=== PATIENT | female | born 1960 | race Caucasian/White ===

== ENCOUNTER 2017-08-02 11:11 | Emergency (ER) | payer OTHER, SELFPAY ==
[2017-08-02 11:12] VITALS: BP 159/83; PULSE 59; RESP 16; TEMP 36.8; O2SAT 99; BMI 38.4
[2017-08-02] MEDS: 0.9% Normal Saline 1,000 ML 1000 ML IV (12:23)
[2017-08-02] MEDS: Metoclopramide 10 MG/2 ML Vial IV (12:23)
[2017-08-02 12:35] LABS: Anion Gap 14 (5-15); BUN 41 mg/dL (7-18); BUN/Creat Ratio 16.1 RATIO (10-20); Calcium,Total 8.9 mg/dL (8.5-10.1); Chloride 100 mmol/L (98-107); Creatinine, Serum 2.55 mg/dL (0.55-1.02); EST Glomerular Filtration Rate 21 mL/min (>60); Est Glom Filt Rate - Afr Amer 25 mL/min (>60); Estimated Creatinine Clearance 19.72 ml/min; Glucose 142 mg/dL (74-106); Potassium 3.5 mmol/L (3.5-5.1); Sodium Level 135 mmol/L (136-145)
--- NOTE | 2017-08-02 15:01 | ED.DCSUM_ITS ---
- ER Visit Summary Date of Service: 08/02/17 Chief Complaint: Abdominal pain with nausea, vomiting diarrhea History of Present Illness: The patient is a [address] of type I diabetes, hypertension sent from the urgent care because of low blood pressure and elevated complaint of abdominal pain with vomiting diarrhea. She has been diabetic for 10 years. She has been on insulin for the past 2 years. Review of old records revealed that her creatinine has increased over the last 4 years. She states she does not feel well. She denies fever, chills or night sweats. She denies weight gain or weight loss. She does complain of mild nasal congestion and slight cough. She also complains of generalized weakness. Otherwise review of systems unremarkable. Physical Examination: Blood pressure is 159/83 with a heart rate of 59. ENT exam is remarkable for dry mucosa. Heart is regular without murmur, gallop or rub. Lungs are clear to auscultation. Abdomen is soft nontender. Bowel sounds are slightly diminished. She has stigmata of peripheral vascular disease lower extremity. Neuro exam is nonfocal. Test Results: BMP is remarkable for a BUN of 41 and a creatinine of 2.55. GFR is 21. March 2014 GFR was 39. March 2016 GFR was 34. Glucose is 142. CO2 and anion gap are normal. Emergency Department Course and Treatment: 10 mg of Reglan IV push and 1 L of normal saline. Patient has passed p.o. challenge. Treatment Plan: Encourage fluids and follow-up in [address] Hook for repeat BMP. Patient's been informed she should not take Advil, Aleve or medicine that are classified as NSAIDs. Disposition: Discharged home in stable and improved condition Impression: 1. Abdominal pain with nausea, vomiting diarrhea 2. Dehydration 3. Renal insufficiency question acute on chronic This note was generated with [employer] dictation software. It may contain incorrect words, spelling, and punctuation that were not noted in review of the chart prior to signing ED Disposition - Plan for ED Patient: Disposition: Home or Assisted Living Chief Complaint: General Illness Instructions: ED Vomiting Diarrhea Nonspecific Ad, ED Insufficiency Renal Referrals: Param Razo MD [Primary Care Provider] - 1 Week Additional Instructions: You should not take ibuprofen or Aleve or medicines similar to ibuprofen because it may cause renal failure
[2017-08-02 15:11] VITALS: BP 131/63; PULSE 55; RESP 16; O2SAT 98
== END 2017-08-02 15:13 | disposition home or self-care (01) ==
PROVIDERS: Emergency Provider Emergency Medicine; Family Provider Family Medicine; PCP Family Medicine
DX: R10.9 Unspecified abdominal pain (principal); R11.2 Nausea with vomiting, unspecified; R19.7 Diarrhea, unspecified; E86.0 Dehydration; N28.9 Disorder of kidney and ureter, unspecified; J34.89 Other specified disorders of nose and nasal sinuses; R09.81 Nasal congestion; R05 Cough; R23.9 Unspecified skin changes; E66.9 Obesity, unspecified; E10.9 Type 1 diabetes mellitus without complications; I10 Essential (primary) hypertension; Z79.4 Long term (current) use of insulin; Z79.899 Other long term (current) drug therapy
CPT/HCPCS: 80048; 96365; 96366; 96375; 99283; A4216

== ENCOUNTER 2018-06-14 17:04 | Inpatient (IN) | payer OTHER, MEDICAID, SELFPAY ==
[2018-06-14 17:05] VITALS: BP 188/78; PULSE 63; RESP 16; TEMP 37; O2SAT 95; BMI 39.3
--- NOTE | 2018-06-14 17:36 | EKG12_ITS ---
Test Reason : LOWER EXTREMETIES Blood Pressure : / mmHG Vent. Rate : 061 BPM Atrial Rate : 061 BPM P-R Int : 168 ms QRS Dur : 096 ms QT Int : 434 ms P-R-T Axes : 027 -04 065 degrees QTc Int : 436 ms Normal sinus rhythm Voltage criteria for left ventricular hypertrophy Cannot rule out Septal infarct , age undetermined Abnormal ECG Confirmed by CORDELIA KRUSE, DORINA ([id number]), videotape editor DONNA PENA ([id number]) on 06/18/2018 1:21:40 PM Referred By: WAGNER Confirmed By:DORINA STOREY MD
[2018-06-14] MEDS: 0.9% Normal Saline 1,000 ML 1000 ML IV (17:59)
[2018-06-14] MEDS: Morphine 4 MG/ML Syringe IV (18:00)
[2018-06-14] MEDS: Ondansetron 4 MG/2 ML Vial IV (18:01)
[2018-06-14 18:11] LABS: Absolute Lymphocyte Count 1.57 X10^3/ul (0.83-4.51); Absolute Neutrophil Count 6.6 X10^3/uL (2.0-7.7); Basophil# 0.03 X10^3/uL; Basophil% 0.3 % (0-1); Eosinophil# 0.28 X10^3/uL; Hemoglobin 10.3 g/dl (12.0-15.0); Lymphocyte # 1.57 X10^3/ul (4.0); Lymphocyte % 16.8 % (19-41); Mean Corp Hgb Conc 32.2 g/gl (32-36); Mean Corpuscular Hgb 26.3 pg (27.0-32.0); Mean Corpuscular Volume 81.8 fL (81-99); Mean Platelet Vol. 10.5 fl (6.2-12.0); Monocyte# 0.74 X10^3/uL; Monocyte% 7.9 % (0-10); Neutrophil # 6.63 X10^3/uL (2.7-7.7); Platelet Count 318 K/mm3 (150-450); RBC Distribution Width SD 44.2 fl (35.1-43.9); Red Blood Count 3.91 M/mm3 (4.2-5.4); White Blood Count 9.3 K/mm3 (4.4-11.0)
[2018-06-14 18:12] LABS: POSITIVE COUNT NO; POSITIVE DIFFERENTIAL NO; POSITIVE MORPHOLOGY NO
--- NOTE | 2018-06-14 18:15 | RAD_ITS ---
STUDY: X-RAY - LEFT KNEE REASON FOR EXAM: Female, 58 years old. Fall, left knee pain. TECHNIQUE: 3 view(s) of the knee. COMPARISON: None. FINDINGS: Degenerative periarticular spurring of the femoral condyles. There is degenerative particular spurring of the tibial plateaus and, to a lesser degree, the tibial spines. Normal visualized proximal fibula. There is degenerative periarticular spurring at the base and apex of the patella. There is no demonstrated fracture. There is degenerative arthrosis of the medial femorotibial compartment with moderate joint space narrowing. Normal lateral femorotibial joint space. There is moderately severe degenerative arthrosis of the patellofemoral articulation. There is 2. Mild arthrosis of the proximal tibiofibular articulation. There is a soft tissue prominence in the suprapatellar region suggesting a very small volume joint effusion. There is mild stranding in the anterolateral subcutaneous tissues. RAD/Knee 3 Views IMPRESSION: Tricompartmental degenerative arthrosis of the knee, with very small suprapatellar joint effusion. No acute fracture of the left knee. Electronically Signed: Blue Velasquez MD at 19:18 EST , Service support ,
[2018-06-14 18:29] LABS: Anion Gap 9 (5-15); BUN 45 mg/dL (7-18); BUN/Creat Ratio 15.8 RATIO (10-20); Calcium,Total 8.5 mg/dL (8.5-10.1); Chloride 109 mmol/L (98-107); Creatinine, Serum 2.84 mg/dL (0.55-1.02); EST Glomerular Filtration Rate 18 mL/min (>60); Est Glom Filt Rate - Afr Amer 22 mL/min (>60); Estimated Creatinine Clearance 17.49 ml/min; Glucose 53 mg/dL (74-106); Potassium 3.3 mmol/L (3.5-5.1); Sodium Level 141 mmol/L (136-145)
[2018-06-14 18:46] LABS: Bedside Glucose 24 mg/dL (70-110)
[2018-06-14] MEDS: Dextrose 50%-Water 25 GM/50 ML DISP.SYRIN IV (18:48)
--- NOTE | 2018-06-14 19:09 | ED.VISSUMM ---
- ER Visit Summary Date of Service: 06/14/18 Chief Complaint: [Fall and left leg injury] History of Present Illness: The patient is a 58 F [presents the emergency department complaint of a fall that occurred this afternoon. Patient states that she was coming back from the bathroom with the help of her son when she fell and injured her left knee. Patient states both legs just kind of gave out. Patient was unable to stand afterwards and EMS had to be called. Patient had multiple falls recently and states that over the last month she has been in a wheelchair due to pain and weakness in her knees and lower extremities. Patient states that she needs to have knee replacements to both her knees but because of her other medical conditions has not been able to follow through with that. Patient denies any chest pain or shortness of breath. She denies any urinary symptoms. Patient does have a history of diabetes, hypertension, high cholesterol, chronic kidney disease.] Physical Examination: [HEENT-PERRLA, EOMI. Cranial nerves II through XII grossly intact. TMs clear. Mucous membranes moist. No adenopathy. Cardiovascular-regular rate and rhythm without murmur or ectopy Lungs-clear to auscultation, chest wall stable without crepitus or subcu emphysema Abdomen-normoactive bowel sounds, soft, nontender, no rebound or rigidity, no peritoneal signs. Extremities-intact ?4, normal range of motion, normal pulses. Left knee-patient does have some faint ecchymosis to the medial aspect of the knee. Patient has pain with flexion extension of the knee. She does not tolerate ligamentous exam. She is neurovascular intact distally. No obvious deformity. Patient also has tenderness to the right knee without any evidence of ecchymosis or bruising or deformity. Test Results: CBC with differential obtained showed a white count of 9.3, hemoglobin 10, hematocrit 32, platelet 318. Chemistry showed a sodium 141, potassium 3.3, chloride 109, CO2 23, glucose was 53, BUN 45, creatinine 2.8. Troponin is less than 0.015. EKG obtained arrival shows sinus rhythm with a ventricular rate of 61 bpm with some LVH noted. X-rays of the left knee read by myself as degenerative changes but no evidence for fracture or dislocation. [] Emergency Department Course and Treatment: [Patient received normal saline and morphine and Zofran for pain. Patient on the emergency department began not feeling well and diaphoretic and blood sugar was checked it was noted to be in the 20s therefore she was given an amp of D50.] Treatment Plan: [Patient will be admitted as she is requesting admission for possible placement to rehab or extended care facility as her family can no longer care for her.] Disposition: [Admit] Impression: [Multiple falls Generalized weakness Chronic knee pain Hypoglycemic episode] This note was generated with [employer] dictation software. It may contain incorrect words, spelling, and punctuation that were not noted in review of the chart prior to signing ED Disposition - Plan for ED Patient: Chief Complaint: Lower Extremity Injury Referrals: Param Razo MD [Primary Care Provider] -
--- NOTE | 2018-06-14 19:12 | HP.PCM_ITS ---
History of Present Illness The patient is a 58 year old F with a significant history of hypertension, diabetes, CKD, hyperlipidemia who came to the hospital because of a fall. Patient fell on the day of admission. And before this time she has had multiple falls. Patient supposed to have a bilateral knee replacement because her legs has been giving up. However because of multiple medical issues this has not been able to set up. Patient lives with her son and her were been trying to help her. On the day of admission patient fell to the bathroom and her son could not help her get up because it was difficult for patient to get up. For about a month also patient has been using a wheelchair. Her PCP called emergency department doctor and patient was brought to the emergency department. Past Medical History Past Medical History (Chronic Problems): Chronic Problems Edema (Chronic) HTN (hypertension) (Chronic) Obesity (Chronic) DM2 (diabetes mellitus, type 2) (Chronic) Allergies codeine Allergy (Verified 06/14/18 17:11) Other CONFUSION latex Allergy (Verified 06/14/18 17:11) Hives Sulfa (Sulfonamide Antibiotics) Allergy (Verified 06/14/18 17:11) Rash Home Medications: Ambulatory Orders Medication Instructions Recorded Montelukast [Singulair] 10 mg PO QHS 10/29/13 Multivitamins,Therapeutic 1 tablet PO DAILY 10/29/13 [Multivitamin] Simvastatin [Zocor] 40 mg PO QHS 10/29/13 Fenofibrate [Tricor] 145 mg PO DAILY #30 tablet 11/01/13 Atenolol [Tenormin (beta airam)] 100 mg PO DAILY 01/27/14 Insulin Aspart [Novolog Flexpen] 30 units SC TIDCM 01/27/14 Sertraline HCl [Zoloft] 100 mg PO DAILY 08/02/17 Gabapentin [Neurontin] 300 mg PO QHS 06/14/18 Insulin Degludec [Tresiba 50 units SQ QHS 06/14/18 Flextouch U-100] Lisinopril 40 mg PO DAILY 06/14/18 Surgical History: cholecystectomy, - - Tubal ligation Smoking Status: Never smoker - Physical Exam Vital Signs Temp Pulse Resp BP Pulse Ox 98.6 F 63 16 188/78 H 95 06/14/18 17:05 06/14/18 17:05 06/14/18 17:05 06/14/18 17:05 06/14/18 17:05 Oxygen Delivery Method Room Air Weight: 97.522 kg Body Mass Index (BMI) 39.3 Laboratory Tests Past 24 Hrs 06/14/18 06/14/18 18:00 18:00 WBC 9.3 RBC 3.91 L Hgb 10.3 L Hct 32.0 L MCV 81.8 MCH 26.3 L MCHC 32.2 RDW 15.0 H RDW Differential 44.2 H Plt Count 318 MPV 10.5 Immature Gran % (Auto) 1.000 H Neut % (Auto) 71.0 H Lymph % (Auto) 16.8 L [place] % (Auto) 7.9 Eos % (Auto) 3.0 Baso % (Auto) 0.3 Absolute Neuts (auto) 6.6 Absolute Lymphs (auto) 1.57 Total Counted Not Reportable Sodium 141 Potassium 3.3 L Chloride 109 H Carbon Dioxide 23.0 Anion Gap 9 BUN 45 H Creatinine 2.84 H Estim Creat Clear Calc 17.49 Est GFR (MDRD) Af Amer 22 L Est GFR (MDRD) Non-Af 18 L BUN/Creatinine Ratio 15.8 Glucose 53 L Calcium 8.5 Troponin I < 0.015 POC Glucose 06/14/18 18:42 POC Glucose 24 L* Assessment/Plan All Active Problems Diabetes mellitus type 2, uncontrolled, with complications (Acute) Pancreatitis, acute (Acute) ARF (acute renal failure) (Acute) Nonhealing ulcer of lower extremity with fat layer exposed (Resolved)
[2018-06-14 19:23] LABS: Bacteria 0 SEEN /hpf (None Seen); Mucous, Urine 0 SEEN /hpf (<or=2+); Squamous Epithelial Cells - UA 0 SEEN /hpf (5-10)
[2018-06-14 19:25] VITALS: BP 159/66; PULSE 60; RESP 17; O2SAT 95
[2018-06-14 19:27] VITALS: BMI 39.3
[2018-06-14 19:31] LABS: Color, Urine Yellow (Yellow); Glucose, Dipstick 1000 mg/dl (Normal); Ketone-Dipstick Negative (Negative); Leukocyte Esterase-Dipstick Negative /ul (Negative); Nitrite-Dipstick Negative (Negative); Occult Blood-Urine 25 /ul (Negative); Protein-Dipstick 500 mg/dl (Negative); Urine Bilirubin Dipstick Negative (Negative); Urine Clarity Cloudy (Clear); Urine Urobilinogen Normal (Normal); Urine pH 6.5 (5.0 - 8.0)
[2018-06-14 19:40] LABS: Hyaline Cast 0-5 SEEN /lpf (0-5)
[2018-06-14 19:42] LABS: Red Blood Cells-Urine 0-5 SEEN /hpf (0-5); White Blood Cells 5-10 SEEN /hpf (0-5)
[2018-06-14 19:44] LABS: Amorphous Sediment 1+
--- NOTE | 2018-06-14 19:58 | ED.RN ---
Addendum entered by Sharon Staples 06/14/18 20:01: AWARE. Original Note: PT DEMANDS HAAS CATHETER, STATES SHE CANNOT USE BEDSIDE COMMODE TO OBTAIN CLEAN CATCH URINE. INSISTS ON KEEPING HAAS IN AT THIS TIME, STATES SHE CANNOT TRANSFER OUT OF BED TO USE BSC OR BATHROOM. HAAS CATHETER USED FOR URINE SPECIMEN, LEFT IN AT THIS TIME. PT EDUCATED ON RISKS OF HAVING HAAS LONGER THAN NECESSARY.
--- NOTE | 2018-06-14 20:02 | PCM.HP.STD ---
Problem List (1) Hyperlipidemia Status: Chronic (2) Chronic kidney disease Status: Chronic (3) HTN (hypertension) Status: Chronic (4) Obesity Status: Chronic (5) DM2 (diabetes mellitus, type 2) Status: Chronic Qualifiers: Diabetes mellitus complication status: with skin complications History of Present Illness Date of Admission: 06/14/18 Chief Complaint: Fall, left knee pain. The patient is a 58 year old F with past medical history as mentioned above presented to the emergency room because of fall and left knee pain. Patient stated that she was coming back from the bathroom, her left knee gave out and she fell on her left knee. After she fell down, she was not able to get up and her son tried multiple times to help her but he could not. She complained of left knee pain, throbbing pain, 7 out of 10 in severity, not radiating, aggravated by movement, relieved by rest and without associated symptoms. She mentioned that she had a history of osteoarthritis of both knees, more prominent on the right knee but this time, her pain was more severe on the left knee. She is supposed to go for knee replacement as outpatient but that was delayed because of uncontrolled diabetes. She denied any prodromal symptoms before she had a fall. Initially, the patient decided not to come to the emergency department but the home health nurse came in later and she advised her to come to the ED for evaluation. In the emergency room, her blood pressure was elevated, other vital signs are stable. Her routine blood work was remarkable for chronic anemia with stable hemoglobin, potassium of 3.3 and creatinine of 2.84. Her troponin was negative. EKG revealed sinus rhythm without evidence of acute ischemic changes. Her blood sugar was 53 and repeat blood sugar was 24 mg/dL. She was given 1 ampoule of D50 IV in the ER. X-ray of the left knee revealed arthritic changes of the left knee with small joint effusion, no acute fractures. She is being admitted for frequent falls, intractable left knee pain, physical debility and hypoglycemia. Past Medical History Past Medical History (Chronic Problems): Chronic Problems Hyperlipidemia (Chronic) Chronic kidney disease (Chronic) HTN (hypertension) (Chronic) Obesity (Chronic) DM2 (diabetes mellitus, type 2) (Chronic) Allergies codeine Allergy (Verified 06/14/18 17:11) Other CONFUSION latex Allergy (Verified 06/14/18 17:11) Hives Sulfa (Sulfonamide Antibiotics) Allergy (Verified 06/14/18 17:11) Rash Home Medications: Ambulatory Orders Medication Instructions Recorded Montelukast [Singulair] 10 mg PO QHS 10/29/13 Simvastatin [Zocor] 40 mg PO QHS 10/29/13 Fenofibrate [Tricor] 145 mg PO DAILY #30 tablet 11/01/13 Insulin Aspart [Novolog Flexpen] 30 units SC TIDCM 01/27/14 Acetaminophen [Tylenol Arthritis] 1,300 mg PO DAILY MDD PAIN 06/14/18 Atenolol [Tenormin (beta airam)] 100 mg PO DAILY 06/14/18 Gabapentin [Neurontin] 300 mg PO QHS 06/14/18 Insulin Degludec [Tresiba 50 units SQ QHS 06/14/18 Flextouch U-100] Lisinopril 40 mg PO DAILY 06/14/18 Multivit-Min/Iron/Folic/Lutein 1 tab PO DAILY 06/14/18 [Centrum Silver Women Tablet] Sertraline HCl 100 mg PO DAILY 06/14/18 Surgical History: cholecystectomy, - - Tubal ligation Psychiatric History: Depression [employer] History: No pertinent [employer] history Lives: Spouse/ Significant Other Smoking Status: Never smoker Alcohol: None Drugs: None - *Family History Maternal History Items: No pertinent history Paternal History Items: No pertinent history Review of Systems Constitutional: Reports: Weakness. Denies: Anorexia, Chills, Fever Eyes: Denies: Blurred vision, Double vision, Drainage, Vision Change HEENT: Denies: Difficulty Hearing, Ear Pain, Eye Pain, Nasal Congestion, Visual Changes Cardiovascular: Denies: Chest Pain, Chest Pressure, Heaviness, Light Headedness, Palpitations, Syncope Respiratory: Denies: Cough, Pleuritic Pain, Shortness of Breath, Sputum production, Wheezing Gastrointestinal: Denies: Abdominal Pain, Constipation, Diarrhea, Nausea, Vomiting Genitourinary: Denies: Dysuria, Frequency, Hematuria Musculoskeletal: Reports: Joint Pain. Denies: Arm Pain, Back Pain, Foot Pain Skin: Denies: Dryness, Rash Neurological: Denies: Balance problems, Blurred vision, Double vision, Change in Speech, Slurred speech, Confusion, Headaches, Incoordination Psychiatric: Reports: Depression. Denies: Anxiety Endocrine: Denies: Change in Body Habitus, Polydipsia VTE Information - Inpt Only VTE Present on Admission: No VTE Mechan Device Prophylaxis: None VTE Pharm Prophylaxis ordered?: Yes - Physical Exam General: Alert, Oriented x3, Cooperative, - - She is in moderate pain. HEENT: Atraumatic, PERRLA, EOMI, Normocephalic Oral: Moist Mucosa, No Gingival or Mucosal Lesions/ Ulcerations Neck: Supple, No JVD, Negative Carotid Bruits, Trachea Midline, Thyroid Normal Size and Texture Lungs: Clear to auscultation, Normal air movement, No rhonchi, No wheeze, No rales, Diminished Cardiovascular: Regular rate, Regular Rhythm, Normal S1, Normal S2, PMI Normal Abdomen: Bowel Sounds Present, Soft, Non Tender, Non-Distended, No Hepato-splenomegaly Extremities: No clubbing, No cyanosis, No edema, - - Both knees are swollen, more on the left side, left knee is tender to palpation, no open wounds or drainage. Skin: No rashes, No breakdown Lymphatic: No Cervical, Supraclavicular, or Inguinal Adenopathy Neurological: Cranial nerves II-XII grossly intact, Motor Exam 5/5 strength throughout Psych/Mental Status: Normal Affect, Appropriate, Alert and oriented to time, place, person, mood and affect Vital Signs Temp Pulse Resp BP Pulse Ox 98.6 F 60 17 159/66 H 95 06/14/18 17:05 06/14/18 19:25 06/14/18 19:25 06/14/18 19:25 06/14/18 19:25 Oxygen Delivery Method Room Air Weight: 215 lb Body Mass Index (BMI) 39.3 Laboratory Tests Past 24 Hrs 06/14/18 06/14/18 06/14/18 18:00 18:00 19:15 WBC 9.3 RBC 3.91 L Hgb 10.3 L Hct 32.0 L MCV 81.8 MCH 26.3 L MCHC 32.2 RDW 15.0 H RDW Differential 44.2 H Plt Count 318 MPV 10.5 Immature Gran % (Auto) 1.000 H Neut % (Auto) 71.0 H Lymph % (Auto) 16.8 L [place] % (Auto) 7.9 Eos % (Auto) 3.0 Baso % (Auto) 0.3 Absolute Neuts (auto) 6.6 Absolute Lymphs (auto) 1.57 Total Counted Not Reportable Sodium 141 Potassium 3.3 L Chloride 109 H Carbon Dioxide 23.0 Anion Gap 9 BUN 45 H Creatinine 2.84 H Estim Creat Clear Calc 17.49 Est GFR (MDRD) Af Amer 22 L Est GFR (MDRD) Non-Af 18 L BUN/Creatinine Ratio 15.8 Glucose 53 L Calcium 8.5 Troponin I < 0.015 Urine Color Yellow Urine Clarity Cloudy Urine pH 6.5 Ur Specific [place] 1.010 Urine Protein 500 H Urine Glucose (UA) 1000 H Urine Ketones Negative Urine Occult Blood 25 H Urine Nitrite Negative Urine Bilirubin Negative Urine Urobilinogen Normal Ur Leukocyte Esterase Negative Urine RBC 0-5 SEEN Urine WBC 5-10 SEEN Ur Squamous Epith Cells 0 SEEN Amorphous Sediment 1+ Urine Bacteria 0 SEEN Hyaline Casts 0-5 SEEN Urine Mucus 0 SEEN POC Glucose 06/14/18 18:42 POC Glucose 24 L* Clinical Impression(s) from Imaging Studies Knee X-Ray 06/14/18 18:15 IMPRESSION: Tricompartmental degenerative arthrosis of the knee, with very small suprapatellar joint effusion. No acute fracture of the left knee. Electronically Signed: Blue Velasquez MD at 19:18 EST , Service support , Assessment/Plan This is a 58 years old female patient presented to the medicine because of fall, left knee pain in context of frequent falls due to osteoarthritis of the both knees and she was found to have hypoglycemia as well as probably worsening chronic kidney disease. #1 frequent falls/intractable left knee pain/bilateral osteoarthritis of the knees: X-ray of the left knee revealed arthritic changes, no acute fractures. Patient did mention that she had bilateral knee osteoarthritis and she supposed to go for knee replacement. She mentioned that she has been not able to ambulate lately at home, difficulty ambulating. Plan: Admit to MedSurg floor, ambulate as tolerated, IV morphine as needed for pain, OxyIR as needed, IV antiemetics, gentle IV fluids for hydration, repeat CBC and BMP tomorrow morning, PT OT evaluation and treatment, patient probably will need placement to [facility]. #2 hypoglycemia: She admitted that she did not eat her lunch today and usually, her blood sugars not well controlled. That is why her knee replacement surgery was delayed. In the ED, blood sugar was 53 and 24 mg/dL. She was given 1 ampoule of D50. Plan: Accu-Cheks every 4 hours, insulin sliding scale, hold her pre-meal and degludec insulin, hemoglobin A1c. #3 mild hypokalemia: Potassium is 3.3. We will increase potassium with oral K Dur, repeat BMP tomorrow morning. #4 chronic kidney disease: Her care has been fluctuating, most recent creatinine was from July, was 2.55. Before that, creatinine has been around 1.5 mg/dL. Her GFR has been declining. Plan: Gentle IV fluids for hydration, input output chart, repeat BMP tomorrow morning, hold nephrotoxic drugs. #5 uncontrolled type 2 diabetes mellitus: Plan as above, Accu-Cheks, hold insulin, insulin sliding scale, hemoglobin A1c. #6 hypertension: Initially, blood pressure was elevated which is likely because of the pain. Plan to continue atenolol, hold lisinopril, start IV hydralazine as needed. #7 hyperlipidemia: Continue statins. #8 depression: Continue sertraline. #9 DVT prophylaxis: Subcu heparin. This note was generated with [employer] dictation software. It may contain incorrect words, spelling, and punctuation that were not noted in checking the note before signing. Code Visit Inpatient E&M: 33659 Init Hosp L3
--- NOTE | 2018-06-14 20:07 | HP.PCM_ITS ---
Problem List (1) Hyperlipidemia Status: Chronic (2) Chronic kidney disease Status: Chronic (3) HTN (hypertension) Status: Chronic (4) Obesity Status: Chronic (5) DM2 (diabetes mellitus, type 2) Status: Chronic Qualifiers: Diabetes mellitus complication status: with skin complications History of Present Illness Date of Admission: 06/14/18 Chief Complaint: Fall, left knee pain. The patient is a 58 year old F with past medical history as mentioned above pr esented to the emergency room because of fall and left knee pain. Patient stated that she was coming back from the bathroom, her left knee gave out and she fell on her left knee. After she fell down, she was not able to get up and her son tried multiple times to help her but he could not. She complained of left knee pain, throbbing pain, 7 out of 10 in severity, not radiating, aggravated by movement, relieved by rest and without associated symptoms. She mentioned that she had a history of osteoarthritis of both knees, more prominent on the right knee but this time, her pain was more severe on the left knee. She is supposed to go for knee replacement as outpatient but that was delayed because of uncontrolled diabetes. She denied any prodromal symptoms before she had a fall. Initially, the patient decided not to come to the emergency department but the home health nurse came in later and she advised her to come to the ED for evaluation. In the emergency room, her blood pressure was elevated, other vital signs are stable. Her routine blood work was remarkable for chronic anemia with stable hemoglobin, potassium of 3.3 and creatinine of 2.84. Her troponin was negative. EKG revealed sinus rhythm without evidence of acute ischemic changes. Her blood sugar was 53 and repeat blood sugar was 24 mg/dL. She was given 1 ampoule of D50 IV in the ER. X-ray of the left knee revealed arthritic changes of the left knee with small joint effusion, no acute fractures. She is being admitted for frequent falls, intractable left knee pain, physical debility and hypoglycemia. Past Medical History Past Medical History (Chronic Problems): Chronic Problems Hyperlipidemia (Chronic) Chronic kidney disease (Chronic) HTN (hypertension) (Chronic) Obesity (Chronic) DM2 (diabetes mellitus, type 2) (Chronic) Allergies codeine Allergy (Verified 06/14/18 17:11) Other CONFUSION latex Allergy (Verified 06/14/18 17:11) Hives Sulfa (Sulfonamide Antibiotics) Allergy (Verified 06/14/18 17:11) Rash Home Medications: Ambulatory Orders Medication Instructions Recorded Montelukast [Singulair] 10 mg PO QHS 10/29/13 Simvastatin [Zocor] 40 mg PO QHS 10/29/13 Fenofibrate [Tricor] 145 mg PO DAILY #30 tablet 11/01/13 Insulin Aspart [Novolog Flexpen] 30 units SC TIDCM 01/27/14 Acetaminophen [Tylenol Arthritis] 1,300 mg PO DAILY [facility] PAIN 06/14/18 Atenolol [Tenormin (beta airam)] 100 mg PO DAILY 06/14/18 Gabapentin [Neurontin] 300 mg PO QHS 06/14/18 Insulin Degludec [Tresiba 50 units SQ QHS 06/14/18 Flextouch U-100] Lisinopril 40 mg PO DAILY 06/14/18 Multivit-Min/Iron/Folic/Lutein 1 tab PO DAILY 06/14/18 [Centrum Silver Women Tablet] Sertraline HCl 100 mg PO DAILY 06/14/18 Surgical History: cholecystectomy, - - Tubal ligation Psychiatric History: Depression 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 Denies: Anorexia, Chills, Fever Eyes: Denies: Blurred vision, Double vision, Drainage, Vision Change HEENT: Denies: Difficulty Hearing, Ear Pain, Eye Pain, Nasal Congestion, Visual Changes Cardiovascular: Denies: Chest Pain, Chest Pressure, Heaviness, Light Headedness, Palpitations, Syncope Respiratory: Denies: Cough, Pleuritic Pain, Shortness of Breath, Sputum production, Wheezing Gastrointestinal: Denies: Abdominal Pain, Constipation, Diarrhea, Nausea, Vomiting Genitourinary: Denies: Dysuria, Frequency, Hematuria Musculoskeletal: Reports: Joint Pain. Denies: Arm Pain, Back Pain, Foot Pain Skin: Denies: Dryness, Rash Neurological: Denies: Balance problems, Blurred vision, Double vision, Change in Speech, Slurred speech, Confusion, Headaches, Incoordination Psychiatric: Reports: Depression. Denies: Anxiety Endocrine: Denies: Change in Body Habitus, Polydipsia VTE Information - Inpt Only VTE Present on Admission: No VTE Mechan Device Prophylaxis: None VTE Pharm Prophylaxis ordered?: Yes - Physical Exam General: Alert, Oriented x3, Cooperative, - - She is in moderate pain. HEENT: Atraumatic, PERRLA, EOMI, Normocephalic Oral: Moist Mucosa, No Gingival or Mucosal Lesions/ Ulcerations Neck: Supple, No JVD, Negative Carotid Bruits, Trachea Midline, Thyroid Normal Size and Texture Lungs: Clear to auscultation, Normal air movement, No rhonchi, No wheeze, No rales, Diminished Cardiovascular: Regular rate, Regular Rhythm, Normal S1, Normal S2, PMI Normal Abdomen: Bowel Sounds Present, Soft, Non Tender, Non-Distended, No Hepato- splenomegaly Extremities: No clubbing, No cyanosis, No edema, - - Both knees are swollen, more on the left side, left knee is tender to palpation, no open wounds or drainage. Skin: No rashes, No breakdown Lymphatic: No Cervical, Supraclavicular, or Inguinal Adenopathy Neurological: Cranial nerves II-XII grossly intact, Motor Exam 5/5 strength throughout Psych/Mental Status: Normal Affect, Appropriate, Alert and oriented to time, place, person, mood and affect Vital Signs Temp Pulse Resp BP Pulse Ox 98.6 F 60 17 159/66 H 95 06/14/18 17:05 06/14/18 19:25 06/14/18 19:25 06/14/18 19:25 06/14/18 19:25 Oxygen Delivery Method Room Air Weight: 215 lb Body Mass Index (BMI) 39.3 Laboratory Tests Past 24 Hrs 06/14/18 06/14/18 06/14/18 18:00 18:00 19:15 WBC 9.3 RBC 3.91 L Hgb 10.3 L Hct 32.0 L MCV 81.8 MCH 26.3 L MCHC 32.2 RDW 15.0 H RDW Differential 44.2 H Plt Count 318 MPV 10.5 Immature Gran % (Auto) 1.000 H Neut % (Auto) 71.0 H Lymph % (Auto) 16.8 L Frio % (Auto) 7.9 Eos % (Auto) 3.0 Baso % (Auto) 0.3 Absolute Neuts (auto) 6.6 Absolute Lymphs (auto) 1.57 Total Counted Not Reportable Sodium 141 Potassium 3.3 L Chloride 109 H Carbon Dioxide 23.0 Anion Gap 9 BUN 45 H Creatinine 2.84 H Estim Creat Clear Calc 17.49 Est GFR (MDRD) Af Amer 22 L Est GFR (MDRD) Non-Af 18 L BUN/Creatinine Ratio 15.8 Glucose 53 L Calcium 8.5 Troponin I < 0.015 Urine Color Yellow Urine Clarity Cloudy Urine pH 6.5 Ur Specific [place] 1.010 Urine Protein 500 H Urine Glucose (UA) 1000 H Urine Ketones Negative Urine Occult Blood 25 H Urine Nitrite Negative Urine Bilirubin Negative Urine Urobilinogen Normal Ur Leukocyte Esterase Negative Urine RBC 0-5 SEEN Urine WBC 5-10 SEEN Ur Squamous Epith Cells 0 SEEN Amorphous Sediment 1+ Urine Bacteria 0 SEEN Hyaline Casts 0-5 SEEN Urine Mucus 0 SEEN POC Glucose 06/14/18 18:42 POC Glucose 24 L* Clinical Impression(s) from Imaging Studies Knee X-Ray 06/14/18 18:15 IMPRESSION: Tricompartmental degenerative arthrosis of the knee, with very small suprapatellar joint effusion. No acute fracture of the left knee. Electronically Signed: Blue Velasquez MD at 19:18 EST , Service support , Assessment/Plan This is a 58 years old female patient presented to the medicine because of fall, left knee pain in context of frequent falls due to osteoarthritis of the both knees and she was found to have hypoglycemia as well as probably worsening chronic kidney disease. #1 frequent falls/intractable left knee pain/bilateral osteoarthritis of the knees: X-ray of the left knee revealed arthritic changes, no acute fractures. Patient did mention that she had bilateral knee osteoarthritis and she supposed to go for knee replacement. She mentioned that she has been not able to ambulate lately at home, difficulty ambulating. Plan: Admit to MedSurg floor, ambulate as tolerated, IV morphine as needed for pain, OxyIR as needed, IV antiemetics, gentle IV fluids for hydration, repeat CBC and BMP tomorrow morning, PT OT evaluation and treatment, patient probably will need placement to long-term facility. #2 hypoglycemia: She admitted that she did not eat her lunch today and usually, her blood sugars not well controlled. That is why her knee replacement surgery was delayed. In the ED, blood sugar was 53 and 24 mg/dL. She was given 1 ampoule of D50. Plan: Accu-Cheks every 4 hours, insulin sliding scale, hold her pre-meal and degludec insulin, hemoglobin A1c. #3 mild hypokalemia: Potassium is 3.3. We will increase potassium with oral K Dur, repeat BMP tomorrow morning. #4 chronic kidney disease: Her care has been fluctuating, most recent creatinine was from July, was 2.55. Before that, creatinine has been around 1.5 mg/dL. Her GFR has been declining. Plan: Gentle IV fluids for hydration, input output chart, repeat BMP tomorrow morning, hold nephrotoxic drugs. #5 uncontrolled type 2 diabetes mellitus: Plan as above, Accu-Cheks, hold insulin, insulin sliding scale, hemoglobin A1c. #6 hypertension: Initially, blood pressure was elevated which is likely because of the pain. Plan to continue atenolol, hold lisinopril, start IV hydralazine as needed. #7 hyperlipidemia: Continue statins. #8 depression: Continue sertraline. #9 DVT prophylaxis: Subcu heparin. This note was generated with [employer] dictation software. It may contain incorrect words, spelling, and punctuation that were not noted in checking the note before signing. Code Visit Inpatient E&M: 59190 Init Hosp L3
[2018-06-14 20:21] LABS: Bedside Glucose 69 mg/dL (70-110)
[2018-06-14 20:45] VITALS: BMI 40.2
[2018-06-14 20:48] VITALS: BP 159/65; PULSE 56; RESP 16; TEMP 36.6; O2SAT 97
[2018-06-14] MEDS: 0.9% Normal Saline 1,000 ML 75 ML IV (21:11)
[2018-06-14 21:25] LABS: Bedside Glucose 91 mg/dL (70-110)
[2018-06-14] MEDS: Montelukast 10 MG Tablet PO (21:30)
[2018-06-14] MEDS: Atorvastatin Calcium 20 MG Tablet PO (21:30)
[2018-06-14] MEDS: Gabapentin 300 MG Capsule PO (21:30)
[2018-06-14] MEDS: Heparin Injection (Vial) 5,000 UNIT/ML VIAL 5000 UNIT SC (21:30)
[2018-06-14 22:00] VITALS: PULSE 60
[2018-06-15] VITALS (14 sets, daily range): BP systolic 143–191; BP diastolic 67–87; PULSE 58–69; RESP 16–18; TEMP 36.4–36.9; O2SAT 96–98
[2018-06-15 01:26] LABS: Bedside Glucose 93 mg/dL (70-110)
[2018-06-15 04:56] LABS: Bedside Glucose 110 mg/dL (70-110)
[2018-06-15] MEDS: oxyCODONE 5 MG Tablet PO ×2 (05:53→16:20)
[2018-06-15 06:28] LABS: Absolute Lymphocyte Count 1.66 X10^3/ul (0.83-4.51); Absolute Neutrophil Count 4.6 X10^3/uL (2.0-7.7); Basophil# 0.04 X10^3/uL; Basophil% 0.5 % (0-1); Eosinophil# 0.26 X10^3/uL; Eosinophils% 3.5 % (0-5); Hematocrit 30.3 % (37-47); Hemoglobin 9.5 g/dl (12.0-15.0); Lymphocyte # 1.66 X10^3/ul (4.0); Lymphocyte % 22.6 % (19-41); Mean Corp Hgb Conc 31.4 g/gl (32-36); Mean Corpuscular Hgb 26.5 pg (27.0-32.0); Mean Corpuscular Volume 84.4 fL (81-99); Mean Platelet Vol. 11.2 fl (6.2-12.0); Monocyte# 0.68 X10^3/uL; Monocyte% 9.3 % (0-10); Neutrophil # 4.64 X10^3/uL (2.7-7.7); Neutrophil % 63.3 % (47-70); Platelet Count 256 K/mm3 (150-450); RBC Distribution Width CV 14.9 % (11.6-14.6); RBC Distribution Width SD 44.8 fl (35.1-43.9); Red Blood Count 3.59 M/mm3 (4.2-5.4); White Blood Count 7.3 K/mm3 (4.4-11.0)
[2018-06-15 06:40] LABS: BUN 44 mg/dL (7-18); Creatinine, Serum 2.53 mg/dL (0.55-1.02); EST Glomerular Filtration Rate 21 mL/min (>60); Estimated Creatinine Clearance 20.54 ml/min; Glucose 124 mg/dL (74-106); POSITIVE COUNT NO; POSITIVE DIFFERENTIAL NO; POSITIVE MORPHOLOGY NO
[2018-06-15 06:41] LABS: Anion Gap 9 (5-15); BUN/Creat Ratio 17.4 RATIO (10-20); Calcium,Total 8.1 mg/dL (8.5-10.1); Chloride 114 mmol/L (98-107); Est Glom Filt Rate - Afr Amer 25 mL/min (>60); Potassium 4.3 mmol/L (3.5-5.1); Sodium Level 144 mmol/L (136-145)
[2018-06-15] MEDS: Sertraline 100 MG Tablet PO (09:40)
[2018-06-15] MEDS: Heparin Injection (Vial) 5,000 UNIT/ML VIAL 5000 UNIT SC ×2 (09:40→21:43)
[2018-06-15] MEDS: Atenolol 100 MG Tablet PO (09:40)
[2018-06-15] MEDS: 0.9% Normal Saline 1,000 ML 75 ML IV ×2 (09:51→23:39)
--- NOTE | 2018-06-15 10:00 | PCM.PN.HOSP ---
Patient Problems: Active and Suspected Problems Debility (Acute) Subjective: Still with knee pain. States that she has had progressive weakness in her legs--no strength. Vitals/I&O's: Vital Signs Temp Pulse Resp BP Pulse Ox 36.5 C L 60 16 143/68 H 97 06/15/18 04:11 06/15/18 05:58 06/15/18 04:11 06/15/18 04:11 06/15/18 04:11 Oxygen Delivery Method Room Air Weight: 103 kg Body Mass Index (BMI) 40.2 Intake and Output for Last 24 Hours 06/13/18 06/14/18 06/15/18 23:59 23:59 23:59 Intake Total 527 / 527 454 / 454 Output Total 500 / 500 200 / 200 Balance 254 / 254 General: Alert, No apparent distress HEENT: Atraumatic, Normocephalic Oral: Moist Mucosa, No Gingival or Mucosal Lesions/ Ulcerations Neck: No Nodes, Thyroid Normal Size and Texture Lungs: Clear to auscultation, Normal air movement, No rhonchi, No wheeze Cardiovascular: Regular rate, Regular Rhythm, Normal S1, Normal S2 Abdomen: Bowel Sounds Present, Soft, Non Tender, Non-Distended Extremities: No Calf Tenderness, Edema Skin: - - abrasion on dorsum on left foot. Musculoskeletal: - - bilateral knee swelling and TTP. no warmth. Neurological: - - no clonus. down going babinski on left, equivocal on right. MS 1/5 in LLE. MS 3/5 in RLE. MS 5/5 in bilateral upper extemities. had difficulty following commands of [id number], but no ataxia noted. Psych/Mental Status: Anxious Laboratory Results 06/14/18 18:00: WBC 9.3, RBC 3.91 L, Hgb 10.3 L, Hct 32.0 L, MCV 81.8, MCH 26.3 L, MCHC 32.2, RDW 15.0 H, RDW Differential 44.2 H, Plt Count 318, MPV 10.5, Immature Gran % (Auto) 1.000 H, Neut % (Auto) 71.0 H, Lymph % (Auto) 16.8 L, [place] % (Auto) 7.9, Eos % (Auto) 3.0, Baso % (Auto) 0.3, Absolute Neuts (auto) 6.6, Absolute Lymphs (auto) 1.57, Total Counted Not Reportable 06/14/18 18:00: Sodium 141, Potassium 3.3 L, Chloride 109 H, Carbon Dioxide 23.0, Anion Gap 9, BUN 45 H, Creatinine 2.84 H, Estim Creat Clear Calc 17.49, Est GFR (MDRD) Af Amer 22 L, Est GFR (MDRD) Non-Af 18 L, BUN/Creatinine Ratio 15.8, Glucose 53 L, Calcium 8.5, Troponin I < 0.015 06/14/18 18:42: POC Glucose 24 L* 06/14/18 19:15: Urine Color Yellow, Urine Clarity Cloudy, Urine pH 6.5, Ur Specific [place] 1.010, Urine Protein 500 H, Urine Glucose (UA) 1000 H, Urine Ketones Negative, Urine Occult Blood 25 H, Urine Nitrite Negative, Urine Bilirubin Negative, Urine Urobilinogen Normal, Ur Leukocyte Esterase Negative, Urine RBC 0-5 SEEN, Urine WBC 5-10 SEEN, Ur Squamous Epith Cells 0 SEEN, Amorphous Sediment 1+, Urine Bacteria 0 SEEN, Hyaline Casts 0-5 SEEN, Urine Mucus 0 SEEN 06/14/18 20:17: POC Glucose 69 L 06/14/18 21:15: POC Glucose 91 06/15/18 01:19: POC Glucose 93 06/15/18 04:48: POC Glucose 110 06/15/18 06:10: WBC 7.3, RBC 3.59 L, Hgb 9.5 L, Hct 30.3 L, MCV 84.4, MCH 26.5 L, MCHC 31.4 L, RDW 14.9 H, RDW Differential 44.8 H, Plt Count 256, MPV 11.2, Immature Gran % (Auto) 0.800, Neut % (Auto) 63.3, Lymph % (Auto) 22.6, [place] % (Auto) 9.3, Eos % (Auto) 3.5, Baso % (Auto) 0.5, Absolute Neuts (auto) 4.6, Absolute Lymphs (auto) 1.66, Total Counted Not Reportable 06/15/18 06:10: Sodium 144, Potassium 4.3, Chloride 114 H, Carbon Dioxide 21.0, Anion Gap 9, BUN 44 H, Creatinine 2.53 H, Estim Creat Clear Calc 20.54, Est GFR (MDRD) Af Amer 25 L, Est GFR (MDRD) Non-Af 21 L, BUN/Creatinine Ratio 17.4, Glucose 124 H, Calcium 8.1 L Current Medications Acetaminophen (Tylenol) 650 mg PO Q6H PRN PRN PRN Reason: Fever, headache, pain Atenolol (Tenormin (Beta Shannon)) 100 mg PO DAILY [facility] Last Admin: 06/15/18 09:40 Dose: 100 mg Atorvastatin Calcium (Lipitor) 20 mg PO QHS [facility] Last Admin: 06/14/18 21:30 Dose: 20 mg Dextrose (D50w Syringe) 0 gm IV X1 PRN; Protocol PRN Reason: Hypoglycemia Fenofibrate (Tricor) 145 mg PO DAILY [facility] Gabapentin (Neurontin) 300 mg PO QHS [facility] Last Admin: 06/14/18 21:30 Dose: 300 mg Glucagon () 1 mg IM .X1 PRN PRN Reason: Hypoglycemia Heparin Sodium (Porcine) (Heparin Na) 5,000 unit SC Q12 [facility] Last Admin: 06/15/18 09:40 Dose: 5,000 unit Hydralazine HCl (Apresoline Iv) 10 mg IV Q8H PRN PRN PRN Reason: for SBP>160 Sodium Chloride () 1,000 mls @ 75 mls/hr IV .[id number] [facility] Last Admin: 06/15/18 09:51 Dose: 75 mls/hr Influenza Virus Vaccine Quadrival (Fluarix/Fluzone) 0.5 ml IM .ONCE ONE Stop: 06/15/18 10:01 Last Admin: 06/15/18 09:50 Dose: 0.5 ml Magnesium Hydroxide (Milk Of Magnesia) 30 ml PO DAILY PRN PRN PRN Reason: Constipation Montelukast Sodium (Singulair) 10 mg PO QHS [facility] Last Admin: 06/14/18 21:30 Dose: 10 mg Morphine Sulfate () 1 mg IV Q4H PRN PRN PRN Reason: SEVERE PAIN (6-10/10) Ondansetron HCl (Zofran) 4 mg IV Q6H PRN PRN PRN Reason: NAUSEA/VOMITING Oxycodone HCl (Oxyir) 5 mg PO Q6H PRN PRN PRN Reason: SEVERE PAIN (6-10/10) Last Admin: 06/15/18 05:53 Dose: 5 mg Sertraline HCl (Zoloft) 100 mg PO DAILY [facility] Last Admin: 06/15/18 09:40 Dose: 100 mg Sodium Chloride () 5 - 15 ml IV UD PRN PRN Reason: SALINE FLUSH Medical Necessity - Tobacco Use Smoking Status: Never smoker Tobacco Use: Non-smoker Assessment/Plan All Active Problems Debility (Acute) 1. Debility PT OT eval and treat 2. LE extremity weakness. progressive per pt states she saw a disability doctor for this and was concerned about a more central process (i.e., MS) check MRI lumbar spine. noted weakness in LE, concern for area in L spine (pt denies incontinence) 3. DM2 too tightly controlled resume basal, but at lower dose prandial to be SSI, for now. 4. NOEL IVF check urine studies 5. DVT proph: SQ heparin. Code Visit Inpatient E&M: 59763 Subs Hosp L3
[2018-06-15 10:05] LABS: Bedside Glucose 106 mg/dL (70-110)
--- NOTE | 2018-06-15 10:08 | PN_ITS ---
Patient Problems: Active and Suspected Problems Debility (Acute) Subjective: Still with knee pain. States that she has had progressive weakness in her legs--no strength. Vitals/I&O's: Vital Signs Temp Pulse Resp BP Pulse Ox 36.5 C L 60 16 143/68 H 97 06/15/18 04:11 06/15/18 05:58 06/15/18 04:11 06/15/18 04:11 06/15/18 04:11 Oxygen Delivery Method Room Air Weight: 103 kg Body Mass Index (BMI) 40.2 Intake and Output for Last 24 Hours 06/13/18 06/14/18 06/15/18 23:59 23:59 23:59 Intake Total 527 / 527 454 / 454 Output Total 500 / 500 200 / 200 Balance 254 / 254 General: Alert, No apparent distress HEENT: Atraumatic, Normocephalic Oral: Moist Mucosa, No Gingival or Mucosal Lesions/ Ulcerations Neck: No Nodes, Thyroid Normal Size and Texture Lungs: Clear to auscultation, Normal air movement, No rhonchi, No wheeze Cardiovascular: Regular rate, Regular Rhythm, Normal S1, Normal S2 Abdomen: Bowel Sounds Present, Soft, Non Tender, Non-Distended Extremities: No Calf Tenderness, Edema Skin: - - abrasion on dorsum on left foot. Musculoskeletal: - - bilateral knee swelling and TTP. no warmth. Neurological: - - no clonus. down going babinski on left, equivocal on right. MS 1/5 in LLE. MS 3/5 in RLE. MS 5/5 in bilateral upper extemities. had difficulty following commands of [id number], but no ataxia noted. Psych/Mental Status: Anxious Laboratory Results 06/14/18 18:00: WBC 9.3, RBC 3.91 L, Hgb 10.3 L, Hct 32.0 L, MCV 81.8, MCH 26.3 L, MCHC 32.2, RDW 15.0 H, RDW Differential 44.2 H, Plt Count 318, MPV 10.5, Immature Gran % (Auto) 1.000 H, Neut % (Auto) 71.0 H, Lymph % (Auto) 16.8 L, [place] % (Auto) 7.9, Eos % (Auto) 3.0, Baso % (Auto) 0.3, Absolute Neuts (auto) 6.6, Absolute Lymphs (auto) 1.57, Total Counted Not Reportable 06/14/18 18:00: Sodium 141, Potassium 3.3 L, Chloride 109 H, Carbon Dioxide 23.0, Anion Gap 9, BUN 45 H, Creatinine 2.84 H, Estim Creat Clear Calc 17.49, Est GFR (MDRD) Af Amer 22 L, Est GFR (MDRD) Non-Af 18 L, BUN/Creatinine Ratio 15.8, Glucose 53 L, Calcium 8.5, Troponin I < 0.015 06/14/18 18:42: POC Glucose 24 L* 06/14/18 19:15: Urine Color Yellow, Urine Clarity Cloudy, Urine pH 6.5, Ur Specific [place] 1.010, Urine Protein 500 H, Urine Glucose (UA) 1000 H, Urine Ketones Negative, Urine Occult Blood 25 H, Urine Nitrite Negative, Urine Bilirubin Negative, Urine Urobilinogen Normal, Ur Leukocyte Esterase Negative, Urine RBC 0-5 SEEN, Urine WBC 5-10 SEEN, Ur Squamous Epith Cells 0 SEEN, Amorphous Sediment 1+, Urine Bacteria 0 SEEN, Hyaline Casts 0-5 SEEN, Urine Mucus 0 SEEN 06/14/18 20:17: POC Glucose 69 L 06/14/18 21:15: POC Glucose 91 06/15/18 01:19: POC Glucose 93 06/15/18 04:48: POC Glucose 110 06/15/18 06:10: WBC 7.3, RBC 3.59 L, Hgb 9.5 L, Hct 30.3 L, MCV 84.4, MCH 26.5 L , MCHC 31.4 L, RDW 14.9 H, RDW Differential 44.8 H, Plt Count 256, MPV 11.2, Immature Gran % (Auto) 0.800, Neut % (Auto) 63.3, Lymph % (Auto) 22.6, [place] % (Auto) 9.3, Eos % (Auto) 3.5, Baso % (Auto) 0.5, Absolute Neuts (auto) 4.6, Absolute Lymphs (auto) 1.66, Total Counted Not Reportable 06/15/18 06:10: Sodium 144, Potassium 4.3, Chloride 114 H, Carbon Dioxide 21.0, Anion Gap 9, BUN 44 H, Creatinine 2.53 H, Estim Creat Clear Calc 20.54, Est GFR (MDRD) Af Amer 25 L, Est GFR (MDRD) Non-Af 21 L, BUN/Creatinine Ratio 17.4, Glucose 124 H, Calcium 8.1 L Current Medications Acetaminophen (Tylenol) 650 mg PO Q6H PRN PRN PRN Reason: Fever, headache, pain Atenolol (Tenormin (Beta Shannon)) 100 mg PO DAILY [facility] Last Admin: 06/15/18 09:40 Dose: 100 mg Atorvastatin Calcium (Lipitor) 20 mg PO QHS [facility] Last Admin: 06/14/18 21:30 Dose: 20 mg Dextrose (D50w Syringe) 0 gm IV X1 PRN; Protocol PRN Reason: Hypoglycemia Fenofibrate (Tricor) 145 mg PO DAILY [facility] Gabapentin (Neurontin) 300 mg PO QHS [facility] Last Admin: 06/14/18 21:30 Dose: 300 mg Glucagon () 1 mg IM .X1 PRN PRN Reason: Hypoglycemia Heparin Sodium (Porcine) (Heparin Na) 5,000 unit SC Q12 [facility] Last Admin: 06/15/18 09:40 Dose: 5,000 unit Hydralazine HCl (Apresoline Iv) 10 mg IV Q8H PRN PRN PRN Reason: for SBP>160 Sodium Chloride () 1,000 mls @ 75 mls/hr IV .[id number] [facility] Last Admin: 06/15/18 09:51 Dose: 75 mls/hr Influenza Virus Vaccine Quadrival (Fluarix/Fluzone) 0.5 ml IM .ONCE ONE Stop: 06/15/18 10:01 Last Admin: 06/15/18 09:50 Dose: 0.5 ml Magnesium Hydroxide (Milk Of Magnesia) 30 ml PO DAILY PRN PRN PRN Reason: Constipation Montelukast Sodium (Singulair) 10 mg PO QHS [facility] Last Admin: 06/14/18 21:30 Dose: 10 mg Morphine Sulfate () 1 mg IV Q4H PRN PRN PRN Reason: SEVERE PAIN (6-10/10) Ondansetron HCl (Zofran) 4 mg IV Q6H PRN PRN PRN Reason: NAUSEA/VOMITING Oxycodone HCl (Oxyir) 5 mg PO Q6H PRN PRN PRN Reason: SEVERE PAIN (6-10/10) Last Admin: 06/15/18 05:53 Dose: 5 mg Sertraline HCl (Zoloft) 100 mg PO DAILY [facility] Last Admin: 06/15/18 09:40 Dose: 100 mg Sodium Chloride () 5 - 15 ml IV UD PRN PRN Reason: SALINE FLUSH Medical Necessity - Tobacco Use Smoking Status: Never smoker Tobacco Use: Non-smoker Assessment/Plan All Active Problems Debility (Acute) 1. Debility * PT OT eval and treat 2. LE extremity weakness. * progressive per pt * states she saw a disability doctor for this and was concerned about a more central process (i.e., MS) * check MRI lumbar spine. * noted weakness in LE, concern for area in L spine (pt denies incontinence) 3. DM2 * too tightly controlled * resume basal, but at lower dose * prandial to be SSI, for now. 4. NOEL * IVF * check urine studies 5. DVT proph: SQ heparin. Code Visit Inpatient E&M: 70789 Subs Hosp L3
--- NOTE | 2018-06-15 10:09 | MRI_ITS ---
STUDY: MRI LUMBAR SPINE WITHOUT CONTRAST REASON FOR EXAM: Female, 58 years old. Bilateral lower extremity weakness. Increasing falls. TECHNIQUE: Standardized fat and water weighted pulse sequences were obtained in the sagittal and axial planes. COMPARISON: None FINDINGS: T12-L1: Normal endplates. Normal disc height, hydration and morphology. Normal bilateral facet joints. Normal central canal and bilateral lateral recesses. Normal bilateral intervertebral neural foramina. Normal lumbar lordosis. There is a dextroscoliosis of the lumbar spine. Normal conus medullaris that terminates at the L2 level . L1-2: Normal endplates. Normal disc height, hydration and morphology. Normal bilateral facet joints. Normal central canal and bilateral lateral recesses. Normal bilateral intervertebral neural foramina. L2-3: Normal endplates. Normal disc height, hydration and morphology. Mild spurring of the bilateral facet joints. Normal central canal and bilateral lateral recesses. Normal bilateral intervertebral neural foramina. L3-4: Normal endplates. Normal disc height, hydration and morphology. There is spurring of the bilateral facet joints and ligamentum flavum hypertrophy. Normal central canal and bilateral lateral recesses. Normal bilateral intervertebral neural foramina. L4-5: Disc bulge with left paracentral disc protrusion narrowing the left lateral recess, series 6 image 8. Facet spurring and ligamentum flavum hypertrophy. Left foraminal narrowing. No canal stenosis L5-S1: Disc bulge and spurring left paracentral and right foraminal disc protrusions, series 6 images 08/13 and 09/10. Facet spurring. Bilateral foraminal narrowing. Normal visualized sacral ala. Normal visualized paraspinous soft tissue structures. There are small renal cysts. MRI/Spine Lumbar (Routine) IMPRESSION: Lumbar spondylosis with disc herniations and foraminal narrowing at L4-5 and L5-S1. Electronically Signed: Valentín Vázquez MD at 13:29 EST , Service support ,
--- NOTE | 2018-06-15 10:45 | CASEMGMT ---
DAXA SANTACRUZ ASSESSMENT: DAXA SANTACRUZ to room for initial transition planning/care coordination assessment. DAXA SANTACRUZ introduced self and role at [facility]. Pt voices understanding and consents to assessment at this time. Pt resting in bed in no distress at this time. Pt states she has been having a lot of falls at home and states she does not feel safe to return home at this time. Pt states, I know I need help and it's becoming too much for my and son. Pt states is interested in going somewhere for therapy upon discharge and states [facility]CU is her first choice. Maya DAVE, notified. She reports she is currently getting HHC, nursing, PT and OT through [facility] and that they are aware she is in the hospital. Pt states she does not have LW or HCPOA and is interested in further information. She states she would also like to talk with JOLIE about filling out the paperwork. Maya DAVE, also notified of this. Zelda TAMAYO RN, CM
[2018-06-15] MEDS: LORazepam 1 MG Tablet PO (11:17)
--- NOTE | 2018-06-15 13:04 | CHAPLAIN ---
Type of Pastoral Visit _x__ Initial Visit ___ Follow-up Visit ___ On-call Visit ___ General Patient Visit ___ Spiritual Assessment ___ Family Conference ___ Bereavement ___ Rapid Response ___ Code Blue ___ Other (describe below) Pastoral Care Referral From _x__ Patient ___ Family ___ Nurse ___ Physician ___ Technology Consultant ___ Household Personal Assistant ___ Other (describe below) Sacrament/Intervention _x__ Active listening ___ Anointing ___ Hoahaoism ___ Bereavement ___ Communion _x__ Thais exploration ___ ___ Life review _x__ Prayer ___ Reconciliation ___ Sacrament of Sick ___ Supportive presence ___ Wedding ___ Other (describe below) Pastoral Comments patient would like to be on [facility] list if not already
--- NOTE | 2018-06-15 13:10 | CASEMGMT ---
Addendum entered by Maya Seals 06/15/18 16:00: JOLIE spoke with Roshni in post accute. Pt may be appropriate for Inpatient Rehab unit. Bed will be available and precert started at this time. SW spoke with pt and and pt is agreeable for inpt Rehab. Plan: Inpt Rehab, pending precert. BERNARD Finney Original Note: Social Work Referral received from KAILA Spencer. JOLIE met with pt in room and discussed discharge plan. Pt lives at home with her and son and has been having a lot of falls lately. Pt does not feel like she is safe to return home and would like short term rehab prior to returning home and would like to go to TCU. Phone call to Roshni in TCU and they are able to accept pt. Precert will need to be obtained prior to pt admission to TCU. Spoke with pt about advance directives. SW explained Living will and Health care POA. Pt states she would like to review written information and will likely want to complete forms during this hospitalization, but not at this time. SW will followup as time allows. Pt stating she has applied for disability but is waiting for determination. No other concerns voiced at this time. Plan: TCU, pending insurance approval BERNARD Finney
--- NOTE | 2018-06-15 13:40 | CASEMGMT ---
DAXA SANTACRUZ NOTE: Call placed to [facility] and spoke with Kelsy. She was made aware plan is for pt to go to SNF upon discharge. She asked for someone to notify [facility] if pt does end up returning home instead of going to SNF so they can resume care. Attentive [facility]: PH: [phone] . Zelda TAMAYO RN CM
[2018-06-15 14:14] LABS: Urine Sodium 55 mmol/L (Not Establ.)
[2018-06-15 14:21] LABS: Bedside Glucose 254 mg/dL (70-110)
[2018-06-15] MEDS: 0.9% NaCl Peripheral Flush Adult/Peds IV ×2 (16:21→20:08)
[2018-06-15 17:05] LABS: Bedside Glucose 226 mg/dL (70-110)
[2018-06-15] MEDS: Insulin Lispro 100 UNIT/ML INSULN.PEN SQ (17:33)
[2018-06-15] MEDS: hydrALAZINE 20 MG/ML Vial 10 MG IV (20:09)
[2018-06-15] MEDS: Montelukast 10 MG Tablet PO (21:43)
[2018-06-15] MEDS: Atorvastatin Calcium 20 MG Tablet PO (21:43)
[2018-06-15] MEDS: Gabapentin 300 MG Capsule PO (21:43)
[2018-06-15 21:55] LABS: Bedside Glucose 255 mg/dL (70-110)
[2018-06-15] MEDS: Insulin Lispro 100 UNIT/ML INSULN.PEN SC (22:11)
[2018-06-16] VITALS (15 sets, daily range): BP systolic 126–191; BP diastolic 63–89; PULSE 62–79; RESP 16–18; TEMP 36.3–36.8; O2SAT 96–98
[2018-06-16] MEDS: hydrALAZINE 20 MG/ML Vial 10 MG IV ×3 (04:36→23:13)
[2018-06-16] MEDS: 0.9% NaCl Peripheral Flush Adult/Peds IV (04:36)
[2018-06-16 06:40] LABS: Bedside Glucose 131 mg/dL (70-110)
[2018-06-16 06:56] LABS: Absolute Lymphocyte Count 1.34 X10^3/ul (0.83-4.51); Basophil# 0.03 X10^3/uL; Basophil% 0.4 % (0-1); Eosinophil# 0.29 X10^3/uL; Eosinophils% 3.4 % (0-5); Hematocrit 29.7 % (37-47); Hemoglobin 9.3 g/dl (12.0-15.0); Lymphocyte # 1.34 X10^3/ul (4.0); Lymphocyte % 15.6 % (19-41); Mean Corp Hgb Conc 31.3 g/gl (32-36); Mean Corpuscular Hgb 26.3 pg (27.0-32.0); Mean Corpuscular Volume 84.1 fL (81-99); Mean Platelet Vol. 11.3 fl (6.2-12.0); Monocyte# 0.87 X10^3/uL; Monocyte% 10.2 % (0-10); Neutrophil # 5.98 X10^3/uL (2.7-7.7); Neutrophil % 69.7 % (47-70); Platelet Count 266 K/mm3 (150-450); RBC Distribution Width CV 14.9 % (11.6-14.6); RBC Distribution Width SD 44.5 fl (35.1-43.9); Red Blood Count 3.53 M/mm3 (4.2-5.4); White Blood Count 8.6 K/mm3 (4.4-11.0)
[2018-06-16 07:00] LABS: POSITIVE COUNT NO; POSITIVE DIFFERENTIAL NO; POSITIVE MORPHOLOGY NO
[2018-06-16 07:19] LABS: Anion Gap 11 (5-15); BUN 46 mg/dL (7-18); BUN/Creat Ratio 16.3 RATIO (10-20); Calcium,Total 8.3 mg/dL (8.5-10.1); Chloride 113 mmol/L (98-107); Creatinine, Serum 2.83 mg/dL (0.55-1.02); EST Glomerular Filtration Rate 18 mL/min (>60); Est Glom Filt Rate - Afr Amer 22 mL/min (>60); Estimated Creatinine Clearance 18.36 ml/min; Glucose 133 mg/dL (74-106); Potassium 4.8 mmol/L (3.5-5.1); Sodium Level 143 mmol/L (136-145)
[2018-06-16] MEDS: Sertraline 100 MG Tablet PO (08:19)
[2018-06-16] MEDS: Heparin Injection (Vial) 5,000 UNIT/ML VIAL 5000 UNIT SC ×2 (08:20→21:25)
[2018-06-16] MEDS: Atenolol 100 MG Tablet PO (08:20)
[2018-06-16] MEDS: Insulin Lispro 100 UNIT/ML INSULN.PEN SQ ×2 (10:31→15:20)
[2018-06-16 10:40] LABS: Bedside Glucose 240 mg/dL (70-110)
[2018-06-16] MEDS: oxyCODONE 5 MG Tablet PO (11:02)
[2018-06-16] MEDS: 0.9% Normal Saline 1,000 ML 75 ML IV (11:03)
[2018-06-16 11:20] LABS: Hemoglobin A1c 7.1 % (4.2-6.3)
--- NOTE | 2018-06-16 15:12 | PCM.PN.HOSP ---
Patient Problems: Active and Suspected Problems Debility (Acute) Subjective: will with weakness in LE. Pain in knees. Vitals/I&O's: Vital Signs Temp Pulse Resp BP Pulse Ox 36.3 C L 65 16 169/80 H 96 06/16/18 11:08 06/16/18 15:02 06/16/18 11:08 06/16/18 11:08 06/16/18 11:08 Oxygen Delivery Method Room Air Weight: 103 kg Body Mass Index (BMI) 40.2 Intake and Output for Last 24 Hours 06/14/18 06/15/18 06/16/18 23:59 23:59 23:59 Intake Total 527 / 527 2173 / 2173 2141 / 2141 Output Total 500 / 500 200 / 200 1450 / 1450 Balance 1972 691 / 691 General: Alert, No apparent distress, - - appears older than stated age. HEENT: Atraumatic, Normocephalic Oral: Moist Mucosa, No Gingival or Mucosal Lesions/ Ulcerations Neck: No Nodes, Thyroid Normal Size and Texture Lungs: Clear to auscultation, Normal air movement, No rhonchi, No wheeze Cardiovascular: Regular rate, Regular Rhythm, Normal S1, Normal S2, No murmurs Abdomen: Bowel Sounds Present, Soft, Non Tender, Non-Distended, Obese Extremities: Edema Skin: No breakdown Musculoskeletal: No Muscle Wasting, - - left medial knee painful out of proportion to exam (slightly grazed her left knee and she yelped in pain) Neurological: Coordination normal - but again was confused following instructions of [id number]., - - Plantar flexion 4/5 in LLE. MS 5/5 in UE bilaterally. Psych/Mental Status: Appropriate, Anxious Laboratory Results 06/15/18 16:55: POC Glucose 226 H 06/15/18 21:41: POC Glucose 255 H 06/16/18 06:30: WBC 8.6, RBC 3.53 L, Hgb 9.3 L, Hct 29.7 L, MCV 84.1, MCH 26.3 L, MCHC 31.3 L, RDW 14.9 H, RDW Differential 44.5 H, Plt Count 266, MPV 11.3, Immature Gran % (Auto) 0.700, Neut % (Auto) 69.7, Lymph % (Auto) 15.6 L, [place] % (Auto) 10.2 H, Eos % (Auto) 3.4, Baso % (Auto) 0.4, Absolute Neuts (auto) 6.0, Absolute Lymphs (auto) 1.34, Total Counted Not Reportable 06/16/18 06:30: Sodium 143, Potassium 4.8, Chloride 113 H, Carbon Dioxide 19.0 L, Anion Gap 11, BUN 46 H, Creatinine 2.83 H, Estim Creat Clear Calc 18.36, Est GFR (MDRD) Af Amer 22 L, Est GFR (MDRD) Non-Af 18 L, BUN/Creatinine Ratio 16.3, Glucose 133 H, Calcium 8.3 L 06/16/18 06:30: Hemoglobin A1c 7.1 H 06/16/18 06:35: POC Glucose 131 H 06/16/18 10:29: POC Glucose 240 H Current Medications Acetaminophen (Tylenol) 650 mg PO Q6H PRN PRN PRN Reason: Fever, headache, pain Atenolol (Tenormin (Beta Shannon)) 100 mg PO DAILY [facility] Last Admin: 06/16/18 08:20 Dose: 100 mg Atorvastatin Calcium (Lipitor) 20 mg PO QHS [facility] Last Admin: 06/15/18 21:43 Dose: 20 mg Dextrose (D50w Syringe) 0 gm IV X1 PRN; Protocol PRN Reason: Hypoglycemia Gabapentin (Neurontin) 300 mg PO QHS [facility] Last Admin: 06/15/18 21:43 Dose: 300 mg Glucagon () 1 mg IM .X1 PRN PRN Reason: Hypoglycemia Heparin Sodium (Porcine) (Heparin Na) 5,000 unit SC Q12 [facility] Last Admin: 06/16/18 08:20 Dose: 5,000 unit Hydralazine HCl (Apresoline Iv) 10 mg IV Q8H PRN PRN PRN Reason: for SBP>160 Last Admin: 06/16/18 15:02 Dose: 10 mg Sodium Chloride () 1,000 mls @ 75 mls/hr IV .[id number] [facility] Last Admin: 06/16/18 11:03 Dose: 75 mls/hr Insulin Glargine (Lantus (Bk)) 30 units SC DINNER [facility] Insulin Human Lispro (Humalog Kwikpen (Bk)) 0 unit SQ TIDAC [facility]; Protocol Last Admin: 06/16/18 10:31 Dose: 3 units Magnesium Hydroxide (Milk Of Magnesia) 30 ml PO DAILY PRN PRN PRN Reason: Constipation Montelukast Sodium (Singulair) 10 mg PO QHS [facility] Last Admin: 06/15/18 21:43 Dose: 10 mg Ondansetron HCl (Zofran) 4 mg IV Q6H PRN PRN PRN Reason: NAUSEA/VOMITING Oxycodone HCl (Oxyir) 5 mg PO Q6H PRN PRN PRN Reason: SEVERE PAIN (6-10/10) Last Admin: 06/16/18 11:02 Dose: 5 mg Sertraline HCl (Zoloft) 100 mg PO DAILY [facility] Last Admin: 06/16/18 08:19 Dose: 100 mg Sodium Chloride () 5 - 15 ml IV UD PRN PRN Reason: SALINE FLUSH Last Admin: 06/16/18 04:36 Dose: 10 ml Medical Necessity - Tobacco Use Smoking Status: Never smoker Tobacco Use: Non-smoker Assessment/Plan All Active Problems Debility (Acute) 1. Debility PT OT eval and treat 2. LE extremity weakness. progressive per pt states she saw a disability doctor for this and was concerned about a more central process (i.e., MS) MRI lumbar spine. unremarkable noted weakness in LE, concern for area in L spine (pt denies incontinence) check MRI of thoracic spine etiology unclear: MS, TM, psychosomatic? 3. DM2 too tightly controlled resume basal, but at lower dose prandial to be SSI, for now. fair control now 4. CKD 4 Creatinine likely at baseline--unchanged since admission, but up from 2016 monitor avoid nephrotoxic medications follow up with Nephrology as outpt. 5. Knee pain slight effusion on exam and xray not warm check ESR, CPR, uric acid will need to follow up with her orthopaedist 6. DVT proph: SQ heparin. With patient's permission, I spoke with the patient's daughter, mother in law. Greater than 35 minutes of which greater than 50% of the time discussing possibilities for her weakness, additional testing. Code Visit Inpatient E&M: 55887 Subs Hosp L3
--- NOTE | 2018-06-16 15:21 | PN_ITS ---
Patient Problems: Active and Suspected Problems Debility (Acute) Subjective: will with weakness in LE. Pain in knees. Vitals/I&O's: Vital Signs Temp Pulse Resp BP Pulse Ox 36.3 C L 65 16 169/80 H 96 06/16/18 11:08 06/16/18 15:02 06/16/18 11:08 06/16/18 11:08 06/16/18 11:08 Oxygen Delivery Method Room Air Weight: 103 kg Body Mass Index (BMI) 40.2 Intake and Output for Last 24 Hours 06/14/18 06/15/18 06/16/18 23:59 23:59 23:59 Intake Total 527 / 527 2173 / 2173 2141 / 2141 Output Total 500 / 500 200 / 200 1450 / 1450 Balance 1972 691 / 691 General: Alert, No apparent distress, - - appears older than stated age. HEENT: Atraumatic, Normocephalic Oral: Moist Mucosa, No Gingival or Mucosal Lesions/ Ulcerations Neck: No Nodes, Thyroid Normal Size and Texture Lungs: Clear to auscultation, Normal air movement, No rhonchi, No wheeze Cardiovascular: Regular rate, Regular Rhythm, Normal S1, Normal S2, No murmurs Abdomen: Bowel Sounds Present, Soft, Non Tender, Non-Distended, Obese Extremities: Edema Skin: No breakdown Musculoskeletal: No Muscle Wasting, - - left medial knee painful out of proportion to exam (slightly grazed her left knee and she yelped in pain) Neurological: Coordination normal - but again was confused following instructions of [id number]., - - Plantar flexion 4/5 in LLE. MS 5/5 in UE bilaterally. Psych/Mental Status: Appropriate, Anxious Laboratory Results 06/15/18 16:55: POC Glucose 226 H 06/15/18 21:41: POC Glucose 255 H 06/16/18 06:30: WBC 8.6, RBC 3.53 L, Hgb 9.3 L, Hct 29.7 L, MCV 84.1, MCH 26.3 L , MCHC 31.3 L, RDW 14.9 H, RDW Differential 44.5 H, Plt Count 266, MPV 11.3, Immature Gran % (Auto) 0.700, Neut % (Auto) 69.7, Lymph % (Auto) 15.6 L, [place] % (Auto) 10.2 H, Eos % (Auto) 3.4, Baso % (Auto) 0.4, Absolute Neuts (auto) 6.0, Absolute Lymphs (auto) 1.34, Total Counted Not Reportable 06/16/18 06:30: Sodium 143, Potassium 4.8, Chloride 113 H, Carbon Dioxide 19.0 L , Anion Gap 11, BUN 46 H, Creatinine 2.83 H, Estim Creat Clear Calc 18.36, Est GFR (MDRD) Af Amer 22 L, Est GFR (MDRD) Non-Af 18 L, BUN/Creatinine Ratio 16.3, Glucose 133 H, Calcium 8.3 L 06/16/18 06:30: Hemoglobin A1c 7.1 H 06/16/18 06:35: POC Glucose 131 H 06/16/18 10:29: POC Glucose 240 H Current Medications Acetaminophen (Tylenol) 650 mg PO Q6H PRN PRN PRN Reason: Fever, headache, pain Atenolol (Tenormin (Beta Shannon)) 100 mg PO DAILY [facility] Last Admin: 06/16/18 08:20 Dose: 100 mg Atorvastatin Calcium (Lipitor) 20 mg PO QHS [facility] Last Admin: 06/15/18 21:43 Dose: 20 mg Dextrose (D50w Syringe) 0 gm IV X1 PRN; Protocol PRN Reason: Hypoglycemia Gabapentin (Neurontin) 300 mg PO QHS [facility] Last Admin: 06/15/18 21:43 Dose: 300 mg Glucagon () 1 mg IM .X1 PRN PRN Reason: Hypoglycemia Heparin Sodium (Porcine) (Heparin Na) 5,000 unit SC Q12 [facility] Last Admin: 06/16/18 08:20 Dose: 5,000 unit Hydralazine HCl (Apresoline Iv) 10 mg IV Q8H PRN PRN PRN Reason: for SBP>160 Last Admin: 06/16/18 15:02 Dose: 10 mg Sodium Chloride () 1,000 mls @ 75 mls/hr IV .[id number] [facility] Last Admin: 06/16/18 11:03 Dose: 75 mls/hr Insulin Glargine (Lantus (Bk)) 30 units SC DINNER [facility] Insulin Human Lispro (Humalog Kwikpen (Bk)) 0 unit SQ TIDAC [facility]; Protocol Last Admin: 06/16/18 10:31 Dose: 3 units Magnesium Hydroxide (Milk Of Magnesia) 30 ml PO DAILY PRN PRN PRN Reason: Constipation Montelukast Sodium (Singulair) 10 mg PO QHS [facility] Last Admin: 06/15/18 21:43 Dose: 10 mg Ondansetron HCl (Zofran) 4 mg IV Q6H PRN PRN PRN Reason: NAUSEA/VOMITING Oxycodone HCl (Oxyir) 5 mg PO Q6H PRN PRN PRN Reason: SEVERE PAIN (6-10/10) Last Admin: 06/16/18 11:02 Dose: 5 mg Sertraline HCl (Zoloft) 100 mg PO DAILY [facility] Last Admin: 06/16/18 08:19 Dose: 100 mg Sodium Chloride () 5 - 15 ml IV UD PRN PRN Reason: SALINE FLUSH Last Admin: 06/16/18 04:36 Dose: 10 ml Medical Necessity - Tobacco Use Smoking Status: Never smoker Tobacco Use: Non-smoker Assessment/Plan All Active Problems Debility (Acute) 1. Debility * PT OT eval and treat 2. LE extremity weakness. * progressive per pt * states she saw a disability doctor for this and was concerned about a more central process (i.e., MS) * MRI lumbar spine. unremarkable * noted weakness in LE, concern for area in L spine (pt denies incontinence) * check MRI of thoracic spine * etiology unclear: MS, TM, psychosomatic? 3. DM2 * too tightly controlled * resume basal, but at lower dose * prandial to be SSI, for now. * fair control now 4. CKD 4 * Creatinine likely at baseline--unchanged since admission, but up from 2016 * monitor * avoid nephrotoxic medications * follow up with Nephrology as outpt. 5. Knee pain * slight effusion on exam and xray * not warm * check ESR, CPR, uric acid * will need to follow up with her orthopaedist 6. DVT proph: SQ heparin. With patient's permission, I spoke with the patient's daughter, mother in law. Greater than 35 minutes of which greater than 50% of the time discussing possibilities for her weakness, additional testing. Code Visit Inpatient E&M: 84262 [facility] Hosp L3
[2018-06-16 15:26] LABS: Bedside Glucose 253 mg/dL (70-110)
[2018-06-16] MEDS: Montelukast 10 MG Tablet PO (21:25)
[2018-06-16] MEDS: Atorvastatin Calcium 20 MG Tablet PO (21:25)
[2018-06-16] MEDS: Gabapentin 300 MG Capsule PO (21:25)
[2018-06-16 21:55] LABS: Bedside Glucose 211 mg/dL (70-110)
[2018-06-16] MEDS: Insulin Lispro 100 UNIT/ML INSULN.PEN SC (23:14)
[2018-06-17] VITALS (9 sets, daily range): BP systolic 152–189; BP diastolic 62–84; PULSE 62–72; RESP 16–18; TEMP 36.3–36.8; O2SAT 95–99
--- NOTE | 2018-06-17 02:45 | NURSING ---
SENIOR INFORMATION SECURITY CONSULTANT & RN ATTEMPTED TO ASSIST PT TO BSC PT KNEES BUCKLED UNABLE TO BEAR ANY WEIGHT, BEGAN TO LIFT GURINDER ARMS IN AIR MAKING IT DIFFICULT TO HOLD PT, ADDITIONAL RN CAME TO ROOM ABLE TO TOTAL LIFT PT WITH 3 ASSIST BACK IN TO BED. WILL USE BEDPAN THROUGH NIGHT FOR SAFETY.
[2018-06-17 06:52] LABS: Bedside Glucose 114 mg/dL (70-110)
[2018-06-17 06:56] LABS: Absolute Neutrophil Count 5.5 X10^3/uL (2.0-7.7); Basophil# 0.04 X10^3/uL; Basophil% 0.5 % (0-1); Eosinophils% 3.9 % (0-5); Hematocrit 30.4 % (37-47); Hemoglobin 9.5 g/dl (12.0-15.0); Lymphocyte % 13.1 % (19-41); Mean Corp Hgb Conc 31.3 g/gl (32-36); Mean Corpuscular Hgb 25.8 pg (27.0-32.0); Mean Corpuscular Volume 82.6 fL (81-99); Mean Platelet Vol. 10.5 fl (6.2-12.0); Monocyte# 0.71 X10^3/uL; Monocyte% 9.3 % (0-10); Neutrophil # 5.51 X10^3/uL (2.7-7.7); Neutrophil % 72.4 % (47-70); Platelet Count 299 K/mm3 (150-450); RBC Distribution Width CV 15.1 % (11.6-14.6); RBC Distribution Width SD 45.8 fl (35.1-43.9); Red Blood Count 3.68 M/mm3 (4.2-5.4); White Blood Count 7.6 K/mm3 (4.4-11.0)
[2018-06-17 06:59] LABS: POSITIVE COUNT NO; POSITIVE DIFFERENTIAL NO; POSITIVE MORPHOLOGY NO
[2018-06-17] MEDS: Heparin Injection (Vial) 5,000 UNIT/ML VIAL 5000 UNIT SC ×2 (07:25→21:57)
[2018-06-17] MEDS: Sertraline 100 MG Tablet PO (07:25)
[2018-06-17] MEDS: Atenolol 100 MG Tablet PO (07:25)
[2018-06-17 07:30] LABS: Anion Gap 8 (5-15); BUN 47 mg/dL (7-18); BUN/Creat Ratio 18.3 RATIO (10-20); Calcium,Total 8.4 mg/dL (8.5-10.1); Chloride 114 mmol/L (98-107); Creatinine, Serum 2.57 mg/dL (0.55-1.02); EST Glomerular Filtration Rate 21 mL/min (>60); Est Glom Filt Rate - Afr Amer 25 mL/min (>60); Estimated Creatinine Clearance 20.22 ml/min; Glucose 114 mg/dL (74-106); Potassium 4.5 mmol/L (3.5-5.1); Sodium Level 141 mmol/L (136-145)
--- NOTE | 2018-06-17 10:52 | PCM.PN.HOSP ---
Patient Problems: Active and Suspected Problems Debility (Acute) Subjective: still with weakness in LE Vitals/I&O's: Vital Signs Temp Pulse Resp BP Pulse Ox 36.3 C L 63 16 170/76 H 95 06/17/18 07:31 06/17/18 07:31 06/17/18 07:31 06/17/18 07:31 06/17/18 08:16 Oxygen Delivery Method Room Air Weight: 103 kg Body Mass Index (BMI) 40.2 Intake and Output for Last 24 Hours 06/15/18 06/16/18 06/17/18 23:59 23:59 23:59 Intake Total 2173 / 2173 2791 / 2791 Output Total 200 / 200 2450 / 2450 800 / 800 Balance 1972 / 1972 341 / 341 -800 / -800 General: Alert, No apparent distress HEENT: Atraumatic, Normocephalic Oral: Moist Mucosa, No Gingival or Mucosal Lesions/ Ulcerations Neck: No Nodes, Thyroid Normal Size and Texture Lungs: Clear to auscultation, Normal air movement, No rhonchi, No wheeze Cardiovascular: Regular rate, Regular Rhythm, Normal S1, Normal S2, No murmurs Abdomen: Bowel Sounds Present, Soft, Non Tender, Non-Distended, Obese Extremities: No Calf Tenderness, Edema - trace Skin: No rashes Musculoskeletal: - - exquisite tenderness with palpation left patellar tendon (out of proportion to exam) Neurological: - - MS 2/5 in LE bilaterally. sensation intact. drop foot on right. no clonus. Psych/Mental Status: Appropriate, Anxious Laboratory Results 06/16/18 06:30: Hemoglobin A1c 7.1 H 06/16/18 15:18: POC Glucose 253 H 06/16/18 21:38: POC Glucose 211 H 06/17/18 06:30: WBC 7.6, RBC 3.68 L, Hgb 9.5 L, Hct 30.4 L, MCV 82.6, MCH 25.8 L, MCHC 31.3 L, RDW 15.1 H, RDW Differential 45.8 H, Plt Count 299, MPV 10.5, Immature Gran % (Auto) 0.800, Neut % (Auto) 72.4 H, Lymph % (Auto) 13.1 L, [place] % (Auto) 9.3, Eos % (Auto) 3.9, Baso % (Auto) 0.5, Absolute Neuts (auto) 5.5, Absolute Lymphs (auto) 1.00, Total Counted Not Reportable 06/17/18 06:30: Sodium 141, Potassium 4.5, Chloride 114 H, Carbon Dioxide 19.0 L, Anion Gap 8, BUN 47 H, Creatinine 2.57 H, Estim Creat Clear Calc 20.22, Est GFR (MDRD) Af Amer 25 L, Est GFR (MDRD) Non-Af 21 L, BUN/Creatinine Ratio 18.3, Glucose 114 H, Calcium 8.4 L 06/17/18 06:45: POC Glucose 114 H Current Medications Acetaminophen (Tylenol) 650 mg PO Q6H PRN PRN PRN Reason: Fever, headache, pain Atenolol (Tenormin (Beta Shannon)) 100 mg PO DAILY [facility] Last Admin: 06/17/18 07:25 Dose: 100 mg Atorvastatin Calcium (Lipitor) 20 mg PO QHS [facility] Last Admin: 06/16/18 21:25 Dose: 20 mg Dextrose (D50w Syringe) 0 gm IV X1 PRN; Protocol PRN Reason: Hypoglycemia Gabapentin (Neurontin) 300 mg PO QHS [facility] Last Admin: 06/16/18 21:25 Dose: 300 mg Glucagon () 1 mg IM .X1 PRN PRN Reason: Hypoglycemia Heparin Sodium (Porcine) (Heparin Na) 5,000 unit SC Q12 [facility] Last Admin: 06/17/18 07:25 Dose: 5,000 unit Hydralazine HCl (Apresoline Iv) 10 mg IV Q6H PRN PRN PRN Reason: for SBP>160 Last Admin: 06/16/18 23:13 Dose: 10 mg Insulin Glargine (Lantus (Bkc)) 30 units SC DINNER [facility] Last Admin: 06/16/18 17:40 Dose: 30 u Insulin Human Lispro (Humalog Kwikpen (Bk)) 0 unit SC ACHS [facility]; Protocol Last Admin: 06/17/18 06:52 Dose: Not Given Magnesium Hydroxide (Milk Of Magnesia) 30 ml PO DAILY PRN PRN PRN Reason: Constipation Montelukast Sodium (Singulair) 10 mg PO QHS [facility] Last Admin: 06/16/18 21:25 Dose: 10 mg Ondansetron HCl (Zofran) 4 mg IV Q6H PRN PRN PRN Reason: NAUSEA/VOMITING Oxycodone HCl (Oxyir) 5 mg PO Q6H PRN PRN PRN Reason: SEVERE PAIN (6-10/10) Last Admin: 06/16/18 11:02 Dose: 5 mg Sertraline HCl (Zoloft) 100 mg PO DAILY [facility] Last Admin: 06/17/18 07:25 Dose: 100 mg Sodium Chloride () 5 - 15 ml IV UD PRN PRN Reason: SALINE FLUSH Last Admin: 06/16/18 04:36 Dose: 10 ml Medical Necessity - Tobacco Use Smoking Status: Never smoker Tobacco Use: Non-smoker Assessment/Plan All Active Problems Debility (Acute) 1. Debility PT OT eval and treat to TCU pending approval 2. LE extremity weakness. progressive per pt, states that it is not due to knee pain states she saw a disability doctor for this and was concerned about a more central process (i.e., MS) MRI lumbar spine. unremarkable noted weakness in LE, concern for area in L spine (pt denies incontinence) check MRI of thoracic spine neurology consulted etiology unclear: MS, TM, psychosomatic? 3. DM2 too tightly controlled resume basal, but at lower dose prandial to be SSI, for now. fair control now 4. CKD 4 Creatinine likely at baseline--unchanged since admission, but up from 2016 monitor avoid nephrotoxic medications follow up with Nephrology as outpt. 5. left Knee pain slight effusion on exam and xray not warm--doubt septic arthritis check ESR, CPR, uric acid will need to follow up with her orthopaedist (supposedly is being consider for a R TKA) 6. DVT proph: SQ heparin. Code Visit Inpatient E&M: 29024 Subs Hosp L3
--- NOTE | 2018-06-17 11:00 | PN_ITS ---
Patient Problems: Active and Suspected Problems Debility (Acute) Subjective: still with weakness in LE Vitals/I&O's: Vital Signs Temp Pulse Resp BP Pulse Ox 36.3 C L 63 16 170/76 H 95 06/17/18 07:31 06/17/18 07:31 06/17/18 07:31 06/17/18 07:31 06/17/18 08:16 Oxygen Delivery Method Room Air Weight: 103 kg Body Mass Index (BMI) 40.2 Intake and Output for Last 24 Hours 06/15/18 06/16/18 06/17/18 23:59 23:59 23:59 Intake Total 2173 / 2173 2791 / 2791 Output Total 200 / 200 2450 / 2450 800 / 800 Balance 1972 / 1972 341 / 341 -800 / -800 General: Alert, No apparent distress HEENT: Atraumatic, Normocephalic Oral: Moist Mucosa, No Gingival or Mucosal Lesions/ Ulcerations Neck: No Nodes, Thyroid Normal Size and Texture Lungs: Clear to auscultation, Normal air movement, No rhonchi, No wheeze Cardiovascular: Regular rate, Regular Rhythm, Normal S1, Normal S2, No murmurs Abdomen: Bowel Sounds Present, Soft, Non Tender, Non-Distended, Obese Extremities: No Calf Tenderness, Edema - trace Skin: No rashes Musculoskeletal: - - exquisite tenderness with palpation left patellar tendon (out of proportion to exam) Neurological: - - MS 2/5 in LE bilaterally. sensation intact. drop foot on right. no clonus. Psych/Mental Status: Appropriate, Anxious Laboratory Results 06/16/18 06:30: Hemoglobin A1c 7.1 H 06/16/18 15:18: POC Glucose 253 H 06/16/18 21:38: POC Glucose 211 H 06/17/18 06:30: WBC 7.6, RBC 3.68 L, Hgb 9.5 L, Hct 30.4 L, MCV 82.6, MCH 25.8 L , MCHC 31.3 L, RDW 15.1 H, RDW Differential 45.8 H, Plt Count 299, MPV 10.5, Immature Gran % (Auto) 0.800, Neut % (Auto) 72.4 H, Lymph % (Auto) 13.1 L, [place] % (Auto) 9.3, Eos % (Auto) 3.9, Baso % (Auto) 0.5, Absolute Neuts (auto) 5.5, Absolute Lymphs (auto) 1.00, Total Counted Not Reportable 06/17/18 06:30: Sodium 141, Potassium 4.5, Chloride 114 H, Carbon Dioxide 19.0 L , Anion Gap 8, BUN 47 H, Creatinine 2.57 H, Estim Creat Clear Calc 20.22, Est GFR (MDRD) Af Amer 25 L, Est GFR (MDRD) Non-Af 21 L, BUN/Creatinine Ratio 18.3, Glucose 114 H, Calcium 8.4 L 06/17/18 06:45: POC Glucose 114 H Current Medications Acetaminophen (Tylenol) 650 mg PO Q6H PRN PRN PRN Reason: Fever, headache, pain Atenolol (Tenormin (Beta Shannon)) 100 mg PO DAILY [facility] Last Admin: 06/17/18 07:25 Dose: 100 mg Atorvastatin Calcium (Lipitor) 20 mg PO QHS [facility] Last Admin: 06/16/18 21:25 Dose: 20 mg Dextrose (D50w Syringe) 0 gm IV X1 PRN; Protocol PRN Reason: Hypoglycemia Gabapentin (Neurontin) 300 mg PO QHS [facility] Last Admin: 06/16/18 21:25 Dose: 300 mg Glucagon () 1 mg IM .X1 PRN PRN Reason: Hypoglycemia Heparin Sodium (Porcine) (Heparin Na) 5,000 unit SC Q12 [facility] Last Admin: 06/17/18 07:25 Dose: 5,000 unit Hydralazine HCl (Apresoline Iv) 10 mg IV Q6H PRN PRN PRN Reason: for SBP>160 Last Admin: 06/16/18 23:13 Dose: 10 mg Insulin Glargine (Lantus (Bkc)) 30 units SC DINNER [facility] Last Admin: 06/16/18 17:40 Dose: 30 u Insulin Human Lispro (Humalog Kwikpen (Bk)) 0 unit SC ACHS [facility]; Protocol Last Admin: 06/17/18 06:52 Dose: Not Given Magnesium Hydroxide (Milk Of Magnesia) 30 ml PO DAILY PRN PRN PRN Reason: Constipation Montelukast Sodium (Singulair) 10 mg PO QHS [facility] Last Admin: 06/16/18 21:25 Dose: 10 mg Ondansetron HCl (Zofran) 4 mg IV Q6H PRN PRN PRN Reason: NAUSEA/VOMITING Oxycodone HCl (Oxyir) 5 mg PO Q6H PRN PRN PRN Reason: SEVERE PAIN (6-03/28) Last Admin: 06/16/18 11:02 Dose: 5 mg Sertraline HCl (Zoloft) 100 mg PO DAILY [facility] Last Admin: 06/17/18 07:25 Dose: 100 mg Sodium Chloride () 5 - 15 ml IV UD PRN PRN Reason: SALINE FLUSH Last Admin: 06/16/18 04:36 Dose: 10 ml Medical Necessity - Tobacco Use Smoking Status: Never smoker Tobacco Use: Non-smoker Assessment/Plan All Active Problems Debility (Acute) 1. Debility * PT OT eval and treat * to TCU pending approval 2. LE extremity weakness. * progressive per pt, states that it is not due to knee pain * states she saw a disability doctor for this and was concerned about a more central process (i.e., MS) * MRI lumbar spine. unremarkable * noted weakness in LE, concern for area in L spine (pt denies incontinence) * check MRI of thoracic spine * neurology consulted * etiology unclear: MS, TM, psychosomatic? 3. DM2 * too tightly controlled * resume basal, but at lower dose * prandial to be SSI, for now. * fair control now 4. CKD 4 * Creatinine likely at baseline--unchanged since admission, but up from 2016 * monitor * avoid nephrotoxic medications * follow up with Nephrology as outpt. 5. left Knee pain * slight effusion on exam and xray * not warm--doubt septic arthritis * check ESR, CPR, uric acid * will need to follow up with her orthopaedist (supposedly is being consider for a R TKA) 6. DVT proph: SQ heparin. Code Visit Inpatient E&M: 79626 Subs Hosp L3
[2018-06-17 11:14] LABS: Erythrocyte Sedimentation Rate 93 mm/hr (0-30)
[2018-06-17 11:14] LABS: Eosinophil Ct. Urine 7 % (.)
[2018-06-17] MEDS: hydrALAZINE 20 MG/ML Vial 10 MG IV ×2 (11:15→20:07)
[2018-06-17 11:20] LABS: Bedside Glucose 200 mg/dL (70-110)
[2018-06-17] MEDS: LORazepam 1 MG Tablet PO (11:29)
[2018-06-17] MEDS: Insulin Lispro 100 UNIT/ML INSULN.PEN SC ×3 (11:52→21:57)
--- NOTE | 2018-06-17 12:21 | PCM.CONS.GEN ---
Reason for Consult Date of Consultation: 06/17/18 Reason for Consultation: weakness History of Present Illness: 58 yo right handed white female with progressive weakness of bilateral lower ext weakness. also reports arm stiffness. reports [id number] good since at least december. per admit note:The patient is a 58 year old F with past medical history as mentioned above presented to the emergency room because of fall and left knee pain. Patient stated that she was coming back from the bathroom, her left knee gave out and she fell on her left knee. After she fell down, she was not able to get up and her son tried multiple times to help her but he could not. She complained of left knee pain, throbbing pain, 7 out of 10 in severity, not radiating, aggravated by movement, relieved by rest and without associated symptoms. She mentioned that she had a history of osteoarthritis of both knees, more prominent on the right knee but this time, her pain was more severe on the left knee. She is supposed to go for knee replacement as outpatient but that was delayed because of uncontrolled diabetes. She denied any prodromal symptoms before she had a fall. Initially, the patient decided not to come to the emergency department but the home health nurse came in later and she advised her to come to the ED for evaluation. In the emergency room, her blood pressure was elevated, other vital signs are stable. Her routine blood work was remarkable for chronic anemia with stable hemoglobin, potassium of 3.3 and creatinine of 2.84. Her troponin was negative. EKG revealed sinus rhythm without evidence of acute ischemic changes. Her blood sugar was 53 and repeat blood sugar was 24 mg/dL. She was given 1 ampoule of D50 IV in the ER. X-ray of the left knee revealed arthritic changes of the left knee with small joint effusion, no acute fractures. She is being admitted for frequent falls, intractable left knee pain, physical debility and hypoglycemia. Past Medical History Past Medical History (Chronic Problems): Chronic Problems Hyperlipidemia (Chronic) Chronic kidney disease (Chronic) HTN (hypertension) (Chronic) Obesity (Chronic) DM2 (diabetes mellitus, type 2) (Chronic) Allergies codeine Allergy (Verified 06/14/18 17:11) Other CONFUSION latex Allergy (Verified 06/14/18 17:11) Hives Sulfa (Sulfonamide Antibiotics) Allergy (Verified 06/14/18 17:11) Rash Home Medications: Ambulatory Orders Medication Instructions Recorded Montelukast [Singulair] 10 mg PO QHS 10/29/13 Simvastatin [Zocor] 40 mg PO QHS 10/29/13 Fenofibrate [Tricor] 145 mg PO DAILY #30 tablet 11/01/13 Insulin Aspart [Novolog Flexpen] 30 units SC TIDCM 01/27/14 Acetaminophen [Tylenol Arthritis] 1,300 mg PO DAILY MDD PAIN 06/14/18 Atenolol [Tenormin (beta airam)] 100 mg PO DAILY 06/14/18 Gabapentin [Neurontin] 300 mg PO QHS 06/14/18 Insulin Degludec [Tresiba 50 units SQ QHS 06/14/18 Flextouch U-100] Lisinopril 40 mg PO DAILY 06/14/18 Multivit-Min/Iron/Folic/Lutein 1 tab PO DAILY 06/14/18 [Centrum Silver Women Tablet] Sertraline HCl 100 mg PO DAILY 06/14/18 Surgical History: cholecystectomy, - - Tubal ligation Psychiatric History: Depression HUMAN RESOURCES BENEFITS COORDINATOR History: No pertinent HUMAN RESOURCES BENEFITS COORDINATOR history Lives: Spouse/ Significant Other Smoking Status: Never smoker Tobacco Use: Non-smoker Alcohol: None Drugs: None - *Family History Maternal History Items: No pertinent history Paternal History Items: No pertinent history Review of Systems Constitutional: Denies: Chills, Fever, Weight Change HEENT: Denies: Head Aches, Sinus Congestion, Sinus Drainage Cardiovascular: Denies: Chest Pain, Palpitations Respiratory: Denies: Cough, Shortness of breath at rest, Sputum production Gastrointestinal: Denies: Abdominal Pain, Nausea, Vomiting Genitourinary: Denies: Dysuria Musculoskeletal: Denies: Joint Pain, Joint Tenderness Skin: Denies: Rash, Wounds Neurological: Reports: Focal weakness - bilateral weakness. Denies: Numbness, Tingling Psychiatric: Denies: Anxiety, Depression, Homicidal Ideations, Suicidal Ideations Hematologic/ Lymphatic: Denies: Easy Bruising, Easy Bleeding Patient Problems: Active and Suspected Problems Debility (Acute) - Physical Exam General: Alert, Oriented x3, Cooperative, No apparent distress Cardiovascular: Regular rate Abdomen: Bowel Sounds Present Extremities: Edema Neurological: Cranial nerves II-XII grossly intact, Deep Tendon Reflexes 2+/4 and Symmetrical, Neuro grossly intact Psych/Mental Status: Normal Affect Vital Signs Temp Pulse Resp BP Pulse Ox 36.6 C 62 16 181/78 H 99 06/17/18 11:17 06/17/18 11:17 06/17/18 11:17 06/17/18 11:54 06/17/18 11:17 Oxygen Delivery Method Room Air Weight: 103 kg Body Mass Index (BMI) 40.2 Intake and Output for Last 24 Hours 06/15/18 06/16/18 06/17/18 23:59 23:59 23:59 Intake Total 2173 / 2173 2791 / 2791 500 / 500 Output Total 200 / 200 2450 / 2450 1400 / 1400 Balance 1972 341 / 341 -900 / -900 Laboratory Tests Past 24 Hrs 06/14/18 06/17/18 06/17/18 19:15 06:30 06:30 WBC 7.6 RBC 3.68 L Hgb 9.5 L Hct 30.4 L MCV 82.6 MCH 25.8 L MCHC 31.3 L RDW 15.1 H RDW Differential 45.8 H Plt Count 299 MPV 10.5 Immature Gran % (Auto) 0.800 Neut % (Auto) 72.4 H Lymph % (Auto) 13.1 L Randolph % (Auto) 9.3 Eos % (Auto) 3.9 Baso % (Auto) 0.5 Absolute Neuts (auto) 5.5 Absolute Lymphs (auto) 1.00 Total Counted Not Reportable ESR Eos Smear Total Cells 7 Sodium 141 Potassium 4.5 Chloride 114 H Carbon Dioxide 19.0 L Anion Gap 8 BUN 47 H Creatinine 2.57 H Estim Creat Clear Calc 20.22 Est GFR (MDRD) Af Amer 25 L Est GFR (MDRD) Non-Af 21 L BUN/Creatinine Ratio 18.3 Glucose 114 H Uric Acid Calcium 8.4 L C-React Prot Ext Range 06/17/18 06/17/18 06:30 06:30 WBC RBC Hgb Hct MCV MCH MCHC RDW RDW Differential Plt Count MPV Immature Gran % (Auto) Neut % (Auto) Lymph % (Auto) Randolph % (Auto) Eos % (Auto) Baso % (Auto) Absolute Neuts (auto) Absolute Lymphs (auto) Total Counted ESR 93 H Eos Smear Total Cells Sodium Potassium Chloride Carbon Dioxide Anion Gap BUN Creatinine Estim Creat Clear Calc Est GFR (MDRD) Af Amer Est GFR (MDRD) Non-Af BUN/Creatinine Ratio Glucose Uric Acid 7.0 H Calcium C-React Prot Ext Range 43.90 H POC Glucose 06/17/18 06/17/18 06/16/18 11:11 06:45 21:38 POC Glucose 200 H 114 H 211 H 06/16/18 15:18 POC Glucose 253 H mri lumbar spine reviewed, no signif changes Assessment/Plan All Active Problems Debility (Acute) severe weakness associated with pain, edema, and markedly elevated esr/crp rec eval for rheum d/o steroids if no contraindication no mri on ncv needed
[2018-06-17 12:52] LABS: Rheumatoid Factor < 10.0 IU/mL (<15)
[2018-06-17 13:03] LABS: Thyroid Stim Hormone (TSH) 1.04 uIU/mL (0.358-3.74)
[2018-06-17] MEDS: predniSONE 20 MG Tablet 60 MG PO (14:56)
[2018-06-17 16:11] LABS: Bedside Glucose 198 mg/dL (70-110)
[2018-06-17] MEDS: 0.9% NaCl Peripheral Flush Adult/Peds IV (20:08)
[2018-06-17] MEDS: Atorvastatin Calcium 20 MG Tablet PO (21:57)
[2018-06-17] MEDS: Montelukast 10 MG Tablet PO (21:57)
[2018-06-17] MEDS: Gabapentin 300 MG Capsule PO (21:58)
[2018-06-17 22:11] LABS: Bedside Glucose 308 mg/dL (70-110)
[2018-06-18] VITALS (7 sets, daily range): BP systolic 165–186; BP diastolic 55–82; PULSE 62–68; RESP 16–18; TEMP 36.3–36.8; O2SAT 97–99; BMI 40.2
[2018-06-18] MEDS: 0.9% NaCl Peripheral Flush Adult/Peds IV (04:48)
[2018-06-18] MEDS: hydrALAZINE 20 MG/ML Vial 10 MG IV (04:48)
[2018-06-18] MEDS: Insulin Lispro 100 UNIT/ML INSULN.PEN SC ×4 (06:25→19:56)
[2018-06-18 06:31] LABS: Bedside Glucose 236 mg/dL (70-110)
[2018-06-18] MEDS: Sertraline 100 MG Tablet PO (08:57)
[2018-06-18] MEDS: Atenolol 100 MG Tablet PO (08:57)
[2018-06-18] MEDS: predniSONE 20 MG Tablet 60 MG PO (08:59)
[2018-06-18] MEDS: Heparin Injection (Vial) 5,000 UNIT/ML VIAL 5000 UNIT SC ×2 (10:29→22:15)
--- NOTE | 2018-06-18 11:01 | PCM.PROGNOTE ---
Subjective: The patient is a 58-year-old female with a PMH of hyperlipidemia, chronic renal failure, hypertension, obesity, osteoarthritis and type 2 diabetes mellitus presented to the emergency department at [facility] on 06/14/2018 after a fall complaining of left knee pain. Lab in the emergency room revealed hypoglycemia and she was given D50 W. Was admitted to the hospital with a diagnosis of frequent falls, intractable left knee pain, physical debility and hypoglycemia. She was seen in consultation by Dr. Shaw from neurology yesterday and he recommended a rheumatology evaluation due to markedly elevated ESR/CRP. He also recommended steroids if no contraindication. He did not feel a nerve conduction study was needed. An MRI of the lumbar spine showed lumbar spondylosis with disc herniations and foraminal narrowing at L4-5 and L5-S1. She was started on prednisone 60 mg daily on 06/17/2018. Afebrile. Colic blood pressure is not adequately controlled and current blood pressure is 178/82. She is 99% on room air currently. All labs personally reviewed. ESR was 93 and CRP is 43.9. Her motoric factor is less than 10. CCP and TIAGO are pending. Blood sugar today was 236 and the at bedtime blood sugar was 308. Hemoglobin A1c is 7.1 and TSH is within normal limits. In December she was working and then had to start using a cane and then a walker and now she is not able to lift either leg off the bed. She has had frequent falls. Recently fell on the left knee and now has an effusion. Has never seen a patrol inspector. She has seen ortho because of the knee pain and was told she needs a knee replacement. No FH of rheumatologic disease. She c/o dry mouth but not dry eyes. She has had non-healing wounds on her legs. Does not know why she has kidney failure. No hair loss. No difficulty swallowing. Denies red, hot swollen joints. She developed R foot drop a few months ago and no one has been able to tell her why. She states the pain in the left knee is better today - Physical Exam General: Alert, Oriented x3, Cooperative, - - tearful HEENT: Atraumatic, PERRLA, EOMI, Normocephalic Oral: Moist Mucosa, No Gingival or Mucosal Lesions/ Ulcerations Neck: Supple Lungs: Clear to auscultation Cardiovascular: Regular rate, Regular Rhythm, Normal S1, Normal S2, No Gallop Abdomen: Bowel Sounds Present, Soft, Non Tender, Non-Distended, Obese Extremities: No clubbing, No cyanosis, Edema - non-pitting of the legs and L>RUE swelling Skin: No rashes Neurological: Cranial nerves II-XII grossly intact, - - strength in the LE's is 2/5 on the R and 1/5 on the left. Good strength in the upper extremities. She has foot drop on the right. SLR is negative. Tells me that both feet are numb today Psych/Mental Status: Anxious - and tearful and afraid......wants a diagnosis so treatment will be effective Vital Signs Temp Pulse Resp BP Pulse Ox 97.3 F L 63 18 178/82 H 99 06/18/18 08:32 06/18/18 08:32 06/18/18 08:32 06/18/18 08:32 06/18/18 08:32 Oxygen Delivery Method Room Air Weight: 227 lb 1.218 oz Body Mass Index (BMI) 40.2 Intake and Output for Last 24 Hours 06/16/18 06/17/18 06/18/18 23:59 23:59 23:59 Intake Total 2791 / 2791 1150 / 1150 Output Total 2450 / 2450 1400 / 1400 Balance 341 / 341 -250 / -250 Laboratory Tests Past 24 Hrs 06/14/18 06/17/18 06/17/18 19:15 06:30 06:30 ESR 93 H Eos Smear Total Cells 7 PT Ratio INR APTT Thrombin Time Thrombin Time Mix Lupus Anticoag aPTT Uric Acid 7.0 H C-React Prot Ext Range 43.90 H TSH Rheumatoid Factor Cycl Citrul Peptide IgG TIAGO Screen LUCRECIA-1 Antibody SS-A/Ro IgG Antibody SS-B/La IgG Antibody Sm (Collier) Antibody MOBILE APPLICATION DEVELOPER Antibody Scl-70 Scleroderma Ab Double Strand DNA Ab Anti-ss DNA IgG Ab Centromere B Antibody Anti-Smooth Muscle Ab 06/17/18 06/17/18 06/18/18 06:30 06:30 05:15 ESR Eos Smear Total Cells PT Ratio INR APTT Thrombin Time Thrombin Time Mix Lupus Anticoag aPTT Uric Acid C-React Prot Ext Range TSH 1.04 Rheumatoid Factor < 10.0 Cycl Citrul Peptide IgG TIAGO Screen Pending LUCRECIA-1 Antibody Pending SS-A/Ro IgG Antibody Pending SS-B/La IgG Antibody Pending Sm (Collier) Antibody Pending MOBILE APPLICATION DEVELOPER Antibody Pending Scl-70 Scleroderma Ab Pending Double Strand DNA Ab Pending Anti-ss DNA IgG Ab Centromere B Antibody Pending Anti-Smooth Muscle Ab 06/18/18 05:15 ESR Eos Smear Total Cells PT Ratio Pending INR Pending APTT Pending Thrombin Time Pending Thrombin Time Mix Pending Lupus Anticoag aPTT Pending Uric Acid C-React Prot Ext Range TSH Rheumatoid Factor Cycl Citrul Peptide IgG Pending TIAGO Screen LUCRECIA-1 Antibody SS-A/Ro IgG Antibody SS-B/La IgG Antibody Sm (Collier) Antibody MOBILE APPLICATION DEVELOPER Antibody Scl-70 Scleroderma Ab Double Strand DNA Ab Anti-ss DNA IgG Ab Pending Centromere B Antibody Anti-Smooth Muscle Ab Pending POC Glucose 06/18/18 06/17/18 06/17/18 06:22 21:56 16:00 POC Glucose 236 H 308 H 198 H 06/17/18 11:11 POC Glucose 200 H Medical Necessity - Tobacco Use Smoking Status: Never smoker Tobacco Use: Non-smoker Assessment/Plan All Active Problems Debility (Acute) 1. 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 2. Diabetes mellitus type [id number] at home with a hemoglobin A1c of 7.1 at admission. 3. Chronic renal failure stage IV-etiology? 4. Osteoarthritis - inflammatory arthritis? 5. Hyperlipidemia 6. Hypertension 7. Obesity 8. Hyperuricemia-question significance? Exam is not consistent with acute gouty arthritis of the Left knee US of the kidneys and the LUE SSA and SSB, HLA B27, total CPK, (total CK is only 30) Blood sugars are uncontrolled-will adjust insulin-we will likely need more than her insulin regimen at home since she is on high-dose steroids presently. May need to consider transfer to a hospital with rheumatology on staff if we can not get an appt with a patrol inspector in the near future Plan transfer to rehab unit Code Visit Inpatient E&M: [id number] Subs Hosp L3
--- NOTE | 2018-06-18 11:05 | PCM.PN.NEU ---
Subjective: reports leg pain improved - Physical Exam General: Alert, Oriented x3, Cooperative, No apparent distress Extremities: No Calf Tenderness Neurological: Cranial nerves II-XII grossly intact, - - lle 1/5, rle 2/5 Vital Signs Temp Pulse Resp BP Pulse Ox 36.3 C L 63 18 178/82 H 99 06/18/18 08:32 06/18/18 08:32 06/18/18 08:32 06/18/18 08:32 06/18/18 08:32 Oxygen Delivery Method Room Air Weight: 103 kg Body Mass Index (BMI) 40.2 Intake and Output for Last 24 Hours 06/16/18 06/17/18 06/18/18 23:59 23:59 23:59 Intake Total 2791 / 2791 1150 / 1150 Output Total 2450 / 2450 1400 / 1400 Balance 341 / 341 -250 / -250 Laboratory Tests Past 24 Hrs 06/14/18 06/17/18 06/17/18 19:15 06:30 06:30 ESR 93 H Eos Smear Total Cells 7 PT Ratio INR APTT Thrombin Time Thrombin Time Mix Lupus Anticoag aPTT Uric Acid 7.0 H C-React Prot Ext Range 43.90 H TSH Rheumatoid Factor Cycl Citrul Peptide IgG TIAGO Screen LUCRECIA-1 Antibody SS-A/Ro IgG Antibody SS-B/La IgG Antibody Sm (Collier) Antibody BREASTFEEDING PROGRAM COORDINATOR Antibody Scl-70 Scleroderma Ab Double Strand DNA Ab Anti-ss DNA IgG Ab Centromere B Antibody Anti-Smooth Muscle Ab 06/17/18 06/17/18 06/18/18 06:30 06:30 05:15 ESR Eos Smear Total Cells PT Ratio INR APTT Thrombin Time Thrombin Time Mix Lupus Anticoag aPTT Uric Acid C-React Prot Ext Range TSH 1.04 Rheumatoid Factor < 10.0 Cycl Citrul Peptide IgG TIAGO Screen Pending LUCRECIA-1 Antibody Pending SS-A/Ro IgG Antibody Pending SS-B/La IgG Antibody Pending Sm (Collier) Antibody Pending BREASTFEEDING PROGRAM COORDINATOR Antibody Pending Scl-70 Scleroderma Ab Pending Double Strand DNA Ab Pending Anti-ss DNA IgG Ab Centromere B Antibody Pending Anti-Smooth Muscle Ab 06/18/18 05:15 ESR Eos Smear Total Cells PT Ratio Pending INR Pending APTT Pending Thrombin Time Pending Thrombin Time Mix Pending Lupus Anticoag aPTT Pending Uric Acid C-React Prot Ext Range TSH Rheumatoid Factor Cycl Citrul Peptide IgG Pending TIAGO Screen LUCRECIA-1 Antibody SS-A/Ro IgG Antibody SS-B/La IgG Antibody Sm (Collier) Antibody BREASTFEEDING PROGRAM COORDINATOR Antibody Scl-70 Scleroderma Ab Double Strand DNA Ab Anti-ss DNA IgG Ab Pending Centromere B Antibody Anti-Smooth Muscle Ab Pending POC Glucose 06/18/18 06/17/18 06/17/18 06:22 21:56 16:00 POC Glucose 236 H 308 H 198 H 06/17/18 11:11 POC Glucose 200 H Medical Necessity - Tobacco Use Smoking Status: Never smoker Tobacco Use: Non-smoker Assessment/Plan All Active Problems Debility (Acute) severe weakness associated with pain, edema, and markedly elevated esr/crp. improved after one does steroids check cpk rec eval for rheum d/o continue slow steroid taper no mri on ncv needed
--- NOTE | 2018-06-18 11:13 | PN_ITS ---
Subjective: The patient is a 58-year-old female with a PMH of hyperlipidemia, chronic renal failure, hypertension, obesity, osteoarthritis and type 2 diabetes mellitus presented to the emergency department at [facility] on 06/14/2018 after a fall complaining of left knee pain. Lab in the emergency room revealed hypoglycemia and she was given D50 W. Was admitted to the hospital with a diagnosis of frequent falls, intractable left knee pain, physical debility and hypoglycemia. She was seen in consultation by Dr. Shaw from neurology yesterday and he recommended a rheumatology evaluation due to markedly elevated ESR/CRP. He also recommended steroids if no contraindication. He did not feel a nerve conduction study was needed. An MRI of the lumbar spine showed lumbar spondylosis with disc herniations and foraminal narrowing at L4-5 and L5-S1. She was started on prednisone 60 mg daily on 06/17/2018. Afebrile. Colic blood pressure is not adequately controlled and current blood pressure is 178/82. She is 99% on room air currently. All labs personally reviewed. ESR was 93 and CRP is 43.9. Her motoric factor is less than 10. CCP and TIAGO are pending. Blood sugar today was 236 and the at bedtime blood sugar was 308. Hemoglobin A1c is 7.1 and TSH is within normal limits. In December she was working and then had to start using a cane and then a walker and now she is not able to lift either leg off the bed. She has had frequent falls. Recently fell on the left knee and now has an effusion. Has never seen a rheu matologist. She has seen ortho because of the knee pain and was told she needs a knee replacement. No FH of rheumatologic disease. She c/o dry mouth but not dry eyes. She has had non-healing wounds on her legs. Does not know why she has kidney failure. No hair loss. No difficulty swallowing. Denies red, hot swollen joints. She developed R foot drop a few months ago and no one has been able to tell her why. She states the pain in the left knee is better today - Physical Exam General: Alert, Oriented x3, Cooperative, - - tearful HEENT: Atraumatic, PERRLA, EOMI, Normocephalic Oral: Moist Mucosa, No Gingival or Mucosal Lesions/ Ulcerations Neck: Supple Lungs: Clear to auscultation Cardiovascular: Regular rate, Regular Rhythm, Normal S1, Normal S2, No Gallop Abdomen: Bowel Sounds Present, Soft, Non Tender, Non-Distended, Obese Extremities: No clubbing, No cyanosis, Edema - non-pitting of the legs and L>RUE swelling Skin: No rashes Neurological: Cranial nerves II-XII grossly intact, - - strength in the LE's is 2/5 on the R and 1/5 on the left. Good strength in the upper extremities. She has foot drop on the right. SLR is negative. Tells me that both feet are numb today Psych/Mental Status: Anxious - and tearful and afraid......wants a diagnosis so treatment will be effective Vital Signs Temp Pulse Resp BP Pulse Ox 97.3 F L 63 18 178/82 H 99 06/18/18 08:32 06/18/18 08:32 06/18/18 08:32 06/18/18 08:32 06/18/18 08:32 Oxygen Delivery Method Room Air Weight: 227 lb 1.218 oz Body Mass Index (BMI) 40.2 Intake and Output for Last 24 Hours 06/16/18 06/17/18 06/18/18 23:59 23:59 23:59 Intake Total 2791 / 2791 1150 / 1150 Output Total 2450 / 2450 1400 / 1400 Balance 341 / 341 -250 / -250 Laboratory Tests Past 24 Hrs 06/14/18 06/17/18 06/17/18 19:15 06:30 06:30 ESR 93 H Eos Smear Total Cells 7 PT Ratio INR APTT Thrombin Time Thrombin Time Mix Lupus Anticoag aPTT Uric Acid 7.0 H C-React Prot Ext Range 43.90 H TSH Rheumatoid Factor Cycl Citrul Peptide IgG TIAGO Screen LUCRECIA-1 Antibody SS-A/Ro IgG Antibody SS-B/La IgG Antibody Sm (Collier) Antibody SEED DISTRICT SALES MANAGER Antibody Scl-70 Scleroderma Ab Double Strand DNA Ab Anti-ss DNA IgG Ab Centromere B Antibody Anti-Smooth Muscle Ab 06/17/18 06/17/18 06/18/18 06:30 06:30 05:15 ESR Eos Smear Total Cells PT Ratio INR APTT Thrombin Time Thrombin Time Mix Lupus Anticoag aPTT Uric Acid C-React Prot Ext Range TSH 1.04 Rheumatoid Factor < 10.0 Cycl Citrul Peptide IgG TIAGO Screen Pending LUCRECIA-1 Antibody Pending SS-A/Ro IgG Antibody Pending SS-B/La IgG Antibody Pending Sm (Collier) Antibody Pending SEED DISTRICT SALES MANAGER Antibody Pending Scl-70 Scleroderma Ab Pending Double Strand DNA Ab Pending Anti-ss DNA IgG Ab Centromere B Antibody Pending Anti-Smooth Muscle Ab 06/18/18 05:15 ESR Eos Smear Total Cells PT Ratio Pending INR Pending APTT Pending Thrombin Time Pending Thrombin Time Mix Pending Lupus Anticoag aPTT Pending Uric Acid C-React Prot Ext Range TSH Rheumatoid Factor Cycl Citrul Peptide IgG Pending TIAGO Screen LUCRECIA-1 Antibody SS-A/Ro IgG Antibody SS-B/La IgG Antibody Sm (Collier) Antibody SEED DISTRICT SALES MANAGER Antibody Scl-70 Scleroderma Ab Double Strand DNA Ab Anti-ss DNA IgG Ab Pending Centromere B Antibody Anti-Smooth Muscle Ab Pending POC Glucose 06/18/18 06/17/18 06/17/18 06:22 21:56 16:00 POC Glucose 236 H 308 H 198 H 06/17/18 11:11 POC Glucose 200 H Medical Necessity - Tobacco Use Smoking Status: Never smoker Tobacco Use: Non-smoker Assessment/Plan All Active Problems Debility (Acute) 1. 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 2. Diabetes mellitus type [id number] at home with a hemoglobin A1c of 7.1 at admission. 3. Chronic renal failure stage IV-etiology? 4. Osteoarthritis - inflammatory arthritis? 5. Hyperlipidemia 6. Hypertension 7. Obesity 8. Hyperuricemia-question significance? Exam is not consistent with acute gouty arthritis of the Left knee US of the kidneys and the LUE SSA and SSB, HLA B27, total CPK, (total CK is only 30) Blood sugars are uncontrolled-will adjust insulin-we will likely need more than her insulin regimen at home since she is on high-dose steroids presently. May need to consider transfer to a hospital with rheumatology on staff if we can not get an appt with a chemical engineering intern in the near future Plan transfer to rehab unit Code Visit Inpatient E&M: [id number] Subs Hosp L3
[2018-06-18 11:40] LABS: Bedside Glucose 251 mg/dL (70-110)
--- NOTE | 2018-06-18 13:44 | US_ITS ---
STUDY: RENAL ULTRASOUND - COMPLETE REASON FOR EXAM: Female, 58 years old. Acute renal failure TECHNIQUE: Ultrasound evaluation of the kidneys was performed with real-time and static aceves-scale imaging. COMPARISON: None. FINDINGS: RIGHT KIDNEY: Normal location of the right kidney, which is normal in size. The right kidney measures 11.4 x 4.9 x 5.4 cm. There is echogenic cortex of the right kidney. The renal cortex measures 1.0 cm. There is a 2 cm cyst. There are no right renal calculi. There is no right hydronephrosis. DISTAL RIGHT URETER: There is non-visualization of the distal right ureter. LEFT KIDNEY: Normal location of the left kidney, which is normal in size. The left kidney measures 10.9 x 4.9 x 5.0 cm. There is a lobulated mildly echogenic cortex of the left kidney. 6 mm echogenic focus of the left renal cortex possibly focal calcifications. The renal cortex measures 1.3 cm. There is a 4.8 cm cyst. There are no left renal calculi. There is no left hydronephrosis. DISTAL LEFT URETER: There is non-visualization of the distal left ureter. BLADDER: The distended urinary bladder has a volume of 160 ml. There is mild increased wall thickness of the distended urinary bladder measuring 4.4 mm. There is no demonstrated mass within the urinary bladder. There are no demonstrated bladder calculi. US/Kidney and Bladder IMPRESSION: Echogenic cortex of the kidneys suggesting medical renal disease. Bilateral renal cysts. Possible cortical calcifications of the left kidney. Mild wall thickening of the urinary bladder. Electronically Signed: Vinicius Arevalo DO at 22:51 EST Tel [phone], Service support ,
--- NOTE | 2018-06-18 13:50 | VDUE_ITS ---
Reason For Study: LUE swelling Left Proximal Left jugular vein is spontaneous, widely patent, phasic, with no intraluminal echogenicity noted. Left subclavian vein is spontaneous, widely patent, phasic, with no intraluminal echogenicity noted. Left Arm Left axillary vein is spontaneous, patent, phasic, competent, compressible and demonstrates augmentation. Left brachial vein is compressible. Left cephalic vein is compressible. Left basilic vein is compressible. Left Lower Arm Left radial vein is compressible. Left ulnar vein is compressible. Interpretation Summary Deep veins of the left upper extremity are patent and compressible segmentally. There is no evidence of deep vein thrombosis. The superficial veins of the left upper extremity, the basilic and cephalic veins, are patent and compressible. There is no evidence of left upper extremity superficial thrombophlebitis involving the veins imaged. Ordering Physician: Mera Tanner Referring Physician: Param Razo Performed By: Jada Hernandez RVT ?
[2018-06-18 15:30] LABS: CPK Total, Creatine Kinase 30 U/L (26-192)
[2018-06-18] MEDS: hydrALAZINE 25 MG Tablet PO ×2 (16:44→22:15)
[2018-06-18 16:50] LABS: Bedside Glucose 376 mg/dL (70-110)
[2018-06-18 19:41] LABS: Bedside Glucose 429 mg/dL (70-110)
[2018-06-18] MEDS: Glucerna Shake 120 ML LIQUID PO (22:15)
[2018-06-18] MEDS: Atorvastatin Calcium 20 MG Tablet PO (22:15)
[2018-06-18] MEDS: Montelukast 10 MG Tablet PO (22:15)
[2018-06-18] MEDS: Gabapentin 300 MG Capsule PO (22:15)
[2018-06-18] MEDS: Mupirocin Ointment 22gm Tube 1 APPLIC TOPICAL (22:16)
[2018-06-19] VITALS (7 sets, daily range): BP systolic 143–194; BP diastolic 72–80; PULSE 58–69; RESP 16–18; TEMP 36.7–37; O2SAT 95–98
[2018-06-19] MEDS: hydrALAZINE 25 MG Tablet PO ×2 (03:52→06:12)
[2018-06-19] MEDS: Insulin Lispro 100 UNIT/ML INSULN.PEN SC ×3 (06:52→11:47)
[2018-06-19 07:01] LABS: Bedside Glucose 240 mg/dL (70-110)
--- NOTE | 2018-06-19 08:13 | PCM.PROGNOTE ---
Subjective: All events the past 24 hours of been reviewed. She is afebrile. Blood pressures have been elevated and have ranged from 165/62-190 4/75 over the past 24 hours. Heart rate is in the 60s. She is 98% saturated on room air. Blood sugars are not adequately controlled secondary to high-dose prednisone and her fasting blood sugar today is 240. Venous ultrasound of the left upper extremity revealed no evidence of deep vein thrombosis. Ultrasound of the kidney showed echogenic cortex suggesting medical renal disease. There are bilateral renal cysts. There is mild wall thickening of the urinary bladder. All lab was personally reviewed. BUN is 63 with a creatinine of 2.73 today. Creatinine on 06/17/2018 was 2.57. Urine output on 06/18/2018 was 1600 cc. Plus....has been incontinent Blood sugars have been uncontrolled secondary to high-dose steroids and she has had polyuria. Hemoglobin has increased today and I suspect that she has dehydration. She has seen Dr. Lew in the past once and then never followed up. She tells me the pain in her left leg is better today. Objective: PHYSICAL EXAM: GENERAL: alert, oriented X 3, Cooperative, NAD, not tearful today ORAL: Dry mucosa, no mucosal lesions NECK: No JVD, supple, trachea midline LUNGS: CTA, symmetric chest expansion HEART: RRR, Normal S1 and S2, no rub, no gallop ABDOMEN: soft, NT, ND, BS present, no guarding with palpation EXTREMITIES: non pitting edema, no cyanosis, no calf tenderness SKIN: No rashes, no breakdown NEUROLOGIC: Still with 1/5 strength in the LLE and 2-3/5 in the RLE. Foot droop on the R PSYCH: appropriate, normal affect, pleasant - Physical Exam Vital Signs Temp Pulse Resp BP Pulse Ox 98.6 F 61 16 185/77 H 98 06/19/18 03:52 06/19/18 06:12 06/19/18 03:52 06/19/18 06:12 06/19/18 03:52 Oxygen Delivery Method Room Air Weight: 227 lb 1.218 oz Body Mass Index (BMI) 40.2 Intake and Output for Last 24 Hours 06/17/18 06/18/18 06/19/18 23:59 23:59 23:59 Intake Total 1150 / 1150 1600 / 1600 950 / 950 Output Total 1400 / 1400 Balance -250 / -250 1600 / 1600 950 / 950 Laboratory Tests Past 24 Hrs 06/18/18 06/18/18 06/18/18 05:15 11:00 15:30 Total Creatine Kinase 30 CK Isoenzymes Pending CK-MM (CK-3) Pending CK-MB (CK-2) Pending CK-BB (CK-1) Pending Anti-ss DNA IgG Ab Pending Complement C3 Pending Complement C4 Pending HLA-B27 Pending POC Glucose 06/19/18 06/18/18 06/18/18 06:51 19:34 16:36 POC Glucose 240 H 429 H 376 H 06/18/18 11:06 POC Glucose 251 H Medical Necessity - Tobacco Use Smoking Status: Never smoker Tobacco Use: Non-smoker Assessment/Plan All Active Problems Debility (Acute) 1. 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 2. Diabetes mellitus type 4-[id number] at home with a hemoglobin A1c of 7.1 at admission. 3. Chronic renal failure stage IV-etiology? 4. Osteoarthritis - inflammatory arthritis? 5. Hyperlipidemia 6. Hypertension 7. Obesity 8. Hyperuricemia-question significance? Exam is not consistent with acute gouty arthritis of the Left knee adjust the insulin regimen and add scheduled meal time humalog in addition to the SSI Check a BMP and CBC now Waiting for the results of rheumatology W/U. No SW today. Tomorrow will see if we can get her in to see a fish butcher in the next 2 weeks Increase hydralazine to 50 mg p.o. 3 times daily Start normal saline at 75 cc/h rehab unit at [place]? Code Visit Inpatient E&M: 30951 Subs Hosp L2
--- NOTE | 2018-06-19 08:20 | PN_ITS ---
Subjective: All events the past 24 hours of been reviewed. She is afebrile. Blood pressures have been elevated and have ranged from 165/62-190 4/75 over the past 24 hours. Heart rate is in the 60s. She is 98% saturated on room air. Blood sugars are not adequately controlled secondary to high-dose prednisone and her fasting blood sugar today is 240. Venous ultrasound of the left upper extremity revealed no evidence of deep vein thrombosis. Ultrasound of the kidney showed echogenic cortex suggesting medical renal disease. There are bilateral renal cysts. There is mild wall thickening of the urinary bladder. All lab was personally reviewed. BUN is 63 with a creatinine of 2.73 today. Creatinine on 06/17/2018 was 2.57. Urine output on 06/18/2018 was 1600 cc. Plus....has been incontinent Blood sugars have been uncontrolled secondary to high-dose steroids and she has had polyuria. Hemoglobin has increased today and I suspect that she has dehydra tion. She has seen Dr. Lew in the past once and then never followed up. She tells me the pain in her left leg is better today. Objective: PHYSICAL EXAM: GENERAL: alert, oriented X 3, Cooperative, NAD, not tearful today ORAL: Dry mucosa, no mucosal lesions NECK: No JVD, supple, trachea midline LUNGS: CTA, symmetric chest expansion HEART: RRR, Normal S1 and S2, no rub, no gallop ABDOMEN: soft, NT, ND, BS present, no guarding with palpation EXTREMITIES: non pitting edema, no cyanosis, no calf tenderness SKIN: No rashes, no breakdown NEUROLOGIC: Still with 1/5 strength in the LLE and 2-3/5 in the RLE. Foot droop on the R PSYCH: appropriate, normal affect, pleasant - Physical Exam Vital Signs Temp Pulse Resp BP Pulse Ox 98.6 F 61 16 185/77 H 98 06/19/18 03:52 06/19/18 06:12 06/19/18 03:52 06/19/18 06:12 06/19/18 03:52 Oxygen Delivery Method Room Air Weight: 227 lb 1.218 oz Body Mass Index (BMI) 40.2 Intake and Output for Last 24 Hours 06/17/18 06/18/18 06/19/18 23:59 23:59 23:59 Intake Total 1150 / 1150 1600 / 1600 950 / 950 Output Total 1400 / 1400 Balance -250 / -250 1600 / 1600 950 / 950 Laboratory Tests Past 24 Hrs 06/18/18 06/18/18 06/18/18 05:15 11:00 15:30 Total Creatine Kinase 30 CK Isoenzymes Pending CK-MM (CK-3) Pending CK-MB (CK-2) Pending CK-BB (CK-1) Pending Anti-ss DNA IgG Ab Pending Complement C3 Pending Complement C4 Pending HLA-B27 Pending POC Glucose 06/19/18 06/18/18 06/18/18 06:51 19:34 16:36 POC Glucose 240 H 429 H 376 H 06/18/18 11:06 POC Glucose 251 H Medical Necessity - Tobacco Use Smoking Status: Never smoker Tobacco Use: Non-smoker Assessment/Plan All Active Problems Debility (Acute) 1. 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 2. Diabetes mellitus type 2-[id number] at home with a hemoglobin A1c of 7.1 at admission. 3. Chronic renal failure stage IV-etiology? 4. Osteoarthritis - inflammatory arthritis? 5. Hyperlipidemia 6. Hypertension 7. Obesity 8. Hyperuricemia-question significance? Exam is not consistent with acute gouty arthritis of the Left knee adjust the insulin regimen and add scheduled meal time humalog in addition to the SSI Check a BMP and CBC now Waiting for the results of rheumatology W/U. No SW today. Tomorrow will see if we can get her in to see a roofing laborer in the next 2 weeks Increase hydralazine to 50 mg p.o. 3 times daily Start normal saline at 75 cc/h rehab unit at [place]? Code Visit Inpatient E&M: 35131 Subs Hosp L2
[2018-06-19] MEDS: Sertraline 100 MG Tablet PO (08:41)
[2018-06-19] MEDS: Mupirocin Ointment 22gm Tube 1 APPLIC TOPICAL ×2 (08:41→22:13)
[2018-06-19] MEDS: Heparin Injection (Vial) 5,000 UNIT/ML VIAL 5000 UNIT SC ×2 (08:41→22:13)
[2018-06-19] MEDS: predniSONE 20 MG Tablet 60 MG PO (08:41)
[2018-06-19] MEDS: Glucerna Shake 120 ML LIQUID PO ×4 (08:41→22:12)
[2018-06-19] MEDS: Atenolol 100 MG Tablet PO (08:41)
[2018-06-19 09:49] LABS: Hematocrit 31.5 % (37-47); Hemoglobin 10.1 g/dl (12.0-15.0); Mean Corp Hgb Conc 32.1 g/gl (32-36); Mean Corpuscular Hgb 26.8 pg (27.0-32.0); Mean Corpuscular Volume 83.6 fL (81-99); Mean Platelet Vol. 11.3 fl (6.2-12.0); Platelet Count 373 K/mm3 (150-450); RBC Distribution Width CV 14.9 % (11.6-14.6); RBC Distribution Width SD 44.3 fl (35.1-43.9); Red Blood Count 3.77 M/mm3 (4.2-5.4); White Blood Count 9.5 K/mm3 (4.4-11.0)
[2018-06-19 09:52] LABS: Scan Indicated on CBC? Y/N NO
[2018-06-19 10:13] LABS: Anion Gap 10 (5-15); BUN 63 mg/dL (7-18); BUN/Creat Ratio 23.1 RATIO (10-20); Calcium,Total 8.7 mg/dL (8.5-10.1); Chloride 108 mmol/L (98-107); Creatinine, Serum 2.73 mg/dL (0.55-1.02); EST Glomerular Filtration Rate 19 mL/min (>60); Est Glom Filt Rate - Afr Amer 23 mL/min (>60); Estimated Creatinine Clearance 19.03 ml/min; Glucose 227 mg/dL (74-106); Potassium 4.7 mmol/L (3.5-5.1); Sodium Level 139 mmol/L (136-145)
[2018-06-19 12:07] LABS: Bedside Glucose 322 mg/dL (70-110)
[2018-06-19] MEDS: hydrALAZINE 50 MG Tablet PO ×2 (14:05→22:14)
[2018-06-19 15:52] LABS: Bedside Glucose 313 mg/dL (70-110)
[2018-06-19] MEDS: Insulin Lispro 100 UNIT/ML INSULN.PEN 9 UNIT SC (17:23)
[2018-06-19] MEDS: 0.9% Normal Saline 1,000 ML 75 ML IV (22:12)
[2018-06-19] MEDS: Atorvastatin Calcium 20 MG Tablet PO (22:12)
[2018-06-19] MEDS: oxyCODONE 5 MG Tablet PO (22:12)
[2018-06-19] MEDS: Gabapentin 300 MG Capsule PO (22:14)
[2018-06-19] MEDS: Montelukast 10 MG Tablet PO (22:14)
[2018-06-19 22:26] LABS: Bedside Glucose 301 mg/dL (70-110)
[2018-06-20] VITALS (11 sets, daily range): BP systolic 154–216; BP diastolic 54–108; PULSE 58–65; RESP 16–18; TEMP 36.2–36.9; O2SAT 95–98
[2018-06-20] MEDS: hydrALAZINE 20 MG/ML Vial 10 MG IV (02:13)
[2018-06-20] MEDS: hydrALAZINE 50 MG Tablet PO ×2 (06:05→14:16)
[2018-06-20 06:06] LABS: Anion Gap 11 (5-15); BUN 70 mg/dL (7-18); BUN/Creat Ratio 26.2 RATIO (10-20); Calcium,Total 8.6 mg/dL (8.5-10.1); Chloride 109 mmol/L (98-107); Creatinine, Serum 2.67 mg/dL (0.55-1.02); EST Glomerular Filtration Rate 20 mL/min (>60); Est Glom Filt Rate - Afr Amer 24 mL/min (>60); Estimated Creatinine Clearance 19.46 ml/min; Glucose 217 mg/dL (74-106); Sodium Level 139 mmol/L (136-145)
[2018-06-20] MEDS: predniSONE 20 MG Tablet 60 MG PO (07:55)
[2018-06-20 07:56] LABS: Bedside Glucose 163 mg/dL (70-110)
[2018-06-20] MEDS: Mupirocin Ointment 22gm Tube 1 APPLIC TOPICAL (09:17)
[2018-06-20] MEDS: Sertraline 100 MG Tablet PO (09:18)
[2018-06-20] MEDS: Atenolol 100 MG Tablet PO (09:18)
[2018-06-20] MEDS: Heparin Injection (Vial) 5,000 UNIT/ML VIAL 5000 UNIT SC (09:18)
[2018-06-20] MEDS: Glucerna Shake 120 ML LIQUID PO ×3 (09:20→17:04)
[2018-06-20 11:26] LABS: Bedside Glucose 309 mg/dL (70-110)
[2018-06-20] MEDS: Insulin Lispro 100 UNIT/ML INSULN.PEN SC (12:07)
[2018-06-20] MEDS: Insulin Lispro 100 UNIT/ML INSULN.PEN 14 UNIT SC ×2 (12:07→17:06)
--- NOTE | 2018-06-20 12:23 | VDUE_ITS ---
Reason For Study: Pre op dialysis access placement Right Arm Left Arm Right Cephalic Vein in the forearm Left Cephalic Vein at the wrist measures .30 measures .29 x .30 cm. x .34 cm. Right Cephalic Vein below antecub Left Cephalic Vein in the forearm measures .26 x .27 cm. measures .32 x .33 cm. Right Cephalic Vein above antecub Left Cephalic Vein below antecub measures .40 x .40 cm. measures .35 x .33 cm. Right Cephalic Vein mid bicep measures .33 Cephalic v at antecubital space for short x .31 cm. segment is partially compressible with Right Cephalic Vein at the shoulder intraluminal echoes. measures .35 x .35 cm. Left Cephalic Vein above antecub Right Basilic Vein at the origin measures .43 x .47 cm. measures .39 x .37 cm. Left Cephalic Vein at mid bicep measures .37 Right Basilic Vein mid bicep measures .36 x .39 cm. x .37 cm. Left Cephalic Vein at the shoulder Right Basilic Vein above antecub measures .36 x .36 cm. measures .40 x .40 cm. Basilic vein at origin measures .31 x .34 Brachial artery - .47 x .47 cm with a cm. velocity of 89.6 cm/s Basilic vein at bicep measures .41 x .42 cm. Radial artery - .23 x .20 cm with a velocity Basilic vein above antecub measures .47 of 108.0 cm/s x .47 cm. Brachial artery - .45 x .45 cm with a Cephalic v at wrist not assessed due to IV velocity of 133.0 cm/s placement. Radial artery - .28 x .28 cm with a velocity of 124.0 cm/s. Interpretation Summary Short segment superficial thrombophlebitis left cephalic vein at the antecubital space Otherwise, patent and compressible bilateral upper extremity cephalic and basilic veins with dimensions as noted. IV noted in the right wrist! Adequate left radial and brachial arterial flow Ordering Physician: Bairon Payan Referring Physician: Param Razo Performed By: Jada Hernandez RVT ?
--- NOTE | 2018-06-20 12:24 | PCM.CONS.GEN ---
Problem List (1) Chronic kidney disease Status: Chronic Qualifiers: Chronic kidney disease stage: stage 4 (severe) Qualified Code(s): N18.4 - Chronic kidney disease, stage 4 (severe) Reason for Consult Date of Consultation: 06/20/18 History of Present Illness: The patient is a 58 year old F who I have been asked to see by Dr. Jillian Lew because of chronic renal disease aggravated by the acute component during her hospitalization. Written copy of my surgical consult recommendations will be provided electronically in the chart. They will be returned to her. The patient was admitted on June 14, 2018 with hyperlipidemia and chronic kidney disease and hypertension and obesity and diabetes mellitus type 2 with a history of 15-20 falls in the recent past with extreme leg weakness. She is currently still undergoing evaluation for her significant progressive bilateral lower extremity weakness. On her presentation her hemoglobin was 10.3 and hematocrit 32 with a platelet count of 318,000. Potassium was 3.3. BUN 45 with a creatinine of 2.84 and estimated creatinine clearance of 17.5. On June 18, 2018 renal ultrasound was performed that shows echogenic cortex of the kidneys suggesting medical renal disease. Bilateral renal cysts. Possible cortical calcifications left kidney. Mild wall thickening of the urinary bladder. On that same day the patient had a left upper extremity venous duplex exam inspected for possible DVT due to swelling. That was negative for DVT. As of today her potassium is 5 with a BUN of 70 and a creatinine of 2.67. She is a insulin requiring diabetic. She denies myocardial infarction or CVA. She denies history of DVT. Her medications include atorvastatin and gabapentin and glucagon and subcu heparin and hydralazine and insulin and prednisone at 60 mg daily and sertraline Patient is right arm dominant Past Medical History Past Medical History (Chronic Problems): Chronic Problems Hyperlipidemia (Chronic) Chronic kidney disease (Chronic) HTN (hypertension) (Chronic) Obesity (Chronic) DM2 (diabetes mellitus, type 2) (Chronic) Allergies codeine Allergy (Verified 06/14/18 17:11) Other CONFUSION latex Allergy (Verified 06/14/18 17:11) Hives Sulfa (Sulfonamide Antibiotics) Allergy (Verified 06/14/18 17:11) Rash Home Medications: Ambulatory Orders Medication Instructions Recorded Montelukast [Singulair] 10 mg PO QHS 10/29/13 Simvastatin [Zocor] 40 mg PO QHS 10/29/13 Fenofibrate [Tricor] 145 mg PO DAILY #30 tablet 11/01/13 Insulin Aspart [Novolog Flexpen] 30 units SC TIDCM 01/27/14 Acetaminophen [Tylenol Arthritis] 1,300 mg PO DAILY MDD PAIN 06/14/18 Atenolol [Tenormin (beta airam)] 100 mg PO DAILY 06/14/18 Gabapentin [Neurontin] 300 mg PO QHS 06/14/18 Insulin Degludec [Tresiba 50 units SQ QHS 06/14/18 Flextouch U-100] Lisinopril 40 mg PO DAILY 06/14/18 Multivit-Min/Iron/Folic/Lutein 1 tab PO DAILY 06/14/18 [Centrum Silver Women Tablet] Sertraline HCl 100 mg PO DAILY 06/14/18 Surgical History: cholecystectomy, - - Tubal ligation Psychiatric History: Depression DOCUMENTATION COORDINATOR History: No pertinent DOCUMENTATION COORDINATOR history Lives: Spouse/ Significant Other Smoking Status: Never smoker Tobacco Use: Non-smoker Alcohol: None Drugs: None - *Family History Maternal History Items: No pertinent history Paternal History Items: No pertinent history Review of Systems Constitutional: Denies: Anorexia HEENT: Denies: Difficulty Swallowing Cardiovascular: Reports: - - Bilateral radial and brachial and carotids and femoral and popliteal pulses are 3+. No carotid bruits. Denies: Chest Pain Respiratory: Denies: Cough Gastrointestinal: Denies: Abdominal Pain, Constipation Musculoskeletal: Reports: Joint swelling, Leg Pain, - - Significant left knee pain Skin: Reports: - - Left mid dorsal forearm 1.5 cm diameter erythematous dry ulcer Left olecranon 1 cm diameter dry superficial ulcer, - - Bilateral arms are edematous with no visible superficial veins. Multiple areas of percutaneous access left antecubital space with some mild erythema and induration at the antecubital space Neurological: Reports: - - Foot drop on the right. Diminished motor function bilateral extremities., - - Aware of her situation and place - Physical Exam Vital Signs Temp Pulse Resp BP Pulse Ox 97.7 F L 58 L 18 154/108 H 95 06/20/18 08:15 06/20/18 08:15 06/20/18 08:15 06/20/18 08:15 06/20/18 08:15 Oxygen Delivery Method Room Air Weight: 227 lb 1.218 oz Body Mass Index (BMI) 40.2 Intake and Output for Last 24 Hours 06/18/18 06/19/18 06/20/18 23:59 23:59 23:59 Intake Total 1600 / 1600 2250 / 2250 281 / 281 Balance 1600 / 1600 2250 / 2250 281 / 281 Laboratory Tests Past 24 Hrs 06/20/18 05:20 Sodium 139 Potassium 5.0 Chloride 109 H Carbon Dioxide 19.0 L Anion Gap 11 BUN 70 H Creatinine 2.67 H Estim Creat Clear Calc 19.46 Est GFR (MDRD) Af Amer 24 L Est GFR (MDRD) Non-Af 20 L BUN/Creatinine Ratio 26.2 H Glucose 217 H Calcium 8.6 Phosphorus 4.0 Magnesium 2.0 POC Glucose 06/20/18 06/20/18 06/19/18 11:23 07:52 21:46 POC Glucose 309 H 163 H 301 H 06/19/18 15:36 POC Glucose 313 H Assessment/Plan All Active Problems Debility (Acute) 58-year-old female with acute chronic renal insufficiency stage IV. 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 Rheumatology consultation is pending. The patient is right arm dominant. She has evidence of bilateral forearm ulcerations from blunt trauma and her multiple falls. No superficial visible veins. Induration and some mild erythema left antecubital space suspicious for possible superficial thrombophlebitis. I am recommending for the patient a bilateral upper extremity vein mapping procedure for potential fistula creation. I have in detail discussed with her technique, benefits, risks, alternatives of a fistula creation. The patient is aware that there are no guarantees of success. I would look at potential creation on the left. She has had an opportunity to ask and have questions answered. We will obtain the vein mapping procedure but the procedure will need to be delayed until her steroid dosing can be diminished. I appreciate the opportunity of assisting with her surgical care CC: Dr. Jillian Payan M.D., F.A.C.S.
[2018-06-20] MEDS: 0.9% Normal Saline 1,000 ML 75 ML IV (12:31)
[2018-06-20 14:25] LABS: ANTINUCLEAR ANTIBODIES DIRECT Negative (Negative)
--- NOTE | 2018-06-20 14:34 | CASEMGMT ---
Social Work Note SW spoke with Roshni in [place] who states Matt asked for clinicals on pt. 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
--- NOTE | 2018-06-20 15:13 | PCM.CONS.R ---
Consultation - Renal 06/20/18 PCP/ Referring MD: Requesting physician: [] Primary care physician: Param Razo MD Reason for Consultation:: CKD stage 4 - History of Present Illness History of Present Illness: The patient is a 58 year old F seen on initial consultation for CKD stage IV due to diabetic nephropathy with history of retinopathy, neuropathy back in October 2017 was lost to follow-up in November. She presents with inability to walk with frequent falls for the past 2 to 3 months that has been progressively worse since November with right foot drop. She has diabetes mellitus type 2 with poor compliance. Hemoglobin A1c has been 14 last year improved to 7.1 on June 16 after she has been working on her diet and started on Tresiba. Her creatinine has been in the mid 2 range last summer with nephrotic proteinuria at 4 g. Creatinine was 2.73 on admission improved to 2.67 today. She is currently being evaluated for vasculitis. Her C-reactive protein was elevated at 44 with sed rate of 93 on admission. Rheumatoid factor was less than 10. Serologies pending. She had an MRI of the lumbar spine that showed herniated disc. Neurology has been consulted. She was started on steroid therapy for presumptive inflammatory process possible vasculitis. Patient denied any skin rash, arthralgias with joint swelling, hemoptysis, epistaxis, fever or chills. She had no unexplained weight loss history. She recently had her flu shot. She has no nausea chest pain, shortness of breath or edema. - Allergies Allergies: Allergies codeine Allergy (Verified 06/14/18 17:11) Other CONFUSION latex Allergy (Verified 06/14/18 17:11) Hives Sulfa (Sulfonamide Antibiotics) Allergy (Verified 06/14/18 17:11) Rash - Current Medications Current Medications: Current Medications Acetaminophen (Tylenol) 650 mg PO Q6H PRN PRN PRN Reason: Fever, headache, pain Atenolol (Tenormin (Beta Shannon)) 100 mg PO DAILY [facility] Last Admin: 06/20/18 09:18 Dose: 100 mg Atorvastatin Calcium (Lipitor) 20 mg PO QHS [facility] Last Admin: 06/19/18 22:12 Dose: 20 mg Dextrose (D50w Syringe) 0 gm IV X1 PRN; Protocol PRN Reason: Hypoglycemia Gabapentin (Neurontin) 300 mg PO QHS [facility] Last Admin: 06/19/18 22:14 Dose: 300 mg Glucagon () 1 mg IM .X1 PRN PRN Reason: Hypoglycemia Heparin Sodium (Porcine) (Heparin Na) 5,000 unit SC Q12 [facility] Last Admin: 06/20/18 09:18 Dose: 5,000 unit Hydralazine HCl (Apresoline Iv) 10 mg IV Q6H PRN PRN PRN Reason: for SBP>160 Last Admin: 06/20/18 02:13 Dose: 10 mg Hydralazine HCl (Apresoline) 50 mg PO TID [facility] Last Admin: 06/20/18 14:16 Dose: 50 mg Sodium Chloride () 1,000 mls @ 75 mls/hr IV .[id number] [facility] Last Admin: 06/20/18 12:31 Dose: 75 mls/hr Insulin Glargine (Lantus (Bkc)) 30 units SC DINNER [facility] Last Admin: 06/19/18 17:23 Dose: 30 u Insulin Human Lispro (Humalog Kwikpen (Bkc)) 0 unit SC 1100 [facility]; Protocol Last Admin: 06/20/18 12:07 Dose: 9 units Insulin Human Lispro (Humalog Kwikpen (Bkc)) 12 unit SC 0700 SHAHANA Insulin Human Lispro (Humalog Kwikpen (Bkc)) 14 unit SC 1100 [facility] Last Admin: 06/20/18 12:07 Dose: 14 u Insulin Human Lispro (Humalog Kwikpen (Bkc)) 14 unit SC 1600 [facility] Magnesium Hydroxide (Milk Of Magnesia) 30 ml PO DAILY PRN PRN PRN Reason: Constipation Montelukast Sodium (Singulair) 10 mg PO QHS [facility] Last Admin: 06/19/18 22:14 Dose: 10 mg Mupirocin (Bactroban) 1 applic TOPICAL BID [facility]; Protocol Last Admin: 06/20/18 09:17 Dose: 1 applicatio Nutritional Formula (Lactose Free) (Glucerna Shake) 120 ml PO 4X/DAY [facility] Last Admin: 06/20/18 14:16 Dose: 120 ml Ondansetron HCl (Zofran) 4 mg IV Q6H PRN PRN PRN Reason: NAUSEA/VOMITING Oxycodone HCl (Oxyir) 5 mg PO Q6H PRN PRN PRN Reason: SEVERE PAIN (6-10/10) Last Admin: 06/19/18 22:12 Dose: 5 mg Prednisone () 60 mg PO DAILY@0800 [facility] Last Admin: 06/20/18 07:55 Dose: 60 mg Sertraline HCl (Zoloft) 100 mg PO DAILY [facility] Last Admin: 06/20/18 09:18 Dose: 100 mg Sodium Chloride () 5 - 15 ml IV UD PRN PRN Reason: SALINE FLUSH Last Admin: 06/18/18 04:48 Dose: 10 ml - Past Medical History Past Medical History (Chronic Problems): Chronic Problems Hyperlipidemia (Chronic) Chronic kidney disease (Chronic) HTN (hypertension) (Chronic) Obesity (Chronic) DM2 (diabetes mellitus, type 2) (Chronic) - Past Surgical History Surgical History: cholecystectomy, - - Tubal ligation - Social History Marital Status: Smoking Status: Never smoker Alcohol: None Drugs: None - Family History Maternal History Items: Cancer, Heart Disease Paternal History Items: Diabetes, Heart Disease, Hypertension Sibling History Items: Diabetes Review of Systems Constitutional: Reports: Weakness, Fatigue. Denies: Anorexia, Chills, Fever Eyes: Denies: Vision Change HEENT: Denies: Head Aches Cardiovascular: Denies: Chest Pain, Edema, Syncope Respiratory: Denies: Cough, Shortness of Breath, Shortness of breath at rest Gastrointestinal: Denies: Abdominal Pain, Diarrhea, Nausea, Vomiting Genitourinary: Denies: Dysuria, Frequency, Hematuria - No tea colored urine Musculoskeletal: Reports: - - DJD. Denies: Joint swelling Skin: Reports: Wounds - Abrasions from falls on left dorsal foot right forearm. Denies: Rash Neurological: Reports: - - Generalized weakness, inability to ambulate progressive since November 2017, right foot drop. Denies: Focal weakness, Tremor, Seizures Psychiatric: Denies: Anxiety, Depression Hematologic/ Lymphatic: Reports: Anemia. Denies: Hx of blood clot - Physical Exam General: Alert, Oriented x3, Cooperative, No apparent distress HEENT: Atraumatic, PERRLA, EOMI Oral: Moist Mucosa Neck: Supple, No JVD Lungs: Clear to auscultation Cardiovascular: Regular rate, No murmurs, No rub noted Abdomen: Bowel Sounds Present, Soft, Non Tender, Non-Distended, No Hepato-splenomegaly, Obese Extremities: No edema Skin: No rashes Musculoskeletal: No Muscle Wasting, - - Unable to dorsiflex right foot Neurological: - - Weakness bilateral lower extremities Psych/Mental Status: Normal Affect, Appropriate, Alert and oriented to time, place, person, mood and affect Vital Signs Temp Pulse Resp BP Pulse Ox 97.1 F L 65 18 189/80 H 98 06/20/18 14:14 06/20/18 14:16 06/20/18 14:14 06/20/18 14:16 06/20/18 14:14 Oxygen Delivery Method Room Air Weight: 103 kg Body Mass Index (BMI) 40.2 Intake and Output for Last 24 Hours 06/18/18 06/19/18 06/20/18 23:59 23:59 23:59 Intake Total 1600 / 1600 2250 / 2250 1481 / 1481 Balance 1600 / 1600 2250 / 2250 1481 / 1481 Laboratory Tests Past 24 Hrs 06/18/18 06/20/18 05:15 05:20 Sodium 139 Potassium 5.0 Chloride 109 H Carbon Dioxide 19.0 L Anion Gap 11 BUN 70 H Creatinine 2.67 H Estim Creat Clear Calc 19.46 Est GFR (MDRD) Af Amer 24 L Est GFR (MDRD) Non-Af 20 L BUN/Creatinine Ratio 26.2 H Glucose 217 H Calcium 8.6 Phosphorus 4.0 Magnesium 2.0 TIAGO Screen Negative POC Glucose 06/20/18 06/20/18 06/19/18 11:23 07:52 21:46 POC Glucose 309 H 163 H 301 H 06/19/18 15:36 POC Glucose 313 H Clinical Impression(s) from Imaging Studies Knee X-Ray 06/14/18 18:15 IMPRESSION: Tricompartmental degenerative arthrosis of the knee, with very small suprapatellar joint effusion. No acute fracture of the left knee. Electronically Signed: Blue Velasquez MD at 19:18 EST , Service support , Lumbar Spine MRI 06/15/18 10:09 IMPRESSION: Lumbar spondylosis with disc herniations and foraminal narrowing at L4-5 and L5-S1. Electronically Signed: Valentín Vázquez MD at 13:29 EST , Service support , Renal Ultrasound 06/18/18 13:44 IMPRESSION: Echogenic cortex of the kidneys suggesting medical renal disease. Bilateral renal cysts. Possible cortical calcifications of the left kidney. Mild wall thickening of the urinary bladder. Electronically Signed: Vinicius DO Mickey at 22:51 EST Tel [phone], Service support , Assessment/Plan All Active Problems Debility (Acute) 1. CKD stage IV with baseline creatinine in the mid 2's eGFR 20 cc/min. Creatinine 2.7 on admission improved to 2.67 with gentle hydration. She has underlying diabetic nephropathy with nephrotic proteinuria 4g back in October 2017. We will check 24 urine total protein creatinine clearance. Urinalysis without RBCs with minimal blood which goes against nephritic pattern. Discussed with patient that she will need to prepare for dialysis with dialysis access placement will consult vascular surgeon Dr. Chavez for AV fistula placement, vein mapping of her upper extremities. Currently no indication for urgent dialysis. However did recommend dialysis access placement when medically stable. 2. Diabetic nephropathy, retinopathy, neuropathy. History of noncompliance with A1c of 14 in October 2017 improved to 7.1 on June 16, 2018. 3. Hypertension with stable blood pressure 4. Right foot drop with weakness bilateral lower extremities. Elevated ESR and CRP. Serologies pending. RF negative. Rehab placement. Neurology consulted. Currently prednisone therapy. 5. Hyperlipidemia on statin therapy managed by PCP 6. Morbid obesity
--- NOTE | 2018-06-20 15:20 | CON.PCM_ITS ---
Consultation - Renal 06/20/18 PCP/ Referring MD: Requesting physician: [] Primary care physician: Param Razo MD Reason for Consultation:: CKD stage 4 - History of Present Illness History of Present Illness: The patient is a 58 year old F seen on initial consultation for CKD stage IV due to diabetic nephropathy with history of retinopathy, neuropathy back in October 2017 was lost to follow-up in November. She presents with inability to walk with frequent falls for the past 2 to 3 months that has been progressively worse since November with right foot drop. She has diabetes mellitus type 2 with poor c ompliance. Hemoglobin A1c has been 14 last year improved to 7.1 on June 16 after she has been working on her diet and started on Tresiba. Her creatinine has been in the mid 2 range last summer with nephrotic proteinuria at 4 g. Creatinine was 2.73 on admission improved to 2.67 today. She is currently being evaluated for vasculitis. Her C-reactive protein was elevated at 44 with sed rate of 93 on admission. Rheumatoid factor was less than 10. Serologies pending. She had an MRI of the lumbar spine that showed herniated disc. Neurology has been consulted. She was started on steroid therapy for presumptive inflammatory process possible vasculitis. Patient denied any skin rash, arthralgias with joint swelling, hemoptysis, epistaxis, fever or chills. She had no unexplained weight loss history. She recently had her flu shot. She has no nausea chest pain, shortness of breath or edema. - Allergies Allergies: Allergies codeine Allergy (Verified 06/14/18 17:11) Other CONFUSION latex Allergy (Verified 06/14/18 17:11) Hives Sulfa (Sulfonamide Antibiotics) Allergy (Verified 06/14/18 17:11) Rash - Current Medications Current Medications: Current Medications Acetaminophen (Tylenol) 650 mg PO Q6H PRN PRN PRN Reason: Fever, headache, pain Atenolol (Tenormin (Beta Shannon)) 100 mg PO DAILY [facility] Last Admin: 06/20/18 09:18 Dose: 100 mg Atorvastatin Calcium (Lipitor) 20 mg PO QHS [facility] Last Admin: 06/19/18 22:12 Dose: 20 mg Dextrose (D50w Syringe) 0 gm IV X1 PRN; Protocol PRN Reason: Hypoglycemia Gabapentin (Neurontin) 300 mg PO QHS [facility] Last Admin: 06/19/18 22:14 Dose: 300 mg Glucagon () 1 mg IM .X1 PRN PRN Reason: Hypoglycemia Heparin Sodium (Porcine) (Heparin Na) 5,000 unit SC Q12 [facility] Last Admin: 06/20/18 09:18 Dose: 5,000 unit Hydralazine HCl (Apresoline Iv) 10 mg IV Q6H PRN PRN PRN Reason: for SBP>160 Last Admin: 06/20/18 02:13 Dose: 10 mg Hydralazine HCl (Apresoline) 50 mg PO TID [facility] Last Admin: 06/20/18 14:16 Dose: 50 mg Sodium Chloride () 1,000 mls @ 75 mls/hr IV .[id number] [facility] Last Admin: 06/20/18 12:31 Dose: 75 mls/hr Insulin Glargine (Lantus (Bkc)) 30 units SC DINNER [facility] Last Admin: 06/19/18 17:23 Dose: 30 u Insulin Human Lispro (Humalog Kwikpen (Bkc)) 0 unit SC 1100 [facility]; Protocol Last Admin: 06/20/18 12:07 Dose: 9 units Insulin Human Lispro (Humalog Kwikpen (Bkc)) 12 unit SC 0700 SHAHANA Insulin Human Lispro (Humalog Kwikpen (Bkc)) 14 unit SC 1100 [facility] Last Admin: 06/20/18 12:07 Dose: 14 u Insulin Human Lispro (Humalog Kwikpen (Bkc)) 14 unit SC 1600 [facility] Magnesium Hydroxide (Milk Of Magnesia) 30 ml PO DAILY PRN PRN PRN Reason: Constipation Montelukast Sodium (Singulair) 10 mg PO QHS [facility] Last Admin: 06/19/18 22:14 Dose: 10 mg Mupirocin (Bactroban) 1 applic TOPICAL BID [facility]; Protocol Last Admin: 06/20/18 09:17 Dose: 1 applicatio Nutritional Formula (Lactose Free) (Glucerna Shake) 120 ml PO 4X/DAY [facility] Last Admin: 06/20/18 14:16 Dose: 120 ml Ondansetron HCl (Zofran) 4 mg IV Q6H PRN PRN PRN Reason: NAUSEA/VOMITING Oxycodone HCl (Oxyir) 5 mg PO Q6H PRN PRN PRN Reason: SEVERE PAIN (6-10/10) Last Admin: 06/19/18 22:12 Dose: 5 mg Prednisone () 60 mg PO DAILY@0800 [facility] Last Admin: 06/20/18 07:55 Dose: 60 mg Sertraline HCl (Zoloft) 100 mg PO DAILY [facility] Last Admin: 06/20/18 09:18 Dose: 100 mg Sodium Chloride () 5 - 15 ml IV UD PRN PRN Reason: SALINE FLUSH Last Admin: 06/18/18 04:48 Dose: 10 ml - Past Medical History Past Medical History (Chronic Problems): Chronic Problems Hyperlipidemia (Chronic) Chronic kidney disease (Chronic) HTN (hypertension) (Chronic) Obesity (Chronic) DM2 (diabetes mellitus, type 2) (Chronic) - Past Surgical History Surgical History: cholecystectomy, - - Tubal ligation - Social History Marital Status: Smoking Status: Never smoker Alcohol: None Drugs: None - Family History Maternal History Items: Cancer, Heart Disease Paternal History Items: Diabetes, Heart Disease, Hypertension Sibling History Items: Diabetes Review of Systems Constitutional: Reports: Weakness, Fatigue. Denies: Anorexia, Chills, Fever Eyes: Denies: Vision Change HEENT: Denies: Head Aches Cardiovascular: Denies: Chest Pain, Edema, Syncope Respiratory: Denies: Cough, Shortness of Breath, Shortness of breath at rest Gastrointestinal: Denies: Abdominal Pain, Diarrhea, Nausea, Vomiting Genitourinary: Denies: Dysuria, Frequency, Hematuria - No tea colored urine Musculoskeletal: Reports: - - DJD. Denies: Joint swelling Skin: Reports: Wounds - Abrasions from falls on left dorsal foot right forearm. Denies: Rash Neurological: Reports: - - Generalized weakness, inability to ambulate progressive since November 2017, right foot drop. Denies: Focal weakness, Tremor, Seizures Psychiatric: Denies: Anxiety, Depression Hematologic/ Lymphatic: Reports: Anemia. Denies: Hx of blood clot - Physical Exam General: Alert, Oriented x3, Cooperative, No apparent distress HEENT: Atraumatic, PERRLA, EOMI Oral: Moist Mucosa Neck: Supple, No JVD Lungs: Clear to auscultation Cardiovascular: Regular rate, No murmurs, No rub noted Abdomen: Bowel Sounds Present, Soft, Non Tender, Non-Distended, No Hepato- splenomegaly, Obese Extremities: No edema Skin: No rashes Musculoskeletal: No Muscle Wasting, - - Unable to dorsiflex right foot Neurological: - - Weakness bilateral lower extremities Psych/Mental Status: Normal Affect, Appropriate, Alert and oriented to time, place, person, mood and affect Vital Signs Temp Pulse Resp BP Pulse Ox 97.1 F L 65 18 189/80 H 98 06/20/18 14:14 06/20/18 14:16 06/20/18 14:14 06/20/18 14:16 06/20/18 14:14 Oxygen Delivery Method Room Air Weight: 103 kg Body Mass Index (BMI) 40.2 Intake and Output for Last 24 Hours 06/18/18 06/19/18 06/20/18 23:59 23:59 23:59 Intake Total 1600 / 1600 2250 / 2250 1481 / 1481 Balance 1600 / 1600 2250 / 2250 1481 / 1481 Laboratory Tests Past 24 Hrs 06/18/18 06/20/18 05:15 05:20 Sodium 139 Potassium 5.0 Chloride 109 H Carbon Dioxide 19.0 L Anion Gap 11 BUN 70 H Creatinine 2.67 H Estim Creat Clear Calc 19.46 Est GFR (MDRD) Af Amer 24 L Est GFR (MDRD) Non-Af 20 L BUN/Creatinine Ratio 26.2 H Glucose 217 H Calcium 8.6 Phosphorus 4.0 Magnesium 2.0 TIAGO Screen Negative POC Glucose 06/20/18 06/20/18 06/19/18 11:23 07:52 21:46 POC Glucose 309 H 163 H 301 H 06/19/18 15:36 POC Glucose 313 H Clinical Impression(s) from Imaging Studies Knee X-Ray 06/14/18 18:15 IMPRESSION: Tricompartmental degenerative arthrosis of the knee, with very small suprapatellar joint effusion. No acute fracture of the left knee. Electronically Signed: Blue Velasquez MD at 19:18 EST , Service support , Lumbar Spine MRI 06/15/18 10:09 IMPRESSION: Lumbar spondylosis with disc herniations and foraminal narrowing at L4-5 and L5-S1. Electronically Signed: Valentín Vázquez MD at 13:29 EST , Service support , Renal Ultrasound 06/18/18 13:44 IMPRESSION: Echogenic cortex of the kidneys suggesting medical renal disease. Bilateral renal cysts. Possible cortical calcifications of the left kidney. Mild wall thickening of the urinary bladder. Electronically Signed: Vinicius ArevaloDO at 22:51 EST Tel [phone], Service support , Assessment/Plan All Active Problems Debility (Acute) 1. CKD stage IV with baseline creatinine in the mid 2's eGFR 20 cc/min. Creatinine 2.7 on admission improved to 2.67 with gentle hydration. She has underlying diabetic nephropathy with nephrotic proteinuria 4g back in October 2017. We will check 24 urine total protein creatinine clearance. Urinalysis without RBCs with minimal blood which goes against nephritic pattern. Discussed with patient that she will need to prepare for dialysis with dialysis access placement will consult vascular surgeon Dr. Chavez for AV fistula placement, vein mapping of her upper extremities. Currently no indication for urgent dialysis. However did recommend dialysis access placement when medically stable. 2. Diabetic nephropathy, retinopathy, neuropathy. History of noncompliance with A1c of 14 in October 2017 improved to 7.1 on June 16, 2018. 3. Hypertension with stable blood pressure 4. Right foot drop with weakness bilateral lower extremities. Elevated ESR and CRP. Serologies pending. RF negative. Rehab placement. Neurology consulted. Currently prednisone therapy. 5. Hyperlipidemia on statin therapy managed by PCP 6. Morbid obesity
--- NOTE | 2018-06-20 15:45 | CASEMGMT ---
Social Work Note SW received call from Roshni who states pre-cert has been obtained and pt is able to discharge to [facility] today. JOLIE updated physician. 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
[2018-06-20] MEDS: oxyCODONE 5 MG Tablet PO (16:59)
[2018-06-20] MEDS: Lisinopril 40 MG Tablet PO (17:04)
[2018-06-20 17:05] LABS: Bedside Glucose 279 mg/dL (70-110)
--- NOTE | 2018-06-20 18:37 | PCM.DC ---
- Discharge Diagnoses Current Active Problems: Current Active and Chronic Problems Hyperlipidemia (Chronic) Chronic kidney disease (Chronic) You will use the following diet at home:: Calorie/Carbohydrate Controlled (specify 1200, 1400, etc) - 1600 calorie, Cardiac, High fiber Your food should be the consistency of: Regular Your liquids should be the consistency of: Regular/Thin Discharge Activity: - - activity per PT/OT Additional Instructions: accucheck BS's AC and HS. Cover with a high dose scale. BMP, ESR, CRP in the AM. She needs to see a historical site guide MICHAEL....hopefully within the next 2 weeks. I prefer she be seen at the [facility] in [place] on [address]?[facility]. The number is [phone]. Do not have her see Dr. Corona Pending Tests on Discharge: rheumatologic testing - multiple Allergies/Adverse Reactions: Allergies codeine Allergy (Verified 06/14/18 17:11) Other CONFUSION latex Allergy (Verified 06/14/18 17:11) Hives Sulfa (Sulfonamide Antibiotics) Allergy (Verified 06/14/18 17:11) Rash Medications to take at Discharge Montelukast [Singulair] 10 mg PO QHS 10/29/13 Simvastatin [Zocor] 40 mg PO QHS 10/29/13 Fenofibrate [Tricor] 145 mg PO DAILY #30 tablet 11/01/13 Atenolol [Tenormin (beta airam)] 100 mg PO DAILY 06/14/18 Gabapentin [Neurontin] 300 mg PO QHS 06/14/18 Multivit-Min/Iron/Folic/Lutein [Centrum Silver Women Tablet] 1 tab PO DAILY 06/14/18 Sertraline HCl 100 mg PO DAILY 06/14/18 Acetaminophen [Tylenol Tablet] 650 mg PO Q6H PRN PRN tablet 06/20/18 Amlodipine [Norvasc] 10 mg PO DAILY #1 tablet 06/20/18 Insulin Glargine [Lantus SoloStar Pen] 30 units SC BID #1 pen 06/20/18 Mupirocin [Bactroban] 1 applic TOPICAL BID tube 06/20/18 Oxycodone [Oxyir] 5 mg PO Q6H PRN PRN #1 tablet 06/20/18 hydrALAZINE [Apresoline] 50 mg PO TID tablet 06/20/18 predniSONE tablet 60 mg PO DAILY@0800 tablet 06/20/18 The following prescriptions were given: Amlodipine [Norvasc] 10 mg PO DAILY #1 tablet Primary Care Physician: Param Razo MD [Primary Care Provider] - Please follow up with your Primary Care Physician in: following DC from rehab Test Results: Test results from this visit will be discussed in further detail at your follow-up appointment, if applicable. Please Follow Up With: Jillian Lew DO Please Follow Up With: Bairon Payan MD Proposed Discharge Date: 06/20/18
--- NOTE | 2018-06-20 18:43 | DCINST_ITS ---
- Discharge Diagnoses Current Active Problems: Current Active and Chronic Problems Hyperlipidemia (Chronic) Chronic kidney disease (Chronic) You will use the following diet at home:: Calorie/Carbohydrate Controlled (specify 1200, 1400, etc) - 1600 calorie, Cardiac, High fiber Your food should be the consistency of: Regular Your liquids should be the consistency of: Regular/Thin Discharge Activity: - - activity per PT/OT Additional Instructions: accucheck BS's AC and HS. Cover with a high dose scale. BMP, ESR, CRP in the AM. 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 I prefer she be seen at the [facility] in [place] on [address]?[facility]. The number is [phone]. Do not have her see Dr. Corona Pending Tests on Discharge: rheumatologic testing - multiple Allergies/Adverse Reactions: Allergies codeine Allergy (Verified 06/14/18 17:11) Other CONFUSION latex Allergy (Verified 06/14/18 17:11) Hives Sulfa (Sulfonamide Antibiotics) Allergy (Verified 06/14/18 17:11) Rash Medications to take at Discharge Montelukast [Singulair] 10 mg PO QHS 10/29/13 Simvastatin [Zocor] 40 mg PO QHS 10/29/13 Fenofibrate [Tricor] 145 mg PO DAILY #30 tablet 11/01/13 Atenolol [Tenormin (beta airam)] 100 mg PO DAILY 06/14/18 Gabapentin [Neurontin] 300 mg PO QHS 06/14/18 Multivit-Min/Iron/Folic/Lutein [Centrum Silver Women Tablet] 1 tab PO DAILY 06/14/18 Sertraline HCl 100 mg PO DAILY 06/14/18 Acetaminophen [Tylenol Tablet] 650 mg PO Q6H PRN PRN tablet 06/20/18 Amlodipine [Norvasc] 10 mg PO DAILY #1 tablet 06/20/18 Insulin Glargine [Lantus SoloStar Pen] 30 units SC BID #1 pen 06/20/18 Mupirocin [Bactroban] 1 applic TOPICAL BID tube 06/20/18 Oxycodone [Oxyir] 5 mg PO Q6H PRN PRN #1 tablet 06/20/18 hydrALAZINE [Apresoline] 50 mg PO TID tablet 06/20/18 predniSONE tablet 60 mg PO DAILY@0800 tablet 06/20/18 The following prescriptions were given: Amlodipine [Norvasc] 10 mg PO DAILY #1 tablet Primary Care Physician: Param Razo MD [Primary Care Provider] - Please follow up with your Primary Care Physician in: following DC from rehab Test Results: Test results from this visit will be discussed in further detail at your follow- up appointment, if applicable. Please Follow Up With: Jillian Lew DO Please Follow Up With: Bairon Payan MD Proposed Discharge Date: 06/20/18
--- NOTE | 2018-06-20 18:45 | PCM.DC.SUM ---
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 No acute fracture of the left knee. Electronically Signed: Blue Velasquez MD at 19:18 EST , Service support , Lumbar Spine MRI 06/15/18 10:09 IMPRESSION: Lumbar spondylosis with disc herniations and foraminal narrowing at L4-5 and L5-S1. Electronically Signed: Valentín Vázquez MD at 13:29 EST , Service support , Renal Ultrasound 06/18/18 13:44 IMPRESSION: Echogenic cortex of the kidneys suggesting medical renal disease. Bilateral renal cysts. Possible cortical calcifications of the left kidney. Mild wall thickening of the urinary bladder. Electronically Signed: Vinicius Arevalo DO at 22:51 EST Tel [phone], Service support , Laboratory Results - last 24 hr 06/18/18 06/19/18 06/20/18 05:15 21:46 05:20 Sodium 139 Potassium 5.0 Chloride 109 H Carbon Dioxide 19.0 L Anion Gap 11 BUN 70 H Creatinine 2.67 H Estim Creat Clear Calc 19.46 Est GFR (MDRD) Af Amer 24 L Est GFR (MDRD) Non-Af 20 L BUN/Creatinine Ratio 26.2 H Glucose 217 H Calcium 8.6 Phosphorus 4.0 Magnesium 2.0 TIAGO Screen Negative POC Glucose 301 H 06/20/18 06/20/18 06/20/18 07:52 11:23 16:56 Sodium Potassium Chloride Carbon Dioxide Anion Gap BUN Creatinine Estim Creat Clear Calc Est GFR (MDRD) Af Amer Est GFR (MDRD) Non-Af BUN/Creatinine Ratio Glucose Calcium Phosphorus Magnesium TIAGO Screen POC Glucose [address] H [address] Caden Shaw-neurology Dr. Jillian Lew-[place] nephrology Operations: None Procedures: None Summary of Care Provided: The patient is a 58-year-old female with a PMH of hyperlipidemia, chronic renal failure stage IV, hypertension, obesity, osteoarthritis and type 2 diabetes mellitus who presented to the emergency department at [facility] on 06/14/2018 after a fall complaining of left knee pain. She also complained of progressive weakness in both legs that began in November of 2017. Sx began with R foot drop. She had to start using a cane in November and then progressed to a WW and now is unable to ambulate. No weakness in the UE's. No red swollen joints. She has been told by orthopedics that she needs knee replacements. Lab in the emergency room revealed hypoglycemia and she was given D50 W. an x-ray of the left knee showed tricompartmental degenerative arthrosis with very small suprapatellar joint effusion. There was no fracture and no dislocation. Initial lab showed a normal white blood cell count at 9.3 with an unremarkable differential. Hemoglobin was 10.3 and the MCV was decreased at 81.8. The RDW was 15 and the platelets were within normal limits. Potassium was low at 3.3 and the BUN was 45 with a creatinine of 2.84. Hemoglobin A1c was 7.1. She was admitted to the hospital with a diagnosis of frequent falls, intractable left knee pain, physical debility and hypoglycemia. Significant lab following admission included an ESR of 93 and a CRP of 43.9. Rheumatoid factor was less than 10. CCP, TIAGO panel, SSA and SSB antibodies, HLAB27, C3 and C4 are pending. On PE she had a suprapatellar effusion on the left. The strength in the LLE was 1/5 and the RLE was 2/5. She is unable to dorsiflex or plantar flex the R foot. She has good strength in the UE's and CN's II - XII are grossly intact. She was seen in consultation by Dr. Shaw and his impression is that she has a neurovascular vasculitis. She was started on Prednisone 60 mg daily and he also recommended consultation with rheumatology. Dr. Lew was consulted for stage 4 CRF with increasing potassium and decreasing serum bicarb. ARISTIDES was discontinued and a potassium restriction was added to her diet. Dr. 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 She has had improvement in the Left lateral leg pain since the steroids were started and she is now able to go from sitting to standing using a FWW. She was transferred to the rehab unit at [facility] on 06/20/18. She will need to follow up with a tool shaper set up operator as soon as possible. She will also follow up with Dr. Lew and with Dr. Payan. She will need further fine tuning of the insulin regimen since the blood sugars have increased significantly with the Prednisone. PHYSICAL EXAM: GENERAL: alert, oriented X 3, Cooperative, NAD, not tearful today ORAL: Dry mucosa, no mucosal lesions NECK: No JVD, supple, trachea midline LUNGS: CTA, symmetric chest expansion HEART: RRR, Normal S1 and S2, no rub, no gallop ABDOMEN: soft, NT, ND, BS present, no guarding with palpation EXTREMITIES: non pitting edema, no cyanosis, no calf tenderness SKIN: No rashes, no breakdown NEUROLOGIC: Still with 1/5 strength in the LLE and 2-3/5 in the RLE. Foot droop on the R PSYCH: appropriate, normal affect, pleasant This note was generated with [employer] dictation software. It may contain incorrect words, spelling, and punctuation that were not noted in checking the note before signing. - Physical Exam Vital Signs Temp Pulse Resp BP Pulse Ox 98.5 F 63 18 162/66 H 98 06/20/18 16:58 06/20/18 16:58 06/20/18 16:58 06/20/18 16:58 06/20/18 16:58 Oxygen Delivery Method Room Air Weight: 227 lb 1.218 oz Body Mass Index (BMI) 40.2 Intake and Output for Last 24 Hours 06/18/18 06/19/18 06/20/18 23:59 23:59 23:59 Intake Total 1600 / 1600 2250 / 2250 2631 / 2631 Balance 1600 / 1600 2250 / 2250 2631 / 2631 Laboratory Tests Past 24 Hrs 06/18/18 06/20/18 05:15 05:20 Sodium 139 Potassium 5.0 Chloride 109 H Carbon Dioxide 19.0 L Anion Gap 11 BUN 70 H Creatinine 2.67 H Estim Creat Clear Calc 19.46 Est GFR (MDRD) Af Amer 24 L Est GFR (MDRD) Non-Af 20 L BUN/Creatinine Ratio 26.2 H Glucose 217 H Calcium 8.6 Phosphorus 4.0 Magnesium 2.0 TIAGO Screen Negative POC Glucose 06/20/18 06/20/18 06/20/18 16:56 11:23 07:52 POC Glucose 279 H 309 H 163 H 06/19/18 21:46 POC Glucose 301 H Discharge Activity: - - activity per PT/OT Home Medications: Medications to take at Discharge Montelukast [Singulair] 10 mg PO QHS 10/29/13 Simvastatin [Zocor] 40 mg PO QHS 10/29/13 Fenofibrate [Tricor] 145 mg PO DAILY #30 tablet 11/01/13 Atenolol [Tenormin (beta airam)] 100 mg PO DAILY 06/14/18 Gabapentin [Neurontin] 300 mg PO QHS 06/14/18 Multivit-Min/Iron/Folic/Lutein [Centrum Silver Women Tablet] 1 tab PO DAILY 06/14/18 Sertraline HCl 100 mg PO DAILY 06/14/18 Acetaminophen [Tylenol Tablet] 650 mg PO Q6H PRN PRN tablet 06/20/18 Amlodipine [Norvasc] 10 mg PO DAILY #1 tablet 06/20/18 Insulin Glargine [Lantus SoloStar Pen] 30 units SC BID #1 pen 06/20/18 Mupirocin [Bactroban] 1 applic TOPICAL BID tube 06/20/18 Oxycodone [Oxyir] 5 mg PO Q6H PRN PRN #1 tablet 06/20/18 hydrALAZINE [Apresoline] 50 mg PO TID tablet 06/20/18 predniSONE tablet 60 mg PO DAILY@0800 tablet 06/20/18 Following Prescrptions Were Given to Patient: Amlodipine [Norvasc] 10 mg PO DAILY #1 tablet Primary Care Physician: Param Razo MD [Primary Care Provider] - Please follow up with your Primary Care Physician in: following DC from rehab Please Follow Up With: Jillian Lew DO Please Follow Up With: Bairon Payan MD Disposition: Inpt Rehab Unit/Facility Minutes spent on discharge:: 40 Patient Condition:: Stable Medical Necessity - Tobacco Use Smoking Status: Never smoker Tobacco Use: Non-smoker Meaningful Use Info Meaningful Use Diagnoses (Choose all that apply): None applicable Code Visit Inpatient E&M: 33354 Disch Hosp
--- NOTE | 2018-06-20 18:49 | DS.PCM_ITS ---
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 No acute fracture of the left knee. Electronically Signed: Blue Velasquez MD at 19:18 EST , Service support , Lumbar Spine MRI 06/15/18 10:09 IMPRESSION: Lumbar spondylosis with disc herniations and foraminal narrowing at L4-5 and L5-S1. Electronically Signed: Valentín Vázquez MD at 13:29 EST , Service support , Renal Ultrasound 06/18/18 13:44 IMPRESSION: Echogenic cortex of the kidneys suggesting medical renal disease. Bilateral renal cysts. Possible cortical calcifications of the left kidney. Mild wall thickening of the urinary bladder. Electronically Signed: Vinicius Arevalo DO at 22:51 EST Tel [phone], Service support , Laboratory Results - last 24 hr 06/18/18 06/19/18 06/20/18 05:15 21:46 05:20 Sodium 139 Potassium 5.0 Chloride 109 H Carbon Dioxide 19.0 L Anion Gap 11 BUN 70 H Creatinine 2.67 H Estim Creat Clear Calc 19.46 Est GFR (MDRD) Af Amer 24 L Est GFR (MDRD) Non-Af 20 L BUN/Creatinine Ratio 26.2 H Glucose 217 H Calcium 8.6 Phosphorus 4.0 Magnesium 2.0 TIAGO Screen Negative POC Glucose 301 H 06/20/18 06/20/18 06/20/18 07:52 11:23 16:56 Sodium Potassium Chloride Carbon Dioxide Anion Gap BUN Creatinine Estim Creat Clear Calc Est GFR (MDRD) Af Amer Est GFR (MDRD) Non-Af BUN/Creatinine Ratio Glucose Calcium Phosphorus Magnesium TIAGO Screen POC Glucose 163 H [address] Caden Shaw-neurology Dr. Jillian Lew-[place] nephrology Operations: None Procedures: None Summary of Care Provided: The patient is a 58-year-old female with a PMH of hyperlipidemia, chronic renal failure stage IV, hypertension, obesity, osteoarthritis and type 2 diabetes mellitus who presented to the emergency department at [facility] on 06/14/2018 after a fall complaining of left knee pain. She also complained of progressive weakness in both legs that began in November of 2017. Sx began with R foot drop. She had to start using a cane in November and then progressed to a WW and now is unable to ambulate. No weakness in the UE's. No red swollen joints. She has been told by orthopedics that she needs knee replacements. Lab in the emergency room revealed hypoglycemia and she was given D50 W. an x-ray of the left knee showed tricompartmental degenerative arthrosis with very small suprapatellar joint effusion. There was no fracture and no dislocation. Initial lab showed a normal white blood cell count at 9.3 with an unremarkable differential. Hemoglobin was 10.3 and the MCV was decreased at 81.8. The RDW was 15 and the platelets were within normal limits. Potassium was low at 3.3 and the BUN was 45 with a creatinine of 2.84. Hemoglobin A1c was 7.1. She was admitted to the hospital with a diagnosis of frequent falls, intractable left knee pain, physical debility and hypoglycemia. Significant lab following admission included an ESR of 93 and a CRP of 43.9. Rheumatoid factor was less than 10. CCP, TIAGO panel, SSA and SSB antibodies, HLAB27, C3 and C4 are pending. On PE she had a suprapatellar effusion on the left. The strength in the LLE was 1/5 and the RLE was 2/5. She is unable to dorsiflex or plantar flex the R foot. She has good strength in the UE's and CN's II - XII are grossly intact. She was seen in consultation by Dr. Shaw and his impression is that she has a neurovascular vasculitis. She was started on Prednisone 60 mg daily and he also recommended consultation with rheumatology. Dr. Lew was consulted for stage 4 CRF with increasing potassium and decreasing serum bicarb. ARISTIDES was discontinued and a potassium restriction was added to her diet. Dr. 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 She has had improvement in the Left lateral leg pain since the steroids were started and she is now able to go from sitting to standing using a FWW. She was transferred to the rehab unit at [facility] on 06/20/18. She will need to follow up with a body and fender worker as soon as possible. She will also follow up with Dr. Lew and with Dr. Payan. She will need further fine tuning of the insulin regimen since the blood sugars have increased significantly with the Prednisone. PHYSICAL EXAM: GENERAL: alert, oriented X 3, Cooperative, NAD, not tearful today ORAL: Dry mucosa, no mucosal lesions NECK: No JVD, supple, trachea midline LUNGS: CTA, symmetric chest expansion HEART: RRR, Normal S1 and S2, no rub, no gallop ABDOMEN: soft, NT, ND, BS present, no guarding with palpation EXTREMITIES: non pitting edema, no cyanosis, no calf tenderness SKIN: No rashes, no breakdown NEUROLOGIC: Still with 1/5 strength in the LLE and 2-3/5 in the RLE. Foot droop on the R PSYCH: appropriate, normal affect, pleasant This note was generated with [employer] dictation software. It may contain incorrect words, spelling, and punctuation that were not noted in checking the note before signing. - Physical Exam Vital Signs Temp Pulse Resp BP Pulse Ox 98.5 F 63 18 162/66 H 98 06/20/18 16:58 06/20/18 16:58 06/20/18 16:58 06/20/18 16:58 06/20/18 16:58 Oxygen Delivery Method Room Air Weight: 227 lb 1.218 oz Body Mass Index (BMI) 40.2 Intake and Output for Last 24 Hours 06/18/18 06/19/18 06/20/18 23:59 23:59 23:59 Intake Total 1600 / 1600 2250 / 2250 2631 / 2631 Balance 1600 / 1600 2250 / 2250 2631 / 2631 Laboratory Tests Past 24 Hrs 06/18/18 06/20/18 05:15 05:20 Sodium 139 Potassium 5.0 Chloride 109 H Carbon Dioxide 19.0 L Anion Gap 11 BUN 70 H Creatinine 2.67 H Estim Creat Clear Calc 19.46 Est GFR (MDRD) Af Amer 24 L Est GFR (MDRD) Non-Af 20 L BUN/Creatinine Ratio 26.2 H Glucose 217 H Calcium 8.6 Phosphorus 4.0 Magnesium 2.0 TIAGO Screen Negative POC Glucose 06/20/18 06/20/18 06/20/18 16:56 11:23 07:52 POC Glucose 279 H 309 H 163 H 06/19/18 21:46 POC Glucose 301 H Discharge Activity: - - activity per PT/OT Home Medications: Medications to take at Discharge Montelukast [Singulair] 10 mg PO QHS 10/29/13 Simvastatin [Zocor] 40 mg PO QHS 10/29/13 Fenofibrate [Tricor] 145 mg PO DAILY #30 tablet 11/01/13 Atenolol [Tenormin (beta airam)] 100 mg PO DAILY 06/14/18 Gabapentin [Neurontin] 300 mg PO QHS 06/14/18 Multivit-Min/Iron/Folic/Lutein [Centrum Silver Women Tablet] 1 tab PO DAILY 06/14/18 Sertraline HCl 100 mg PO DAILY 06/14/18 Acetaminophen [Tylenol Tablet] 650 mg PO Q6H PRN PRN tablet 06/20/18 Amlodipine [Norvasc] 10 mg PO DAILY #1 tablet 06/20/18 Insulin Glargine [Lantus SoloStar Pen] 30 units SC BID #1 pen 06/20/18 Mupirocin [Bactroban] 1 applic TOPICAL BID tube 06/20/18 Oxycodone [Oxyir] 5 mg PO Q6H PRN PRN #1 tablet 06/20/18 hydrALAZINE [Apresoline] 50 mg PO TID tablet 06/20/18 predniSONE tablet 60 mg PO DAILY@0800 tablet 06/20/18 Following Prescrptions Were Given to Patient: Amlodipine [Norvasc] 10 mg PO DAILY #1 tablet Primary Care Physician: Param Razo MD [Primary Care Provider] - Please follow up with your Primary Care Physician in: following DC from rehab Please Follow Up With: Jillian Lew DO Please Follow Up With: Bairon Payan MD Disposition: Inpt Rehab Unit/Facility Minutes spent on discharge:: 40 Patient Condition:: Stable Medical Necessity - Tobacco Use Smoking Status: Never smoker Tobacco Use: Non-smoker Meaningful Use Info Meaningful Use Diagnoses (Choose all that apply): None applicable Code Visit Inpatient E&M: 36763 Disch Hosp
[2018-06-20] MEDS: amLODIPine 5 MG Tablet PO (19:05)
[2018-06-21 03:05] LABS: Dilute Prothrombin Time (dPT) 43.7 sec (0.0-55.0); PTT-LA 34.7 sec (0.0-51.9); Thrombin Time 17.2 sec (0.0-23.0); dPT Confirm Ratio 0.94 Ratio (0.00-1.40)
[2018-06-21 08:51] LABS: Anti-Smooth Muscle ABS 2 Units (0-19); CCP IgG Antibodies 7 units (0-19); Interpretation Comment: (.)
[2018-06-25 14:06] LABS: Complement C3 194 mg/dL (82-167)
[2018-06-25 16:26] LABS: HLA B27 Negative (.)
== END 2018-06-20 19:40 | DRG 546 ==
LOC: ED 18:34 → MS2 20:04
PROVIDERS: Psychiatry & Neurology Neurology; Admitting Provider Hospitalist; Emergency Provider Emergency Medicine; Family Provider Family Medicine; PCP Family Medicine; Visit Provider Internal Medicine
DX: I77.6 Arteritis, unspecified (principal); Z68.41 Body mass index [BMI] 40.0-44.9, adult; E87.2 Acidosis; N18.4 Chronic kidney disease, stage 4 (severe); R29.6 Repeated falls; R53.1 Weakness; E78.5 Hyperlipidemia, unspecified; E87.6 Hypokalemia; E11.649 Type 2 diabetes mellitus with hypoglycemia without coma; R53.81 Other malaise; Z23 Encounter for immunization; E66.01 Morbid (severe) obesity due to excess calories; M21.371 Foot drop, right foot; E11.22 Type 2 diabetes mellitus with diabetic chronic kidney disease; M25.462 Effusion, left knee; M25.562 Pain in left knee; I12.9 Hypertensive chronic kidney disease with stage 1 through stage 4 chronic kidney disease, or unspecified chronic kidney disease; E79.0 Hyperuricemia without signs of inflammatory arthritis and tophaceous disease; M47.896 Other spondylosis, lumbar region; M51.26 Other intervertebral disc displacement, lumbar region; M51.27 Other intervertebral disc displacement, lumbosacral region; W18.30XA Fall on same level, unspecified, initial encounter; Z91.81 History of falling; Y92.009 Unspecified place in unspecified non-institutional (private) residence as the place of occurrence of the external cause; Z79.4 Long term (current) use of insulin
CPT/HCPCS: 36415; 51702; 72148; 73562; 76770; 80048; 81001; 81374; 82550; 82552; 82570; 82962; 83036; 83516; 83735; 84100; 84300; 84443; 84484; 84550; 85025; 85027; 85652; 86038; 86140; 86160; 86200; 86225; 86226; 86235; 86431; 87205; 93005; 93970; 93971; 97110; 97162; 97165; 97530; 97802; 99285; J7030; 90686; A4216; J2405

== ENCOUNTER 2018-06-20 20:02 | Inpatient (IN) | payer OTHER, SELFPAY ==
[2018-06-20 20:02] VITALS: BMI 39.3
[2018-06-20 22:06] VITALS: BP 191/84; PULSE 60; RESP 12; TEMP 36.8; O2SAT 93; BMI 44.7
[2018-06-20 22:13] VITALS: BP 157/71
[2018-06-21] VITALS (9 sets, daily range): BP systolic 141–188; BP diastolic 80–91; PULSE 57–83; RESP 16–18; TEMP 36.6–36.7; O2SAT 94–98
[2018-06-21] MEDS: Montelukast 10 MG Tablet PO ×2 (00:14→22:22)
[2018-06-21] MEDS: Mupirocin Ointment 22gm Tube 1 APPLIC TOPICAL ×3 (00:15→22:23)
[2018-06-21] MEDS: Atorvastatin Calcium 20 MG Tablet PO ×2 (00:15→22:22)
[2018-06-21] MEDS: hydrALAZINE 50 MG Tablet PO ×4 (00:15→22:22)
[2018-06-21] MEDS: Gabapentin 300 MG Capsule PO ×2 (00:15→22:22)
[2018-06-21 00:26] LABS: Bedside Glucose 216 mg/dL (70-110)
--- NOTE | 2018-06-21 00:30 | NURSING ---
DR CEDRIC NUNES NOTIFIED THAT PT HAS HEPARIN ORDERED AND NO COAG STUDIES DONE. ORDERS TO GIVE HEPARIN ORDERED AND ADVISE PMD IN AM.
[2018-06-21] MEDS: Heparin Injection (Vial) 5,000 UNIT/ML VIAL 5000 UNIT SC ×3 (00:32→22:23)
[2018-06-21] MEDS: 0.9% NaCl Peripheral Flush Adult/Peds IV ×2 (04:49→20:33)
[2018-06-21 06:51] LABS: Hematocrit 29.9 % (37-47); Hemoglobin 9.6 g/dl (12.0-15.0); Mean Corp Hgb Conc 32.1 g/gl (32-36); Mean Corpuscular Hgb 26.7 pg (27.0-32.0); Mean Corpuscular Volume 83.1 fL (81-99); Mean Platelet Vol. 11.2 fl (6.2-12.0); Platelet Count 338 K/mm3 (150-450); RBC Distribution Width CV 14.7 % (11.6-14.6); RBC Distribution Width SD 43.4 fl (35.1-43.9); White Blood Count 9.1 K/mm3 (4.4-11.0)
[2018-06-21 06:52] LABS: Scan Indicated on CBC? Y/N NO
[2018-06-21 07:05] LABS: Erythrocyte Sedimentation Rate 40 mm/hr (0-30)
[2018-06-21 07:06] LABS: Bedside Glucose 121 mg/dL (70-110)
[2018-06-21 07:12] LABS: Anion Gap 11 (5-15); BUN 71 mg/dL (7-18); Calcium,Total 8.5 mg/dL (8.5-10.1); Chloride 110 mmol/L (98-107); Creatinine, Serum 2.73 mg/dL (0.55-1.02); EST Glomerular Filtration Rate 19 mL/min (>60); Est Glom Filt Rate - Afr Amer 23 mL/min (>60); Glucose 138 mg/dL (74-106); Potassium 4.9 mmol/L (3.5-5.1); Sodium Level 139 mmol/L (136-145)
[2018-06-21 07:16] LABS: CRP 6.64 mg/L (0.0-3.0)
[2018-06-21] MEDS: Multivitamins,Ther W-Minerals Tablet 1 TABLET PO (07:33)
[2018-06-21] MEDS: predniSONE 20 MG Tablet 60 MG PO (07:33)
[2018-06-21] MEDS: amLODIPine 10 MG Tablet PO (07:33)
[2018-06-21] MEDS: Calcium (Elemental) 500 MG Tablet PO ×2 (07:33→17:29)
[2018-06-21] MEDS: Pantoprazole Sodium 20 MG Tablet PO (07:34)
[2018-06-21] MEDS: Senna/Docusate Sodium 1 Tablet 2 TABLET PO ×2 (07:34→22:22)
[2018-06-21] MEDS: Atenolol 100 MG Tablet PO (07:35)
[2018-06-21] MEDS: Fenofibrate 145 MG Tablet PO (07:35)
[2018-06-21] MEDS: Sertraline 100 MG Tablet PO (07:35)
--- NOTE | 2018-06-21 10:07 | MRI_ITS ---
STUDY: MRI BRAIN WITHOUT CONTRAST REASON FOR EXAM: Female, 58 years old. Leg weakness TECHNIQUE: Standardized multiplanar fat and water weighted pulse sequences were obtained. COMPARISON: None. FINDINGS: Normal size of the ventricles and extra-axial spaces for the patient's age. Normal white matter tracts of the supratentorial brain. There is no evidence for recent intracranial ischemia or other cause of cytotoxic edema on diffusion weighted imaging (DWI). Normal bilateral basal ganglia. Normal thalami. There is no extra-axial fluid accumulation. Normal flow voids within the major intracranial circulation suggesting patency by spin echo criteria. Normal sella turcica, pituitary gland, infundibular stalk, optic chiasm and hypothalamus. Normal tectal plate and pineal gland. Normal midbrain, apurva and medulla. Normal cerebellum. Normal basal cisterns. Normal bilateral temporal bones. Normal bilateral internal auditory canals. No demonstrated orbital abnormality, within the constraints of a routine brain study. Air-fluid level right maxillary sinus and sphenoid sinus. Normal calvarium and skull base. Normal visualized soft tissue structures. Normal visualized upper cervical spine. MRI/Brain without Contrast IMPRESSION: Acute sinusitis otherwise no acute intracranial disease Electronically Signed: Sathish Regalado MD at 16:34 EST , Service support ,
--- NOTE | 2018-06-21 10:08 | MRI_ITS ---
STUDY: MRI CERVICAL SPINE WITHOUT CONTRAST REASON FOR EXAM: Female, 58 years old. Leg weakness. TECHNIQUE: Standardized fat and water weighted pulse sequences were obtained in the sagittal and axial planes. COMPARISON: None FINDINGS: Normal foramen magnum and brainstem-cervical cord junction. Normal craniovertebral junction. Normal anterior atlantoaxial articulation. Normal odontoid process. Normal cervical lordosis. Normal vertebral bodies and posterior osseous elements. C2-3: Normal endplates. Normal disc height, signal and morphology. Normal central canal and intervertebral neural foramina. C3-4: Normal endplates. Normal disc height, signal and morphology. Normal central canal and intervertebral neural foramina. C4-5: Normal endplates. Normal disc height, signal and morphology. Normal central canal and intervertebral neural foramina. C5-6: Broad-based midline and para midline disc herniation at C5-6 more prominent on the left side impinging on the left C6 nerve root. Normal central canal and intervertebral neural foramina. C6-7: Normal endplates. Normal disc height, signal and morphology. Normal central canal and intervertebral neural foramina. C7-T1: Normal endplates. Normal disc height, signal and morphology. Normal central canal and intervertebral neural foramina. Normal cervical cord. Normal visualized soft tissue structures. MRI/Spine Cervical (Routine) IMPRESSION: Broad-based midline and para midline disc herniation at C5-6 more prominent on the left side impinging on the left C6 nerve root. Electronically Signed: Mauro Ortiz MD at 8:05 EST Tel , Service support ,
--- NOTE | 2018-06-21 10:45 | HP.PCM.COS_ITS ---
History of Present Illness Date of Admission: 06/20/18 Chief Complaint: Debility The patient is a 58-year-old right handed female who was admitted to the rehab unit for rehabilitation she has a PMH of hyperlipidemia, chronic renal failure stage IV, hypertension, obesity, osteoarthritis and type 2 diabetes mellitus. On 06/14/18 she presented to the emergency department at [facility] after sustaining a fall with complains of left knee pain. She has been having progressive weakness in both legs that began in November of 2017, her initial symptoms began with right foot drop. Her weakness was getting so bad that she required the use of a cane and later a wheel walker to ambulate, now she is un able to walk. She is unable to dorsiflex or plantar flex the R foot. She has good strength in the UE's and CN's II - XII are grossly intact. She lives with family in a 2 story home, prior to the weakness in her legs, she was working, driving and doing all her own ADLs. She no longer works or drives and is unable to ambulate. She is admitted to the rehab unit in order to restore her previous level of functional independence. Past Medical History Past Medical History (Chronic Problems): Chronic Problems Hyperlipidemia (Chronic) Chronic kidney disease (Chronic) HTN (hypertension) (Chronic) Obesity (Chronic) DM2 (diabetes mellitus, type 2) (Chronic) Allergies codeine Allergy (Verified 06/14/18 17:11) Other CONFUSION latex Allergy (Verified 06/14/18 17:11) Hives Sulfa (Sulfonamide Antibiotics) Allergy (Verified 06/14/18 17:11) Rash Home Medications: Ambulatory Orders Medication Instructions Recorded Montelukast [Singulair] 10 mg PO QHS 10/29/13 Simvastatin [Zocor] 40 mg PO QHS 10/29/13 Atenolol [Tenormin (beta shannon)] 100 mg PO DAILY 06/14/18 Gabapentin [Neurontin] 300 mg PO QHS 06/14/18 Multivit-Min/Iron/Folic/Lutein 1 tab PO DAILY 06/14/18 [Centrum Silver Women Tablet] Sertraline HCl 100 mg PO DAILY 06/14/18 Acetaminophen [Tylenol Tablet] 650 mg PO Q8H PRN PRN 06/20/18 Amlodipine [Norvasc] 10 mg PO DAILY 06/20/18 Calcium Carbonate 500 mg PO BID 06/20/18 Fenofibrate [Tricor] 145 mg PO DAILY 06/20/18 Heparin Sodium,Porcine [Heparin 5,000 unit SC Q12H 06/20/18 Sodium] Insulin Glargine [Lantus SoloStar 30 units SC BID 06/20/18 Pen] Mupirocin [Bactroban] 1 applic TOPICAL BID 06/20/18 Oxycodone [Oxyir] 5 mg PO Q6H PRN PRN #1 tablet 06/20/18 Pantoprazole Sodium [Protonix] 20 mg PO DAILY 06/20/18 hydrALAZINE [Apresoline] 50 mg PO TID 06/20/18 predniSONE tablet 60 mg PO DAILY@0800 06/20/18 Surgical History: cholecystectomy, - - Tubal ligation Smoking Status: Never smoker Tobacco Use: Non-smoker - *Family History Maternal History Items: Cancer, Heart Disease Paternal History Items: Diabetes, Heart Disease, Hypertension Sibling History Items: Diabetes Review of Systems Constitutional: Denies: Chills, Fever, Weight Change HEENT: Denies: Head Aches, Sinus Congestion, Sinus Drainage Cardiovascular: Denies: Chest Pain, Palpitations Respiratory: Denies: Cough, Shortness of breath at rest, Sputum production Gastrointestinal: Denies: Abdominal Pain, Nausea, Vomiting Genitourinary: Denies: Dysuria Musculoskeletal: Denies: Joint Pain, Joint Tenderness Skin: Denies: Rash, Wounds Neurological: Denies: Numbness, Tingling, Focal weakness Psychiatric: Denies: Anxiety, Depression, Homicidal Ideations, Suicidal Ideations Hematologic/ Lymphatic: Denies: Easy Bruising, Easy Bleeding VTE Information - Inpt Only VTE Present on Admission: No VTE Mechan Device Prophylaxis: SCD's, Knee High ODETTE Hose VTE Pharm Prophylaxis ordered?: Yes - Physical Exam General: Alert, Oriented x3, Cooperative HEENT: Atraumatic, PERRLA, EOMI, Normocephalic Neck: Supple, No JVD, Negative Carotid Bruits Lungs: Clear to auscultation, Normal air movement Cardiovascular: Regular rate, No murmurs Abdomen: Bowel Sounds Present, Soft, Non Tender Extremities: No edema, Capillary Refill Less than 3 Seconds Skin: No rashes, No breakdown Musculoskeletal: No Tenderness to Palpation of Joints or Extremities Neurological: Cranial nerves II-XII grossly intact, - - 1/5 strength in the LLE and 2-3/5 in the RLE. Foot droop on the R Psych/Mental Status: Normal Affect, Appropriate, Alert and oriented to time, place, person, mood and affect Vital Signs Temp Pulse Resp BP Pulse Ox 98.1 F 57 L 16 141/80 H 94 06/21/18 08:14 06/21/18 08:14 06/21/18 08:14 06/21/18 08:14 06/21/18 08:14 Oxygen Delivery Method Room Air Weight: 110.9 kg Body Mass Index (BMI) 44.7 Intake and Output for Last 24 Hours 06/19/18 06/20/18 06/21/18 23:59 23:59 23:59 Output Total 850 / 850 Balance -850 / -850 Laboratory Tests Past 24 Hrs 06/21/18 06/21/18 06/21/18 06:44 06:44 06:44 WBC 9.1 RBC 3.60 L Hgb 9.6 L Hct 29.9 L MCV 83.1 MCH 26.7 L MCHC 32.1 RDW 14.7 H RDW Differential 43.4 Plt Count 338 MPV 11.2 ESR 40 H Sodium 139 Potassium 4.9 Chloride 110 H Carbon Dioxide 18.0 L Anion Gap 11 BUN 71 H Creatinine 2.73 H Estim Creat Clear Calc 18.20 Est GFR (MDRD) Af Amer 23 L Est GFR (MDRD) Non-Af 19 L BUN/Creatinine Ratio 26.0 H Glucose 138 H Calcium 8.5 C-React Prot Ext Range 06/21/18 06:44 WBC RBC Hgb Hct MCV MCH MCHC RDW RDW Differential Plt Count MPV ESR Sodium Potassium Chloride Carbon Dioxide Anion Gap BUN Creatinine Estim Creat Clear Calc Est GFR (MDRD) Af Amer Est GFR (MDRD) Non-Af BUN/Creatinine Ratio Glucose Calcium C-React Prot Ext Range 6.64 H POC Glucose 06/21/18 06/20/18 06:53 23:53 POC Glucose 121 H 216 H Active Medications Acetaminophen (Tylenol) 650 mg PO Q8H PRN PRN PRN Reason: PAIN Amlodipine Besylate (Norvasc) 10 mg PO DAILY SHAHANA Last Admin: 06/21/18 07:33 Dose: 10 mg Atenolol (Tenormin (Beta Shannon)) 100 mg PO DAILY [facility] Last Admin: 06/21/18 07:35 Dose: 100 mg Atorvastatin Calcium (Lipitor) 20 mg PO QHS [facility] Last Admin: 06/21/18 00:15 Dose: 20 mg Bisacodyl (Dulcolax) 10 mg RECTAL .PRN X 1 PRN PRN Reason: Constipation Calcium Carbonate (Os-Chinedu 500) 500 mg PO BIDCM [facility] Last Admin: 06/21/18 07:33 Dose: 500 mg Fenofibrate (Tricor) 145 mg PO DAILY [facility] Last Admin: 06/21/18 07:35 Dose: 145 mg Gabapentin (Neurontin) 300 mg PO QHS [facility] Last Admin: 06/21/18 00:15 Dose: 300 mg Heparin Sodium (Porcine) (Heparin Na) 5,000 unit SC Q12 [facility] Last Admin: 06/21/18 07:41 Dose: 5,000 unit Hydralazine HCl (Apresoline) 50 mg PO TID [facility] Last Admin: 06/21/18 06:55 Dose: 50 mg Insulin Glargine (Lantus (Bkc)) 30 units SC BID [facility] Last Admin: 06/21/18 09:40 Dose: 30 units Insulin Human Lispro (Humalog Kwikpen (Bkc)) 0 unit SC ACHS [facility]; Protocol Last Admin: 06/21/18 06:54 Dose: Not Given Lorazepam (Ativan) 1 mg PO X1 ONE Stop: 06/21/18 10:38 Magnesium Hydroxide (Milk Of Magnesia) 30 ml PO .PRN X 1 PRN PRN Reason: Constipation Montelukast Sodium (Singulair) 10 mg PO QHS [facility] Last Admin: 06/21/18 00:14 Dose: 10 mg Multivitamins/Minerals (Multivitamin With Minerals) 1 tablet PO DAILY@0800 [facility] Last Admin: 06/21/18 07:33 Dose: 1 tablet Mupirocin (Bactroban) 1 applic TOPICAL BID [facility]; Protocol Last Admin: 06/21/18 09:41 Dose: 1 applicatio Oxycodone HCl (Oxyir) 5 mg PO Q6H PRN PRN PRN Reason: SEVERE PAIN (6-10/10) Pantoprazole Sodium (Protonix) 20 mg PO DAILY [facility] Last Admin: 06/21/18 07:34 Dose: 20 mg Prednisone () 60 mg PO DAILY@0800 [facility] Last Admin: 06/21/18 07:33 Dose: 60 mg Senna/Docusate Sodium (Senokot-S, Leti-Colace) 2 tablet PO BID [facility] Last Admin: 06/21/18 07:34 Dose: 1 tablet Sertraline HCl (Zoloft) 100 mg PO DAILY [facility] Last Admin: 06/21/18 07:35 Dose: 100 mg Sodium Chloride () 5 - 15 ml IV UD PRN PRN Reason: SALINE FLUSH Last Admin: 06/21/18 04:49 Dose: 10 ml Assessment/Plan All Active Problems Debility (Acute) Debility 2/2 rapidly progressive loss of function and LE weakness, complicated by DM II, Chronic Renal failure stage IV and obesity. Goal of rehab is episcopal of functional independence. Plan: - Physical therapy for gait and balance - Occupational Therapy for ADLs - As needed analgesics - Bowel protocol - DVT prophylaxis: SCDs, ASA, Lovenox - DM type II - A1c 7.1 on admission, blood sugars ACHS, Moderate sliding scale, Lantus 30 units BID - Renal failure stage IV (Chronic) -Check BMP in 3 days, on d/c follow up appointment with Dr. Payan for Fistula placement - Hx Osteoarthritis - no tx at this time - Hx of HLD - continue home dose of Lipitor - Hx of Hypertension - well controlled and stable on current medication of Norvasc, and Atenolol - Obesity - BMI is 44.7, encourage weight loss, consult nutrition - Fall risk - EMG of b/l lower extremity - MRI brain - Lumbar puncture - CIDP - Solumedrol 1G daily x 5 days then switch to prednisone 60mg
--- NOTE | 2018-06-21 11:26 | REHABEVAL_ITS ---
Admission Information Status Changes from Prescreening?: No changes Identified Actual Problem List:: Pain, ALteration in Cmfrt, Mobility Impaired, Self Care Deficit, Diabetes, Hyperglycemia Potential Problem List:: DVT, Bleeding, Infection, UTI, Aspiration, Falls, Skin Integrity, Depression Risk of Complications DVT: LMWH, ODETTE Hose, Sequential Compression Device Bleeding: Monitor Lab Values, Nursing to Teach Precautions for anti-coagulation therapy., Wound, if applicable, to be assessed every shift., Stroke patients assessed for lethargy or change in status. Infection: Clinical Staff to Monitor for S/S of infection:, S/S of infection include fever, redness, warmth, etc. Urinary Tract Infection: Monitor for frequency, burning, discomfort, or incontinence., Nursing will obtain urine sample for urinalysis and C&S when ordered. Aspiration: Clinical staff will monitor for coughing, drooling, congestion., Speech will evaluate swallowing and dsyphasia., Nursing will monitor patient swallowing during meals. Falls: Patient will be evaluated for Fall Precautions, Patient will be placed on Fall Precautions as indicated per protocol. Skin Breakdown: Nursing will assess skin daily using assessment tool., Nursing will place on Skin Breakdown Precautions as indicated. Pain: Clinical staff will assess patient's pain level per protocol., Medications will be given, if needed, and the pain level reassessed., Other methods: Massage, distraction, decrease stimulus, etc. used PRN. Plan of Care Patient requires physician specializing in physical medicine and rehab oversight to provide close medical supervision of rehab issues including: Pain Management, Sleep Problems, Bowel and Bladder, Medical and co-morbidity Management, DVT prophylaxis, Rehabilitation Leadership, Coordination of treatment team Patient needs Physical Therapy: For a minimum of 1 hour, At least 5 out of 7 days Patient needs Physical Therapy to improve:: Mobility, Mobility, Mobility, Strengthening, Transfers, Stretching, ROM, Endurance, Stairs, Gait, Balance Patient needs Occupational Therapy: For a minimum of 1 hour, At least 5 out of 7 days Patient needs Occupational Therapy to improve ADL's incl.: Eating, Grooming, Bathing, Dressing, Toileting, Toilet transfers, Community Reintegration, Higher functioning activities, Household tasks, Adaptive Equipment, Splinting, Other activities as determined Patient requires speech therapy: For a minimum of 1 hour, At least 5 out of 7 days Patient requires speech therapy for: Swallowing, Cognition, Language Skills, Compensatory Strategies Patient requires 24/7 Rehabilitation Nursing for: Pain Issues, Identifying and preventing risk factors, Monitoring and reporting current medical conditions, Assisting with ambulation, transfer, and all ADL's, Teaching patients about disease process and medications, Family teaching, Providing safe environment, Bowel and Bladder Issues, Skin integrity, Medication Management Patient needs Director Information Security/ Case Management for: Discharge Planning, Arranging Home Equipment or Services, Family Interventions Patient needs Dietary and Nutrition Services for: Adequate Nutrition, Nutritional Supplements, Nutritional Education Goals Patient will remain: free from falls, or injury at time of discharge. Patient will perform bed mobility at: MOD I level of assist. Patient will complete transfers from bed to chair at: MOD I level of assist. Patient will ambulate: 100 feet, with MOD I assist, with LRD Patient will complete upper body dressing at: MOD I level of assist. Patient will complete lower body dressing at: MOD I level of assist. Patient will complete toileting at: MOD I level of assist. Patient will perform bathing at: MOD I level of assist. Patient will complete grooming at: MOD I level of assist. Patient will complete home management skills at: MOD I level of assist. Patient will achieve: 12 stairs, at MOD I assist Patient will have pain level of: of 3 or less Patient's skin will: remain intact, free from infection. Patient will receive: adequate nutrition. Discharge Planning Pt Prognosis for Sig. Practical Improv. w/in Reasonable Time: Fair Estimated Length of stay (days): 20 Anticipated D/C Destination: Home with Outpt Therapy
[2018-06-21 12:11] LABS: Bedside Glucose 209 mg/dL (70-110)
[2018-06-21 12:14] LABS: Lyme Ab Screen Interpretation REF LAB
[2018-06-21] MEDS: Insulin Lispro 100 UNIT/ML INSULN.PEN SC ×3 (12:57→22:28)
[2018-06-21] MEDS: LORazepam 1 MG Tablet PO (13:40)
--- NOTE | 2018-06-21 16:27 | CHAPLAIN ---
Type of Pastoral Visit ___ Initial Visit _x__ Follow-up Visit ___ On-call Visit ___ General Patient Visit ___ Spiritual Assessment ___ Family Conference ___ Bereavement ___ Rapid Response ___ Code Blue ___ Other (describe below) Pastoral Care Referral From _x__ Patient ___ Family ___ Nurse ___ Physician ___ Icing Machine Operator ___ Woodwork Salvage Inspector ___ Other (describe below) Sacrament/Intervention _x__ Active listening ___ Anointing ___ Confucianist ___ Bereavement ___ Communion _x__ Thais exploration ___ ___ Life review _x__ Prayer ___ Reconciliation ___ Sacrament of Sick _x__ Supportive presence ___ Wedding ___ Other (describe below) Pastoral Comments
[2018-06-21 17:00] LABS: Bedside Glucose 316 mg/dL (70-110)
[2018-06-21] MEDS: Insulin Lispro 100 UNIT/ML INSULN.PEN 10 UNIT SC (18:53)
[2018-06-21 21:31] LABS: Bedside Glucose 298 mg/dL (70-110)
[2018-06-22] VITALS (7 sets, daily range): BP systolic 145–196; BP diastolic 73–94; PULSE 60–61; RESP 16–18; TEMP 36.4–36.7; O2SAT 93–97
--- NOTE | 2018-06-22 | CYSPIN_PTH ---
PATIENT: STACEY WOODSON LOC: RU U#:[id number] AGE/SX: 58/F ROOM: RU405 RE06/20/[address]: Dr. Sloane Barber MD : [id number] BED: 1 DIS: 07/16/2018 SPEC #: [id number] RECD: 06/22/18 13:16 STATUS: DEVI NIKA #: [id number] HORACIO: 06/22/18 00:[address]: Mony Boyer DEPT: CYTOLOGY RECD BY: Duane Maurer ENTERED: 06/22/18 13:17 SP TYPE: CYSPIN FL OT DR: DO Dr. Param Molina MD Tissues: Cerebrospinal Fluid Procedures: Pap Stain (control) Special Stain Group II Cytospin Fluid HEADER OPERATION: Lumbar puncture PRE-OP DIAGNOSIS: Demyelinating disease TISSUE SUBMITTED: Cerebrospinal fluid for cytology DIAGNOSIS CYTOLOGY Cerebrospinal fluid for cytology (cytospin): Negative for malignant cells. AM:rafael 06/25/18 CYTOLOGY STUDY Slides are reviewed. CYTOLOGY GROSS Received is 25 ml of clear fluid labeled with the patient's name and and designated per the requisition as CSF. Submitted for cytology preparation. 06/22/18 TC:5 CPT: 05521
--- NOTE | 2018-06-22 01:01 | NURSING ---
24 hour urine finished and sent to lab
[2018-06-22] MEDS: hydrALAZINE 50 MG Tablet PO ×3 (06:34→21:40)
--- NOTE | 2018-06-22 08:16 | PCM.PN.BLA ---
Progress Note All events the past 24 hours of been reviewed. She is afebrile. Blood pressures have been elevated and have ranged from 141/80-190 6/94 this morning. Pulses regular and within normal limits. Pulse ox on room air ranges from 93-97%. I spoke with Dr. Boyer yesterday and he feels the diagnosis is CIDP and not neurovascular vasculitis. Prednisone was discontinued and she has been started on Solu-Medrol 1 g IV daily. The blood sugar record has been reviewed. Blood sugar at at bedtime was 298 and at suppertime yesterday was 316. She had not been getting the scheduled insulin with meals and was only on a sliding scale and this was rectified last evening. Alert and oriented x3, no apparent distress, pleasant Cranial nerves II through XII grossly intact, P pupils equal and reactive to light, extraocular muscles are intact, mucous membranes are moist, no mucosal lesions Lungs-clear to auscultation throughout, symmetric chest expansion Heart-regular rate and rhythm, no JVD, no murmur, no gallop, no rub Abdomen-soft, nontender, nondistended, normal bowel sounds present No edema, no cyanosis, no calf tenderness No rashes and no skin breakdown appropriate, normal affect, pleasant Impressions 1. CIDP - steroids changed to 1 GM IV solu-medrol daily for 5 days 2. DM II - well controlled as an OP....BS's are coming under better control with adjustments in the insulin 3. stage IV CRF - needs a fistula - has been seen by Dr. Payan. 4. Nephrotic range proteinuria TIAGO screen is negative P-ANCA is negative, c-ANCA is negative C3, C4 are pending HLA-B27 antibodies are pending Lyme's and West Nile serology are pending For lumbar puncture today Code Visit Inpatient E&M: 01896 Subs Hosp L2
[2018-06-22 08:36] LABS: Bedside Glucose 254 mg/dL (70-110)
[2018-06-22 09:04] LABS: International Normalized Ratio 1.2; Prothrombin Time (Protime)PT. 15.6 SECONDS (11.7-14.9)
[2018-06-22 09:05] LABS: Partial Thromboplast Time 27.1 Seconds (24.1-36.2)
[2018-06-22 09:14] LABS: 24HR. UA Prot. Total Volume 950 mL
[2018-06-22 09:22] LABS: Urine Protein (24 Hour) 473.5 mg/dL (<11.9)
[2018-06-22] MEDS: Insulin Lispro 100 UNIT/ML INSULN.PEN SC ×4 (10:18→21:41)
[2018-06-22] MEDS: Insulin Lispro 100 UNIT/ML INSULN.PEN 8 UNIT SC (10:19)
--- NOTE | 2018-06-22 10:50 | RAD_ITS ---
PROCEDURE: Fluoroscopic guided Lumbar Puncture. DATE: June 22, 2018. CLINICAL INDICATION: Demyelinating disease. PHYSICIAN: Sylvester Minaya M.D. MEDICATIONS: 1% lidocaine administered subcutaneously for local anesthesia. ACCESS SITE: Lower posterior back. NEEDLE: 22-gauge spinal needle. SPECIMEN: Approximately 12 mL clear]CSF fluid. FLUOROSCOPY TIME (if supplied): (1:20) minutes/seconds COMPLICATIONS: None immediate. The risks, benefits, and alternatives to the procedure were explained to the patient. The specific risks of bleeding, infection, and neurovascular injury were detailed and accepted. Witnessed informed consent was obtained. The patient was placed on the fluoroscopic table in the prone position. The level for needle entry was determined and marked. The overlying skin was cleaned and prepped in the usual sterile fashion. 2% lidocaine was administered subcutaneously for local anesthesia. Under fluoroscopic guidance a 22-gauge spinal needle was advanced. The thecal sac was entered at the L3- L4 vertebral level. The inner stylet was removed. There was spontaneous flow of clear CSF fluid. The patient was placed in a reversed Trendelenburg position. Approximately 12 mL of cerebrospinal fluid was collected using gravity. The specimen was collected and submitted to the laboratory for further evaluation. The needle was withdrawn,. Hemostasis was achieved and a sterile dressing placed. The patient tolerated the procedure well without any immediate complications. The patient was placed supine with head elevated and returned to the floor in stable condition. RAD/Fluoro Guided Lumbar Puncture IMPRESSION: Successful fluoroscopic-guided lumbar puncture. Electronically Signed: Sylvester Minaya MD at 12:36 EST Tel [phone], Service support ,
--- NOTE | 2018-06-22 11:10 | NURSING ---
Pt back from procedure Per. Mcclain pt should be bedrest the rest of the day to prevent spinal headache. Pt resting in room in stable condition.
[2018-06-22 11:23] LABS: Cytology, Body Fluid / CSF SEE PATHOLOGY REPORT
[2018-06-22 11:39] LABS: Body Fluid Mononuclear WBC # 0.004 10^3/uL; Body Fluid Mononuclear WBC % 36.4 %; Body Fluid Polynuclear WBC # 0.007 10^3/uL; Body Fluid Polynuclear WBC % 63.6 %; Total Cell Count CSF 0.011 10^3/uL (0.000-0.000); White Count, CSF 0.011 10^3/uL (0.000-0.000)
[2018-06-22 11:54] LABS: Glucose Spinal Fluid 128 mg/dL (40-75)
[2018-06-22] MEDS: amLODIPine 10 MG Tablet PO (12:08)
[2018-06-22] MEDS: Calcium (Elemental) 500 MG Tablet PO ×2 (12:08→17:50)
[2018-06-22] MEDS: Multivitamins,Ther W-Minerals Tablet 1 TABLET PO (12:08)
[2018-06-22] MEDS: Pantoprazole Sodium 20 MG Tablet PO (12:08)
[2018-06-22] MEDS: Sertraline 100 MG Tablet PO (12:09)
[2018-06-22] MEDS: Fenofibrate 145 MG Tablet PO (12:09)
[2018-06-22] MEDS: Atenolol 100 MG Tablet PO (12:09)
[2018-06-22] MEDS: Mupirocin Ointment 22gm Tube 1 APPLIC TOPICAL ×2 (12:10→21:40)
[2018-06-22] MEDS: Senna/Docusate Sodium 1 Tablet 2 TABLET PO ×2 (12:12→21:43)
[2018-06-22 12:19] LABS: Appearance CSF (character) CLEAR (Clear); Auto B Fluid Analyzer BKGD Ct COUNTS W/IN LIMITS (W/IN LIMITS); Body Fluid QC Type(s) BF1Q; CSF Color COLORLESS (Colorless); RBC Count, Spinal Fluid 0 /mm-3 (None seen); Tested Tube # 4
[2018-06-22 12:21] LABS: Bedside Glucose 179 mg/dL (70-110)
[2018-06-22] MEDS: Insulin Lispro 100 UNIT/ML INSULN.PEN 10 UNIT SC ×2 (12:22→17:51)
[2018-06-22 14:06] LABS: Anti-Jo <0.2 AI (0.0-0.9); Anti-Scleroderma-70 AB <0.2 AI (0.0-0.9); RNP Ab <0.2 AI (0.0-0.9); SJOGREN'S Anti-SS-A test < 0.2 AI (0.0-0.9); SJOGREN'S Anti-SS-B test < 0.2 AI (0.0-0.9); Smith Ab <0.2 AI (0.0-0.9)
[2018-06-22 14:49] LABS: Anti-Centromere B Ab <0.2 AI (0.0-0.9); Anti-dsDNA Ab <1 IU/mL (0-9)
[2018-06-22 18:11] LABS: Bedside Glucose 228 mg/dL (70-110)
[2018-06-22] MEDS: Atorvastatin Calcium 20 MG Tablet PO (21:42)
[2018-06-22] MEDS: Gabapentin 300 MG Capsule PO (21:42)
[2018-06-22] MEDS: 0.9% NaCl Peripheral Flush Adult/Peds IV (21:43)
[2018-06-22] MEDS: Acetaminophen 325 MG Tablet 650 MG PO (21:43)
[2018-06-22] MEDS: Montelukast 10 MG Tablet PO (21:43)
[2018-06-22 23:31] LABS: Bedside Glucose 360 mg/dL (70-110)
[2018-06-23 07:10] LABS: Bedside Glucose 243 mg/dL (70-110)
[2018-06-23 07:46] VITALS: BP 156/69; PULSE 59; RESP 16; TEMP 36.6; O2SAT 96
[2018-06-23 08:31] VITALS: O2SAT 94
[2018-06-23] MEDS: oxyCODONE 5 MG Tablet PO (08:45)
[2018-06-23 08:46] VITALS: BP 156/69; PULSE 59
[2018-06-23] MEDS: Senna/Docusate Sodium 1 Tablet 2 TABLET PO ×2 (08:46→22:44)
[2018-06-23] MEDS: amLODIPine 10 MG Tablet PO (08:46)
[2018-06-23] MEDS: hydrALAZINE 50 MG Tablet PO ×3 (08:46→22:43)
[2018-06-23] MEDS: Calcium (Elemental) 500 MG Tablet PO ×2 (08:46→17:54)
[2018-06-23] MEDS: Pantoprazole Sodium 20 MG Tablet PO (08:46)
[2018-06-23] MEDS: Fenofibrate 145 MG Tablet PO (08:46)
[2018-06-23] MEDS: Sertraline 100 MG Tablet PO (08:46)
[2018-06-23] MEDS: Multivitamins,Ther W-Minerals Tablet 1 TABLET PO (08:46)
[2018-06-23] MEDS: Insulin Lispro 100 UNIT/ML INSULN.PEN SC ×3 (08:47→22:43)
[2018-06-23] MEDS: Insulin Lispro 100 UNIT/ML INSULN.PEN 8 UNIT SC (08:48)
[2018-06-23] MEDS: Atenolol 100 MG Tablet PO (08:49)
[2018-06-23] MEDS: Heparin Injection (Vial) 5,000 UNIT/ML VIAL 5000 UNIT SC ×2 (08:49→22:43)
[2018-06-23] MEDS: Mupirocin Ointment 22gm Tube 1 APPLIC TOPICAL ×2 (08:49→22:43)
[2018-06-23 11:36] LABS: Bedside Glucose 232 mg/dL (70-110)
[2018-06-23] MEDS: Insulin Lispro 100 UNIT/ML INSULN.PEN 10 UNIT SC ×2 (12:39→17:54)
[2018-06-23 14:48] VITALS: BP 138/71; PULSE 52
[2018-06-23] MEDS: busPIRone 5 MG Tablet PO ×2 (14:48→22:43)
[2018-06-23] MEDS: Ondansetron ODT 4 MG Tablet PO (15:06)
[2018-06-23 17:30] LABS: Bedside Glucose 149 mg/dL (70-110)
[2018-06-23] MEDS: Acetaminophen 325 MG Tablet 650 MG PO (20:10)
[2018-06-23 21:21] LABS: Bedside Glucose 202 mg/dL (70-110)
[2018-06-23 22:31] VITALS: BP 154/73; PULSE 54; RESP 18; TEMP 36.4; O2SAT 97
[2018-06-23 22:43] VITALS: BP 154/73; PULSE 54
[2018-06-23] MEDS: Atorvastatin Calcium 20 MG Tablet PO (22:44)
[2018-06-23] MEDS: Gabapentin 300 MG Capsule PO (22:44)
[2018-06-23] MEDS: Montelukast 10 MG Tablet PO (22:45)
[2018-06-24 06:33] VITALS: BP 148/72; PULSE 52
[2018-06-24] MEDS: hydrALAZINE 50 MG Tablet PO ×3 (06:33→20:47)
[2018-06-24] MEDS: busPIRone 5 MG Tablet PO ×3 (06:33→20:48)
[2018-06-24 07:06] LABS: Bedside Glucose 109 mg/dL (70-110)
[2018-06-24 07:24] VITALS: BP 148/72; PULSE 52; RESP 18; TEMP 36.3; O2SAT 98
[2018-06-24] MEDS: Heparin Injection (Vial) 5,000 UNIT/ML VIAL 5000 UNIT SC ×2 (08:13→20:48)
[2018-06-24] MEDS: Senna/Docusate Sodium 1 Tablet 2 TABLET PO ×2 (08:13→20:49)
[2018-06-24] MEDS: amLODIPine 10 MG Tablet PO (08:14)
[2018-06-24] MEDS: Calcium (Elemental) 500 MG Tablet PO ×2 (08:14→16:58)
[2018-06-24] MEDS: Fenofibrate 145 MG Tablet PO (08:14)
[2018-06-24] MEDS: Sertraline 100 MG Tablet PO (08:14)
[2018-06-24] MEDS: Multivitamins,Ther W-Minerals Tablet 1 TABLET PO (08:14)
[2018-06-24] MEDS: Atenolol 100 MG Tablet PO (08:14)
[2018-06-24] MEDS: Pantoprazole Sodium 20 MG Tablet PO (08:14)
[2018-06-24] MEDS: Insulin Lispro 100 UNIT/ML INSULN.PEN 8 UNIT SC (08:15)
[2018-06-24] MEDS: Mupirocin Ointment 22gm Tube 1 APPLIC TOPICAL ×2 (08:16→20:48)
[2018-06-24 12:05] LABS: Bedside Glucose 135 mg/dL (70-110)
[2018-06-24] MEDS: Insulin Lispro 100 UNIT/ML INSULN.PEN 10 UNIT SC ×2 (12:33→16:55)
[2018-06-24 13:44] VITALS: PULSE 65
[2018-06-24] MEDS: Insulin Lispro 100 UNIT/ML INSULN.PEN SC ×2 (16:55→20:52)
[2018-06-24 16:56] LABS: Bedside Glucose 132 mg/dL (70-110)
[2018-06-24 20:30] VITALS: BP 148/80; PULSE 60; RESP 18; TEMP 37.2; O2SAT 93
[2018-06-24 20:47] VITALS: BP 148/80; PULSE 60
[2018-06-24] MEDS: Montelukast 10 MG Tablet PO (20:49)
[2018-06-24] MEDS: Atorvastatin Calcium 20 MG Tablet PO (20:49)
[2018-06-24] MEDS: Gabapentin 300 MG Capsule PO (20:49)
[2018-06-24 22:02] LABS: Bedside Glucose 180 mg/dL (70-110)
--- NOTE | 2018-06-25 02:02 | NURSING ---
Reviewed & agree with WATERPROOFER documentation & [facility] charting
[2018-06-25 05:14] VITALS: BP 157/77; PULSE 58
[2018-06-25] MEDS: busPIRone 5 MG Tablet PO ×3 (05:14→21:42)
[2018-06-25] MEDS: hydrALAZINE 50 MG Tablet PO ×3 (05:14→21:42)
[2018-06-25] MEDS: Ondansetron ODT 4 MG Tablet PO (05:51)
--- NOTE | 2018-06-25 05:52 | NURSING ---
pt became very dizzy and nauseated with turning the bed and repositioning. pt began dry heaving and had a small emesis of yellow fluid , pt given zofran as per order and cool cloth for head
[2018-06-25 06:51] LABS: Bedside Glucose 101 mg/dL (70-110)
[2018-06-25 07:00] VITALS: BP 157/77; PULSE 58; RESP 18; TEMP 36.8; O2SAT 97
[2018-06-25] MEDS: Mupirocin Ointment 22gm Tube 1 APPLIC TOPICAL ×2 (08:07→21:41)
[2018-06-25] MEDS: Heparin Injection (Vial) 5,000 UNIT/ML VIAL 5000 UNIT SC ×2 (08:07→21:41)
[2018-06-25] MEDS: Pantoprazole Sodium 20 MG Tablet PO (08:09)
[2018-06-25] MEDS: Atenolol 100 MG Tablet PO (08:09)
[2018-06-25] MEDS: Senna/Docusate Sodium 1 Tablet 2 TABLET PO ×2 (08:09→21:42)
[2018-06-25] MEDS: Sertraline 100 MG Tablet PO (08:09)
[2018-06-25] MEDS: Calcium (Elemental) 500 MG Tablet PO ×2 (08:09→17:29)
[2018-06-25] MEDS: Fenofibrate 145 MG Tablet PO (08:09)
[2018-06-25] MEDS: Multivitamins,Ther W-Minerals Tablet 1 TABLET PO (08:09)
[2018-06-25] MEDS: amLODIPine 10 MG Tablet PO (08:09)
--- NOTE | 2018-06-25 10:55 | PCM.PN.NEU ---
Subjective: Staffed in team meeting. No family at bedside, questions answered. With Physical therapy, she is moderate assistance for getting in and out of the bed. She uses the sliding board at moderate assist of two people for transfers. She use the wheel chair for mobility without any issues. She is able to stand for 15 seconds with the aid of two persons assist. With Occupational therapy, she is moderate assist for bathing, she is able to do her on personal grooming at set up while seated. She is a total assist for dressing and washing her lower body, she is proficient at using the adaptive equipment. With Nursing her vital signs are stable along with her Blood sugars. She expressed some anxiety over the weekend and was started on BuSpar by the Hospitalist, she is tolerating the medication well. Will re-team her again on Sunday 07/02 of next week. - Physical Exam General: Alert, Oriented x3, Cooperative HEENT: Atraumatic, PERRLA, EOMI, Normocephalic Neck: Supple, No JVD, Negative Carotid Bruits Lungs: Clear to auscultation, Normal air movement Cardiovascular: Regular rate, No murmurs Abdomen: Bowel Sounds Present, Soft, Non Tender Extremities: No edema, Capillary Refill Less than 3 Seconds Skin: No rashes, No breakdown Musculoskeletal: No Tenderness to Palpation of Joints or Extremities Neurological: Cranial nerves II-XII grossly intact Psych/Mental Status: Normal Affect, Appropriate, Alert and oriented to time, place, person, mood and affect Vital Signs Temp Pulse Resp BP Pulse Ox 98.2 F 58 L 18 157/77 H 97 06/25/18 07:00 06/25/18 07:00 06/25/18 07:00 06/25/18 07:00 06/25/18 07:00 Oxygen Delivery Method Room Air Weight: 110.9 kg Body Mass Index (BMI) 44.7 Intake and Output for Last 24 Hours 06/23/18 06/24/18 06/25/18 23:59 23:59 23:59 Intake Total 960 / 960 560 / 560 600 / 600 Output Total 450 / 450 650 / 650 100 / 100 Balance 510 / 510 -90 / -90 500 / 500 Microbiology Past 72 Hours 06/22/18 11:03 Gram Stain - Final Csf, Spinal Fluid CSF Culture - Final No growth in 72 hours. POC Glucose 06/25/18 06/24/18 06/24/18 06:39 20:50 16:47 POC Glucose 101 180 H 132 H 06/24/18 12:00 POC Glucose 135 H Active Medications Acetaminophen (Tylenol) 650 mg PO Q8H PRN PRN PRN Reason: PAIN Last Admin: 06/23/18 20:10 Dose: 650 mg Amlodipine Besylate (Norvasc) 10 mg PO DAILY [facility] Last Admin: 06/25/18 08:09 Dose: 10 mg Atenolol (Tenormin (Beta Shannon)) 100 mg PO DAILY [facility] Last Admin: 06/25/18 08:09 Dose: 100 mg Atorvastatin Calcium (Lipitor) 20 mg PO QHS [facility] Last Admin: 06/24/18 20:49 Dose: 20 mg Bisacodyl (Dulcolax) 10 mg RECTAL .PRN X 1 PRN PRN Reason: Constipation Buspirone HCl (Buspar) 5 mg PO TID [facility] Last Admin: 06/25/18 05:14 Dose: 5 mg Calcium Carbonate (Os-Chinedu 500) 500 mg PO BIDCM [facility] Last Admin: 06/25/18 08:09 Dose: 500 mg Fenofibrate (Tricor) 145 mg PO DAILY [facility] Last Admin: 06/25/18 08:09 Dose: 145 mg Gabapentin (Neurontin) 300 mg PO QHS [facility] Last Admin: 06/24/18 20:49 Dose: 300 mg Heparin Sodium (Porcine) (Heparin Na) 5,000 unit SC Q12 [facility] Last Admin: 06/25/18 08:07 Dose: 5,000 unit Hydralazine HCl (Apresoline) 50 mg PO TID [facility] Last Admin: 06/25/18 05:14 Dose: 50 mg Methylprednisolone 1,000 mg/ (Sodium Chloride) 116 mls @ 100 mls/hr IV DAILY [facility] Stop: 06/25/18 11:10 Last Admin: 06/24/18 09:36 Dose: 100 mls/hr Insulin Glargine (Lantus (Bkc)) 30 units SC BID [facility] Last Admin: 06/24/18 20:53 Dose: 30 units Insulin Human Lispro (Humalog Kwikpen (Bkc)) 0 unit SC ACHS [facility]; Protocol Last Admin: 06/25/18 08:02 Dose: Not Given Insulin Human Lispro (Humalog Kwikpen (Bkc)) 10 unit SC BID@1200,1700 [facility] Last Admin: 06/24/18 16:55 Dose: 10 u Insulin Human Lispro (Humalog Kwikpen (Bkc)) 8 unit SC DAILY@0700 [facility] Last Admin: 06/25/18 08:06 Dose: Not Given Magnesium Hydroxide (Milk Of Magnesia) 30 ml PO .PRN X 1 PRN PRN Reason: Constipation Montelukast Sodium (Singulair) 10 mg PO QHS [facility] Last Admin: 06/24/18 20:49 Dose: 10 mg Multivitamins/Minerals (Multivitamin With Minerals) 1 tablet PO DAILY@0800 [facility] Last Admin: 06/25/18 08:09 Dose: 1 tablet Mupirocin (Bactroban) 1 applic TOPICAL BID [facility]; Protocol Last Admin: 06/25/18 08:07 Dose: 1 applicatio Ondansetron HCl (Zofran Odt) 4 mg PO Q8H PRN PRN PRN Reason: NAUSEA Last Admin: 06/25/18 05:51 Dose: 4 mg Oxycodone HCl (Oxyir) 5 mg PO Q6H PRN PRN PRN Reason: SEVERE PAIN (6-10/10) Last Admin: 06/23/18 08:45 Dose: 5 mg Pantoprazole Sodium (Protonix) 20 mg PO DAILY [facility] Last Admin: 06/25/18 08:09 Dose: 20 mg Senna/Docusate Sodium (Senokot-S, Leti-Colace) 2 tablet PO BID [facility] Last Admin: 06/25/18 08:09 Dose: 1 tablet Sertraline HCl (Zoloft) 100 mg PO DAILY [facility] Last Admin: 06/25/18 08:09 Dose: 100 mg Sodium Chloride () 5 - 15 ml IV UD PRN PRN Reason: SALINE FLUSH Last Admin: 06/22/18 21:43 Dose: 10 ml Sodium Chloride () 5 - 15 ml IV UD PRN PRN Reason: SALINE FLUSH Medical Necessity - Tobacco Use Smoking Status: Never smoker Tobacco Use: Non-smoker Assessment/Plan All Active Problems Debility (Acute) Debility 2/2 rapidly progressive loss of function and LE weakness, complicated by DM II, Chronic Renal failure stage IV and obesity. Goal of rehab is restorationism of functional independence. Plan: - Physical therapy for gait and balance - Occupational Therapy for ADLs - As needed analgesics - Bowel protocol - DVT prophylaxis: SCDs, ASA, Lovenox - DM type II - A1c 7.1 on admission, blood sugars ACHS, Moderate sliding scale, Lantus 30 units BID - Renal failure stage IV (Chronic) -Check BMP in 3 days, on d/c follow up appointment with Dr. Payan for Fistula placement - Hx Osteoarthritis - no tx at this time - Hx of HLD - continue home dose of Lipitor - Hx of Hypertension - well controlled and stable on current medication of Norvasc, and Atenolol - Obesity - BMI is 44.7, encourage weight loss, consult nutrition - Fall risk - EMG of b/l lower extremity - MRI brain - Lumbar puncture - CIDP - Solumedrol 1G daily x 5 days then switch to prednisone 60mg
--- NOTE | 2018-06-25 10:59 | PN.NEURO_ITS ---
Subjective: Staffed in team meeting. No family at bedside, questions answered. With Physical therapy, she is moderate assistance for getting in and out of the bed. She uses the sliding board at moderate assist of two people for transfers. She use the wheel chair for mobility without any issues. She is able to stand for 15 seconds with the aid of two persons assist. With Occupational therapy, she is moderate assist for bathing, she is able to do her on personal grooming at set up while seated. She is a total assist for dressing and washing her lower body, she is proficient at using the adaptive equipment. With Nursing her vital signs are stable along with her Blood sugars. She expressed some anxiety over the weekend and was started on BuSpar by the Hospitalist, she is tolerating the medication well. Will re-team her again on Sunday 07/02 of next week. - Physical Exam General: Alert, Oriented x3, Cooperative HEENT: Atraumatic, PERRLA, EOMI, Normocephalic Neck: Supple, No JVD, Negative Carotid Bruits Lungs: Clear to auscultation, Normal air movement Cardiovascular: Regular rate, No murmurs Abdomen: Bowel Sounds Present, Soft, Non Tender Extremities: No edema, Capillary Refill Less than 3 Seconds Skin: No rashes, No breakdown Musculoskeletal: No Tenderness to Palpation of Joints or Extremities Neurological: Cranial nerves II-XII grossly intact Psych/Mental Status: Normal Affect, Appropriate, Alert and oriented to time, place, person, mood and affect Vital Signs Temp Pulse Resp BP Pulse Ox 98.2 F 58 L 18 157/77 H 97 06/25/18 07:00 06/25/18 07:00 06/25/18 07:00 06/25/18 07:00 06/25/18 07:00 Oxygen Delivery Method Room Air Weight: 110.9 kg Body Mass Index (BMI) 44.7 Intake and Output for Last 24 Hours 06/23/18 06/24/18 06/25/18 23:59 23:59 23:59 Intake Total 960 / 960 560 / 560 600 / 600 Output Total 450 / 450 650 / 650 100 / 100 Balance 510 / 510 -90 / -90 500 / 500 Microbiology Past 72 Hours 06/22/18 11:03 Gram Stain - Final Csf, Spinal Fluid CSF Culture - Final No growth in 72 hours. POC Glucose 06/25/18 06/24/18 06/24/18 06:39 20:50 16:47 POC Glucose 101 180 H 132 H 06/24/18 12:00 POC Glucose 135 H Active Medications Acetaminophen (Tylenol) 650 mg PO Q8H PRN PRN PRN Reason: PAIN Last Admin: 06/23/18 20:10 Dose: 650 mg Amlodipine Besylate (Norvasc) 10 mg PO DAILY [facility] Last Admin: 06/25/18 08:09 Dose: 10 mg Atenolol (Tenormin (Beta Shannon)) 100 mg PO DAILY [facility] Last Admin: 06/25/18 08:09 Dose: 100 mg Atorvastatin Calcium (Lipitor) 20 mg PO QHS [facility] Last Admin: 06/24/18 20:49 Dose: 20 mg Bisacodyl (Dulcolax) 10 mg RECTAL .PRN X 1 PRN PRN Reason: Constipation Buspirone HCl (Buspar) 5 mg PO TID [facility] Last Admin: 06/25/18 05:14 Dose: 5 mg Calcium Carbonate (Os-Chinedu 500) 500 mg PO BIDCM [facility] Last Admin: 06/25/18 08:09 Dose: 500 mg Fenofibrate (Tricor) 145 mg PO DAILY [facility] Last Admin: 06/25/18 08:09 Dose: 145 mg Gabapentin (Neurontin) 300 mg PO QHS [facility] Last Admin: 06/24/18 20:49 Dose: 300 mg Heparin Sodium (Porcine) (Heparin Na) 5,000 unit SC Q12 [facility] Last Admin: 06/25/18 08:07 Dose: 5,000 unit Hydralazine HCl (Apresoline) 50 mg PO TID [facility] Last Admin: 06/25/18 05:14 Dose: 50 mg Methylprednisolone 1,000 mg/ (Sodium Chloride) 116 mls @ 100 mls/hr IV DAILY [facility] Stop: 06/25/18 11:10 Last Admin: 06/24/18 09:36 Dose: 100 mls/hr Insulin Glargine (Lantus (Bkc)) 30 units SC BID [facility] Last Admin: 06/24/18 20:53 Dose: 30 units Insulin Human Lispro (Humalog Kwikpen (Bkc)) 0 unit SC ACHS [facility]; Protocol Last Admin: 06/25/18 08:02 Dose: Not Given Insulin Human Lispro (Humalog Kwikpen (Bkc)) 10 unit SC BID@1200,1700 [facility] Last Admin: 06/24/18 16:55 Dose: 10 u Insulin Human Lispro (Humalog Kwikpen (Bkc)) 8 unit SC DAILY@0700 [facility] Last Admin: 06/25/18 08:06 Dose: Not Given Magnesium Hydroxide (Milk Of Magnesia) 30 ml PO .PRN X 1 PRN PRN Reason: Constipation Montelukast Sodium (Singulair) 10 mg PO QHS [facility] Last Admin: 06/24/18 20:49 Dose: 10 mg Multivitamins/Minerals (Multivitamin With Minerals) 1 tablet PO DAILY@0800 [facility] Last Admin: 06/25/18 08:09 Dose: 1 tablet Mupirocin (Bactroban) 1 applic TOPICAL BID [facility]; Protocol Last Admin: 06/25/18 08:07 Dose: 1 applicatio Ondansetron HCl (Zofran Odt) 4 mg PO Q8H PRN PRN PRN Reason: NAUSEA Last Admin: 06/25/18 05:51 Dose: 4 mg Oxycodone HCl (Oxyir) 5 mg PO Q6H PRN PRN PRN Reason: SEVERE PAIN (6-10/10) Last Admin: 06/23/18 08:45 Dose: 5 mg Pantoprazole Sodium (Protonix) 20 mg PO DAILY [facility] Last Admin: 06/25/18 08:09 Dose: 20 mg Senna/Docusate Sodium (Senokot-S, Leti-Colace) 2 tablet PO BID [facility] Last Admin: 06/25/18 08:09 Dose: 1 tablet Sertraline HCl (Zoloft) 100 mg PO DAILY [facility] Last Admin: 06/25/18 08:09 Dose: 100 mg Sodium Chloride () 5 - 15 ml IV UD PRN PRN Reason: SALINE FLUSH Last Admin: 06/22/18 21:43 Dose: 10 ml Sodium Chloride () 5 - 15 ml IV UD PRN PRN Reason: SALINE FLUSH Medical Necessity - Tobacco Use Smoking Status: Never smoker Tobacco Use: Non-smoker Assessment/Plan All Active Problems Debility (Acute) Debility 2/2 rapidly progressive loss of function and LE weakness, complicated by DM II, Chronic Renal failure stage IV and obesity. Goal of rehab is evangelical of functional independence. Plan: - Physical therapy for gait and balance - Occupational Therapy for ADLs - As needed analgesics - Bowel protocol - DVT prophylaxis: SCDs, ASA, Lovenox - DM type II - A1c 7.1 on admission, blood sugars ACHS, Moderate sliding scale, Lantus 30 units BID - Renal failure stage IV (Chronic) -Check BMP in 3 days, on d/c follow up appointment with Dr. Payan for Fistula placement - Hx Osteoarthritis - no tx at this time - Hx of HLD - continue home dose of Lipitor - Hx of Hypertension - well controlled and stable on current medication of Norvasc, and Atenolol - Obesity - BMI is 44.7, encourage weight loss, consult nutrition - Fall risk - EMG of b/l lower extremity - MRI brain - Lumbar puncture - CIDP - Solumedrol 1G daily x 5 days then switch to prednisone 60mg
[2018-06-25 11:23] LABS: Pathologist Review Reviewed
--- NOTE | 2018-06-25 11:34 | NURSING ---
Pt still had some nausea this AM. BS-101. Scheduled humalog held d/t BS and pt only consuming 25% of breakfast. PT BS lunchtime-90. Scheduled Humalog insulin held. RN made aware.
[2018-06-25 11:46] LABS: Bedside Glucose 90 mg/dL (70-110)
--- NOTE | 2018-06-25 12:07 | CASEMGMT ---
Team meeting held. Patient present, no support person present as this time. Patient reporting to be planning to contact patient family on own with team meeting update. Patient plans to discharge to home with family at time of discharge. Patient reporting to have a wheelchair but to need a sliding board at time of discharge, if patient is still doing sliding board transfers. Patient does have an insurance update due on 06/27/18 and aware that continued stay approval is not guaranteed. Patient to continue with further care and treatment on the Inpatient Rehab Unit at this time. Support given. Will continue to follow. BERNARD Bowser, [employer]
[2018-06-25 13:54] VITALS: PULSE 60
[2018-06-25 14:06] LABS: Cryptococcus Antigen CSF Negative (Negative)
--- NOTE | 2018-06-25 14:55 | NURSING ---
IV to left wrist D/C'd at this time. Catheter intact. Pt tolerated well.
[2018-06-25 16:23] LABS: Lyme Scn Total Ab w/Rflx <0.91 ISR (0.00-0.90); West Nile Virus, IgG Negative (Negative); West Nile Virus, IgM Negative (Negative)
[2018-06-25 16:26] LABS: Bedside Glucose 161 mg/dL (70-110)
[2018-06-25] MEDS: Insulin Lispro 100 UNIT/ML INSULN.PEN SC (17:28)
[2018-06-25] MEDS: Insulin Lispro 100 UNIT/ML INSULN.PEN 10 UNIT SC (17:29)
[2018-06-25 21:00] VITALS: PULSE 63; RESP 18; O2SAT 94
[2018-06-25 21:30] VITALS: BP 160/84; PULSE 63; RESP 18; TEMP 36.8; O2SAT 94
[2018-06-25 21:42] VITALS: BP 160/84; PULSE 63
[2018-06-25] MEDS: Atorvastatin Calcium 20 MG Tablet PO (21:42)
[2018-06-25] MEDS: Montelukast 10 MG Tablet PO (21:43)
[2018-06-25] MEDS: Gabapentin 300 MG Capsule PO (21:43)
[2018-06-25 22:01] LABS: Bedside Glucose 123 mg/dL (70-110)
--- NOTE | 2018-06-26 02:43 | NURSING ---
Reviewed and agree with [employer] documentation and [facility] charting
[2018-06-26 07:00] VITALS: PULSE 57
[2018-06-26] MEDS: Ondansetron ODT 4 MG Tablet PO (07:00)
[2018-06-26] MEDS: hydrALAZINE 50 MG Tablet PO ×3 (07:00→21:03)
[2018-06-26] MEDS: busPIRone 5 MG Tablet PO ×3 (07:01→20:59)
[2018-06-26 07:51] LABS: Bedside Glucose 79 mg/dL (70-110)
[2018-06-26 08:37] VITALS: BP 158/79; PULSE 59; RESP 18; TEMP 36.9; O2SAT 98
[2018-06-26] MEDS: Calcium (Elemental) 500 MG Tablet PO ×2 (08:37→17:03)
[2018-06-26] MEDS: Fenofibrate 145 MG Tablet PO (08:37)
[2018-06-26] MEDS: Sertraline 100 MG Tablet PO (08:38)
[2018-06-26] MEDS: Multivitamins,Ther W-Minerals Tablet 1 TABLET PO (08:38)
[2018-06-26] MEDS: Atenolol 100 MG Tablet PO (08:39)
[2018-06-26] MEDS: Senna/Docusate Sodium 1 Tablet 2 TABLET PO ×2 (08:39→20:59)
[2018-06-26] MEDS: amLODIPine 10 MG Tablet PO (08:45)
[2018-06-26] MEDS: Insulin Lispro 100 UNIT/ML INSULN.PEN 10 UNIT SC (08:52)
[2018-06-26] MEDS: Pantoprazole Sodium 20 MG Tablet PO (08:53)
[2018-06-26] MEDS: Insulin Lispro 100 UNIT/ML INSULN.PEN 8 UNIT SC (08:55)
[2018-06-26 09:02] VITALS: PULSE 80
[2018-06-26 09:05] LABS: Bedside Glucose 156 mg/dL (70-110)
[2018-06-26] MEDS: Mupirocin Ointment 22gm Tube 1 APPLIC TOPICAL ×2 (09:12→21:08)
[2018-06-26] MEDS: Heparin Injection (Vial) 5,000 UNIT/ML VIAL 5000 UNIT SC ×2 (09:14→20:59)
[2018-06-26 10:45] LABS: Bedside Glucose 155 mg/dL (70-110)
[2018-06-26] MEDS: Insulin Lispro 100 UNIT/ML INSULN.PEN SC (11:16)
[2018-06-26 14:25] VITALS: PULSE 68
[2018-06-26] MEDS: Bisacodyl 10 MG Suppository RECTAL (14:29)
[2018-06-26 16:05] LABS: Bedside Glucose 84 mg/dL (70-110)
[2018-06-26 16:05] LABS: Bedside Glucose 69 mg/dL (70-110)
[2018-06-26 18:45] VITALS: BP 128/61; PULSE 56; RESP 16; TEMP 36.6; O2SAT 97
[2018-06-26] MEDS: Atorvastatin Calcium 20 MG Tablet PO (20:57)
[2018-06-26] MEDS: Montelukast 10 MG Tablet PO (20:57)
[2018-06-26] MEDS: Gabapentin 300 MG Capsule PO (20:59)
[2018-06-26 21:03] VITALS: BP 128/61; PULSE 54
[2018-06-26 22:23] LABS: Bedside Glucose 70 mg/dL (70-110)
--- NOTE | 2018-06-26 23:52 | NURSING ---
2329 PT CALLS TO REQUEST BGT STATING SHE FEELS LOW. 2330 BGT INDICATES GLUCOSE LEVEL OF 29 2331 SODA AND JUICE PROVIDED. LAB NOTIFIED OF STAT DRAW FOR CONFIRMATION 2352 LAB CALLED AGAIN TO REQUEST GLUCOSE CONFIRMATION 235 PT RETESTSED BGT RESULT IS 59. ADDITIONAL SNACK PROVIDED. 0008 LAB IN TO DRAW CONFIRMATION 0014 BGT RESULT 78. PT STATES SYMPTOMS ARE DECREASING. 0028 BGT RESULT 93. STATES SYMTPOMS CONTINUE TO IMPROVE. 0030 DR SANCHEZ NOTIFIED. NEW ORDERS ENTERED.
[2018-06-27 00:34] LABS: Bedside Glucose 29 mg/dL (70-110)
[2018-06-27 00:34] LABS: Bedside Glucose 59 mg/dL (70-110)
[2018-06-27 00:50] LABS: Glucose 91 mg/dL (74-106)
--- NOTE | 2018-06-27 01:40 | NURSING ---
PT FOUND TO BE TEARFUL IN ROOM C/O PAIN. STATES SHE'S OVERWHELMED BY THIS NEW DIAGNOSIS. STATES SHE DOESN'T UNDERSTAND HOW 'IT COULD HAPPEN SO FAST'. SHE WANTS TO KNOW WHY SHE 'GOT THIS DISEASE'. PT ENC TO LISTEN TO MUSIC. USE MEDITATION TECHNIQUES, FOCUS ON THE POSITIVE ASPECTS OF HER LIFE AND TAKE ONE DAY AT A TIME. PT RECEPTIVE OF EMOTIONAL SUPPORT.
[2018-06-27 01:46] LABS: Bedside Glucose 115 mg/dL (70-110)
[2018-06-27] MEDS: oxyCODONE 5 MG Tablet PO (01:47)
[2018-06-27 03:56] LABS: Bedside Glucose 74 mg/dL (70-110)
--- NOTE | 2018-06-27 04:00 | NURSING ---
BGT IS 74. ENSURE DRINK AND APPLESAUCE PROVIDED. WILL CONTINUE TO MONITOR.
[2018-06-27 05:45] VITALS: BP 148/73; PULSE 62
[2018-06-27] MEDS: hydrALAZINE 50 MG Tablet PO ×3 (05:45→21:39)
[2018-06-27] MEDS: Acetaminophen 325 MG Tablet 650 MG PO (05:46)
[2018-06-27] MEDS: Ondansetron ODT 4 MG Tablet PO (05:46)
[2018-06-27] MEDS: busPIRone 5 MG Tablet PO ×3 (05:46→21:39)
--- NOTE | 2018-06-27 05:51 | NURSING ---
PT AWOKEN FOR AM MEDS. C/O NAUSEA AND GENERALIZED PAIN. C/O ABD DISCOMFROT
--- NOTE | 2018-06-27 05:52 | NURSING ---
PT AWOKEN FOR AM MEDS. PT C/O ABD DISCOMFORT, GENERALIZED PAIN AND NAUSEA. TYLENOL AND ZOFRAN GIVEN. REMAINS TEARFUL. BOWEL ASSISTANCE OFFERED AND REFUSED AT THIS TIME. DISCUSSED ANXIETY, STRESS MANAGEMENT AND ITS IMPORTANCE FOR CHRONIC PAIN. WILL CONTINUE TO MONITOR.
[2018-06-27 05:56] LABS: Bedside Glucose 132 mg/dL (70-110)
[2018-06-27 07:00] VITALS: BP 148/72; PULSE 56; RESP 16; TEMP 36.7; O2SAT 96
[2018-06-27 07:25] LABS: Bedside Glucose 78 mg/dL (70-110)
[2018-06-27 07:25] LABS: Bedside Glucose 93 mg/dL (70-110)
[2018-06-27 07:31] LABS: Bedside Glucose 82 mg/dL (70-110)
--- NOTE | 2018-06-27 09:00 | NURSING ---
BS 49 and asymptomatic except hands shaking noted by nursing. Given 4 oz apple juice and set up for breakfast at this time because patient refused earlier when breakfast was here due to nausea. Patient pleasant. Will monitor.
[2018-06-27 09:11] LABS: Bedside Glucose 47 mg/dL (70-110)
--- NOTE | 2018-06-27 09:20 | NURSING ---
BS still under 70 and patient given toast, no more shaking noted, patient pleasant and voices no complaints.
[2018-06-27 09:26] LABS: Bedside Glucose 56 mg/dL (70-110)
[2018-06-27 09:45] LABS: Bedside Glucose 84 mg/dL (70-110)
[2018-06-27] MEDS: Hydrocortisone 25 MG Suppository RECTAL (10:15)
--- NOTE | 2018-06-27 10:17 | NEURO ---
NCS and/or EMG Patient Report Ordering Doctor: Mony Boyer DATE OF SERVICE: 06/21/18 Introduction this is a bilateral lower extremity nerve conduction study performed on this 58-year-old female with bilateral leg weakness and pain for several months. There is a history of diabetes however for the past several months her hemoglobin A1c has been well controlled at approximately 7. There is also a history of kidney disease, hyperlipidemia, hypertension. Bilateral lower extremity sensory and motor nerve conduction studies were performed along with H reflex and F-wave latencies. The superficial peroneal sensory response bilaterally was not obtainable. The right common peroneal motor and tibial motor responses were not obtainable. The left tibial and common peroneal motor responses demonstrated severe prolongation of latencies with reduction of amplitude and severe slowing of conduction velocities. The tibial and common peroneal F-wave latencies on the left are not obtainable in the bilateral tibial H reflex responses were not obtainable. Impression: This is an abnormal nerve conduction study of the bilateral lower extremities consistent with severe polyneuropathy. There are asymmetric features, potential causes could include CIDP or rheumatologic/vasculitic processes. His results were relayed to the ordering physician on 06/21/18.
[2018-06-27] MEDS: Senna/Docusate Sodium 1 Tablet 2 TABLET PO ×2 (10:28→21:39)
[2018-06-27] MEDS: Calcium (Elemental) 500 MG Tablet PO ×2 (10:28→17:06)
[2018-06-27] MEDS: Pantoprazole Sodium 20 MG Tablet PO (10:28)
[2018-06-27] MEDS: Mupirocin Ointment 22gm Tube 1 APPLIC TOPICAL (10:29)
[2018-06-27] MEDS: Sertraline 100 MG Tablet PO (10:29)
[2018-06-27] MEDS: Atenolol 100 MG Tablet PO (10:29)
[2018-06-27] MEDS: Fenofibrate 145 MG Tablet PO (10:29)
[2018-06-27] MEDS: Multivitamins,Ther W-Minerals Tablet 1 TABLET PO (10:29)
[2018-06-27] MEDS: Heparin Injection (Vial) 5,000 UNIT/ML VIAL 5000 UNIT SC ×2 (10:29→21:39)
[2018-06-27 10:50] LABS: Bedside Glucose 99 mg/dL (70-110)
[2018-06-27] MEDS: predniSONE 20 MG Tablet 60 MG PO (11:54)
[2018-06-27] MEDS: amLODIPine 10 MG Tablet PO (11:54)
--- NOTE | 2018-06-27 12:56 | PCM.PN.NEU ---
Subjective: Patient seen and examined. Blood sugar this morning drop to 68, was given juice and toast and recheck indicated levels returned to the 8o's. She is tolerating therapy. She has completed her Solumedrol IV will start prednisone 60 mg today. No issues with GI/. - Physical Exam General: Alert, Oriented x3, Cooperative HEENT: Atraumatic, PERRLA, EOMI, Normocephalic Neck: Supple, No JVD, Negative Carotid Bruits Lungs: Clear to auscultation, Normal air movement Cardiovascular: Regular rate, No murmurs Abdomen: Bowel Sounds Present, Soft, Non Tender Extremities: No edema, Capillary Refill Less than 3 Seconds Skin: No rashes, No breakdown Musculoskeletal: No Tenderness to Palpation of Joints or Extremities Neurological: Cranial nerves II-XII grossly intact Psych/Mental Status: Normal Affect, Appropriate, Alert and oriented to time, place, person, mood and affect Vital Signs Temp Pulse Resp BP Pulse Ox 98.1 F 56 L 16 148/72 H 96 06/27/18 07:00 06/27/18 07:00 06/27/18 07:00 06/27/18 07:00 06/27/18 07:00 Oxygen Delivery Method Room Air Weight: 110.9 kg Body Mass Index (BMI) 44.7 Intake and Output for Last 24 Hours 06/25/18 06/26/18 06/27/18 23:59 23:59 23:59 Intake Total 3310 / 3310 700 / 700 1979 / 1979 Output Total 100 / 100 350 / 350 1100 / 1100 Balance 3210 / 3210 350 / 350 880 / 880 Microbiology Past 72 Hours 06/22/18 11:03 Gram Stain - Final Csf, Spinal Fluid CSF Culture - Final No growth in 72 hours. Laboratory Tests Past 24 Hrs 06/27/18 00:25 Glucose 91 POC Glucose 06/27/18 06/27/18 06/27/18 10:39 09:38 09: POC Glucose 99 84 56 L 06/27/18 06/27/18 06/27/18 09:02 07:09 05:45 POC Glucose 47 L 82 132 H 06/27/18 06/27/18 06/27/18 03:47 01:41 00:28 POC Glucose 74 115 H 93 06/27/18 06/26/18 06/26/18 00:14 23:57 23:32 POC Glucose 78 59 L 29 L* 06/26/18 06/26/18 06/26/18 20:50 16:01 15:43 POC Glucose 70 84 69 L Active Medications Acetaminophen (Tylenol) 650 mg PO Q8H PRN PRN PRN Reason: PAIN Last Admin: 06/27/18 05:46 Dose: 650 mg Amlodipine Besylate (Norvasc) 10 mg PO DAILY REPLACED BY [facility] Last Admin: 06/27/18 11:54 Dose: 10 mg Atenolol (Tenormin (Beta Shannon)) 100 mg PO DAILY REPLACED BY [facility] Last Admin: 06/27/18 10:29 Dose: 100 mg Atorvastatin Calcium (Lipitor) 20 mg PO QHS REPLACED BY [facility] Last Admin: 06/26/18 20:57 Dose: 20 mg Bisacodyl (Dulcolax) 10 mg RECTAL .PRN X 1 PRN PRN Reason: Constipation Last Admin: 06/26/18 14:29 Dose: 10 mg Buspirone HCl (Buspar) 5 mg PO TID REPLACED BY [facility] Last Admin: 06/27/18 05:46 Dose: 5 mg [facility] Carbon[facility] ([facility]inedu [facility]) [facility] Last Admin: 06/27/18 10:28 Dose: 500 mg Fenofibrate (Tricor) 145 mg PO DAILY REPLACED BY [facility] Last Admin: 06/27/18 10:29 Dose: 145 mg Gabapentin (Neurontin) 300 mg PO QHS REPLACED BY [facility] Last Admin: 06/26/18 20:59 Dose: 300 mg Heparin Sodium (Porcine) (Heparin Na) 5,000 unit SC Q12 REPLACED BY [facility] Last Admin: 06/27/18 10:29 Dose: 5,000 unit Hydralazine HCl (Apresoline) 50 mg PO TID REPLACED BY [facility] Last Admin: 06/27/18 05:45 Dose: 50 mg Hydrocortisone Acetate (Anusol Hc) 25 mg RECTAL BID PRN PRN PRN Reason: Hemorrhoids Last Admin: 06/27/18 10:15 Dose: 25 mg Insulin Glargine (Lantus (Bkc)) 20 units SC BID REPLACED BY [facility] Insulin Human Lispro (Humalog Kwikpen (Bkc)) 0 unit SC ACHS REPLACED BY [facility]; Protocol Last Admin: 06/27/18 11:52 Dose: Not Given Insulin Human Lispro (Humalog Kwikpen (Bkc)) 8 unit SC DAILY@0700 REPLACED BY [facility] Last Admin: 06/27/18 07:19 Dose: Not Given Insulin Human Lispro (Humalog Kwikpen (Bkc)) 5 unit SC BID@1200,1700 REPLACED BY [facility] Last Admin: 06/27/18 11:54 Dose: Not Given Magnesium Hydroxide (Milk Of Magnesia) 30 ml PO .PRN X 1 PRN PRN Reason: Constipation Menthol (Bengay Vanishing Scent) 1 applic TOPICAL TID PRN PRN PRN Reason: PAIN Last Admin: 06/27/18 10:32 Dose: 1 applic Montelukast Sodium (Singulair) 10 mg PO QHS REPLACED BY [facility] Last Admin: 06/26/18 20:57 Dose: 10 mg Multivitamins/Minerals (Multivitamin With Minerals) 1 tablet PO DAILY@0800 REPLACED BY [facility] Last Admin: 06/27/18 10:29 Dose: 1 tablet Mupirocin (Bactroban) 1 applic TOPICAL BID REPLACED BY [facility]; Protocol Last Admin: 06/27/18 10:29 Dose: 1 applicatio Ondansetron HCl (Zofran Odt) 4 mg PO Q8H PRN PRN PRN Reason: NAUSEA Last Admin: 06/27/18 05:46 Dose: 4 mg Oxycodone HCl (Oxyir) 5 mg PO Q6H PRN PRN PRN Reason: SEVERE PAIN (6-10/10) Last Admin: 06/27/18 01:47 Dose: 5 mg Pantoprazole Sodium (Protonix) 20 mg PO DAILY REPLACED BY [facility] Last Admin: 06/27/18 10:28 Dose: 20 mg Prednisone () 60 mg PO DAILY@0800 REPLACED BY [facility] Last Admin: 06/27/18 11:54 Dose: 60 mg Senna/Docusate Sodium (Senokot-S, Leti-Colace) 2 tablet PO BID REPLACED BY [facility] Last Admin: 06/27/18 10:28 Dose: 1 tablet Sertraline HCl (Zoloft) 100 mg PO DAILY REPLACED BY [facility] Last Admin: 06/27/18 10:29 Dose: 100 mg Sodium Chloride () 5 - 15 ml IV UD PRN PRN Reason: SALINE FLUSH Last Admin: 06/22/18 21:43 Dose: 10 ml Sodium Chloride () 5 - 15 ml IV UD PRN PRN Reason: SALINE FLUSH Medical Necessity - Tobacco Use Smoking Status: Never smoker Tobacco Use: Non-smoker Assessment/Plan All Active Problems Debility (Acute) Debility 2/2 rapidly progressive loss of function and LE weakness, complicated by DM II, Chronic Renal failure stage IV and obesity. Goal of rehab is caodaism of functional independence. Plan: - Physical therapy for gait and balance - Occupational Therapy for ADLs - As needed analgesics - Bowel protocol - DVT prophylaxis: SCDs, ASA, Lovenox - DM type II - A1c 7.1 on admission, blood sugars ACHS, Moderate sliding scale, Lantus 30 units BID - Renal failure stage IV (Chronic) -Check BMP in 3 days, on d/c follow up appointment with Dr. 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 Lew concerning 24 hour urine results - Obtain serum protein levels
--- NOTE | 2018-06-27 13:01 | PN.NEURO_ITS ---
Addendum entered and electronically signed by MANAV Gomez 06/27/18 17:01: Original Note: Subjective: Patient seen and examined. Blood sugar this morning drop to 68, was given juice and toast and recheck indicated levels returned to the 8o's. She is tolerating therapy. She has completed her Solumedrol IV will start prednisone 60 mg today. No issues with GI/. - Physical Exam General: Alert, Oriented x3, Cooperative HEENT: Atraumatic, PERRLA, EOMI, Normocephalic Neck: Supple, No JVD, Negative Carotid Bruits Lungs: Clear to auscultation, Normal air movement Cardiovascular: Regular rate, No murmurs Abdomen: Bowel Sounds Present, Soft, Non Tender Extremities: No edema, Capillary Refill Less than 3 Seconds Skin: No rashes, No breakdown Musculoskeletal: No Tenderness to Palpation of Joints or Extremities Neurological: Cranial nerves II-XII grossly intact Psych/Mental Status: Normal Affect, Appropriate, Alert and oriented to time, place, person, mood and affect Vital Signs Temp Pulse Resp BP Pulse Ox 98.1 F 56 L 16 148/72 H 96 06/27/18 07:00 06/27/18 07:00 06/27/18 07:00 06/27/18 07:00 06/27/18 07:00 Oxygen Delivery Method Room Air Weight: 110.9 kg Body Mass Index (BMI) 44.7 Intake and Output for Last 24 Hours 06/25/18 06/26/18 06/27/18 23:59 23:59 23:59 Intake Total 3310 / 3310 700 / 700 1979 / 1979 Output Total 100 / 100 350 / 350 1100 / 1100 Balance 3210 / 3210 350 / 350 880 / 880 Microbiology Past 72 Hours 06/22/18 11:03 Gram Stain - Final Csf, Spinal Fluid CSF Culture - Final No growth in 72 hours. Laboratory Tests Past 24 Hrs 06/27/18 00:25 Glucose 91 POC Glucose 06/27/18 06/27/18 06/27/18 10:39 09:38 09:19 POC Glucose 99 84 56 L 06/27/18 06/27/18 06/27/18 09:02 07:09 05:45 POC Glucose 47 L 82 132 H 06/27/18 06/27/18 06/27/18 03:47 01:41 00:28 POC Glucose 74 115 H 93 06/27/18 06/26/18 06/26/18 00:14 23:57 23:32 POC Glucose 78 59 L 29 L* 06/26/18 06/26/18 06/26/18 20:50 16:01 15:43 POC Glucose 70 84 69 L Active Medications Acetaminophen (Tylenol) 650 mg PO Q8H PRN PRN PRN Reason: PAIN Last Admin: 06/27/18 05:46 Dose: 650 mg Amlodipine Besylate (Norvasc) 10 mg PO DAILY [facility] Last Admin: 06/27/18 11:54 Dose: 10 mg Atenolol (Tenormin (Beta Shannon)) 100 mg PO DAILY [facility] Last Admin: 06/27/18 10:29 Dose: 100 mg Atorvastatin Calcium (Lipitor) 20 mg PO QHS [facility] Last Admin: 06/26/18 20:57 Dose: 20 mg Bisacodyl (Dulcolax) 10 mg RECTAL .PRN X 1 PRN PRN Reason: Constipation Last Admin: 06/26/18 14:29 Dose: 10 mg Buspirone HCl (Buspar) 5 mg PO TID [facility] Last Admin: 06/27/18 05:46 Dose: 5 mg Calcium Carbonate (Os-Chinedu 500) 500 mg PO BIDCM [facility] Last Admin: 06/27/18 10:28 Dose: 500 mg Fenofibrate (Tricor) 145 mg PO DAILY [facility] Last Admin: 06/27/18 10:29 Dose: 145 mg Gabapentin (Neurontin) 300 mg PO QHS [facility] Last Admin: 06/26/18 20:59 Dose: 300 mg Heparin Sodium (Porcine) (Heparin Na) 5,000 unit SC Q12 [facility] Last Admin: 06/27/18 10:29 Dose: 5,000 unit Hydralazine HCl (Apresoline) 50 mg PO TID [facility] Last Admin: 06/27/18 05:45 Dose: 50 mg Hydrocortisone Acetate (Anusol Hc) 25 mg RECTAL BID PRN PRN PRN Reason: Hemorrhoids Last Admin: 06/27/18 10:15 Dose: 25 mg Insulin Glargine (Lantus (Bkc)) 20 units SC BID [facility] Insulin Human Lispro (Humalog Kwikpen (Bkc)) 0 unit SC [facility]; Protocol Last Admin: 06/27/18 11:52 Dose: Not Given Insulin Human Lispro (Humalog Kwikpen (Bkc)) 8 unit SC DAILY@0700 [facility] Last Admin: 06/27/18 07:19 Dose: Not Given Insulin Human Lispro (Humalog Kwikpen (Bkc)) 5 unit SC BID@1200,1700 [facility] Last Admin: 06/27/18 11:54 Dose: Not Given Magnesium Hydroxide (Milk Of Magnesia) 30 ml PO .PRN X 1 PRN PRN Reason: Constipation Menthol (Bengay Vanishing Scent) 1 applic TOPICAL TID PRN PRN PRN Reason: PAIN Last Admin: 06/27/18 10:32 Dose: 1 applic Montelukast Sodium (Singulair) 10 mg PO QHS [facility] Last Admin: 06/26/18 20:57 Dose: 10 mg Multivitamins/Minerals (Multivitamin With Minerals) 1 tablet PO DAILY@0800 [facility] Last Admin: 06/27/18 10:29 Dose: 1 tablet Mupirocin (Bactroban) 1 applic TOPICAL BID [facility]; Protocol Last Admin: 06/27/18 10:29 Dose: 1 applicatio Ondansetron HCl (Zofran Odt) 4 mg PO Q8H PRN PRN PRN Reason: NAUSEA Last Admin: 06/27/18 05:46 Dose: 4 mg Oxycodone HCl (Oxyir) 5 mg PO Q6H PRN PRN PRN Reason: SEVERE PAIN (6-10/10) Last Admin: 06/27/18 01:47 Dose: 5 mg Pantoprazole Sodium (Protonix) 20 mg PO DAILY [facility] Last Admin: 06/27/18 10:28 Dose: 20 mg Prednisone () 60 mg PO DAILY@0800 [facility] Last Admin: 06/27/18 11:54 Dose: 60 mg Senna/Docusate Sodium (Senokot-S, Leti-Colace) 2 tablet PO BID [facility] Last Admin: 06/27/18 10:28 Dose: 1 tablet Sertraline HCl (Zoloft) 100 mg PO DAILY [facility] Last Admin: 06/27/18 10:29 Dose: 100 mg Sodium Chloride () 5 - 15 ml IV UD PRN PRN Reason: SALINE FLUSH Last Admin: 06/22/18 21:43 Dose: 10 ml Sodium Chloride () 5 - 15 ml IV UD PRN PRN Reason: SALINE FLUSH Medical Necessity - Tobacco Use Smoking Status: Never smoker Tobacco Use: Non-smoker Assessment/Plan All Active Problems Debility (Acute) Debility 2/2 rapidly progressive loss of function and LE weakness, complicated by DM II, Chronic Renal failure stage IV and obesity. Goal of rehab is restorationism of functional independence. Plan: - Physical therapy for gait and balance - Occupational Therapy for ADLs - As needed analgesics - Bowel protocol - DVT prophylaxis: SCDs, ASA, Lovenox - DM type II - A1c 7.1 on admission, blood sugars ACHS, Moderate sliding scale, Lantus 30 units BID - Renal failure stage IV (Chronic) -Check BMP in 3 days, on d/c follow up appointment with Dr. 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 Lew concerning 24 hour urine results - Obtain serum protein levels
[2018-06-27 13:26] LABS: Bedside Glucose 158 mg/dL (70-110)
--- NOTE | 2018-06-27 13:52 | CASEMGMT ---
Insurance Clinical information sent. Pending continued stay approval at this time. 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
[2018-06-27 15:23] VITALS: BP 159/79; PULSE 62
[2018-06-27 17:20] LABS: Bedside Glucose 146 mg/dL (70-110)
[2018-06-27] MEDS: Collagenase 30gm Tube 1 APPLIC TOPICAL (18:32)
[2018-06-27] MEDS: Insulin Lispro 100 UNIT/ML INSULN.PEN SC ×2 (18:32→21:40)
[2018-06-27 19:39] VITALS: BP 138/67; PULSE 62; RESP 18; TEMP 36.8; O2SAT 95
[2018-06-27 21:21] LABS: Bedside Glucose 199 mg/dL (70-110)
[2018-06-27 21:39] VITALS: PULSE 62
[2018-06-27] MEDS: Gabapentin 300 MG Capsule PO (21:39)
[2018-06-27] MEDS: Montelukast 10 MG Tablet PO (21:39)
[2018-06-27] MEDS: Atorvastatin Calcium 20 MG Tablet PO (21:39)
[2018-06-28 01:46] LABS: Bedside Glucose 204 mg/dL (70-110)
[2018-06-28 03:16] LABS: Bedside Glucose 196 mg/dL (70-110)
[2018-06-28 05:39] VITALS: PULSE 69
[2018-06-28] MEDS: hydrALAZINE 50 MG Tablet PO ×3 (05:39→23:40)
[2018-06-28] MEDS: busPIRone 5 MG Tablet PO ×3 (05:47→23:40)
[2018-06-28 06:36] LABS: Bedside Glucose 148 mg/dL (70-110)
[2018-06-28 07:53] VITALS: BP 177/79; PULSE 55; RESP 16; TEMP 36.6; O2SAT 98
[2018-06-28] MEDS: Sertraline 100 MG Tablet PO (08:49)
[2018-06-28] MEDS: Fenofibrate 145 MG Tablet PO (08:49)
[2018-06-28] MEDS: Calcium (Elemental) 500 MG Tablet PO ×2 (08:49→18:14)
[2018-06-28] MEDS: predniSONE 20 MG Tablet 60 MG PO (08:49)
[2018-06-28] MEDS: Atenolol 100 MG Tablet PO (08:50)
[2018-06-28] MEDS: Insulin Lispro 100 UNIT/ML INSULN.PEN SC ×6 (08:50→23:39)
[2018-06-28] MEDS: Multivitamins,Ther W-Minerals Tablet 1 TABLET PO (08:50)
[2018-06-28] MEDS: Pantoprazole Sodium 20 MG Tablet PO (08:50)
[2018-06-28] MEDS: Senna/Docusate Sodium 1 Tablet 2 TABLET PO ×2 (08:50→11:22)
[2018-06-28] MEDS: amLODIPine 10 MG Tablet PO (08:50)
[2018-06-28] MEDS: Collagenase 30gm Tube 1 APPLIC TOPICAL (09:02)
[2018-06-28] MEDS: Heparin Injection (Vial) 5,000 UNIT/ML VIAL 5000 UNIT SC ×2 (09:02→23:39)
[2018-06-28 09:12] VITALS: BP 159/76; PULSE 64
[2018-06-28 11:26] LABS: Albumin, Serum 2.3 g/dL (3.2-5.0); BUN 100 mg/dL (7-18); BUN/Creat Ratio 35.1 RATIO (10-20); Calcium,Total 8.3 mg/dL (8.5-10.1); Chloride 107 mmol/L (98-107); Creatinine, Serum 2.85 mg/dL (0.55-1.02); EST Glomerular Filtration Rate 18 mL/min (>60); Est Glom Filt Rate - Afr Amer 22 mL/min (>60); Estimated Creatinine Clearance 17.43 ml/min; Glucose 164 mg/dL (74-106); Phosphorus 4.1 mg/dL (2.5-4.9); Potassium 5.4 mmol/L (3.5-5.1); Sodium Level 142 mmol/L (136-145)
[2018-06-28] MEDS: Hydrocortisone 25 MG Suppository RECTAL (11:26)
[2018-06-28 11:50] LABS: Bedside Glucose 152 mg/dL (70-110)
--- NOTE | 2018-06-28 11:59 | PCM.PN.NEU ---
Subjective: Patient seen and examined. No new complaints. She tolerating therapy, was able to stand for 2 and half minutes using the Joseline lift this morning. She is still very weak in her lower extremity. Denies any shortness of breath or chest pains. No issues with GI/. - Physical Exam General: Alert, Oriented x3, Cooperative HEENT: Atraumatic, PERRLA, EOMI, Normocephalic Neck: Supple, No JVD, Negative Carotid Bruits Lungs: Clear to auscultation, Normal air movement Cardiovascular: Regular rate, No murmurs Abdomen: Bowel Sounds Present, Soft, Non Tender Extremities: No edema, Capillary Refill Less than 3 Seconds Skin: No rashes, No breakdown Musculoskeletal: No Tenderness to Palpation of Joints or Extremities Neurological: Cranial nerves II-XII grossly intact Psych/Mental Status: Normal Affect, Appropriate, Alert and oriented to time, place, person, mood and affect Vital Signs Temp Pulse Resp BP Pulse Ox 97.9 F 64 16 159/76 H 98 06/28/18 07:53 06/28/18 09:12 06/28/18 07:53 06/28/18 09:12 06/28/18 07:53 Oxygen Delivery Method Room Air Weight: 110.9 kg Body Mass Index (BMI) 44.7 Intake and Output for Last 24 Hours 06/26/18 06/27/18 06/28/18 23:59 23:59 23:59 Intake Total 700 / 700 2220 / 2220 240 / 240 Output Total 350 / 350 1100 / 1100 Balance 350 / 350 1120 / 1120 240 / 240 Microbiology Past 72 Hours 06/22/18 11:03 Gram Stain - Final Csf, Spinal Fluid CSF Culture - Final No growth in 72 hours. Laboratory Tests Past 24 Hrs 06/28/18 06/28/18 05:30 05:30 Sodium 142 Potassium 5.4 H Chloride 107 Carbon Dioxide 24.0 BUN 100 H Creatinine 2.85 H Estim Creat Clear Calc 17.43 Est GFR (MDRD) Af Amer 22 L Est GFR (MDRD) Non-Af 18 L BUN/Creatinine Ratio 35.1 H Glucose 164 H Calcium 8.3 L Phosphorus 4.1 Total Protein (PEP) Pending Albumin 2.3 L IgG Pending IgA Pending IgM Pending Albumin (JOELLE) Pending Albumin/Globulin (JOELLE) Pending Zpanu-[id number] JOELLE Pending Mjiny-[id number] JOELLE Pending Beta-Globulins (JOELLE) Pending Gamma Globulins (JOELLE) Pending JOELLE M-Yuval Pending POC Glucose 06/28/18 06/28/18 06/28/18 11:37 06:19 03:09 POC Glucose 152 H 148 H 196 H 06/28/18 06/27/18 06/27/18 01:39 21:14 17:04 POC Glucose 204 H 199 H 146 H 06/27/18 13:20 POC Glucose 158 H Active Medications Acetaminophen (Tylenol) 650 mg PO Q8H PRN PRN PRN Reason: PAIN Last Admin: 06/27/18 05:46 Dose: 650 mg Amlodipine Besylate (Norvasc) 10 mg PO DAILY [facility] Last Admin: 06/28/18 08:50 Dose: 10 mg Atenolol (Tenormin (Beta Shannon)) 100 mg PO DAILY [facility] Last Admin: 06/28/18 08:50 Dose: 100 mg Atorvastatin Calcium (Lipitor) 20 mg PO QHS [facility] Last Admin: 06/27/18 21:39 Dose: 20 mg Bisacodyl (Dulcolax) 10 mg RECTAL .PRN X 1 PRN PRN Reason: Constipation Last Admin: 06/26/18 14:29 Dose: 10 mg Buspirone HCl (Buspar) 5 mg PO TID [facility] Last Admin: 06/28/18 05:47 Dose: 5 mg Calcium Carbonate (Os-Chinedu 500) 500 mg PO BIDCM [facility] Last Admin: 06/28/18 08:49 Dose: 500 mg Collagenase (Santyl) 1 applic TOPICAL DAILY [facility]; Protocol Last Admin: 06/28/18 09:02 Dose: 1 applicatio Fenofibrate (Tricor) 145 mg PO DAILY [facility] Last Admin: 06/28/18 08:49 Dose: 145 mg Gabapentin (Neurontin) 300 mg PO QHS [facility] Last Admin: 06/27/18 21:39 Dose: 300 mg Heparin Sodium (Porcine) (Heparin Na) 5,000 unit SC Q12 [facility] Last Admin: 06/28/18 09:02 Dose: 5,000 unit Hydralazine HCl (Apresoline) 50 mg PO TID [facility] Last Admin: 06/28/18 05:39 Dose: 50 mg Hydrocortisone Acetate (Anusol Hc) 25 mg RECTAL BID PRN PRN PRN Reason: Hemorrhoids Last Admin: 06/28/18 11:26 Dose: 25 mg Insulin Glargine (Lantus (Bkc)) 20 units SC BID [facility] Last Admin: 06/28/18 08:51 Dose: 20 units Insulin Human Lispro (Humalog Kwikpen (Bkc)) 0 unit SC ACHS [facility]; Protocol Last Admin: 06/28/18 08:46 Dose: Not Given Insulin Human Lispro (Humalog Kwikpen (Bkc)) 5 unit SC BID@1200,1700 [facility] Last Admin: 06/27/18 18:32 Dose: 5 units Insulin Human Lispro (Humalog Kwikpen (Bkc)) 4 unit SC DAILY@0700 [facility] Last Admin: 06/28/18 08:50 Dose: 4 units Magnesium Hydroxide (Milk Of Magnesia) 30 ml PO .PRN X 1 PRN PRN Reason: Constipation Menthol (Bengay Vanishing Scent) 1 applic TOPICAL TID PRN PRN PRN Reason: PAIN Last Admin: 06/27/18 10:32 Dose: 1 applic Montelukast Sodium (Singulair) 10 mg PO QHS [facility] Last Admin: 06/27/18 21:39 Dose: 10 mg Multivitamins/Minerals (Multivitamin With Minerals) 1 tablet PO DAILY@0800 [facility] Last Admin: 06/28/18 08:50 Dose: 1 tablet Ondansetron HCl (Zofran Odt) 4 mg PO Q8H PRN PRN PRN Reason: NAUSEA Last Admin: 06/27/18 05:46 Dose: 4 mg Oxycodone HCl (Oxyir) 5 mg PO Q6H PRN PRN PRN Reason: SEVERE PAIN (6-10/10) Last Admin: 06/27/18 01:47 Dose: 5 mg Pantoprazole Sodium (Protonix) 20 mg PO DAILY [facility] Last Admin: 06/28/18 08:50 Dose: 20 mg Prednisone () 60 mg PO DAILY@0800 [facility] Last Admin: 06/28/18 08:49 Dose: 60 mg Senna/Docusate Sodium (Senokot-S, Leti-Colace) 2 tablet PO BID [facility] Last Admin: 06/28/18 11:22 Dose: 1 tablet Sertraline HCl (Zoloft) 100 mg PO DAILY [facility] Last Admin: 06/28/18 08:49 Dose: 100 mg Sodium Chloride () 5 - 15 ml IV UD PRN PRN Reason: SALINE FLUSH Last Admin: 06/22/18 21:43 Dose: 10 ml Sodium Chloride () 5 - 15 ml IV UD PRN PRN Reason: SALINE FLUSH Medical Necessity - Tobacco Use Smoking Status: Never smoker Tobacco Use: Non-smoker Assessment/Plan All Active Problems Debility (Acute) Debility 2/2 rapidly progressive loss of function and LE weakness, complicated by DM II, Chronic Renal failure stage IV and obesity. Goal of rehab is denominational of functional independence. Plan: - Physical therapy for gait and balance - Occupational Therapy for ADLs - As needed analgesics - Bowel protocol - DVT prophylaxis: SCDs, ASA, Lovenox - DM type II - A1c 7.1 on admission, blood sugars ACHS, Moderate sliding scale, Lantus 30 units BID - Renal failure stage IV (Chronic) -Check BMP in 3 days, on d/c follow up appointment with Dr. 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 Lew concerning 24 hour urine results - Obtain serum protein levels = pending results
--- NOTE | 2018-06-28 12:03 | PN.NEURO_ITS ---
Subjective: Patient seen and examined. No new complaints. She tolerating therapy, was able to stand for 2 and half minutes using the Joseline lift this morning. She is still very weak in her lower extremity. Denies any shortness of breath or chest pains. No issues with GI/. - Physical Exam General: Alert, Oriented x3, Cooperative HEENT: Atraumatic, PERRLA, EOMI, Normocephalic Neck: Supple, No JVD, Negative Carotid Bruits Lungs: Clear to auscultation, Normal air movement Cardiovascular: Regular rate, No murmurs Abdomen: Bowel Sounds Present, Soft, Non Tender Extremities: No edema, Capillary Refill Less than 3 Seconds Skin: No rashes, No breakdown Musculoskeletal: No Tenderness to Palpation of Joints or Extremities Neurological: Cranial nerves II-XII grossly intact Psych/Mental Status: Normal Affect, Appropriate, Alert and oriented to time, place, person, mood and affect Vital Signs Temp Pulse Resp BP Pulse Ox 97.9 F 64 16 159/76 H 98 06/28/18 07:53 06/28/18 09:12 06/28/18 07:53 06/28/18 09:12 06/28/18 07:53 Oxygen Delivery Method Room Air Weight: 110.9 kg Body Mass Index (BMI) 44.7 Intake and Output for Last 24 Hours 06/26/18 06/27/18 06/28/18 23:59 23:59 23:59 Intake Total 700 / 700 2220 / 2220 240 / 240 Output Total 350 / 350 1100 / 1100 Balance 350 / 350 1120 / 1120 240 / 240 Microbiology Past 72 Hours 06/22/18 11:03 Gram Stain - Final Csf, Spinal Fluid CSF Culture - Final No growth in 72 hours. Laboratory Tests Past 24 Hrs 06/28/18 06/28/18 05:30 05:30 Sodium 142 Potassium 5.4 H Chloride 107 Carbon Dioxide 24.0 BUN 100 H Creatinine 2.85 H Estim Creat Clear Calc 17.43 Est GFR (MDRD) Af Amer 22 L Est GFR (MDRD) Non-Af 18 L BUN/Creatinine Ratio 35.1 H Glucose 164 H Calcium 8.3 L Phosphorus 4.1 Total Protein (PEP) Pending Albumin 2.3 L IgG Pending IgA Pending IgM Pending Albumin (JOELLE) Pending Albumin/Globulin (JOELLE) Pending Degie-1-Exldhgqny JOELLE Pending Tfzas-2-Hfzdydyop JOELLE Pending Beta-Globulins (JOELLE) Pending Gamma Globulins (JOELLE) Pending JOELLE M-Yuval Pending POC Glucose 06/28/18 06/28/18 06/28/18 11:37 06:19 03:09 POC Glucose 152 H 148 H 196 H 06/28/18 06/27/18 06/27/18 01:39 21:14 17:04 POC Glucose 204 H 199 H 146 H 06/27/18 13:20 POC Glucose 158 H Active Medications Acetaminophen (Tylenol) 650 mg PO Q8H PRN PRN PRN Reason: PAIN Last Admin: 06/27/18 05:46 Dose: 650 mg Amlodipine Besylate (Norvasc) 10 mg PO DAILY [facility] Last Admin: 06/28/18 08:50 Dose: 10 mg Atenolol (Tenormin (Beta Shannon)) 100 mg PO DAILY [facility] Last Admin: 06/28/18 08:50 Dose: 100 mg Atorvastatin Calcium (Lipitor) 20 mg PO QHS [facility] Last Admin: 06/27/18 21:39 Dose: 20 mg Bisacodyl (Dulcolax) 10 mg RECTAL .PRN X 1 PRN PRN Reason: Constipation Last Admin: 06/26/18 14:29 Dose: 10 mg Buspirone HCl (Buspar) 5 mg PO TID [facility] Last Admin: 06/28/18 05:47 Dose: 5 mg Calcium Carbonate (Os-Chinedu 500) 500 mg PO BIDCM [facility] Last Admin: 06/28/18 08:49 Dose: 500 mg Collagenase (Santyl) 1 applic TOPICAL DAILY [facility]; Protocol Last Admin: 06/28/18 09:02 Dose: 1 applicatio Fenofibrate (Tricor) 145 mg PO DAILY [facility] Last Admin: 06/28/18 08:49 Dose: 145 mg Gabapentin (Neurontin) 300 mg PO QHS [facility] Last Admin: 06/27/18 21:39 Dose: 300 mg Heparin Sodium (Porcine) (Heparin Na) 5,000 unit SC Q12 [facility] Last Admin: 06/28/18 09:02 Dose: 5,000 unit Hydralazine HCl (Apresoline) 50 mg PO TID [facility] Last Admin: 06/28/18 05:39 Dose: 50 mg Hydrocortisone Acetate (Anusol Hc) 25 mg RECTAL BID PRN PRN PRN Reason: Hemorrhoids Last Admin: 06/28/18 11:26 Dose: 25 mg Insulin Glargine (Lantus (Bkc)) 20 units SC BID [facility] Last Admin: 06/28/18 08:51 Dose: 20 units Insulin Human Lispro (Humalog Kwikpen (Bkc)) 0 unit SC ACHS [facility]; Protocol Last Admin: 06/28/18 08:46 Dose: Not Given Insulin Human Lispro (Humalog Kwikpen (Bkc)) 5 unit SC BID@1200,1700 [facility] Last Admin: 06/27/18 18:32 Dose: 5 units Insulin Human Lispro (Humalog Kwikpen (Bkc)) 4 unit SC DAILY@0700 [facility] Last Admin: 06/28/18 08:50 Dose: 4 units Magnesium Hydroxide (Milk Of Magnesia) 30 ml PO .PRN X 1 PRN PRN Reason: Constipation Menthol (Bengay Vanishing Scent) 1 applic TOPICAL TID PRN PRN PRN Reason: PAIN Last Admin: 06/27/18 10:32 Dose: 1 applic Montelukast Sodium (Singulair) 10 mg PO QHS [facility] Last Admin: 06/27/18 21:39 Dose: 10 mg Multivitamins/Minerals (Multivitamin With Minerals) 1 tablet PO DAILY@0800 [facility] Last Admin: 06/28/18 08:50 Dose: 1 tablet Ondansetron HCl (Zofran Odt) 4 mg PO Q8H PRN PRN PRN Reason: NAUSEA Last Admin: 06/27/18 05:46 Dose: 4 mg Oxycodone HCl (Oxyir) 5 mg PO Q6H PRN PRN PRN Reason: SEVERE PAIN (6-10/10) Last Admin: 06/27/18 01:47 Dose: 5 mg Pantoprazole Sodium (Protonix) 20 mg PO DAILY [facility] Last Admin: 06/28/18 08:50 Dose: 20 mg Prednisone () 60 mg PO DAILY@0800 [facility] Last Admin: 06/28/18 08:49 Dose: 60 mg Senna/Docusate Sodium (Senokot-S, Leti-Colace) 2 tablet PO BID [facility] Last Admin: 06/28/18 11:22 Dose: 1 tablet Sertraline HCl (Zoloft) 100 mg PO DAILY [facility] Last Admin: 06/28/18 08:49 Dose: 100 mg Sodium Chloride () 5 - 15 ml IV UD PRN PRN Reason: SALINE FLUSH Last Admin: 06/22/18 21:43 Dose: 10 ml Sodium Chloride () 5 - 15 ml IV UD PRN PRN Reason: SALINE FLUSH Medical Necessity - Tobacco Use Smoking Status: Never smoker Tobacco Use: Non-smoker Assessment/Plan All Active Problems Debility (Acute) Debility 2/2 rapidly progressive loss of function and LE weakness, complicated by DM II, Chronic Renal failure stage IV and obesity. Goal of rehab is restorati on of functional independence. Plan: - Physical therapy for gait and balance - Occupational Therapy for ADLs - As needed analgesics - Bowel protocol - DVT prophylaxis: SCDs, ASA, Lovenox - DM type II - A1c 7.1 on admission, blood sugars ACHS, Moderate sliding scale, Lantus 30 units BID - Renal failure stage IV (Chronic) -Check BMP in 3 days, on d/c follow up appointment with Dr. 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 Lew concerning 24 hour urine results - Obtain serum protein levels = pending results
[2018-06-28 13:52] VITALS: BP 158/77; PULSE 64
--- NOTE | 2018-06-28 14:53 | CON.PCM_ITS ---
Consultation - Renal 06/28/18 PCP/ Referring MD: Requesting physician: [] Primary care physician: Param Razo MD Reason for Consultation:: CKD stage 4, diabetic nephropathy - History of Present Illness History of Present Illness: The patient is a 58 year old F seen on consult in office back in October for nephrotic proteinuria, CKD stage 4 due to diabetes, poorly controlled at the time with hypertension. She was lost to follow up in office until admit to [facility] in May for progressive weakness, debilitation. Creatinine has been 2.5-2.7 eGFR 17cc/min. 24h urine done in May showed 4.4g protein with creatinine clearance of 7cc/min. Total volume was marginal suspicious for inadequate collection. 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 Serologies unremarkable for vasculitis, [place] viraus, lymes disease studies ordered. She had elevated CRP and sed rate. Denies fever, chills. She is unable to transfer and was essentially bedridden which limited her access to health care at home. She is able to move her feet and bend her knee on R>L on prednisone therapy. Her renal fxn remains marginal but without uremic symptoms. Potassium was elevated today from receiving OJ to correct hypoglycemic episode. sugars were low at 20. She is on insulin therapy. Consulted for follow up renal care. We discussed dialysis when CRCL <15cc/min. She is in good spirits and working to get better. - Allergies Allergies: Allergies codeine Allergy (Verified 06/14/18 17:11) Other CONFUSION latex Allergy (Verified 06/14/18 17:11) Hives Sulfa (Sulfonamide Antibiotics) Allergy (Verified 06/14/18 17:11) Rash - Current Medications Current Medications: Current Medications Acetaminophen (Tylenol) 650 mg PO Q8H PRN PRN PRN Reason: PAIN Last Admin: 06/27/18 05:46 Dose: 650 mg Amlodipine Besylate (Norvasc) 10 mg PO DAILY [facility] Last Admin: 06/28/18 08:50 Dose: 10 mg Atenolol (Tenormin (Beta Shannon)) 100 mg PO DAILY [facility] Last Admin: 06/28/18 08:50 Dose: 100 mg Atorvastatin Calcium (Lipitor) 20 mg PO QHS [facility] Last Admin: 06/27/18 21:39 Dose: 20 mg Bisacodyl (Dulcolax) 10 mg RECTAL .PRN X 1 PRN PRN Reason: Constipation Last Admin: 06/26/18 14:29 Dose: 10 mg Buspirone HCl (Buspar) 5 mg PO TID [facility] Last Admin: 06/28/18 13:52 Dose: 5 mg Calcium Carbonate (Os-Chinedu 500) 500 mg PO BIDCM [facility] Last Admin: 06/28/18 08:49 Dose: 500 mg Collagenase (Santyl) 1 applic TOPICAL DAILY [facility]; Protocol Last Admin: 06/28/18 09:02 Dose: 1 applicatio Fenofibrate (Tricor) 145 mg PO DAILY [facility] Last Admin: 06/28/18 08:49 Dose: 145 mg Gabapentin (Neurontin) 300 mg PO QHS [facility] Last Admin: 06/27/18 21:39 Dose: 300 mg Heparin Sodium (Porcine) (Heparin Na) 5,000 unit SC Q12 [facility] Last Admin: 06/28/18 09:02 Dose: 5,000 unit Hydralazine HCl (Apresoline) 50 mg PO TID [facility] Last Admin: 06/28/18 13:52 Dose: 50 mg Hydrocortisone Acetate (Anusol Hc) 25 mg RECTAL BID PRN PRN PRN Reason: Hemorrhoids Last Admin: 06/28/18 11:26 Dose: 25 mg Insulin Glargine (Lantus (Bkc)) 20 units SC BID [facility] Last Admin: 06/28/18 08:51 Dose: 20 units Insulin Human Lispro (Humalog Kwikpen (Bkc)) 0 unit SC ACHS [facility]; Protocol Last Admin: 06/28/18 13:00 Dose: 3 u Insulin Human Lispro (Humalog Kwikpen (Bkc)) 5 unit SC BID@1200,1700 [facility] Last Admin: 06/28/18 13:01 Dose: 5 units Insulin Human Lispro (Humalog Kwikpen (Bkc)) 4 unit SC DAILY@0700 [facility] Last Admin: 06/28/18 08:50 Dose: 4 units Magnesium Hydroxide (Milk Of Magnesia) 30 ml PO .PRN X 1 PRN PRN Reason: Constipation Menthol (Bengay Vanishing Scent) 1 applic TOPICAL TID PRN PRN PRN Reason: PAIN Last Admin: 06/27/18 10:32 Dose: 1 applic Montelukast Sodium (Singulair) 10 mg PO QHS [facility] Last Admin: 06/27/18 21:39 Dose: 10 mg Multivitamins/Minerals (Multivitamin With Minerals) 1 tablet PO DAILY@0800 [facility] Last Admin: 06/28/18 08:50 Dose: 1 tablet Ondansetron HCl (Zofran Odt) 4 mg PO Q8H PRN PRN PRN Reason: NAUSEA Last Admin: 06/27/18 05:46 Dose: 4 mg Oxycodone HCl (Oxyir) 5 mg PO Q6H PRN PRN PRN Reason: SEVERE PAIN (6-03/28) Last Admin: 06/27/18 01:47 Dose: 5 mg Pantoprazole Sodium (Protonix) 20 mg PO DAILY [facility] Last Admin: 06/28/18 08:50 Dose: 20 mg Prednisone () 60 mg PO DAILY@0800 [facility] Last Admin: 06/28/18 08:49 Dose: 60 mg Senna/Docusate Sodium (Senokot-S, Leti-Colace) 2 tablet PO BID [facility] Last Admin: 06/28/18 11:22 Dose: 1 tablet Sertraline HCl (Zoloft) 100 mg PO DAILY [facility] Last Admin: 06/28/18 08:49 Dose: 100 mg Sodium Chloride () 5 - 15 ml IV UD PRN PRN Reason: SALINE FLUSH Last Admin: 06/22/18 21:43 Dose: 10 ml Sodium Chloride () 5 - 15 ml IV UD PRN PRN Reason: SALINE FLUSH - Past Medical History Past Medical History (Chronic Problems): Chronic Problems Hyperlipidemia (Chronic) Chronic kidney disease (Chronic) HTN (hypertension) (Chronic) Obesity (Chronic) DM2 (diabetes mellitus, type 2) (Chronic) - Past Surgical History Surgical History: cholecystectomy, - - Tubal ligation - Social History Smoking Status: Never smoker - Family History Maternal History Items: Cancer, Heart Disease Paternal History Items: Diabetes, Heart Disease, Hypertension Sibling History Items: Diabetes Review of Systems Constitutional: Reports: Weakness. Denies: Anorexia, Chills, Fever, Malaise HEENT: Denies: Head Aches Cardiovascular: Denies: Chest Pain, Edema, Syncope Respiratory: Denies: Cough, Shortness of Breath Gastrointestinal: Denies: Abdominal Pain, Constipation, Nausea, Vomiting Genitourinary: Denies: Dysuria Musculoskeletal: Denies: Back Pain, Joint swelling Skin: Denies: Rash Neurological: Reports: Balance problems, - - gen weakness. Denies: Tremor, Seizures Hematologic/ Lymphatic: Reports: Anemia - Physical Exam General: Alert, Oriented x3, Cooperative, No apparent distress Oral: Dry Mucosa Neck: Supple Lungs: Clear to auscultation Cardiovascular: Regular rate Abdomen: Bowel Sounds Present, Soft, Non Tender, Obese Extremities: No edema Skin: No rashes Musculoskeletal: No Muscle Wasting, - - motor strength 1/5 BLE, able to bend rt knee slightly, moving bilateral feet Neurological: - - gen weakness, decreased motor strength BLE Psych/Mental Status: Normal Affect, Appropriate, Alert and oriented to time, place, person, mood and affect Vital Signs Temp Pulse Resp BP Pulse Ox 97.9 F 64 16 158/77 H 98 06/28/18 07:53 06/28/18 13:52 06/28/18 07:53 06/28/18 13:52 06/28/18 07:53 Oxygen Delivery Method Room Air Weight: 110.9 kg Body Mass Index (BMI) 44.7 Intake and Output for Last 24 Hours 06/26/18 06/27/18 06/28/18 23:59 23:59 23:59 Intake Total 700 / 700 2220 / 2220 680 / 680 Output Total 350 / 350 1100 / 1100 Balance 350 / 350 1120 / 1120 680 / 680 Laboratory Tests Past 24 Hrs 06/28/18 06/28/18 05:30 05:30 Sodium 142 Potassium 5.4 H Chloride 107 Carbon Dioxide 24.0 BUN 100 H Creatinine 2.85 H Estim Creat Clear Calc 17.43 Est GFR (MDRD) Af Amer 22 L Est GFR (MDRD) Non-Af 18 L BUN/Creatinine Ratio 35.1 H Glucose 164 H Calcium 8.3 L Phosphorus 4.1 Total Protein (PEP) Pending Albumin 2.3 L IgG Pending IgA Pending IgM Pending Albumin (JOELLE) Pending Albumin/Globulin (JOELLE) Pending Rqnvf-1-Nkkvszjnx JOELLE Pending Trweh-0-Rjdihjgno JOELLE Pending Beta-Globulins (JOELLE) Pending Gamma Globulins (JOELLE) Pending JOELLE M-Yuval Pending POC Glucose 06/28/18 06/28/18 06/28/18 11:37 06:19 03:09 POC Glucose 152 H 148 H 196 H 06/28/18 06/27/18 06/27/18 01:39 21:14 17:04 POC Glucose 204 H 199 H 146 H Assessment/Plan All Active Problems Debility (Acute) 1. CKD stage 4 due to DM2. Repeat 24h urine CRCL TP. Last 24 urine collection suggest inadequate collection. Creatinine 2.7 eGFR 17cc/min. Currently without uremic symptoms with stable volume status. No urgent need for dialysis but will need to prepare for dialysis in near future with dialysis access once stable from neurologic standpoint. 2. Hyperkalemia avoid OJ, follow low K diet. Kayexalate today. Repeat K level in am. 3. DM2 primary service mgmt. Episode of hypoglycemia. Will need to adjust insulin as needed due to renal failure, low sugars 4. HTN stable 5. debilitation due to CIDP on prednisone neurology following 6. Morbid obesity 7. Anemia check CBC DW nursing staff
[2018-06-28 17:06] LABS: 24HR. UA Prot. Total Volume 2350 mL
[2018-06-28 17:26] LABS: Bedside Glucose 228 mg/dL (70-110)
[2018-06-28 17:30] LABS: Creat.Clear Total Volume 2350 mL; Creatinine Clearance 18 ml/min (100-200); Creatinine Serum Creat 2.9 mg/dL (0.6-1.0); Creatinine Urine 31.2 mg/dL (NO RANGE EST.); EST Glomerular Filtration Rate 18 mL/min (>60); Est Glom Filt Rate - Afr Amer 22 mL/min (>60)
[2018-06-28] MEDS: Sodium Polystyrene Sulfonate 15 GM/60 ML UDC 30 GM PO (18:14)
[2018-06-28] MEDS: Bisacodyl 5 MG Tablet 10 MG PO (18:14)
[2018-06-28 19:51] LABS: Urine Protein (24 Hour) 430.5 mg/dL (<11.9)
[2018-06-28 22:00] VITALS: BP 162/74; PULSE 66; RESP 16; TEMP 36.8; O2SAT 95
[2018-06-28 23:15] LABS: Bedside Glucose 239 mg/dL (70-110)
[2018-06-28] MEDS: Gabapentin 300 MG Capsule PO (23:37)
[2018-06-28] MEDS: Montelukast 10 MG Tablet PO (23:37)
[2018-06-28] MEDS: Atorvastatin Calcium 20 MG Tablet PO (23:37)
[2018-06-28 23:40] VITALS: BP 162/74; PULSE 66
[2018-06-29 04:16] LABS: Bedside Glucose 164 mg/dL (70-110)
[2018-06-29] MEDS: Hydrocortisone 25 MG Suppository RECTAL (04:27)
[2018-06-29 05:46] LABS: Hematocrit 32.1 % (37-47); Hemoglobin 10.2 g/dl (12.0-15.0); Mean Corp Hgb Conc 31.8 g/gl (32-36); Mean Corpuscular Hgb 26.4 pg (27.0-32.0); Mean Corpuscular Volume 82.9 fL (81-99); Mean Platelet Vol. 11.3 fl (6.2-12.0); Platelet Count 290 K/mm3 (150-450); RBC Distribution Width CV 14.4 % (11.6-14.6); RBC Distribution Width SD 42.5 fl (35.1-43.9); Red Blood Count 3.87 M/mm3 (4.2-5.4); White Blood Count 8.3 K/mm3 (4.4-11.0)
[2018-06-29 05:48] LABS: Scan Indicated on CBC? Y/N NO
[2018-06-29 06:03] LABS: Albumin, Serum 2.2 g/dL (3.2-5.0); BUN 88 mg/dL (7-18); BUN/Creat Ratio 35.3 RATIO (10-20); Calcium,Total 8.2 mg/dL (8.5-10.1); Chloride 111 mmol/L (98-107); Creatinine, Serum 2.49 mg/dL (0.55-1.02); EST Glomerular Filtration Rate 21 mL/min (>60); Est Glom Filt Rate - Afr Amer 26 mL/min (>60); Estimated Creatinine Clearance 19.95 ml/min; Glucose 130 mg/dL (74-106); Phosphorus 3.3 mg/dL (2.5-4.9); Potassium 4.5 mmol/L (3.5-5.1); Sodium Level 142 mmol/L (136-145)
[2018-06-29 07:01] VITALS: BP 150/75; PULSE 62
[2018-06-29] MEDS: busPIRone 5 MG Tablet PO ×3 (07:01→22:18)
[2018-06-29] MEDS: hydrALAZINE 50 MG Tablet PO ×3 (07:01→22:17)
[2018-06-29 07:21] LABS: Bedside Glucose 96 mg/dL (70-110)
[2018-06-29] MEDS: Calcium (Elemental) 500 MG Tablet PO ×2 (07:50→17:19)
[2018-06-29] MEDS: Pantoprazole Sodium 20 MG Tablet PO (07:50)
[2018-06-29] MEDS: predniSONE 20 MG Tablet 60 MG PO (07:50)
[2018-06-29] MEDS: Atenolol 100 MG Tablet PO (07:50)
[2018-06-29] MEDS: Multivitamins,Ther W-Minerals Tablet 1 TABLET PO (07:50)
[2018-06-29] MEDS: Insulin Lispro 100 UNIT/ML INSULN.PEN SC ×5 (07:51→22:18)
[2018-06-29] MEDS: Heparin Injection (Vial) 5,000 UNIT/ML VIAL 5000 UNIT SC ×2 (07:52→22:18)
[2018-06-29] MEDS: Sertraline 100 MG Tablet PO (07:52)
[2018-06-29] MEDS: Fenofibrate 145 MG Tablet PO (07:52)
[2018-06-29] MEDS: amLODIPine 10 MG Tablet PO (07:52)
[2018-06-29] MEDS: Senna/Docusate Sodium 1 Tablet 2 TABLET PO ×2 (07:53→22:19)
[2018-06-29 09:17] VITALS: BP 150/75; PULSE 62; RESP 20; TEMP 36.6; O2SAT 98
[2018-06-29 11:21] LABS: Bedside Glucose 125 mg/dL (70-110)
[2018-06-29] MEDS: Collagenase 30gm Tube 1 APPLIC TOPICAL (11:42)
[2018-06-29 13:56] VITALS: PULSE 78
--- NOTE | 2018-06-29 14:55 | CASEMGMT ---
Insurance Continued stay approved with next update due on 07/03/18. Auth#[id number] BERNARD Bowser, STOPPING BUILDER
--- NOTE | 2018-06-29 14:56 | CASEMGMT ---
Social Work Met with patient in room to complete Medicaid application as well as provide information on how to apply for social security disability. Patient also wanting to apply for the [place] care waive program. Patient is planning to contact the social security office via phone call and then begin application process. Medicaid application along with [place] care waiver program application faxed to [employer]. Support given. Will continue to follow. BERNARD Bowser, PARLIAMENTARY COUNSEL
[2018-06-29 16:07] LABS: Albumin 2.4 g/dL (2.9-4.4); Alpha-1-Globulins 0.2 g/dL (0.0-0.4); Gamma Globulin 0.4 g/dL (0.4-1.8); Immunoglobulin A 138 mg/dL (87-352); Immunoglobulin G 333 mg/dL (700-1600); Immunoglobulin M 90 mg/dL (26-217); PROEL- TOTAL PROTEIN 4.7 g/dL (6.0-8.5)
--- NOTE | 2018-06-29 16:17 | CHAPLAIN ---
Type of Pastoral Visit ___ Initial Visit _x__ Follow-up Visit ___ On-call Visit ___ General Patient Visit ___ Spiritual Assessment ___ Family Conference ___ Bereavement ___ Rapid Response ___ Code Blue ___ Other (describe below) Pastoral Care Referral From _x__ Patient ___ Family ___ Nurse ___ Physician ___ Inspector Toys ___ Public Safety Dispatcher ___ Other (describe below) Sacrament/Intervention _x__ Active listening ___ Anointing ___ Samaritan ___ Bereavement ___ Communion ___ Thais exploration ___ ___ Life review ___ Prayer ___ Reconciliation ___ Sacrament of Sick ___ Supportive presence ___ Wedding ___ Other (describe below) Pastoral Comments brief follow up and greeting to check on patient; met family members
[2018-06-29 16:26] LABS: Bedside Glucose 178 mg/dL (70-110)
[2018-06-29 21:25] LABS: Bedside Glucose 268 mg/dL (70-110)
[2018-06-29 22:00] VITALS: BP 196/80; PULSE 66; RESP 16; TEMP 36.7; O2SAT 95
[2018-06-29 22:17] VITALS: PULSE 66
[2018-06-29] MEDS: Gabapentin 300 MG Capsule PO (22:19)
[2018-06-29] MEDS: Atorvastatin Calcium 20 MG Tablet PO (22:19)
[2018-06-29] MEDS: Montelukast 10 MG Tablet PO (22:20)
[2018-06-30] VITALS (7 sets, daily range): BP systolic 166–193; BP diastolic 69–92; PULSE 58–80; RESP 16–18; TEMP 36.6–36.9; O2SAT 95–96
[2018-06-30 01:41] LABS: Bedside Glucose 189 mg/dL (70-110)
--- NOTE | 2018-06-30 02:21 | NURSING ---
Reviewed and agree with LPNs fims and handoff
[2018-06-30 03:26] LABS: Bedside Glucose 130 mg/dL (70-110)
[2018-06-30] MEDS: hydrALAZINE 50 MG Tablet PO ×3 (06:35→22:51)
[2018-06-30] MEDS: busPIRone 5 MG Tablet PO ×3 (06:36→22:52)
[2018-06-30 07:15] LABS: Bedside Glucose 61 mg/dL (70-110)
[2018-06-30 07:26] LABS: Bedside Glucose 87 mg/dL (70-110)
[2018-06-30] MEDS: Pantoprazole Sodium 20 MG Tablet PO (07:54)
[2018-06-30] MEDS: predniSONE 20 MG Tablet 60 MG PO (07:54)
[2018-06-30] MEDS: Multivitamins,Ther W-Minerals Tablet 1 TABLET PO (07:54)
[2018-06-30] MEDS: Calcium (Elemental) 500 MG Tablet PO ×2 (07:54→17:31)
[2018-06-30] MEDS: amLODIPine 10 MG Tablet PO (07:54)
[2018-06-30] MEDS: Fenofibrate 145 MG Tablet PO (07:55)
[2018-06-30] MEDS: Heparin Injection (Vial) 5,000 UNIT/ML VIAL 5000 UNIT SC ×2 (07:55→22:52)
[2018-06-30] MEDS: Sertraline 100 MG Tablet PO (07:56)
[2018-06-30] MEDS: Atenolol 100 MG Tablet PO (07:56)
[2018-06-30] MEDS: Collagenase 30gm Tube 1 APPLIC TOPICAL (11:27)
[2018-06-30 12:01] LABS: Bedside Glucose 156 mg/dL (70-110)
[2018-06-30] MEDS: Insulin Lispro 100 UNIT/ML INSULN.PEN SC ×5 (13:29→22:53)
--- NOTE | 2018-06-30 17:00 | NURSING ---
Patient refused to get OOB all day today due to complaining that her stomach was upset.
[2018-06-30 17:05] LABS: Bedside Glucose 249 mg/dL (70-110)
--- NOTE | 2018-06-30 17:40 | NURSING ---
Dr. Lebron aware of BP readings via text page and will come see patient. Patient is asymptomatic.
[2018-06-30 19:54] LABS: IMMUNOFIXATION RESULT,S Comment: (.)
[2018-06-30 21:45] LABS: Bedside Glucose 304 mg/dL (70-110)
[2018-06-30] MEDS: Carvedilol 12.5 MG Tablet PO (22:52)
[2018-06-30] MEDS: Gabapentin 300 MG Capsule PO (22:54)
[2018-06-30] MEDS: Montelukast 10 MG Tablet PO (22:54)
[2018-06-30] MEDS: Atorvastatin Calcium 20 MG Tablet PO (22:54)
--- NOTE | 2018-07-01 00:29 | NURSING ---
Reviewed and agree with LPNs fims and handoff
[2018-07-01 03:01] LABS: Bedside Glucose 156 mg/dL (70-110)
[2018-07-01 05:11] LABS: Bedside Glucose 89 mg/dL (70-110)
[2018-07-01] MEDS: busPIRone 5 MG Tablet PO ×3 (06:46→22:45)
[2018-07-01 06:47] VITALS: BP 161/71; PULSE 59
[2018-07-01] MEDS: hydrALAZINE 50 MG Tablet PO ×3 (06:47→22:45)
[2018-07-01 06:56] LABS: Bedside Glucose 47 mg/dL (70-110)
[2018-07-01 07:11] LABS: Bedside Glucose 53 mg/dL (70-110)
[2018-07-01 07:20] LABS: Bedside Glucose 85 mg/dL (70-110)
--- NOTE | 2018-07-01 07:21 | NURSING ---
Blood sugar low this am, hospitalist notified. Blood sugar wnl after treatment with apple juice and sugar. Orders given to give routine dose of insulin after pt eats breakfast. Pt c/o slight headache when blood sugar was 47. Skin warm and dry. No other signs or symptoms noted with hypoglycemia
[2018-07-01 09:00] VITALS: BP 158/77; PULSE 80; RESP 17; TEMP 36.7; O2SAT 96
[2018-07-01] MEDS: Heparin Injection (Vial) 5,000 UNIT/ML VIAL 5000 UNIT SC ×2 (09:05→22:47)
[2018-07-01] MEDS: Collagenase 30gm Tube 1 APPLIC TOPICAL (09:05)
[2018-07-01] MEDS: Insulin Lispro 100 UNIT/ML INSULN.PEN SC ×5 (09:06→22:47)
[2018-07-01] MEDS: Multivitamins,Ther W-Minerals Tablet 1 TABLET PO (09:08)
[2018-07-01] MEDS: Calcium (Elemental) 500 MG Tablet PO ×2 (09:08→17:04)
[2018-07-01] MEDS: predniSONE 20 MG Tablet 60 MG PO (09:09)
[2018-07-01] MEDS: amLODIPine 10 MG Tablet PO (09:09)
[2018-07-01] MEDS: Sertraline 100 MG Tablet PO (09:09)
[2018-07-01] MEDS: Pantoprazole Sodium 20 MG Tablet PO (09:11)
[2018-07-01] MEDS: Fenofibrate 145 MG Tablet PO (09:11)
[2018-07-01] MEDS: Carvedilol 12.5 MG Tablet PO ×2 (09:12→22:45)
[2018-07-01 09:31] LABS: Bedside Glucose 133 mg/dL (70-110)
[2018-07-01 11:01] LABS: Bedside Glucose 132 mg/dL (70-110)
[2018-07-01 13:48] VITALS: PULSE 77
--- NOTE | 2018-07-01 17:40 | NURSING ---
Patient refused to get OOB today. 1:1 ineffective.
[2018-07-01 17:41] LABS: Bedside Glucose 188 mg/dL (70-110)
[2018-07-01 22:30] VITALS: BP 163/70; PULSE 63; RESP 18; TEMP 36.6; O2SAT 96
[2018-07-01 22:35] LABS: Bedside Glucose 223 mg/dL (70-110)
[2018-07-01 22:45] VITALS: BP 163/70; PULSE 63
[2018-07-01] MEDS: Atorvastatin Calcium 20 MG Tablet PO (22:45)
[2018-07-01] MEDS: Senna/Docusate Sodium 1 Tablet 2 TABLET PO (22:45)
[2018-07-01] MEDS: Gabapentin 300 MG Capsule PO (22:46)
[2018-07-01] MEDS: Montelukast 10 MG Tablet PO (22:50)
[2018-07-02] VITALS (7 sets, daily range): BP systolic 138–158; BP diastolic 62–82; PULSE 65–68; RESP 16–18; TEMP 36.6–36.9; O2SAT 96–98
--- NOTE | 2018-07-02 04:57 | NURSING ---
Reviewed and agree with LPNs fims and handoff
[2018-07-02] MEDS: hydrALAZINE 50 MG Tablet PO ×3 (06:01→21:32)
[2018-07-02] MEDS: busPIRone 5 MG Tablet PO ×3 (06:01→21:32)
[2018-07-02] MEDS: Insulin Lispro 100 UNIT/ML INSULN.PEN SC ×5 (07:52→21:39)
[2018-07-02] MEDS: Multivitamins,Ther W-Minerals Tablet 1 TABLET PO (07:52)
[2018-07-02] MEDS: Carvedilol 12.5 MG Tablet PO ×2 (07:53→21:32)
[2018-07-02] MEDS: Calcium (Elemental) 500 MG Tablet PO ×2 (07:53→17:21)
[2018-07-02] MEDS: amLODIPine 10 MG Tablet PO (07:53)
[2018-07-02] MEDS: predniSONE 20 MG Tablet 60 MG PO (07:53)
[2018-07-02] MEDS: Fenofibrate 145 MG Tablet PO (07:54)
[2018-07-02] MEDS: Sertraline 100 MG Tablet PO (07:54)
[2018-07-02] MEDS: Pantoprazole Sodium 20 MG Tablet PO (07:54)
[2018-07-02] MEDS: Senna/Docusate Sodium 1 Tablet 2 TABLET PO (07:55)
[2018-07-02 08:06] LABS: Bedside Glucose 90 mg/dL (70-110)
[2018-07-02 08:29] LABS: Anion Gap 12 (5-15); BUN 74 mg/dL (7-18); Calcium,Total 8.4 mg/dL (8.5-10.1); Chloride 109 mmol/L (98-107); Creatinine, Serum 2.39 mg/dL (0.55-1.02); EST Glomerular Filtration Rate 22 mL/min (>60); Est Glom Filt Rate - Afr Amer 27 mL/min (>60); Estimated Creatinine Clearance 20.79 ml/min; Glucose 85 mg/dL (74-106); Potassium 3.9 mmol/L (3.5-5.1); Sodium Level 143 mmol/L (136-145)
[2018-07-02] MEDS: Heparin Injection (Vial) 5,000 UNIT/ML VIAL 5000 UNIT SC ×2 (10:18→21:31)
[2018-07-02] MEDS: Collagenase 30gm Tube 1 APPLIC TOPICAL (10:20)
[2018-07-02 10:35] LABS: Bedside Glucose 119 mg/dL (70-110)
[2018-07-02 11:46] LABS: Bedside Glucose 87 mg/dL (70-110)
--- NOTE | 2018-07-02 13:54 | NURSING ---
Called Dr. Lew's office ref. pt's bp being high and does she want to adjust bp meds. Waiting for call back.
--- NOTE | 2018-07-02 15:26 | CASEMGMT ---
Team meeting held. Patient present as well as patient daughter. Patient daughter, Nikole present via speaker phone. Patient plans to discharge to home with family. Team reporting that patient may need to transition to a facility if patient continues to need x2 assist for transfers. No discharge date set at this time. Patient plans to continue with further care and treatment on the Inpatient Rehab Unit. Insurance with update due on 07/03/18. Support given. Will continue to follow. MERCY Villalba
--- NOTE | 2018-07-02 15:38 | PCM.PN.NEU ---
Subjective: Staffed in team meeting. Family was on teleconference. questions where addressed and answered. With Physical therapy, she is standby assist for going from a lying position to a sitting position. She is able to go from the bed to the wheelchair using a sliding board at minimal assist. She is able to go all over the unit with wheelchair without any assistance. She has stood in the parallel bars with the help of 2 people for 3 minutes, has worked on kaykay shifting and marching while standing to improve endurance for walking. With Occupational therapy, she is able to do her upper body care at setup level and is max assist for lower body bathing. She requires two people to get on and off the toilet. With Nursing her blood sugar has been stable and controlled. Her blood pressure continues to go up so will consult Dr. Lew for assistance since the patient has kidney issues. Will set up an appointment for a pulp tester for next week. Will re-team next Monday07/09/18. - Physical Exam General: Alert, Oriented x3, Cooperative HEENT: Atraumatic, PERRLA, EOMI, Normocephalic Neck: Supple, No JVD, Negative Carotid Bruits Lungs: Clear to auscultation, Normal air movement Cardiovascular: Regular rate, No murmurs Abdomen: Bowel Sounds Present, Soft, Non Tender Extremities: No edema, Capillary Refill Less than 3 Seconds Skin: No rashes, No breakdown Musculoskeletal: No Tenderness to Palpation of Joints or Extremities Neurological: Cranial nerves II-XII grossly intact Psych/Mental Status: Normal Affect, Appropriate, Alert and oriented to time, place, person, mood and affect Vital Signs Temp Pulse Resp BP Pulse Ox 97.9 F 68 16 150/66 H 96 07/02/18 09:03 07/02/18 14:26 07/02/18 09:03 07/02/18 14:26 07/02/18 09:03 Oxygen Delivery Method Room Air Weight: 111.9 kg Body Mass Index (BMI) 44.7 Intake and Output for Last 24 Hours 06/30/18 07/01/18 07/02/18 23:59 23:59 23:59 Intake Total 600 / 600 840 / 840 840 / 840 Balance 600 / 600 840 / 840 840 / 840 Laboratory Tests Past 24 Hrs 06/21/18 06/21/18 07/02/18 12:05 12:05 07:44 Sodium 143 Potassium 3.9 Chloride 109 H Carbon Dioxide 22.0 Anion Gap 12 BUN 74 H Creatinine 2.39 H Estim Creat Clear Calc 20.79 Est GFR (MDRD) Af Amer 27 L Est GFR (MDRD) Non-Af 22 L BUN/Creatinine Ratio 31.0 H Glucose 85 Calcium 8.4 L Lyme Disease Interpret REF LAB Miscellaneous Test POC Glucose 07/02/18 07/02/18 07/02/18 11:37 10:05 07:47 POC Glucose 87 119 H 90 07/01/18 07/01/18 20:54 17:05 POC Glucose 223 H 188 H Active Medications Acetaminophen (Tylenol) 650 mg PO Q8H PRN PRN PRN Reason: PAIN Last Admin: 06/27/18 05:46 Dose: 650 mg Amlodipine Besylate (Norvasc) 10 mg PO DAILY [facility] Last Admin: 07/02/18 07:53 Dose: 10 mg Atorvastatin Calcium (Lipitor) 20 mg PO QHS [facility] Last Admin: 07/01/18 22:45 Dose: 20 mg Bisacodyl (Dulcolax) 10 mg RECTAL .PRN X 1 PRN PRN Reason: Constipation Last Admin: 06/26/18 14:29 Dose: 10 mg Buspirone HCl (Buspar) 5 mg PO TID [facility] Last Admin: 07/02/18 14:26 Dose: 5 mg Calcium Carbonate (Os-Chinedu 500) [facility] Last Admin: 07/02/18 07:53 Dose: 500 mg Carvedilol (Coreg) 12.5 mg PO BID [facility] Last Admin: 07/02/18 07:53 Dose: 12.5 mg Collagenase (Santyl) 1 applic TOPICAL DAILY [facility]; Protocol Last Admin: 07/02/18 10:20 Dose: 1 applicatio Fenofibrate (Tricor) 145 mg PO DAILY [facility] Last Admin: 07/02/18 07:54 Dose: 145 mg Gabapentin (Neurontin) 300 mg PO QHS [facility] Last Admin: 07/01/18 22:46 Dose: 300 mg Heparin Sodium (Porcine) (Heparin Na) 5,000 unit SC Q12 [facility] Last Admin: 07/02/18 10:18 Dose: 5,000 unit Hydralazine HCl (Apresoline) 50 mg PO TID [facility] Last Admin: 07/02/18 14:26 Dose: 50 mg Hydrocortisone Acetate (Anusol Hc) 25 mg RECTAL BID PRN PRN PRN Reason: Hemorrhoids Last Admin: 06/29/18 04:27 Dose: 25 mg Insulin Glargine (Lantus (Bkc)) 15 units SC QHS [facility] Last Admin: 07/01/18 22:46 Dose: 15 u Insulin Glargine (Lantus (Bkc)) 20 units SC DAILY [facility] Last Admin: 07/02/18 10:19 Dose: 20 units Insulin Human Lispro (Humalog Kwikpen (Bkc)) 0 unit SC ACHS [facility]; Protocol Last Admin: 07/02/18 12:25 Dose: Not Given Insulin Human Lispro (Humalog Kwikpen (Bkc)) 5 unit SC BID@1200,1700 [facility] Last Admin: 07/02/18 12:31 Dose: 5 units Insulin Human Lispro (Humalog Kwikpen (Bkc)) 4 unit SC DAILY@0700 [facility] Last Admin: 07/02/18 07:52 Dose: 4 units Magnesium Hydroxide (Milk Of Magnesia) 30 ml PO .PRN X 1 PRN PRN Reason: Constipation Menthol (Bengay Vanishing Scent) 1 applic TOPICAL TID PRN PRN PRN Reason: PAIN Last Admin: 06/27/18 10:32 Dose: 1 applic Montelukast Sodium (Singulair) 10 mg PO QHS [facility] Last Admin: 07/01/18 22:50 Dose: 10 mg Multivitamins/Minerals (Multivitamin With Minerals) 1 tablet PO DAILY@0800 [facility] Last Admin: 07/02/18 07:52 Dose: 1 tablet Ondansetron HCl (Zofran Odt) 4 mg PO Q8H PRN PRN PRN Reason: NAUSEA Last Admin: 06/27/18 05:46 Dose: 4 mg Oxycodone HCl (Oxyir) 5 mg PO Q6H PRN PRN PRN Reason: SEVERE PAIN (6-10/10) Last Admin: 06/27/18 01:47 Dose: 5 mg Pantoprazole Sodium (Protonix) 20 mg PO DAILY [facility] Last Admin: 07/02/18 07:54 Dose: 20 mg Prednisone () 60 mg PO DAILY@0800 [facility] Last Admin: 07/02/18 07:53 Dose: 60 mg Senna/Docusate Sodium (Senokot-S, Leti-Colace) 2 tablet PO BID [facility] Last Admin: 07/02/18 07:55 Dose: 2 tablet Sertraline HCl (Zoloft) 100 mg PO DAILY [facility] Last Admin: 07/02/18 07:54 Dose: 100 mg Sodium Chloride () 5 - 15 ml IV UD PRN PRN Reason: SALINE FLUSH Last Admin: 06/22/18 21:43 Dose: 10 ml Sodium Chloride () 5 - 15 ml IV UD PRN PRN Reason: SALINE FLUSH Medical Necessity - Tobacco Use Smoking Status: Never smoker Tobacco Use: Non-smoker Assessment/Plan All Active Problems Debility (Acute) Debility 2/2 rapidly progressive loss of function and LE weakness, complicated by DM II, Chronic Renal failure stage IV and obesity. Goal of rehab is roman catholic of functional independence. Plan: - Physical therapy for gait and balance - Occupational Therapy for ADLs - As needed analgesics - Bowel protocol - DVT prophylaxis: SCDs, ASA, Lovenox - DM type II - A1c 7.1 on admission, blood sugars ACHS, Moderate sliding scale, Lantus 30 units BID - Renal failure stage IV (Chronic) -Check BMP in 3 days, on d/c follow up appointment with Dr. 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 Lew concerning 24 hour urine results - Obtain serum protein levels = pending results - Ask Dr. Lew to review over patients steady increase in blood pressure despite being on several medications
--- NOTE | 2018-07-02 15:53 | PN.NEURO_ITS ---
Subjective: Staffed in team meeting. Family was on teleconference. questions where addressed and answered. With Physical therapy, she is standby assist for going from a lying position to a sitting position. She is able to go from the bed to the wheelchair using a sliding board at minimal assist. She is able to go all over the unit with wheelchair without any assistance. She has stood in the parallel bars with the help of 2 people for 3 minutes, has worked on kaykay shifting and marching while standing to improve endurance for walking. With Occupational therapy, she is able to do her upper body care at setup level and is max assist for lower body bathing. She requires two people to get on and off the toilet. With Nursing her blood sugar has been stable and controlled. Her blood pressure continues to go up so will consult Dr. Lew for assistance since the patient has kidney issues. Will set up an appointment for a parking meter attendant for next week. Will re-team next Monday07/09/18. - Physical Exam General: Alert, Oriented x3, Cooperative HEENT: Atraumatic, PERRLA, EOMI, Normocephalic Neck: Supple, No JVD, Negative Carotid Bruits Lungs: Clear to auscultation, Normal air movement Cardiovascular: Regular rate, No murmurs Abdomen: Bowel Sounds Present, Soft, Non Tender Extremities: No edema, Capillary Refill Less than 3 Seconds Skin: No rashes, No breakdown Musculoskeletal: No Tenderness to Palpation of Joints or Extremities Neurological: Cranial nerves II-XII grossly intact Psych/Mental Status: Normal Affect, Appropriate, Alert and oriented to time, place, person, mood and affect Vital Signs Temp Pulse Resp BP Pulse Ox 97.9 F 68 16 150/66 H 96 07/02/18 09:03 07/02/18 14:26 07/02/18 09:03 07/02/18 14:26 07/02/18 09:03 Oxygen Delivery Method Room Air Weight: 111.9 kg Body Mass Index (BMI) 44.7 Intake and Output for Last 24 Hours 06/30/18 07/01/18 07/02/18 23:59 23:59 23:59 Intake Total 600 / 600 840 / 840 840 / 840 Balance 600 / 600 840 / 840 840 / 840 Laboratory Tests Past 24 Hrs 06/21/18 06/21/18 07/02/18 12:05 12:05 07:44 Sodium 143 Potassium 3.9 Chloride 109 H Carbon Dioxide 22.0 Anion Gap 12 BUN 74 H Creatinine 2.39 H Estim Creat Clear Calc 20.79 Est GFR (MDRD) Af Amer 27 L Est GFR (MDRD) Non-Af 22 L BUN/Creatinine Ratio 31.0 H Glucose 85 Calcium 8.4 L Lyme Disease Interpret REF LAB Miscellaneous Test POC Glucose 07/02/18 07/02/18 07/02/18 11:37 10:05 07:47 POC Glucose 87 119 H 90 07/01/18 07/01/18 20:54 17:05 POC Glucose 223 H 188 H Active Medications Acetaminophen (Tylenol) 650 mg PO Q8H PRN PRN PRN Reason: PAIN Last Admin: 06/27/18 05:46 Dose: 650 mg Amlodipine Besylate (Norvasc) 10 mg PO DAILY [facility] Last Admin: 07/02/18 07:53 Dose: 10 mg Atorvastatin Calcium (Lipitor) 20 mg PO QHS [facility] Last Admin: 07/01/18 22:45 Dose: 20 mg Bisacodyl (Dulcolax) 10 mg RECTAL .PRN X 1 PRN PRN Reason: Constipation Last Admin: 06/26/18 14:29 Dose: 10 mg Buspirone HCl (Buspar) 5 mg PO TID [facility] Last Admin: 07/02/18 14:26 Dose: 5 mg Calcium Carbonate (Os[facility]Chinedu 500) [facility] Last Admin: 07/02/18 07:53 Dose: 500 mg Carvedilol (Coreg) 12.5 mg PO BID [facility] Last Admin: 07/02/18 07:53 Dose: 12.5 mg Collagenase (Santyl) 1 applic TOPICAL DAILY [facility]; Protocol Last Admin: 07/02/18 10:20 Dose: 1 applicatio Fenofibrate (Tricor) 145 mg PO DAILY [facility] Last Admin: 07/02/18 07:54 Dose: 145 mg Gabapentin (Neurontin) 300 mg PO QHS [facility] Last Admin: 07/01/18 22:46 Dose: 300 mg Heparin Sodium (Porcine) (Heparin Na) 5,000 unit SC Q12 [facility] Last Admin: 07/02/18 10:18 Dose: 5,000 unit Hydralazine HCl (Apresoline) 50 mg PO TID [facility] Last Admin: 07/02/18 14:26 Dose: 50 mg Hydrocortisone Acetate (Anusol Hc) 25 mg RECTAL BID PRN PRN PRN Reason: Hemorrhoids Last Admin: 06/29/18 04:27 Dose: 25 mg Insulin Glargine (Lantus (Bkc)) 15 units SC QHS [facility] Last Admin: 07/01/18 22:46 Dose: 15 u Insulin Glargine (Lantus (Bkc)) 20 units SC DAILY [facility] Last Admin: 07/02/18 10:19 Dose: 20 units Insulin Human Lispro (Humalog Kwikpen (Bkc)) 0 unit SC ACHS [facility]; Protocol Last Admin: 07/02/18 12:25 Dose: Not Given Insulin Human Lispro (Humalog Kwikpen (Bkc)) 5 unit SC BID@1200,1700 [facility] Last Admin: 07/02/18 12:31 Dose: 5 units Insulin Human Lispro (Humalog Kwikpen (Bkc)) 4 unit SC DAILY@0700 [facility] Last Admin: 07/02/18 07:52 Dose: 4 units Magnesium Hydroxide (Milk Of Magnesia) 30 ml PO .PRN X 1 PRN PRN Reason: Constipation Menthol (Bengay Vanishing Scent) 1 applic TOPICAL TID PRN PRN PRN Reason: PAIN Last Admin: 06/27/18 10:32 Dose: 1 applic Montelukast Sodium (Singulair) 10 mg PO QHS [facility] Last Admin: 07/01/18 22:50 Dose: 10 mg Multivitamins/Minerals (Multivitamin With Minerals) 1 tablet PO DAILY@0800 [facility] Last Admin: 07/02/18 07:52 Dose: 1 tablet Ondansetron HCl (Zofran Odt) 4 mg PO Q8H PRN PRN PRN Reason: NAUSEA Last Admin: 06/27/18 05:46 Dose: 4 mg Oxycodone HCl (Oxyir) 5 mg PO Q6H PRN PRN PRN Reason: SEVERE PAIN (6-10/10) Last Admin: 06/27/18 01:47 Dose: 5 mg Pantoprazole Sodium (Protonix) 20 mg PO DAILY [facility] Last Admin: 07/02/18 07:54 Dose: 20 mg Prednisone () 60 mg PO DAILY@0800 [facility] Last Admin: 07/02/18 07:53 Dose: 60 mg Senna/Docusate Sodium (Senokot-S, Leti-Colace) 2 tablet PO BID [facility] Last Admin: 07/02/18 07:55 Dose: 2 tablet Sertraline HCl (Zoloft) 100 mg PO DAILY [facility] Last Admin: 07/02/18 07:54 Dose: 100 mg Sodium Chloride () 5 - 15 ml IV UD PRN PRN Reason: SALINE FLUSH Last Admin: 06/22/18 21:43 Dose: 10 ml Sodium Chloride () 5 - 15 ml IV UD PRN PRN Reason: SALINE FLUSH Medical Necessity - Tobacco Use Smoking Status: Never smoker Tobacco Use: Non-smoker Assessment/Plan All Active Problems Debility (Acute) Debility 2/2 rapidly progressive loss of function and LE weakness, complicated by DM II, Chronic Renal failure stage IV and obesity. Goal of rehab is yarsanism of functional independence. Plan: - Physical therapy for gait and balance - Occupational Therapy for ADLs - As needed analgesics - Bowel protocol - DVT prophylaxis: SCDs, ASA, Lovenox - DM type II - A1c 7.1 on admission, blood sugars ACHS, Moderate sliding scale, Lantus 30 units BID - Renal failure stage IV (Chronic) -Check BMP in 3 days, on d/c follow up appointment with Dr. 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 Lew concerning 24 hour urine results - Obtain serum protein levels = pending results - Ask Dr. Lew to review over patients steady increase in blood pressure despite being on several medications
--- NOTE | 2018-07-02 16:30 | NURSING ---
[facility] [place] [facility] ( RECOMMENDED BY DR JOHNSON - PER NOTE). EXPLAINED TO ANSWERING SERVICE, WANTING TO R/O POSSIBLE CIDP. STATES THEY DO NOT SEE PTS @ THAT FACILITY FOR THAT DIAGNOSIS.
[2018-07-02 17:00] LABS: Bedside Glucose 203 mg/dL (70-110)
[2018-07-02] MEDS: Losartan Potassium 25 MG Tablet PO ×2 (17:22)
[2018-07-02] MEDS: Gabapentin 300 MG Capsule PO (21:31)
[2018-07-02] MEDS: Atorvastatin Calcium 20 MG Tablet PO (21:31)
[2018-07-02] MEDS: Montelukast 10 MG Tablet PO (21:32)
[2018-07-03 03:16] LABS: Bedside Glucose 130 mg/dL (70-110)
[2018-07-03 05:10] VITALS: BP 156/76; PULSE 64
[2018-07-03] MEDS: hydrALAZINE 50 MG Tablet PO ×3 (05:10→21:56)
[2018-07-03] MEDS: busPIRone 5 MG Tablet PO ×3 (05:10→21:57)
[2018-07-03 06:46] LABS: Bedside Glucose 55 mg/dL (70-110)
[2018-07-03 07:01] LABS: Bedside Glucose 73 mg/dL (70-110)
[2018-07-03 07:15] LABS: Bedside Glucose 61 mg/dL (70-110)
[2018-07-03 07:15] LABS: Bedside Glucose 59 mg/dL (70-110)
[2018-07-03 07:21] LABS: Bedside Glucose 379 mg/dL (70-110)
[2018-07-03 07:21] LABS: Bedside Glucose 312 mg/dL (70-110)
[2018-07-03] MEDS: Multivitamins,Ther W-Minerals Tablet 1 TABLET PO (07:49)
[2018-07-03] MEDS: Pantoprazole Sodium 20 MG Tablet PO (07:49)
[2018-07-03] MEDS: Sertraline 100 MG Tablet PO (07:49)
[2018-07-03] MEDS: Calcium (Elemental) 500 MG Tablet PO ×2 (07:49→17:21)
[2018-07-03] MEDS: predniSONE 20 MG Tablet 60 MG PO (07:50)
[2018-07-03 08:20] VITALS: BP 156/76; PULSE 64; RESP 16; TEMP 36.4; O2SAT 97
[2018-07-03] MEDS: Heparin Injection (Vial) 5,000 UNIT/ML VIAL 5000 UNIT SC ×2 (08:56→21:57)
[2018-07-03] MEDS: Carvedilol 12.5 MG Tablet PO (08:56)
[2018-07-03] MEDS: Insulin Lispro 100 UNIT/ML INSULN.PEN SC ×6 (08:56→21:56)
[2018-07-03] MEDS: amLODIPine 10 MG Tablet PO (08:57)
[2018-07-03] MEDS: Fenofibrate 145 MG Tablet PO (08:57)
[2018-07-03] MEDS: Senna/Docusate Sodium 1 Tablet 2 TABLET PO ×2 (08:57→21:59)
[2018-07-03] MEDS: Collagenase 30gm Tube 1 APPLIC TOPICAL (09:07)
[2018-07-03 09:09] LABS: Albumin, Ur 70.1 % (.); Alpha-1-Globulin, Ur 5.5 % (.); Alpha-2-Globulins, Ur 5.5 % (.); Beta Globulin, Ur 13.3 % (.); Gamma Globulin, Ur 5.7 % (.); M-Spike, Ur % Not Observed % (Not Observed); Protein, 24Ur 11289 mg/24 hr (30-150)
[2018-07-03 09:26] LABS: Bedside Glucose 145 mg/dL (70-110)
[2018-07-03 11:11] LABS: Bedside Glucose 151 mg/dL (70-110)
[2018-07-03 13:20] VITALS: PULSE 77
--- NOTE | 2018-07-03 13:34 | CASEMGMT ---
Insurance Clinical information sent. Pending continued stay approval at this time. Auth#[id number] JOSE Bowser, SHOE DESIGNER
--- NOTE | 2018-07-03 16:43 | PCM.PN.HOSP ---
Subjective: Patient was transferred from acute care, [facility] where she had workup for gradual worsening of bilateral lower extremity weakness. Patient had gradual weakness from November up to February and then rapid weakness could not walk. Later on patient had NCS showed polyneuropathy. Overall diagnosis is made CIDP patient is on prednisone. Vitals/I&O's: Vital Signs Temp Pulse Resp BP Pulse Ox 97.5 F L 77 16 156/76 H 97 07/03/18 08:20 07/03/18 13:20 07/03/18 08:20 07/03/18 08:20 07/03/18 08:20 Oxygen Delivery Method Room Air Weight: 246 lb 11.156 oz Body Mass Index (BMI) 44.7 Intake and Output for Last 24 Hours 07/01/18 07/02/18 07/03/18 23:59 23:59 23:59 Intake Total 840 / 840 1080 / 1080 Balance 840 / 840 1080 / 1080 General: Alert, Oriented x3, Cooperative HEENT: Atraumatic, PERRLA, EOMI, Normocephalic Neck: Supple, No JVD, Negative Carotid Bruits Lungs: Clear to auscultation, Normal air movement Cardiovascular: Regular rate, No murmurs Abdomen: Bowel Sounds Present, Soft, Non Tender, Non-Distended Extremities: No edema, Capillary Refill Less than 3 Seconds Skin: No rashes, No breakdown Musculoskeletal: No Tenderness to Palpation of Joints or Extremities Neurological: Cranial nerves II-XII grossly intact, - - Lower motor neuron bilateral lower extremity weakness, left lower more than right lower extremity. No urinary incontinence. Sensation of bladder fullness intact. Power 3/5. Psych/Mental Status: Normal Affect, Appropriate Laboratory Results 07/02/18 06:51: POC Glucose 59 L 07/02/18 07:06: POC Glucose 61 L 07/02/18 16:52: POC Glucose 203 H 07/02/18 21:36: POC Glucose 379 H 07/02/18 21:38: POC Glucose 312 H 07/03/18 03:12: POC Glucose 130 H 07/03/18 06:35: POC Glucose 55 L 07/03/18 06:52: POC Glucose 73 07/03/18 08:54: POC Glucose 145 H 07/03/18 10:59: POC Glucose 151 H Current Medications Acetaminophen (Tylenol) 650 mg PO Q8H PRN PRN PRN Reason: PAIN Last Admin: 06/27/18 05:46 Dose: 650 mg Amlodipine Besylate (Norvasc) 10 mg PO DAILY [facility] Last Admin: 07/03/18 08:57 Dose: 10 mg Atorvastatin Calcium (Lipitor) 20 mg PO QHS [facility] Last Admin: 07/02/18 21:31 Dose: 20 mg Bisacodyl (Dulcolax) 10 mg RECTAL .PRN X 1 PRN PRN Reason: Constipation Last Admin: 06/26/18 14:29 Dose: 10 mg Buspirone HCl (Buspar) 5 mg PO TID [facility] Last Admin: 07/03/18 13:20 Dose: 5 mg Calcium Carbonate (Os-Chinedu 500) [facility] Last Admin: 07/03/18 07:49 Dose: 500 mg Carvedilol (Coreg) 12.5 mg PO BID [facility] Last Admin: 07/03/18 08:56 Dose: 12.5 mg Collagenase (Santyl) 1 applic TOPICAL DAILY [facility]; Protocol Last Admin: 07/03/18 09:07 Dose: 1 applicatio Fenofibrate (Tricor) 145 mg PO DAILY [facility] Last Admin: 07/03/18 08:57 Dose: 145 mg Gabapentin (Neurontin) 300 mg PO QHS [facility] Last Admin: 07/02/18 21:31 Dose: 300 mg Heparin Sodium (Porcine) (Heparin Na) 5,000 unit SC Q12 [facility] Last Admin: 07/03/18 08:56 Dose: 5,000 unit Hydralazine HCl (Apresoline) 50 mg PO TID [facility] Last Admin: 07/03/18 13:20 Dose: 50 mg Hydrocortisone Acetate (Anusol Hc) 25 mg RECTAL BID PRN PRN PRN Reason: Hemorrhoids Last Admin: 06/29/18 04:27 Dose: 25 mg Insulin Glargine (Lantus (Bkc)) 15 units SC QHS [facility] Last Admin: 07/02/18 21:40 Dose: 15 u Insulin Glargine (Lantus (Bkc)) 20 units SC DAILY [facility] Last Admin: 07/03/18 08:57 Dose: 20 units Insulin Human Lispro (Humalog Kwikpen (Bkc)) 0 unit SC ACHS [facility]; Protocol Last Admin: 07/03/18 13:21 Dose: 3 u Insulin Human Lispro (Humalog Kwikpen (Bkc)) 5 unit SC BID@1200,1700 [facility] Last Admin: 07/03/18 13:23 Dose: 5 units Insulin Human Lispro (Humalog Kwikpen (Bkc)) 4 unit SC DAILY@0700 [facility] Last Admin: 07/03/18 08:56 Dose: 4 units Losartan Potassium (Cozaar) 25 mg PO DAILY [facility] Last Admin: 07/02/18 17:22 Dose: 25 mg Magnesium Hydroxide (Milk Of Magnesia) 30 ml PO .PRN X 1 PRN PRN Reason: Constipation Menthol (Bengay Vanishing Scent) 1 applic TOPICAL TID PRN PRN PRN Reason: PAIN Last Admin: 06/27/18 10:32 Dose: 1 applic Montelukast Sodium (Singulair) 10 mg PO QHS [facility] Last Admin: 07/02/18 21:32 Dose: 10 mg Multivitamins/Minerals (Multivitamin With Minerals) 1 tablet PO DAILY@0800 [facility] Last Admin: 07/03/18 07:49 Dose: 1 tablet Ondansetron HCl (Zofran Odt) 4 mg PO Q8H PRN PRN PRN Reason: NAUSEA Last Admin: 06/27/18 05:46 Dose: 4 mg Oxycodone HCl (Oxyir) 5 mg PO Q6H PRN PRN PRN Reason: SEVERE PAIN (6-10/10) Last Admin: 06/27/18 01:47 Dose: 5 mg Pantoprazole Sodium (Protonix) 20 mg PO DAILY [facility] Last Admin: 07/03/18 07:49 Dose: 20 mg Prednisone () 60 mg PO DAILY@0800 [facility] Last Admin: 07/03/18 07:50 Dose: 60 mg Senna/Docusate Sodium (Senokot-S, Leti-Colace) 2 tablet PO BID [facility] Last Admin: 07/03/18 08:57 Dose: 1 tablet Sertraline HCl (Zoloft) 100 mg PO DAILY [facility] Last Admin: 07/03/18 07:49 Dose: 100 mg Sodium Chloride () 5 - 15 ml IV UD PRN PRN Reason: SALINE FLUSH Last Admin: 06/22/18 21:43 Dose: 10 ml Sodium Chloride () 5 - 15 ml IV UD PRN PRN Reason: SALINE FLUSH Medical Necessity - Tobacco Use Smoking Status: Never smoker Tobacco Use: Non-smoker Assessment/Plan All Active Problems Debility (Acute) This is a 58-year-old female who was admitted to rehab from acute care, [facility] for acute worsening on chronic paraplegia 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 NCS reported to show demyelinating disease with conduction block consistent with CIDP. She had detailed workup including small vessel vasculitis disease, negative so far. 1. CIDP -initially patient was given Solu-Medrol 1 g daily for 5 days during acute care and in rehab on prednisone 60 mg daily. Bowel and bladder care. 2. Hypertension: Blood pressure is controlled on 25 mg losartan daily. On hydralazine 50 mg 3 times daily 3. Diabetes mellitus type 2: Patient is on Humalog insulin and Lantus. Blood sugar is well controlled. In the early childhood specialist blood sugar was 55 and 73. 4. stage IV CRF -seen by Dr. Lew. Preparation for AV fistula. Kidney function is stable at 2.35-2.5- has been seen by Dr. Payan. 5. Nephrotic range proteinuria Code Visit Inpatient E&M: 45860 Subs Hosp L2
--- NOTE | 2018-07-03 16:47 | PN_ITS ---
Subjective: Patient was transferred from acute care, [facility] where she had workup for gradual worsening of bilateral lower extremity weakness. Patient had gradual weakness from November up to February and then rapid weakness could not walk. Later on patient had NCS showed polyneuropathy. Overall diagnosis is made CIDP patient is on prednisone. Vitals/I&O's: Vital Signs Temp Pulse Resp BP Pulse Ox 97.5 F L 77 16 156/76 H 97 07/03/18 08:20 07/03/18 13:20 07/03/18 08:20 07/03/18 08:20 07/03/18 08:20 Oxygen Delivery Method Room Air Weight: 246 lb 11.156 oz Body Mass Index (BMI) 44.7 Intake and Output for Last 24 Hours 07/01/18 07/02/18 07/03/18 23:59 23:59 23:59 Intake Total 840 / 840 1080 / 1080 Balance 840 / 840 1080 / 1080 General: Alert, Oriented x3, Cooperative HEENT: Atraumatic, PERRLA, EOMI, Normocephalic Neck: Supple, No JVD, Negative Carotid Bruits Lungs: Clear to auscultation, Normal air movement Cardiovascular: Regular rate, No murmurs Abdomen: Bowel Sounds Present, Soft, Non Tender, Non-Distended Extremities: No edema, Capillary Refill Less than 3 Seconds Skin: No rashes, No breakdown Musculoskeletal: No Tenderness to Palpation of Joints or Extremities Neurological: Cranial nerves II-XII grossly intact, - - Lower motor neuron bilateral lower extremity weakness, left lower more than right lower extremity. No urinary incontinence. Sensation of bladder fullness intact. Power 3/5. Psych/Mental Status: Normal Affect, Appropriate Laboratory Results 07/02/18 06:51: POC Glucose 59 L 07/02/18 07:06: POC Glucose 61 L 07/02/18 16:52: POC Glucose 203 H 07/02/18 21:36: POC Glucose 379 H 07/02/18 21:38: POC Glucose 312 H 07/03/18 03:12: POC Glucose 130 H 07/03/18 06:35: POC Glucose 55 L 07/03/18 06:52: POC Glucose 73 07/03/18 08:54: POC Glucose 145 H 07/03/18 10:59: POC Glucose 151 H Current Medications Acetaminophen (Tylenol) 650 mg PO Q8H PRN PRN PRN Reason: PAIN Last Admin: 06/27/18 05:46 Dose: 650 mg Amlodipine Besylate (Norvasc) 10 mg PO DAILY [facility] Last Admin: 07/03/18 08:57 Dose: 10 mg Atorvastatin Calcium (Lipitor) 20 mg PO QHS [facility] Last Admin: 07/02/18 21:31 Dose: 20 mg Bisacodyl (Dulcolax) 10 mg RECTAL .PRN X 1 PRN PRN Reason: Constipation Last Admin: 06/26/18 14:29 Dose: 10 mg Buspirone HCl (Buspar) 5 mg PO TID [facility] Last Admin: 07/03/18 13:20 Dose: 5 mg Calcium Carbonate ([facility]Chinedu 500) [facility] Last Admin: 07/03/18 07:49 Dose: 500 mg Carvedilol (Coreg) 12.5 mg PO BID [facility] Last Admin: 07/03/18 08:56 Dose: 12.5 mg Collagenase (Santyl) 1 applic TOPICAL DAILY [facility]; Protocol Last Admin: 07/03/18 09:07 Dose: 1 applicatio Fenofibrate (Tricor) 145 mg PO DAILY [facility] Last Admin: 07/03/18 08:57 Dose: 145 mg Gabapentin (Neurontin) 300 mg PO QHS [facility] Last Admin: 07/02/18 21:31 Dose: 300 mg Heparin Sodium (Porcine) (Heparin Na) 5,000 unit SC Q12 [facility] Last Admin: 07/03/18 08:56 Dose: 5,000 unit Hydralazine HCl (Apresoline) 50 mg PO TID [facility] Last Admin: 07/03/18 13:20 Dose: 50 mg Hydrocortisone Acetate (Anusol Hc) 25 mg RECTAL BID PRN PRN PRN Reason: Hemorrhoids Last Admin: 06/29/18 04:27 Dose: 25 mg Insulin Glargine (Lantus (Bkc)) 15 units SC QHS [facility] Last Admin: 07/02/18 21:40 Dose: 15 u Insulin Glargine (Lantus (Bkc)) 20 units SC DAILY [facility] Last Admin: 07/03/18 08:57 Dose: 20 units Insulin Human Lispro (Humalog Kwikpen (Bkc)) 0 unit SC ACHS [facility]; Protocol Last Admin: 07/03/18 13:21 Dose: 3 u Insulin Human Lispro (Humalog Kwikpen (Bkc)) 5 unit SC BID@1200,1700 [facility] Last Admin: 07/03/18 13:23 Dose: 5 units Insulin Human Lispro (Humalog Kwikpen (Bkc)) 4 unit SC DAILY@0700 [facility] Last Admin: 07/03/18 08:56 Dose: 4 units Losartan Potassium (Cozaar) 25 mg PO DAILY [facility] Last Admin: 07/02/18 17:22 Dose: 25 mg Magnesium Hydroxide (Milk Of Magnesia) 30 ml PO .PRN X 1 PRN PRN Reason: Constipation Menthol (Bengay Vanishing Scent) 1 applic TOPICAL TID PRN PRN PRN Reason: PAIN Last Admin: 06/27/18 10:32 Dose: 1 applic Montelukast Sodium (Singulair) 10 mg PO QHS [facility] Last Admin: 07/02/18 21:32 Dose: 10 mg Multivitamins/Minerals (Multivitamin With Minerals) 1 tablet PO DAILY@0800 [facility] Last Admin: 07/03/18 07:49 Dose: 1 tablet Ondansetron HCl (Zofran Odt) 4 mg PO Q8H PRN PRN PRN Reason: NAUSEA Last Admin: 06/27/18 05:46 Dose: 4 mg Oxycodone HCl (Oxyir) 5 mg PO Q6H PRN PRN PRN Reason: SEVERE PAIN (6-10/10) Last Admin: 06/27/18 01:47 Dose: 5 mg Pantoprazole Sodium (Protonix) 20 mg PO DAILY [facility] Last Admin: 07/03/18 07:49 Dose: 20 mg Prednisone () 60 mg PO DAILY@0800 [facility] Last Admin: 07/03/18 07:50 Dose: 60 mg Senna/Docusate Sodium (Senokot-S, Leti-Colace) 2 tablet PO BID [facility] Last Admin: 07/03/18 08:57 Dose: 1 tablet Sertraline HCl (Zoloft) 100 mg PO DAILY [facility] Last Admin: 07/03/18 07:49 Dose: 100 mg Sodium Chloride () 5 - 15 ml IV UD PRN PRN Reason: SALINE FLUSH Last Admin: 06/22/18 21:43 Dose: 10 ml Sodium Chloride () 5 - 15 ml IV UD PRN PRN Reason: SALINE FLUSH Medical Necessity - Tobacco Use Smoking Status: Never smoker Tobacco Use: Non-smoker Assessment/Plan All Active Problems Debility (Acute) This is a 58-year-old female who was admitted to rehab from acute care, [facility] for acute worsening on chronic paraplegia 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 NCS reported to show demyelinating disease with conduction block consistent with CIDP. She had detailed workup including small vessel vasculitis disease, negative so far. 1. CIDP -initially patient was given Solu-Medrol 1 g daily for 5 days during acute care and in rehab on prednisone 60 mg daily. Bowel and bladder care. 2. Hypertension: Blood pressure is controlled on 25 mg losartan daily. On hydralazine 50 mg 3 times daily 3. Diabetes mellitus type 2: Patient is on Humalog insulin and Lantus. Blood sugar is well controlled. In the lace winder blood sugar was 55 and 73. 4. stage IV CRF -seen by Dr. Lew. Preparation for AV fistula. Kidney function is stable at 2.35-2.5- has been seen by Dr. Payan. 5. Nephrotic range proteinuria Code Visit Inpatient E&M: 12922 Subs Hosp L2
[2018-07-03 16:55] LABS: Bedside Glucose 203 mg/dL (70-110)
[2018-07-03 21:56] VITALS: BP 155/85; PULSE 60
[2018-07-03] MEDS: Gabapentin 300 MG Capsule PO (21:56)
[2018-07-03] MEDS: Montelukast 10 MG Tablet PO (21:58)
[2018-07-03] MEDS: Atorvastatin Calcium 20 MG Tablet PO (21:58)
[2018-07-03 22:00] VITALS: BP 155/85; PULSE 60; RESP 16; TEMP 36.6; O2SAT 97
[2018-07-03 22:20] LABS: Bedside Glucose 265 mg/dL (70-110)
--- NOTE | 2018-07-04 02:44 | NURSING ---
Reviewed and agree with PLASTIC JIG AND FIXTURE BUILDER documentation and FIMs charting
[2018-07-04 03:46] LABS: Bedside Glucose 131 mg/dL (70-110)
[2018-07-04 05:45] VITALS: BP 152/80; PULSE 69
[2018-07-04] MEDS: hydrALAZINE 50 MG Tablet PO ×3 (05:45→21:54)
[2018-07-04] MEDS: busPIRone 5 MG Tablet PO ×3 (05:45→21:54)
[2018-07-04 07:01] VITALS: BP 152/80; PULSE 69; RESP 18; TEMP 36.4; O2SAT 98
[2018-07-04 07:21] LABS: Bedside Glucose 84 mg/dL (70-110)
[2018-07-04] MEDS: Multivitamins,Ther W-Minerals Tablet 1 TABLET PO (07:52)
[2018-07-04] MEDS: predniSONE 20 MG Tablet 60 MG PO (07:53)
[2018-07-04] MEDS: Carvedilol 12.5 MG Tablet PO ×2 (07:53→21:55)
[2018-07-04] MEDS: Calcium (Elemental) 500 MG Tablet PO ×2 (07:53→17:06)
[2018-07-04] MEDS: Losartan Potassium 25 MG Tablet PO ×2 (07:54→09:52)
[2018-07-04] MEDS: Heparin Injection (Vial) 5,000 UNIT/ML VIAL 5000 UNIT SC ×2 (07:54→21:55)
[2018-07-04] MEDS: amLODIPine 10 MG Tablet PO (07:54)
[2018-07-04] MEDS: Senna/Docusate Sodium 1 Tablet 2 TABLET PO (07:55)
[2018-07-04] MEDS: Fenofibrate 145 MG Tablet PO (07:55)
[2018-07-04] MEDS: Sertraline 100 MG Tablet PO (07:55)
[2018-07-04] MEDS: Collagenase 30gm Tube 1 APPLIC TOPICAL (07:56)
[2018-07-04] MEDS: Pantoprazole Sodium 20 MG Tablet PO (07:58)
[2018-07-04] MEDS: Insulin Lispro 100 UNIT/ML INSULN.PEN SC ×5 (07:59→22:03)
[2018-07-04 09:29] LABS: Albumin, Serum 2.2 g/dL (3.2-5.0); BUN 73 mg/dL (7-18); BUN/Creat Ratio 29.7 RATIO (10-20); Calcium,Total 7.9 mg/dL (8.5-10.1); Chloride 111 mmol/L (98-107); Creatinine, Serum 2.46 mg/dL (0.55-1.02); EST Glomerular Filtration Rate 22 mL/min (>60); Est Glom Filt Rate - Afr Amer 26 mL/min (>60); Glucose 121 mg/dL (74-106); Phosphorus 2.4 mg/dL (2.5-4.9); Potassium 3.8 mmol/L (3.5-5.1); Sodium Level 143 mmol/L (136-145)
--- NOTE | 2018-07-04 10:01 | PN.NEURO_ITS ---
Subjective: Patient seen, lying quietly in bed resting. No new complaints. Tolerating therapy, pain is well controlled on current medications. Denies any shortness of breath, or chest pains. No issues with GI/. - Physical Exam General: Alert, Oriented x3, Cooperative HEENT: Atraumatic, PERRLA, EOMI, Normocephalic Neck: Supple, No JVD, Negative Carotid Bruits Lungs: Clear to auscultation, Normal air movement Cardiovascular: Regular rate, No murmurs Abdomen: Bowel Sounds Present, Soft, Non Tender Extremities: No edema, Capillary Refill Less than 3 Seconds Skin: No rashes, No breakdown Musculoskeletal: No Tenderness to Palpation of Joints or Extremities Neurological: Cranial nerves II-XII grossly intact Psych/Mental Status: Normal Affect, Appropriate, Alert and oriented to time, place, person, mood and affect Vital Signs Temp Pulse Resp BP Pulse Ox 97.6 F L 69 18 152/80 H 98 07/04/18 07:01 07/04/18 07:01 07/04/18 07:01 07/04/18 07:01 07/04/18 07:01 Oxygen Delivery Method Room Air Weight: 111.9 kg Body Mass Index (BMI) 44.7 Intake and Output for Last 24 Hours 07/02/18 07/03/18 07/04/18 23:59 23:59 23:59 Intake Total 1080 / 1080 120 / 120 360 / 360 Balance 1080 / 1080 120 / 120 360 / 360 Laboratory Tests Past 24 Hrs 07/04/18 09:05 Sodium 143 Potassium 3.8 Chloride 111 H Carbon Dioxide 24.0 BUN 73 H Creatinine 2.46 H Estim Creat Clear Calc 20.20 Est GFR (MDRD) Af Amer 26 L Est GFR (MDRD) Non-Af 22 L BUN/Creatinine Ratio 29.7 H Glucose 121 H Calcium 7.9 L Phosphorus 2.4 L Albumin 2.2 L POC Glucose 07/04/18 07/04/18 07/03/18 07:08 03:13 21:42 POC Glucose 84 131 H 265 H 07/03/18 07/03/18 16:46 10:59 POC Glucose 203 H 151 H Active Medications Acetaminophen (Tylenol) 650 mg PO Q8H PRN PRN PRN Reason: PAIN Last Admin: 06/27/18 05:46 Dose: 650 mg Amlodipine Besylate (Norvasc) 10 mg PO DAILY [facility] Last Admin: 07/04/18 07:54 Dose: 10 mg Atorvastatin Calcium (Lipitor) 20 mg PO QHS [facility] Last Admin: 07/03/18 21:58 Dose: 20 mg Bisacodyl (Dulcolax) 10 mg RECTAL .PRN X 1 PRN PRN Reason: Constipation Last Admin: 06/26/18 14:29 Dose: 10 mg Buspirone HCl (Buspar) 5 mg PO TID [facility] Last Admin: 07/04/18 05:45 Dose: 5 mg Calcium Carbonate (Os-Chinedu 500) 500 mg PO BIDCM [facility] Last Admin: 07/04/18 07:53 Dose: 500 mg Carvedilol (Coreg) 12.5 mg PO BID [facility] Last Admin: 07/04/18 07:53 Dose: 12.5 mg Collagenase (Santyl) 1 applic TOPICAL DAILY [facility]; Protocol Last Admin: 07/04/18 07:56 Dose: 1 applicatio Fenofibrate (Tricor) 145 mg PO DAILY [facility] Last Admin: 07/04/18 07:55 Dose: 145 mg Gabapentin (Neurontin) 300 mg PO QHS [facility] Last Admin: 07/03/18 21:56 Dose: 300 mg Heparin Sodium (Porcine) (Heparin Na) 5,000 unit SC Q12 [facility] Last Admin: 07/04/18 07:54 Dose: 5,000 unit Hydralazine HCl (Apresoline) 50 mg PO TID [facility] Last Admin: 07/04/18 05:45 Dose: 50 mg Hydrocortisone Acetate (Anusol Hc) 25 mg RECTAL BID PRN PRN PRN Reason: Hemorrhoids Last Admin: 06/29/18 04:27 Dose: 25 mg Insulin Glargine (Lantus (Bkc)) 20 units SC DAILY [facility] Last Admin: 07/04/18 07:58 Dose: 20 units Insulin Glargine (Lantus (Bkc)) 5 units SC QHS [facility] Last Admin: 07/03/18 21:55 Dose: 5 units Insulin Human Lispro (Humalog Kwikpen (Bkc)) 0 unit SC ACHS [facility]; Protocol Last Admin: 07/04/18 07:52 Dose: Not Given Insulin Human Lispro (Humalog Kwikpen (Bkc)) 5 unit SC BID@1200,1700 [facility] Last Admin: 07/03/18 17:21 Dose: 5 units Insulin Human Lispro (Humalog Kwikpen (Bkc)) 4 unit SC DAILY@0700 [facility] Last Admin: 07/04/18 07:59 Dose: 4 units Losartan Potassium (Cozaar) 50 mg PO DAILY [facility] Losartan Potassium (Cozaar) 25 mg PO X1 ONE Stop: 07/04/18 10:01 Last Admin: 07/04/18 09:52 Dose: 25 mg Magnesium Hydroxide (Milk Of Magnesia) 30 ml PO .PRN X 1 PRN PRN Reason: Constipation Menthol (Bengay Vanishing Scent) 1 applic TOPICAL TID PRN PRN PRN Reason: PAIN Last Admin: 06/27/18 10:32 Dose: 1 applic Montelukast Sodium (Singulair) 10 mg PO QHS [facility] Last Admin: 07/03/18 21:58 Dose: 10 mg Multivitamins/Minerals (Multivitamin With Minerals) 1 tablet PO DAILY@0800 [facility] Last Admin: 07/04/18 07:52 Dose: 1 tablet Ondansetron HCl (Zofran Odt) 4 mg PO Q8H PRN PRN PRN Reason: NAUSEA Last Admin: 06/27/18 05:46 Dose: 4 mg Oxycodone HCl (Oxyir) 5 mg PO Q6H PRN PRN PRN Reason: SEVERE PAIN (6-10/10) Last Admin: 06/27/18 01:47 Dose: 5 mg Pantoprazole Sodium (Protonix) 20 mg PO DAILY [facility] Last Admin: 07/04/18 07:58 Dose: 20 mg Prednisone () 60 mg PO DAILY@0800 [facility] Last Admin: 07/04/18 07:53 Dose: 60 mg Senna/Docusate Sodium (Senokot-S, Leti-Colace) 2 tablet PO BID [facility] Last Admin: 07/04/18 07:55 Dose: 1 tablet Sertraline HCl (Zoloft) 100 mg PO DAILY [facility] Last Admin: 07/04/18 07:55 Dose: 100 mg Sodium Chloride () 5 - 15 ml IV UD PRN PRN Reason: SALINE FLUSH Last Admin: 06/22/18 21:43 Dose: 10 ml Sodium Chloride () 5 - 15 ml IV UD PRN PRN Reason: SALINE FLUSH Medical Necessity - Tobacco Use Smoking Status: Never smoker Tobacco Use: Non-smoker Assessment/Plan All Active Problems Debility (Acute) Debility 2/2 rapidly progressive loss of function and LE weakness, complicated by DM II, Chronic Renal failure stage IV and obesity. Goal of rehab is nondenominational of functional independence. Plan: - Physical therapy for gait and balance - Occupational Therapy for ADLs - As needed analgesics - Bowel protocol - DVT prophylaxis: SCDs, ASA, Lovenox - DM type II - A1c 7.1 on admission, blood sugars ACHS, Moderate sliding scale, Lantus 30 units BID - Renal failure stage IV (Chronic) -Check BMP in 3 days, on d/c follow up appointment with Dr. 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 Lew concerning 24 hour urine results - Obtain serum protein levels = pending results - Ask Dr. Lew to review over patients steady increase in blood pressure despite being on several medications
[2018-07-04 12:06] LABS: Bedside Glucose 131 mg/dL (70-110)
[2018-07-04 13:41] VITALS: PULSE 68
--- NOTE | 2018-07-04 14:18 | PCM.PN.REN ---
Subjective: BP remains mildly elevated. Losartan started at 25mg daily, increased to 50mg today. Able to kick with rt leg, still 1/5 strength LLE. No uremic symptoms - Physical Exam General: Alert, Oriented x3, Cooperative, No apparent distress Musculoskeletal: - - 2/5 motor RLE, 1/5 LLE Vital Signs Temp Pulse Resp BP Pulse Ox 97.6 F L 68 18 152/80 H 98 07/04/18 07:01 07/04/18 13:41 07/04/18 07:01 07/04/18 07:01 07/04/18 07:01 Oxygen Delivery Method Room Air Weight: 111.9 kg Body Mass Index (BMI) 44.7 Intake and Output for Last 24 Hours 07/02/18 07/03/18 07/04/18 23:59 23:59 23:59 Intake Total 1080 / 1080 120 / 120 720 / 720 Balance 1080 / 1080 120 / 120 720 / 720 Laboratory Tests Past 24 Hrs 07/04/18 09:05 Sodium 143 Potassium 3.8 Chloride 111 H Carbon Dioxide 24.0 BUN 73 H Creatinine 2.46 H Estim Creat Clear Calc 20.20 Est GFR (MDRD) Af Amer 26 L Est GFR (MDRD) Non-Af 22 L BUN/Creatinine Ratio 29.7 H Glucose 121 H Calcium 7.9 L Phosphorus 2.4 L Albumin 2.2 L POC Glucose 07/04/18 07/04/18 07/04/18 11:50 07:08 03:13 POC Glucose 131 H 84 131 H 07/03/18 07/03/18 21:42 16:46 POC Glucose 265 H 203 H Medical Necessity - Tobacco Use Smoking Status: Never smoker Tobacco Use: Non-smoker Assessment/Plan All Active Problems Debility (Acute) 1. CKD stage 4 due to DM2. Repeat 24h urine CRCL 16cc/min with 10g TP. Currently without uremic symptoms with stable volume status. No urgent need for dialysis 2. Hyperkalemia resolved. Stable on ARB 3. DM2 primarycare mgmt. 4. HTN Losartan increased to 50mg daily to achieve SBP <140 5. debilitation due to CIDP on prednisone neurology following 6. Morbid obesity 7. Anemia hgb stable
--- NOTE | 2018-07-04 16:12 | CASEMGMT ---
Social Work Telephone call to [phone] ([phone]) to set up transfer board for at time of discharge, as this is the only equipment that patient is reporting to need. [employer] is the company that [employer] utilizes to set up Home health care and Durable medical equipment. This group social worker ordering transfer board at this time, order faxed along with supportive documentation. Fax: . No discharge date set at this time, pending insurance approval. MERCY Villalba
[2018-07-04 16:21] LABS: Bedside Glucose 171 mg/dL (70-110)
[2018-07-04 21:54] VITALS: PULSE 69
[2018-07-04] MEDS: Gabapentin 300 MG Capsule PO (21:55)
[2018-07-04] MEDS: Atorvastatin Calcium 20 MG Tablet PO (21:55)
[2018-07-04] MEDS: Montelukast 10 MG Tablet PO (21:55)
[2018-07-04 22:00] VITALS: BP 160/74; PULSE 69; RESP 18; TEMP 36.6; O2SAT 98
[2018-07-04 22:26] LABS: Bedside Glucose 173 mg/dL (70-110)
--- NOTE | 2018-07-05 02:19 | NURSING ---
Reviewed and agree with PRODUCT MANAGER [employer] documentation and FIMs charting.
[2018-07-05 03:30] LABS: Bedside Glucose 123 mg/dL (70-110)
--- NOTE | 2018-07-05 03:59 | NURSING ---
Reviewed and agree with COTTON WEIGHER OPERATOR documentation FIMs charting.
[2018-07-05 06:57] VITALS: PULSE 64
[2018-07-05] MEDS: hydrALAZINE 50 MG Tablet PO ×3 (06:57→22:12)
[2018-07-05] MEDS: busPIRone 5 MG Tablet PO ×3 (06:58→22:12)
[2018-07-05 07:11] LABS: Bedside Glucose 77 mg/dL (70-110)
[2018-07-05 08:01] VITALS: BP 163/79; PULSE 64; RESP 18; TEMP 36.4; O2SAT 95
[2018-07-05] MEDS: Heparin Injection (Vial) 5,000 UNIT/ML VIAL 5000 UNIT SC ×2 (09:19→22:13)
[2018-07-05 09:23] LABS: Total Protein, Ur 480.4 mg/dL (Not Estab.)
[2018-07-05] MEDS: predniSONE 20 MG Tablet 60 MG PO (09:23)
[2018-07-05] MEDS: Calcium (Elemental) 500 MG Tablet PO ×2 (09:23→17:46)
[2018-07-05] MEDS: Losartan Potassium 50 MG Tablet PO (09:23)
[2018-07-05] MEDS: Multivitamins,Ther W-Minerals Tablet 1 TABLET PO (09:23)
[2018-07-05] MEDS: Carvedilol 12.5 MG Tablet PO ×2 (09:23→22:12)
[2018-07-05] MEDS: amLODIPine 10 MG Tablet PO (09:24)
[2018-07-05] MEDS: Collagenase 30gm Tube 1 APPLIC TOPICAL (09:24)
[2018-07-05] MEDS: Sertraline 100 MG Tablet PO (09:24)
[2018-07-05] MEDS: Fenofibrate 145 MG Tablet PO (09:24)
[2018-07-05] MEDS: Pantoprazole Sodium 20 MG Tablet PO (09:24)
--- NOTE | 2018-07-05 10:36 | PCM.PN.NEU ---
Subjective: Patient seen and examined. No new complaints, tolerating therapy. Denies any blurry vision, SOB or chest pains. Tolerating diabetic diet, blood sugars have been stable. No issues with GI/. - Physical Exam General: Alert, Oriented x3, Cooperative HEENT: Atraumatic, PERRLA, EOMI, Normocephalic Neck: Supple, No JVD, Negative Carotid Bruits Lungs: Clear to auscultation, Normal air movement Cardiovascular: Regular rate, No murmurs Abdomen: Bowel Sounds Present, Soft, Non Tender Extremities: No edema, Capillary Refill Less than 3 Seconds Skin: No rashes, No breakdown Musculoskeletal: No Tenderness to Palpation of Joints or Extremities Neurological: Cranial nerves II-XII grossly intact Psych/Mental Status: Normal Affect, Appropriate, Alert and oriented to time, place, person, mood and affect Vital Signs Temp Pulse Resp BP Pulse Ox 97.6 F L 64 18 163/79 H 95 07/05/18 08:01 07/05/18 08:01 07/05/18 08:01 07/05/18 08:01 07/05/18 08:01 Oxygen Delivery Method Room Air Weight: 111.9 kg Body Mass Index (BMI) 44.7 Intake and Output for Last 24 Hours 07/03/18 07/04/18 07/05/18 23:59 23:59 23:59 Intake Total 120 / 120 960 / 960 Balance 120 / 120 960 / 960 Laboratory Tests Past 24 Hrs 06/28/18 15:37 Ur Total Protein 24 Hr 11150 H Urine Total Protein 480.4 Urine Albumin 70.1 U Rxpbt-7-Dpzpcdyp 5.5 U Nxybm-4-Nncoyiyt 5.5 U Beta Globulin 13.3 U Gamma Globulin 5.7 U PEP M-Yuval Not Observed U PEP M-Yuval 24 Hr TNP Urine Immunofixation Comment Ur Immunofix PEP Note Comment POC Glucose 07/05/18 07/05/18 07/04/18 06:55 03:22 22:02 POC Glucose 77 123 H 173 H 07/04/18 07/04/18 16:10 11:50 POC Glucose 171 H 131 H Active Medications Acetaminophen (Tylenol) 650 mg PO Q8H PRN PRN PRN Reason: PAIN Last Admin: 06/27/18 05:46 Dose: 650 mg Amlodipine Besylate (Norvasc) 10 mg PO DAILY [facility] Last Admin: 07/05/18 09:24 Dose: 10 mg Atorvastatin Calcium (Lipitor) 20 mg PO QHS [facility] Last Admin: 07/04/18 21:55 Dose: 20 mg Bisacodyl (Dulcolax) 10 mg RECTAL .PRN X 1 PRN PRN Reason: Constipation Last Admin: 06/26/18 14:29 Dose: 10 mg Buspirone HCl (Buspar) 5 mg PO TID [facility] Last Admin: 07/05/18 06:58 Dose: 5 mg Calcium Carbonate (Os-Chinedu 500) 500 mg PO BIDCM [facility] Last Admin: 07/05/18 09:23 Dose: 500 mg Carvedilol (Coreg) 12.5 mg PO BID [facility] Last Admin: 07/05/18 09:23 Dose: 12.5 mg Collagenase (Santyl) 1 applic TOPICAL DAILY [facility]; Protocol Last Admin: 07/05/18 09:24 Dose: 1 applicatio Fenofibrate (Tricor) 145 mg PO DAILY [facility] Last Admin: 07/05/18 09:24 Dose: 145 mg Gabapentin (Neurontin) 300 mg PO QHS [facility] Last Admin: 07/04/18 21:55 Dose: 300 mg Heparin Sodium (Porcine) (Heparin Na) 5,000 unit SC Q12 [facility] Last Admin: 07/05/18 09:19 Dose: 5,000 unit Hydralazine HCl (Apresoline) 50 mg PO TID [facility] Last Admin: 07/05/18 06:57 Dose: 50 mg Hydrocortisone Acetate (Anusol Hc) 25 mg RECTAL BID PRN PRN PRN Reason: Hemorrhoids Last Admin: 06/29/18 04:27 Dose: 25 mg Insulin Glargine (Lantus (Bkc)) 20 units SC DAILY [facility] Last Admin: 07/05/18 09:19 Dose: 20 units Insulin Glargine (Lantus (Bkc)) 5 units SC QHS [facility] Last Admin: 07/04/18 22:03 Dose: 5 units Insulin Human Lispro (Humalog Kwikpen (Bkc)) 0 unit SC ACHS [facility]; Protocol Last Admin: 07/05/18 07:53 Dose: Not Given Insulin Human Lispro (Humalog Kwikpen (Bkc)) 5 unit SC BID@1200,1700 [facility] Last Admin: 07/04/18 17:05 Dose: 5 units Insulin Human Lispro (Humalog Kwikpen (Bkc)) 4 unit SC DAILY@0700 [facility] Last Admin: 07/05/18 07:55 Dose: Not Given Losartan Potassium (Cozaar) 50 mg PO DAILY [facility] Last Admin: 07/05/18 09:23 Dose: 50 mg Magnesium Hydroxide (Milk Of Magnesia) 30 ml PO .PRN X 1 PRN PRN Reason: Constipation Menthol (Bengay Vanishing Scent) 1 applic TOPICAL TID PRN PRN PRN Reason: PAIN Last Admin: 06/27/18 10:32 Dose: 1 applic Montelukast Sodium (Singulair) 10 mg PO QHS [facility] Last Admin: 07/04/18 21:55 Dose: 10 mg Multivitamins/Minerals (Multivitamin With Minerals) 1 tablet PO DAILY@0800 [facility] Last Admin: 07/05/18 09:23 Dose: 1 tablet Ondansetron HCl (Zofran Odt) 4 mg PO Q8H PRN PRN PRN Reason: NAUSEA Last Admin: 06/27/18 05:46 Dose: 4 mg Oxycodone HCl (Oxyir) 5 mg PO Q6H PRN PRN PRN Reason: SEVERE PAIN (6-10/10) Last Admin: 06/27/18 01:47 Dose: 5 mg Pantoprazole Sodium (Protonix) 20 mg PO DAILY [facility] Last Admin: 07/05/18 09:24 Dose: 20 mg Prednisone () 60 mg PO DAILY@0800 [facility] Last Admin: 07/05/18 09:23 Dose: 60 mg Senna/Docusate Sodium (Senokot-S, Leti-Colace) 2 tablet PO BID [facility] Last Admin: 07/05/18 09:24 Dose: Not Given Sertraline HCl (Zoloft) 100 mg PO DAILY [facility] Last Admin: 07/05/18 09:24 Dose: 100 mg Sodium Chloride () 5 - 15 ml IV UD PRN PRN Reason: SALINE FLUSH Last Admin: 06/22/18 21:43 Dose: 10 ml Sodium Chloride () 5 - 15 ml IV UD PRN PRN Reason: SALINE FLUSH Medical Necessity - Tobacco Use Smoking Status: Never smoker Tobacco Use: Non-smoker Assessment/Plan All Active Problems Debility (Acute) Debility 2/2 rapidly progressive loss of function and LE weakness, complicated by DM II, Chronic Renal failure stage IV and obesity. Goal of rehab is uatsdin of functional independence. Plan: - Physical therapy for gait and balance - Occupational Therapy for ADLs - As needed analgesics - Bowel protocol - DVT prophylaxis: SCDs, ASA, Lovenox - DM type II - A1c 7.1 on admission, blood sugars ACHS, Moderate sliding scale, Lantus 30 units BID - Renal failure stage IV (Chronic) -Check BMP in 3 days, on d/c follow up appointment with Dr. 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 Lew concerning 24 hour urine results - Obtain serum protein levels = pending results - Ask Dr. Lew to review over patients steady increase in blood pressure despite being on several medications - Prednisone taper June 60mg daily, on July 20 start 50mg daily, on August 17 go to 40mg daily for two weeks, then change to 20mg daily, on September 17 decrease to 10mg daily. Will then address at follow visit with Neurology
--- NOTE | 2018-07-05 10:41 | PN.NEURO_ITS ---
Subjective: Patient seen and examined. No new complaints, tolerating therapy. Denies any blurry vision, SOB or chest pains. Tolerating diabetic diet, blood sugars have been stable. No issues with GI/. - Physical Exam General: Alert, Oriented x3, Cooperative HEENT: Atraumatic, PERRLA, EOMI, Normocephalic Neck: Supple, No JVD, Negative Carotid Bruits Lungs: Clear to auscultation, Normal air movement Cardiovascular: Regular rate, No murmurs Abdomen: Bowel Sounds Present, Soft, Non Tender Extremities: No edema, Capillary Refill Less than 3 Seconds Skin: No rashes, No breakdown Musculoskeletal: No Tenderness to Palpation of Joints or Extremities Neurological: Cranial nerves II-XII grossly intact Psych/Mental Status: Normal Affect, Appropriate, Alert and oriented to time, place, person, mood and affect Vital Signs Temp Pulse Resp BP Pulse Ox 97.6 F L 64 18 163/79 H 95 07/05/18 08:01 07/05/18 08:01 07/05/18 08:01 07/05/18 08:01 07/05/18 08:01 Oxygen Delivery Method Room Air Weight: 111.9 kg Body Mass Index (BMI) 44.7 Intake and Output for Last 24 Hours 07/03/18 07/04/18 07/05/18 23:59 23:59 23:59 Intake Total 120 / 120 960 / 960 Balance 120 / 120 960 / 960 Laboratory Tests Past 24 Hrs 06/28/18 15:37 Ur Total Protein 24 Hr 50734 H Urine Total Protein 480.4 Urine Albumin 70.1 U Nhyxo-5-Wfebvsxr 5.5 U Sbryr-2-Dpweugym 5.5 U Beta Globulin 13.3 U Gamma Globulin 5.7 U PEP M-Yuval Not Observed U PEP M-Yuval 24 Hr TNP Urine Immunofixation Comment Ur Immunofix PEP Note Comment POC Glucose 07/05/18 07/05/18 07/04/18 06:55 03:22 22:02 POC Glucose 77 123 H 173 H 07/04/18 07/04/18 16:10 11:50 POC Glucose 171 H 131 H Active Medications Acetaminophen (Tylenol) 650 mg PO Q8H PRN PRN PRN Reason: PAIN Last Admin: 06/27/18 05:46 Dose: 650 mg Amlodipine Besylate (Norvasc) 10 mg PO DAILY [facility] Last Admin: 07/05/18 09:24 Dose: 10 mg Atorvastatin Calcium (Lipitor) 20 mg PO QHS [facility] Last Admin: 07/04/18 21:55 Dose: 20 mg Bisacodyl (Dulcolax) 10 mg RECTAL .PRN X 1 PRN PRN Reason: Constipation Last Admin: 06/26/18 14:29 Dose: 10 mg Buspirone HCl (Buspar) 5 mg PO TID [facility] Last Admin: 07/05/18 06:58 Dose: 5 mg Calcium Carbonate (Os-Chinedu 500) 500 mg PO BIDCM [facility] Last Admin: 07/05/18 09:23 Dose: 500 mg Carvedilol (Coreg) 12.5 mg PO BID [facility] Last Admin: 07/05/18 09:23 Dose: 12.5 mg Collagenase (Santyl) 1 applic TOPICAL DAILY [facility]; Protocol Last Admin: 07/05/18 09:24 Dose: 1 applicatio Fenofibrate (Tricor) 145 mg PO DAILY [facility] Last Admin: 07/05/18 09:24 Dose: 145 mg Gabapentin (Neurontin) 300 mg PO QHS [facility] Last Admin: 07/04/18 21:55 Dose: 300 mg Heparin Sodium (Porcine) (Heparin Na) 5,000 unit SC Q12 [facility] Last Admin: 07/05/18 09:19 Dose: 5,000 unit Hydralazine HCl (Apresoline) 50 mg PO TID [facility] Last Admin: 07/05/18 06:57 Dose: 50 mg Hydrocortisone Acetate (Anusol Hc) 25 mg RECTAL BID PRN PRN PRN Reason: Hemorrhoids Last Admin: 06/29/18 04:27 Dose: 25 mg Insulin Glargine (Lantus (Bkc)) 20 units SC DAILY [facility] Last Admin: 07/05/18 09:19 Dose: 20 units Insulin Glargine (Lantus (Bkc)) 5 units SC QHS [facility] Last Admin: 07/04/18 22:03 Dose: 5 units Insulin Human Lispro (Humalog Kwikpen (Bkc)) 0 unit SC ACHS [facility]; Protocol Last Admin: 07/05/18 07:53 Dose: Not Given Insulin Human Lispro (Humalog Kwikpen (Bkc)) 5 unit SC BID@1200,1700 [facility] Last Admin: 07/04/18 17:05 Dose: 5 units Insulin Human Lispro (Humalog Kwikpen (Bkc)) 4 unit SC DAILY@0700 [facility] Last Admin: 07/05/18 07:55 Dose: Not Given Losartan Potassium (Cozaar) 50 mg PO DAILY [facility] Last Admin: 07/05/18 09:23 Dose: 50 mg Magnesium Hydroxide (Milk Of Magnesia) 30 ml PO .PRN X 1 PRN PRN Reason: Constipation Menthol (Bengay Vanishing Scent) 1 applic TOPICAL TID PRN PRN PRN Reason: PAIN Last Admin: 06/27/18 10:32 Dose: 1 applic Montelukast Sodium (Singulair) 10 mg PO QHS [facility] Last Admin: 07/04/18 21:55 Dose: 10 mg Multivitamins/Minerals (Multivitamin With Minerals) 1 tablet PO DAILY@0800 [facility] Last Admin: 07/05/18 09:23 Dose: 1 tablet Ondansetron HCl (Zofran Odt) 4 mg PO Q8H PRN PRN PRN Reason: NAUSEA Last Admin: 06/27/18 05:46 Dose: 4 mg Oxycodone HCl (Oxyir) 5 mg PO Q6H PRN PRN PRN Reason: SEVERE PAIN (6-10/10) Last Admin: 06/27/18 01:47 Dose: 5 mg Pantoprazole Sodium (Protonix) 20 mg PO DAILY [facility] Last Admin: 07/05/18 09:24 Dose: 20 mg Prednisone () 60 mg PO DAILY@0800 [facility] Last Admin: 07/05/18 09:23 Dose: 60 mg Senna/Docusate Sodium (Senokot-S, Leti-Colace) 2 tablet PO BID [facility] Last Admin: 07/05/18 09:24 Dose: Not Given Sertraline HCl (Zoloft) 100 mg PO DAILY [facility] Last Admin: 07/05/18 09:24 Dose: 100 mg Sodium Chloride () 5 - 15 ml IV UD PRN PRN Reason: SALINE FLUSH Last Admin: 06/22/18 21:43 Dose: 10 ml Sodium Chloride () 5 - 15 ml IV UD PRN PRN Reason: SALINE FLUSH Medical Necessity - Tobacco Use Smoking Status: Never smoker Tobacco Use: Non-smoker Assessment/Plan All Active Problems Debility (Acute) Debility 2/2 rapidly progressive loss of function and LE weakness, complicated by DM II, Chronic Renal failure stage IV and obesity. Goal of rehab is [facility] cath[facility] of functional independence. Plan: - Physical therapy for gait and balance - Occupational Therapy for ADLs - As needed analgesics - Bowel protocol - DVT prophylaxis: SCDs, ASA, Lovenox - DM type II - A1c 7.1 on admission, blood sugars ACHS, Moderate sliding scale, Lantus 30 units BID - Renal failure stage IV (Chronic) -Check BMP in 3 days, on d/c follow up appointment with Dr. 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 Lew concerning 24 hour urine results - Obtain serum protein levels = pending results - Ask Dr. Lew to review over patients steady increase in blood pressure despite being on several medications - Prednisone taper June 60mg daily, on July 20 start 50mg daily, on August 17 go to 40mg daily for two weeks, then change to 20mg daily, on September 17 decrease to 10mg daily. Will then address at follow visit with Neurology
[2018-07-05 11:51] LABS: Bedside Glucose 157 mg/dL (70-110)
[2018-07-05] MEDS: Insulin Lispro 100 UNIT/ML INSULN.PEN SC ×5 (12:35→22:13)
[2018-07-05 14:55] VITALS: PULSE 64
[2018-07-05 17:36] LABS: Bedside Glucose 228 mg/dL (70-110)
[2018-07-05 22:00] VITALS: BP 151/68; PULSE 70; RESP 16; TEMP 36.8; O2SAT 96
[2018-07-05 22:12] VITALS: PULSE 70
[2018-07-05] MEDS: Atorvastatin Calcium 20 MG Tablet PO (22:13)
[2018-07-05] MEDS: Montelukast 10 MG Tablet PO (22:14)
[2018-07-05] MEDS: Gabapentin 300 MG Capsule PO (22:14)
[2018-07-05] MEDS: Senna/Docusate Sodium 1 Tablet 2 TABLET PO (22:15)
[2018-07-05 22:30] LABS: Bedside Glucose 216 mg/dL (70-110)
--- NOTE | 2018-07-06 03:36 | NURSING ---
REVIEWED AND AGREE WITH MANAGER [employer]'S FIM AND HANDOFF CHARTING.
[2018-07-06 03:41] LABS: Bedside Glucose 130 mg/dL (70-110)
[2018-07-06 06:46] VITALS: PULSE 70
[2018-07-06] MEDS: hydrALAZINE 50 MG Tablet PO ×3 (06:46→23:01)
[2018-07-06] MEDS: busPIRone 5 MG Tablet PO ×3 (06:47→23:02)
[2018-07-06 07:05] LABS: Bedside Glucose 105 mg/dL (70-110)
--- NOTE | 2018-07-06 08:30 | CASEMGMT ---
Insurance Continued stay approved with next update due on 07/10/18. Auth#[id number] MERCY Villalba
[2018-07-06 09:11] VITALS: BP 155/93; PULSE 73; RESP 18; TEMP 36.6; O2SAT 98
[2018-07-06] MEDS: Insulin Lispro 100 UNIT/ML INSULN.PEN SC ×5 (09:14→23:02)
[2018-07-06] MEDS: Sertraline 100 MG Tablet PO (09:15)
[2018-07-06] MEDS: Senna/Docusate Sodium 1 Tablet 2 TABLET PO ×2 (09:15→23:03)
[2018-07-06] MEDS: Fenofibrate 145 MG Tablet PO (09:15)
[2018-07-06] MEDS: Heparin Injection (Vial) 5,000 UNIT/ML VIAL 5000 UNIT SC ×2 (09:16→23:02)
[2018-07-06] MEDS: amLODIPine 10 MG Tablet PO (09:16)
[2018-07-06] MEDS: Calcium (Elemental) 500 MG Tablet PO ×2 (09:16→16:30)
[2018-07-06] MEDS: Carvedilol 12.5 MG Tablet PO ×2 (09:16→23:02)
[2018-07-06] MEDS: Losartan Potassium 50 MG Tablet PO (09:16)
[2018-07-06] MEDS: Pantoprazole Sodium 20 MG Tablet PO (09:16)
[2018-07-06] MEDS: predniSONE 20 MG Tablet 60 MG PO (09:16)
[2018-07-06] MEDS: Multivitamins,Ther W-Minerals Tablet 1 TABLET PO (09:16)
[2018-07-06] MEDS: Collagenase 30gm Tube 1 APPLIC TOPICAL (09:17)
[2018-07-06 10:20] LABS: Bedside Glucose 172 mg/dL (70-110)
[2018-07-06 11:06] LABS: Bedside Glucose 131 mg/dL (70-110)
[2018-07-06 13:39] VITALS: BP 150/71; PULSE 71; RESP 18; O2SAT 98
[2018-07-06 13:40] VITALS: BP 150/71; PULSE 71
--- NOTE | 2018-07-06 15:03 | PCM.PN.HOSP ---
Subjective: Patient does not have much improvement in lower extremity strength. Has mild dorsiflexion and plantarflexion of right ankle, stronger than left ankle. Objective: General: Alert, Oriented x3, Cooperative HEENT: Atraumatic, PERRLA, EOMI, Normocephalic Neck: Supple, No JVD, Negative Carotid Bruits Lungs: Clear to auscultation, Normal air movement Cardiovascular: Regular rate, No murmurs Abdomen: Bowel Sounds Present, Soft, Non Tender, Non-Distended Extremities: No edema, Capillary Refill Less than 3 Seconds Skin: No rashes, No breakdown Musculoskeletal: No Tenderness to Palpation of Joints or Extremities Neurological: Cranial nerves II-XII grossly intact, Lower motor neuron bilateral lower extremity weakness, left lower more than right lower extremity. No urinary incontinence. Patient can hold right lower extremity for 1 second but left lower extremity drops immediately. Sensation of bladder fullness intact. Power 3/5. Psych/Mental Status: Normal Affect, Appropriate Vitals/I&O's: Vital Signs Temp Pulse Resp BP Pulse Ox 97.8 F 71 18 150/71 H 98 07/06/18 09:11 07/06/18 13:40 07/06/18 13:39 07/06/18 13:40 07/06/18 13:39 Oxygen Delivery Method Room Air Weight: 247 lb 9.266 oz Body Mass Index (BMI) 44.7 Intake and Output for Last 24 Hours 07/04/18 07/05/18 07/06/18 23:59 23:59 23:59 Intake Total 960 / 960 360 / 360 Balance 960 / 960 360 / 360 Laboratory Results 07/05/18 17:02: POC Glucose 228 H 07/05/18 22:11: POC Glucose 216 H 07/06/18 03:38: POC Glucose 130 H 07/06/18 06:49: POC Glucose 105 07/06/18 10:16: POC Glucose 172 H 07/06/18 11:00: POC Glucose 131 H Current Medications Acetaminophen (Tylenol) 650 mg PO Q8H PRN PRN PRN Reason: PAIN Last Admin: 06/27/18 05:46 Dose: 650 mg Amlodipine Besylate (Norvasc) 10 mg PO DAILY [facility] Last Admin: 07/06/18 09:16 Dose: 10 mg Atorvastatin Calcium (Lipitor) 20 mg PO QHS [facility] Last Admin: 07/05/18 22:13 Dose: 20 mg Bisacodyl (Dulcolax) 10 mg RECTAL .PRN X 1 PRN PRN Reason: Constipation Last Admin: 06/26/18 14:29 Dose: 10 mg Buspirone HCl (Buspar) 5 mg PO TID [facility] Last Admin: 07/06/18 13:40 Dose: 5 mg Calcium Carbonate (Os-Chinedu 500) 500 mg PO BIDCM [facility] Last Admin: 07/06/18 09:16 Dose: 500 mg Carvedilol (Coreg) 12.5 mg PO BID [facility] Last Admin: 07/06/18 09:16 Dose: 12.5 mg Collagenase (Santyl) 1 applic TOPICAL DAILY [facility]; Protocol Last Admin: 07/06/18 09:17 Dose: 1 applicatio Fenofibrate (Tricor) 145 mg PO DAILY [facility] Last Admin: 07/06/18 09:15 Dose: 145 mg Gabapentin (Neurontin) 300 mg PO QHS [facility] Last Admin: 07/05/18 22:14 Dose: 300 mg Heparin Sodium (Porcine) (Heparin Na) 5,000 unit SC Q12 [facility] Last Admin: 07/06/18 09:16 Dose: 5,000 unit Hydralazine HCl (Apresoline) 50 mg PO TID [facility] Last Admin: 07/06/18 13:40 Dose: 50 mg Hydrocortisone Acetate (Anusol Hc) 25 mg RECTAL BID PRN PRN PRN Reason: Hemorrhoids Last Admin: 06/29/18 04:27 Dose: 25 mg Insulin Glargine (Lantus (Bkc)) 20 units SC DAILY [facility] Last Admin: 07/06/18 09:13 Dose: 20 units Insulin Human Lispro (Humalog Kwikpen (Bkc)) 0 unit SC ACHS [facility]; Protocol Last Admin: 07/06/18 11:56 Dose: Not Given Insulin Human Lispro (Humalog Kwikpen (Bkc)) 5 unit SC BID@1200,1700 [facility] Last Admin: 07/06/18 12:00 Dose: 5 units Insulin Human Lispro (Humalog Kwikpen (Bkc)) 4 unit SC DAILY@0700 [facility] Last Admin: 07/06/18 09:14 Dose: 4 units Losartan Potassium (Cozaar) 50 mg PO DAILY [facility] Last Admin: 07/06/18 09:16 Dose: 50 mg Magnesium Hydroxide (Milk Of Magnesia) 30 ml PO .PRN X 1 PRN PRN Reason: Constipation Menthol (Bengay Vanishing Scent) 1 applic TOPICAL TID PRN PRN PRN Reason: PAIN Last Admin: 06/27/18 10:32 Dose: 1 applic Montelukast Sodium (Singulair) 10 mg PO QHS [facility] Last Admin: 07/05/18 22:14 Dose: 10 mg Multivitamins/Minerals (Multivitamin With Minerals) 1 tablet PO DAILY@0800 [facility] Last Admin: 07/06/18 09:16 Dose: 1 tablet Ondansetron HCl (Zofran Odt) 4 mg PO Q8H PRN PRN PRN Reason: NAUSEA Last Admin: 06/27/18 05:46 Dose: 4 mg Oxycodone HCl (Oxyir) 5 mg PO Q6H PRN PRN PRN Reason: SEVERE PAIN (6-10/10) Last Admin: 06/27/18 01:47 Dose: 5 mg Pantoprazole Sodium (Protonix) 20 mg PO DAILY [facility] Last Admin: 07/06/18 09:16 Dose: 20 mg Prednisone () 60 mg PO DAILY@0800 [facility] Last Admin: 07/06/18 09:16 Dose: 60 mg Senna/Docusate Sodium (Senokot-S, Leti-Colace) 2 tablet PO BID [facility] Last Admin: 07/06/18 09:15 Dose: 1 tablet Sertraline HCl (Zoloft) 100 mg PO DAILY [facility] Last Admin: 07/06/18 09:15 Dose: 100 mg Sodium Chloride () 5 - 15 ml IV UD PRN PRN Reason: SALINE FLUSH Last Admin: 06/22/18 21:43 Dose: 10 ml Sodium Chloride () 5 - 15 ml IV UD PRN PRN Reason: SALINE FLUSH Medical Necessity - Tobacco Use Smoking Status: Never smoker Tobacco Use: Non-smoker Assessment/Plan All Active Problems Debility (Acute) This is a 58-year-old female who was admitted to rehab from acute care, [facility] for acute worsening on chronic paraplegia 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 NCS reported to show demyelinating disease with conduction block consistent with CIDP. She had detailed workup including small vessel vasculitis disease, negative so far. 1. CIDP -patient had Solu-Medrol 1 g daily for 5 days during acute care and in rehab on prednisone 60 mg daily. Bowel and bladder care. 2. Hypertension: Blood pressure is controlled on 25 mg losartan daily. On hydralazine 50 mg 3 times daily 3. Diabetes mellitus type 2: Patient is on Humalog insulin and Lantus. Blood sugar is well controlled. 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 4. stage IV CRF -seen by Dr. Lew. Preparation for AV fistula. Kidney function is stable at 2.35-2.5- has been seen by Dr. Payan. 5. Nephrotic range proteinuria Dyslipidemia: Total cholesterol 225, LDL 129, TG 250, VLDL 50, HDL 46. Patient on atorvastatin 20 mg at bedtime and fenofibrate 145 mg daily. Recommend discontinuation of TriCor as patient has bilateral lower extremity weakness. Active Medications Acetaminophen (Tylenol) 650 mg PO Q8H PRN PRN PRN Reason: PAIN Last Admin: 06/27/18 05:46 Dose: 650 mg Amlodipine Besylate (Norvasc) 10 mg PO DAILY [facility] Last Admin: 07/07/18 07:56 Dose: 10 mg Atorvastatin Calcium (Lipitor) 20 mg PO QHS [facility] Last Admin: 07/06/18 23:02 Dose: 20 mg Bisacodyl (Dulcolax) 10 mg RECTAL .PRN X 1 PRN PRN Reason: Constipation Last Admin: 06/26/18 14:29 Dose: 10 mg Buspirone HCl (Buspar) 5 mg PO TID [facility] Last Admin: 07/07/18 13:36 Dose: 5 mg [facility] Last Admin: 07/07/18 17:19 Dose: 500 mg Carvedilol (Coreg) 25 mg PO BID [facility] Collagenase (Santyl) 1 applic TOPICAL DAILY [facility]; Protocol Last Admin: 07/07/18 07:58 Dose: 1 applicatio Fenofibrate (Tricor) 145 mg PO DAILY [facility] Last Admin: 07/07/18 07:56 Dose: 145 mg Gabapentin (Neurontin) 300 mg PO QHS [facility] Last Admin: 07/06/18 23:02 Dose: 300 mg Heparin Sodium (Porcine) (Heparin Na) 5,000 unit SC Q12 [facility] Last Admin: 07/07/18 07:57 Dose: 5,000 unit Hydralazine HCl (Apresoline) 50 mg PO TID [facility] Last Admin: 07/07/18 13:36 Dose: 50 mg Hydrocortisone Acetate (Anusol Hc) 25 mg RECTAL BID PRN PRN PRN Reason: Hemorrhoids Last Admin: 06/29/18 04:27 Dose: 25 mg Insulin Glargine (Lantus (Bkc)) 20 units SC DAILY [facility] Last Admin: 07/07/18 07:58 Dose: 20 units Insulin Human Lispro (Humalog Kwikpen (Bkc)) 0 unit SC ACHS [facility]; Protocol Last Admin: 07/07/18 17:19 Dose: 3 u Insulin Human Lispro (Humalog Kwikpen (Bkc)) 5 unit SC BID@1200,1700 [facility] Last Admin: 07/07/18 17:19 Dose: 5 units Insulin Human Lispro (Humalog Kwikpen (Bkc)) 4 unit SC DAILY@0700 [facility] Last Admin: 07/07/18 07:57 Dose: 4 units Losartan Potassium (Cozaar) 50 mg PO DAILY [facility] Last Admin: 07/07/18 07:57 Dose: 50 mg Magnesium Hydroxide (Milk Of Magnesia) 30 ml PO .PRN X 1 PRN PRN Reason: Constipation Menthol (Bengay Vanishing Scent) 1 applic TOPICAL TID PRN PRN PRN Reason: PAIN Last Admin: 06/27/18 10:32 Dose: 1 applic Montelukast Sodium (Singulair) 10 mg PO QHS [facility] Last Admin: 07/06/18 23:03 Dose: 10 mg Multivitamins/Minerals (Multivitamin With Minerals) 1 tablet PO DAILY@0800 [facility] Last Admin: 07/07/18 07:57 Dose: 1 tablet Ondansetron HCl (Zofran Odt) 4 mg PO Q8H PRN PRN PRN Reason: NAUSEA Last Admin: 06/27/18 05:46 Dose: 4 mg Oxycodone HCl (Oxyir) 5 mg PO Q6H PRN PRN PRN Reason: SEVERE PAIN (6-10/10) Last Admin: 06/27/18 01:47 Dose: 5 mg Pantoprazole Sodium (Protonix) 20 mg PO DAILY [facility] Last Admin: 07/07/18 07:56 Dose: 20 mg Prednisone () 60 mg PO DAILY@0800 [facility] Last Admin: 07/07/18 07:57 Dose: 60 mg Senna/Docusate Sodium (Senokot-S, Leti-Colace) 2 tablet PO BID [facility] Last Admin: 07/07/18 13:38 Dose: Not Given Sertraline HCl (Zoloft) 100 mg PO DAILY [facility] Last Admin: 07/07/18 07:57 Dose: 100 mg Sodium Chloride () 5 - 15 ml IV UD PRN PRN Reason: SALINE FLUSH Last Admin: 06/22/18 21:43 Dose: 10 ml Sodium Chloride () 5 - 15 ml IV UD PRN PRN Reason: SALINE FLUSH Code Visit Inpatient E&M: 34448 Subs Hosp L2
[2018-07-06 17:11] LABS: Bedside Glucose 275 mg/dL (70-110)
[2018-07-06 22:00] VITALS: BP 142/73; PULSE 71; RESP 16; TEMP 36.7; O2SAT 96
[2018-07-06 22:06] LABS: Bedside Glucose 265 mg/dL (70-110)
[2018-07-06 23:01] VITALS: PULSE 71
[2018-07-06] MEDS: Gabapentin 300 MG Capsule PO (23:02)
[2018-07-06] MEDS: Atorvastatin Calcium 20 MG Tablet PO (23:02)
[2018-07-06] MEDS: Montelukast 10 MG Tablet PO (23:03)
[2018-07-07 03:46] LABS: Bedside Glucose 160 mg/dL (70-110)
[2018-07-07 05:54] VITALS: BP 168/77; PULSE 66
[2018-07-07] MEDS: busPIRone 5 MG Tablet PO ×3 (05:54→22:39)
[2018-07-07] MEDS: hydrALAZINE 50 MG Tablet PO ×3 (05:54→22:40)
[2018-07-07 07:00] VITALS: BP 168/77; PULSE 68; RESP 18; TEMP 36.2; O2SAT 99
[2018-07-07 07:21] LABS: Bedside Glucose 89 mg/dL (70-110)
[2018-07-07] MEDS: Pantoprazole Sodium 20 MG Tablet PO (07:56)
[2018-07-07] MEDS: amLODIPine 10 MG Tablet PO (07:56)
[2018-07-07] MEDS: Fenofibrate 145 MG Tablet PO (07:56)
[2018-07-07] MEDS: Heparin Injection (Vial) 5,000 UNIT/ML VIAL 5000 UNIT SC ×2 (07:57→22:39)
[2018-07-07] MEDS: Insulin Lispro 100 UNIT/ML INSULN.PEN SC ×6 (07:57→22:39)
[2018-07-07] MEDS: Sertraline 100 MG Tablet PO (07:57)
[2018-07-07] MEDS: Carvedilol 12.5 MG Tablet PO (07:57)
[2018-07-07] MEDS: Losartan Potassium 50 MG Tablet PO (07:57)
[2018-07-07] MEDS: Calcium (Elemental) 500 MG Tablet PO ×2 (07:57→17:19)
[2018-07-07] MEDS: predniSONE 20 MG Tablet 60 MG PO (07:57)
[2018-07-07] MEDS: Multivitamins,Ther W-Minerals Tablet 1 TABLET PO (07:57)
[2018-07-07] MEDS: Collagenase 30gm Tube 1 APPLIC TOPICAL (07:58)
[2018-07-07] MEDS: Senna/Docusate Sodium 1 Tablet 2 TABLET PO (08:03)
[2018-07-07 12:01] LABS: Bedside Glucose 196 mg/dL (70-110)
[2018-07-07 13:36] VITALS: BP 136/70; PULSE 70
[2018-07-07 17:11] LABS: Bedside Glucose 172 mg/dL (70-110)
[2018-07-07 21:06] VITALS: BP 131/80; PULSE 70; RESP 18; TEMP 36.6; O2SAT 95
[2018-07-07 21:50] LABS: Bedside Glucose 201 mg/dL (70-110)
[2018-07-07 22:37] VITALS: BP 144/67; PULSE 71
[2018-07-07] MEDS: Atorvastatin Calcium 20 MG Tablet PO (22:38)
[2018-07-07] MEDS: Montelukast 10 MG Tablet PO (22:38)
[2018-07-07] MEDS: Carvedilol 25 MG Tablet PO (22:39)
[2018-07-07 22:40] VITALS: BP 144/67; PULSE 71
[2018-07-07] MEDS: Gabapentin 300 MG Capsule PO (22:54)
[2018-07-08 03:06] LABS: Bedside Glucose 151 mg/dL (70-110)
[2018-07-08 06:36] VITALS: BP 152/62; PULSE 76
[2018-07-08 06:38] VITALS: BP 152/62; PULSE 76
[2018-07-08] MEDS: hydrALAZINE 50 MG Tablet PO ×3 (06:38→20:59)
[2018-07-08] MEDS: busPIRone 5 MG Tablet PO ×3 (06:38→20:59)
[2018-07-08 06:56] LABS: Bedside Glucose 100 mg/dL (70-110)
[2018-07-08 07:04] VITALS: BP 152/62; PULSE 76; RESP 16; TEMP 36.7; O2SAT 99
[2018-07-08] MEDS: Insulin Lispro 100 UNIT/ML INSULN.PEN SC ×5 (08:01→20:57)
[2018-07-08] MEDS: predniSONE 20 MG Tablet 60 MG PO (08:02)
[2018-07-08] MEDS: Losartan Potassium 50 MG Tablet PO (08:02)
[2018-07-08] MEDS: amLODIPine 10 MG Tablet PO (08:02)
[2018-07-08] MEDS: Multivitamins,Ther W-Minerals Tablet 1 TABLET PO (08:03)
[2018-07-08] MEDS: Pantoprazole Sodium 20 MG Tablet PO (08:03)
[2018-07-08] MEDS: Fenofibrate 145 MG Tablet PO (08:03)
[2018-07-08] MEDS: Heparin Injection (Vial) 5,000 UNIT/ML VIAL 5000 UNIT SC ×2 (08:05→20:59)
[2018-07-08] MEDS: Calcium (Elemental) 500 MG Tablet PO ×2 (08:05→17:10)
[2018-07-08] MEDS: Carvedilol 25 MG Tablet PO ×2 (08:09→20:59)
[2018-07-08] MEDS: Sertraline 100 MG Tablet PO (08:09)
[2018-07-08] MEDS: Collagenase 30gm Tube 1 APPLIC TOPICAL (08:11)
[2018-07-08 12:35] LABS: Bedside Glucose 120 mg/dL (70-110)
--- NOTE | 2018-07-08 13:23 | PN_ITS ---
Subjective: Patient is motivated with physical therapy. No new complaint. Vitals/I&O's: Vital Signs Temp Pulse Resp BP Pulse Ox 98.0 F 76 16 152/62 H 99 07/08/18 07:04 07/08/18 07:04 07/08/18 07:04 07/08/18 07:04 07/08/18 07:04 Oxygen Delivery Method Room Air Weight: 247 lb 9.266 oz Body Mass Index (BMI) 44.7 Intake and Output for Last 24 Hours 07/06/18 07/07/18 07/08/18 23:59 23:59 23:59 Intake Total 360 / 360 840 / 840 240 / 240 Balance 360 / 360 840 / 840 240 / 240 Laboratory Results 07/07/18 16:53: POC Glucose 172 H 07/07/18 21:42: POC Glucose 201 H 07/08/18 03:02: POC Glucose 151 H 07/08/18 06:32: POC Glucose 100 07/08/18 12:21: POC Glucose 120 H Current Medications Acetaminophen (Tylenol) 650 mg PO Q8H PRN PRN PRN Reason: PAIN Last Admin: 06/27/18 05:46 Dose: 650 mg Amlodipine Besylate (Norvasc) 10 mg PO DAILY [facility] Last Admin: 07/08/18 08:02 Dose: 10 mg Atorvastatin Calcium (Lipitor) 20 mg PO QHS [facility] Last Admin: 07/07/18 22:38 Dose: 20 mg Bisacodyl (Dulcolax) 10 mg RECTAL .PRN X 1 PRN PRN Reason: Constipation Last Admin: 06/26/18 14:29 Dose: 10 mg Buspirone HCl (Buspar) 5 mg PO TID [facility] Last Admin: 07/08/18 06:38 Dose: 5 mg Calcium Carbonate (Os-Chinedu 500) 500 mg PO BIDCM [facility] Last Admin: 07/08/18 08:05 Dose: 500 mg Carvedilol (Coreg) 25 mg PO BID [facility] Last Admin: 07/08/18 08:09 Dose: 25 mg Collagenase (Santyl) 1 applic TOPICAL DAILY [facility]; Protocol Last Admin: 07/08/18 08:11 Dose: 1 applicatio Fenofibrate (Tricor) 145 mg PO DAILY [facility] Last Admin: 07/08/18 08:03 Dose: 145 mg Gabapentin (Neurontin) 300 mg PO QHS [facility] Last Admin: 07/07/18 22:54 Dose: 300 mg Heparin Sodium (Porcine) (Heparin Na) 5,000 unit SC Q12 [facility] Last Admin: 07/08/18 08:05 Dose: 5,000 unit Hydralazine HCl (Apresoline) 50 mg PO TID [facility] Last Admin: 07/08/18 06:38 Dose: 50 mg Hydrocortisone Acetate (Anusol Hc) 25 mg RECTAL BID PRN PRN PRN Reason: Hemorrhoids Last Admin: 06/29/18 04:27 Dose: 25 mg Insulin Glargine (Lantus (Bkc)) 20 units SC DAILY [facility] Last Admin: 07/08/18 10:29 Dose: 20 units Insulin Human Lispro (Humalog Kwikpen (Bkc)) 0 unit SC ACHS [facility]; Protocol Last Admin: 07/08/18 12:38 Dose: Not Given Insulin Human Lispro (Humalog Kwikpen (Bkc)) 5 unit SC BID@1200,1700 [facility] Last Admin: 07/08/18 12:37 Dose: 5 units Insulin Human Lispro (Humalog Kwikpen (Bkc)) 4 unit SC DAILY@0700 [facility] Last Admin: 07/08/18 08:01 Dose: 4 units Losartan Potassium (Cozaar) 50 mg PO DAILY [facility] Last Admin: 07/08/18 08:02 Dose: 50 mg Magnesium Hydroxide (Milk Of Magnesia) 30 ml PO .PRN X 1 PRN PRN Reason: Constipation Menthol (Bengay Vanishing Scent) 1 applic TOPICAL TID PRN PRN PRN Reason: PAIN Last Admin: 06/27/18 10:32 Dose: 1 applic Montelukast Sodium (Singulair) 10 mg PO QHS [facility] Last Admin: 07/07/18 22:38 Dose: 10 mg Multivitamins/Minerals (Multivitamin With Minerals) 1 tablet PO DAILY@0800 [facility] Last Admin: 07/08/18 08:03 Dose: 1 tablet Ondansetron HCl (Zofran Odt) 4 mg PO Q8H PRN PRN PRN Reason: NAUSEA Last Admin: 06/27/18 05:46 Dose: 4 mg Oxycodone HCl (Oxyir) 5 mg PO Q6H PRN PRN PRN Reason: SEVERE PAIN (6-10/10) Last Admin: 06/27/18 01:47 Dose: 5 mg Pantoprazole Sodium (Protonix) 20 mg PO DAILY [facility] Last Admin: 07/08/18 08:03 Dose: 20 mg Prednisone () 60 mg PO DAILY@0800 [facility] Last Admin: 07/08/18 08:02 Dose: 60 mg Senna/Docusate Sodium (Senokot-S, Leti-Colace) 2 tablet PO BID [facility] Last Admin: 07/08/18 08:07 Dose: Not Given Sertraline HCl (Zoloft) 100 mg PO DAILY [facility] Last Admin: 07/08/18 08:09 Dose: 100 mg Sodium Chloride () 5 - 15 ml IV UD PRN PRN Reason: SALINE FLUSH Last Admin: 06/22/18 21:43 Dose: 10 ml Sodium Chloride () 5 - 15 ml IV UD PRN PRN Reason: SALINE FLUSH Medical Necessity - Tobacco Use Smoking Status: Never smoker Tobacco Use: Non-smoker Assessment/Plan All Active Problems Debility (Acute) This is a 58-year-old [facility]ia 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 NCS reported to show demyelinating disease with conduction block consistent with CIDP. She had detailed workup including small vessel vasculitis disease, negative so far. 1. CIDP -patient had Solu-Medrol 1 g daily for 5 days during acute care and in rehab on prednisone 60 mg daily. Bowel and bladder care. 2. Hypertension: Blood pressure is controlled on 25 mg losartan daily. On hydralazine 50 mg 3 times daily 3. Diabetes mellitus type 2: Patient is on Humalog insulin and Lantus. Blood sugar is well controlled. 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 4. stage IV CRF -seen by Dr. Lew. Preparation for AV fistula. Kidney function is stable at 2.35-2.5- has been seen by Dr. Payan. 5. Nephrotic range proteinuria Dyslipidemia: Total cholesterol 225, LDL 129, TG 250, VLDL 50, HDL 46. Patient on atorvastatin 20 mg at bedtime and fenofibrate 145 mg daily. Recommend discontinuation of TriCor as patient has bilateral lower extremity weakness and in my opinion, does not required 2 hypolipidemic agent. Active Medications Acetaminophen (Tylenol) 650 mg PO Q8H PRN PRN PRN Reason: PAIN Last Admin: 06/27/18 05:46 Dose: 650 mg Amlodipine Besylate (Norvasc) 10 mg PO DAILY [facility] Last Admin: 07/08/18 08:02 Dose: 10 mg Atorvastatin Calcium (Lipitor) 20 mg PO QHS [facility] Last Admin: 07/07/18 22:38 Dose: 20 mg Bisacodyl (Dulcolax) 10 mg RECTAL .PRN X 1 PRN PRN Reason: Constipation Last Admin: 06/26/18 14:29 Dose: 10 mg Buspirone HCl (Buspar) 5 mg PO TID [facility] Last Admin: 07/08/18 06:38 Dose: 5 mg Calcium Carbonate (Os-Chinedu 500) [facility] Last Admin: 07/08/18 08:05 Dose: 500 mg Carvedilol (Coreg) 25 mg PO BID [facility] Last Admin: 07/08/18 08:09 Dose: 25 mg Collagenase (Santyl) 1 applic TOPICAL DAILY [facility]; Protocol Last Admin: 07/08/18 08:11 Dose: 1 applicatio Fenofibrate (Tricor) 145 mg PO DAILY [facility] Last Admin: 07/08/18 08:03 Dose: 145 mg Gabapentin (Neurontin) 300 mg PO QHS [facility] Last Admin: 07/07/18 22:54 Dose: 300 mg Heparin Sodium (Porcine) (Heparin Na) 5,000 unit SC Q12 [facility] Last Admin: 07/08/18 08:05 Dose: 5,000 unit Hydralazine HCl (Apresoline) 50 mg PO TID [facility] Last Admin: 07/08/18 06:38 Dose: 50 mg Hydrocortisone Acetate (Anusol Hc) 25 mg RECTAL BID PRN PRN PRN Reason: Hemorrhoids Last Admin: 06/29/18 04:27 Dose: 25 mg Insulin Glargine (Lantus (Bkc)) 20 units SC DAILY [facility] Last Admin: 07/08/18 10:29 Dose: 20 units Insulin Human Lispro (Humalog Kwikpen (Bkc)) 0 unit SC ACHS [facility]; Protocol Last Admin: 07/08/18 12:38 Dose: Not Given Insulin Human Lispro (Humalog Kwikpen (Bkc)) 5 unit SC BID@1200,1700 [facility] Last Admin: 07/08/18 12:37 Dose: 5 units Insulin Human Lispro (Humalog Kwikpen (Bkc)) 4 unit SC DAILY@0700 [facility] Last Admin: 07/08/18 08:01 Dose: 4 units Losartan Potassium (Cozaar) 50 mg PO DAILY [facility] Last Admin: 07/08/18 08:02 Dose: 50 mg Magnesium Hydroxide (Milk Of Magnesia) 30 ml PO .PRN X 1 PRN PRN Reason: Constipation Menthol (Bengay Vanishing Scent) 1 applic TOPICAL TID PRN PRN PRN Reason: PAIN Last Admin: 06/27/18 10:32 Dose: 1 applic Montelukast Sodium (Singulair) 10 mg PO QHS [facility] Last Admin: 07/07/18 22:38 Dose: 10 mg Multivitamins/Minerals (Multivitamin With Minerals) 1 tablet PO DAILY@0800 [facility] Last Admin: 07/08/18 08:03 Dose: 1 tablet Ondansetron HCl (Zofran Odt) 4 mg PO Q8H PRN PRN PRN Reason: NAUSEA Last Admin: 06/27/18 05:46 Dose: 4 mg Oxycodone HCl (Oxyir) 5 mg PO Q6H PRN PRN PRN Reason: SEVERE PAIN (6-10/10) Last Admin: 06/27/18 01:47 Dose: 5 mg Pantoprazole Sodium (Protonix) 20 mg PO DAILY [facility] Last Admin: 07/08/18 08:03 Dose: 20 mg Prednisone () 60 mg PO DAILY@0800 [facility] Last Admin: 07/08/18 08:02 Dose: 60 mg Senna/Docusate Sodium (Senokot-S, Leti-Colace) 2 tablet PO BID [facility] Last Admin: 07/08/18 08:07 Dose: Not Given Sertraline HCl (Zoloft) 100 mg PO DAILY [facility] Last Admin: 07/08/18 08:09 Dose: 100 mg Sodium Chloride () 5 - 15 ml IV UD PRN PRN Reason: SALINE FLUSH Last Admin: 06/22/18 21:43 Dose: 10 ml Sodium Chloride () 5 - 15 ml IV UD PRN PRN Reason: SALINE FLUSH Code Visit Inpatient E&M: 51375 Subs Hosp L2
[2018-07-08 14:38] VITALS: PULSE 78
[2018-07-08 17:21] LABS: Bedside Glucose 205 mg/dL (70-110)
[2018-07-08 19:31] VITALS: BP 134/73; PULSE 74; RESP 18; TEMP 36.6; O2SAT 95
[2018-07-08] MEDS: Montelukast 10 MG Tablet PO (20:56)
[2018-07-08] MEDS: Senna/Docusate Sodium 1 Tablet 2 TABLET PO (20:56)
[2018-07-08] MEDS: Atorvastatin Calcium 20 MG Tablet PO (20:57)
[2018-07-08] MEDS: Gabapentin 300 MG Capsule PO (20:57)
[2018-07-08 20:59] VITALS: BP 134/7; PULSE 74
[2018-07-08 21:56] LABS: Bedside Glucose 247 mg/dL (70-110)
[2018-07-09 02:56] LABS: Bedside Glucose 197 mg/dL (70-110)
[2018-07-09 06:27] LABS: Albumin, Serum 2.1 g/dL (3.2-5.0); BUN 83 mg/dL (7-18); BUN/Creat Ratio 31.1 RATIO (10-20); Calcium,Total 8.1 mg/dL (8.5-10.1); Chloride 111 mmol/L (98-107); Creatinine, Serum 2.67 mg/dL (0.55-1.02); EST Glomerular Filtration Rate 20 mL/min (>60); Est Glom Filt Rate - Afr Amer 24 mL/min (>60); Estimated Creatinine Clearance 18.61 ml/min; Glucose 175 mg/dL (74-106); Phosphorus 2.9 mg/dL (2.5-4.9); Potassium 4.5 mmol/L (3.5-5.1); Sodium Level 144 mmol/L (136-145)
[2018-07-09 06:42] VITALS: BP 155/91; PULSE 68
[2018-07-09] MEDS: hydrALAZINE 50 MG Tablet PO ×3 (06:42→21:50)
[2018-07-09] MEDS: busPIRone 5 MG Tablet PO ×3 (06:42→21:52)
[2018-07-09 07:06] LABS: Bedside Glucose 162 mg/dL (70-110)
[2018-07-09 07:17] VITALS: BP 155/91; PULSE 68; RESP 20; TEMP 36.5; O2SAT 98
[2018-07-09] MEDS: Losartan Potassium 50 MG Tablet PO (08:17)
[2018-07-09] MEDS: Multivitamins,Ther W-Minerals Tablet 1 TABLET PO (08:17)
[2018-07-09] MEDS: Sertraline 100 MG Tablet PO (08:17)
[2018-07-09] MEDS: amLODIPine 10 MG Tablet PO (08:17)
[2018-07-09] MEDS: Calcium (Elemental) 500 MG Tablet PO ×2 (08:17→17:51)
[2018-07-09] MEDS: Pantoprazole Sodium 20 MG Tablet PO (08:17)
[2018-07-09] MEDS: Heparin Injection (Vial) 5,000 UNIT/ML VIAL 5000 UNIT SC ×2 (08:18→21:52)
[2018-07-09] MEDS: Carvedilol 25 MG Tablet PO ×2 (08:18→21:51)
[2018-07-09] MEDS: predniSONE 20 MG Tablet 60 MG PO (08:18)
[2018-07-09] MEDS: Insulin Lispro 100 UNIT/ML INSULN.PEN SC ×7 (08:19→21:55)
[2018-07-09] MEDS: Senna/Docusate Sodium 1 Tablet 2 TABLET PO ×2 (08:21→21:50)
[2018-07-09] MEDS: Collagenase 30gm Tube 1 APPLIC TOPICAL (08:21)
--- NOTE | 2018-07-09 12:15 | CASEMGMT ---
Team meeting held. Patient present as well as patient daughter (via speaker phone). No discharge date set at this time. Patient to continue with further care and treatment on the Inpatient Rehab Unit. Patient with insurance update due on 07/10/18. Patient plans to transition to a care home facility and the Transitional Care Unit is the first choice, in the event that continued stay is denied by insurance. Support given. Telephone call to the [facility]. This social work nurse placing patient name on list, but there is no discharge date set at this time. Will continue to follow. [facility]
[2018-07-09 12:20] LABS: Bedside Glucose 229 mg/dL (70-110)
--- NOTE | 2018-07-09 13:32 | PCM.PN.NEU ---
Subjective: Staffed in team meeting. Family on the phone, questions addressed and answered. With physical therapy, she has more movement in her left thigh with greater ROM in the right leg. She has more SOB with wheel chair mobility now then before. She is able to transfer using sliding board with an assist of one when going up a slant versus at stand by on flat surface. She is able to director independent the parallel bars for a solid 2 minutes before becoming fatigued. With Occupational therapy, she requires 2 people to get into the shower, and she is moderate assist with bathing. With toileting she is able to manage getting her clothes down, shifting her weight from side to side, she does have difficulty pulling her clothes back up. With Nursing, her blood sugar and vital signs are stable. She does snore when sleeping, will schedule a sleep study as an outpatient. The plan will be to re-team her again next Monday07/16/18. - Physical Exam General: Alert, Oriented x3, Cooperative HEENT: Atraumatic, PERRLA, EOMI, Normocephalic Neck: Supple, No JVD, Negative Carotid Bruits Lungs: Clear to auscultation, Normal air movement Cardiovascular: Regular rate, No murmurs Abdomen: Bowel Sounds Present, Soft, Non Tender Extremities: No edema, Capillary Refill Less than 3 Seconds Skin: No rashes, No breakdown Musculoskeletal: No Tenderness to Palpation of Joints or Extremities Neurological: Cranial nerves II-XII grossly intact Psych/Mental Status: Normal Affect, Appropriate, Alert and oriented to time, place, person, mood and affect Vital Signs Temp Pulse Resp BP Pulse Ox 97.7 F L 68 20 H 155/91 H 98 07/09/18 07:17 07/09/18 07:17 07/09/18 07:17 07/09/18 07:17 07/09/18 07:17 Oxygen Delivery Method Room Air Weight: 112.3 kg Body Mass Index (BMI) 44.7 Intake and Output for Last 24 Hours 07/07/18 07/08/18 07/09/18 23:59 23:59 23:59 Intake Total 840 / 840 720 / 720 440 / 440 Balance 840 / 840 720 / 720 440 / 440 Laboratory Tests Past 24 Hrs 07/09/18 05:15 Sodium 144 Potassium 4.5 Chloride 111 H Carbon Dioxide 23.0 BUN 83 H Creatinine 2.67 H Estim Creat Clear Calc 18.61 Est GFR (MDRD) Af Amer 24 L Est GFR (MDRD) Non-Af 20 L BUN/Creatinine Ratio 31.1 H Glucose 175 H Calcium 8.1 L Phosphorus 2.9 Albumin 2.1 L POC Glucose 07/09/18 07/09/18 07/09/18 11:14 06:41 02:50 POC Glucose 229 H 162 H 197 H 07/08/18 07/08/18 20:54 17:08 POC Glucose 247 H 205 H Active Medications Acetaminophen (Tylenol) 650 mg PO Q8H PRN PRN PRN Reason: PAIN Last Admin: 06/27/18 05:46 Dose: 650 mg Amlodipine Besylate (Norvasc) 10 mg PO DAILY [facility] Last Admin: 07/09/18 08:17 Dose: 10 mg Atorvastatin Calcium (Lipitor) 20 mg PO QHS [facility] Last Admin: 07/08/18 20:57 Dose: 20 mg Bisacodyl (Dulcolax) 10 mg RECTAL .PRN X 1 PRN PRN Reason: Constipation Last Admin: 06/26/18 14:29 Dose: 10 mg Buspirone HCl (Buspar) 5 mg PO TID [facility] Last Admin: 07/09/18 13:33 Dose: 5 mg [facility]u [facility] Last Admin: 07/09/18 08:17 Dose: 500 mg Carvedilol (Coreg) 25 mg PO BID [facility] Last Admin: 07/09/18 08:18 Dose: 25 mg Collagenase (Santyl) 1 applic TOPICAL DAILY [facility]; Protocol Last Admin: 07/09/18 08:21 Dose: 1 applicatio Gabapentin (Neurontin) 300 mg PO QHS [facility] Last Admin: 07/08/18 20:57 Dose: 300 mg Heparin Sodium (Porcine) (Heparin Na) 5,000 unit SC Q12 [facility] Last Admin: 07/09/18 08:18 Dose: 5,000 unit Hydralazine HCl (Apresoline) 50 mg PO TID [facility] Last Admin: 07/09/18 13:37 Dose: 50 mg Hydrocortisone Acetate (Anusol Hc) 25 mg RECTAL BID PRN PRN PRN Reason: Hemorrhoids Last Admin: 06/29/18 04:27 Dose: 25 mg Insulin Glargine (Lantus (Bkc)) 20 units SC DAILY [facility] Last Admin: 07/09/18 11:19 Dose: 20 units Insulin Human Lispro (Humalog Kwikpen (Bkc)) 0 unit SC ACHS [facility]; Protocol Last Admin: 07/09/18 13:33 Dose: 6 u Insulin Human Lispro (Humalog Kwikpen (Bkc)) 5 unit SC BID@1200,1700 [facility] Last Admin: 07/09/18 13:34 Dose: 5 units Insulin Human Lispro (Humalog Kwikpen (Bkc)) 4 unit SC DAILY@0700 [facility] Last Admin: 07/09/18 08:20 Dose: 4 units Losartan Potassium (Cozaar) 50 mg PO DAILY [facility] Last Admin: 07/09/18 08:17 Dose: 50 mg Magnesium Hydroxide (Milk Of Magnesia) 30 ml PO .PRN X 1 PRN PRN Reason: Constipation Menthol (Bengay Vanishing Scent) 1 applic TOPICAL TID PRN PRN PRN Reason: PAIN Last Admin: 06/27/18 10:32 Dose: 1 applic Montelukast Sodium (Singulair) 10 mg PO QHS [facility] Last Admin: 07/08/18 20:56 Dose: 10 mg Multivitamins/Minerals (Multivitamin With Minerals) 1 tablet PO DAILY@0800 [facility] Last Admin: 07/09/18 08:17 Dose: 1 tablet Ondansetron HCl (Zofran Odt) 4 mg PO Q8H PRN PRN PRN Reason: NAUSEA Last Admin: 06/27/18 05:46 Dose: 4 mg Oxycodone HCl (Oxyir) 5 mg PO Q6H PRN PRN PRN Reason: SEVERE PAIN (6-10/10) Last Admin: 06/27/18 01:47 Dose: 5 mg Pantoprazole Sodium (Protonix) 20 mg PO DAILY [facility] Last Admin: 07/09/18 08:17 Dose: 20 mg Prednisone () 60 mg PO DAILY@0800 [facility] Last Admin: 07/09/18 08:18 Dose: 60 mg Senna/Docusate Sodium (Senokot-S, Leti-Colace) 2 tablet PO BID [facility] Last Admin: 07/09/18 08:21 Dose: 1 tablet Sertraline HCl (Zoloft) 100 mg PO DAILY [facility] Last Admin: 07/09/18 08:17 Dose: 100 mg Sodium Chloride () 5 - 15 ml IV UD PRN PRN Reason: SALINE FLUSH Last Admin: 06/22/18 21:43 Dose: 10 ml Sodium Chloride () 5 - 15 ml IV UD PRN PRN Reason: SALINE FLUSH Medical Necessity - Tobacco Use Smoking Status: Never smoker Tobacco Use: Non-smoker Assessment/Plan All Active Problems Debility (Acute) Debility 2/2 rapidly progressive loss of function and LE weakness, complicated by DM II, Chronic Renal failure stage IV and obesity. Goal of rehab is latter-day of functional independence. Plan: - Physical therapy for gait and balance - Occupational Therapy for ADLs - As needed analgesics - Bowel protocol - DVT prophylaxis: SCDs, ASA, Lovenox - DM type II - A1c 7.1 on admission, blood sugars ACHS, Moderate sliding scale, Lantus 30 units BID - Renal failure stage IV (Chronic) -Check BMP in 3 days, on d/c follow up appointment with Dr. 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 Lew concerning 24 hour urine results - Obtain serum protein levels = pending results - Ask Dr. Lew to review over patients steady increase in blood pressure despite being on several medications - Prednisone taper June 60mg daily, on July 20 start 50mg daily, on August 17 go to 40mg daily for two weeks, then change to 20mg daily, on September 17 decrease to 10mg daily. Will then address at followup visit with Neurology - Snoring when sleeping, frequently wakes during the night = Outpatient sleep study at discharge
[2018-07-09 13:37] VITALS: BP 156/84; PULSE 67
--- NOTE | 2018-07-09 14:07 | PN.NEURO_ITS ---
Subjective: Staffed in team meeting. Family on the phone, questions addressed and answered. With physical therapy, she has more movement in her left thigh with greater ROM in the right leg. She has more SOB with wheel chair mobility now then before. She is able to transfer using sliding board with an assist of one when going up a slant versus at stand by on flat surface. She is able to production or plant engineer the parallel bars for a solid 2 minutes before becoming fatigued. With Occupational therapy, she requires 2 people to get into the shower, and she is moderate assist with bathing. With toileting she is able to manage getting her clothes down, shifting her weight from side to side, she does have difficulty pulling her clothes back up. With Nursing, her blood sugar and vital signs are stable. She does snore when sleeping, will schedule a sleep study as an outpatient. The plan will be to re-team her again next Monday07/16/18. - Physical Exam General: Alert, Oriented x3, Cooperative HEENT: Atraumatic, PERRLA, EOMI, Normocephalic Neck: Supple, No JVD, Negative Carotid Bruits Lungs: Clear to auscultation, Normal air movement Cardiovascular: Regular rate, No murmurs Abdomen: Bowel Sounds Present, Soft, Non Tender Extremities: No edema, Capillary Refill Less than 3 Seconds Skin: No rashes, No breakdown Musculoskeletal: No Tenderness to Palpation of Joints or Extremities Neurological: Cranial nerves II-XII grossly intact Psych/Mental Status: Normal Affect, Appropriate, Alert and oriented to time, place, person, mood and affect Vital Signs Temp Pulse Resp BP Pulse Ox 97.7 F L 68 20 H 155/91 H 98 07/09/18 07:17 07/09/18 07:17 07/09/18 07:17 07/09/18 07:17 07/09/18 07:17 Oxygen Delivery Method Room Air Weight: 112.3 kg Body Mass Index (BMI) 44.7 Intake and Output for Last 24 Hours 07/07/18 07/08/18 07/09/18 23:59 23:59 23:59 Intake Total 840 / 840 720 / 720 440 / 440 Balance 840 / 840 720 / 720 440 / 440 Laboratory Tests Past 24 Hrs 07/09/18 05:15 Sodium 144 Potassium 4.5 Chloride 111 H Carbon Dioxide 23.0 BUN 83 H Creatinine 2.67 H Estim Creat Clear Calc 18.61 Est GFR (MDRD) Af Amer 24 L Est GFR (MDRD) Non-Af 20 L BUN/Creatinine Ratio 31.1 H Glucose 175 H Calcium 8.1 L Phosphorus 2.9 Albumin 2.1 L POC Glucose 07/09/18 07/09/18 07/09/18 11:14 06:41 02:50 POC Glucose 229 H 162 H 197 H 07/08/18 07/08/18 20:54 17:08 POC Glucose 247 H 205 H Active Medications Acetaminophen (Tylenol) 650 mg PO Q8H PRN PRN PRN Reason: PAIN Last Admin: 06/27/18 05:46 Dose: 650 mg Amlodipine Besylate (Norvasc) 10 mg PO DAILY [facility] Last Admin: 07/09/18 08:17 Dose: 10 mg Atorvastatin Calcium (Lipitor) 20 mg PO QHS [facility] Last Admin: 07/08/18 20:57 Dose: 20 mg Bisacodyl (Dulcolax) 10 mg RECTAL .PRN X 1 PRN PRN Reason: Constipation Last Admin: 06/26/18 14:29 Dose: 10 mg Buspirone HCl (Buspar) 5 mg PO TID [facility] Last Admin: 07/09/18 13:33 Dose: 5 mg [facility] Last Admin: 07/09/18 08:17 Dose: 500 mg Carvedilol (Coreg) 25 mg PO BID [facility] Last Admin: 07/09/18 08:18 Dose: 25 mg Collagenase (Santyl) 1 applic TOPICAL DAILY [facility]; Protocol Last Admin: 07/09/18 08:21 Dose: 1 applicatio Gabapentin (Neurontin) 300 mg PO QHS [facility] Last Admin: 07/08/18 20:57 Dose: 300 mg Heparin Sodium (Porcine) (Heparin Na) 5,000 unit SC Q12 [facility] Last Admin: 07/09/18 08:18 Dose: 5,000 unit Hydralazine HCl (Apresoline) 50 mg PO TID [facility] Last Admin: 07/09/18 13:37 Dose: 50 mg Hydrocortisone Acetate (Anusol Hc) 25 mg RECTAL BID PRN PRN PRN Reason: Hemorrhoids Last Admin: 06/29/18 04:27 Dose: 25 mg Insulin Glargine (Lantus (Bkc)) 20 units SC DAILY [facility] Last Admin: 07/09/18 11:19 Dose: 20 units Insulin Human Lispro (Humalog Kwikpen (Bkc)) 0 unit SC ACHS [facility]; Protocol Last Admin: 07/09/18 13:33 Dose: 6 u Insulin Human Lispro (Humalog Kwikpen (Bkc)) 5 unit SC BID@1200,1700 [facility] Last Admin: 07/09/18 13:34 Dose: 5 units Insulin Human Lispro (Humalog Kwikpen (Bkc)) 4 unit SC DAILY@0700 [facility] Last Admin: 07/09/18 08:20 Dose: 4 units Losartan Potassium (Cozaar) 50 mg PO DAILY [facility] Last Admin: 07/09/18 08:17 Dose: 50 mg Magnesium Hydroxide (Milk Of Magnesia) 30 ml PO .PRN X 1 PRN PRN Reason: Constipation Menthol (Bengay Vanishing Scent) 1 applic TOPICAL TID PRN PRN PRN Reason: PAIN Last Admin: 06/27/18 10:32 Dose: 1 applic Montelukast Sodium (Singulair) 10 mg PO QHS [facility] Last Admin: 07/08/18 20:56 Dose: 10 mg Multivitamins/Minerals (Multivitamin With Minerals) 1 tablet PO DAILY@0800 [facility] Last Admin: 07/09/18 08:17 Dose: 1 tablet Ondansetron HCl (Zofran Odt) 4 mg PO Q8H PRN PRN PRN Reason: NAUSEA Last Admin: 06/27/18 05:46 Dose: 4 mg Oxycodone HCl (Oxyir) 5 mg PO Q6H PRN PRN PRN Reason: SEVERE PAIN (6-10/10) Last Admin: 06/27/18 01:47 Dose: 5 mg Pantoprazole Sodium (Protonix) 20 mg PO DAILY [facility] Last Admin: 07/09/18 08:17 Dose: 20 mg Prednisone () 60 mg PO DAILY@0800 [facility] Last Admin: 07/09/18 08:18 Dose: 60 mg Senna/Docusate Sodium (Senokot-S, Leti-Colace) 2 tablet PO BID [facility] Last Admin: 07/09/18 08:21 Dose: 1 tablet Sertraline HCl (Zoloft) 100 mg PO DAILY [facility] Last Admin: 07/09/18 08:17 Dose: 100 mg Sodium Chloride () 5 - 15 ml IV UD PRN PRN Reason: SALINE FLUSH Last Admin: 06/22/18 21:43 Dose: 10 ml Sodium Chloride () 5 - 15 ml IV UD PRN PRN Reason: SALINE FLUSH Medical Necessity - Tobacco Use Smoking Status: Never smoker Tobacco Use: Non-smoker Assessment/Plan All Active Problems Debility (Acute) Debility 2/2 rapidly progressive loss of function and LE weakness, complicated by DM II, Chronic Renal failure stage IV and obesity. Goal of rehab is druze of functional independence. Plan: - Physical therapy for gait and balance - Occupational Therapy for ADLs - As needed analgesics - Bowel protocol - DVT prophylaxis: SCDs, ASA, Lovenox - DM type II - A1c 7.1 on admission, blood sugars ACHS, Moderate sliding scale, Lantus 30 units BID - Renal failure stage IV (Chronic) -Check BMP in 3 days, on d/c follow up ap pointment with Dr. 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 Lew concerning 24 hour urine results - Obtain serum protein levels = pending results - Ask Dr. Lew to review over patients steady increase in blood pressure despite being on several medications - Prednisone taper June 60mg daily, on July 20 start 50mg daily, on August 17 go to 40mg daily for two weeks, then change to 20mg daily, on September 17 decrease to 10mg daily. Will then address at followup visit with Neurology - Snoring when sleeping, frequently wakes during the night = Outpatient sleep study at discharge
--- NOTE | 2018-07-09 16:21 | CASEMGMT ---
Social Work Meeting with patient in room to collaborate further on discharge plan. Patient tearful when this social media sr strategy manager entered the room. Patient reporting that patient spouse just left and was not in a good. Patient reporting that the home situation is not good at patient spouse is an alcoholic and patient adult son who lives with patient does not help much either. Patient aware of need for 24hr care and reporting that there have been times when she lays on the floor waiting for patient spouse or son to come and assist but it can take time. Patient reporting to not be open to transitioning to an extended care facility, possibly under medicaid and to be planning to return to home as patient was prior. Patient voicing concerns with returning home and aware that patient does have a choice and that this social media sr strategy manager can assist with retirement placement for patient. Patient then thinking further and wanting to continue to work towards getting the Medicaid application completed. Patient voicing that patient daughterNikole will be coming to see patient this week and is able to help with getting paperwork together. This social media sr strategy manager exploring option of patient moving in with Nikole as patient is reporting a positive relationship with Nikole. Patient reporting that Nikole works during the day and is unable to provide 24hr care and that Nikoel also lives in a 1 bedroom 2nd floor apartment with no elevator to enter. Patient is functioning at a wheelchair level and would need 24hr care and an elevator to function in a 2nd floor apartment. Patient to gather supportive Medicaid documents and get them to this social media sr strategy manager or have Nikole bring them into [facility]. Will continue to follow with further safety planning and support for patient. Patient aware of this social workers limitations. Raj GARCIA MSW
[2018-07-09 16:35] LABS: Bedside Glucose 254 mg/dL (70-110)
--- NOTE | 2018-07-09 16:45 | PCM.PN.HOSP ---
Subjective: follow up: weakness. feeling better. strength improving. Vitals/I&O's: Vital Signs Temp Pulse Resp BP Pulse Ox 36.5 C L 67 20 H 156/84 H 98 07/09/18 07:17 07/09/18 13:37 07/09/18 07:17 07/09/18 13:37 07/09/18 07:17 Oxygen Delivery Method Room Air Weight: 112.3 kg Body Mass Index (BMI) 44.7 Intake and Output for Last 24 Hours 07/07/18 07/08/18 07/09/18 23:59 23:59 23:59 Intake Total 840 / 840 720 / 720 700 / 700 Balance 840 / 840 720 / 720 700 / 700 General: Alert, No apparent distress HEENT: Atraumatic, Normocephalic Oral: Moist Mucosa, No Gingival or Mucosal Lesions/ Ulcerations Neck: No Nodes, Thyroid Normal Size and Texture Lungs: Clear to auscultation, Normal air movement, No rhonchi, No wheeze Cardiovascular: Regular rate, Regular Rhythm, Normal S1, Normal S2 Abdomen: Bowel Sounds Present, Soft, Non Tender, Non-Distended, No Hepato-splenomegaly Neurological: - - weak dorsiflexion LE (right worse than left) Psych/Mental Status: Normal Affect, Appropriate Laboratory Results 07/08/18 17:08: POC Glucose 205 H 07/08/18 20:54: POC Glucose 247 H 07/09/18 02:50: POC Glucose 197 H 07/09/18 05:15: Sodium 144, Potassium 4.5, Chloride 111 H, Carbon Dioxide 23.0, BUN 83 H, Creatinine 2.67 H, Estim Creat Clear Calc 18.61, Est GFR (MDRD) Af Amer 24 L, Est GFR (MDRD) Non-Af 20 L, BUN/Creatinine Ratio 31.1 H, Glucose 175 H, Calcium 8.1 L, Phosphorus 2.9, Albumin 2.1 L 07/09/18 06:41: POC Glucose 162 H 07/09/18 11:14: POC Glucose 229 H 07/09/18 16:28: POC Glucose 254 H Current Medications Acetaminophen (Tylenol) 650 mg PO Q8H PRN PRN PRN Reason: PAIN Last Admin: 06/27/18 05:46 Dose: 650 mg Amlodipine Besylate (Norvasc) 10 mg PO DAILY [facility] Last Admin: 07/09/18 08:17 Dose: 10 mg Atorvastatin Calcium (Lipitor) 20 mg PO QHS [facility] Last Admin: 07/08/18 20:57 Dose: 20 mg Bisacodyl (Dulcolax) 10 mg RECTAL .PRN X 1 PRN PRN Reason: Constipation Last Admin: 06/26/18 14:29 Dose: 10 mg Buspirone HCl (Buspar) 5 mg PO TID [facility] Last Admin: 07/09/18 13:33 Dose: 5 mg Calcium Carbonate (Os-Chinedu 500) 500 mg PO BIDCM [facility] Last Admin: 07/09/18 08:17 Dose: 500 mg Carvedilol (Coreg) 25 mg PO BID [facility] Last Admin: 07/09/18 08:18 Dose: 25 mg Collagenase (Santyl) 1 applic TOPICAL DAILY [facility]; Protocol Last Admin: 07/09/18 08:21 Dose: 1 applicatio Gabapentin (Neurontin) 300 mg PO QHS [facility] Last Admin: 07/08/18 20:57 Dose: 300 mg Heparin Sodium (Porcine) (Heparin Na) 5,000 unit SC Q12 [facility] Last Admin: 07/09/18 08:18 Dose: 5,000 unit Hydralazine HCl (Apresoline) 50 mg PO TID [facility] Last Admin: 07/09/18 13:37 Dose: 50 mg Hydrocortisone Acetate (Anusol Hc) 25 mg RECTAL BID PRN PRN PRN Reason: Hemorrhoids Last Admin: 06/29/18 04:27 Dose: 25 mg Insulin Glargine (Lantus (Bkc)) 20 units SC DAILY [facility] Last Admin: 07/09/18 11:19 Dose: 20 units Insulin Human Lispro (Humalog Kwikpen (Bkc)) 0 unit SC ACHS [facility]; Protocol Last Admin: 07/09/18 13:33 Dose: 6 u Insulin Human Lispro (Humalog Kwikpen (Bkc)) 5 unit SC BID@1200,1700 [facility] Last Admin: 07/09/18 13:34 Dose: 5 units Insulin Human Lispro (Humalog Kwikpen (Bkc)) 4 unit SC DAILY@0700 [facility] Last Admin: 07/09/18 08:20 Dose: 4 units Losartan Potassium (Cozaar) 50 mg PO DAILY [facility] Last Admin: 07/09/18 08:17 Dose: 50 mg Magnesium Hydroxide (Milk Of Magnesia) 30 ml PO .PRN X 1 PRN PRN Reason: Constipation Menthol (Bengay Vanishing Scent) 1 applic TOPICAL TID PRN PRN PRN Reason: PAIN Last Admin: 06/27/18 10:32 Dose: 1 applic Montelukast Sodium (Singulair) 10 mg PO QHS [facility] Last Admin: 07/08/18 20:56 Dose: 10 mg Multivitamins/Minerals (Multivitamin With Minerals) 1 tablet PO DAILY@0800 [facility] Last Admin: 07/09/18 08:17 Dose: 1 tablet Ondansetron HCl (Zofran Odt) 4 mg PO Q8H PRN PRN PRN Reason: NAUSEA Last Admin: 06/27/18 05:46 Dose: 4 mg Oxycodone HCl (Oxyir) 5 mg PO Q6H PRN PRN PRN Reason: SEVERE PAIN (6-10/10) Last Admin: 06/27/18 01:47 Dose: 5 mg Pantoprazole Sodium (Protonix) 20 mg PO DAILY [facility] Last Admin: 07/09/18 08:17 Dose: 20 mg Prednisone () 60 mg PO DAILY@0800 [facility] Last Admin: 07/09/18 08:18 Dose: 60 mg Senna/Docusate Sodium (Senokot-S, Leti-Colace) 2 tablet PO BID [facility] Last Admin: 07/09/18 08:21 Dose: 1 tablet Sertraline HCl (Zoloft) 100 mg PO DAILY [facility] Last Admin: 07/09/18 08:17 Dose: 100 mg Sodium Chloride () 5 - 15 ml IV UD PRN PRN Reason: SALINE FLUSH Last Admin: 06/22/18 21:43 Dose: 10 ml Sodium Chloride () 5 - 15 ml IV UD PRN PRN Reason: SALINE FLUSH Medical Necessity - Tobacco Use Smoking Status: Never smoker Tobacco Use: Non-smoker Assessment/Plan All Active Problems Debility (Acute) 1. 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 2. CKD 3 stable avoid nephrotoxic agents 3. DM2 uncontrolled exacerbated by steroids increase lantus to 24 continue prandial insulin at 4 in AM and 5 at lunch and dinner for now. 4. HTN has been high for the most part continue norvasc 10, Carvedilol 25, hydralazine 50 TID, losartan 50 for now nephrology on consult to assist w BP control 5. DVT proph: SQ heparin. Code Visit Inpatient E&M: 77865 Subs Hosp L2
--- NOTE | 2018-07-09 16:54 | PN_ITS ---
Subjective: follow up: weakness. feeling better. strength improving. Vitals/I&O's: Vital Signs Temp Pulse Resp BP Pulse Ox 36.5 C L 67 20 H 156/84 H 98 07/09/18 07:17 07/09/18 13:37 07/09/18 07:17 07/09/18 13:37 07/09/18 07:17 Oxygen Delivery Method Room Air Weight: 112.3 kg Body Mass Index (BMI) 44.7 Intake and Output for Last 24 Hours 07/07/18 07/08/18 07/09/18 23:59 23:59 23:59 Intake Total 840 / 840 720 / 720 700 / 700 Balance 840 / 840 720 / 720 700 / 700 General: Alert, No apparent distress HEENT: Atraumatic, Normocephalic Oral: Moist Mucosa, No Gingival or Mucosal Lesions/ Ulcerations Neck: No Nodes, Thyroid Normal Size and Texture Lungs: Clear to auscultation, Normal air movement, No rhonchi, No wheeze Cardiovascular: Regular rate, Regular Rhythm, Normal S1, Normal S2 Abdomen: Bowel Sounds Present, Soft, Non Tender, Non-Distended, No Hepato- splenomegaly Neurological: - - weak dorsiflexion LE (right worse than left) Psych/Mental Status: Normal Affect, Appropriate Laboratory Results 07/08/18 17:08: POC Glucose 205 H 07/08/18 20:54: POC Glucose 247 H 07/09/18 02:50: POC Glucose 197 H 07/09/18 05:15: Sodium 144, Potassium 4.5, Chloride 111 H, Carbon Dioxide 23.0, BUN 83 H, Creatinine 2.67 H, Estim Creat Clear Calc 18.61, Est GFR (MDRD) Af Amer 24 L, Est GFR (MDRD) Non-Af 20 L, BUN/Creatinine Ratio 31.1 H, Glucose 175 H, Calcium 8.1 L, Phosphorus 2.9, Albumin 2.1 L 07/09/18 06:41: POC Glucose 162 H 07/09/18 11:14: POC Glucose 229 H 07/09/18 16:28: POC Glucose 254 H Current Medications Acetaminophen (Tylenol) 650 mg PO Q8H PRN PRN PRN Reason: PAIN Last Admin: 06/27/18 05:46 Dose: 650 mg Amlodipine Besylate (Norvasc) 10 mg PO DAILY [facility] Last Admin: 07/09/18 08:17 Dose: 10 mg Atorvastatin Calcium (Lipitor) 20 mg PO QHS [facility] Last Admin: 07/08/18 20:57 Dose: 20 mg Bisacodyl (Dulcolax) 10 mg RECTAL .PRN X 1 PRN PRN Reason: Constipation Last Admin: 06/26/18 14:29 Dose: 10 mg Buspirone HCl (Buspar) 5 mg PO TID [facility] Last Admin: 07/09/18 13:33 Dose: 5 mg Calcium Carbonate (Os-Chinedu 500) 500 mg PO BIDCM [facility] Last Admin: 07/09/18 08:17 Dose: 500 mg Carvedilol (Coreg) 25 mg PO BID [facility] Last Admin: 07/09/18 08:18 Dose: 25 mg Collagenase (Santyl) 1 applic TOPICAL DAILY [facility]; Protocol Last Admin: 07/09/18 08:21 Dose: 1 applicatio Gabapentin (Neurontin) 300 mg PO QHS [facility] Last Admin: 07/08/18 20:57 Dose: 300 mg Heparin Sodium (Porcine) (Heparin Na) 5,000 unit SC Q12 [facility] Last Admin: 07/09/18 08:18 Dose: 5,000 unit Hydralazine HCl (Apresoline) 50 mg PO TID [facility] Last Admin: 07/09/18 13:37 Dose: 50 mg Hydrocortisone Acetate (Anusol Hc) 25 mg RECTAL BID PRN PRN PRN Reason: Hemorrhoids Last Admin: 06/29/18 04:27 Dose: 25 mg Insulin Glargine (Lantus (Bkc)) 20 units SC DAILY [facility] Last Admin: 07/09/18 11:19 Dose: 20 units Insulin Human Lispro (Humalog Kwikpen (Bkc)) 0 unit SC ACHS [facility]; Protocol Last Admin: 07/09/18 13:33 Dose: 6 u Insulin Human Lispro (Humalog Kwikpen (Bkc)) 5 unit SC BID@1200,1700 [facility] Last Admin: 07/09/18 13:34 Dose: 5 units Insulin Human Lispro (Humalog Kwikpen (Bkc)) 4 unit SC DAILY@0700 [facility] Last Admin: 07/09/18 08:20 Dose: 4 units Losartan Potassium (Cozaar) 50 mg PO DAILY [facility] Last Admin: 07/09/18 08:17 Dose: 50 mg Magnesium Hydroxide (Milk Of Magnesia) 30 ml PO .PRN X 1 PRN PRN Reason: Constipation Menthol (Bengay Vanishing Scent) 1 applic TOPICAL TID PRN PRN PRN Reason: PAIN Last Admin: 06/27/18 10:32 Dose: 1 applic Montelukast Sodium (Singulair) 10 mg PO QHS [facility] Last Admin: 07/08/18 20:56 Dose: 10 mg Multivitamins/Minerals (Multivitamin With Minerals) 1 tablet PO DAILY@0800 [facility] Last Admin: 07/09/18 08:17 Dose: 1 tablet Ondansetron HCl (Zofran Odt) 4 mg PO Q8H PRN PRN PRN Reason: NAUSEA Last Admin: 06/27/18 05:46 Dose: 4 mg Oxycodone HCl (Oxyir) 5 mg PO Q6H PRN PRN PRN Reason: SEVERE PAIN (6-10/10) Last Admin: 06/27/18 01:47 Dose: 5 mg Pantoprazole Sodium (Protonix) 20 mg PO DAILY [facility] Last Admin: 07/09/18 08:17 Dose: 20 mg Prednisone () 60 mg PO DAILY@0800 [facility] Last Admin: 07/09/18 08:18 Dose: 60 mg Senna/Docusate Sodium (Senokot-S, Leti-Colace) 2 tablet PO BID [facility] Last Admin: 07/09/18 08:21 Dose: 1 tablet Sertraline HCl (Zoloft) 100 mg PO DAILY [facility] Last Admin: 07/09/18 08:17 Dose: 100 mg Sodium Chloride () 5 - 15 ml IV UD PRN PRN Reason: SALINE FLUSH Last Admin: 06/22/18 21:43 Dose: 10 ml Sodium Chloride () 5 - 15 ml IV UD PRN PRN Reason: SALINE FLUSH Medical Necessity - Tobacco Use Smoking Status: Never smoker Tobacco Use: Non-smoker Assessment/Plan All Active Problems Debility (Acute) 1. 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 2. CKD 3 stable avoid nephrotoxic agents 3. DM2 uncontrolled exacerbated by steroids increase lantus to 24 continue prandial insulin at 4 in AM and 5 at lunch and dinner for now. 4. HTN has been high for the most part continue norvasc 10, Carvedilol 25, hydralazine 50 TID, losartan 50 for now nephrology on consult to assist w BP control 5. DVT proph: SQ heparin. Code Visit Inpatient E&M: 07320 Subs Hosp L2
[2018-07-09 21:45] VITALS: PULSE 70; RESP 16; O2SAT 96
[2018-07-09 21:50] VITALS: BP 135/46; PULSE 70
[2018-07-09] MEDS: Atorvastatin Calcium 20 MG Tablet PO (21:50)
[2018-07-09] MEDS: Gabapentin 300 MG Capsule PO (21:50)
[2018-07-09] MEDS: Montelukast 10 MG Tablet PO (21:50)
[2018-07-09 22:11] LABS: Bedside Glucose 236 mg/dL (70-110)
--- NOTE | 2018-07-10 03:51 | NURSING ---
Reviewed and agree with DUST BOX TENDER documentation and FIMs charting.
[2018-07-10 04:06] LABS: Bedside Glucose 144 mg/dL (70-110)
[2018-07-10 06:23] VITALS: BP 154/78; PULSE 65
[2018-07-10] MEDS: hydrALAZINE 50 MG Tablet PO ×3 (06:23→21:53)
[2018-07-10] MEDS: busPIRone 5 MG Tablet PO ×3 (06:23→21:53)
[2018-07-10 07:00] VITALS: BP 154/78; PULSE 65; RESP 18; TEMP 36.3; O2SAT 98
[2018-07-10 07:40] LABS: Bedside Glucose 100 mg/dL (70-110)
[2018-07-10] MEDS: Insulin Lispro 100 UNIT/ML INSULN.PEN SC ×5 (09:09→21:58)
[2018-07-10] MEDS: Heparin Injection (Vial) 5,000 UNIT/ML VIAL 5000 UNIT SC ×2 (09:10→21:55)
[2018-07-10] MEDS: Hydrocortisone 25 MG Suppository RECTAL (09:15)
[2018-07-10] MEDS: Calcium (Elemental) 500 MG Tablet PO ×2 (09:26→17:38)
[2018-07-10] MEDS: Multivitamins,Ther W-Minerals Tablet 1 TABLET PO (09:26)
[2018-07-10] MEDS: predniSONE 20 MG Tablet 60 MG PO (09:26)
[2018-07-10] MEDS: Carvedilol 25 MG Tablet PO ×2 (09:27→21:53)
[2018-07-10] MEDS: Pantoprazole Sodium 20 MG Tablet PO (09:27)
[2018-07-10] MEDS: amLODIPine 10 MG Tablet PO (09:27)
[2018-07-10] MEDS: Losartan Potassium 50 MG Tablet PO (09:27)
[2018-07-10] MEDS: Sertraline 100 MG Tablet PO (09:28)
[2018-07-10] MEDS: Senna/Docusate Sodium 1 Tablet 2 TABLET PO (09:28)
[2018-07-10] MEDS: Collagenase 30gm Tube 1 APPLIC TOPICAL (09:28)
--- NOTE | 2018-07-10 10:54 | CASEMGMT ---
Insurance Clinical information sent. Pending continued stay approval at this time. Auth#[id number] MER[facility] Villalba
[2018-07-10 11:11] LABS: Bedside Glucose 133 mg/dL (70-110)
[2018-07-10 13:53] VITALS: PULSE 66
[2018-07-10 17:25] LABS: Bedside Glucose 255 mg/dL (70-110)
[2018-07-10 18:44] VITALS: BP 124/64; PULSE 68; RESP 16; TEMP 36.3; O2SAT 97
[2018-07-10 21:50] VITALS: PULSE 68; RESP 16; O2SAT 97
[2018-07-10 21:53] VITALS: BP 124/64; PULSE 68
[2018-07-10] MEDS: Gabapentin 300 MG Capsule PO (21:53)
[2018-07-10] MEDS: Atorvastatin Calcium 20 MG Tablet PO (21:53)
[2018-07-10] MEDS: Montelukast 10 MG Tablet PO (21:53)
[2018-07-10 22:15] LABS: Bedside Glucose 239 mg/dL (70-110)
--- NOTE | 2018-07-11 00:49 | NURSING ---
Reviewed and agree with TRACTOR SWEEPER DRIVER documentation and FIMs charting
[2018-07-11 05:16] LABS: Bedside Glucose 178 mg/dL (70-110)
[2018-07-11 05:48] VITALS: BP 157/75; PULSE 63
[2018-07-11] MEDS: busPIRone 5 MG Tablet PO ×3 (05:48→22:18)
[2018-07-11] MEDS: hydrALAZINE 50 MG Tablet PO ×3 (05:48→22:18)
[2018-07-11 06:56] LABS: Bedside Glucose 134 mg/dL (70-110)
[2018-07-11 07:00] VITALS: BP 157/75; PULSE 62; RESP 18; TEMP 36.4; O2SAT 96
[2018-07-11] MEDS: Calcium (Elemental) 500 MG Tablet PO ×2 (07:53→17:16)
[2018-07-11] MEDS: Insulin Lispro 100 UNIT/ML INSULN.PEN SC ×5 (07:53→22:14)
[2018-07-11] MEDS: Multivitamins,Ther W-Minerals Tablet 1 TABLET PO (07:53)
[2018-07-11] MEDS: amLODIPine 10 MG Tablet PO (07:54)
[2018-07-11] MEDS: Losartan Potassium 50 MG Tablet PO (07:54)
[2018-07-11] MEDS: predniSONE 20 MG Tablet 60 MG PO (07:54)
[2018-07-11] MEDS: Pantoprazole Sodium 20 MG Tablet PO (07:54)
[2018-07-11] MEDS: Carvedilol 25 MG Tablet PO ×2 (07:54→22:18)
[2018-07-11] MEDS: Collagenase 30gm Tube 1 APPLIC TOPICAL (07:55)
[2018-07-11] MEDS: Sertraline 100 MG Tablet PO (07:55)
--- NOTE | 2018-07-11 09:49 | CASEMGMT ---
Insurance Continued stay approved with next update due on 07/17/18. Auth#[id number] MER[facility] Villalba
--- NOTE | 2018-07-11 09:59 | PCM.PN.NEU ---
Subjective: Patient is having increased SOB on exertion, and 3+ edema in bilateral lower extremity. Her Creatinine has also increased will recheck and let Dr. Lew know. - Physical Exam General: Alert, Oriented x3, Cooperative HEENT: Atraumatic, PERRLA, EOMI, Normocephalic Neck: Supple, No JVD, Negative Carotid Bruits Lungs: Clear to auscultation, Normal air movement Cardiovascular: Regular rate, No murmurs Abdomen: Bowel Sounds Present, Soft, Non Tender Extremities: No edema, Capillary Refill Less than 3 Seconds Skin: No rashes, No breakdown Musculoskeletal: No Tenderness to Palpation of Joints or Extremities Neurological: Cranial nerves II-XII grossly intact Psych/Mental Status: Normal Affect, Appropriate, Alert and oriented to time, place, person, mood and affect Vital Signs Temp Pulse Resp BP Pulse Ox 97.5 F L 62 18 157/75 H 96 07/11/18 07:00 07/11/18 07:00 07/11/18 07:00 07/11/18 07:00 07/11/18 07:00 Oxygen Delivery Method Room Air Weight: 112.3 kg Body Mass Index (BMI) 44.7 Intake and Output for Last 24 Hours 07/09/18 07/10/18 07/11/18 23:59 23:59 23:59 Intake Total 700 / 700 600 / 600 360 / 360 Balance 700 / 700 600 / 600 360 / 360 POC Glucose 07/11/18 07/11/18 07/10/18 06:46 03:53 21:57 POC Glucose 134 H 178 H 239 H 07/10/18 07/10/18 17:23 11:06 POC Glucose 255 H 133 H Active Medications Acetaminophen (Tylenol) 650 mg PO Q8H PRN PRN PRN Reason: PAIN Last Admin: 06/27/18 05:46 Dose: 650 mg Amlodipine Besylate (Norvasc) 10 mg PO DAILY [facility] Last Admin: 07/11/18 07:54 Dose: 10 mg Atorvastatin Calcium (Lipitor) 20 mg PO QHS [facility] Last Admin: 07/10/18 21:53 Dose: 20 mg Bisacodyl (Dulcolax) 10 mg RECTAL .PRN X 1 PRN PRN Reason: Constipation Last Admin: 06/26/18 14:29 Dose: 10 mg Buspirone HCl (Buspar) 5 mg PO TID [facility] Last Admin: 07/11/18 05:48 Dose: 5 mg Calcium Carbonate (Os-Chinedu 500) 500 mg PO BIDCM [facility] Last Admin: 07/11/18 07:53 Dose: 500 mg Carvedilol (Coreg) 25 mg PO BID [facility] Last Admin: 07/11/18 07:54 Dose: 25 mg Collagenase (Santyl) 1 applic TOPICAL DAILY [facility]; Protocol Last Admin: 07/11/18 07:55 Dose: 1 applicatio Gabapentin (Neurontin) 300 mg PO QHS [facility] Last Admin: 07/10/18 21:53 Dose: 300 mg Heparin Sodium (Porcine) (Heparin Na) 5,000 unit SC Q12 [facility] Last Admin: 07/10/18 21:55 Dose: 5,000 unit Hydralazine HCl (Apresoline) 50 mg PO TID [facility] Last Admin: 07/11/18 05:48 Dose: 50 mg Hydrocortisone Acetate (Anusol Hc) 25 mg RECTAL BID PRN PRN PRN Reason: Hemorrhoids Last Admin: 07/10/18 09:15 Dose: 25 mg Insulin Glargine (Lantus (Bkc)) 24 units SC DAILY [facility] Last Admin: 07/10/18 09:10 Dose: 24 u Insulin Human Lispro (Humalog Kwikpen (Bkc)) 0 unit SC ACHS [facility]; Protocol Last Admin: 07/11/18 07:48 Dose: Not Given Insulin Human Lispro (Humalog Kwikpen (Bkc)) 5 unit SC BID@1200,1700 [facility] Last Admin: 07/10/18 17:37 Dose: 5 units Insulin Human Lispro (Humalog Kwikpen (Bkc)) 4 unit SC DAILY@0700 [facility] Last Admin: 07/11/18 07:53 Dose: 4 units Losartan Potassium (Cozaar) 50 mg PO DAILY [facility] Last Admin: 07/11/18 07:54 Dose: 50 mg Magnesium Hydroxide (Milk Of Magnesia) 30 ml PO .PRN X 1 PRN PRN Reason: Constipation Menthol (Bengay Vanishing Scent) 1 applic TOPICAL TID PRN PRN PRN Reason: PAIN Last Admin: 06/27/18 10:32 Dose: 1 applic Montelukast Sodium (Singulair) 10 mg PO QHS [facility] Last Admin: 07/10/18 21:53 Dose: 10 mg Multivitamins/Minerals (Multivitamin With Minerals) 1 tablet PO DAILY@0800 [facility] Last Admin: 07/11/18 07:53 Dose: 1 tablet Ondansetron HCl (Zofran Odt) 4 mg PO Q8H PRN PRN PRN Reason: NAUSEA Last Admin: 06/27/18 05:46 Dose: 4 mg Oxycodone HCl (Oxyir) 5 mg PO Q6H PRN PRN PRN Reason: SEVERE PAIN (6-10/10) Last Admin: 06/27/18 01:47 Dose: 5 mg Pantoprazole Sodium (Protonix) 20 mg PO DAILY [facility] Last Admin: 07/11/18 07:54 Dose: 20 mg Prednisone () 60 mg PO DAILY@0800 [facility] Last Admin: 07/11/18 07:54 Dose: 60 mg Senna/Docusate Sodium (Senokot-S, Leti-Colace) 2 tablet PO BID [facility] Last Admin: 07/11/18 07:55 Dose: Not Given Sertraline HCl (Zoloft) 100 mg PO DAILY [facility] Last Admin: 07/11/18 07:55 Dose: 100 mg Sodium Chloride () 5 - 15 ml IV UD PRN PRN Reason: SALINE FLUSH Last Admin: 06/22/18 21:43 Dose: 10 ml Sodium Chloride () 5 - 15 ml IV UD PRN PRN Reason: SALINE FLUSH Medical Necessity - Tobacco Use Smoking Status: Never smoker Tobacco Use: Non-smoker Assessment/Plan All Active Problems Debility (Acute) Debility 2/2 rapidly progressive loss of function and LE weakness, complicated by DM II, Chronic Renal failure stage IV and obesity. Goal of rehab is [facility] of functional independence. Plan: - Physical therapy for gait and balance - Occupational Therapy for ADLs - As needed analgesics - Bowel protocol - DVT prophylaxis: SCDs, ASA, Lovenox - DM type II - A1c 7.1 on admission, blood sugars ACHS, Moderate sliding scale, Lantus 30 units BID - Renal failure stage IV (Chronic) -Check BMP in 3 days, on d/c follow up appointment with Dr. 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 Lew concerning 24 hour urine results - Obtain serum protein levels = pending results - Ask Dr. Lew to review over patients steady increase in blood pressure despite being on several medications - Prednisone taper June 60mg daily, on July 20 start 50mg daily, on August 17 go to 40mg daily for two weeks, then change to 20mg daily, on September 17 decrease to 10mg daily. Will then address at followup visit with Neurology - Snoring when sleeping, frequently wakes during the night = Outpatient sleep study at discharge - Increased SOB, 3+ edema in lower extremity => 20mg Lasix, notified Dr. Lew of increase in Creatinine levels.
--- NOTE | 2018-07-11 10:07 | PN.NEURO_ITS ---
Subjective: Patient is having increased SOB on exertion, and 3+ edema in bilateral lower extremity. Her Creatinine has also increased will recheck and let Dr. Lew know. - Physical Exam General: Alert, Oriented x3, Cooperative HEENT: Atraumatic, PERRLA, EOMI, Normocephalic Neck: Supple, No JVD, Negative Carotid Bruits Lungs: Clear to auscultation, Normal air movement Cardiovascular: Regular rate, No murmurs Abdomen: Bowel Sounds Present, Soft, Non Tender Extremities: No edema, Capillary Refill Less than 3 Seconds Skin: No rashes, No breakdown Musculoskeletal: No Tenderness to Palpation of Joints or Extremities Neurological: Cranial nerves II-XII grossly intact Psych/Mental Status: Normal Affect, Appropriate, Alert and oriented to time, place, person, mood and affect Vital Signs Temp Pulse Resp BP Pulse Ox 97.5 F L 62 18 157/75 H 96 07/11/18 07:00 07/11/18 07:00 07/11/18 07:00 07/11/18 07:00 07/11/18 07:00 Oxygen Delivery Method Room Air Weight: 112.3 kg Body Mass Index (BMI) 44.7 Intake and Output for Last 24 Hours 07/09/18 07/10/18 07/11/18 23:59 23:59 23:59 Intake Total 700 / 700 600 / 600 360 / 360 Balance 700 / 700 600 / 600 360 / 360 POC Glucose 07/11/18 07/11/18 07/10/18 06:46 03:53 21:57 POC Glucose 134 H 178 H 239 H 07/10/18 07/10/18 17:23 11:06 POC Glucose 255 H 133 H Active Medications Acetaminophen (Tylenol) 650 mg PO Q8H PRN PRN PRN Reason: PAIN Last Admin: 06/27/18 05:46 Dose: 650 mg Amlodipine Besylate (Norvasc) 10 mg PO DAILY [facility] Last Admin: 07/11/18 07:54 Dose: 10 mg Atorvastatin Calcium (Lipitor) 20 mg PO QHS [facility] Last Admin: 07/10/18 21:53 Dose: 20 mg Bisacodyl (Dulcolax) 10 mg RECTAL .PRN X 1 PRN PRN Reason: Constipation Last Admin: 06/26/18 14:29 Dose: 10 mg Buspirone HCl (Buspar) 5 mg PO TID [facility] Last Admin: 07/11/18 05:48 Dose: 5 mg Calcium Carbonate (Os-Chinedu 500) 500 mg PO BIDCM [facility] Last Admin: 07/11/18 07:53 Dose: 500 mg Carvedilol (Coreg) 25 mg PO BID [facility] Last Admin: 07/11/18 07:54 Dose: 25 mg Collagenase (Santyl) 1 applic TOPICAL DAILY [facility]; Protocol Last Admin: 07/11/18 07:55 Dose: 1 applicatio Gabapentin (Neurontin) 300 mg PO QHS [facility] Last Admin: 07/10/18 21:53 Dose: 300 mg Heparin Sodium (Porcine) (Heparin Na) 5,000 unit SC Q12 [facility] Last Admin: 07/10/18 21:55 Dose: 5,000 unit Hydralazine HCl (Apresoline) 50 mg PO TID [facility] Last Admin: 07/11/18 05:48 Dose: 50 mg Hydrocortisone Acetate (Anusol Hc) 25 mg RECTAL BID PRN PRN PRN Reason: Hemorrhoids Last Admin: 07/10/18 09:15 Dose: 25 mg Insulin Glargine (Lantus (Bkc)) 24 units SC DAILY [facility] Last Admin: 07/10/18 09:10 Dose: 24 u Insulin Human Lispro (Humalog Kwikpen (Bkc)) 0 unit SC ACHS [facility]; Protocol Last Admin: 07/11/18 07:48 Dose: Not Given Insulin Human Lispro (Humalog Kwikpen (Bkc)) 5 unit SC BID@1200,1700 [facility] Last Admin: 07/10/18 17:37 Dose: 5 units Insulin Human Lispro (Humalog Kwikpen (Bkc)) 4 unit SC DAILY@0700 [facility] Last Admin: 07/11/18 07:53 Dose: 4 units Losartan Potassium (Cozaar) 50 mg PO DAILY [facility] Last Admin: 07/11/18 07:54 Dose: 50 mg Magnesium Hydroxide (Milk Of Magnesia) 30 ml PO .PRN X 1 PRN PRN Reason: Constipation Menthol (Bengay Vanishing Scent) 1 applic TOPICAL TID PRN PRN PRN Reason: PAIN Last Admin: 06/27/18 10:32 Dose: 1 applic Montelukast Sodium (Singulair) 10 mg PO QHS [facility] Last Admin: 07/10/18 21:53 Dose: 10 mg Multivitamins/Minerals (Multivitamin With Minerals) 1 tablet PO DAILY@0800 [facility] Last Admin: 07/11/18 07:53 Dose: 1 tablet Ondansetron HCl (Zofran Odt) 4 mg PO Q8H PRN PRN PRN Reason: NAUSEA Last Admin: 06/27/18 05:46 Dose: 4 mg Oxycodone HCl (Oxyir) 5 mg PO Q6H PRN PRN PRN Reason: SEVERE PAIN (6-10/10) Last Admin: 06/27/18 01:47 Dose: 5 mg Pantoprazole Sodium (Protonix) 20 mg PO DAILY [facility] Last Admin: 07/11/18 07:54 Dose: 20 mg Prednisone () 60 mg PO DAILY@0800 [facility] Last Admin: 07/11/18 07:54 Dose: 60 mg Senna/Docusate Sodium (Senokot-S, Leti-Colace) 2 tablet PO BID [facility] Last Admin: 07/11/18 07:55 Dose: Not Given Sertraline HCl (Zoloft) 100 mg PO DAILY [facility] Last Admin: 07/11/18 07:55 Dose: 100 mg Sodium Chloride () 5 - 15 ml IV UD PRN PRN Reason: SALINE FLUSH Last Admin: 06/22/18 21:43 Dose: 10 ml Sodium Chloride () 5 - 15 ml IV UD PRN PRN Reason: SALINE FLUSH Medical Necessity - Tobacco Use Smoking Status: Never smoker Tobacco Use: Non-smoker Assessment/Plan All Active Problems Debility (Acute) Debility 2/2 rapidly progressive loss of function and LE weakness, complicated by DM II, Chronic Renal failure stage IV and obesity. Goal of rehab is nondenominational of functional independence. Plan: - Physical therapy for gait and balance - Occupational Therapy for ADLs - As needed analgesics - Bowel protocol - DVT prophylaxis: SCDs, ASA, Lovenox - DM type II - A1c 7.1 on admission, blood sugars ACHS, Moderate sliding scale, Lantus 30 units BID - Renal failure stage IV (Chronic) -Check BMP in 3 days, on d/c follow up appointment with Dr. 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 Lew concerning 24 hour urine results - Obtain serum protein levels = pending results - Ask Dr. Lew to review over patients steady increase in blood pressure despite being on several medications - Prednisone taper June 60mg daily, on July 20 start 50mg daily, on go to 40mg daily for two weeks, then change to 20mg daily, on September 17 decrease to 10mg daily. Will then address at followup visit with Neurology - Snoring when sleeping, frequently wakes during the night = Outpatient sleep study at discharge - Increased SOB, 3+ edema in lower extremity => 20mg Lasix, notified Dr. Lew of increase in Creatinine levels.
[2018-07-11] MEDS: Heparin Injection (Vial) 5,000 UNIT/ML VIAL 5000 UNIT SC ×2 (10:26→22:19)
[2018-07-11] MEDS: Furosemide 20 MG Tablet PO (10:26)
[2018-07-11] MEDS: Hydrocortisone 25 MG Suppository RECTAL (12:25)
[2018-07-11 12:26] LABS: Bedside Glucose 121 mg/dL (70-110)
[2018-07-11 14:18] VITALS: PULSE 70
--- NOTE | 2018-07-11 16:15 | PCM.PN.REN ---
Subjective: complains of leg swelling. Remains on high dose prednisone for CIDP and amlodipine 10mg daily for hypertension. urine frequency with lasix 20mg x1 dose today. Reviewed low potassium diet, food options with pt - Physical Exam General: Alert, Oriented x3, Cooperative, No apparent distress Lungs: Clear to auscultation Cardiovascular: Regular rate Abdomen: Bowel Sounds Present, Soft, Non Tender, Non-Distended, Obese Extremities: Edema - pitting Musculoskeletal: - - 1-2/5 motor strength Psych/Mental Status: Alert and oriented to time, place, person, mood and affect Vital Signs Temp Pulse Resp BP Pulse Ox 97.5 F L 70 18 157/75 H 96 07/11/18 07:00 07/11/18 14:18 07/11/18 07:00 07/11/18 07:00 07/11/18 07:00 Oxygen Delivery Method Room Air Weight: 112.3 kg Body Mass Index (BMI) 44.7 Intake and Output for Last 24 Hours 07/09/18 07/10/18 07/11/18 23:59 23:59 23:59 Intake Total 700 / 700 600 / 600 360 / 360 Balance 700 / 700 600 / 600 360 / 360 POC Glucose 07/11/18 07/11/18 07/11/18 12:21 06:46 03:53 POC Glucose 121 H 134 H 178 H 07/10/18 07/10/18 21:57 17:23 POC Glucose 239 H 255 H Medical Necessity - Tobacco Use Smoking Status: Never smoker Tobacco Use: Non-smoker Assessment/Plan All Active Problems Debility (Acute) 1. CKD stage 4 due to DM2. Creatinine slightly up from 2.4 to 2.6 likely due to increased dose of Losartan. Continue to monitor. No urgent need for dialysis. labs in am 2. Hyperkalemia resolved. Stable on ARB and low potassium diet 3. DM2 primary care mgmt. 4. HTN Losartan increased to 50mg daily to achieve SBP <140. 5. debilitation due to CIDP on prednisone neurology following 6. Dependent edema BLE likely due to prednisone and CCB. Consider decreasing amlodipine to 5mg daily. Lasix 20mg po given x1 today.
[2018-07-11 16:26] LABS: Bedside Glucose 228 mg/dL (70-110)
[2018-07-11 21:01] VITALS: BP 143/74; PULSE 86; RESP 18; TEMP 36.6; O2SAT 96
[2018-07-11 21:35] LABS: Bedside Glucose 248 mg/dL (70-110)
[2018-07-11 22:11] VITALS: BP 143/69; PULSE 67
[2018-07-11] MEDS: Montelukast 10 MG Tablet PO (22:12)
[2018-07-11] MEDS: Atorvastatin Calcium 20 MG Tablet PO (22:13)
[2018-07-11] MEDS: Gabapentin 300 MG Capsule PO (22:13)
[2018-07-11 22:18] VITALS: BP 143/69; PULSE 67
[2018-07-12 03:16] LABS: Bedside Glucose 207 mg/dL (70-110)
[2018-07-12 05:49] VITALS: BP 131/78; PULSE 65
[2018-07-12 05:53] VITALS: BP 131/78; PULSE 65
[2018-07-12] MEDS: busPIRone 5 MG Tablet PO ×3 (05:53→22:58)
[2018-07-12] MEDS: hydrALAZINE 50 MG Tablet PO ×3 (05:53→22:58)
[2018-07-12 06:20] LABS: Albumin, Serum 2.2 g/dL (3.2-5.0); BUN 98 mg/dL (7-18); BUN/Creat Ratio 36.4 RATIO (10-20); Calcium,Total 7.8 mg/dL (8.5-10.1); Chloride 108 mmol/L (98-107); Creatinine, Serum 2.69 mg/dL (0.55-1.02); EST Glomerular Filtration Rate 19 mL/min (>60); Est Glom Filt Rate - Afr Amer 24 mL/min (>60); Estimated Creatinine Clearance 18.47 ml/min; Glucose 159 mg/dL (74-106); Phosphorus 3.5 mg/dL (2.5-4.9); Potassium 4.3 mmol/L (3.5-5.1); Sodium Level 139 mmol/L (136-145)
[2018-07-12 07:00] LABS: Bedside Glucose 126 mg/dL (70-110)
[2018-07-12 07:58] VITALS: BP 131/78; PULSE 65; RESP 16; TEMP 36.8; O2SAT 98
--- NOTE | 2018-07-12 09:09 | PCM.PN.NEU ---
Subjective: Patient seen, sitting quietly in bedside recliner resting after therapy session. Pain is controlled on current medication. Had some +3 edema in bilateral lower extremity, was given Lasix with good results. Dr. Lew saw the patient and decreased her Norvasc to 5mg daily, feels the edema is in part a result of increase in Losartan dose. No issues with GI and she is tolerating therapy. - Physical Exam General: Alert, Oriented x3, Cooperative HEENT: Atraumatic, PERRLA, EOMI, Normocephalic Neck: Supple, No JVD, Negative Carotid Bruits Lungs: Clear to auscultation, Normal air movement Cardiovascular: Regular rate, No murmurs Abdomen: Bowel Sounds Present, Soft, Non Tender Extremities: No edema, Capillary Refill Less than 3 Seconds Skin: No rashes, No breakdown Musculoskeletal: No Tenderness to Palpation of Joints or Extremities Neurological: Cranial nerves II-XII grossly intact Psych/Mental Status: Normal Affect, Appropriate, Alert and oriented to time, place, person, mood and affect Vital Signs Temp Pulse Resp BP Pulse Ox 98.2 F 65 16 131/78 H 98 07/12/18 07:58 07/12/18 07:58 07/12/18 07:58 07/12/18 07:58 07/12/18 07:58 Oxygen Delivery Method Room Air Weight: 112.3 kg Body Mass Index (BMI) 44.7 Intake and Output for Last 24 Hours 07/10/18 07/11/18 07/12/18 23:59 23:59 23:59 Intake Total 600 / 600 690 / 690 Balance 600 / 600 690 / 690 Laboratory Tests Past 24 Hrs 07/12/18 05:05 Sodium 139 Potassium 4.3 Chloride 108 H Carbon Dioxide 22.0 BUN 98 H Creatinine 2.69 H Estim Creat Clear Calc 18.47 Est GFR (MDRD) Af Amer 24 L Est GFR (MDRD) Non-Af 19 L BUN/Creatinine Ratio 36.4 H Glucose 159 H Calcium 7.8 L Phosphorus 3.5 Albumin 2.2 L POC Glucose 07/12/18 07/12/18 07/11/18 06:43 03:08 21:32 POC Glucose 126 H 207 H 248 H 07/11/18 07/11/18 16:08 12:21 POC Glucose 228 H 121 H Active Medications Acetaminophen (Tylenol) 650 mg PO Q8H PRN PRN PRN Reason: PAIN Last Admin: 06/27/18 05:46 Dose: 650 mg Amlodipine Besylate (Norvasc) 5 mg PO DAILY [facility] Last Admin: 07/12/18 09:57 Dose: 5 mg Atorvastatin Calcium (Lipitor) 20 mg PO QHS [facility] Last Admin: 07/11/18 22:13 Dose: 20 mg Bisacodyl (Dulcolax) 10 mg RECTAL .PRN X 1 PRN PRN Reason: Constipation Last Admin: 06/26/18 14:29 Dose: 10 mg Buspirone HCl (Buspar) 5 mg PO TID [facility] Last Admin: 07/12/18 05:53 Dose: 5 mg [facility]u [facility] Last Admin: 07/12/18 09:47 Dose: 500 mg Carvedilol (Coreg) 25 mg PO BID [facility] Last Admin: 07/12/18 09:47 Dose: 25 mg Collagenase (Santyl) 1 applic TOPICAL DAILY [facility]; Protocol Last Admin: 07/12/18 09:49 Dose: 1 applicatio Gabapentin (Neurontin) 300 mg PO QHS [facility] Last Admin: 07/11/18 22:13 Dose: 300 mg Heparin Sodium (Porcine) (Heparin Na) 5,000 unit SC Q12 [facility] Last Admin: 07/12/18 09:46 Dose: 5,000 unit Hydralazine HCl (Apresoline) 50 mg PO TID [facility] Last Admin: 07/12/18 05:53 Dose: 50 mg Hydrocortisone Acetate (Anusol Hc) 25 mg RECTAL BID PRN PRN PRN Reason: Hemorrhoids Last Admin: 07/11/18 12:25 Dose: 25 mg Insulin Glargine (Lantus (Bkc)) 24 units SC DAILY [facility] Last Admin: 07/12/18 09:46 Dose: 24 u Insulin Human Lispro (Humalog Kwikpen (Bkc)) 0 unit SC ACHS [facility]; Protocol Last Admin: 07/12/18 06:44 Dose: Not Given Insulin Human Lispro (Humalog Kwikpen (Bkc)) 5 unit SC BID@1200,1700 [facility] Last Admin: 07/11/18 17:15 Dose: 5 units Insulin Human Lispro (Humalog Kwikpen (Bkc)) 4 unit SC DAILY@0700 [facility] Last Admin: 07/12/18 09:45 Dose: 4 units Losartan Potassium (Cozaar) 50 mg PO DAILY [facility] Last Admin: 07/12/18 09:48 Dose: 50 mg Magnesium Hydroxide (Milk Of Magnesia) 30 ml PO .PRN X 1 PRN PRN Reason: Constipation Menthol (Bengay Vanishing Scent) 1 applic TOPICAL TID PRN PRN PRN Reason: PAIN Last Admin: 06/27/18 10:32 Dose: 1 applic Montelukast Sodium (Singulair) 10 mg PO QHS [facility] Last Admin: 07/11/18 22:12 Dose: 10 mg Multivitamins/Minerals (Multivitamin With Minerals) 1 tablet PO DAILY@0800 [facility] Last Admin: 07/12/18 09:46 Dose: 1 tablet Ondansetron HCl (Zofran Odt) 4 mg PO Q8H PRN PRN PRN Reason: NAUSEA Last Admin: 06/27/18 05:46 Dose: 4 mg Pantoprazole Sodium (Protonix) 20 mg PO DAILY [facility] Last Admin: 07/12/18 09:48 Dose: 20 mg Prednisone () 60 mg PO DAILY@0800 [facility] Last Admin: 07/12/18 09:47 Dose: 60 mg Senna/Docusate Sodium (Senokot-S, Leti-Colace) 2 tablet PO BID [facility] Last Admin: 07/12/18 09:49 Dose: Not Given Sertraline HCl (Zoloft) 100 mg PO DAILY [facility] Last Admin: 07/12/18 09:49 Dose: 100 mg Sodium Chloride () 5 - 15 ml IV UD PRN PRN Reason: SALINE FLUSH Last Admin: 06/22/18 21:43 Dose: 10 ml Sodium Chloride () 5 - 15 ml IV UD PRN PRN Reason: SALINE FLUSH Medical Necessity - Tobacco Use Smoking Status: Never smoker Tobacco Use: Non-smoker Assessment/Plan All Active Problems Debility (Acute) Debility 2/2 rapidly progressive loss of function and LE weakness, complicated by DM II, Chronic Renal failure stage IV and obesity. Goal of rehab is [place] of functional independence. Plan: - Physical therapy for gait and balance - Occupational Therapy for ADLs - As needed analgesics - Bowel protocol - DVT prophylaxis: SCDs, ASA, Lovenox - DM type II - A1c 7.1 on admission, blood sugars ACHS, Moderate sliding scale, Lantus 30 units BID - Renal failure stage IV (Chronic) -Check BMP in 3 days, on d/c follow up appointment with Dr. 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 Lew concerning 24 hour urine results - Obtain serum protein levels = pending results - Ask Dr. Lew to review over patients steady increase in blood pressure despite being on several medications - Prednisone taper June 60mg daily, on July 20 start 50mg daily, on August 17 go to 40mg daily for two weeks, then change to 20mg daily, on September 17 decrease to 10mg daily. Will then address at followup visit with Neurology - Snoring when sleeping, frequently wakes during the night = Outpatient sleep study at discharge - Increased SOB, 3+ edema in lower extremity => 20mg Lasix, notified Dr. Lew of increase in Creatinine levels.
[2018-07-12] MEDS: Insulin Lispro 100 UNIT/ML INSULN.PEN SC ×5 (09:45→22:59)
[2018-07-12] MEDS: Multivitamins,Ther W-Minerals Tablet 1 TABLET PO (09:46)
[2018-07-12] MEDS: Heparin Injection (Vial) 5,000 UNIT/ML VIAL 5000 UNIT SC ×2 (09:46→22:58)
[2018-07-12] MEDS: predniSONE 20 MG Tablet 60 MG PO (09:47)
[2018-07-12] MEDS: Calcium (Elemental) 500 MG Tablet PO ×2 (09:47→18:06)
[2018-07-12] MEDS: Carvedilol 25 MG Tablet PO ×2 (09:47→22:58)
[2018-07-12] MEDS: Losartan Potassium 50 MG Tablet PO (09:48)
[2018-07-12] MEDS: Pantoprazole Sodium 20 MG Tablet PO (09:48)
[2018-07-12] MEDS: Sertraline 100 MG Tablet PO (09:49)
[2018-07-12] MEDS: Collagenase 30gm Tube 1 APPLIC TOPICAL (09:49)
[2018-07-12] MEDS: amLODIPine 5 MG Tablet PO (09:57)
[2018-07-12 11:35] LABS: Bedside Glucose 138 mg/dL (70-110)
[2018-07-12 14:42] VITALS: BP 136/64; PULSE 69
[2018-07-12 16:40] LABS: Bedside Glucose 286 mg/dL (70-110)
[2018-07-12 22:00] VITALS: BP 159/77; PULSE 65; RESP 16; TEMP 36.4; O2SAT 98
[2018-07-12 22:58] VITALS: PULSE 65
[2018-07-12] MEDS: Montelukast 10 MG Tablet PO (23:00)
[2018-07-12] MEDS: Gabapentin 300 MG Capsule PO (23:00)
[2018-07-12] MEDS: Atorvastatin Calcium 20 MG Tablet PO (23:00)
[2018-07-12 23:31] LABS: Bedside Glucose 272 mg/dL (70-110)
--- NOTE | 2018-07-13 02:14 | NURSING ---
Reviewed and agree with LPNs fims and handoff
[2018-07-13 03:46] LABS: Bedside Glucose 169 mg/dL (70-110)
[2018-07-13 05:57] VITALS: PULSE 63
[2018-07-13] MEDS: hydrALAZINE 50 MG Tablet PO ×3 (05:57→20:49)
[2018-07-13] MEDS: busPIRone 5 MG Tablet PO ×3 (05:57→20:49)
[2018-07-13 06:51] LABS: Bedside Glucose 130 mg/dL (70-110)
[2018-07-13 07:30] VITALS: BP 143/71; PULSE 63; RESP 18; TEMP 36.5; O2SAT 96
[2018-07-13] MEDS: Pantoprazole Sodium 20 MG Tablet PO (07:45)
[2018-07-13] MEDS: Calcium (Elemental) 500 MG Tablet PO ×2 (07:45→17:03)
[2018-07-13] MEDS: Sertraline 100 MG Tablet PO (07:45)
[2018-07-13] MEDS: predniSONE 20 MG Tablet 60 MG PO (07:45)
[2018-07-13] MEDS: Losartan Potassium 50 MG Tablet PO (07:45)
[2018-07-13] MEDS: Carvedilol 25 MG Tablet PO ×2 (07:46→20:49)
[2018-07-13] MEDS: Multivitamins,Ther W-Minerals Tablet 1 TABLET PO (07:46)
[2018-07-13] MEDS: Collagenase 30gm Tube 1 APPLIC TOPICAL (07:46)
[2018-07-13] MEDS: Insulin Lispro 100 UNIT/ML INSULN.PEN SC ×6 (07:46→20:46)
[2018-07-13] MEDS: amLODIPine 5 MG Tablet PO (07:48)
[2018-07-13] MEDS: Heparin Injection (Vial) 5,000 UNIT/ML VIAL 5000 UNIT SC ×2 (09:27→20:47)
[2018-07-13 12:45] LABS: Bedside Glucose 222 mg/dL (70-110)
[2018-07-13 15:15] VITALS: BP 149/69; PULSE 68
--- NOTE | 2018-07-13 15:23 | PCM.PN.HOSP ---
Subjective: increased swelling in LE. Vitals/I&O's: Vital Signs Temp Pulse Resp BP Pulse Ox 36.5 C L 68 18 149/69 H 96 07/13/18 07:30 07/13/18 15:15 07/13/18 07:30 07/13/18 15:15 07/13/18 07:30 Oxygen Delivery Method Room Air Weight: 114.36 kg Body Mass Index (BMI) 44.7 Intake and Output for Last 24 Hours 07/11/18 07/12/18 07/13/18 23:59 23:59 23:59 Intake Total 690 / 690 480 / 480 Balance 690 / 690 480 / 480 General: Alert, No apparent distress HEENT: Atraumatic, Normocephalic Oral: Moist Mucosa, No Gingival or Mucosal Lesions/ Ulcerations Neck: No Nodes, Thyroid Normal Size and Texture Lungs: Clear to auscultation, Normal air movement, No rhonchi, No wheeze Cardiovascular: Regular rate, Regular Rhythm, Normal S1, Normal S2, No murmurs Extremities: No Calf Tenderness, Edema - 2+ Laboratory Results 07/12/18 16:38: POC Glucose 286 H 07/12/18 22:53: POC Glucose 272 H 07/13/18 03:41: POC Glucose 169 H 07/13/18 06:40: POC Glucose 130 H 07/13/18 12:06: POC Glucose 222 H Current Medications Acetaminophen (Tylenol) 650 mg PO Q8H PRN PRN PRN Reason: PAIN Last Admin: 06/27/18 05:46 Dose: 650 mg Amlodipine Besylate (Norvasc) 5 mg PO DAILY [facility] Last Admin: 07/13/18 07:48 Dose: 5 mg Atorvastatin Calcium (Lipitor) 20 mg PO QHS [facility] Last Admin: 07/12/18 23:00 Dose: 20 mg Bisacodyl (Dulcolax) 10 mg RECTAL .PRN X 1 PRN PRN Reason: Constipation Last Admin: 06/26/18 14:29 Dose: 10 mg Buspirone HCl (Buspar) 5 mg PO TID [facility] Last Admin: 07/13/18 15:15 Dose: 5 mg Calcium Carbonate (Os-Chinedu 500) 500 mg PO BIDCM [facility] Last Admin: 07/13/18 07:45 Dose: 500 mg Carvedilol (Coreg) 25 mg PO BID [facility] Last Admin: 07/13/18 07:46 Dose: 25 mg Collagenase (Santyl) 1 applic TOPICAL DAILY [facility]; Protocol Last Admin: 07/13/18 07:46 Dose: 1 applicatio Gabapentin (Neurontin) 300 mg PO QHS [facility] Last Admin: 07/12/18 23:00 Dose: 300 mg Heparin Sodium (Porcine) (Heparin Na) 5,000 unit SC Q12 [facility] Last Admin: 07/13/18 09:27 Dose: 5,000 unit Hydralazine HCl (Apresoline) 50 mg PO TID [facility] Last Admin: 07/13/18 15:15 Dose: 50 mg Hydrocortisone Acetate (Anusol Hc) 25 mg RECTAL BID PRN PRN PRN Reason: Hemorrhoids Last Admin: 07/11/18 12:25 Dose: 25 mg Insulin Glargine (Lantus (Bkc)) 24 units SC DAILY [facility] Last Admin: 07/13/18 09:26 Dose: 24 u Insulin Human Lispro (Humalog Kwikpen (Bkc)) 0 unit SC ACHS [facility]; Protocol Last Admin: 07/13/18 12:48 Dose: 6 u Insulin Human Lispro (Humalog Kwikpen (Bkc)) 5 unit SC BID@1200,1700 [facility] Last Admin: 07/13/18 12:48 Dose: 5 units Insulin Human Lispro (Humalog Kwikpen (Bkc)) 4 unit SC DAILY@0700 [facility] Last Admin: 07/13/18 07:46 Dose: 4 units Losartan Potassium (Cozaar) 50 mg PO DAILY [facility] Last Admin: 07/13/18 07:45 Dose: 50 mg Magnesium Hydroxide (Milk Of Magnesia) 30 ml PO .PRN X 1 PRN PRN Reason: Constipation Menthol (Bengay Vanishing Scent) 1 applic TOPICAL TID PRN PRN PRN Reason: PAIN Last Admin: 06/27/18 10:32 Dose: 1 applic Montelukast Sodium (Singulair) 10 mg PO QHS [facility] Last Admin: 07/12/18 23:00 Dose: 10 mg Multivitamins/Minerals (Multivitamin With Minerals) 1 tablet PO DAILY@0800 [facility] Last Admin: 07/13/18 07:46 Dose: 1 tablet Ondansetron HCl (Zofran Odt) 4 mg PO Q8H PRN PRN PRN Reason: NAUSEA Last Admin: 06/27/18 05:46 Dose: 4 mg Pantoprazole Sodium (Protonix) 20 mg PO DAILY [facility] Last Admin: 07/13/18 07:45 Dose: 20 mg Prednisone () 60 mg PO DAILY@0800 [facility] Last Admin: 07/13/18 07:45 Dose: 60 mg Senna/Docusate Sodium (Senokot-S, Leti-Colace) 2 tablet PO BID [facility] Last Admin: 07/13/18 07:46 Dose: Not Given Sertraline HCl (Zoloft) 100 mg PO DAILY [facility] Last Admin: 07/13/18 07:45 Dose: 100 mg Sodium Chloride () 5 - 15 ml IV UD PRN PRN Reason: SALINE FLUSH Last Admin: 06/22/18 21:43 Dose: 10 ml Sodium Chloride () 5 - 15 ml IV UD PRN PRN Reason: SALINE FLUSH Medical Necessity - Tobacco Use Smoking Status: Never smoker Tobacco Use: Non-smoker Assessment/Plan All Active Problems Debility (Acute) 1. 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 2. CKD 3 stable avoid nephrotoxic agents 3. DM2 uncontrolled exacerbated by steroids increase lantus to 24 continue prandial insulin at 4 in AM and 5 at lunch and dinner for now. 4. HTN has been high for the most part continue norvasc 5, Carvedilol 25, hydralazine 50 TID, losartan 50 for now nephrology on consult to assist w BP control 5. Edema probably multifactorial due to prednisone, CCB, limited mobility. weight up nearly 4kg will give lasix and monitor. 6.DVT proph: SQ heparin. Code Visit Inpatient E&M: 57563 Subs Hosp L2
--- NOTE | 2018-07-13 15:27 | PN_ITS ---
Subjective: increased swelling in LE. Vitals/I&O's: Vital Signs Temp Pulse Resp BP Pulse Ox 36.5 C L 68 18 149/69 H 96 07/13/18 07:30 07/13/18 15:15 07/13/18 07:30 07/13/18 15:15 07/13/18 07:30 Oxygen Delivery Method Room Air Weight: 114.36 kg Body Mass Index (BMI) 44.7 Intake and Output for Last 24 Hours 07/11/18 07/12/18 07/13/18 23:59 23:59 23:59 Intake Total 690 / 690 480 / 480 Balance 690 / 690 480 / 480 General: Alert, No apparent distress HEENT: Atraumatic, Normocephalic Oral: Moist Mucosa, No Gingival or Mucosal Lesions/ Ulcerations Neck: No Nodes, Thyroid Normal Size and Texture Lungs: Clear to auscultation, Normal air movement, No rhonchi, No wheeze Cardiovascular: Regular rate, Regular Rhythm, Normal S1, Normal S2, No murmurs Extremities: No Calf Tenderness, Edema - 2+ Laboratory Results 07/12/18 16:38: POC Glucose 286 H 07/12/18 22:53: POC Glucose 272 H 07/13/18 03:41: POC Glucose 169 H 07/13/18 06:40: POC Glucose 130 H 07/13/18 12:06: POC Glucose 222 H Current Medications Acetaminophen (Tylenol) 650 mg PO Q8H PRN PRN PRN Reason: PAIN Last Admin: 06/27/18 05:46 Dose: 650 mg Amlodipine Besylate (Norvasc) 5 mg PO DAILY [facility] Last Admin: 07/13/18 07:48 Dose: 5 mg Atorvastatin Calcium (Lipitor) 20 mg PO QHS [facility] Last Admin: 07/12/18 23:00 Dose: 20 mg Bisacodyl (Dulcolax) 10 mg RECTAL .PRN X 1 PRN PRN Reason: Constipation Last Admin: 06/26/18 14:29 Dose: 10 mg Buspirone HCl (Buspar) 5 mg PO TID [facility] Last Admin: 07/13/18 15:15 Dose: 5 mg Calcium Carbonate (Os-Chinedu 500) 500 mg PO BIDCM [facility] Last Admin: 07/13/18 07:45 Dose: 500 mg Carvedilol (Coreg) 25 mg PO BID [facility] Last Admin: 07/13/18 07:46 Dose: 25 mg Collagenase (Santyl) 1 applic TOPICAL DAILY [facility]; Protocol Last Admin: 07/13/18 07:46 Dose: 1 applicatio Gabapentin (Neurontin) 300 mg PO QHS [facility] Last Admin: 07/12/18 23:00 Dose: 300 mg Heparin Sodium (Porcine) (Heparin Na) 5,000 unit SC Q12 [facility] Last Admin: 07/13/18 09:27 Dose: 5,000 unit Hydralazine HCl (Apresoline) 50 mg PO TID [facility] Last Admin: 07/13/18 15:15 Dose: 50 mg Hydrocortisone Acetate (Anusol Hc) 25 mg RECTAL BID PRN PRN PRN Reason: Hemorrhoids Last Admin: 07/11/18 12:25 Dose: 25 mg Insulin Glargine (Lantus (Bkc)) 24 units SC DAILY [facility] Last Admin: 07/13/18 09:26 Dose: 24 u Insulin Human Lispro (Humalog Kwikpen (Bkc)) 0 unit SC ACHS [facility]; Protocol Last Admin: 07/13/18 12:48 Dose: 6 u Insulin Human Lispro (Humalog Kwikpen (Bkc)) 5 unit SC BID@1200,1700 [facility] Last Admin: 07/13/18 12:48 Dose: 5 units Insulin Human Lispro (Humalog Kwikpen (Bkc)) 4 unit SC DAILY@0700 [facility] Last Admin: 07/13/18 07:46 Dose: 4 units Losartan Potassium (Cozaar) 50 mg PO DAILY [facility] Last Admin: 07/13/18 07:45 Dose: 50 mg Magnesium Hydroxide (Milk Of Magnesia) 30 ml PO .PRN X 1 PRN PRN Reason: Constipation Menthol (Bengay Vanishing Scent) 1 applic TOPICAL TID PRN PRN PRN Reason: PAIN Last Admin: 06/27/18 10:32 Dose: 1 applic Montelukast Sodium (Singulair) 10 mg PO QHS [facility] Last Admin: 07/12/18 23:00 Dose: 10 mg Multivitamins/Minerals (Multivitamin With Minerals) 1 tablet PO DAILY@0800 [facility] Last Admin: 07/13/18 07:46 Dose: 1 tablet Ondansetron HCl (Zofran Odt) 4 mg PO Q8H PRN PRN PRN Reason: NAUSEA Last Admin: 06/27/18 05:46 Dose: 4 mg Pantoprazole Sodium (Protonix) 20 mg PO DAILY [facility] Last Admin: 07/13/18 07:45 Dose: 20 mg Prednisone () 60 mg PO DAILY@0800 [facility] Last Admin: 07/13/18 07:45 Dose: 60 mg Senna/Docusate Sodium (Senokot-S, Leti-Colace) 2 tablet PO BID [facility] Last Admin: 07/13/18 07:46 Dose: Not Given Sertraline HCl (Zoloft) 100 mg PO DAILY [facility] Last Admin: 07/13/18 07:45 Dose: 100 mg Sodium Chloride () 5 - 15 ml IV UD PRN PRN Reason: SALINE FLUSH Last Admin: 06/22/18 21:43 Dose: 10 ml Sodium Chloride () 5 - 15 ml IV UD PRN PRN Reason: SALINE FLUSH Medical Necessity - Tobacco Use Smoking Status: Never smoker Tobacco Use: Non-smoker Assessment/Plan All Active Problems Debility (Acute) 1. 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 2. CKD 3 stable avoid nephrotoxic agents 3. DM2 uncontrolled exacerbated by steroids increase lantus to 24 continue prandial insulin at 4 in AM and 5 at lunch and dinner for now. 4. HTN has been high for the most part continue norvasc 5, Carvedilol 25, hydralazine 50 TID, losartan 50 for now nephrology on consult to assist w BP control 5. Edema probably multifactorial due to prednisone, CCB, limited mobility. weight up nearly 4kg will give lasix and monitor. 6.DVT proph: SQ heparin. Code Visit Inpatient E&M: 03124 Subs Hosp L2
[2018-07-13] MEDS: Furosemide 40 MG Tablet PO (17:01)
[2018-07-13 17:20] LABS: Bedside Glucose 168 mg/dL (70-110)
[2018-07-13] MEDS: Hydrocortisone 25 MG Suppository RECTAL (17:49)
[2018-07-13 20:24] VITALS: BP 158/65; PULSE 62; RESP 18; TEMP 36.6; O2SAT 98
[2018-07-13] MEDS: Montelukast 10 MG Tablet PO (20:48)
[2018-07-13] MEDS: Gabapentin 300 MG Capsule PO (20:48)
[2018-07-13 20:49] VITALS: BP 138/65; PULSE 62
[2018-07-13] MEDS: Atorvastatin Calcium 20 MG Tablet PO (20:49)
[2018-07-13 21:11] LABS: Bedside Glucose 293 mg/dL (70-110)
[2018-07-14 06:27] VITALS: BP 159/72; PULSE 65
[2018-07-14] MEDS: busPIRone 5 MG Tablet PO ×3 (06:27→21:56)
[2018-07-14] MEDS: hydrALAZINE 50 MG Tablet PO ×3 (06:27→21:59)
[2018-07-14 07:10] LABS: Bedside Glucose 163 mg/dL (70-110)
[2018-07-14 07:23] VITALS: BP 159/72; PULSE 65; RESP 18; TEMP 36.6; O2SAT 97
[2018-07-14] MEDS: Insulin Lispro 100 UNIT/ML INSULN.PEN SC ×7 (07:45→21:56)
[2018-07-14] MEDS: Losartan Potassium 50 MG Tablet PO (07:46)
[2018-07-14] MEDS: predniSONE 20 MG Tablet 60 MG PO (07:46)
[2018-07-14] MEDS: Calcium (Elemental) 500 MG Tablet PO ×2 (07:46→16:32)
[2018-07-14] MEDS: Multivitamins,Ther W-Minerals Tablet 1 TABLET PO (07:46)
[2018-07-14] MEDS: Carvedilol 25 MG Tablet PO ×2 (07:47→21:57)
[2018-07-14] MEDS: Sertraline 100 MG Tablet PO (07:47)
[2018-07-14] MEDS: amLODIPine 5 MG Tablet PO (07:47)
[2018-07-14] MEDS: Pantoprazole Sodium 20 MG Tablet PO (07:47)
[2018-07-14] MEDS: Furosemide 40 MG Tablet PO (07:50)
[2018-07-14 08:09] LABS: Anion Gap 11 (5-15); BUN 100 mg/dL (7-18); BUN/Creat Ratio 38.5 RATIO (10-20); Calcium,Total 8.4 mg/dL (8.5-10.1); Chloride 107 mmol/L (98-107); EST Glomerular Filtration Rate 20 mL/min (>60); Est Glom Filt Rate - Afr Amer 25 mL/min (>60); Estimated Creatinine Clearance 19.11 ml/min; Glucose 166 mg/dL (74-106); Potassium 4.3 mmol/L (3.5-5.1); Sodium Level 142 mmol/L (136-145)
[2018-07-14] MEDS: Heparin Injection (Vial) 5,000 UNIT/ML VIAL 5000 UNIT SC ×2 (09:54→21:56)
[2018-07-14] MEDS: Collagenase 30gm Tube 1 APPLIC TOPICAL (09:56)
[2018-07-14 12:15] LABS: Bedside Glucose 185 mg/dL (70-110)
[2018-07-14 14:08] VITALS: PULSE 78
--- NOTE | 2018-07-14 15:19 | PCM.PN.HOSP ---
Subjective: Follow up edema States that her edema is improved. Vitals/I&O's: Vital Signs Temp Pulse Resp BP Pulse Ox 36.6 C 78 18 159/72 H 97 07/14/18 07:23 07/14/18 14:08 07/14/18 07:23 07/14/18 07:23 07/14/18 07:23 Oxygen Delivery Method Room Air Weight: 114.36 kg Body Mass Index (BMI) 44.7 Intake and Output for Last 24 Hours 07/12/18 07/13/18 07/14/18 23:59 23:59 23:59 Intake Total 600 / 600 480 / 480 Balance 600 / 600 480 / 480 General: Alert, No apparent distress, - - on bedpan. Oral: Moist Mucosa, No Gingival or Mucosal Lesions/ Ulcerations Psych/Mental Status: Normal Affect, Appropriate Comment: Patient on bedpan, did not examine further. Laboratory Results 07/13/18 17:00: POC Glucose 168 H 07/13/18 20:45: POC Glucose 293 H 07/14/18 06:38: POC Glucose 163 H 07/14/18 07:38: Sodium 142, Potassium 4.3, Chloride 107, Carbon Dioxide 24.0, Anion Gap 11, BUN 100 H, Creatinine 2.60 H, Estim Creat Clear Calc 19.11, Est GFR (MDRD) Af Amer 25 L, Est GFR (MDRD) Non-Af 20 L, BUN/Creatinine Ratio 38.5 H, Glucose 166 H, Calcium 8.4 L 07/14/18 11:58: POC Glucose 185 H Current Medications Acetaminophen (Tylenol) 650 mg PO Q8H PRN PRN PRN Reason: PAIN Last Admin: 06/27/18 05:46 Dose: 650 mg Amlodipine Besylate (Norvasc) 5 mg PO DAILY [facility] Last Admin: 07/14/18 07:47 Dose: 5 mg Atorvastatin Calcium (Lipitor) 20 mg PO QHS [facility] Last Admin: 07/13/18 20:49 Dose: 20 mg Bisacodyl (Dulcolax) 10 mg RECTAL .PRN X 1 PRN PRN Reason: Constipation Last Admin: 06/26/18 14:29 Dose: 10 mg Buspirone HCl (Buspar) 5 mg PO TID [facility] Last Admin: 07/14/18 14:08 Dose: 5 mg Calcium Carbonate (Os-Chinedu 500) 500 mg PO BIDCM [facility] Last Admin: 07/14/18 07:46 Dose: 500 mg Carvedilol (Coreg) 25 mg PO BID [facility] Last Admin: 07/14/18 07:47 Dose: 25 mg Collagenase (Santyl) 1 applic TOPICAL DAILY [facility]; Protocol Last Admin: 07/14/18 09:56 Dose: 1 applicatio Gabapentin (Neurontin) 300 mg PO QHS [facility] Last Admin: 07/13/18 20:48 Dose: 300 mg Heparin Sodium (Porcine) (Heparin Na) 5,000 unit SC Q12 [facility] Last Admin: 07/14/18 09:54 Dose: 5,000 unit Hydralazine HCl (Apresoline) 50 mg PO TID [facility] Last Admin: 07/14/18 14:08 Dose: 50 mg Hydrocortisone Acetate (Anusol Hc) 25 mg RECTAL BID PRN PRN PRN Reason: Hemorrhoids Last Admin: 07/13/18 17:49 Dose: 25 mg Insulin Glargine (Lantus (Bkc)) 24 units SC DAILY [facility] Last Admin: 07/14/18 09:55 Dose: 24 u Insulin Human Lispro (Humalog Kwikpen (Bkc)) 0 unit SC ACHS [facility]; Protocol Last Admin: 07/14/18 12:01 Dose: 3 u Insulin Human Lispro (Humalog Kwikpen (Bkc)) 5 unit SC BID@1200,1700 [facility] Last Admin: 07/14/18 12:01 Dose: 5 units Insulin Human Lispro (Humalog Kwikpen (Bkc)) 4 unit SC DAILY@0700 [facility] Last Admin: 07/14/18 07:45 Dose: 4 units Losartan Potassium (Cozaar) 50 mg PO DAILY [facility] Last Admin: 07/14/18 07:46 Dose: 50 mg Magnesium Hydroxide (Milk Of Magnesia) 30 ml PO .PRN X 1 PRN PRN Reason: Constipation Menthol (Bengay Vanishing Scent) 1 applic TOPICAL TID PRN PRN PRN Reason: PAIN Last Admin: 06/27/18 10:32 Dose: 1 applic Montelukast Sodium (Singulair) 10 mg PO QHS [facility] Last Admin: 07/13/18 20:48 Dose: 10 mg Multivitamins/Minerals (Multivitamin With Minerals) 1 tablet PO DAILY@0800 [facility] Last Admin: 07/14/18 07:46 Dose: 1 tablet Ondansetron HCl (Zofran Odt) 4 mg PO Q8H PRN PRN PRN Reason: NAUSEA Last Admin: 06/27/18 05:46 Dose: 4 mg Pantoprazole Sodium (Protonix) 20 mg PO DAILY [facility] Last Admin: 07/14/18 07:47 Dose: 20 mg Prednisone () 60 mg PO DAILY@0800 [facility] Last Admin: 07/14/18 07:46 Dose: 60 mg Senna/Docusate Sodium (Senokot-S, Leti-Colace) 2 tablet PO BID [facility] Last Admin: 07/14/18 07:47 Dose: Not Given Sertraline HCl (Zoloft) 100 mg PO DAILY [facility] Last Admin: 07/14/18 07:47 Dose: 100 mg Sodium Chloride () 5 - 15 ml IV UD PRN PRN Reason: SALINE FLUSH Last Admin: 06/22/18 21:43 Dose: 10 ml Sodium Chloride () 5 - 15 ml IV UD PRN PRN Reason: SALINE FLUSH Medical Necessity - Tobacco Use Smoking Status: Never smoker Tobacco Use: Non-smoker Assessment/Plan All Active Problems Debility (Acute) 1. 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 2. CKD 3 stable avoid nephrotoxic agents Creatinine down slightly. 3. DM2 uncontrolled exacerbated by steroids increase lantus to 24 continue prandial insulin at 4 in AM and 5 at lunch and dinner for now. 4. HTN has been high for the most part continue norvasc 5, Carvedilol 25, hydralazine 50 TID, losartan 50 for now nephrology on consult to assist w BP control 5. Edema probably multifactorial due to prednisone, CCB, limited mobility. weight up nearly 4kg received 2 doses of 40mg of PO Lasix. Will give an additional dose today and follow up BMP in AM. 6.DVT proph: SQ heparin. Discussed with nursing, dietary where the patient may be snacking as to account for her weight gain. I feel the patient's weight gain is related with fluid retention primarily due to the steroids that she is been receiving. I do not feel that having further carbohydrate restriction is necessary. If anything it feels more fluid restriction would probably be more benefit. Code Visit Inpatient E&M: 10433 Subs Hosp L1
--- NOTE | 2018-07-14 15:23 | PN_ITS ---
Subjective: Follow up edema States that her edema is improved. Vitals/I&O's: Vital Signs Temp Pulse Resp BP Pulse Ox 36.6 C 78 18 159/72 H 97 07/14/18 07:23 07/14/18 14:08 07/14/18 07:23 07/14/18 07:23 07/14/18 07:23 Oxygen Delivery Method Room Air Weight: 114.36 kg Body Mass Index (BMI) 44.7 Intake and Output for Last 24 Hours 07/12/18 07/13/18 07/14/18 23:59 23:59 23:59 Intake Total 600 / 600 480 / 480 Balance 600 / 600 480 / 480 General: Alert, No apparent distress, - - on bedpan. Oral: Moist Mucosa, No Gingival or Mucosal Lesions/ Ulcerations Psych/Mental Status: Normal Affect, Appropriate Comment: Patient on bedpan, did not examine further. Laboratory Results 07/13/18 17:00: POC Glucose 168 H 07/13/18 20:45: POC Glucose 293 H 07/14/18 06:38: POC Glucose 163 H 07/14/18 07:38: Sodium 142, Potassium 4.3, Chloride 107, Carbon Dioxide 24.0, Anion Gap 11, BUN 100 H, Creatinine 2.60 H, Estim Creat Clear Calc 19.11, Est GFR (MDRD) Af Amer 25 L, Est GFR (MDRD) Non-Af 20 L, BUN/Creatinine Ratio 38.5 H , Glucose 166 H, Calcium 8.4 L 07/14/18 11:58: POC Glucose 185 H Current Medications Acetaminophen (Tylenol) 650 mg PO Q8H PRN PRN PRN Reason: PAIN Last Admin: 06/27/18 05:46 Dose: 650 mg Amlodipine Besylate (Norvasc) 5 mg PO DAILY [facility] Last Admin: 07/14/18 07:47 Dose: 5 mg Atorvastatin Calcium (Lipitor) 20 mg PO QHS [facility] Last Admin: 07/13/18 20:49 Dose: 20 mg Bisacodyl (Dulcolax) 10 mg RECTAL .PRN X 1 PRN PRN Reason: Constipation Last Admin: 06/26/18 14:29 Dose: 10 mg Buspirone HCl (Buspar) 5 mg PO TID [facility] Last Admin: 07/14/18 14:08 Dose: 5 mg Calcium Carbonate (Os-Chinedu 500) 500 mg PO BIDCM [facility] Last Admin: 07/14/18 07:46 Dose: 500 mg Carvedilol (Coreg) 25 mg PO BID [facility] Last Admin: 07/14/18 07:47 Dose: 25 mg Collagenase (Santyl) 1 applic TOPICAL DAILY [facility]; Protocol Last Admin: 07/14/18 09:56 Dose: 1 applicatio Gabapentin (Neurontin) 300 mg PO QHS [facility] Last Admin: 07/13/18 20:48 Dose: 300 mg Heparin Sodium (Porcine) (Heparin Na) 5,000 unit SC Q12 [facility] Last Admin: 07/14/18 09:54 Dose: 5,000 unit Hydralazine HCl (Apresoline) 50 mg PO TID [facility] Last Admin: 07/14/18 14:08 Dose: 50 mg Hydrocortisone Acetate (Anusol Hc) 25 mg RECTAL BID PRN PRN PRN Reason: Hemorrhoids Last Admin: 07/13/18 17:49 Dose: 25 mg Insulin Glargine (Lantus (Bkc)) 24 units SC DAILY [facility] Last Admin: 07/14/18 09:55 Dose: 24 u Insulin Human Lispro (Humalog Kwikpen (Bkc)) 0 unit SC ACHS [facility]; Protocol Last Admin: 07/14/18 12:01 Dose: 3 u Insulin Human Lispro (Humalog Kwikpen (Bkc)) 5 unit SC BID@1200,1700 [facility] Last Admin: 07/14/18 12:01 Dose: 5 units Insulin Human Lispro (Humalog Kwikpen (Bkc)) 4 unit SC DAILY@0700 [facility] Last Admin: 07/14/18 07:45 Dose: 4 units Losartan Potassium (Cozaar) 50 mg PO DAILY [facility] Last Admin: 07/14/18 07:46 Dose: 50 mg Magnesium Hydroxide (Milk Of Magnesia) 30 ml PO .PRN X 1 PRN PRN Reason: Constipation Menthol (Bengay Vanishing Scent) 1 applic TOPICAL TID PRN PRN PRN Reason: PAIN Last Admin: 06/27/18 10:32 Dose: 1 applic Montelukast Sodium (Singulair) 10 mg PO QHS [facility] Last Admin: 07/13/18 20:48 Dose: 10 mg Multivitamins/Minerals (Multivitamin With Minerals) 1 tablet PO DAILY@0800 [facility] Last Admin: 07/14/18 07:46 Dose: 1 tablet Ondansetron HCl (Zofran Odt) 4 mg PO Q8H PRN PRN PRN Reason: NAUSEA Last Admin: 06/27/18 05:46 Dose: 4 mg Pantoprazole Sodium (Protonix) 20 mg PO DAILY [facility] Last Admin: 07/14/18 07:47 Dose: 20 mg Prednisone () 60 mg PO DAILY@0800 [facility] Last Admin: 07/14/18 07:46 Dose: 60 mg Senna/Docusate Sodium (Senokot-S, Leti-Colace) 2 tablet PO BID [facility] Last Admin: 07/14/18 07:47 Dose: Not Given Sertraline HCl (Zoloft) 100 mg PO DAILY [facility] Last Admin: 07/14/18 07:47 Dose: 100 mg Sodium Chloride () 5 - 15 ml IV UD PRN PRN Reason: SALINE FLUSH Last Admin: 06/22/18 21:43 Dose: 10 ml Sodium Chloride () 5 - 15 ml IV UD PRN PRN Reason: SALINE FLUSH Medical Necessity - Tobacco Use Smoking Status: Never smoker Tobacco Use: Non-smoker Assessment/Plan All Active Problems Debility (Acute) 1. 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 2. CKD 3 stable avoid nephrotoxic agents Creatinine down slightly. 3. DM2 uncontrolled exacerbated by steroids increase lantus to 24 continue prandial insulin at 4 in AM and 5 at lunch and dinner for now. 4. HTN has been high for the most part continue norvasc 5, Carvedilol 25, hydralazine 50 TID, losartan 50 for now nephrology on consult to assist w BP control 5. Edema probably multifactorial due to prednisone, CCB, limited mobility. weight up nearly 4kg received 2 doses of 40mg of PO Lasix. Will give an additional dose today and follow up BMP in AM. 6.DVT proph: SQ heparin. Discussed with nursing, dietary where the patient may be snacking as to account for her weight gain. I feel the patient's weight gain is related with fluid retention primarily due to the steroids that she is been receiving. I do not feel that having further carbohydrate restriction is necessary. If anything it feels more fluid restriction would probably be more benefit. Code Visit Inpatient E&M: 37698 Subs Hosp L1
[2018-07-14 16:50] LABS: Bedside Glucose 250 mg/dL (70-110)
[2018-07-14 19:53] VITALS: BP 136/76; PULSE 63; RESP 18; TEMP 36.7; O2SAT 96
[2018-07-14 21:05] LABS: Bedside Glucose 268 mg/dL (70-110)
[2018-07-14] MEDS: Montelukast 10 MG Tablet PO (21:55)
[2018-07-14] MEDS: Atorvastatin Calcium 20 MG Tablet PO (21:56)
[2018-07-14] MEDS: Gabapentin 300 MG Capsule PO (21:56)
[2018-07-14 21:59] VITALS: PULSE 64
[2018-07-15 03:36] LABS: Bedside Glucose 174 mg/dL (70-110)
[2018-07-15 06:08] VITALS: PULSE 62
[2018-07-15] MEDS: hydrALAZINE 50 MG Tablet PO ×3 (06:08→21:18)
[2018-07-15] MEDS: busPIRone 5 MG Tablet PO ×3 (06:09→21:18)
[2018-07-15 06:21] LABS: Bedside Glucose 152 mg/dL (70-110)
[2018-07-15 06:47] VITALS: BP 153/77; PULSE 64; RESP 18; TEMP 36.6; O2SAT 96
[2018-07-15] MEDS: Insulin Lispro 100 UNIT/ML INSULN.PEN SC ×7 (07:30→21:32)
[2018-07-15] MEDS: Calcium (Elemental) 500 MG Tablet PO ×2 (07:53→17:32)
[2018-07-15] MEDS: predniSONE 20 MG Tablet 60 MG PO (07:53)
[2018-07-15] MEDS: Multivitamins,Ther W-Minerals Tablet 1 TABLET PO (07:53)
[2018-07-15] MEDS: Losartan Potassium 50 MG Tablet PO (07:54)
[2018-07-15] MEDS: Pantoprazole Sodium 20 MG Tablet PO (07:54)
[2018-07-15] MEDS: Furosemide 20 MG Tablet PO (07:54)
[2018-07-15] MEDS: Carvedilol 25 MG Tablet PO ×2 (07:54→21:18)
[2018-07-15] MEDS: amLODIPine 5 MG Tablet PO (07:54)
[2018-07-15] MEDS: Sertraline 100 MG Tablet PO (07:55)
[2018-07-15] MEDS: Heparin Injection (Vial) 5,000 UNIT/ML VIAL 5000 UNIT SC ×2 (07:59→21:26)
[2018-07-15 08:00] LABS: Anion Gap 10 (5-15); BUN 102 mg/dL (7-18); Calcium,Total 8.4 mg/dL (8.5-10.1); Chloride 106 mmol/L (98-107); Creatinine, Serum 2.49 mg/dL (0.55-1.02); EST Glomerular Filtration Rate 21 mL/min (>60); Est Glom Filt Rate - Afr Amer 26 mL/min (>60); Estimated Creatinine Clearance 19.95 ml/min; Glucose 138 mg/dL (74-106); Potassium 4.3 mmol/L (3.5-5.1); Sodium Level 140 mmol/L (136-145)
[2018-07-15] MEDS: Collagenase 30gm Tube 1 APPLIC TOPICAL (08:18)
[2018-07-15 10:00] VITALS: PULSE 80
[2018-07-15 11:56] LABS: Bedside Glucose 258 mg/dL (70-110)
--- NOTE | 2018-07-15 12:59 | NURSING ---
1100 Dr Doraod on floor, informed of AM labs- BUN 102, Creat 2.49. no new orders. Karla Sylvester RN
--- NOTE | 2018-07-15 13:09 | PN_ITS ---
Subjective: Follow up Edema Decreased edema in LE. Vitals/I&O's: Vital Signs Temp Pulse Resp BP Pulse Ox 36.6 C 80 18 153/77 H 96 07/15/18 06:47 07/15/18 10:00 07/15/18 06:47 07/15/18 06:47 07/15/18 06:47 Oxygen Delivery Method Room Air Weight: 114.36 kg Body Mass Index (BMI) 44.7 Intake and Output for Last 24 Hours 07/13/18 07/14/18 07/15/18 23:59 23:59 23:59 Intake Total 600 / 600 1330 / 1330 1160 / 1160 Output Total 1500 / 1500 1000 / 1000 Balance 600 / 600 -170 / -170 160 / 160 General: Alert, No apparent distress HEENT: Atraumatic, Normocephalic Extremities: No Calf Tenderness, Edema - decreased, some wrinkles in skin in LE. Laboratory Results 07/14/18 16:31: POC Glucose 250 H 07/14/18 20:59: POC Glucose 268 H 07/15/18 03:29: POC Glucose 174 H 07/15/18 06:09: POC Glucose 152 H 07/15/18 07:25: Sodium 140, Potassium 4.3, Chloride 106, Carbon Dioxide 24.0, Anion Gap 10, BUN 102 H*, Creatinine 2.49 H, Estim Creat Clear Calc 19.95, Est GFR (MDRD) Af Amer 26 L, Est GFR (MDRD) Non-Af 21 L, BUN/Creatinine Ratio 41.0 H , Glucose 138 H, Calcium 8.4 L 07/15/18 11:51: POC Glucose 258 H Current Medications Acetaminophen (Tylenol) 650 mg PO Q8H PRN PRN PRN Reason: PAIN Last Admin: 06/27/18 05:46 Dose: 650 mg Amlodipine Besylate (Norvasc) 5 mg PO DAILY [facility] Last Admin: 07/15/18 07:54 Dose: 5 mg Atorvastatin Calcium (Lipitor) 20 mg PO QHS [facility] Last Admin: 07/14/18 21:56 Dose: 20 mg Bisacodyl (Dulcolax) 10 mg RECTAL .PRN X 1 PRN PRN Reason: Constipation Last Admin: 06/26/18 14:29 Dose: 10 mg Buspirone HCl (Buspar) 5 mg PO TID [facility] Last Admin: 07/15/18 06:09 Dose: 5 mg Calcium Carbonate (Os-Chinedu 500) 500 mg PO BIDCM [facility] Last Admin: 07/15/18 07:53 Dose: 500 mg Carvedilol (Coreg) 25 mg PO BID [facility] Last Admin: 07/15/18 07:54 Dose: 25 mg Collagenase (Santyl) 1 applic TOPICAL DAILY [facility]; Protocol Last Admin: 07/15/18 08:18 Dose: 1 applicatio Furosemide (Lasix) 20 mg PO DAILY [facility] Stop: 07/17/18 10:01 Last Admin: 07/15/18 07:54 Dose: 20 mg Gabapentin (Neurontin) 300 mg PO QHS [facility] Last Admin: 07/14/18 21:56 Dose: 300 mg Heparin Sodium (Porcine) (Heparin Na) 5,000 unit SC Q12 [facility] Last Admin: 07/15/18 07:59 Dose: 5,000 unit Hydralazine HCl (Apresoline) 50 mg PO TID [facility] Last Admin: 07/15/18 06:08 Dose: 50 mg Hydrocortisone Acetate (Anusol Hc) 25 mg RECTAL BID PRN PRN PRN Reason: Hemorrhoids Last Admin: 07/13/18 17:49 Dose: 25 mg Insulin Glargine (Lantus (Bkc)) 24 units SC DAILY [facility] Last Admin: 07/15/18 10:30 Dose: 24 u Insulin Human Lispro (Humalog Kwikpen (Bkc)) 0 unit SC ACHS [facility]; Protocol Last Admin: 07/15/18 12:03 Dose: 6 u Insulin Human Lispro (Humalog Kwikpen (Bkc)) 5 unit SC BID@1200,1700 [facility] Last Admin: 07/15/18 12:03 Dose: 5 units Insulin Human Lispro (Humalog Kwikpen (Bkc)) 4 unit SC DAILY@0700 [facility] Last Admin: 07/15/18 07:30 Dose: 4 units Losartan Potassium (Cozaar) 50 mg PO DAILY [facility] Last Admin: 07/15/18 07:54 Dose: 50 mg Magnesium Hydroxide (Milk Of Magnesia) 30 ml PO .PRN X 1 PRN PRN Reason: Constipation Menthol (Bengay Vanishing Scent) 1 applic TOPICAL TID PRN PRN PRN Reason: PAIN Last Admin: 06/27/18 10:32 Dose: 1 applic Montelukast Sodium (Singulair) 10 mg PO QHS [facility] Last Admin: 07/14/18 21:55 Dose: 10 mg Multivitamins/Minerals (Multivitamin With Minerals) 1 tablet PO DAILY@0800 [facility] Last Admin: 07/15/18 07:53 Dose: 1 tablet Ondansetron HCl (Zofran Odt) 4 mg PO Q8H PRN PRN PRN Reason: NAUSEA Last Admin: 06/27/18 05:46 Dose: 4 mg Pantoprazole Sodium (Protonix) 20 mg PO DAILY [facility] Last Admin: 07/15/18 07:54 Dose: 20 mg Prednisone () 60 mg PO DAILY@0800 [facility] Last Admin: 07/15/18 07:53 Dose: 60 mg Senna/Docusate Sodium (Senokot-S, Leti-Colace) 2 tablet PO BID [facility] Last Admin: 07/15/18 08:08 Dose: Not Given Sertraline HCl (Zoloft) 100 mg PO DAILY [facility] Last Admin: 07/15/18 07:55 Dose: 100 mg Sodium Chloride () 5 - 15 ml IV UD PRN PRN Reason: SALINE FLUSH Last Admin: 06/22/18 21:43 Dose: 10 ml Sodium Chloride () 5 - 15 ml IV UD PRN PRN Reason: SALINE FLUSH Medical Necessity - Tobacco Use Smoking Status: Never smoker Tobacco Use: Non-smoker Assessment/Plan All Active Problems Debility (Acute) 1. 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 2. CKD 3 stable avoid nephrotoxic agents Creatinine down slightly. 3. DM2 uncontrolled exacerbated by steroids increase lantus to 24 continue prandial insulin at 4 in AM and 5 at lunch and dinner for now. 4. HTN has been high for the most part continue norvasc 5, Carvedilol 25, hydralazine 50 TID, losartan 50 for now nephrology on consult to assist w BP control 5. Edema probably multifactorial due to prednisone, CCB, limited mobility. weight up nearly 4kg received 2 doses of 40mg of PO Lasix. Will give an additional dose today and follow up BMP in AM. 6.DVT proph: SQ heparin. Code Visit Inpatient E&M: 67012 [facility] H[facility] L1
[2018-07-15 13:25] VITALS: BP 144/67; PULSE 69
[2018-07-15 16:56] LABS: Bedside Glucose 278 mg/dL (70-110)
[2018-07-15 20:16] VITALS: BP 148/80; PULSE 69; RESP 18; TEMP 36.7; O2SAT 95
[2018-07-15] MEDS: Montelukast 10 MG Tablet PO (21:17)
[2018-07-15 21:18] VITALS: PULSE 69
[2018-07-15] MEDS: Atorvastatin Calcium 20 MG Tablet PO (21:18)
[2018-07-15] MEDS: Gabapentin 300 MG Capsule PO (21:18)
[2018-07-15 22:10] LABS: Bedside Glucose 346 mg/dL (70-110)
[2018-07-16 04:16] LABS: Bedside Glucose 229 mg/dL (70-110)
--- NOTE | 2018-07-16 05:39 | NURSING ---
Pt refused a shower for a.m. ADLs by nursing staff this morning. Pt states, therapy usually performs this task and I had such a hard time transferring yesterday. I'd prefer not taking a shower.
--- NOTE | 2018-07-16 06:02 | NURSING ---
Pt refused getting up from bed at this time for daily weight.
[2018-07-16 06:15] VITALS: PULSE 62
[2018-07-16] MEDS: hydrALAZINE 50 MG Tablet PO ×2 (06:15→13:46)
[2018-07-16] MEDS: busPIRone 5 MG Tablet PO ×2 (06:15→13:46)
[2018-07-16 07:00] VITALS: BP 151/82; PULSE 56; RESP 18; TEMP 36.6; O2SAT 100
[2018-07-16 07:21] LABS: Bedside Glucose 158 mg/dL (70-110)
[2018-07-16] MEDS: Carvedilol 25 MG Tablet PO (08:41)
[2018-07-16] MEDS: Calcium (Elemental) 500 MG Tablet PO (08:41)
[2018-07-16] MEDS: predniSONE 20 MG Tablet 60 MG PO (08:41)
[2018-07-16] MEDS: Multivitamins,Ther W-Minerals Tablet 1 TABLET PO (08:41)
[2018-07-16] MEDS: Insulin Lispro 100 UNIT/ML INSULN.PEN SC ×2 (08:42)
[2018-07-16] MEDS: Furosemide 20 MG Tablet PO (08:42)
[2018-07-16] MEDS: Sertraline 100 MG Tablet PO (08:42)
[2018-07-16] MEDS: amLODIPine 5 MG Tablet PO (08:42)
[2018-07-16] MEDS: Pantoprazole Sodium 20 MG Tablet PO (08:42)
[2018-07-16] MEDS: Losartan Potassium 50 MG Tablet PO (08:46)
--- NOTE | 2018-07-16 09:45 | CASEMGMT ---
Team meeting held. Patient present. No support person present. No discharge date set at this time. Dr. Boyer is currently recommending for patient to transition to community hospital for medical care that is not able to be provided at this facility. Patient is agreeable to recommendation. Dr. Trent working with medical team on transfer, possibly today. Patient does have an insurance update due tomorrow if patient continues with stay on unit. Patient to continue with further care and treatment vs. medical transfer. Support given. Will continue to follow. MERCY Villalba
--- NOTE | 2018-07-16 10:19 | VDLE_ITS ---
Reason For Study: BLE swellling RIGHT LEFT GSV is normal. GSV is normal. CFV is compressible, spontaneous, phasic, CFV is compressible, spontaneous, phasic, competent and demonstrates normal competent, and demonstrates normal augmentation. augmentation. FV is compressible, spontaneous, phasic, FV is compressible, spontaneous, phasic, competent and demonstrates normal competent and demonstrates normal augmentation. augmentation. POP V is compressible, spontaneous, phasic, POP V is compressible, spontaneous, phasic, competent and demonstrates normal competent and demonstrates normal augmentation. augmentation. T/P Trunk is compressible. T/P Trunk is compressible. PTV is compressible. PTV is compressible. RT PerV is compressible. LT PerV is compressible. Procedure Exam performed portable in patient room. The study was technically difficult. A preliminary report was called and/or faxed to Dr. Boyer & RU. Interpretation Summary No evidence for acute deep venous thrombosis bilateral lower extremities with patent and compressible bilateral great saphenous veins. Ordering Physician: Shalini Boyer Referring Physician: Param Razo Performed By: Tara Bergman, DAISY, RVT
[2018-07-16] MEDS: Heparin Injection (Vial) 5,000 UNIT/ML VIAL 5000 UNIT SC (10:43)
[2018-07-16] MEDS: Collagenase 30gm Tube 1 APPLIC TOPICAL (10:43)
[2018-07-16] MEDS: LORazepam 0.5 MG Tablet PO (11:35)
[2018-07-16 11:40] LABS: Bedside Glucose 131 mg/dL (70-110)
--- NOTE | 2018-07-16 11:59 | PCM.RU.DC ---
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 She has been having B/L LE swelling which has been treated with Lasix on Nephrology advice. B/L LE venous Doppler done-prelim negative for DVT. Per patient over the past 2-3 days her weakness in the LE has worsened. Staffed in team meeting today. All questions were answered. Decision was made to transfer patient to tertiary care for possible plasmapheresis given that patient is on steroids but has worsening LE weakness - Physical Exam General: Alert HEENT: Normocephalic Neck: Supple Lungs: Normal air movement Cardiovascular: Normal S1, Normal S2 Abdomen: Bowel Sounds Present Extremities: No cyanosis Neurological: - - consious, alert, AoAx3, CN 2-12 grossly intact, power 5/5 both UE, 1/5 both LE, no sensory loss except moderated loss to light touch below mid left calf, areflexia, gait deferred. Psych/Mental Status: Anxious Vital Signs Temp Pulse Resp BP Pulse Ox 97.8 F 56 L 18 151/82 H 100 07/16/18 07:00 07/16/18 07:00 07/16/18 07:00 07/16/18 07:00 07/16/18 07:00 Oxygen Delivery Method Room Air Weight: 112.4 kg Body Mass Index (BMI) 44.7 Intake and Output for Last 24 Hours 07/14/18 07/15/18 07/16/18 23:59 23:59 23:59 Intake Total 1330 / 1330 1860 / 1860 460 / 460 Output Total 1500 / 1500 2350 / 2350 525 / 525 Balance -170 / -170 -490 / -490 -65 / -65 POC Glucose 07/16/18 07/16/18 07/16/18 11:37 06:20 04:09 POC Glucose 131 H 158 H 229 H 07/15/18 07/15/18 21:28 16:46 POC Glucose 346 H 278 H Discharge Diet: - - Renal, diabetic diet Weight Bearing Status: Weight bearing as tolerated Call your doctor if your incision/area has: Sudden Increased Bleeding, Increased Pain/ Swelling, Increased Redness, Foul Smelling Discharge, Swelling at the incision site Call your doctor if you observe: Fever of 101 or Higher, Coldness, Increased Pain, Numbness or Tingling, Change in Color, Inability to urinate, Inability to have a bowel movement, Using more than one pad per hour, Shortness of breath, Dizziness, Fainting spells, Swelling in the ankles, Chest pain, Prolonged hiccoughing, Increased palpitations (irregular heartbeat), Calf discomfort, Uncontrolled pain, - - Patient being transferred to [facility] for furhter evaluation and treatment of CIDP/LE weakness Home Medications: Medications to take at Discharge Montelukast [Singulair] 10 mg PO QHS 10/29/13 Gabapentin [Neurontin] 300 mg PO QHS 06/14/18 Multivit-Min/Iron/Folic/Lutein [Centrum Silver Women Tablet] 1 tab PO DAILY 06/14/18 Sertraline HCl 100 mg PO DAILY 06/14/18 Calcium Carbonate 500 mg PO BID 06/20/18 Insulin Glargine [Lantus SoloStar Pen] 30 units SC BID 06/20/18 Pantoprazole Sodium [Protonix] 20 mg PO DAILY 06/20/18 hydrALAZINE [Apresoline] 50 mg PO TID 06/20/18 predniSONE tablet 60 mg PO DAILY@0800 06/20/18 Amlodipine [Norvasc] 5 mg PO DAILY tablet 07/16/18 Atorvastatin Calcium [Lipitor] 20 mg PO QHS tablet 07/16/18 Bisacodyl [Dulcolax] 10 mg RECTAL .PRN X 1 PRN suppos. 07/16/18 Carvedilol [Coreg (Beta Shannon)] 25 mg PO BID tablet 07/16/18 Collagenase [Santyl] 1 applic TOPICAL DAILY tube 07/16/18 Furosemide [Lasix] 20 mg PO DAILY tablet 07/16/18 Heparin Injection (Vial) [Heparin Na] 5,000 unit SC Q12 vial 07/16/18 Insulin Lispro [Humalog KwikPen] 4 unit SC DAILY@0700 insuln.pen 07/16/18 Insulin Lispro [Humalog KwikPen] 5 unit SC BID@1200,1700 insuln.pen 07/16/18 Insulin Lispro [Humalog KwikPen] See Protocol SC ACHS insuln.pen 07/16/18 Losartan Potassium [Cozaar] 50 mg PO DAILY tablet 07/16/18 Ondansetron [Zofran Odt] 4 mg PO Q8H PRN PRN tablet 07/16/18 busPIRone [Buspar] 5 mg PO TID tablet 07/16/18 Primary Care Physician: Param Razo MD [Primary Care Provider] - Please Follow Up With: Caden Shaw MD Disposition: Acute care Hospital Patient Condition:: Fair Rehab Course 58 yr F with PMH HTN, HLD, DM, CKD, Obesity admitted to [facility] IP RU s/p debility post B/L LE weakness and falls, for > 3 hrs therapy daily, with a goal of returning back home at or near her prior level of functional independence. Per patient she started having difficulty walking, with frequent falls, with bilateral LE weakness, gradually progressive over the past few months, with right foot drop, admitted to IP with above symptoms. NCS reported to show demyelinating features with conduction block consistent with CIDP, started on IV Solumedrol 1 g daily for 5 days following which patient felt she was doing better, continued on Prednisone 60 mg daily, IVIG avoided due to CKD, Rheumatological work up negative. LP, Lyme's ab testing, West Nile AB testing was negative. LP done showed WBCs-11, RBCs-0, Protein-33. MRI brain reported nothing acute, MRI C spine reported to show Broad-based midline and para midline disc herniation at C5-6 more prominent on the left side impinging on the left C6 nerve root and MRI L spine reported to show Lumbar spondylosis with disc herniations and foraminal narrowing at L4-5 and L5-S1. Spine surgery consult as outpatient. This morning in the staff meeting patient complained of worsening weakness in the bilateral LE, following which decision was made to transfer patient to a tertiary center for further evaluation and treatment with plasmapheresis. Patient has CKD with worsening creatinine for which she was followed up by Dr. Lew from Nephrology and advice followed. Nephrology also followed and adjusted medications for uncontrolled HTN. And is planned to see vascular surgery as outpatient for fistula placement. Hospitalist followed patient for better DM control and medical issue management. She complained of B/L LE swelling for which her amlodipine was lowered per nephrology advice, started on Lasix and had negative Doppler of the LE. Tolerated therapies well. GI/DVT prophylaxis. Fall precaution. Further medical management per hospitalist recommendation. Follow up with PCP, Nephrology and Neurology. Patient being transferred to tertiary center for further evaluation and management of CIDP. Meaningful Use Info Meaningful Use Diagnoses (Choose all that apply): None applicable
--- NOTE | 2018-07-16 12:03 | DS.PCM_ITS ---
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 She has been having B/L LE swelling which has been treated with Lasix on Nephrology advice. B/L LE venous Doppler done-prelim negative for DVT. Per patient over the past 2-3 days her weakness in the LE has worsened. Staffed in team meeting today. All questions were answered. Decision was made to transfer patient to tertiary care for possible plasmapheresis given that patient is on steroids but has worsening LE weakness - Physical Exam General: Alert HEENT: Normocephalic Neck: Supple Lungs: Normal air movement Cardiovascular: Normal S1, Normal S2 Abdomen: Bowel Sounds Present Extremities: No cyanosis Neurological: - - consious, alert, AoAx3, CN 2-12 grossly intact, power 5/5 both UE, 1/5 both LE, no sensory loss except moderated loss to light touch below mid left calf, areflexia, gait deferred. Psych/Mental Status: Anxious Vital Signs Temp Pulse Resp BP Pulse Ox 97.8 F 56 L 18 151/82 H 100 07/16/18 07:00 07/16/18 07:00 07/16/18 07:00 07/16/18 07:00 07/16/18 07:00 Oxygen Delivery Method Room Air Weight: 112.4 kg Body Mass Index (BMI) 44.7 Intake and Output for Last 24 Hours 07/14/18 07/15/18 07/16/18 23:59 23:59 23:59 Intake Total 1330 / 1330 1860 / 1860 460 / 460 Output Total 1500 / 1500 2350 / 2350 525 / 525 Balance -170 / -170 -490 / -490 -65 / -65 POC Glucose 07/16/18 07/16/18 07/16/18 11:37 06:20 04:09 POC Glucose 131 H 158 H 229 H 07/15/18 07/15/18 21:28 16:46 POC Glucose 346 H 278 H Discharge Diet: - - Renal, diabetic diet Weight Bearing Status: Weight bearing as tolerated Call your doctor if your incision/area has: Sudden Increased Bleeding, Increased Pain/ Swelling, Increased Redness, Foul Smelling Discharge, Swelling at the incision site Call your doctor if you observe: Fever of 101 or Higher, Coldness, Increased Pain, Numbness or Tingling, Change in Color, Inability to urinate, Inability to have a bowel movement, Using more than one pad per hour, Shortness of breath, Dizziness, Fainting spells, Swelling in the ankles, Chest pain, Prolonged hicco ughing, Increased palpitations (irregular heartbeat), Calf discomfort, Uncontrolled pain, - - Patient being transferred to [facility] for furhter evaluation and treatment of CIDP/LE weakness Home Medications: Medications to take at Discharge Montelukast [Singulair] 10 mg PO QHS 10/29/13 Gabapentin [Neurontin] 300 mg PO QHS 06/14/18 Multivit-Min/Iron/Folic/Lutein [Centrum Silver Women Tablet] 1 tab PO DAILY 06/14/18 Sertraline HCl 100 mg PO DAILY 06/14/18 Calcium Carbonate 500 mg PO BID 06/20/18 Insulin Glargine [Lantus SoloStar Pen] 30 units SC BID 06/20/18 Pantoprazole Sodium [Protonix] 20 mg PO DAILY 06/20/18 hydrALAZINE [Apresoline] 50 mg PO TID 06/20/18 predniSONE tablet 60 mg PO DAILY@0800 06/20/18 Amlodipine [Norvasc] 5 mg PO DAILY tablet 07/16/18 Atorvastatin Calcium [Lipitor] 20 mg PO QHS tablet 07/16/18 Bisacodyl [Dulcolax] 10 mg RECTAL .PRN X 1 PRN suppos. 07/16/18 Carvedilol [Coreg (Beta Shannon)] 25 mg PO BID tablet 07/16/18 Collagenase [Santyl] 1 applic TOPICAL DAILY tube 07/16/18 Furosemide [Lasix] 20 mg PO DAILY tablet 07/16/18 Heparin Injection (Vial) [Heparin Na] 5,000 unit SC Q12 vial 07/16/18 Insulin Lispro [Humalog KwikPen] 4 unit SC DAILY@0700 insuln.pen 07/16/18 Insulin Lispro [Humalog KwikPen] 5 unit SC BID@1200,1700 insuln.pen 07/16/18 Insulin Lispro [Humalog KwikPen] See Protocol SC ACHS insuln.pen 07/16/18 Losartan Potassium [Cozaar] 50 mg PO DAILY tablet 07/16/18 Ondansetron [Zofran Odt] 4 mg PO Q8H PRN PRN tablet 07/16/18 busPIRone [Buspar] 5 mg PO TID tablet 07/16/18 Primary Care Physician: Param Razo MD [Primary Care Provider] - Please Follow Up With: Caden Shaw MD Disposition: Acute care Hospital Patient Condition:: Fair Rehab Course 58 yr F with PMH HTN, HLD, DM, CKD, Obesity admitted to [facility] IP RU s/p debility post B/L LE weakness and falls, for > 3 hrs therapy daily, with a goal of returning back home at or near her prior level of functional independence. Per patient she started having difficulty walking, with frequent falls, with bilateral LE weakness, gradually progressive over the past few months, with right foot drop, admitted to IP with above symptoms. NCS reported to show demyelinating features with conduction block consistent with CIDP, started on IV Solumedrol 1 g daily for 5 days following which patient felt she was doing better, continued on Prednisone 60 mg daily, IVIG avoided due to CKD, Rheumatological work up negative. LP, Lyme's ab testing, West Nile AB testing was negative. LP done showed WBCs-11, RBCs-0, Protein-33. MRI brain reported nothing acute, MRI C spine reported to show Broad-based midline and para midline disc herniation at C5-6 more prominent on the left side impinging on the left C6 nerve root and MRI L spine reported to show Lumbar spondylosis with disc he rniations and foraminal narrowing at L4-5 and L5-S1. Spine surgery consult as outpatient. This morning in the staff meeting patient complained of worsening weakness in the bilateral LE, following which decision was made to transfer patient to a tertiary center for further evaluation and treatment with plasmapheresis. Patient has CKD with worsening creatinine for which she was followed up by Dr. Lew from Nephrology and advice followed. Nephrology also followed and adjusted medications for uncontrolled HTN. And is planned to see vascular surgery as outpatient for fistula placement. Hospitalist followed patient for better DM control and medical issue management. She complained of B/L LE swelling for which her amlodipine was lowered per nephrology advice, started on Lasix and had negative Doppler of the LE. Tolerated therapies well. GI/DVT prophylaxis. Fall precaution. Further medical management per hospitalist recommendation. Follow up with PCP, Nephrology and Neurology. Patient being tr ansferred to tertiary center for further evaluation and management of CIDP. Meaningful Use Info Meaningful Use Diagnoses (Choose all that apply): None applicable
--- NOTE | 2018-07-16 12:17 | NURSING ---
Called report to DAXA Mcclain ([facility]) pt will be picked up by Kiley Sal at 1400 being transported to [address]. Report # [phone]
--- NOTE | 2018-07-16 12:20 | PCM.DC ---
You will use the following diet at home:: Other - Renal, Diabetic Weight Bearing Status: Weight bearing as tolerated Call your doctor if your incision/area has: Sudden Increased Bleeding, Increased Pain/ Swelling, Increased Redness, Foul Smelling Discharge, Swelling at the incision site Call your doctor if you observe: Fever of 101 or Higher, Coldness, Increased Pain, Numbness or Tingling, Change in Color, Inability to urinate, Inability to have a bowel movement, Using more than one pad per hour, Shortness of breath, Dizziness, Fainting spells, Swelling in the ankles, Chest pain, Prolonged hiccoughing, Increased palpitations (irregular heartbeat), Calf discomfort, Uncontrolled pain, - - Patient being transferred to [facility] for furhter evaluation and treatment of CIDP/LE weakness Allergies/Adverse Reactions: Allergies codeine Allergy (Verified 06/14/18 17:11) Other CONFUSION latex Allergy (Verified 06/14/18 17:11) Hives Sulfa (Sulfonamide Antibiotics) Allergy (Verified 06/14/18 17:11) Rash Medications to take at Discharge Montelukast [Singulair] 10 mg PO QHS 10/29/13 Gabapentin [Neurontin] 300 mg PO QHS 06/14/18 Multivit-Min/Iron/Folic/Lutein [Centrum Silver Women Tablet] 1 tab PO DAILY 06/14/18 Sertraline HCl 100 mg PO DAILY 06/14/18 Calcium Carbonate 500 mg PO BID 06/20/18 Insulin Glargine [Lantus SoloStar Pen] 30 units SC BID 06/20/18 Pantoprazole Sodium [Protonix] 20 mg PO DAILY 06/20/18 hydrALAZINE [Apresoline] 50 mg PO TID 06/20/18 predniSONE tablet 60 mg PO DAILY@0800 06/20/18 Amlodipine [Norvasc] 5 mg PO DAILY tablet 07/16/18 Atorvastatin Calcium [Lipitor] 20 mg PO QHS tablet 07/16/18 Bisacodyl [Dulcolax] 10 mg RECTAL .PRN X 1 PRN suppos. 07/16/18 Carvedilol [Coreg (Beta Shannon)] 25 mg PO BID tablet 07/16/18 Collagenase [Santyl] 1 applic TOPICAL DAILY tube 07/16/18 Furosemide [Lasix] 20 mg PO DAILY tablet 07/16/18 Heparin Injection (Vial) [Heparin Na] 5,000 unit SC Q12 vial 07/16/18 Insulin Lispro [Humalog KwikPen] 4 unit SC DAILY@0700 insuln.pen 07/16/18 Insulin Lispro [Humalog KwikPen] 5 unit SC BID@1200,1700 insuln.pen 07/16/18 Insulin Lispro [Humalog KwikPen] See Protocol SC ACHS insuln.pen 07/16/18 Losartan Potassium [Cozaar] 50 mg PO DAILY tablet 07/16/18 Ondansetron [Zofran Odt] 4 mg PO Q8H PRN PRN tablet 07/16/18 busPIRone [Buspar] 5 mg PO TID tablet 07/16/18 Primary Care Physician: Param Razo MD [Primary Care Provider] - Please follow up with your Primary Care Physician in: Follow up with PCP in 1-2 weeks Test Results: Test results from this visit will be discussed in further detail at your follow-up appointment, if applicable. Please Follow Up With: Caden Shaw MD When: Follow up with Neurology in 2 weeks post discharge Proposed Discharge Date: 07/16/18
[2018-07-16 12:54] VITALS: BP 151/82; PULSE 56; RESP 18; TEMP -12.3; TEMP 9.8; O2SAT 100
--- NOTE | 2018-07-16 13:08 | CASEMGMT ---
Social Work Met with patient in room per patient request. Patient providing this socia worker with supportive documentation for Medicaid application to be faxed. This social security assessor faxing supportive documentation to [employer] [facility], attention Michela Hensley (patient assigned case technician). It has now been confirmed that patient will transfer to another hospital today, patient is aware of this information and nursing staff is setting up transportation. This social security assessor going over safety planning with patient in further details in the event that patient returns to home with family. Patient aware of [facility] resources and services. Support given. Raj GARCIA MSW
[2018-07-16 13:46] VITALS: PULSE 70
--- NOTE | 2018-07-16 15:05 | NURSING ---
Left message for Dr. Lew letting her know that she transferred to [facility]
--- NOTE | 2018-07-17 12:09 | CASEMGMT ---
Insurance Notified insurance of resident discharge on 07/16/18 to acute care setting. Auth#[id number] [facility]
== END 2018-07-16 14:13 | disposition short-term general hospital (02) | DRG 948 ==
PROVIDERS: Family Medicine; Hospitalist; Internal Medicine; Internal Medicine Nephrology; Nurse Practitioner Acute Care; Psychiatry & Neurology Neurology; Radiology Diagnostic Radiology; Admitting Provider Psychiatry & Neurology Neurology; Family Provider Family Medicine; PCP Family Medicine; Visit Provider Family Medicine
DX: R53.81 Other malaise (principal); G61.81 Chronic inflammatory demyelinating polyneuritis; I12.0 Hypertensive chronic kidney disease with stage 5 chronic kidney disease or end stage renal disease; N18.5 Chronic kidney disease, stage 5; Z68.41 Body mass index [BMI] 40.0-44.9, adult; E78.5 Hyperlipidemia, unspecified; E11.22 Type 2 diabetes mellitus with diabetic chronic kidney disease; E66.01 Morbid (severe) obesity due to excess calories; Z71.3 Dietary counseling and surveillance; M19.90 Unspecified osteoarthritis, unspecified site; E11.65 Type 2 diabetes mellitus with hyperglycemia; D64.9 Anemia, unspecified
CPT/HCPCS: 36415; 62270; 70551; 72141; 77003; 80048; 80069; 82570; 82575; 82784; 82945; 82947; 82962; 84156; 84157; 84165; 84166; 85027; 85610; 85652; 85730; 86140; 86225; 86226; 86235; 86256; 86334; 86335; 86618; 86788; 86789; 87070; 87205; 87899; 88108; 88313; 89050; 89051; 93970; 95910; 97110; 97112; 97116; 97162; 97166; 97530; 97535; 97542; 97802; J7040; A4216; J2930

== ENCOUNTER 2018-07-28 13:36 | Inpatient (IN) | payer OTHER, SELFPAY ==
[2018-06-20 22:06] VITALS: BMI 44.7
[2018-07-28 14:02] VITALS: BP 155/83; PULSE 77; RESP 17; TEMP 36.7; O2SAT 97; BMI 47.2
[2018-07-28 17:57] LABS: Bedside Glucose 208 mg/dL (70-110)
[2018-07-28 18:12] VITALS: PULSE 78
[2018-07-28] MEDS: hydrALAZINE 50 MG Tablet 75 MG PO ×2 (18:12→22:21)
[2018-07-28] MEDS: Insulin Lispro 100 UNIT/ML INSULN.PEN SC (18:13)
--- NOTE | 2018-07-28 18:26 | NURSING ---
Admitted to rehab and aware of being a fall risk and must ask for staff assist.
--- NOTE | 2018-07-28 19:17 | CON.PCM_ITS ---
Problem List (1) CIDP (chronic inflammatory demyelinating polyneuropathy) Status: Chronic (2) DM2 (diabetes mellitus, type 2) Status: Chronic Reason for Consult Date of Consultation: 07/28/18 Reason for Consultation: Consult requested by Dr. Shaw for medical management. History of Present Illness: The patient is a 58 year old F who was sent back to [facility] for increasing weakness of her left lower extremity. Patient has chronic inflammatory demyelinating polyneuropathy. The patient had a flareup. Patient was sent to [facility] where she had 5 rounds of plasmapheresis. Subsequently, patient has noted improvement of her left lower extremity weakness. Patient states that she did not get up much during that admission and feels overall weaker. Patient states that she also had some swelling in her lower extremities and got to the point where she had a blister on the dorsum of her left foot that did open up. Patient otherwise is feeling fine at this time. [] Past Medical History Past Medical History (Chronic Problems): Chronic Problems 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) Hyperlipidemia (Chronic) Chronic kidney disease (Chronic) HTN (hypertension) (Chronic) Obesity (Chronic) DM2 (diabetes mellitus, type 2) (Chronic) Allergies codeine Allergy (Verified 06/14/18 17:11) Other CONFUSION latex Allergy (Verified 06/14/18 17:11) Hives Sulfa (Sulfonamide Antibiotics) Allergy (Verified 06/14/18 17:11) Rash Home Medications: Ambulatory Orders Medication Instructions Recorded Montelukast [Singulair] 10 mg PO QHS 10/29/13 Gabapentin [Neurontin] 300 mg PO QHS 06/14/18 Multivit-Min/Iron/Folic/Lutein 1 tab PO DAILY 06/14/18 [Centrum Silver Women Tablet] Sertraline HCl 100 mg PO DAILY 06/14/18 Calcium Carbonate 500 mg PO BID 06/20/18 Insulin Glargine [Lantus SoloStar 37 units SC BREAKFAST 06/20/18 Pen] Pantoprazole Sodium [Protonix] 20 mg PO DAILY 06/20/18 hydrALAZINE [Apresoline] 75 mg PO 4X/DAY 06/20/18 predniSONE tablet 50 mg PO DAILY@0800 06/20/18 Bisacodyl [Dulcolax] 10 mg RECTAL .PRN X 1 PRN suppos. 07/16/18 Ondansetron [Zofran Odt] 4 mg PO Q8H PRN PRN tablet 07/16/18 Amlodipine [Norvasc] 5 mg PO DAILY 07/28/18 Atorvastatin Calcium [Lipitor] 20 mg PO QHS 07/28/18 Carvedilol [Coreg (Beta Shannon)] 25 mg PO BID 07/28/18 Collagenase [Santyl] 1 applic TOPICAL DAILY 07/28/18 Furosemide [Lasix] 20 mg PO DAILY 07/28/18 Insulin Lispro [Humalog KwikPen] 4 unit SC DAILY@0700 07/28/18 Insulin Lispro [Humalog KwikPen] 5 unit SC BID@1200,1700 07/28/18 busPIRone [Buspar] 5 mg PO TID 07/28/18 Surgical History: cholecystectomy, - - Tubal ligation Smoking Status: Never smoker Tobacco Use: Non-smoker Alcohol: None Drugs: None - *Family History Maternal History Items: Cancer, Heart Disease Paternal History Items: Diabetes, Heart Disease, Hypertension Sibling History Items: Diabetes Review of Systems Constitutional: Denies: Chills, Fever, Weight Change Eyes: Denies: Blurred vision, Double vision HEENT: Denies: Head Aches, Sinus Congestion, Sinus Drainage Cardiovascular: Reports: Edema. Denies: Chest Pain, Palpitations Respiratory: Denies: Cough, Shortness of breath at rest, Sputum production Gastrointestinal: Reports: Diarrhea - She was having diarrhea at the stool softeners., - - Patient had a bowel movement today.. Denies: Abdominal Pain, Nausea, Vomiting Genitourinary: Denies: Dysuria Musculoskeletal: Denies: Joint Pain, Joint Tenderness Skin: Reports: Wounds - On the dorsum of her left foot from blister that opened up. Neurological: Reports: Balance problems, Numbness Psychiatric: Denies: Anxiety, Depression, Homicidal Ideations, Suicidal Ideations Hematologic/ Lymphatic: Denies: Easy Bruising, Easy Bleeding, Hx of blood clot Comment: A 10 point review of systems were negative except as mentioned in the history of present illness and the other review of systems. - Physical Exam General: Alert, Cooperative, No apparent distress HEENT: Atraumatic, Normocephalic Oral: Moist Mucosa, No Gingival or Mucosal Lesions/ Ulcerations Neck: No Nodes, Thyroid Normal Size and Texture Lungs: Clear to auscultation, Normal air movement, No rhonchi, No wheeze Cardiovascular: Regular rate, Regular Rhythm, Normal S1, Normal S2, No murmurs Abdomen: Bowel Sounds Present, Soft, Non Tender, Non-Distended, No Hepato- splenomegaly, Obese Extremities: No Calf Tenderness, Edema Skin: No rashes, - - Using upper extremities. Clean based wound on the dorsum of her left foot. Psych/Mental Status: Normal Affect, Appropriate Vital Signs Temp Pulse Resp BP Pulse Ox 36.7 C 78 17 155/83 H 97 07/28/18 14:02 07/28/18 18:12 07/28/18 14:02 07/28/18 14:02 07/28/18 14:02 Oxygen Delivery Method Room Air Weight: 113.398 kg Body Mass Index (BMI) 47.2 Intake and Output for Last 24 Hours 07/26/18 07/27/18 07/28/18 23:59 23:59 23:59 Intake Total 480 / 480 Balance 480 / 480 POC Glucose 07/28/18 17:27 POC Glucose 208 H Assessment/Plan All Active Problems Debility (Acute) 1. chronic inflammatory demyelinating polyneuropathy status post 5 rounds of plasmapheresis at [facility] on prednisone neurology follow up strength subjectively improving. 2. CKD 3 stable avoid nephrotoxic agents Monitor 3. DM2 continue lantus 37 continue prandial insulin at 4 in AM and 5 at lunch and dinner for now. 4. HTN has been high for the most part continue norvasc 5, Carvedilol 25, hydralazine 50 TID, losartan 50 for now nephrology on consult to assist w BP control 5. Edema probably multifactorial due to prednisone, CCB, limited mobility. weight up 1 kg from last admission, which was up 10 kg from May continue Lasix 20mg for now. 6.DVT proph: LMWH Code Visit Inpatient E&M: 37189 Init Hosp L2
[2018-07-28 21:11] VITALS: BP 145/62; PULSE 60; RESP 18; TEMP 36.6; O2SAT 96
[2018-07-28 21:52] LABS: Bedside Glucose 269 mg/dL (70-110)
[2018-07-28 22:21] VITALS: PULSE 60
[2018-07-28] MEDS: Gabapentin 300 MG Capsule PO (22:21)
[2018-07-28] MEDS: Montelukast 10 MG Tablet PO (22:21)
[2018-07-28] MEDS: busPIRone 5 MG Tablet PO (22:21)
[2018-07-28] MEDS: Carvedilol 25 MG Tablet PO (22:21)
[2018-07-28] MEDS: Atorvastatin Calcium 20 MG Tablet PO (22:21)
[2018-07-28] MEDS: Calcium (Elemental) 500 MG Tablet PO (22:23)
[2018-07-29] VITALS (7 sets, daily range): BP systolic 137–157; BP diastolic 68–87; PULSE 62–68; RESP 17–18; TEMP 36.8–36.9; O2SAT 96–100
[2018-07-29 06:14] LABS: Hematocrit 22.3 % (37-47); Hemoglobin 7.2 g/dl (12.0-15.0); Mean Corp Hgb Conc 32.3 g/gl (32-36); Mean Corpuscular Hgb 26.8 pg (27.0-32.0); Mean Corpuscular Volume 82.9 fL (81-99); Mean Platelet Vol. 10.3 fl (6.2-12.0); Platelet Count 132 K/mm3 (150-450); RBC Distribution Width CV 14.5 % (11.6-14.6); Red Blood Count 2.69 M/mm3 (4.2-5.4); White Blood Count 7.5 K/mm3 (4.4-11.0)
[2018-07-29] MEDS: busPIRone 5 MG Tablet PO ×3 (06:22→21:57)
[2018-07-29 06:23] LABS: Scan Indicated on CBC? Y/N NO
[2018-07-29 06:41] LABS: Anion Gap 8 (5-15); BUN 81 mg/dL (7-18); BUN/Creat Ratio 35.8 RATIO (10-20); Chloride 107 mmol/L (98-107); Creatinine, Serum 2.26 mg/dL (0.55-1.02); EST Glomerular Filtration Rate 24 mL/min (>60); Est Glom Filt Rate - Afr Amer 29 mL/min (>60); Estimated Creatinine Clearance 20.97 ml/min; Glucose 189 mg/dL (74-106); Potassium 3.6 mmol/L (3.5-5.1); Sodium Level 141 mmol/L (136-145)
[2018-07-29 06:47] LABS: Bedside Glucose 162 mg/dL (70-110)
[2018-07-29] MEDS: predniSONE 20 MG Tablet 50 MG PO (07:54)
[2018-07-29] MEDS: Calcium (Elemental) 500 MG Tablet PO ×2 (07:54→22:00)
[2018-07-29] MEDS: Pantoprazole Sodium 20 MG Tablet PO (07:54)
[2018-07-29] MEDS: amLODIPine 5 MG Tablet PO (07:54)
[2018-07-29] MEDS: Insulin Lispro 100 UNIT/ML INSULN.PEN SC ×3 (07:55→17:29)
[2018-07-29] MEDS: Sertraline 100 MG Tablet PO (07:57)
[2018-07-29] MEDS: Multivitamins,Ther W-Minerals Tablet 1 TABLET PO (07:58)
[2018-07-29] MEDS: Furosemide 20 MG Tablet PO (09:26)
[2018-07-29] MEDS: Carvedilol 25 MG Tablet PO ×2 (09:26→21:58)
[2018-07-29] MEDS: hydrALAZINE 50 MG Tablet 75 MG PO ×4 (09:26→21:57)
[2018-07-29] MEDS: Collagenase 30gm Tube 1 APPLIC TOPICAL (09:31)
[2018-07-29] MEDS: Enoxaparin 30 MG/0.3 ML Syringe SC (09:58)
--- NOTE | 2018-07-29 12:00 | NURSING ---
Dr. Lebron aware of labs and patient is asymptomatic for anemia. Recheck HH tomorrow and start iron po. Patient aware.
[2018-07-29 12:07] LABS: Bedside Glucose 184 mg/dL (70-110)
[2018-07-29] MEDS: Senna/Docusate Sodium 1 Tablet 2 TABLET PO (12:36)
[2018-07-29 17:22] LABS: Bedside Glucose 219 mg/dL (70-110)
[2018-07-29] MEDS: Ferrous Sulfate 325 MG Tablet PO (17:30)
[2018-07-29 21:22] LABS: Bedside Glucose 259 mg/dL (70-110)
[2018-07-29] MEDS: Gabapentin 300 MG Capsule PO (21:56)
[2018-07-29] MEDS: Atorvastatin Calcium 20 MG Tablet PO (21:57)
[2018-07-29] MEDS: Neomycin/Bacitracin/Polymyxin Ointment 1 APPLIC TOPICAL (21:58)
[2018-07-29] MEDS: Montelukast 10 MG Tablet PO (22:07)
[2018-07-30] VITALS (7 sets, daily range): BP systolic 128–159; BP diastolic 70–74; PULSE 60–65; RESP 16; TEMP 36.6–36.8; O2SAT 95–98
[2018-07-30] MEDS: busPIRone 5 MG Tablet PO ×3 (05:59→22:18)
[2018-07-30 06:40] LABS: Hematocrit 24.8 % (37-47); Hemoglobin 7.9 g/dl (12.0-15.0)
[2018-07-30 07:11] LABS: Bedside Glucose 178 mg/dL (70-110)
[2018-07-30] MEDS: Insulin Lispro 100 UNIT/ML INSULN.PEN SC ×3 (09:27→17:45)
[2018-07-30] MEDS: Ferrous Sulfate 325 MG Tablet PO ×3 (09:27→17:44)
[2018-07-30] MEDS: predniSONE 20 MG Tablet 50 MG PO (09:28)
[2018-07-30] MEDS: Multivitamins,Ther W-Minerals Tablet 1 TABLET PO (09:28)
[2018-07-30] MEDS: hydrALAZINE 50 MG Tablet 75 MG PO ×4 (09:29→22:18)
[2018-07-30] MEDS: Furosemide 20 MG Tablet PO (09:30)
[2018-07-30] MEDS: Enoxaparin 30 MG/0.3 ML Syringe SC (09:30)
[2018-07-30] MEDS: Carvedilol 25 MG Tablet PO ×2 (09:30→22:18)
[2018-07-30] MEDS: Calcium (Elemental) 500 MG Tablet PO ×2 (09:31→22:18)
[2018-07-30] MEDS: amLODIPine 5 MG Tablet PO (09:31)
[2018-07-30] MEDS: Neomycin/Bacitracin/Polymyxin Ointment 1 APPLIC TOPICAL (09:31)
[2018-07-30] MEDS: Senna/Docusate Sodium 1 Tablet 2 TABLET PO (09:32)
[2018-07-30] MEDS: Collagenase 30gm Tube 1 APPLIC TOPICAL (09:32)
[2018-07-30] MEDS: Pantoprazole Sodium 20 MG Tablet PO (09:32)
[2018-07-30] MEDS: Sertraline 100 MG Tablet PO (09:33)
--- NOTE | 2018-07-30 10:57 | PCM.HP.STD ---
History of Present Illness Date of Admission: 07/28/18 H&P completed 07/28/16 The patient is a 58 year old female with a history of leg weakness which was eventually diagnosed with acute to subacute neuropathy either due to CIDP or vasculitis. She has had a complicated stay, initially was in [facility], was sent to the rehab unit and then did not have any improvement with IVIG. She was then sent to the [facility] for plasmapheresis and now returns to the rehab unit for rehabilitation in order to return home to her prior level of functional independence. She says she has some tightness in her legs but no pain. No other complaints. No GI or complaints. Was tolerating therapies before but she believes that she has had some increasing debility due to her intercurrent hospital stay. She lives at home with her and son in a ranch style house with 3 steps. Past Medical History Past Medical History (Chronic Problems): Chronic Problems 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) Hyperlipidemia (Chronic) Chronic kidney disease (Chronic) HTN (hypertension) (Chronic) Obesity (Chronic) DM2 (diabetes mellitus, type 2) (Chronic) Allergies codeine Allergy (Verified 06/14/18 17:11) Other CONFUSION latex Allergy (Verified 06/14/18 17:11) Hives Sulfa (Sulfonamide Antibiotics) Allergy (Verified 06/14/18 17:11) Rash Home Medications: Ambulatory Orders Medication Instructions Recorded Montelukast [Singulair] 10 mg PO QHS 10/29/13 Gabapentin [Neurontin] 300 mg PO QHS 06/14/18 Multivit-Min/Iron/Folic/Lutein 1 tab PO DAILY 06/14/18 [Centrum Silver Women Tablet] Sertraline HCl 100 mg PO DAILY 06/14/18 Calcium Carbonate 500 mg PO BID 06/20/18 Insulin Glargine [Lantus SoloStar 37 units SC BREAKFAST 06/20/18 Pen] Pantoprazole Sodium [Protonix] 20 mg PO DAILY 06/20/18 hydrALAZINE [Apresoline] 75 mg PO 4X/DAY 06/20/18 predniSONE tablet 50 mg PO DAILY@0800 06/20/18 Bisacodyl [Dulcolax] 10 mg RECTAL .PRN X 1 PRN suppos. 07/16/18 Ondansetron [Zofran Odt] 4 mg PO Q8H PRN PRN tablet 07/16/18 Amlodipine [Norvasc] 5 mg PO DAILY 07/28/18 Atorvastatin Calcium [Lipitor] 20 mg PO QHS 07/28/18 Carvedilol [Coreg (Beta Shannon)] 25 mg PO BID 07/28/18 Collagenase [Santyl] 1 applic TOPICAL DAILY 07/28/18 Furosemide [Lasix] 20 mg PO DAILY 07/28/18 Insulin Lispro [Humalog KwikPen] 4 unit SC DAILY@0700 07/28/18 Insulin Lispro [Humalog KwikPen] 5 unit SC BID@1200,1700 07/28/18 busPIRone [Buspar] 5 mg PO TID 07/28/18 Surgical History: cholecystectomy, - - Tubal ligation Smoking Status: Never smoker Tobacco Use: Non-smoker Alcohol: None Drugs: None - *Family History Maternal History Items: Cancer, Heart Disease Paternal History Items: Diabetes, Heart Disease, Hypertension Sibling History Items: Diabetes Review of Systems Constitutional: Denies: Chills, Fever, Weight Change HEENT: Denies: Head Aches, Sinus Congestion, Sinus Drainage Cardiovascular: Denies: Chest Pain, Palpitations Respiratory: Denies: Cough, Shortness of breath at rest, Sputum production Gastrointestinal: Denies: Abdominal Pain, Nausea, Vomiting Genitourinary: Denies: Dysuria Musculoskeletal: Denies: Joint Pain, Joint Tenderness Skin: Denies: Rash, Wounds Neurological: Denies: Numbness, Tingling, Focal weakness Psychiatric: Denies: Anxiety, Depression, Homicidal Ideations, Suicidal Ideations Hematologic/ Lymphatic: Denies: Easy Bruising, Easy Bleeding VTE Information - Inpt Only VTE Present on Admission: Yes VTE Pharm Prophylaxis ordered?: Yes - Physical Exam General: Alert, Oriented x3, Cooperative, No apparent distress HEENT: Atraumatic, PERRLA, EOMI Lungs: Clear to auscultation Cardiovascular: Regular rate Abdomen: Bowel Sounds Present, Soft, Non Tender Extremities: No Calf Tenderness Neurological: Cranial nerves II-XII grossly intact, - - Arms are normal, leg strength is decreased 2/5 bilaterally. Psych/Mental Status: Normal Affect, Alert and oriented to time, place, person, mood and affect Vital Signs Temp Pulse Resp BP Pulse Ox 36.6 C 62 16 159/74 H 95 07/30/18 07:52 07/30/18 09:29 07/30/18 07:52 07/30/18 07:52 07/30/18 07:52 Oxygen Delivery Method Room Air Weight: 113.4 kg Body Mass Index (BMI) 47.2 Intake and Output for Last 24 Hours 07/28/18 07/29/18 07/30/18 23:59 23:59 23:59 Intake Total 480 / 480 Output Total 1100 / 1100 Balance 480 / 480 -1100 / -1100 Laboratory Tests Past 24 Hrs 07/30/18 07/30/18 06:30 06:30 Hgb 7.9 L Hct 24.8 L Blood Type A POSITIVE Antibody Screen NEGATIVE POC Glucose 07/30/18 07/29/18 07/29/18 07:05 21:05 17:15 POC Glucose 178 H 259 H 219 H 07/29/18 11:59 POC Glucose 184 H Current Medications Generic Name Dose Route Start Last Admin Trade Name Freq PRN Reason Stop Dose Admin Acetaminophen 650 mg 07/28/18 19:17 Tylenol PO Q8H PRN PRN PAIN Amlodipine Besylate 5 mg 07/29/18 10:00 07/30/18 09:31 Norvasc PO 5 mg DAILY SHAHANA Administration Atorvastatin Calcium 20 mg 07/28/18 22:00 07/29/18 21:57 Lipitor PO 20 mg QHS SHAHANA Administration Bisacodyl 10 mg 07/28/18 16:29 Dulcolax RECTAL .PRN X 1 PRN Constipation Bisacodyl 10 mg 07/28/18 18:55 Dulcolax RECTAL .PRN X 1 PRN Constipation Buspirone HCl 5 mg 07/28/18 22:00 07/30/18 05:59 Buspar PO 5 mg TID SHAHANA Administration Calcium Carbonate 500 mg 07/28/18 22:00 07/30/18 09:31 Os-Chinedu 500 PO 500 mg BID SHAHANA Administration Carvedilol 25 mg 07/28/18 22:00 07/30/18 09:30 Coreg PO 25 mg BID SHAHANA Administration Collagenase 1 applic 07/29/18 10:00 07/30/18 09:32 Santyl TOPICAL 1 applicatio DAILY SHAHANA Administration Protocol Enoxaparin Sodium 30 mg 07/29/18 10:00 07/30/18 09:30 Lovenox SC 30 mg DAILY SHAHANA Administration Ferrous Sulfate 325 mg 07/29/18 17:00 07/30/18 09:27 Ferrous Sulfate PO 325 mg TIDCM SHAHANA Administration Furosemide 20 mg 07/29/18 10:00 07/30/18 09:30 Lasix PO 20 mg DAILY SHAHANA Administration Gabapentin 300 mg 07/28/18 22:00 07/29/18 21:56 Neurontin PO 300 mg QHS [facility] Administration Hydralazine HCl 75 mg 07/28/18 18:00 07/30/18 09:29 Apresoline PO 75 mg 4X/DAY SHAHANA Administration Hydrocortisone Acetate 25 mg 07/29/18 14:00 Anusol Hc RECTAL BID PRN PRN Hemorrhoids Insulin Glargine 37 units 07/29/18 08:00 07/30/18 09:28 Lantus ([facility]) SC 37 u BREAKFAST [facility] Administration Insulin Human Lispro 5 unit 07/28/18 17:00 07/29/18 17:29 Humalog Kwikpen ([facility]) SC 5 u BID@1200,1700 [facility] Administration Insulin Human Lispro 4 unit 07/29/18 08:00 07/30/18 09:27 Humalog Kwikpen ([facility]) SC 4 u DAILY@0800 [facility] Administration Magnesium Hydroxide 30 ml 07/28/18 18:55 Milk Of Magnesia PO .PRN X 1 PRN Constipation Montelukast Sodium 10 mg 07/28/18 22:00 07/29/18 22:07 Singulair PO 10 mg QHS [facility] Administration Multivitamins/Minerals 1 tablet 07/29/18 08:00 07/30/18 09:28 Multivitamin With Minerals PO 1 tablet DAILY@0800 [facility] Administration Neomycin/Polymyxin/Bacitracin 1 applic 07/28/18 22:00 07/30/18 09:31 Neosporin TOPICAL 1 applicatio BID [facility] Administration Protocol Ondansetron HCl 4 mg 07/28/18 16:29 Zofran Odt PO Q8H PRN PRN NAUSEA Pantoprazole Sodium 20 mg 07/29/18 10:00 07/30/18 09:32 Protonix PO 20 mg DAILY SHAHANA Administration Prednisone 50 mg 07/29/18 08:00 07/30/18 09:28 PO 50 mg DAILY@0800 [facility] Administration Senna/Docusate Sodium 2 tablet 07/28/18 22:00 07/30/18 09:32 Senokot-S, Leti-Colace PO 2 tablet BID SHAHANA Administration Sertraline HCl 100 mg 07/29/18 10:00 07/30/18 09:33 Zoloft PO 100 mg DAILY SHAHANA Administration Assessment/Plan All Active Problems Debility (Acute) Debility status post prolonged hospitalization for acute/subacute neuropathy of unknown cause. Workup was previously negative for GBS including lumbar puncture. She has received a course of IVIG as well as now recently plasmapheresis and is on steroids. Goal of rehab is tenriism of prior level of functional independence. Plan: Physical therapy for gait and balance Occupational Therapy for ADLs PRN analgesics Bowel protocol DVT prophylaxis Currently on steroids, will need to consider further immune suppression
--- NOTE | 2018-07-30 11:00 | HP.PCM_ITS ---
History of Present Illness Date of Admission: 07/28/18 H&P completed 07/28/16 The patient is a 58 year old female with a history of leg weakness which was eventually diagnosed with acute to subacute neuropathy either due to CIDP or vasculitis. She has had a complicated stay, initially was in [facility], was sent to the rehab unit and then did not have any improvement with IVIG. She was then sent to the [facility] for plasmapheresis and now returns to the rehab unit for rehabilitation in order to return home to her [place] or level of functional independence. She says she has some tightness in her legs but no pain. No other complaints. No GI or complaints. Was tolerating therapies before but she believes that she has had some increasing debility due to her intercurrent hospital stay. She lives at home with her and son in a ranch style house with 3 steps. Past Medical History Past Medical History (Chronic Problems): Chronic Problems 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) Hyperlipidemia (Chronic) Chronic kidney disease (Chronic) HTN (hypertension) (Chronic) Obesity (Chronic) DM2 (diabetes mellitus, type 2) (Chronic) Allergies codeine Allergy (Verified 06/14/18 17:11) Other CONFUSION latex Allergy (Verified 06/14/18 17:11) Hives Sulfa (Sulfonamide Antibiotics) Allergy (Verified 06/14/18 17:11) Rash Home Medications: Ambulatory Orders Medication Instructions Recorded Montelukast [Singulair] 10 mg PO QHS 10/29/13 Gabapentin [Neurontin] 300 mg PO QHS 06/14/18 Multivit-Min/Iron/Folic/Lutein 1 tab PO DAILY 06/14/18 [Centrum Silver Women Tablet] Sertraline HCl 100 mg PO DAILY 06/14/18 Calcium Carbonate 500 mg PO BID 06/20/18 Insulin Glargine [Lantus SoloStar 37 units SC BREAKFAST 06/20/18 Pen] Pantoprazole Sodium [Protonix] 20 mg PO DAILY 06/20/18 hydrALAZINE [Apresoline] 75 mg PO 4X/DAY 06/20/18 predniSONE tablet 50 mg PO DAILY@0800 06/20/18 Bisacodyl [Dulcolax] 10 mg RECTAL .PRN X 1 PRN suppos. 07/16/18 Ondansetron [Zofran Odt] 4 mg PO Q8H PRN PRN tablet 07/16/18 Amlodipine [Norvasc] 5 mg PO DAILY 07/28/18 Atorvastatin Calcium [Lipitor] 20 mg PO QHS 07/28/18 Carvedilol [Coreg (Beta Shannon)] 25 mg PO BID 07/28/18 Collagenase [Santyl] 1 applic TOPICAL DAILY 07/28/18 Furosemide [Lasix] 20 mg PO DAILY 07/28/18 Insulin Lispro [Humalog KwikPen] 4 unit SC DAILY@0700 07/28/18 Insulin Lispro [Humalog KwikPen] 5 unit SC BID@1200,1700 07/28/18 busPIRone [Buspar] 5 mg PO TID 07/28/18 Surgical History: cholecystectomy, - - Tubal ligation Smoking Status: Never smoker Tobacco Use: Non-smoker Alcohol: None Drugs: None - *Family History Maternal History Items: Cancer, Heart Disease Paternal History Items: Diabetes, Heart Disease, Hypertension Sibling History Items: Diabetes Review of Systems Constitutional: Denies: Chills, Fever, Weight Change HEENT: Denies: Head Aches, Sinus Congestion, Sinus Drainage Cardiovascular: Denies: Chest Pain, Palpitations Respiratory: Denies: Cough, Shortness of breath at rest, Sputum production Gastrointestinal: Denies: Abdominal Pain, Nausea, Vomiting Genitourinary: Denies: Dysuria Musculoskeletal: Denies: Joint Pain, Joint Tenderness Skin: Denies: Rash, Wounds Neurological: Denies: Numbness, Tingling, Focal weakness Psychiatric: Denies: Anxiety, Depression, Homicidal Ideations, Suicidal Ideations Hematologic/ Lymphatic: Denies: Easy Bruising, Easy Bleeding VTE Information - Inpt Only VTE Present on Admission: Yes VTE Pharm Prophylaxis ordered?: Yes - Physical Exam General: Alert, Oriented x3, Cooperative, No apparent distress HEENT: Atraumatic, PERRLA, EOMI Lungs: Clear to auscultation Cardiovascular: Regular rate Abdomen: Bowel Sounds Present, Soft, Non Tender Extremities: No Calf Tenderness Neurological: Cranial nerves II-XII grossly intact, - - Arms are normal, leg strength is decreased 2/5 bilaterally. Psych/Mental Status: Normal Affect, Alert and oriented to time, place, person, mood and affect Vital Signs Temp Pulse Resp BP Pulse Ox 36.6 C 62 16 159/74 H 95 07/30/18 07:52 07/30/18 09:29 07/30/18 07:52 07/30/18 07:52 07/30/18 07:52 Oxygen Delivery Method Room Air Weight: 113.4 kg Body Mass Index (BMI) 47.2 Intake and Output for Last 24 Hours 07/28/18 07/29/18 07/30/18 23:59 23:59 23:59 Intake Total 480 / 480 Output Total 1100 / 1100 Balance 480 / 480 -1100 / -1100 Laboratory Tests Past 24 Hrs 07/30/18 07/30/18 06:30 06:30 Hgb 7.9 L Hct 24.8 L Blood Type A POSITIVE Antibody Screen NEGATIVE POC Glucose 07/30/18 07/29/18 07/29/18 07:05 21:05 17:15 POC Glucose 178 H 259 H 219 H 07/29/18 11:59 POC Glucose 184 H Current Medications Generic Name Dose Route Start Last Admin Trade Name Freq PRN Reason Stop Dose Admin Acetaminophen 650 mg 07/28/18 19:17 Tylenol PO Q8H PRN PRN PAIN Amlodipine Besylate 5 mg 07/29/18 10:00 07/30/18 09:31 Norvasc PO 5 mg DAILY SHAHANA Administration Atorvastatin Calcium 20 mg 07/28/18 22:00 07/29/18 21:57 Lipitor PO 20 mg QHS SHAHANA Administration Bisacodyl 10 mg 07/28/18 16:29 Dulcolax RECTAL .PRN X 1 PRN Constipation Bisacodyl 10 mg 07/28/18 18:55 Dulcolax RECTAL .PRN X 1 PRN Constipation Buspirone HCl 5 mg 07/28/18 22:00 07/30/18 05:59 Buspar PO 5 mg TID SHAHANA Administration Calcium Carbonate 500 mg 07/28/18 22:00 07/30/18 09:31 Os-Chinedu 500 PO 500 mg BID SHAHANA Administration Carvedilol 25 mg 07/28/18 22:00 07/30/18 09:30 Coreg PO 25 mg BID SHAHANA Administration Collagenase 1 applic 07/29/18 10:00 07/30/18 09:32 Santyl TOPICAL 1 applicatio DAILY SHAHANA Administration Protocol Enoxaparin Sodium 30 mg 07/29/18 10:00 07/30/18 09:30 Lovenox SC 30 mg DAILY SHAHANA Administration Ferrous Sulfate 325 mg 07/29/18 17:00 07/30/18 09:27 Ferrous Sulfate PO 325 mg TIDCM SHAHANA Administration Furosemide 20 mg 07/29/18 10:00 07/30/18 09:30 Lasix PO 20 mg DAILY SHAHANA Administration Gabapentin 300 mg 07/28/18 22:00 07/29/18 21:56 Neurontin PO 300 mg QHS [facility] Administration Hydralazine HCl 75 mg 07/28/18 18:00 07/30/18 09:29 Apresoline PO 75 mg 4X/DAY [facility] Administration Hydrocortisone Acetate 25 mg 07/29/18 14:00 Anusol Hc RECTAL BID PRN PRN Hemorrhoids Insulin Glargine 37 units 07/29/18 08:00 07/30/18 09:28 Lantus ([facility]) SC 37 u BREAKFAST [facility] Administration Insulin Human Lispro 5 unit 07/28/18 17:00 07/29/18 17:29 Humalog Kwikpen ([facility]) SC 5 u BID@1200,1700 [facility] Administration Insulin Human Lispro 4 unit 07/29/18 08:00 07/30/18 09:27 Humalog Kwikpen ([facility]) SC 4 u DAILY@0800 [facility] Administration Magnesium Hydroxide 30 ml 07/28/18 18:55 Milk Of Magnesia PO .PRN X 1 PRN Constipation Montelukast Sodium 10 mg 07/28/18 22:00 07/29/18 22:07 Singulair PO 10 mg QHS [facility] Administration Multivitamins/Minerals 1 tablet 07/29/18 08:00 07/30/18 09:28 Multivitamin With Minerals PO 1 tablet DAILY@0800 [facility] Administration Neomycin/Polymyxin/Bacitracin 1 applic 07/28/18 22:00 07/30/18 09:31 Neosporin TOPICAL 1 applicatio BID [facility] Administration Protocol Ondansetron HCl 4 mg 07/28/18 16:29 Zofran Odt PO Q8H PRN PRN NAUSEA Pantoprazole Sodium 20 mg 07/29/18 10:00 07/30/18 09:32 Protonix PO 20 mg DAILY [facility] Administration Prednisone 50 mg 07/29/18 08:00 07/30/18 09:28 PO 50 mg DAILY@0800 [facility] Administration Senna/Docusate Sodium 2 tablet 07/28/18 22:00 07/30/18 09:32 Senokot-S, Leti-Colace PO 2 tablet BID SHAHANA Administration Sertraline HCl 100 mg 07/29/18 10:00 07/30/18 09:33 Zoloft PO 100 mg DAILY SHAHANA Administration Assessment/Plan All Active Problems Debility (Acute) Debility status post prolonged hospitalization for acute/subacute neuropathy of unknown cause. Workup was previously negative for GBS including lumbar puncture. She has received a course of IVIG as well as now recently plasmapheresis and is on steroids. Goal of rehab is adventist of prior level of functional independence. Plan: Physical therapy for gait and balance Occupational Therapy for ADLs PRN analgesics Bowel protocol DVT prophylaxis Currently on steroids, will need to consider further immune suppression
--- NOTE | 2018-07-30 11:00 | PCM.RU.PYE ---
Admission Information Primary Diagnosis:: Acute/subacute neuropathy. Michael completed 07/28/18 Status Changes from Prescreening?: No changes Identified Potential Problem List:: DVT, Bleeding, Infection, UTI, Aspiration, Falls, Skin Integrity, Depression Risk of Complications DVT: LMWH, ODETTE Hose, Sequential Compression Device Bleeding: Monitor Lab Values, Nursing to Teach Precautions for anti-coagulation therapy., Wound, if applicable, to be assessed every shift., Stroke patients assessed for lethargy or change in status. Infection: Clinical Staff to Monitor for S/S of infection:, S/S of infection include fever, redness, warmth, etc. Urinary Tract Infection: Monitor for frequency, burning, discomfort, or incontinence., Nursing will obtain urine sample for urinalysis and C&S when ordered. Aspiration: Clinical staff will monitor for coughing, drooling, congestion., Speech will evaluate swallowing and dsyphasia., Nursing will monitor patient swallowing during meals. Falls: Patient will be evaluated for Fall Precautions, Patient will be placed on Fall Precautions as indicated per protocol. Skin Breakdown: Nursing will assess skin daily using assessment tool., Nursing will place on Skin Breakdown Precautions as indicated. Pain: Clinical staff will assess patient's pain level per protocol., Medications will be given, if needed, and the pain level reassessed., Other methods: Massage, distraction, decrease stimulus, etc. used PRN. Plan of Care Patient requires physician specializing in physical medicine and rehab oversight to provide close medical supervision of rehab issues including: Pain Management, Sleep Problems, Bowel and Bladder, Medical and co-morbidity Management, DVT prophylaxis, Rehabilitation Leadership, Coordination of treatment team Patient needs Physical Therapy: For a minimum of 1 hour, At least 5 out of 7 days Patient needs Physical Therapy to improve:: Mobility, Mobility, Mobility, Strengthening, Transfers, Stretching, ROM, Endurance, Stairs, Gait, Balance Patient needs Occupational Therapy: For a minimum of 1 hour, At least 5 out of 7 days Patient needs Occupational Therapy to improve ADL's incl.: Eating, Grooming, Bathing, Dressing, Toileting, Toilet transfers, Community Reintegration, Higher functioning activities, Household tasks, Adaptive Equipment, Splinting, Other activities as determined Patient requires 24/ Rehabilitation Nursing for: Pain Issues, Identifying and preventing risk factors, Monitoring and reporting current medical conditions, Assisting with ambulation, transfer, and all ADL's, Teaching patients about disease process and medications, Family teaching, Providing safe environment, Bowel and Bladder Issues, Skin integrity, Medication Management Patient needs Multifocal Button Generator/ Case Management for: Discharge Planning, Arranging Home Equipment or Services, Family Interventions Patient needs Dietary and Nutrition Services for: Adequate Nutrition, Nutritional Supplements, Nutritional Education Goals Patient will remain: free from falls, or injury at time of discharge. Patient will perform bed mobility at: MOD I level of assist. Patient will complete transfers from bed to chair at: MOD I level of assist. Patient will ambulate: 100 feet, with MOD I assist, with LRD Patient will complete upper body dressing at: MOD I level of assist. Patient will complete lower body dressing at: MOD I level of assist. Patient will complete toileting at: MOD I level of assist. Patient will perform bathing at: MOD I level of assist. Patient will complete grooming at: MOD I level of assist. Patient will complete home management skills at: MOD I level of assist. Patient will achieve: 12 stairs, at MOD I assist Patient will have pain level of: of 3 or less Patient's skin will: remain intact, free from infection. Patient will receive: adequate nutrition. Discharge Planning Pt Prognosis for Sig. Practical Improv. w/in Reasonable Time: Good Anticipated D/C Destination: Home with Outpt Therapy Was Preadmission Assessment Accurate?: Yes
--- NOTE | 2018-07-30 11:01 | PCM.PN.NEU ---
Subjective: No new complaints. Tolerating therapies. No GI or complaints. She asks about the mechanism of her various treatments which were explained including IVIG and plasmapheresis as well as steroids. Sleeping well. Tolerating p.o. well. - Physical Exam General: Alert, Oriented x3, Cooperative, No apparent distress HEENT: Atraumatic, PERRLA, EOMI, Normocephalic Extremities: No Calf Tenderness Neurological: Cranial nerves II-XII grossly intact, - - Weakness of her bilateral lower extremities is stable Psych/Mental Status: Normal Affect, Alert and oriented to time, place, person, mood and affect Vital Signs Temp Pulse Resp BP Pulse Ox 36.6 C 62 16 159/74 H 95 07/30/18 07:52 07/30/18 09:29 07/30/18 07:52 07/30/18 07:52 07/30/18 07:52 Oxygen Delivery Method Room Air Weight: 113.4 kg Body Mass Index (BMI) 47.2 Intake and Output for Last 24 Hours 07/28/18 07/29/18 07/30/18 23:59 23:59 23:59 Intake Total 480 / 480 Output Total 1100 / 1100 Balance 480 / 480 -1100 / -1100 Laboratory Tests Past 24 Hrs 07/30/18 07/30/18 06:30 06:30 Hgb 7.9 L Hct 24.8 L Blood Type A POSITIVE Antibody Screen NEGATIVE POC Glucose 07/30/18 07/29/18 07/29/18 07:05 21:05 17:15 POC Glucose 178 H 259 H 219 H 07/29/18 11:59 POC Glucose 184 H Current Medications Generic Name Dose Route Start Last Admin Trade Name Freq PRN Reason Stop Dose Admin Acetaminophen 650 mg 07/28/18 19:17 Tylenol PO Q8H PRN PRN PAIN Amlodipine Besylate 5 mg 07/29/18 10:00 07/30/18 09:31 Norvasc PO 5 mg DAILY SHAHANA Administration Atorvastatin Calcium 20 mg 07/28/18 22:00 07/29/18 21:57 Lipitor PO 20 mg QHS SHAHANA Administration Bisacodyl 10 mg 07/28/18 16:29 Dulcolax RECTAL .PRN X 1 PRN Constipation Bisacodyl 10 mg 07/28/18 18:55 Dulcolax RECTAL .PRN X 1 PRN Constipation Buspirone HCl 5 mg 07/28/18 22:00 07/30/18 05:59 Buspar PO 5 mg TID [facility] Administration Calcium Carbonate 500 mg 07/28/18 22:00 07/30/18 09:31 Os-Chinedu 500 PO 500 mg BID [facility] Administration Carvedilol 25 mg 07/28/18 22:00 07/30/18 09:30 Coreg PO 25 mg BID [facility] Administration Collagenase 1 applic 07/29/18 10:00 07/30/18 09:32 Santyl TOPICAL 1 applicatio DAILY [facility] Administration Protocol Enoxaparin Sodium 30 mg 07/29/18 10:00 07/30/18 09:30 Lovenox SC 30 mg DAILY [facility] Administration Ferrous Sulfate 325 mg 07/29/18 17:00 07/30/18 09:27 Ferrous Sulfate PO 325 mg TIDCM [facility] Administration Furosemide 20 mg 07/29/18 10:00 07/30/18 09:30 Lasix PO 20 mg DAILY [facility] Administration Gabapentin 300 mg 07/28/18 22:00 07/29/18 21:56 Neurontin PO 300 mg QHS [facility] Administration Hydralazine HCl 75 mg 07/28/18 18:00 07/30/18 09:29 Apresoline PO 75 mg 4X/DAY [facility] Administration Hydrocortisone Acetate 25 mg 07/29/18 14:00 Anusol Hc RECTAL BID PRN PRN Hemorrhoids Insulin Glargine 37 units 07/29/18 08:00 07/30/18 09:28 Lantus ([facility]) SC 37 u BREAKFAST [facility] Administration Insulin Human Lispro 5 unit 07/28/18 17:00 07/29/18 17:29 Humalog Kwikpen ([facility]) SC 5 u BID@1200,1700 [facility] Administration Insulin Human Lispro 4 unit 07/29/18 08:00 07/30/18 09:27 Humalog Kwikpen ([facility]) SC 4 u DAILY@0800 [facility] Administration Magnesium Hydroxide 30 ml 07/28/18 18:55 Milk Of Magnesia PO .PRN X 1 PRN Constipation Montelukast Sodium 10 mg 07/28/18 22:00 07/29/18 22:07 Singulair PO 10 mg QHS [facility] Administration Multivitamins/Minerals 1 tablet 07/29/18 08:00 07/30/18 09:28 Multivitamin With Minerals PO 1 tablet DAILY@0800 SHAHANA Administration Neomycin/Polymyxin/Bacitracin 1 applic 07/28/18 22:00 07/30/18 09:31 Neosporin TOPICAL 1 applicatio BID SHAHANA Administration Protocol Ondansetron HCl 4 mg 07/28/18 16:29 Zofran Odt PO Q8H PRN PRN NAUSEA Pantoprazole Sodium 20 mg 07/29/18 10:00 07/30/18 09:32 Protonix PO 20 mg DAILY SHAHANA Administration Prednisone 50 mg 07/29/18 08:00 07/30/18 09:28 PO 50 mg DAILY@0800 SHAHANA Administration Senna/Docusate Sodium 2 tablet 07/28/18 22:00 07/30/18 09:32 Senokot-S, Leti-Colace PO 2 tablet BID SHAHANA Administration Sertraline HCl 100 mg 07/29/18 10:00 07/30/18 09:33 Zoloft PO 100 mg DAILY SHAHANA Administration Medical Necessity - Tobacco Use Smoking Status: Never smoker Tobacco Use: Non-smoker Assessment/Plan All Active Problems Debility (Acute) Debility status post prolonged hospitalization for acute/subacute neuropathy of unknown cause. Workup was previously negative for GBS including lumbar puncture. She has received a course of IVIG as well as now recently plasmapheresis and is on steroids. Goal of rehab is buddhist of prior level of functional independence. Plan: Physical therapy for gait and balance Occupational Therapy for ADLs PRN analgesics Bowel protocol DVT prophylaxis Currently on steroids, will need to consider further immune suppression
[2018-07-30 12:07] LABS: Bedside Glucose 161 mg/dL (70-110)
[2018-07-30] MEDS: Hydrocortisone 25 MG Suppository RECTAL (13:54)
--- NOTE | 2018-07-30 14:14 | NURSING ---
Teresita, wound nurse up to see patient for wounds. dressings applied. teresita to change dressing orders.
--- NOTE | 2018-07-30 14:40 | NURSING ---
wound photo: left dorsal foot
--- NOTE | 2018-07-30 14:41 | NURSING ---
wound photo: left posterolateral lower leg
--- NOTE | 2018-07-30 16:06 | CASEMGMT ---
Student social science manager assessment documentation reviewed. BERNARD Finney
--- NOTE | 2018-07-30 16:09 | PCM.PN.HOSP ---
Subjective: Patient seen and examined. 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 She had 5 rounds of plasma for the rehab unit for intensive rehab. She has no complaints and feels well. Her nurse noted that she had an ecchymotic patch over her lower abdomen which is likely due to Lovenox injections. Review of systems otherwise negative. She is tolerating physical therapy well. Vitals/I&O's: Vital Signs Temp Pulse Resp BP Pulse Ox 97.9 F 60 16 159/74 H 95 07/30/18 07:52 07/30/18 14:09 07/30/18 07:52 07/30/18 07:52 07/30/18 07:52 Oxygen Delivery Method Room Air Weight: 250 lb 0.067 oz Body Mass Index (BMI) 47.2 Intake and Output for Last 24 Hours 07/28/18 07/29/18 07/30/18 23:59 23:59 23:59 Intake Total 480 / 480 440 / 440 Output Total 1100 / 1100 Balance 480 / 480 -1100 / -1100 440 / 440 General: Alert, Oriented x3, Cooperative, No apparent distress HEENT: Atraumatic, PERRLA, EOMI, Normocephalic Oral: Moist Mucosa Neck: Supple, No JVD, Negative Carotid Bruits Lungs: Clear to auscultation, Normal air movement Cardiovascular: Regular rate, Regular Rhythm, Normal S1, Normal S2, No murmurs Abdomen: Bowel Sounds Present, Soft, Non Tender, Non-Distended, No Hepato-splenomegaly Extremities: No clubbing, No cyanosis, No edema, Capillary Refill Less than 3 Seconds Musculoskeletal: - - both LEs wrapped in ARISTIDES bandage Lymphatic: No Cervical, Supraclavicular, or Inguinal Adenopathy Neurological: Cranial nerves II-XII grossly intact Psych/Mental Status: Normal Affect, Appropriate, Alert and oriented to time, place, person, mood and affect Laboratory Results 07/29/18 17:15: POC Glucose 219 H 07/29/18 21:05: POC Glucose 259 H 07/30/18 06:30: Hgb 7.9 L, Hct 24.8 L 07/30/18 06:30: Blood Type A POSITIVE, Antibody Screen NEGATIVE 07/30/18 07:05: POC Glucose 178 H 07/30/18 11:58: POC Glucose 161 H Current Medications Acetaminophen (Tylenol) 650 mg PO Q8H PRN PRN PRN Reason: PAIN Amlodipine Besylate (Norvasc) 5 mg PO DAILY [facility] Last Admin: 07/30/18 09:31 Dose: 5 mg Atorvastatin Calcium (Lipitor) 20 mg PO QHS [facility] Last Admin: 07/29/18 21:57 Dose: 20 mg Bisacodyl (Dulcolax) 10 mg RECTAL .PRN X 1 PRN PRN Reason: Constipation Bisacodyl (Dulcolax) 10 mg RECTAL .PRN X 1 PRN PRN Reason: Constipation Buspirone HCl (Buspar) 5 mg PO TID [facility] Last Admin: 07/30/18 14:11 Dose: 5 mg Calamine/Phenol (Calmoseptine Ointment) 1 applic TOPICAL BID [facility]; Protocol Calcium Carbonate (Os-Chinedu 500) 500 mg PO BID [facility] Last Admin: 07/30/18 09:31 Dose: 500 mg Carvedilol (Coreg) 25 mg PO BID [facility] Last Admin: 07/30/18 09:30 Dose: 25 mg Enoxaparin Sodium (Lovenox) 30 mg SC DAILY [facility] Last Admin: 07/30/18 09:30 Dose: 30 mg Ferrous Sulfate (Ferrous Sulfate) 325 mg PO TIDCM [facility] Last Admin: 07/30/18 13:04 Dose: 325 mg Furosemide (Lasix) 20 mg PO DAILY [facility] Last Admin: 07/30/18 09:30 Dose: 20 mg Gabapentin (Neurontin) 300 mg PO QHS [facility] Last Admin: 07/29/18 21:56 Dose: 300 mg Hydralazine HCl (Apresoline) 75 mg PO 4X/DAY [facility] Last Admin: 07/30/18 14:09 Dose: 75 mg Hydrocortisone Acetate (Anusol Hc) 25 mg RECTAL BID PRN PRN PRN Reason: Hemorrhoids Last Admin: 07/30/18 13:54 Dose: 25 mg Insulin Glargine (Lantus (Bkc)) 37 units SC BREAKFAST [facility] Last Admin: 07/30/18 09:28 Dose: 37 u Insulin Human Lispro (Humalog Kwikpen (Bk)) 5 unit SC BID@1200,1700 [facility] Last Admin: 07/30/18 13:04 Dose: 5 u Insulin Human Lispro (Humalog Kwikpen (Bkc)) 4 unit SC DAILY@0800 [facility] Last Admin: 07/30/18 09:27 Dose: 4 u Magnesium Hydroxide (Milk Of Magnesia) 30 ml PO .PRN X 1 PRN PRN Reason: Constipation Montelukast Sodium (Singulair) 10 mg PO QHS [facility] Last Admin: 07/29/18 22:07 Dose: 10 mg Multivitamins/Minerals (Multivitamin With Minerals) 1 tablet PO DAILY@0800 [facility] Last Admin: 07/30/18 09:28 Dose: 1 tablet Ondansetron HCl (Zofran Odt) 4 mg PO Q8H PRN PRN PRN Reason: NAUSEA Pantoprazole Sodium (Protonix) 20 mg PO DAILY [facility] Last Admin: 07/30/18 09:32 Dose: 20 mg Prednisone () 50 mg PO DAILY@0800 [facility] Last Admin: 07/30/18 09:28 Dose: 50 mg Senna/Docusate Sodium (Senokot-S, Leti-Colace) 2 tablet PO BID [facility] Last Admin: 07/30/18 09:32 Dose: 2 tablet Sertraline HCl (Zoloft) 100 mg PO DAILY [facility] Last Admin: 07/30/18 09:33 Dose: 100 mg Medical Necessity - Tobacco Use Smoking Status: Never smoker Tobacco Use: Non-smoker Assessment/Plan All Active Problems Debility (Acute) 1. chronic inflammatory demyelinating polyneuropathy s/p 5 rounds of plasmapheresis at [facility] on PO prednisone neurology on board 2. CKD 3: stable. 3. Type 2 diabetes mellitus: on lantus 37Iu whs and ISS. Accuchecks ACHS. ISS 4. HTN: Poorly controlled. Blood pressure has been in the 1 650s and 160s systolic. On amlodipine 5 mg daily, carvedilol 25 mg daily, hydralazine 50 mg 3 times daily and losartan 50 mg daily. Will increase amlodipine to 10 mg daily. 5. Ecchymosis of lower abdomen: Likely due to Lovenox injections. Stable and asymptomatic. We will continue to monitor. 6. Bilateral lower extremity edema:on lasix DVT prophylaxis: lovenox Code Visit Inpatient E&M: 42093 Subs Hosp L2
[2018-07-30 17:26] LABS: Bedside Glucose 181 mg/dL (70-110)
--- NOTE | 2018-07-30 20:32 | NURSING ---
Pt states scraped right arm on lid that covers dinner plate. Bleeding slowly. Pressure held, cleansed with ns, bandaid applied.
[2018-07-30] MEDS: Atorvastatin Calcium 20 MG Tablet PO (22:18)
[2018-07-30] MEDS: Gabapentin 300 MG Capsule PO (22:18)
[2018-07-30] MEDS: Montelukast 10 MG Tablet PO (22:18)
[2018-07-30] MEDS: Menthol/Lanolin/Calamine/Znox 113 GM Tube 1 APPLIC TOPICAL (22:19)
[2018-07-30 22:34] LABS: Bedside Glucose 287 mg/dL (70-110)
[2018-07-31] MEDS: busPIRone 5 MG Tablet PO ×3 (06:40→20:06)
[2018-07-31 07:26] LABS: Bedside Glucose 226 mg/dL (70-110)
[2018-07-31] MEDS: predniSONE 20 MG Tablet 50 MG PO (08:08)
[2018-07-31] MEDS: Multivitamins,Ther W-Minerals Tablet 1 TABLET PO (08:08)
[2018-07-31] MEDS: Pantoprazole Sodium 20 MG Tablet PO (08:08)
[2018-07-31] MEDS: Ferrous Sulfate 325 MG Tablet PO ×3 (08:08→17:22)
[2018-07-31] MEDS: Calcium (Elemental) 500 MG Tablet PO ×2 (08:08→20:06)
[2018-07-31] MEDS: Insulin Lispro 100 UNIT/ML INSULN.PEN SC ×3 (08:10→17:21)
[2018-07-31 08:15] VITALS: PULSE 77; O2SAT 95
[2018-07-31] MEDS: Enoxaparin 30 MG/0.3 ML Syringe SC (08:15)
[2018-07-31] MEDS: hydrALAZINE 50 MG Tablet 75 MG PO ×4 (08:15→20:07)
[2018-07-31] MEDS: Carvedilol 25 MG Tablet PO ×2 (08:16→20:06)
[2018-07-31] MEDS: amLODIPine 10 MG Tablet PO (08:19)
[2018-07-31] MEDS: Sertraline 100 MG Tablet PO (08:19)
[2018-07-31] MEDS: Furosemide 20 MG Tablet PO (08:20)
[2018-07-31 08:24] VITALS: BP 182/78; PULSE 65; RESP 16; TEMP 36.9; O2SAT 95
--- NOTE | 2018-07-31 11:33 | PCM.PN.NEU ---
Subjective: No new complaints. Tolerating therapies. No GI or complaints. She says her weakness is stabilized, not improving but not worsening. - Physical Exam General: Alert, Oriented x3, Cooperative, No apparent distress HEENT: Atraumatic, PERRLA, EOMI Neurological: Cranial nerves II-XII grossly intact, - - Arm strength is intact. In her lower extremities on the right side hip flexors are 2/5 and on the left they are 1/5. Her right dorsiflexor is 0/5 and on the left it is 4/5. Psych/Mental Status: Normal Affect, Alert and oriented to time, place, person, mood and affect Vital Signs Temp Pulse Resp BP Pulse Ox 36.9 C 65 16 182/78 H 95 07/31/18 08:24 07/31/18 08:24 07/31/18 08:24 07/31/18 08:24 07/31/18 08:24 Oxygen Delivery Method Room Air Weight: 113.4 kg Body Mass Index (BMI) 47.2 Intake and Output for Last 24 Hours 07/29/18 07/30/18 07/31/18 23:59 23:59 23:59 Intake Total 440 / 440 180 / 180 Output Total 1100 / 1100 Balance -1100 / -1100 440 / 440 180 / 180 POC Glucose 07/31/18 07/30/18 07/30/18 07:08 22:30 17:14 POC Glucose 226 H 287 H 181 H 07/30/18 11:58 POC Glucose 161 H Medical Necessity - Tobacco Use Smoking Status: Never smoker Tobacco Use: Non-smoker Assessment/Plan All Active Problems Debility (Acute) Debility status post prolonged hospitalization for acute/subacute neuropathy of unknown cause. Workup was previously negative for GBS including lumbar puncture. She has received a course of IVIG as well as now recently plasmapheresis and is on steroids. Goal of rehab is denominational of prior level of functional independence. Plan: Physical therapy for gait and balance Occupational Therapy for ADLs PRN analgesics 07/31: Controlled Bowel protocol DVT prophylaxis Currently on steroids, will need to consider further immune suppression 07/31: Stable
[2018-07-31 11:51] LABS: Bedside Glucose 165 mg/dL (70-110)
[2018-07-31] MEDS: Menthol/Lanolin/Calamine/Znox 113 GM Tube 1 APPLIC TOPICAL ×2 (12:12→20:07)
[2018-07-31 14:22] VITALS: PULSE 78
[2018-07-31 16:41] LABS: Bedside Glucose 288 mg/dL (70-110)
--- NOTE | 2018-07-31 17:07 | CHAPLAIN ---
Type of Pastoral Visit _x__ Initial Visit ___ Follow-up Visit ___ On-call Visit ___ General Patient Visit ___ Spiritual Assessment ___ Family Conference ___ Bereavement ___ Rapid Response ___ Code Blue ___ Other (describe below) Pastoral Care Referral From _x__ Patient ___ Family ___ Nurse ___ Physician ___ Implementation Manager ___ Qa Developer ___ Other (describe below) Sacrament/Intervention _x__ Active listening ___ Anointing ___ Restoration ___ Bereavement ___ Communion ___ Thais exploration ___ ___ Life review _x__ Prayer ___ Reconciliation ___ Sacrament of Sick _x__ Supportive presence ___ Wedding ___ Other (describe below) Pastoral Comments patient was seen in previous admissions; pt requested prayer support and acknowledged appreciation for visits
[2018-07-31 17:22] VITALS: PULSE 79
[2018-07-31 19:45] VITALS: BP 136/72; PULSE 78; PULSE 79; RESP 16; RESP 18; TEMP 36.8; O2SAT 97
[2018-07-31] MEDS: Gabapentin 300 MG Capsule PO (20:06)
[2018-07-31] MEDS: Montelukast 10 MG Tablet PO (20:06)
[2018-07-31] MEDS: Senna/Docusate Sodium 1 Tablet 2 TABLET PO (20:06)
[2018-07-31] MEDS: Atorvastatin Calcium 20 MG Tablet PO (20:06)
[2018-07-31 20:07] VITALS: BP 136/72; PULSE 79
[2018-07-31 20:16] LABS: Bedside Glucose 259 mg/dL (70-110)
--- NOTE | 2018-08-01 02:46 | NURSING ---
Reviewed and agree with TELEPHONE SALES REPRESENTATIVE documentation and FIMs charting.
--- NOTE | 2018-08-01 02:47 | NURSING ---
Reviewed and agree with VICE PRESIDENT OF SOFTWARE DEVELOPMENT documentation and FIMs charting.
[2018-08-01] MEDS: busPIRone 5 MG Tablet PO ×3 (05:59→22:17)
[2018-08-01 07:00] VITALS: BP 158/72; PULSE 63; RESP 18; TEMP 36.6; O2SAT 96
[2018-08-01 07:06] LABS: Bedside Glucose 219 mg/dL (70-110)
[2018-08-01] MEDS: Pantoprazole Sodium 20 MG Tablet PO (08:45)
[2018-08-01] MEDS: Enoxaparin 30 MG/0.3 ML Syringe SC (08:45)
[2018-08-01 08:46] VITALS: PULSE 77
[2018-08-01] MEDS: hydrALAZINE 50 MG Tablet 75 MG PO ×4 (08:46→22:16)
[2018-08-01] MEDS: Furosemide 20 MG Tablet PO (08:46)
[2018-08-01] MEDS: Ferrous Sulfate 325 MG Tablet PO ×3 (08:46→17:21)
[2018-08-01] MEDS: Multivitamins,Ther W-Minerals Tablet 1 TABLET PO (08:46)
[2018-08-01] MEDS: Carvedilol 25 MG Tablet PO ×2 (08:47→22:17)
[2018-08-01] MEDS: amLODIPine 10 MG Tablet PO (08:47)
[2018-08-01] MEDS: Senna/Docusate Sodium 1 Tablet 2 TABLET PO ×2 (08:47→22:20)
[2018-08-01] MEDS: predniSONE 20 MG Tablet 50 MG PO (08:49)
[2018-08-01] MEDS: Insulin Lispro 100 UNIT/ML INSULN.PEN SC ×3 (08:50→17:20)
[2018-08-01] MEDS: Calcium (Elemental) 500 MG Tablet PO ×2 (08:52→22:19)
[2018-08-01] MEDS: Sertraline 100 MG Tablet PO (08:52)
[2018-08-01] MEDS: Menthol/Lanolin/Calamine/Znox 113 GM Tube 1 APPLIC TOPICAL ×2 (08:54→22:23)
[2018-08-01 11:45] LABS: Bedside Glucose 222 mg/dL (70-110)
--- NOTE | 2018-08-01 12:00 | NURSING ---
Therapy notified nursing at 11:15 AM that patient was an assisted fall to the ground during a slide board transfer in patients room via OT personnel. Patient sitting upright on buttocks when this nurse walked into room. Denies pain and ROM is per her normal. Dr. Shaw aware in person verbally. VS [id number]- 98.0 oral, 96% RA. Patient is alert and oriented x 3. Raymundo lift used to get patient up from ground and assisted to bed. No skin issues noted at this time.
[2018-08-01 13:14] VITALS: PULSE 78
--- NOTE | 2018-08-01 15:02 | PCM.PN.HOSP ---
Subjective: Patient seen and examined. She feels well and has no complaints. Review of systems otherwise negative. Vitals reviewed. Vitals/I&O's: Vital Signs Temp Pulse Resp BP Pulse Ox 97.9 F 78 18 158/72 H 96 08/01/18 07:00 08/01/18 13:14 08/01/18 07:00 08/01/18 07:00 08/01/18 07:00 Oxygen Delivery Method Room Air Weight: 248 lb 3.848 oz Body Mass Index (BMI) 47.2 Intake and Output for Last 24 Hours 07/30/18 07/31/18 08/01/18 23:59 23:59 23:59 Intake Total 440 / 440 360 / 360 600 / 600 Balance 440 / 440 360 / 360 600 / 600 General: Alert, Oriented x3, Cooperative, No apparent distress HEENT: Atraumatic, PERRLA, EOMI, Normocephalic Oral: Moist Mucosa Neck: Supple, No JVD, Negative Carotid Bruits Lungs: Clear to auscultation, Normal air movement Cardiovascular: Regular rate, Regular Rhythm, Normal S1, Normal S2, No murmurs Abdomen: Bowel Sounds Present, Soft, Non Tender, Non-Distended, No Hepato-splenomegaly Extremities: No clubbing, No cyanosis, No edema, Capillary Refill Less than 3 Seconds Musculoskeletal: - - both LEs wrapped in ARISTIDES bandage Lymphatic: No Cervical, Supraclavicular, or Inguinal Adenopathy Neurological: Cranial nerves II-XII grossly intact Psych/Mental Status: Normal Affect, Appropriate, Alert and oriented to time, place, person, mood and affect Laboratory Results 07/31/18 16:29: POC Glucose 288 H 07/31/18 20:12: POC Glucose 259 H 08/01/18 06:52: POC Glucose 219 H 08/01/18 11:20: POC Glucose 222 H Current Medications Acetaminophen (Tylenol) 650 mg PO Q8H PRN PRN PRN Reason: PAIN Amlodipine Besylate (Norvasc) 10 mg PO DAILY [facility] Last Admin: 08/01/18 08:47 Dose: 10 mg Atorvastatin Calcium (Lipitor) 20 mg PO QHS [facility] Last Admin: 07/31/18 20:06 Dose: 20 mg Bisacodyl (Dulcolax) 10 mg RECTAL .PRN X 1 PRN PRN Reason: Constipation Bisacodyl (Dulcolax) 10 mg RECTAL .PRN X 1 PRN PRN Reason: Constipation Buspirone HCl (Buspar) 5 mg PO TID [facility] Last Admin: 08/01/18 13:14 Dose: 5 mg Calamine/Phenol (Calmoseptine Ointment) 1 applic TOPICAL BID [facility]; Protocol Last Admin: 08/01/18 08:54 Dose: 1 applicatio Calcium Carbonate (Os-Chinedu 500) 500 mg PO BID [facility] Last Admin: 08/01/18 08:52 Dose: 500 mg Carvedilol (Coreg) 25 mg PO BID [facility] Last Admin: 08/01/18 08:47 Dose: 25 mg Enoxaparin Sodium (Lovenox) 30 mg SC DAILY [facility] Last Admin: 08/01/18 08:45 Dose: 30 mg Ferrous Sulfate (Ferrous Sulfate) 325 mg PO TIDCM [facility] Last Admin: 08/01/18 12:15 Dose: 325 mg Furosemide (Lasix) 20 mg PO DAILY [facility] Last Admin: 08/01/18 08:46 Dose: 20 mg Gabapentin (Neurontin) 300 mg PO QHS [facility] Last Admin: 07/31/18 20:06 Dose: 300 mg Hydralazine HCl (Apresoline) 75 mg PO 4X/DAY [facility] Last Admin: 08/01/18 13:14 Dose: 75 mg Hydrocortisone Acetate (Anusol Hc) 25 mg RECTAL BID PRN PRN PRN Reason: Hemorrhoids Last Admin: 07/30/18 13:54 Dose: 25 mg Insulin Glargine (Lantus (Bkc)) 37 units SC BREAKFAST [facility] Last Admin: 08/01/18 08:51 Dose: 37 u Insulin Human Lispro (Humalog Kwikpen (Bkc)) 5 unit SC BID@1200,1700 [facility] Last Admin: 08/01/18 12:15 Dose: 5 u Insulin Human Lispro (Humalog Kwikpen (Bkc)) 4 unit SC DAILY@0800 [facility] Last Admin: 08/01/18 08:50 Dose: 4 u Magnesium Hydroxide (Milk Of Magnesia) 30 ml PO .PRN X 1 PRN PRN Reason: Constipation Montelukast Sodium (Singulair) 10 mg PO QHS [facility] Last Admin: 07/31/18 20:06 Dose: 10 mg Multivitamins/Minerals (Multivitamin With Minerals) 1 tablet PO DAILY@0800 [facility] Last Admin: 08/01/18 08:46 Dose: 1 tablet Ondansetron HCl (Zofran Odt) 4 mg PO Q8H PRN PRN PRN Reason: NAUSEA Pantoprazole Sodium (Protonix) 20 mg PO DAILY [facility] Last Admin: 08/01/18 08:45 Dose: 20 mg Prednisone () 50 mg PO DAILY@0800 [facility] Last Admin: 08/01/18 08:49 Dose: 50 mg Senna/Docusate Sodium (Senokot-S, Leti-Colace) 2 tablet PO BID [facility] Last Admin: 08/01/18 08:47 Dose: 1 tablet Sertraline HCl (Zoloft) 100 mg PO DAILY [facility] Last Admin: 08/01/18 08:52 Dose: 100 mg Medical Necessity - Tobacco Use Smoking Status: Never smoker Tobacco Use: Non-smoker Assessment/Plan All Active Problems Debility (Acute) 1. 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 CKD 3: stable. 3. Type 2 diabetes mellitus: on lantus 37IU qhs and ISS. Accuchecks ACHS. ISS 4. HTN: control has improved On amlodipine 10 mg daily, carvedilol 25 mg daily, hydralazine 50 mg 3 times daily and losartan 50 mg daily. 5. Ecchymosis of lower abdomen: Likely due to Lovenox injections. Stable and asymptomatic. We will continue to monitor. 6. Bilateral lower extremity edema:on lasix DVT prophylaxis: lovenox Code Visit Inpatient E&M: 17875 Subs Hosp L2
--- NOTE | 2018-08-01 15:06 | PN_ITS ---
Subjective: Patient seen and examined. She feels well and has no complaints. Review of systems otherwise negative. Vitals reviewed. Vitals/I&O's: Vital Signs Temp Pulse Resp BP Pulse Ox 97.9 F 78 18 158/72 H 96 08/01/18 07:00 08/01/18 13:14 08/01/18 07:00 08/01/18 07:00 08/01/18 07:00 Oxygen Delivery Method Room Air Weight: 248 lb 3.848 oz Body Mass Index (BMI) 47.2 Intake and Output for Last 24 Hours 07/30/18 07/31/18 08/01/18 23:59 23:59 23:59 Intake Total 440 / 440 360 / 360 600 / 600 Balance 440 / 440 360 / 360 600 / 600 General: Alert, Oriented x3, Cooperative, No apparent distress HEENT: Atraumatic, PERRLA, EOMI, Normocephalic Oral: Moist Mucosa Neck: Supple, No JVD, Negative Carotid Bruits Lungs: Clear to auscultation, Normal air movement Cardiovascular: Regular rate, Regular Rhythm, Normal S1, Normal S2, No murmurs Abdomen: Bowel Sounds Present, Soft, Non Tender, Non-Distended, No Hepato- splenomegaly Extremities: No clubbing, No cyanosis, No edema, Capillary Refill Less than 3 Seconds Musculoskeletal: - - both LEs wrapped in ARISTIDES bandage Lymphatic: No Cervical, Supraclavicular, or Inguinal Adenopathy Neurological: Cranial nerves II-XII grossly intact Psych/Mental Status: Normal Affect, Appropriate, Alert and oriented to time, place, person, mood and affect Laboratory Results 07/31/18 16:29: POC Glucose 288 H 07/31/18 20:12: POC Glucose 259 H 08/01/18 06:52: POC Glucose 219 H 08/01/18 11:20: POC Glucose 222 H Current Medications Acetaminophen (Tylenol) 650 mg PO Q8H PRN PRN PRN Reason: PAIN Amlodipine Besylate (Norvasc) 10 mg PO DAILY [facility] Last Admin: 08/01/18 08:47 Dose: 10 mg Atorvastatin Calcium (Lipitor) 20 mg PO QHS [facility] Last Admin: 07/31/18 20:06 Dose: 20 mg Bisacodyl (Dulcolax) 10 mg RECTAL .PRN X 1 PRN PRN Reason: Constipation Bisacodyl (Dulcolax) 10 mg RECTAL .PRN X 1 PRN PRN Reason: Constipation Buspirone HCl (Buspar) 5 mg PO TID [facility] Last Admin: 08/01/18 13:14 Dose: 5 mg Calamine/Phenol (Calmoseptine Ointment) 1 applic TOPICAL BID [facility]; Protocol Last Admin: 08/01/18 08:54 Dose: 1 applicatio Calcium Carbonate (Os-Chinedu 500) 500 mg PO BID [facility] Last Admin: 08/01/18 08:52 Dose: 500 mg Carvedilol (Coreg) 25 mg PO BID [facility] Last Admin: 08/01/18 08:47 Dose: 25 mg Enoxaparin Sodium (Lovenox) 30 mg SC DAILY [facility] Last Admin: 08/01/18 08:45 Dose: 30 mg Ferrous Sulfate (Ferrous Sulfate) 325 mg PO TIDCM [facility] Last Admin: 08/01/18 12:15 Dose: 325 mg Furosemide (Lasix) 20 mg PO DAILY [facility] Last Admin: 08/01/18 08:46 Dose: 20 mg Gabapentin (Neurontin) 300 mg PO QHS [facility] Last Admin: 07/31/18 20:06 Dose: 300 mg Hydralazine HCl (Apresoline) 75 mg PO 4X/DAY [facility] Last Admin: 08/01/18 13:14 Dose: 75 mg Hydrocortisone Acetate (Anusol Hc) 25 mg RECTAL BID PRN PRN PRN Reason: Hemorrhoids Last Admin: 07/30/18 13:54 Dose: 25 mg Insulin Glargine (Lantus (Bkc)) 37 units SC BREAKFAST [facility] Last Admin: 08/01/18 08:51 Dose: 37 u Insulin Human Lispro (Humalog Kwikpen (Bkc)) 5 unit SC BID@1200,1700 [facility] Last Admin: 08/01/18 12:15 Dose: 5 u Insulin Human Lispro (Humalog Kwikpen (Bkc)) 4 unit SC DAILY@0800 [facility] Last Admin: 08/01/18 08:50 Dose: 4 u Magnesium Hydroxide (Milk Of Magnesia) 30 ml PO .PRN X 1 PRN PRN Reason: Constipation Montelukast Sodium (Singulair) 10 mg PO QHS [facility] Last Admin: 07/31/18 20:06 Dose: 10 mg Multivitamins/Minerals (Multivitamin With Minerals) 1 tablet PO DAILY@0800 [facility] Last Admin: 08/01/18 08:46 Dose: 1 tablet Ondansetron HCl (Zofran Odt) 4 mg PO Q8H PRN PRN PRN Reason: NAUSEA Pantoprazole Sodium (Protonix) 20 mg PO DAILY [facility] Last Admin: 08/01/18 08:45 Dose: 20 mg Prednisone () 50 mg PO DAILY@0800 [facility] Last Admin: 08/01/18 08:49 Dose: 50 mg Senna/Docusate Sodium (Senokot-S, Leti-Colace) 2 tablet PO BID [facility] Last Admin: 08/01/18 08:47 Dose: 1 tablet Sertraline HCl (Zoloft) 100 mg PO DAILY [facility] Last Admin: 08/01/18 08:52 Dose: 100 mg Medical Necessity - Tobacco Use Smoking Status: Never smoker Tobacco Use: Non-smoker Assessment/Plan All Active Problems Debility (Acute) 1. chronic inflammatory demyelinating polyneuropathy * s/p 5 rounds of plasmapheresis at [facility] * on PO prednisone * neurology on board * 2. CKD 3: stable. 3. Type 2 diabetes mellitus: * on lantus 37IU qhs and ISS. * Accuchecks ACHS. ISS * 4. HTN: * control has improved * On amlodipine 10 mg daily, carvedilol 25 mg daily, hydralazine 50 mg 3 times daily and losartan 50 mg daily. * 5. Ecchymosis of lower abdomen: Likely due to Lovenox injections. Stable and asymptomatic. We will continue to monitor. 6. Bilateral lower extremity edema:on lasix DVT prophylaxis: lovenox Code Visit Inpatient E&M: 43899 Subs Hosp L2
--- NOTE | 2018-08-01 15:30 | NURSING ---
Dr. Gutierrez aware of assisted fall with no injury.
[2018-08-01 16:36] LABS: Bedside Glucose 278 mg/dL (70-110)
[2018-08-01 17:21] VITALS: PULSE 70
[2018-08-01 20:32] VITALS: BP 148/74; PULSE 80; RESP 17; TEMP 36.5; O2SAT 95
[2018-08-01 21:41] LABS: Bedside Glucose 350 mg/dL (70-110)
[2018-08-01 22:16] VITALS: PULSE 80
[2018-08-01] MEDS: Atorvastatin Calcium 20 MG Tablet PO (22:18)
[2018-08-01] MEDS: Gabapentin 300 MG Capsule PO (22:18)
[2018-08-01] MEDS: Montelukast 10 MG Tablet PO (22:20)
[2018-08-02] VITALS (7 sets, daily range): BP systolic 140–160; BP diastolic 70–77; PULSE 60–79; RESP 16–18; TEMP 36.3–36.5; O2SAT 93–95
[2018-08-02] MEDS: busPIRone 5 MG Tablet PO ×3 (05:58→21:36)
[2018-08-02 07:05] LABS: Bedside Glucose 206 mg/dL (70-110)
[2018-08-02] MEDS: Sertraline 100 MG Tablet PO (07:31)
[2018-08-02] MEDS: Pantoprazole Sodium 20 MG Tablet PO (07:31)
[2018-08-02] MEDS: Calcium (Elemental) 500 MG Tablet PO ×2 (07:31→21:35)
[2018-08-02] MEDS: Senna/Docusate Sodium 1 Tablet 2 TABLET PO (07:31)
[2018-08-02] MEDS: Carvedilol 25 MG Tablet PO ×2 (07:31→21:36)
[2018-08-02] MEDS: amLODIPine 10 MG Tablet PO (07:32)
[2018-08-02] MEDS: Furosemide 20 MG Tablet PO (07:32)
[2018-08-02] MEDS: hydrALAZINE 50 MG Tablet 75 MG PO ×4 (07:32→21:36)
[2018-08-02] MEDS: Insulin Lispro 100 UNIT/ML INSULN.PEN SC ×3 (07:33→17:01)
[2018-08-02] MEDS: Enoxaparin 30 MG/0.3 ML Syringe SC (07:33)
[2018-08-02] MEDS: predniSONE 20 MG Tablet 50 MG PO (07:33)
[2018-08-02] MEDS: Multivitamins,Ther W-Minerals Tablet 1 TABLET PO (07:33)
[2018-08-02] MEDS: Ferrous Sulfate 325 MG Tablet PO ×3 (07:33→17:01)
[2018-08-02] MEDS: Menthol/Lanolin/Calamine/Znox 113 GM Tube 1 APPLIC TOPICAL ×2 (07:42→21:38)
--- NOTE | 2018-08-02 09:52 | PCM.PN.NEU ---
Subjective: No new complaints. Staffed in team meeting. Performing sliding board transfers with physical therapy. Continues to do well with occupational therapy. New flexion of her left hip muscles is noted which is an improvement. Doing well from a nursing standpoint. Plan to update insurance tomorrow. - Physical Exam General: Alert, Oriented x3, Cooperative, No apparent distress Neurological: Cranial nerves II-XII grossly intact Psych/Mental Status: Normal Affect, Alert and oriented to time, place, person, mood and affect Vital Signs Temp Pulse Resp BP Pulse Ox 36.3 C L 60 16 157/77 H 95 08/02/18 08:28 08/02/18 08:28 08/02/18 08:28 08/02/18 08:28 08/02/18 08:28 Oxygen Delivery Method Room Air Weight: 112.6 kg Body Mass Index (BMI) 47.2 Intake and Output for Last 24 Hours 07/31/18 08/01/18 08/02/18 23:59 23:59 23:59 Intake Total 360 / 360 1080 / 1080 Balance 360 / 360 1080 / 1080 POC Glucose 08/02/18 08/01/18 08/01/18 06:41 21:33 16:32 POC Glucose 206 H 350 H 278 H 08/01/18 11:20 POC Glucose 222 H Current Medications Acetaminophen 650 mg 07/28/18 19:17 Tylenol PO Q8H PRN PRN PAIN Amlodipine Besylate 10 mg 07/31/18 10:00 08/02/18 07:32 Norvasc PO 10 mg DAILY [facility] Administration Atorvastatin Calcium 20 mg 07/28/18 22:00 08/01/18 22:18 Lipitor PO 20 mg QHS [facility] Administration Bisacodyl 10 mg 07/28/18 16:29 Dulcolax RECTAL Bisacodyl 10 mg 07/28/18 18:55 Dulcolax RECTAL Buspirone HCl 5 mg 07/28/18 22:00 08/02/18 05:58 Buspar PO 5 mg TID [facility] Administration Calamine/Phenol 1 applic 07/30/18 22:00 08/02/18 07:42 Calmoseptine Ointment TOPICAL 1 applicatio BID [facility] Administration Calcium Carbonate 500 mg 07/28/18 22:00 08/02/18 07:31 Os-Chinedu 500 PO 500 mg BID [facility] Administration Carvedilol 25 mg 07/28/18 22:00 08/02/18 07:31 Coreg PO 25 mg BID [facility] Administration Enoxaparin Sodium 30 mg 07/29/18 10:00 08/02/18 07:33 Lovenox SC 30 mg DAILY [facility] Administration Ferrous Sulfate 325 mg 07/29/18 17:00 08/02/18 07:33 Ferrous Sulfate PO 325 mg TIDCM [facility] Administration Furosemide 20 mg 07/29/18 10:00 08/02/18 07:32 Lasix PO 20 mg DAILY [facility] Administration Gabapentin 300 mg 07/28/18 22:00 08/01/18 22:18 Neurontin PO 300 mg QHS [facility] Administration Hydralazine HCl 75 mg 07/28/18 18:00 08/02/18 07:32 Apresoline PO 75 mg 4X/DAY [facility] Administration Hydrocortisone Acetate 25 mg 07/29/18 14:00 07/30/18 13:54 Anusol Hc RECTAL 25 mg BID PRN PRN Administration Hemorrhoids Insulin Glargine 37 units 07/29/18 08:00 08/02/18 07:34 Lantus ([facility]) SC 37 u BREAKFAST [facility] Administration Insulin Human Lispro 5 unit 07/28/18 17:00 08/01/18 17:20 Humalog Kwikpen ([facility]) SC 5 u BID@1200,1700 [facility] Administration Insulin Human Lispro 4 unit 07/29/18 08:00 08/02/18 07:33 Humalog Kwikpen ([facility]) SC 4 u DAILY@0800 [facility] Administration Magnesium Hydroxide 30 ml 07/28/18 18:55 Milk Of Magnesia PO .PRN X 1 PRN Constipation Montelukast Sodium 10 mg 07/28/18 22:00 08/01/18 22:20 Singulair PO 10 mg QHS [facility] Administration Multivitamins/Minerals 1 tablet 07/29/18 08:00 08/02/18 07:33 Multivitamin With Minerals PO 1 tablet DAILY@0800 [facility] Administration Ondansetron HCl 4 mg 07/28/18 16:29 Zofran Odt PO Q8H PRN PRN NAUSEA Pantoprazole Sodium 20 mg 07/29/18 10:00 08/02/18 07:31 Protonix PO 20 mg DAILY [facility] Administration Prednisone 50 mg 07/29/18 08:00 08/02/18 07:33 PO 50 mg DAILY@0800 [facility] Administration Senna/Docusate Sodium 2 tablet 07/28/18 22:00 08/02/18 07:31 Senokot-S, Leti-Colace PO 2 tablet BID [facility] Administration Sertraline HCl 100 mg 07/29/18 10:00 08/02/18 07:31 Zoloft PO 100 mg DAILY [facility] Administration Medical Necessity - Tobacco Use Smoking Status: Never smoker Tobacco Use: Non-smoker Assessment/Plan All Active Problems Debility (Acute) Debility status post prolonged hospitalization for acute/subacute neuropathy of unknown cause. Workup was previously negative for GBS including lumbar puncture. She has received a course of IVIG as well as now recently plasmapheresis and is on steroids. Goal of rehab is rastafari of prior level of functional independence. Plan: Physical therapy for gait and balance. 08/02: Stable/improved Occupational Therapy for ADLs. 08/02: Stable/improved PRN analgesics 07/31: Controlled. 08/02: Stable Bowel protocol. 08/02: No issues DVT prophylaxis Currently on steroids, will need to consider further immune suppression 07/31: Stable
--- NOTE | 2018-08-02 10:02 | PN.NEURO_ITS ---
Subjective: No new complaints. Staffed in team meeting. Performing sliding board transfers with physical therapy. Continues to do well with occupational therapy. New flexion of her left hip muscles is noted which is an improvement. Doing well from a nursing standpoint. Plan to update insurance tomorrow. - Physical Exam General: Alert, Oriented x3, Cooperative, No apparent distress Neurological: Cranial nerves II-XII grossly intact Psych/Mental Status: Normal Affect, Alert and oriented to time, place, person, mood and affect Vital Signs Temp Pulse Resp BP Pulse Ox 36.3 C L 60 16 157/77 H 95 08/02/18 08:28 08/02/18 08:28 08/02/18 08:28 08/02/18 08:28 08/02/18 08:28 Oxygen Delivery Method Room Air Weight: 112.6 kg Body Mass Index (BMI) 47.2 Intake and Output for Last 24 Hours 07/31/18 08/01/18 08/02/18 23:59 23:59 23:59 Intake Total 360 / 360 1080 / 1080 Balance 360 / 360 1080 / 1080 POC Glucose 08/02/18 08/01/18 08/01/18 06:41 21:33 16:32 POC Glucose 206 H 350 H 278 H 08/01/18 11:20 POC Glucose 222 H Current Medications Acetaminophen 650 mg 07/28/18 19:17 Tylenol PO Q8H PRN PRN PAIN Amlodipine Besylate 10 mg 07/31/18 10:00 08/02/18 07:32 Norvasc PO 10 mg DAILY [facility] Administration Atorvastatin Calcium 20 mg 07/28/18 22:00 08/01/18 22:18 Lipitor PO 20 mg QHS [facility] Administration Bisacodyl 10 mg 07/28/18 16:29 Dulcolax RECTAL Bisacodyl 10 mg 07/28/18 18:55 Dulcolax RECTAL Buspirone HCl 5 mg 07/28/18 22:00 08/02/18 05:58 Buspar PO 5 mg TID [facility] Administration Calamine/Phenol 1 applic 07/30/18 22:00 08/02/18 07:42 Calmoseptine Ointment TOPICAL 1 applicatio BID [facility] Administration Calcium Carbonate 500 mg 07/28/18 22:00 08/02/18 07:31 Os-Chinedu 500 PO 500 mg BID [facility] Administration Carvedilol 25 mg 07/28/18 22:00 08/02/18 07:31 Coreg PO 25 mg BID [facility] Administration Enoxaparin Sodium 30 mg 07/29/18 10:00 08/02/18 07:33 Lovenox SC 30 mg DAILY [facility] Administration Ferrous Sulfate 325 mg 07/29/18 17:00 08/02/18 07:33 Ferrous Sulfate PO 325 mg TIDCM [facility] Administration Furosemide 20 mg 07/29/18 10:00 08/02/18 07:32 Lasix PO 20 mg DAILY [facility] Administration Gabapentin 300 mg 07/28/18 22:00 08/01/18 22:18 Neurontin PO 300 mg QHS [facility] Administration Hydralazine HCl 75 mg 07/28/18 18:00 08/02/18 07:32 Apresoline PO 75 mg 4X/DAY [facility] Administration Hydrocortisone Acetate 25 mg 07/29/18 14:00 07/30/18 13:54 Anusol Hc RECTAL 25 mg BID PRN PRN Administration Hemorrhoids Insulin Glargine 37 units 07/29/18 08:00 08/02/18 07:34 Lantus ([facility]) SC 37 u BREAKFAST [facility] Administration Insulin Human Lispro 5 unit 07/28/18 17:00 08/01/18 17:20 Humalog Kwikpen ([facility]) SC 5 u BID@1200,1700 [facility] Administration Insulin Human Lispro 4 unit 07/29/18 08:00 08/02/18 07:33 Humalog Kwikpen ([facility]) SC 4 u DAILY@0800 [facility] Administration Magnesium Hydroxide 30 ml 07/28/18 18:55 Milk Of Magnesia PO .PRN X 1 PRN Constipation Montelukast Sodium 10 mg 07/28/18 22:00 08/01/18 22:20 Singulair PO 10 mg QHS [facility] Administration Multivitamins/Minerals 1 tablet 07/29/18 08:00 08/02/18 07:33 Multivitamin With Minerals PO 1 tablet DAILY@0800 [facility] Administration Ondansetron HCl 4 mg 07/28/18 16:29 Zofran Odt PO Q8H PRN PRN NAUSEA Pantoprazole Sodium 20 mg 07/29/18 10:00 08/02/18 07:31 Protonix PO 20 mg DAILY [facility] Administration Prednisone 50 mg 07/29/18 08:00 08/02/18 07:33 PO 50 mg DAILY@0800 [facility] Administration Senna/Docusate Sodium 2 tablet 07/28/18 22:00 08/02/18 07:31 Senokot-S, Leti-Colace PO 2 tablet BID [facility] Administration Sertraline HCl 100 mg 07/29/18 10:00 08/02/18 07:31 Zoloft PO 100 mg DAILY [facility] Administration Medical Necessity - Tobacco Use Smoking Status: Never smoker Tobacco Use: Non-smoker Assessment/Plan All Active Problems Debility (Acute) Debility status post prolonged hospitalization for acute/subacute neuropathy of unknown cause. Workup was previously negative for GBS including lumbar puncture. She has received a course of IVIG as well as now recently plasmapheresis and is on steroids. Goal of rehab is latter-day of prior level of functional independence. Plan: Physical therapy for gait and balance. 08/02: Stable/improved Occupational Therapy for ADLs. 08/02: Stable/improved PRN analgesics 07/31: Controlled. 08/02: Stable Bowel protocol. 08/02: No issues DVT prophylaxis Currently on steroids, will need to consider further immune suppression 07/31: Stable
[2018-08-02 12:15] LABS: Bedside Glucose 161 mg/dL (70-110)
--- NOTE | 2018-08-02 12:38 | CASEMGMT ---
Team meeting held. Patient present. No discharge date set at this time. Patient to continue with further care and treatment on the Inpatient Rehab Unit. Patient plans to discharge to home with family vs. SNF. Patient currently still working on Medicaid application with Michela Hensley as employment case manager. Patient also reporting to have been able to set up a phone interview for disability application. Patient with insurance update due today, 08/02/18 and aware that continued stay approval is not guaranteed. Support given. Will continue to follow. Raj MADRID, JOSE
--- NOTE | 2018-08-02 13:50 | CASEMGMT ---
Insurance Clinical information faxed. Pending continued stay approval at this time. Auth#[id number] Raj MADRID, JOSE
[2018-08-02 16:20] LABS: Bedside Glucose 307 mg/dL (70-110)
[2018-08-02] MEDS: Atorvastatin Calcium 20 MG Tablet PO (21:35)
[2018-08-02] MEDS: Gabapentin 300 MG Capsule PO (21:36)
[2018-08-02] MEDS: Montelukast 10 MG Tablet PO (21:36)
[2018-08-02 21:51] LABS: Bedside Glucose 340 mg/dL (70-110)
[2018-08-03] VITALS (8 sets, daily range): BP systolic 136–161; BP diastolic 55–72; PULSE 61–76; RESP 16–18; TEMP 36.4–36.8; O2SAT 96–97
[2018-08-03] MEDS: busPIRone 5 MG Tablet PO ×3 (06:17→21:51)
[2018-08-03 06:45] LABS: Bedside Glucose 213 mg/dL (70-110)
[2018-08-03] MEDS: Insulin Lispro 100 UNIT/ML INSULN.PEN SC ×3 (07:23→16:53)
[2018-08-03] MEDS: Furosemide 20 MG Tablet PO ×2 (07:23→15:04)
[2018-08-03] MEDS: Sertraline 100 MG Tablet PO (07:23)
[2018-08-03] MEDS: Carvedilol 25 MG Tablet PO ×2 (07:24→21:52)
[2018-08-03] MEDS: Multivitamins,Ther W-Minerals Tablet 1 TABLET PO (07:24)
[2018-08-03] MEDS: predniSONE 20 MG Tablet 50 MG PO (07:24)
[2018-08-03] MEDS: Ferrous Sulfate 325 MG Tablet PO ×3 (07:24→16:49)
[2018-08-03] MEDS: Calcium (Elemental) 500 MG Tablet PO ×2 (07:24→21:52)
[2018-08-03] MEDS: amLODIPine 10 MG Tablet PO (07:24)
[2018-08-03] MEDS: Pantoprazole Sodium 20 MG Tablet PO (07:24)
[2018-08-03] MEDS: hydrALAZINE 50 MG Tablet 75 MG PO ×4 (07:24→21:50)
[2018-08-03] MEDS: Enoxaparin 30 MG/0.3 ML Syringe SC (07:25)
[2018-08-03] MEDS: Menthol/Lanolin/Calamine/Znox 113 GM Tube 1 APPLIC TOPICAL ×2 (07:25→21:51)
--- NOTE | 2018-08-03 09:07 | CASEMGMT ---
Insurance Continued stay approved with next update due on 08/09/18. Auth#[id number] Raj MADRID, JOSE
--- NOTE | 2018-08-03 09:24 | NURSING ---
increased edema noted from waist area to bilateral upper thighs. increased clear seeping noted from right hip. c/o shortness of breath during activity. LCTA, post. apical regular. denies headache, dizziness, palpitations, or cough. patient up in w/c at this time with therapy. dr koehler noted. new order for bnp and cxr. no acute distress noted. a/o x3.
--- NOTE | 2018-08-03 09:32 | RAD_ITS ---
STUDY: X-RAY CHEST REASON FOR EXAM: Female, 58 years old. Increasing shortness of breath. TECHNIQUE: AP and lateral views of the chest. COMPARISON: None. FINDINGS: Questionable faint 1.8 cm nodule in the right midlung. Follow-up is recommended. There is no demonstrated pleural abnormality. Normal size heart. Normal mediastinum and adam. Normal visualized pulmonary arteries. Normal visualized aortic arch and descending thoracic aorta. Normal visualized thoracic spine. Normal visualized ribs, clavicles, and shoulders. There is no demonstrated abnormality of the visualized soft tissue structures of the upper abdomen. RAD/Chest PA and Lateral IMPRESSION: Questionable faint 1.8 cm nodule in the right midlung. Follow-up is recommended. Electronically Signed: Sylvester Minaya MD at 10:03 EST , Service support ,
--- NOTE | 2018-08-03 09:40 | NURSING ---
patient taken down via bed for cxr.
--- NOTE | 2018-08-03 09:56 | NURSING ---
patient returned to unit from xray.
[2018-08-03 12:11] LABS: Bedside Glucose 201 mg/dL (70-110)
--- NOTE | 2018-08-03 12:49 | NURSING ---
dr koehler cortex bnp of 381. dr arango aware. new order to decrease prednisone to 40mg daily. no acute distress noted. no sob at rest. patient sitting up in chair at this time.
--- NOTE | 2018-08-03 14:16 | NURSING ---
dr koehler ordered increased lasix to 40 mg bid. patient aware.
--- NOTE | 2018-08-03 14:34 | NURSING ---
therapy called for assistance in getting pt to bsc to void with slideboard. upon transferring bedside commode started to slip on floor and pt lowered to floor very slowly for saftey. pt back to bed after thee mat placed and supervisor aircraft cleaning called. event not a true fall and follow up protocol not necessary.
--- NOTE | 2018-08-03 16:12 | CASEMGMT ---
Social Work Met with patient in room. Completed Durable Power of [employer] Consultant for [employer] Care paperwork along with Living Will. Original documents provided to patient and copy placed on chart. MERCY Bowser, JOSE
[2018-08-03] MEDS: Furosemide 40 MG Tablet PO (16:50)
[2018-08-03 17:02] LABS: Bedside Glucose 278 mg/dL (70-110)
[2018-08-03] MEDS: Gabapentin 300 MG Capsule PO (21:52)
[2018-08-03] MEDS: Atorvastatin Calcium 20 MG Tablet PO (21:52)
[2018-08-03] MEDS: Senna/Docusate Sodium 1 Tablet 2 TABLET PO (21:52)
[2018-08-03] MEDS: Montelukast 10 MG Tablet PO (21:53)
[2018-08-03 22:11] LABS: Bedside Glucose 297 mg/dL (70-110)
[2018-08-04] VITALS (7 sets, daily range): BP systolic 138–159; BP diastolic 74–80; PULSE 68–78; RESP 17–18; TEMP 36.5–36.7; O2SAT 95–98
--- NOTE | 2018-08-04 01:08 | NURSING ---
Reviewed and agree with PROCESS DESIGN CHEMICAL ENGINEER documentation and FIMs charting.
[2018-08-04 06:36] LABS: Bedside Glucose 283 mg/dL (70-110)
[2018-08-04] MEDS: busPIRone 5 MG Tablet PO ×3 (06:39→22:05)
[2018-08-04] MEDS: Insulin Lispro 100 UNIT/ML INSULN.PEN SC ×3 (10:50→17:58)
[2018-08-04] MEDS: Ferrous Sulfate 325 MG Tablet PO ×3 (10:50→17:56)
[2018-08-04] MEDS: Multivitamins,Ther W-Minerals Tablet 1 TABLET PO (10:51)
[2018-08-04] MEDS: hydrALAZINE 50 MG Tablet 75 MG PO ×4 (10:51→22:05)
[2018-08-04] MEDS: predniSONE 20 MG Tablet 40 MG PO (10:51)
[2018-08-04] MEDS: Furosemide 40 MG Tablet PO ×2 (10:52→17:57)
[2018-08-04] MEDS: amLODIPine 10 MG Tablet PO (10:52)
[2018-08-04] MEDS: Sertraline 100 MG Tablet PO (10:53)
[2018-08-04] MEDS: Pantoprazole Sodium 20 MG Tablet PO (10:53)
[2018-08-04] MEDS: Calcium (Elemental) 500 MG Tablet PO ×2 (10:53→22:04)
[2018-08-04] MEDS: Senna/Docusate Sodium 1 Tablet 2 TABLET PO (10:53)
[2018-08-04] MEDS: Enoxaparin 30 MG/0.3 ML Syringe SC (10:54)
[2018-08-04] MEDS: Menthol/Lanolin/Calamine/Znox 113 GM Tube 1 APPLIC TOPICAL ×2 (10:54→22:06)
[2018-08-04] MEDS: Carvedilol 25 MG Tablet PO ×2 (10:54→22:04)
[2018-08-04 12:16] LABS: Bedside Glucose 276 mg/dL (70-110)
--- NOTE | 2018-08-04 14:59 | PCM.PN.HOSP ---
Subjective: Patient seen and examined. She was complaining of SOB yestserday, and BNP done was elevated at >300 Her lasix dose was increased to 40mg bid PO. CXR showed a questionable faint 1.8cm nodule in right midlung. To get Ct chest on outpatient basis to futher delineate nodule. Vitals/I&O's: Vital Signs Temp Pulse Resp BP Pulse Ox 98.1 F 78 18 159/80 H 95 08/04/18 07:32 08/04/18 10:51 08/04/18 07:32 08/04/18 10:51 08/04/18 07:32 Oxygen Delivery Method Room Air Weight: 244 lb 14.937 oz Body Mass Index (BMI) 47.2 Intake and Output for Last 24 Hours 08/02/18 08/03/18 08/04/18 23:59 23:59 23:59 Intake Total 600 / 600 880 / 880 Output Total 1000 / 1000 350 / 350 Balance -400 / -400 530 / 530 General: Alert, Oriented x3, Cooperative, No apparent distress HEENT: Atraumatic, PERRLA, EOMI, Normocephalic Oral: Moist Mucosa Neck: Supple, No JVD, Negative Carotid Bruits Lungs: few crackles in lung bases bilaterally Cardiovascular: Regular rate, Regular Rhythm, Normal S1, Normal S2, No murmurs Abdomen: Bowel Sounds Present, Soft, Non Tender, Non-Distended, No Hepato-splenomegaly Extremities: No clubbing, No cyanosis, No edema, Capillary Refill Less than 3 Seconds Musculoskeletal: - - both LEs wrapped in ARISTIDES bandage Lymphatic: No Cervical, Supraclavicular, or Inguinal Adenopathy Neurological: Cranial nerves II-XII grossly intact Psych/Mental Status: Normal Affect, Appropriate, Alert and oriented to time, place, person, mood and affect Laboratory Results 08/03/18 16:48: POC Glucose 278 H 08/03/18 21:47: POC Glucose 297 H 08/04/18 06:19: POC Glucose 283 H 08/04/18 11:53: POC Glucose 276 H Current Medications Acetaminophen (Tylenol) 650 mg PO Q8H PRN PRN PRN Reason: PAIN Amlodipine Besylate (Norvasc) 10 mg PO DAILY [facility] Last Admin: 08/04/18 10:52 Dose: 10 mg Atorvastatin Calcium (Lipitor) 20 mg PO QHS [facility] Last Admin: 08/03/18 21:52 Dose: 20 mg Bisacodyl (Dulcolax) 10 mg RECTAL .PRN X 1 PRN PRN Reason: Constipation Bisacodyl (Dulcolax) 10 mg RECTAL .PRN X 1 PRN PRN Reason: Constipation Buspirone HCl (Buspar) 5 mg PO TID [facility] Last Admin: 08/04/18 06:39 Dose: 5 mg Calamine/Phenol (Calmoseptine Ointment) 1 applic TOPICAL BID [facility]; Protocol Last Admin: 08/04/18 10:54 Dose: 1 applicatio Calcium Carbonate (Os-Chinedu 500) 500 mg PO BID [facility] Last Admin: 08/04/18 10:53 Dose: 500 mg Carvedilol (Coreg) 25 mg PO BID [facility] Last Admin: 08/04/18 10:54 Dose: 25 mg Enoxaparin Sodium (Lovenox) 30 mg SC DAILY [facility] Last Admin: 08/04/18 10:54 Dose: 30 mg Ferrous Sulfate (Ferrous Sulfate) 325 mg PO TIDCM [facility] Last Admin: 08/04/18 12:34 Dose: 325 mg Furosemide (Lasix) 40 mg PO BID@1000,1800 [facility] Last Admin: 08/04/18 10:52 Dose: 40 mg Gabapentin (Neurontin) 300 mg PO QHS [facility] Last Admin: 08/03/18 21:52 Dose: 300 mg Hydralazine HCl (Apresoline) 75 mg PO 4X/DAY [facility] Last Admin: 08/04/18 10:51 Dose: 75 mg Hydrocortisone Acetate (Anusol Hc) 25 mg RECTAL BID PRN PRN PRN Reason: Hemorrhoids Last Admin: 07/30/18 13:54 Dose: 25 mg Insulin Glargine (Lantus (Bkc)) 37 units SC BREAKFAST [facility] Last Admin: 08/04/18 10:55 Dose: 37 u Insulin Human Lispro (Humalog Kwikpen (Bkc)) 5 unit SC BID@1200,1700 [facility] Last Admin: 08/04/18 12:34 Dose: 5 u Insulin Human Lispro (Humalog Kwikpen (Bkc)) 4 unit SC DAILY@0800 [facility] Last Admin: 08/04/18 10:50 Dose: 4 u Magnesium Hydroxide (Milk Of Magnesia) 30 ml PO .PRN X 1 PRN PRN Reason: Constipation Montelukast Sodium (Singulair) 10 mg PO QHS [facility] Last Admin: 08/03/18 21:53 Dose: 10 mg Multivitamins/Minerals (Multivitamin With Minerals) 1 tablet PO DAILY@0800 [facility] Last Admin: 08/04/18 10:51 Dose: 1 tablet Ondansetron HCl (Zofran Odt) 4 mg PO Q8H PRN PRN PRN Reason: NAUSEA Pantoprazole Sodium (Protonix) 20 mg PO DAILY [facility] Last Admin: 08/04/18 10:53 Dose: 20 mg Prednisone () 40 mg PO DAILY@0800 [facility] Last Admin: 08/04/18 10:51 Dose: 40 mg Senna/Docusate Sodium (Senokot-S, Leti-Colace) 2 tablet PO BID [facility] Last Admin: 08/04/18 10:53 Dose: 2 tablet Sertraline HCl (Zoloft) 100 mg PO DAILY [facility] Last Admin: 08/04/18 10:53 Dose: 100 mg Medical Necessity - Tobacco Use Smoking Status: Never smoker Tobacco Use: Non-smoker Assessment/Plan All Active Problems Debility (Acute) 1. 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 HF of unknown etiology BNp was 381, and she was complaining of SOB. Lasix increased to 40mg bid. will get 2D echo to assess heart function Cumulative I's and O's show positive balance of 1.39 L with total output of 2.45 L. Yesterday urine output was 1 L. will monitor input output 3. ?right lung nodule CXR showed questionable faint 1.8cm nodule in right midlung. Follow up recommended to get CT chest on outpatient basis to further delineate right lung nodule. 3. CKD 3: stable. 4. Type 2 diabetes mellitus: on lantus 37IU qhs and ISS. Accuchecks ACHS. ISS sugars poorly controlled. Will increase sliding scale to med-high dose ISS 5. HTN: fairly controlled On amlodipine 10 mg daily, carvedilol 25 mg daily, hydralazine 50 mg 3 times daily and losartan 50 mg daily. 6. Ecchymosis of lower abdomen: Likely due to Lovenox injections. Stable and asymptomatic. We will continue to monitor. 7. Bilateral lower extremity edema:on lasix DVT prophylaxis: lovenox Code Visit Inpatient E&M: 70598 Subs Hosp L2
--- NOTE | 2018-08-04 15:03 | PN_ITS ---
Subjective: Patient seen and examined. She was complaining of SOB yestserday, and BNP done was elevated at >300 Her lasix dose was increased to 40mg bid PO. CXR showed a questionable faint 1.8cm nodule in right midlung. To get Ct chest on outpatient basis to futher delineate nodule. Vitals/I&O's: Vital Signs Temp Pulse Resp BP Pulse Ox 98.1 F 78 18 159/80 H 95 08/04/18 07:32 08/04/18 10:51 08/04/18 07:32 08/04/18 10:51 08/04/18 07:32 Oxygen Delivery Method Room Air Weight: 244 lb 14.937 oz Body Mass Index (BMI) 47.2 Intake and Output for Last 24 Hours 08/02/18 08/03/18 08/04/18 23:59 23:59 23:59 Intake Total 600 / 600 880 / 880 Output Total 1000 / 1000 350 / 350 Balance -400 / -400 530 / 530 General: Alert, Oriented x3, Cooperative, No apparent distress HEENT: Atraumatic, PERRLA, EOMI, Normocephalic Oral: Moist Mucosa Neck: Supple, No JVD, Negative Carotid Bruits Lungs: few crackles in lung bases bilaterally Cardiovascular: Regular rate, Regular Rhythm, Normal S1, Normal S2, No murmurs Abdomen: Bowel Sounds Present, Soft, Non Tender, Non-Distended, No Hepato- splenomegaly Extremities: No clubbing, No cyanosis, No edema, Capillary Refill Less than 3 Seconds Musculoskeletal: - - both LEs wrapped in ARISTIDES bandage Lymphatic: No Cervical, Supraclavicular, or Inguinal Adenopathy Neurological: Cranial nerves II-XII grossly intact Psych/Mental Status: Normal Affect, Appropriate, Alert and oriented to time, place, person, mood and affect Laboratory Results 08/03/18 16:48: POC Glucose 278 H 08/03/18 21:47: POC Glucose 297 H 08/04/18 06:19: POC Glucose 283 H 08/04/18 11:53: POC Glucose 276 H Current Medications Acetaminophen (Tylenol) 650 mg PO Q8H PRN PRN PRN Reason: PAIN Amlodipine Besylate (Norvasc) 10 mg PO DAILY [facility]NA Last Admin: 08/04/18 10:52 Dose: 10 mg Atorvastatin Calcium (Lipitor) 20 mg PO QHS [facility] Last Admin: 08/03/18 21:52 Dose: 20 mg Bisacodyl (Dulcolax) 10 mg RECTAL .PRN X 1 PRN PRN Reason: Constipation Bisacodyl (Dulcolax) 10 mg RECTAL .PRN X 1 PRN PRN Reason: Constipation Buspirone HCl (Buspar) 5 mg PO TID [facility] Last Admin: 08/04/18 06:39 Dose: 5 mg Calamine/Phenol (Calmoseptine Ointment) 1 applic TOPICAL BID [facility]; Protocol Last Admin: 08/04/18 10:54 Dose: 1 applicatio Calcium Carbonate (Os-Chinedu 500) 500 mg PO BID [facility] Last Admin: 08/04/18 10:53 Dose: 500 mg Carvedilol (Coreg) 25 mg PO BID [facility] Last Admin: 08/04/18 10:54 Dose: 25 mg Enoxaparin Sodium (Lovenox) 30 mg SC DAILY [facility] Last Admin: 08/04/18 10:54 Dose: 30 mg Ferrous Sulfate (Ferrous Sulfate) 325 mg PO TIDCM [facility] Last Admin: 08/04/18 12:34 Dose: 325 mg Furosemide (Lasix) 40 mg PO BID@1000,1800 [facility] Last Admin: 08/04/18 10:52 Dose: 40 mg Gabapentin (Neurontin) 300 mg PO QHS [facility] Last Admin: 08/03/18 21:52 Dose: 300 mg Hydralazine HCl (Apresoline) 75 mg PO 4X/DAY [facility] Last Admin: 08/04/18 10:51 Dose: 75 mg Hydrocortisone Acetate (Anusol Hc) 25 mg RECTAL BID PRN PRN PRN Reason: Hemorrhoids Last Admin: 07/30/18 13:54 Dose: 25 mg Insulin Glargine (Lantus (Bkc)) 37 units SC BREAKFAST [facility] Last Admin: 08/04/18 10:55 Dose: 37 u Insulin Human Lispro (Humalog Kwikpen (Bkc)) 5 unit SC BID@1200,1700 [facility] Last Admin: 08/04/18 12:34 Dose: 5 u Insulin Human Lispro (Humalog Kwikpen (Bkc)) 4 unit SC DAILY@0800 [facility] Last Admin: 08/04/18 10:50 Dose: 4 u Magnesium Hydroxide (Milk Of Magnesia) 30 ml PO .PRN X 1 PRN PRN Reason: Constipation Montelukast Sodium (Singulair) 10 mg PO QHS [facility] Last Admin: 08/03/18 21:53 Dose: 10 mg Multivitamins/Minerals (Multivitamin With Minerals) 1 tablet PO DAILY@0800 [facility] Last Admin: 08/04/18 10:51 Dose: 1 tablet Ondansetron HCl (Zofran Odt) 4 mg PO Q8H PRN PRN PRN Reason: NAUSEA Pantoprazole Sodium (Protonix) 20 mg PO DAILY [facility] Last Admin: 08/04/18 10:53 Dose: 20 mg Prednisone () 40 mg PO DAILY@0800 [facility] Last Admin: 08/04/18 10:51 Dose: 40 mg Senna/Docusate Sodium (Senokot-S, Leti-Colace) 2 tablet PO BID [facility] Last Admin: 08/04/18 10:53 Dose: 2 tablet Sertraline HCl (Zoloft) 100 mg PO DAILY [facility] Last Admin: 08/04/18 10:53 Dose: 100 mg Medical Necessity - Tobacco Use Smoking Status: Never smoker Tobacco Use: Non-smoker Assessment/Plan All Active Problems Debility (Acute) 1. chronic inflammatory demyelinating polyneuropathy * s/p 5 rounds of plasmapheresis at [facility] * on PO prednisone * neurology on board * 2. HF of unknown etiology * BNp was 381, and she was complaining of SOB. Lasix increased to 40mg bid. * will get 2D echo to assess heart function * Cumulative I's and O's show positive balance of 1.39 L with total output of 2.45 L. Yesterday urine output was 1 L. * will monitor input output * 3. ?right lung nodule * CXR showed questionable faint 1.8cm nodule in right midlung. Follow up recommended * to get CT chest on outpatient basis to further delineate right lung nodule. * 3. CKD 3: stable. 4. Type 2 diabetes mellitus: * on lantus 37IU qhs and ISS. * Accuchecks ACHS. ISS * sugars poorly controlled. Will increase sliding scale to med-high dose ISS 5. HTN: * fairly controlled * On amlodipine 10 mg daily, carvedilol 25 mg daily, hydralazine 50 mg 3 times daily and losartan 50 mg daily. * 6. Ecchymosis of lower abdomen: Likely due to Lovenox injections. Stable and asymptomatic. We will continue to monitor. 7. Bilateral lower extremity edema:on lasix DVT prophylaxis: lovenox Code Visit Inpatient E&M: 97522 Subs Hosp L2
[2018-08-04 17:41] LABS: Bedside Glucose 251 mg/dL (70-110)
[2018-08-04 21:26] LABS: Bedside Glucose 344 mg/dL (70-110)
[2018-08-04] MEDS: Atorvastatin Calcium 20 MG Tablet PO (22:05)
[2018-08-04] MEDS: Gabapentin 300 MG Capsule PO (22:05)
[2018-08-04] MEDS: Montelukast 10 MG Tablet PO (22:07)
[2018-08-05] VITALS (7 sets, daily range): BP systolic 137–158; BP diastolic 65–80; PULSE 69–70; RESP 16–18; TEMP 36.6–36.8; O2SAT 95–99
[2018-08-05] MEDS: busPIRone 5 MG Tablet PO ×3 (05:11→22:43)
[2018-08-05 07:06] LABS: Bedside Glucose 225 mg/dL (70-110)
[2018-08-05] MEDS: Insulin Lispro 100 UNIT/ML INSULN.PEN SC ×3 (08:05→17:23)
[2018-08-05] MEDS: Ferrous Sulfate 325 MG Tablet PO ×3 (08:05→17:23)
[2018-08-05] MEDS: Multivitamins,Ther W-Minerals Tablet 1 TABLET PO (08:06)
[2018-08-05] MEDS: hydrALAZINE 50 MG Tablet 75 MG PO ×4 (08:06→22:43)
[2018-08-05] MEDS: predniSONE 20 MG Tablet 40 MG PO (08:06)
[2018-08-05] MEDS: amLODIPine 10 MG Tablet PO (08:08)
[2018-08-05] MEDS: Calcium (Elemental) 500 MG Tablet PO ×2 (08:08→22:47)
[2018-08-05] MEDS: Pantoprazole Sodium 20 MG Tablet PO (08:09)
[2018-08-05] MEDS: Furosemide 40 MG Tablet PO ×2 (08:09→17:23)
[2018-08-05] MEDS: Menthol/Lanolin/Calamine/Znox 113 GM Tube 1 APPLIC TOPICAL ×2 (08:10→22:44)
[2018-08-05] MEDS: Carvedilol 25 MG Tablet PO ×2 (08:10→22:45)
[2018-08-05] MEDS: Enoxaparin 30 MG/0.3 ML Syringe SC (08:12)
[2018-08-05] MEDS: Sertraline 100 MG Tablet PO (08:16)
[2018-08-05 12:56] LABS: Bedside Glucose 246 mg/dL (70-110)
[2018-08-05] MEDS: Insulin Lispro 100 UNIT/ML INSULN.PEN 10 UNIT SC (17:56)
[2018-08-05] MEDS: Atorvastatin Calcium 20 MG Tablet PO (22:43)
[2018-08-05] MEDS: Gabapentin 300 MG Capsule PO (22:43)
[2018-08-05] MEDS: Montelukast 10 MG Tablet PO (22:47)
[2018-08-06 00:21] LABS: Bedside Glucose 348 mg/dL (70-110)
[2018-08-06] MEDS: busPIRone 5 MG Tablet PO ×3 (06:20→21:42)
[2018-08-06 06:46] LABS: Bedside Glucose 205 mg/dL (70-110)
[2018-08-06] MEDS: Multivitamins,Ther W-Minerals Tablet 1 TABLET PO (07:38)
[2018-08-06] MEDS: Ferrous Sulfate 325 MG Tablet PO ×3 (07:38→18:30)
[2018-08-06] MEDS: predniSONE 20 MG Tablet 40 MG PO (07:38)
[2018-08-06] MEDS: Calcium (Elemental) 500 MG Tablet PO ×2 (07:39→21:42)
[2018-08-06] MEDS: Pantoprazole Sodium 20 MG Tablet PO (07:39)
[2018-08-06] MEDS: Sertraline 100 MG Tablet PO (07:39)
[2018-08-06] MEDS: amLODIPine 10 MG Tablet PO (07:39)
[2018-08-06] MEDS: Insulin Lispro 100 UNIT/ML INSULN.PEN SC ×2 (07:40→13:11)
[2018-08-06] MEDS: Enoxaparin 30 MG/0.3 ML Syringe SC (07:43)
[2018-08-06] MEDS: Carvedilol 25 MG Tablet PO ×2 (07:43→21:42)
[2018-08-06 07:44] VITALS: PULSE 77
[2018-08-06] MEDS: hydrALAZINE 50 MG Tablet 75 MG PO ×4 (07:44→21:42)
[2018-08-06] MEDS: Senna/Docusate Sodium 1 Tablet 2 TABLET PO ×2 (07:45→21:43)
[2018-08-06] MEDS: Menthol/Lanolin/Calamine/Znox 113 GM Tube 1 APPLIC TOPICAL ×2 (07:49→21:43)
--- NOTE | 2018-08-06 08:00 | ECHOD_ITS ---
Reason For Study: CHF Procedure This was a 2D Doppler, Color Flow transthoracic echocardiogram. The exam was of adequate technical quality. Exam performed portable in patient room. Left Ventricle Normal LV size. Moderate concentric left ventricular hypertrophy. Left ventricular systolic function is normal. The estimated ejection fraction is 65 %. There is evidence of diastolic dysfunction. No regional wall motion abnormalities noted. Right Ventricle Normal RV size. Normal systolic function. Atria The left atrium is mildly enlarged. Normal right atrium. No doppler evidence for ASD. Mitral Valve There is mild mitral annular calcification. Mild diffuse mitral valve thickening. Mild mitral valve stenosis. Moderate (2+) mitral valve insufficiency. Tricuspid Valve Normal tricuspid valve. Mild tricuspid valve insufficiency. Right ventricular systolic pressure estimated to be 49 mmHg. Aortic Valve Trisinus/trileaflet aortic valve. Normal aortic valve. Pulmonic Valve The pulmonic valve is not well visualized. Great Vessels Normal sized aortic root. Pericardium/Pleural No pericardial effusion. MMode/2D Measurements & Calculations LVIDd: 4.3 cm IVSd: 1.6 cm LVOT diam: 2.0 cm LVIDs: 2.7 cm LVPWd: 1.6 cm LVOT area: 3.1 cm2 RVDd: 4.0 cm FS: 36.9 % Ao root diam: 3.4 cm LAV(MOD-bp): 76.5 ml LVAd ap4: 40.3 cm2 LAV(MOD-bp) Indexed: 37.2 ml/m2 EDV(MOD-sp4): 149.0 ml LAV(MOD-sp2): 78.8 ml EDV(sp4-el): 163.5 ml LAV(MOD-sp4): 73.0 ml LVAs ap4: 19.8 cm2 ESV(MOD-sp4): 51.3 ml ESV(sp4-el): 52.0 ml EF(MOD-sp4): 65.6 % EF(sp4-el): 68.2 % SV(MOD-sp4): 97.8 ml SV(sp4-el): 111.5 ml LA A4 area: 23.9 cm2 LA dimension(2D): 4.4 cm RA A4 area: 15.0 cm2 Time Measurements MV dec time: 0.29 sec Doppler Measurements & Calculations MV E max santo: 169.6 cm/sec Lat Peak E' Santo: 7.6 cm/sec Med Peak E' Santo: 6.2 cm/sec MV A max santo: 145.1 cm/sec E/E' lat: 22.5 E/E' med: 27.4 MV E/A: 1.2 MV V2 max: 158.9 cm/sec Ao V2 max: 157.9 cm/sec LV V1 max: 132.6 cm/sec MV max P.1 mmHg Ao max P.0 mmHg LV V1 max P.0 mmHg MV V2 mean: 104.5 cm/sec Ao V2 mean: 110.7 cm/sec LV V1 mean P.6 mmHg MV mean P.8 mmHg Ao mean P.4 mmHg LV V1 mean: 88.0 cm/sec MV V2 VTI: 54.7 cm Ao V2 VTI: 36.5 cm LV V1 VTI: 33.9 cm MVA(VTI): 1.9 cm2 JOHN(I,D): 2.9 cm2 JOHN(V,D): 2.6 cm2 SV(LVOT): 104.5 ml TR max santo: 327.7 cm/sec MV P1/2t-pr_phl: 93.0 msec TR max P.8 mmHg Interpretation Summary Left ventricular systolic function is normal. The estimated ejection fraction is 65 %. Moderate concentric left ventricular hypertrophy. The left atrium is mildly enlarged. There is mild mitral annular calcification. Mild diffuse mitral valve thickening. Mild mitral valve stenosis. Moderate (2+) mitral valve insufficiency. Mild tricuspid valve insufficiency. Right ventricular systolic pressure estimated to be 49 mmHg. There is evidence of diastolic dysfunction. Ordering Physician: Marielena Gutierrez Referring Physician: ISABELL PATTERSON Performed By: Valeria Segundo, DAISY, RVT
[2018-08-06 08:17] VITALS: BP 143/72; PULSE 70; RESP 18; TEMP 36.6; O2SAT 97
[2018-08-06] MEDS: Furosemide 40 MG Tablet PO ×2 (09:04→18:30)
[2018-08-06 12:11] LABS: Bedside Glucose 206 mg/dL (70-110)
[2018-08-06 13:10] VITALS: PULSE 80
--- NOTE | 2018-08-06 14:23 | PCM.PN.HOSP ---
Subjective: Patient seen and examined. She is concerned about the lung nodule that was found on the chest x-ray and would like to have it further delineated by CT chest.. Shortness of breath has resolved and she feels well. She still awaiting the 2D echo. Review of systems otherwise negative. Vitals/I&O's: Vital Signs Temp Pulse Resp BP Pulse Ox 97.9 F 80 18 143/72 H 97 08/06/18 08:17 08/06/18 13:10 08/06/18 08:17 08/06/18 08:17 08/06/18 08:17 Oxygen Delivery Method Room Air Weight: 245 lb 9.519 oz Body Mass Index (BMI) 47.2 Intake and Output for Last 24 Hours 08/04/18 08/05/18 08/06/18 23:59 23:59 23:59 Intake Total 1340 / 1340 1340 / 1340 60 / 60 Output Total 1150 / 1150 1150 / 1150 750 / 750 Balance 190 / 190 190 / 190 -690 / -690 General: Alert, Oriented x3, Cooperative, No apparent distress HEENT: Atraumatic, PERRLA, EOMI, Normocephalic Oral: Moist Mucosa Neck: Supple, No JVD, Negative Carotid Bruits Lungs: few crackles in lung bases bilaterally Cardiovascular: Regular rate, Regular Rhythm, Normal S1, Normal S2, No murmurs Abdomen: Bowel Sounds Present, Soft, Non Tender, Non-Distended, No Hepato-splenomegaly Extremities: No clubbing, No cyanosis, No edema, Capillary Refill Less than 3 Seconds Musculoskeletal: - - both LEs wrapped in ARISTIDES bandage Lymphatic: No Cervical, Supraclavicular, or Inguinal Adenopathy Neurological: Cranial nerves II-XII grossly intact Psych/Mental Status: Normal Affect, Appropriate, Alert and oriented to time, place, person, mood and affect Laboratory Results 08/05/18 22:16: POC Glucose 348 H 08/06/18 06:34: POC Glucose 205 H 08/06/18 11:39: POC Glucose 206 H Current Medications Acetaminophen (Tylenol) 650 mg PO Q8H PRN PRN PRN Reason: PAIN Amlodipine Besylate (Norvasc) 10 mg PO DAILY [facility] Last Admin: 08/06/18 07:39 Dose: 10 mg Atorvastatin Calcium (Lipitor) 20 mg PO QHS [facility] Last Admin: 08/05/18 22:43 Dose: 20 mg Bisacodyl (Dulcolax) 10 mg RECTAL .PRN X 1 PRN PRN Reason: Constipation Bisacodyl (Dulcolax) 10 mg RECTAL .PRN X 1 PRN PRN Reason: Constipation Buspirone HCl (Buspar) 5 mg PO TID [facility] Last Admin: 08/06/18 13:10 Dose: 5 mg Calamine/Phenol (Calmoseptine Ointment) 1 applic TOPICAL BID [facility]; Protocol Last Admin: 08/06/18 07:49 Dose: 1 applicatio Calcium Carbonate (Os-Chinedu 500) 500 mg PO BID [facility] Last Admin: 08/06/18 07:39 Dose: 500 mg Carvedilol (Coreg) 25 mg PO BID [facility] Last Admin: 08/06/18 07:43 Dose: 25 mg Enoxaparin Sodium (Lovenox) 30 mg SC DAILY [facility] Last Admin: 08/06/18 07:43 Dose: 30 mg Ferrous Sulfate (Ferrous Sulfate) 325 mg PO TIDCM [facility] Last Admin: 08/06/18 13:10 Dose: 325 mg Furosemide (Lasix) 40 mg PO BID@1000,1800 [facility] Last Admin: 08/06/18 09:04 Dose: 40 mg Gabapentin (Neurontin) 300 mg PO QHS [facility] Last Admin: 08/05/18 22:43 Dose: 300 mg Hydralazine HCl (Apresoline) 75 mg PO 4X/DAY [facility] Last Admin: 08/06/18 13:10 Dose: 75 mg Hydrocortisone Acetate (Anusol Hc) 25 mg RECTAL BID PRN PRN PRN Reason: Hemorrhoids Last Admin: 07/30/18 13:54 Dose: 25 mg Insulin Glargine (Lantus (Bkc)) 37 units SC BREAKFAST [facility] Last Admin: 08/06/18 09:04 Dose: 37 u Insulin Human Lispro (Humalog Kwikpen (Bkc)) 5 unit SC BID@1200,1700 [facility] Last Admin: 08/06/18 13:11 Dose: 5 u Insulin Human Lispro (Humalog Kwikpen (Bkc)) 4 unit SC DAILY@0800 [facility] Last Admin: 08/06/18 07:40 Dose: 4 u Magnesium Hydroxide (Milk Of Magnesia) 30 ml PO .PRN X 1 PRN PRN Reason: Constipation Montelukast Sodium (Singulair) 10 mg PO QHS [facility] Last Admin: 08/05/18 22:47 Dose: 10 mg Multivitamins/Minerals (Multivitamin With Minerals) 1 tablet PO DAILY@0800 [facility] Last Admin: 08/06/18 07:38 Dose: 1 tablet Ondansetron HCl (Zofran Odt) 4 mg PO Q8H PRN PRN PRN Reason: NAUSEA Pantoprazole Sodium (Protonix) 20 mg PO DAILY [facility] Last Admin: 08/06/18 07:39 Dose: 20 mg Prednisone () 40 mg PO DAILY@0800 [facility] Last Admin: 08/06/18 07:38 Dose: 40 mg Senna/Docusate Sodium (Senokot-S, Leti-Colace) 2 tablet PO BID [facility] Last Admin: 08/06/18 07:45 Dose: 1 tablet Sertraline HCl (Zoloft) 100 mg PO DAILY [facility] Last Admin: 08/06/18 07:39 Dose: 100 mg Medical Necessity - Tobacco Use Smoking Status: Never smoker Tobacco Use: Non-smoker Assessment/Plan All Active Problems Debility (Acute) 1. 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 HF of unknown etiology BNp was 381. on lasix 40mg bid. 2D echo pending. will monitor input output 3. ?right lung nodule CXR showed questionable faint 1.8cm nodule in right midlung. Follow up recommended patient very worried about the lung nodule, and would appreciate having it further delineated. will therefore get CT chest without contrast for further evaluation. to get CT chest on outpatient basis to further delineate right lung nodule. 3. CKD 3: stable. 4. Type 2 diabetes mellitus: on lantus 37IU qhs and ISS. blood sugars poorly controlled will incresase mealtime insulin coverage to SC lispro 10IU tid. continue high dose ISS accuchecks ACHS 5. HTN: fairly controlled On amlodipine 10 mg daily, carvedilol 25 mg daily, hydralazine 50 mg 3 times daily and losartan 50 mg daily. 6. Ecchymosis of lower abdomen: Likely due to Lovenox injections. Stable and asymptomatic. We will continue to monitor. 7. Bilateral lower extremity edema:on lasix DVT prophylaxis: lovenox Code Visit Inpatient E&M: 75262 Subs Hosp L2
--- NOTE | 2018-08-06 14:26 | PN_ITS ---
Subjective: Patient seen and examined. She is concerned about the lung nodule that was found on the chest x-ray and would like to have it further delineated by CT chest.. Shortness of breath has resolved and she feels well. She still awaiting the 2D echo. Review of systems otherwise negative. Vitals/I&O's: Vital Signs Temp Pulse Resp BP Pulse Ox 97.9 F 80 18 143/72 H 97 08/06/18 08:17 08/06/18 13:10 08/06/18 08:17 08/06/18 08:17 08/06/18 08:17 Oxygen Delivery Method Room Air Weight: 245 lb 9.519 oz Body Mass Index (BMI) 47.2 Intake and Output for Last 24 Hours 08/04/18 08/05/18 08/06/18 23:59 23:59 23:59 Intake Total 1340 / 1340 1340 / 1340 60 / 60 Output Total 1150 / 1150 1150 / 1150 750 / 750 Balance 190 / 190 190 / 190 -690 / -690 General: Alert, Oriented x3, Cooperative, No apparent distress HEENT: Atraumatic, PERRLA, EOMI, Normocephalic Oral: Moist Mucosa Neck: Supple, No JVD, Negative Carotid Bruits Lungs: few crackles in lung bases bilaterally Cardiovascular: Regular rate, Regular Rhythm, Normal S1, Normal S2, No murmurs Abdomen: Bowel Sounds Present, Soft, Non Tender, Non-Distended, No Hepato- splenomegaly Extremities: No clubbing, No cyanosis, No edema, Capillary Refill Less than 3 Seconds Musculoskeletal: - - both LEs wrapped in ARISTIDES bandage Lymphatic: No Cervical, Supraclavicular, or Inguinal Adenopathy Neurological: Cranial nerves II-XII grossly intact Psych/Mental Status: Normal Affect, Appropriate, Alert and oriented to time, place, person, mood and affect Laboratory Results 08/05/18 22:16: POC Glucose 348 H 08/06/18 06:34: POC Glucose 205 H 08/06/18 11:39: POC Glucose 206 H Current Medications Acetaminophen (Tylenol) 650 mg PO Q8H PRN PRN PRN Reason: PAIN Amlodipine Besylate (Norvasc) 10 mg PO DAILY [facility] Last Admin: 08/06/18 07:39 Dose: 10 mg Atorvastatin Calcium (Lipitor) 20 mg PO QHS [facility] Last Admin: 08/05/18 22:43 Dose: 20 mg Bisacodyl (Dulcolax) 10 mg RECTAL .PRN X 1 PRN PRN Reason: Constipation Bisacodyl (Dulcolax) 10 mg RECTAL .PRN X 1 PRN PRN Reason: Constipation Buspirone HCl (Buspar) 5 mg PO TID [facility] Last Admin: 08/06/18 13:10 Dose: 5 mg Calamine/Phenol (Calmoseptine Ointment) 1 applic TOPICAL BID [facility]; Protocol Last Admin: 08/06/18 07:49 Dose: 1 applicatio Calcium Carbonate (Os-Chinedu 500) 500 mg PO BID [facility] Last Admin: 08/06/18 07:39 Dose: 500 mg Carvedilol (Coreg) 25 mg PO BID [facility] Last Admin: 08/06/18 07:43 Dose: 25 mg Enoxaparin Sodium (Lovenox) 30 mg SC DAILY [facility] Last Admin: 08/06/18 07:43 Dose: 30 mg Ferrous Sulfate (Ferrous Sulfate) 325 mg PO TIDCM [facility] Last Admin: 08/06/18 13:10 Dose: 325 mg Furosemide (Lasix) 40 mg PO BID@1000,1800 [facility] Last Admin: 08/06/18 09:04 Dose: 40 mg Gabapentin (Neurontin) 300 mg PO QHS [facility] Last Admin: 08/05/18 22:43 Dose: 300 mg Hydralazine HCl (Apresoline) 75 mg PO 4X/DAY [facility] Last Admin: 08/06/18 13:10 Dose: 75 mg Hydrocortisone Acetate (Anusol Hc) 25 mg RECTAL BID PRN PRN PRN Reason: Hemorrhoids Last Admin: 07/30/18 13:54 Dose: 25 mg Insulin Glargine (Lantus (Bkc)) 37 units SC BREAKFAST [facility] Last Admin: 08/06/18 09:04 Dose: 37 u Insulin Human Lispro (Humalog Kwikpen (Bkc)) 5 unit SC BID@1200,1700 [facility] Last Admin: 08/06/18 13:11 Dose: 5 u Insulin Human Lispro (Humalog Kwikpen (Bkc)) 4 unit SC DAILY@0800 [facility] Last Admin: 08/06/18 07:40 Dose: 4 u Magnesium Hydroxide (Milk Of Magnesia) 30 ml PO .PRN X 1 PRN PRN Reason: Constipation Montelukast Sodium (Singulair) 10 mg PO QHS [facility] Last Admin: 08/05/18 22:47 Dose: 10 mg Multivitamins/Minerals (Multivitamin With Minerals) 1 tablet PO DAILY@0800 [facility] Last Admin: 08/06/18 07:38 Dose: 1 tablet Ondansetron HCl (Zofran Odt) 4 mg PO Q8H PRN PRN PRN Reason: NAUSEA Pantoprazole Sodium (Protonix) 20 mg PO DAILY [facility] Last Admin: 08/06/18 07:39 Dose: 20 mg Prednisone () 40 mg PO DAILY@0800 [facility] Last Admin: 08/06/18 07:38 Dose: 40 mg Senna/Docusate Sodium (Senokot-S, Leti-Colace) 2 tablet PO BID [facility] Last Admin: 08/06/18 07:45 Dose: 1 tablet Sertraline HCl (Zoloft) 100 mg PO DAILY [facility] Last Admin: 08/06/18 07:39 Dose: 100 mg Medical Necessity - Tobacco Use Smoking Status: Never smoker Tobacco Use: Non-smoker Assessment/Plan All Active Problems Debility (Acute) 1. chronic inflammatory demyelinating polyneuropathy * s/p 5 rounds of plasmapheresis at [facility] * on PO prednisone * neurology on board * 2. HF of unknown etiology * BNp was 381. on lasix 40mg bid. * 2D echo pending. * will monitor input output * 3. ?right lung nodule * CXR showed questionable faint 1.8cm nodule in right midlung. Follow up recommended * patient very worried about the lung nodule, and would appreciate having it further delineated. * will therefore get CT chest without contrast for further evaluation. * to get CT chest on outpatient basis to further delineate right lung nodule. * 3. CKD 3: stable. 4. Type 2 diabetes mellitus: * on lantus 37IU qhs and ISS. * blood sugars poorly controlled * will incresase mealtime insulin coverage to SC lispro 10IU tid. * continue high dose ISS * accuchecks ACHS * 5. HTN: * fairly controlled * On amlodipine 10 mg daily, carvedilol 25 mg daily, hydralazine 50 mg 3 times daily and losartan 50 mg daily. * 6. Ecchymosis of lower abdomen: Likely due to Lovenox injections. Stable and asymptomatic. We will continue to monitor. 7. Bilateral lower extremity edema:on lasix DVT prophylaxis: lovenox Code Visit Inpatient E&M: 40253 Subs Hosp L2
--- NOTE | 2018-08-06 14:56 | CT_ITS ---
STUDY: CT CHEST WITHOUT CONTRAST REASON FOR EXAM: Female, 58 years old. Right lung nodule. RADIATION DOSAGE (If Supplied By Facility): CTDIvol = ( 20.72 ) mGy, DLP = ( 607.47 ) mGycm TECHNIQUE: Transaxial imaging was performed without the administration of intravenous contrast material. Multiplanar coronal and sagittal images were reformatted. Individualized dose optimization techniques were used for this CT. COMPARISON: Chest, August 03, 2018. FINDINGS: Lungs well-expanded. There is a questionable vague groundglass density measuring 6 mm in the most superior aspect of the segment right lower lobe (image 81, series 4. There is no evidence of a solid mass of the size described on the plain film. No other masses or infiltrates are noted. There is no demonstrated pleural abnormality. Normal heart. There is a small pericardial effusion. There are multiple small lymph nodes within the mediastinum, which are normal in size and morphology most compatible with reactive lymph hyperplasia. Normal hilar regions. Normal unenhanced pulmonary arteries. Is minimal atherosclerotic changes of the thoracic aorta without aneurysm. There are multi-level degenerative changes of the thoracic spine. There is no demonstrated abnormality of the visualized upper abdomen. CT/Chest without Contrast IMPRESSION: 1. No evidence of a 1.7 cm nodule in the right mid lung. There is a vague groundglass density in the superior aspect of the right lower lobe. There is productivity at the costocartilaginous junction on the fourth rib which is thought to correlate with the density seen on the chest film. 2. Small pericardial effusion. 3. Mild degenerative changes of the thoracic spine Electronically Signed: Gaudencio Maxwell DO at 18:19 EST Tel [phone], Service support ,
[2018-08-06 17:26] LABS: Bedside Glucose 265 mg/dL (70-110)
[2018-08-06] MEDS: Insulin Lispro 100 UNIT/ML INSULN.PEN 10 UNIT SC (18:29)
[2018-08-06 18:30] VITALS: PULSE 67
[2018-08-06 21:30] VITALS: BP 139/71; PULSE 67; RESP 18; TEMP 36.6; O2SAT 18; O2SAT 96
[2018-08-06 21:42] VITALS: BP 139/71; PULSE 67
[2018-08-06] MEDS: Montelukast 10 MG Tablet PO (21:42)
[2018-08-06] MEDS: Atorvastatin Calcium 20 MG Tablet PO (21:42)
[2018-08-06] MEDS: Gabapentin 300 MG Capsule PO (21:42)
[2018-08-06 22:21] LABS: Bedside Glucose 350 mg/dL (70-110)
[2018-08-07] VITALS (8 sets, daily range): BP systolic 132–159; BP diastolic 60–68; PULSE 61–73; RESP 16–18; TEMP 36.8–36.9; O2SAT 94–95
--- NOTE | 2018-08-07 01:49 | NURSING ---
REVIEWED AND AGREE WITH NON MORSE INTERCEPT TECHNICIAN'S FIM AND HANDOFF CHARTING.
[2018-08-07] MEDS: Enoxaparin 30 MG/0.3 ML Syringe SC (05:36)
[2018-08-07] MEDS: busPIRone 5 MG Tablet PO ×3 (05:36→20:06)
[2018-08-07 05:46] LABS: Anion Gap 11 (5-15); BUN 118 mg/dL (7-18); BUN/Creat Ratio 42.4 RATIO (10-20); Calcium,Total 8.4 mg/dL (8.5-10.1); Chloride 102 mmol/L (98-107); Creatinine, Serum 2.78 mg/dL (0.55-1.02); EST Glomerular Filtration Rate 19 mL/min (>60); Est Glom Filt Rate - Afr Amer 23 mL/min (>60); Estimated Creatinine Clearance 17.05 ml/min; Glucose 305 mg/dL (74-106); Potassium 3.7 mmol/L (3.5-5.1); Sodium Level 139 mmol/L (136-145)
--- NOTE | 2018-08-07 05:57 | NURSING ---
LAB CALLS ALERT VALUE ON PT'S BUN WHICH IS [address] CEDRIC NUNES NOTIFIED. INFORMED THAT PT'S LUNG WERE CLEAR THIS SHIFT AND PULSE OX 94% ON RA. INFORMED THAT PT'S LEG EDEMA SEEMED WORSE THIS SHIFT. ORDERS GIVEN TO HOLD AM LASIX.
[2018-08-07 07:11] LABS: Bedside Glucose 401 mg/dL (70-110)
[2018-08-07 07:11] LABS: Bedside Glucose 390 mg/dL (70-110)
[2018-08-07] MEDS: Insulin Lispro 100 UNIT/ML INSULN.PEN 10 UNIT SC ×3 (08:07→17:33)
[2018-08-07] MEDS: Menthol/Lanolin/Calamine/Znox 113 GM Tube 1 APPLIC TOPICAL ×2 (08:12→20:07)
[2018-08-07 08:16] LABS: Bedside Glucose 265 mg/dL (70-110)
[2018-08-07] MEDS: Sertraline 100 MG Tablet PO (08:21)
[2018-08-07] MEDS: Senna/Docusate Sodium 1 Tablet 2 TABLET PO (08:21)
[2018-08-07] MEDS: amLODIPine 10 MG Tablet PO (08:22)
[2018-08-07] MEDS: Calcium (Elemental) 500 MG Tablet PO ×2 (08:22→20:05)
[2018-08-07] MEDS: predniSONE 20 MG Tablet 40 MG PO (08:22)
[2018-08-07] MEDS: hydrALAZINE 50 MG Tablet 75 MG PO ×4 (08:22→20:06)
[2018-08-07] MEDS: Pantoprazole Sodium 20 MG Tablet PO (08:22)
[2018-08-07] MEDS: Multivitamins,Ther W-Minerals Tablet 1 TABLET PO (08:23)
[2018-08-07] MEDS: Ferrous Sulfate 325 MG Tablet PO ×3 (08:23→17:35)
[2018-08-07] MEDS: Carvedilol 25 MG Tablet PO ×2 (08:23→20:07)
--- NOTE | 2018-08-07 09:00 | NURSING ---
This nurse updated Dr. Martinez regarding patients labs today, patient denies sob, edema is not worse; 2+ pitting to ble and austen hips. New order received and patient aware. ECHO completed this morning.
[2018-08-07] MEDS: Furosemide 40 MG Tablet PO ×2 (10:52→17:35)
[2018-08-07 11:51] LABS: Bedside Glucose 231 mg/dL (70-110)
--- NOTE | 2018-08-07 12:41 | PCM.PN.NEU ---
Subjective: No new complaints. Denies any pain at this point. She feels that her strength is stable and possibly improved in her knee flexors and extensors. - Physical Exam General: Alert, Oriented x3, Cooperative, No apparent distress Neurological: Cranial nerves II-XII grossly intact, - - Is stable in her lower extremities with hip flexors on the left 1/5 and on the right 2/5. Left dorsiflexors are 2/5 and left plantar flexors are 5/5. Right dorsiflexors are 0/5 Vital Signs Temp Pulse Resp BP Pulse Ox 36.9 C 61 16 141/68 H 94 08/07/18 08:33 08/07/18 08:33 08/07/18 08:33 08/07/18 08:33 08/07/18 08:33 Oxygen Flow Rate (L/min) 96 Oxygen Delivery Method Room Air Weight: 110.7 kg Body Mass Index (BMI) 47.2 Intake and Output for Last 24 Hours 08/05/18 08/06/18 08/07/18 23:59 23:59 23:59 Intake Total 1340 / 1340 760 / 760 Output Total 1150 / 1150 1700 / 1700 800 / 800 Balance 190 / 190 -940 / -940 -800 / -800 Laboratory Tests Past 24 Hrs 08/07/18 05:00 Sodium 139 Potassium 3.7 Chloride 102 Carbon Dioxide 26.0 Anion Gap 11 BUN 118 H* Creatinine 2.78 H Estim Creat Clear Calc 17.05 Est GFR (MDRD) Af Amer 23 L Est GFR (MDRD) Non-Af 19 L BUN/Creatinine Ratio 42.4 H Glucose 305 H Calcium 8.4 L POC Glucose 08/07/18 08/07/18 08/06/18 11:47 08:05 22:14 POC Glucose 231 H 265 H 350 H 08/06/18 08/05/18 08/05/18 17:16 17:07 17:04 POC Glucose 265 H 401 H 390 H Medical Necessity - Tobacco Use Smoking Status: Never smoker Tobacco Use: Non-smoker Assessment/Plan All Active Problems Debility (Acute) Debility status post prolonged hospitalization for acute/subacute neuropathy of unknown cause. Workup was previously negative for GBS including lumbar puncture. She has received a course of IVIG as well as now recently plasmapheresis and is on steroids. Goal of rehab is adventism of prior level of functional independence. Plan: Physical therapy for gait and balance. 08/02: Stable/improved Occupational Therapy for ADLs. 08/02: Stable/improved PRN analgesics 07/31: Controlled. 08/02: Stable Bowel protocol. 08/02: No issues DVT prophylaxis Currently on steroids, will need to consider further immune suppression 07/31: Stable. 08/07: Steroids decreased to 40 mg about 2 days ago, will continue this for another week or so and consider tapering further.
[2018-08-07] MEDS: 0.9% NaCl Peripheral Flush Adult/Peds IV (14:44)
[2018-08-07 18:06] LABS: Bedside Glucose 245 mg/dL (70-110)
[2018-08-07] MEDS: Gabapentin 300 MG Capsule PO (20:06)
[2018-08-07] MEDS: Montelukast 10 MG Tablet PO (20:06)
[2018-08-07] MEDS: Atorvastatin Calcium 20 MG Tablet PO (20:09)
[2018-08-07 22:01] LABS: Bedside Glucose 292 mg/dL (70-110)
[2018-08-08] VITALS (7 sets, daily range): BP systolic 134–149; BP diastolic 68–84; PULSE 65–78; RESP 16–18; TEMP 36.5–36.7; O2SAT 93–98
[2018-08-08] MEDS: 0.9% NaCl Peripheral Flush Adult/Peds IV ×2 (00:10→19:40)
--- NOTE | 2018-08-08 01:30 | NURSING ---
REVIEWED AND AGREE WITH MEDICAL CASH POSTER'S FIM AND HANDOFF CHARTING.
[2018-08-08] MEDS: busPIRone 5 MG Tablet PO ×3 (05:55→22:13)
[2018-08-08] MEDS: Enoxaparin 30 MG/0.3 ML Syringe SC (05:55)
[2018-08-08 06:06] LABS: Anion Gap 13 (5-15); BUN 120 mg/dL (7-18); BUN/Creat Ratio 45.1 RATIO (10-20); Calcium,Total 8.3 mg/dL (8.5-10.1); Chloride 103 mmol/L (98-107); Creatinine, Serum 2.66 mg/dL (0.55-1.02); EST Glomerular Filtration Rate 20 mL/min (>60); Est Glom Filt Rate - Afr Amer 24 mL/min (>60); Estimated Creatinine Clearance 17.82 ml/min; Glucose 247 mg/dL (74-106); Potassium 3.7 mmol/L (3.5-5.1); Sodium Level 140 mmol/L (136-145)
[2018-08-08 07:51] LABS: Bedside Glucose 196 mg/dL (70-110)
[2018-08-08] MEDS: predniSONE 20 MG Tablet 40 MG PO (07:52)
[2018-08-08] MEDS: Furosemide 40 MG Tablet PO ×2 (07:52→18:21)
[2018-08-08] MEDS: Pantoprazole Sodium 20 MG Tablet PO (07:52)
[2018-08-08] MEDS: amLODIPine 10 MG Tablet PO (07:52)
[2018-08-08] MEDS: Ferrous Sulfate 325 MG Tablet PO ×3 (07:52→18:21)
[2018-08-08] MEDS: Calcium (Elemental) 500 MG Tablet PO ×2 (07:53→22:11)
[2018-08-08] MEDS: Multivitamins,Ther W-Minerals Tablet 1 TABLET PO (07:53)
[2018-08-08] MEDS: Sertraline 100 MG Tablet PO (07:53)
[2018-08-08] MEDS: hydrALAZINE 50 MG Tablet 75 MG PO ×4 (07:53→22:12)
[2018-08-08] MEDS: Insulin Lispro 100 UNIT/ML INSULN.PEN 10 UNIT SC ×3 (07:55→18:22)
[2018-08-08] MEDS: Carvedilol 25 MG Tablet PO ×2 (07:55→22:14)
[2018-08-08] MEDS: Menthol/Lanolin/Calamine/Znox 113 GM Tube 1 APPLIC TOPICAL ×2 (07:58→22:14)
[2018-08-08 12:31] LABS: Bedside Glucose 144 mg/dL (70-110)
[2018-08-08 17:41] LABS: Bedside Glucose 175 mg/dL (70-110)
[2018-08-08] MEDS: Montelukast 10 MG Tablet PO (22:10)
[2018-08-08] MEDS: Gabapentin 300 MG Capsule PO (22:12)
[2018-08-08] MEDS: Atorvastatin Calcium 20 MG Tablet PO (22:12)
[2018-08-08 22:46] LABS: Bedside Glucose 214 mg/dL (70-110)
[2018-08-09] VITALS (9 sets, daily range): BP systolic 145–153; BP diastolic 74–83; PULSE 62–71; RESP 16–18; TEMP 36.5; O2SAT 97–100
[2018-08-09] MEDS: 0.9% NaCl Peripheral Flush Adult/Peds IV (00:28)
[2018-08-09] MEDS: Enoxaparin 30 MG/0.3 ML Syringe SC (05:43)
[2018-08-09] MEDS: busPIRone 5 MG Tablet PO ×3 (05:43→22:21)
--- NOTE | 2018-08-09 05:47 | NURSING ---
Pt refused showering this a.m. d/t safety concerns. Pt requested basin bath instead.
[2018-08-09 06:21] LABS: Bedside Glucose 184 mg/dL (70-110)
[2018-08-09 06:31] LABS: Anion Gap 12 (5-15); BUN 119 mg/dL (7-18); BUN/Creat Ratio 49.6 RATIO (10-20); Calcium,Total 8.4 mg/dL (8.5-10.1); Chloride 103 mmol/L (98-107); EST Glomerular Filtration Rate 22 mL/min (>60); Est Glom Filt Rate - Afr Amer 27 mL/min (>60); Estimated Creatinine Clearance 19.75 ml/min; Glucose 209 mg/dL (74-106); Potassium 3.5 mmol/L (3.5-5.1); Sodium Level 140 mmol/L (136-145)
[2018-08-09] MEDS: Insulin Lispro 100 UNIT/ML INSULN.PEN 10 UNIT SC ×3 (07:35→17:07)
[2018-08-09] MEDS: Multivitamins,Ther W-Minerals Tablet 1 TABLET PO (07:36)
[2018-08-09] MEDS: Ferrous Sulfate 325 MG Tablet PO ×3 (07:36→17:07)
[2018-08-09] MEDS: Calcium (Elemental) 500 MG Tablet PO ×2 (07:36→22:22)
[2018-08-09] MEDS: Furosemide 40 MG Tablet PO ×2 (07:36→17:07)
[2018-08-09] MEDS: Pantoprazole Sodium 20 MG Tablet PO (07:36)
[2018-08-09] MEDS: predniSONE 20 MG Tablet 40 MG PO (07:36)
[2018-08-09] MEDS: hydrALAZINE 50 MG Tablet 75 MG PO ×4 (07:36→22:20)
[2018-08-09] MEDS: amLODIPine 10 MG Tablet PO (07:36)
[2018-08-09] MEDS: Menthol/Lanolin/Calamine/Znox 113 GM Tube 1 APPLIC TOPICAL ×2 (07:37→22:22)
[2018-08-09] MEDS: Sertraline 100 MG Tablet PO (07:37)
[2018-08-09] MEDS: Carvedilol 25 MG Tablet PO ×2 (07:39→22:22)
--- NOTE | 2018-08-09 09:54 | CASEMGMT ---
Team meeting held. Patient present as well as patient daughter (via speaker phone). Patient to continue with further care and treatment on the Inpatient Rehab Unit. Patient with insurance update due on this day and aware that continued stay approval is not guaranteed. Patient plans to discharge to home with family vs. SNF depending on patient level of need at time of discharge. Support given. Will continue to follow. Raj MADRID, JOSE
--- NOTE | 2018-08-09 10:03 | CASEMGMT ---
Insurance Clinical information sent. Pending continued stay approval. Auth#[id number] Raj MADRID, JOSE
[2018-08-09 12:46] LABS: Bedside Glucose 164 mg/dL (70-110)
--- NOTE | 2018-08-09 14:12 | PCM.PN.NEU ---
Subjective: pt staffed in team meeting, daughter present by speaker phone. with PT she is mod assist with 50% assistance. with OT upper body care she is supervision only but 50% assist with Lower body care. stable from RN standpoint, social service awaiting insurance update. questions answered, primarily with respect to discharge planning. - Physical Exam General: Alert, Oriented x3, Cooperative, No apparent distress Neurological: Cranial nerves II-XII grossly intact Psych/Mental Status: Normal Affect, Alert and oriented to time, place, person, mood and affect Vital Signs Temp Pulse Resp BP Pulse Ox 36.5 C L 64 18 145/83 H 100 08/09/18 07:21 08/09/18 13:02 08/09/18 07:21 08/09/18 12:48 08/09/18 07:21 Oxygen Flow Rate (L/min) 96 Oxygen Delivery Method Room Air Weight: 109.9 kg Body Mass Index (BMI) 47.2 Intake and Output for Last 24 Hours 08/07/18 08/08/18 08/09/18 23:59 23:59 23:59 Intake Total 700 / 700 1840 / 1840 930 / 930 Output Total 1550 / 1550 1400 / 1400 400 / 400 Balance -850 / -850 440 / 440 530 / 530 Laboratory Tests Past 24 Hrs 08/09/18 05:35 Sodium 140 Potassium 3.5 Chloride 103 Carbon Dioxide 25.0 Anion Gap 12 BUN 119 H* Creatinine 2.40 H Estim Creat Clear Calc 19.75 Est GFR (MDRD) Af Amer 27 L Est GFR (MDRD) Non-Af 22 L BUN/Creatinine Ratio 49.6 H Glucose 209 H Calcium 8.4 L POC Glucose 08/09/18 08/09/18 08/08/18 12:39 06:15 22:03 POC Glucose 164 H 184 H 214 H 08/08/18 17:26 POC Glucose 175 H Medical Necessity - Tobacco Use Smoking Status: Never smoker Tobacco Use: Non-smoker Assessment/Plan All Active Problems Debility (Acute) Debility status post prolonged hospitalization for acute/subacute neuropathy of unknown cause. Workup was previously negative for GBS including lumbar puncture. She has received a course of IVIG as well as now recently plasmapheresis and is on steroids. Goal of rehab is amish of prior level of functional independence. Plan: Physical therapy for gait and balance. 08/02: Stable/improved Occupational Therapy for ADLs. 08/02: Stable/improved PRN analgesics 07/31: Controlled. 08/02: Stable Bowel protocol. 08/02: No issues DVT prophylaxis Currently on steroids, will need to consider further immune suppression 07/31: Stable. 08/07: Steroids decreased to 40 mg about 2 days ago, will continue this for another week or so and consider tapering further. discharge planning: await update from insurance, team
--- NOTE | 2018-08-09 14:15 | PN.NEURO_ITS ---
Subjective: pt staffed in team meeting, daughter present by speaker phone. with PT she is mod assist with 50% assistance. with OT upper body care she is supervision only but 50% assist with Lower body care. stable from RN standpoint, social service awaiting insurance update. questions answered, primarily with respect to discharge planning. - Physical Exam General: Alert, Oriented x3, Cooperative, No apparent distress Neurological: Cranial nerves II-XII grossly intact Psych/Mental Status: Normal Affect, Alert and oriented to time, place, person, mood and affect Vital Signs Temp Pulse Resp BP Pulse Ox 36.5 C L 64 18 145/83 H 100 08/09/18 07:21 08/09/18 13:02 08/09/18 07:21 08/09/18 12:48 08/09/18 07:21 Oxygen Flow Rate (L/min) 96 Oxygen Delivery Method Room Air Weight: 109.9 kg Body Mass Index (BMI) 47.2 Intake and Output for Last 24 Hours 08/07/18 08/08/18 08/09/18 23:59 23:59 23:59 Intake Total 700 / 700 1840 / 1840 930 / 930 Output Total 1550 / 1550 1400 / 1400 400 / 400 Balance -850 / -850 440 / 440 530 / 530 Laboratory Tests Past 24 Hrs 08/09/18 05:35 Sodium 140 Potassium 3.5 Chloride 103 Carbon Dioxide 25.0 Anion Gap 12 BUN 119 H* Creatinine 2.40 H Estim Creat Clear Calc 19.75 Est GFR (MDRD) Af Amer 27 L Est GFR (MDRD) Non-Af 22 L BUN/Creatinine Ratio 49.6 H Glucose 209 H Calcium 8.4 L POC Glucose 08/09/18 08/09/18 08/08/18 12:39 06:15 22:03 POC Glucose 164 H 184 H 214 H 08/08/18 17:26 POC Glucose 175 H Medical Necessity - Tobacco Use Smoking Status: Never smoker Tobacco Use: Non-smoker Assessment/Plan All Active Problems Debility (Acute) Debility status post prolonged hospitalization for acute/subacute neuropathy of unknown cause. Workup was previously negative for GBS including lumbar punctur e. She has received a course of IVIG as well as now recently plasmapheresis and is on steroids. Goal of rehab is anabaptist of prior level of functional independence. Plan: Physical therapy for gait and balance. 08/02: Stable/improved Occupational Therapy for ADLs. 08/02: Stable/improved PRN analgesics 07/31: Controlled. 08/02: Stable Bowel protocol. 08/02: No issues DVT prophylaxis Currently on steroids, will need to consider further immune suppression 07/31: Stable. 08/07: Steroids decreased to 40 mg about 2 days ago, will continue this for another week or so and consider tapering further. discharge planning: await update from insurance, team
[2018-08-09 17:26] LABS: Bedside Glucose 316 mg/dL (70-110)
[2018-08-09] MEDS: Gabapentin 300 MG Capsule PO (22:22)
[2018-08-09] MEDS: Atorvastatin Calcium 20 MG Tablet PO (22:22)
[2018-08-09] MEDS: Montelukast 10 MG Tablet PO (22:23)
[2018-08-09 22:31] LABS: Bedside Glucose 250 mg/dL (70-110)
[2018-08-10] MEDS: busPIRone 5 MG Tablet PO ×3 (05:57→21:21)
[2018-08-10] MEDS: Enoxaparin 30 MG/0.3 ML Syringe SC (05:57)
[2018-08-10 06:17] LABS: Anion Gap 13 (5-15); BUN 115 mg/dL (7-18); Calcium,Total 8.3 mg/dL (8.5-10.1); Chloride 102 mmol/L (98-107); EST Glomerular Filtration Rate 21 mL/min (>60); Est Glom Filt Rate - Afr Amer 26 mL/min (>60); Estimated Creatinine Clearance 18.96 ml/min; Glucose 209 mg/dL (74-106); Potassium 3.4 mmol/L (3.5-5.1); Sodium Level 140 mmol/L (136-145)
[2018-08-10 07:00] VITALS: BP 143/66; PULSE 60; RESP 18; TEMP 36.6; O2SAT 97
[2018-08-10 07:05] LABS: Bedside Glucose 172 mg/dL (70-110)
[2018-08-10] MEDS: Insulin Lispro 100 UNIT/ML INSULN.PEN 10 UNIT SC ×3 (07:45→18:12)
[2018-08-10] MEDS: Ferrous Sulfate 325 MG Tablet PO ×3 (10:40→18:10)
[2018-08-10 10:41] VITALS: BP 143/66; PULSE 60
[2018-08-10] MEDS: predniSONE 20 MG Tablet 40 MG PO (10:41)
[2018-08-10] MEDS: hydrALAZINE 50 MG Tablet 75 MG PO ×4 (10:41→21:21)
[2018-08-10] MEDS: Menthol/Lanolin/Calamine/Znox 113 GM Tube 1 APPLIC TOPICAL ×2 (10:43→21:28)
[2018-08-10] MEDS: Multivitamins,Ther W-Minerals Tablet 1 TABLET PO (10:43)
[2018-08-10] MEDS: amLODIPine 10 MG Tablet PO (10:44)
[2018-08-10] MEDS: Carvedilol 25 MG Tablet PO ×2 (10:44→21:23)
[2018-08-10] MEDS: Pantoprazole Sodium 20 MG Tablet PO (10:44)
[2018-08-10] MEDS: Sertraline 100 MG Tablet PO (10:44)
[2018-08-10] MEDS: Calcium (Elemental) 500 MG Tablet PO ×2 (10:44→21:23)
[2018-08-10] MEDS: Furosemide 40 MG Tablet PO ×2 (10:44→18:10)
[2018-08-10 11:26] LABS: Bedside Glucose 247 mg/dL (70-110)
--- NOTE | 2018-08-10 14:25 | CASEMGMT ---
Insurance Continued stay approved with next update due on 08/16/18. LCD: 08/16/18. Auth#[id number] Raj MADRID, JOSE
[2018-08-10 15:46] VITALS: BP 137/74; PULSE 58
[2018-08-10 16:35] LABS: Bedside Glucose 265 mg/dL (70-110)
[2018-08-10 18:10] VITALS: BP 126/71; PULSE 75
[2018-08-10 18:15] VITALS: BP 126/71; PULSE 67; RESP 16; TEMP 36.4; O2SAT 96
[2018-08-10 21:00] LABS: Bedside Glucose 293 mg/dL (70-110)
[2018-08-10 21:21] VITALS: BP 126/71; PULSE 67
[2018-08-10] MEDS: Montelukast 10 MG Tablet PO (21:23)
[2018-08-10] MEDS: Atorvastatin Calcium 20 MG Tablet PO (21:23)
[2018-08-10] MEDS: Gabapentin 300 MG Capsule PO (21:23)
[2018-08-11] MEDS: busPIRone 5 MG Tablet PO ×3 (06:53→21:02)
[2018-08-11] MEDS: Enoxaparin 30 MG/0.3 ML Syringe SC (06:53)
[2018-08-11 07:00] VITALS: PULSE 65; RESP 18; TEMP 36.6; O2SAT 98
[2018-08-11 07:00] LABS: Bedside Glucose 246 mg/dL (70-110)
[2018-08-11 07:43] VITALS: BP 146/67; PULSE 68
[2018-08-11] MEDS: Insulin Lispro 100 UNIT/ML INSULN.PEN 10 UNIT SC ×3 (07:43→17:09)
[2018-08-11] MEDS: Sertraline 100 MG Tablet PO (07:44)
[2018-08-11 07:45] VITALS: PULSE 68
[2018-08-11] MEDS: Carvedilol 25 MG Tablet PO ×2 (07:45→21:00)
[2018-08-11] MEDS: Multivitamins,Ther W-Minerals Tablet 1 TABLET PO (07:45)
[2018-08-11] MEDS: Furosemide 40 MG Tablet PO ×2 (07:45→17:08)
[2018-08-11] MEDS: Calcium (Elemental) 500 MG Tablet PO ×2 (07:45→21:03)
[2018-08-11] MEDS: amLODIPine 10 MG Tablet PO (07:45)
[2018-08-11] MEDS: predniSONE 20 MG Tablet 40 MG PO (07:45)
[2018-08-11] MEDS: hydrALAZINE 50 MG Tablet 75 MG PO ×4 (07:45→21:00)
[2018-08-11] MEDS: Pantoprazole Sodium 20 MG Tablet PO (07:45)
[2018-08-11] MEDS: Ferrous Sulfate 325 MG Tablet PO ×3 (07:45→17:08)
[2018-08-11] MEDS: Menthol/Lanolin/Calamine/Znox 113 GM Tube 1 APPLIC TOPICAL ×2 (07:46→21:04)
[2018-08-11 11:41] LABS: Bedside Glucose 261 mg/dL (70-110)
[2018-08-11 13:00] VITALS: PULSE 68
[2018-08-11 16:40] LABS: Bedside Glucose 320 mg/dL (70-110)
[2018-08-11 17:08] VITALS: PULSE 68
[2018-08-11 20:26] LABS: Bedside Glucose 412 mg/dL (70-110)
[2018-08-11 21:00] VITALS: BP 132/69; PULSE 68; RESP 18; TEMP 36.8; O2SAT 95
[2018-08-11] MEDS: Montelukast 10 MG Tablet PO ×2 (21:00→21:02)
[2018-08-11] MEDS: Atorvastatin Calcium 20 MG Tablet PO (21:03)
[2018-08-11] MEDS: Gabapentin 300 MG Capsule PO (21:03)
[2018-08-11] MEDS: Insulin Lispro 100 UNIT/ML INSULN.PEN SC (22:05)
[2018-08-12 02:26] LABS: Bedside Glucose 317 mg/dL (70-110)
[2018-08-12] MEDS: Insulin Lispro 100 UNIT/ML INSULN.PEN SC ×5 (03:07→22:20)
[2018-08-12] MEDS: Enoxaparin 30 MG/0.3 ML Syringe SC (06:49)
[2018-08-12] MEDS: busPIRone 5 MG Tablet PO ×3 (06:49→22:15)
[2018-08-12 07:20] VITALS: BP 155/76; PULSE 67; RESP 18; TEMP 37; O2SAT 95
[2018-08-12] MEDS: Sertraline 100 MG Tablet PO (07:38)
[2018-08-12 07:39] VITALS: BP 155/76; PULSE 67
[2018-08-12] MEDS: hydrALAZINE 50 MG Tablet 75 MG PO ×4 (07:39→22:15)
[2018-08-12] MEDS: amLODIPine 10 MG Tablet PO (07:39)
[2018-08-12] MEDS: Calcium (Elemental) 500 MG Tablet PO ×2 (07:39→22:15)
[2018-08-12] MEDS: Furosemide 40 MG Tablet PO ×2 (07:39→17:45)
[2018-08-12] MEDS: Pantoprazole Sodium 20 MG Tablet PO (07:39)
[2018-08-12] MEDS: Ferrous Sulfate 325 MG Tablet PO ×3 (07:40→17:45)
[2018-08-12] MEDS: Carvedilol 25 MG Tablet PO ×2 (07:40→22:15)
[2018-08-12] MEDS: predniSONE 20 MG Tablet 40 MG PO (07:40)
[2018-08-12] MEDS: Multivitamins,Ther W-Minerals Tablet 1 TABLET PO (07:40)
[2018-08-12] MEDS: Menthol/Lanolin/Calamine/Znox 113 GM Tube 1 APPLIC TOPICAL ×2 (07:41→22:15)
[2018-08-12] MEDS: Insulin Lispro 100 UNIT/ML INSULN.PEN 12 UNIT SC ×3 (07:53→17:46)
[2018-08-12 12:11] LABS: Bedside Glucose 350 mg/dL (70-110)
[2018-08-12 12:21] LABS: Bedside Glucose 195 mg/dL (70-110)
[2018-08-12 13:04] VITALS: PULSE 80
[2018-08-12 16:35] LABS: Bedside Glucose 345 mg/dL (70-110)
[2018-08-12 17:45] VITALS: PULSE 72
[2018-08-12 22:00] VITALS: PULSE 72; RESP 16; O2SAT 95
[2018-08-12 22:15] VITALS: BP 137/67; PULSE 72
[2018-08-12] MEDS: Gabapentin 300 MG Capsule PO (22:15)
[2018-08-12] MEDS: Atorvastatin Calcium 20 MG Tablet PO (22:15)
[2018-08-12 22:36] LABS: Bedside Glucose 316 mg/dL (70-110)
[2018-08-13] VITALS (7 sets, daily range): BP systolic 120–152; BP diastolic 65–73; PULSE 64–80; RESP 16–18; TEMP 36.8–36.9; O2SAT 94–96
[2018-08-13] MEDS: Insulin Lispro 100 UNIT/ML INSULN.PEN SC ×4 (02:43→20:56)
[2018-08-13 02:46] LABS: Bedside Glucose 272 mg/dL (70-110)
--- NOTE | 2018-08-13 05:16 | NURSING ---
[facility]
[2018-08-13] MEDS: busPIRone 5 MG Tablet PO ×3 (05:44→20:49)
[2018-08-13] MEDS: Enoxaparin 30 MG/0.3 ML Syringe SC (05:45)
[2018-08-13 07:05] LABS: Bedside Glucose 183 mg/dL (70-110)
[2018-08-13] MEDS: Sertraline 100 MG Tablet PO (07:44)
[2018-08-13] MEDS: Calcium (Elemental) 500 MG Tablet PO ×2 (07:44→20:49)
[2018-08-13] MEDS: Pantoprazole Sodium 20 MG Tablet PO (07:44)
[2018-08-13] MEDS: Furosemide 40 MG Tablet PO ×2 (07:44→17:17)
[2018-08-13] MEDS: hydrALAZINE 50 MG Tablet 75 MG PO ×4 (07:44→20:50)
[2018-08-13] MEDS: Multivitamins,Ther W-Minerals Tablet 1 TABLET PO (07:44)
[2018-08-13] MEDS: amLODIPine 10 MG Tablet PO (07:44)
[2018-08-13] MEDS: Carvedilol 25 MG Tablet PO ×2 (07:45→20:49)
[2018-08-13] MEDS: predniSONE 20 MG Tablet 40 MG PO (07:45)
[2018-08-13] MEDS: Ferrous Sulfate 325 MG Tablet PO ×3 (07:45→17:20)
[2018-08-13] MEDS: Insulin Lispro 100 UNIT/ML INSULN.PEN 12 UNIT SC ×3 (07:46→17:18)
[2018-08-13] MEDS: Menthol/Lanolin/Calamine/Znox 113 GM Tube 1 APPLIC TOPICAL ×2 (07:55→20:51)
[2018-08-13 11:46] LABS: Bedside Glucose 163 mg/dL (70-110)
--- NOTE | 2018-08-13 14:53 | PCM.PN.NEU ---
Subjective: No Issues overnight. Care discussed with nursing staff. - Physical Exam General: Alert HEENT: Normocephalic Neck: Supple Lungs: Normal air movement Cardiovascular: Normal S1, Normal S2 Abdomen: Bowel Sounds Present Extremities: No cyanosis Neurological: - - consious, alert, AoAx3, CN 2-12 grossly intact, power 5/5 both UE, 3/5 right LE, 2/5 left LE, Reflexes + B/L B/S/T and areflexia B/L K/A, gait deferred, no sensory loss, no cerebellar signs UE. Psych/Mental Status: Normal Affect Vital Signs Temp Pulse Resp BP Pulse Ox 98.3 F 80 18 120/70 94 08/13/18 09:04 08/13/18 14:30 08/13/18 09:04 08/13/18 14:30 08/13/18 09:04 Oxygen Flow Rate (L/min) 96 Oxygen Delivery Method Room Air Weight: 109.6 kg Body Mass Index (BMI) 47.2 Intake and Output for Last 24 Hours 08/11/18 08/12/18 08/13/18 23:59 23:59 23:59 Intake Total 1610 / 1610 700 / 700 700 / 700 Output Total 950 / 950 1100 / 1100 575 / 575 Balance 660 / 660 -400 / -400 125 / 125 POC Glucose 08/13/18 08/13/18 08/13/18 11:31 07:00 02:37 POC Glucose 163 H 183 H 272 H 08/12/18 08/12/18 22:20 16:30 POC Glucose 316 H 345 H Medical Necessity - Tobacco Use Smoking Status: Never smoker Tobacco Use: Non-smoker Assessment/Plan All Active Problems Debility (Acute) 58 yr F with PMH HTN, HLD, DM, CKD, Obesity re-admitted to [facility] on 07/28/18 s/p debility post B/L LE weakness and falls, for > 3 hrs therapy daily, with a goal of returning back home at or near her prior level of functional independence. Per patient she started having difficulty walking, with frequent falls, with bilateral LE weakness, gradually progressive over the past few months around last December 2017, with right foot drop, admitted initially to [facility] hospital on 06/14/2018, then to [facility] on 06/20/2018. NCS reported to show demyelinating features with conduction block consistent with CIDP, started on IV Solumedrol 1 g daily for 5 days following which patient felt she was doing better, continued on Prednisone 60 mg daily, IVIG avoided due to CKD, Rheumatological work up negative. LP, Lyme's ab testing, West Nile AB testing was negative. LP done showed WBCs-11, RBCs-0, Protein-33. MRI brain reported nothing acute, MRI C spine reported to show Broad-based midline and para midline disc herniation at C5-6 more prominent on the left side impinging on the left C6 nerve root and MRI L spine reported to show Lumbar spondylosis with disc herniations and foraminal narrowing at L4-5 and L5-S1. Patient was later discharged to [facility] on 07/16/18 for plasmapheresis for worsening LE weakness. She is followed by nephrology for CKD and is planned to see vascular surgery as outpatient for fistula placement. Currently maintained on daily prednisone. Plan -Physical therapy for gait and balance -Occupational Therapy for ADLs -As needed analgesics -Bowel protocol -DVT prophylaxis: SCDs, Lovenox -GI prophylaxis- on Pantoprazole. -CIDP - On Prednisone 40 mg PO once daily. Slow taper of steroid as outpatient. On GI prophylaxis and on Calcium -Hypertension - well controlled and stable on current medication of Norvasc,Lasix and Hydralazine -HLD - continue home dose of Lipitor -DM type II - blood sugars ACHS, Moderate sliding scale, On Insulin -CKD-Nephrology consult, avoid nephrotoxic drugs, on d/c follow up appointment with Dr. Payan for Fistula placement -Obesity - BMI is 44.7, encourage weight loss, consult nutrition, documentation of snoring with obesity, outpatient sleep study on discharge. -Depression- on Zoloft and Buspar -Fall precautions -Further medical management per hospitalist recommendations -Follow up with PCP, Nephrology, Vascular surgery, spine surgery and Neurology as outpatient following discharge
--- NOTE | 2018-08-13 15:11 | PN.NEURO_ITS ---
Subjective: No Issues overnight. Care discussed with nursing staff. - Physical Exam General: Alert HEENT: Normocephalic Neck: Supple Lungs: Normal air movement Cardiovascular: Normal S1, Normal S2 Abdomen: Bowel Sounds Present Extremities: No cyanosis Neurological: - - consious, alert, AoAx3, CN 2-12 grossly intact, power 5/5 both UE, 3/5 right LE, 2/5 left LE, Reflexes + B/L B/S/T and areflexia B/L K/A, gait deferred, no sensory loss, no cerebellar signs UE. Psych/Mental Status: Normal Affect Vital Signs Temp Pulse Resp BP Pulse Ox 98.3 F 80 18 120/70 94 08/13/18 09:04 08/13/18 14:30 08/13/18 09:04 08/13/18 14:30 08/13/18 09:04 Oxygen Flow Rate (L/min) 96 Oxygen Delivery Method Room Air Weight: 109.6 kg Body Mass Index (BMI) 47.2 Intake and Output for Last 24 Hours 08/11/18 08/12/18 08/13/18 23:59 23:59 23:59 Intake Total 1610 / 1610 700 / 700 700 / 700 Output Total 950 / 950 1100 / 1100 575 / 575 Balance 660 / 660 -400 / -400 125 / 125 POC Glucose 08/13/18 08/13/18 08/13/18 11:31 07:00 02:37 POC Glucose 163 H 183 H 272 H 08/12/18 08/12/18 22:20 16:30 POC Glucose 316 H 345 H Medical Necessity - Tobacco Use Smoking Status: Never smoker Tobacco Use: Non-smoker Assessment/Plan All Active Problems Debility (Acute) 58 yr F with PMH HTN, HLD, DM, CKD, Obesity re-admitted to [facility] on 07/28/18 s/p debility post B/L LE weakness and falls, for > 3 hrs therapy daily, with a goal of returning back home at or near her prior level of functional independence. Per patient she started having difficulty walking, with frequent falls, with bilateral LE weakness, gradually progressive over the past few months around last December 2017, with right foot drop, admitted initially to [facility] hospital on 06/14/2018, then to [facility] on 06/20/2018. NCS reported to show demyelinating features with conduction block consistent with CIDP, started on IV Solumedrol 1 g daily for 5 days following which patient felt she was doing better, continued on Prednisone 60 mg daily, IVIG avoided due to CKD, Rheumatological work up negative. LP, Lyme's ab testing, West Nile AB testing was negative. LP done showed WBCs-11, RBCs-0, Protein-33. MRI brain reported nothing acute, MRI C spine reported to show Broad-based midline and para midline disc herniation at C5-6 more prominent on the left side impinging on the left C6 nerve root and MRI L spine reported to show Lumbar spondylosis with disc herniations and foraminal narrowing at L4-5 and L5-S1. Patient was later discharged to [facility] on 07/16/18 for plasmapheresis for worsening LE weakness. She is followed by nephrology for CKD and is planned to see vascular surgery as outpatient for fistula placement. Currently maintained on daily prednisone. Plan -Physical therapy for gait and balance -Occupational Therapy for ADLs -As needed analgesics -Bowel protocol -DVT prophylaxis: SCDs, Lovenox -GI prophylaxis- on Pantoprazole. -CIDP - On Prednisone 40 mg PO once daily. Slow taper of steroid as outpatient. On GI prophylaxis and on Calcium -Hypertension - well controlled and stable on current medication of Norvasc,Lasix and Hydralazine -HLD - continue home dose of Lipitor -DM type II - blood sugars ACHS, Moderate sliding scale, On Insulin -CKD-Nephrology consult, avoid nephrotoxic drugs, on d/c follow up appointment with Dr. Payan for Fistula placement -Obesity - BMI is 44.7, encourage weight loss, consult nutrition, documentation of snoring with obesity, outpatient sleep study on discharge. -Depression- on Zoloft and Buspar -Fall precautions -Further medical management per hospitalist recommendations -Follow up with PCP, Nephrology, Vascular surgery, spine surgery and Neurology as outpatient following discharge
[2018-08-13 17:30] LABS: Bedside Glucose 130 mg/dL (70-110)
--- NOTE | 2018-08-13 18:49 | NURSING ---
consult enter for Dr Lew to see pt
[2018-08-13] MEDS: Gabapentin 300 MG Capsule PO (20:49)
[2018-08-13] MEDS: Atorvastatin Calcium 20 MG Tablet PO (20:49)
[2018-08-13] MEDS: Montelukast 10 MG Tablet PO (20:52)
[2018-08-13 21:05] LABS: Bedside Glucose 156 mg/dL (70-110)
--- NOTE | 2018-08-14 01:20 | NURSING ---
Reviewed and agree with [employer] documentation and FIMs charting.
[2018-08-14] MEDS: Insulin Lispro 100 UNIT/ML INSULN.PEN SC ×2 (02:22→23:00)
[2018-08-14 02:26] LABS: Bedside Glucose 172 mg/dL (70-110)
[2018-08-14] MEDS: Enoxaparin 30 MG/0.3 ML Syringe SC (05:56)
[2018-08-14] MEDS: busPIRone 5 MG Tablet PO ×3 (05:56→22:58)
[2018-08-14 07:05] LABS: Bedside Glucose 148 mg/dL (70-110)
[2018-08-14] MEDS: Insulin Lispro 100 UNIT/ML INSULN.PEN 12 UNIT SC ×3 (07:33→18:13)
[2018-08-14] MEDS: Furosemide 40 MG Tablet PO (07:34)
[2018-08-14] MEDS: Sertraline 100 MG Tablet PO (07:35)
[2018-08-14] MEDS: amLODIPine 10 MG Tablet PO (07:35)
[2018-08-14] MEDS: predniSONE 20 MG Tablet 40 MG PO (07:35)
[2018-08-14] MEDS: Pantoprazole Sodium 20 MG Tablet PO (07:35)
[2018-08-14] MEDS: Calcium (Elemental) 500 MG Tablet PO ×2 (07:35→22:59)
[2018-08-14] MEDS: Carvedilol 25 MG Tablet PO ×2 (07:36→22:58)
[2018-08-14] MEDS: Multivitamins,Ther W-Minerals Tablet 1 TABLET PO (07:37)
[2018-08-14] MEDS: Ferrous Sulfate 325 MG Tablet PO ×3 (07:38→18:13)
[2018-08-14] MEDS: Senna/Docusate Sodium 1 Tablet 2 TABLET PO (07:38)
[2018-08-14 07:40] VITALS: PULSE 64
[2018-08-14] MEDS: hydrALAZINE 50 MG Tablet 75 MG PO ×4 (07:40→22:59)
[2018-08-14] MEDS: Menthol/Lanolin/Calamine/Znox 113 GM Tube 1 APPLIC TOPICAL (07:42)
[2018-08-14 08:34] VITALS: BP 148/73; PULSE 64; RESP 17; TEMP 36.6; O2SAT 96
--- NOTE | 2018-08-14 10:22 | CASEMGMT ---
Social Work Voicemail received from Matt Herzog. [phone] xt. [phone]. Return phone call made and voicemail left. Raj MADRID, JOSE
[2018-08-14 12:06] LABS: Bedside Glucose 146 mg/dL (70-110)
[2018-08-14 14:01] VITALS: PULSE 77
--- NOTE | 2018-08-14 14:53 | PN_ITS ---
Subjective: Patient is admitted for difficulty walking and frequent fall from May 2018 secondary gradual bilateral lower extremity weakness since December 2017. Diagnosed with CIDP and had high-dose steroid and was transferred to [facility] for plasmapheresis and had 5 treatments and transferred back to post rehab. Vitals/I&O's: Vital Signs Temp Pulse Resp BP Pulse Ox 98 F 77 17 148/73 H 96 08/14/18 08:34 08/14/18 14:01 08/14/18 08:34 08/14/18 08:34 08/14/18 08:34 Oxygen Flow Rate (L/min) 96 Oxygen Delivery Method Room Air Weight: 241 lb 10.026 oz Body Mass Index (BMI) 47.2 Intake and Output for Last 24 Hours 08/12/18 08/13/18 08/14/18 23:59 23:59 23:59 Intake Total 700 / 700 1240 / 1240 680 / 680 Output Total 1100 / 1100 1525 / 1525 800 / 800 Balance -400 / -400 -285 / -285 -120 / -120 General: Alert, Oriented x3, Cooperative HEENT: Atraumatic, PERRLA, EOMI, Normocephalic Neck: Supple, No JVD, Negative Carotid Bruits Lungs: Clear to auscultation, Diminished - Entry is diminished in both lung bases. Cardiovascular: Regular rate, Regular Rhythm, Normal S1, Normal S2, No murmurs Abdomen: Bowel Sounds Present, Soft, Non Tender, Non-Distended Extremities: No edema, Capillary Refill Less than 3 Seconds Skin: No rashes, No breakdown Musculoskeletal: Arthritic Changes, - - Lower extremity weakness present Neurological: Cranial nerves II-XII grossly intact Psych/Mental Status: Normal Affect, Appropriate Laboratory Results 08/13/18 17:06: POC Glucose 130 H 08/13/18 20:55: POC Glucose 156 H 08/14/18 02:19: POC Glucose 172 H 08/14/18 06:33: POC Glucose 148 H 08/14/18 11:55: POC Glucose 146 H Current Medications Acetaminophen (Tylenol) 650 mg PO Q8H PRN PRN PRN Reason: PAIN Amlodipine Besylate (Norvasc) 10 mg PO DAILY [facility] Last Admin: 08/14/18 07:35 Dose: 10 mg Atorvastatin Calcium (Lipitor) 20 mg PO QHS [facility] Last Admin: 08/13/18 20:49 Dose: 20 mg Bisacodyl (Dulcolax) 10 mg RECTAL .PRN X 1 PRN PRN Reason: Constipation Bisacodyl (Dulcolax) 10 mg RECTAL .PRN X 1 PRN PRN Reason: Constipation Buspirone HCl (Buspar) 5 mg PO TID [facility] Last Admin: 08/14/18 14:01 Dose: 5 mg Calamine/Phenol (Calmoseptine Ointment) 1 applic TOPICAL BID [facility]; Protocol Last Admin: 08/14/18 07:42 Dose: 1 applicatio Calcium Carbonate (Os-Chinedu 500) 500 mg PO BID [facility] Last Admin: 08/14/18 07:35 Dose: 500 mg Carvedilol (Coreg) 25 mg PO BID [facility] Last Admin: 08/14/18 07:36 Dose: 25 mg Enoxaparin Sodium (Lovenox) 30 mg SC DAILY@0600 [facility] Last Admin: 08/14/18 05:56 Dose: 30 mg Ferrous Sulfate (Ferrous Sulfate) 325 mg PO TIDCM [facility] Last Admin: 08/14/18 12:27 Dose: 325 mg Furosemide (Lasix) 40 mg PO BID@1000,1800 [facility] Last Admin: 08/14/18 07:34 Dose: 40 mg Gabapentin (Neurontin) 300 mg PO QHS [facility] Last Admin: 08/13/18 20:49 Dose: 300 mg Hydralazine HCl (Apresoline) 75 mg PO 4X/DAY [facility] Last Admin: 08/14/18 14:01 Dose: 75 mg Hydrocortisone Acetate (Anusol Hc) 25 mg RECTAL BID PRN PRN PRN Reason: Hemorrhoids Last Admin: 07/30/18 13:54 Dose: 25 mg Insulin Glargine (Lantus (Bkc)) 42 units SC BREAKFAST [facility] Last Admin: 08/14/18 07:41 Dose: 42 units Insulin Human Lispro (Humalog Kwikpen (Bkc)) 0 unit SC ACHS & 0200 [facility]; Protocol Last Admin: 08/14/18 12:28 Dose: Not Given Insulin Human Lispro (Humalog Kwikpen (Bkc)) 12 unit SC TIDAC [facility] Last Admin: 08/14/18 12:28 Dose: 12 u Magnesium Hydroxide (Milk Of Magnesia) 30 ml PO .PRN X 1 PRN PRN Reason: Constipation Montelukast Sodium (Singulair) 10 mg PO QHS [facility] Last Admin: 08/13/18 20:52 Dose: 10 mg Multivitamins/Minerals (Multivitamin With Minerals) 1 tablet PO DAILY@0800 [facility] Last Admin: 08/14/18 07:37 Dose: 1 tablet Ondansetron HCl (Zofran Odt) 4 mg PO Q8H PRN PRN PRN Reason: NAUSEA Pantoprazole Sodium (Protonix) 20 mg PO DAILY [facility] Last Admin: 08/14/18 07:35 Dose: 20 mg Prednisone () 40 mg PO DAILY@0800 [facility] Last Admin: 08/14/18 07:35 Dose: 40 mg Senna/Docusate Sodium (Senokot-S, Leti-Colace) 2 tablet PO BID [facility] Last Admin: 08/14/18 07:38 Dose: 1 tablet Sertraline HCl (Zoloft) 100 mg PO DAILY [facility] Last Admin: 08/14/18 07:35 Dose: 100 mg Sodium Chloride () 5 - 15 ml IV UD PRN PRN Reason: SALINE FLUSH Last Admin: 08/09/18 00:28 Dose: 10 ml Medical Necessity - Tobacco Use Smoking Status: Never smoker Tobacco Use: Non-smoker Assessment/Plan All Active Problems Debility (Acute) There is a 58-year female who is admitted on rehab after she had difficulty walking and frequent fall from May 2018 secondary gradual bilateral lower extremity weakness since December 2017. She was diagnosed with CIDP after NCS showed polyneuropathy and had high-dose steroid here in [facility] and was transferred to [facility] for plasmapheresis and had 5 treatments and transferred back to post rehab. 1. chronic inflammatory demyelinating polyneuropathy * s/p 5 rounds of plasmapheresis at [facility] * on PO prednisone * neurology on board 2. HF of unknown etiology * on lasix 40mg bid. * 2D echo on 08/06/18 reported as EF 65% with moderate concentric LVH. Evidence of diastolic dysfunction. No regional wall motion abnormality. Normal RV size and systolic function. Left atrium mildly enlarged. Moderate 2+ MR. Mild mitral stenosis. Mild diffuse mitral valve thickening. Mild TR, RVSP 49 mmHg. Normal aortic valve. * will monitor input output * 3. Right midlung nodule was ruled out on CT chest. CT chest did not show evidence of 1.7 cm nodule in the right midlung, seen on chest x-ray. . CKD 3: stable. 4. Type 2 diabetes mellitus: * on lantus 37IU qhs and ISS. * blood sugars well controlled * incresase mealtime insulin coverage to SC lispro 10IU tid. * continue high dose ISS * accuchecks ACHS * 5. HTN: * fairly controlled * On amlodipine 10 mg daily, carvedilol 25 mg daily, hydralazine 50 mg 3 times daily and losartan 50 mg daily. * 6. Ecchymosis of lower abdomen: Likely due to Lovenox injections. Stable and asymptomatic. We will continue to monitor. 7. Bilateral lower extremity edema:on lasix DVT prophylaxis: lovenox. Code Visit Inpatient E&M: 49948 Subs Hosp L2
--- NOTE | 2018-08-14 15:41 | PCM.CONS.R ---
Consultation - Renal 08/14/18 PCP/ Referring MD: Requesting physician: [] Primary care physician: Param Razo MD - History of Present Illness History of Present Illness: The patient is a 58yo obese F with CKD stage IV due to diabetes with nephrotic proteinuria, HTN, HLD, DM2 admitted to [facility] back in May 2018for difficulty walking with frequent falls, gradual bilateral LE weakness, progressive over the past few months since December 2017. She had right foot drop with seronegative workup. She was diagnosed with CIDP and received physical therapy and rehab on June 20, 2018. She was treated with high-dose steroids. She was subsequently transferred to [facility] for plasmapheresis where she received 5 treatments then transferred back to [facility] on July 27. She remains on high-dose steroids currently on prednisone 40 mg a day. Creatinine is usually at low 2 range now at 2.5. BUN elevated at 115. She denies any nausea or vomiting or diarrhea. She continues to have lower extremity weakness. She is on Lasix twice a day for lower extremity edema. - Allergies Allergies: Allergies codeine Allergy (Verified 06/14/18 17:11) Other CONFUSION latex Allergy (Verified 06/14/18 17:11) Hives Sulfa (Sulfonamide Antibiotics) Allergy (Verified 06/14/18 17:11) Rash - Current Medications Current Medications: Current Medications Acetaminophen (Tylenol) 650 mg PO Q8H PRN PRN PRN Reason: PAIN Amlodipine Besylate (Norvasc) 10 mg PO DAILY [facility] Last Admin: 08/14/18 07:35 Dose: 10 mg Atorvastatin Calcium (Lipitor) 20 mg PO QHS [facility] Last Admin: 08/13/18 20:49 Dose: 20 mg Bisacodyl (Dulcolax) 10 mg RECTAL .PRN X 1 PRN PRN Reason: Constipation Bisacodyl (Dulcolax) 10 mg RECTAL .PRN X 1 PRN PRN Reason: Constipation Buspirone HCl (Buspar) 5 mg PO TID [facility] Last Admin: 08/14/18 14:01 Dose: 5 mg Calamine/Phenol (Calmoseptine Ointment) 1 applic TOPICAL BID [facility]; Protocol Last Admin: 08/14/18 07:42 Dose: 1 applicatio Calcium Carbonate (Os-Chinedu 500) 500 mg PO BID [facility] Last Admin: 08/14/18 07:35 Dose: 500 mg Carvedilol (Coreg) 25 mg PO BID [facility] Last Admin: 08/14/18 07:36 Dose: 25 mg Enoxaparin Sodium (Lovenox) 30 mg SC DAILY@0600 [facility] Last Admin: 08/14/18 05:56 Dose: 30 mg Ferrous Sulfate (Ferrous Sulfate) 325 mg PO TIDCM [facility] Last Admin: 08/14/18 12:27 Dose: 325 mg Furosemide (Lasix) 40 mg PO BID@1000,1800 [facility] Last Admin: 08/14/18 07:34 Dose: 40 mg Gabapentin (Neurontin) 300 mg PO QHS [facility] Last Admin: 08/13/18 20:49 Dose: 300 mg Hydralazine HCl (Apresoline) 75 mg PO 4X/DAY [facility] Last Admin: 08/14/18 14:01 Dose: 75 mg Hydrocortisone Acetate (Anusol Hc) 25 mg RECTAL BID PRN PRN PRN Reason: Hemorrhoids Last Admin: 07/30/18 13:54 Dose: 25 mg Insulin Glargine (Lantus (Bkc)) 42 units SC BREAKFAST [facility] Last Admin: 08/14/18 07:41 Dose: 42 units Insulin Human Lispro (Humalog Kwikpen (Bkc)) 0 unit SC ACHS & 0200 [facility]; Protocol Last Admin: 08/14/18 12:28 Dose: Not Given Insulin Human Lispro (Humalog Kwikpen (Bkc)) 12 unit SC TIDAC [facility] Last Admin: 08/14/18 12:28 Dose: 12 u Magnesium Hydroxide (Milk Of Magnesia) 30 ml PO .PRN X 1 PRN PRN Reason: Constipation Montelukast Sodium (Singulair) 10 mg PO QHS [facility] Last Admin: 08/13/18 20:52 Dose: 10 mg Multivitamins/Minerals (Multivitamin With Minerals) 1 tablet PO DAILY@0800 [facility] Last Admin: 08/14/18 07:37 Dose: 1 tablet Ondansetron HCl (Zofran Odt) 4 mg PO Q8H PRN PRN PRN Reason: NAUSEA Pantoprazole Sodium (Protonix) 20 mg PO DAILY [facility] Last Admin: 08/14/18 07:35 Dose: 20 mg Prednisone () 40 mg PO DAILY@0800 [facility] Last Admin: 08/14/18 07:35 Dose: 40 mg Senna/Docusate Sodium (Senokot-S, Leti-Colace) 2 tablet PO BID [facility] Last Admin: 08/14/18 07:38 Dose: 1 tablet Sertraline HCl (Zoloft) 100 mg PO DAILY [facility] Last Admin: 08/14/18 07:35 Dose: 100 mg Sodium Chloride () 5 - 15 ml IV UD PRN PRN Reason: SALINE FLUSH Last Admin: 08/09/18 00:28 Dose: 10 ml - Past Medical History Past Medical History (Chronic Problems): Chronic Problems 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) Hyperlipidemia (Chronic) Chronic kidney disease (Chronic) HTN (hypertension) (Chronic) Obesity (Chronic) DM2 (diabetes mellitus, type 2) (Chronic) - Past Surgical History Surgical History: cholecystectomy, - - Tubal ligation - Social History Smoking Status: Never smoker Alcohol: None Drugs: None - Family History Maternal History Items: Cancer, Heart Disease Paternal History Items: Diabetes, Heart Disease, Hypertension Sibling History Items: Diabetes Review of Systems Constitutional: Reports: Weakness. Denies: Anorexia, Chills, Fever Cardiovascular: Reports: Edema. Denies: Chest Pain, Syncope Respiratory: Reports: - - Hoarseness. Denies: Cough, Shortness of Breath Gastrointestinal: Denies: Abdominal Pain, Constipation, Diarrhea, Nausea, Vomiting Genitourinary: Denies: Dysuria, Frequency Musculoskeletal: Reports: - - Leg weakness, - - Lower extremity edema Skin: Denies: Rash Neurological: Denies: Tremor, Seizures Psychiatric: Denies: Anxiety, Depression Hematologic/ Lymphatic: Reports: Anemia. Denies: Hx of blood clot - Physical Exam General: Alert, Oriented x3, Cooperative, No apparent distress Neck: Supple Lungs: Clear to auscultation Cardiovascular: Regular rate Abdomen: Bowel Sounds Present, Soft, Non Tender, Non-Distended, Obese Extremities: Edema - 1+ pitting bilateral lower extremities Musculoskeletal: - - Muscle weakness 2/5 motor strength bilateral lower extremities Neurological: - - Lower extremity weakness Psych/Mental Status: Normal Affect, Appropriate, Alert and oriented to time, place, person, mood and affect Vital Signs Temp Pulse Resp BP Pulse Ox 98 F 77 17 148/73 H 96 08/14/18 08:34 08/14/18 14:01 08/14/18 08:34 08/14/18 08:34 08/14/18 08:34 Oxygen Flow Rate (L/min) 96 Oxygen Delivery Method Room Air Weight: 109.6 kg Body Mass Index (BMI) 47.2 Intake and Output for Last 24 Hours 08/12/18 08/13/18 08/14/18 23:59 23:59 23:59 Intake Total 700 / 700 1240 / 1240 680 / 680 Output Total 1100 / 1100 1525 / 1525 800 / 800 Balance -400 / -400 -285 / -285 -120 / -120 POC Glucose 08/14/18 08/14/18 08/14/18 11:55 06:33 02:19 POC Glucose 146 H 148 H 172 H 08/13/18 08/13/18 20:55 17:06 POC Glucose 156 H 130 H Assessment/Plan All Active Problems Debility (Acute) 1. 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 Creatinine slightly elevated from baseline likely due to prerenal event from Lasix. BUN elevated likely due to steroid therapy. Consider reducing Lasix to 40 mg once a day. 2. DM type II insulin therapy managed by medical service. Start low dose losartan for diabetic proteinuria 3. Hypertension with relatively stable blood pressures 4. 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 5. Lower extremity edema likely due to high-dose steroids and calcium channel airam. Consider discontinuing amlodipine. 6. Okay to have a slice of pizza and chicken tenders in her diet 7. Anemia check hgb, on oral iron
--- NOTE | 2018-08-14 15:46 | CON.PCM_ITS ---
Consultation - Renal 08/14/18 PCP/ Referring MD: Requesting physician: [] Primary care physician: Param Razo MD - History of Present Illness History of Present Illness: The patient is a 58yo obese F with CKD stage IV due to diabetes with nephrotic proteinuria, HTN, HLD, DM2 admitted to [facility] back in May 2018for difficulty walking with frequent falls, gradual bilateral LE weakness, progressive over the past few months since December 2017. She had right foot drop with seronegative workup. She was diagnosed with CIDP and received physical therapy and rehab on June 20, 2018. She was treated with high-dose steroids. She was subsequently transferred to [facility] for plasmapheresis where she received 5 treatments then transferred back to [facility] on July 27. She remains on high-dose steroids currently on prednisone 40 mg a day. Creatinine is usually at low 2 range now at 2.5. BUN elevated at 115. She denies any nausea or vomiting or diarrhea. She continues to have lower extremity weakness. She is on Lasix twice a day for lower extremity edema. - Allergies Allergies: Allergies codeine Allergy (Verified 06/14/18 17:11) Other CONFUSION latex Allergy (Verified 06/14/18 17:11) Hives Sulfa (Sulfonamide Antibiotics) Allergy (Verified 06/14/18 17:11) Rash - Current Medications Current Medications: Current Medications Acetaminophen (Tylenol) 650 mg PO Q8H PRN PRN PRN Reason: PAIN Amlodipine Besylate (Norvasc) 10 mg PO DAILY [facility] Last Admin: 08/14/18 07:35 Dose: 10 mg Atorvastatin Calcium (Lipitor) 20 mg PO QHS [facility] Last Admin: 08/13/18 20:49 Dose: 20 mg Bisacodyl (Dulcolax) 10 mg RECTAL .PRN X 1 PRN PRN Reason: Constipation Bisacodyl (Dulcolax) 10 mg RECTAL .PRN X 1 PRN PRN Reason: Constipation Buspirone HCl (Buspar) 5 mg PO TID [facility] Last Admin: 08/14/18 14:01 Dose: 5 mg Calamine/Phenol (Calmoseptine Ointment) 1 applic TOPICAL BID [facility]; Protocol Last Admin: 08/14/18 07:42 Dose: 1 applicatio Calcium Carbonate (Os-Chinedu 500) 500 mg PO BID [facility] Last Admin: 08/14/18 07:35 Dose: 500 mg Carvedilol (Coreg) 25 mg PO BID [facility] Last Admin: 08/14/18 07:36 Dose: 25 mg Enoxaparin Sodium (Lovenox) 30 mg SC DAILY@0600 [facility] Last Admin: 08/14/18 05:56 Dose: 30 mg Ferrous Sulfate (Ferrous Sulfate) 325 mg PO TIDCM [facility] Last Admin: 08/14/18 12:27 Dose: 325 mg Furosemide (Lasix) 40 mg PO BID@1000,1800 [facility] Last Admin: 08/14/18 07:34 Dose: 40 mg Gabapentin (Neurontin) 300 mg PO QHS [facility] Last Admin: 08/13/18 20:49 Dose: 300 mg Hydralazine HCl (Apresoline) 75 mg PO 4X/DAY [facility] Last Admin: 08/14/18 14:01 Dose: 75 mg Hydrocortisone Acetate (Anusol Hc) 25 mg RECTAL BID PRN PRN PRN Reason: Hemorrhoids Last Admin: 07/30/18 13:54 Dose: 25 mg Insulin Glargine (Lantus (Bkc)) 42 units SC BREAKFAST [facility] Last Admin: 08/14/18 07:41 Dose: 42 units Insulin Human Lispro (Humalog Kwikpen (Bkc)) 0 unit SC ACHS & 0200 [facility]; Protocol Last Admin: 08/14/18 12:28 Dose: Not Given Insulin Human Lispro (Humalog Kwikpen (Bkc)) 12 unit SC TIDAC [facility] Last Admin: 08/14/18 12:28 Dose: 12 u Magnesium Hydroxide (Milk Of Magnesia) 30 ml PO .PRN X 1 PRN PRN Reason: Constipation Montelukast Sodium (Singulair) 10 mg PO QHS [facility] Last Admin: 08/13/18 20:52 Dose: 10 mg Multivitamins/Minerals (Multivitamin With Minerals) 1 tablet PO DAILY@0800 [facility] Last Admin: 08/14/18 07:37 Dose: 1 tablet Ondansetron HCl (Zofran Odt) 4 mg PO Q8H PRN PRN PRN Reason: NAUSEA Pantoprazole Sodium (Protonix) 20 mg PO DAILY [facility] Last Admin: 08/14/18 07:35 Dose: 20 mg Prednisone () 40 mg PO DAILY@0800 [facility] Last Admin: 08/14/18 07:35 Dose: 40 mg Senna/Docusate Sodium (Senokot-S, Leti-Colace) 2 tablet PO BID [facility] Last Admin: 08/14/18 07:38 Dose: 1 tablet Sertraline HCl (Zoloft) 100 mg PO DAILY [facility] Last Admin: 08/14/18 07:35 Dose: 100 mg Sodium Chloride () 5 - 15 ml IV UD PRN PRN Reason: SALINE FLUSH Last Admin: 08/09/18 00:28 Dose: 10 ml - Past Medical History Past Medical History (Chronic Problems): Chronic Problems 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) Hyperlipidemia (Chronic) Chronic kidney disease (Chronic) HTN (hypertension) (Chronic) Obesity (Chronic) DM2 (diabetes mellitus, type 2) (Chronic) - Past Surgical History Surgical History: cholecystectomy, - - Tubal ligation - Social History Smoking Status: Never smoker Alcohol: None Drugs: None - Family History Maternal History Items: Cancer, Heart Disease Paternal History Items: Diabetes, Heart Disease, Hypertension Sibling History Items: Diabetes Review of Systems Constitutional: Reports: Weakness. Denies: Anorexia, Chills, Fever Cardiovascular: Reports: Edema. Denies: Chest Pain, Syncope Respiratory: Reports: - - Hoarseness. Denies: Cough, Shortness of Breath Gastrointestinal: Denies: Abdominal Pain, Constipation, Diarrhea, Nausea, Vomiting Genitourinary: Denies: Dysuria, Frequency Musculoskeletal: Reports: - - Leg weakness, - - Lower extremity edema Skin: Denies: Rash Neurological: Denies: Tremor, Seizures Psychiatric: Denies: Anxiety, Depression Hematologic/ Lymphatic: Reports: Anemia. Denies: Hx of blood clot - Physical Exam General: Alert, Oriented x3, Cooperative, No apparent distress Neck: Supple Lungs: Clear to auscultation Cardiovascular: Regular rate Abdomen: Bowel Sounds Present, Soft, Non Tender, Non-Distended, Obese Extremities: Edema - 1+ pitting bilateral lower extremities Musculoskeletal: - - Muscle weakness 2/5 motor strength bilateral lower extremities Neurological: - - Lower extremity weakness Psych/Mental Status: Normal Affect, Appropriate, Alert and oriented to time, place, person, mood and affect Vital Signs Temp Pulse Resp BP Pulse Ox 98 F 77 17 148/73 H 96 08/14/18 08:34 08/14/18 14:01 08/14/18 08:34 08/14/18 08:34 08/14/18 08:34 Oxygen Flow Rate (L/min) 96 Oxygen Delivery Method Room Air Weight: 109.6 kg Body Mass Index (BMI) 47.2 Intake and Output for Last 24 Hours 08/12/18 08/13/18 08/14/18 23:59 23:59 23:59 Intake Total 700 / 700 1240 / 1240 680 / 680 Output Total 1100 / 1100 1525 / 1525 800 / 800 Balance -400 / -400 -285 / -285 -120 / -120 POC Glucose 08/14/18 08/14/18 08/14/18 11:55 06:33 02:19 POC Glucose 146 H 148 H 172 H 08/13/18 08/13/18 20:55 17:06 POC Glucose 156 H 130 H Assessment/Plan All Active Problems Debility (Acute) 1. 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 Creatinine slightly elevated from baseline likely due to prerenal event from Lasix. BUN elevated likely due to steroid therapy. Consider reducing Lasix to 40 mg once a day. 2. DM type II insulin therapy managed by medical service. Start low dose losartan for diabetic proteinuria 3. Hypertension with relatively stable blood pressures 4. 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 5. Lower extremity edema likely due to high-dose steroids and calcium channel airam. Consider discontinuing amlodipine. 6. Okay to have a slice of pizza and chicken tenders in her diet 7. Anemia check hgb, on oral iron
[2018-08-14 18:05] LABS: Bedside Glucose 135 mg/dL (70-110)
[2018-08-14 18:14] VITALS: BP 153/71; PULSE 68
[2018-08-14 22:35] LABS: Bedside Glucose 236 mg/dL (70-110)
[2018-08-14 22:59] VITALS: BP 153/71; PULSE 68
[2018-08-14] MEDS: Atorvastatin Calcium 20 MG Tablet PO (22:59)
[2018-08-14] MEDS: Gabapentin 300 MG Capsule PO (22:59)
[2018-08-14] MEDS: Montelukast 10 MG Tablet PO (22:59)
[2018-08-14 23:00] VITALS: BP 153/71; PULSE 68; RESP 20; TEMP 36.4; O2SAT 97
[2018-08-15] VITALS (7 sets, daily range): BP systolic 121–123; BP diastolic 64–69; PULSE 61–80; RESP 18; TEMP 36.6; O2SAT 97–99
[2018-08-15] MEDS: Insulin Lispro 100 UNIT/ML INSULN.PEN SC ×5 (02:19→21:03)
[2018-08-15 03:35] LABS: Bedside Glucose 180 mg/dL (70-110)
--- NOTE | 2018-08-15 05:05 | NURSING ---
Reviewed and agree with [employer] documentation and FIMs charting
[2018-08-15 07:06] LABS: Bedside Glucose 150 mg/dL (70-110)
[2018-08-15] MEDS: Enoxaparin 30 MG/0.3 ML Syringe SC (08:07)
[2018-08-15] MEDS: Insulin Lispro 100 UNIT/ML INSULN.PEN 12 UNIT SC ×3 (08:08→17:39)
[2018-08-15] MEDS: hydrALAZINE 50 MG Tablet 75 MG PO ×4 (08:08→20:54)
[2018-08-15] MEDS: Pantoprazole Sodium 20 MG Tablet PO (08:11)
[2018-08-15] MEDS: Calcium (Elemental) 500 MG Tablet PO ×2 (08:11→20:54)
[2018-08-15] MEDS: predniSONE 20 MG Tablet 40 MG PO (08:11)
[2018-08-15] MEDS: Sertraline 100 MG Tablet PO (08:11)
[2018-08-15] MEDS: Losartan Potassium 50 MG Tablet PO (08:11)
[2018-08-15] MEDS: Furosemide 40 MG Tablet PO (08:11)
[2018-08-15] MEDS: Carvedilol 25 MG Tablet PO ×2 (08:12→20:55)
[2018-08-15] MEDS: Ferrous Sulfate 325 MG Tablet PO ×3 (08:12→17:39)
[2018-08-15] MEDS: busPIRone 5 MG Tablet PO ×3 (08:12→20:54)
[2018-08-15] MEDS: Multivitamins,Ther W-Minerals Tablet 1 TABLET PO (08:18)
[2018-08-15] MEDS: Menthol/Lanolin/Calamine/Znox 113 GM Tube 1 APPLIC TOPICAL ×2 (08:19→21:00)
[2018-08-15 11:46] LABS: Bedside Glucose 159 mg/dL (70-110)
--- NOTE | 2018-08-15 15:11 | PN.NEURO_ITS ---
Subjective: No Issues overnight. Care discussed with nursing staff. - Physical Exam General: Alert HEENT: Normocephalic Neck: Supple Lungs: Normal air movement Cardiovascular: Normal S1, Normal S2 Abdomen: Bowel Sounds Present Extremities: No cyanosis Neurological: - - consious, alert, AoAx3, CN 2-12 grossly intact, power 5/5 both UE, 3/5 right LE, 2/5 left LE, Reflexes + B/L B/S/T and areflexia B/L K/A, gait deferred, no sensory loss, no cerebellar signs UE. Psych/Mental Status: Normal Affect Vital Signs Temp Pulse Resp BP Pulse Ox 97.8 F 69 18 121/69 H 97 08/15/18 08:20 08/15/18 08:20 08/15/18 08:20 08/15/18 08:20 08/15/18 08:20 Oxygen Flow Rate (L/min) 96 Oxygen Delivery Method Room Air Weight: 111.1 kg Body Mass Index (BMI) 47.2 Intake and Output for Last 24 Hours 08/13/18 08/14/18 08/15/18 23:59 23:59 23:59 Intake Total 1240 / 1240 1220 / 1220 330 / 330 Output Total 1525 / 1525 1150 / 1150 900 / 900 Balance -285 / -285 70 / 70 -570 / -570 POC Glucose 08/15/18 08/15/18 08/15/18 11:36 06:57 02:17 POC Glucose 159 H 150 H 180 H 08/14/18 08/14/18 22:28 17:20 POC Glucose 236 H 135 H Medical Necessity - Tobacco Use Smoking Status: Never smoker Tobacco Use: Non-smoker Assessment/Plan All Active Problems Debility (Acute) 58 yr F with PMH HTN, HLD, DM, CKD, Obesity re-admitted to [facility] on 07/28/18 s/p debility post B/L LE weakness and falls, for > 3 hrs therapy daily, with a goal of returning back home at or near her prior level of functional independence. Per patient she started having difficulty walking, with frequent falls, with bilateral LE weakness, gradually progressive over the past few months around last December 2017, with right foot drop, admitted initially to [facility] hospital on 06/14/2018, then to [facility] on 06/20/2018. NCS reported to show demyelinating features with conduction block consistent with CIDP, started on IV Solumedrol 1 g daily for 5 days following which patient felt she was doing better, continued on Prednisone 60 mg daily, IVIG avoided due to CKD, Rheumatological work up negative. LP, Lyme's ab testing, West Nile AB testing was negative. LP done showed WBCs-11, RBCs-0, Protein-33. MRI brain reported nothing acute, MRI C spine reported to show Broad-based midline and para midline disc herniation at C5-6 more prominent on the left side impinging on the left C6 nerve root and MRI L spine reported to show Lumbar spondylosis with disc herniations and foraminal narrowing at L4-5 and L5-S1. Patient was later discharged to [facility] on 07/16/18 for plasmapheresis for worsening LE weakness. She is followed by nephrology for CKD and is planned to see vascular surgery as outpatient for fistula placement. Currently maintained on daily prednisone. Plan -Physical therapy for gait and balance -Occupational Therapy for ADLs -As needed analgesics -Bowel protocol -DVT prophylaxis: SCDs, Lovenox -GI prophylaxis- on Pantoprazole. -CIDP - On Prednisone 40 mg PO once daily. Slow taper of steroid as outpatient. On GI prophylaxis and on Calcium -Hypertension - well controlled and stable on current medication of Norvasc,Lasix and Hydralazine -HLD - continue home dose of Lipitor -DM type II - blood sugars ACHS, Moderate sliding scale, On Insulin -CKD-Nephrology consult, avoid nephrotoxic drugs, on d/c follow up appointment with Dr. Payan for Fistula placement -Obesity - BMI is 44.7, encourage weight loss, consult nutrition, documentation of snoring with obesity, outpatient sleep study on discharge. -Depression- on Zoloft and Buspar -Fall precautions -Further medical management per hospitalist recommendations -Follow up with PCP, Nephrology, Vascular surgery, spine surgery and Neurology as outpatient following discharge
[2018-08-15 17:40] LABS: Bedside Glucose 176 mg/dL (70-110)
[2018-08-15] MEDS: Atorvastatin Calcium 20 MG Tablet PO (20:54)
[2018-08-15] MEDS: Montelukast 10 MG Tablet PO (20:54)
[2018-08-15] MEDS: Gabapentin 300 MG Capsule PO (20:55)
[2018-08-15 21:11] LABS: Bedside Glucose 194 mg/dL (70-110)
[2018-08-16] MEDS: Insulin Lispro 100 UNIT/ML INSULN.PEN SC ×5 (01:45→22:51)
[2018-08-16 01:51] LABS: Bedside Glucose 226 mg/dL (70-110)
[2018-08-16] MEDS: Enoxaparin 30 MG/0.3 ML Syringe SC (05:41)
[2018-08-16] MEDS: busPIRone 5 MG Tablet PO ×3 (05:41→22:51)
[2018-08-16 06:01] LABS: Hematocrit 21.5 % (37-47); Hemoglobin 7.2 g/dl (12.0-15.0); Mean Corp Hgb Conc 33.5 g/gl (32-36); Mean Corpuscular Hgb 27.5 pg (27.0-32.0); Mean Corpuscular Volume 82.1 fL (81-99); Mean Platelet Vol. 10.9 fl (6.2-12.0); Platelet Count 141 K/mm3 (150-450); RBC Distribution Width CV 14.4 % (11.6-14.6); Red Blood Count 2.62 M/mm3 (4.2-5.4); White Blood Count 7.5 K/mm3 (4.4-11.0)
[2018-08-16 06:02] LABS: Scan Indicated on CBC? Y/N NO
[2018-08-16 06:18] LABS: Albumin, Serum 2.6 g/dL (3.2-5.0); BUN 137 mg/dL (7-18); BUN/Creat Ratio 48.6 RATIO (10-20); Calcium,Total 7.9 mg/dL (8.5-10.1); Chloride 99 mmol/L (98-107); Creatinine, Serum 2.82 mg/dL (0.55-1.02); EST Glomerular Filtration Rate 18 mL/min (>60); Est Glom Filt Rate - Afr Amer 22 mL/min (>60); Estimated Creatinine Clearance 16.81 ml/min; Glucose 171 mg/dL (74-106); Phosphorus 4.6 mg/dL (2.5-4.9); Potassium 3.4 mmol/L (3.5-5.1); Sodium Level 136 mmol/L (136-145)
--- NOTE | 2018-08-16 06:31 | NURSING ---
Lab called with BUN [address] Barber at this time.
[2018-08-16 06:35] LABS: Bedside Glucose 177 mg/dL (70-110)
[2018-08-16 07:58] VITALS: BP 123/61; PULSE 65; RESP 16; TEMP 37.2; O2SAT 95
[2018-08-16 08:07] VITALS: PULSE 65
[2018-08-16] MEDS: hydrALAZINE 50 MG Tablet 75 MG PO (08:07)
[2018-08-16] MEDS: Calcium (Elemental) 500 MG Tablet PO ×2 (08:08→22:52)
[2018-08-16] MEDS: Ferrous Sulfate 325 MG Tablet PO ×3 (08:08→17:56)
[2018-08-16] MEDS: predniSONE 20 MG Tablet 40 MG PO (08:08)
[2018-08-16] MEDS: Sertraline 100 MG Tablet PO (08:08)
[2018-08-16] MEDS: Pantoprazole Sodium 20 MG Tablet PO (08:08)
[2018-08-16] MEDS: Carvedilol 25 MG Tablet PO ×2 (08:08→22:51)
[2018-08-16] MEDS: Multivitamins,Ther W-Minerals Tablet 1 TABLET PO (08:08)
[2018-08-16] MEDS: Losartan Potassium 50 MG Tablet PO (08:08)
[2018-08-16] MEDS: Insulin Lispro 100 UNIT/ML INSULN.PEN 12 UNIT SC ×3 (08:09→17:56)
[2018-08-16] MEDS: Menthol/Lanolin/Calamine/Znox 113 GM Tube 1 APPLIC TOPICAL ×2 (09:09→22:51)
--- NOTE | 2018-08-16 09:29 | PCM.PN.REN ---
Subjective: denies SOB, has nausea with medications on an empty stomach. Complains of fatigue, somnolence. - Physical Exam General: Alert, Oriented x3, Cooperative, No apparent distress Oral: Dry Mucosa Lungs: Clear to auscultation Cardiovascular: Regular rate Extremities: Edema - mild edema Musculoskeletal: No Muscle Wasting, - - BLE weakness Neurological: - - CIDP, continued LE weakness Psych/Mental Status: Normal Affect, Appropriate, Alert and oriented to time, place, person, mood and affect Vital Signs Temp Pulse Resp BP Pulse Ox 98.9 F 65 16 123/61 H 95 08/16/18 07:58 08/16/18 08:07 08/16/18 07:58 08/16/18 07:58 08/16/18 07:58 Oxygen Flow Rate (L/min) 96 Oxygen Delivery Method Room Air Weight: 111.1 kg Body Mass Index (BMI) 47.2 Intake and Output for Last 24 Hours 08/14/18 08/15/18 08/16/18 23:59 23:59 23:59 Intake Total 1220 / 1220 330 / 330 250 / 250 Output Total 1150 / 1150 900 / 900 550 / 550 Balance 70 / 70 -570 / -570 -300 / -300 Laboratory Tests Past 24 Hrs 08/16/18 08/16/18 05:45 05:45 WBC 7.5 RBC 2.62 L Hgb 7.2 L Hct 21.5 L MCV 82.1 MCH 27.5 MCHC 33.5 RDW 14.4 RDW Differential 41.0 Plt Count 141 L MPV 10.9 Sodium 136 Potassium 3.4 L Chloride 99 Carbon Dioxide 23.0 BUN 137 H* Creatinine 2.82 H Estim Creat Clear Calc 16.81 Est GFR (MDRD) Af Amer 22 L Est GFR (MDRD) Non-Af 18 L BUN/Creatinine Ratio 48.6 H Glucose 171 H Calcium 7.9 L Phosphorus 4.6 Albumin 2.6 L POC Glucose 08/16/18 08/16/18 08/15/18 06:12 01:42 21:02 POC Glucose 177 H 226 H 194 H 08/15/18 08/15/18 17:38 11:36 POC Glucose 176 H 159 H Medical Necessity - Tobacco Use Smoking Status: Never smoker Tobacco Use: Non-smoker Assessment/Plan All Active Problems Debility (Acute) 1. 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 Creatinine elevated from baseline likely due to prerenal event, anemia. Stop lasix. Fatigue likely due to anemia, dehydration, CKD 2. DM type II on insulin therapy. Started low dose losartan for diabetic proteinuria 3. Hypertension with relatively stable blood pressures 4. 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 5. Lower extremity edema likely due to high-dose steroids and calcium channel airam. Discontinued amlodipine. 6. Anemia hgb low at 7.2g check iron level. Start epo 10K today. May need prbc
--- NOTE | 2018-08-16 10:58 | PN.NEURO_ITS ---
Subjective: No Issues overnight. Care discussed with nursing staff. Staffed in team meeting today, all questions were answered. Further therapy details per PT/OT notes. Per PT she has been showing improvement compared to last week. - Physical Exam General: Alert HEENT: Normocephalic Neck: Supple Lungs: Normal air movement Cardiovascular: Normal S1, Normal S2 Abdomen: Bowel Sounds Present Extremities: No cyanosis Neurological: - - consious, alert, AoAx3, CN 2-12 grossly intact, power 5/5 both UE, 3/5 right LE, 2/5 left LE, Reflexes + B/L B/S/T and areflexia B/L K/A, gait deferred, no sensory loss, no cerebellar signs UE. Psych/Mental Status: Normal Affect Vital Signs Temp Pulse Resp BP Pulse Ox 98.9 F 65 16 123/61 H 95 08/16/18 07:58 08/16/18 08:07 08/16/18 07:58 08/16/18 07:58 08/16/18 07:58 Oxygen Flow Rate (L/min) 96 Oxygen Delivery Method Room Air Weight: 111.1 kg Body Mass Index (BMI) 47.2 Intake and Output for Last 24 Hours 08/14/18 08/15/18 08/16/18 23:59 23:59 23:59 Intake Total 1220 / 1220 330 / 330 690 / 690 Output Total 1150 / 1150 900 / 900 550 / 550 Balance 70 / 70 -570 / -570 140 / 140 Laboratory Tests Past 24 Hrs 08/16/18 08/16/18 05:45 05:45 WBC 7.5 RBC 2.62 L Hgb 7.2 L Hct 21.5 L MCV 82.1 MCH 27.5 MCHC 33.5 RDW 14.4 RDW Differential 41.0 Plt Count 141 L MPV 10.9 Sodium 136 Potassium 3.4 L Chloride 99 Carbon Dioxide 23.0 BUN 137 H* Creatinine 2.82 H Estim Creat Clear Calc 16.81 Est GFR (MDRD) Af Amer 22 L Est GFR (MDRD) Non-Af 18 L BUN/Creatinine Ratio 48.6 H Glucose 171 H Calcium 7.9 L Phosphorus 4.6 Albumin 2.6 L POC Glucose 08/16/18 08/16/18 08/15/18 06:12 01:42 21:02 POC Glucose 177 H 226 H 194 H 08/15/18 08/15/18 17:38 11:36 POC Glucose 176 H 159 H Medical Necessity - Tobacco Use Smoking Status: Never smoker Tobacco Use: Non-smoker Assessment/Plan All Active Problems Debility (Acute) 58 yr F with PMH HTN, HLD, DM, CKD, Obesity re-admitted to [facility] on 07/28/18 s/p debility post B/L LE weakness and falls, for > 3 hrs therapy daily, with a goal of returning back home at or near her prior level of functional independence. Per patient she started having difficulty walking, with frequent falls, with bilateral LE weakness, gradually progressive over the past few months around last December 2017, with right foot drop, admitted initially to [facility] hospital on 06/14/2018, then to [facility] on 06/20/2018. NCS reported to show demyelinating features with conduction block consistent with CIDP, started on IV Solumedrol 1 g daily for 5 days following which patient felt she was doing better, continued on Prednisone 60 mg daily, IVIG avoided due to CKD, Rheumatological work up negative. LP, Lyme's ab testing, West Nile AB testing was negative. LP done showed WBCs-11, RBCs-0, Protein-33. MRI brain reported nothing acute, MRI C spine reported to show Broad-based midline and para midline disc herniation at C5-6 more prominent on the left side impinging on the left C6 nerve root and MRI L spine reported to show Lumbar spondylosis with disc herniations and foraminal narrowing at L4-5 and L5-S1. Patient was later discharged to [facility] on 07/16/18 for plasmapheresis for worsening LE weakness. She is followed by nephrology for CKD and is planned to see vascular surgery as outpatient for fistula placement. Currently maintained on daily prednisone. Plan -Physical therapy for gait and balance -Occupational Therapy for ADLs -As needed analgesics -Bowel protocol -DVT prophylaxis: SCDs, Lovenox -GI prophylaxis- on Pantoprazole. -Hoarseness of voice- new complaint, voice rest, humidifier therapy, ENT consult as outpatient. -CIDP - On Prednisone 40 mg PO once daily. Slow taper of steroid as outpatient. On GI prophylaxis and on Calcium -Hypertension - well controlled and stable on current medication of Coreg, losartan and Hydralazine -HLD - continue home dose of Lipitor -DM type II - blood sugars ACHS, Moderate sliding scale, On Insulin -CKD-Nephrology consult, avoid nephrotoxic drugs, on d/c follow up appointment with Dr. Payan for Fistula placement. Dr. Lew following, decrease in HB and slight raise in creatinine to 2.8 (08/16/18), medications adjusted, lasix, amlodipine discontinued and Procrit one dose given by Nephrology -Obesity - BMI is 44.7, encourage weight loss, consult nutrition, documentation of snoring with obesity, outpatient sleep study on discharge. -Depression- on Zoloft and Buspar -Fall precautions -Further medical management per hospitalist recommendations -Follow up with PCP, Nephrology, Vascular surgery, spine surgery, ENT and Neurology as outpatient following discharge
[2018-08-16 12:05] LABS: Bedside Glucose 180 mg/dL (70-110)
--- NOTE | 2018-08-16 12:56 | CASEMGMT ---
Team meeting held. Patient present as well as patient family. No discharge date set at this time. Patient to continue with further care and treatment on the Inpatient Rehab Unit. Plan is to continue with patient as patient has been showing progress. Patient to discharge to home with family vs. SNF pending level of care needs. Support given. Will continue to follow. Raj MADRID, JOSE
--- NOTE | 2018-08-16 13:02 | CASEMGMT ---
Insurance Clinical information sent. Pending continued stay approval. Auth#[id number] Raj MADRID, JOSE
--- NOTE | 2018-08-16 13:03 | CASEMGMT ---
Social Work Patient approved Medicaid. Medicaid billing number: [id number]. Raj MADRID, JOSE
[2018-08-16 14:37] VITALS: BP 133/68; PULSE 61
[2018-08-16] MEDS: hydrALAZINE 50 MG Tablet PO ×2 (14:37→22:50)
[2018-08-16 17:41] LABS: Bedside Glucose 186 mg/dL (70-110)
[2018-08-16 20:27] VITALS: BP 140/68; PULSE 59; RESP 16; TEMP 36.6; O2SAT 98
[2018-08-16 22:50] VITALS: PULSE 70
[2018-08-16] MEDS: Atorvastatin Calcium 20 MG Tablet PO (22:52)
[2018-08-16] MEDS: Gabapentin 300 MG Capsule PO (22:52)
[2018-08-16] MEDS: Montelukast 10 MG Tablet PO (22:52)
[2018-08-16 23:21] LABS: Bedside Glucose 330 mg/dL (70-110)
[2018-08-17] MEDS: Insulin Lispro 100 UNIT/ML INSULN.PEN SC ×5 (02:22→20:52)
[2018-08-17 02:36] LABS: Bedside Glucose 272 mg/dL (70-110)
--- NOTE | 2018-08-17 03:22 | NURSING ---
REVIEWED AND AGREE WITH [employer]SM[employer]S FIM AND HANDOFF CHARTING.
[2018-08-17 06:33] VITALS: PULSE 60
[2018-08-17] MEDS: Enoxaparin 30 MG/0.3 ML Syringe SC (06:33)
[2018-08-17] MEDS: busPIRone 5 MG Tablet PO ×3 (06:33→20:55)
[2018-08-17] MEDS: hydrALAZINE 50 MG Tablet PO ×3 (06:33→20:55)
[2018-08-17 07:05] LABS: Bedside Glucose 173 mg/dL (70-110)
[2018-08-17] MEDS: Insulin Lispro 100 UNIT/ML INSULN.PEN 12 UNIT SC ×3 (08:14→17:21)
[2018-08-17] MEDS: Sertraline 100 MG Tablet PO (08:15)
[2018-08-17] MEDS: Calcium (Elemental) 500 MG Tablet PO ×2 (08:15→20:54)
[2018-08-17] MEDS: Pantoprazole Sodium 20 MG Tablet PO (08:15)
[2018-08-17] MEDS: predniSONE 20 MG Tablet 40 MG PO (08:15)
[2018-08-17] MEDS: Carvedilol 25 MG Tablet PO ×2 (08:15→20:55)
[2018-08-17] MEDS: Multivitamins,Ther W-Minerals Tablet 1 TABLET PO (08:15)
[2018-08-17] MEDS: Ferrous Sulfate 325 MG Tablet PO ×3 (08:15→17:20)
[2018-08-17] MEDS: Losartan Potassium 50 MG Tablet PO (08:18)
[2018-08-17] MEDS: Menthol/Lanolin/Calamine/Znox 113 GM Tube 1 APPLIC TOPICAL ×2 (08:18→20:56)
[2018-08-17 08:37] VITALS: BP 137/69; PULSE 60; RESP 18; TEMP 36.8; O2SAT 96
[2018-08-17 09:04] LABS: Hematocrit 22.8 % (37-47); Hemoglobin 7.7 g/dl (12.0-15.0); Mean Corp Hgb Conc 33.8 g/gl (32-36); Mean Platelet Vol. 10.6 fl (6.2-12.0); Platelet Count 155 K/mm3 (150-450); RBC Distribution Width CV 14.9 % (11.6-14.6); RBC Distribution Width SD 43.1 fl (35.1-43.9); Red Blood Count 2.85 M/mm3 (4.2-5.4); White Blood Count 8.2 K/mm3 (4.4-11.0)
[2018-08-17 09:05] LABS: Scan Indicated on CBC? Y/N NO
[2018-08-17 09:30] LABS: BNP,B-Type NATRIURETIC PEPTIDE 155.2 pg/mL (0-100)
[2018-08-17 09:34] LABS: PTHIN 201.9 pg/mL (18.4-80.1)
--- NOTE | 2018-08-17 10:39 | PCM.PN.NEU ---
Subjective: No Issues overnight. Care discussed with nursing staff - Physical Exam General: Alert HEENT: Normocephalic Neck: Supple Lungs: Normal air movement Cardiovascular: Normal S1, Normal S2 Abdomen: Bowel Sounds Present Extremities: No cyanosis Neurological: - - consious, alert, AoAx3, CN 2-12 grossly intact, power 5/5 both UE, 3/5 right LE, 2/5 left LE, Reflexes + B/L B/S/T and areflexia B/L K/A, gait deferred, no sensory loss, no cerebellar signs UE. Psych/Mental Status: Normal Affect Vital Signs Temp Pulse Resp BP Pulse Ox 98.3 F 60 18 137/69 H 96 08/17/18 08:37 08/17/18 08:37 08/17/18 08:37 08/17/18 08:37 08/17/18 08:37 Oxygen Flow Rate (L/min) 96 Oxygen Delivery Method Room Air Weight: 111.1 kg Body Mass Index (BMI) 47.2 Intake and Output for Last 24 Hours 08/15/18 08/16/18 08/17/18 23:59 23:59 23:59 Intake Total 330 / 330 1790 / 1790 Output Total 900 / 900 975 / 975 325 / 325 Balance -570 / -570 815 / 815 -325 / -325 Laboratory Tests Past 24 Hrs 08/17/18 08/17/18 08/17/18 08:25 08:25 08:25 WBC RBC Hgb Hct MCV MCH MCHC RDW RDW Differential Plt Count MPV Sodium Pending Potassium Pending Chloride Pending Carbon Dioxide Pending Anion Gap Pending BUN Pending Creatinine Pending Est GFR (MDRD) Af Amer Pending Est GFR (MDRD) Non-Af Pending BUN/Creatinine Ratio Pending Glucose Pending Calcium Pending Iron Pending Ferritin Pending B-Natriuretic Peptide 155.2 H PTH Intact 201.9 H 08/17/18 08:25 WBC 8.2 RBC 2.85 L Hgb 7.7 L Hct 22.8 L MCV 80.0 L MCH 27.0 MCHC 33.8 RDW 14.9 H RDW Differential 43.1 Plt Count 155 MPV 10.6 Sodium Potassium Chloride Carbon Dioxide Anion Gap BUN Creatinine Est GFR (MDRD) Af Amer Est GFR (MDRD) Non-Af BUN/Creatinine Ratio Glucose Calcium Iron Ferritin B-Natriuretic Peptide PTH Intact POC Glucose 08/17/18 08/17/18 08/16/18 06:27 02:20 22:47 POC Glucose 173 H 272 H 330 H 08/16/18 08/16/18 17:25 11:58 POC Glucose 186 H 180 H Medical Necessity - Tobacco Use Smoking Status: Never smoker Tobacco Use: Non-smoker Assessment/Plan All Active Problems Debility (Acute) 58 yr F with PMH HTN, HLD, DM, CKD, Obesity re-admitted to [facility] on 07/28/18 s/p debility post B/L LE weakness and falls, for > 3 hrs therapy daily, with a goal of returning back home at or near her prior level of functional independence. Per patient she started having difficulty walking, with frequent falls, with bilateral LE weakness, gradually progressive over the past few months around last December 2017, with right foot drop, admitted initially to [facility] hospital on 06/14/2018, then to [facility] on 06/20/2018. NCS reported to show demyelinating features with conduction block consistent with CIDP, started on IV Solumedrol 1 g daily for 5 days following which patient felt she was doing better, continued on Prednisone 60 mg daily, IVIG avoided due to CKD, Rheumatological work up negative. LP, Lyme's ab testing, West Nile AB testing was negative. LP done showed WBCs-11, RBCs-0, Protein-33. MRI brain reported nothing acute, MRI C spine reported to show Broad-based midline and para midline disc herniation at C5-6 more prominent on the left side impinging on the left C6 nerve root and MRI L spine reported to show Lumbar spondylosis with disc herniations and foraminal narrowing at L4-5 and L5-S1. Patient was later discharged to [facility] on 07/16/18 for plasmapheresis for worsening LE weakness. She is followed by nephrology for CKD and is planned to see vascular surgery as outpatient for fistula placement. Currently maintained on daily prednisone. Plan -Physical therapy for gait and balance -Occupational Therapy for ADLs -As needed analgesics -Bowel protocol -DVT prophylaxis: SCDs, Lovenox -GI prophylaxis- on Pantoprazole. -Hoarseness of voice- new complaint, voice rest, humidifier therapy, ENT consult as outpatient. -CIDP - On Prednisone 40 mg PO once daily. Slow taper of steroid as outpatient. On GI prophylaxis and on Calcium -Hypertension - well controlled and stable on current medication of Coreg, losartan and Hydralazine -HLD - continue home dose of Lipitor -DM type II - blood sugars ACHS, Moderate sliding scale, On Insulin -CKD-Nephrology consult, avoid nephrotoxic drugs, on d/c follow up appointment with Dr. Payan for Fistula placement. Dr. Lew following, decrease in HB and slight raise in creatinine to 2.8 (08/16/18), medications adjusted, lasix, amlodipine discontinued and Procrit one dose given by Nephrology -Obesity - BMI is 44.7, encourage weight loss, consult nutrition, documentation of snoring with obesity, outpatient sleep study on discharge. -Depression- on Zoloft and Buspar -Fall precautions -Further medical management per hospitalist recommendations -Follow up with PCP, Nephrology, Vascular surgery, spine surgery, ENT and Neurology as outpatient following discharge
--- NOTE | 2018-08-17 10:46 | PN.NEURO_ITS ---
Subjective: No Issues overnight. Care discussed with nursing staff - Physical Exam General: Alert HEENT: Normocephalic Neck: Supple Lungs: Normal air movement Cardiovascular: Normal S1, Normal S2 Abdomen: Bowel Sounds Present Extremities: No cyanosis Neurological: - - consious, alert, AoAx3, CN 2-12 grossly intact, power 5/5 both UE, 3/5 right LE, 2/5 left LE, Reflexes + B/L B/S/T and areflexia B/L K/A, gait deferred, no sensory loss, no cerebellar signs UE. Psych/Mental Status: Normal Affect Vital Signs Temp Pulse Resp BP Pulse Ox 98.3 F 60 18 137/69 H 96 08/17/18 08:37 08/17/18 08:37 08/17/18 08:37 08/17/18 08:37 08/17/18 08:37 Oxygen Flow Rate (L/min) 96 Oxygen Delivery Method Room Air Weight: 111.1 kg Body Mass Index (BMI) 47.2 Intake and Output for Last 24 Hours 08/15/18 08/16/18 08/17/18 23:59 23:59 23:59 Intake Total 330 / 330 1790 / 1790 Output Total 900 / 900 975 / 975 325 / 325 Balance -570 / -570 815 / 815 -325 / -325 Laboratory Tests Past 24 Hrs 08/17/18 08/17/18 08/17/18 08:25 08:25 08:25 WBC RBC Hgb Hct MCV MCH MCHC RDW RDW Differential Plt Count MPV Sodium Pending Potassium Pending Chloride Pending Carbon Dioxide Pending Anion Gap Pending BUN Pending Creatinine Pending Est GFR (MDRD) Af Amer Pending Est GFR (MDRD) Non-Af Pending BUN/Creatinine Ratio Pending Glucose Pending Calcium Pending Iron Pending Ferritin Pending B-Natriuretic Peptide 155.2 H PTH Intact 201.9 H 08/17/18 08:25 WBC 8.2 RBC 2.85 L Hgb 7.7 L Hct 22.8 L MCV 80.0 L MCH 27.0 MCHC 33.8 RDW 14.9 H RDW Differential 43.1 Plt Count 155 MPV 10.6 Sodium Potassium Chloride Carbon Dioxide Anion Gap BUN Creatinine Est GFR (MDRD) Af Amer Est GFR (MDRD) Non-Af BUN/Creatinine Ratio Glucose Calcium Iron Ferritin B-Natriuretic Peptide PTH Intact POC Glucose 08/17/18 08/17/18 08/16/18 06:27 02:20 22:47 POC Glucose 173 H 272 H 330 H 08/16/18 08/16/18 17:25 11:58 POC Glucose 186 H 180 H Medical Necessity - Tobacco Use Smoking Status: Never smoker Tobacco Use: Non-smoker Assessment/Plan All Active Problems Debility (Acute) 58 yr F with PMH HTN, HLD, DM, CKD, Obesity re-admitted to [facility] on 07/28/18 s/p debility post B/L LE weakness and falls, for > 3 hrs therapy daily, with a goal of returning back home at or near her prior level of functional independence. Per patient she started having difficulty walking, with frequent falls, with bilateral LE weakness, gradually progressive over the past few months around last December 2017, with right foot drop, admitted initially to [facility] hospital on 06/14/2018, then to [facility] on 06/20/2018. NCS reported to show demyelinating features with conduction block consistent with CIDP, started on IV Solumedrol 1 g daily for 5 days following which patient felt she was doing better, continued on Prednisone 60 mg daily, IVIG avoided due to CKD, Rheumatological work up negative. LP, Lyme's ab testing, West Nile AB testing was negative. LP done showed WBCs-11, RBCs-0, Protein-33. MRI brain reported nothing acute, MRI C spine reported to show Broad-based midline and para midline disc herniation at C5-6 more prominent on the left side impinging on the left C6 nerve root and MRI L spine reported to show Lumbar spondylosis with disc herniations and foraminal narrowing at L4-5 and L5-S1. Patient was later discharged to [facility] on 07/16/18 for plasmapheresis for worsening LE weakness. She is followed by nephrology for CKD and is planned to see vascular surgery as outpatient for fistula placement. Currently maintained on daily prednisone. Plan -Physical therapy for gait and balance -Occupational Therapy for ADLs -As needed analgesics -Bowel protocol -DVT prophylaxis: SCDs, Lovenox -GI prophylaxis- on Pantoprazole. -Hoarseness of voice- new complaint, voice rest, humidifier therapy, ENT consult as outpatient. -CIDP - On Prednisone 40 mg PO once daily. Slow taper of steroid as outpatient. On GI prophylaxis and on Calcium -Hypertension - well controlled and stable on current medication of Coreg, losartan and Hydralazine -HLD - continue home dose of Lipitor -DM type II - blood sugars ACHS, Moderate sliding scale, On Insulin -CKD-Nephrology consult, avoid nephrotoxic drugs, on d/c follow up appointment with Dr. Payan for Fistula placement. Dr. Lew following, decrease in HB and slight raise in creatinine to 2.8 (08/16/18), medications adjusted, lasix, amlodipine discontinued and Procrit one dose given by Nephrology -Obesity - BMI is 44.7, encourage weight loss, consult nutrition, documentation of snoring with obesity, outpatient sleep study on discharge. -Depression- on Zoloft and Buspar -Fall precautions -Further medical management per hospitalist recommendations -Follow up with PCP, Nephrology, Vascular surgery, spine surgery, ENT and Neurology as outpatient following discharge
--- NOTE | 2018-08-17 10:54 | CASEMGMT ---
Insurance Continued stay approved with last covered day or update due on 08/23/18. Pt has used 47 out of 60 allowed days in the . Auth # [id number] BERNARD Finney
[2018-08-17 11:04] LABS: Anion Gap 11 (5-15); BUN 130 mg/dL (7-18); BUN/Creat Ratio 48.1 RATIO (10-20); Calcium,Total 7.6 mg/dL (8.5-10.1); Chloride 97 mmol/L (98-107); EST Glomerular Filtration Rate 19 mL/min (>60); Est Glom Filt Rate - Afr Amer 23 mL/min (>60); Estimated Creatinine Clearance 17.56 ml/min; Ferritin 127 ng/mL (8-252); Glucose 245 mg/dL (74-106); Iron 50 ug/dL (50-170); Potassium 3.1 mmol/L (3.5-5.1); Sodium Level 130 mmol/L (136-145)
--- NOTE | 2018-08-17 11:07 | NURSING ---
Lab called with Critical lab BUN 130, This RN called Dr. Lew gave info. NNO's at this time, Dr. Lew stated she will evaluate info.
[2018-08-17 11:51] LABS: Bedside Glucose 171 mg/dL (70-110)
[2018-08-17] MEDS: Polyethylene Glycol 3350 17 GM PACKET PO (12:15)
--- NOTE | 2018-08-17 14:42 | PCM.PN.REN ---
Subjective: Creatinine slightly improved after Lasix discontinued. BUN elevated on steroid therapy. Will guaiac stools for occult blood. Blood pressure stable. Restarted on ARB for diabetic nephropathy with proteinuria. Sodium level low at 130 likely due to increased water intake and ADH secretion. I had advised her to cut back her free water intake to less than 2 L - Physical Exam General: Alert, Oriented x3, Cooperative, No apparent distress Lungs: Clear to auscultation Cardiovascular: Regular rate Abdomen: Bowel Sounds Present, Soft, Non Tender, Obese Extremities: Edema Neurological: - - Bilateral lower extremity weakness 2/5 motor strength Psych/Mental Status: Normal Affect, Appropriate, Alert and oriented to time, place, person, mood and affect Vital Signs Temp Pulse Resp BP Pulse Ox 98.3 F 60 18 137/69 H 96 08/17/18 08:37 08/17/18 08:37 08/17/18 08:37 08/17/18 08:37 08/17/18 08:37 Oxygen Flow Rate (L/min) 96 Oxygen Delivery Method Room Air Weight: 111.1 kg Body Mass Index (BMI) 47.2 Intake and Output for Last 24 Hours 08/15/18 08/16/18 08/17/18 23:59 23:59 23:59 Intake Total 330 / 330 1790 / 1790 Output Total 900 / 900 975 / 975 325 / 325 Balance -570 / -570 815 / 815 -325 / -325 Laboratory Tests Past 24 Hrs 08/17/18 08/17/18 08/17/18 08:25 08:25 08:25 WBC RBC Hgb Hct MCV MCH MCHC RDW RDW Differential Plt Count MPV Sodium 130 L Potassium 3.1 L Chloride 97 L Carbon Dioxide 22.0 Anion Gap 11 BUN 130 H* Creatinine 2.70 H Estim Creat Clear Calc 17.56 Est GFR (MDRD) Af Amer 23 L Est GFR (MDRD) Non-Af 19 L BUN/Creatinine Ratio 48.1 H Glucose 245 H Calcium 7.6 L Iron 50 Ferritin 127 B-Natriuretic Peptide 155.2 H PTH Intact 201.9 H 08/17/18 08:25 WBC 8.2 RBC 2.85 L Hgb 7.7 L Hct 22.8 L MCV 80.0 L MCH 27.0 MCHC 33.8 RDW 14.9 H RDW Differential 43.1 Plt Count 155 MPV 10.6 Sodium Potassium Chloride Carbon Dioxide Anion Gap BUN Creatinine Estim Creat Clear Calc Est GFR (MDRD) Af Amer Est GFR (MDRD) Non-Af BUN/Creatinine Ratio Glucose Calcium Iron Ferritin B-Natriuretic Peptide PTH Intact POC Glucose 08/17/18 08/17/18 08/17/18 11:36 06:27 02:20 POC Glucose 171 H 173 H 272 H 08/16/18 08/16/18 22:47 17:25 POC Glucose 330 H 186 H Medical Necessity - Tobacco Use Smoking Status: Never smoker Tobacco Use: Non-smoker Assessment/Plan All Active Problems Debility (Acute) 1. 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 Creatinine slightly improved off Lasix. 2. DM type II on insulin therapy. Started low dose losartan for diabetic proteinuria 3. Hypertension with relatively stable blood pressures 4. 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 5. Lower extremity edema likely due to high-dose steroids and calcium channel airam. Discontinued amlodipine. 6. Anemia hgb improved to 7.7g. DUNCAN and IV iron ordered. 7. Hyponatremia due to increased free water intake and appropriate ADH secretion. Continue to monitor.
[2018-08-17 16:07] VITALS: BP 141/60; PULSE 63
[2018-08-17 16:31] LABS: Bedside Glucose 157 mg/dL (70-110)
--- NOTE | 2018-08-17 16:52 | PCM.PN.HOSP ---
Subjective: Patient was seen by stacker driver, Dr. Lew. Creatinine is slightly improved. Patient has been on chronic steroid and Lasix. Lasix already has been discontinued. She has CKD stage IV secondary to diabetic nephropathy. Objective: General: Alert, Oriented x3, Cooperative HEENT: Atraumatic, PERRLA, EOMI, Normocephalic Neck: Supple, No JVD, Negative Carotid Bruits Lungs: Clear to auscultation, Air Entry is diminished in both lung bases. Cardiovascular: Regular rate, Regular Rhythm, Normal S1, Normal S2, No murmurs Abdomen: Bowel Sounds Present, Soft, Non Tender, Non-Distended Extremities: No edema, Capillary Refill Less than 3 Seconds Skin: No rashes, No breakdown Musculoskeletal: Arthritic Changes, Lower extremity weakness present Neurological: Cranial nerves II-XII grossly intact Psych/Mental Status: Normal Affect, Appropriate Vitals/I&O's: Vital Signs Temp Pulse Resp BP Pulse Ox 98.3 F 63 18 141/60 H 96 08/17/18 08:37 08/17/18 16:07 08/17/18 08:37 08/17/18 16:07 08/17/18 08:37 Oxygen Flow Rate (L/min) 96 Oxygen Delivery Method Room Air Weight: 244 lb 14.937 oz Body Mass Index (BMI) 47.2 Intake and Output for Last 24 Hours 08/15/18 08/16/18 08/17/18 23:59 23:59 23:59 Intake Total 330 / 330 1790 / 1790 Output Total 900 / 900 975 / 975 325 / 325 Balance -570 / -570 815 / 815 -325 / -325 Laboratory Results 08/16/18 17:25: POC Glucose 186 H 08/16/18 22:47: POC Glucose 330 H 08/17/18 02:20: POC Glucose 272 H 08/17/18 06:27: POC Glucose 173 H 08/17/18 08:25: B-Natriuretic Peptide 155.2 H 08/17/18 08:25: Sodium 130 L, Potassium 3.1 L, Chloride 97 L, Carbon Dioxide 22.0, Anion Gap 11, BUN 130 H*, Creatinine 2.70 H, Estim Creat Clear Calc 17.56, Est GFR (MDRD) Af Amer 23 L, Est GFR (MDRD) Non-Af 19 L, BUN/Creatinine Ratio 48.1 H, Glucose 245 H, Calcium 7.6 L, Iron 50, Ferritin 127 08/17/18 08:25: PTH Intact 201.9 H 08/17/18 08:25: WBC 8.2, RBC 2.85 L, Hgb 7.7 L, Hct 22.8 L, MCV 80.0 L, MCH 27.0, MCHC 33.8, RDW 14.9 H, RDW Differential 43.1, Plt Count 155, MPV 10.6 08/17/18 11:36: POC Glucose 171 H 08/17/18 16:25: POC Glucose 157 H Current Medications Acetaminophen (Tylenol) 650 mg PO Q8H PRN PRN PRN Reason: PAIN Atorvastatin Calcium (Lipitor) 20 mg PO QHS [facility] Last Admin: 08/16/18 22:52 Dose: 20 mg Bisacodyl (Dulcolax) 10 mg RECTAL .PRN X 1 PRN PRN Reason: Constipation Bisacodyl (Dulcolax) 10 mg RECTAL .PRN X 1 PRN PRN Reason: Constipation Buspirone HCl (Buspar) 5 mg PO TID [facility] Last Admin: 08/17/18 16:06 Dose: 5 mg Calamine/Phenol (Calmoseptine Ointment) 1 applic TOPICAL BID [facility]; Protocol Last Admin: 08/17/18 08:18 Dose: 1 applicatio Calcium Carbonate (Os-Chinedu 500) 500 mg PO BID [facility] Last Admin: 08/17/18 08:15 Dose: 500 mg Carvedilol (Coreg) 25 mg PO BID [facility] Last Admin: 08/17/18 08:15 Dose: 25 mg Enoxaparin Sodium (Lovenox) 30 mg SC DAILY@0600 [facility] Last Admin: 08/17/18 06:33 Dose: 30 mg Ferrous Sulfate (Ferrous Sulfate) 325 mg PO TIDCM [facility] Last Admin: 08/17/18 12:16 Dose: 325 mg Gabapentin (Neurontin) 300 mg PO QHS [facility] Last Admin: 08/16/18 22:52 Dose: 300 mg Hydralazine HCl (Apresoline) 50 mg PO TID [facility] Last Admin: 08/17/18 16:07 Dose: 50 mg Hydrocortisone Acetate (Anusol Hc) 25 mg RECTAL BID PRN PRN PRN Reason: Hemorrhoids Last Admin: 07/30/18 13:54 Dose: 25 mg Insulin Glargine (Lantus ([facility])) 42 units SC BREAKFAST [facility] Last Admin: 08/17/18 08:15 Dose: 42 units Insulin Human Lispro (Humalog Kwikpen (Bk)) 0 unit SC ACHS & 0200 [facility]; Protocol Last Admin: 08/17/18 12:15 Dose: 2 u Insulin Human Lispro (Humalog Kwikpen ([facility])) 12 unit SC TIDAC [facility] Last Admin: 08/17/18 12:16 Dose: 12 u Losartan Potassium (Cozaar) 50 mg PO DAILY [facility] Last Admin: 08/17/18 08:18 Dose: 50 mg Magnesium Hydroxide (Milk Of Magnesia) 30 ml PO .PRN X 1 PRN PRN Reason: Constipation Montelukast Sodium (Singulair) 10 mg PO QHS [facility] Last Admin: 08/16/18 22:52 Dose: 10 mg Multivitamins/Minerals (Multivitamin With Minerals) 1 tablet PO DAILY@0800 [facility] Last Admin: 08/17/18 08:15 Dose: 1 tablet Ondansetron HCl (Zofran Odt) 4 mg PO Q8H PRN PRN PRN Reason: NAUSEA Pantoprazole Sodium (Protonix) 20 mg PO DAILY [facility] Last Admin: 08/17/18 08:15 Dose: 20 mg Polyethylene Glycol (Miralax) 17 gm PO DAILY [facility] Last Admin: 08/17/18 12:15 Dose: 17 gm Prednisone () 40 mg PO DAILY@0800 [facility] Last Admin: 08/17/18 08:15 Dose: 40 mg Senna/Docusate Sodium (Senokot-S, Leti-Colace) 2 tablet PO BID PRN PRN Reason: CONSTIPATION Sertraline HCl (Zoloft) 100 mg PO DAILY [facility] Last Admin: 08/17/18 08:15 Dose: 100 mg Sodium Chloride () 5 - 15 ml IV UD PRN PRN Reason: SALINE FLUSH Last Admin: 08/09/18 00:28 Dose: 10 ml Medical Necessity - Tobacco Use Smoking Status: Never smoker Tobacco Use: Non-smoker Assessment/Plan All Active Problems Debility (Acute) There is a 58-year female who is admitted on rehab after she had difficulty walking and frequent fall from May 2018 secondary gradual bilateral lower extremity weakness since December 2017. She was diagnosed with CIDP after NCS showed polyneuropathy and had high-dose steroid here in [facility] and was transferred to [facility] for plasmapheresis and had 5 treatments and transferred back to post rehab. 1. chronic inflammatory demyelinating polyneuropathy s/p 5 rounds of plasmapheresis at [facility] on PO prednisone neurology on board 2. HF of unknown etiology Lasix is discontinued. 2D echo on 08/06/18 reported as EF 65% with moderate concentric LVH. Evidence of diastolic dysfunction. No regional wall motion abnormality. Normal RV size and systolic function. Left atrium mildly enlarged. Moderate 2+ MR. Mild mitral stenosis. Mild diffuse mitral valve thickening. Mild TR, RVSP 49 mmHg. Normal aortic valve. 3. Right midlung nodule was ruled out on CT chest. CT chest did not show evidence of 1.7 cm nodule in the right midlung, seen on chest x-ray. CKD 4 secondary to diabetic nephropathy: Dr. Lew note reviewed. Lasix and steroid discontinued. 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 Sodium is 130. Potassium K3.1. Potassium replaced. 4. Type 2 diabetes mellitus: on lantus 37IU qhs and ISS. blood sugars well controlled incresase mealtime insulin coverage to SC lispro 10IU tid. continue high dose ISS accuchecks ACHS 5. HTN: fairly controlled On amlodipine 10 mg daily, carvedilol 25 mg daily, hydralazine 50 mg 3 times daily and losartan 50 mg daily. 6. Ecchymosis of lower abdomen: Likely due to Lovenox injections. Stable and asymptomatic. We will continue to monitor. 7. Bilateral lower extremity edema:on lasix DVT prophylaxis: lovenox. Laboratory Results 08/16/18 17:25: POC Glucose 186 H 08/16/18 22:47: POC Glucose 330 H 08/17/18 02:20: POC Glucose 272 H 08/17/18 06:27: POC Glucose 173 H 08/17/18 08:25: B-Natriuretic Peptide 155.2 H 08/17/18 08:25: Sodium 130 L, Potassium 3.1 L, Chloride 97 L, Carbon Dioxide 22.0, Anion Gap 11, BUN 130 H*, Creatinine 2.70 H, Estim Creat Clear Calc 17.56, Est GFR (MDRD) Af Amer 23 L, Est GFR (MDRD) Non-Af 19 L, BUN/Creatinine Ratio 48.1 H, Glucose 245 H, Calcium 7.6 L, Iron 50, Ferritin 127 08/17/18 08:25: PTH Intact 201.9 H 08/17/18 08:25: WBC 8.2, RBC 2.85 L, Hgb 7.7 L, Hct 22.8 L, MCV 80.0 L, MCH 27.0, MCHC 33.8, RDW 14.9 H, RDW Differential 43.1, Plt Count 155, MPV 10.6 08/17/18 11:36: POC Glucose 171 H 08/17/18 16:25: POC Glucose 157 H Code Visit Inpatient E&M: 92902 Subs Hosp L2
[2018-08-17] MEDS: 0.9% NaCl Peripheral Flush Adult/Peds IV (17:19)
[2018-08-17 20:44] VITALS: BP 139/74; PULSE 66; RESP 18; TEMP 36.4; O2SAT 96
[2018-08-17] MEDS: Gabapentin 300 MG Capsule PO (20:54)
[2018-08-17 20:55] VITALS: BP 139/74; PULSE 66
[2018-08-17] MEDS: Montelukast 10 MG Tablet PO (20:55)
[2018-08-17] MEDS: Atorvastatin Calcium 20 MG Tablet PO (20:55)
[2018-08-17 20:56] LABS: Bedside Glucose 151 mg/dL (70-110)
[2018-08-18 02:31] LABS: Bedside Glucose 154 mg/dL (70-110)
[2018-08-18] MEDS: Insulin Lispro 100 UNIT/ML INSULN.PEN SC ×4 (02:36→22:31)
[2018-08-18 05:50] VITALS: PULSE 80
[2018-08-18] MEDS: busPIRone 5 MG Tablet PO ×3 (05:50→21:37)
[2018-08-18] MEDS: hydrALAZINE 50 MG Tablet PO ×3 (05:50→21:37)
[2018-08-18] MEDS: Enoxaparin 30 MG/0.3 ML Syringe SC (05:51)
[2018-08-18 06:25] LABS: Bedside Glucose 127 mg/dL (70-110)
[2018-08-18 07:00] VITALS: BP 136/72; PULSE 63; RESP 16; TEMP 36.8; O2SAT 96
[2018-08-18 07:43] LABS: Albumin, Serum 2.5 g/dL (3.2-5.0); BUN 126 mg/dL (7-18); BUN/Creat Ratio 48.3 RATIO (10-20); Calcium,Total 7.7 mg/dL (8.5-10.1); Chloride 100 mmol/L (98-107); Creatinine, Serum 2.61 mg/dL (0.55-1.02); EST Glomerular Filtration Rate 20 mL/min (>60); Est Glom Filt Rate - Afr Amer 24 mL/min (>60); Estimated Creatinine Clearance 18.16 ml/min; Glucose 132 mg/dL (74-106); Phosphorus 3.8 mg/dL (2.5-4.9); Potassium 3.7 mmol/L (3.5-5.1); Sodium Level 135 mmol/L (136-145)
[2018-08-18] MEDS: Sertraline 100 MG Tablet PO (07:54)
[2018-08-18] MEDS: Pantoprazole Sodium 20 MG Tablet PO (07:54)
[2018-08-18] MEDS: Ferrous Sulfate 325 MG Tablet PO ×3 (07:55→17:24)
[2018-08-18] MEDS: Losartan Potassium 50 MG Tablet PO (07:55)
[2018-08-18] MEDS: Carvedilol 25 MG Tablet PO ×2 (07:55→21:36)
[2018-08-18] MEDS: predniSONE 20 MG Tablet 40 MG PO (07:55)
[2018-08-18] MEDS: Calcium (Elemental) 500 MG Tablet PO ×2 (07:55→21:36)
[2018-08-18] MEDS: Multivitamins,Ther W-Minerals Tablet 1 TABLET PO (07:55)
[2018-08-18] MEDS: Insulin Lispro 100 UNIT/ML INSULN.PEN 12 UNIT SC ×3 (07:56→17:23)
[2018-08-18] MEDS: Menthol/Lanolin/Calamine/Znox 113 GM Tube 1 APPLIC TOPICAL ×2 (07:59→21:38)
[2018-08-18] MEDS: Polyethylene Glycol 3350 17 GM PACKET PO (08:02)
--- NOTE | 2018-08-18 09:30 | NURSING ---
Dr. Villanueva aware of labs this AM.
[2018-08-18 10:56] LABS: Bedside Glucose 198 mg/dL (70-110)
[2018-08-18 12:27] VITALS: PULSE 68
[2018-08-18] MEDS: 0.9% NaCl Peripheral Flush Adult/Peds IV (17:25)
[2018-08-18 17:41] LABS: Bedside Glucose 154 mg/dL (70-110)
[2018-08-18 19:54] VITALS: BP 150/74; PULSE 65; RESP 18; TEMP 36.4; O2SAT 98
[2018-08-18 21:15] LABS: Bedside Glucose 223 mg/dL (70-110)
[2018-08-18] MEDS: Atorvastatin Calcium 20 MG Tablet PO (21:36)
[2018-08-18] MEDS: Montelukast 10 MG Tablet PO (21:36)
[2018-08-18] MEDS: Gabapentin 300 MG Capsule PO (21:36)
[2018-08-18 21:37] VITALS: BP 150/74; PULSE 65
[2018-08-19] MEDS: Insulin Lispro 100 UNIT/ML INSULN.PEN SC ×5 (02:46→23:19)
[2018-08-19 02:51] LABS: Bedside Glucose 165 mg/dL (70-110)
--- NOTE | 2018-08-19 03:25 | NURSING ---
22:00 Pt was tearful upon nurse entering room. Pt apologized for emotions but as tears rolled down pt cheeks, pt stated that she had been emotional this hs. Pt stated spouse had sent pt pics of pizza that was promised to pt. Spouse failed to deliver pizza. Pt stated her enthusiasm and anticipation for food that she had been craving. Nurse allowed pt to talk through her emotions. Nurse encouraged pt of progress made and notable good spirits pt has had with all the adversities of late. Will continue to monitor.
[2018-08-19] MEDS: Enoxaparin 30 MG/0.3 ML Syringe SC (06:08)
[2018-08-19] MEDS: busPIRone 5 MG Tablet PO ×3 (06:08→23:17)
[2018-08-19 06:10] VITALS: BP 150/62; PULSE 64
[2018-08-19] MEDS: hydrALAZINE 50 MG Tablet PO ×3 (06:10→23:17)
[2018-08-19 06:25] LABS: Bedside Glucose 152 mg/dL (70-110)
[2018-08-19 07:10] LABS: Albumin, Serum 2.5 g/dL (3.2-5.0); BUN 124 mg/dL (7-18); BUN/Creat Ratio 50.8 RATIO (10-20); Calcium,Total 7.6 mg/dL (8.5-10.1); Chloride 101 mmol/L (98-107); Creatinine, Serum 2.44 mg/dL (0.55-1.02); EST Glomerular Filtration Rate 22 mL/min (>60); Est Glom Filt Rate - Afr Amer 26 mL/min (>60); Estimated Creatinine Clearance 19.43 ml/min; Glucose 143 mg/dL (74-106); Phosphorus 3.9 mg/dL (2.5-4.9); Potassium 3.7 mmol/L (3.5-5.1); Sodium Level 133 mmol/L (136-145)
[2018-08-19 07:45] VITALS: BP 148/68; PULSE 65; RESP 16; TEMP 36.7; O2SAT 98
[2018-08-19] MEDS: predniSONE 20 MG Tablet 40 MG PO (08:49)
[2018-08-19] MEDS: Calcium (Elemental) 500 MG Tablet PO ×2 (08:49→23:16)
[2018-08-19] MEDS: Multivitamins,Ther W-Minerals Tablet 1 TABLET PO (08:49)
[2018-08-19] MEDS: Losartan Potassium 50 MG Tablet PO (08:49)
[2018-08-19] MEDS: Sertraline 100 MG Tablet PO (08:50)
[2018-08-19] MEDS: Carvedilol 25 MG Tablet PO ×2 (08:50→23:18)
[2018-08-19] MEDS: Pantoprazole Sodium 20 MG Tablet PO (08:50)
[2018-08-19] MEDS: Ferrous Sulfate 325 MG Tablet PO ×3 (08:50→18:10)
[2018-08-19] MEDS: Insulin Lispro 100 UNIT/ML INSULN.PEN 12 UNIT SC ×3 (08:51→18:10)
[2018-08-19] MEDS: Menthol/Lanolin/Calamine/Znox 113 GM Tube 1 APPLIC TOPICAL ×2 (08:52→23:18)
[2018-08-19 12:30] LABS: Bedside Glucose 223 mg/dL (70-110)
[2018-08-19 13:25] VITALS: BP 118/60; PULSE 64
--- NOTE | 2018-08-19 17:43 | PCM.PN.HOSP ---
Subjective: Patient is sitting upright in the chair. Still has bilateral lower extremities weakness. Patient can feel bladder filling. Patient can empty bladder spontaneously. Objective: General: Alert, Oriented x3, Cooperative HEENT: Atraumatic, PERRLA, EOMI, Normocephalic Neck: Supple, No JVD, Negative Carotid Bruits Lungs: Clear to auscultation, Air Entry is equal in both lungs. Cardiovascular: Regular rate, Regular Rhythm, Normal S1, Normal S2, No murmurs Abdomen: Bowel Sounds Present, Soft, Non Tender, Non-Distended Extremities: No edema, Capillary Refill Less than 3 Seconds Skin: No rashes, No breakdown Musculoskeletal: Arthritic Changes, Lower extremity weakness present Neurological: Cranial nerves II-XII grossly intact Psych/Mental Status: Normal Affect, Appropriate Vitals/I&O's: Vital Signs Temp Pulse Resp BP Pulse Ox 98.0 F 64 16 118/60 98 08/19/18 07:45 08/19/18 13:25 08/19/18 07:45 08/19/18 13:25 08/19/18 07:45 Oxygen Flow Rate (L/min) 96 Oxygen Delivery Method Room Air Weight: 244 lb 14.937 oz Body Mass Index (BMI) 47.2 Intake and Output for Last 24 Hours 08/17/18 08/18/18 08/19/18 23:59 23:59 23:59 Intake Total 960 / 960 2620 / 2620 360 / 360 Output Total 700 / 700 2150 / 2150 350 / 350 Balance 260 / 260 470 / 470 Laboratory Results 08/18/18 21:11: POC Glucose 223 H 08/19/18 02:44: POC Glucose 165 H 08/19/18 06:20: Sodium 133 L, Potassium 3.7, Chloride 101, Carbon Dioxide 23.0, BUN 124 H*, Creatinine 2.44 H, Estim Creat Clear Calc 19.43, Est GFR (MDRD) Af Amer 26 L, Est GFR (MDRD) Non-Af 22 L, BUN/Creatinine Ratio 50.8 H, Glucose 143 H, Calcium 7.6 L, Phosphorus 3.9, Albumin 2.5 L 08/19/18 06:22: POC Glucose 152 H 08/19/18 11:45: POC Glucose 223 H Current Medications Acetaminophen (Tylenol) 650 mg PO Q8H PRN PRN PRN Reason: PAIN Atorvastatin Calcium (Lipitor) 20 mg PO QHS [facility] Last Admin: 08/18/18 21:36 Dose: 20 mg Bisacodyl (Dulcolax) 10 mg RECTAL .PRN X 1 PRN PRN Reason: Constipation Bisacodyl (Dulcolax) 10 mg RECTAL .PRN X 1 PRN PRN Reason: Constipation Buspirone HCl (Buspar) 5 mg PO TID [facility] Last Admin: 08/19/18 13:25 Dose: 5 mg Calamine/Phenol (Calmoseptine Ointment) 1 applic TOPICAL BID [facility]; Protocol Last Admin: 08/19/18 08:52 Dose: 1 applicatio Calcium Carbonate (Os-Chinedu 500) 500 mg PO BID [facility] Last Admin: 08/19/18 08:49 Dose: 500 mg Carvedilol (Coreg) 25 mg PO BID [facility] Last Admin: 08/19/18 08:50 Dose: 25 mg Enoxaparin Sodium (Lovenox) 30 mg SC DAILY@0600 [facility] Last Admin: 08/19/18 06:08 Dose: 30 mg Ferrous Sulfate (Ferrous Sulfate) 325 mg PO TIDCM [facility] Last Admin: 08/19/18 11:47 Dose: 325 mg Gabapentin (Neurontin) 300 mg PO QHS [facility] Last Admin: 08/18/18 21:36 Dose: 300 mg Hydralazine HCl (Apresoline) 50 mg PO TID [facility] Last Admin: 08/19/18 13:25 Dose: 50 mg Hydrocortisone Acetate (Anusol Hc) 25 mg RECTAL BID PRN PRN PRN Reason: Hemorrhoids Last Admin: 07/30/18 13:54 Dose: 25 mg Insulin Glargine (Lantus (Bkc)) 42 units SC BREAKFAST [facility] Last Admin: 08/19/18 08:50 Dose: 42 units Insulin Human Lispro (Humalog Kwikpen (Bkc)) 0 unit SC ACHS & 0200 [facility]; Protocol Last Admin: 08/19/18 11:47 Dose: 4 u Insulin Human Lispro (Humalog Kwikpen (Bkc)) 12 unit SC TIDAC [facility] Last Admin: 08/19/18 11:47 Dose: 12 u Losartan Potassium (Cozaar) 50 mg PO DAILY [facility] Last Admin: 03/03/19 08:49 Dose: 50 mg Magnesium Hydroxide (Milk Of Magnesia) 30 ml PO .PRN X 1 PRN PRN Reason: Constipation Montelukast Sodium (Singulair) 10 mg PO QHS [facility] Last Admin: 08/18/18 21:36 Dose: 10 mg Multivitamins/Minerals (Multivitamin With Minerals) 1 tablet PO DAILY@0800 [facility] Last Admin: 08/19/18 08:49 Dose: 1 tablet Ondansetron HCl (Zofran Odt) 4 mg PO Q8H PRN PRN PRN Reason: NAUSEA Pantoprazole Sodium (Protonix) 20 mg PO DAILY [facility] Last Admin: 08/19/18 08:50 Dose: 20 mg Polyethylene Glycol (Miralax) 17 gm PO DAILY [facility] Last Admin: 08/19/18 08:50 Dose: Not Given Prednisone () 40 mg PO DAILY@0800 [facility] Last Admin: 08/19/18 08:49 Dose: 40 mg Senna/Docusate Sodium (Senokot-S, Leti-Colace) 2 tablet PO BID PRN PRN Reason: CONSTIPATION Sertraline HCl (Zoloft) 100 mg PO DAILY [facility] Last Admin: 08/19/18 08:50 Dose: 100 mg Sodium Chloride () 5 - 15 ml IV UD PRN PRN Reason: SALINE FLUSH Last Admin: 08/18/18 17:25 Dose: 10 ml Medical Necessity - Tobacco Use Smoking Status: Never smoker Tobacco Use: Non-smoker Assessment/Plan All Active Problems Debility (Acute) There is a 58-year female who is admitted on rehab after she had difficulty walking and frequent fall from May 2018 secondary gradual bilateral lower extremity weakness since December 2017. She was diagnosed with CIDP after NCS showed polyneuropathy and had high-dose steroid here in [facility] and was transferred to [facility] for plasmapheresis and had 5 treatments and transferred back to post rehab. 1. chronic inflammatory demyelinating polyneuropathy s/p 5 rounds of plasmapheresis at [facility] on PO prednisone neurology on board 2. HF of unknown etiology Lasix is discontinued. 2D echo on 08/06/18 reported as EF 65% with moderate concentric LVH. Evidence of diastolic dysfunction. No regional wall motion abnormality. Normal RV size and systolic function. Left atrium mildly enlarged. Moderate 2+ MR. Mild mitral stenosis. Mild diffuse mitral valve thickening. Mild TR, RVSP 49 mmHg. Normal aortic valve. 3. Right midlung nodule was ruled out on CT chest. CT chest did not show evidence of 1.7 cm nodule in the right midlung, seen on chest x-ray. CKD 4 secondary to diabetic nephropathy: Dr. Lew note reviewed. Lasix and steroid discontinued. BUN is still high although slowly improving from 130-124. Creatinine is improved from 2.7-2.4. Avoid nephrotoxic medications. 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 Sodium improved to 133. K3.7. 4. Type 2 diabetes mellitus: on lantus 37IU qhs and ISS. blood sugars well controlled incresase mealtime insulin coverage to SC lispro 10IU tid. continue high dose ISS accuchecks ACHS 5. HTN: fairly controlled On amlodipine 10 mg daily, carvedilol 25 mg daily, hydralazine 50 mg 3 times daily and losartan 50 mg daily. 6. Ecchymosis of lower abdomen: Likely due to Lovenox injections. Stable and asymptomatic. We will continue to monitor. 7. Bilateral lower extremity edema: Lasix has been discontinued. DVT prophylaxis: lovenox. Laboratory Results 08/18/18 21:11: POC Glucose 223 H 08/19/18 02:44: POC Glucose 165 H 08/19/18 06:20: Sodium 133 L, Potassium 3.7, Chloride 101, Carbon Dioxide 23.0, BUN 124 H*, Creatinine 2.44 H, Estim Creat Clear Calc 19.43, Est GFR (MDRD) Af Amer 26 L, Est GFR (MDRD) Non-Af 22 L, BUN/Creatinine Ratio 50.8 H, Glucose 143 H, Calcium 7.6 L, Phosphorus 3.9, Albumin 2.5 L 08/19/18 06:22: POC Glucose 152 H 08/19/18 11:45: POC Glucose 223 H Code Visit Inpatient E&M: 20856 Subs Hosp L2
--- NOTE | 2018-08-19 17:46 | PN_ITS ---
Subjective: Patient is sitting upright in the chair. Still has bilateral lower extremities weakness. Patient can feel bladder filling. Patient can empty bladder spontaneously. Objective: General: Alert, Oriented x3, Cooperative HEENT: Atraumatic, PERRLA, EOMI, Normocephalic Neck: Supple, No JVD, Negative Carotid Bruits Lungs: Clear to auscultation, Air Entry is equal in both lungs. Cardiovascular: Regular rate, Regular Rhythm, Normal S1, Normal S2, No murmurs Abdomen: Bowel Sounds Present, Soft, Non Tender, Non-Distended Extremities: No edema, Capillary Refill Less than 3 Seconds Skin: No rashes, No breakdown Musculoskeletal: Arthritic Changes, Lower extremity weakness present Neurological: Cranial nerves II-XII grossly intact Psych/Mental Status: Normal Affect, Appropriate Vitals/I&O's: Vital Signs Temp Pulse Resp BP Pulse Ox 98.0 F 64 16 118/60 98 08/19/18 07:45 08/19/18 13:25 08/19/18 07:45 08/19/18 13:25 08/19/18 07:45 Oxygen Flow Rate (L/min) 96 Oxygen Delivery Method Room Air Weight: 244 lb 14.937 oz Body Mass Index (BMI) 47.2 Intake and Output for Last 24 Hours 08/17/18 08/18/18 08/19/18 23:59 23:59 23:59 Intake Total 960 / 960 2620 / 2620 360 / 360 Output Total 700 / 700 2150 / 2150 350 / 350 Balance 260 / 260 470 / 470 Laboratory Results 08/18/18 21:11: POC Glucose 223 H 08/19/18 02:44: POC Glucose 165 H 08/19/18 06:20: Sodium 133 L, Potassium 3.7, Chloride 101, Carbon Dioxide 23.0, BUN 124 H*, Creatinine 2.44 H, Estim Creat Clear Calc 19.43, Est GFR (MDRD) Af Amer 26 L, Est GFR (MDRD) Non-Af 22 L, BUN/Creatinine Ratio 50.8 H, Glucose 143 H, Calcium 7.6 L, Phosphorus 3.9, Albumin 2.5 L 08/19/18 06:22: POC Glucose 152 H 08/19/18 11:45: POC Glucose 223 H Current Medications Acetaminophen (Tylenol) 650 mg PO Q8H PRN PRN PRN Reason: PAIN Atorvastatin Calcium (Lipitor) 20 mg PO QHS [facility] Last Admin: 08/18/18 21:36 Dose: 20 mg Bisacodyl (Dulcolax) 10 mg RECTAL .PRN X 1 PRN PRN Reason: Constipation Bisacodyl (Dulcolax) 10 mg RECTAL .PRN X 1 PRN PRN Reason: Constipation Buspirone HCl (Buspar) 5 mg PO TID [facility] Last Admin: 08/19/18 13:25 Dose: 5 mg Calamine/Phenol (Calmoseptine Ointment) 1 applic TOPICAL BID [facility]; Protocol Last Admin: 08/19/18 08:52 Dose: 1 applicatio Calcium Carbonate (Os-Chinedu 500) 500 mg PO BID [facility] Last Admin: 08/19/18 08:49 Dose: 500 mg Carvedilol (Coreg) 25 mg PO BID [facility] Last Admin: 08/19/18 08:50 Dose: 25 mg Enoxaparin Sodium (Lovenox) 30 mg SC DAILY@0600 [facility] Last Admin: 08/19/18 06:08 Dose: 30 mg Ferrous Sulfate (Ferrous Sulfate) 325 mg PO TIDCM [facility] Last Admin: 08/19/18 11:47 Dose: 325 mg Gabapentin (Neurontin) 300 mg PO QHS [facility] Last Admin: 08/18/18 21:36 Dose: 300 mg Hydralazine HCl (Apresoline) 50 mg PO TID [facility] Last Admin: 08/19/18 13:25 Dose: 50 mg Hydrocortisone Acetate (Anusol Hc) 25 mg RECTAL BID PRN PRN PRN Reason: Hemorrhoids Last Admin: 07/30/18 13:54 Dose: 25 mg Insulin Glargine (Lantus (Bkc)) 42 units SC BREAKFAST [facility] Last Admin: 08/19/18 08:50 Dose: 42 units Insulin Human Lispro (Humalog Kwikpen (Bkc)) 0 unit SC ACHS & 0200 [facility]; Protocol Last Admin: 08/19/18 11:47 Dose: 4 u Insulin Human Lispro (Humalog Kwikpen (Bkc)) 12 unit SC TIDAC [facility] Last Admin: 08/19/18 11:47 Dose: 12 u Losartan Potassium (Cozaar) 50 mg PO DAILY [facility] Last Admin: 03/03/19 08:49 Dose: 50 mg Magnesium Hydroxide (Milk Of Magnesia) 30 ml PO .PRN X 1 PRN PRN Reason: Constipation Montelukast Sodium (Singulair) 10 mg PO QHS [facility] Last Admin: 08/18/18 21:36 Dose: 10 mg Multivitamins/Minerals (Multivitamin With Minerals) 1 tablet PO DAILY@0800 [facility] Last Admin: 08/19/18 08:49 Dose: 1 tablet Ondansetron HCl (Zofran Odt) 4 mg PO Q8H PRN PRN PRN Reason: NAUSEA Pantoprazole Sodium (Protonix) 20 mg PO DAILY [facility] Last Admin: 08/19/18 08:50 Dose: 20 mg Polyethylene Glycol (Miralax) 17 gm PO DAILY [facility] Last Admin: 08/19/18 08:50 Dose: Not Given Prednisone () 40 mg PO DAILY@0800 [facility] Last Admin: 08/19/18 08:49 Dose: 40 mg Senna/Docusate Sodium (Senokot-S, Leti-Colace) 2 tablet PO BID PRN PRN Reason: CONSTIPATION Sertraline HCl (Zoloft) 100 mg PO DAILY [facility] Last Admin: 08/19/18 08:50 Dose: 100 mg Sodium Chloride () 5 - 15 ml IV UD PRN PRN Reason: SALINE FLUSH Last Admin: 08/18/18 17:25 Dose: 10 ml Medical Necessity - Tobacco Use Smoking Status: Never smoker Tobacco Use: Non-smoker Assessment/Plan All Active Problems Debility (Acute) There is a 58-year female who is admitted on rehab after she had difficulty walking and frequent fall from May 2018 secondary gradual bilateral lower extremity weakness since December 2017. 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 1. chronic inflammatory demyelinating polyneuropathy * s/p 5 rounds of plasmapheresis at [facility] * on PO prednisone * neurology on board 2. HF of unknown etiology * Lasix is discontinued. * 2D echo on 08/06/18 reported as EF 65% with moderate concentric LVH. Evidence of diastolic dysfunction. No regional wall motion abnormality. Normal RV size and systolic function. Left atrium mildly enlarged. Moderate 2+ MR. Mild mitral stenosis. Mild diffuse mitral valve thickening. Mild TR, RVSP 49 mmHg. Normal aortic valve. 3. Right midlung nodule was ruled out on CT chest. CT chest did not show evidence of 1.7 cm nodule in the right midlung, seen on chest x-ray. CKD 4 secondary to diabetic nephropathy: Dr. Lew note reviewed. Lasix and steroid discontinued. BUN is still high although slowly improving from 130-124. Creatinine is improved from 2.7-2.4. Avoid nephrotoxic medications. 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 Sodium improved to 133. K3.7. 4. Type 2 diabetes mellitus: * on lantus 37IU qhs and ISS. * blood sugars well controlled * incresase mealtime insulin coverage to SC lispro 10IU tid. * continue high dose ISS * accuchecks ACHS * 5. HTN: * fairly controlled * On amlodipine 10 mg daily, carvedilol 25 mg daily, hydralazine 50 mg 3 times daily and losartan 50 mg daily. * 6. Ecchymosis of lower abdomen: Likely due to Lovenox injections. Stable and asymptomatic. We will continue to monitor. 7. Bilateral lower extremity edema: Lasix has been discontinued. DVT prophylaxis: lovenox. Laboratory Results 08/18/18 21:11: POC Glucose 223 H 08/19/18 02:44: POC Glucose 165 H 08/19/18 06:20: Sodium 133 L, Potassium 3.7, Chloride 101, Carbon Dioxide 23.0, BUN 124 H*, Creatinine 2.44 H, Estim Creat Clear Calc 19.43, Est GFR (MDRD) Af Amer 26 L, Est GFR (MDRD) Non-Af 22 L, BUN/Creatinine Ratio 50.8 H, Glucose 143 H, Calcium 7.6 L, Phosphorus 3.9, Albumin 2.5 L 08/19/18 06:22: POC Glucose 152 H 08/19/18 11:45: POC Glucose 223 H Code Visit Inpatient E&M: 46263 Subs Hosp L2
[2018-08-19] MEDS: Hydrocortisone 25 MG Suppository RECTAL (17:58)
[2018-08-19 18:16] LABS: Bedside Glucose 241 mg/dL (70-110)
[2018-08-19 22:00] VITALS: BP 144/64; PULSE 68; RESP 18; TEMP 36.6; O2SAT 94
[2018-08-19] MEDS: Gabapentin 300 MG Capsule PO (23:16)
[2018-08-19] MEDS: Montelukast 10 MG Tablet PO (23:16)
[2018-08-19 23:17] VITALS: BP 144/64; PULSE 68
[2018-08-19] MEDS: Atorvastatin Calcium 20 MG Tablet PO (23:17)
[2018-08-19 23:25] LABS: Bedside Glucose 295 mg/dL (70-110)
[2018-08-20] MEDS: Insulin Lispro 100 UNIT/ML INSULN.PEN SC ×5 (02:43→20:06)
[2018-08-20 02:51] LABS: Bedside Glucose 272 mg/dL (70-110)
[2018-08-20 06:06] VITALS: BP 136/71; PULSE 63
[2018-08-20] MEDS: hydrALAZINE 50 MG Tablet PO ×3 (06:06→19:59)
[2018-08-20] MEDS: Enoxaparin 30 MG/0.3 ML Syringe SC (06:06)
[2018-08-20] MEDS: busPIRone 5 MG Tablet PO ×3 (06:06→19:59)
[2018-08-20 06:26] LABS: Bedside Glucose 213 mg/dL (70-110)
[2018-08-20 06:56] LABS: Anion Gap 13 (5-15); BUN 122 mg/dL (7-18); BUN/Creat Ratio 50.8 RATIO (10-20); Calcium,Total 7.9 mg/dL (8.5-10.1); Chloride 104 mmol/L (98-107); EST Glomerular Filtration Rate 22 mL/min (>60); Est Glom Filt Rate - Afr Amer 27 mL/min (>60); Estimated Creatinine Clearance 19.75 ml/min; Glucose 221 mg/dL (74-106); Potassium 3.6 mmol/L (3.5-5.1); Sodium Level 140 mmol/L (136-145)
[2018-08-20 07:04] LABS: Absolute Lymphocyte Count 0.41 X10^3/ul (0.83-4.51); Absolute Neutrophil Count 8.8 X10^3/uL (2.0-7.7); Basophil# 0.01 X10^3/uL; Basophil% 0.1 % (0-1); Hematocrit 21.3 % (37-47); Hemoglobin 7.1 g/dl (12.0-15.0); Lymphocyte # 0.41 X10^3/ul (4.0); Lymphocyte % 4.1 % (19-41); Mean Corp Hgb Conc 33.3 g/gl (32-36); Mean Corpuscular Hgb 27.1 pg (27.0-32.0); Mean Corpuscular Volume 81.3 fL (81-99); Mean Platelet Vol. 10.7 fl (6.2-12.0); Monocyte# 0.78 X10^3/uL; Monocyte% 7.7 % (0-10); Neutrophil # 8.75 X10^3/uL (2.7-7.7); Neutrophil % 86.5 % (47-70); Platelet Count 125 K/mm3 (150-450); RBC Distribution Width CV 15.3 % (11.6-14.6); RBC Distribution Width SD 45.4 fl (35.1-43.9); Red Blood Count 2.62 M/mm3 (4.2-5.4); White Blood Count 10.1 K/mm3 (4.4-11.0)
[2018-08-20 07:06] LABS: Differential Indicated SCAN CRITERIA MET; POSITIVE COUNT NO; POSITIVE DIFFERENTIAL YES; POSITIVE MORPHOLOGY NO
[2018-08-20 08:58] VITALS: BP 136/71; PULSE 64; RESP 16; TEMP 36.4; O2SAT 96
[2018-08-20] MEDS: Insulin Lispro 100 UNIT/ML INSULN.PEN 12 UNIT SC ×3 (09:02→17:18)
[2018-08-20] MEDS: Carvedilol 25 MG Tablet PO ×2 (09:03→20:01)
[2018-08-20] MEDS: Losartan Potassium 50 MG Tablet PO (09:03)
[2018-08-20] MEDS: Pantoprazole Sodium 20 MG Tablet PO (09:03)
[2018-08-20] MEDS: Calcium (Elemental) 500 MG Tablet PO ×2 (09:03→20:00)
[2018-08-20] MEDS: Sertraline 100 MG Tablet PO (09:03)
[2018-08-20] MEDS: predniSONE 20 MG Tablet 40 MG PO (09:03)
[2018-08-20] MEDS: Multivitamins,Ther W-Minerals Tablet 1 TABLET PO (09:03)
[2018-08-20] MEDS: Ferrous Sulfate 325 MG Tablet PO ×3 (09:03→17:17)
[2018-08-20] MEDS: Menthol/Lanolin/Calamine/Znox 113 GM Tube 1 APPLIC TOPICAL (09:04)
--- NOTE | 2018-08-20 11:07 | PN.RENAL_ITS ---
Subjective: renal fxn improved back to baseline. BUN elevated due to steroids. Still with leg weakness. BP stable. Edema stable off lasix. Tolerated iv iron infusion last week. - Physical Exam General: Alert, Oriented x3, Cooperative, No apparent distress Oral: Moist Mucosa Neck: Supple Lungs: Clear to auscultation Cardiovascular: Regular rate Abdomen: Soft, Obese Extremities: Edema - mild Musculoskeletal: - - muscle strength 2/5 BLE Psych/Mental Status: Normal Affect, Appropriate, Alert and oriented to time, place, person, mood and affect Vital Signs Temp Pulse Resp BP Pulse Ox 97.6 F L 64 16 136/71 H 96 08/20/18 08:58 08/20/18 08:58 08/20/18 08:58 08/20/18 08:58 08/20/18 08:58 Oxygen Flow Rate (L/min) 96 Oxygen Delivery Method Room Air Weight: 112.2 kg Body Mass Index (BMI) 47.2 Intake and Output for Last 24 Hours 08/18/18 08/19/18 08/20/18 23:59 23:59 23:59 Intake Total 2620 / 2620 930 / 930 420 / 420 Output Total 2150 / 2150 350 / 350 600 / 600 Balance 470 / 470 580 / 580 -180 / -180 Microbiology Past 72 Hours 08/19/18 19:00 Stool Occult Blood (MENA) - Final Stool Occult Blood Positive Laboratory Tests Past 24 Hrs 08/20/18 08/20/18 05:30 05:30 WBC 10.1 RBC 2.62 L Hgb 7.1 L Hct 21.3 L MCV 81.3 MCH 27.1 MCHC 33.3 RDW 15.3 H RDW Differential 45.4 H Plt Count 125 L MPV 10.7 Immature Gran % (Auto) 1.600 H Neut % (Auto) 86.5 H Lymph % (Auto) 4.1 L [place] % (Auto) 7.7 Eos % (Auto) 0.0 Baso % (Auto) 0.1 Absolute Neuts (auto) 8.8 H Absolute Lymphs (auto) 0.41 L Total Counted Not Reportable Sodium 140 Potassium 3.6 Chloride 104 Carbon Dioxide 23.0 Anion Gap 13 BUN 122 H* Creatinine 2.40 H Estim Creat Clear Calc 19.75 Est GFR (MDRD) Af Amer 27 L Est GFR (MDRD) Non-Af 22 L BUN/Creatinine Ratio 50.8 H Glucose 221 H Calcium 7.9 L POC Glucose 08/20/18 08/20/18 08/19/18 06:16 02:42 23:08 POC Glucose 213 H 272 H 295 H 08/19/18 08/19/18 18:08 11:45 POC Glucose 241 H 223 H Medical Necessity - Tobacco Use Smoking Status: Never smoker Tobacco Use: Non-smoker Assessment/Plan All Active Problems Debility (Acute) 1. 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 Creatinine return to baseline 2.4. BUN elevated due to steroids. 2. DM type II on insulin therapy. Tolerating low dose losartan for diabetic proteinuria 3. Hypertension with relatively stable blood pressures 4. 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 5. Lower extremity edema likely due to high-dose steroids. Edema stable off lasix. 6. Anemia hgb 7.1g. DUNCAN and IV iron ordered. Guaiac pos due to large hemorrhoids 7. Hyponatremia resolved
[2018-08-20] MEDS: Acetaminophen 325 MG Tablet 650 MG PO (11:39)
[2018-08-20 11:50] LABS: Bedside Glucose 181 mg/dL (70-110)
[2018-08-20 14:10] VITALS: BP 121/65; PULSE 63
[2018-08-20 17:10] LABS: Bedside Glucose 153 mg/dL (70-110)
[2018-08-20 19:30] VITALS: BP 136/69; PULSE 62; RESP 18; TEMP 36.5; O2SAT 98
[2018-08-20 19:59] VITALS: BP 136/69; PULSE 62
[2018-08-20] MEDS: Atorvastatin Calcium 20 MG Tablet PO (20:00)
[2018-08-20] MEDS: Montelukast 10 MG Tablet PO (20:00)
[2018-08-20] MEDS: Gabapentin 300 MG Capsule PO (20:01)
[2018-08-20 21:26] LABS: Bedside Glucose 162 mg/dL (70-110)
[2018-08-21 02:21] LABS: Bedside Glucose 169 mg/dL (70-110)
[2018-08-21] MEDS: Insulin Lispro 100 UNIT/ML INSULN.PEN SC ×3 (02:21→21:21)
[2018-08-21 06:29] VITALS: BP 146/82; PULSE 65
[2018-08-21] MEDS: hydrALAZINE 50 MG Tablet PO ×3 (06:29→21:20)
[2018-08-21] MEDS: Enoxaparin 30 MG/0.3 ML Syringe SC (06:29)
[2018-08-21] MEDS: busPIRone 5 MG Tablet PO ×3 (06:32→21:19)
[2018-08-21 07:16] LABS: Bedside Glucose 144 mg/dL (70-110)
[2018-08-21 07:58] VITALS: BP 149/78; PULSE 79; RESP 18; TEMP 36.4; O2SAT 98
[2018-08-21] MEDS: Multivitamins,Ther W-Minerals Tablet 1 TABLET PO (08:00)
[2018-08-21] MEDS: Sertraline 100 MG Tablet PO (08:01)
[2018-08-21] MEDS: predniSONE 20 MG Tablet 40 MG PO (08:01)
[2018-08-21] MEDS: Pantoprazole Sodium 20 MG Tablet PO (08:01)
[2018-08-21] MEDS: Losartan Potassium 50 MG Tablet PO (08:01)
[2018-08-21] MEDS: Carvedilol 25 MG Tablet PO ×2 (08:01→21:19)
[2018-08-21] MEDS: Calcium (Elemental) 500 MG Tablet PO ×2 (08:01→21:19)
[2018-08-21] MEDS: Ferrous Sulfate 325 MG Tablet PO ×3 (08:01→16:40)
[2018-08-21] MEDS: Menthol/Lanolin/Calamine/Znox 113 GM Tube 1 APPLIC TOPICAL (08:02)
[2018-08-21] MEDS: Insulin Lispro 100 UNIT/ML INSULN.PEN 12 UNIT SC ×3 (08:03→16:41)
[2018-08-21 12:00] LABS: Bedside Glucose 138 mg/dL (70-110)
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
--- NOTE | 2018-08-21 13:12 | PCM.PN.NEU ---
Subjective: The just found out today that her scheduled discharge date would be 08/30 and she is somewhat upset about this. She understands that she will be discharged but she is somewhat concerned about the change. This was discussed. No other complaints. She does feel like her legs are improving to some extent. - Physical Exam General: Alert, Oriented x3, Cooperative, No apparent distress HEENT: PERRLA, EOMI Neurological: Cranial nerves II-XII grossly intact, - - Hip flexor strength is 1/5 on the left and 2/5 on the right. Dorsiflexor strength is 3/5 on the left and 1/5 on the right. Plantar flexor strength is 4/5 on the left and 2/5 on the right. Psych/Mental Status: Normal Affect Vital Signs Temp Pulse Resp BP Pulse Ox 36.4 C L 79 18 149/78 H 98 08/21/18 07:58 08/21/18 07:58 08/21/18 07:58 08/21/18 07:58 08/21/18 07:58 Oxygen Flow Rate (L/min) 96 Oxygen Delivery Method Room Air Weight: 112.2 kg Body Mass Index (BMI) 47.2 Intake and Output for Last 24 Hours 08/19/18 08/20/18 08/21/18 23:59 23:59 23:59 Intake Total 930 / 930 780 / 780 60 / 60 Output Total 350 / 350 1200 / 1200 800 / 800 Balance 580 / 580 -420 / -420 -740 / -740 Microbiology Past 72 Hours 08/19/18 19:00 Stool Occult Blood (MENA) - Final Stool Occult Blood Positive POC Glucose 08/21/18 08/21/18 08/21/18 11:29 06:39 02:01 POC Glucose 138 H 144 H 169 H 08/20/18 08/20/18 20:05 16:54 POC Glucose 162 H 153 H Current Medications Generic Name Dose Route Start Last Admin Trade Name Freq PRN Reason Stop Dose Admin Acetaminophen 650 mg 07/28/18 19:17 08/20/18 11:39 Tylenol PO 650 mg Q8H PRN PRN Administration PAIN Atorvastatin Calcium 20 mg 07/28/18 22:00 08/20/18 20:00 Lipitor PO 20 mg QHS [facility]NA Administration Bisacodyl 10 mg 07/28/18 16:29 Dulcolax RECTAL .PRN X 1 PRN Constipation Bisacodyl 10 mg 07/28/18 18:55 Dulcolax RECTAL .PRN X 1 PRN Constipation Buspirone HCl 5 mg 07/28/18 22:00 08/21/18 06:32 Buspar PO 5 mg TID [facility] Administration Calamine/Phenol 1 applic 07/30/18 22:00 08/21/18 08:02 Calmoseptine Ointment TOPICAL 1 applicatio BID [facility] Administration Protocol Calcium Carbonate 500 mg 07/28/18 22:00 08/21/18 08:01 Os-Chinedu 500 PO 500 mg BID [facility] Administration Carvedilol 25 mg 07/28/18 22:00 08/21/18 08:01 Coreg PO 25 mg BID [facility] Administration Enoxaparin Sodium 30 mg 08/07/18 06:00 08/21/18 06:29 Lovenox SC 30 mg DAILY@0600 [facility] Administration Ferrous Sulfate 325 mg 07/29/18 17:00 08/21/18 12:36 Ferrous Sulfate PO 325 mg TIDCM [facility] Administration Gabapentin 300 mg 07/28/18 22:00 08/20/18 20:01 Neurontin PO 300 mg QHS [facility] Administration Hydralazine HCl 50 mg 08/16/18 14:00 08/21/18 06:29 Apresoline PO 50 mg TID [facility] Administration Hydrocortisone Acetate 25 mg 07/29/18 14:00 08/19/18 17:58 Anusol Hc RECTAL 25 mg BID PRN PRN Administration Hemorrhoids Insulin Glargine 42 units 08/12/18 08:00 08/21/18 08:03 Lantus ([facility]) SC 42 units BREAKFAST [facility] Administration Insulin Human Lispro 0 unit 08/11/18 22:00 08/21/18 12:35 Humalog Kwikpen ([facility]) SC Not Given ACHS & 0200 [facility] Protocol Insulin Human Lispro 12 unit 08/12/18 11:00 08/21/18 12:36 Humalog Kwikpen ([facility]) SC 12 u TIDAC [facility] Administration Losartan Potassium 50 mg 08/15/18 10:00 08/21/18 08:01 Cozaar PO 50 mg DAILY [facility] Administration Magnesium Hydroxide 30 ml 07/28/18 18:55 Milk Of Magnesia PO .PRN X 1 PRN Constipation Montelukast Sodium 10 mg 07/28/18 22:00 08/20/18 20:00 Singulair PO 10 mg QHS [facility] Administration Multivitamins/Minerals 1 tablet 07/29/18 08:00 08/21/18 08:00 Multivitamin With Minerals PO 1 tablet DAILY@0800 [facility] Administration Ondansetron HCl 4 mg 07/28/18 16:29 Zofran Odt PO Q8H PRN PRN NAUSEA Pantoprazole Sodium 20 mg 07/29/18 10:00 08/21/18 08:01 Protonix PO 20 mg DAILY [facility] Administration Polyethylene Glycol 17 gm 08/17/18 10:00 08/21/18 08:01 Miralax PO Not Given DAILY [facility] Prednisone 40 mg 08/04/18 08:00 08/21/18 08:01 PO 40 mg DAILY@0800 [facility] Administration Senna/Docusate Sodium 2 tablet 08/17/18 06:39 Senokot-S, Leti-Colace PO BID PRN CONSTIPATION Sertraline HCl 100 mg 07/29/18 10:00 08/21/18 08:01 Zoloft PO 100 mg DAILY [facility] Administration Sodium Chloride 5 - 15 ml 08/07/18 14:40 08/18/18 17:25 IV 10 ml UD PRN Administration SALINE FLUSH Medical Necessity - Tobacco Use Smoking Status: Never smoker Tobacco Use: Non-smoker Assessment/Plan All Active Problems Debility (Acute) Debility status post prolonged hospitalization for acute/subacute neuropathy of unknown cause. Workup was previously negative for GBS including lumbar puncture. She has received a course of IVIG as well as now recently plasmapheresis and is on steroids. Goal of rehab is [place] of prior level of functional independence. Plan: Physical therapy for gait and balance. 08/02: Stable/improved Occupational Therapy for ADLs. 08/02: Stable/improved PRN analgesics 07/31: Controlled. 08/02: Stable Bowel protocol. 08/02: No issues DVT prophylaxis Currently on steroids, will need to consider further immune suppression 07/31: Stable. 08/07: Steroids decreased to 40 mg about 2 days ago, will continue this for another week or so and consider tapering further. discharge planning: await update from insurance, team . 08/21: Plan discharge 08/30.
--- NOTE | 2018-08-21 13:15 | PN.NEURO_ITS ---
Subjective: The just found out today that her scheduled discharge date would be 08/30 and she is somewhat upset about this. She understands that she will be discharged but she is somewhat concerned about the change. This was discussed. No other complaints. She does feel like her legs are improving to some extent. - Physical Exam General: Alert, Oriented x3, Cooperative, No apparent distress HEENT: PERRLA, EOMI Neurological: Cranial nerves II-XII grossly intact, - - Hip flexor strength is 1/5 on the left and 2/5 on the right. Dorsiflexor strength is 3/5 on the left and 1/5 on the right. Plantar flexor strength is 4/5 on the left and 2/5 on the right. Psych/Mental Status: Normal Affect Vital Signs Temp Pulse Resp BP Pulse Ox 36.4 C L 79 18 149/78 H 98 08/21/18 07:58 08/21/18 07:58 08/21/18 07:58 08/21/18 07:58 08/21/18 07:58 Oxygen Flow Rate (L/min) 96 Oxygen Delivery Method Room Air Weight: 112.2 kg Body Mass Index (BMI) 47.2 Intake and Output for Last 24 Hours 08/19/18 08/20/18 08/21/18 23:59 23:59 23:59 Intake Total 930 / 930 780 / 780 60 / 60 Output Total 350 / 350 1200 / 1200 800 / 800 Balance 580 / 580 -420 / -420 -740 / -740 Microbiology Past 72 Hours 08/19/18 19:00 Stool Occult Blood (MENA) - Final Stool Occult Blood Positive POC Glucose 08/21/18 08/21/18 08/21/18 11:29 06:39 02:01 POC Glucose 138 H 144 H 169 H 08/20/18 08/20/18 20:05 16:54 POC Glucose 162 H 153 H Current Medications Generic Name Dose Route Start Last Admin Trade Name Freq PRN Reason Stop Dose Admin Acetaminophen 650 mg 07/28/18 19:17 08/20/18 11:39 Tylenol PO 650 mg Q8H PRN PRN Administration PAIN Atorvastatin Calcium 20 mg 07/28/18 22:00 08/20/18 20:00 Lipitor PO 20 mg QHS [facility]HA[facility] Administration Bisacodyl 10 mg 07/28/18 16:29 Dulcolax RECTAL .PRN X 1 PRN Constipation Bisacodyl 10 mg 07/28/18 18:55 Dulcolax RECTAL .PRN X 1 PRN Constipation Buspirone HCl 5 mg 07/28/18 22:00 08/21/18 06:32 Buspar PO 5 mg TID [facility] Administration Calamine/Phenol 1 applic 07/30/18 22:00 08/21/18 08:02 Calmoseptine Ointment TOPICAL 1 applicatio BID [facility] Administration Protocol Calcium Carbonate 500 mg 07/28/18 22:00 08/21/18 08:01 Os-Chinedu 500 PO 500 mg BID [facility] Administration Carvedilol 25 mg 07/28/18 22:00 08/21/18 08:01 Coreg PO 25 mg BID [facility] Administration Enoxaparin Sodium 30 mg 08/07/18 06:00 08/21/18 06:29 Lovenox SC 30 mg DAILY@0600 [facility] Administration Ferrous Sulfate 325 mg 07/29/18 17:00 08/21/18 12:36 Ferrous Sulfate PO 325 mg TIDCM [facility] Administration Gabapentin 300 mg 07/28/18 22:00 08/20/18 20:01 Neurontin PO 300 mg QHS [facility] Administration Hydralazine HCl 50 mg 08/16/18 14:00 08/21/18 06:29 Apresoline PO 50 mg TID [facility] Administration Hydrocortisone Acetate 25 mg 07/29/18 14:00 08/19/18 17:58 Anusol Hc RECTAL 25 mg BID PRN PRN Administration Hemorrhoids Insulin Glargine 42 units 08/12/18 08:00 08/21/18 08:03 Lantus ([facility]) SC 42 units BREAKFAST [facility] Administration Insulin Human Lispro 0 unit 08/11/18 22:00 08/21/18 12:35 Humalog Kwikpen ([facility]) SC Not Given ACHS & 0200 [facility] Protocol Insulin Human Lispro 12 unit 08/12/18 11:00 08/21/18 12:36 Humalog Kwikpen ([facility]) SC 12 u TIDAC [facility] Administration Losartan Potassium 50 mg 08/15/18 10:00 08/21/18 08:01 Cozaar PO 50 mg DAILY [facility] Administration Magnesium Hydroxide 30 ml 07/28/18 18:55 Milk Of Magnesia PO .PRN X 1 PRN Constipation Montelukast Sodium 10 mg 07/28/18 22:00 08/20/18 20:00 Singulair PO 10 mg QHS [facility] Administration Multivitamins/Minerals 1 tablet 07/29/18 08:00 08/21/18 08:00 Multivitamin With Minerals PO 1 tablet DAILY@0800 [facility] Administration Ondansetron HCl 4 mg 07/28/18 16:29 Zofran Odt PO Q8H PRN PRN NAUSEA Pantoprazole Sodium 20 mg 07/29/18 10:00 08/21/18 08:01 Protonix PO 20 mg DAILY [facility] Administration Polyethylene Glycol 17 gm 08/17/18 10:00 08/21/18 08:01 Miralax PO Not Given DAILY [facility] Prednisone 40 mg 08/04/18 08:00 08/21/18 08:01 PO 40 mg DAILY@0800 [facility] Administration Senna/Docusate Sodium 2 tablet 08/17/18 06:39 Senokot-S, Leit-Colace PO BID PRN CONSTIPATION Sertraline HCl 100 mg 07/29/18 10:00 08/21/18 08:01 Zoloft PO 100 mg DAILY [facility] Administration Sodium Chloride 5 - 15 ml 08/07/18 14:40 08/18/18 17:25 IV 10 ml UD PRN Administration SALINE FLUSH Medical Necessity - Tobacco Use Smoking Status: Never smoker Tobacco Use: Non-smoker Assessment/Plan All Active Problems Debility (Acute) Debility status post prolonged hospitalization for acute/subacute neuropathy of unknown cause. Workup was previously negative for GBS including lumbar puncture. She has received a course of IVIG as well as now recently plasmapher esis and is on steroids. Goal of rehab is latter-day of prior level of functional independence. Plan: Physical therapy for gait and balance. 08/02: Stable/improved Occupational Therapy for ADLs. 08/02: Stable/improved PRN analgesics 07/31: Controlled. 08/02: Stable Bowel protocol. 08/02: No issues DVT prophylaxis Currently on steroids, will need to consider further immune suppression 07/31: Stable. 08/07: Steroids decreased to 40 mg about 2 days ago, will continue this for another week or so and consider tapering further. discharge planning: await update from insurance, team . 08/21: Plan discharge 08/30.
[2018-08-21 14:00] VITALS: BP 131/70; PULSE 69
[2018-08-21 16:51] LABS: Bedside Glucose 222 mg/dL (70-110)
[2018-08-21 20:45] VITALS: BP 140/67; PULSE 76; RESP 16; RESP 93; TEMP 37.1; O2SAT 93
[2018-08-21] MEDS: Atorvastatin Calcium 20 MG Tablet PO (21:19)
[2018-08-21] MEDS: Gabapentin 300 MG Capsule PO (21:19)
[2018-08-21 21:20] VITALS: BP 140/67; PULSE 76
[2018-08-21] MEDS: Montelukast 10 MG Tablet PO (21:22)
[2018-08-21 22:51] LABS: Bedside Glucose 250 mg/dL (70-110)
[2018-08-22] VITALS (11 sets, daily range): BP systolic 127–164; BP diastolic 69–82; PULSE 60–72; RESP 16–18; TEMP 36.4–36.8; O2SAT 95–98
--- NOTE | 2018-08-22 02:37 | NURSING ---
REVIEWED AND AGREE WITH [facility] FIM AND HANDOFF CHARTING.
[2018-08-22] MEDS: Insulin Lispro 100 UNIT/ML INSULN.PEN SC ×4 (02:47→22:51)
[2018-08-22 03:06] LABS: Bedside Glucose 207 mg/dL (70-110)
[2018-08-22] MEDS: hydrALAZINE 50 MG Tablet PO ×3 (05:15→20:24)
[2018-08-22] MEDS: busPIRone 5 MG Tablet PO ×3 (05:15→20:26)
[2018-08-22] MEDS: Enoxaparin 30 MG/0.3 ML Syringe SC (05:16)
[2018-08-22 05:51] LABS: Hematocrit 20.7 % (37-47); Hemoglobin 6.9 g/dl (12.0-15.0); Mean Corp Hgb Conc 33.3 g/gl (32-36); Mean Corpuscular Hgb 27.6 pg (27.0-32.0); Mean Corpuscular Volume 82.8 fL (81-99); Mean Platelet Vol. 10.4 fl (6.2-12.0); Platelet Count 117 K/mm3 (150-450); RBC Distribution Width CV 15.9 % (11.6-14.6); RBC Distribution Width SD 48.3 fl (35.1-43.9); White Blood Count 9.5 K/mm3 (4.4-11.0)
[2018-08-22 05:52] LABS: Scan Indicated on CBC? Y/N NO
[2018-08-22 06:39] LABS: Albumin, Serum 2.1 g/dL (3.2-5.0); BUN 114 mg/dL (7-18); BUN/Creat Ratio 46.3 RATIO (10-20); Calcium,Total 8.3 mg/dL (8.5-10.1); Chloride 106 mmol/L (98-107); Creatinine, Serum 2.46 mg/dL (0.55-1.02); EST Glomerular Filtration Rate 22 mL/min (>60); Est Glom Filt Rate - Afr Amer 26 mL/min (>60); Estimated Creatinine Clearance 19.27 ml/min; Glucose 155 mg/dL (74-106); Phosphorus 3.3 mg/dL (2.5-4.9); Potassium 3.8 mmol/L (3.5-5.1); Sodium Level 139 mmol/L (136-145)
[2018-08-22 07:20] LABS: Bedside Glucose 138 mg/dL (70-110)
[2018-08-22] MEDS: predniSONE 20 MG Tablet 40 MG PO (08:00)
[2018-08-22] MEDS: Multivitamins,Ther W-Minerals Tablet 1 TABLET PO (08:00)
[2018-08-22] MEDS: Insulin Lispro 100 UNIT/ML INSULN.PEN 12 UNIT SC ×3 (08:00→17:38)
[2018-08-22] MEDS: Ferrous Sulfate 325 MG Tablet PO ×3 (08:00→17:37)
[2018-08-22] MEDS: Calcium (Elemental) 500 MG Tablet PO ×2 (08:01→20:26)
[2018-08-22] MEDS: Pantoprazole Sodium 20 MG Tablet PO (08:01)
[2018-08-22] MEDS: Sertraline 100 MG Tablet PO (08:01)
[2018-08-22] MEDS: Menthol/Lanolin/Calamine/Znox 113 GM Tube 1 APPLIC TOPICAL ×2 (08:01→20:38)
[2018-08-22] MEDS: Losartan Potassium 50 MG Tablet PO (08:01)
[2018-08-22] MEDS: Carvedilol 25 MG Tablet PO ×2 (08:01→20:25)
[2018-08-22 11:36] LABS: Bedside Glucose 169 mg/dL (70-110)
--- NOTE | 2018-08-22 13:33 | PN.NEURO_ITS ---
Subjective: No new complaints although she does say she is very fatigued and agrees with the need for transfusion. Tolerating therapies otherwise no GI or complaints. Somewhat concerned about the status of her discharge from the rehab unit to a halfway facility but she and her family are working on this. - Physical Exam General: Alert, Oriented x3 HEENT: Atraumatic, PERRLA, EOMI Neurological: Cranial nerves II-XII grossly intact, - - Bilateral lower extr emity weakness stable Psych/Mental Status: Normal Affect, Alert and oriented to time, place, person, mood and affect Vital Signs Temp Pulse Resp BP Pulse Ox 36.8 C 61 16 127/69 H 95 08/22/18 07:58 08/22/18 07:58 08/22/18 07:58 08/22/18 07:58 08/22/18 07:58 Oxygen Flow Rate (L/min) 96 Oxygen Delivery Method Room Air Weight: 113 kg Body Mass Index (BMI) 47.2 Intake and Output for Last 24 Hours 08/20/18 08/21/18 08/22/18 23:59 23:59 23:59 Intake Total 780 / 780 540 / 540 1030 / 1030 Output Total 1200 / 1200 1600 / 1600 700 / 700 Balance -420 / -420 -1060 / -1060 330 / 330 Microbiology Past 72 Hours 08/19/18 19:00 Stool Occult Blood (MENA) - Final Stool Occult Blood Positive Laboratory Tests Past 24 Hrs 08/22/18 08/22/18 08/22/18 05:25 05:25 13:05 WBC 9.5 RBC 2.50 L Hgb 6.9 L Hct 20.7 L MCV 82.8 MCH 27.6 MCHC 33.3 RDW 15.9 H RDW Differential 48.3 H Plt Count 117 L MPV 10.4 Sodium 139 Potassium 3.8 Chloride 106 Carbon Dioxide 23.0 BUN 114 H* Creatinine 2.46 H Estim Creat Clear Calc 19.27 Est GFR (MDRD) Af Amer 26 L Est GFR ([facility]DRD) Non-Af 22 L BUN/Creatinine Ratio 46.3 H Glucose 155 H Calcium 8.3 L Phosphorus 3.3 Albumin 2.1 L Blood Type Pending Antibody Screen Pending Crossmatch See Detail POC Glucose 08/22/18 08/22/18 08/22/18 11:26 07:05 02:44 POC Glucose 169 H 138 H 207 H 08/21/18 08/21/18 21:18 16:38 POC Glucose 250 H 222 H Current Medications Generic Name Dose Route Start Last Admin Trade Name Freq PRN Reason Stop Dose Admin Acetaminophen 650 mg 07/28/18 19:17 08/20/18 11:39 Tylenol PO 650 mg Q8H PRN PRN Administration PAIN Atorvastatin Calcium 20 mg 07/28/18 22:00 08/21/18 21:19 Lipitor PO 20 mg QHS [facility] Administration Bisacodyl 10 mg 07/28/18 16:29 Dulcolax RECTAL .PRN X 1 PRN Constipation Bisacodyl 10 mg 07/28/18 18:55 Dulcolax RECTAL .PRN X 1 PRN Constipation Buspirone HCl 5 mg 07/28/18 22:00 08/22/18 05:15 Buspar PO 5 mg TID [facility] Administration Calamine/Phenol 1 applic 07/30/18 22:00 08/22/18 08:01 Calmoseptine Ointment TOPICAL 1 applicatio BID [facility] Administration Protocol Calcium Carbonate 500 mg 07/28/18 22:00 08/22/18 08:01 Os-Chinedu 500 PO 500 mg BID [facility] Administration Carvedilol 25 mg 07/28/18 22:00 08/22/18 08:01 Coreg PO 25 mg BID [facility] Administration Enoxaparin Sodium 30 mg 08/07/18 06:00 08/22/18 05:16 Lovenox SC 30 mg DAILY@0600 [facility] Administration Ferrous Sulfate 325 mg 07/29/18 17:00 08/22/18 12:11 Ferrous Sulfate PO 325 mg TIDCM [facility] Administration Furosemide 20 mg 08/22/18 17:00 Lasix IV 08/22/18 17:01 X1 ONE Gabapentin 300 mg 07/28/18 22:00 08/21/18 21:19 Neurontin PO 300 mg QHS [facility] Administration Hydralazine HCl 50 mg 08/16/18 14:00 08/22/18 05:15 Apresoline PO 50 mg TID [facility] Administration Hydrocortisone Acetate 25 mg 07/29/18 14:00 08/19/18 17:58 Anusol Hc RECTAL 25 mg BID PRN PRN Administration Hemorrhoids Insulin Glargine 42 units 08/12/18 08:00 08/22/18 08:00 Lantus ([facility]) SC 42 units BREAKFAST [facility] Administration Insulin Human Lispro 0 unit 08/11/18 22:00 08/22/18 12:12 Humalog Kwikpen ([facility]) SC 2 u ACHS & 0200 [facility] Administration Protocol Insulin Human Lispro 12 unit 08/12/18 11:00 08/22/18 12:12 Humalog Kwikpen ([facility]) SC 12 u TIDAC [facility] Administration Losartan Potassium 50 mg 08/15/18 10:00 08/22/18 08:01 Cozaar PO 50 mg DAILY [facility] Administration Magnesium Hydroxide 30 ml 07/28/18 18:55 Milk Of Magnesia PO .PRN X 1 PRN Constipation Montelukast Sodium 10 mg 07/28/18 22:00 08/21/18 21:22 Singulair PO 10 mg QHS [facility] Administration Multivitamins/Minerals 1 tablet 07/29/18 08:00 08/22/18 08:00 Multivitamin With Minerals PO 1 tablet DAILY@0800 [facility] Administration Ondansetron HCl 4 mg 07/28/18 16:29 Zofran Odt PO Q8H PRN PRN NAUSEA Pantoprazole Sodium 20 mg 07/29/18 10:00 08/22/18 08:01 Protonix PO 20 mg DAILY [facility] Administration Polyethylene Glycol 17 gm 08/17/18 10:00 08/22/18 08:01 Miralax PO Not Given DAILY [facility] Prednisone 40 mg 08/04/18 08:00 08/22/18 08:00 PO 40 mg DAILY@0800 [facility] Administration Senna/Docusate Sodium 2 tablet 08/17/18 06:39 Senokot-S, Leti-Colace PO BID PRN CONSTIPATION Sertraline HCl 100 mg 07/29/18 10:00 08/22/18 08:01 Zoloft PO 100 mg DAILY [facility] Administration Sodium Chloride 5 - 15 ml 08/07/18 14:40 08/18/18 17:25 IV 10 ml UD PRN Administration SALINE FLUSH Medical Necessity - Tobacco Use Smoking Status: Never smoker Tobacco Use: Non-smoker Assessment/Plan All Active Problems Debility (Acute) Debility status post prolonged hospitalization for acute/subacute neuropathy of unknown cause. Workup was previously negative for GBS including lumbar puncture. She has received a course of IVIG as well as now recently plasmapheresis and is on steroids. Goal of rehab is faith of prior level of functional independence. Plan: Physical therapy for gait and balance. 08/02: Stable/improved Occupational Therapy for ADLs. 08/02: Stable/improved PRN analgesics 07/31: Controlled. 08/02: Stable Bowel protocol. 08/02: No issues DVT prophylaxis Currently on steroids, will need to consider further immune suppression 07/31: Stable. 08/07: Steroids decreased to 40 mg about 2 days ago, will continue this for another week or so and consider tapering further. discharge planning: await update from insurance, team . 08/21: Plan discharge 08/30. Team meeting tomorrow 08/23 Anemia: Transfusion ordered per nephrology.
--- NOTE | 2018-08-22 14:03 | PCM.PN.REN ---
Subjective: vitals stable. Complains of fatigue, drowsiness. No nausea, vomiting, no sob. - Physical Exam General: Alert, Oriented x3, Cooperative Lungs: Clear to auscultation Extremities: Edema Musculoskeletal: - - motor 2/5 BLE Psych/Mental Status: Normal Affect, Appropriate, Alert and oriented to time, place, person, mood and affect Vital Signs Temp Pulse Resp BP Pulse Ox 98.3 F 65 16 156/80 H 95 08/22/18 07:58 08/22/18 13:52 08/22/18 07:58 08/22/18 13:52 08/22/18 07:58 Oxygen Flow Rate (L/min) 96 Oxygen Delivery Method Room Air Weight: 113 kg Body Mass Index (BMI) 47.2 Intake and Output for Last 24 Hours 08/20/18 08/21/18 08/22/18 23:59 23:59 23:59 Intake Total 780 / 780 540 / 540 1030 / 1030 Output Total 1200 / 1200 1600 / 1600 700 / 700 Balance -420 / -420 -1060 / -1060 330 / 330 Microbiology Past 72 Hours 08/19/18 19:00 Stool Occult Blood (MENA) - Final Stool Occult Blood Positive Laboratory Tests Past 24 Hrs 08/22/18 08/22/18 08/22/18 05:25 05:25 13:05 WBC 9.5 RBC 2.50 L Hgb 6.9 L Hct 20.7 L MCV 82.8 MCH 27.6 MCHC 33.3 RDW 15.9 H RDW Differential 48.3 H Plt Count 117 L MPV 10.4 Sodium 139 Potassium 3.8 Chloride 106 Carbon Dioxide 23.0 BUN 114 H* Creatinine 2.46 H Estim Creat Clear Calc 19.27 Est GFR (MDRD) Af Amer 26 L Est GFR (MDRD) Non-Af 22 L BUN/Creatinine Ratio 46.3 H Glucose 155 H Calcium 8.3 L Phosphorus 3.3 Albumin 2.1 L Blood Type Pending Antibody Screen Pending Crossmatch See Detail POC Glucose 08/22/18 08/22/18 08/22/18 11:26 07:05 02:44 POC Glucose 169 H 138 H 207 H 08/21/18 08/21/18 21:18 16:38 POC Glucose 250 H 222 H Medical Necessity - Tobacco Use Smoking Status: Never smoker Tobacco Use: Non-smoker Assessment/Plan All Active Problems Debility (Acute) 1. 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 Creatinine return to baseline 2.4. BUN elevated due to steroids. 2. DM type II on insulin therapy. Tolerating low dose losartan for diabetic proteinuria 3. Hypertension with stable blood pressures 4. 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 5. Lower extremity edema likely due to high-dose steroids. Edema stable off lasix. 6. Anemia hgb 6.9g with symptoms. 1u prbc today. DUNCAN continued weekly
[2018-08-22 16:40] LABS: Bedside Glucose 168 mg/dL (70-110)
--- NOTE | 2018-08-22 19:38 | NURSING ---
Transfusion of PRBC completed, pt tolerated well.
[2018-08-22] MEDS: Atorvastatin Calcium 20 MG Tablet PO (20:25)
[2018-08-22] MEDS: Gabapentin 300 MG Capsule PO (20:26)
[2018-08-22] MEDS: Montelukast 10 MG Tablet PO (20:27)
[2018-08-22] MEDS: Furosemide 20 MG/2 ML VIAL IV (20:27)
[2018-08-22 23:00] LABS: Bedside Glucose 277 mg/dL (70-110)
[2018-08-23 02:01] LABS: Bedside Glucose 267 mg/dL (70-110)
[2018-08-23] MEDS: Insulin Lispro 100 UNIT/ML INSULN.PEN SC ×5 (02:06→22:38)
[2018-08-23 05:21] VITALS: PULSE 65
[2018-08-23] MEDS: busPIRone 5 MG Tablet PO ×3 (05:21→22:38)
[2018-08-23] MEDS: Enoxaparin 30 MG/0.3 ML Syringe SC (05:21)
[2018-08-23] MEDS: hydrALAZINE 50 MG Tablet PO ×3 (05:21→22:37)
[2018-08-23 07:00] LABS: Bedside Glucose 180 mg/dL (70-110)
[2018-08-23 07:46] VITALS: BP 154/71; PULSE 65; RESP 16; TEMP 36.6; O2SAT 95
[2018-08-23] MEDS: Pantoprazole Sodium 20 MG Tablet PO (08:07)
[2018-08-23] MEDS: Sertraline 100 MG Tablet PO (08:07)
[2018-08-23] MEDS: Calcium (Elemental) 500 MG Tablet PO ×2 (08:08→22:39)
[2018-08-23] MEDS: Insulin Lispro 100 UNIT/ML INSULN.PEN 12 UNIT SC ×3 (08:08→17:03)
[2018-08-23] MEDS: Ferrous Sulfate 325 MG Tablet PO ×3 (08:08→17:03)
[2018-08-23] MEDS: Losartan Potassium 50 MG Tablet PO (08:08)
[2018-08-23] MEDS: Multivitamins,Ther W-Minerals Tablet 1 TABLET PO (08:08)
[2018-08-23] MEDS: predniSONE 20 MG Tablet 40 MG PO (08:08)
[2018-08-23] MEDS: Carvedilol 25 MG Tablet PO ×2 (08:08→22:38)
[2018-08-23] MEDS: Menthol/Lanolin/Calamine/Znox 113 GM Tube 1 APPLIC TOPICAL ×2 (08:33→22:52)
--- NOTE | 2018-08-23 10:09 | PCM.PN.NEU ---
Subjective: No new complaints. Staffed in team meeting. She is stable from a physical therapy standpoint as well as occupational therapy. She is modified assistance with transfers but there is improved arm strength. Central discharge 08/30. Complains of blisters at the angle of her lips bilaterally unimproved with lotions. - Physical Exam General: Alert, Oriented x3, Cooperative, No apparent distress Neurological: Cranial nerves II-XII grossly intact Psych/Mental Status: Normal Affect, Alert and oriented to time, place, person, mood and affect Vital Signs Temp Pulse Resp BP Pulse Ox 36.6 C 65 16 154/71 H 95 08/23/18 07:46 08/23/18 07:46 08/23/18 07:46 08/23/18 07:46 08/23/18 07:46 Oxygen Flow Rate (L/min) 96 Oxygen Delivery Method Room Air Weight: 113 kg Body Mass Index (BMI) 47.2 Intake and Output for Last 24 Hours 08/21/18 08/22/18 08/23/18 23:59 23:59 23:59 Intake Total 540 / 540 1780 / 1780 180 / 180 Output Total 1600 / 1600 1500 / 1500 650 / 650 Balance -1060 / -1060 280 / 280 -470 / -470 Laboratory Tests Past 24 Hrs 08/22/18 08/23/18 13:05 05:25 Vitamin B12 Pending Blood Type A POSITIVE Antibody Screen NEGATIVE Crossmatch See Detail POC Glucose 08/23/18 08/23/18 08/22/18 06:45 01:53 22:50 POC Glucose 180 H 267 H 277 H 08/22/18 08/22/18 16:35 11:26 POC Glucose 168 H 169 H Current Medications Generic Name Dose Route Start Last Admin Trade Name Freq PRN Reason Stop Dose Admin Acetaminophen 650 mg 07/28/18 19:17 08/20/18 11:39 Tylenol PO 650 mg Q8H PRN PRN Administration PAIN Atorvastatin Calcium 20 mg 07/28/18 22:00 08/22/18 20:25 Lipitor PO 20 mg QHS SHAHANA Administration Bisacodyl 10 mg 07/28/18 16:29 Dulcolax RECTAL .PRN X 1 PRN Constipation Bisacodyl 10 mg 07/28/18 18:55 Dulcolax RECTAL .PRN X 1 PRN Constipation Buspirone HCl 5 mg 07/28/18 22:00 08/23/18 05:21 Buspar PO 5 mg TID [facility] Administration Calamine/Phenol 1 applic 07/30/18 22:00 08/23/18 08:33 Calmoseptine Ointment TOPICAL 1 applicatio BID [facility] Administration Protocol Calcium Carbonate 500 mg 07/28/18 22:00 08/23/18 08:08 Os-Chinedu 500 PO 500 mg BID SHAHANA Administration Carvedilol 25 mg 07/28/18 22:00 08/23/18 08:08 Coreg PO 25 mg BID [facility] Administration Enoxaparin Sodium 30 mg 08/07/18 06:00 08/23/18 05:21 Lovenox SC 30 mg DAILY@0600 [facility] Administration Epoetin Ismael 10,000 units 08/27/18 08:00 Procrit SC 08/27/18 08:01 X1 ONE Ferrous Sulfate 325 mg 07/29/18 17:00 08/23/18 08:08 Ferrous Sulfate PO 325 mg TIDCM [facility] Administration Gabapentin 300 mg 07/28/18 22:00 08/22/18 20:26 Neurontin PO 300 mg QHS [facility] Administration Hydralazine HCl 50 mg 08/16/18 14:00 08/23/18 05:21 Apresoline PO 50 mg TID [facility] Administration Hydrocortisone Acetate 25 mg 07/29/18 14:00 08/19/18 17:58 Anusol Hc RECTAL 25 mg BID PRN PRN Administration Hemorrhoids Insulin Glargine 42 units 08/12/18 08:00 08/23/18 08:08 Lantus ([facility]) SC 42 units BREAKFAST [facility] Administration Insulin Human Lispro 0 unit 08/11/18 22:00 08/23/18 08:09 Humalog Kwikpen ([facility]) SC 2 u ACHS & 0200 [facility] Administration Protocol Insulin Human Lispro 12 unit 08/12/18 11:00 08/23/18 08:08 Humalog Kwikpen ([facility]) SC 12 u TIDAC [facility] Administration Losartan Potassium 50 mg 08/15/18 10:00 08/23/18 08:08 Cozaar PO 50 mg DAILY SHAHANA Administration Magnesium Hydroxide 30 ml 07/28/18 18:55 Milk Of Magnesia PO .PRN X 1 PRN Constipation Montelukast Sodium 10 mg 07/28/18 22:00 08/22/18 20:27 Singulair PO 10 mg QHS SHAHANA Administration Multivitamins/Minerals 1 tablet 07/29/18 08:00 08/23/18 08:08 Multivitamin With Minerals PO 1 tablet DAILY@0800 SHAHANA Administration Ondansetron HCl 4 mg 07/28/18 16:29 Zofran Odt PO Q8H PRN PRN NAUSEA Pantoprazole Sodium 20 mg 07/29/18 10:00 08/23/18 08:07 Protonix PO 20 mg DAILY SHAHANA Administration Polyethylene Glycol 17 gm 08/17/18 10:00 08/23/18 08:32 Miralax PO Not Given DAILY SHAHANA Prednisone 30 mg 08/24/18 08:00 PO DAILY@0800 [facility] Senna/Docusate Sodium 2 tablet 08/17/18 06:39 Senokot-S, Leti-Colace PO BID PRN CONSTIPATION Sertraline HCl 100 mg 07/29/18 10:00 08/23/18 08:07 Zoloft PO 100 mg DAILY SHAHANA Administration Sodium Chloride 5 - 15 ml 08/07/18 14:40 08/18/18 17:25 IV 10 ml UD PRN Administration SALINE FLUSH Medical Necessity - Tobacco Use Smoking Status: Never smoker Tobacco Use: Non-smoker Assessment/Plan All Active Problems Debility (Acute) Debility status post prolonged hospitalization for acute/subacute neuropathy of unknown cause. Workup was previously negative for GBS including lumbar puncture. She has received a course of IVIG as well as now recently plasmapheresis and is on steroids. Goal of rehab is mormon of prior level of functional independence. Plan: Physical therapy for gait and balance. 08/02: Stable/improved Occupational Therapy for ADLs. 08/02: Stable/improved PRN analgesics 07/31: Controlled. 08/02: Stable Bowel protocol. 08/02: No issues DVT prophylaxis Currently on steroids, will need to consider further immune suppression 07/31: Stable. 08/07: Steroids decreased to 40 mg about 2 days ago, will continue this for another week or so and consider tapering further. 08/23: Decreased to 30 mg a day of prednisone. discharge planning: await update from insurance, team . 08/21: Plan discharge 08/30. Team meeting tomorrow 08/23 Anemia: Transfusion ordered per nephrology. 08/23: Feels better today after transfusion. Angular cheilitis: Possible causes include iron deficiency, B2 deficiency, or infection. This does not appear to be infectious. She is likely iron deficient. We will check iron levels and supplement as necessary.
--- NOTE | 2018-08-23 10:14 | PN.NEURO_ITS ---
Subjective: No new complaints. Staffed in team meeting. She is stable from a physical therapy standpoint as well as occupational therapy. She is modified assistance with transfers but there is improved arm strength. Central discharge 08/30. Complains of blisters at the angle of her lips bilaterally unimproved with lotions. - Physical Exam General: Alert, Oriented x3, Cooperative, No apparent distress Neurological: Cranial nerves II-XII grossly intact Psych/Mental Status: Normal Affect, Alert and oriented to time, place, person, mood and affect Vital Signs Temp Pulse Resp BP Pulse Ox 36.6 C 65 16 154/71 H 95 08/23/18 07:46 08/23/18 07:46 08/23/18 07:46 08/23/18 07:46 08/23/18 07:46 Oxygen Flow Rate (L/min) 96 Oxygen Delivery Method Room Air Weight: 113 kg Body Mass Index (BMI) 47.2 Intake and Output for Last 24 Hours 08/21/18 08/22/18 08/23/18 23:59 23:59 23:59 Intake Total 540 / 540 1780 / 1780 180 / 180 Output Total 1600 / 1600 1500 / 1500 650 / 650 Balance -1060 / -1060 280 / 280 -470 / -470 Laboratory Tests Past 24 Hrs 08/22/18 08/23/18 13:05 05:25 Vitamin B12 Pending Blood Type A POSITIVE Antibody Screen NEGATIVE Crossmatch See Detail POC Glucose 08/23/18 08/23/18 08/22/18 06:45 01:53 22:50 POC Glucose 180 H 267 H 277 H 08/22/18 08/22/18 16:35 11:26 POC Glucose 168 H 169 H Current Medications Generic Name Dose Route Start Last Admin Trade Name Freq PRN Reason Stop Dose Admin Acetaminophen 650 mg 07/28/18 19:17 08/20/18 11:39 Tylenol PO 650 mg Q8H PRN PRN Administration PAIN Atorvastatin Calcium 20 mg 07/28/18 22:00 08/22/18 20:25 Lipitor PO 20 mg QHS SHAHANA Administration Bisacodyl 10 mg 07/28/18 16:29 Dulcolax RECTAL .PRN X 1 PRN Constipation Bisacodyl 10 mg 07/28/18 18:55 Dulcolax RECTAL .PRN X 1 PRN Constipation Buspirone HCl 5 mg 07/28/18 22:00 08/23/18 05:21 Buspar PO 5 mg TID [facility] Administration Calamine/Phenol 1 applic 07/30/18 22:00 08/23/18 08:33 Calmoseptine Ointment TOPICAL 1 applicatio BID [facility] Administration Protocol Calcium Carbonate 500 mg 07/28/18 22:00 08/23/18 08:08 Os-Chinedu 500 PO 500 mg BID [facility] Administration Carvedilol 25 mg 07/28/18 22:00 08/23/18 08:08 Coreg PO 25 mg BID [facility] Administration Enoxaparin Sodium 30 mg 08/07/18 06:00 08/23/18 05:21 Lovenox SC 30 mg DAILY@0600 [facility] Administration Epoetin Ismael 10,000 units 08/27/18 08:00 Procrit SC 08/27/18 08:01 X1 ONE Ferrous Sulfate 325 mg 07/29/18 17:00 08/23/18 08:08 Ferrous Sulfate PO 325 mg TIDCM [facility] Administration Gabapentin 300 mg 07/28/18 22:00 08/22/18 20:26 Neurontin PO 300 mg QHS [facility] Administration Hydralazine HCl 50 mg 08/16/18 14:00 08/23/18 05:21 Apresoline PO 50 mg TID [facility] Administration Hydrocortisone Acetate 25 mg 07/29/18 14:00 08/19/18 17:58 Anusol Hc RECTAL 25 mg BID PRN PRN Administration Hemorrhoids Insulin Glargine 42 units 08/12/18 08:00 08/23/18 08:08 Lantus ([facility]) SC 42 units BREAKFAST [facility] Administration Insulin Human Lispro 0 unit 08/11/18 22:00 08/23/18 08:09 Humalog Kwikpen ([facility]) SC 2 u ACHS & 0200 [facility] Administration Protocol Insulin Human Lispro 12 unit 08/12/18 11:00 08/23/18 08:08 Humalog Kwikpen ([facility]) SC 12 u TIDAC [facility] Administration Losartan Potassium 50 mg 08/15/18 10:00 08/23/18 08:08 Cozaar PO 50 mg DAILY SHAHANA Administration Magnesium Hydroxide 30 ml 07/28/18 18:55 Milk Of Magnesia PO .PRN X 1 PRN Constipation Montelukast Sodium 10 mg 07/28/18 22:00 08/22/18 20:27 Singulair PO 10 mg QHS [facility]HANA Administration Multivitamins/Minerals 1 tablet 07/29/18 08:00 08/23/18 08:08 Multivitamin With Minerals PO 1 tablet DAILY@0800 [facility] Administration Ondansetron HCl 4 mg 07/28/18 16:29 Zofran Odt PO Q8H PRN PRN NAUSEA Pantoprazole Sodium 20 mg 07/29/18 10:00 08/23/18 08:07 Protonix PO 20 mg DAILY [facility] Administration Polyethylene Glycol 17 gm 08/17/18 10:00 08/23/18 08:32 Miralax PO Not Given DAILY [facility] Prednisone 30 mg 08/24/18 08:00 PO DAILY@0800 [facility] Senna/Docusate Sodium 2 tablet 08/17/18 06:39 Senokot-S, Leti-Colace PO BID PRN CONSTIPATION Sertraline HCl 100 mg 07/29/18 10:00 08/23/18 08:07 Zoloft PO 100 mg DAILY [facility] Administration Sodium Chloride 5 - 15 ml 08/07/18 14:40 08/18/18 17:25 IV 10 ml UD PRN Administration SALINE FLUSH Medical Necessity - Tobacco Use Smoking Status: Never smoker Tobacco Use: Non-smoker Assessment/Plan All Active Problems Debility (Acute) Debility status post prolonged hospitalization for acute/subacute neuropathy of unknown cause. Workup was previously negative for GBS including lumbar puncture. She has received a course of IVIG as well as now recently plasmapher esis and is on steroids. Goal of rehab is zoroastrian of prior level of functional independence. Plan: Physical therapy for gait and balance. 08/02: Stable/improved Occupational Therapy for ADLs. 08/02: Stable/improved PRN analgesics 07/31: Controlled. 08/02: Stable Bowel protocol. 08/02: No issues DVT prophylaxis Currently on steroids, will need to consider further immune suppression 07/31: Stable. 08/07: Steroids decreased to 40 mg about 2 days ago, will continue this for another week or so and consider tapering further. 08/23: Decreased to 30 mg a day of prednisone. discharge planning: await update from insurance, team . 08/21: Plan discharge 08/30. Team meeting tomorrow 08/23 Anemia: Transfusion ordered per nephrology. 08/23: Feels better today after transfusion. Angular cheilitis: Possible causes include iron deficiency, B2 deficiency, or infection. This does not appear to be infectious. She is likely iron deficient. We will check iron levels and supplement as necessary.
[2018-08-23 10:53] LABS: Iron 35 ug/dL (50-170); Iron Binding Capacity,Total 184 ug/dL (250-450)
[2018-08-23 10:59] LABS: Vitamin B12 799 pg/mL (211-911)
--- NOTE | 2018-08-23 11:39 | CASEMGMT ---
Team meeting held. Patient present, no support person present at this time. Patient voicing to have spoken with patient daughter, Nikole and to have decided to place [facility] as the first option to transition to at time of discharge. Patient aware that insurance update is due today and that continued stay approval would need to happen in order for patient to continue for anth. Patient aware that benefits are up next (08/30/18) and plans to discharge to a group home at that time under Medicaid. Patient requesting for this social media marketing manager to begin the referral process. Support given. [facility] This social media marketing manager making referral. Clinical information sent. Proposed discharge date: 08/30/18 pending continued stay approval by insurance. PLAN: Discharge to the [facility] pending approval. Raj MADRID, JOSE
[2018-08-23 12:10] LABS: Bedside Glucose 171 mg/dL (70-110)
--- NOTE | 2018-08-23 14:35 | CASEMGMT ---
Insurance Clinical information sent. Pending continued stay approval at this time. Auth#[id number] Raj MADRID, JOSE
[2018-08-23 15:30] VITALS: BP 149/76; PULSE 63
[2018-08-23 16:51] LABS: Bedside Glucose 241 mg/dL (70-110)
--- NOTE | 2018-08-23 16:58 | CASEMGMT ---
Social Work Telephone call from the [facility]. [facility] reporting to be able to accept resident at time of discharge. Will continue to follow. Raj MADRID, JOSE
[2018-08-23 20:11] VITALS: BP 151/76; PULSE 64; RESP 16; TEMP 36.5; O2SAT 99
[2018-08-23 22:37] VITALS: PULSE 60
[2018-08-23] MEDS: Montelukast 10 MG Tablet PO (22:39)
[2018-08-23] MEDS: Gabapentin 300 MG Capsule PO (22:39)
[2018-08-23] MEDS: Atorvastatin Calcium 20 MG Tablet PO (22:39)
[2018-08-23] MEDS: 0.9% NaCl Peripheral Flush Adult/Peds IV (22:40)
[2018-08-23 23:06] LABS: Bedside Glucose 189 mg/dL (70-110)
[2018-08-24] MEDS: Insulin Lispro 100 UNIT/ML INSULN.PEN SC ×4 (02:53→22:02)
[2018-08-24 03:06] LABS: Bedside Glucose 194 mg/dL (70-110)
--- NOTE | 2018-08-24 03:49 | NURSING ---
Reviewed and agree with LPNs fims and handoff
[2018-08-24 06:30] VITALS: PULSE 60
[2018-08-24] MEDS: hydrALAZINE 50 MG Tablet PO ×3 (06:30→21:54)
[2018-08-24] MEDS: busPIRone 5 MG Tablet PO ×3 (06:30→21:53)
[2018-08-24] MEDS: Enoxaparin 30 MG/0.3 ML Syringe SC (06:30)
[2018-08-24 07:36] LABS: Bedside Glucose 146 mg/dL (70-110)
--- NOTE | 2018-08-24 07:37 | PCM.PN.HOSP ---
Subjective: Patient was seen and examined. Denies any new complaints. Therapy is going well. Vitals are stable. Urine output has been good. Blood sugars are fairly controlled. FOBT done on 08/19/18 was positive. Transfused 1 unit of packed RBCs on Objective: General: Alert, Oriented x3, Cooperative HEENT: Atraumatic, PERRLA, EOMI, Normocephalic Neck: Supple, No JVD, Negative Carotid Bruits Lungs: Clear to auscultation, Air Entry is equal in both lungs. Cardiovascular: Regular rate, Regular Rhythm, Normal S1, Normal S2, No murmurs Abdomen: Bowel Sounds Present, Soft, Non Tender, Non-Distended Extremities: No edema, Capillary Refill Less than 3 Seconds Skin: No rashes, No breakdown Musculoskeletal: Arthritic Changes, Lower extremity weakness present, ARISTIDES wraps to legs Neurological: Cranial nerves II-XII grossly intact Psych/Mental Status: Normal Affect, Appropriate Vitals/I&O's: Vital Signs Temp Pulse Resp BP Pulse Ox 97.7 F L 60 16 151/76 H 99 08/23/18 20:11 08/24/18 06:30 08/23/18 20:11 08/23/18 20:11 08/23/18 20:11 Oxygen Flow Rate (L/min) 96 Oxygen Delivery Method Room Air Weight: 113 kg Body Mass Index (BMI) 47.2 Intake and Output for Last 24 Hours 08/22/18 08/23/18 08/24/18 23:59 23:59 23:59 Intake Total 1780 / 1780 380 / 380 Output Total 1500 / 1500 1250 / 1250 Balance 280 / 280 -870 / -870 Laboratory Results 08/23/18 05:25: Vitamin B12 799 08/23/18 05:25: Iron 35 L, TIBC 184 L 08/23/18 11:56: POC Glucose 171 H 08/23/18 16:41: POC Glucose 241 H 08/23/18 22:37: POC Glucose 189 H 08/24/18 02:53: POC Glucose 194 H 08/24/18 06:54: POC Glucose 146 H Current Medications Acetaminophen (Tylenol) 650 mg PO Q8H PRN PRN PRN Reason: PAIN Last Admin: 08/20/18 11:39 Dose: 650 mg Atorvastatin Calcium (Lipitor) 20 mg PO QHS [facility] Last Admin: 08/23/18 22:39 Dose: 20 mg Bisacodyl (Dulcolax) 10 mg RECTAL .PRN X 1 PRN PRN Reason: Constipation Bisacodyl (Dulcolax) 10 mg RECTAL .PRN X 1 PRN PRN Reason: Constipation Buspirone HCl (Buspar) 5 mg PO TID [facility] Last Admin: 08/24/18 06:30 Dose: 5 mg Calamine/Phenol (Calmoseptine Ointment) 1 applic TOPICAL BID [facility]; Protocol Last Admin: 08/23/18 22:52 Dose: 1 applicatio Calcium Carbonate (Os-Chinedu 500) 500 mg PO BID [facility] Last Admin: 08/23/18 22:39 Dose: 500 mg Carvedilol (Coreg) 25 mg PO BID [facility] Last Admin: 08/23/18 22:38 Dose: 25 mg Enoxaparin Sodium (Lovenox) 30 mg SC DAILY@0600 [facility] Last Admin: 08/24/18 06:30 Dose: 30 mg Epoetin Ismael (Procrit) 10,000 units SC X1 ONE Stop: 08/27/18 08:01 Ferrous Sulfate (Ferrous Sulfate) 325 mg PO TIDCM [facility] Last Admin: 08/23/18 17:03 Dose: 325 mg Gabapentin (Neurontin) 300 mg PO QHS [facility] Last Admin: 08/23/18 22:39 Dose: 300 mg Hydralazine HCl (Apresoline) 50 mg PO TID [facility] Last Admin: 08/24/18 06:30 Dose: 50 mg Hydrocortisone Acetate (Anusol Hc) 25 mg RECTAL BID PRN PRN PRN Reason: Hemorrhoids Last Admin: 08/19/18 17:58 Dose: 25 mg Insulin Glargine (Lantus ([facility])) 42 units SC BREAKFAST [facility] Last Admin: 08/23/18 08:08 Dose: 42 units Insulin Human Lispro (Humalog Kwikpen ([facility])) 0 unit SC ACHS & 0200 [facility]; Protocol Last Admin: 08/24/18 02:53 Dose: 2 u Insulin Human Lispro (Humalog Kwikpen ([facility])) 12 unit SC TIDAC [facility] Last Admin: 08/23/18 17:03 Dose: 12 u Losartan Potassium (Cozaar) 50 mg PO DAILY [facility] Last Admin: 08/23/18 08:08 Dose: 50 mg Magnesium Hydroxide (Milk Of Magnesia) 30 ml PO .PRN X 1 PRN PRN Reason: Constipation Montelukast Sodium (Singulair) 10 mg PO QHS [facility] Last Admin: 08/23/18 22:39 Dose: 10 mg Multivitamins/Minerals (Multivitamin With Minerals) 1 tablet PO DAILY@0800 [facility] Last Admin: 08/23/18 08:08 Dose: 1 tablet Ondansetron HCl (Zofran Odt) 4 mg PO Q8H PRN PRN PRN Reason: NAUSEA Pantoprazole Sodium (Protonix) 20 mg PO DAILY [facility] Last Admin: 08/23/18 08:07 Dose: 20 mg Polyethylene Glycol (Miralax) 17 gm PO DAILY [facility] Last Admin: 08/23/18 08:32 Dose: Not Given Prednisone () 30 mg PO DAILY@0800 [facility] Senna/Docusate Sodium (Senokot-S, Leti-Colace) 2 tablet PO BID PRN PRN Reason: CONSTIPATION Sertraline HCl (Zoloft) 100 mg PO DAILY [facility] Last Admin: 08/23/18 08:07 Dose: 100 mg Sodium Chloride () 5 - 15 ml IV UD PRN PRN Reason: SALINE FLUSH Last Admin: 08/23/18 22:40 Dose: 10 ml Medical Necessity - Tobacco Use Smoking Status: Never smoker Tobacco Use: Non-smoker Assessment/Plan All Active Problems Debility (Acute) 58-year female admitted on rehab with gradual bilateral lower extremity weakness, recently diagnosed with CIDP. 1. Debility secondary to chronic inflammatory demyelinating polyneuropathy, s/p 5 rounds of plasmapheresis at [facility], on prednisone 30mg, therapy ongoing 2. Anemia, secondary to possible GI bleed, s/p 1 unit pRBC, on pantoprazole, oral iron needs to have colonoscopy/EGD in the outpatient 3. HF of unknown etiology, Lasix is discontinued 4. CKD 4 secondary to diabetic nephropathy, CR is slightly improved, nephrology follwoing 5. 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 Sodium improved to 133. K3.7. 6. Type 2 diabetes mellitus, BS are controlled, continue on chronic insulin, continue with accucheks and ISS 7. Hypertension, controlled, continue on amlodipine 10 mg daily, carvedilol 25 mg daily, hydralazine 50 mg 3 times daily and losartan 50 mg daily. 8. DVT PPx- Lovenox SC Code Visit Inpatient E&M: 41835 Subs Hosp L2
[2018-08-24 07:55] VITALS: BP 130/83; PULSE 64; RESP 18; TEMP 36.8; O2SAT 97
[2018-08-24] MEDS: Sertraline 100 MG Tablet PO (07:58)
[2018-08-24] MEDS: Calcium (Elemental) 500 MG Tablet PO ×2 (07:58→22:01)
[2018-08-24] MEDS: Losartan Potassium 50 MG Tablet PO (07:58)
[2018-08-24] MEDS: Pantoprazole Sodium 20 MG Tablet PO (07:58)
[2018-08-24] MEDS: Insulin Lispro 100 UNIT/ML INSULN.PEN 12 UNIT SC ×3 (07:58→17:10)
[2018-08-24] MEDS: Ferrous Sulfate 325 MG Tablet PO ×3 (07:59→17:10)
[2018-08-24] MEDS: Multivitamins,Ther W-Minerals Tablet 1 TABLET PO (07:59)
[2018-08-24] MEDS: Carvedilol 25 MG Tablet PO ×2 (07:59→22:01)
[2018-08-24] MEDS: predniSONE 10 MG Tablet 30 MG PO (07:59)
[2018-08-24] MEDS: Menthol/Lanolin/Calamine/Znox 113 GM Tube 1 APPLIC TOPICAL ×2 (08:02→22:01)
[2018-08-24] MEDS: 0.9% NaCl Peripheral Flush Adult/Peds IV (09:13)
[2018-08-24 09:47] LABS: Hematocrit 26.2 % (37-47); Hemoglobin 8.6 g/dl (12.0-15.0); Mean Corp Hgb Conc 32.8 g/gl (32-36); Mean Corpuscular Volume 85.3 fL (81-99); Mean Platelet Vol. 10.3 fl (6.2-12.0); Platelet Count 150 K/mm3 (150-450); RBC Distribution Width CV 15.6 % (11.6-14.6); RBC Distribution Width SD 46.3 fl (35.1-43.9); Red Blood Count 3.07 M/mm3 (4.2-5.4); White Blood Count 8.8 K/mm3 (4.4-11.0)
[2018-08-24 09:49] LABS: Differential Indicated MANUAL DIFF; POSITIVE COUNT YES; POSITIVE DIFFERENTIAL NO; POSITIVE MORPHOLOGY YES
--- NOTE | 2018-08-24 09:55 | CASEMGMT ---
Insurance Patient approved with last cover day being 08/29/18, due to exhaustion of benefits. Patient to discharge or financial responsibility to begin on 08/30/18. Auth#[id number] JOSE Davidson
[2018-08-24 10:21] LABS: Anion Gap 11 (5-15); BUN 107 mg/dL (7-18); BUN/Creat Ratio 49.8 RATIO (10-20); Calcium,Total 8.2 mg/dL (8.5-10.1); Chloride 105 mmol/L (98-107); Creatinine, Serum 2.15 mg/dL (0.55-1.02); EST Glomerular Filtration Rate 25 mL/min (>60); Est Glom Filt Rate - Afr Amer 30 mL/min (>60); Estimated Creatinine Clearance 22.05 ml/min; Ferritin 435 ng/mL (8-252); Glucose 215 mg/dL (74-106); Iron 55 ug/dL (50-170); Iron Binding Capacity,Total 204 ug/dL (250-450); Potassium 3.9 mmol/L (3.5-5.1); Sodium Level 139 mmol/L (136-145)
[2018-08-24 10:29] LABS: Eosinophil 1 % (0-5); Lymphocyte 9 % (19-41); Metamyelocyte 3 % (0-1); Monocyte 5 % (0-10); Neutrophil-Segmented 82 % (47-70); Total Cells Counted 100 (MANUAL DIFF)
[2018-08-24 10:30] LABS: Platelet Estimate ADEQUATE (ADEQ); Red Cell Morphology NORM C+C NORMAL (NORM C&C)
[2018-08-24 10:31] LABS: Absolute Neutrophil Count 7.2 X10^3/uL (2.0-7.7)
--- NOTE | 2018-08-24 11:24 | PCM.PN.NEU ---
Subjective: No issues overnight. Care discussed with the nursing staff. Further therapy details as per PT/OT notes. S/P blood transfusion for anemia of chronic disease. - Physical Exam General: Alert HEENT: Normocephalic Neck: Supple Lungs: Normal air movement Cardiovascular: Normal S1, Normal S2 Abdomen: Bowel Sounds Present Extremities: No cyanosis Neurological: - - consious, alert, AoAx3, CN 2-12 grossly intact, power 5/5 both UE, 3/5 right LE, 2/5 left LE, Reflexes + B/L B/S/T and areflexia B/L K/A, gait deferred, no sensory loss, no cerebellar signs UE. Psych/Mental Status: Normal Affect Vital Signs Temp Pulse Resp BP Pulse Ox 98.2 F 64 18 130/83 H 97 08/24/18 07:55 08/24/18 07:55 08/24/18 07:55 08/24/18 07:55 08/24/18 07:55 Oxygen Flow Rate (L/min) 96 Oxygen Delivery Method Room Air Weight: 115.212 kg Body Mass Index (BMI) 47.2 Intake and Output for Last 24 Hours 08/22/18 08/23/18 08/24/18 23:59 23:59 23:59 Intake Total 1780 / 1780 380 / 380 480 / 480 Output Total 1500 / 1500 1250 / 1250 Balance 280 / 280 -870 / -870 480 / 480 Laboratory Tests Past 24 Hrs 08/24/18 08/24/18 09:20 09:20 WBC 8.8 RBC 3.07 L Hgb 8.6 L Hct 26.2 L MCV 85.3 MCH 28.0 MCHC 32.8 RDW 15.6 H RDW Differential 46.3 H Plt Count 150 MPV 10.3 Neut % (Auto) Not Reportable Absolute Neuts (auto) 7.2 Absolute Lymphs (auto) 0.80 L Total Counted 100 Neutrophils % (Manual) 82 H Lymphocytes % (Manual) 9 L Monocytes % (Manual) 5 Eosinophils % (Manual) 1 Metamyelocytes % 3 H Diff Path Review May foll Platelet Estimate ADEQUATE RBC Morphology NORM C+C Sodium 139 Potassium 3.9 Chloride 105 Carbon Dioxide 23.0 Anion Gap 11 BUN 107 H* Creatinine 2.15 H Estim Creat Clear Calc 22.05 Est GFR (MDRD) Af Amer 30 L Est GFR (MDRD) Non-Af 25 L BUN/Creatinine Ratio 49.8 H Glucose 215 H Calcium 8.2 L Iron 55 TIBC 204 L Iron Saturation 27.0 Ferritin 435 H POC Glucose 08/24/18 08/24/18 08/23/18 06:54 02:53 22:37 POC Glucose 146 H 194 H 189 H 08/23/18 08/23/18 16:41 11:56 POC Glucose 241 H 171 H Medical Necessity - Tobacco Use Smoking Status: Never smoker Tobacco Use: Non-smoker Assessment/Plan All Active Problems Debility (Acute) 58 yr F with PMH HTN, HLD, DM, CKD, Obesity re-admitted to [facility] on 07/28/18 s/p debility post B/L LE weakness and falls, for > 3 hrs therapy daily, with a goal of returning back home at or near her prior level of functional independence. Per patient she started having difficulty walking, with frequent falls, with bilateral LE weakness, gradually progressive over the past few months around last December 2017, with right foot drop, admitted initially to [facility] hospital on 06/14/2018, then to [facility] on 06/20/2018. NCS reported to show demyelinating features with conduction block consistent with CIDP, started on IV Solumedrol 1 g daily for 5 days following which patient felt she was doing better, continued on Prednisone 60 mg daily, IVIG avoided due to CKD, Rheumatological work up negative. LP, Lyme's ab testing, West Nile AB testing was negative. LP done showed WBCs-11, RBCs-0, Protein-33. MRI brain reported nothing acute, MRI C spine reported to show Broad-based midline and para midline disc herniation at C5-6 more prominent on the left side impinging on the left C6 nerve root and MRI L spine reported to show Lumbar spondylosis with disc herniations and foraminal narrowing at L4-5 and L5-S1. Patient was later discharged to [facility] on 07/16/18 for plasmapheresis for worsening LE weakness. She is followed by nephrology for CKD and is planned to see vascular surgery as outpatient for fistula placement. Currently maintained on daily prednisone. Plan -Physical therapy for gait and balance -Occupational Therapy for ADLs -As needed analgesics -Bowel protocol -DVT prophylaxis: SCDs, Lovenox -GI prophylaxis- on Pantoprazole. -Hoarseness of voice- new complaint, voice rest, humidifier therapy, ENT consult as outpatient. -CIDP - On Prednisone 30 mg PO once daily. Slow taper of steroid as outpatient. On GI prophylaxis and on Calcium -Hypertension - well controlled and stable on current medication of Coreg, losartan and Hydralazine -HLD - continue home dose of Lipitor -DM type II - blood sugars ACHS, Moderate sliding scale, On Insulin -CKD-Nephrology consult, avoid nephrotoxic drugs, on d/c follow up appointment with Dr. Payan for Fistula placement. Dr. Lew following, decrease in HB and slight raise in creatinine to 2.8 (08/16/18), medications adjusted, lasix, amlodipine discontinued and Procrit given by Nephrology. S/P Blood transfusion, Hb8.6, Cr-2.15 (08/24/18). -Obesity - BMI is 44.7, encourage weight loss, consult nutrition, documentation of snoring with obesity, outpatient sleep study on discharge. -Depression- on Zoloft and BuSpar -Fall precautions -Further medical management per hospitalist recommendations -Follow up with PCP, Nephrology, Vascular surgery, spine surgery, ENT and Neurology as outpatient following discharge
[2018-08-24 11:50] LABS: Bedside Glucose 210 mg/dL (70-110)
--- NOTE | 2018-08-24 14:13 | PCM.RU.DC ---
Rehab Discharge Summary DATE OF ADMISSION: 07/28/18 DATE OF DISCHARGE: 08/30/18 - Rehab Diagnosis Debility s/p CIDP Subjective: Patient no issues overnight. Discussed with the nursing staff. - Physical Exam General: Alert HEENT: Normocephalic Neck: Supple Lungs: Normal air movement Cardiovascular: Normal S1, Normal S2 Abdomen: Bowel Sounds Present Extremities: No cyanosis Neurological: - - consious, alert, AoAx3, CN 2-12 grossly intact, power 5/5 both UE, 3/5 right LE, 2/5 left LE, Reflexes + B/L B/S/T and areflexia B/L K/A, gait deferred, no sensory loss, no cerebellar signs UE. Psych/Mental Status: Normal Affect Vital Signs Temp Pulse Resp BP Pulse Ox 98.2 F 64 18 130/83 H 97 08/24/18 07:55 08/24/18 07:55 08/24/18 07:55 08/24/18 07:55 08/24/18 07:55 Oxygen Flow Rate (L/min) 96 Oxygen Delivery Method Room Air Weight: 115.212 kg Body Mass Index (BMI) 47.2 Intake and Output for Last 24 Hours 08/22/18 08/23/18 08/24/18 23:59 23:59 23:59 Intake Total 1780 / 1780 380 / 380 480 / 480 Output Total 1500 / 1500 1250 / 1250 Balance 280 / 280 -870 / -870 480 / 480 Laboratory Tests Past 24 Hrs 08/24/18 08/24/18 09:20 09:20 WBC 8.8 RBC 3.07 L Hgb 8.6 L Hct 26.2 L MCV 85.3 MCH 28.0 MCHC 32.8 RDW 15.6 H RDW Differential 46.3 H Plt Count 150 MPV 10.3 Neut % (Auto) Not Reportable Absolute Neuts (auto) 7.2 Absolute Lymphs (auto) 0.80 L Total Counted 100 Neutrophils % (Manual) 82 H Lymphocytes % (Manual) 9 L Monocytes % (Manual) 5 Eosinophils % (Manual) 1 Metamyelocytes % 3 H Diff Path Review May foll Platelet Estimate ADEQUATE RBC Morphology NORM C+C Sodium 139 Potassium 3.9 Chloride 105 Carbon Dioxide 23.0 Anion Gap 11 BUN 107 H* Creatinine 2.15 H Estim Creat Clear Calc 22.05 Est GFR (MDRD) Af Amer 30 L Est GFR (MDRD) Non-Af 25 L BUN/Creatinine Ratio 49.8 H Glucose 215 H Calcium 8.2 L Iron 55 TIBC 204 L Iron Saturation 27.0 Ferritin 435 H POC Glucose 08/24/18 08/24/18 08/24/18 11:38 06:54 02:53 POC Glucose 210 H 146 H 194 H 08/23/18 08/23/18 22:37 16:41 POC Glucose 189 H 241 H Discharge Diet: 1800 Calorie Control Diet, Carb Control Diet, - - Calorie controlled diet, Renal Carb controlled diet Call your doctor if you observe: Fever of 101 or Higher, Coldness, Increased Pain, Numbness or Tingling, Change in Color, Inability to urinate, Inability to have a bowel movement, Using more than one pad per hour, Shortness of breath, Dizziness, Fainting spells, Swelling in the ankles, Chest pain, Prolonged hiccoughing, Increased palpitations (irregular heartbeat), Calf discomfort, Uncontrolled pain Home Medications: Medications to take at Discharge Montelukast [Singulair] 10 mg PO QHS 10/29/13 Gabapentin [Neurontin] 300 mg PO QHS 06/14/18 Multivit-Min/Iron/Folic/Lutein [Centrum Silver Women Tablet] 1 tab PO DAILY 06/14/18 Sertraline HCl 100 mg PO DAILY 06/14/18 Calcium Carbonate 500 mg PO BID 06/20/18 Insulin Glargine [Lantus SoloStar Pen] 37 units SC BREAKFAST 06/20/18 Pantoprazole Sodium [Protonix] 20 mg PO DAILY 06/20/18 Atorvastatin Calcium [Lipitor] 20 mg PO QHS 07/28/18 Carvedilol [Coreg (Beta Shannon)] 25 mg PO BID 07/28/18 busPIRone [Buspar] 5 mg PO TID 07/28/18 Ferrous Sulfate 325 mg PO TIDCM tablet 08/24/18 Hydrocortisone [Anusol Hc] 25 mg RECTAL BID PRN PRN suppos. 08/24/18 Insulin Lispro [Humalog KwikPen] 12 unit SC TIDAC insuln.pen 08/24/18 Losartan Potassium [Cozaar] 50 mg PO DAILY tablet 08/24/18 hydrALAZINE [Apresoline] 50 mg PO TID tablet 08/24/18 predniSONE tablet 30 mg PO DAILY@0800 #30 08/24/18 Primary Care Physician: Param Razo MD [Primary Care Provider] - Please follow up with your Primary Care Physician in: Follow up with PCP in 1-2 weeks When: Follow up [facility] Neurology in 2-4 weeks When: Follow up with Nephrology in 1-2 weeks When: F/U with Vascular surgery (for possible fistula placement) in 1-2 weeks When: F/U with Spine surgery (for spondylosis and disc disease) in 1-2 weeks When: Follow up with ENT (for hoarseness of voice) MICHAEL Rehab Course 58 yr F with PMH HTN, HLD, DM, CKD, Obesity re-admitted to [facility] on 07/28/18 s/p debility post B/L LE weakness and falls, for > 3 hrs therapy daily, with a goal of returning back home at or near her prior level of functional independence. Per patient she started having difficulty walking, with frequent falls, with bilateral LE weakness, gradually progressive over the past few months around last December 2017, with right foot drop, admitted initially to [facility] hospital on 06/14/2018, then to [facility] on 06/20/2018. NCS reported to show demyelinating features with conduction block consistent with CIDP, started on IV Solumedrol 1 g daily for 5 days following which patient felt she was doing better, continued on Prednisone 60 mg daily, IVIG avoided due to CKD, Rheumatological work up negative. LP, Lyme's ab testing, West Nile AB testing was negative. LP done showed WBCs-11, RBCs-0, Protein-33. MRI brain reported nothing acute, MRI C spine reported to show Broad-based midline and para midline disc herniation at C5-6 more prominent on the left side impinging on the left C6 nerve root and MRI L spine reported to show Lumbar spondylosis with disc herniations and foraminal narrowing at L4-5 and L5-S1. Patient was later discharged to [facility] on 07/16/18 for plasmapheresis for worsening LE weakness. Currently maintained on daily prednisone. Following re-admission to rehab unit she was followed by nephrology, needed 1 unit PRBC transfusion for anemia of CKD, continued on tapering dose of Prednisone, with close monitoring of blood sugar, was also followed by hospitalist, tolerated therapies well, with some improvement in the LE weakness, On prednisone 30 mg PO once daily on discharge with plan to very slow taper as outpatient Neurology visit, had further uncomplicated rehab stay, discharge to [place] for further therapy. Follow up with PCP, Nephrology, Vascular surgery (for fistula placement evaluation), spine surgery, ENT and Neurology as outpatient following discharge. Meaningful Use Info Meaningful Use Diagnoses (Choose all that apply): None applicable
[2018-08-24 14:17] VITALS: BP 152/94; PULSE 67; RESP 18; O2SAT 97
[2018-08-24 14:18] VITALS: PULSE 67
--- NOTE | 2018-08-24 14:23 | DS.PCM_ITS ---
Rehab Discharge Summary DATE OF ADMISSION: 07/28/18 DATE OF DISCHARGE: 08/30/18 - Rehab Diagnosis Debility s/p CIDP Subjective: Patient no issues overnight. Discussed with the nursing staff. - Physical Exam General: Alert HEENT: Normocephalic Neck: Supple Lungs: Normal air movement Cardiovascular: Normal S1, Normal S2 Abdomen: Bowel Sounds Present Extremities: No cyanosis Neurological: - - consious, alert, AoAx3, CN 2-12 grossly intact, power 5/5 both UE, 3/5 right LE, 2/5 left LE, Reflexes + B/L B/S/T and areflexia B/L K/A, gait deferred, no sensory loss, no cerebellar signs UE. Psych/Mental Status: Normal Affect Vital Signs Temp Pulse Resp BP Pulse Ox 98.2 F 64 18 130/83 H 97 08/24/18 07:55 08/24/18 07:55 08/24/18 07:55 08/24/18 07:55 08/24/18 07:55 Oxygen Flow Rate (L/min) 96 Oxygen Delivery Method Room Air Weight: 115.212 kg Body Mass Index (BMI) 47.2 Intake and Output for Last 24 Hours 08/22/18 08/23/18 08/24/18 23:59 23:59 23:59 Intake Total 1780 / 1780 380 / 380 480 / 480 Output Total 1500 / 1500 1250 / 1250 Balance 280 / 280 -870 / -870 480 / 480 Laboratory Tests Past 24 Hrs 08/24/18 08/24/18 09:20 09:20 WBC 8.8 RBC 3.07 L Hgb 8.6 L Hct 26.2 L MCV 85.3 MCH 28.0 MCHC 32.8 RDW 15.6 H RDW Differential 46.3 H Plt Count 150 MPV 10.3 Neut % (Auto) Not Reportable Absolute Neuts (auto) 7.2 Absolute Lymphs (auto) 0.80 L Total Counted 100 Neutrophils % (Manual) 82 H Lymphocytes % (Manual) 9 L Monocytes % (Manual) 5 Eosinophils % (Manual) 1 Metamyelocytes % 3 H Diff Path Review May foll Platelet Estimate ADEQUATE RBC Morphology NORM C+C Sodium 139 Potassium 3.9 Chloride 105 Carbon Dioxide 23.0 Anion Gap 11 BUN 107 H* Creatinine 2.15 H Estim Creat Clear Calc 22.05 Est GFR (MDRD) Af Amer 30 L Est GFR (MDRD) Non-Af 25 L BUN/Creatinine Ratio 49.8 H Glucose 215 H Calcium 8.2 L Iron 55 TIBC 204 L Iron Saturation 27.0 Ferritin 435 H POC Glucose 08/24/18 08/24/18 08/24/18 11:38 06:54 02:53 POC Glucose 210 H 146 H 194 H 08/23/18 08/23/18 22:37 16:41 POC Glucose 189 H 241 H Discharge Diet: 1800 Calorie Control Diet, Carb Control Diet, - - Calorie controlled diet, Renal Carb controlled diet Call your doctor if you observe: Fever of 101 or Higher, Coldness, Increased Pain, Numbness or Tingling, Change in Color, Inability to urinate, Inability to have a bowel movement, Using more than one pad per hour, Shortness of breath, Dizziness, Fainting spells, Swelling in the ankles, Chest pain, Prolonged hiccoughing, Increased palpitations (irregular heartbeat), Calf discomfort, Uncontrolled pain Home Medications: Medications to take at Discharge Montelukast [Singulair] 10 mg PO QHS 10/29/13 Gabapentin [Neurontin] 300 mg PO QHS 06/14/18 Multivit-Min/Iron/Folic/Lutein [Centrum Silver Women Tablet] 1 tab PO DAILY 06/14/18 Sertraline HCl 100 mg PO DAILY 06/14/18 Calcium Carbonate 500 mg PO BID 06/20/18 Insulin Glargine [Lantus SoloStar Pen] 37 units SC BREAKFAST 06/20/18 Pantoprazole Sodium [Protonix] 20 mg PO DAILY 06/20/18 Atorvastatin Calcium [Lipitor] 20 mg PO QHS 07/28/18 Carvedilol [Coreg (Beta Shannon)] 25 mg PO BID 07/28/18 busPIRone [Buspar] 5 mg PO TID 07/28/18 Ferrous Sulfate 325 mg PO TIDCM tablet 08/24/18 Hydrocortisone [Anusol Hc] 25 mg RECTAL BID PRN PRN suppos. 08/24/18 Insulin Lispro [Humalog KwikPen] 12 unit SC TIDAC insuln.pen 08/24/18 Losartan Potassium [Cozaar] 50 mg PO DAILY tablet 08/24/18 hydrALAZINE [Apresoline] 50 mg PO TID tablet 08/24/18 predniSONE tablet 30 mg PO DAILY@0800 #30 08/24/18 Primary Care Physician: Param Razo MD [Primary Care Provider] - Please follow up with your Primary Care Physician in: Follow up with PCP in 1-2 weeks When: [facility] in 2[facility]4 weeks When: Follow up with Nephrology in 1-2 weeks When: F/U with Vascular surgery (for possible fistula placement) in 1-2 weeks When: F/U with Spine surgery (for spondylosis and disc disease) in 1-2 weeks When: Follow up with ENT (for hoarseness of voice) MICHAEL Rehab Course 58 yr F with PMH HTN, HLD, DM, CKD, Obesity re-admitted to [facility] on 07/28/18 s/p debility post B/L LE weakness and falls, for > 3 hrs therapy daily, with a goal of returning back home at or near her prior level of functional independence. Per patient she started having difficulty walking, with frequent falls, with bilateral LE weakness, gradually progressive over the past few months around last December 2017, with right foot drop, admitted initially to [facility] hospital on 06/14/2018, then to [facility] on 06/20/2018. NCS reported to show demyelinating features with conduction block consistent with CIDP, started on IV Solumedrol 1 g daily for 5 days following which patient felt she was doing better, continued on Prednisone 60 mg daily, IVIG avoided due to CKD, Rheumatological work up negative. LP, Lyme's ab testing, West Nile AB testing w as negative. LP done showed WBCs-11, RBCs-0, Protein-33. MRI brain reported nothing acute, MRI C spine reported to show Broad-based midline and para midline disc herniation at C5-6 more prominent on the left side impinging on the left C6 nerve root and MRI L spine reported to show Lumbar spondylosis with disc herniations and foraminal narrowing at L4-5 and L5-S1. Patient was later discharged to [facility] on 07/16/18 for plasmapheresis for worsening LE weakness. Currently maintained on daily prednisone. Following re-admission to rehab unit she was followed by nephrology, needed 1 unit PRBC transfusion for anemia of CKD, continued on tapering dose of Prednisone, with close monitoring of blood sugar, was also followed by hospitalist, tolerated therapies well, with some improvement in the LE weakness, On prednisone 30 mg PO once daily on discharge with plan to very slow taper as outpatient Neurology visit, had further uncomplicated rehab stay, discharge to [place] for further therapy. Follow up with PCP, Nephrology, Vascular surgery (for fistula placement evaluation), spine surgery, ENT and Neurology as outpatient following discharge. Meaningful Use Info Meaningful Use Diagnoses (Choose all that apply): None applicable
[2018-08-24 16:45] LABS: Bedside Glucose 160 mg/dL (70-110)
[2018-08-24 20:25] VITALS: BP 132/72; PULSE 65; RESP 18; TEMP 36.6; O2SAT 97
[2018-08-24 21:54] VITALS: BP 151/70; PULSE 70
[2018-08-24] MEDS: Gabapentin 300 MG Capsule PO (22:01)
[2018-08-24] MEDS: Montelukast 10 MG Tablet PO (22:01)
[2018-08-24] MEDS: Atorvastatin Calcium 20 MG Tablet PO (22:01)
[2018-08-24 22:16] LABS: Bedside Glucose 357 mg/dL (70-110)
--- NOTE | 2018-08-25 00:43 | NURSING ---
Reviewed and agree with LPNs fims and handoff
[2018-08-25] MEDS: Insulin Lispro 100 UNIT/ML INSULN.PEN SC ×5 (02:19→21:08)
[2018-08-25 02:21] LABS: Bedside Glucose 299 mg/dL (70-110)
[2018-08-25 06:14] VITALS: PULSE 72
[2018-08-25] MEDS: busPIRone 5 MG Tablet PO ×3 (06:14→21:08)
[2018-08-25] MEDS: hydrALAZINE 50 MG Tablet PO ×3 (06:14→21:08)
[2018-08-25] MEDS: Enoxaparin 30 MG/0.3 ML Syringe SC (06:14)
[2018-08-25 07:05] LABS: Bedside Glucose 174 mg/dL (70-110)
[2018-08-25 07:07] VITALS: BP 159/75; PULSE 72; RESP 18; TEMP 36.7; O2SAT 98
[2018-08-25] MEDS: Insulin Lispro 100 UNIT/ML INSULN.PEN 12 UNIT SC ×3 (07:08→16:44)
[2018-08-25] MEDS: predniSONE 10 MG Tablet 30 MG PO (07:09)
[2018-08-25] MEDS: Multivitamins,Ther W-Minerals Tablet 1 TABLET PO (07:09)
[2018-08-25] MEDS: Carvedilol 25 MG Tablet PO ×2 (07:09→21:08)
[2018-08-25] MEDS: Losartan Potassium 50 MG Tablet PO (07:09)
[2018-08-25] MEDS: Calcium (Elemental) 500 MG Tablet PO ×2 (07:09→21:09)
[2018-08-25] MEDS: Ferrous Sulfate 325 MG Tablet PO ×3 (07:09→16:43)
[2018-08-25] MEDS: Sertraline 100 MG Tablet PO (07:10)
[2018-08-25] MEDS: Pantoprazole Sodium 20 MG Tablet PO (07:10)
[2018-08-25] MEDS: Menthol/Lanolin/Calamine/Znox 113 GM Tube 1 APPLIC TOPICAL ×2 (07:11→21:10)
[2018-08-25 11:46] LABS: Bedside Glucose 253 mg/dL (70-110)
[2018-08-25 12:57] VITALS: BP 153/76; PULSE 74
[2018-08-25 13:00] VITALS: PULSE 74
[2018-08-25 16:55] LABS: Bedside Glucose 271 mg/dL (70-110)
[2018-08-25 19:17] VITALS: BP 153/76; PULSE 70; RESP 16; TEMP 36.9; O2SAT 94
[2018-08-25 21:08] VITALS: PULSE 70
[2018-08-25] MEDS: Atorvastatin Calcium 20 MG Tablet PO (21:08)
[2018-08-25] MEDS: Gabapentin 300 MG Capsule PO (21:08)
[2018-08-25] MEDS: Montelukast 10 MG Tablet PO (21:09)
[2018-08-25 21:16] LABS: Bedside Glucose 276 mg/dL (70-110)
[2018-08-26] MEDS: Insulin Lispro 100 UNIT/ML INSULN.PEN SC ×5 (03:18→20:58)
[2018-08-26 03:20] LABS: Bedside Glucose 327 mg/dL (70-110)
[2018-08-26] MEDS: Enoxaparin 30 MG/0.3 ML Syringe SC (05:25)
[2018-08-26] MEDS: busPIRone 5 MG Tablet PO ×3 (05:25→20:58)
[2018-08-26 05:26] VITALS: BP 155/74; PULSE 66
[2018-08-26] MEDS: hydrALAZINE 50 MG Tablet PO ×3 (05:26→20:57)
[2018-08-26 06:31] LABS: Bedside Glucose 156 mg/dL (70-110)
[2018-08-26 07:05] VITALS: BP 155/74; PULSE 66; RESP 16; TEMP 36.6; O2SAT 96
[2018-08-26] MEDS: Ferrous Sulfate 325 MG Tablet PO ×3 (07:33→17:28)
[2018-08-26] MEDS: Multivitamins,Ther W-Minerals Tablet 1 TABLET PO (07:34)
[2018-08-26] MEDS: predniSONE 10 MG Tablet 30 MG PO (07:34)
[2018-08-26] MEDS: Carvedilol 25 MG Tablet PO ×2 (07:34→20:58)
[2018-08-26] MEDS: Losartan Potassium 50 MG Tablet PO (07:35)
[2018-08-26] MEDS: Pantoprazole Sodium 20 MG Tablet PO (07:35)
[2018-08-26] MEDS: Calcium (Elemental) 500 MG Tablet PO ×2 (07:35→20:57)
[2018-08-26] MEDS: Sertraline 100 MG Tablet PO (07:36)
[2018-08-26] MEDS: Insulin Lispro 100 UNIT/ML INSULN.PEN 12 UNIT SC ×3 (08:18→17:28)
[2018-08-26] MEDS: Menthol/Lanolin/Calamine/Znox 113 GM Tube 1 APPLIC TOPICAL ×2 (08:19→20:59)
[2018-08-26 11:36] LABS: Bedside Glucose 172 mg/dL (70-110)
[2018-08-26 13:28] VITALS: BP 157/87; PULSE 74
[2018-08-26 16:40] LABS: Bedside Glucose 226 mg/dL (70-110)
[2018-08-26 19:50] VITALS: PULSE 80; RESP 18; O2SAT 95
[2018-08-26 19:51] VITALS: BP 145/82; PULSE 80; RESP 18; TEMP 37.3; O2SAT 95
--- NOTE | 2018-08-26 20:38 | PN_ITS ---
Subjective: Patient was seen and examined. She had irritation of right eye earlier that seemed to have resolved. Denies any blurred vision, eye discharge. No fever or cchills. Objective: General: Alert, Oriented x3, Cooperative HEENT: Atraumatic, PERRLA, EOMI, Normocephalic Neck: Supple, No JVD, Negative Carotid Bruits Lungs: Clear to auscultation, Air Entry is equal in both lungs. Cardiovascular: Regular rate, Regular Rhythm, Normal S1, Normal S2, No murmurs Abdomen: Bowel Sounds Present, Soft, Non Tender, Non-Distended Extremities: No edema, Capillary Refill Less than 3 Seconds Skin: No rashes, No breakdown Musculoskeletal: Arthritic Changes, Lower extremity weakness present, ARISTIDES wraps to legs Neurological: Cranial nerves II-XII grossly intact Psych/Mental Status: Normal Affect, Appropriate Vitals/I&O's: Vital Signs Temp Pulse Resp BP Pulse Ox 99.2 F H 80 18 145/82 H 95 08/26/18 19:51 08/26/18 19:51 08/26/18 19:51 08/26/18 19:51 08/26/18 19:51 Oxygen Flow Rate (L/min) 96 Oxygen Delivery Method Room Air Weight: 115.212 kg Body Mass Index (BMI) 47.2 Intake and Output for Last 24 Hours 08/24/18 08/25/18 08/27/18 23:59 23:59 00:59 Intake Total 480 / 480 740 / 740 1430 / 1430 Output Total 1650 / 1650 500 / 500 Balance 480 / 480 -910 / -910 930 / 930 Laboratory Results 08/25/18 21:03: POC Glucose 276 H 08/26/18 03:17: POC Glucose 327 H 08/26/18 06:16: POC Glucose 156 H 08/26/18 11:12: POC Glucose 172 H 08/26/18 16:20: POC Glucose 226 H Current Medications Acetaminophen (Tylenol) 650 mg PO Q8H PRN PRN PRN Reason: PAIN Last Admin: 08/20/18 11:39 Dose: 650 mg Atorvastatin Calcium (Lipitor) 20 mg PO QHS SHAHANA Last Admin: 08/25/18 21:08 Dose: 20 mg Bisacodyl (Dulcolax) 10 mg RECTAL .PRN X 1 PRN PRN Reason: Constipation Bisacodyl (Dulcolax) 10 mg RECTAL .PRN X 1 PRN PRN Reason: Constipation Buspirone HCl (Buspar) 5 mg PO TID COUNT INCLUDES THE [facility] Last Admin: 08/26/18 13:28 Dose: 5 mg Calamine/Phenol (Calmoseptine Ointment) 1 applic TOPICAL BID COUNT INCLUDES THE [facility]; Protocol Last Admin: 08/26/18 08:19 Dose: 1 applicatio Calcium Carbonate (Os-Chinedu 500) 500 mg PO BID COUNT INCLUDES THE [facility] Last Admin: 08/26/18 07:35 Dose: 500 mg Carvedilol (Coreg) 25 mg PO BID COUNT INCLUDES THE [facility] Last Admin: 08/26/18 07:34 Dose: 25 mg Enoxaparin Sodium (Lovenox) 30 mg SC DAILY@0600 COUNT INCLUDES THE [facility] Last Admin: 08/26/18 05:25 Dose: 30 mg Epoetin Ismael (Procrit) 10,000 units SC X1 ONE Stop: 08/27/18 08:01 Ferrous Sulfate (Ferrous Sulfate) 325 mg PO TIDCM COUNT INCLUDES THE [facility] Last Admin: 08/26/18 17:28 Dose: 325 mg Gabapentin (Neurontin) 300 mg PO QHS COUNT INCLUDES THE [facility] Last Admin: 08/25/18 21:08 Dose: 300 mg Hydralazine HCl (Apresoline) 50 mg PO TID COUNT INCLUDES THE [facility] Last Admin: 08/26/18 13:28 Dose: 50 mg Hydrocortisone Acetate (Anusol Hc) 25 mg RECTAL BID PRN PRN PRN Reason: Hemorrhoids Last Admin: 08/19/18 17:58 Dose: 25 mg Insulin Glargine (Lantus (Bkc)) 42 units SC BREAKFAST COUNT INCLUDES THE [facility] Last Admin: 08/26/18 07:36 Dose: 42 units Insulin Human Lispro (Humalog Kwikpen (Bkc)) 0 unit SC ACHS & 0200 COUNT INCLUDES THE [facility]; Protocol Last Admin: 08/26/18 17:28 Dose: 4 u Insulin Human Lispro (Humalog Kwikpen (Bkc)) 12 unit SC TIDAC COUNT INCLUDES THE [facility] Last Admin: 08/26/18 17:28 Dose: 12 u Losartan Potassium (Cozaar) 50 mg PO DAILY COUNT INCLUDES THE [facility] Last Admin: 08/26/18 07:35 Dose: 50 mg Magnesium Hydroxide (Milk Of Magnesia) 30 ml PO .PRN X 1 PRN PRN Reason: Constipation Montelukast Sodium (Singulair) 10 mg PO QHS COUNT INCLUDES THE [facility] Last Admin: 08/25/18 21:09 Dose: 10 mg Multivitamins/Minerals (Multivitamin With Minerals) 1 tablet PO DAILY@0800 COUNT INCLUDES THE [facility] Last Admin: 08/26/18 07:34 Dose: 1 tablet Ondansetron HCl (Zofran Odt) 4 mg PO Q8H PRN PRN PRN Reason: NAUSEA Pantoprazole Sodium (Protonix) 20 mg PO DAILY COUNT INCLUDES THE [facility] Last Admin: 08/26/18 07:35 Dose: 20 mg Polyethylene Glycol (Miralax) 17 gm PO DAILY COUNT INCLUDES THE [facility] Last Admin: 08/26/18 07:35 Dose: Not Given Prednisone () 30 mg PO DAILY@0800 COUNT INCLUDES THE [facility] Last Admin: 08/26/18 07:34 Dose: 30 mg Senna/Docusate Sodium (Senokot-S, Leti-Colace) 2 tablet PO BID PRN PRN Reason: CONSTIPATION Sertraline HCl (Zoloft) 100 mg PO DAILY COUNT INCLUDES THE [facility] Last Admin: 08/26/18 07:36 Dose: 100 mg Sodium Chloride () 5 - 15 ml IV UD PRN PRN Reason: SALINE FLUSH Last Admin: 08/24/18 09:13 Dose: 10 ml Medical Necessity - Tobacco Use Smoking Status: Never smoker Tobacco Use: Non-smoker Assessment/Plan All Active Problems Debility (Acute) 58-year female admitted on rehab with gradual bilateral lower extremity weakness, recently diagnosed with CIDP. 1. Debility secondary to chronic inflammatory demyelinating polyneuropathy, s/p of plasmapheresis at [facility], on prednisone 30mg, therapy ongoing 2. Anemia, secondary to possible GI bleed, History of hemorrhoids s/p 1 unit pRBC, on pantoprazole, oral iron needs to follow-up in the outpatient. 3. HF of unknown etiology, Lasix is discontinued 4. CKD 4 secondary to diabetic nephropathy, CR is slightly improved, nephrology follwoing 5. Isovolumetric hypotonic hyponatremia, resolved 6. Type 2 diabetes mellitus, BS are controlled, continue on chronic insulin, continue with accucheks and ISS 7. Hypertension, controlled, continue on amlodipine 10 mg daily, carvedilol 25 mg daily, hydralazine 50 mg 3 times daily and losartan 50 mg daily. 8. DVT PPx- Lovenox SC Code Visit Inpatient E&M: 66020 Subs Hosp L2
[2018-08-26 20:57] VITALS: BP 145/82; PULSE 80
[2018-08-26] MEDS: Montelukast 10 MG Tablet PO (20:57)
[2018-08-26] MEDS: Gabapentin 300 MG Capsule PO (20:57)
[2018-08-26] MEDS: Atorvastatin Calcium 20 MG Tablet PO (21:00)
[2018-08-26 21:01] LABS: Bedside Glucose 185 mg/dL (70-110)
[2018-08-27 02:36] LABS: Bedside Glucose 124 mg/dL (70-110)
[2018-08-27 06:05] VITALS: BP 160/82; PULSE 62
[2018-08-27] MEDS: busPIRone 5 MG Tablet PO ×3 (06:05→20:46)
[2018-08-27] MEDS: hydrALAZINE 50 MG Tablet PO ×3 (06:05→20:47)
[2018-08-27] MEDS: Enoxaparin 30 MG/0.3 ML Syringe SC (06:06)
[2018-08-27 07:26] LABS: Bedside Glucose 101 mg/dL (70-110)
[2018-08-27 07:57] VITALS: BP 160/82; PULSE 62; RESP 18; TEMP 36.4; O2SAT 98
[2018-08-27] MEDS: Insulin Lispro 100 UNIT/ML INSULN.PEN 12 UNIT SC ×3 (07:57→16:54)
[2018-08-27] MEDS: Pantoprazole Sodium 20 MG Tablet PO (07:58)
[2018-08-27] MEDS: Ferrous Sulfate 325 MG Tablet PO ×3 (07:58→16:52)
[2018-08-27] MEDS: predniSONE 10 MG Tablet 30 MG PO (07:58)
[2018-08-27] MEDS: Multivitamins,Ther W-Minerals Tablet 1 TABLET PO (07:58)
[2018-08-27] MEDS: Calcium (Elemental) 500 MG Tablet PO ×2 (07:58→20:05)
[2018-08-27] MEDS: Sertraline 100 MG Tablet PO (07:59)
[2018-08-27] MEDS: Carvedilol 25 MG Tablet PO ×2 (08:00→20:04)
[2018-08-27] MEDS: Losartan Potassium 50 MG Tablet PO (08:00)
[2018-08-27] MEDS: Menthol/Lanolin/Calamine/Znox 113 GM Tube 1 APPLIC TOPICAL ×2 (08:05→20:05)
[2018-08-27 09:54] LABS: Hematocrit 27.8 % (37-47); Mean Corp Hgb Conc 32.4 g/gl (32-36); Mean Corpuscular Hgb 28.2 pg (27.0-32.0); Mean Corpuscular Volume 87.1 fL (81-99); Mean Platelet Vol. 10.2 fl (6.2-12.0); Platelet Count 144 K/mm3 (150-450); RBC Distribution Width CV 15.9 % (11.6-14.6); RBC Distribution Width SD 49.5 fl (35.1-43.9); Red Blood Count 3.19 M/mm3 (4.2-5.4); White Blood Count 9.4 K/mm3 (4.4-11.0)
[2018-08-27 09:58] LABS: Scan Indicated on CBC? Y/N NO
[2018-08-27 10:06] LABS: Albumin, Serum 2.2 g/dL (3.2-5.0); BUN 94 mg/dL (7-18); BUN/Creat Ratio 48.5 RATIO (10-20); Calcium,Total 8.1 mg/dL (8.5-10.1); Chloride 110 mmol/L (98-107); Creatinine, Serum 1.94 mg/dL (0.55-1.02); EST Glomerular Filtration Rate 28 mL/min (>60); Est Glom Filt Rate - Afr Amer 34 mL/min (>60); Estimated Creatinine Clearance 24.43 ml/min; Glucose 171 mg/dL (74-106); Phosphorus 2.7 mg/dL (2.5-4.9); Potassium 3.9 mmol/L (3.5-5.1); Sodium Level 142 mmol/L (136-145)
[2018-08-27 11:26] LABS: Bedside Glucose 115 mg/dL (70-110)
--- NOTE | 2018-08-27 12:18 | NURSING ---
Dr. Lew reviewed labs and has approved of an increase of Zoloft per Dr. Boyer request of mg strength.
[2018-08-27 12:55] VITALS: PULSE 77
--- NOTE | 2018-08-27 13:38 | PN_ITS ---
Subjective: Patient is a 58-year-old lady with recent diagnosis of chronic inflammatory demyelinating polyneuropathy for which she underwent plasmapheresis at [facility] and subsequently transferred to the inpatient rehab unit for recuperation Objective: GENERAL: cooperative HEENT: Atraumatic; moist oral mucosa EYES; Anicteric, Normal Conjunctiva NECK; supple, normal thyroid, no distended JVD. RESPIRATORY: Diminished to auscultation bilaterally, CARDIOVASCULAR: Regular S1 S2, no audible murmurs GI: soft, non-tender, normoactive bowel sounds, : No Renal angle tenderness; EXTREMITIES: No edema, no clubbing, no cyanosis. NEURO: Awake; no lateralizing signs. SKIN: No Rash PSYCH; Normal affect Vitals/I&O's: Vital Signs Temp Pulse Resp BP Pulse Ox 97.6 F L 77 18 160/82 H 98 08/27/18 07:57 08/27/18 12:55 08/27/18 07:57 08/27/18 07:57 08/27/18 07:57 Oxygen Flow Rate (L/min) 96 Oxygen Delivery Method Room Air Weight: 114.7 kg Body Mass Index (BMI) 47.2 Intake and Output for Last 24 Hours 08/25/18 08/26/18 08/27/18 22:59 23:59 23:59 Intake Total 340 / 340 Output Total Balance 340 / 340 Laboratory Results 08/26/18 16:20: POC Glucose 226 H 08/26/18 20:55: POC Glucose 185 H 08/27/18 02:29: POC Glucose 124 H 08/27/18 07:09: POC Glucose 101 08/27/18 09:40: WBC 9.4, RBC 3.19 L, Hgb 9.0 L, Hct 27.8 L, MCV 87.1, MCH 28.2, MCHC 32.4, RDW 15.9 H, RDW Differential 49.5 H, Plt Count 144 L, MPV 10.2 08/27/18 09:40: Sodium 142, Potassium 3.9, Chloride 110 H, Carbon Dioxide 23.0, BUN 94 H, Creatinine 1.94 H, Estim Creat Clear Calc 24.43, Est GFR (MDRD) Af Amer 34 L, Est GFR (MDRD) Non-Af 28 L, BUN/Creatinine Ratio 48.5 H, Glucose 171 H, Calcium 8.1 L, Phosphorus 2.7, Albumin 2.2 L 08/27/18 11:15: POC Glucose 115 H Current Medications Acetaminophen (Tylenol) 650 mg PO Q8H PRN PRN PRN Reason: PAIN Last Admin: 08/20/18 11:39 Dose: 650 mg Atorvastatin Calcium (Lipitor) 20 mg PO QHS [facility] Last Admin: 08/26/18 21:00 Dose: 20 mg Bisacodyl (Dulcolax) 10 mg RECTAL .PRN X 1 PRN PRN Reason: Constipation Bisacodyl (Dulcolax) 10 mg RECTAL .PRN X 1 PRN PRN Reason: Constipation Buspirone HCl (Buspar) 5 mg PO TID [facility] Last Admin: 08/27/18 12:55 Dose: 5 mg Calamine/Phenol (Calmoseptine Ointment) 1 applic TOPICAL BID [facility]; Protocol Last Admin: 08/27/18 08:05 Dose: 1 applicatio Calcium Carbonate (Os-Chinedu 500) 500 mg PO BID [facility] Last Admin: 08/27/18 07:58 Dose: 500 mg Carvedilol (Coreg) 25 mg PO BID [facility] Last Admin: 08/27/18 08:00 Dose: 25 mg Enoxaparin Sodium (Lovenox) 30 mg SC DAILY@0600 [facility] Last Admin: 08/27/18 06:06 Dose: 30 mg Ferrous Sulfate (Ferrous Sulfate) 325 mg PO TIDCM [facility] Last Admin: 08/27/18 11:29 Dose: 325 mg Gabapentin (Neurontin) 300 mg PO QHS [facility] Last Admin: 08/26/18 20:57 Dose: 300 mg Hydralazine HCl (Apresoline) 50 mg PO TID [facility] Last Admin: 08/27/18 12:55 Dose: 50 mg Hydrocortisone Acetate (Anusol Hc) 25 mg RECTAL BID PRN PRN PRN Reason: Hemorrhoids Last Admin: 08/19/18 17:58 Dose: 25 mg Insulin Glargine (Lantus (Bkc)) 42 units SC BREAKFAST [facility] Last Admin: 08/27/18 08:01 Dose: 42 units Insulin Human Lispro (Humalog Kwikpen (Bkc)) 0 unit SC ACHS & 0200 [facility]; Protocol Last Admin: 08/27/18 11:28 Dose: Not Given Insulin Human Lispro (Humalog Kwikpen (Bkc)) 12 unit SC TIDAC [facility] Last Admin: 08/27/18 11:29 Dose: 12 u Losartan Potassium (Cozaar) 50 mg PO DAILY [facility] Last Admin: 08/27/18 08:00 Dose: 50 mg Magnesium Hydroxide (Milk Of Magnesia) 30 ml PO .PRN X 1 PRN PRN Reason: Constipation Montelukast Sodium (Singulair) 10 mg PO QHS [facility] Last Admin: 08/26/18 20:57 Dose: 10 mg Multivitamins/Minerals (Multivitamin With Minerals) 1 tablet PO DAILY@0800 [facility] Last Admin: 08/27/18 07:58 Dose: 1 tablet Ondansetron HCl (Zofran Odt) 4 mg PO Q8H PRN PRN PRN Reason: NAUSEA Pantoprazole Sodium (Protonix) 20 mg PO DAILY [facility] Last Admin: 08/27/18 07:58 Dose: 20 mg Polyethylene Glycol (Miralax) 17 gm PO DAILY [facility] Last Admin: 08/27/18 09:26 Dose: Not Given Prednisone () 30 mg PO DAILY@0800 [facility] Last Admin: 08/27/18 07:58 Dose: 30 mg Senna/Docusate Sodium (Senokot-S, Leti-Colace) 2 tablet PO BID PRN PRN Reason: CONSTIPATION Sertraline HCl (Zoloft) 100 mg PO DAILY [facility] Last Admin: 08/27/18 07:59 Dose: 100 mg Sodium Chloride () 5 - 15 ml IV UD PRN PRN Reason: SALINE FLUSH Last Admin: 08/24/18 09:13 Dose: 10 ml Medical Necessity - Tobacco Use Smoking Status: Never smoker Tobacco Use: Non-smoker Assessment/Plan All Active Problems Debility (Acute) Patient is a 58-year-old lady with recent diagnosis of chronic inflammatory demyelinating polyneuropathy for which she underwent plasmapheresis at [facility] and subsequently transferred to the inpatient rehab unit for recuperation 1. Debility secondary to CIDP. Status post plasmapheresis patient remains on prednisone 2. Severe depression patient on sertraline dose of which has been increased from 100-125 mg daily 3. Diabetes mellitus type 2 did continue home regimen in addition to Accu-Cheks before meals and at bedtime with sliding scale coverage 4. Chronic diastolic heart failure; stable patient was previously on Lasix discontinued in view of worsening azotemia 5. Chronic kidney disease stage III secondary to diabetic nephropathy patient was on Lasix discontinued in view of worsening azotemia 6. Hypertension-blood pressure controlled, home medications continued with dose adjustment as needed 7. DVT PPx- Lovenox dose adjusted for kidney function Active Medications Acetaminophen (Tylenol) 650 mg PO Q8H PRN PRN PRN Reason: PAIN Last Admin: 08/20/18 11:39 Dose: 650 mg Atorvastatin Calcium (Lipitor) 20 mg PO QHS [facility] Last Admin: 08/26/18 21:00 Dose: 20 mg Bisacodyl (Dulcolax) 10 mg RECTAL .PRN X 1 PRN PRN Reason: Constipation Bisacodyl (Dulcolax) 10 mg RECTAL .PRN X 1 PRN PRN Reason: Constipation Buspirone HCl (Buspar) 5 mg PO TID [facility] Last Admin: 08/27/18 12:55 Dose: 5 mg Calamine/Phenol (Calmoseptine Ointment) 1 applic TOPICAL BID [facility]; Protocol Last Admin: 08/27/18 08:05 Dose: 1 applicatio Calcium Carbonate (Os-Hcinedu 500) 500 mg PO BID [facility] Last Admin: 08/27/18 07:58 Dose: 500 mg Carvedilol (Coreg) 25 mg PO BID [facility] Last Admin: 08/27/18 08:00 Dose: 25 mg Enoxaparin Sodium (Lovenox) 30 mg SC DAILY@0600 [facility] Last Admin: 08/27/18 06:06 Dose: 30 mg Ferrous Sulfate (Ferrous Sulfate) 325 mg PO TIDCM [facility] Last Admin: 08/27/18 11:29 Dose: 325 mg Gabapentin (Neurontin) 300 mg PO QHS [facility] Last Admin: 08/26/18 20:57 Dose: 300 mg Hydralazine HCl (Apresoline) 50 mg PO TID [facility] Last Admin: 08/27/18 12:55 Dose: 50 mg Hydrocortisone Acetate (Anusol Hc) 25 mg RECTAL BID PRN PRN PRN Reason: Hemorrhoids Last Admin: 08/19/18 17:58 Dose: 25 mg Insulin Glargine (Lantus (Bkc)) 42 units SC BREAKFAST [facility] Last Admin: 08/27/18 08:01 Dose: 42 units Insulin Human Lispro (Humalog Kwikpen (Bk)) 0 unit SC ACHS & 0200 [facility]; Protocol Last Admin: 08/27/18 11:28 Dose: Not Given Insulin Human Lispro (Humalog Kwikpen (Bk)) 12 unit SC TIDAC [facility] Last Admin: 08/27/18 11:29 Dose: 12 u Losartan Potassium (Cozaar) 50 mg PO DAILY [facility] Last Admin: 08/27/18 08:00 Dose: 50 mg Magnesium Hydroxide (Milk Of Magnesia) 30 ml PO .PRN X 1 PRN PRN Reason: Constipation Montelukast Sodium (Singulair) 10 mg PO QHS [facility] Last Admin: 08/26/18 20:57 Dose: 10 mg Multivitamins/Minerals (Multivitamin With Minerals) 1 tablet PO DAILY@0800 [facility] Last Admin: 08/27/18 07:58 Dose: 1 tablet Ondansetron HCl (Zofran Odt) 4 mg PO Q8H PRN PRN PRN Reason: NAUSEA Pantoprazole Sodium (Protonix) 20 mg PO DAILY [facility] Last Admin: 08/27/18 07:58 Dose: 20 mg Polyethylene Glycol (Miralax) 17 gm PO DAILY [facility] Last Admin: 08/27/18 09:26 Dose: Not Given Prednisone () 30 mg PO DAILY@0800 [facility] Last Admin: 08/27/18 07:58 Dose: 30 mg Senna/Docusate Sodium (Senokot-S, Leti-Colace) 2 tablet PO BID PRN PRN Reason: CONSTIPATION Sertraline HCl (Zoloft) 100 mg PO DAILY [facility] Last Admin: 08/27/18 07:59 Dose: 100 mg Sertraline HCl (Zoloft) 25 mg PO DAILY [facility] Sodium Chloride () 5 - 15 ml IV UD PRN PRN Reason: SALINE FLUSH Last Admin: 08/24/18 09:13 Dose: 10 ml Code Visit Inpatient E&M: 20147 Subs Hosp L2
--- NOTE | 2018-08-27 13:38 | PCM.PN.NEU ---
Subjective: No issues overnight. Care discussed with the nursing staff. Patient has been emotional over the weekend. Zoloft dose increased to 125 mg once daily. - Physical Exam General: Alert HEENT: Normocephalic Neck: Supple Lungs: Normal air movement Cardiovascular: Normal S1, Normal S2 Abdomen: Bowel Sounds Present Extremities: No cyanosis Neurological: - - consious, alert, AoAx3, CN 2-12 grossly intact, power 5/5 both UE, 3/5 right LE, 2/5 left LE, Reflexes + B/L B/S/T and areflexia B/L K/A, gait deferred, no sensory loss, no cerebellar signs UE. Vital Signs Temp Pulse Resp BP Pulse Ox 97.6 F L 77 18 160/82 H 98 08/27/18 07:57 08/27/18 12:55 08/27/18 07:57 08/27/18 07:57 08/27/18 07:57 Oxygen Flow Rate (L/min) 96 Oxygen Delivery Method Room Air Weight: 114.7 kg Body Mass Index (BMI) 47.2 Intake and Output for Last 24 Hours 08/25/18 08/26/18 08/27/18 22:59 23:59 23:59 Intake Total 340 / 340 Output Total Balance 340 / 340 Laboratory Tests Past 24 Hrs 08/27/18 08/27/18 09:40 09:40 WBC 9.4 RBC 3.19 L Hgb 9.0 L Hct 27.8 L MCV 87.1 MCH 28.2 MCHC 32.4 RDW 15.9 H RDW Differential 49.5 H Plt Count 144 L MPV 10.2 Sodium 142 Potassium 3.9 Chloride 110 H Carbon Dioxide 23.0 BUN 94 H Creatinine 1.94 H Estim Creat Clear Calc 24.43 Est GFR (MDRD) Af Amer 34 L Est GFR (MDRD) Non-Af 28 L BUN/Creatinine Ratio 48.5 H Glucose 171 H Calcium 8.1 L Phosphorus 2.7 Albumin 2.2 L POC Glucose 08/27/18 08/27/18 08/27/18 11:15 07:09 02:29 POC Glucose 115 H 101 124 H 08/26/18 08/26/18 20:55 16:20 POC Glucose 185 H 226 H Medical Necessity - Tobacco Use Smoking Status: Never smoker Tobacco Use: Non-smoker Assessment/Plan All Active Problems Debility (Acute) 58 yr F with PMH HTN, HLD, DM, CKD, Obesity re-admitted to [facility] on 07/28/18 s/p debility post B/L LE weakness and falls, for > 3 hrs therapy daily, with a goal of returning back home at or near her prior level of functional independence. Per patient she started having difficulty walking, with frequent falls, with bilateral LE weakness, gradually progressive over the past few months around last December 2017, with right foot drop, admitted initially to [facility] hospital on 06/14/2018, then to [facility] on 06/20/2018. NCS reported to show demyelinating features with conduction block consistent with CIDP, started on IV Solumedrol 1 g daily for 5 days following which patient felt she was doing better, continued on Prednisone 60 mg daily, IVIG avoided due to CKD, Rheumatological work up negative. LP, Lyme's ab testing, West Nile AB testing was negative. LP done showed WBCs-11, RBCs-0, Protein-33. MRI brain reported nothing acute, MRI C spine reported to show Broad-based midline and para midline disc herniation at C5-6 more prominent on the left side impinging on the left C6 nerve root and MRI L spine reported to show Lumbar spondylosis with disc herniations and foraminal narrowing at L4-5 and L5-S1. Patient was later discharged to [facility] on 07/16/18 for plasmapheresis for worsening LE weakness. She is followed by nephrology for CKD and is planned to see vascular surgery as outpatient for fistula placement. Currently maintained on daily prednisone. Plan -Physical therapy for gait and balance -Occupational Therapy for ADLs -As needed analgesics -Bowel protocol -DVT prophylaxis: SCDs, Lovenox -GI prophylaxis- on Pantoprazole. -Hoarseness of voice- new complaint, voice rest, humidifier therapy, ENT consult as outpatient. -CIDP - On Prednisone 30 mg PO once daily. Slow taper of steroid as outpatient. On GI prophylaxis and on Calcium -Hypertension - well controlled and stable on current medication of Coreg, losartan and Hydralazine -HLD - continue home dose of Lipitor -DM type II - blood sugars ACHS, Moderate sliding scale, On Insulin -CKD-Nephrology consult, avoid nephrotoxic drugs, on d/c follow up appointment with Dr. Cebul for Fistula placement. Dr. Lew following, decrease in HB and slight raise in creatinine to 2.8 (08/16/18), medications adjusted, lasix, amlodipine discontinued and Procrit given by Nephrology. S/P Blood transfusion, Hb8.6->9 (08/27/18), Cr-2.15 (08/24/18)->1.94 (08/27/18). -Obesity - BMI is 44.7, encourage weight loss, consult nutrition, documentation of snoring with obesity, outpatient sleep study on discharge. -Depression- on Zoloft and BuSpar -Fall precautions -Further medical management per hospitalist recommendations -Follow up with PCP, Nephrology, Vascular surgery, spine surgery, ENT and Neurology as outpatient following discharge
--- NOTE | 2018-08-27 13:41 | PN.NEURO_ITS ---
Subjective: No issues overnight. Care discussed with the nursing staff. Patient has been emotional over the weekend. Zoloft dose increased to 125 mg once daily. - Physical Exam General: Alert HEENT: Normocephalic Neck: Supple Lungs: Normal air movement Cardiovascular: Normal S1, Normal S2 Abdomen: Bowel Sounds Present Extremities: No cyanosis Neurological: - - consious, alert, AoAx3, CN 2-12 grossly intact, power 5/5 both UE, 3/5 right LE, 2/5 left LE, Reflexes + B/L B/S/T and areflexia B/L K/A, gait deferred, no sensory loss, no cerebellar signs UE. Vital Signs Temp Pulse Resp BP Pulse Ox 97.6 F L 77 18 160/82 H 98 08/27/18 07:57 08/27/18 12:55 08/27/18 07:57 08/27/18 07:57 08/27/18 07:57 Oxygen Flow Rate (L/min) 96 Oxygen Delivery Method Room Air Weight: 114.7 kg Body Mass Index (BMI) 47.2 Intake and Output for Last 24 Hours 08/25/18 08/26/18 08/27/18 22:59 23:59 23:59 Intake Total 340 / 340 Output Total Balance 340 / 340 Laboratory Tests Past 24 Hrs 08/27/18 08/27/18 09:40 09:40 WBC 9.4 RBC 3.19 L Hgb 9.0 L Hct 27.8 L MCV 87.1 MCH 28.2 MCHC 32.4 RDW 15.9 H RDW Differential 49.5 H Plt Count 144 L MPV 10.2 Sodium 142 Potassium 3.9 Chloride 110 H Carbon Dioxide 23.0 BUN 94 H Creatinine 1.94 H Estim Creat Clear Calc 24.43 Est GFR (MDRD) Af Amer 34 L Est GFR (MDRD) Non-Af 28 L BUN/Creatinine Ratio 48.5 H Glucose 171 H Calcium 8.1 L Phosphorus 2.7 Albumin 2.2 L POC Glucose 08/27/18 08/27/18 08/27/18 11:15 07:09 02:29 POC Glucose 115 H 101 124 H 08/26/18 08/26/18 20:55 16:20 POC Glucose 185 H 226 H Medical Necessity - Tobacco Use Smoking Status: Never smoker Tobacco Use: Non-smoker Assessment/Plan All Active Problems Debility (Acute) 58 yr F with PMH HTN, HLD, DM, CKD, Obesity re-admitted to [facility] on 07/28/18 s/p debility post B/L LE weakness and falls, for > 3 hrs therapy daily, with a goal of returning back home at or near her prior level of functional independence. Per patient she started having difficulty walking, with frequent falls, with bilateral LE weakness, gradually progressive over the past few months around last December 2017, with right foot drop, admitted initially to [facility] hospital on 06/14/2018, then to [facility] on 06/20/2018. NCS reported to show demyelinating features with conduction block consistent with CIDP, started on IV Solumedrol 1 g daily for 5 days following which patient felt she was doing better, continued on Prednisone 60 mg daily, IVIG avoided due to CKD, Rheumatological work up negative. LP, Lyme's ab testing, West Nile AB testing was negative. LP done showed WBCs-11, RBCs-0, Protein-33. MRI brain reported nothing acute, MRI C spine reported to show Broad-based midline and para midline disc herniation at C5-6 more prominent on the left side impinging on the left C6 nerve root and MRI L spine reported to show Lumbar spondylosis with disc herniations and foraminal narrowing at L4-5 and L5-S1. Patient was later discharged to [facility] on 07/16/18 for plasmapheresis for worsening LE weakness. She is followed by nephrology for CKD and is planned to see vascular surgery as outpatient for fistula placement. Currently maintained on daily prednisone. Plan -Physical therapy for gait and balance -Occupational Therapy for ADLs -As needed analgesics -Bowel protocol -DVT prophylaxis: SCDs, Lovenox -GI prophylaxis- on Pantoprazole. -Hoarseness of voice- new complaint, voice rest, humidifier therapy, ENT consult as outpatient. -CIDP - On Prednisone 30 mg PO once daily. Slow taper of steroid as outpatient. On GI prophylaxis and on Calcium -Hypertension - well controlled and stable on current medication of Coreg, losartan and Hydralazine -HLD - continue home dose of Lipitor -DM type II - blood sugars ACHS, Moderate sliding scale, On Insulin -CKD-Nephrology consult, avoid nephrotoxic drugs, on d/c follow up appointment with Dr. Cebul for Fistula placement. Dr. Lew following, decrease in HB and slight raise in creatinine to 2.8 (08/16/18), medications adjusted, lasix, amlodipine discontinued and Procrit given by Nephrology. S/P Blood transfusion, Hb8.6->9 (08/27/18), Cr-2.15 (08/24/18)->1.94 (08/27/18). -Obesity - BMI is 44.7, encourage weight loss, consult nutrition, documentation of snoring with obesity, outpatient sleep study on discharge. -Depression- on Zoloft and BuSpar -Fall precautions -Further medical management per hospitalist recommendations -Follow up with PCP, Nephrology, Vascular surgery, spine surgery, ENT and Neurology as outpatient following discharge
--- NOTE | 2018-08-27 13:53 | PCM.TXEXTCAR ---
- Diet 07/28/18 16:32 Diet: Calorie Controlled Food consistency:: Regular Liquid Consistency:: Regular/Thin Is pt able to select menu?: Yes How many daily calories?: 1800 calorie Diet: Renal - Carb-Controlled Is pt able to select menu?: Yes - Wound(s) back of left leg Wound Type: wound Dressing Change: Adaptic top of left foot Wound Type: healing blister Dressing Change: Adaptic right anterior neck Wound Type: Surgical Incision right arm Wound Type: Abrasion right hip Wound Type: blisters rt upper thigh Wound Type: blisters - Therapies Weight Bearing: Weight bearing as tolerated - Allergies/Procedures Done in Hospital Allergies/Adverse Reactions: Allergies codeine Allergy (Verified 06/14/18 17:11) Other CONFUSION latex Allergy (Verified 06/14/18 17:11) Hives Sulfa (Sulfonamide Antibiotics) Allergy (Verified 06/14/18 17:11) Rash - Type of Care/Length of Stay Estimated LOS: More Than 30 Days Type of Care Needed: Intermediate Rehab Potential: Fair Prognosis: Fair - Additional Orders/Day of Discharge Day of Discharge: 08/30/18 - Dietary and Speech Recommendations Dietitian Recommendations/Changes: Rec diet change to 1600 calorie, Renal/60 gm protein diet. - Follow Up Care Primary Care Physician: Param Razo MD [Primary Care Provider] - Please follow up with your Primary Care Physician in: Follow up with PCP in 1-2 weeks When: Follow up wtih Neurology in 2-4 weeks When: Follow up with Nephrology in 1-2 weeks When: F/U with Vascular surgery (for possible fistula placement) in 1-2 weeks When: F/U with Spine surgery (for spondylosis and disc disease) in 1-2 weeks When: Follow up with ENT (for hoarseness of voice) MICHAEL
[2018-08-27] MEDS: Glycerin/Hypromellose/PEG400 15 ml Bottle 1 DRP EACH EYE ×3 (15:07→20:49)
--- NOTE | 2018-08-27 15:26 | PCM.PN.REN ---
Subjective: pt scheduled to transfer to [facility] for continued leg weakness. Able to bend rt knee approx 20 degree. Renal fxn stable. hgb stable s/p prbc. - Physical Exam General: Alert, Oriented x3, Cooperative Extremities: Edema - BLE Musculoskeletal: - - muscle weakness, motor strength 2/5 R>L Psych/Mental Status: Depressed, Alert and oriented to time, place, person, mood and affect Vital Signs Temp Pulse Resp BP Pulse Ox 97.6 F L 77 18 160/82 H 98 08/27/18 07:57 08/27/18 12:55 08/27/18 07:57 08/27/18 07:57 08/27/18 07:57 Oxygen Flow Rate (L/min) 96 Oxygen Delivery Method Room Air Weight: 114.7 kg Body Mass Index (BMI) 47.2 Intake and Output for Last 24 Hours 08/25/18 08/26/18 08/27/18 22:59 23:59 23:59 Intake Total 640 / 640 Output Total 800 / 800 Balance -160 / -160 Laboratory Tests Past 24 Hrs 08/27/18 08/27/18 09:40 09:40 WBC 9.4 RBC 3.19 L Hgb 9.0 L Hct 27.8 L MCV 87.1 MCH 28.2 MCHC 32.4 RDW 15.9 H RDW Differential 49.5 H Plt Count 144 L MPV 10.2 Sodium 142 Potassium 3.9 Chloride 110 H Carbon Dioxide 23.0 BUN 94 H Creatinine 1.94 H Estim Creat Clear Calc 24.43 Est GFR (MDRD) Af Amer 34 L Est GFR (MDRD) Non-Af 28 L BUN/Creatinine Ratio 48.5 H Glucose 171 H Calcium 8.1 L Phosphorus 2.7 Albumin 2.2 L POC Glucose 08/27/18 08/27/18 08/27/18 11:15 07:09 02:29 POC Glucose 115 H 101 124 H 08/26/18 08/26/18 20:55 16:20 POC Glucose 185 H 226 H Medical Necessity - Tobacco Use Smoking Status: Never smoker Tobacco Use: Non-smoker Assessment/Plan All Active Problems Debility (Acute) 1. 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 Creatinine stable at 1.9. Will need vein mapping and appt with DR. Payan arranged as outpt for AV fistula 2. DM type II on insulin therapy. Tolerating low dose losartan for diabetic proteinuria 3. Hypertension increase losartan to 100mg daily 4. 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 5. Lower extremity edema likely due to high-dose steroids. Edema stable off lasix. 6. Anemia hgb 9g after prbc. Continue DUNCAN on discharge to aranesp 60mcg monthly for hgb <10g 7. monitor labs monthly with CBC, renal panel. F/U with me in 3-4 wks 8. Depression ok to increase zoloft dose from renal standpoint
[2018-08-27 17:00] LABS: Bedside Glucose 132 mg/dL (70-110)
[2018-08-27 18:34] LABS: Ferritin 339 ng/mL (8-252); Iron 50 ug/dL (50-170)
[2018-08-27 19:34] VITALS: BP 148/72; PULSE 71; RESP 16; TEMP 36.7; O2SAT 97
[2018-08-27] MEDS: Montelukast 10 MG Tablet PO (20:04)
[2018-08-27] MEDS: Gabapentin 300 MG Capsule PO (20:04)
[2018-08-27] MEDS: Atorvastatin Calcium 20 MG Tablet PO (20:05)
[2018-08-27 20:40] VITALS: PULSE 71; O2SAT 97
[2018-08-27] MEDS: Insulin Lispro 100 UNIT/ML INSULN.PEN SC (20:46)
[2018-08-27 20:47] VITALS: PULSE 71
[2018-08-27 21:30] LABS: Bedside Glucose 216 mg/dL (70-110)
[2018-08-28 02:16] LABS: Bedside Glucose 176 mg/dL (70-110)
[2018-08-28] MEDS: Insulin Lispro 100 UNIT/ML INSULN.PEN SC ×4 (02:35→21:09)
[2018-08-28] MEDS: Enoxaparin 30 MG/0.3 ML Syringe SC (05:45)
[2018-08-28] MEDS: busPIRone 5 MG Tablet PO ×3 (05:45→21:00)
[2018-08-28 05:46] VITALS: BP 155/88; PULSE 69
[2018-08-28] MEDS: hydrALAZINE 50 MG Tablet PO ×3 (05:46→21:01)
[2018-08-28 06:45] LABS: Bedside Glucose 143 mg/dL (70-110)
[2018-08-28 07:40] VITALS: BP 155/88; PULSE 69; RESP 16; TEMP 36.6; O2SAT 97
[2018-08-28] MEDS: Calcium (Elemental) 500 MG Tablet PO ×2 (07:54→21:00)
[2018-08-28] MEDS: Sertraline 50 MG Tablet 25 MG PO (07:54)
[2018-08-28] MEDS: Losartan Potassium 100 MG Tablet PO (07:54)
[2018-08-28] MEDS: Sertraline 100 MG Tablet PO (07:54)
[2018-08-28] MEDS: Carvedilol 25 MG Tablet PO ×2 (07:54→21:02)
[2018-08-28] MEDS: Pantoprazole Sodium 20 MG Tablet PO (07:54)
[2018-08-28] MEDS: predniSONE 10 MG Tablet 30 MG PO (07:54)
[2018-08-28] MEDS: Ferrous Sulfate 325 MG Tablet PO ×3 (07:55→16:59)
[2018-08-28] MEDS: Multivitamins,Ther W-Minerals Tablet 1 TABLET PO (07:55)
[2018-08-28] MEDS: Insulin Lispro 100 UNIT/ML INSULN.PEN 12 UNIT SC ×3 (07:56→16:59)
[2018-08-28] MEDS: Glycerin/Hypromellose/PEG400 15 ml Bottle 1 DRP EACH EYE ×3 (07:59→21:00)
[2018-08-28] MEDS: Menthol/Lanolin/Calamine/Znox 113 GM Tube 1 APPLIC TOPICAL ×2 (08:03→21:09)
--- NOTE | 2018-08-28 10:50 | CASEMGMT ---
Addendum entered by Shira Frank 08/28/18 16:05: Reviewed and approved social work student documentation. Raj Frank REPORTING MANAGER, LITHOGRAPHIC RETOUCHER APPRENTICE Original Note: social work Social work student called [facility] and spoke with a provider. Set up transportation by wheelchair van for , August 30 at noon. Spoke with patient about this time and patient is agreeable. Told Delmi, nurse, about time of discharge. Eros Garcia social work student
[2018-08-28 11:56] LABS: Bedside Glucose 189 mg/dL (70-110)
[2018-08-28 13:07] LABS: Pathologist Review Reviewed
[2018-08-28 13:41] VITALS: BP 150/78; PULSE 70
--- NOTE | 2018-08-28 15:19 | PCM.PN.NEU ---
Subjective: No issues overnight. Care discussed with the nursing staff. Nephrology consult appreciated. Renal function stable and hemoglobin is stable. - Physical Exam General: Alert HEENT: Normocephalic Neck: Supple Lungs: Normal air movement Cardiovascular: Normal S1, Normal S2 Abdomen: Bowel Sounds Present Extremities: No cyanosis Neurological: - - consious, alert, AoAx3, CN 2-12 grossly intact, power 5/5 both UE, 3/5 right LE, 2/5 left LE, Reflexes + B/L B/S/T and areflexia B/L K/A, gait deferred, no sensory loss, no cerebellar signs UE. Psych/Mental Status: Normal Affect Vital Signs Temp Pulse Resp BP Pulse Ox 97.8 F 70 16 150/78 H 97 08/28/18 07:40 08/28/18 13:41 08/28/18 07:40 08/28/18 13:41 08/28/18 07:40 Oxygen Flow Rate (L/min) 96 Oxygen Delivery Method Room Air Weight: 114.7 kg Body Mass Index (BMI) 47.2 Intake and Output for Last 24 Hours 08/26/18 08/27/18 08/28/18 23:59 23:59 23:59 Intake Total 1180 / 1180 440 / 440 Output Total 1400 / 1400 1050 / 1050 Balance -220 / -220 -610 / -610 Laboratory Tests Past 24 Hrs 08/24/18 08/27/18 09:20 09:40 Diff Path Review Reviewed Iron 50 Ferritin 339 H POC Glucose 08/28/18 08/28/18 08/28/18 11:50 06:28 02:10 POC Glucose 189 H 143 H 176 H 08/27/18 08/27/18 20:46 16:54 POC Glucose 216 H 132 H Medical Necessity - Tobacco Use Smoking Status: Never smoker Tobacco Use: Non-smoker Assessment/Plan All Active Problems Debility (Acute) 58 yr F with PMH HTN, HLD, DM, CKD, Obesity re-admitted to [facility] on 07/28/18 s/p debility post B/L LE weakness and falls, for > 3 hrs therapy daily, with a goal of returning back home at or near her prior level of functional independence. Per patient she started having difficulty walking, with frequent falls, with bilateral LE weakness, gradually progressive over the past few months around last December 2017, with right foot drop, admitted initially to [facility] hospital on 06/14/2018, then to [facility] on 06/20/2018. NCS reported to show demyelinating features with conduction block consistent with CIDP, started on IV Solumedrol 1 g daily for 5 days following which patient felt she was doing better, continued on Prednisone 60 mg daily, IVIG avoided due to CKD, Rheumatological work up negative. LP, Lyme's ab testing, West Nile AB testing was negative. LP done showed WBCs-11, RBCs-0, Protein-33. MRI brain reported nothing acute, MRI C spine reported to show Broad-based midline and para midline disc herniation at C5-6 more prominent on the left side impinging on the left C6 nerve root and MRI L spine reported to show Lumbar spondylosis with disc herniations and foraminal narrowing at L4-5 and L5-S1. Patient was later discharged to [facility] on 07/16/18 for plasmapheresis for worsening LE weakness. She is followed by nephrology for CKD and is planned to see vascular surgery as outpatient for fistula placement. Currently maintained on daily prednisone. Plan -Physical therapy for gait and balance -Occupational Therapy for ADLs -As needed analgesics -Bowel protocol -DVT prophylaxis: SCDs, Lovenox -GI prophylaxis- on Pantoprazole. -Hoarseness of voice- new complaint, voice rest, humidifier therapy, ENT consult as outpatient. -CIDP - On Prednisone 30 mg PO once daily. Slow taper of steroid as outpatient. On GI prophylaxis and on Calcium -Hypertension - well controlled and stable on current medication of Coreg, losartan and Hydralazine -HLD - continue home dose of Lipitor -DM type II - blood sugars ACHS, Moderate sliding scale, On Insulin -CKD-Nephrology consult, avoid nephrotoxic drugs, on d/c follow up appointment with Dr. Payan for Fistula placement. Dr. Lew following, decrease in HB and slight raise in creatinine to 2.8 (08/16/18), medications adjusted, lasix, amlodipine discontinued and Procrit given by Nephrology. S/P Blood transfusion, Hb8.6->9 (08/27/18), Cr-2.15 (08/24/18)->1.94 (08/27/18). -Obesity - BMI is 44.7, encourage weight loss, consult nutrition, documentation of snoring with obesity, outpatient sleep study on discharge. -Depression- on Zoloft and BuSpar -Fall precautions -Further medical management per hospitalist recommendations -Follow up with PCP, Nephrology, Vascular surgery, spine surgery, ENT and Neurology as outpatient following discharge
--- NOTE | 2018-08-28 15:24 | PN.NEURO_ITS ---
Subjective: No issues overnight. Care discussed with the nursing staff. Nephrology consult appreciated. Renal function stable and hemoglobin is stable. - Physical Exam General: Alert HEENT: Normocephalic Neck: Supple Lungs: Normal air movement Cardiovascular: Normal S1, Normal S2 Abdomen: Bowel Sounds Present Extremities: No cyanosis Neurological: - - consious, alert, AoAx3, CN 2-12 grossly intact, power 5/5 both UE, 3/5 right LE, 2/5 left LE, Reflexes + B/L B/S/T and areflexia B/L K/A, gait deferred, no sensory loss, no cerebellar signs UE. Psych/Mental Status: Normal Affect Vital Signs Temp Pulse Resp BP Pulse Ox 97.8 F 70 16 150/78 H 97 08/28/18 07:40 08/28/18 13:41 08/28/18 07:40 08/28/18 13:41 08/28/18 07:40 Oxygen Flow Rate (L/min) 96 Oxygen Delivery Method Room Air Weight: 114.7 kg Body Mass Index (BMI) 47.2 Intake and Output for Last 24 Hours 08/26/18 08/27/18 08/28/18 23:59 23:59 23:59 Intake Total 1180 / 1180 440 / 440 Output Total 1400 / 1400 1050 / 1050 Balance -220 / -220 -610 / -610 Laboratory Tests Past 24 Hrs 08/24/18 08/27/18 09:20 09:40 Diff Path Review Reviewed Iron 50 Ferritin 339 H POC Glucose 08/28/18 08/28/18 08/28/18 11:50 06:28 02:10 POC Glucose 189 H 143 H 176 H 08/27/18 08/27/18 20:46 16:54 POC Glucose 216 H 132 H Medical Necessity - Tobacco Use Smoking Status: Never smoker Tobacco Use: Non-smoker Assessment/Plan All Active Problems Debility (Acute) 58 yr F with PMH HTN, HLD, DM, CKD, Obesity re-admitted to [facility] on 07/28/18 s/p debility post B/L LE weakness and falls, for > 3 hrs therapy daily, with a goal of returning back home at or near her prior level of functional independence. Per patient she started having difficulty walking, with frequent falls, with bilateral LE weakness, gradually progressive over the past few months around last December 2017, with right foot drop, admitted initially to [facility] hospital on 06/14/2018, then to [facility] on 06/20/2018. NCS reported to show demyelinating features with conduction block consistent with CIDP, started on IV Solumedrol 1 g daily for 5 days following which patient felt she was doing better, continued on Prednisone 60 mg daily, IVIG avoided due to CKD, Rheumatological work up negative. LP, Lyme's ab testing, West Nile AB testing was negative. LP done showed WBCs-11, RBCs-0, Protein-33. MRI brain reported nothing acute, MRI C spine reported to show Broad-based midline and para midline disc herniation at C5-6 more prominent on the left side impinging on the left C6 nerve root and MRI L spine reported to show Lumbar spondylosis with disc herniations and foraminal narrowing at L4-5 and L5-S1. Patient was later discharged to [facility] on 07/16/18 for plasmapheresis for worsening LE weakness. She is followed by nephrology for CKD and is planned to see vascular surgery as outpatient for fistula placement. Currently maintained on daily prednisone. Plan -Physical therapy for gait and balance -Occupational Therapy for ADLs -As needed analgesics -Bowel protocol -DVT prophylaxis: SCDs, Lovenox -GI prophylaxis- on Pantoprazole. -Hoarseness of voice- new complaint, voice rest, humidifier therapy, ENT consult as outpatient. -CIDP - On Prednisone 30 mg PO once daily. Slow taper of steroid as outpatient. On GI prophylaxis and on Calcium -Hypertension - well controlled and stable on current medication of Coreg, losartan and Hydralazine -HLD - continue home dose of Lipitor -DM type II - blood sugars ACHS, Moderate sliding scale, On Insulin -CKD-Nephrology consult, avoid nephrotoxic drugs, on d/c follow up appointment with Dr. Payan for Fistula placement. Dr. Lew following, decrease in HB and slight raise in creatinine to 2.8 (08/16/18), medications adjusted, lasix, amlodipine discontinued and Procrit given by Nephrology. S/P Blood transfusion, Hb8.6->9 (08/27/18), Cr-2.15 (08/24/18)->1.94 (08/27/18). -Obesity - BMI is 44.7, encourage weight loss, consult nutrition, documentation of snoring with obesity, outpatient sleep study on discharge. -Depression- on Zoloft and BuSpar -Fall precautions -Further medical management per hospitalist recommendations -Follow up with PCP, Nephrology, Vascular surgery, spine surgery, ENT and Neurology as outpatient following discharge
--- NOTE | 2018-08-28 16:03 | CASEMGMT ---
Social Work Level of Care faxed to the [facility]. Will fax discharge information to the [facility] [place], when obtained. Proposed discharge date: 08/30/18 PLAN: Discharge to the [facility] [place] under Intermediate level of care. Raj MADRID, JOSE
[2018-08-28 16:35] LABS: Bedside Glucose 290 mg/dL (70-110)
[2018-08-28 19:25] VITALS: BP 155/80; PULSE 66; RESP 18; TEMP 36.7; O2SAT 97
[2018-08-28 19:30] VITALS: PULSE 66; RESP 18; O2SAT 97
[2018-08-28] MEDS: Atorvastatin Calcium 20 MG Tablet PO (21:00)
[2018-08-28 21:01] VITALS: BP 155/80; PULSE 66
[2018-08-28] MEDS: Montelukast 10 MG Tablet PO (21:01)
[2018-08-28] MEDS: Gabapentin 300 MG Capsule PO (21:15)
[2018-08-28 21:16] LABS: Bedside Glucose 160 mg/dL (70-110)
[2018-08-29 02:45] LABS: Bedside Glucose 136 mg/dL (70-110)
[2018-08-29 06:10] VITALS: BP 158/81; PULSE 63
[2018-08-29] MEDS: busPIRone 5 MG Tablet PO ×3 (06:10→21:53)
[2018-08-29] MEDS: hydrALAZINE 50 MG Tablet PO ×3 (06:10→21:55)
[2018-08-29] MEDS: Enoxaparin 30 MG/0.3 ML Syringe SC (06:11)
[2018-08-29 06:36] LABS: Bedside Glucose 107 mg/dL (70-110)
[2018-08-29] MEDS: Insulin Lispro 100 UNIT/ML INSULN.PEN 12 UNIT SC ×3 (07:38→17:20)
[2018-08-29] MEDS: Carvedilol 25 MG Tablet PO ×2 (07:39→21:53)
[2018-08-29] MEDS: Losartan Potassium 100 MG Tablet PO (07:39)
[2018-08-29] MEDS: Sertraline 50 MG Tablet 25 MG PO (07:39)
[2018-08-29] MEDS: Calcium (Elemental) 500 MG Tablet PO ×2 (07:39→21:53)
[2018-08-29] MEDS: Sertraline 100 MG Tablet PO (07:39)
[2018-08-29] MEDS: predniSONE 10 MG Tablet 30 MG PO (07:39)
[2018-08-29] MEDS: Pantoprazole Sodium 20 MG Tablet PO (07:39)
[2018-08-29] MEDS: Multivitamins,Ther W-Minerals Tablet 1 TABLET PO (07:40)
[2018-08-29] MEDS: Ferrous Sulfate 325 MG Tablet PO ×3 (07:40→17:20)
[2018-08-29] MEDS: Menthol/Lanolin/Calamine/Znox 113 GM Tube 1 APPLIC TOPICAL (07:53)
[2018-08-29 08:54] VITALS: BP 158/81; PULSE 63; RESP 16; TEMP 36.7; O2SAT 97
[2018-08-29 11:30] LABS: Bedside Glucose 124 mg/dL (70-110)
[2018-08-29 13:10] VITALS: BP 144/80; PULSE 68
[2018-08-29 13:23] VITALS: PULSE 68
--- NOTE | 2018-08-29 14:14 | PCM.PN.HOSP ---
Subjective: Patient seen mood significantly improved following adjustment of his Zoloft dose Objective: GENERAL: cooperative HEENT: Atraumatic; moist oral mucosa EYES; Anicteric, Normal Conjunctiva NECK; supple, normal thyroid, no distended JVD. RESPIRATORY: Diminished to auscultation bilaterally, CARDIOVASCULAR: Regular S1 S2, no audible murmurs GI: soft, non-tender, normoactive bowel sounds, : No Renal angle tenderness; EXTREMITIES: No edema, no clubbing, no cyanosis. NEURO: Awake; no lateralizing signs. SKIN: No Rash PSYCH; Normal affect Vitals/I&O's: Vital Signs Temp Pulse Resp BP Pulse Ox 98.1 F 68 16 144/80 H 97 08/29/18 08:54 08/29/18 13:23 08/29/18 08:54 08/29/18 13:10 08/29/18 08:54 Oxygen Flow Rate (L/min) 96 Oxygen Delivery Method Room Air Weight: 115 kg Body Mass Index (BMI) 47.2 Intake and Output for Last 24 Hours 08/27/18 08/28/18 08/29/18 23:59 23:59 23:59 Intake Total 1180 / 1180 1240 / 1240 300 / 300 Output Total 1400 / 1400 1050 / 1050 1100 / 1100 Balance -220 / -220 190 / 190 -800 / -800 Laboratory Results 08/28/18 16:32: POC Glucose 290 H 08/28/18 21:07: POC Glucose 160 H 08/29/18 02:40: POC Glucose 136 H 08/29/18 06:21: POC Glucose 107 08/29/18 11:28: POC Glucose 124 H Current Medications Acetaminophen (Tylenol) 650 mg PO Q8H PRN PRN PRN Reason: PAIN Last Admin: 08/20/18 11:39 Dose: 650 mg Atorvastatin Calcium (Lipitor) 20 mg PO QHS [facility] Last Admin: 08/28/18 21:00 Dose: 20 mg Bisacodyl (Dulcolax) 10 mg RECTAL .PRN X 1 PRN PRN Reason: Constipation Bisacodyl (Dulcolax) 10 mg RECTAL .PRN X 1 PRN PRN Reason: Constipation Buspirone HCl (Buspar) 5 mg PO TID [facility] Last Admin: 08/29/18 13:23 Dose: 5 mg Calamine/Phenol (Calmoseptine Ointment) 1 applic TOPICAL BID [facility]; Protocol Last Admin: 08/29/18 07:53 Dose: 1 applicatio Calcium Carbonate (Os-Chinedu 500) 500 mg PO BID [facility] Last Admin: 08/29/18 07:39 Dose: 500 mg Carvedilol (Coreg) 25 mg PO BID [facility] Last Admin: 08/29/18 07:39 Dose: 25 mg Enoxaparin Sodium (Lovenox) 30 mg SC DAILY@0600 [facility] Last Admin: 08/29/18 06:11 Dose: 30 mg Ferrous Sulfate (Ferrous Sulfate) 325 mg PO TIDCM [facility] Last Admin: 08/29/18 11:51 Dose: 325 mg Gabapentin (Neurontin) 300 mg PO QHS [facility] Last Admin: 08/28/18 21:15 Dose: 300 mg Hydralazine HCl (Apresoline) 50 mg PO TID [facility] Last Admin: 08/29/18 13:23 Dose: 50 mg Hydrocortisone Acetate (Anusol Hc) 25 mg RECTAL BID PRN PRN PRN Reason: Hemorrhoids Last Admin: 08/19/18 17:58 Dose: 25 mg Insulin Glargine (Lantus (Bkc)) 42 units SC BREAKFAST [facility] Last Admin: 08/29/18 07:37 Dose: 42 units Insulin Human Lispro (Humalog Kwikpen (Bkc)) 0 unit SC ACHS & 0200 [facility]; Protocol Last Admin: 08/29/18 11:33 Dose: Not Given Insulin Human Lispro (Humalog Kwikpen (Bkc)) 12 unit SC TIDAC [facility] Last Admin: 08/29/18 11:52 Dose: 12 u Losartan Potassium (Cozaar) 100 mg PO DAILY [facility] Last Admin: 08/29/18 07:39 Dose: 100 mg Magnesium Hydroxide (Milk Of Magnesia) 30 ml PO .PRN X 1 PRN PRN Reason: Constipation Montelukast Sodium (Singulair) 10 mg PO QHS [facility] Last Admin: 08/28/18 21:01 Dose: 10 mg Multivitamins/Minerals (Multivitamin With Minerals) 1 tablet PO DAILY@0800 [facility] Last Admin: 08/29/18 07:40 Dose: 1 tablet Ondansetron HCl (Zofran Odt) 4 mg PO Q8H PRN PRN PRN Reason: NAUSEA Pantoprazole Sodium (Protonix) 20 mg PO DAILY [facility] Last Admin: 08/29/18 07:39 Dose: 20 mg Polyethylene Glycol (Miralax) 17 gm PO DAILY [facility] Last Admin: 08/29/18 07:33 Dose: Not Given Prednisone () 30 mg PO DAILY@0800 [facility] Last Admin: 08/29/18 07:39 Dose: 30 mg Senna/Docusate Sodium (Senokot-S, Leti-Colace) 2 tablet PO BID PRN PRN Reason: CONSTIPATION Sertraline HCl (Zoloft) 100 mg PO DAILY [facility] Last Admin: 08/29/18 07:39 Dose: 100 mg Sertraline HCl (Zoloft) 25 mg PO DAILY [facility] Last Admin: 08/29/18 07:39 Dose: 25 mg Sodium Chloride () 5 - 15 ml IV UD PRN PRN Reason: SALINE FLUSH Last Admin: 08/24/18 09:13 Dose: 10 ml Medical Necessity - Tobacco Use Smoking Status: Never smoker Tobacco Use: Non-smoker Assessment/Plan All Active Problems Debility (Acute) Patient is a 58-year-old lady with recent diagnosis of chronic inflammatory demyelinating polyneuropathy for which she underwent plasmapheresis at [facility] and subsequently transferred to the inpatient rehab unit for recuperation 1. Debility secondary to CIDP. Status post plasmapheresis patient remains on prednisone 2. Severe depression patient on sertraline dose of which has been increased from 100-125 mg daily 3. Diabetes mellitus type 2 did continue home regimen in addition to Accu-Cheks before meals and at bedtime with sliding scale coverage 4. Chronic diastolic heart failure; stable patient was previously on Lasix discontinued in view of worsening azotemia 5. Chronic kidney disease stage III secondary to diabetic nephropathy patient was on Lasix discontinued in view of worsening azotemia 6. Hypertension-blood pressure controlled, home medications continued with dose adjustment as needed 7. DVT PPx- Lovenox dose adjusted for kidney function Active Medications Acetaminophen (Tylenol) 650 mg PO Q8H PRN PRN PRN Reason: PAIN Last Admin: 08/20/18 11:39 Dose: 650 mg Atorvastatin Calcium (Lipitor) 20 mg PO QHS [facility] Last Admin: 08/26/18 21:00 Dose: 20 mg Bisacodyl (Dulcolax) 10 mg RECTAL .PRN X 1 PRN PRN Reason: Constipation Bisacodyl (Dulcolax) 10 mg RECTAL .PRN X 1 PRN PRN Reason: Constipation Buspirone HCl (Buspar) 5 mg PO TID [facility] Last Admin: 08/27/18 12:55 Dose: 5 mg Calamine/Phenol (Calmoseptine Ointment) 1 applic TOPICAL BID [facility]; Protocol Last Admin: 08/27/18 08:05 Dose: 1 applicatio Calcium Carbonate (Os-Chinedu 500) 500 mg PO BID [facility] Last Admin: 08/27/18 07:58 Dose: 500 mg Carvedilol (Coreg) 25 mg PO BID [facility] Last Admin: 08/27/18 08:00 Dose: 25 mg Enoxaparin Sodium (Lovenox) 30 mg SC DAILY@0600 [facility] Last Admin: 08/27/18 06:06 Dose: 30 mg Ferrous Sulfate (Ferrous Sulfate) 325 mg PO TIDCM [facility] Last Admin: 08/27/18 11:29 Dose: 325 mg Gabapentin (Neurontin) 300 mg PO QHS [facility] Last Admin: 08/26/18 20:57 Dose: 300 mg Hydralazine HCl (Apresoline) 50 mg PO TID [facility] Last Admin: 08/27/18 12:55 Dose: 50 mg Hydrocortisone Acetate (Anusol Hc) 25 mg RECTAL BID PRN PRN PRN Reason: Hemorrhoids Last Admin: 08/19/18 17:58 Dose: 25 mg Insulin Glargine (Lantus (Bkc)) 42 units SC BREAKFAST [facility] Last Admin: 08/27/18 08:01 Dose: 42 units Insulin Human Lispro (Humalog Kwikpen (Bkc)) 0 unit SC ACHS & 0200 [facility]; Protocol Last Admin: 08/27/18 11:28 Dose: Not Given Insulin Human Lispro (Humalog Kwikpen (Bkc)) 12 unit SC TIDAC [facility] Last Admin: 08/27/18 11:29 Dose: 12 u Losartan Potassium (Cozaar) 50 mg PO DAILY [facility] Last Admin: 08/27/18 08:00 Dose: 50 mg Magnesium Hydroxide (Milk Of Magnesia) 30 ml PO .PRN X 1 PRN PRN Reason: Constipation Montelukast Sodium (Singulair) 10 mg PO QHS [facility] Last Admin: 08/26/18 20:57 Dose: 10 mg Multivitamins/Minerals (Multivitamin With Minerals) 1 tablet PO DAILY@0800 [facility] Last Admin: 08/27/18 07:58 Dose: 1 tablet Ondansetron HCl (Zofran Odt) 4 mg PO Q8H PRN PRN PRN Reason: NAUSEA Pantoprazole Sodium (Protonix) 20 mg PO DAILY [facility] Last Admin: 08/27/18 07:58 Dose: 20 mg Polyethylene Glycol (Miralax) 17 gm PO DAILY [facility] Last Admin: 08/27/18 09:26 Dose: Not Given Prednisone () 30 mg PO DAILY@0800 [facility] Last Admin: 08/27/18 07:58 Dose: 30 mg Senna/Docusate Sodium (Senokot-S, Leti-Colace) 2 tablet PO BID PRN PRN Reason: CONSTIPATION Sertraline HCl (Zoloft) 100 mg PO DAILY [facility] Last Admin: 08/27/18 07:59 Dose: 100 mg Sertraline HCl (Zoloft) 25 mg PO DAILY [facility] Sodium Chloride () 5 - 15 ml IV UD PRN PRN Reason: SALINE FLUSH Last Admin: 08/24/18 09:13 Dose: 10 ml Code Visit Inpatient E&M: 96085 Subs Hosp L2
--- NOTE | 2018-08-29 16:01 | CASEMGMT ---
Social Work Level of care obtained and faxed to the [facility] [place] along with discharge information. Proposed discharge date: 08/30/18 PLAN: Discharge to the [facility] [place] - Intermediate level of care. Raj MADRID, JOSE
[2018-08-29 17:06] LABS: Bedside Glucose 238 mg/dL (70-110)
[2018-08-29] MEDS: Insulin Lispro 100 UNIT/ML INSULN.PEN SC ×2 (17:20→21:53)
[2018-08-29 19:23] VITALS: BP 152/67; PULSE 64; RESP 18; TEMP 36.2; O2SAT 97
[2018-08-29 21:21] LABS: Bedside Glucose 264 mg/dL (70-110)
[2018-08-29] MEDS: Gabapentin 300 MG Capsule PO (21:53)
[2018-08-29] MEDS: Montelukast 10 MG Tablet PO (21:53)
[2018-08-29] MEDS: Atorvastatin Calcium 20 MG Tablet PO (21:53)
[2018-08-29 21:55] VITALS: PULSE 64
[2018-08-30 02:50] LABS: Bedside Glucose 223 mg/dL (70-110)
[2018-08-30] MEDS: Insulin Lispro 100 UNIT/ML INSULN.PEN SC ×2 (02:50→08:26)
[2018-08-30 06:32] VITALS: PULSE 62
[2018-08-30] MEDS: hydrALAZINE 50 MG Tablet PO (06:32)
[2018-08-30] MEDS: busPIRone 5 MG Tablet PO (06:33)
[2018-08-30] MEDS: Enoxaparin 30 MG/0.3 ML Syringe SC (06:33)
[2018-08-30 06:46] LABS: Bedside Glucose 151 mg/dL (70-110)
[2018-08-30 08:11] VITALS: BP 153/71; PULSE 62; RESP 18; TEMP 36.6; O2SAT 96
[2018-08-30] MEDS: Calcium (Elemental) 500 MG Tablet PO (08:25)
[2018-08-30] MEDS: Sertraline 50 MG Tablet 25 MG PO (08:25)
[2018-08-30] MEDS: Ferrous Sulfate 325 MG Tablet PO ×2 (08:25→12:04)
[2018-08-30] MEDS: Losartan Potassium 100 MG Tablet PO (08:25)
[2018-08-30] MEDS: Multivitamins,Ther W-Minerals Tablet 1 TABLET PO (08:25)
[2018-08-30] MEDS: Pantoprazole Sodium 20 MG Tablet PO (08:25)
[2018-08-30] MEDS: Sertraline 100 MG Tablet PO (08:25)
[2018-08-30] MEDS: predniSONE 10 MG Tablet 30 MG PO (08:25)
[2018-08-30] MEDS: Carvedilol 25 MG Tablet PO (08:26)
[2018-08-30] MEDS: Insulin Lispro 100 UNIT/ML INSULN.PEN 12 UNIT SC ×2 (08:26→12:04)
[2018-08-30] MEDS: Menthol/Lanolin/Calamine/Znox 113 GM Tube 1 APPLIC TOPICAL (08:27)
[2018-08-30] MEDS: Glycerin/Hypromellose/PEG400 15 ml Bottle 1 DRP EACH EYE (08:28)
[2018-08-30 11:14] VITALS: BP 153/71; PULSE 62; RESP 18; TEMP 36.6; O2SAT 96
[2018-08-30 11:16] LABS: Bedside Glucose 145 mg/dL (70-110)
--- NOTE | 2018-08-30 12:39 | NURSING ---
gave report to N[facility] from the [facility] [phone] faxed AUG [phone]
--- NOTE | 2018-08-30 14:09 | CASEMGMT ---
Insurance Notified insurance of patient discharge on this day to the [facility] [place]. Auth#[id number] Raj MADRID, JOSE
== END 2018-08-30 12:30 | disposition skilled nursing facility (03) | DRG 948 ==
PROVIDERS: Family Medicine; Internal Medicine; Internal Medicine Nephrology; Student in an Organized Health Care Education/Training Program; Admitting Provider Psychiatry & Neurology Neurology; Family Provider Family Medicine; PCP Family Medicine; Referring Provider Psychiatry & Neurology Neurology; Visit Provider Internal Medicine
DX: R53.81 Other malaise (principal); G61.81 Chronic inflammatory demyelinating polyneuritis; Z68.42 Body mass index [BMI] 45.0-49.9, adult; N18.4 Chronic kidney disease, stage 4 (severe); E87.1 Hypo-osmolality and hyponatremia; I13.0 Hypertensive heart and chronic kidney disease with heart failure and stage 1 through stage 4 chronic kidney disease, or unspecified chronic kidney disease; I50.32 Chronic diastolic (congestive) heart failure; E11.22 Type 2 diabetes mellitus with diabetic chronic kidney disease; E78.5 Hyperlipidemia, unspecified; E66.9 Obesity, unspecified; R58 Hemorrhage, not elsewhere classified; T45.515A Adverse effect of anticoagulants, initial encounter; F32.9 Major depressive disorder, single episode, unspecified; M21.371 Foot drop, right foot; Z71.3 Dietary counseling and surveillance; M47.896 Other spondylosis, lumbar region; M50.222 Other cervical disc displacement at C5-C6 level; R49.0 Dysphonia; D63.1 Anemia in chronic kidney disease
CPT/HCPCS: 36415; 71046; 71250; 80048; 80069; 82274; 82607; 82728; 82962; 83540; 83550; 83880; 83970; 85014; 85018; 85025; 85027; 86850; 86900; 86920; 86922; 93306; 97110; 97112; 97116; 97163; 97166; 97530; 97535; 97802; J0885; J1756; J7040; P9016; Q9957; A4216; J1940

== ENCOUNTER → 2018-09-10 12:38 | Outpatient (CLI) | payer OTHER, MEDICAID, SELFPAY ==
[2018-07-28 14:02] VITALS: BMI 47.2
--- NOTE | 2018-09-10 12:43 | VDUE_ITS ---
Reason For Study: CKD Right Arm Left Arm Right Cephalic Vein at the wrist Left Cephalic Vein at the wrist measures .22 measures .19 x .21 cm. x .23 cm. Right Cephalic Vein in the forearm Left Cephalic Vein in the forearm measures .19 x .19 cm. measures .26 x .26 cm. Right Cephalic Vein below antecub Left Cephalic Vein below antecub measures .18 x .19 cm. measures .27 x .27 cm. Right Cephalic Vein above antecub Left Cephalic Vein above antecub measures .28 x .30 cm. measures .30 x .30 cm. Right Cephalic Vein mid bicep measures .23 Left Cephalic Vein at mid bicep measures .23 x .24 cm. x .23 cm. Right Cephalic Vein at the shoulder Left Cephalic Vein at the shoulder measures .24 x .23 cm. measures .20 x .24 cm. Right Basilic Vein at the origin Basilic vein at origin measures .30 x .30 measures .28 x .24 cm. cm. Right Basilic Vein mid bicep measures .37 Basilic vein at bicep measures .28 x .33 cm. x .37 cm. Basilic vein above antecub measures .32 Right Basilic Vein above antecub x .34 cm. measures .35 x .37 cm. Brachial artery - .50 x .47 cm with a Brachial artery - .43 x .47 cm with a velocity of 110 cm/s velocity of 88 cm/s Radial artery - .23 x .24 cm with a velocity Radial artery - .20 x .22 cm with a velocity of 91.1 cm/s. of 97.4 cm/s. Interpretation Summary Patent and compressible bilateral cephalic and basilic veins with dimensions as noted. Normal flow bilateral brachial and radial arteries with small radial arteries noted. Ordering Physician: Bairon Payan Referring Physician: Bairon Payan Performed By: Jada Hernandez MARIA LYane ?
== END ==
PROVIDERS: Family Provider Family Medicine; PCP Family Medicine; Referring Provider Surgery; Visit Provider Surgery
DX: Z01.818 Encounter for other preprocedural examination (principal); N18.9 Chronic kidney disease, unspecified
CPT/HCPCS: 93970

== ENCOUNTER 2018-10-08 09:04 | Day surgery (SDC) | payer OTHER, MEDICAID, SELFPAY ==
[2018-09-19 07:31] VITALS: BMI 47.2
[2018-10-08] VITALS (9 sets, daily range): BP systolic 119–135; BP diastolic 63–78; PULSE 59–63; RESP 16–18; TEMP 36.2–36.3; O2SAT 93–97; BMI 43.9
--- NOTE | 2018-10-08 09:47 | EKG12_ITS ---
Test Reason : PREOP Blood Pressure : / mmHG Vent. Rate : 058 BPM Atrial Rate : 058 BPM P-R Int : 174 ms QRS Dur : 090 ms QT Int : 450 ms P-R-T Axes : 028 001 066 degrees QTc Int : 441 ms Sinus bradycardia Septal infarct (cited on or before 14-JUN-2018), age undetermined, cannot be excluded Abnormal ECG Confirmed by CORDELIA KRUSE, DORINA ([id number]), make up editor ADRIEN FARRIS ([id number]) on 10/10/2018 1:42:49 PM Referred By: Bairon Payan Confirmed By:DORINA STOREY MD
[2018-10-08 10:25] LABS: Bedside Glucose 111 mg/dL (70-110)
--- NOTE | 2018-10-08 11:17 | DCINST_ITS ---
Discharge Diet: Renal Diet Discharge Activity: May Not Drive - for 2-3 days or while taking narcotic pain medications., May Shower, May Take a Tub Bath - in 5 days. Lifting Restrictions: 5 pounds Keep extremity elevated above heart level: - - Keep arm elevated above the heart level for 3 days. Additional Activity Instructions:: Exercise hand vigorously with a stress ball. Call your doctor if your incision/area has: Continuous Slow Oozing, Sudden Increased Bleeding - apply pressure and call your doctor., Increased Pain/ Swelling, Increased Redness, Foul Smelling Discharge Call your doctor if you observe: Fever of 101 or Higher Suture Line Care: Avoid Pulling/Pushing, Avoid Pinching/Bending Cleanse incision/area with: Keep Dressing Clean & Dry Additional Dressing/Incision Instructions:: Change or remove dressing in one day. May protect with a gauze bandaid. Allergies/Adverse Reactions: Allergies latex Allergy (Verified 10/04/18 14:55) Hives Sulfa (Sulfonamide Antibiotics) Allergy (Verified 10/04/18 14:55) Rash codeine Adverse Reaction (Verified 10/04/18 14:55) Other CONFUSION Medications to take at Discharge Montelukast [Singulair] 10 mg PO QHS 10/29/13 Gabapentin [Neurontin] 300 mg PO QHS 06/14/18 Sertraline HCl 125 mg PO DAILY 06/14/18 Calcium Carbonate 500 mg PO DAILY 06/20/18 Pantoprazole Sodium [Protonix] 20 mg PO DAILY 06/20/18 Atorvastatin Calcium [Lipitor] 20 mg PO QHS 07/28/18 Carvedilol [Coreg (Beta Shannon)] 25 mg PO BID 07/28/18 busPIRone [Buspar] 5 mg PO TID 07/28/18 Ferrous Sulfate 325 mg PO TIDCM tab 08/24/18 Hydrocortisone [Anusol Hc] 25 mg RECTAL BID PRN PRN suppos. 08/24/18 furosemide 20 mg tablet 20 mg PO DAILY 09/19/18 hydralazine 50 mg tablet 50 mg PO TID 09/19/18 Insulin Glargine,Hum.rec.anlog [Basaglar Kwikpen U-100] 37 unit SQ DAILY 10/04/18 Insulin Lispro [Humalog Kwikpen] 12 unit SQ ACHS 10/04/18 Losartan Potassium [Cozaar] 100 mg PO QHS 10/04/18 predniSONE tablet 30 mg PO 1200 10/04/18 Primary Care Physician: Param Razo MD [Primary Care Provider] - Test Results: Test results from this visit will be discussed in further detail at your follow- up appointment, if applicable. Please Follow Up With: Bairon Payan MD - [phone] When: Call to make an appointment for follow up in 10 days
[2018-10-08] MEDS: Bupivacaine 0.5% PF 10 ML VIAL (11:45)
[2018-10-08] MEDS: Heparin Injection (Vial) 5,000 UNIT/ML VIAL 5000 UNIT (11:45)
--- NOTE | 2018-10-08 12:36 | PCM.OPRPT ---
Problem List (1) Chronic kidney disease Status: Chronic Qualifiers: Chronic kidney disease stage: stage 4 (severe) Report of Operation Date of Procedure: 10/08/18 Pre-Operative Diagnosis: Stage IV chronic renal insufficiency Post-Operative Diagnosis: Same Surgery/Procedure Performed:: Stage I right extremity brachiocephalic arteriovenous fistula creation Description of Surgical Findings:: Timeout and informed consent was obtained. 58-year-old female taken down from placement table with monitored anesthesia care of the right extremity sterilely prepped and draped 1% lidocaine mixed 50-50 with 0.5% Marcaine was used as local anesthetic total of 10 cc was used. Ultrasound was used to identify the course of the cephalic vein at the antecubital space. Local was instilled a slightly longitudinal incision over the vein was created sharp and blunt dissection was used to identify the vein side branches were secured with hemoclips and 4-0 Vicryl ties were indicated. Then sharp and blunt dissection used to identify the brachial artery circumferential control was obtained hemostasis obtained with interrupted 3-0 Vicryl. The patient received 10,000 units of heparin intravenously. After adequate Strickling time the vein was ligated distally with a 4-0 Vicryl then peripheral vascular clamps were placed on the brachial artery and 11 blade was used to make an arteriotomy which was extended with Calderón scissors a end-to-side anastomosis was created with a running 7-0 Prolene. Prior to completion there was good antegrade retrograde flow the anastomosis was completed there was a good thrill within the bruit the hand was inspected it appeared to be pink it appeared to have temperature there was Doppler signal at both the radial and ulnar albeit boarding upon monophasic. The hand was affected I felt that it was viable. I felt that the fistula had not been spatulated so as to not create excessive flow. The wound was closed with a deep layer of interrupted 3-0 Vicryl and then a superficial layer of running septic or 4-0 Monocryl. Steri-Strips Telfa and tape dressings applied. Sponge and instrument and needle counts were reported in the surgery were correct. Blood loss was minimal. She tolerated the procedure well was taken to the recovery area in satisfactory condition without apparent complication. Bairon Payan M.D., F.A.C.S. Type of Anesthesia:: Local MAC Anesthesiologist: Gildardo Bowie
--- NOTE | 2018-10-19 15:34 | HP_ITS ---
Intake Intake Visit Reasons: FU FISTULA INSERT 10/08/18 Allergies latex Allergy (Verified 10/10/18 16:07) Hives Sulfa (Sulfonamide Antibiotics) Allergy (Verified 10/10/18 16:07) Rash codeine Adverse Reaction (Verified 10/10/18 16:07) Other Medications Montelukast [Singulair] 10 mg PO QHS 10/29/13 [History Confirmed 10/10/18] Gabapentin [Neurontin] 300 mg PO QHS 06/14/18 [History Confirmed 10/10/18] Sertraline HCl 125 mg PO DAILY 06/14/18 [History Confirmed 10/10/18] Calcium Carbonate 500 mg PO DAILY 06/20/18 [History Confirmed 10/10/18] Pantoprazole Sodium [Protonix] 20 mg PO DAILY 06/20/18 [History Confirmed 10/10/18] Atorvastatin Calcium [Lipitor] 20 mg PO QHS 07/28/18 [History Confirmed 10/10/18] Carvedilol [Coreg (Beta Shannon)] 25 mg PO BID 07/28/18 [History Confirmed 10/10/18] busPIRone [Buspar] 5 mg PO TID 07/28/18 [History Confirmed 10/10/18] Ferrous Sulfate 325 mg PO TIDCM tab 08/24/18 [Rx Confirmed 10/10/18] Hydrocortisone [Anusol Hc] 25 mg RECTAL BID PRN PRN suppos. 08/24/18 [Rx Confirmed 10/10/18] furosemide 20 mg tablet 20 mg PO DAILY 09/19/18 [History Confirmed 10/10/18] hydralazine 50 mg tablet 50 mg PO TID 09/19/18 [History Confirmed 10/10/18] Insulin Glargine,Hum.rec.anlog [Basaglar Kwikpen U-100] 37 unit SQ DAILY 10/04/18 [History Confirmed 10/10/18] Insulin Lispro [Humalog Kwikpen] 12 unit SQ ACHS 10/04/18 [History Confirmed 10/10/18] Losartan Potassium [Cozaar] 100 mg PO QHS 10/04/18 [History Confirmed 10/10/18] predniSONE tablet 30 mg PO 1200 10/04/18 [History Confirmed 10/10/18] Ondansetron [Zofran Odt] 4 mg PO Q8H PRN PRN #10 tab 10/10/18 [Rx] PFSH Medical History Problem with dialysis access (Acute) 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) Hyperlipidemia (Chronic) Chronic kidney disease (Chronic) HTN (hypertension) (Chronic) Obesity (Chronic) DM2 (diabetes mellitus, type 2) (Chronic) Anemia (Acute) GERD (gastroesophageal reflux disease) (Acute) Surgical History History of cholecystectomy (Acute) History of tubal ligation (Acute) Family History Father Diabetes Mother Heart disease Social History Smoking Status: Never smoker HPI HPI HPI: STACEY WOODSON, is a 58 F who presents to the office today for HPI HPI Surgical H&P: Yes HPI: STACEY WOODSON, is a 58 F who presents to the office today for surgical follow-up status post stage I right upper extremity brachial to cephalic arteriovenous hemodialysis fistula which I created for her on October 08, 2018. We have evidence that on October 18, 2018 she had a venous imaging study of the right extremity because of swelling. No DVT was identified. It is very pertinent note that the patient has chronic inflammatory demyelinating polyneuropathy. She has chronic debility chronic kidney disease obesity and type 2 diabetes mellitus. On her presentation today she is complaining of severe swelling of the right hand forearm and arm. She is complaining of severe pain at the incision site. It is notable that her presentation seems significantly outer port proportion to the typical stage I patient and the procedure itself has been very uncomplicated straightforward a simple direct anastomosis. The fistula itself has a pulse and thrill and bruit Exam Const General: cooperative, other (Uncomfortable. Difficult moving her right upper extremity) Nutritional Appearance: obese Resp Effort & Inspection: normal respiratory effort Auscultation: clear to auscultation bilaterally Cardio Rate: regular rate Rhythm: regular rhythm Neuro General: alert, awake, oriented x3 Extrem Other: Right upper extremity is swollen throughout. The antecubital incision is clean dry and healing well. The fistula has a pulse thrill and bruit. Ultrasound inspection demonstrates that the cephalic vein appears to be well distended. Assessment & Plan Problems 1. Problem with dialysis access, initial encounter T82.056E Plan 58-year-old female. Her presentation status post stage I right extremity brachiocephalic AV fistula creation seems significantly out of proportion to typical. It is not clear to me the etiology to the significant pain and swelling of the right upper extremity. As noted she has had a recent venous imaging study which does not demonstrate deep venous thrombosis. She notes some remote previous indwelling device centrally venously from the right. Not clear what that might have been. I discussed with her at this point the only resolution I would have is to perform a carbon dioxide fistulogram of the right upper extremity looking at her central venous outflow inspecting for the possible site of the central venous outflow issue that could be addressed endovascularly. If a site can be identified then we will try to pursue that at the same setting. If no evidence of central venous obstruction is identified then we may need to simply sacrifice and ligate the fistula. It may be the patient's systemic disease processes chronic steroid use CIDP etc. contributing to this issue. At this point I do not have a clear etiology unless there is central stenosis. The patient is very concerned about pain. She does not feel that she can have this procedure done under the typical local medication with minimal IV sedation. Therefore I will request monitored anesthesia care to be present at the time of the right upper extremity fistulogram. I anticipate accessing closer to the antecubital space antegrade with flow. It is of additional note that the patient has chronic bilateral extremity edema. She did not previously have right upper extremity edema and does not have a left upper extremity edema. We will continue to try to assist. CC: Dr. Jillian Payan M.D., F.A.C.S. Coding Level of Care Code Off vis,est,level 3 Diagnoses Problem with dialysis access, initial encounter T82.898A ??Encounter type: initial encounter Comment Problem with access requiring additional treatment 10/19/18 1534 <Electronically signed by Bairon Payan MD> Date Bairon Payan MD
== END 2018-10-08 15:04 | disposition home or self-care (01) ==
LOC: SDC 09:06 → AC 09:07
PROVIDERS: Family Provider Family Medicine; PCP Family Medicine; Referring Provider Surgery; Visit Provider Surgery
PROC: (CPT 36821; principal; 2018-10-08 11:05)
DX: Z49.01 Encounter for fitting and adjustment of extracorporeal dialysis catheter (principal); E11.22 Type 2 diabetes mellitus with diabetic chronic kidney disease; I12.9 Hypertensive chronic kidney disease with stage 1 through stage 4 chronic kidney disease, or unspecified chronic kidney disease; N18.4 Chronic kidney disease, stage 4 (severe); E78.5 Hyperlipidemia, unspecified; G61.81 Chronic inflammatory demyelinating polyneuritis; K21.9 Gastro-esophageal reflux disease without esophagitis; Z79.899 Other long term (current) drug therapy; Z79.4 Long term (current) use of insulin; Z79.51 Long term (current) use of inhaled steroids; E66.9 Obesity, unspecified; Z68.41 Body mass index [BMI] 40.0-44.9, adult; F41.9 Anxiety disorder, unspecified; F32.9 Major depressive disorder, single episode, unspecified; R00.1 Bradycardia, unspecified; J45.909 Unspecified asthma, uncomplicated
CPT/HCPCS: 36821; 82962; 93005

== ENCOUNTER 2018-10-10 16:04 | Emergency (ER) | payer OTHER, MEDICAID, SELFPAY ==
[2018-10-08 09:47] VITALS: BMI 43.9
[2018-10-10 16:05] VITALS: BP 169/79; PULSE 82; RESP 16; TEMP 37.1; O2SAT 95; BMI 104.1
[2018-10-10] MEDS: Ondansetron 4 MG/2 ML Vial IV (16:35)
[2018-10-10 17:17] LABS: Absolute Lymphocyte Count 0.37 X10^3/ul (0.83-4.51); Absolute Neutrophil Count 10.5 X10^3/uL (2.0-7.7); Basophil# 0.02 X10^3/uL; Basophil% 0.2 % (0-1); Differential Indicated SCAN CRITERIA MET; Eosinophil# 0.03 X10^3/uL; Eosinophils% 0.3 % (0-5); Hematocrit 29.7 % (37-47); Hemoglobin 9.6 g/dl (12.0-15.0); Lymphocyte # 0.37 X10^3/ul (4.0); Lymphocyte % 3.2 % (19-41); Mean Corp Hgb Conc 32.3 g/gl (32-36); Mean Corpuscular Hgb 27.9 pg (27.0-32.0); Mean Corpuscular Volume 86.3 fL (81-99); Mean Platelet Vol. 10.3 fl (6.2-12.0); Monocyte# 0.65 X10^3/uL; Monocyte% 5.5 % (0-10); Neutrophil # 10.51 X10^3/uL (2.7-7.7); Neutrophil % 89.4 % (47-70); POSITIVE COUNT NO; POSITIVE DIFFERENTIAL YES; POSITIVE MORPHOLOGY NO; Platelet Count 193 K/mm3 (150-450); RBC Distribution Width CV 14.5 % (11.6-14.6); RBC Distribution Width SD 45.7 fl (35.1-43.9); Red Blood Count 3.44 M/mm3 (4.2-5.4); White Blood Count 11.7 K/mm3 (4.4-11.0)
[2018-10-10 17:23] LABS: Anion Gap 4 (5-15); BUN 76 mg/dL (7-18); BUN/Creat Ratio 29.2 RATIO (10-20); Calcium,Total 8.7 mg/dL (8.5-10.1); Chloride 111 mmol/L (98-107); EST Glomerular Filtration Rate 20 mL/min (>60); Est Glom Filt Rate - Afr Amer 24 mL/min (>60); Estimated Creatinine Clearance 18.23 ml/min; Glucose 79 mg/dL (74-106); Potassium 5.1 mmol/L (3.5-5.1); Sodium Level 141 mmol/L (136-145)
[2018-10-10 17:33] LABS: Differential Comment SCANNED
--- NOTE | 2018-10-10 18:24 | ED.DCSUM_ITS ---
- ER Visit Summary Date of Service: 10/10/18 Chief Complaint: Vomiting and diarrhea History of Present Illness: The patient is a [address] Lew, Dr. Razo, and Dr. Neal. She reports that she has vomiting and diarrhea that began approximately 4 hours ago. She vomited 5 times. No blood or emesis. She had 2 episodes of diarrhea. No blood in her stools or black tarry stools. She denies any abdominal pain. She is at [facility] at this time. Reports that she had a right arm fistula [address] Bairon Payan. However, she reports that this is improving greatly. She has minimal pain. She denies any sick contacts. Has not been camping or out of the country. No recent antibiot ics. No possible food exposure. She does not drink well water. Physical Examination: Vitals: Stable. Afebrile. General: Well-nourished and well-developed. Head: Normocephalic atraumatic. Neck: Supple, no lymphadenopathy. No JVD. Nontender. Cardiovascular: Regular rate and rhythm. No murmurs. Respiratory: No respiratory distress. Clear to auscultation bilaterally. Abdominal: Soft, nontender, nondistended, normal bowel sounds. No guarding, rebound, or peritoneal signs. Back: Nontender. Extremities: Nontender, no edema. Fistula to the right arm is healing well. The incision is clean dry and intact. There is no erythema. Is minimally tender to palpation. Skin: Normal color, no rash. Neurologic: Alert and oriented ?3. Cranial nerves II through XII are intact. Normal strength and sensation. Psych: Normal affect. Test Results: CBC shows a white count of 11.7 with an H&H of 9.6 and 29.7, segmented neutrophils 89, lymphocytes of 3. Chem-7 shows a chloride of 111, BUN of 76, creatinine 2.6. This is at her baseline. Emergency Department Course and Treatment: Patient received a dose of Zofran. She feels much improved. She has had no vomiting or diarrhea while here. Treatment Plan: Patient be discharged on Zofran. Instructed to follow-up with her primary care physician 1-2 days if not improving. Return to the emergency department for any worsening symptoms. Disposition: To home in improved and stable condition. Impression: 1. Vomiting/diarrhea. This note was generated with [employer] dictation software. It may contain incorrect words, spelling, and punctuation that were not noted in review of the chart prior to signing ED Disposition - Plan for ED Patient: Disposition: Care Home Facility Instructions: ED Vomiting Diarrhea Nonspecific Ad Prescriptions: Ondansetron [Zofran Odt] 4 mg PO Q8H PRN PRN #10 tablet PRN Reason: Nausea Referrals: Param Razo MD [Primary Care Provider] - 1-2 Days if not improving
[2018-10-10 18:41] VITALS: BP 118/66; PULSE 79; RESP 16; O2SAT 92
[2018-10-10 19:37] VITALS: BP 123/71; PULSE 75; RESP 16; O2SAT 97
--- NOTE | 2018-10-10 19:45 | ED.RN ---
REPORT GIVEN TO DERRICK AT [facility].
== END 2018-10-10 19:34 ==
PROVIDERS: Emergency Provider Emergency Medicine; Family Provider Family Medicine; PCP Family Medicine
DX: R11.2 Nausea with vomiting, unspecified (principal); R19.7 Diarrhea, unspecified; I12.9 Hypertensive chronic kidney disease with stage 1 through stage 4 chronic kidney disease, or unspecified chronic kidney disease; E11.22 Type 2 diabetes mellitus with diabetic chronic kidney disease; N18.4 Chronic kidney disease, stage 4 (severe); E78.00 Pure hypercholesterolemia, unspecified; E11.40 Type 2 diabetes mellitus with diabetic neuropathy, unspecified; Z99.2 Dependence on renal dialysis; Z90.49 Acquired absence of other specified parts of digestive tract; Z79.4 Long term (current) use of insulin; Z79.899 Other long term (current) drug therapy
CPT/HCPCS: 80048; 85025; 96374; 99285; A4216; J2405

== ENCOUNTER → 2018-10-18 | Outpatient (CLI) | payer OTHER, MEDICAID, SELFPAY ==
[2018-10-10 16:05] VITALS: BMI 104.1
[2018-10-18 11:51] LABS: Absolute Lymphocyte Count 1.78 X10^3/ul (0.83-4.51); Absolute Neutrophil Count 7.1 X10^3/uL (2.0-7.7); Basophil# 0.04 X10^3/uL; Basophil% 0.4 % (0-1); Eosinophil# 0.19 X10^3/uL; Eosinophils% 1.9 % (0-5); Hematocrit 30.5 % (37-47); Hemoglobin 9.5 g/dl (12.0-15.0); Lymphocyte # 1.78 X10^3/ul (4.0); Lymphocyte % 17.6 % (19-41); Mean Corp Hgb Conc 31.1 g/gl (32-36); Mean Corpuscular Hgb 27.3 pg (27.0-32.0); Mean Corpuscular Volume 87.6 fL (81-99); Mean Platelet Vol. 10.4 fl (6.2-12.0); Monocyte# 0.81 X10^3/uL; Neutrophil # 7.12 X10^3/uL (2.7-7.7); Neutrophil % 70.4 % (47-70); Platelet Count 214 K/mm3 (150-450); RBC Distribution Width CV 14.4 % (11.6-14.6); RBC Distribution Width SD 44.2 fl (35.1-43.9); Red Blood Count 3.48 M/mm3 (4.2-5.4); White Blood Count 10.1 K/mm3 (4.4-11.0)
[2018-10-18 11:52] LABS: Differential Indicated SCAN CRITERIA MET; POSITIVE COUNT NO; POSITIVE DIFFERENTIAL NO; POSITIVE MORPHOLOGY YES
--- NOTE | 2018-10-18 11:54 | VDUE_ITS ---
Reason For Study: RUE Swelling Right Proximal Right jugular vein is spontaneous, widely patent, phasic, with no intraluminal echogenicity noted. Right subclavian vein is spontaneous, widely patent, phasic, with no intraluminal echogenicity noted. Right Lower Arm Right radial vein is compressible. Right ulnar vein is compressible. Right Arm Right axillary vein is spontaneous, patent, phasic, competent, compressible and demonstrates augmentation. Right brachial vein is compressible. Right cephalic vein is compressible. Right basilic vein is compressible. Patient Safety Prelim faxed to [facility]. Interpretation Summary No evidence for acute deep venous thrombosis[right] upper extremity with patent and compressible cephalic and basilic veins. Ordering Physician: GASTON Rockwell Referring Physician: Param Razo Performed By: Heather Castellano RVT ?
[2018-10-18 12:06] LABS: ALB/GLOB Ratio 0.8 RATIO (0.9-2.4); AST(SGOT) 20 U/L (15-37); Alanine Aminotransfer ALT/SGPT 32 U/L (13-56); Albumin, Serum 2.5 g/dL (3.2-5.0); Alkaline Phosphatase 87 U/L (45-117); Anion Gap 7 (5-15); BUN 68 mg/dL (7-18); BUN/Creat Ratio 26.7 RATIO (10-20); Calcium,Total 8.3 mg/dL (8.5-10.1); Chloride 112 mmol/L (98-107); Creatinine, Serum 2.55 mg/dL (0.55-1.02); EST Glomerular Filtration Rate 21 mL/min (>60); Est Glom Filt Rate - Afr Amer 25 mL/min (>60); Glucose 93 mg/dL (74-106); Potassium 3.3 mmol/L (3.5-5.1); Protein, Total 5.5 g/dL (6.4-8.2); Sodium Level 146 mmol/L (136-145)
== END | disposition home or self-care (01) ==
PROVIDERS: Family Provider Family Medicine; PCP Family Medicine; Referring Provider Registered Nurse; Visit Provider Registered Nurse
DX: M79.89 Other specified soft tissue disorders (principal); G61.81 Chronic inflammatory demyelinating polyneuritis
CPT/HCPCS: 36415; 80053; 85025; 93971

== ENCOUNTER 2018-10-25 08:51 | Day surgery (SDC) | payer OTHER, MEDICAID, SELFPAY ==
--- NOTE | 2018-10-19 15:34 | HP_ITS ---
Intake Intake Visit Reasons: FU FISTULA INSERT 10/08/18 Allergies latex Allergy (Verified 10/10/18 16:07) Hives Sulfa (Sulfonamide Antibiotics) Allergy (Verified 10/10/18 16:07) Rash codeine Adverse Reaction (Verified 10/10/18 16:07) Other Medications Montelukast [Singulair] 10 mg PO QHS 10/29/13 [History Confirmed 10/10/18] Gabapentin [Neurontin] 300 mg PO QHS 06/14/18 [History Confirmed 10/10/18] Sertraline HCl 125 mg PO DAILY 06/14/18 [History Confirmed 10/10/18] Calcium Carbonate 500 mg PO DAILY 06/20/18 [History Confirmed 10/10/18] Pantoprazole Sodium [Protonix] 20 mg PO DAILY 06/20/18 [History Confirmed 10/10/18] Atorvastatin Calcium [Lipitor] 20 mg PO QHS 07/28/18 [History Confirmed 10/10/18] Carvedilol [Coreg (Beta Shannon)] 25 mg PO BID 07/28/18 [History Confirmed 10/10/18] busPIRone [Buspar] 5 mg PO TID 07/28/18 [History Confirmed 10/10/18] Ferrous Sulfate 325 mg PO TIDCM tab 08/24/18 [Rx Confirmed 10/10/18] Hydrocortisone [Anusol Hc] 25 mg RECTAL BID PRN PRN suppos. 08/24/18 [Rx Confirmed 10/10/18] furosemide 20 mg tablet 20 mg PO DAILY 09/19/18 [History Confirmed 10/10/18] hydralazine 50 mg tablet 50 mg PO TID 09/19/18 [History Confirmed 10/10/18] Insulin Glargine,Hum.rec.anlog [Basaglar Kwikpen U-100] 37 unit SQ DAILY 10/04/18 [History Confirmed 10/10/18] Insulin Lispro [Humalog Kwikpen] 12 unit SQ ACHS 10/04/18 [History Confirmed 10/10/18] Losartan Potassium [Cozaar] 100 mg PO QHS 10/04/18 [History Confirmed 10/10/18] predniSONE tablet 30 mg PO 1200 10/04/18 [History Confirmed 10/10/18] Ondansetron [Zofran Odt] 4 mg PO Q8H PRN PRN #10 tab 10/10/18 [Rx] PFSH Medical History Problem with dialysis access (Acute) 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) Hyperlipidemia (Chronic) Chronic kidney disease (Chronic) HTN (hypertension) (Chronic) Obesity (Chronic) DM2 (diabetes mellitus, type 2) (Chronic) Anemia (Acute) GERD (gastroesophageal reflux disease) (Acute) Surgical History History of cholecystectomy (Acute) History of tubal ligation (Acute) Family History Father Diabetes Mother Heart disease Social History Smoking Status: Never smoker HPI HPI HPI: STACEY WOODSON, is a 58 F who presents to the office today for HPI HPI Surgical H&P: Yes HPI: STACEY WOODSON, is a 58 F who presents to the office today for surgical follow-up status post stage I right upper extremity brachial to cephalic arteriovenous hemodialysis fistula which I created for her on October 08, 2018. We have evidence that on October 18, 2018 she had a venous imaging study of the right extremity because of swelling. No DVT was identified. It is very pertinent note that the patient has chronic inflammatory demyelinating polyneuropathy. She has chronic debility chronic kidney disease obesity and type 2 diabetes mellitus. On her presentation today she is complaining of severe swelling of the right hand forearm and arm. She is complaining of severe pain at the incision site. It is notable that her presentation seems significantly outer port proportion to the typical stage I patient and the procedure itself has been very uncomplicated straightforward a simple direct anastomosis. The fistula itself has a pulse and thrill and bruit Exam Const General: cooperative, other (Uncomfortable. Difficult moving her right upper extremity) Nutritional Appearance: obese Resp Effort & Inspection: normal respiratory effort Auscultation: clear to auscultation bilaterally Cardio Rate: regular rate Rhythm: regular rhythm Neuro General: alert, awake, oriented x3 Extrem Other: Right upper extremity is swollen throughout. The antecubital incision is clean dry and healing well. The fistula has a pulse thrill and bruit. Ultrasound inspection demonstrates that the cephalic vein appears to be well distended. Assessment & Plan Problems 1. Problem with dialysis access, initial encounter T82.169T Plan 58-year-old female. Her presentation status post stage I right extremity brachiocephalic AV fistula creation seems significantly out of proportion to typical. It is not clear to me the etiology to the significant pain and swelling of the right upper extremity. As noted she has had a recent venous imaging study which does not demonstrate deep venous thrombosis. She notes some remote previous indwelling device centrally venously from the right. Not clear what that might have been. I discussed with her at this point the only resolution I would have is to perform a carbon dioxide fistulogram of the right upper extremity looking at her central venous outflow inspecting for the possible site of the central venous outflow issue that could be addressed endovascularly. If a site can be identified then we will try to pursue that at the same setting. If no evidence of central venous obstruction is identified then we may need to simply sacrifice and ligate the fistula. It may be the patient's systemic disease processes chronic steroid use CIDP etc. contributing to this issue. At this point I do not have a clear etiology unless there is central stenosis. The patient is very concerned about pain. She does not feel that she can have this procedure done under the typical local medication with minimal IV sedation. Therefore I will request monitored anesthesia care to be present at the time of the right upper extremity fistulogram. I anticipate accessing closer to the antecubital space antegrade with flow. It is of additional note that the patient has chronic bilateral extremity edema. She did not previously have right upper extremity edema and does not have a left upper extremity edema. We will continue to try to assist. CC: Dr. Jillian Payan M.D., F.A.C.S. Coding Level of Care Code Off vis,est,level 3 Diagnoses Problem with dialysis access, initial encounter T82.898A ??Encounter type: initial encounter Comment Problem with access requiring additional treatment 10/19/18 1534 <Electronically signed by Bairon Payan MD> Date Bairon Payan MD
--- NOTE | 2018-10-25 05:45 | HP.PCM_ITS ---
Problem List (1) Problem with dialysis access Status: Acute Qualifiers: Encounter type: initial encounter History and Physical Date of Admission: 10/25/18 MR#:[id number] Name: STACEY WOODSON Rep #: [id number] : 1960 Provider: Bairon Payan MD Age/Sex: 58/F [place] [facility] [facility] [place] Status: Signed Intake Intake Visit Reasons: FU FISTULA INSERT 10/08/18 Allergies latex Allergy (Verified 10/10/18 16:07) Hives Sulfa (Sulfonamide Antibiotics) Allergy (Verified 10/10/18 16:07) Rash codeine Adverse Reaction (Verified 10/10/18 16:07) Other Medications Montelukast [Singulair] 10 mg PO QHS 10/29/13 [History Confirmed 10/10/18] Gabapentin [Neurontin] 300 mg PO QHS 06/14/18 [History Confirmed 10/10/18] Sertraline HCl 125 mg PO DAILY 06/14/18 [History Confirmed 10/10/18] Calcium Carbonate 500 mg PO DAILY 06/20/18 [History Confirmed 10/10/18] Pantoprazole Sodium [Protonix] 20 mg PO DAILY 06/20/18 [History Confirmed 10/10/18] Atorvastatin Calcium [Lipitor] 20 mg PO QHS 07/28/18 [History Confirmed 10/10/18] Carvedilol [Coreg (Beta Shannon)] 25 mg PO BID 07/28/18 [History Confirmed 10/10/18] busPIRone [Buspar] 5 mg PO TID 07/28/18 [History Confirmed 10/10/18] Ferrous Sulfate 325 mg PO TIDCM tab 08/24/18 [Rx Confirmed 10/10/18] Hydrocortisone [Anusol Hc] 25 mg RECTAL BID PRN PRN suppos. 08/24/18 [Rx Confirmed 10/10/18] furosemide 20 mg tablet 20 mg PO DAILY 09/19/18 [History Confirmed 10/10/18] hydralazine 50 mg tablet 50 mg PO TID 09/19/18 [History Confirmed 10/10/18] Insulin Glargine,Hum.rec.anlog [Diliaaglpartha Balderrama U-100] 37 unit SQ DAILY 10/04/18 [History Confirmed 10/10/18] Insulin Lispro [Humalog Kwikpen] 12 unit SQ ACHS 10/04/18 [History Confirmed 10/10/18] Losartan Potassium [Cozaar] 100 mg PO QHS 10/04/18 [History Confirmed 10/10/18] predniSONE tablet 30 mg PO 1200 10/04/18 [History Confirmed 10/10/18] Ondansetron [Zofran Odt] 4 mg PO Q8H PRN PRN #10 tab 10/10/18 [Rx] PFSH Medical History Problem with dialysis access (Acute) 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) Hyperlipidemia (Chronic) Chronic kidney disease (Chronic) HTN (hypertension) (Chronic) Obesity (Chronic) DM2 (diabetes mellitus, type 2) (Chronic) Anemia (Acute) GERD (gastroesophageal reflux disease) (Acute) Surgical History History of cholecystectomy (Acute) History of tubal ligation (Acute) Family History Father Diabetes Mother Heart disease Social History Smoking Status: Never smoker HPI HPI HPI: STACEY WOODSON, is a 58 F who presents to the office today for HPI HPI Surgical H&P: Yes HPI: STACEY WOODSON, is a 58 F who presents to the office today for surgical follow-up status post stage I right upper extremity brachial to cephalic arteriovenous hemodialysis fistula which I created for her on October 08, 2018. We have evidence that on October 18, 2018 she had a venous imaging study of the right extremity because of swelling. No DVT was identified. It is very pertinent note that the patient has chronic inflammatory demyelinating polyneuropathy. She has chronic debility chronic kidney disease obesity and type 2 diabetes mellitus. On her presentation today she is complaining of severe swelling of the right hand forearm and arm. She is complaining of severe pain at the incision site. It is notable that her presentation seems significantly outer port proportion to the typical stage I patient and the procedure itself has been very uncomplicated straightforward a simple direct anastomosis. The fistula itself has a pulse and thrill and bruit Exam Const General: cooperative, other (Uncomfortable. Difficult moving her right upper extremity) Nutritional Appearance: obese Resp Effort & Inspection: normal respiratory effort Auscultation: clear to auscultation bilaterally Cardio Rate: regular rate Rhythm: regular rhythm Neuro General: alert, awake, oriented x3 Extrem Other: Right upper extremity is swollen throughout. The antecubital incision is clean dry and healing well. The fistula has a pulse thrill and bruit. Ultrasound inspection demonstrates that the cephalic vein appears to be well distended. Assessment & Plan Problems 1. Problem with dialysis access, initial encounter T82.001J Plan 58-year-old female. Her presentation status post stage I right extremity brachiocephalic AV fistula creation seems significantly out of proportion to typical. It is not clear to me the etiology to the significant pain and swelling of the right upper extremity. As noted she has had a recent venous imaging study which does not demonstrate deep venous thrombosis. She notes some remote previous indwelling device centrally venously from the right. Not clear what that might have been. I discussed with her at this point the only resolution I would have is to perform a carbon dioxide fistulogram of the right upper extremity looking at her central venous outflow inspecting for the possible site of the central venous outflow issue that could be addressed endovascularly. If a site can be identified then we will try to pursue that at the same setting. If no evidence of central venous obstruction is identified then we may need to simply sacrifice and ligate the fistula. It may be the patient's systemic disease processes chronic steroid use CIDP etc. contributing to this issue. At this point I do not have a clear etiology unless there is central stenosis. The patient is very concerned about pain. She does not feel that she can have this procedure done under the typical local medication with minimal IV sedation. Therefore I will request monitored anesthesia care to be present at the time of the right upper extremity fistulogram. I anticipate accessing closer to the antecubital space antegrade with flow. It is of additional note that the patient has chronic bilateral extremity edema. She did not previously have right upper extremity edema and does not have a left upper extremity edema. We will continue to try to assist. CC: Dr. Jillian Payan M.D., F.A.C.S. Coding Level of Care Code Off vis,est,level 3 Diagnoses Problem with dialysis access, initial encounter T82.261R ??Encounter type: initial encounter Comment Problem with access requiring additional treatment 10/19/18 1534 <Electronically signed by Bairon Payan MD> Date Bairon Dawn Signature: Date (if applicable) CC: Jillian Lew DO; Param Razo MD ~ I have re-examined the patient. There are no clinical changes since date of exam
[2018-10-25] MEDS: Ipratropium/Albuterol Sulfate 3 ML AMPUL.NEB INHALATION (10:40)
[2018-10-25 10:44] VITALS: PULSE 68; RESP 16; O2SAT 98
--- NOTE | 2018-10-25 11:57 | PCM.OPRPT ---
Problem List (1) Problem with dialysis access Status: Acute Qualifiers: Encounter type: initial encounter Report of Operation Date of Procedure: 10/25/18 Pre-Operative Diagnosis: Right upper extremity swelling Post-Operative Diagnosis: Proximal right subclavian vein stenosis Surgery/Procedure Performed:: Right upper extremity fistulogram with [address] [place] angioplasty Description of Surgical Findings:: Timeout and informed consent was obtained. 58-year-old female was taken to the special procedures lab placed on the table. Because of patient extreme anxiety it was elected to proceed with monitored anesthesia care. The right upper extremity sterilely prepped and draped. Ultrasound was used to identify the cephalic vein close to the antecubital space. Under ultrasound guidance 2% lidocaine was instilled. Micropuncture needle was inserted in antegrade with flow. 6 micropuncture wire inserted 6 Persian short sheath was inserted. Using carbon dioxide 50 g taken of the upper arm and chest area. The patient is morbidly obese. She has obstructive sleep apnea. Getting central images worse not possible with carbon dioxide. I did end up using a total of 12 cc of Isovue contrast. This demonstrated significant central venous congestion felt to be likely secondary to cardiopulmonary issues. There was what appeared to be a clinically significant stenosis of the proximal right subclavian vein. I was able to advance a Glidewire. I placed a 10 x 20 mm or other balloon and performed balloon Ashley plasty up to 20 hayden of pressure. Completion view now demonstrated improvement in the proximal subclavian stenosis. The balloon and sheath were removed and a new suture of 4-0 nylon was placed. Blood loss was minimal. The patient appeared to awaken be responsive without apparent complication The right extremity images demonstrate a widely patent cephalic vein. I did not attempt carbon dioxide retrograde injection. Clinically there was high pressure inflow from the arterial anastomosis. The issue at hand was upper extremity swelling. The cephalic vein appeared to be normal throughout its course. There appeared there did appear to be clinically significant stenosis of the proximal right subclavian vein. That seemed to be notably improved status post angioplasty. Impression successfully treated right upper extremity fistulogram and treatment of proximal subclavian stenosis. Patient will be clinically observed regarding her right upper extremity swelling Bairon Payan M.D., F.A.C.S. Type of Anesthesia:: Local MAC
== END 2018-10-25 14:40 | disposition skilled nursing facility (03) ==
LOC: CLSP 08:53
PROVIDERS: Family Provider Family Medicine; PCP Family Medicine; Referring Provider Surgery; Visit Provider Surgery
DX: T82.858A Stenosis of other vascular prosthetic devices, implants and grafts, initial encounter (principal); E11.22 Type 2 diabetes mellitus with diabetic chronic kidney disease; I12.9 Hypertensive chronic kidney disease with stage 1 through stage 4 chronic kidney disease, or unspecified chronic kidney disease; N18.9 Chronic kidney disease, unspecified; G61.81 Chronic inflammatory demyelinating polyneuritis; K21.9 Gastro-esophageal reflux disease without esophagitis; E66.9 Obesity, unspecified; D64.9 Anemia, unspecified; E78.5 Hyperlipidemia, unspecified; Z79.4 Long term (current) use of insulin; Z79.899 Other long term (current) drug therapy
CPT/HCPCS: 36902; 76937; 94640; Q9967; C1725; C1769; J2405

== ENCOUNTER 2018-10-27 23:28 | Inpatient (IN) | payer OTHER, MEDICAID, SELFPAY ==
[2018-10-27 23:31] VITALS: BP 129/76; PULSE 78; RESP 15; TEMP 37.1; O2SAT 89; BMI 49.8
[2018-10-27 23:34] VITALS: BP 129/76; PULSE 78; RESP 18; TEMP 37.1; O2SAT 92
[2018-10-27 23:35] VITALS: BP 129/76; PULSE 81; RESP 17; TEMP 37.1; O2SAT 92
[2018-10-27 23:36] VITALS: O2SAT 92
--- NOTE | 2018-10-27 23:54 | RAD_ITS ---
STUDY: X-RAY CHEST REASON FOR EXAM: Female, 58 years old. Pneumonia. Edema. TECHNIQUE: 1 view COMPARISON: None. FINDINGS: There is cardiomegaly. The chest is left rotated to the right. There is no pneumonia or failure and no pleural effusions. Mild central vascular congestion. Normal visualized thoracic spine. Normal visualized ribs, clavicles, and shoulders. There is no demonstrated abnormality of the visualized soft tissue structures of the upper abdomen. RAD/Chest 1 View (Portable) IMPRESSION: Cardiomegaly with mild vascular congestion. No pneumonia. No pleural effusions. Electronically Signed: Yuan Worthy MD at 0:32 EDT Tel , Service support ,
[2018-10-28] VITALS (16 sets, daily range): BP systolic 110–137; BP diastolic 40–87; PULSE 65–84; RESP 14–22; TEMP 36.7–37.2; O2SAT 92–98; BMI 47.2; BMI 47.3
[2018-10-28 00:09] LABS: Absolute Lymphocyte Count 1.04 X10^3/ul (0.83-4.51); Absolute Neutrophil Count 5.1 X10^3/uL (2.0-7.7); Basophil# 0.02 X10^3/uL; Basophil% 0.3 % (0-1); Eosinophil# 0.14 X10^3/uL; Hematocrit 27.9 % (37-47); Hemoglobin 8.9 g/dl (12.0-15.0); Lymphocyte # 1.04 X10^3/ul (4.0); Lymphocyte % 14.7 % (19-41); Mean Corp Hgb Conc 31.9 g/gl (32-36); Mean Corpuscular Hgb 27.8 pg (27.0-32.0); Mean Corpuscular Volume 87.2 fL (81-99); Mean Platelet Vol. 10.6 fl (6.2-12.0); Monocyte# 0.81 X10^3/uL; Monocyte% 11.4 % (0-10); Neutrophil # 5.05 X10^3/uL (2.7-7.7); Neutrophil % 71.2 % (47-70); Platelet Count 152 K/mm3 (150-450); RBC Distribution Width CV 14.2 % (11.6-14.6); RBC Distribution Width SD 45.2 fl (35.1-43.9); White Blood Count 7.1 K/mm3 (4.4-11.0)
[2018-10-28 00:15] LABS: Anion Gap 7 (5-15); BUN 93 mg/dL (7-18); BUN/Creat Ratio 28.1 RATIO (10-20); Calcium,Total 7.7 mg/dL (8.5-10.1); Chloride 108 mmol/L (98-107); Creatinine, Serum 3.31 mg/dL (0.55-1.02); EST Glomerular Filtration Rate 15 mL/min (>60); Est Glom Filt Rate - Afr Amer 19 mL/min (>60); Glucose 100 mg/dL (74-106); Potassium 4.2 mmol/L (3.5-5.1); Sodium Level 140 mmol/L (136-145)
[2018-10-28 00:17] LABS: POSITIVE COUNT NO; POSITIVE DIFFERENTIAL NO; POSITIVE MORPHOLOGY NO
--- NOTE | 2018-10-28 01:06 | PCM.HP.STD ---
Problem List (1) Pneumonia Status: Acute Qualifiers: Pneumonia type: due to unspecified organism Laterality: unspecified laterality Lung location: unspecified part of lung Qualified Code(s): J18.9 - Pneumonia, unspecified organism (2) NOEL (acute kidney injury) Status: Acute (3) Morbid obesity Status: Chronic (4) CIDP (chronic inflammatory demyelinating polyneuropathy) Status: Chronic (5) Hyperlipidemia Status: Chronic Qualifiers: Hyperlipidemia type: unspecified Qualified Code(s): E78.5 - Hyperlipidemia, unspecified (6) HTN (hypertension) Status: Chronic Qualifiers: Hypertension type: essential hypertension Qualified Code(s): I10 - Essential (primary) hypertension (7) DM2 (diabetes mellitus, type 2) Status: Chronic Qualifiers: Diabetes mellitus halfway insulin use: with bed bug exterminator use Diabetes mellitus complication status: with kidney complications Diabetes mellitus complication detail: with chronic kidney disease Chronic kidney disease stage: stage 4 (severe) Qualified Code(s): E11.22 - Type 2 diabetes mellitus with diabetic chronic kidney disease; N18.4 - Chronic kidney disease, stage 4 (severe); Z79.4 - intermediate accountant (current) use of insulin (8) Chronic diastolic CHF (congestive heart failure) Status: Chronic History of Present Illness Date of Admission: 10/28/18 Chief Complaint: Dyspnea, fatigue, fever. The patient is a 58 y/o F w/ PMHx: Chronic Diastolic CHF, HTN, HLD, Morbid Obesity, AOCD, GERD, Chronic Inflammatory Demyelinating Polyneuropathy, Diabetes mellitus type II, CKD stage IV who presents to the [facility] ED on 10/28/18 with history of being sent from her SNF secondary to complaint of dyspnea as well as fever x 24 hours with SNF CXR notable for ? R hilar infiltrate as well as worsened renal function labs. Patient does note that following her fistulogram the prior she had onset of upper respiratory symptoms including congestion, rhinorrhea, alteration in her voice and onset of cough, mildly productive with then worsening mild dyspnea. She does state also that she has had mildly worsened bilateral lower extremity edema and states that her weight has gone up but she cannot give amount. In the ED work-up included T 90.8, heart rate 78, BP 129/76, respiratory rate 15, initially 89% on room air with follow-up 94% on 2 L nasal cannula, CBC with WBC 7.1, heme globin 8.9, platelet 152 without market shift, BMP with chloride 108, BUN/creatinine 93/3.31, lactic acid 1.0, CXR with ? cardiomegaly with mild vascular congestion; however, from review with ED rales only on the R side, presentation more concerning for possible PNA, Bld Cx x 2. In the ED patient administered Vanc and Zosyn. Past Medical History Past Medical History (Chronic Problems): Chronic Problems (Last Updated 09/19/18 @ 07:24 by Rema Ocampo) Morbid obesity (Chronic) Chronic diastolic CHF (congestive heart failure) (Chronic) 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) Hyperlipidemia (Chronic) Chronic kidney disease (Chronic) HTN (hypertension) (Chronic) Obesity (Chronic) DM2 (diabetes mellitus, type 2) (Chronic) Medical History: Medical History (Last Updated 09/19/18 @ 07:24 by Rema Ocampo) Problem with dialysis access (Acute) T82.898A 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) G61.81 Hyperlipidemia (Chronic) E78.5 Chronic kidney disease (Chronic) N18.9 HTN (hypertension) (Chronic) I10 Obesity (Chronic) E66.9 DM2 (diabetes mellitus, type 2) (Chronic) E11.9 Anemia D64.9 GERD (gastroesophageal reflux disease) K21.9 Allergies latex Allergy (Verified 10/27/18 23:45) Hives Sulfa (Sulfonamide Antibiotics) Allergy (Verified 10/27/18 23:45) Rash codeine Adverse Reaction (Verified 10/27/18 23:45) Other CONFUSION Home Medications: Ambulatory Orders Medication Instructions Recorded Montelukast [Singulair] 10 mg PO QHS 10/29/13 Gabapentin [Neurontin] 300 mg PO QHS 06/14/18 Sertraline HCl 125 mg PO DAILY 06/14/18 Calcium Carbonate 500 mg PO DAILY 06/20/18 Pantoprazole Sodium [Protonix] 20 mg PO DAILY 06/20/18 Atorvastatin Calcium [Lipitor] 20 mg PO QHS 07/28/18 Carvedilol [Coreg (Beta Shannon)] 25 mg PO BID 07/28/18 busPIRone [Buspar] 5 mg PO TID 07/28/18 Ferrous Sulfate 325 mg PO TIDCM tab 08/24/18 Hydrocortisone [Anusol Hc] 25 mg RECTAL BID PRN PRN suppos. 08/24/18 furosemide 20 mg tablet 20 mg PO DAILY 09/19/18 hydralazine 50 mg tablet 50 mg PO TID 09/19/18 Insulin Glargine,Hum.rec.anlog 37 unit SQ DAILY 10/04/18 [Basaglar Kwikpen U-100] Insulin Lispro [Humalog Kwikpen] 12 unit SQ ACHS 10/04/18 Losartan Potassium [Cozaar] 100 mg PO QHS 10/04/18 predniSONE tablet 30 mg PO 1200 10/04/18 Ondansetron [Zofran Odt] 4 mg PO Q8H PRN PRN #10 tablet 10/10/18 Surgical History: Surgical History (Last Updated 09/19/18 @ 07:24 by Rema Ocampo) History of cholecystectomy Z90.49 History of tubal ligation Z98.51 Surgical History: cholecystectomy, - - Tubal ligation Psychiatric History: Anxiety, Depression TAPPER HAND History: No pertinent TAPPER HAND history Lives: Senior Living Smoking Status: Never smoker Tobacco Use: Non-smoker Alcohol: None Drugs: None - *Family History Maternal Family History: Family History (Last Updated 09/19/18 @ 07:27 by Rema Ocampo) Father Diabetes Mother Heart disease History Items: Cancer, Heart Disease Paternal Family History: Family History (Last Updated 09/19/18 @ 07:27 by Rema Ocampo) Father Diabetes Mother Heart disease History Items: Diabetes, Heart Disease, Hypertension Sibling Family History: Family History (Last Updated 09/19/18 @ 07:27 by Rema Ocampo) Father Diabetes Mother Heart disease History Items: Diabetes Review of Systems Constitutional: Reports: Anorexia, Malaise, Weakness, Fatigue. Denies: Chills, Fever, Weight Change HEENT: Denies: Head Aches, Sinus Congestion, Sinus Drainage Cardiovascular: Reports: Edema. Denies: Chest Pain, Palpitations Respiratory: Reports: Cough, Shortness of Breath, Shortness of breath at rest, Shortness of breath upon exertion, Sputum production. Denies: Wheezing Gastrointestinal: Denies: Abdominal Pain, Nausea, Vomiting Genitourinary: Denies: Dysuria Musculoskeletal: Reports: Back Pain. Denies: Joint Pain, Joint Tenderness Skin: Reports: Skin Changes. Denies: Rash, Wounds Neurological: Denies: Numbness, Tingling, Focal weakness Psychiatric: Reports: Anxiety, Depression. Denies: Homicidal Ideations, Suicidal Ideations Hematologic/ Lymphatic: Reports: Anemia. Denies: Easy Bruising, Easy Bleeding VTE Information - Inpt Only VTE Present on Admission: No VTE Mechan Device Prophylaxis: SCD's VTE Pharm Prophylaxis ordered?: Yes Patient Problems: Active and Suspected Problems (Last Updated 09/19/18 @ 07:24 by Rema Ocampo) Pneumonia (Acute) NOEL (acute kidney injury) (Acute) Subjective: Seated upright in the ED bed, fatigued and ill-appearing, coughing when entering room. Objective: Physical Examination: General: awake, alert, oriented x 3 and cooperative, seated upright in the ED bed, fatigued and ill-appearing. Skin: normal color, turgor, no icterus, cyanosis except bilateral lower extremity chronic venous stasis skin changes. HEENT: AT/NC, EOMI, PERRLA, mildly dry MM, no carotid bruits or JVD noted; however, habitus makes examination difficult. Lungs: Diminished breath sounds throughout, greater bases, coarse diffusely, coughing with examination with increased effort, no wheezings, minimal rales. Heart: regular rate and rhythm; no gallop, rub audible. Abdomen: soft, morbidly obese, NTTP, ND, normal BS, no HSM; however, habitus makes examination difficult. Extremities: no cyanosis, clubbing, bilateral lower extremity pedal to mid leung 2+ pitting edema. Neurological: patient awake, alert, oriented x 3; cognitive function intact; pupils equally reactive to light and accomodation; cranial nerves II-XII grossly normal, moving all 4 extremities, no focal deficits, strength severely global decrease secondary to acute presentation. Psychiatric: affect appears fatigued, ill-appearing, no acute evidence of depressive or anxiety feelings. - Physical Exam Vital Signs Temp Pulse Resp BP Pulse Ox 98.9 F 80 17 117/55 L 94 10/28/18 00:39 10/28/18 00:39 10/28/18 00:39 10/28/18 00:39 10/28/18 00:39 Oxygen Flow Rate (L/min) 2 Oxygen Delivery Method Nasal Cannula Weight: 281 lb 12.012 oz Body Mass Index (BMI) 49.8 Laboratory Tests Past 24 Hrs 05/11/19 05/11/19 05/11/19 23:40 23:40 23:40 WBC 7.1 RBC 3.20 L Hgb 8.9 L Hct 27.9 L MCV 87.2 MCH 27.8 MCHC 31.9 L RDW 14.2 RDW Differential 45.2 H Plt Count 152 MPV 10.6 Immature Gran % (Auto) 0.400 Neut % (Auto) 71.2 H Lymph % (Auto) 14.7 L Coryell % (Auto) 11.4 H Eos % (Auto) 2.0 Baso % (Auto) 0.3 Absolute Neuts (auto) 5.1 Absolute Lymphs (auto) 1.04 Total Counted Not Reportable Sodium 140 Potassium 4.2 Chloride 108 H Carbon Dioxide 25.0 Anion Gap 7 BUN 93 H Creatinine 3.31 H Estim Creat Clear Calc 15.70 Est GFR (MDRD) Af Amer 19 L Est GFR (MDRD) Non-Af 15 L BUN/Creatinine Ratio 28.1 H Glucose 100 Lactic Acid 1.0 Calcium 7.7 L Assessment/Plan All Active Problems (Last Updated 09/19/18 @ 07:24 by Rema Ocampo) Pneumonia (Acute) NOEL (acute kidney injury) (Acute) Problem with dialysis access (Acute) Debility (Acute) The patient is a 58 y/o F w/ PMHx: Chronic Diastolic CHF, HTN, HLD, Morbid Obesity, AOCD, GERD, Chronic Inflammatory Demyelinating Polyneuropathy, Diabetes mellitus type II, CKD stage IV who presents to the [facility] ED on 10/28/18 with history of being sent from her SNF secondary to complaint of dyspnea as well as fever x 24 hours with SNF CXR notable for ? R hilar infiltrate as well as worsened renal function labs. (1) Suspected ? HCAP Pneumonia: ED work-up included T 90.8, heart rate 78, BP 129/76, respiratory rate 15, initially 89% on room air with follow-up 94% on 2 L nasal cannula, CBC with WBC 7.1, heme globin 8.9, platelet 152 without market shift, BMP with chloride 108, BUN/creatinine 93/3.31, lactic acid 1.0, CXR with ? cardiomegaly with mild vascular congestion; however, from review in ED, patient w/ rales only on the R side, presentation more concerning for possible PNA, Bld Cx x 2. Will admit to [facility], maintain on oxygen with wean as tolerated to room air, continue ATC duonebs, PRN albuterol, maintained on IV Zosyn and Vancomycin w/ pending MRSA screen and if unremarkable de-escalate, HOB, IS parameters w/ pending sputum cultures and urine antigens. Bld cx x 2 obtained in the ED. (2) Acute kidney injury on CKD stage IV: Recent AVF intervention per Dr. Payan secondary to extremity edema, worsening function noted since 08/2018. Admission BUN/Cr 93/3.31, prior baseline creatinine noted to be 2.55 but prior to this as noted had been 1.8-1.9 08/2018. Will gently hydrate, hold nephrotoxic medications and repeat chemistry in AM. Will request FeNa assessment. Will consult patient Pier Master. (3) Chronic Diastolic CHF: CXR w/ ? congestion; however, rales only R sided, outside CXR w/ R hilar infiltrate, presentation more consistent with PNA currently but will closely monitor given gentle hydration intention as noted, maintain on aspirin, statin, Coreg, holding lisinopril, holding losartan. Given patient noted weight gain will closely monitor weights daily, place snug Robin wraps with elevation as does have decent bilateral lower extremity edema. (4) Hypertension: Continue home regimen including Coreg, hydralazine, holding losartan and Lasix given NOEL, PRN hydralazine. (5) Hyperlipidemia: Continue home statin regimen. (6) AOCD: Admission Hgb 8.9, baseline prior noted 8-9, stable, trend. (7) Morbid Obesity: Weight loss and lifestyle changes encouraged, nutrition consulted. (8) Anxiety and Depression: Continue home sertraline and BuSpar regimen. (9) Chronic steroid dependency w/ Chronic Inflammatory Demyelinating Polyneuropathy: We will continue home steroid regimen, if necessary may initiate stress dosing, history of prior plasmapheresis. (10) Diabetes mellitus type II: Hold oral home regimen, continue home insulin regimen, ADA diet, accu checks w/ ISS. (11) GERD: PPI. (12) DVT prophylaxis: SCDs, heparin. Code Visit Inpatient E&M: [id number] Init Hosp L3
--- NOTE | 2018-10-28 01:18 | HP.PCM_ITS ---
Problem List (1) Pneumonia Status: Acute Qualifiers: Pneumonia type: due to unspecified organism Laterality: unspecified laterality Lung location: unspecified part of lung Qualified Code(s): J18.9 - Pneumonia, unspecified organism (2) NOEL (acute kidney injury) Status: Acute (3) Morbid obesity Status: Chronic (4) CIDP (chronic inflammatory demyelinating polyneuropathy) Status: Chronic (5) Hyperlipidemia Status: Chronic Qualifiers: Hyperlipidemia type: unspecified Qualified Code(s): E78.5 - Hyperlipidemia, unspecified (6) HTN (hypertension) Status: Chronic Qualifiers: Hypertension type: essential hypertension Qualified Code(s): I10 - Essential (primary) hypertension (7) DM2 (diabetes mellitus, type 2) Status: Chronic Qualifiers: Diabetes mellitus retirement insulin use: with watermaster use Diabetes mellitus complication status: with kidney complications Diabetes mellitus complication detail: with chronic kidney disease Chronic kidney disease stage: stage 4 (severe) Qualified Code(s): E11.22 - Type 2 diabetes mellitus with diabetic chronic kidney disease; N18.4 - Chronic kidney disease, stage 4 (sev ere); Z79.4 - watermaster (current) use of insulin (8) Chronic diastolic CHF (congestive heart failure) Status: Chronic History of Present Illness Date of Admission: 10/28/18 Chief Complaint: Dyspnea, fatigue, fever. The patient is a 58 y/o F w/ PMHx: Chronic Diastolic CHF, HTN, HLD, Morbid Obesity, AOCD, GERD, Chronic Inflammatory Demyelinating Polyneuropathy, Diabetes mellitus type II, CKD stage IV who presents to the [facility] ED on 10/28/18 with history of being sent from her SNF secondary to complaint of dyspnea as well as fever x 24 hours with SNF CXR notable for ? R hilar infiltrate as well as worsened renal function labs. Patient does note that following her fistulogram the prior she had onset of upper respiratory symptoms including congestion, rhinorrhea, alteration in her voice and onset of cough, mildly productive with then worsening mild dyspnea. She does state also that she has had mildly worsened bilateral lower extremity edema and states that her weight has gone up but she cannot give amount. In the ED work-up included T 90.8, heart rate 78, BP 129/76, respiratory rate 15, initially 89% on room air with follow-up 94% on 2 L nasal cannula, CBC with WBC 7.1, heme globin 8.9, platelet 152 without market shift, BMP with chloride 108, BUN/creatinine 93/3.31, lactic acid 1.0, CXR with ? cardiomegaly with mild vascular congestion; however, from review with ED rales only on the R side, presentation more concerning for possible PNA, Bld Cx x 2. In the ED patient administered Vanc and Zosyn. Past Medical History Past Medical History (Chronic Problems): Chronic Problems (Last Updated 09/19/18 @ 07:24 by Rema Ocampo) Morbid obesity (Chronic) Chronic diastolic CHF (congestive heart failure) (Chronic) 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) Hyperlipidemia (Chronic) Chronic kidney disease (Chronic) HTN (hypertension) (Chronic) Obesity (Chronic) DM2 (diabetes mellitus, type 2) (Chronic) Medical History: Medical History (Last Updated 09/19/18 @ 07:24 by Rema Ocampo) Problem with dialysis access (Acute) T82.898A 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) G61.81 Hyperlipidemia (Chronic) E78.5 Chronic kidney disease (Chronic) N18.9 HTN (hypertension) (Chronic) I10 Obesity (Chronic) E66.9 DM2 (diabetes mellitus, type 2) (Chronic) E11.9 Anemia D64.9 GERD (gastroesophageal reflux disease) K21.9 Allergies latex Allergy (Verified 10/27/18 23:45) Hives Sulfa (Sulfonamide Antibiotics) Allergy (Verified 10/27/18 23:45) Rash codeine Adverse Reaction (Verified 10/27/18 23:45) Other CONFUSION Home Medications: Ambulatory Orders Medication Instructions Recorded Montelukast [Singulair] 10 mg PO QHS 10/29/13 Gabapentin [Neurontin] 300 mg PO QHS 06/14/18 Sertraline HCl 125 mg PO DAILY 06/14/18 Calcium Carbonate 500 mg PO DAILY 06/20/18 Pantoprazole Sodium [Protonix] 20 mg PO DAILY 06/20/18 Atorvastatin Calcium [Lipitor] 20 mg PO QHS 07/28/18 Carvedilol [Coreg (Beta [place])] 25 mg PO BID 07/28/18 busPIRone [Buspar] 5 mg PO TID 07/28/18 Ferrous Sulfate 325 mg PO TIDCM tab 08/24/18 Hydrocortisone [Anusol Hc] 25 mg RECTAL BID PRN PRN suppos. 08/24/18 furosemide 20 mg tablet 20 mg PO DAILY 09/19/18 hydralazine 50 mg tablet 50 mg PO TID 09/19/18 Insulin Glargine,Hum.rec.anlog 37 unit SQ DAILY 10/04/18 [Basaglar Kwikpen U-100] Insulin Lispro [Humalog Kwikpen] 12 unit SQ ACHS 10/04/18 Losartan Potassium [Cozaar] 100 mg PO QHS 10/04/18 predniSONE tablet 30 mg PO 1200 10/04/18 Ondansetron [Zofran Odt] 4 mg PO Q8H PRN PRN #10 tablet 10/10/18 Surgical History: Surgical History (Last Updated 09/19/18 @ 07:24 by Rema Ocampo) History of cholecystectomy Z90.49 History of tubal ligation Z98.51 Surgical History: cholecystectomy, - - Tubal ligation Psychiatric History: Anxiety, Depression FIELD CHECKER History: No pertinent FIELD CHECKER history [facility]: [facility] Smoking Status: Never smoker Tobacco Use: Non-smoker Alcohol: None Drugs: None - *Family History Maternal Family History: Family History (Last Updated 09/19/18 @ 07:27 by Rema Ocampo) Father Diabetes Mother Heart disease History Items: Cancer, Heart Disease Paternal Family History: Family History (Last Updated 09/19/18 @ 07:27 by Rema Ocampo) Father Diabetes Mother Heart disease History Items: Diabetes, Heart Disease, Hypertension Sibling Family History: Family History (Last Updated 09/19/18 @ 07:27 by Rema Ocampo) Father Diabetes Mother Heart disease History Items: Diabetes Review of Systems Constitutional: Reports: Anorexia, Malaise, Weakness, Fatigue. Denies: Chills, Fever, Weight Change HEENT: Denies: Head Aches, Sinus Congestion, Sinus Drainage Cardiovascular: Reports: Edema. Denies: Chest Pain, Palpitations Respiratory: Reports: Cough, Shortness of Breath, Shortness of breath at rest, Shortness of breath upon exertion, Sputum production. Denies: Wheezing Gastrointestinal: Denies: Abdominal Pain, Nausea, Vomiting Genitourinary: Denies: Dysuria Musculoskeletal: Reports: Back Pain. Denies: Joint Pain, Joint Tenderness Skin: Reports: Skin Changes. Denies: Rash, Wounds Neurological: Denies: Numbness, Tingling, Focal weakness Psychiatric: Reports: Anxiety, Depression. Denies: Homicidal Ideations, [place] icidal Ideations Hematologic/ Lymphatic: Reports: Anemia. Denies: Easy Bruising, Easy Bleeding VTE Information - Inpt Only VTE Present on Admission: No VTE Mechan Device Prophylaxis: SCD's VTE Pharm Prophylaxis ordered?: Yes Patient Problems: Active and Suspected Problems (Last Updated 09/19/18 @ 07:24 by Rema Ocampo) Pneumonia (Acute) NOEL (acute kidney injury) (Acute) Subjective: Seated upright in the ED bed, fatigued and ill-appearing, coughing when entering room. Objective: Physical Examination: General: awake, alert, oriented x 3 and cooperative, seated upright in the ED bed, fatigued and ill-appearing. Skin: normal color, turgor, no icterus, cyanosis except bilateral lower extremity chronic venous stasis skin changes. HEENT: AT/NC, EOMI, PERRLA, mildly dry MM, no carotid bruits or JVD noted; however, habitus makes examination difficult. Lungs: Diminished breath sounds throughout, greater bases, coarse diffusely, coughing with examination with increased effort, no wheezings, minimal rales. Heart: regular rate and rhythm; no gallop, rub audible. Abdomen: soft, morbidly obese, NTTP, ND, normal BS, no HSM; however, habitus makes examination difficult. Extremities: no cyanosis, clubbing, bilateral lower extremity pedal to mid leung 2+ pitting edema. Neurological: patient awake, alert, oriented x 3; cognitive function intact; pupils equally reactive to light and accomodation; cranial nerves II-XII grossly normal, moving all 4 extremities, no focal deficits, strength severely global decrease secondary to acute presentation. Psychiatric: affect appears fatigued, ill-appearing, no acute evidence of depressive or anxiety feelings. - Physical Exam Vital Signs Temp Pulse Resp BP Pulse Ox 98.9 F 80 17 117/55 L 94 10/28/18 00:39 10/28/18 00:39 10/28/18 00:39 10/28/18 00:39 10/28/18 00:39 Oxygen Flow Rate (L/min) 2 Oxygen Delivery Method Nasal Cannula Weight: 281 lb 12.012 oz Body Mass Index (BMI) 49.8 Laboratory Tests Past 24 Hrs 10/27/18 10/27/18 10/27/18 23:40 23:40 23:40 WBC 7.1 RBC 3.20 L Hgb 8.9 L Hct 27.9 L MCV 87.2 MCH 27.8 MCHC 31.9 L RDW 14.2 RDW Differential 45.2 H Plt Count 152 MPV 10.6 Immature Gran % (Auto) 0.400 Neut % (Auto) 71.2 H Lymph % (Auto) 14.7 L [place] % (Auto) 11.4 H Eos % (Auto) 2.0 Baso % (Auto) 0.3 Absolute Neuts (auto) 5.1 Absolute Lymphs (auto) 1.04 Total Counted Not Reportable Sodium 140 Potassium 4.2 Chloride 108 H Carbon Dioxide 25.0 Anion Gap 7 BUN 93 H Creatinine 3.31 H Estim Creat Clear Calc 15.70 Est GFR (MDRD) Af Amer 19 L Est GFR (MDRD) Non-Af 15 L BUN/Creatinine Ratio 28.1 H Glucose 100 Lactic Acid 1.0 Calcium 7.7 L Assessment/Plan All Active Problems (Last Updated 09/19/18 @ 07:24 by Rema Ocampo) Pneumonia (Acute) NOEL (acute kidney injury) (Acute) Problem with dialysis access (Acute) Debility (Acute) The patient is a 58 y/o F w/ PMHx: Chronic Diastolic CHF, HTN, HLD, Morbid Obesity, AOCD, GERD, Chronic Inflammatory Demyelinating Polyneuropathy, Diabetes mellitus type II, CKD stage IV who presents to the [facility] ED on 10/28/18 with history of being sent from her SNF secondary to complaint of dyspnea as well as fever x 24 hours with SNF CXR notable for ? R hilar infiltrate as well as worsened renal function labs. (1) Suspected ? HCAP Pneumonia: ED work-up included T 90.8, heart rate 78, BP 129/76, respiratory rate 15, initially 89% on room air with follow-up 94% on 2 L nasal cannula, CBC with WBC 7.1, heme globin 8.9, platelet 152 without market shift, BMP with chloride 108, BUN/creatinine 93/3.31, lactic acid 1.0, CXR with ? cardiomegaly with mild vascular congestion; however, from review in ED, patient w/ rales only on the R side, presentation more concerning for possible PNA, Bld Cx x 2. Will admit to [facility], maintain on oxygen with wean as tolerated to room air, continue ATC duonebs, PRN albuterol, maintained on IV Zosyn and Vancomycin w/ pending MRSA screen and if unremarkable de-escalate, HOB, IS parameters w/ pending sputum cultures and urine antigens. Bld cx x 2 obtained in the ED. (2) Acute kidney injury on CKD stage IV: Recent AVF intervention per Dr. Payan secondary to extremity edema, worsening function noted since 08/2018. Admission BUN/Cr 93/3.31, prior baseline creatinine noted to be 2.55 but prior to this as noted had been 1.8-1.9 08/2018. Will gently hydrate, hold nephrotoxic medications and repeat chemistry in AM. Will request FeNa assessment. Will consult patient Sanitation Associate. (3) Chronic Diastolic CHF: CXR w/ ? congestion; however, rales only R sided, outside CXR w/ R hilar infiltrate, presentation more consistent with PNA currently but will closely monitor given gentle hydration intention as noted, maintain on aspirin, statin, Coreg, holding lisinopril, holding losartan. Given patient noted weight gain will closely monitor weights daily, place snug Robin wraps with elevation as does have decent bilateral lower extremity edema. (4) Hypertension: Continue home regimen including Coreg, hydralazine, holding losartan and Lasix given NOEL, PRN hydralazine. (5) Hyperlipidemia: Continue home statin regimen. (6) AOCD: Admission Hgb 8.9, baseline prior noted 8-9, stable, trend. (7) Morbid Obesity: Weight loss and lifestyle changes encouraged, nutrition consulted. (8) Anxiety and Depression: Continue home sertraline and BuSpar regimen. (9) Chronic steroid dependency w/ Chronic Inflammatory Demyelinating Polyneuropathy: We will continue home steroid regimen, if necessary may initiate stress dosing, history of prior plasmapheresis. (10) Diabetes mellitus type II: Hold oral home regimen, continue home insulin regimen, ADA diet, accu checks w/ ISS. (11) GERD: PPI. (12) DVT prophylaxis: SCDs, heparin. Code Visit Inpatient E&M: 40338 Init Hosp L3
--- NOTE | 2018-10-28 01:37 | ED.RN ---
valarie chávez notified patient is being admitted at this time
--- NOTE | 2018-10-28 03:27 | NURSING ---
PT BLADDER SCANNED FOR 387, PT HAS NO SENSATION TO VOID
[2018-10-28] MEDS: guaiFENesin 1,200 MG Tablet 1200 MG PO ×3 (03:36→21:25)
[2018-10-28] MEDS: 0.9% Normal Saline 1,000 ML 100 ML IV (03:54)
[2018-10-28 04:00] LABS: M R Staph aureus DNA By PCR Negative (Negative); Probe Check PASS; Specimen Processing Control PASS
--- NOTE | 2018-10-28 04:26 | NURSING ---
pt was calling out help. had dozed off to sleep the woke choking, pt having a difficult time coughing the thick phlegm up and was unable to catch her breath, finally she did cough up a large mucous plug. Resp in the room giving a breathing treatment after. o2 on at 2lnc. 97%
--- NOTE | 2018-10-28 04:30 | NURSING ---
notified of the bladder scan, ordered to straight cath
--- NOTE | 2018-10-28 05:20 | ED.DCSUM_ITS ---
- ER Visit Summary Date of Service: 10/28/18 Chief Complaint: Abnormal chest x-ray History of Present Illness: The patient is a 58 F who presents due to abnormal labs and abnormal chest x-ray. She is from a nursing facility. She became short of breath today with cough and fever this morning. She had labs and a chest x-ray. Her BUN and creatinine is increased from prior labs and chest x- ray showed a hilar infiltrate on the right. She does complain of some generalized malaise. Her cough is productive. Physical Examination: Afebrile pulse ox 92% on 2 L vitals otherwise normal No distress resting comfortably Moist mucous membranes Heart regular rate and rhythm Patient does have rales and rhonchi on the right the left side is relatively clear on my initial exam Abdomen soft Alert Test Results: Labs notable for BUN of 93, creatinine 3.3. Potassium normal. Lactic acid normal. Blood cultures were sent. Chest x-ray read as cardiomegaly and mild vascular congestion no pneumonia no effusions. Emergency Department Course and Treatment: Work-up as above. Although chest x- ray here is read as mild vascular congestion without pneumonia earlier x-ray was read as a right-sided infiltrate and this is wearing her rales. Given fever and productive cough and concern for healthcare associated pneumonia. Patient was treated with IV Zosyn and vancomycin discussed with the hospitalist and admitted. Treatment Plan: [] Disposition: Admit Impression: Healthcare associated pneumonia Acute kidney injury on chronic kidney disease This note was generated with [employer] dictation software. It may contain incorrect words, spelling, and punctuation that were not noted in review of the chart prior to signing ED Disposition - Plan for ED Patient: Disposition: Acute Care [facility]
--- NOTE | 2018-10-28 05:37 | PCM.RX.CS ---
Consult Pharmacy has been consulted to manage selected antiobiotic: Vancomycin Type of Consult: New start Suspected Infection: Pneumonia Prior Doses of Antibiotics Received/Current Regimen: Medications Piperacillin Sod/Tazobactam (Sod 3.375 gm/ Sodium Chloride) 50 mls @ 12.5 mls/hr IV Q12 SHAHANA Discontinued Medications Piperacillin Sod/Tazobactam (Sod 4.5 gm/ Sodium Chloride) 100 mls @ 200 mls/hr IV X1 ONE Stop: 10/28/18 00:24 Last Admin: 10/28/18 00:30 Dose: 200 mls/hr Labs: Sodium 140 mmol/L (136-145) 10/27/18 23:40 Potassium 4.2 mmol/L (3.5-5.1) 10/27/18 23:40 Chloride 108 mmol/L (98-107) H 10/27/18 23:40 Carbon Dioxide 25.0 mmol/L (21.0-32.0) 10/27/18 23:40 Anion Gap 7 (5-15) 10/27/18 23:40 BUN 93 mg/dL (7-18) H 10/27/18 23:40 Creatinine 3.31 mg/dL (0.55-1.02) H 10/27/18 23:40 Est GFR (MDRD) Af Amer 19 mL/min (>60) L 10/27/18 23:40 Est GFR (MDRD) Non-Af 15 mL/min (>60) L 10/27/18 23:40 BUN/Creatinine Ratio 28.1 RATIO (10-20) H 10/27/18 23:40 Glucose 100 mg/dL (74-106) 10/27/18 23:40 Weight used for dosin kg Estimated Creatinine Clearance: 23.92 Goal Trough: 10-15 mcg/mL Pharmacy Plan for Drug Dosing: Pharmacy Service will continue to monitor and adjust dosing as required. Medications Vancomycin HCl 2,000 mg/ (Sodium Chloride) 540 mls @ 250 mls/hr IV Q48H SHAHANA Discontinued Medications Vancomycin HCl 2,000 mg/ (Sodium Chloride) 540 mls @ 250 mls/hr IV X1 ONE Stop: 10/28/18 01:54 Last Admin: 10/28/18 01:25 Dose: 250 mls/hr Follow-Up Labs: Trough Vancomycin Labs to be done on [date and time ordered]: 11/01 @ 0136
--- NOTE | 2018-10-28 05:55 | RAD_ITS ---
STUDY: X-RAY CHEST REASON FOR EXAM: Female, 58 years old. Shortness of breath and dyspnea. TECHNIQUE: PA and lateral views of the chest. COMPARISON: 10/27/2018. FINDINGS: There is extensive infiltrate in the right mid and lower lung zones. The left lung is essentially clear. There is no demonstrated pleural abnormality. The cardiac silhouette is mildly enlarged. Normal mediastinum and adam. Normal visualized pulmonary arteries. Normal visualized aortic arch and descending thoracic aorta. The thoracic spine is obscured by the mediastinum. Normal visualized ribs, clavicles, and shoulders. There is no demonstrated abnormality of the visualized soft tissue structures of the upper abdomen. RAD/Chest PA and Lateral IMPRESSION: Right lung infiltrates likely due to pneumonia. Electronically Signed: Romero Harris MD at 11:37 EDT Tel , Service support ,
[2018-10-28] MEDS: busPIRone 5 MG Tablet PO ×3 (06:20→21:23)
[2018-10-28] MEDS: hydrALAZINE 50 MG Tablet PO ×3 (06:46→21:24)
[2018-10-28 06:52] LABS: Urine Sodium 32 mmol/L (Not Establ.)
--- NOTE | 2018-10-28 07:15 | NURSING ---
BS 69. Pt without symptoms of hypoglycemia. Pt given juice. Breakfast ordered.
[2018-10-28] MEDS: Ipratropium/Albuterol Sulfate 3 ML AMPUL.NEB INHALATION ×3 (07:30→19:03)
[2018-10-28 07:36] LABS: Bedside Glucose 69 mg/dL (70-110)
--- NOTE | 2018-10-28 07:48 | NURSING ---
BS recheck- 69. Pt without symptoms of hypoglycemia. Pt given crackers.
[2018-10-28 07:51] LABS: Bedside Glucose 69 mg/dL (70-110)
[2018-10-28] MEDS: 0.9% NaCl Peripheral Flush Adult/Peds IV (09:31)
[2018-10-28] MEDS: Furosemide 20 MG/2 ML VIAL IV ×2 (09:32→17:01)
[2018-10-28] MEDS: Heparin Injection (Vial) 5,000 UNIT/ML VIAL 5000 UNIT SC ×2 (09:32→21:24)
[2018-10-28] MEDS: Pantoprazole Sodium 20 MG Tablet PO (09:32)
[2018-10-28] MEDS: Menthol/Lanolin/Calamine/Znox 113 GM Tube 1 APPLIC TOPICAL ×4 (09:33→21:23)
[2018-10-28] MEDS: Nystatin Powder 15gm Bottle 1 APPLIC TOPICAL ×2 (09:33→21:25)
[2018-10-28] MEDS: Insulin Lispro 100 UNIT/ML INSULN.PEN 12 UNIT SC ×3 (09:34→17:01)
[2018-10-28] MEDS: Sertraline 100 MG Tablet 125 MG PO (09:36)
[2018-10-28] MEDS: Calcium (Elemental) 500 MG Tablet PO (09:37)
[2018-10-28] MEDS: Carvedilol 25 MG Tablet PO ×2 (09:37→21:24)
[2018-10-28] MEDS: Ferrous Sulfate 325 MG Tablet PO ×3 (09:37→17:03)
--- NOTE | 2018-10-28 10:21 | PCM.PN.HOSP ---
Patient Problems: Active and Suspected Problems (Last Updated 09/19/18 @ 07:24 by Rema Ocampo) Pneumonia (Acute) NOEL (acute kidney injury) (Acute) Subjective: States that she has been developing edema prior to recent fistula in right upper extremity. Swelling increased significantly afterwards in LE and particularly in RUE. Low-grade temp at the facility. Coughing, but non-productive. Vitals/I&O's: Vital Signs Temp Pulse Resp BP Pulse Ox 36.7 C 76 20 H 110/60 98 10/28/18 09:17 10/28/18 09:17 10/28/18 09:17 10/28/18 09:17 10/28/18 09:17 Oxygen Flow Rate (L/min) 3 Oxygen Delivery Method Nasal Cannula Weight: 121 kg Body Mass Index (BMI) 47.2 Intake and Output for Last 24 Hours 10/26/18 10/27/18 10/28/18 23:59 23:59 23:59 Intake Total 791 / 791 Balance 791 / 791 General: Alert, No apparent distress HEENT: Atraumatic, Normocephalic Oral: Moist Mucosa, No Gingival or Mucosal Lesions/ Ulcerations Neck: No Nodes, Thyroid Normal Size and Texture, JVD, Right Lungs: Clear to auscultation, Normal air movement, No rhonchi, No wheeze Cardiovascular: Regular rate, Regular Rhythm, Normal S1, Normal S2, No murmurs Abdomen: Bowel Sounds Present, Soft, Non Tender, Non-Distended, Obese Extremities: Edema - especially in RUE. Skin: No rashes, No breakdown Musculoskeletal: No Tenderness to Palpation of Joints or Extremities, No Muscle Wasting Neurological: Muscle tone normal, Sensory exam intact to light touch and pain Psych/Mental Status: Normal Affect, Appropriate Microbiology Past 72 Hours 10/28/18 06:30 Urine Catheter - Catheter Streptococcus pneumoniae Antigen (M - Final 10/28/18 06:30 Urine Catheter - Catheter Legionella Antigen - Final Laboratory Results 10/27/18 23:40: WBC 7.1, RBC 3.20 L, Hgb 8.9 L, Hct 27.9 L, MCV 87.2, MCH 27.8, MCHC 31.9 L, RDW 14.2, RDW Differential 45.2 H, Plt Count 152, MPV 10.6, Immature Gran % (Auto) 0.400, Neut % (Auto) 71.2 H, Lymph % (Auto) 14.7 L, [place] % (Auto) 11.4 H, Eos % (Auto) 2.0, Baso % (Auto) 0.3, Absolute Neuts (auto) 5.1, Absolute Lymphs (auto) 1.04, Total Counted Not Reportable 10/27/18 23:40: Sodium 140, Potassium 4.2, Chloride 108 H, Carbon Dioxide 25.0, Anion Gap 7, BUN 93 H, Creatinine 3.31 H, Estim Creat Clear Calc 15.70, Est GFR (MDRD) Af Amer 19 L, Est GFR (MDRD) Non-Af 15 L, BUN/Creatinine Ratio 28.1 H, Glucose 100, Calcium 7.7 L 10/27/18 23:40: Lactic Acid 1.0 10/28/18 02:40: MRSA (PCR) Negative 10/28/18 06:30: Urine Creatinine 67.30 10/28/18 06:30: Ur Random Sodium 32 10/28/18 07:12: POC Glucose 69 L 10/28/18 07:46: POC Glucose 69 L Current Medications Acetaminophen (Tylenol) 650 mg PO Q6H PRN PRN PRN Reason: Non-cardiac pain (mod-severe) Hydrocodone Bitart/Acetaminophen ([place] 5mg-325mg) 1 - 2 tablet PO Q6H PRN PRN PRN Reason: MOD-SEVERE PAIN (4-10/10) Al Hydroxide/Mg Hydroxide (Mylanta Ii) 15 - 30 ml PO Q4H PRN PRN PRN Reason: INDIGESTION Albuterol Sulfate (Ventolin Aerosols) 2.5 mg INHALATION Q2H PRN PRN PRN Reason: dyspnea, wheezing Albuterol/Ipratropium (Duoneb) 3 ml INHALATION Q6HWA.RT SHAHANA Last Admin: 10/28/18 07:30 Dose: 3 ml Atorvastatin Calcium (Lipitor) 20 mg PO QHS SHAHANA Buspirone HCl (Buspar) 5 mg PO TID SHAHANA Last Admin: 10/28/18 06:20 Dose: 5 mg Calamine/Phenol (Calmoseptine Ointment) 1 applic TOPICAL 4X/DAY SHAHANA; Protocol Last Admin: 10/28/18 09:33 Dose: 1 applicatio Calcium Carbonate (Os-Chinedu 500) 500 mg PO DAILYCM [facility] Last Admin: 10/28/18 09:37 Dose: 500 mg Carvedilol (Coreg) 25 mg PO BID [facility] Last Admin: 10/28/18 09:37 Dose: 25 mg Dextrose (D50w Syringe) 0 gm IV X1 PRN; Protocol PRN Reason: Hypoglycemia Ferrous Sulfate (Ferrous Sulfate) 325 mg PO TIDCM [facility] Last Admin: 10/28/18 09:37 Dose: 325 mg Furosemide (Lasix) 20 mg IV BID@1000,1800 [facility] Last Admin: 10/28/18 09:32 Dose: 20 mg Gabapentin (Neurontin) 300 mg PO QHS [facility] Glucagon () 1 mg IM .X1 PRN PRN Reason: Hypoglycemia Guaifenesin (Mucinex) 1,200 mg PO BID [facility] Last Admin: 10/28/18 09:36 Dose: 1,200 mg Heparin Sodium (Porcine) (Heparin Na) 5,000 unit SC Q12 [facility] Last Admin: 10/28/18 09:32 Dose: 5,000 unit Hydralazine HCl (Apresoline Iv) 10 mg IV Q4H PRN PRN PRN Reason: SBP > 160 Hydralazine HCl (Apresoline) 50 mg PO TID [facility] Last Admin: 10/28/18 06:46 Dose: 50 mg Hydrocortisone Acetate (Anusol Hc) 25 mg RECTAL BID PRN PRN PRN Reason: Hemorrhoids Piperacillin Sod/Tazobactam (Sod 3.375 gm/ Sodium Chloride) 50 mls @ 12.5 mls/hr IV Q12 [facility] Last Admin: 10/28/18 09:33 Dose: 12.5 mls/hr Insulin Glargine (Lantus (Bkc)) 37 units SC DAILY [facility] Last Admin: 10/28/18 09:35 Dose: 37 units Insulin Human Lispro (Humalog Kwikpen (Bkc)) 0 unit SQ ACHS [facility]; Protocol Last Admin: 10/28/18 07:14 Dose: Not Given Insulin Human Lispro (Humalog Kwikpen (Bkc)) 12 unit SC ACHS [facility] Last Admin: 10/28/18 09:34 Dose: 12 units Melatonin (Melatonin) 3 mg PO QHS PRN PRN PRN Reason: INSOMNIA Montelukast Sodium (Singulair) 10 mg PO QHS [facility] Nitroglycerin (Nitrostat) 0.4 mg SUBLINGUAL Q5M PRN PRN Reason: CARDIAC/CHEST PAIN Nystatin (Mycostatin Powder) 1 applic TOPICAL TID [facility]; Protocol Last Admin: 10/28/18 09:33 Dose: 1 applicatio Ondansetron HCl (Zofran) 4 mg IV Q8H PRN PRN PRN Reason: NAUSEA/VOMITING Pantoprazole Sodium (Protonix) 20 mg PO DAILY [facility] Last Admin: 10/28/18 09:32 Dose: 20 mg Prednisone () 30 mg PO 1200 SHAHANA Sertraline HCl (Zoloft) 125 mg PO DAILY [facility] Last Admin: 10/28/18 09:36 Dose: 125 mg Sodium Chloride () 5 - 15 ml IV UD PRN PRN Reason: SALINE FLUSH Last Admin: 10/28/18 09:31 Dose: 10 ml Medical Necessity - Tobacco Use Smoking Status: Never smoker Tobacco Use: Non-smoker Assessment/Plan All Active Problems (Last Updated 09/19/18 @ 07:24 by Rema Ocampo) Pneumonia (Acute) NOEL (acute kidney injury) (Acute) Problem with dialysis access (Acute) Debility (Acute) 1. Acute HFpEF EF 65% on 08/07/18 complicated by CKD, which may be worsening weight on 10/25 was 112 kg, now 121. Clinically volume overloaded Will start IV Lasix 2. NOEL FENa 1.12% monitor closely no more IVF nephrology on consult Fistula placed 10/08. Required fistulagram on 10/25. If HD needed, may need dialysis catheter. 3. Possible gram negative pneumonia aka, HCAP doubtful will continue with empiric abx for now, but if cultures are negative, then may DC abx in next 24-48h 4. CIDP continue prednisone follow up with neurology as outpt 5. DM2 fair control continue Lantus and log 6. VTE prophylaxis: SQ heparin. Code Visit Inpatient E&M: 91543 Subs Hosp L3
--- NOTE | 2018-10-28 10:25 | PN_ITS ---
Patient Problems: Active and Suspected Problems (Last Updated 09/19/18 @ 07:24 by Rema Ocampo) Pneumonia (Acute) NOEL (acute kidney injury) (Acute) Subjective: States that she has been developing edema prior to recent fistula in right upper extremity. Swelling increased significantly afterwards in LE and particularly in RUE. Low-grade temp at the facility. Coughing, but non-productive. Vitals/I&O's: Vital Signs Temp Pulse Resp BP Pulse Ox 36.7 C 76 20 H 110/60 98 10/28/18 09:17 10/28/18 09:17 10/28/18 09:17 10/28/18 09:17 10/28/18 09:17 Oxygen Flow Rate (L/min) 3 Oxygen Delivery Method Nasal Cannula Weight: 121 kg Body Mass Index (BMI) 47.2 Intake and Output for Last 24 Hours 10/26/18 10/27/18 10/28/18 23:59 23:59 23:59 Intake Total 791 / 791 Balance 791 / 791 General: Alert, No apparent distress HEENT: Atraumatic, Normocephalic Oral: Moist Mucosa, No Gingival or Mucosal Lesions/ Ulcerations Neck: No Nodes, Thyroid Normal Size and Texture, JVD, Right Lungs: Clear to auscultation, Normal air movement, No rhonchi, No wheeze Cardiovascular: Regular rate, Regular Rhythm, Normal S1, Normal S2, No murmurs Abdomen: Bowel Sounds Present, Soft, Non Tender, Non-Distended, Obese Extremities: Edema - especially in RUE. Skin: No rashes, No breakdown Musculoskeletal: No Tenderness to Palpation of Joints or Extremities, No Muscle Wasting Neurological: Muscle tone normal, Sensory exam intact to light touch and pain Psych/Mental Status: Normal Affect, Appropriate Microbiology Past 72 Hours 10/28/18 06:30 Urine Catheter - Catheter Streptococcus pneumoniae Antigen (M - Final 10/28/18 06:30 Urine Catheter - Catheter Legionella Antigen - Final Laboratory Results 10/27/18 23:40: WBC 7.1, RBC 3.20 L, Hgb 8.9 L, Hct 27.9 L, MCV 87.2, MCH 27.8, MCHC 31.9 L, RDW 14.2, RDW Differential 45.2 H, Plt Count 152, MPV 10.6, Immature Gran % (Auto) 0.400, Neut % (Auto) 71.2 H, Lymph % (Auto) 14.7 L, [place] % (Auto) 11.4 H, Eos % (Auto) 2.0, Baso % (Auto) 0.3, Absolute Neuts (auto) 5.1, Absolute Lymphs (auto) 1.04, Total Counted Not Reportable 10/27/18 23:40: Sodium 140, Potassium 4.2, Chloride 108 H, Carbon Dioxide 25.0, Anion Gap 7, BUN 93 H, Creatinine 3.31 H, Estim Creat Clear Calc 15.70, Est GFR (MDRD) Af Amer 19 L, Est GFR (MDRD) Non-Af 15 L, BUN/Creatinine Ratio 28.1 H, Glucose 100, Calcium 7.7 L 10/27/18 23:40: Lactic Acid 1.0 10/28/18 02:40: MRSA (PCR) Negative 10/28/18 06:30: Urine Creatinine 67.30 10/28/18 06:30: Ur Random Sodium 32 10/28/18 07:12: POC Glucose 69 L 10/28/18 07:46: POC Glucose 69 L Current Medications Acetaminophen (Tylenol) 650 mg PO Q6H PRN PRN PRN Reason: Non-cardiac pain (mod-severe) Hydrocodone Bitart/Acetaminophen ([place] 5mg-325mg) 1 - 2 tablet PO Q6H PRN PRN PRN Reason: MOD-SEVERE PAIN (4-10/10) Al Hydroxide/Mg Hydroxide (Mylanta Ii) 15 - 30 ml PO Q4H PRN PRN PRN Reason: INDIGESTION Albuterol Sulfate (Ventolin Aerosols) 2.5 mg INHALATION Q2H PRN PRN PRN Reason: dyspnea, wheezing Albuterol/Ipratropium (Duoneb) 3 ml INHALATION Q6HWA.RT [facility] Last Admin: 10/28/18 07:30 Dose: 3 ml Atorvastatin Calcium (Lipitor) 20 mg PO QHS [facility] Buspirone HCl (Buspar) 5 mg PO TID [facility] Last Admin: 10/28/18 06:20 Dose: 5 mg Calamine/Phenol (Calmoseptine Ointment) 1 applic TOPICAL 4X/DAY [facility]; Protocol Last Admin: 10/28/18 09:33 Dose: 1 applicatio Calcium Carbonate (Os-Chinedu 500) 500 mg PO DAILYCM [facility] Last Admin: 10/28/18 09:37 Dose: 500 mg Carvedilol (Coreg) 25 mg PO BID [facility] Last Admin: 10/28/18 09:37 Dose: 25 mg Dextrose (D50w Syringe) 0 gm IV X1 PRN; Protocol PRN Reason: Hypoglycemia Ferrous Sulfate (Ferrous Sulfate) 325 mg PO TIDCM [facility] Last Admin: 10/28/18 09:37 Dose: 325 mg Furosemide (Lasix) 20 mg IV BID@1000,1800 [facility] Last Admin: 10/28/18 09:32 Dose: 20 mg Gabapentin (Neurontin) 300 mg PO QHS [facility] Glucagon () 1 mg IM .X1 PRN PRN Reason: Hypoglycemia Guaifenesin (Mucinex) 1,200 mg PO BID [facility] Last Admin: 10/28/18 09:36 Dose: 1,200 mg Heparin Sodium (Porcine) (Heparin Na) 5,000 unit SC Q12 [facility] Last Admin: 10/28/18 09:32 Dose: 5,000 unit Hydralazine HCl (Apresoline Iv) 10 mg IV Q4H PRN PRN PRN Reason: SBP > 160 Hydralazine HCl (Apresoline) 50 mg PO TID [facility] Last Admin: 10/28/18 06:46 Dose: 50 mg Hydrocortisone Acetate (Anusol Hc) 25 mg RECTAL BID PRN PRN PRN Reason: Hemorrhoids Piperacillin Sod/Tazobactam (Sod 3.375 gm/ Sodium Chloride) 50 mls @ 12.5 mls/hr IV Q12 [facility] Last Admin: 10/28/18 09:33 Dose: 12.5 mls/hr Insulin Glargine (Lantus (Bkc)) 37 units SC DAILY [facility] Last Admin: 10/28/18 09:35 Dose: 37 units Insulin Human Lispro (Humalog Kwikpen (Bkc)) 0 unit SQ ACHS [facility]; Protocol Last Admin: 10/28/18 07:14 Dose: Not Given Insulin Human Lispro (Humalog Kwikpen (Bkc)) 12 unit SC ACHS [facility] Last Admin: 10/28/18 09:34 Dose: 12 units Melatonin (Melatonin) 3 mg PO QHS PRN PRN PRN Reason: INSOMNIA Montelukast Sodium (Singulair) 10 mg PO QHS [facility] Nitroglycerin (Nitrostat) 0.4 mg SUBLINGUAL Q5M PRN PRN Reason: CARDIAC/CHEST PAIN Nystatin (Mycostatin Powder) 1 applic TOPICAL TID [facility]; Protocol Last Admin: 10/28/18 09:33 Dose: 1 applicatio Ondansetron HCl (Zofran) 4 mg IV Q8H PRN PRN PRN Reason: NAUSEA/VOMITING Pantoprazole Sodium (Protonix) 20 mg PO DAILY [facility] Last Admin: 10/28/18 09:32 Dose: 20 mg Prednisone () 30 mg PO 1200 [facility] Sertraline HCl (Zoloft) 125 mg PO DAILY [facility] Last Admin: 10/28/18 09:36 Dose: 125 mg Sodium Chloride () 5 - 15 ml IV UD PRN PRN Reason: SALINE FLUSH Last Admin: 10/28/18 09:31 Dose: 10 ml Medical Necessity - Tobacco Use Smoking Status: Never smoker Tobacco Use: Non-smoker Assessment/Plan All Active Problems (Last Updated 09/19/18 @ 07:24 by Rema Ocampo) Pneumonia (Acute) NOEL (acute kidney injury) (Acute) Problem with dialysis access (Acute) Debility (Acute) 1. Acute HFpEF * EF 65% on 08/07/18 * complicated by CKD, which may be worsening * weight on 10/25 was 112 kg, now 121. Clinically volume overloaded * Will start IV Lasix 2. NOEL * FENa 1.12% * monitor closely * no more IVF * nephrology on consult * Fistula placed 10/08. Required fistulagram on 10/25. * If HD needed, may need dialysis catheter. 3. Possible gram negative pneumonia * aka, HCAP * doubtful * will continue with empiric abx for now, but if cultures are negative, then may DC abx in next 24-48h 4. CIDP * continue prednisone * follow up with neurology as outpt 5. DM2 * fair control * continue Lantus and log 6. VTE prophylaxis: SQ heparin. Code Visit Inpatient E&M: 09626 Subs Hosp L3
[2018-10-28] MEDS: predniSONE 10 MG Tablet 30 MG PO (11:58)
[2018-10-28 12:00] LABS: Bedside Glucose 114 mg/dL (70-110)
[2018-10-28 16:45] LABS: Bedside Glucose 92 mg/dL (70-110)
[2018-10-28] MEDS: Atorvastatin Calcium 20 MG Tablet PO (21:24)
[2018-10-28] MEDS: Montelukast 10 MG Tablet PO (21:25)
[2018-10-28] MEDS: Gabapentin 300 MG Capsule PO (21:26)
[2018-10-28 22:11] LABS: Bedside Glucose 100 mg/dL (70-110)
[2018-10-29] VITALS (12 sets, daily range): BP systolic 131–146; BP diastolic 58–69; PULSE 57–88; RESP 12–22; TEMP 36.4–36.8; O2SAT 95–99
[2018-10-29 06:15] LABS: Anion Gap 10 (5-15); BUN 97 mg/dL (7-18); BUN/Creat Ratio 28.5 RATIO (10-20); Calcium,Total 7.7 mg/dL (8.5-10.1); Chloride 109 mmol/L (98-107); EST Glomerular Filtration Rate 15 mL/min (>60); Est Glom Filt Rate - Afr Amer 18 mL/min (>60); Estimated Creatinine Clearance 15.28 ml/min; Glucose 120 mg/dL (74-106); Potassium 4.3 mmol/L (3.5-5.1); Sodium Level 141 mmol/L (136-145)
[2018-10-29] MEDS: hydrALAZINE 50 MG Tablet PO ×3 (06:28→22:41)
[2018-10-29] MEDS: busPIRone 5 MG Tablet PO ×3 (06:29→22:41)
[2018-10-29] MEDS: Nystatin Powder 15gm Bottle 1 APPLIC TOPICAL ×3 (06:29→22:44)
[2018-10-29] MEDS: Ipratropium/Albuterol Sulfate 3 ML AMPUL.NEB INHALATION ×3 (06:37→18:39)
[2018-10-29 06:42] LABS: Absolute Lymphocyte Count 0.48 X10^3/ul (0.83-4.51); Absolute Neutrophil Count 3.3 X10^3/uL (2.0-7.7); Hemoglobin 8.1 g/dl (12.0-15.0); Lymphocyte # 0.48 X10^3/ul (4.0); Lymphocyte % 11.6 % (19-41); Mean Corp Hgb Conc 31.2 g/gl (32-36); Mean Corpuscular Hgb 27.5 pg (27.0-32.0); Mean Corpuscular Volume 88.1 fL (81-99); Mean Platelet Vol. 11.2 fl (6.2-12.0); Monocyte# 0.28 X10^3/uL; Monocyte% 6.8 % (0-10); Neutrophil # 3.34 X10^3/uL (2.7-7.7); Neutrophil % 80.9 % (47-70); Platelet Count 140 K/mm3 (150-450); RBC Distribution Width CV 13.7 % (11.6-14.6); RBC Distribution Width SD 41.9 fl (35.1-43.9); Red Blood Count 2.95 M/mm3 (4.2-5.4); White Blood Count 4.1 K/mm3 (4.4-11.0)
[2018-10-29 06:46] LABS: Bedside Glucose 117 mg/dL (70-110)
[2018-10-29 06:46] LABS: Differential Indicated SCAN CRITERIA MET; POSITIVE COUNT NO; POSITIVE DIFFERENTIAL YES; POSITIVE MORPHOLOGY NO
[2018-10-29 06:53] LABS: Differential Comment SCANNED
[2018-10-29] MEDS: Ferrous Sulfate 325 MG Tablet PO ×3 (08:56→17:22)
[2018-10-29] MEDS: Calcium (Elemental) 500 MG Tablet PO (08:57)
[2018-10-29] MEDS: Menthol/Lanolin/Calamine/Znox 113 GM Tube 1 APPLIC TOPICAL ×4 (08:57→22:44)
[2018-10-29] MEDS: Carvedilol 25 MG Tablet PO ×2 (08:57→22:42)
[2018-10-29] MEDS: Heparin Injection (Vial) 5,000 UNIT/ML VIAL 5000 UNIT SC ×2 (08:58→22:44)
[2018-10-29] MEDS: Furosemide 20 MG/2 ML VIAL IV ×2 (08:59→17:23)
[2018-10-29] MEDS: Sertraline 100 MG Tablet 125 MG PO (09:00)
[2018-10-29] MEDS: guaiFENesin 1,200 MG Tablet 1200 MG PO ×2 (09:03→22:43)
[2018-10-29] MEDS: Pantoprazole Sodium 20 MG Tablet PO (09:03)
[2018-10-29] MEDS: 0.9% NaCl Peripheral Flush Adult/Peds IV (09:05)
--- NOTE | 2018-10-29 09:31 | PCM.CONS.R ---
Consultation - Renal 10/29/18 PCP/ Referring MD: Requesting physician: [] Primary care physician: Marcela Kerr MD Reason for Consultation:: CKD stage 4-5 - History of Present Illness History of Present Illness: The patient is a 58 year old F with CKD stage 4-5 admitted 10/28/18 for increased shortness of breath with cough, fluid retention. She called 911 from [facility]. She was started on iv lasix and diuresing well but remains fluid overloaded. She has underlying DMN with CRCL 18cc/min in Jun 2018. Creatinine baseline in mid 2's now at 3.5. She is on prednisone for CIDP, failed plasmapheresis therapy. She was bladder scanned for PVR, urinary retention that was unremarkable. She has decrease appetite without nausea, vomiting. She remains debilitated from CIDP, was in rehab at [facility] then subsequently sent to [facility], now at [facility] per pt request. She had an AVF placed on 10/08 with swelling, underwent fistulogram with angioplasty of subclavian v stenosis. Arm still remains swollen but AVF with thrill and bruit. - Allergies Allergies: Allergies latex Allergy (Verified 10/27/18 23:45) Hives Sulfa (Sulfonamide Antibiotics) Allergy (Verified 10/27/18 23:45) Rash codeine Adverse Reaction (Verified 10/27/18 23:45) Other CONFUSION - Current Medications Current Medications: Current Medications Acetaminophen (Tylenol) 650 mg PO Q6H PRN PRN PRN Reason: Non-cardiac pain (mod-severe) Hydrocodone Bitart/Acetaminophen ([place] 5mg-325mg) 1 - 2 tablet PO Q6H PRN PRN PRN Reason: MOD-SEVERE PAIN (4-10) Al Hydroxide/Mg Hydroxide (Mylanta Ii) 15 - 30 ml PO Q4H PRN PRN PRN Reason: INDIGESTION Albuterol Sulfate (Ventolin Aerosols) 2.5 mg INHALATION Q2H PRN PRN PRN Reason: dyspnea, wheezing Albuterol/Ipratropium (Duoneb) 3 ml INHALATION Q6HWA.RT [facility]HA[facility] Last Admin: 10/29/18 06:37 Dose: 3 ml Atorvastatin Calcium (Lipitor) 20 mg PO QHS [facility] Last Admin: 10/28/18 21:24 Dose: 20 mg Buspirone HCl (Buspar) 5 mg PO TID [facility] Last Admin: 10/29/18 06:29 Dose: 5 mg Calamine/Phenol (Calmoseptine Ointment) 1 applic TOPICAL 4X/DAY [facility]; Protocol Last Admin: 10/29/18 08:57 Dose: 1 applicatio Calcium Carbonate (Os-Chinedu 500) 500 mg PO DAILYCM [facility] Last Admin: 10/29/18 08:57 Dose: 500 mg Carvedilol (Coreg) 25 mg PO BID [facility] Last Admin: 10/29/18 08:57 Dose: 25 mg Dextrose (D50w Syringe) 0 gm IV X1 PRN; Protocol PRN Reason: Hypoglycemia Ferrous Sulfate (Ferrous Sulfate) 325 mg PO TIDCM [facility] Last Admin: 10/29/18 08:56 Dose: 325 mg Furosemide (Lasix) 20 mg IV BID@1000,1800 [facility] Last Admin: 10/29/18 08:59 Dose: 20 mg Gabapentin (Neurontin) 300 mg PO QHS [facility] Last Admin: 10/28/18 21:26 Dose: 300 mg Glucagon () 1 mg IM .X1 PRN PRN Reason: Hypoglycemia Guaifenesin (Mucinex) 1,200 mg PO BID [facility] Last Admin: 10/29/18 09:03 Dose: 1,200 mg Heparin Sodium (Porcine) (Heparin Na) 5,000 unit SC Q12 [facility] Last Admin: 10/29/18 08:58 Dose: 5,000 unit Hydralazine HCl (Apresoline Iv) 10 mg IV Q4H PRN PRN PRN Reason: SBP > 160 Hydralazine HCl (Apresoline) 50 mg PO TID [facility] Last Admin: 10/29/18 06:28 Dose: 50 mg Hydrocortisone Acetate (Anusol Hc) 25 mg RECTAL BID PRN PRN PRN Reason: Hemorrhoids Piperacillin Sod/Tazobactam (Sod 3.375 gm/ Sodium Chloride) 50 mls @ 12.5 mls/hr IV Q12 [facility] Last Admin: 10/29/18 09:04 Dose: 12.5 mls/hr Insulin Glargine (Lantus (Bkc)) 37 units SC DAILY [facility] Last Admin: 10/29/18 08:58 Dose: 37 units Insulin Human Lispro (Humalog Kwikpen (Bkc)) 0 unit SQ ACHS [facility]; Protocol Last Admin: 10/29/18 06:34 Dose: Not Given Melatonin (Melatonin) 3 mg PO QHS PRN PRN PRN Reason: INSOMNIA Montelukast Sodium (Singulair) 10 mg PO QHS [facility] Last Admin: 10/28/18 21:25 Dose: 10 mg Nitroglycerin (Nitrostat) 0.4 mg SUBLINGUAL Q5M PRN PRN Reason: CARDIAC/CHEST PAIN Nystatin (Mycostatin Powder) 1 applic TOPICAL TID [facility]; Protocol Last Admin: 10/29/18 06:29 Dose: 1 applicatio Ondansetron HCl (Zofran) 4 mg IV Q8H PRN PRN PRN Reason: NAUSEA/VOMITING Pantoprazole Sodium (Protonix) 20 mg PO DAILY [facility] Last Admin: 10/29/18 09:03 Dose: 20 mg Prednisone () 30 mg PO 1200 [facility] Last Admin: 10/28/18 11:58 Dose: 30 mg Sertraline HCl (Zoloft) 125 mg PO DAILY [facility] Last Admin: 10/29/18 09:00 Dose: 125 mg Sodium Chloride () 5 - 15 ml IV UD PRN PRN Reason: SALINE FLUSH Last Admin: 10/29/18 09:05 Dose: 10 ml - Past Medical History Past Medical History (Chronic Problems): Chronic Problems (Last Updated 09/19/18 @ 07:24 by Rema Ocampo) Morbid obesity (Chronic) Chronic diastolic CHF (congestive heart failure) (Chronic) 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) Hyperlipidemia (Chronic) Chronic kidney disease (Chronic) HTN (hypertension) (Chronic) Obesity (Chronic) DM2 (diabetes mellitus, type 2) (Chronic) - Past Surgical History Surgical History: cholecystectomy, - - Tubal ligation - Social History Smoking Status: Never smoker Alcohol: None Drugs: None - Family History Maternal Family History: Family History (Last Updated 09/19/18 @ 07:27 by Rema Ocampo) Father Diabetes Mother Heart disease History Items: Cancer, Heart Disease Paternal Family History: Family History (Last Updated 09/19/18 @ 07:27 by Rema Ocampo) Father Diabetes Mother Heart disease History Items: Diabetes, Heart Disease, Hypertension Sibling Family History: Family History (Last Updated 09/19/18 @ 07:27 by Rema Ocampo) Father Diabetes Mother Heart disease History Items: Diabetes Review of Systems Constitutional: Reports: Anorexia, Malaise, Weakness, Fatigue. Denies: Chills, Fever Eyes: Denies: Vision Change HEENT: Denies: Sore Throat Cardiovascular: Reports: Edema, Orthopnea. Denies: Chest Pain Respiratory: Reports: Cough, Shortness of Breath, Shortness of breath at rest Gastrointestinal: Reports: Nausea. Denies: Abdominal Pain, Dyspepsia, Vomiting Genitourinary: Denies: Dysuria Musculoskeletal: Reports: - - leg swelling Neurological: Reports: Balance problems, - - CIDP paraplegic. Denies: Tremor, Seizures Psychiatric: Reports: Anxiety, Depression Hematologic/ Lymphatic: Reports: Anemia. Denies: Hx of blood clot Patient Problems: Active and Suspected Problems (Last Updated 09/19/18 @ 07:24 by Rema Ocampo) ESRD (end stage renal disease) (Acute) Pneumonia (Acute) NOEL (acute kidney injury) (Acute) - Physical Exam General: Alert, Oriented x3, Cooperative, No apparent distress HEENT: PERRLA, EOMI Oral: Moist Mucosa Neck: Supple Lungs: Rhonchi Cardiovascular: Regular rate Abdomen: Bowel Sounds Present, Soft, Non Tender, Non-Distended, Obese Extremities: Edema - anasarca Musculoskeletal: - - 2/5 BLE weakness Neurological: - - CIDP failed plasmapheresis, prednisone Psych/Mental Status: Normal Affect, Alert and oriented to time, place, person, mood and affect Vital Signs Temp Pulse Resp BP Pulse Ox 97.6 F L 57 L 22 H 141/69 H 97 10/29/18 03:12 10/29/18 06:37 10/29/18 06:37 10/29/18 03:12 10/29/18 06:37 Oxygen Flow Rate (L/min) 2 Oxygen Delivery Method Nasal Cannula Weight: 122.3 kg Body Mass Index (BMI) 47.2 Intake and Output for Last 24 Hours 10/27/18 10/28/18 10/29/18 23:59 23:59 23:59 Intake Total 1346 / 1346 589 / 589 Output Total 1200 / 1200 Balance 1346 / 1346 -611 / -611 Microbiology Past 72 Hours 10/28/18 02:47 Gram Stain - Final Sputum, Expectorated/Coughed 10/28/18 06:30 Streptococcus pneumoniae Antigen (M - Final Urine Catheter - Catheter 10/28/18 06:30 Legionella Antigen - Final Urine Catheter - Catheter Laboratory Tests Past 24 Hrs 10/29/18 10/29/18 05:20 05:20 WBC 4.1 L RBC 2.95 L Hgb 8.1 L Hct 26.0 L MCV 88.1 MCH 27.5 MCHC 31.2 L RDW 13.7 RDW Differential 41.9 Plt Count 140 L MPV 11.2 Immature Gran % (Auto) 0.700 Neut % (Auto) 80.9 H Lymph % (Auto) 11.6 L [place] % (Auto) 6.8 Eos % (Auto) 0.0 Baso % (Auto) 0.0 Absolute Neuts (auto) 3.3 Absolute Lymphs (auto) 0.48 L Total Counted Not Reportable Differential Comment SCANNED Sodium 141 Potassium 4.3 Chloride 109 H Carbon Dioxide 22.0 Anion Gap 10 BUN 97 H Creatinine 3.40 H Estim Creat Clear Calc 15.28 Est GFR (MDRD) Af Amer 18 L Est GFR (MDRD) Non-Af 15 L BUN/Creatinine Ratio 28.5 H Glucose 120 H Calcium 7.7 L POC Glucose 10/29/18 10/28/18 10/28/18 06:33 21:35 16:22 POC Glucose 117 H 100 92 10/28/18 11:54 POC Glucose 114 H Clinical Impression(s) from Imaging Studies Chest X-Ray 10/27/18 23:54 IMPRESSION: Cardiomegaly with mild vascular congestion. No pneumonia. No pleural effusions. Electronically Signed: Yuan Worthy MD at 0:32 EDT Tel , Service support , Chest X-Ray 10/28/18 05:55 IMPRESSION: Right lung infiltrates likely due to pneumonia. Electronically Signed: Romero Harris MD at 11:37 EDT Tel , Service support , Assessment/Plan All Active Problems (Last Updated 09/19/18 @ 07:24 by Rema Ocampo) ESRD (end stage renal disease) (Acute) Pneumonia (Acute) NOEL (acute kidney injury) (Acute) Problem with dialysis access (Acute) Debility (Acute) 1. CKD Stage 5 advanced to ESRD initiate dialysis after line placment. s/p AVF placement 10/08, not ready for use. 2. DM2 primary service mgmt 3. HTN stable 4. Anasarca iv lasix. Fluid removal on dialysis 5. Iron def anemia iv iron, DUNCAN on dialysis. 6. CIDP on prednisone 7. morbid obesity DW hospitalist and JOLIE/NOAM Franc[facility]
--- NOTE | 2018-10-29 09:55 | PCM.PN.HOSP ---
Patient Problems: Active and Suspected Problems (Last Updated 09/19/18 @ 07:24 by Rema Ocampo) Pneumonia (Acute) NOEL (acute kidney injury) (Acute) Subjective: Still edematous. Concerned about her right upper extremity as it is more edematous than her other arm and has been seeping fluid. Vitals/I&O's: Vital Signs Temp Pulse Resp BP Pulse Ox 36.4 C L 57 L 22 H 141/69 H 97 10/29/18 03:12 10/29/18 06:37 10/29/18 06:37 10/29/18 03:12 10/29/18 06:37 Oxygen Flow Rate (L/min) 2 Oxygen Delivery Method Nasal Cannula Weight: 122.3 kg Body Mass Index (BMI) 47.2 Intake and Output for Last 24 Hours 10/27/18 10/28/18 10/29/18 23:59 23:59 23:59 Intake Total 1346 / 1346 589 / 589 Output Total 1200 / 1200 Balance 1346 / 1346 -611 / -611 General: Alert, No apparent distress, - - up in wheelchair with legs propped up. HEENT: Atraumatic, Normocephalic Neck: No Nodes, Thyroid Normal Size and Texture, - - +JVD Lungs: Clear to auscultation, Normal air movement, No rhonchi, No wheeze Cardiovascular: Regular rate, Regular Rhythm, Normal S1, Normal S2, No murmurs Abdomen: Bowel Sounds Present, Soft, Non Tender, Non-Distended Extremities: No Calf Tenderness, Edema, - - exquisite edema 3+ in RUE, but less so than 5/12. decreased LE, but still 3+ Skin: No rashes, No breakdown Musculoskeletal: No Tenderness to Palpation of Joints or Extremities, No Muscle Wasting Neurological: Sensory exam intact to light touch and pain, Coordination normal Psych/Mental Status: Normal Affect, Appropriate Microbiology Past 72 Hours 10/28/18 02:47 Sputum, Expectorated/Coughed Gram Stain - Final 10/28/18 06:30 Urine Catheter - Catheter Streptococcus pneumoniae Antigen (M - Final 10/28/18 06:30 Urine Catheter - Catheter Legionella Antigen - Final Laboratory Results 10/28/18 11:54: POC Glucose 114 H 10/28/18 16:22: POC Glucose 92 10/28/18 21:35: POC Glucose 100 10/29/18 05:20: WBC 4.1 L, RBC 2.95 L, Hgb 8.1 L, Hct 26.0 L, MCV 88.1, MCH 27.5, MCHC 31.2 L, RDW 13.7, RDW Differential 41.9, Plt Count 140 L, MPV 11.2, Immature Gran % (Auto) 0.700, Neut % (Auto) 80.9 H, Lymph % (Auto) 11.6 L, [place] % (Auto) 6.8, Eos % (Auto) 0.0, Baso % (Auto) 0.0, Absolute Neuts (auto) 3.3, Absolute Lymphs (auto) 0.48 L, Total Counted Not Reportable, Differential Comment SCANNED 10/29/18 05:20: Sodium 141, Potassium 4.3, Chloride 109 H, Carbon Dioxide 22.0, Anion Gap 10, BUN 97 H, Creatinine 3.40 H, Estim Creat Clear Calc 15.28, Est GFR (MDRD) Af Amer 18 L, Est GFR (MDRD) Non-Af 15 L, BUN/Creatinine Ratio 28.5 H, Glucose 120 H, Calcium 7.7 L 10/29/18 06:33: POC Glucose 117 H Current Medications Acetaminophen (Tylenol) 650 mg PO Q6H PRN PRN PRN Reason: Non-cardiac pain (mod-severe) Hydrocodone Bitart/Acetaminophen ([place] 5mg-325mg) 1 - 2 tablet PO Q6H PRN PRN PRN Reason: MOD-SEVERE PAIN (4-10/10) Al Hydroxide/Mg Hydroxide (Mylanta Ii) 15 - 30 ml PO Q4H PRN PRN PRN Reason: INDIGESTION Albuterol Sulfate (Ventolin Aerosols) 2.5 mg INHALATION Q2H PRN PRN PRN Reason: dyspnea, wheezing Albuterol/Ipratropium (Duoneb) 3 ml INHALATION Q6HWA.RT [facility] Last Admin: 10/29/18 06:37 Dose: 3 ml Atorvastatin Calcium (Lipitor) 20 mg PO QHS [facility] Last Admin: 10/28/18 21:24 Dose: 20 mg Buspirone HCl (Buspar) 5 mg PO TID [facility] Last Admin: 10/29/18 06:29 Dose: 5 mg Calamine/Phenol (Calmoseptine Ointment) 1 applic TOPICAL 4X/DAY [facility]; Protocol Last Admin: 10/29/18 08:57 Dose: 1 applicatio Calcium Carbonate (Os-Chinedu 500) 500 mg PO DAILYCM [facility] Last Admin: 10/29/18 08:57 Dose: 500 mg Carvedilol (Coreg) 25 mg PO BID [facility] Last Admin: 10/29/18 08:57 Dose: 25 mg Dextrose (D50w Syringe) 0 gm IV X1 PRN; Protocol PRN Reason: Hypoglycemia Ferrous Sulfate (Ferrous Sulfate) 325 mg PO TIDCM [facility] Last Admin: 10/29/18 08:56 Dose: 325 mg Furosemide (Lasix) 20 mg IV BID@1000,1800 [facility] Last Admin: 10/29/18 08:59 Dose: 20 mg Gabapentin (Neurontin) 300 mg PO QHS [facility] Last Admin: 10/28/18 21:26 Dose: 300 mg Glucagon () 1 mg IM .X1 PRN PRN Reason: Hypoglycemia Guaifenesin (Mucinex) 1,200 mg PO BID [facility] Last Admin: 10/29/18 09:03 Dose: 1,200 mg Heparin Sodium (Porcine) (Heparin Na) 5,000 unit SC Q12 [facility] Last Admin: 10/29/18 08:58 Dose: 5,000 unit Hydralazine HCl (Apresoline Iv) 10 mg IV Q4H PRN PRN PRN Reason: SBP > 160 Hydralazine HCl (Apresoline) 50 mg PO TID [facility] Last Admin: 10/29/18 06:28 Dose: 50 mg Hydrocortisone Acetate (Anusol Hc) 25 mg RECTAL BID PRN PRN PRN Reason: Hemorrhoids Piperacillin Sod/Tazobactam (Sod 3.375 gm/ Sodium Chloride) 50 mls @ 12.5 mls/hr IV Q12 [facility] Last Admin: 10/29/18 09:04 Dose: 12.5 mls/hr Insulin Glargine (Lantus (Bkc)) 37 units SC DAILY [facility] Last Admin: 10/29/18 08:58 Dose: 37 units Insulin Human Lispro (Humalog Kwikpen (Bkc)) 0 unit SQ ACHS [facility]; Protocol Last Admin: 10/29/18 06:34 Dose: Not Given Melatonin (Melatonin) 3 mg PO QHS PRN PRN PRN Reason: INSOMNIA Montelukast Sodium (Singulair) 10 mg PO QHS [facility] Last Admin: 10/28/18 21:25 Dose: 10 mg Nitroglycerin (Nitrostat) 0.4 mg SUBLINGUAL Q5M PRN PRN Reason: CARDIAC/CHEST PAIN Nystatin (Mycostatin Powder) 1 applic TOPICAL TID [facility]; Protocol Last Admin: 10/29/18 06:29 Dose: 1 applicatio Ondansetron HCl (Zofran) 4 mg IV Q8H PRN PRN PRN Reason: NAUSEA/VOMITING Pantoprazole Sodium (Protonix) 20 mg PO DAILY [facility] Last Admin: 10/29/18 09:03 Dose: 20 mg Prednisone () 30 mg PO 1200 [facility] Last Admin: 10/28/18 11:58 Dose: 30 mg Sertraline HCl (Zoloft) 125 mg PO DAILY [facility] Last Admin: 10/29/18 09:00 Dose: 125 mg Sodium Chloride () 5 - 15 ml IV UD PRN PRN Reason: SALINE FLUSH Last Admin: 10/29/18 09:05 Dose: 10 ml Medical Necessity - Tobacco Use Smoking Status: Never smoker Tobacco Use: Non-smoker Assessment/Plan All Active Problems (Last Updated 09/19/18 @ 07:24 by Rema Ocampo) Pneumonia (Acute) NOEL (acute kidney injury) (Acute) Problem with dialysis access (Acute) Debility (Acute) 1. Acute HFpEF EF 65% on 08/07/18 complicated by CKD, which may be worsening weight on 10/25 was 112 kg, now 122. Clinically volume overloaded, though today appears somewhat better. Continue IV Lasix 2. NOEL worse FENa 1.12% monitor closely no more IVF nephrology on consult Fistula placed 10/08. Required fistulagram on 10/25. If HD needed, dialysis catheter will be necessary. DW Dr. Lew 3. Possible gram negative pneumonia aka, HCAP doubtful Will DC abx and observe 4. Right upper extremity edema DW Dr. Payan, states that her fistula nor fistula gram should cause the edema. Noted that the patient did have subclavian stenosis, but not severe. No urgent surgical needs at this time. Likely related with her anasarca continue diuresis as able check another duplex (last done on 10/18, and was negative) 5. CIDP continue prednisone follow up with neurology as outpt 6. DM2 fair control continue Lantus and log 7. VTE prophylaxis: SQ heparin. Code Visit Inpatient E&M: 94776 Subs Hosp L3
--- NOTE | 2018-10-29 10:03 | PN_ITS ---
Patient Problems: Active and Suspected Problems (Last Updated 09/19/18 @ 07:24 by Rema Ocampo) Pneumonia (Acute) NOEL (acute kidney injury) (Acute) Subjective: Still edematous. Concerned about her right upper extremity as it is more edematous than her other arm and has been seeping fluid. Vitals/I&O's: Vital Signs Temp Pulse Resp BP Pulse Ox 36.4 C L 57 L 22 H 141/69 H 97 10/29/18 03:12 10/29/18 06:37 10/29/18 06:37 10/29/18 03:12 10/29/18 06:37 Oxygen Flow Rate (L/min) 2 Oxygen Delivery Method Nasal Cannula Weight: 122.3 kg Body Mass Index (BMI) 47.2 Intake and Output for Last 24 Hours 10/27/18 10/28/18 10/29/18 23:59 23:59 23:59 Intake Total 1346 / 1346 589 / 589 Output Total 1200 / 1200 Balance 1346 / 1346 -611 / -611 General: Alert, No apparent distress, - - up in wheelchair with legs propped up. HEENT: Atraumatic, Normocephalic Neck: No Nodes, Thyroid Normal Size and Texture, - - +JVD Lungs: Clear to auscultation, Normal air movement, No rhonchi, No wheeze Cardiovascular: Regular rate, Regular Rhythm, Normal S1, Normal S2, No murmurs Abdomen: Bowel Sounds Present, Soft, Non Tender, Non-Distended Extremities: No Calf Tenderness, Edema, - - exquisite edema 3+ in RUE, but less so than 5/12. decreased LE, but still 3+ Skin: No rashes, No breakdown Musculoskeletal: No Tenderness to Palpation of Joints or Extremities, No Muscle Wasting Neurological: Sensory exam intact to light touch and pain, Coordination normal Psych/Mental Status: Normal Affect, Appropriate Microbiology Past 72 Hours 10/28/18 02:47 Sputum, Expectorated/Coughed Gram Stain - Final 10/28/18 06:30 Urine Catheter - Catheter Streptococcus pneumoniae Antigen (M - Final 10/28/18 06:30 Urine Catheter - Catheter Legionella Antigen - Final Laboratory Results 10/28/18 11:54: POC Glucose 114 H 10/28/18 16:22: POC Glucose 92 10/28/18 21:35: POC Glucose 100 10/29/18 05:20: WBC 4.1 L, RBC 2.95 L, Hgb 8.1 L, Hct 26.0 L, MCV 88.1, MCH 27.5, MCHC 31.2 L, RDW 13.7, RDW Differential 41.9, Plt Count 140 L, MPV 11.2, Immature Gran % (Auto) 0.700, Neut % (Auto) 80.9 H, Lymph % (Auto) 11.6 L, [place] % (Auto) 6.8, Eos % (Auto) 0.0, Baso % (Auto) 0.0, Absolute Neuts (auto) 3.3, Absolute Lymphs (auto) 0.48 L, Total Counted Not Reportable, Differential Comment SCANNED 10/29/18 05:20: Sodium 141, Potassium 4.3, Chloride 109 H, Carbon Dioxide 22.0, Anion Gap 10, BUN 97 H, Creatinine 3.40 H, Estim Creat Clear Calc 15.28, Est GFR (MDRD) Af Amer 18 L, Est GFR (MDRD) Non-Af 15 L, BUN/Creatinine Ratio 28.5 H, Glucose 120 H, Calcium 7.7 L 10/29/18 06:33: POC Glucose 117 H Current Medications Acetaminophen (Tylenol) 650 mg PO Q6H PRN PRN PRN Reason: Non-cardiac pain (mod-severe) Hydrocodone Bitart/Acetaminophen ([place] 5mg-325mg) 1 - 2 tablet PO Q6H PRN PRN PRN Reason: MOD-SEVERE PAIN (4-10/10) Al Hydroxide/Mg Hydroxide (Mylanta Ii) 15 - 30 ml PO Q4H PRN PRN PRN Reason: INDIGESTION Albuterol Sulfate (Ventolin Aerosols) 2.5 mg INHALATION Q2H PRN PRN PRN Reason: dyspnea, wheezing Albuterol/Ipratropium (Duoneb) 3 ml INHALATION Q6HWA.RT SHAHANA Last Admin: 10/29/18 06:37 Dose: 3 ml Atorvastatin Calcium (Lipitor) 20 mg PO QHS SHAHANA Last Admin: 10/28/18 21:24 Dose: 20 mg Buspirone HCl (Buspar) 5 mg PO TID SHAHANA Last Admin: 10/29/18 06:29 Dose: 5 mg Calamine/Phenol (Calmoseptine Ointment) 1 applic TOPICAL 4X/DAY [facility]; Protocol Last Admin: 10/29/18 08:57 Dose: 1 applicatio Calcium Carbonate (Os-Chinedu 500) 500 mg PO DAILYCM [facility] Last Admin: 10/29/18 08:57 Dose: 500 mg Carvedilol (Coreg) 25 mg PO BID [facility] Last Admin: 10/29/18 08:57 Dose: 25 mg Dextrose (D50w Syringe) 0 gm IV X1 PRN; Protocol PRN Reason: Hypoglycemia Ferrous Sulfate (Ferrous Sulfate) 325 mg PO TIDCM [facility] Last Admin: 10/29/18 08:56 Dose: 325 mg Furosemide (Lasix) 20 mg IV BID@1000,1800 [facility] Last Admin: 10/29/18 08:59 Dose: 20 mg Gabapentin (Neurontin) 300 mg PO QHS [facility] Last Admin: 10/28/18 21:26 Dose: 300 mg Glucagon () 1 mg IM .X1 PRN PRN Reason: Hypoglycemia Guaifenesin (Mucinex) 1,200 mg PO BID [facility] Last Admin: 10/29/18 09:03 Dose: 1,200 mg Heparin Sodium (Porcine) (Heparin Na) 5,000 unit SC Q12 [facility] Last Admin: 10/29/18 08:58 Dose: 5,000 unit Hydralazine HCl (Apresoline Iv) 10 mg IV Q4H PRN PRN PRN Reason: SBP > 160 Hydralazine HCl (Apresoline) 50 mg PO TID [facility] Last Admin: 10/29/18 06:28 Dose: 50 mg Hydrocortisone Acetate (Anusol Hc) 25 mg RECTAL BID PRN PRN PRN Reason: Hemorrhoids Piperacillin Sod/Tazobactam (Sod 3.375 gm/ Sodium Chloride) 50 mls @ 12.5 mls/hr IV Q12 [facility] Last Admin: 10/29/18 09:04 Dose: 12.5 mls/hr Insulin Glargine (Lantus (Bkc)) 37 units SC DAILY [facility] Last Admin: 10/29/18 08:58 Dose: 37 units Insulin Human Lispro (Humalog Kwikpen (Bkc)) 0 unit SQ ACHS [facility]; Protocol Last Admin: 10/29/18 06:34 Dose: Not Given Melatonin (Melatonin) 3 mg PO QHS PRN PRN PRN Reason: INSOMNIA Montelukast Sodium (Singulair) 10 mg PO QHS [facility] Last Admin: 10/28/18 21:25 Dose: 10 mg Nitroglycerin (Nitrostat) 0.4 mg SUBLINGUAL Q5M PRN PRN Reason: CARDIAC/CHEST PAIN Nystatin (Mycostatin Powder) 1 applic TOPICAL TID [facility]; Protocol Last Admin: 10/29/18 06:29 Dose: 1 applicatio Ondansetron HCl (Zofran) 4 mg IV Q8H PRN PRN PRN Reason: NAUSEA/VOMITING Pantoprazole Sodium (Protonix) 20 mg PO DAILY [facility] Last Admin: 10/29/18 09:03 Dose: 20 mg Prednisone () 30 mg PO 1200 [facility] Last Admin: 10/28/18 11:58 Dose: 30 mg Sertraline HCl (Zoloft) 125 mg PO DAILY [facility] Last Admin: 10/29/18 09:00 Dose: 125 mg Sodium Chloride () 5 - 15 ml IV UD PRN PRN Reason: SALINE FLUSH Last Admin: 10/29/18 09:05 Dose: 10 ml Medical Necessity - Tobacco Use Smoking Status: Never smoker Tobacco Use: Non-smoker Assessment/Plan All Active Problems (Last Updated 09/19/18 @ 07:24 by Rema Ocampo) Pneumonia (Acute) NOEL (acute kidney injury) (Acute) Problem with dialysis access (Acute) Debility (Acute) 1. Acute HFpEF * EF 65% on 08/07/18 * complicated by CKD, which may be worsening * weight on 10/25 was 112 kg, now 122. Clinically volume overloaded, though today appears somewhat better. * Continue IV Lasix 2. NOEL * worse * FENa 1.12% * monitor closely * no more IVF * nephrology on consult * Fistula placed 10/08. Required fistulagram on 10/25. * If HD needed, dialysis catheter will be necessary. * MARIO Lew 3. Possible gram negative pneumonia * aka, HCAP * doubtful * Will DC abx and observe 4. Right upper extremity edema * MARIO Payan, states that her fistula nor fistula gram should cause the edema. Noted that the patient did have subclavian stenosis, but not severe. No urgent surgical needs at this time. * Likely related with her anasarca * continue diuresis as able * check another duplex (last done on 10/18, and was negative) 5. CIDP * continue prednisone * follow up with neurology as outpt 6. DM2 * fair control * continue Lantus and log 7. VTE prophylaxis: SQ heparin. Code Visit Inpatient E&M: 31685 Subs Hosp L3
--- NOTE | 2018-10-29 10:09 | VDUE_ITS ---
Reason For Study: SWELLING Right Proximal Right jugular vein is spontaneous, widely patent, phasic, with no intraluminal echogenicity noted. Right subclavian vein is spontaneous, widely patent, phasic, with no intraluminal echogenicity noted. Right Lower Arm Right radial vein is compressible. Right ulnar vein is compressible. Right Arm Right axillary vein is spontaneous, patent, phasic, competent, compressible and demonstrates augmentation. Right brachial vein is compressible. Right cephalic vein is compressible. Right basilic vein is compressible. Interpretation Summary No evidence for acute deep venous thrombosis[right] upper extremity with patent and compressible cephalic and basilic veins. Ordering Physician: Amor Dorado Referring Physician: THEODORE ARGUETA Performed By: Valeria Segundo, RDCS, RVT ?
--- NOTE | 2018-10-29 10:09 | CASEMGMT ---
Social Work Note Pt is listed as being from [facility]. JOLIE met with pt, introduced self and role at [facility]. Pt is alert and orientated x4. Pt states that she came from [facility] but states interest in RU or TCU. Pt states that she was at before and did really well and RU is her first choice. SW explained that pt will need qualifying diagnosis for RU, pre-cert approval, and acceptance to RU. Pt states that if RU is unable to accept her then TCU is her second choice. SW explained will make referral. JOLIE placed a call to Roshni with RU. Per Roshni, pt doesn't have qualifying diagnosis and insurance wouldn't approve. JOLIE placed a call to Brea in TCU. Per Brea she is able to accept pt and will submit for pre-cert. Plan: TCU pending pre-cert Heather Hilario BEHAVIORAL CONSULTANT, TELEPHONE CLERK TELEGRAPH OFFICE
[2018-10-29 11:40] LABS: Bedside Glucose 154 mg/dL (70-110)
[2018-10-29] MEDS: Insulin Lispro 100 UNIT/ML INSULN.PEN SQ ×2 (12:13→22:43)
[2018-10-29] MEDS: predniSONE 10 MG Tablet 30 MG PO (12:14)
--- NOTE | 2018-10-29 13:42 | CASEMGMT ---
Addendum entered by Heather Hilario 10/29/18 15:23: JOLIE spoke with Anjali at [facility]. Anjali is able to accept pt and will submit for pre-cert. Original Note: Social Work Note SW received message from Brea in TCU stating she received call from [employer] stating pt has used all of her skilled days (SNF and RU days) and is not eligible for skilled days under [employer]. Brea provided Vesta number at [facility] [phone] ext. [phone]. JOLIE placed a call to Anjali at [facility] and was transferred to Zuri in business office. Zuri states pt was at [facility] under [facility] and will need pre-cert to return. JOLIE in to update pt of this. JOLIE updated pt on no skills day remaining and that this worker spoke with Roshni with [facility] who states pt doesn't have qualifying diagnosis for [facility]. JOLIE informed pt that she is able to go to SNF under [facility] but that TCU doesn't have a contract with [facility]. Pt is agreeable to returning to [facility]. JOLIE faxed referral to Anjali at [facility]. JOLIE wrote on fax cover sheet that if Anjali is able to accept pt to let this worker know and then to submit for pre-cert. Plan: Return to [facility] pending pre-cert Heather Hilario MALT HOUSE SUPERVISOR, EXCEPTIONAL STUDENT EDUCATION AIDE
[2018-10-29 15:16] LABS: Bedside Glucose 279 mg/dL (70-110)
[2018-10-29 16:05] LABS: Bedside Glucose 168 mg/dL (70-110)
--- NOTE | 2018-10-29 17:16 | NURSING ---
pt very sleepy, blood sugar and vitals wnl. pt will wake with verbal stimulation but immediately goes back to sleep. dr louis notified
[2018-10-29] MEDS: Montelukast 10 MG Tablet PO (22:42)
[2018-10-29] MEDS: Atorvastatin Calcium 20 MG Tablet PO (22:42)
[2018-10-29] MEDS: Gabapentin 300 MG Capsule PO (22:45)
[2018-10-29 23:02] LABS: Bedside Glucose 249 mg/dL (70-110)
[2018-10-30] VITALS (18 sets, daily range): BP systolic 127–180; BP diastolic 58–82; PULSE 60–81; RESP 16–22; TEMP 35.9–36.9; O2SAT 93–98; BMI 47.5
--- NOTE | 2018-10-30 05:15 | NURSING ---
PT REQUESTED BGT SHE FELT HER BG LEVEL MAY HAVE BEEN LOW. BGT WAS 195. WILL CONTINUE TO MONITOR.
--- NOTE | 2018-10-30 05:15 | NURSING ---
PT REQUESTED BGT SHE FELT HER BG LEVEL MAY HAVE BEEN LOW. BGT WAS 192. WILL CONTINUE TO MONITOR.
[2018-10-30] MEDS: hydrALAZINE 50 MG Tablet PO ×2 (05:17→14:50)
[2018-10-30] MEDS: busPIRone 5 MG Tablet PO (05:17)
[2018-10-30] MEDS: Nystatin Powder 15gm Bottle 1 APPLIC TOPICAL (05:17)
[2018-10-30 05:55] LABS: Bedside Glucose 192 mg/dL (70-110)
[2018-10-30 05:57] LABS: Hematocrit 26.2 % (37-47); Hemoglobin 8.3 g/dl (12.0-15.0); Mean Corp Hgb Conc 31.7 g/gl (32-36); Mean Corpuscular Hgb 27.3 pg (27.0-32.0); Mean Corpuscular Volume 86.2 fL (81-99); Mean Platelet Vol. 11.4 fl (6.2-12.0); Platelet Count 141 K/mm3 (150-450); RBC Distribution Width CV 13.5 % (11.6-14.6); RBC Distribution Width SD 40.9 fl (35.1-43.9); Red Blood Count 3.04 M/mm3 (4.2-5.4); White Blood Count 4.7 K/mm3 (4.4-11.0)
[2018-10-30 06:06] LABS: Scan Indicated on CBC? Y/N NO
[2018-10-30 06:23] LABS: Anion Gap 10 (5-15); BUN 98 mg/dL (7-18); BUN/Creat Ratio 26.6 RATIO (10-20); Calcium,Total 7.9 mg/dL (8.5-10.1); Chloride 110 mmol/L (98-107); Creatinine, Serum 3.69 mg/dL (0.55-1.02); EST Glomerular Filtration Rate 14 mL/min (>60); Est Glom Filt Rate - Afr Amer 16 mL/min (>60); Estimated Creatinine Clearance 14.08 ml/min; Ferritin 143 ng/mL (8-252); Glucose 202 mg/dL (74-106); Iron 38 ug/dL (50-170); Iron Binding Capacity,Total 184 ug/dL (250-450); PERCENT IRON SATURATION 20.7 % (15.0-55.0); Potassium 4.3 mmol/L (3.5-5.1); Sodium Level 142 mmol/L (136-145)
[2018-10-30] MEDS: Ipratropium/Albuterol Sulfate 3 ML AMPUL.NEB INHALATION ×4 (06:57→19:24)
[2018-10-30 07:21] LABS: Bedside Glucose 187 mg/dL (70-110)
[2018-10-30] MEDS: Insulin Lispro 100 UNIT/ML INSULN.PEN SQ ×4 (07:22→23:32)
[2018-10-30] MEDS: Calcium (Elemental) 500 MG Tablet PO (09:06)
[2018-10-30] MEDS: Ferrous Sulfate 325 MG Tablet PO ×2 (09:06→11:24)
[2018-10-30] MEDS: 0.9% NaCl Peripheral Flush Adult/Peds IV (09:07)
[2018-10-30] MEDS: Carvedilol 25 MG Tablet PO (09:07)
[2018-10-30] MEDS: Pantoprazole Sodium 20 MG Tablet PO (09:07)
[2018-10-30] MEDS: Sertraline 100 MG Tablet 125 MG PO (09:07)
[2018-10-30] MEDS: guaiFENesin 1,200 MG Tablet 1200 MG PO (09:07)
[2018-10-30] MEDS: Furosemide 20 MG/2 ML VIAL IV (09:08)
[2018-10-30] MEDS: Heparin Injection (Vial) 5,000 UNIT/ML VIAL 5000 UNIT SC (09:08)
[2018-10-30] MEDS: Menthol/Lanolin/Calamine/Znox 113 GM Tube 1 APPLIC TOPICAL (09:09)
[2018-10-30] MEDS: predniSONE 10 MG Tablet 30 MG PO (11:24)
--- NOTE | 2018-10-30 12:30 | PCM.PN.REN ---
Patient Problems: Active and Suspected Problems (Last Updated 09/19/18 @ 07:24 by Rema Ocampo) Pneumonia (Acute) NOEL (acute kidney injury) (Acute) Subjective: still with wheezing, edema persists on iv lasix. Creatinine rising. - Physical Exam General: Alert, Oriented x3, Cooperative Neck: Supple Lungs: Rhonchi, Wheezes Cardiovascular: Regular rate, No rub noted Abdomen: Bowel Sounds Present, Soft, Non Tender, Non-Distended, Obese Extremities: Edema Psych/Mental Status: Depressed Vital Signs Temp Pulse Resp BP Pulse Ox 97.9 F 74 18 153/82 H 94 10/30/18 09:07 10/30/18 09:07 10/30/18 09:07 10/30/18 09:07 10/30/18 09:07 Oxygen Flow Rate (L/min) 1 Oxygen Delivery Method Room Air Weight: 123.6 kg Body Mass Index (BMI) 47.2 Intake and Output for Last 24 Hours 10/28/18 10/29/18 10/30/18 23:59 23:59 23:59 Intake Total 1346 / 1346 955 / 955 775 / 775 Output Total 2250 / 2250 400 / 400 Balance 1346 / 1346 -1295 / -1295 375 / 375 Microbiology Past 72 Hours 10/28/18 00:25 Blood Culture - Preliminary Blood Culture (Wb) - Left Hand No growth in 48 hours. 10/27/18 23:40 Blood Culture - Preliminary Blood Culture (Wb) - Anticubital Left No growth in 48 hours. 10/28/18 02:47 Gram Stain - Final Sputum, Expectorated/Coughed Respiratory Culture - Final Mixed normal respiratory destinee. No Haemophilus, Streptococcus pneumoniae, beta-hemolytic Streptococcus or Staphylococcus aureus isolated. 10/28/18 06:30 Streptococcus pneumoniae Antigen (M - Final Urine Catheter - Catheter 10/28/18 06:30 Legionella Antigen - Final Urine Catheter - Catheter Laboratory Tests Past 24 Hrs 10/30/18 10/30/18 05:25 05:25 WBC 4.7 RBC 3.04 L Hgb 8.3 L Hct 26.2 L MCV 86.2 MCH 27.3 MCHC 31.7 L RDW 13.5 RDW Differential 40.9 Plt Count 141 L MPV 11.4 Sodium 142 Potassium 4.3 Chloride 110 H Carbon Dioxide 22.0 Anion Gap 10 BUN 98 H Creatinine 3.69 H Estim Creat Clear Calc 14.08 Est GFR (MDRD) Af Amer 16 L Est GFR (MDRD) Non-Af 14 L BUN/Creatinine Ratio 26.6 H Glucose 202 H Calcium 7.9 L Phosphorus Cancelled Iron 38 L TIBC 184 L Iron Saturation 20.7 Ferritin 143 Albumin Cancelled POC Glucose 10/30/18 10/30/18 10/29/18 06:59 05:14 22:38 POC Glucose 187 H 192 H 249 H 10/29/18 10/29/18 16:00 14:46 POC Glucose 168 H 279 H Medical Necessity - Tobacco Use Smoking Status: Never smoker Tobacco Use: Non-smoker Assessment/Plan All Active Problems (Last Updated 09/19/18 @ 07:24 by Rema Ocampo) Pneumonia (Acute) NOEL (acute kidney injury) (Acute) Problem with dialysis access (Acute) Debility (Acute) 1. 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 DW pt re: start dialysis with catheter placement. Pt agreed to initiate dialysis. AVF placed on 10/08, not ready to use. Consult Dr. Payan for TDC placement. 2. DM2 primary service mgmt 3. HTN stable 4. Anasarca, on iv lasix. 5. Iron def anemia iv iron, DUNCAN on dialysis. 6. CIDP on prednisone 7. morbid obesity DW nursing staff, Dr Payan, hospitalist
[2018-10-30 14:20] LABS: International Normalized Ratio 1.3; Prothrombin Time (Protime)PT. 15.5 SECONDS (11.7-14.9)
--- NOTE | 2018-10-30 14:27 | PCM.PN.HOSP ---
Patient Problems: Active and Suspected Problems (Last Updated 09/19/18 @ 07:24 by Rema Ocampo) Pneumonia (Acute) NOEL (acute kidney injury) (Acute) Subjective: Increased edema in LUE. Vitals/I&O's: Vital Signs Temp Pulse Resp BP Pulse Ox 36.6 C 71 16 153/82 H 94 10/30/18 09:07 10/30/18 13:59 10/30/18 13:59 10/30/18 09:07 10/30/18 09:07 Oxygen Flow Rate (L/min) 1 Oxygen Delivery Method Room Air Weight: 123.6 kg Body Mass Index (BMI) 47.2 Intake and Output for Last 24 Hours 10/28/18 10/29/18 10/30/18 23:59 23:59 23:59 Intake Total 1346 / 1346 955 / 955 775 / 775 Output Total 2250 / 2250 400 / 400 Balance 1346 / 1346 -1295 / -1295 375 / 375 General: Alert, No apparent distress HEENT: Atraumatic, Normocephalic Oral: Moist Mucosa, No Gingival or Mucosal Lesions/ Ulcerations Neck: No Nodes, Thyroid Normal Size and Texture, - - +JVD Lungs: Clear to auscultation, Diminished Cardiovascular: Regular rate, Regular Rhythm, Normal S1, Normal S2, No murmurs Abdomen: Bowel Sounds Present, Soft, Non Tender, Non-Distended, Obese Extremities: Edema - 3+ Skin: No rashes, No breakdown Musculoskeletal: No Tenderness to Palpation of Joints or Extremities, No Muscle Wasting Psych/Mental Status: Normal Affect, Appropriate Microbiology Past 72 Hours 10/28/18 00:25 Blood Culture (Wb) - Left Hand Blood Culture - Preliminary No growth in 48 hours. 10/27/18 23:40 Blood Culture (Wb) - Anticubital Left Blood Culture - Preliminary No growth in 48 hours. 10/28/18 02:47 Sputum, Expectorated/Coughed Gram Stain - Final 10/28/18 02:47 Sputum, Expectorated/Coughed Respiratory Culture - Final Mixed normal respiratory destinee. No Haemophilus, Streptococcus pneumoniae, beta-hemolytic Streptococcus or Staphylococcus aureus isolated. 10/28/18 06:30 Urine Catheter - Catheter Streptococcus pneumoniae Antigen (M - Final 10/28/18 06:30 Urine Catheter - Catheter Legionella Antigen - Final Laboratory Results 10/29/18 14:46: POC Glucose 279 H 10/29/18 16:00: POC Glucose 168 H 10/29/18 22:38: POC Glucose 249 H 10/30/18 05:14: POC Glucose 192 H 10/30/18 05:25: WBC 4.7, RBC 3.04 L, Hgb 8.3 L, Hct 26.2 L, MCV 86.2, MCH 27.3, MCHC 31.7 L, RDW 13.5, RDW Differential 40.9, Plt Count 141 L, MPV 11.4 10/30/18 05:25: Sodium 142, Potassium 4.3, Chloride 110 H, Carbon Dioxide 22.0, Anion Gap 10, BUN 98 H, Creatinine 3.69 H, Estim Creat Clear Calc 14.08, Est GFR (MDRD) Af Amer 16 L, Est GFR (MDRD) Non-Af 14 L, BUN/Creatinine Ratio 26.6 H, Glucose 202 H, Calcium 7.9 L, Phosphorus Cancelled, Iron 38 L, TIBC 184 L, Iron Saturation 20.7, Ferritin 143, Albumin Cancelled 10/30/18 06:59: POC Glucose 187 H 10/30/18 14:10: PT 15.5 H, INR 1.3 Current Medications Acetaminophen (Tylenol) 650 mg PO Q6H PRN PRN PRN Reason: Non-cardiac pain (mod-severe) Hydrocodone Bitart/Acetaminophen ([place] 5mg-325mg) 1 - 2 tablet PO Q6H PRN PRN PRN Reason: MOD-SEVERE PAIN (4-10/10) Al Hydroxide/Mg Hydroxide (Mylanta Ii) 15 - 30 ml PO Q4H PRN PRN PRN Reason: INDIGESTION Albuterol Sulfate (Ventolin Aerosols) 2.5 mg INHALATION Q2H PRN PRN PRN Reason: dyspnea, wheezing Albuterol/Ipratropium (Duoneb) 3 ml INHALATION Q6HWA.RT [facility] Last Admin: 10/30/18 13:59 Dose: 3 ml Atorvastatin Calcium (Lipitor) 20 mg PO QHS SHAHANA Last Admin: 10/29/18 22:42 Dose: 20 mg Buspirone HCl (Buspar) 5 mg PO TID [facility] Last Admin: 10/30/18 05:17 Dose: 5 mg Calamine/Phenol (Calmoseptine Ointment) 1 applic TOPICAL 4X/DAY [facility]; Protocol Last Admin: 10/30/18 09:09 Dose: 1 applicatio Calcium Carbonate (Os-Chinedu 500) 500 mg PO DAILYCM [facility] Last Admin: 10/30/18 09:06 Dose: 500 mg Carvedilol (Coreg) 25 mg PO BID [facility] Last Admin: 10/30/18 09:07 Dose: 25 mg Dextrose (D50w Syringe) 0 gm IV X1 PRN; Protocol PRN Reason: Hypoglycemia Ferrous Sulfate (Ferrous Sulfate) 325 mg PO TIDCM [facility] Last Admin: 10/30/18 11:24 Dose: 325 mg Furosemide (Lasix) 20 mg IV BID@1000,1800 [facility] Last Admin: 10/30/18 09:08 Dose: 20 mg Gabapentin (Neurontin) 300 mg PO QHS [facility] Last Admin: 10/29/18 22:45 Dose: 300 mg Glucagon () 1 mg IM .X1 PRN PRN Reason: Hypoglycemia Guaifenesin (Mucinex) 1,200 mg PO BID [facility] Last Admin: 10/30/18 09:07 Dose: 1,200 mg Heparin Sodium (Porcine) (Heparin Na) 5,000 unit SC Q12 [facility] Last Admin: 10/30/18 09:08 Dose: 5,000 unit Hydralazine HCl (Apresoline Iv) 10 mg IV Q4H PRN PRN PRN Reason: SBP > 160 Hydralazine HCl (Apresoline) 50 mg PO TID [facility] Last Admin: 10/30/18 05:17 Dose: 50 mg Hydrocortisone Acetate (Anusol Hc) 25 mg RECTAL BID PRN PRN PRN Reason: Hemorrhoids Cefazolin Sodium 2 gm/ Sodium (Chloride) 120 mls @ 240 mls/hr IV SEND TO OR W/PATIENT ONE Stop: 10/30/18 16:29 Insulin Glargine (Lantus (Bkc)) 37 units SC DAILY [facility] Last Admin: 10/30/18 09:07 Dose: 37 units Insulin Human Lispro (Humalog Kwikpen (Bkc)) 0 unit SQ ACHS [facility]; Protocol Last Admin: 10/30/18 11:24 Dose: 3 u Melatonin (Melatonin) 3 mg PO QHS PRN PRN PRN Reason: INSOMNIA Montelukast Sodium (Singulair) 10 mg PO QHS [facility] Last Admin: 10/29/18 22:42 Dose: 10 mg Nitroglycerin (Nitrostat) 0.4 mg SUBLINGUAL Q5M PRN PRN Reason: CARDIAC/CHEST PAIN Nystatin (Mycostatin Powder) 1 applic TOPICAL TID [facility]; Protocol Last Admin: 10/30/18 05:17 Dose: 1 applicatio Ondansetron HCl (Zofran) 4 mg IV Q8H PRN PRN PRN Reason: NAUSEA/VOMITING Pantoprazole Sodium (Protonix) 20 mg PO DAILY [facility] Last Admin: 10/30/18 09:07 Dose: 20 mg Prednisone () 30 mg PO 1200 [facility] Last Admin: 10/30/18 11:24 Dose: 30 mg Sertraline HCl (Zoloft) 125 mg PO DAILY [facility] Last Admin: 10/30/18 09:07 Dose: 125 mg Sodium Chloride () 5 - 15 ml IV UD PRN PRN Reason: SALINE FLUSH Last Admin: 10/30/18 09:07 Dose: 10 ml Medical Necessity - Tobacco Use Smoking Status: Never smoker Tobacco Use: Non-smoker Assessment/Plan All Active Problems (Last Updated 09/19/18 @ 07:24 by Rema Ocampo) Pneumonia (Acute) NOEL (acute kidney injury) (Acute) Problem with dialysis access (Acute) Debility (Acute) 1. Acute HFpEF EF 65% on 08/07/18 complicated by CKD, which may be worsening weight on 10/25 was 112 kg, now 122. Clinically volume overloaded, though today appears somewhat better. Continue IV Lasix 2. NOEL worse FENa 1.12% monitor closely no more IVF nephrology on consult Fistula placed 10/08. Required fistulagram on 10/25. Per Dr. Lew, to have tunnelled catheter then HD 3. Possible gram negative pneumonia aka, HCAP doubtful Will DC abx and observe 4. Right upper extremity edema DW Dr. Payan, states that her fistula nor fistula gram should cause the edema. Noted that the patient did have subclavian stenosis, but not severe. No urgent surgical needs at this time. Likely related with her anasarca continue diuresis as able Duplex on 10/18 and 13 negative for DVT 5. CIDP continue prednisone follow up with neurology as outpt 6. DM2 fair control continue Lantus and log 7. VTE prophylaxis: SQ heparin. Greater than 35 minutes of which greater than 50% of the time was counseling the patient at bedside about NOEL, HD and CHF. Code Visit Inpatient E&M: 19740 [facility] Hosp L3
--- NOTE | 2018-10-30 14:30 | PN_ITS ---
Patient Problems: Active and Suspected Problems (Last Updated 09/19/18 @ 07:24 by Rema Ocampo) Pneumonia (Acute) NOEL (acute kidney injury) (Acute) Subjective: Increased edema in LUE. Vitals/I&O's: Vital Signs Temp Pulse Resp BP Pulse Ox 36.6 C 71 16 153/82 H 94 10/30/18 09:07 10/30/18 13:59 10/30/18 13:59 10/30/18 09:07 10/30/18 09:07 Oxygen Flow Rate (L/min) 1 Oxygen Delivery Method Room Air Weight: 123.6 kg Body Mass Index (BMI) 47.2 Intake and Output for Last 24 Hours 10/28/18 10/29/18 10/30/18 23:59 23:59 23:59 Intake Total 1346 / 1346 955 / 955 775 / 775 Output Total 2250 / 2250 400 / 400 Balance 1346 / 1346 -1295 / -1295 375 / 375 General: Alert, No apparent distress HEENT: Atraumatic, Normocephalic Oral: Moist Mucosa, No Gingival or Mucosal Lesions/ Ulcerations Neck: No Nodes, Thyroid Normal Size and Texture, - - +JVD Lungs: Clear to auscultation, Diminished Cardiovascular: Regular rate, Regular Rhythm, Normal S1, Normal S2, No murmurs Abdomen: Bowel Sounds Present, Soft, Non Tender, Non-Distended, Obese Extremities: Edema - 3+ Skin: No rashes, No breakdown Musculoskeletal: No Tenderness to Palpation of Joints or Extremities, No Muscle Wasting Psych/Mental Status: Normal Affect, Appropriate Microbiology Past 72 Hours 10/28/18 00:25 Blood Culture (Wb) - Left Hand Blood Culture - Preliminary No growth in 48 hours. 10/27/18 23:40 Blood Culture (Wb) - Anticubital Left Blood Culture - Preliminary No growth in 48 hours. 10/28/18 02:47 Sputum, Expectorated/Coughed Gram Stain - Final 10/28/18 02:47 Sputum, Expectorated/Coughed Respiratory Culture - Final Mixed normal respiratory destinee. No Haemophilus, Streptococcus pneumoniae, beta-hemolytic Streptococcus or Staphylococcus aureus isolated. 10/28/18 06:30 Urine Catheter - Catheter Streptococcus pneumoniae Antigen (M - Final 10/28/18 06:30 Urine Catheter - Catheter Legionella Antigen - Final Laboratory Results 10/29/18 14:46: POC Glucose 279 H 10/29/18 16:00: POC Glucose 168 H 10/29/18 22:38: POC Glucose 249 H 10/30/18 05:14: POC Glucose 192 H 10/30/18 05:25: WBC 4.7, RBC 3.04 L, Hgb 8.3 L, Hct 26.2 L, MCV 86.2, MCH 27.3, MCHC 31.7 L, RDW 13.5, RDW Differential 40.9, Plt Count 141 L, MPV 11.4 10/30/18 05:25: Sodium 142, Potassium 4.3, Chloride 110 H, Carbon Dioxide 22.0, Anion Gap 10, BUN 98 H, Creatinine 3.69 H, Estim Creat Clear Calc 14.08, Est GFR (MDRD) Af Amer 16 L, Est GFR (MDRD) Non-Af 14 L, BUN/Creatinine Ratio 26.6 H, Glucose 202 H, Calcium 7.9 L, Phosphorus Cancelled, Iron 38 L, TIBC 184 L, Iron Saturation 20.7, Ferritin 143, Albumin Cancelled 10/30/18 06:59: POC Glucose 187 H 10/30/18 14:10: PT 15.5 H, INR 1.3 Current Medications Acetaminophen (Tylenol) 650 mg PO Q6H PRN PRN PRN Reason: Non-cardiac pain (mod-severe) Hydrocodone Bitart/Acetaminophen ([place] 5mg-325mg) 1 - 2 tablet PO Q6H PRN PRN PRN Reason: MOD-SEVERE PAIN (4-10/10) Al Hydroxide/Mg Hydroxide (Mylanta Ii) 15 - 30 ml PO Q4H PRN PRN PRN Reason: INDIGESTION Albuterol Sulfate (Ventolin Aerosols) 2.5 mg INHALATION Q2H PRN PRN PRN Reason: dyspnea, wheezing Albuterol/Ipratropium (Duoneb) 3 ml INHALATION Q6HWA.RT [facility] Last Admin: 10/30/18 13:59 Dose: 3 ml Atorvastatin Calcium (Lipitor) 20 mg PO QHS SHAHANA Last Admin: 10/29/18 22:42 Dose: 20 mg Buspirone HCl (Buspar) 5 mg PO TID [facility] Last Admin: 10/30/18 05:17 Dose: 5 mg Calamine/Phenol (Calmoseptine Ointment) 1 applic TOPICAL 4X/DAY [facility]; Protocol Last Admin: 10/30/18 09:09 Dose: 1 applicatio Calcium Carbonate (Os-Chinedu 500) 500 mg PO DAILYCM [facility] Last Admin: 10/30/18 09:06 Dose: 500 mg Carvedilol (Coreg) 25 mg PO BID [facility] Last Admin: 10/30/18 09:07 Dose: 25 mg Dextrose (D50w Syringe) 0 gm IV X1 PRN; Protocol PRN Reason: Hypoglycemia Ferrous Sulfate (Ferrous Sulfate) 325 mg PO TIDCM [facility] Last Admin: 10/30/18 11:24 Dose: 325 mg Furosemide (Lasix) 20 mg IV BID@1000,1800 [facility] Last Admin: 10/30/18 09:08 Dose: 20 mg Gabapentin (Neurontin) 300 mg PO QHS [facility] Last Admin: 10/29/18 22:45 Dose: 300 mg Glucagon () 1 mg IM .X1 PRN PRN Reason: Hypoglycemia Guaifenesin (Mucinex) 1,200 mg PO BID [facility] Last Admin: 10/30/18 09:07 Dose: 1,200 mg Heparin Sodium (Porcine) (Heparin Na) 5,000 unit SC Q12 [facility] Last Admin: 10/30/18 09:08 Dose: 5,000 unit Hydralazine HCl (Apresoline Iv) 10 mg IV Q4H PRN PRN PRN Reason: SBP > 160 Hydralazine HCl (Apresoline) 50 mg PO TID [facility] Last Admin: 10/30/18 05:17 Dose: 50 mg Hydrocortisone Acetate (Anusol Hc) 25 mg RECTAL BID PRN PRN PRN Reason: Hemorrhoids Cefazolin Sodium 2 gm/ Sodium (Chloride) 120 mls @ 240 mls/hr IV SEND TO OR W/PATIENT ONE Stop: 10/30/18 16:29 Insulin Glargine (Lantus (Bkc)) 37 units SC DAILY [facility] Last Admin: 10/30/18 09:07 Dose: 37 units Insulin Human Lispro (Humalog Kwikpen (Bkc)) 0 unit SQ ACHS [facility]; Protocol Last Admin: 10/30/18 11:24 Dose: 3 u Melatonin (Melatonin) 3 mg PO QHS PRN PRN PRN Reason: INSOMNIA Montelukast Sodium (Singulair) 10 mg PO QHS [facility] Last Admin: 10/29/18 22:42 Dose: 10 mg Nitroglycerin (Nitrostat) 0.4 mg SUBLINGUAL Q5M PRN PRN Reason: CARDIAC/CHEST PAIN Nystatin (Mycostatin Powder) 1 applic TOPICAL TID [facility]; Protocol Last Admin: 10/30/18 05:17 Dose: 1 applicatio Ondansetron HCl (Zofran) 4 mg IV Q8H PRN PRN PRN Reason: NAUSEA/VOMITING Pantoprazole Sodium (Protonix) 20 mg PO DAILY [facility] Last Admin: 10/30/18 09:07 Dose: 20 mg Prednisone () 30 mg PO 1200 [facility] Last Admin: 10/30/18 11:24 Dose: 30 mg Sertraline HCl (Zoloft) 125 mg PO DAILY [facility] Last Admin: 10/30/18 09:07 Dose: 125 mg Sodium Chloride () 5 - 15 ml IV UD PRN PRN Reason: SALINE FLUSH Last Admin: 10/30/18 09:07 Dose: 10 ml Medical Necessity - Tobacco Use Smoking Status: Never smoker Tobacco Use: Non-smoker Assessment/Plan All Active Problems (Last Updated 09/19/18 @ 07:24 by Rema Ocampo) Pneumonia (Acute) NOEL (acute kidney injury) (Acute) Problem with dialysis access (Acute) Debility (Acute) 1. Acute HFpEF * EF 65% on 08/07/18 * complicated by CKD, which may be worsening * weight on 10/25 was 112 kg, now 122. Clinically volume overloaded, though today appears somewhat better. * Continue IV Lasix 2. NOEL * worse * FENa 1.12% * monitor closely * no more IVF * nephrology on consult * Fistula placed 10/08. Required fistulagram on 10/25. * Per Dr. Lew, to have tunnelled catheter then HD 3. Possible gram negative pneumonia * aka, HCAP * doubtful * Will DC abx and observe 4. Right upper extremity edema * DW Dr. Payan, states that her fistula nor fistula gram should cause the edema. Noted that the patient did have subclavian stenosis, but not severe. No urgent surgical needs at this time. * Likely related with her anasarca * continue diuresis as able * Duplex on 10/18 and negative for DVT 5. CIDP * continue prednisone * follow up with neurology as outpt 6. DM2 * fair control * continue Lantus and log 7. VTE prophylaxis: SQ heparin. Greater than 35 minutes of which greater than 50% of the time was counseling the patient at bedside about NOEL, HD and CHF. Code Visit Inpatient E&M: 15114 Subs Hosp L3
--- NOTE | 2018-10-30 15:21 | NURSING ---
pt off unit to AC report called to Giuliana MITTAL.
[2018-10-30 15:26] LABS: Bedside Glucose 223 mg/dL (70-110)
--- NOTE | 2018-10-30 15:31 | CASEMGMT ---
Social Work Note JOLIE reviewed notes, pt is scheduled to receive tunnel catheter and receive dialysis. JOLIE placed a call to Anjali at [facility]. Per Jennifer Anjali has left for the day. Jennifer took down message and this SW direct number and will give to Anjali to call this worker tomorrow. JOLEI will ask Anjali tomorrow if SNF is still able to accept pt with dialysis. 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
[2018-10-30] MEDS: Cefazolin 2 GM in 0.9% Normal Saline 100 ML IV (16:48)
[2018-10-30] MEDS: Bupivacaine Mpf 0.5% 30 ML VIAL (17:20)
[2018-10-30] MEDS: Heparin 10,000 UNITS/10 ML Vial 10000 UNITS (17:23)
--- NOTE | 2018-10-30 17:26 | RAD_ITS ---
STUDY: X-RAY CHEST REASON FOR EXAM: Female, 58 years old. Post line placement TECHNIQUE: Single frontal view COMPARISON: October 28, 2018 FINDINGS: Right-sided central line is noted with tip in the distal SVC level. The lungs are expanded. There is increasing infiltrates in the lungs.. Cardiomegaly. Normal mediastinum and adam. Mildly prominent central pulmonary arteries. Normal visualized aortic arch and descending thoracic aorta. Normal visualized thoracic spine. Normal visualized ribs, clavicles, and shoulders. There is no demonstrated abnormality of the visualized soft tissue structures of the upper abdomen. RAD/Chest 1 View (Portable) IMPRESSION: Mild infiltrate persists with interval improvement since the previous study. Cardiomegaly with mild central pulmonary vascular prominence. Electronically Signed: Vinicius Arevalo DO at 18:07 EDT Tel [phone], Service support ,
--- NOTE | 2018-10-30 17:29 | PCM.OPRPT ---
Problem List (1) NOEL (acute kidney injury) Status: Acute Report of Operation Date of Procedure: 10/30/18 Pre-Operative Diagnosis: Acute kidney injury, urgent need for hemodialysis access Post-Operative Diagnosis: Same Surgery/Procedure Performed:: Right internal jugular 19 cm pre-curved palindrome catheter placement. Reference number [id number] lot #[id number] Description of Surgical Findings:: 58-year-old female. She has chronic renal insufficiency. She presented with acute kidney injury with congestive heart failure and significant global fluid overload. A request was made by Dr. Lew for placement of tunneled dialysis catheters to facilitate hemodialysis. I discussed treatment options with the patient and . She is aware of the technique, benefits, risks and alternatives. We elected to proceed as indicated. 58-year-old female was taken to the operating placement table underwent monitored anesthesia care. Ancef 2 g given intravenous preoperatively. The right neck and chest were sterilely prepped and draped. Under ultrasound guidance 1% lidocaine mixed 50-50 with 0.5% Marcaine was used as local anesthetic. Local was carefully inserted under ultrasound guidance. Micropuncture needle was inserted under ultrasound guidance. Micropuncture wire inserted. Then local was instilled down upon the right chest wall. Exit site was selected. The 19 cm pre-curved palindrome catheter was exited at that site and tunneled up to the neck site. Then a micropuncture sheath was inserted over 3 5 J-wire was inserted fluoroscopy demonstrated good positioning. Serial dilatation was performed. The sheath dilator was inserted. The dilator wire removed. There was very high venous backflow. The catheter was advanced the sheath was split the catheter was positioned in a nice curvilinear position. It aspirated easily was flushed with saline and then 2 cc of heparinized saline per channel. The counterincision was closed with interrupted 5-0 Vicryl subdermal stitch. The cath was secured to skin with interrupted 3-0 nylon. Silver impregnated dressing was placed at the exit site and Telfa OpSite dressings applied. Sponge and instrument and needle counts were reported surgically correct. Blood loss 100 cc she tolerated the procedure well and was taken to the recovery room in satisfactory condition without apparent complication. Stat portable chest x-ray is pending. Specimens none. Drains none. Blood loss 100 cc. Bairon Payan M.D., F.A.C.S. Type of Anesthesia:: Local MAC Anesthesiologist: Burak Schaffer
--- NOTE | 2018-10-30 17:34 | OP.PCM_ITS ---
Problem List (1) NOEL (acute kidney injury) Status: Acute Report of Operation Date of Procedure: 10/30/18 Pre-Operative Diagnosis: Acute kidney injury, urgent need for hemodialysis access Post-Operative Diagnosis: Same Surgery/Procedure Performed:: Right internal jugular 19 cm pre-curved palindrome catheter placement. Reference number [id number] lot #[id number] Description of Surgical Findings:: 58-year-old female. She has chronic renal insufficiency. She presented with acute kidney injury with congestive heart failure and significant global fluid overload. A request was made by Dr. Lew for placement of tunneled dialysis catheters to facilitate hemodialysis. I discussed treatment options with the patient and . She is aware of the technique, benefits, risks and altern atives. We elected to proceed as indicated. 58-year-old female was taken to the operating placement table underwent monitored anesthesia care. Ancef 2 g given intravenous preoperatively. The right neck and chest were sterilely prepped and draped. Under ultrasound guidance 1% lidocaine mixed 50-50 with 0.5% Marcaine was used as local anesthetic. Local was carefully inserted under ultrasound guidance. Micropuncture needle was inserted under ultrasound guidance. Micropuncture wire inserted. Then local was instilled down upon the right chest wall. Exit site was selected. The 19 cm pre-curved palindrome catheter was exited at that site and tunneled up to the neck site. Then a micropuncture sheath was inserted over 3 5 J-wire was inserted fluoroscopy demonstrated good positioning. Serial dilatation was performed. The sheath dilator was inserted. The dilator wire removed. There was very high venous backflow. The catheter was advanced the sheath was split the catheter was positioned in a nice curvilinear position. It aspirated easily was flushed with saline and then 2 cc of heparinized saline per channel. The counterincision was closed with interrupted 5-0 Vicryl subdermal stitch. The cath was secured to skin with interrupted 3-0 nylon. Silver impregnated dressing was placed at the exit site and Telfa OpSite dressings applied. Sponge and instrument and needle counts were reported surgically correct. Blood loss 100 cc she tolerated the procedure well and was taken to the recovery room in satisfactory condition without apparent complication. Stat portable chest x-ray is pending. Specimens none. Drains none. Blood loss 100 cc. Bairon Payan M.D., F.A.C.S. Type of Anesthesia:: Local MAC Anesthesiologist: Burak Schaffer
[2018-10-30 20:26] LABS: Bedside Glucose 251 mg/dL (70-110)
--- NOTE | 2018-10-30 20:30 | NURSING ---
Pt placed on cardiac monitoring for first dialysis per policy
[2018-10-30] MEDS: Epoetin Alfa epbx 10,000 UNITS/ML 6000 UNIT IV (23:00)
[2018-10-30] MEDS: Albuterol 2.5 MG/3 ML VIAL.NEB. INHALATION (23:54)
[2018-10-31] VITALS (15 sets, daily range): BP systolic 110–163; BP diastolic 55–91; PULSE 58–86; RESP 18–20; TEMP 36.4–36.7; O2SAT 93–99
[2018-10-31 00:06] LABS: Bedside Glucose 172 mg/dL (70-110)
[2018-10-31] MEDS: hydrALAZINE 50 MG Tablet PO ×4 (00:35→22:46)
[2018-10-31] MEDS: Carvedilol 25 MG Tablet PO ×3 (00:36→23:05)
[2018-10-31] MEDS: busPIRone 5 MG Tablet PO ×4 (00:36→22:47)
[2018-10-31] MEDS: Menthol/Lanolin/Calamine/Znox 113 GM Tube 1 APPLIC TOPICAL ×4 (00:36→22:58)
[2018-10-31] MEDS: Atorvastatin Calcium 20 MG Tablet PO ×2 (00:37→23:08)
[2018-10-31] MEDS: guaiFENesin 1,200 MG Tablet 1200 MG PO ×3 (00:37→23:08)
[2018-10-31] MEDS: Gabapentin 300 MG Capsule PO ×2 (00:37→23:10)
[2018-10-31] MEDS: Nystatin Powder 15gm Bottle 1 APPLIC TOPICAL ×4 (00:37→23:09)
[2018-10-31] MEDS: Montelukast 10 MG Tablet PO ×2 (00:38→23:10)
--- NOTE | 2018-10-31 02:19 | NURSING ---
Dialysis nurse, Teresita, reported 2400 ml removed from dialysis.
[2018-10-31 06:36] LABS: Anion Gap 7 (5-15); BUN 66 mg/dL (7-18); BUN/Creat Ratio 26.6 RATIO (10-20); Calcium,Total 7.8 mg/dL (8.5-10.1); Chloride 107 mmol/L (98-107); Creatinine, Serum 2.48 mg/dL (0.55-1.02); EST Glomerular Filtration Rate 21 mL/min (>60); Est Glom Filt Rate - Afr Amer 26 mL/min (>60); Estimated Creatinine Clearance 20.03 ml/min; Glucose 140 mg/dL (74-106); Potassium 3.7 mmol/L (3.5-5.1); Sodium Level 139 mmol/L (136-145)
[2018-10-31] MEDS: Ipratropium/Albuterol Sulfate 3 ML AMPUL.NEB INHALATION ×3 (06:52→19:08)
[2018-10-31 07:06] LABS: Bedside Glucose 131 mg/dL (70-110)
--- NOTE | 2018-10-31 09:04 | PCM.PN.SRG ---
Patient Problems: Active and Suspected Problems (Last Updated 09/19/18 @ 07:24 by Rema Ocampo) Pneumonia (Acute) NOEL (acute kidney injury) (Acute) Subjective: Patient was evaluated resting comfortably in bed. She notes very minimal amount of discomfort. Patient had dialysis last night without any concerns. Patient has a right upper extremity fistula which is not ready for use at this point. - Physical Exam General: Alert, Oriented x3, Cooperative Neck: - - Right chest catheter- intact. No active bleeding noted. Lungs: Clear to auscultation, Normal air movement Vital Signs Temp Pulse Resp BP Pulse Ox 97.5 F L 65 20 H 132/65 H 93 10/31/18 06:45 10/31/18 06:52 10/31/18 06:52 10/31/18 06:45 10/31/18 07:18 Oxygen Flow Rate (L/min) 2.5 Oxygen Delivery Method Room Air Weight: 263 lb 0.183 oz Body Mass Index (BMI) 47.5 Intake and Output for Last 24 Hours 10/29/18 10/30/18 10/31/18 23:59 23:59 23:59 Intake Total 955 / 955 1175 / 1175 512 / 512 Output Total 2250 / 2250 800 / 800 500 / 500 Balance -1295 / -1295 375 / 375 Microbiology Past 72 Hours 10/28/18 00:25 Blood Culture - Preliminary Blood Culture (Wb) - Left Hand No growth in 48 hours. 10/27/18 23:40 Blood Culture - Preliminary Blood Culture (Wb) - Anticubital Left No growth in 48 hours. 10/28/18 02:47 Gram Stain - Final Sputum, Expectorated/Coughed Respiratory Culture - Final Mixed normal respiratory destinee. No Haemophilus, Streptococcus pneumoniae, beta-hemolytic Streptococcus or Staphylococcus aureus isolated. 10/28/18 06:30 Streptococcus pneumoniae Antigen (M - Final Urine Catheter - Catheter 10/28/18 06:30 Legionella Antigen - Final Urine Catheter - Catheter Laboratory Tests Past 24 Hrs 10/30/18 10/30/18 10/31/18 14:10 21:15 05:22 PT 15.5 H INR 1.3 Sodium 139 Potassium 3.7 Chloride 107 Carbon Dioxide 25.0 Anion Gap 7 BUN 66 H Creatinine 2.48 H Estim Creat Clear Calc 20.03 Est GFR (MDRD) Af Amer 26 L Est GFR (MDRD) Non-Af 21 L BUN/Creatinine Ratio 26.6 H Glucose 140 H Calcium 7.8 L Hep B Core Total Ab Pending Hepatitis Be Antibody Pending Hepatitis Be Antigen Pending POC Glucose 10/31/18 10/30/18 10/30/18 06:44 23:20 14:55 POC Glucose 131 H 172 H 223 H 10/30/18 11:21 POC Glucose 251 H Medical Necessity - Tobacco Use Smoking Status: Never smoker Tobacco Use: Non-smoker Assessment/Plan All Active Problems (Last Updated 09/19/18 @ 07:24 by Rema Ocampo) Pneumonia (Acute) NOEL (acute kidney injury) (Acute) Problem with dialysis access (Acute) Debility (Acute) I am following this patient in conjunction with Dr. Payan S/p right chest catheter placement for dialysis Catheter intact and working well Follow-up with our office 1 week from discharge We will monitor as needed Code Visit Inpatient E&M: 26868 Subs Hosp L1 - No charge
[2018-10-31] MEDS: Ferrous Sulfate 325 MG Tablet PO ×2 (10:27→17:37)
[2018-10-31] MEDS: Sertraline 100 MG Tablet 125 MG PO (10:27)
[2018-10-31] MEDS: Furosemide 20 MG/2 ML VIAL IV ×2 (10:28→17:38)
[2018-10-31] MEDS: Heparin Injection (Vial) 5,000 UNIT/ML VIAL 5000 UNIT SC ×2 (10:28→23:06)
[2018-10-31] MEDS: Calcium (Elemental) 500 MG Tablet PO (10:29)
[2018-10-31] MEDS: Pantoprazole Sodium 20 MG Tablet PO (10:32)
--- NOTE | 2018-10-31 12:19 | PCM.PN.REN ---
Patient Problems: Active and Suspected Problems (Last Updated 09/19/18 @ 07:24 by Rema Ocampo) Pneumonia (Acute) NOEL (acute kidney injury) (Acute) Subjective: dialysis last night after line placement. Feels better with fluid removal. Slight improvement in moving legs. Still makes urine. Dialysis today #2. Arrange outpt dialysis. - Physical Exam General: Alert, Oriented x3, Cooperative, No apparent distress Lungs: Clear to auscultation Cardiovascular: Regular rate, No rub noted Abdomen: Bowel Sounds Present, Soft, Non Tender, Obese Extremities: Edema Psych/Mental Status: Depressed, Alert and oriented to time, place, person, mood and affect Vital Signs Temp Pulse Resp BP Pulse Ox 98.1 F 71 18 110/71 95 10/31/18 10:10/31/18 10:10/31/18 10:10/31/18 10:10/31/18 10:19 Oxygen Flow Rate (L/min) 2.5 Oxygen Delivery Method Room Air Weight: 119.3 kg Body Mass Index (BMI) 47.5 Intake and Output for Last 24 Hours 10/29/18 10/30/18 10/31/18 23:59 23:59 23:59 Intake Total 955 / 955 1175 / 1175 752 / 752 Output Total 2250 / 2250 800 / 800 500 / 500 Balance -1295 / -1295 375 / 375 252 / 252 Microbiology Past 72 Hours 10/28/18 00:25 Blood Culture - Preliminary Blood Culture (Wb) - Left Hand No growth in 48 hours. 10/27/18 23:40 Blood Culture - Preliminary Blood Culture (Wb) - Anticubital Left No growth in 48 hours. 10/28/18 02:47 Gram Stain - Final Sputum, Expectorated/Coughed Respiratory Culture - Final Mixed normal respiratory destinee. No Haemophilus, Streptococcus pneumoniae, beta-hemolytic Streptococcus or Staphylococcus aureus isolated. Laboratory Tests Past 24 Hrs 10/30/18 10/30/18 10/31/18 14:10 21:15 05:22 PT 15.5 H INR 1.3 Sodium 139 Potassium 3.7 Chloride 107 Carbon Dioxide 25.0 Anion Gap 7 BUN 66 H Creatinine 2.48 H Estim Creat Clear Calc 20.03 Est GFR (MDRD) Af Amer 26 L Est GFR (MDRD) Non-Af 21 L BUN/Creatinine Ratio 26.6 H Glucose 140 H Calcium 7.8 L Hep B Core Total Ab Pending Hepatitis Be Antibody Pending Hepatitis Be Antigen Pending POC Glucose 10/31/18 10/30/18 10/30/18 06:44 23:20 14:55 POC Glucose 131 H 172 H 223 H 10/30/18 11:21 POC Glucose 251 H Medical Necessity - Tobacco Use Smoking Status: Never smoker Tobacco Use: Non-smoker Assessment/Plan All Active Problems (Last Updated 09/19/18 @ 07:24 by Rema Ocampo) Pneumonia (Acute) NOEL (acute kidney injury) (Acute) Problem with dialysis access (Acute) Debility (Acute) 1. CKD Stage 5 advanced to ESRD HD #2 today. Arrange outpt dialysis. Await hep panel 2. DM2 primary service mgmt 3. HTN stable 4. Anasarca, on iv lasix. Fluid removal on dialysis 5. Iron def anemia iv iron, DUNCAN on dialysis. 6. CIDP on prednisone 7. morbid obesity
--- NOTE | 2018-10-31 12:27 | PCM.PN.HOSP ---
Patient Problems: Active and Suspected Problems (Last Updated 09/19/18 @ 07:24 by Rema Ocampo) Pneumonia (Acute) NOEL (acute kidney injury) (Acute) Subjective: Decreased edema. Breathing better. Vitals/I&O's: Vital Signs Temp Pulse Resp BP Pulse Ox 36.7 C 71 18 110/71 95 10/31/18 10:19 10/31/18 10:19 10/31/18 10:19 10/31/18 10:10/31/18 10:19 Oxygen Flow Rate (L/min) 2.5 Oxygen Delivery Method Room Air Weight: 119.3 kg Body Mass Index (BMI) 47.5 Intake and Output for Last 24 Hours 10/29/18 10/30/18 10/31/18 23:59 23:59 23:59 Intake Total 955 / 955 1175 / 1175 752 / 752 Output Total 2250 / 2250 800 / 800 500 / 500 Balance -1295 / -1295 375 / 375 252 / 252 General: Alert, No apparent distress HEENT: Atraumatic, Normocephalic Oral: Moist Mucosa, No Gingival or Mucosal Lesions/ Ulcerations Neck: No Nodes, Thyroid Normal Size and Texture Lungs: Clear to auscultation, Normal air movement, No rhonchi, No wheeze Cardiovascular: Regular rate, Regular Rhythm, Normal S1, Normal S2, No murmurs Abdomen: Bowel Sounds Present, Soft, Non Tender, Non-Distended Extremities: Edema - 3+, still with significant edema in RUE. Skin: No rashes, No breakdown Psych/Mental Status: Normal Affect, Appropriate Microbiology Past 72 Hours 10/28/18 00:25 Blood Culture (Wb) - Left Hand Blood Culture - Preliminary No growth in 48 hours. 10/27/18 23:40 Blood Culture (Wb) - Anticubital Left Blood Culture - Preliminary No growth in 48 hours. 10/28/18 02:47 Sputum, Expectorated/Coughed Gram Stain - Final 10/28/18 02:47 Sputum, Expectorated/Coughed Respiratory Culture - Final Mixed normal respiratory destinee. No Haemophilus, Streptococcus pneumoniae, beta-hemolytic Streptococcus or Staphylococcus aureus isolated. Laboratory Results 10/30/18 11:21: POC Glucose 251 H 10/30/18 14:10: PT 15.5 H, INR 1.3 10/30/18 14:55: POC Glucose 223 H 10/30/18 21:15: Hep B Core Total Ab Pending, Hepatitis Be Antibody Pending, Hepatitis Be Antigen Pending 10/30/18 23:20: POC Glucose 172 H 10/31/18 05:22: Sodium 139, Potassium 3.7, Chloride 107, Carbon Dioxide 25.0, Anion Gap 7, BUN 66 H, Creatinine 2.48 H, Estim Creat Clear Calc 20.03, Est GFR (MDRD) Af Amer 26 L, Est GFR (MDRD) Non-Af 21 L, BUN/Creatinine Ratio 26.6 H, Glucose 140 H, Calcium 7.8 L 10/31/18 06:44: POC Glucose 131 H Current Medications Acetaminophen (Tylenol) 650 mg PO Q6H PRN PRN PRN Reason: Non-cardiac pain (mod-severe) Hydrocodone Bitart/Acetaminophen ([place] 5mg-325mg) 1 - 2 tablet PO Q6H PRN PRN PRN Reason: MOD-SEVERE PAIN (4-10) Al Hydroxide/Mg Hydroxide (Mylanta Ii) 15 - 30 ml PO Q4H PRN PRN PRN Reason: INDIGESTION Albuterol Sulfate (Ventolin Aerosols) 2.5 mg INHALATION Q2H PRN PRN PRN Reason: dyspnea, wheezing Last Admin: 10/30/18 23:54 Dose: 2.5 mg Albuterol/Ipratropium (Duoneb) 3 ml INHALATION Q6HWA.RT [facility] Last Admin: 10/31/18 06:52 Dose: 3 ml Atorvastatin Calcium (Lipitor) 20 mg PO QHS [facility] Last Admin: 10/31/18 00:37 Dose: 20 mg Buspirone HCl (Buspar) 5 mg PO TID [facility] Last Admin: 10/31/18 06:41 Dose: 5 mg Calamine/Phenol (Calmoseptine Ointment) 1 applic TOPICAL 4X/DAY [facility]; Protocol Last Admin: 10/31/18 10:26 Dose: 1 applicatio Calcium Carbonate (Os-Chinedu 500) 500 mg PO DAILYCM [facility] Last Admin: 10/31/18 10:29 Dose: 500 mg Carvedilol (Coreg) 25 mg PO BID [facility] Last Admin: 10/31/18 10:28 Dose: 25 mg Dextrose (D50w Syringe) 0 gm IV X1 PRN; Protocol PRN Reason: Hypoglycemia Ferrous Sulfate (Ferrous Sulfate) 325 mg PO TIDCM [facility] Last Admin: 10/31/18 10:27 Dose: 325 mg Furosemide (Lasix) 20 mg IV BID@1000,1800 [facility] Last Admin: 10/31/18 10:28 Dose: 20 mg Gabapentin (Neurontin) 300 mg PO QHS [facility] Last Admin: 10/31/18 00:37 Dose: 300 mg Glucagon () 1 mg IM .X1 PRN PRN Reason: Hypoglycemia Guaifenesin (Mucinex) 1,200 mg PO BID [facility] Last Admin: 10/31/18 10:28 Dose: 1,200 mg Heparin Sodium (Porcine) (Heparin Na) 5,000 unit SC Q12 [facility] Last Admin: 10/31/18 10:28 Dose: 5,000 unit Heparin Sodium (Porcine) () 2,500 units IV UD PRN PRN Reason: HEPARIN FLUSH Last Admin: 10/30/18 23:56 Dose: 2,500 units Hydralazine HCl (Apresoline Iv) 10 mg IV Q4H PRN PRN PRN Reason: SBP > 160 Hydralazine HCl (Apresoline) 50 mg PO TID [facility] Last Admin: 10/31/18 06:41 Dose: 50 mg Hydrocortisone Acetate (Anusol Hc) 25 mg RECTAL BID PRN PRN PRN Reason: Hemorrhoids Hydromorphone HCl (Dilaudid Inj) 0.5 mg IV Q4H PRN PRN PRN Reason: SEVERE PAIN (6-10/10) Stop: 11/01/18 08:00 Insulin Glargine (Lantus (Bkc)) 37 units SC DAILY [facility] Last Admin: 10/31/18 11:19 Dose: 37 units Insulin Human Lispro (Humalog Kwikpen (Bkc)) 0 unit SQ ACHS [facility]; Protocol Last Admin: 10/31/18 11:02 Dose: Not Given Melatonin (Melatonin) 3 mg PO QHS PRN PRN PRN Reason: INSOMNIA Montelukast Sodium (Singulair) 10 mg PO QHS [facility] Last Admin: 10/31/18 00:38 Dose: 10 mg Nitroglycerin (Nitrostat) 0.4 mg SUBLINGUAL Q5M PRN PRN Reason: CARDIAC/CHEST PAIN Nystatin (Mycostatin Powder) 1 applic TOPICAL TID [facility]; Protocol Last Admin: 10/31/18 06:47 Dose: 1 applicatio Ondansetron HCl (Zofran) 4 mg IV Q8H PRN PRN PRN Reason: NAUSEA/VOMITING Pantoprazole Sodium (Protonix) 20 mg PO DAILY [facility] Last Admin: 10/31/18 10:32 Dose: 20 mg Prednisone () 30 mg PO 1200 [facility] Last Admin: 10/30/18 11:24 Dose: 30 mg Sertraline HCl (Zoloft) 125 mg PO DAILY [facility] Last Admin: 10/31/18 10:27 Dose: 125 mg Sodium Chloride () 5 - 15 ml IV UD PRN PRN Reason: SALINE FLUSH Last Admin: 10/30/18 09:07 Dose: 10 ml Sodium Chloride () 10 ml IV UD PRN PRN Reason: Dialysis Catheter Flush Medical Necessity - Tobacco Use Smoking Status: Never smoker Tobacco Use: Non-smoker Assessment/Plan All Active Problems (Last Updated 09/19/18 @ 07:24 by Rema Ocampo) Pneumonia (Acute) NOEL (acute kidney injury) (Acute) Problem with dialysis access (Acute) Debility (Acute) 1. Acute HFpEF EF 65% on 08/07/18 complicated by CKD, which may be worsening weight on 10/25 was 112 kg, now 119.3. Clinically volume overloaded, though today appears somewhat better. Continue IV Lasix improved with HD 2. NOEL worse FENa 1.12% monitor closely no more IVF nephrology on consult Fistula placed 10/08. Required fistulagram on 10/25. Tunnelled HD cath on 10/30 HD on 10/30 and Outpt HD 3. Possible gram negative pneumonia aka, HCAP doubtful as has been stable since Abx have been DC'd Will DC abx and observe 4. Right upper extremity edema DW Dr. Payan, states that her fistula nor fistula gram should cause the edema. Noted that the patient did have subclavian stenosis, but not severe. No urgent surgical needs at this time. Likely related with her anasarca continue diuresis as able Duplex on 10/18 and negative for DVT 5. CIDP continue prednisone follow up with neurology as outpt 6. DM2 fair control continue Lantus and log 7. VTE prophylaxis: SQ heparin. Code Visit Inpatient E&M: 10775 Subs Hosp L2
--- NOTE | 2018-10-31 12:31 | PN_ITS ---
Patient Problems: Active and Suspected Problems (Last Updated 09/19/18 @ 07:24 by Rema Ocampo) Pneumonia (Acute) NOEL (acute kidney injury) (Acute) Subjective: Decreased edema. Breathing better. Vitals/I&O's: Vital Signs Temp Pulse Resp BP Pulse Ox 36.7 C 71 18 110/71 95 10/31/18 10:19 10/31/18 10:19 10/31/18 10:19 10/31/18 10:10/31/18 10:19 Oxygen Flow Rate (L/min) 2.5 Oxygen Delivery Method Room Air Weight: 119.3 kg Body Mass Index (BMI) 47.5 Intake and Output for Last 24 Hours 10/29/18 10/30/18 10/31/18 23:59 23:59 23:59 Intake Total 955 / 955 1175 / 1175 752 / 752 Output Total 2250 / 2250 800 / 800 500 / 500 Balance -1295 / -1295 375 / 375 252 / 252 General: Alert, No apparent distress HEENT: Atraumatic, Normocephalic Oral: Moist Mucosa, No Gingival or Mucosal Lesions/ Ulcerations Neck: No Nodes, Thyroid Normal Size and Texture Lungs: Clear to auscultation, Normal air movement, No rhonchi, No wheeze Cardiovascular: Regular rate, Regular Rhythm, Normal S1, Normal S2, No murmurs Abdomen: Bowel Sounds Present, Soft, Non Tender, Non-Distended Extremities: Edema - 3+, still with significant edema in RUE. Skin: No rashes, No breakdown Psych/Mental Status: Normal Affect, Appropriate Microbiology Past 72 Hours 10/28/18 00:25 Blood Culture (Wb) - Left Hand Blood Culture - Preliminary No growth in 48 hours. 10/27/18 23:40 Blood Culture (Wb) - Anticubital Left Blood Culture - Preliminary No growth in 48 hours. 10/28/18 02:47 Sputum, Expectorated/Coughed Gram Stain - Final 10/28/18 02:47 Sputum, Expectorated/Coughed Respiratory Culture - Final Mixed normal respiratory destinee. No Haemophilus, Streptococcus pneumoniae, beta-hemolytic Streptococcus or Staphylococcus aureus isolated. Laboratory Results 10/30/18 11:21: POC Glucose 251 H 10/30/18 14:10: PT 15.5 H, INR 1.3 10/30/18 14:55: POC Glucose 223 H 10/30/18 21:15: Hep B Core Total Ab Pending, Hepatitis Be Antibody Pending, Hepatitis Be Antigen Pending 10/30/18 23:20: POC Glucose 172 H 10/31/18 05:22: Sodium 139, Potassium 3.7, Chloride 107, Carbon Dioxide 25.0, Anion Gap 7, BUN 66 H, Creatinine 2.48 H, Estim Creat Clear Calc 20.03, Est GFR (MDRD) Af Amer 26 L, Est GFR (MDRD) Non-Af 21 L, BUN/Creatinine Ratio 26.6 H, Glucose 140 H, Calcium 7.8 L 10/31/18 06:44: POC Glucose 131 H Current Medications Acetaminophen (Tylenol) 650 mg PO Q6H PRN PRN PRN Reason: Non-cardiac pain (mod-severe) Hydrocodone Bitart/Acetaminophen ([place] 5mg-325mg) 1 - 2 tablet PO Q6H PRN PRN PRN Reason: MOD-SEVERE PAIN (4-10) Al Hydroxide/Mg Hydroxide (Mylanta Ii) 15 - 30 ml PO Q4H PRN PRN PRN Reason: INDIGESTION Albuterol Sulfate (Ventolin Aerosols) 2.5 mg INHALATION Q2H PRN PRN PRN Reason: dyspnea, wheezing Last Admin: 10/30/18 23:54 Dose: 2.5 mg Albuterol/Ipratropium (Duoneb) 3 ml INHALATION Q6HWA.RT [facility] Last Admin: 10/31/18 06:52 Dose: 3 ml Atorvastatin Calcium (Lipitor) 20 mg PO QHS [facility] Last Admin: 10/31/18 00:37 Dose: 20 mg Buspirone HCl (Buspar) 5 mg PO TID [facility] Last Admin: 10/31/18 06:41 Dose: 5 mg Calamine/Phenol (Calmoseptine Ointment) 1 applic TOPICAL 4X/DAY [facility]; Protocol Last Admin: 10/31/18 10:26 Dose: 1 applicatio Calcium Carbonate (Os-Chinedu 500) 500 mg PO DAILYCM [facility] Last Admin: 10/31/18 10:29 Dose: 500 mg Carvedilol (Coreg) 25 mg PO BID [facility] Last Admin: 10/31/18 10:28 Dose: 25 mg Dextrose (D50w Syringe) 0 gm IV X1 PRN; Protocol PRN Reason: Hypoglycemia Ferrous Sulfate (Ferrous Sulfate) 325 mg PO TIDCM [facility] Last Admin: 10/31/18 10:27 Dose: 325 mg Furosemide (Lasix) 20 mg IV BID@1000,1800 [facility] Last Admin: 10/31/18 10:28 Dose: 20 mg Gabapentin (Neurontin) 300 mg PO QHS [facility] Last Admin: 10/31/18 00:37 Dose: 300 mg Glucagon () 1 mg IM .X1 PRN PRN Reason: Hypoglycemia Guaifenesin (Mucinex) 1,200 mg PO BID [facility] Last Admin: 10/31/18 10:28 Dose: 1,200 mg Heparin Sodium (Porcine) (Heparin Na) 5,000 unit SC Q12 [facility] Last Admin: 10/31/18 10:28 Dose: 5,000 unit Heparin Sodium (Porcine) () 2,500 units IV UD PRN PRN Reason: HEPARIN FLUSH Last Admin: 10/30/18 23:56 Dose: 2,500 units Hydralazine HCl (Apresoline Iv) 10 mg IV Q4H PRN PRN PRN Reason: SBP > 160 Hydralazine HCl (Apresoline) 50 mg PO TID [facility] Last Admin: 10/31/18 06:41 Dose: 50 mg Hydrocortisone Acetate (Anusol Hc) 25 mg RECTAL BID PRN PRN PRN Reason: Hemorrhoids Hydromorphone HCl (Dilaudid Inj) 0.5 mg IV Q4H PRN PRN PRN Reason: SEVERE PAIN (6-10/10) Stop: 11/01/18 08:00 Insulin Glargine (Lantus (Bkc)) 37 units SC DAILY [facility] Last Admin: 10/31/18 11:19 Dose: 37 units Insulin Human Lispro (Humalog Kwikpen (Bkc)) 0 unit SQ ACHS [facility]; Protocol Last Admin: 10/31/18 11:02 Dose: Not Given Melatonin (Melatonin) 3 mg PO QHS PRN PRN PRN Reason: INSOMNIA Montelukast Sodium (Singulair) 10 mg PO QHS [facility] Last Admin: 10/31/18 00:38 Dose: 10 mg Nitroglycerin (Nitrostat) 0.4 mg SUBLINGUAL Q5M PRN PRN Reason: CARDIAC/CHEST PAIN Nystatin (Mycostatin Powder) 1 applic TOPICAL TID [facility]; Protocol Last Admin: 10/31/18 06:47 Dose: 1 applicatio Ondansetron HCl (Zofran) 4 mg IV Q8H PRN PRN PRN Reason: NAUSEA/VOMITING Pantoprazole Sodium (Protonix) 20 mg PO DAILY [facility] Last Admin: 10/31/18 10:32 Dose: 20 mg Prednisone () 30 mg PO 1200 [facility] Last Admin: 10/30/18 11:24 Dose: 30 mg Sertraline HCl (Zoloft) 125 mg PO DAILY [facility] Last Admin: 10/31/18 10:27 Dose: 125 mg Sodium Chloride () 5 - 15 ml IV UD PRN PRN Reason: SALINE FLUSH Last Admin: 10/30/18 09:07 Dose: 10 ml Sodium Chloride () 10 ml IV UD PRN PRN Reason: Dialysis Catheter Flush Medical Necessity - Tobacco Use Smoking Status: Never smoker Tobacco Use: Non-smoker Assessment/Plan All Active Problems (Last Updated 09/19/18 @ 07:24 by Rema Ocampo) Pneumonia (Acute) NOEL (acute kidney injury) (Acute) Problem with dialysis access (Acute) Debility (Acute) 1. Acute HFpEF * EF 65% on 08/07/18 * complicated by CKD, which may be worsening * weight on 10/25 was 112 kg, now 119.3. Clinically volume overloaded, though today appears somewhat better. * Continue IV Lasix * improved with HD 2. NOEL * worse * FENa 1.12% * monitor closely * no more IVF * nephrology on consult * Fistula placed 10/08. Required fistulagram on 10/25. * Tunnelled HD cath on 10/30 * HD on 10/30 and * Outpt HD 3. Possible gram negative pneumonia * aka, HCAP * doubtful as has been stable since Abx have been DC'd * Will DC abx and observe 4. Right upper extremity edema * DW Dr. Payan, states that her fistula nor fistula gram should cause the edema. Noted that the patient did have subclavian stenosis, but not severe. No urgent surgical needs at this time. * Likely related with her anasarca * continue diuresis as able * Duplex on 10/18 and negative for DVT 5. CIDP * continue prednisone * follow up with neurology as outpt 6. DM2 * fair control * continue Lantus and log 7. VTE prophylaxis: SQ heparin. Code Visit Inpatient E&M: 09445 Subs Hosp L2
[2018-10-31 13:02] LABS: Bedside Glucose 226 mg/dL (70-110)
--- NOTE | 2018-10-31 13:25 | CASEMGMT ---
Addendum entered by Heather Hilario 10/31/18 13:54: Anjali also stated that she has received pre-cert but will need to figure out dialysis before pt is able to discharge. SW informed Anjali that pt isn't medically cleared for discharge. Original Note: Addendum entered by eHather Hilario 10/31/18 13:46: SW received call from Anjali at [facility] stating she will have to check with ambulance company and her director to determine if they are able to arrange transportation for pt. Anjali states that they are unable to transport pt in wheelchair as pt is unable to transfer self so she will have to contact ambulance company. SW asked Anjali if ambulance company has preference on days for dialysis as this worker could ask for specific days at dialysis. Anjali states she will ask and give this worker a call back. RN NOAM Licea updated. SW waiting for call back from Anjali at [facility]. Original Note: Social Work Note SW updated that pt will need dialysis at discharge. SW again attempted to speak to Anjali in admissions at [facility]. Per Jennifer, Anjali is currently out of the building but will be back. JOLIE provided Jennifer with this worker's exact number and told Jennifer to have Anjali call this worker when she is available. JOLIE will need to check with [facility] to determine if they are able to accept pt back with dialysis. Heather Hilario WARDROBE IMAGE CONSULTANT, SUPERVISOR CIGARETTE MAKING DEPARTMENT
[2018-10-31] MEDS: Epoetin Alfa epbx 10,000 UNITS/ML 6000 UNIT IV (13:30)
--- NOTE | 2018-10-31 13:30 | CASEMGMT ---
DAXA SANTACRUZ received update from tongue trimmer that patient will need outpatient HD setup at discharge. JOLIE Hilario updated regarding need for outpatient HD at discharge. DAXA SANTACRUZ sent referral to [facility] for outpatient HD setup. CM to continue to follow this patient and assist with setting up outpatient HD.
--- NOTE | 2018-10-31 14:45 | CASEMGMT ---
Addendum entered by Heather Hilario 10/31/18 15:02: JOLIE received call from DAXA Licea states she spoke with Anjali at [facility] who states it is dialysis that states if pt can't transfer then pt has to be transported by cot. Trent Licea placed a call to [facility] who states they are able to thee lift pt's from Wheelchair van to dialysis chair, Anjali at [facility] updated on this. Pt's dialysis times are Monday, and Monday at 12:00pm. Ajnali at [facility] updated on this and will make some calls in regards to transportation for pt. JOLIE will continue to follow along and will wait for Anjali at [facility] to call this worker back in regards to transportation for pt to dialysis and if [facility] is able to transport pt. Original Note: Social Work Note JOLIE received call from Anjali at [facility]. Per Anjali [facility] is able to transport pt to dialysis if pt's dialysis days are Monday, Monday and Monday with a fern picker time at 8:30am. JOLIE updated DAXA Lciea of this. DAXA Licea to speak with [facility] in regards to chair time. JOLIE informed Anjail that this worker is not sure if chair times will be able to be confirmed today. Anjali states understanding. Heather Hilario HOTHOUSE WORKER, HOME SERVICE ADVISOR
[2018-10-31] MEDS: Heparin 10,000 UNITS/10 ML Vial IV (15:45)
--- NOTE | 2018-10-31 16:59 | DIALYSIS ---
3hr hemodialysis complete. pt tolerated well. net uf 2600 ml. next tx prn per sales and marketing intern.
[2018-10-31] MEDS: 0.9% NaCl Peripheral Flush Adult/Peds IV (17:38)
[2018-10-31 17:41] LABS: Bedside Glucose 105 mg/dL (70-110)
[2018-10-31] MEDS: predniSONE 10 MG Tablet 30 MG PO (17:58)
[2018-10-31] MEDS: Insulin Lispro 100 UNIT/ML INSULN.PEN SQ (23:07)
[2018-10-31 23:36] LABS: Bedside Glucose 234 mg/dL (70-110)
[2018-11-01] VITALS (10 sets, daily range): BP systolic 149–169; BP diastolic 69–84; PULSE 54–75; RESP 12–18; TEMP 36.6–37; O2SAT 95–98
[2018-11-01 00:45] LABS: Bedside Glucose 205 mg/dL (70-110)
[2018-11-01 01:55] LABS: Vancomycin, Trough Level 8.4 ug/mL (5.0-15.0)
[2018-11-01 02:00] LABS: Anion Gap 10 (5-15); BUN 43 mg/dL (7-18); BUN/Creat Ratio 22.6 RATIO (10-20); Calcium,Total 7.4 mg/dL (8.5-10.1); Chloride 103 mmol/L (98-107); EST Glomerular Filtration Rate 29 mL/min (>60); Est Glom Filt Rate - Afr Amer 35 mL/min (>60); Estimated Creatinine Clearance 26.15 ml/min; Glucose 197 mg/dL (74-106); Potassium 3.9 mmol/L (3.5-5.1); Sodium Level 139 mmol/L (136-145)
[2018-11-01] MEDS: busPIRone 5 MG Tablet PO ×2 (06:35→15:17)
[2018-11-01] MEDS: Nystatin Powder 15gm Bottle 1 APPLIC TOPICAL ×2 (06:36→15:18)
[2018-11-01] MEDS: hydrALAZINE 50 MG Tablet PO ×2 (06:37→15:17)
[2018-11-01] MEDS: Insulin Lispro 100 UNIT/ML INSULN.PEN SQ ×2 (06:44→16:18)
[2018-11-01] MEDS: Ipratropium/Albuterol Sulfate 3 ML AMPUL.NEB INHALATION ×2 (07:03→13:30)
[2018-11-01] MEDS: Ferrous Sulfate 325 MG Tablet PO ×2 (08:18→15:17)
[2018-11-01] MEDS: Carvedilol 25 MG Tablet PO (08:19)
[2018-11-01] MEDS: Menthol/Lanolin/Calamine/Znox 113 GM Tube 1 APPLIC TOPICAL ×2 (08:19→15:18)
[2018-11-01] MEDS: Calcium (Elemental) 500 MG Tablet PO (08:19)
[2018-11-01] MEDS: Furosemide 20 MG/2 ML VIAL IV (08:20)
[2018-11-01] MEDS: guaiFENesin 1,200 MG Tablet 1200 MG PO (08:20)
[2018-11-01] MEDS: Heparin Injection (Vial) 5,000 UNIT/ML VIAL 5000 UNIT SC (08:20)
[2018-11-01] MEDS: Sertraline 100 MG Tablet 125 MG PO (08:21)
[2018-11-01] MEDS: Pantoprazole Sodium 20 MG Tablet PO (08:27)
[2018-11-01] MEDS: 0.9% NaCl Peripheral Flush Adult/Peds IV (08:27)
--- NOTE | 2018-11-01 08:43 | PCM.PN.REN ---
Patient Problems: Active and Suspected Problems (Last Updated 09/19/18 @ 07:24 by Rema Ocampo) Pneumonia (Acute) NOEL (acute kidney injury) (Acute) Subjective: 2.6L fluid removed on dialysis yesterday. Oxygenation stable on RA. Edema persists. +cough. Remains nonolguric. Await transportation arrangements. - Physical Exam General: Alert, Oriented x3, Cooperative Lungs: Clear to auscultation Cardiovascular: Regular rate Abdomen: Bowel Sounds Present, Soft, Non Tender, Non-Distended, Obese Extremities: Edema Psych/Mental Status: Alert and oriented to time, place, person, mood and affect Vital Signs Temp Pulse Resp BP Pulse Ox 98 F 54 L 16 152/79 H 98 11/01/18 08:33 11/01/18 08:33 11/01/18 08:33 11/01/18 08:33 11/01/18 08:33 Oxygen Flow Rate (L/min) 2.5 Oxygen Delivery Method Room Air Weight: 117.1 kg Body Mass Index (BMI) 47.5 Intake and Output for Last 24 Hours 10/30/18 10/31/18 11/01/18 23:59 23:59 23:59 Intake Total 1175 / 1175 1472 / 1472 100 / 100 Output Total 800 / 800 3400 / 3400 Balance 375 / 375 -1928 / -1928 100 / 100 Microbiology Past 72 Hours 10/28/18 00:25 Blood Culture - Preliminary Blood Culture (Wb) - Left Hand No growth in 48 hours. 10/27/18 23:40 Blood Culture - Preliminary Blood Culture (Wb) - Anticubital Left No growth in 48 hours. 10/28/18 02:47 Gram Stain - Final Sputum, Expectorated/Coughed Respiratory Culture - Final Mixed normal respiratory destinee. No Haemophilus, Streptococcus pneumoniae, beta-hemolytic Streptococcus or Staphylococcus aureus isolated. Laboratory Tests Past 24 Hrs 11/01/18 11/01/18 01:20 01:20 Sodium 139 Potassium 3.9 Chloride 103 Carbon Dioxide 26.0 Anion Gap 10 BUN 43 H Creatinine 1.90 H Estim Creat Clear Calc 26.15 Est GFR (MDRD) Af Amer 35 L Est GFR (MDRD) Non-Af 29 L BUN/Creatinine Ratio 22.6 H Glucose 197 H Calcium 7.4 L Vancomycin Trough 8.4 POC Glucose 05/10/31/18 10/31/18 00:43 22:43 17:30 POC Glucose 205 H 234 H 105 10/31/18 10:59 POC Glucose 226 H Medical Necessity - Tobacco Use Smoking Status: Never smoker Tobacco Use: Non-smoker Assessment/Plan All Active Problems (Last Updated 09/19/18 @ 07:24 by Rema Ocampo) Pneumonia (Acute) NOEL (acute kidney injury) (Acute) Problem with dialysis access (Acute) Debility (Acute) 1. CKD Stage 5 advanced to ESRD HD today. Arrange transportation. outpt dialysis scheduled for TTS second shift. Await hep panel. OK to dc to ECF after dialysis today 2. DM2 primary service mgmt 3. HTN stable 4. Anasarca continue lasix 80mg twice a day on discharge. Fluid removal on dialysis 5. Iron def anemia iv iron, DUNCAN on dialysis. 6. CIDP on prednisone 7. morbid obesity DW hospitalist and SW/CM Addendum seen on dialysis. Attempt 2L fluid removal today as shola
--- NOTE | 2018-11-01 09:03 | CASEMGMT ---
Addendum entered by Heather Hilario 11/01/18 10:43: JOLIE received call from Samanage at [facility] stating pre-cert is good until Monday. JOLIE informed Tabsoila that pt is to get dialysis today and then discharged after pt gets dialysis today. Sugar states understanding. JOLIE completed convalescent 7000 in [facility]. Original in SNF folder and copy on pt's chart. JOLIE placed transportation and green sheet on pt's chart. SW in to update pt. Pt is alert and orientated x4. SW updated pt on acceptance to [facility] and that per [facility] they will be transporting pt to and from dialysis. SW updated pt that dialysis is arranged through [facility] in [place]. JOLIE asked pt if she would like this worker to call her to update him, pt states No I will call him and update him right now. Plan: [facility] once medically cleared Heather Hilario AUTOMATION TECHNOLOGIST, ADMINISTRATIVE JOB TITLES Original Note: Social Work Note SW received message from Samanage at [facility]. Sugar states they have transportation arranged for pt to get dialysis on Monday. JOLIE updated RN CM and physician of this. Physician is still waiting for results from hep panel, will need results before Monday so pt is able to get dialysis. JOLIE placed a call to [facility], left message for Azalia as Kailash is not in yet to have Samanage call this worker when she gets in. Pre-cert was obtained yesterday and this worker will have to check to determine how long pre-cert is good for. JOLIE waiting for call back from Samanage. Plan: [facility] once medically cleared Heather Hilario AUTOMATION TECHNOLOGIST, ADMINISTRATIVE JOB TITLES
--- NOTE | 2018-11-01 09:52 | TREXTCAR_ITS ---
- Diet 10/30/18 23:16 Diet: Cardiac/Low Cholesterol Is pt able to select menu?: Yes Diet Comments: No concentrated sweets - Routine Orders/Code Status Routine Lab Work: CBC - weekly, BMP - weekly - Wound(s) right ac Wound Type: open blisters left buttock area Wound Type: Abrasion right hip Wound Type: Abrasion right upper arm Wound Type: incision at fistula site rt neck Wound Type: Puncture rt chest Wound Type: Surgical Incision - Therapies Weight Bearing: Full weight bearing Physical Therapy: Eval and Treat Occupational Therapy: Eval and Treat - Allergies/Procedures Done in Hospital Allergies/Adverse Reactions: Allergies latex Allergy (Verified 10/27/18 23:45) Hives Sulfa (Sulfonamide Antibiotics) Allergy (Verified 10/27/18 23:45) Rash codeine Adverse Reaction (Verified 10/27/18 23:45) Other CONFUSION Procedures: Dialysis, - - dialysis catheter placement - Type of Care/Length of Stay Estimated LOS: Convalescent Care Less Than 30 days Type of Care Needed: Skilled Rehab Potential: Fair Prognosis: Fair - Additional Orders/Day of Discharge Additional Orders: Bilateral lower extremity lymphedema wraps. Keep RUE elevate at the level of the heart--minimum. Day of Discharge: 11/01/18 - Dietary and Speech Recommendations Dietitian Recommendations/Changes: Rec diet change to [address] Cardiac/low so dium w/ fluid restriction - Follow Up Care Primary Care Physician: Marcela Kerr MD [Primary Care Provider] - Within 2 Weeks Please Follow Up With: Bairon Payan MD - dialysis catheter follow up When: 1 week [facility] When: Every Monday, , Monday.
--- NOTE | 2018-11-01 09:53 | PCM.DC.SUM ---
Discharge Date and Diagnosis - Problem List Patient Problems: Active and Suspected Problems (Last Updated 09/19/18 @ 07:24 by Rema Ocampo) Pneumonia (Acute) NOEL (acute kidney injury) (Acute) Date of Admission: 10/28/18 Date of Discharge: 11/01/18 - Primary Discharge Diagnosis Active and Suspected Problems (Last Updated 09/19/18 @ 07:24 by Rema Ocampo) Pneumonia (Acute) NOEL (acute kidney injury) (Acute) 1. Acute HFpEF EF 65% on 08/07/18 complicated by CKD, which may be worsening weight on 10/25 was 112 kg, now 119.3. Clinically volume overloaded, though today appears somewhat better. DW Dr. Lew--continue with Lasix at 80 mg BID improved with HD 2. NOEL worse FENa 1.12% monitor closely no more IVF nephrology on consult Fistula placed 10/08. Required fistulagram on 10/25. Tunnelled HD cath on 10/30 HD on 10/30 and Outpt HD every Monday, , Monday. 3. Possible gram negative pneumonia aka, HCAP ruled out. doubtful as has been stable since Abx have been DC'd 4. Right upper extremity edema DW Dr. Payan, states that her fistula nor fistula gram should cause the edema. Noted that the patient did have subclavian stenosis, but not severe. No urgent surgical needs at this time. Likely related with her anasarca continue diuresis as able Duplex on 10/18 and negative for DVT 5. CIDP continue prednisone follow up with neurology as outpt - Secondary Discharge Diagnosis Chronic Problems (Last Updated 09/19/18 @ 07:24 by Rema Ocampo) Morbid obesity (Chronic) Chronic diastolic CHF (congestive heart failure) (Chronic) 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) Hyperlipidemia (Chronic) Chronic kidney disease (Chronic) HTN (hypertension) (Chronic) Obesity (Chronic) DM2 (diabetes mellitus, type 2) (Chronic) Hospital Course and Treatment Imaging Results: Clinical Impression(s) from Imaging Studies Chest X-Ray 10/27/18 23:54 IMPRESSION: Cardiomegaly with mild vascular congestion. No pneumonia. No pleural effusions. Electronically Signed: Yuan Worthy MD at 0:32 EDT Tel , Service support , Chest X-Ray 10/28/18 05:55 IMPRESSION: Right lung infiltrates likely due to pneumonia. Electronically Signed: Romero Harris MD at 11:37 EDT Tel , Service support , Chest X-Ray 10/30/18 17:26 IMPRESSION: Mild infiltrate persists with interval improvement since the previous study. Cardiomegaly with mild central pulmonary vascular prominence. Electronically Signed: Vinicius Arevalo DO at 18:07 EDT Tel [phone], Service support , Jillian eLw DO: nephrology Bairon Payan MD: general surgery. Operations: - - dialysis catheter placement Procedures: Dialysis Summary of Care Provided: The patient is a 58 year old F Jordy with shortness of breath. Initially felt to be related with pneumonia but for evaluation patient had put on roughly 20 to 30 pounds in a very short period of times due to CHF. CHF was more trivial to her worsening renal failure and the patient was seen by nephrology started on dialysis. Patient received dialysis on the and . Patient did have a tunneled dialysis catheter placement by Dr. Bairon Payan on the . Patient is tolerated dialysis and has had rapid improvement of her weight and no shortness of breath. We will continue with dialysis for the time being every Monday. Patient does have diffuse anasarca which is improved overall but still has most prominently in her right upper extremity. Patient did have a fistula placement and then fistulogram more recently. Ultrasounds were negative for DVT. Patient instructed to keep her right upper extremity elevated when not in use. [] Patient Problems: Active and Suspected Problems (Last Updated 09/19/18 @ 07:24 by Rema Ocampo) Pneumonia (Acute) NOEL (acute kidney injury) (Acute) - Physical Exam General: Alert, No apparent distress HEENT: Atraumatic, Normocephalic Oral: Moist Mucosa, No Gingival or Mucosal Lesions/ Ulcerations Neck: No Nodes, Thyroid Normal Size and Texture Lungs: Clear to auscultation, Normal air movement, No rhonchi, No wheeze Cardiovascular: Regular rate, Regular Rhythm, Normal S1, Normal S2, No murmurs Abdomen: Bowel Sounds Present, Soft, Non Tender, Non-Distended Extremities: Edema - decreased in LE. slightly less edema in RUE. Vital Signs Temp Pulse Resp BP Pulse Ox 36.6 C 54 L 16 152/79 H 98 11/01/18 08:33 11/01/18 08:33 11/01/18 08:33 11/01/18 08:33 11/01/18 08:33 Oxygen Flow Rate (L/min) 2.5 Oxygen Delivery Method Room Air Weight: 117.1 kg Body Mass Index (BMI) 47.5 Intake and Output for Last 24 Hours 10/30/18 10/31/18 11/01/18 23:59 23:59 23:59 Intake Total 1175 / 1175 1472 / 1472 100 / 100 Output Total 800 / 800 3400 / 3400 Balance 375 / 375 -1928 / -1928 100 / 100 Microbiology Past 72 Hours 10/28/18 00:25 Blood Culture - Preliminary Blood Culture (Wb) - Left Hand No growth in 48 hours. 10/27/18 23:40 Blood Culture - Preliminary Blood Culture (Wb) - Anticubital Left No growth in 48 hours. 10/28/18 02:47 Gram Stain - Final Sputum, Expectorated/Coughed Respiratory Culture - Final Mixed normal respiratory destinee. No Haemophilus, Streptococcus pneumoniae, beta-hemolytic Streptococcus or Staphylococcus aureus isolated. Laboratory Tests Past 24 Hrs 11/01/18 11/01/18 01:20 01:20 Sodium 139 Potassium 3.9 Chloride 103 Carbon Dioxide 26.0 Anion Gap 10 BUN 43 H Creatinine 1.90 H Estim Creat Clear Calc 26.15 Est GFR (MDRD) Af Amer 35 L Est GFR (MDRD) Non-Af 29 L BUN/Creatinine Ratio 22.6 H Glucose 197 H Calcium 7.4 L Vancomycin Trough 8.4 POC Glucose 11/01/18 10/31/18 10/31/18 00:43 22:43 17:30 POC Glucose 205 H 234 H 105 10/31/18 10:59 POC Glucose 226 H Discharge Diet: 1800 Calorie Control Diet, Renal Diet Discharge Activity: Return to Normal Activity Call your doctor if you observe: Fever of 101 or Higher, Shortness of breath Home Medications: Medications to take at Discharge Montelukast [Singulair] 10 mg PO QHS 10/29/13 Gabapentin [Neurontin] 300 mg PO QHS 06/14/18 Sertraline HCl 125 mg PO DAILY 06/14/18 Calcium Carbonate 500 mg PO DAILY 06/20/18 Pantoprazole Sodium [Protonix] 20 mg PO DAILY 06/20/18 Atorvastatin Calcium [Lipitor] 20 mg PO QHS 07/28/18 Carvedilol [Coreg (Beta Shannon)] 25 mg PO BID 07/28/18 busPIRone [Buspar] 5 mg PO TID 07/28/18 Ferrous Sulfate 325 mg PO TIDCM tab 08/24/18 Hydrocortisone [Anusol Hc] 25 mg RECTAL BID PRN PRN suppos. 08/24/18 hydralazine 50 mg tablet 50 mg PO TID 09/19/18 Insulin Glargine,Hum.rec.anlog [Basaglar Kwikpen U-100] 37 unit SQ DAILY 10/04/18 Insulin Lispro [Humalog Kwikpen] 12 unit SQ ACHS 10/04/18 Losartan Potassium [Cozaar] 100 mg PO QHS 10/04/18 predniSONE tablet 30 mg PO 1200 10/04/18 Ondansetron [Zofran Odt] 4 mg PO Q8H PRN PRN #10 tablet 10/10/18 Acetaminophen [Tylenol Tablet] 650 mg PO Q6H PRN PRN tablet 11/01/18 Furosemide [Lasix] 80 mg PO BID #0 11/01/18 Guaifenesin [Mucinex] 1,200 mg PO BID tablet 11/01/18 Melatonin 3 mg PO QHS PRN PRN tablet 11/01/18 Primary Care Physician: Marcela Kerr MD [Primary Care Provider] - Within 2 Weeks Please Follow Up With: Bairon Payan MD - dialysis catheter follow up When: 1 week [facility] When: Every Monday, , Monday. Disposition: Nursing Home facility Minutes spent on discharge:: 32 Patient Condition:: Fair Medical Necessity - Tobacco Use Smoking Status: Never smoker Tobacco Use: Non-smoker Meaningful Use Info Meaningful Use Diagnoses (Choose all that apply): CHF - CHF ARISTIDES/ARB ordered at discharge?: Yes Documented LVEF (%): 65 Code Visit Inpatient E&M: 38766 Disch Hosp
--- NOTE | 2018-11-01 09:58 | DS.PCM_ITS ---
Discharge Date and Diagnosis - Problem List Patient Problems: Active and Suspected Problems (Last Updated 09/19/18 @ 07:24 by Rema Ocampo) Pneumonia (Acute) NOEL (acute kidney injury) (Acute) Date of Admission: 10/28/18 Date of Discharge: 11/01/18 - Primary Discharge Diagnosis Active and Suspected Problems (Last Updated 09/19/18 @ 07:24 by Rema Ocampo) Pneumonia (Acute) NOEL (acute kidney injury) (Acute) 1. Acute HFpEF * EF 65% on 08/07/18 * complicated by CKD, which may be worsening * weight on 10/25 was 112 kg, now 119.3. Clinically volume overloaded, though today appears somewhat better. * MARIO Lew--continue with Lasix at 80 mg BID * improved with HD 2. NOLE * worse * FENa 1.12% * monitor closely * no more IVF * nephrology on consult * Fistula placed 10/08. Required fistulagram on 10/25. * Tunnelled HD cath on 10/30 * HD on 10/30 and * Outpt HD every Monday, , Monday. 3. Possible gram negative pneumonia * aka, HCAP * ruled out. doubtful as has been stable since Abx have been DC'd 4. Right upper extremity edema * MARIO Payan, states that her fistula nor fistula gram should cause the edema. Noted that the patient did have subclavian stenosis, but not severe. No urgent surgical needs at this time. * Likely related with her anasarca * continue diuresis as able * Duplex on 10/18 and negative for DVT 5. CIDP * continue prednisone * follow up with neurology as outpt - Secondary Discharge Diagnosis Chronic Problems (Last Updated 09/19/18 @ 07:24 by Rema Ocampo) Morbid obesity (Chronic) Chronic diastolic CHF (congestive heart failure) (Chronic) 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) Hyperlipidemia (Chronic) Chronic kidney disease (Chronic) HTN (hypertension) (Chronic) Obesity (Chronic) DM2 (diabetes mellitus, type 2) (Chronic) Hospital Course and Treatment Imaging Results: Clinical Impression(s) from Imaging Studies Chest X-Ray 10/27/18 23:54 IMPRESSION: Cardiomegaly with mild vascular congestion. No pneumonia. No pleural effusions. Electronically Signed: Yuan Worthy MD at 0:32 EDT Tel , Service support , Chest X-Ray 10/28/18 05:55 IMPRESSION: Right lung infiltrates likely due to pneumonia. Electronically Signed: Romero Harris MD at 11:37 EDT Tel , Service support , Chest X-Ray 10/30/18 17:26 IMPRESSION: Mild infiltrate persists with interval improvement since the previous study. Cardiomegaly with mild central pulmonary vascular prominence. Electronically Signed: Vinicius Arevalo DO at 18:07 EDT Tel [phone], Service support , Jillian Lew DO: nephrology Bairon Payan MD: general surgery. Operations: - - dialysis catheter placement Procedures: Dialysis Summary of Care Provided: The patient is a 58 year old F Jordy with shortness of breath. Initially felt to be related with pneumonia but for evaluation patient had put on roughly 20 to 30 pounds in a very short period of times due to CHF. CHF was more trivial to her worsening renal failure and the patient was seen by nephrology started on dialysis. Patient received dialysis on the and . Patient did have a tunneled dialysis catheter placement by Dr. Bairon Payan on the . Patient is tolerated dialysis and has had rapid improvement of her weight and no shortness of breath. We will continue with dialysis for the time being every Monday. Patient does have diffuse anasarca which is improved overall but still has most prominently in her right upper extremity. Patient did have a fistula placement and then fistulogram more recently. Ultrasounds were negative for DVT. Patient instructed to keep her right upper extremity elevated when not in use. [] Patient Problems: Active and Suspected Problems (Last Updated 09/19/18 @ 07:24 by Rema Ocampo) Pneumonia (Acute) NOEL (acute kidney injury) (Acute) - Physical Exam General: Alert, No apparent distress HEENT: Atraumatic, Normocephalic Oral: Moist Mucosa, No Gingival or Mucosal Lesions/ Ulcerations Neck: No Nodes, Thyroid Normal Size and Texture Lungs: Clear to auscultation, Normal air movement, No rhonchi, No wheeze Cardiovascular: Regular rate, Regular Rhythm, Normal S1, Normal S2, No murmurs Abdomen: Bowel Sounds Present, Soft, Non Tender, Non-Distended Extremities: Edema - decreased in LE. slightly less edema in RUE. Vital Signs Temp Pulse Resp BP Pulse Ox 36.6 C 54 L 16 152/79 H 98 11/01/18 08:33 11/01/18 08:33 11/01/18 08:33 11/01/18 08:33 11/01/18 08:33 Oxygen Flow Rate (L/min) 2.5 Oxygen Delivery Method Room Air Weight: 117.1 kg Body Mass Index (BMI) 47.5 Intake and Output for Last 24 Hours 10/30/18 10/31/18 11/01/18 23:59 23:59 23:59 Intake Total 1175 / 1175 1472 / 1472 100 / 100 Output Total 800 / 800 3400 / 3400 Balance 375 / 375 -1928 / -1928 100 / 100 Microbiology Past 72 Hours 10/28/18 00:25 Blood Culture - Preliminary Blood Culture (Wb) - Left Hand No growth in 48 hours. 10/27/18 23:40 Blood Culture - Preliminary Blood Culture (Wb) - Anticubital Left No growth in 48 hours. 10/28/18 02:47 Gram Stain - Final Sputum, Expectorated/Coughed Respiratory Culture - Final Mixed normal respiratory destinee. No Haemophilus, Streptococcus pneumoniae, beta-hemolytic Streptococcus or Staphylococcus aureus isolated. Laboratory Tests Past 24 Hrs 11/01/18 11/01/18 01:20 01:20 Sodium 139 Potassium 3.9 Chloride 103 Carbon Dioxide 26.0 Anion Gap 10 BUN 43 H Creatinine 1.90 H Estim Creat Clear Calc 26.15 Est GFR (MDRD) Af Amer 35 L Est GFR (MDRD) Non-Af 29 L BUN/Creatinine Ratio 22.6 H Glucose 197 H Calcium 7.4 L Vancomycin Trough 8.4 POC Glucose 11/01/18 10/31/18 10/31/18 00:43 22:43 17:30 POC Glucose 205 H 234 H 105 10/31/18 10:59 POC Glucose 226 H Discharge Diet: 1800 Calorie Control Diet, Renal Diet Discharge Activity: Return to Normal Activity Call your doctor if you observe: Fever of 101 or Higher, Shortness of breath Home Medications: Medications to take at Discharge Montelukast [Singulair] 10 mg PO QHS 10/29/13 Gabapentin [Neurontin] 300 mg PO QHS 06/14/18 Sertraline HCl 125 mg PO DAILY 06/14/18 Calcium Carbonate 500 mg PO DAILY 06/20/18 Pantoprazole Sodium [Protonix] 20 mg PO DAILY 06/20/18 Atorvastatin Calcium [Lipitor] 20 mg PO QHS 07/28/18 Carvedilol [Coreg (Beta Shannon)] 25 mg PO BID 07/28/18 busPIRone [Buspar] 5 mg PO TID 07/28/18 Ferrous Sulfate 325 mg PO TIDCM tab 08/24/18 Hydrocortisone [Anusol Hc] 25 mg RECTAL BID PRN PRN suppos. 08/24/18 hydralazine 50 mg tablet 50 mg PO TID 09/19/18 Insulin Glargine,Hum.rec.anlog [Basaglar Kwikpen U-100] 37 unit SQ DAILY 10/04/18 Insulin Lispro [Humalog Kwikpen] 12 unit SQ ACHS 10/04/18 Losartan Potassium [Cozaar] 100 mg PO QHS 10/04/18 predniSONE tablet 30 mg PO 1200 10/04/18 Ondansetron [Zofran Odt] 4 mg PO Q8H PRN PRN #10 tablet 10/10/18 Acetaminophen [Tylenol Tablet] 650 mg PO Q6H PRN PRN tablet 11/01/18 Furosemide [Lasix] 80 mg PO BID #0 11/01/18 Guaifenesin [Mucinex] 1,200 mg PO BID tablet 11/01/18 Melatonin 3 mg PO QHS PRN PRN tablet 11/01/18 Primary Care Physician: Marcela Kerr MD [Primary Care Provider] - Within 2 Weeks Please Follow Up With: Bairon Payan MD - dialysis catheter follow up When: 1 week [facility] When: Every Monday, , Monday. Disposition: Longterm facility Minutes spent on discharge:: 32 Patient Condition:: Fair Medical Necessity - Tobacco Use Smoking Status: Never smoker Tobacco Use: Non-smoker Meaningful Use Info Meaningful Use Diagnoses (Choose all that apply): CHF - CHF ARISTIDES/ARB ordered at discharge?: Yes Documented LVEF (%): 65 Code Visit Inpatient E&M: 40634 Disch Hosp
[2018-11-01 11:20] LABS: Bedside Glucose 266 mg/dL (70-110)
--- NOTE | 2018-11-01 13:59 | PCM.PN.BLA ---
Progress Note Patient is currently undergoing her third hemodialysis via her tunneled right IJ dialysis catheters. Unfortunately right upper extremity swelling persists. I have encouraged her to follow-up with me as an outpatient. I would consider a repeat fistulogram with possible central venous stenting. Bairon Payan M.D., F.A.C.S.
--- NOTE | 2018-11-01 15:06 | DIALYSIS ---
IUF x 2 hrs completed, tolerated very well, 2500mL removed, critline profile B, accessed via R chest HD catheter, maturing YANET AVF, ++ bruit/thrill, RUE 4+ edema, elevated on pillow, next treatment Monday per nephrology
[2018-11-01] MEDS: predniSONE 10 MG Tablet 30 MG PO (15:17)
--- NOTE | 2018-11-01 15:21 | NURSING ---
suture to right upper arm removed per dr payan ordered
--- NOTE | 2018-11-01 15:55 | CASEMGMT ---
Social Work Note Per short haul driver is complete and pt is able to discharge to [facility] today. JOLIE faxed completed discharge paperwork to [facility] at [facility] including transfer to extended care facility, signed medication list and any scripts. Originals in SNF folder and copy on pt's chart. JOLIE completed [facility]valescent [facility] in [facility]. Original in SNF folder and copy on pt's chart. JOLIE placed a call to [facility] and arranged transportation via cot for 6:30pm. Transportation form on SNF folder and copy on pt's chart. JOLIE updated pt on discharge time. Pt states that she has updated her on discharge and she will update her on transportation time. JOLIE updated RN and Alma at [facility] of transportation as [facility] has left for the day. Plan: Pt to discharge to [facility] skilled today with [facility] transporting via cot at 6:30pm Heather MADRID, [employer]
[2018-11-01 16:07] LABS: Hepatitis Be Ab Negative (Negative); Hepatitis Be Ag Negative (Negative)
[2018-11-01 16:26] LABS: Bedside Glucose 299 mg/dL (70-110)
--- NOTE | 2018-11-01 18:59 | NURSING ---
PT LEFT VIA AMBULANCE TO [facility]
[2018-11-01 20:30] LABS: Bedside Glucose 198 mg/dL (70-110)
[2018-11-02 10:08] LABS: Hepatitis B Core Ab Total Negative (Negative)
== END 2018-11-01 19:09 | disposition skilled nursing facility (03) | DRG 291 ==
LOC: ED 10-28 00:03 → MS3 10-28 01:43
PROVIDERS: Internal Medicine Nephrology; Surgery; Admitting Provider Family Medicine; Emergency Provider Emergency Medicine; Family Provider Internal Medicine Geriatric Medicine; PCP Internal Medicine Geriatric Medicine
PROC: 0JH63XZ Insertion of Tunneled Vascular Access Device into Chest Subcutaneous Tissue and Fascia, Percutaneous Approach (ICD-10-PCS; principal; 2018-10-30 16:15)
DX: I13.2 Hypertensive heart and chronic kidney disease with heart failure and with stage 5 chronic kidney disease, or end stage renal disease (principal); I50.33 Acute on chronic diastolic (congestive) heart failure; N18.6 End stage renal disease; N17.9 Acute kidney failure, unspecified; Z68.42 Body mass index [BMI] 45.0-49.9, adult; G61.81 Chronic inflammatory demyelinating polyneuritis; E78.5 Hyperlipidemia, unspecified; E11.22 Type 2 diabetes mellitus with diabetic chronic kidney disease; E66.01 Morbid (severe) obesity due to excess calories; Z79.52 Long term (current) use of systemic steroids; Z79.4 Long term (current) use of insulin; D50.9 Iron deficiency anemia, unspecified
CPT/HCPCS: 36415; 71045; 71046; 77001; 80048; 80202; 82570; 82728; 82962; 83540; 83550; 83605; 84300; 85025; 85027; 85610; 86704; 86707; 87040; 87070; 87205; 87350; 87449; 87641; 90937; 93971; 94640; 94667; 94668; 97110; 97162; 97166; 97530; 97802; 99285; J1756; J7030; J7040; J7050; J7120; A4216; C1750; G0257; J1940; Q5106

== ENCOUNTER 2019-01-19 14:31 | Inpatient (IN) | payer OTHER, MEDICAID, SELFPAY ==
[2018-11-08 07:51] VITALS: BMI 47.5
[2019-01-19 14:34] VITALS: BP 100/48; PULSE 60; PULSE 65; RESP 17; TEMP 36.8; O2SAT 97; BMI 44.9
--- NOTE | 2019-01-19 15:33 | CT_ITS ---
STUDY: CT CHEST WITH CONTRAST REASON FOR EXAM: Female, 58 years old. Right persists RADIATION DOSAGE (If Supplied By Facility): CTDIvol = ( 20.12 ) mGy, DLP = ( 745.86 ) mGycm TECHNIQUE: Transaxial imaging was performed following intravenous administration of 100CC IV Isovue 300. Individualized dose optimization techniques were used for this CT. COMPARISON: CT chest 08/06/2018. FINDINGS: There are old partially healed right anterior lateral fourth through sixth rib fractures and left third through seventh fractures which demonstrate sclerosis and periosteal reaction. There is a left internal jugular venous catheter, tip is in the right atrium near the SVC junction. There is mild cardiomegaly. There is a stable small pericardial effusion. There is significant new patchy right lower lobe infiltrate. There are mild infiltrates within the lingula and right middle lobe and left lower lobe.. There is mild right basilar subsegmental atelectasis Normal mediastinum. Normal hilar regions. Normal enhanced pulmonary arteries. Normal aorta arch and descending thoracic aorta. There are mild degenerative changes of the thoracic and lumbar spine There are bilateral renal cysts. CT/Chest WITH Contrast IMPRESSION: significant new patchy right lower lobe infiltrate. There are mild infiltrates within the lingula and right middle lobe and left lower lobe secondary to pneumonia possible aspiration.. Old partially healed bilateral rib fractures as above Left internal jugular venous catheter tip in the right atrium near the SVC junction Stable small pericardial effusion Mild right basilar subsegmental atelectasis Bilateral renal cysts Electronically Signed: Bairon Davis, at 17:58 EDT Tel , Service support ,
--- NOTE | 2019-01-19 15:48 | ED.VISSUMM ---
- ER Visit Summary Date of Service: 01/19/19 Chief Complaint: Right arm pain History of Present Illness: The patient is a 58 F presenting with right arm pain. She states this started during dialysis. She was able to complete half of her dialysis. She complains of pain diffusely of her right arm as well as tingling sensation in her fingers. She denies weakness. She has history of previous subclavian vein stenosis that was treated in October per Dr. Payan. She denies chest pain or shortness of breath. Denies other complaints. Physical Examination: Vitals are stable. Patient is afebrile. Alert no acute distress. HEENT exam is unremarkable. Neck is supple. Lungs are clear and equal bilaterally. Heart is regular rate and rhythm. Abdomen is soft nontender nondistended. Extremities right arm fistula, positive thrill Skin is warm and dry. No focal neurologic deficit. NIH 0. Remainder of exam is unremarkable. Emergency Department Course and Treatment: Patient was given fentanyl, Zofran. CBC shows white count 16.5. Chemistries show glucose 125, BUN 31, creatinine 2.18. INR 1.1. CT chest with IV contrast shows significant new patchy right lower lobe infiltrate. There are mild infiltrates within the lingula and right middle lobe and left lower lobe secondary to pneumonia possible aspiration. Old partially healed bilateral rib fractures as above. Left internal jugular venous catheter tip in the right atrium near the SVC junction. Stable small pericardial effusion. Mild right basilar subsegmental atelectasis. Bilateral renal cysts. Blood cultures were sent. Patient was given Rocephin, Zithromax IV. Discussed with Dr. Scott covering for Dr. Payan, Dr. Lew and Dr. Gallegos. She will be admitted. Disposition: Admission Impression: HCAP, end-stage renal disease, right arm pain This note was generated with [employer] dictation software. It may contain incorrect words, spelling, and punctuation that were not noted in review of the chart prior to signing ED Disposition - Plan for ED Patient: Referrals: Marcela Kerr MD [Primary Care Provider] -
[2019-01-19] MEDS: Ondansetron 4 MG/2 ML Vial IV (15:49)
[2019-01-19] MEDS: fentaNYL 100 MCG/2 ML Ampul 50 MCG IV ×2 (15:49→17:48)
[2019-01-19 15:52] LABS: Absolute Lymphocyte Count 0.81 X10^3/uL (0.83-4.51); Absolute Neutrophil Count 14.1 X10^3/uL (2.0-7.7); Basophil# 0.07 X10^3/uL; Basophil% 0.4 % (0-1); Hematocrit 38.3 % (37-47); Hemoglobin 12.6 g/dL (12.0-15.0); Lymphocyte # 0.81 X10^3/ul (4.0); Lymphocyte % 4.9 % (19-41); Mean Corp Hgb Conc 32.9 g/dL (32-36); Mean Corpuscular Hgb 28.3 pg (27.0-32.0); Mean Corpuscular Volume 86.1 fL (81-99); Mean Platelet Vol. 10.5 fl (6.2-12.0); Monocyte% 6.1 % (0-10); NRBC Flagged by Analyzer 0 % (0-5); Neutrophil # 14.07 X10^3/uL (2.7-7.7); Neutrophil % 85.3 % (47-70); Platelet Count 155 K/mm3 (150-450); RBC Distribution Width CV 14.3 % (11.6-14.6); RBC Distribution Width SD 45.1 fl (35.1-43.9); Red Blood Count 4.45 M/mm3 (4.2-5.4); White Blood Count 16.5 K/mm3 (4.4-11.0)
[2019-01-19 16:09] LABS: Anion Gap 5 (5-15); BUN 31 mg/dL (7-18); BUN/Creat Ratio 14.2 RATIO (10-20); Calcium,Total 8.6 mg/dL (8.5-10.1); Chloride 99 mmol/L (98-107); Creatinine, Serum 2.18 mg/dL (0.55-1.02); EST Glomerular Filtration Rate 25 mL/min (>60); Est Glom Filt Rate - Afr Amer 30 mL/min (>60); Estimated Creatinine Clearance 23.84 ml/min; Glucose 125 mg/dL (74-106); Potassium 4.7 mmol/L (3.5-5.1); Sodium Level 136 mmol/L (136-145)
[2019-01-19 16:32] LABS: International Normalized Ratio 1.1; Partial Thromboplast Time 45.8 Seconds (24.1-36.2)
[2019-01-19 17:45] VITALS: BP 123/60; RESP 16; O2SAT 97
[2019-01-19] MEDS: Ceftriaxone 1 GM/50 ML BAG IV (18:55)
[2019-01-19 19:30] VITALS: BP 123/54; PULSE 60; RESP 18; O2SAT 97
[2019-01-19 19:59] VITALS: BMI 43.3
[2019-01-19 20:00] VITALS: BP 130/72; PULSE 59; RESP 16; TEMP 36.3; O2SAT 99
[2019-01-19 20:23] VITALS: BMI 43.3
--- NOTE | 2019-01-19 21:23 | PCM.HP.STD ---
Problem List (1) Neuropathic pain of left hand Status: Acute History of Present Illness Date of Admission: 01/19/19 Chief Complaint: Right hand and forearm pain The patient is a 58 year old F with a history of end-stage renal disease on hemodialysis, type 2 diabetes and CIDP for which she is on steroids. For the last 2 weeks has been having pain and numbness in the right hand and forearm which appeared to be improving however during dialysis today suddenly became very severe. Patient has never been diagnosed with carpal tunnel syndrome per se. On disability now up to a year ago at work until a lot of typing on the keyboard. 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) G61.81 Hyperlipidemia (Chronic) E78.5 Chronic kidney disease (Chronic) N18.9 HTN (hypertension) (Chronic) I10 Obesity (Chronic) E66.9 DM2 (diabetes mellitus, type 2) (Chronic) E11.9 Anemia D64.9 GERD (gastroesophageal reflux disease) K21.9 Allergies latex Allergy (Verified 01/19/19 14:34) Hives Sulfa (Sulfonamide Antibiotics) Allergy (Verified 01/19/19 14:34) Rash codeine Adverse Reaction (Verified 01/19/19 14:34) Other CONFUSION Home Medications: Ambulatory Orders Medication Instructions Recorded Montelukast [Singulair] 10 mg PO QHS 10/29/13 Gabapentin [Neurontin] 300 mg PO QHS 06/14/18 Sertraline HCl 125 mg PO DAILY 06/14/18 Calcium Carbonate 500 mg PO DAILY 06/20/18 Pantoprazole Sodium [Protonix] 20 mg PO DAILY 06/20/18 Atorvastatin Calcium [Lipitor] 20 mg PO QHS 07/28/18 Carvedilol [Coreg (Beta [place])] 25 mg PO BID 07/28/18 busPIRone [Buspar] 5 mg PO TID 07/28/18 Ferrous Sulfate 325 mg PO TIDCM tab 08/24/18 Hydrocortisone [Anusol Hc] 25 mg RECTAL BID PRN PRN suppos. 08/24/18 hydralazine 50 mg tablet 50 mg PO TID 09/19/18 Insulin Glargine,Hum.rec.anlog 37 unit SQ DAILY 10/04/18 [Basaglar Kwikpen U-100] Insulin Lispro [Humalog Kwikpen] 12 unit SQ TID 10/04/18 Losartan Potassium [Cozaar] 100 mg PO QHS 10/04/18 predniSONE tablet 30 mg PO 1200 10/04/18 Ondansetron [Zofran Odt] 4 mg PO Q8H PRN PRN #10 tablet 10/10/18 Acetaminophen [Tylenol Tablet] 650 mg PO Q6H PRN PRN tablet 11/01/18 Furosemide [Lasix] 80 mg PO BID #0 11/01/18 Guaifenesin [Mucinex] 1,200 mg PO BID tablet 11/01/18 Melatonin 3 mg PO QHS PRN 01/19/19 Sevelamer Carbonate [Renvela] 800 mg PO TID 01/19/19 Surgical History: Surgical History (Last Updated 09/19/18 @ 07:24 by Rema Ocampo) History of cholecystectomy Z90.49 History of tubal ligation Z98.51 Surgical History: cholecystectomy, - - Tubal ligation Psychiatric History: Anxiety, Depression [employer] History: No pertinent [employer] history Smoking Status: Never smoker - *Family History Maternal Family History: Family History (Last Updated 09/19/18 @ 07:27 by Rema Ocampo) Father Diabetes Mother Heart disease History Items: Cancer, Heart Disease Paternal Family History: Family History (Last Updated 09/19/18 @ 07:27 by Rema Ocampo) Father Diabetes Mother Heart disease History Items: Diabetes, Heart Disease, Hypertension Sibling Family History: Family History (Last Updated 09/19/18 @ 07:27 by Rema Ocampo) Father Diabetes Mother Heart disease History Items: Diabetes Review of Systems Constitutional: Denies: Chills, Malaise, Fatigue Cardiovascular: Reports: Edema. Denies: Chest Pain Respiratory: Denies: Shortness of Breath Neurological: Reports: Numbness, Tingling Comment: Other systems reviewed and essentially negative VTE Information - Inpt Only VTE Present on Admission: No VTE Mechan Device Prophylaxis: None VTE Pharm Prophylaxis ordered?: No Patient Problems: Active and Suspected Problems (Last Updated 09/19/18 @ 07:24 by Rema Ocampo) Neuropathic pain of left hand (Acute) - Physical Exam General: Alert, Oriented x3, Cooperative, - - Patient in severe painful distress and restless HEENT: Atraumatic, PERRLA Oral: Moist Mucosa, No Gingival or Mucosal Lesions/ Ulcerations Neck: Supple, No JVD Lungs: Clear to auscultation, Normal air movement Cardiovascular: Regular rate, Regular Rhythm, Normal S1, Normal S2 Abdomen: Bowel Sounds Present, Obese Extremities: - - Right hand tender but no swelling, slightly cool to the touch. Tinel's and Phalen sign positive. There is weakness of handgrip Skin: No rashes, No breakdown Neurological: Cranial nerves II-XII grossly intact Psych/Mental Status: Normal Affect, Appropriate Vital Signs Temp Pulse Resp BP Pulse Ox 97.4 F L 59 L 16 130/72 H 99 01/19/19 20:00 01/19/19 20:00 01/19/19 20:00 01/19/19 20:00 01/19/19 20:00 Oxygen Delivery Method Room Air Weight: 111 kg Body Mass Index (BMI) 43.3 Laboratory Tests Past 24 Hrs 01/19/19 01/19/19 01/19/19 14:45 14:45 14:45 WBC 16.5 H RBC 4.45 Hgb 12.6 Hct 38.3 MCV 86.1 MCH 28.3 MCHC 32.9 RDW Std Deviation 45.1 H RDW Coeff of [place] 14.3 Plt Count 155 MPV 10.5 Immature Gran % (Auto) 3.300 H Neut % (Auto) 85.3 H Lymph % (Auto) 4.9 L [place] % (Auto) 6.1 Eos % (Auto) 0.0 Baso % (Auto) 0.4 Absolute Neuts (auto) 14.1 H Absolute Lymphs (auto) 0.81 L Nucleated RBC % 0 PT 14.0 INR 1.1 APTT 45.8 H Sodium 136 Potassium 4.7 Chloride 99 Carbon Dioxide 32.0 Anion Gap 5 BUN 31 H Creatinine 2.18 H Estim Creat Clear Calc 23.84 Est GFR (MDRD) Af Amer 30 L Est GFR (MDRD) Non-Af 25 L BUN/Creatinine Ratio 14.2 Glucose 125 H Calcium 8.6 Assessment/Plan All Active Problems (Last Updated 09/19/18 @ 07:24 by Rema Ocampo) Neuropathic pain of left hand (Acute) ESRD (end stage renal disease) (Acute) Pneumonia (Acute) NOEL (acute kidney injury) (Acute) Problem with dialysis access (Acute) Debility (Acute) 1. Severe right hand and forearm pain. Suspect carpal tunnel median neuropathy. Will start on high-dose steroids. Analgesics and increase Neurontin. Consult neurology. Occupational Therapy. Right wrist splints. 2. End-stage renal disease on hemodialysis. Patient received contrast for her CT angiogram. 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 Ensure hemodialysis tomorrow. 3. Type 2 diabetes. We will continue insulin. 4. Obesity. Lifestyle modifications. 5. CIDP at Code Visit OBSV E&M: [id number] Initial observation care L3
[2019-01-19 23:01] LABS: Bedside Glucose 147 mg/dL (70-110)
[2019-01-19 23:08] VITALS: PULSE 60
[2019-01-19] MEDS: Heparin Injection (Vial) 5,000 UNIT/ML VIAL 5000 UNIT SC (23:08)
[2019-01-19] MEDS: Losartan Potassium 100 MG Tablet PO (23:08)
[2019-01-19] MEDS: hydrALAZINE 50 MG Tablet PO ×2 (23:08)
[2019-01-19] MEDS: Carvedilol 25 MG Tablet PO (23:08)
[2019-01-19] MEDS: Gabapentin 300 MG Capsule PO (23:08)
[2019-01-19] MEDS: busPIRone 5 MG Tablet PO (23:08)
[2019-01-19] MEDS: 0.9% NaCl Peripheral Flush Adult/Peds IV (23:09)
[2019-01-19] MEDS: MethylPREDNISolone 125 MG/2 ML Vial 60 MG IV (23:16)
[2019-01-20 02:07] VITALS: BP 126/65; PULSE 60; RESP 16; TEMP 36.4; O2SAT 94
[2019-01-20] MEDS: Gabapentin 300 MG Capsule PO (05:07)
[2019-01-20] MEDS: MethylPREDNISolone 125 MG/2 ML Vial 60 MG IV (05:07)
[2019-01-20] MEDS: busPIRone 5 MG Tablet PO (05:07)
[2019-01-20] MEDS: HYDROmorphone 1 MG/ML Syringe 0.5 MG IV (05:07)
[2019-01-20] MEDS: Heparin Injection (Vial) 5,000 UNIT/ML VIAL 5000 UNIT SC (05:07)
[2019-01-20] MEDS: 0.9% NaCl Peripheral Flush Adult/Peds IV ×4 (05:08→12:23)
[2019-01-20 08:01] LABS: Erythrocyte Sedimentation Rate 21 mm/hr (0-30)
--- NOTE | 2019-01-20 08:04 | PN_ITS ---
Patient Problems: Active and Suspected Problems (Last Updated 09/19/18 @ 07:24 by Rema Ocampo) Neuropathic pain of left hand (Acute) Subjective: The patient is a 58-year-old female with a past medical history of end-stage renal disease on hemodialysis, type 2 diabetes mellitus and CIDP for which she is on steroids presented to the emergency department at [facility] on 01/19/2019 complaining of pain and paresthesias of the right hand and forearm for the preceding 2 weeks. On the day of admission while at dialysis the symptoms escalated. Vital signs at presentation to the emergency department were temperature 98.3, pulse rate 65, blood pressure 100/48, respiratory rate 17 and she was 97% saturated on room air. CBC was significant for an elevated white blood cell count at 16.5 with 85% neutrophils. Hemoglobin was 12.6 and the platelet count was 155,000. PT was 14 and the PTT was mildly increased at 4 5.8-likely secondary to heparin used at dialysis. Sodium was 4.7 and the serum bicarb was 32. BUN was 31 and the creatinine was 2.18. Random blood sugar was 125. A CT of the chest with contrast showed new patchy right lower lobe infiltrate with mild infiltrates in the lingula, right middle lobe and left lower lobe. The ER physician wanted her admitted to the hospital with a diagnosis of HCAP. She was admitted by the hospitalist with severe right hand and forearm pain suspected to be secondary to carpal tunnel syndrome. She was started on high-dose steroids, analgesics and Neurontin. - Physical Exam General: Alert, Oriented x3, Cooperative, - - Appears to be in pain. She is restless and moving her RUE around to try and get it pain free and comfortable HEENT: Atraumatic, PERRLA, EOMI Oral: Dry Mucosa Neck: No Nodes, Trachea Midline, - - She has a bruit over the subclavian on the right - due to AV fistula or to subclavian stenosis Lungs: Clear to auscultation Cardiovascular: Regular rate, Regular Rhythm, Normal S1, Normal S2, No rub noted, No Gallop Abdomen: Bowel Sounds Present, Soft, Non Tender, Non-Distended, Obese Extremities: - - The radial pulse in the RUE is very diminished/barely palpable. The right hand is cool to touch. when it is dependent is is hyperemic and when I elevate the RUE the hand blanches. There is a thrill over the AV fistula in the right upper arm. Neurological: Cranial nerves II-XII grossly intact - weakness in the LE's due to CIDP Psych/Mental Status: Normal Affect, Appropriate Vital Signs Temp Pulse Resp BP Pulse Ox 97.5 F L 60 16 126/65 H 94 01/20/19 02:07 01/20/19 02:07 01/20/19 02:07 01/20/19 02:07 01/20/19 02:07 Oxygen Delivery Method Room Air Weight: 244 lb 11.41 oz Body Mass Index (BMI) 43.3 Intake and Output for Last 24 Hours 01/18/19 01/19/19 01/20/19 23:59 23:59 23:59 Intake Total 356 / 856 720 / 720 Balance 356 / 856 720 / 720 Laboratory Tests Past 24 Hrs 01/19/19 01/19/19 01/19/19 14:45 14:45 14:45 WBC 16.5 H RBC 4.45 Hgb 12.6 Hct 38.3 MCV 86.1 MCH 28.3 MCHC 32.9 RDW Std Deviation 45.1 H RDW Coeff of [place] 14.3 Plt Count 155 MPV 10.5 Immature Gran % (Auto) 3.300 H Neut % (Auto) 85.3 H Lymph % (Auto) 4.9 L [place] % (Auto) 6.1 Eos % (Auto) 0.0 Baso % (Auto) 0.4 Absolute Neuts (auto) 14.1 H Absolute Lymphs (auto) 0.81 L Nucleated RBC % 0 ESR PT 14.0 INR 1.1 APTT 45.8 H Sodium 136 Potassium 4.7 Chloride 99 Carbon Dioxide 32.0 Anion Gap 5 BUN 31 H Creatinine 2.18 H Estim Creat Clear Calc 23.84 Est GFR (MDRD) Af Amer 30 L Est GFR (MDRD) Non-Af 25 L BUN/Creatinine Ratio 14.2 Glucose 125 H Calcium 8.6 Total Bilirubin AST ALT Alkaline Phosphatase Total Protein Albumin 01/20/19 01/20/19 06:30 06:30 WBC RBC Hgb Hct MCV MCH MCHC RDW Std Deviation RDW Coeff of [place] Plt Count MPV Immature Gran % (Auto) Neut % (Auto) Lymph % (Auto) [place] % (Auto) Eos % (Auto) Baso % (Auto) Absolute Neuts (auto) Absolute Lymphs (auto) Nucleated RBC % ESR 21 PT INR APTT Sodium Pending Potassium Pending Chloride Pending Carbon Dioxide Pending Anion Gap Pending BUN Pending Creatinine Pending Estim Creat Clear Calc Est GFR (MDRD) Af Amer Pending Est GFR (MDRD) Non-Af Pending BUN/Creatinine Ratio Pending Glucose Pending Calcium Pending Total Bilirubin Pending AST Pending ALT Pending Alkaline Phosphatase Pending Total Protein Pending Albumin Pending POC Glucose 01/19/19 22:40 POC Glucose 147 H Medical Necessity - Tobacco Use Smoking Status: Never smoker Assessment/Plan All Active Problems (Last Updated 09/19/18 @ 07:24 by Rema Ocampo) Neuropathic pain of left hand (Acute) ESRD (end stage renal disease) (Acute) Pneumonia (Acute) NOEL (acute kidney injury) (Acute) Problem with dialysis access (Acute) Debility (Acute) Impressions * severe pain in the RUE with diminished pulse, paresthesias, [id number] with dependent position and blanching with elevation - suspect due to Steal S from the AV fistula or subclavian stenosis * Hyperkalemia * CIDP - at a NH and on Prednisone 30 mg daily now * PNA - ruled out * Hyperkalemia - normal last night, suspect due to ischemia with tissue damage due to hypoperfusion * Diabetes mellitus type 2 * Morbid obesity * Hypertension * End-stage renal disease on hemodialysis * Chronic diastolic congestive heart failure with EF of 65% in September 2018 * Abnormal echocardiogram in September 2018 with moderate concentric left ventricular hypertrophy, mild left atrial enlargement, mild diffuse mitral valve thickening with mild mitral valve stenosis, 2+ MR, mild TR and an elevated right ventricular pressure at 49 consistent with moderate pulmonary hypertension. There was also evidence of diastolic dysfunction * Moderate pulmonary hypertension Place on telemetry bicarb, D50, insulin and Kayexalate Discussed with hospitalist ritu at [facility]-he has excepted Ms. Vences in transfer. Will likely need HD once she is transferred.....if there is going to be any delay will discuss with Dr. Lew and arrange HD at [facility] until she is transferred.
[2019-01-20 08:23] LABS: AST(SGOT) 15 U/L (15-37); Alanine Aminotransfer ALT/SGPT 28 U/L (13-56); Albumin, Serum 3.1 g/dL (3.2-5.0); Alkaline Phosphatase 109 U/L (45-117); Anion Gap 9 (5-15); BUN 46 mg/dL (7-18); Calcium,Total 8.4 mg/dL (8.5-10.1); Chloride 95 mmol/L (98-107); Creatinine, Serum 2.87 mg/dL (0.55-1.02); EST Glomerular Filtration Rate 18 mL/min (>60); Est Glom Filt Rate - Afr Amer 22 mL/min (>60); Estimated Creatinine Clearance 18.11 ml/min; Globulin 3.2 g/dL (2.2-4.2); Glucose 179 mg/dL (74-106); Potassium 6.2 mmol/L (3.5-5.1); Protein, Total 6.3 g/dL (6.4-8.2); Sodium Level 135 mmol/L (136-145)
[2019-01-20 08:25] VITALS: BP 130/55; PULSE 59; RESP 16; TEMP 36.6; O2SAT 96
[2019-01-20] MEDS: SEVELAMER CARBONATE 800 MG TABLET PO ×2 (08:41→12:22)
[2019-01-20] MEDS: Sertraline 50 MG Tablet 125 MG PO (08:41)
[2019-01-20] MEDS: Carvedilol 25 MG Tablet PO (08:42)
[2019-01-20] MEDS: Insulin Lispro 100 UNIT/ML INSULN.PEN 8 UNIT SC ×2 (08:45→12:22)
[2019-01-20 09:10] LABS: Bedside Glucose 191 mg/dL (70-110)
[2019-01-20] MEDS: Dextrose 50%-Water 25 GM/50 ML DISP.SYRIN IV (10:22)
--- NOTE | 2019-01-20 10:22 | DS.PCM_ITS ---
Discharge Date and Diagnosis - Problem List Patient Problems: Active and Suspected Problems (Last Updated 09/19/18 @ 07:24 by Rema Ocampo) Neuropathic pain of left hand (Acute) Date of Admission: 01/19/19 Date of Discharge: 01/20/19 - Primary Discharge Diagnosis Active and Suspected Problems (Last Updated 09/19/18 @ 07:24 by Rema Ocampo) Ischemic RUE - possibly due to vascular steal versus arterial stenosis Hyperkalemia HCAP - ruled out - Secondary Discharge Diagnosis Chronic Problems (Last Updated 09/19/18 @ 07:24 by Rema Ocampo) Morbid obesity (Chronic) Chronic diastolic CHF (congestive heart failure) (Chronic) with EF of 65% in September 2018 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)-on a prednisone taper Hyperlipidemia (Chronic) End-stage renal disease (Chronic) on hemodialysis HTN (hypertension) (Chronic) DM2 (diabetes mellitus, type 2) (Chronic) Moderate concentric left ventricular hypertrophy Moderate pulmonary hypertension with a RV systolic estimated at 49 Diastolic dysfunction Mild mitral valve stenosis Hospital Course and Treatment Imaging Results: Clinical Impression(s) from Imaging Studies Chest CT 01/19/19 15:33 IMPRESSION: significant new patchy right lower lobe infiltrate. There are mild infiltrates within the lingula and right middle lobe and left lower lobe secondary to pneumonia possible aspiration.. Old partially healed bilateral rib fractures as above Left internal jugular venous catheter tip in the right atrium near the SVC junction Stable small pericardial effusion Mild right basilar subsegmental atelectasis Bilateral renal cysts Electronically Signed: Bairon Davis, at 17:58 EDT Tel , Service support , Laboratory Tests 01/20/19 01/20/19 01/20/19 Range/Units 08:39 06:30 06:30 WBC (4.4-11.0) K/mm3 RBC (4.2-5.4) M/mm3 Hgb (12.0-15.0) g/dL Hct (37-47) % MCV (81-99) fL MCH (27.0-32.0) pg MCHC (32-36) g/dL RDW Std Deviation (35.1-43.9) fl RDW Coeff of Perico (11.6-14.6) % Plt Count (150-450) K/mm3 MPV (6.2-12.0) fl Immature Gran % (Auto) (0.0-0.9) % Neut % (Auto) (47-70) % Lymph % (Auto) (19-41) % [place] % (Auto) (0-10) % Eos % (Auto) (0-5) % Baso % (Auto) (0-1) % Absolute Neuts (auto) (2.0-7.7) X10^3/uL Absolute Lymphs (auto) (0.83-4.51) X10^3/uL Nucleated RBC % (0-5) % ESR 21 (0-30) mm/hr PT (11.7-14.9) SECONDS INR APTT (24.1-36.2) Seconds Sodium 135 L (136-145) mmol/L Potassium 6.2 H* (3.5-5.1) mmol/L Chloride 95 L (98-107) mmol/L Carbon Dioxide 31.0 (21.0-32.0) mmol/L Anion Gap 9 (5-15) BUN 46 H (7-18) mg/dL Creatinine 2.87 H (0.55-1.02) mg/dL Estim Creat Clear Calc 18.11 ml/min Est GFR (MDRD) Af Amer 22 L (>60) mL/min Est GFR (MDRD) Non-Af 18 L (>60) mL/min BUN/Creatinine Ratio 16.0 (10-20) RATIO Glucose 179 H (74-106) mg/dL Calcium 8.4 L (8.5-10.1) mg/dL Total Bilirubin 0.40 (0.20-1.00) mg/dL AST 15 (15-37) U/L ALT 28 (13-56) U/L Alkaline Phosphatase 109 (45-117) U/L Total Protein 6.3 L (6.4-8.2) g/dL Albumin 3.1 L (3.2-5.0) g/dL Globulin 3.2 (2.2-4.2) g/dL Albumin/Globulin Ratio 1.0 (0.9-2.4) RATIO POC Glucose 191 H (70-110) mg/dL 01/19/19 01/19/19 01/19/19 Range/Units 22:40 14:45 14:45 WBC (4.4-11.0) K/mm3 RBC (4.2-5.4) M/mm3 Hgb (12.0-15.0) g/dL Hct (37-47) % MCV (81-99) fL MCH (27.0-32.0) pg MCHC (32-36) g/dL RDW Std Deviation (35.1-43.9) fl RDW Coeff of Perico (11.6-14.6) % Plt Count (150-450) K/mm3 MPV (6.2-12.0) fl Immature Gran % (Auto) (0.0-0.9) % Neut % (Auto) (47-70) % Lymph % (Auto) (19-41) % [place] % (Auto) (0-10) % Eos % (Auto) (0-5) % Baso % (Auto) (0-1) % Absolute Neuts (auto) (2.0-7.7) X10^3/uL Absolute Lymphs (auto) (0.83-4.51) X10^3/uL Nucleated RBC % (0-5) % ESR (0-30) mm/hr PT 14.0 (11.7-14.9) SECONDS INR 1.1 APTT 45.8 H (24.1-36.2) Seconds Sodium 136 (136-145) mmol/L Potassium 4.7 (3.5-5.1) mmol/L Chloride 99 (98-107) mmol/L Carbon Dioxide 32.0 (21.0-32.0) mmol/L Anion Gap 5 (5-15) BUN 31 H (7-18) mg/dL Creatinine 2.18 H (0.55-1.02) mg/dL Estim Creat Clear Calc 23.84 ml/min Est GFR (MDRD) Af Amer 30 L (>60) mL/min Est GFR (MDRD) Non-Af 25 L (>60) mL/min BUN/Creatinine Ratio 14.2 (10-20) RATIO Glucose 125 H (74-106) mg/dL Calcium 8.6 (8.5-10.1) mg/dL Total Bilirubin (0.20-1.00) mg/dL AST (15-37) U/L ALT (13-56) U/L Alkaline Phosphatase (45-117) U/L Total Protein (6.4-8.2) g/dL Albumin (3.2-5.0) g/dL Globulin (2.2-4.2) g/dL Albumin/Globulin Ratio (0.9-2.4) RATIO POC Glucose 147 H (70-110) mg/dL 01/19/19 Range/Units 14:45 WBC 16.5 H (4.4-11.0) K/mm3 RBC 4.45 (4.2-5.4) M/mm3 Hgb 12.6 (12.0-15.0) g/dL Hct 38.3 (37-47) % MCV 86.1 (81-99) fL MCH 28.3 (27.0-32.0) pg MCHC 32.9 (32-36) g/dL RDW Std Deviation 45.1 H (35.1-43.9) fl RDW Coeff of Perico 14.3 (11.6-14.6) % Plt Count 155 (150-450) K/mm3 MPV 10.5 (6.2-12.0) fl Immature Gran % (Auto) 3.300 H (0.0-0.9) % Neut % (Auto) 85.3 H (47-70) % Lymph % (Auto) 4.9 L (19-41) % [place] % (Auto) 6.1 (0-10) % Eos % (Auto) 0.0 (0-5) % Baso % (Auto) 0.4 (0-1) % Absolute Neuts (auto) 14.1 H (2.0-7.7) X10^3/uL Absolute Lymphs (auto) 0.81 L (0.83-4.51) X10^3/uL Nucleated RBC % 0 (0-5) % ESR (0-30) mm/hr PT (11.7-14.9) SECONDS INR APTT (24.1-36.2) Seconds Sodium (136-145) mmol/L Potassium (3.5-5.1) mmol/L Chloride (98-107) mmol/L Carbon Dioxide (21.0-32.0) mmol/L Anion Gap (5-15) BUN (7-18) mg/dL Creatinine (0.55-1.02) mg/dL Estim Creat Clear Calc ml/min Est GFR (MDRD) Af Amer (>60) mL/min Est GFR (MDRD) Non-Af (>60) mL/min BUN/Creatinine Ratio (10-20) RATIO Glucose (74-106) mg/dL Calcium (8.5-10.1) mg/dL Total Bilirubin (0.20-1.00) mg/dL AST (15-37) U/L ALT (13-56) U/L Alkaline Phosphatase (45-117) U/L Total Protein (6.4-8.2) g/dL Albumin (3.2-5.0) g/dL Globulin (2.2-4.2) g/dL Albumin/Globulin Ratio (0.9-2.4) RATIO POC Glucose (70-110) mg/dL none Operations: None, - - dialysis catheter placement Procedures: None Summary of Care Provided: The patient is a 58-year-old female with a past medical history of end- stage renal disease on hemodialysis, type 2 diabetes mellitus and CIDP for which she is on steroids presented to the emergency department at [facility] on 01/19/2019 complaining of pain and paresthesias of the right hand and forearm for the preceding 2 weeks. On the day of admission while at dialysis the symptoms escalated. Vital signs at presentation to the emergency department were temperature 98.3, pulse rate 65, blood pressure 100/48, respiratory rate 17 and she was 97% saturated on room air. CBC was significant for an elevated white blood cell count at 16.5 with 85% neutrophils. Hemoglobin was 12.6 and the platelet count was 155,000. PT was 14 and the PTT was mildly increased at 45.8-likely secondary to heparin used at dialysis. Sodium was 4.7 and the serum bicarb was 32. BUN was 31 and the creatinine was 2.18. Random blood sugar was 125. A CT of the chest with contrast showed new patchy right lower lobe infiltrate with mild infiltrates in the lingula, right middle lobe and left lower lobe per the radiologist but, the infiltrates are minimal and the pt is afebrile with no cough, no fever and no SOB. The ER physician wanted her admitted to the hospital with a diagnosis of HCAP. She was admitted by the hospitalist with severe right hand and forearm pain suspected to be secondary to carpal tunnel syndrome. She was started on high-dose steroids, analgesics and Neurontin was continued. The following morning she continued to c/o severe pain in the RUE which was somewhat improved with Dilaudid IV. she was restless in bed and moving the RUE around trying to get the pain to go away. On PE the R hand was cool to touch and hyperemic/red with dependent position. When the arm is elevated the hand blanches. There is a bruit at the distal clavicle. She has a thrill and a very strong pulse over the R brachial artery. Potassium which was 4.7 at admission is now 6.2 and I suspect this is due to ischemia of the R hand with tissue destruction. I was in contact with the hospitalist ritu at [facility] and he has accepted transfer and will consult vascular surgery. She was placed on telemetry and sodium bicarb, D50 W, insulin and Kayexalate were ordered to control the potassium. If there is going to be a delay in transfer will need to arrange dialysis prior to discharge. Patient is normally on a Monday, and Monday schedule but only received a half dialysis on 01/19/2019. This note was generated with [employer] dictation software. It may contain incorrect words, spelling, and punctuation that were not noted in checking the note before signing. Patient Problems: Active and Suspected Problems (Last Updated 09/19/18 @ 07:24 by Rema Ocampo) Neuropathic pain of left hand (Acute) - Physical Exam Vital Signs Temp Pulse Resp BP Pulse Ox 97.5 F L 60 16 126/65 H 94 01/20/19 02:07 01/20/19 02:07 01/20/19 02:07 01/20/19 02:07 01/20/19 02:07 Oxygen Delivery Method Room Air Weight: 245 lb 13.047 oz Body Mass Index (BMI) 43.3 Intake and Output for Last 24 Hours 01/18/19 01/19/19 01/20/19 23:59 23:59 23:59 Intake Total 356 / 856 720 / 720 Balance 356 / 856 720 / 720 Laboratory Tests Past 24 Hrs 01/19/19 01/19/19 01/19/19 14:45 14:45 14:45 WBC 16.5 H RBC 4.45 Hgb 12.6 Hct 38.3 MCV 86.1 MCH 28.3 MCHC 32.9 RDW Std Deviation 45.1 H RDW Coeff of Perico 14.3 Plt Count 155 MPV 10.5 Immature Gran % (Auto) 3.300 H Neut % (Auto) 85.3 H Lymph % (Auto) 4.9 L [place] % (Auto) 6.1 Eos % (Auto) 0.0 Baso % (Auto) 0.4 Absolute Neuts (auto) 14.1 H Absolute Lymphs (auto) 0.81 L Nucleated RBC % 0 ESR PT 14.0 INR 1.1 APTT 45.8 H Sodium 136 Potassium 4.7 Chloride 99 Carbon Dioxide 32.0 Anion Gap 5 BUN 31 H Creatinine 2.18 H Estim Creat Clear Calc 23.84 Est GFR (MDRD) Af Amer 30 L Est GFR (MDRD) Non-Af 25 L BUN/Creatinine Ratio 14.2 Glucose 125 H Calcium 8.6 Total Bilirubin AST ALT Alkaline Phosphatase Total Protein Albumin Globulin Albumin/Globulin Ratio 01/20/19 01/20/19 06:30 06:30 WBC RBC Hgb Hct MCV MCH MCHC RDW Std Deviation RDW Coeff of Perico Plt Count MPV Immature Gran % (Auto) Neut % (Auto) Lymph % (Auto) [place] % (Auto) Eos % (Auto) Baso % (Auto) Absolute Neuts (auto) Absolute Lymphs (auto) Nucleated RBC % ESR 21 PT INR APTT Sodium 135 L Potassium 6.2 H* Chloride 95 L Carbon Dioxide 31.0 Anion Gap 9 BUN 46 H Creatinine 2.87 H Estim Creat Clear Calc 18.11 Est GFR (MDRD) Af Amer 22 L Est GFR (MDRD) Non-Af 18 L BUN/Creatinine Ratio 16.0 Glucose 179 H Calcium 8.4 L Total Bilirubin 0.40 AST 15 ALT 28 Alkaline Phosphatase 109 Total Protein 6.3 L Albumin 3.1 L Globulin 3.2 Albumin/Globulin Ratio 1.0 POC Glucose 01/20/19 01/19/19 08:39 22:40 POC Glucose 191 H 147 H Home Medications: Medications to take at Discharge Montelukast [Singulair] 10 mg PO QHS 10/29/13 Gabapentin [Neurontin] 300 mg PO QHS 06/14/18 Sertraline HCl 125 mg PO DAILY 06/14/18 Calcium Carbonate 500 mg PO DAILY 06/20/18 Pantoprazole Sodium [Protonix] 20 mg PO DAILY 06/20/18 Atorvastatin Calcium [Lipitor] 20 mg PO QHS 07/28/18 Carvedilol [Coreg (Beta Shannon)] 25 mg PO BID 07/28/18 busPIRone [Buspar] 5 mg PO TID 07/28/18 Ferrous Sulfate 325 mg PO TIDCM tab 08/24/18 Hydrocortisone [Anusol Hc] 25 mg RECTAL BID PRN PRN suppos. 08/24/18 hydralazine 50 mg tablet 50 mg PO TID 09/19/18 Insulin Glargine,Hum.rec.anlog [Basaglar Kwikpen U-100] 37 unit SQ DAILY 10/04/18 Insulin Lispro [Humalog Kwikpen] 12 unit SQ TID 10/04/18 Losartan Potassium [Cozaar] 100 mg PO QHS 10/04/18 predniSONE tablet 30 mg PO 1200 10/04/18 Ondansetron [Zofran Odt] 4 mg PO Q8H PRN PRN #10 tablet 10/10/18 Acetaminophen [Tylenol Tablet] 650 mg PO Q6H PRN PRN tablet 11/01/18 Furosemide [Lasix] 80 mg PO BID #0 11/01/18 Guaifenesin [Mucinex] 1,200 mg PO BID tablet 11/01/18 Melatonin 3 mg PO QHS PRN 01/19/19 Sevelamer Carbonate [Renvela] 800 mg PO TID 01/19/19 Primary Care Physician: Marcela Kerr MD [Primary Care Provider] - Minutes spent on discharge:: 45 Patient Condition:: Guarded Medical Necessity - Tobacco Use Smoking Status: Never smoker Tobacco Use: Non-smoker Meaningful Use Info Meaningful Use Diagnoses (Choose all that apply): None applicable Code Visit Inpatient E&M: 63232 Disch Hosp
[2019-01-20] MEDS: Sodium Polystyrene Sulfonate 15 GM/60 ML UDC 30 GM PO (10:23)
[2019-01-20] MEDS: Insulin Lispro 100 UNIT/ML INSULN.PEN SC (10:28)
[2019-01-20] MEDS: Sodium Bicarbonate 8.4% 50 ML Syringe 50 MEQ IV (10:31)
[2019-01-20] MEDS: HYDROmorphone 1 MG/ML Syringe IV (10:49)
[2019-01-20 10:56] VITALS: PULSE 61
[2019-01-20] MEDS: predniSONE 20 MG Tablet 30 MG PO (12:06)
[2019-01-20 12:30] LABS: Bedside Glucose 287 mg/dL (70-110)
[2019-01-20 12:45] VITALS: BP 135/70; PULSE 69; RESP 16; TEMP 36.3; O2SAT 97
--- NOTE | 2019-01-20 13:08 | NURSING ---
report called to Crissy at [facility] at [facility].
== END 2019-01-20 14:18 | disposition short-term general hospital (02) | DRG 314 ==
LOC: ED 15:15 → MS3 01-20 06:36
PROVIDERS: Admitting Provider Internal Medicine; Emergency Provider Emergency Medicine; Family Provider Internal Medicine Geriatric Medicine; PCP Internal Medicine Geriatric Medicine; Referring Provider Internal Medicine; Visit Provider Internal Medicine
DX: T82.898A Other specified complication of vascular prosthetic devices, implants and grafts, initial encounter (principal); N18.6 End stage renal disease; G61.81 Chronic inflammatory demyelinating polyneuritis; I50.32 Chronic diastolic (congestive) heart failure; I13.2 Hypertensive heart and chronic kidney disease with heart failure and with stage 5 chronic kidney disease, or end stage renal disease; Z68.41 Body mass index [BMI] 40.0-44.9, adult; I77.1 Stricture of artery; E87.5 Hyperkalemia; Z99.2 Dependence on renal dialysis; E11.22 Type 2 diabetes mellitus with diabetic chronic kidney disease; E66.01 Morbid (severe) obesity due to excess calories; E78.5 Hyperlipidemia, unspecified; I27.20 Pulmonary hypertension, unspecified; Z79.4 Long term (current) use of insulin
CPT/HCPCS: 36415; 71260; 80048; 80053; 82962; 85025; 85610; 85652; 85730; 87040; 99285; J7050; Q9967; A4216; J2405

== ENCOUNTER → 2019-02-08 | Outpatient (CLI) | payer OTHER, MEDICAID, SELFPAY ==
[2019-01-19 19:59] VITALS: BMI 43.3
--- NOTE | 2019-02-08 12:49 | VDUE_ITS ---
Reason For Study: Chronic kidney disease Right Arm Left Arm Right Cephalic Vein at the wrist measures Left Cephalic Vein at the wrist measures 0.14 x 0.15 cm. 0.24 x 0.23 cm. Right Cephalic Vein in the forearm measures Left Cephalic Vein in the forearm measures 0.32 x 0.38 cm. 0.42 x 0.45 cm. Right Cephalic Vein below antecub measures Left Cephalic Vein below antecub measures 0.31 x 0.31 cm. 0.38 x 0.37 cm. Right Cephalic Vein above antecub measures Left Cephalic Vein above antecub measures 0.52 x 0.56 cm. 0.50 x 0.53 cm. Right Cephalic Vein mid bicep measures 0.48 Left Cephalic Vein at mid bicep measures x 0.45 cm. 0.48 x 0.49 cm. Right Cephalic Vein at the shoulder measures Left Cephalic Vein at the shoulder measures 0.37 x 0.38 cm. 0.52 x 0.49 cm. Right Basilic Vein at the origin measures Basilic vein at origin measures 0.28 x 0.29 0.54 x 0.53 cm. cm. Right Basilic Vein mid bicep measures 0.45 x Basilic vein at bicep measures 0.33 x 0.41 0.48 cm. cm. Right Basilic Vein above antecub measures Basilic vein above antecub measures 0.35 x 0.62 x 0.64 cm. 0.37 cm. Right Brachial artery measures 0.36 x 0.41 Left Brachial artery measures 0.36 x 0.36 cm cm with a velocity of 101.3 cm/sec. with a velocity of 81.2 cm/sec. Right Radial artery measures 0.22 x 0.22 cm Left Radial artery measures 0.26 x 0.28 cm with a velocity of 61.7 cm/sec. with a velocity of 72.1 cm/sec. Interpretation Summary Patent and compressible bilateral cephalic and basilic veins with dimensions as noted. Bilateral brachial arteries demonstrate normal diameter and flow Right radial artery borderline diameter Left radial artery normal diameter History reveals previous right upper extremity brachial-cephalic hemodialysis fistula was ligated 01/21/19. Ordering Physician: Bairon Payan Referring Physician: Marcela Lassiter Performed By: Heather Castellano RVT ?
== END | disposition home or self-care (01) ==
LOC: CVS 12:48
PROVIDERS: Family Provider Internal Medicine Geriatric Medicine; PCP Internal Medicine Geriatric Medicine; Referring Provider Surgery; Visit Provider Surgery
DX: Z01.818 Encounter for other preprocedural examination (principal); N18.6 End stage renal disease
CPT/HCPCS: 93970

== ENCOUNTER 2019-03-02 14:13 | Emergency (ER) | payer OTHER, MEDICAID, SELFPAY ==
[2019-03-02 14:15] VITALS: BP 95/68; PULSE 85; RESP 22; TEMP 36.7; O2SAT 96; BMI 43.7
[2019-03-02] MEDS: fentaNYL 100 MCG/2 ML Ampul 25 MCG IV (14:46)
--- NOTE | 2019-03-02 15:00 | RAD_ITS ---
STUDY: X-RAY - LUMBAR SPINE REASON FOR EXAM: Female, 59 years old. Back pain. TECHNIQUE: 3 view(s) of the lumbar spine were obtained. COMPARISON: None FINDINGS: Normal lumbar lordosis. There is no substantial scoliosis. There is a normal alignment of the vertebrae. Normal vertebral bodies and endplates. Normal disc space heights. Degenerative facet arthrosis at L4-5 and L5-S1. Atherosclerotic vascular calcification of the pelvis. The soft tissue structures are otherwise unremarkable. RAD/Lumbar Spine 2 or 3 Views IMPRESSION: No acute findings. Electronically Signed: Yeimy Gomez MD at 15:39 EDT Tel , Service support ,
--- NOTE | 2019-03-02 15:39 | ED.VISSUMM ---
- ER Visit Summary Date of Service: 03/02/19 Chief Complaint: Back pain History of Present Illness: The patient is a 59 F with a history of an MS variant and end-stage renal disease on hemodialysis. She was at dialysis today when she had a sudden onset of back pain. The pain was in her lower back and did not radiate. She never had this before. It was better with repositioning. No other associated symptoms like pain, fever, weakness, numbness. She does have a history of diabetes and has peripheral neuropathy at baseline. Physical Examination: Afebrile and vital signs unremarkable except initial blood pressure 95/68. Patient is alert and oriented. No acute distress. Heart regular rate and rhythm. Lungs clear. Abdomen soft and nontender. Upper lumbar spine tender to palpation but overlying skin appears normal. She is neurovascular intact distally except for some decreased sensation which she said is at her baseline. Test Results: X-rays pending. Emergency Department Course and Treatment: Patient presents with low back pain that was better with repositioning. I suspect this is myofascial pain. Because of her history of end-stage renal disease, I did check x-rays. I believe the x-rays are unremarkable. The official read is pending. Patient was treated with fentanyl while awaiting results. Repeat blood pressure is 109 systolic. Her pain has decreased after treatment. The oncoming doctor will check the x-ray read. If unremarkable, she will be discharged back to her nursing facility. She declined any further pain medication. There is no indication for other diagnostic testing or imaging. Treatment Plan: As above Disposition: Discharge Impression: 1. Back pain acute This note was generated with [employer] dictation software. It may contain incorrect words, spelling, and punctuation that were not noted in review of the chart prior to signing ED Disposition - Plan for ED Patient: Referrals: Marcela Kerr MD [Primary Care Provider] -
--- NOTE | 2019-03-02 15:41 | ED.DEP ---
ED Disposition - Plan for ED Patient: Instructions: BACK PAIN (Acute or Chronic) Referrals: Marcela Kerr MD [Primary Care Provider] -
[2019-03-02 17:15] VITALS: BP 119/89; PULSE 79; RESP 15; O2SAT 98
== END 2019-03-02 17:46 | disposition home or self-care (01) ==
LOC: ED 15:12
PROVIDERS: Emergency Provider Emergency Medicine; Family Provider Internal Medicine Geriatric Medicine; PCP Internal Medicine Geriatric Medicine
DX: M54.5 Low back pain (principal); E11.22 Type 2 diabetes mellitus with diabetic chronic kidney disease; N18.6 End stage renal disease; Z99.2 Dependence on renal dialysis; E11.42 Type 2 diabetes mellitus with diabetic polyneuropathy; Z79.899 Other long term (current) drug therapy; Z79.4 Long term (current) use of insulin; Z79.52 Long term (current) use of systemic steroids; I12.9 Hypertensive chronic kidney disease with stage 1 through stage 4 chronic kidney disease, or unspecified chronic kidney disease
CPT/HCPCS: 72100; 96374; 99282; A4216

== ENCOUNTER 2019-04-25 13:57 | Inpatient (IN) | payer OTHER, MEDICAID, SELFPAY ==
[2019-04-03 13:38] VITALS: BMI 43.7
[2019-04-25] VITALS (9 sets, daily range): BP systolic 99–143; BP diastolic 66–81; PULSE 89–105; RESP 10–18; TEMP 35.5–37.7; O2SAT 96–99; BMI 44.0; BMI 44.1; BMI 44.2
--- NOTE | 2019-04-25 14:26 | CT_ITS ---
STUDY: CT ABDOMEN AND PELVIS WITHOUT CONTRAST REASON FOR EXAM: Female, 59 years old. Two-week history of right lower abdominal wall wound. RADIATION DOSAGE (If Supplied By Facility): CTDIvol = ( 23.69 ) mGy, DLP = ( 2014.59 ) mGycm TECHNIQUE: Transaxial images were obtained from the dome of the diaphragm to the symphysis pubis without oral contrast, and without intravenous contrast. Sagittal and coronal images were reconstructed. Individualized dose optimization techniques were used for this CT. COMPARISON: None. FINDINGS: Minimal linear scarring at the lung bases. The visualized portions of the heart are within normal limits. Normal liver. The patient is status post cholecystectomy. Normal spleen. Normal pancreas. Normal bilateral adrenal glands. Normal right kidney. Normal left kidney. Normal visualized stomach. Normal small intestine. Normal colon. The appendix is visualized and appears normal. There is diffuse atherosclerotic calcification of the abdominal aorta and major visceral vessels including the splenic artery, celiac artery and superior mesenteric artery., without a demonstrated aneurysm. Normal inferior vena cava. There is borderline retroperitoneal lymphadenopathy with enlarged nodes no greater than 10mm in the short axis diameter. Normal urinary bladder. Small bilateral inguinal lymph nodes. There is a 3.6 cm x 5.3 cm ill-defined soft tissue density in the deep subcutaneous tissues overlying the posterior right lateral abdominal wall abutting the abdominal wall. This most likely corresponds to the superficial wound seen by the patient. Normal osseous structures. CT/Abdomen/Pelvis without Cont IMPRESSION: Atherosclerosis. 3.6 cm x 5.3 cm ill-defined soft tissue density in deep subcutaneous tissues overlying the posterior right lateral abdominal wall. The overlying skin is unremarkable. Electronically Signed: Sylvester Minaya, at 15:29 EST , Service support ,
--- NOTE | 2019-04-25 14:28 | ED.VIS.GEN ---
History of Present Illness Chief Complaint: Wound Detail of Chief Complaint: Abdominal wall wound Informant: Patient Onset: Weeks Context: Gradual Onset Current Severity: Moderate Maximum Severity: Moderate Narrative: Patient presents with wound to her right lower abdominal wall. Patient is nonambulatory secondary to chronic inflammatory demyelinating polyneuropathy. She is currently a resident at [facility]. Patient states she first noted the wound to be about the size of her thumbnail. Her brace would rub across it and irritated. Wound has continued to enlarge and is now approximately 6 x 9 cm in size. She states there is a wound care doctor that comes to the facility. She has not noted fever or chills. Nurse at [facility] reportedly told the patient they thought was secondary to her dialysis. She asked the dialysis nurses today and they referred her to the emergency room. Past Medical History - Allergies and Home Meds Allergies/Adverse Reactions: Allergies latex Allergy (Verified 04/25/19 13:59) Hives Sulfa (Sulfonamide Antibiotics) Allergy (Verified 04/25/19 13:59) Rash codeine Adverse Reaction (Verified 04/25/19 13:59) Confusion Primary Care Physician: Marcela Kerr MD [Primary Care Provider] - Prior records reviewed: Yes Past Medical History: - - Reviewed Surgical History: cholecystectomy, - - Tubal ligation Lives: Group Home Smoking Status: Never smoker - Family History Maternal Family History: Family History (Last Updated 09/19/18 @ 07:27 by Rema Ocampo) Father Diabetes Mother Heart disease Family History: Reports: Cancer, Heart Disease Paternal Family History: Family History (Last Updated 09/19/18 @ 07:27 by Rema Ocampo) Father Diabetes Mother Heart disease Family History: Reports: Diabetes, Heart Disease, Hypertension Sibling Family History: Family History (Last Updated 09/19/18 @ 07:27 by Rema Ocampo) Father Diabetes Mother Heart disease Family History: Reports: Diabetes Review of Systems General: Denies: Chills, Fever Eyes: Denies: Visual changes - bilaterally ENT: Denies: Bilateral ear pain Cardiovascular: Denies: Chest pain Respiratory: Denies: Dyspnea Gastrointestinal: Reports: Abdominal pain - Abdominal wall pain. Denies: Vomiting Musculoskeletal: Denies: Extremity Pain Skin: Reports: Wounds Hematologic: Denies: Easy bruising Allergy: Denies: Uticaria Physical Exam Vital Signs/Narrative: Vital Signs Temp Pulse Resp BP Pulse Ox 04/25/19 13:59 96 F L 101 H 18 108/67 97 Inital Vital Signs reviewed: Yes General: Well nourished, Well developed ENT: Moist mucous membranes Neck: Supple Cardiovascular: Regular rate, Regular rhythm Respiratory: No distress, CTA bilaterally Abdomen: Soft, - - Lower abdominal tenderness. Patient has a 6 x 9 cm painful as sharp to the right lower quadrant of her abdomen. No drainage is noted. There is also a 3 x 3 cm shallow ulcer noted just medial to this. No surrounding cellulitis. Neurological: Alert, Oriented x3 Psychological: Normal affect Diagnostic/Tx/Re-eval Impressions Abdomen/Pelvis CT 04/25/19 14:26 IMPRESSION: Atherosclerosis. 3.6 cm x 5.3 cm ill-defined soft tissue density in deep subcutaneous tissues overlying the posterior right lateral abdominal wall. The overlying skin is unremarkable. Electronically Signed: Sylvester Marimar, at 15:29 EST , Service support , 04/25/19 14:26 Abdomen/Pelvis without Cont [CT] Stat Laboratory Results 04/25/19 04/25/19 14:55 14:55 WBC 12.4 H RBC 4.10 L Hgb 12.5 Hct 39.4 MCV 96.1 MCH 30.5 MCHC 31.7 L RDW Std Deviation 59.8 H RDW Coeff of Perico 17.2 H Plt Count 195 MPV 10.8 Neut % (Auto) Not Reportable Absolute Neuts (auto) 9.8 H Absolute Lymphs (auto) 1.36 Total Counted 100 Neutrophils % (Manual) 74 H Band Neutrophils % 5 Lymphocytes % (Manual) 11 L Monocytes % (Manual) 5 Eosinophils % (Manual) 1 Metamyelocytes % 1 Myelocytes % 2 H Promyelocytes % 1 H Diff Path Review May foll Sodium 133 L Potassium 6.0 H* Chloride 97 L Carbon Dioxide 28.0 Anion Gap 8 BUN 31 H Creatinine 4.03 H Estim Creat Clear Calc 12.18 Est GFR (MDRD) Af Amer 15 L Est GFR (MDRD) Non-Af 12 L BUN/Creatinine Ratio 7.7 L Glucose 146 H Calcium 9.7 - Medical Decision Making Patient was given oxycodone on arrival as this is what she takes at the half-way. Patient is exquisitely tender on exam although no significant skin changes are noted on CT. I spoke with Dr. Salamanca. If hospitalist can admit the patient he is happy to see the patient in consult and will develop a wound care plan for her. It is likely the patient will require surgery at some point and he can better plan this out after examining her. Patient is in agreement with this. ED Disposition - Plan for ED Patient: Disposition: Acute Care Hospital [facility] Diagnosis: Wound, open, abdominal wall, anterior Referrals: Marcela Kerr MD [Primary Care Provider] -
[2019-04-25] MEDS: oxyCODONE 5 MG Tablet PO (14:50)
[2019-04-25 15:08] LABS: Hematocrit 39.4 % (37-47); Hemoglobin 12.5 g/dL (12.0-15.0); Mean Corp Hgb Conc 31.7 g/dL (32-36); Mean Corpuscular Hgb 30.5 pg (27.0-32.0); Mean Corpuscular Volume 96.1 fL (81-99); Mean Platelet Vol. 10.8 fl (6.2-12.0); POSITIVE COUNT YES; POSITIVE MORPHOLOGY YES; Platelet Count 195 K/mm3 (150-450); RBC Distribution Width CV 17.2 % (11.6-14.6); RBC Distribution Width SD 59.8 fl (35.1-43.9); White Blood Count 12.4 K/mm3 (4.4-11.0)
[2019-04-25 15:10] LABS: Differential Indicated MANUAL DIFF
--- NOTE | 2019-04-25 15:28 | ED.RN ---
MD AWARE OF POTASSIUM.
[2019-04-25 15:31] LABS: Anion Gap 8 (5-15); BUN 31 mg/dL (7-18); BUN/Creat Ratio 7.7 RATIO (10-20); Calcium,Total 9.7 mg/dL (8.5-10.1); Chloride 97 mmol/L (98-107); Creatinine, Serum 4.03 mg/dL (0.55-1.02); EST Glomerular Filtration Rate 12 mL/min (>60); Est Glom Filt Rate - Afr Amer 15 mL/min (>60); Estimated Creatinine Clearance 12.18 ml/min; Glucose 146 mg/dL (74-106); Sodium Level 133 mmol/L (136-145)
[2019-04-25 15:39] LABS: Neutrophil-Band 5 % (0-5); Neutrophil-Segmented 74 % (47-70); Total Cells Counted 100 (MANUAL DIFF)
[2019-04-25 15:40] LABS: Eosinophil 1 % (0-5); Lymphocyte 11 % (19-41); Metamyelocyte 1 % (0-1); Monocyte 5 % (0-10); Myelocyte 2 (0-0); Promyelocyte 1 (0-0)
[2019-04-25 15:41] LABS: Absolute Lymphocyte Count 1.36 X10^3/uL (0.83-4.51); Absolute Neutrophil Count 9.8 X10^3/uL (2.0-7.7)
--- NOTE | 2019-04-25 17:14 | HP.PCM_ITS ---
Problem List (1) Wound, open, abdominal wall, anterior Status: Acute Qualifiers: Encounter type: initial encounter Qualified Code(s): S31.109A - Unspecified open wound of abdominal wall, unspecified quadrant without penetration into peritoneal cavity, initial encounter (2) Hyperkalemia Status: Acute (3) ESRD (end stage renal disease) Status: Chronic (4) Morbid obesity Status: Chronic (5) CIDP (chronic inflammatory demyelinating polyneuropathy) Status: Chronic (6) Hyperlipidemia Status: Chronic Qualifiers: Hyperlipidemia type: unspecified Qualified Code(s): E78.5 - Hyperlipidemia, unspecified (7) Chronic kidney disease Status: Chronic Qualifiers: Chronic kidney disease stage: on chronic dialysis Qualified Code(s): N18.6 - End stage renal disease; Z99.2 - Dependence on renal dialysis (8) HTN (hypertension) Status: Chronic Qualifiers: Hypertension type: essential hypertension Qualified Code(s): I10 - Essential (primary) hypertension (9) Obesity Status: Chronic Qualifiers: Obesity type: unspecified obesity type Obesity classification: unspecified obesity classification Serious obesity comorbidity presence: unspecified whether serious comorbidity present Qualified Code(s): E66.9 - Obesity, unspecified (10) DM2 (diabetes mellitus, type 2) Status: Chronic Qualifiers: 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 Diabetes mellitus complication status: with kidney complications Diabetes mellitus complication detail: with chronic kidney disease Chronic kidney disease stage: stage 4 (severe) Qualified Code(s): E11.22 - Type 2 diabetes mellitus with diabetic chronic kidney disease; N18.4 - Chronic kidney disease, stage 4 (severe); Z79.4 - summer analyst (current) use of insulin (11) Anxiety and depression Status: Chronic History of Present Illness Date of Admission: 04/25/19 Chief Complaint: RL abdominal wound The patient is a 59 y/o F w/ PMHx: ESRD on HD, AOCD, HTN, HLD, Morbid Obesity, GERD, Diabetes mellitus type II, Chronic Inflammatory Demyelinating Polyneuropathy who presents to the [facility] ED on 04/25/19 with history of onset right lower quadrant abdominal wounds initially the size of the thumbnail progressing over the last 2 weeks with widening wound with overlying eschar, foul odor, severe 10 out of 10 pain with any patient or in general any movement. She denies any market discharge from it. She denies any market fevers or chills. She states she has had anorexia and nausea without emesis. Work-up in the ED included T 99.9, heart rate 101, BP 108/67, respiratory rate 18, 97% on room air, CBC with WBC 12.4, hemoglobin 12.5, platelet 195 with left shift, BMP with sodium 133, potassium 6, chloride 97, BUN/creatinine 31/4.03, glucose 146, CT abdomen and pelvis with a 3.6 x 5.3 cm ill-defined soft tissue density in the deep subcu tissues overlying the posterior right lateral abdominal wall with overlying skin unremarkable. In the ED patient and administered oxycodone. Past Medical History Past Medical History (Chronic Problems): Chronic Problems (Last Updated 09/19/18 @ 07:24 by Rema Ocampo) Anxiety and depression (Chronic) ESRD (end stage renal disease) (Chronic) Morbid obesity (Chronic) Chronic diastolic CHF (congestive heart failure) (Chronic) 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) Hyperlipidemia (Chronic) Chronic kidney disease (Chronic) HTN (hypertension) (Chronic) Obesity (Chronic) DM2 (diabetes mellitus, type 2) (Chronic) Medical History: Medical History (Last Updated 09/19/18 @ 07:24 by Rema Ocampo) Problem with dialysis access (Acute) T82.898A 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) G61.81 Hyperlipidemia (Chronic) E78.5 Chronic kidney disease (Chronic) N18.9 HTN (hypertension) (Chronic) I10 Obesity (Chronic) E66.9 DM2 (diabetes mellitus, type 2) (Chronic) E11.9 Anemia D64.9 GERD (gastroesophageal reflux disease) K21.9 Allergies latex Allergy (Verified 04/25/19 13:59) Hives Sulfa (Sulfonamide Antibiotics) Allergy (Verified 04/25/19 13:59) Rash codeine Adverse Reaction (Verified 04/25/19 13:59) Confusion Home Medications: Ambulatory Orders Medication Instructions Recorded Montelukast [Singulair] 10 mg PO QHS 10/29/13 Sertraline HCl 100 mg PO DAILY 06/14/18 Pantoprazole Sodium [Protonix] 20 mg PO DAILY 06/20/18 Atorvastatin Calcium [Lipitor] 20 mg PO QHS 07/28/18 Carvedilol [Coreg (Beta Shannon)] 12.5 mg PO BID 07/28/18 busPIRone [Buspar] 5 mg PO TID 07/28/18 Insulin Glargine,Hum.rec.anlog 37 unit SQ DAILY 10/04/18 [Basaglar Kwikpen U-100] Insulin Lispro [Humalog Kwikpen] 12 unit SQ TID 10/04/18 Losartan Potassium [Cozaar] 100 mg PO QHS 10/04/18 predniSONE tablet 30 mg PO 1200 10/04/18 Acetaminophen [Tylenol Tablet] 650 mg PO Q6H PRN PRN tablet 11/01/18 Furosemide [Lasix] 80 mg PO BID #0 11/01/18 Melatonin 3 mg PO QHS PRN 01/19/19 Sevelamer Carbonate [Renvela] 800 mg PO TID 01/19/19 amino acids tablet tab PO tab 04/03/19 bisacodyl 10 mg rectal suppository 10 mg RC DAILY 04/03/19 calcium acetate 667 mg capsule 1,334 mg PO TID cap 04/03/19 gabapentin 400 mg capsule 400 mg PO TID 04/03/19 guaifenesin ER 600 mg tablet, 600 mg PO BID 04/03/19 extended release 12 hr hydralazine 50 mg tablet 50 mg PO TID 04/03/19 multivitamin tablet 1 tab PO DAILY 04/03/19 Surgical History: Surgical History (Last Updated 09/19/18 @ 07:24 by Rema Ocampo) History of cholecystectomy Z90.49 History of tubal ligation Z98.51 Surgical History: cholecystectomy, - - Letter tubal ligation, cholecystectomy, right upper extremity fistula placement and eventual ligation, bilateral upper chest dialysis catheters with right now left upper chest in place. Psychiatric History: Anxiety, Depression FISCAL AGENT History: No pertinent FISCAL AGENT history Lives: Prison Smoking Status: Never smoker Tobacco Use: Non-smoker Alcohol: None Drugs: None - *Family History Maternal Family History: Family History (Last Updated 09/19/18 @ 07:27 by Rema Ocampo) Father Diabetes Mother Heart disease History Items: Cancer, Heart Disease Paternal Family History: Family History (Last Updated 09/19/18 @ 07:27 by Rema Ocampo) Father Diabetes Mother Heart disease History Items: Diabetes, Heart Disease, Hypertension Sibling Family History: Family History (Last Updated 09/19/18 @ 07:27 by Rema Ocampo) Father Diabetes Mother Heart disease History Items: Diabetes Review of Systems Constitutional: Reports: Anorexia, Malaise, Weakness, Fatigue. Denies: Chills, Fever, Weight Change HEENT: Denies: Head Aches, Sinus Congestion, Sinus Drainage Cardiovascular: Denies: Chest Pain, Palpitations Respiratory: Denies: Cough, Shortness of breath at rest, Sputum production Gastrointestinal: Reports: Abdominal Pain, Nausea. Denies: Vomiting Genitourinary: Denies: Dysuria Musculoskeletal: Denies: Joint Pain, Joint Tenderness Skin: Reports: Skin Changes, Wounds. Denies: Rash Neurological: Denies: Numbness, Tingling, Focal weakness Psychiatric: Reports: Anxiety, Depression. Denies: Homicidal Ideations, Suicidal Ideations Hematologic/ Lymphatic: Reports: Anemia, Easy Bruising, Easy Bleeding VTE Information - Inpt Only VTE Present on Admission: No VTE Mechan Device Prophylaxis: SCD's VTE Pharm Prophylaxis ordered?: Yes Patient Problems: Active and Suspected Problems (Last Updated 09/19/18 @ 07:24 by Rema Ocampo) Wound, open, abdominal wall, anterior (Acute) Hyperkalemia (Acute) Subjective: Laying in ED bed, extremely uncomfortable, notes ongoing discomfort in the right lower quadrant. Objective: Physical Examination: General: awake, alert, oriented x 3 and cooperative, laying in the ED bed, uncomfortable appearing, notes ongoing right lower quadrant pain, worse with any attempted evaluation. Skin: normal color, turgor, no icterus, cyanosis except bilateral lower extremity chronic venous stasis skin changes, right lower quadrant notable abdominal wound with eschar, foul-smelling, periwound mild erythema, no drainage, severely tender to palpation of the region with minimal touch. HEENT: AT/NC, EOMI, PERRLA, dry MM, no carotid bruits or JVD noted; however, habitus makes examination difficult. Lungs: CTA bilaterally, decreased effort, moderate decrease BL bases, no rales, ronchi or wheezing. Heart: Currently mildly tachycardic and rhythm; no gallop, rub audible, left upper chest access in place for dialysis. Abdomen: soft, morbidly obese, see skin with noted right lower quadrant wound with eschar, foul-smelling, mild periwound erythema, severely tender to palpation as expected, difficult to assess abdominal distention secondary to habitus, decreased bowel sounds, difficult to assess HSM secondary to severity of discomfort with palpation of the abdomen. Extremities: no cyanosis, clubbing, or edema. Neurological: patient awake, alert, oriented x 3; cognitive function intact; pupils equally reactive to light and accomodation; cranial nerves II-XII grossly normal, moving all 4 extremities, no focal deficits, strength severely global decrease secondary to acute presentation. Psychiatric: affect appears uncomfortable, no acute evidence of depressive or anxiety feelings. - Physical Exam Vitals/I&O's: Vital Signs Temp Pulse Resp BP Pulse Ox 99.9 F H 91 18 143/81 H 96 04/25/19 15:02 04/25/19 15:02 04/25/19 15:02 04/25/19 15:02 04/25/19 15:02 Oxygen Delivery Method Room Air Weight: 241 lb Body Mass Index (BMI) 44.0 Laboratory Results 04/25/19 14:55: WBC 12.4 H, RBC 4.10 L, Hgb 12.5, Hct 39.4, MCV 96.1, MCH 30.5, MCHC 31.7 L, RDW Std Deviation 59.8 H, RDW Coeff of Perico 17.2 H, Plt Count 195, MPV 10.8, Neut % (Auto) Not Reportable, Absolute Neuts (auto) 9.8 H, Absolute Lymphs (auto) 1.36, Total Counted 100, Neutrophils % (Manual) 74 H, Band Neutrophils % 5, Lymphocytes % (Manual) 11 L, Monocytes % (Manual) 5, Eosinophils % (Manual) 1, Metamyelocytes % 1, Myelocytes % 2 H, Promyelocytes % 1 H, Diff Path Review October04/25/19 14:55: Sodium 133 L, Potassium 6.0 H*, Chloride 97 L, Carbon Dioxide 28.0, Anion Gap 8, BUN 31 H, Creatinine 4.03 H, Estim Creat Clear Calc 12.18, Est GFR (MDRD) Af Amer 15 L, Est GFR (MDRD) Non-Af 12 L, BUN/Creatinine Ratio 7.7 L, Glucose 146 H, Calcium 9.7 Assessment/Plan All Active Problems (Last Updated 09/19/18 @ 07:24 by Rema Ocampo) Neuropathic pain of left hand (Acute) Wound, open, abdominal wall, anterior (Acute) Hyperkalemia (Acute) Pneumonia (Acute) NOEL (acute kidney injury) (Acute) Problem with dialysis access (Acute) Debility (Acute) The patient is a 59 y/o F w/ PMHx: ESRD on HD, AOCD, HTN, HLD, Morbid Obesity, GERD, Diabetes mellitus type II, Chronic Inflammatory Demyelinating Polyneuro julia who presents to the [facility] ED on 04/25/19 with history of onset right lower quadrant abdominal wounds initially the size of the thumbnail progressing over the last 2 weeks with widening wound with overlying eschar, foul odor, severe 10 out of 10 pain. 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 Salamanca evaluation, once I+D performed would expect Wound Cx, Wound MRSA PCR at that time, de-escalate abx as able, plan repeat CBC in AM, monitor erythema outline with VS checks. (2) Hyperkalemia: Admission potassium 6.0, recent dialysis on day of ED presentation, not noted to be hemolyzed, will maintain on telemetry. Will administer Kayexalate and repeat BMP this evening, EKG with no acute findings. (3) ESRD: We will continue dialysis regimen T, Th, Sat, following w/ Dr. Lew who will be consulted given hyperkalemia and expected stay into next session. (4) Hypertension: Continue home regimen including Coreg, Lasix, hydralazine, losartan, PRN hydralazine. (5) Hyperlipidemia: Continue home statin regimen. (6) Diabetes mellitus type II: Will continue home insulin regimen, ADA diet with n.p.o. status at midnight in case of operative intervention needs, accu checks w/ ISS. (7) Morbid Obesity: Weight loss and lifestyle changes encouraged, nutrition consulted. (8) Anxiety and depression: We will continue home BuSpar, sertraline regimen. (9) Chronic Inflammatory Demyelinating Polyneuropathy: Patient on chronic steroids, lower dose, therefore will defer stress dosing preoperatively. (10) AOCD: Admission hemoglobin 12.5, stable, trend. (11) GERD: Continue home PPI. (12) DVT prophylaxis: SCDs, heparin. (13) CODE status: Patient's daughter is her HCPOA, living will in place. Discussed CODE status at length including difference between FULL code, DNR-CCA and DNR-CC status. Following discussions about the differences in these status, requested Full Code status. Advanced Care Planning Face to Face Time: 16 minutes. Code Visit Inpatient E&M: 83109 Init Hosp L3 Procedures: 00702 Advncd Care Plan 30 Min
--- NOTE | 2019-04-25 17:22 | EKG12_ITS ---
Test Reason : HYPERKALEMIA Blood Pressure : / mmHG Vent. Rate : 085 BPM Atrial Rate : 085 BPM P-R Int : 170 ms QRS Dur : 086 ms QT Int : 386 ms P-R-T Axes : 036 -19 081 degrees QTc Int : 459 ms Normal sinus rhythm Minimal voltage criteria for LVH, may be normal variant Borderline ECG Confirmed by KELLEY KRUSE, MASOOD ([id number]), editor magazine VITA CARPENTER ([id number]) on 04/30/2019 2:36:18 PM Referred By: PATRICIA Confirmed By:MASOOD BENSON MD
[2019-04-25] MEDS: Sodium Polystyrene Sulfonate 15 GM/60 ML UDC 30 GM PO (17:56)
[2019-04-25] MEDS: 0.9% Saline Lock 10 ML Syringe IV (20:11)
[2019-04-25] MEDS: Morphine 2 MG/ML Syringe IV (20:11)
[2019-04-25 21:15] LABS: Anion Gap 9 (5-15); BUN 35 mg/dL (7-18); BUN/Creat Ratio 7.9 RATIO (10-20); Calcium,Total 9.6 mg/dL (8.5-10.1); Chloride 98 mmol/L (98-107); Creatinine, Serum 4.42 mg/dL (0.55-1.02); EST Glomerular Filtration Rate 11 mL/min (>60); Est Glom Filt Rate - Afr Amer 13 mL/min (>60); Estimated Creatinine Clearance 11.62 ml/min; Glucose 163 mg/dL (74-106); Potassium 5.9 mmol/L (3.5-5.1); Sodium Level 133 mmol/L (136-145)
--- NOTE | 2019-04-25 22:17 | CON.PCM_ITS ---
Reason for Consult Date of Consultation: 04/25/19 Reason for Consultation: Nonhealing infected diabetic necrotic ulcerated abscesses right lateral abdominal wall. REFFERING PHYSICIAN: Dr. Barber. COMMUNITY HEALTH NAVIGATOR: Dr. Salamanca. History of Present Illness: The patient is a 59 y/o F with a history of diabetes mellitus and ESRD requiring dialysis presented to the ED with increasing pain and drainage and skin necrosis right lateral abdominal wall that has worsened over the last several days. She denies trauma. She denies fever. Her temp in the ED was 99.9. WBC was 12.4. K was 6.0. Creatinine was 4.03. CT Abdomen and Pelvis was done which showed 3.6 cm x 5.3 cm ill-defined soft tissue density in deep subcutaneous tissues overlying the posterior right lateral abdominal wall. She was started on IV Vancomycin and Zosyn. She gets dialyzed on Monday, , and Monday. She states she has received insulin injections in the abdominal wall. I was asked to evaluate this patient for surgical options for treatment. Past Medical History Past Medical History (Chronic Problems): Chronic Problems (Last Updated 09/19/18 @ 07:24 by Rema Ocampo) ESRD on dialysis (Chronic) Anxiety and depression (Chronic) ESRD (end stage renal disease) (Chronic) Morbid obesity (Chronic) Chronic diastolic CHF (congestive heart failure) (Chronic) 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) Hyperlipidemia (Chronic) Chronic kidney disease (Chronic) HTN (hypertension) (Chronic) Obesity (Chronic) DM2 (diabetes mellitus, type 2) (Chronic) Medical History: Medical History (Last Updated 09/19/18 @ 07:24 by Rema Ocampo) Problem with dialysis access (Acute) T82.898A 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) G61.81 Hyperlipidemia (Chronic) E78.5 Chronic kidney disease (Chronic) N18.9 HTN (hypertension) (Chronic) I10 Obesity (Chronic) E66.9 DM2 (diabetes mellitus, type 2) (Chronic) E11.9 Anemia D64.9 GERD (gastroesophageal reflux disease) K21.9 Allergies latex Allergy (Verified 04/25/19 13:59) Hives Sulfa (Sulfonamide Antibiotics) Allergy (Verified 04/25/19 13:59) Rash codeine Adverse Reaction (Verified 04/25/19 13:59) Confusion Current Medications Acetaminophen (Tylenol) 650 mg PO Q6H PRN PRN PRN Reason: Non-cardiac pain (mod-severe) Hydrocodone Bitart/Acetaminophen ([place] 5mg-325mg) 1 - 2 tablet PO Q4H PRN PRN PRN Reason: Pain Score 4-10/10 Al Hydroxide/Mg Hydroxide (Mylanta Ii) 15 - 30 ml PO Q4H PRN PRN PRN Reason: INDIGESTION Albuterol Sulfate (Ventolin Aerosols) 2.5 mg INHALATION Q2H PRN PRN PRN Reason: dyspnea, wheezing Atorvastatin Calcium (Lipitor) 20 mg PO QHS COUNTS INCLUDE 234 BEDS AT THE [facility] Buspirone HCl (Buspar) 5 mg PO TID COUNTS INCLUDE 234 BEDS AT THE [facility] Calcium Acetate (Phoslo Gel Cap) 1,334 mg PO TIDCM COUNTS INCLUDE 234 BEDS AT THE [facility] Carvedilol (Coreg) 12.5 mg PO BID COUNTS INCLUDE 234 BEDS AT THE [facility] Dextrose (D50w Syringe) 0 gm IV X1 PRN; Protocol PRN Reason: Hypoglycemia Furosemide (Lasix) 80 mg PO BIDLX COUNTS INCLUDE 234 BEDS AT [facility] Gabapentin (Neurontin) 400 mg PO TIDCM COUNTS INCLUDE 234 BEDS AT THE [facility] Glucagon () 1 mg IM .X1 PRN PRN Reason: Hypoglycemia Heparin Sodium (Porcine) (Heparin Na) 5,000 unit SC Q12 COUNTS INCLUDE 234 BEDS AT THE [facility] Hydralazine HCl (Apresoline) 50 mg PO TID SHAHANA Hydralazine HCl (Apresoline Iv) 10 mg IV Q4H PRN PRN PRN Reason: SBP > 160 Sodium Chloride () 1,000 mls @ 100 mls/hr IV .Q10H COUNTS INCLUDE 234 BEDS AT THE [facility] Stop: 04/26/19 09:54 Piperacillin Sod/Tazobactam (Sod 3.375 gm/ Sodium Chloride) 50 mls @ 12.5 mls/hr IV Q12 COUNTS INCLUDE 234 BEDS AT THE [facility] Last Admin: 04/25/19 20:29 Dose: 12.5 mls/hr Documented by: Vancomycin IV Pharmacy to Dose (1 ea/ Sodium Chloride) 500 mls @ 250 mls/hr IV PRN PRN; Protocol PRN Reason: Rx to Dose Vancomycin HCl 1,750 mg/ (Sodium Chloride) 535 mls @ 250 mls/hr IV X1 ONE Stop: 04/26/19 00:08 Insulin Glargine (Lantus ([facility])) 37 units SC DAILY COUNTS INCLUDE 234 BEDS AT [facility] Insulin Human Lispro (Humalog Kwikpen ([facility])) 12 unit SC TIDAC SHAHANA Insulin Human Lispro (Humalog Kwikpen ([facility])) 0 unit SC ACHS SHAHANA; Protocol Losartan Potassium (Cozaar) 100 mg PO QHS COUNTS INCLUDE 234 BEDS AT [facility] Magnesium Hydroxide (Milk Of Magnesia) 30 ml PO DAILY PRN PRN Reason: Constipation Melatonin (Melatonin) 3 mg PO QHS PRN PRN Reason: SLEEP Montelukast Sodium (Singulair) 10 mg PO QHS COUNTS INCLUDE 234 BEDS AT [facility] Morphine Sulfate () 2 - 4 mg IV Q4H PRN PRN PRN Reason: Pain Score 1-10/10 Last Admin: 04/25/19 20:11 Dose: 2 mg Documented by: Nutritional Formula (Lactose Free) (Glucerna Shake) 120 ml PO 4X/DAY SHAHANA Ondansetron HCl (Zofran) 4 mg IV Q8H PRN PRN PRN Reason: NAUSEA/VOMITING Pantoprazole Sodium (Protonix) 20 mg PO DAILY COUNTS INCLUDE 234 BEDS AT [facility] Prednisone () 30 mg PO 1200 SHAHANA Sertraline HCl (Zoloft) 100 mg PO DAILY COUNTS INCLUDE 234 BEDS AT THE [facility] Sevelamer Carbonate (Renvela) 800 mg PO TIDCM COUNTS INCLUDE 234 BEDS AT THE [facility] Sodium Chloride () 10 - 40 ml IV UD PRN PRN Reason: SALINE FLUSH Last Admin: 04/25/19 20:11 Dose: 20 ml Documented by: Home Medications: Ambulatory Orders Medication Instructions Recorded Montelukast [Singulair] 10 mg PO DAILY 10/29/13 Sertraline HCl 100 mg PO DAILY 06/14/18 Pantoprazole Sodium [Protonix] 20 mg PO DAILY 06/20/18 Atorvastatin Calcium [Lipitor] 20 mg PO QHS 07/28/18 Insulin Glargine,Hum.rec.anlog 60 unit SQ DAILY 10/04/18 [Basaglar Kwikpen U-100] Insulin Lispro [Humalog Kwikpen] 18 unit SQ QHS 10/04/18 predniSONE tablet 30 mg PO 1200 10/04/18 Sevelamer Carbonate [Renvela] 800 mg PO TID 01/19/19 calcium acetate 667 mg capsule 1,334 mg PO TID cap 04/03/19 multivitamin tablet 1 tab PO DAILY 04/03/19 Furosemide [Lasix] 80 mg PO BID 04/25/19 Insulin Lispro [Admelog Solostar] 25 unit SQ DAILY 04/25/19 Metoprolol Tartrate 12.5 mg PO BID 04/25/19 Mycophenolate Mofetil [Cellcept] 250 mg PO BID 04/25/19 Oxycodone HCl/Acetaminophen 1 tab PO Q6H PRN PRN 04/25/19 [Endocet 5-325 Tablet] Pregabalin [Lyrica] 75 mg PO TID 04/25/19 Sulfamethoxazole/Trimethoprim 1 ea PO MOWEFR 04/25/19 [Bactrim 400-80 mg Tablet] Surgical History: Surgical History (Last Updated 09/19/18 @ 07:24 by Rema Ocampo) History of cholecystectomy Z90.49 History of tubal ligation Z98.51 Surgical History: cholecystectomy, - - Letter tubal ligation, cholecystectomy, right upper extremity fistula placement and eventual ligation, bilateral upper chest dialysis catheters with right now left upper chest in place. 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: No pertinent LOCKSTITCH BINDER history Lives: Skilled Nursing Smoking Status: Never smoker Tobacco Use: Non-smoker Alcohol: None Drugs: None - *Family History Maternal Family History: Family History (Last Updated 09/19/18 @ 07:27 by Rema Ocampo) Father Diabetes Mother Heart disease History Items: Cancer, Heart Disease Paternal Family History: Family History (Last Updated 09/19/18 @ 07:27 by Rema Ocampo) Father Diabetes Mother Heart disease History Items: Diabetes, Heart Disease, Hypertension Sibling Family History: Family History (Last Updated 09/19/18 @ 07:27 by Rema Ocampo) Father Diabetes Mother Heart disease History Items: Diabetes Review of Systems Comment: Constitutional: Reports: Anorexia, Malaise, Weakness, Fatigue. Denies: Chills, Fever, Weight Change. HEENT: Denies: Head Aches, Sinus Congestion, Sinus Drainage. Cardiovascular: Denies: Chest Pain, Palpitations. Respiratory: Denies: Cough, Shortness of breath at rest, Sputum production. Gastrointestinal: Reports: Abdominal Pain, Nausea. Denies: Vomiting. Genitourinary: Denies: Dysuria. Musculoskeletal: Denies: Joint Pain, Joint Tenderness. Skin: Reports: Skin Changes, Wounds. Denies: Rash. Neurological: Denies: Numbness, Tingling, Focal weakness. Psychiatric: Reports: Anxiety, Depression. Denies: Homicidal Ideations, Suicidal Ideations. Hematologic/ Lymphatic: Reports: Anemia, Easy Bruising, Easy Bleeding Patient Problems: Active and Suspected Problems (Last Updated 09/19/18 @ 07:24 by Rema Ocampo) Wound, open, abdominal wall, anterior (Acute) Hyperkalemia (Acute) - Physical Exam Vitals/I&O's: General: awake, alert, oriented x 3 and cooperative, uncomfortable appearing, notes ongoing right lower quadrant pain, worse with any attempted evaluation. HEENT: EOMI, PERRLA. Dry mucous membranes. Neck: supple and nontender. No cervical adenopathy. Lungs: CTA bilaterally. Heart: Regular rate and rhythm. Abdomen: soft, nondistended. In the right lateral quadrant is an area of ulcerated skin necrosis with eschar. Malodorous drainage. Some periwound redness. Extreme tenderness to palpation. Some induration and firmness in the right lateral abdominal wall measuring 7 cm. Extremities: no cyanosis, clubbing, or edema. No axillary adenopathy. No inguinal adenopathy. Neurological: cranial nerves II-XII grossly intact. Psychiatric: affect appears uncomfortable, no acute evidence of depressive or anxiety feelings. Vital Signs Temp Pulse Resp BP Pulse Ox 99.9 F H 95 18 118/66 99 04/25/19 19:17 04/25/19 19:18 04/25/19 19:17 04/25/19 19:17 04/25/19 19:17 Oxygen Delivery Method Room Air Weight: 250 lb Body Mass Index (BMI) 44.2 Laboratory Results 04/25/19 14:55: WBC 12.4 H, RBC 4.10 L, Hgb 12.5, Hct 39.4, MCV 96.1, MCH 30.5, MCHC 31.7 L, RDW Std Deviation 59.8 H, RDW Coeff of Perico 17.2 H, Plt Count 195, MPV 10.8, Neut % (Auto) Not Reportable, Absolute Neuts (auto) 9.8 H, Absolute Lymphs (auto) 1.36, Total Counted 100, Neutrophils % (Manual) 74 H, Band Neutrophils % 5, Lymphocytes % (Manual) 11 L, Monocytes % (Manual) 5, Eosinophils % (Manual) 1, Metamyelocytes % 1, Myelocytes % 2 H, Promyelocytes % 1 H, Diff Path Review October04/25/19 14:55: Sodium 133 L, Potassium 6.0 H*, Chloride 97 L, Carbon Dioxide 28.0, Anion Gap 8, BUN 31 H, Creatinine 4.03 H, Estim Creat Clear Calc 12.18, Est GFR (MDRD) Af Amer 15 L, Est GFR (MDRD) Non-Af 12 L, BUN/Creatinine Ratio 7.7 L, Glucose 146 H, Calcium 9.7 04/25/19 20:38: Sodium 133 L, Potassium 5.9 H, Chloride 98, Carbon Dioxide 26.0, Anion Gap 9, BUN 35 H, Creatinine 4.42 H, Estim Creat Clear Calc 11.62, Est GFR (MDRD) Af Amer 13 L, Est GFR (MDRD) Non-Af 11 L, BUN/Creatinine Ratio 7.9 L, Glucose 163 H, Calcium 9.6 Diagnostic Data Abdomen/Pelvis CT 04/25/19 14:26 IMPRESSION: Atherosclerosis. 3.6 cm x 5.3 cm ill-defined soft tissue density in deep subcutaneous tissues overlying the posterior right lateral abdominal wall. The overlying skin is unremarkable. Electronically Signed: Sylvester Minaya, at 15:29 EST , Service support , Current Medications Acetaminophen (Tylenol) 650 mg PO Q6H PRN PRN PRN Reason: Non-cardiac pain (mod-severe) Hydrocodone Bitart/Acetaminophen ([place] 5mg-325mg) 1 - 2 tablet PO Q4H PRN PRN PRN Reason: Pain Score 4-10/10 Al Hydroxide/Mg Hydroxide (Mylanta Ii) 15 - 30 ml PO Q4H PRN PRN PRN Reason: INDIGESTION Albuterol Sulfate (Ventolin Aerosols) 2.5 mg INHALATION Q2H PRN PRN PRN Reason: dyspnea, wheezing Atorvastatin Calcium (Lipitor) 20 mg PO QHS SHAHANA Buspirone HCl (Buspar) 5 mg PO TID SHAHANA Calcium Acetate (Phoslo Gel Cap) 1,334 mg PO TIDCM SHAHANA Carvedilol (Coreg) 12.5 mg PO BID SHAHANA Dextrose (D50w Syringe) 0 gm IV X1 PRN; Protocol PRN Reason: Hypoglycemia Furosemide (Lasix) 80 mg PO BIDLX SHAHANA Gabapentin (Neurontin) 400 mg PO TIDCM COUNTS INCLUDE 234 BEDS AT THE [facility] Glucagon () 1 mg IM .X1 PRN PRN Reason: Hypoglycemia Heparin Sodium (Porcine) (Heparin Na) 5,000 unit SC Q12 COUNTS INCLUDE 234 BEDS AT THE [facility] Hydralazine HCl (Apresoline) 50 mg PO TID COUNTS INCLUDE 234 BEDS AT THE [facility] Hydralazine HCl (Apresoline Iv) 10 mg IV Q4H PRN PRN PRN Reason: SBP > 160 Sodium Chloride () 1,000 mls @ 100 mls/hr IV .Q10H COUNTS INCLUDE 234 BEDS AT THE [facility] Stop: 04/26/19 09:54 Piperacillin Sod/Tazobactam (Sod 3.375 gm/ Sodium Chloride) 50 mls @ 12.5 mls/hr IV Q12 COUNTS INCLUDE 234 BEDS AT THE [facility] Last Admin: 04/25/19 20:29 Dose: 12.5 mls/hr Documented by: Vancomycin IV Pharmacy to Dose (1 ea/ Sodium Chloride) 500 mls @ 250 mls/hr IV PRN PRN; Protocol PRN Reason: Rx to Dose Vancomycin HCl 1,750 mg/ (Sodium Chloride) 535 mls @ 250 mls/hr IV X1 ONE Stop: 04/26/19 00:08 Insulin Glargine (Lantus ([facility])) 37 units SC DAILY COUNTS INCLUDE 234 BEDS AT [facility] Insulin Human Lispro (Humalog Kwikpen ([facility])) 12 unit SC TIDAC COUNTS INCLUDE 234 BEDS AT THE [facility] Insulin Human Lispro (Humalog Kwikpen ([facility])) 0 unit SC ACHS COUNTS INCLUDE 234 BEDS AT THE [facility]; Protocol Losartan Potassium (Cozaar) 100 mg PO QHS COUNTS INCLUDE 234 BEDS AT [facility] Magnesium Hydroxide (Milk Of Magnesia) 30 ml PO DAILY PRN PRN Reason: Constipation Melatonin (Melatonin) 3 mg PO QHS PRN PRN Reason: SLEEP Montelukast Sodium (Singulair) 10 mg PO QHS COUNTS INCLUDE 234 BEDS AT THE [facility] Morphine Sulfate () 2 - 4 mg IV Q4H PRN PRN PRN Reason: Pain Score 1-10/10 Last Admin: 04/25/19 20:11 Dose: 2 mg Documented by: Nutritional Formula (Lactose Free) (Glucerna Shake) 120 ml PO 4X/DAY COUNTS INCLUDE 234 BEDS AT [facility] Ondansetron HCl (Zofran) 4 mg IV Q8H PRN PRN PRN Reason: NAUSEA/VOMITING Pantoprazole Sodium (Protonix) 20 mg PO DAILY COUNTS INCLUDE 234 BEDS AT [facility] Prednisone () 30 mg PO 1200 COUNTS INCLUDE 234 BEDS AT [facility] Sertraline HCl (Zoloft) 100 mg PO DAILY SHAHANA Sevelamer Carbonate (Renvela) 800 mg PO TIDCM SHAHANA Sodium Chloride () 10 - 40 ml IV UD PRN PRN Reason: SALINE FLUSH Last Admin: 04/25/19 20:11 Dose: 20 ml Documented by: Assessment/Plan All Active Problems (Last Updated 09/19/18 @ 07:24 by Rema Ocampo) Abdominal wall pain in right flank (Acute) Skin necrosis (Acute) Calciphylaxis (Acute) Cutaneous abscess of abdominal wall (Acute) Complication due to medical care (Acute) Type 2 diabetes mellitus with other skin ulcer (Acute) Neuropathic pain of left hand (Acute) Wound, open, abdominal wall, anterior (Acute) Hyperkalemia (Acute) Pneumonia (Acute) NOEL (acute kidney injury) (Acute) Problem with dialysis access (Acute) Debility (Acute) 1. Nonhealing infected diabetic necrotic ulcerated abscesses right lateral abdominal wall. 2. Painful insulin nodules abdominal wall. 3. Diabetes mellitus. 4. ESRD requiring dialysis. 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 CT reviewed. Has a mass right lateral abdominal wall consistent with an abscess. Clinically she has skin necrosis with malodorous drainage. With her history of diabetes mellitus and ESRD with dialysis, she is at increased risk of calciphylaxis which leads to painful fat necrosis and skin necrosis. Some of the infection abscesses could also be related to insulin nodules. She injects her insulin into her abdomen. Suggested to the patient to start insulin injections in the arm and the thigh. This area of infected diabetic ulcerated abscesses on the right lateral abdominal wall needs excision to minimize infection in the future which can be life threatening. Will send tissue to Pathology for analysis to rule out carcinoma. Will also send tissue to Microbiology for culture. A positive culture will necessitate antibiotic therapy. Postop will begin wound care with the VAC. Anticipate increased metabolic demands from the wounds and the infection. Will check a Prealbumin and encourage nutritional supplementation with protein to help the healing process. In renal failure patients on dialysis, when necrotic skin infections start developing, calciphylaxis can be present. Sometimes this is progressive and other areas on the abdominal wall and the extremities can develop necrotic skin infections. Because of the severe pain present in these wounds and if multiple wounds develop, these patients sometimes need to go to a Burn Center for more aggressive wound care with a whirlpool and the need for much higher doses of IV analgesia. After discharge can followup at the Wound Center. Patient was informed of the risks and complications of the procedure including alternatives to surgery. These were discussed with the patient personally. Patient voices understanding and wishes to proceed. Code Visit Inpatient E&M: 64080 Init Hosp L2 - ICD-10 - E11.622, I96, L02.211, R10.9, T88.9xxA, N18.6, E83.59
[2019-04-25] MEDS: Heparin Injection (Vial) 5,000 UNIT/ML VIAL 5000 UNIT SC (22:46)
[2019-04-25] MEDS: Glucerna Shake 120 ML LIQUID PO (22:46)
[2019-04-25] MEDS: busPIRone 5 MG Tablet PO (22:46)
[2019-04-25] MEDS: Montelukast 10 MG Tablet PO (22:47)
[2019-04-25] MEDS: Atorvastatin Calcium 20 MG Tablet PO (22:47)
[2019-04-25] MEDS: Insulin Lispro 100 UNIT/ML INSULN.PEN SC (22:55)
[2019-04-25] MEDS: Carvedilol 12.5 MG Tablet PO (23:15)
[2019-04-25] MEDS: Losartan Potassium 100 MG Tablet PO (23:18)
--- NOTE | 2019-04-25 23:46 | NURSING ---
Verbal report given to Trent Stewart RN. She will resume care of patient at this time.
[2019-04-26] VITALS (32 sets, daily range): BP systolic 70–107; BP diastolic 42–68; PULSE 86–106; RESP 10–20; TEMP 36.3–37.2; O2SAT 92–100; BMI 44.8
[2019-04-26 00:51] LABS: Bedside Glucose 165 mg/dL (70-110)
[2019-04-26] MEDS: 0.9% Normal Saline 1,000 ML 100 ML IV (01:03)
[2019-04-26] MEDS: Dextrose 50%-Water 25 GM/50 ML DISP.SYRIN IV (01:21)
[2019-04-26] MEDS: Insulin Lispro 10 UNIT in Syringe 0 ML 6 UNIT IV (01:26)
[2019-04-26] MEDS: Sodium Polystyrene Sulfonate 15 GM/60 ML UDC 30 GM PO (01:34)
[2019-04-26 01:41] LABS: Bedside Glucose 219 mg/dL (70-110)
[2019-04-26] MEDS: Morphine 2 MG/ML Syringe IV (01:41)
[2019-04-26] MEDS: 0.9% Saline Lock 10 ML Syringe IV ×2 (01:41→11:31)
[2019-04-26] MEDS: Polyethylene Glycol 3350 17 GM PACKET 34 GM PO (03:39)
[2019-04-26 07:08] LABS: Hematocrit 31.3 % (37-47); Hemoglobin 9.7 g/dL (12.0-15.0); Mean Corpuscular Hgb 30.4 pg (27.0-32.0); Mean Corpuscular Volume 98.1 fL (81-99); Mean Platelet Vol. 11.1 fl (6.2-12.0); POSITIVE COUNT YES; POSITIVE DIFFERENTIAL YES; POSITIVE MORPHOLOGY YES; Platelet Count 157 K/mm3 (150-450); RBC Distribution Width CV 17.2 % (11.6-14.6); RBC Distribution Width SD 61.9 fl (35.1-43.9); Red Blood Count 3.19 M/mm3 (4.2-5.4); White Blood Count 10.1 K/mm3 (4.4-11.0)
[2019-04-26 07:10] LABS: Differential Indicated MANUAL DIFF
[2019-04-26 07:22] LABS: Anion Gap 12 (5-15); BUN 40 mg/dL (7-18); BUN/Creat Ratio 7.9 RATIO (10-20); Calcium,Total 8.7 mg/dL (8.5-10.1); Chloride 99 mmol/L (98-107); Creatinine, Serum 5.05 mg/dL (0.55-1.02); EST Glomerular Filtration Rate 9 mL/min (>60); Est Glom Filt Rate - Afr Amer 11 mL/min (>60); Estimated Creatinine Clearance 10.17 ml/min; Glucose 243 mg/dL (74-106); Potassium 5.6 mmol/L (3.5-5.1); Sodium Level 136 mmol/L (136-145)
[2019-04-26 07:23] LABS: International Normalized Ratio 1.2; Prothrombin Time (Protime)PT. 15.4 SECONDS (11.7-14.9)
[2019-04-26 07:24] LABS: Partial Thromboplast Time 35.4 Seconds (24.1-36.2)
[2019-04-26 07:37] LABS: Anisocytosis 1+; Basophilic Stippling RARE; Eosinophil 1 % (0-5); Hypochromasia 1+; Lymphocyte 13 % (19-41); Metamyelocyte 1 % (0-1); Microcytosis 1+; Monocyte 16 % (0-10); Myelocyte 2 (0-0); Neutrophil-Band 4 % (0-5); Neutrophil-Segmented 63 % (47-70); Polychromasia 1+; Reactive Lymphocyte 1+; Total Cells Counted 100 (MANUAL DIFF)
[2019-04-26 07:38] LABS: Platelet Estimate ADEQUATE (ADEQ); Platelet Morphology LARGE
[2019-04-26 07:39] LABS: Absolute Lymphocyte Count 1.31 X10^3/uL (0.83-4.51); Absolute Neutrophil Count 6.8 X10^3/uL (2.0-7.7)
[2019-04-26 08:05] LABS: Hemoglobin A1c 7.4 % (4.2-6.3)
[2019-04-26] MEDS: Insulin Lispro 100 UNIT/ML INSULN.PEN SC ×3 (08:12→22:08)
[2019-04-26 08:15] LABS: Bedside Glucose 218 mg/dL (70-110)
[2019-04-26] MEDS: 0.9% Normal Saline 1,000 ML 999 ML IV ×2 (08:17→16:56)
--- NOTE | 2019-04-26 10:06 | PN_ITS ---
Patient Problems: Active and Suspected Problems (Last Updated 09/19/18 @ 07:24 by Rema Ocampo) Wound, open, abdominal wall, anterior (Acute) Hyperkalemia (Acute) Subjective: Patient seen and examined. She was admitted with a complaint of lower abdominal wound, which was initially the size of a thumbnail, and progressively enlarged with associated foul odor, and severe pain. She had associated eschar formation. CT abdomen and pelvis showed a 3.6 x 5.3 ill defined soft tissue density deep in the subcutaneous tissue overlying posterior right lateral abdominal wall. She is being managed for cellulitis of the lower abdomen. Plastic surgeryis on board and she is on IV vancomycin and zosyn. Patient seen and examined. She was quite lethargic and confused, and this was thought to be due to the morphine that she had received this morning. She was quite difficult to arouse and was quite confused but did admit to severe pain over the lower abdomen. Review of systems otherwise negative. She was noted to have low blood pressure with blood pressure being around 84/42 and this was noted to have dropped from the low 100s after she received morphine. Vitals/I&O's: Vital Signs Temp Pulse Resp BP Pulse Ox 97.7 F L 94 20 H 84/46 L 96 04/26/19 10:04 04/26/19 10:04 04/26/19 10:04 04/26/19 10:04 04/26/19 10:04 Oxygen Delivery Method Room Air Weight: 252 lb 13.923 oz Body Mass Index (BMI) 44.2 Intake and Output for Last 24 Hours 04/24/19 04/25/19 04/26/19 23:59 23:59 23:59 Intake Total 2548.33 / 2548.33 Balance 2548.33 / 2548.33 General: Alert, Cooperative, Confused, Lethargic HEENT: Atraumatic, PERRLA, EOMI, Normocephalic Oral: Dry Mucosa Neck: Supple, No JVD, Negative Carotid Bruits Lungs: Clear to auscultation, Normal air movement, No rhonchi, No wheeze, No rales Cardiovascular: Regular rate, Regular Rhythm, Normal S1, Normal S2, No murmurs Abdomen: Bowel Sounds Present, Soft, Non Tender Extremities: No clubbing, No cyanosis, No edema, Capillary Refill Less than 3 Seconds Skin: - - large black eschar over lower abdomen, very tender to touch. Has smaller lateral satellite superficial ulcerations, with associated erythema. Musculoskeletal: No Tenderness to Palpation of Joints or Extremities Lymphatic: No Cervical, Supraclavicular, or Inguinal Adenopathy Neurological: Cranial nerves II-XII grossly intact, Neuro grossly intact, Motor Exam 5/5 strength throughout Psych/Mental Status: - - confused Laboratory Results 04/25/19 14:55: WBC 12.4 H, RBC 4.10 L, Hgb 12.5, Hct 39.4, MCV 96.1, MCH 30.5, MCHC 31.7 L, RDW Std Deviation 59.8 H, RDW Coeff of Perico 17.2 H, Plt Count 195, MPV 10.8, Neut % (Auto) Not Reportable, Absolute Neuts (auto) 9.8 H, Absolute Lymphs (auto) 1.36, Total Counted 100, Neutrophils % (Manual) 74 H, Band Neutrophils % 5, Lymphocytes % (Manual) 11 L, Monocytes % (Manual) 5, Eosinophils % (Manual) 1, Metamyelocytes % 1, Myelocytes % 2 H, Promyelocytes % 1 H, Diff Path Review October04/25/19 14:55: Sodium 133 L, Potassium 6.0 H*, Chloride 97 L, Carbon Dioxide 28.0, Anion Gap 8, BUN 31 H, Creatinine 4.03 H, Estim Creat Clear Calc 12.18, Est GFR (MDRD) Af Amer 15 L, Est GFR (MDRD) Non-Af 12 L, BUN/Creatinine Ratio 7.7 L, Glucose 146 H, Calcium 9.7 04/25/19 20:38: Sodium 133 L, Potassium 5.9 H, Chloride 98, Carbon Dioxide 26.0, Anion Gap 9, BUN 35 H, Creatinine 4.42 H, Estim Creat Clear Calc 11.62, Est GFR (MDRD) Af Amer 13 L, Est GFR (MDRD) Non-Af 11 L, BUN/Creatinine Ratio 7.9 L, Glucose 163 H, Calcium 9.6 04/25/19 22:54: POC Glucose 165 H 04/26/19 01:30: POC Glucose 219 H 04/26/19 07:00: WBC 10.1, RBC 3.19 L, Hgb 9.7 L, Hct 31.3 L, MCV 98.1, MCH 30.4, MCHC 31.0 L, RDW Std Deviation 61.9 H, RDW Coeff of Perico 17.2 H, Plt Count 157, MPV 11.1, Neut % (Auto) Not Reportable, Absolute Neuts (auto) 6.8, Absolute Lymphs (auto) 1.31, Total Counted 100, Neutrophils % (Manual) 63, Band Neutrophils % 4, Lymphocytes % (Manual) 13 L, Monocytes % (Manual) 16 H, Eosinophils % (Manual) 1, Metamyelocytes % 1, Myelocytes % 2 H, Diff Path Review May foll, Reactive Lymphocytes 1+, Platelet Estimate ADEQUATE, Plt Morphology Comment LARGE, Polychromasia 1+, Hypochromasia 1+, Basophilic Stippling RARE, Anisocytosis 1+, Microcytosis 1+ 04/26/19 07:00: Sodium 136, Potassium 5.6 H, Chloride 99, Carbon Dioxide 25.0, Anion Gap 12, BUN 40 H, Creatinine 5.05 H, Estim Creat Clear Calc 10.17, Est GFR (MDRD) Af Amer 11 L, Est GFR (MDRD) Non-Af 9 L, BUN/Creatinine Ratio 7.9 L, Glucose 243 H, Calcium 8.7 04/26/19 07:00: Hemoglobin A1c 7.4 H 04/26/19 07:00: PT 15.4 H, INR 1.2, APTT 35.4 04/26/19 08:10: POC Glucose 218 H Diagnostic Data Abdomen/Pelvis CT 04/25/19 14:26 IMPRESSION: Atherosclerosis. 3.6 cm x 5.3 cm ill-defined soft tissue density in deep subcutaneous tissues overlying the posterior right lateral abdominal wall. The overlying skin is unremarkable. Electronically Signed: Sylvester Minaya, at 15:29 EST , Service support , Current Medications Acetaminophen (Tylenol) 650 mg PO Q6H PRN PRN PRN Reason: Non-cardiac pain (mod-severe) Hydrocodone Bitart/Acetaminophen ([place] 5mg-325mg) 1 - 2 tablet PO Q4H PRN PRN PRN Reason: Pain Score 4-10/10 Al Hydroxide/Mg Hydroxide (Mylanta Ii) 15 - 30 ml PO Q4H PRN PRN PRN Reason: INDIGESTION Albuterol Sulfate (Ventolin Aerosols) 2.5 mg INHALATION Q2H PRN PRN PRN Reason: dyspnea, wheezing Atorvastatin Calcium (Lipitor) 20 mg PO QHS [facility] Last Admin: 04/25/19 22:47 Dose: 20 mg Documented by: Buspirone HCl (Buspar) 5 mg PO TID [facility] Last Admin: 04/26/19 06:30 Dose: Not Given Documented by: Carvedilol (Coreg) 12.5 mg PO BID [facility] Last Admin: 04/26/19 07:55 Dose: Not Given Documented by: Dextrose (D50w Syringe) 0 gm IV X1 PRN; Protocol PRN Reason: Hypoglycemia Furosemide (Lasix) 80 mg PO BIDLX [facility] Last Admin: 04/26/19 07:55 Dose: Not Given Documented by: Gabapentin (Neurontin) 400 mg PO TIDCM [facility] Last Admin: 04/26/19 07:54 Dose: Not Given Documented by: Glucagon () 1 mg IM .X1 PRN PRN Reason: Hypoglycemia Heparin Sodium (Porcine) (Heparin Na) 5,000 unit SC Q12 [facility] Last Admin: 04/26/19 07:55 Dose: Not Given Documented by: Hydralazine HCl (Apresoline Iv) 10 mg IV Q4H PRN PRN PRN Reason: SBP > 160 Piperacillin Sod/Tazobactam (Sod 3.375 gm/ Sodium Chloride) 50 mls @ 12.5 mls/hr IV Q12 [facility] Last Infusion: 04/26/19 00:29 Dose: Infused Documented by: Vancomycin IV Pharmacy to Dose (1 ea/ Sodium Chloride) 500 mls @ 250 mls/hr IV PRN PRN; Protocol PRN Reason: Rx to Dose Sodium Chloride () 250 mls @ 15 mls/hr IV .[id number] PRN PRN Reason: Saline Flush Last Admin: 04/26/19 01:50 Dose: 15 mls/hr Documented by: Insulin Glargine (Lantus (Bkc)) 37 units SC DAILY [facility] Last Admin: 04/26/19 08:12 Dose: Not Given Documented by: Insulin Human Lispro (Humalog Kwikpen (Bk)) 12 unit SC TIDAC [facility] Last Admin: 04/26/19 08:11 Dose: Not Given Documented by: Insulin Human Lispro (Humalog Kwikpen ([facility])) 0 unit SC ACHS [facility]; Protocol Last Admin: 04/26/19 08:12 Dose: 2 u Documented by: Magnesium Hydroxide (Milk Of Magnesia) 30 ml PO DAILY PRN PRN Reason: Constipation Melatonin (Melatonin) 3 mg PO QHS PRN PRN Reason: SLEEP Montelukast Sodium (Singulair) 10 mg PO QHS [facility] Last Admin: 04/25/19 22:47 Dose: 10 mg Documented by: Morphine Sulfate () 2 - 4 mg IV Q4H PRN PRN PRN Reason: Pain Score 1-10/10 Last Admin: 04/26/19 01:41 Dose: 2 mg Documented by: Nutritional Formula (Lactose Free) (Glucerna Shake) 120 ml PO 4X/DAY [facility] Last Admin: 04/26/19 07:55 Dose: Not Given Documented by: Ondansetron HCl (Zofran) 4 mg IV Q8H PRN PRN PRN Reason: NAUSEA/VOMITING Pantoprazole Sodium (Protonix) 20 mg PO DAILY [facility] Last Admin: 04/26/19 07:55 Dose: Not Given Documented by: Polyethylene Glycol (Miralax) 34 gm PO X1 PRN PRN Reason: Bowel Movement Prednisone () 30 mg PO 1200 SHAHANA Sertraline HCl (Zoloft) 100 mg PO DAILY [facility] Last Admin: 04/26/19 07:55 Dose: Not Given Documented by: Sevelamer Carbonate (Renvela) 2,400 mg PO TIDCM [facility] Sodium Chloride () 10 - 40 ml IV UD PRN PRN Reason: SALINE FLUSH Last Admin: 04/26/19 01:41 Dose: 10 ml Documented by: STROKE Vital Signs/Narrative: Vital Signs Temp Pulse Resp BP BP Pulse Ox 04/26/19 10:04 97.7 F L 94 20 H 84/46 L 96 04/26/19 08:41 83/46 L 04/26/19 07:46 93 04/26/19 07:20 98.5 F 91 20 H 81/42 L 96 04/26/19 07:18 92 04/26/19 06:31 94/46 L 04/26/19 06:22 98.3 F 93 16 84/53 L 96 Medical Necessity - Tobacco Use Smoking Status: Never smoker Tobacco Use: Non-smoker Assessment/Plan All Active Problems (Last Updated 09/19/18 @ 07:24 by Rema Ocampo) Abdominal wall pain in right flank (Acute) Skin necrosis (Acute) Calciphylaxis (Acute) Cutaneous abscess of abdominal wall (Acute) Complication due to medical care (Acute) Type 2 diabetes mellitus with other skin ulcer (Acute) Neuropathic pain of left hand (Acute) Wound, open, abdominal wall, anterior (Acute) Hyperkalemia (Acute) Pneumonia (Acute) NOEL (acute kidney injury) (Acute) Problem with dialysis access (Acute) Debility (Acute) 1. Abdominal wall abscess * calciphylaxis is also a suspicion in light of her history of ESRD * WBC is mildly elevated at 12.4 but is not to 10.1 this morning. * Plastic surgery on board. Currently on IV vancomycin and IV Zosyn. * Wound nurse on board * on tylenol for pain * 2. Hyperkalemia: Likely due to ESRD. Potassium today is 5.6. Nephrology on board on account of ESRD. Will need dialysis. 3. Hypotension: * likely medication induced; BP noted to have dropped after she received narcotics. Hold BP meds and give bolus of IV Normal saline 1L. * hold opiates 4. ESRD: On dialysis Saturdays. Nephrology on board. 5. Hypertension: * We will hold medications on account of hypotension today. * Blood pressure dropped to 82/42 after she was given narcotics. * Hold Coreg and Lasix as well as losartan and hydralazine. 6. Hyperlipidemia: On statin. 7. Type 2 diabetes mellitus. A1c 7.4. Insulin sliding scale. Accu-Chek cc at bedtime. 8. 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 9. Anxiety and depression: On BuSpar and sertraline. 10. Anemia of chronic disease. Hemoglobin is 9.7 today. Was 10.5 on admission. Will be due to IV fluid demonstration. Will monitor. 10.GERD: on PPI DVT prophylaxis: heparin Code Visit Inpatient E&M: 45171 [facility] L3
--- NOTE | 2019-04-26 10:10 | CASEMGMT ---
Patient is from [facility]. JOLIE faxed updates to [facility]. JOLIE also called and spoke with Elizabeth letting her know about fax and that patient is having surgery today. Patient will need insurance authorization to return. Nadja GARCIA MSW
--- NOTE | 2019-04-26 10:17 | NURSING ---
wound photo: abdomen
--- NOTE | 2019-04-26 10:18 | NURSING ---
wound photo: right buttock
--- NOTE | 2019-04-26 10:18 | NURSING ---
wound photo: left buttock
[2019-04-26 11:37] LABS: Phosphorus 5.8 mg/dL (2.5-4.9)
[2019-04-26 11:46] LABS: Bedside Glucose 162 mg/dL (70-110)
--- NOTE | 2019-04-26 11:52 | NURSING ---
called report to AC at this time.
[2019-04-26 13:47] LABS: Pathologist Review Reviewed
[2019-04-26 13:48] LABS: Pathologist Review Reviewed
--- NOTE | 2019-04-26 13:50 | ABS_PTH ---
PATIENT: STACEY WOODSON LOC: [facility] U#:[id number] AGE/SX: 59/F ROOM: [id number] RE04/25/[address]: Dr. Toma Naylor MD : 1960 BED: 1 DIS: 05/03/2019 SPEC #: [id number] RECD: 04/29/19 07:38 STATUS: DEVI RELuisa #: [id number] HORACIO: 04/26/19 13:[address]: Terrence Salamanca DEPT: SURGICAL PATHOLOGY RECD BY: Balwinder Ag ENTERED: 04/29/19 09:33 SP TYPE: Abscess OTHR DR: MD Dr. Jillian Rios DO Dr. Mark Tereletsky, DO Dr. Shobha Khandewal, MD Tissues: Abdominal wall, NOS Procedures: Surgery Specimen Level IV HEADER OPERATION: Surgical prep right lateral abdominal wall with I & D PRE-OP DIAGNOSIS: Nonhealing infected diabetic ulcerated abscess right lateral abdominal wall TISSUE SUBMITTED: Nonhealing infected diabetic ulcerated abscess right lateral abdominal wall MICROSCOPIC DIAGNOSIS Skin and soft tissue, right lateral abdominal wall, excision: Ulceration with associated acute and chronic inflammation. AM:rafael 04/30/19 MICROSCOPIC DESCRIPTION Slides are reviewed. GROSS DESCRIPTION Received in fixative is one container labeled with the patient's name and designated nonhealing infected abscess right lateral abdominal wall. The specimen consists of an irregular fragment of pink-kwan skin with attached yellow fatty tissue measuring 20 x 14 cm in length excised to a depth of 6 cm. The cutaneous surface displays three ulcerated lesions ranging in size from 2 cm and 10 cm in greatest dimension. Serial sections do not reveal mass lesions. Mold Cutting Machine Operator sections are submitted in four cassettes as follows: 1 - smallest ulcer, 2 - second largest ulcer and 3 & 4 - largest ulcer. / AM:rafael 04/29/19 TC:2 CPT: 93558
--- NOTE | 2019-04-26 14:18 | OP.PCM_ITS ---
Report of Operation Date of Procedure: 04/26/19 Pre-Operative Diagnosis: 1. Nonhealing infected diabetic necrotic ulcerated abscesses right lateral abdominal wall. 2. Painful insulin nodules abdominal wall. 3. Diabetes mellitus. 4. ESRD requiring dialysis. 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 6. Abdominal panniculus. 7. Abdominal wall skin crease intertrigo. Post-Operative Diagnosis: 1. 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 2. Painful insulin nodules abdominal wall. 3. Diabetes mellitus. 4. ESRD requiring dialysis. 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 6. Abd ominal panniculus. 7. Abdominal wall skin crease intertrigo. Surgery/Procedure Performed:: Surgical preparation right lateral abdominal wall with incision and drainage and excisional debridement skin and subcutaneous tissue and fascia nonhealing infected diabetic necrotic ulcerated abscesses necrotizing soft tissue infection (377 cm2) and abdominal panniculectomy. Description of Surgical Findings:: The patient is a 59 y/o F with a history of diabetes mellitus and ESRD requiring dialysis presented to the ED with increasing pain and drainage and skin necrosis right lateral abdominal wall that has worsened over the last several days. She denies trauma. She denies fever. Her temp in the ED was 99.9. WBC was 12.4. K was 6.0. Creatinine was 4.03. CT Abdomen and Pelvis was done which showed 3.6 cm x 5.3 cm ill-defined soft tissue density in deep subcutaneous tissues overlying the posterior right lateral abdominal wall. She was started on IV Vancomycin and Zosyn. She gets dialyzed on Monday, , and Monday. She states she has received insulin injections in the abdominal wall. I was asked to evaluate this patient for surgical options for treatment. Patient was informed of the risks and complications of the procedure including alternatives to surgery. These were discussed with the patient personally. Patient voices understanding and wishes to proceed. Size of defect right lateral abdominal wall - 29 x 13 x 6 cm. instrument shop supervisor: None Type of Anesthesia:: General Specimen's removed: Nonhealing infected diabetic necrotic ulcerated abscess right lateral abdominal wall to Pathology and Microbiology. Drains: None. Estimated Blood Loss (mL): 150 ml. Description of Procedure: Patient was taken to OR in supine position and was placed under general anesthesia. The abdominal wall was prepped and draped in the usual fashion. SCD's were placed for DVT prophylaxis. Perioperative antibiotics were given intravenously. I proceeded with excisional debridement of the nonhealing infection diabetic necrotic ulcerated abscesses in the right lateral abdominal wall down into the subcutaneous tissue. A lot of extensive fat necrosis was present. No pus was seen. The fat necrosis extended past Bobby's fascia down to the abdominal wall fascia. This extensive fat necrosis was excised and debrided. She also has extensive abdominal wall skin crease intertrigo, and her large abdominal panniculus is at risk for further worsening infection because her immune system is decreased due to her history of kidney failure requiring dialysis and her history of diabetes. Therefore an abdominal panniculectomy was also performed from the pubic area superiorly to the umbilicus. Tissue excised was sent to Pathology for analysis to rule out carcinoma. Tissue was also sent to Microbiology for culture. A positive culture will necessitate antibiotic therapy. The wound was irrigated with saline. Hemostasis was obtained with electrocautery. Dimensions of the right lateral abdominal wall wound after surgical preparation right lateral abdominal wall with excisional debridement skin and subcutaneous tissue and fascia necrotizing soft tissue infection from nonhealing infected diabetic necrotic ulcerated abscesses and abdominal panniculectomy were 29 x 13 x 6 She cm or 377 cm2. The wound was then dressed with Mepitel nonadherent dressing followed by Kerlix gauze and Betadine followed by dry Kerlix gauze and ABD compression dressing. An abdominal wall binder was also placed to keep the dressing in place. Patient tolerated the procedure well and was sent to PACU in satisfactory condition. Patient will be sent upstairs for continued postop care. She will continue IV antibiotics. The VAC will be placed tomorrow. Will also check a Prealbumin and encourage nutritional supplementation with protein to help the healing process. After discharge she will [facility]. If there is a plateau in the healing process, can proceed in a delayed fashion with further operative debridement and skin grafting or complex secondary wound closure. She gets dialyzed on Monday, , and Monday. Grafts/Implants Used: None. - Complications None. - Admit VTE Documentation VTE Present on Admission: No VTE Mechan Device Prophylaxis: SCD's VTE Pharm Prophylaxis ordered?: Yes Code Visit Surgery Charges CPT - 99392 ICD-10 - E11.622, I96, L02.211, M79.89, R10.9, T88.9xxA, N18.6, E83.59 97385 E65, L30.4, E11.622, I96, L02.211, M79.89, R10.9, T88.9xxA, N18.6, E83.59
--- NOTE | 2019-04-26 14:26 | PCM.CONS.R ---
Consultation - Renal 04/26/19 PCP/ Referring MD: Requesting physician: [] Primary care physician: Marcela Kerr MD Reason for Consultation:: ESRD HD THS - History of Present Illness History of Present Illness: The patient is a 59 year old F with ESRD due to diabetes on HD THS at [facility] [place] [facility] admitted for nonhealing skin necrosis on lower abdomen present past week increasing in size. She has pain over wound. She has received wound care at [facility]. Denies fever, chills. 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 She has HTN now with low BP's, morbid obesity. She has history of hyperphosphatemia not receiving binders in a timely manner at [facility] or receiving a renal diet. CT abdomen and pelvis report a 3.6 x 5.3 cm ill-defined soft tissue density in the deep subcutaneous tissues overlying the posterior right lateral abdominal wall with overlying skin unremarkable. Pt started on iv antibiotics. She is scheduled for debridement today. Her last full treatment was yesterday. She has high interdialytic fluid gains. She required intermittent IUF for high gains over target wt. Potassium elevated today. - Allergies Allergies: Allergies latex Allergy (Verified 04/25/19 13:59) Hives Sulfa (Sulfonamide Antibiotics) Allergy (Verified 04/25/19 13:59) Rash codeine Adverse Reaction (Verified 04/25/19 13:59) Confusion - Current Medications Current Medications: Current Medications Acetaminophen (Tylenol) 650 mg PO Q6H PRN PRN PRN Reason: Non-cardiac pain (mod-severe) Hydrocodone Bitart/Acetaminophen ([place] 5mg-325mg) 1 - 2 tablet PO Q4H PRN PRN PRN Reason: Pain Score 4-10/10 Al Hydroxide/Mg Hydroxide (Mylanta Ii) 15 - 30 ml PO Q4H PRN PRN PRN Reason: INDIGESTION Albuterol Sulfate (Ventolin Aerosols) 2.5 mg INHALATION Q2H PRN PRN PRN Reason: dyspnea, wheezing Atorvastatin Calcium (Lipitor) 20 mg PO QHS [facility] Last Admin: 04/25/19 22:47 Dose: 20 mg Documented by: Buspirone HCl (Buspar) 5 mg PO TID [facility] Last Admin: 04/26/19 13:38 Dose: Not Given Documented by: Carvedilol (Coreg) 12.5 mg PO BID [facility] Last Admin: 04/26/19 07:55 Dose: Not Given Documented by: Dextrose (D50w Syringe) 0 gm IV X1 PRN; Protocol PRN Reason: Hypoglycemia Furosemide (Lasix) 80 mg PO BIDLX [facility] Last Admin: 04/26/19 07:55 Dose: Not Given Documented by: Gabapentin (Neurontin) 400 mg PO TIDCM [facility] Last Admin: 04/26/19 11:21 Dose: Not Given Documented by: Glucagon () 1 mg IM .X1 PRN PRN Reason: Hypoglycemia Heparin Sodium (Porcine) (Heparin Na) 5,000 unit SC Q12 [facility] Last Admin: 04/26/19 07:55 Dose: Not Given Documented by: Hydralazine HCl (Apresoline Iv) 10 mg IV Q4H PRN PRN PRN Reason: SBP > 160 Piperacillin Sod/Tazobactam (Sod 3.375 gm/ Sodium Chloride) 50 mls @ 12.5 mls/hr IV Q12 [facility] Last Admin: 04/26/19 11:18 Dose: 12.5 mls/hr Documented by: Vancomycin IV Pharmacy to Dose (1 ea/ Sodium Chloride) 500 mls @ 250 mls/hr IV PRN PRN; Protocol PRN Reason: Rx to Dose Sodium Chloride () 250 mls @ 15 mls/hr IV .[id number] PRN PRN Reason: Saline Flush Last Infusion: 04/26/19 11:19 Dose: 0 mls/hr Documented by: Insulin Glargine (Lantus (Bkc)) 37 units SC DAILY [facility] Last Admin: 04/26/19 08:12 Dose: Not Given Documented by: Insulin Human Lispro (Humalog Kwikpen (Bkc)) 12 unit SC TIDAC [facility] Last Admin: 04/26/19 11:21 Dose: Not Given Documented by: Insulin Human Lispro (Humalog Kwikpen (Bkc)) 0 unit SC ACHS [facility]; Protocol Last Admin: 04/26/19 11:34 Dose: 1 u Documented by: Magnesium Hydroxide (Milk Of Magnesia) 30 ml PO DAILY PRN PRN Reason: Constipation Melatonin (Melatonin) 3 mg PO QHS PRN PRN Reason: SLEEP Montelukast Sodium (Singulair) 10 mg PO QHS [facility] Last Admin: 04/25/19 22:47 Dose: 10 mg Documented by: Morphine Sulfate () 2 - 4 mg IV Q4H PRN PRN PRN Reason: Pain Score 1-10/10 Last Admin: 04/26/19 01:41 Dose: 2 mg Documented by: Ondansetron HCl (Zofran) 4 mg IV Q8H PRN PRN PRN Reason: NAUSEA/VOMITING Pantoprazole Sodium (Protonix) 20 mg PO DAILY [facility] Last Admin: 04/26/19 07:55 Dose: Not Given Documented by: Polyethylene Glycol (Miralax) 34 gm PO X1 PRN PRN Reason: Bowel Movement Prednisone () 30 mg PO 1200 [facility] Last Admin: 04/26/19 11:21 Dose: Not Given Documented by: Sertraline HCl (Zoloft) 100 mg PO DAILY [facility] Last Admin: 04/26/19 07:55 Dose: Not Given Documented by: Sevelamer Carbonate (Renvela) 2,400 mg PO TIDCM [facility] Last Admin: 04/26/19 11:21 Dose: Not Given Documented by: Sodium Chloride () 10 - 40 ml IV UD PRN PRN Reason: SALINE FLUSH Last Admin: 04/26/19 11:31 Dose: 10 ml Documented by: - Past Medical History Past Medical History (Chronic Problems): Chronic Problems (Last Updated 09/19/18 @ 07:24 by Rema Ocampo) ESRD on dialysis (Chronic) Anxiety and depression (Chronic) ESRD (end stage renal disease) (Chronic) Morbid obesity (Chronic) Chronic diastolic CHF (congestive heart failure) (Chronic) 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 - Social History Smoking Status: Never smoker Alcohol: None Drugs: None - Family History Maternal Family History: Family History (Last Updated 09/19/18 @ 07:27 by Rema Ocampo) Father Diabetes Mother Heart disease History Items: Cancer, Heart Disease Paternal Family History: Family History (Last Updated 09/19/18 @ 07:27 by Rema Ocampo) Father Diabetes Mother Heart disease History Items: Diabetes, Heart Disease, Hypertension Sibling Family History: Family History (Last Updated 09/19/18 @ 07:27 by Rema Ocampo) Father Diabetes Mother Heart disease History Items: Diabetes Review of Systems Constitutional: Denies: Chills, Fever Cardiovascular: Denies: Chest Pain Respiratory: Denies: Shortness of Breath Gastrointestinal: Denies: Abdominal Pain, Nausea, Vomiting Skin: Reports: Wounds - abdominal wound increased in size, black, painful Hematologic/ Lymphatic: Reports: Anemia Patient Problems: Active and Suspected Problems (Last Updated 09/19/18 @ 07:24 by Rema Ocampo) Wound, open, abdominal wall, anterior (Acute) Hyperkalemia (Acute) - Physical Exam Vitals/I&O's: Vital Signs Temp Pulse Resp BP Pulse Ox 98.8 F 98 20 H 96/53 L 94 04/26/19 11:47 04/26/19 11:47 04/26/19 11:47 04/26/19 11:47 04/26/19 11:47 Oxygen Delivery Method Room Air Weight: 114.7 kg Body Mass Index (BMI) 44.8 Intake and Output for Last 24 Hours 04/24/19 04/25/19 04/26/19 23:59 23:59 23:59 Intake Total 2895.58 / 2895.58 Balance 2895.58 / 2895.58 General: - - sedated, arrousable Lungs: Clear to auscultation Cardiovascular: Regular rate Abdomen: Bowel Sounds Present, Obese Skin: Ulcer/ Wound - bandage applied Musculoskeletal: Muscle Wasting, - - weakness BLE Neurological: - - neuropathy, CIDP Laboratory Results 04/25/19 14:55: WBC 12.4 H, RBC 4.10 L, Hgb 12.5, Hct 39.4, MCV 96.1, MCH 30.5, MCHC 31.7 L, RDW Std Deviation 59.8 H, RDW Coeff of Perico 17.2 H, Plt Count 195, MPV 10.8, Neut % (Auto) Not Reportable, Absolute Neuts (auto) 9.8 H, Absolute Lymphs (auto) 1.36, Total Counted 100, Neutrophils % (Manual) 74 H, Band Neutrophils % 5, Lymphocytes % (Manual) 11 L, Monocytes % (Manual) 5, Eosinophils % (Manual) 1, Metamyelocytes % 1, Myelocytes % 2 H, Promyelocytes % 1 H, Diff Path Review Reviewed 04/25/19 14:55: Sodium 133 L, Potassium 6.0 H*, Chloride 97 L, Carbon Dioxide 28.0, Anion Gap 8, BUN 31 H, Creatinine 4.03 H, Estim Creat Clear Calc 12.18, Est GFR (MDRD) Af Amer 15 L, Est GFR (MDRD) Non-Af 12 L, BUN/Creatinine Ratio 7.7 L, Glucose 146 H, Calcium 9.7 04/25/19 20:38: Sodium 133 L, Potassium 5.9 H, Chloride 98, Carbon Dioxide 26.0, Anion Gap 9, BUN 35 H, Creatinine 4.42 H, Estim Creat Clear Calc 11.62, Est GFR (MDRD) Af Amer 13 L, Est GFR (MDRD) Non-Af 11 L, BUN/Creatinine Ratio 7.9 L, Glucose 163 H, Calcium 9.6 04/25/19 22:54: POC Glucose 165 H 04/26/19 01:30: POC Glucose 219 H 04/26/19 07:00: WBC 10.1, RBC 3.19 L, Hgb 9.7 L, Hct 31.3 L, MCV 98.1, MCH 30.4, MCHC 31.0 L, RDW Std Deviation 61.9 H, RDW Coeff of Perico 17.2 H, Plt Count 157, MPV 11.1, Neut % (Auto) Not Reportable, Absolute Neuts (auto) 6.8, Absolute Lymphs (auto) 1.31, Total Counted 100, Neutrophils % (Manual) 63, Band Neutrophils % 4, Lymphocytes % (Manual) 13 L, Monocytes % (Manual) 16 H, Eosinophils % (Manual) 1, Metamyelocytes % 1, Myelocytes % 2 H, Diff Path Review Reviewed, Reactive Lymphocytes 1+, Platelet Estimate ADEQUATE, Plt Morphology Comment LARGE, Polychromasia 1+, Hypochromasia 1+, Basophilic Stippling RARE, Anisocytosis 1+, Microcytosis 1+ 04/26/19 07:00: Sodium 136, Potassium 5.6 H, Chloride 99, Carbon Dioxide 25.0, Anion Gap 12, BUN 40 H, Creatinine 5.05 H, Estim Creat Clear Calc 10.17, Est GFR (MDRD) Af Amer 11 L, Est GFR (MDRD) Non-Af 9 L, BUN/Creatinine Ratio 7.9 L, Glucose 243 H, Calcium 8.7 04/26/19 07:00: Hemoglobin A1c 7.4 H 04/26/19 07:00: PT 15.4 H, INR 1.2, APTT 35.4 04/26/19 07:00: Phosphorus 5.8 H 04/26/19 08:10: POC Glucose 218 H 04/26/19 11:33: POC Glucose 162 H Current Medications Acetaminophen (Tylenol) 650 mg PO Q6H PRN PRN PRN Reason: Non-cardiac pain (mod-severe) Hydrocodone Bitart/Acetaminophen ([place] 5mg-325mg) 1 - 2 tablet PO Q4H PRN PRN PRN Reason: Pain Score 4-10/10 Al Hydroxide/Mg Hydroxide (Mylanta Ii) 15 - 30 ml PO Q4H PRN PRN PRN Reason: INDIGESTION Albuterol Sulfate (Ventolin Aerosols) 2.5 mg INHALATION Q2H PRN PRN PRN Reason: dyspnea, wheezing Atorvastatin Calcium (Lipitor) 20 mg PO QHS [facility] Last Admin: 04/25/19 22:47 Dose: 20 mg Documented by: Buspirone HCl (Buspar) 5 mg PO TID [facility] Last Admin: 04/26/19 13:38 Dose: Not Given Documented by: Carvedilol (Coreg) 12.5 mg PO BID [facility] Last Admin: 04/26/19 07:55 Dose: Not Given Documented by: Dextrose (D50w Syringe) 0 gm IV X1 PRN; Protocol PRN Reason: Hypoglycemia Furosemide (Lasix) 80 mg PO BIDLX [facility] Last Admin: 04/26/19 07:55 Dose: Not Given Documented by: Gabapentin (Neurontin) 400 mg PO TIDCM [facility] Last Admin: 04/26/19 11:21 Dose: Not Given Documented by: Glucagon () 1 mg IM .X1 PRN PRN Reason: Hypoglycemia Heparin Sodium (Porcine) (Heparin Na) 5,000 unit SC Q12 [facility] Last Admin: 04/26/19 07:55 Dose: Not Given Documented by: Hydralazine HCl (Apresoline Iv) 10 mg IV Q4H PRN PRN PRN Reason: SBP > 160 Piperacillin Sod/Tazobactam (Sod 3.375 gm/ Sodium Chloride) 50 mls @ 12.5 mls/hr IV Q12 [facility] Last Admin: 04/26/19 11:18 Dose: 12.5 mls/hr Documented by: Vancomycin IV Pharmacy to Dose (1 ea/ Sodium Chloride) 500 mls @ 250 mls/hr IV PRN PRN; Protocol PRN Reason: Rx to Dose Sodium Chloride () 250 mls @ 15 mls/hr IV .[id number] PRN PRN Reason: Saline Flush Last Infusion: 04/26/19 11:19 Dose: 0 mls/hr Documented by: Insulin Glargine (Lantus ([facility])) 37 units SC DAILY [facility] Last Admin: 04/26/19 08:12 Dose: Not Given Documented by: Insulin Human Lispro (Humalog Kwikpen ([facility])) 12 unit SC TIDAC [facility] Last Admin: 04/26/19 11:21 Dose: Not Given Documented by: Insulin Human Lispro (Humalog Kwikpen ([facility])) 0 unit SC ACHS [facility]; Protocol Last Admin: 04/26/19 11:34 Dose: 1 u Documented by: Magnesium Hydroxide (Milk Of Magnesia) 30 ml PO DAILY PRN PRN Reason: Constipation Melatonin (Melatonin) 3 mg PO QHS PRN PRN Reason: SLEEP Montelukast Sodium (Singulair) 10 mg PO QHS [facility] Last Admin: 04/25/19 22:47 Dose: 10 mg Documented by: Morphine Sulfate () 2 - 4 mg IV Q4H PRN PRN PRN Reason: Pain Score 1-10/10 Last Admin: 04/26/19 01:41 Dose: 2 mg Documented by: Ondansetron HCl (Zofran) 4 mg IV Q8H PRN PRN PRN Reason: NAUSEA/VOMITING Pantoprazole Sodium (Protonix) 20 mg PO DAILY [facility] Last Admin: 04/26/19 07:55 Dose: Not Given Documented by: Polyethylene Glycol (Miralax) 34 gm PO X1 PRN PRN Reason: Bowel Movement Prednisone () 30 mg PO 1200 [facility] Last Admin: 04/26/19 11:21 Dose: Not Given Documented by: Sertraline HCl (Zoloft) 100 mg PO DAILY [facility] Last Admin: 04/26/19 07:55 Dose: Not Given Documented by: Sevelamer Carbonate (Renvela) 2,400 mg PO TIDCM [facility] Last Admin: 04/26/19 11:21 Dose: Not Given Documented by: Sodium Chloride () 10 - 40 ml IV UD PRN PRN Reason: SALINE FLUSH Last Admin: 04/26/19 11:31 Dose: 10 ml Documented by: Assessment/Plan All Active Problems (Last Updated 09/19/18 @ 07:24 by Rema Ocampo) Abdominal wall pain in right flank (Acute) Skin necrosis (Acute) Calciphylaxis (Acute) Cutaneous abscess of abdominal wall (Acute) Complication due to medical care (Acute) Type 2 diabetes mellitus with other skin ulcer (Acute) Neuropathic pain of left hand (Acute) Wound, open, abdominal wall, anterior (Acute) Hyperkalemia (Acute) Pneumonia (Acute) NOEL (acute kidney injury) (Acute) Problem with dialysis access (Acute) Debility (Acute) 1. ESRD HD THS and as needed for fluid mgmt, hyperkalemia 2. Abdominal wall abscess, skin necrosis. Check bx for calciphylaxis. 3. DM2 primary mgmt 4. HTN BP low stop bp meds 5. Anemia parag on dialysis 6. hyperphosphatemia, stop calcium based binders due to possible calciphylaxis 7. Hyperkalemia renal diet 8. 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
[2019-04-26 16:26] LABS: Bedside Glucose 137 mg/dL (70-110)
[2019-04-26] MEDS: Hydrocortisone Sod Succinate 100 MG/2 ML Vial IV ×2 (17:22→22:15)
[2019-04-26 20:16] LABS: Bedside Glucose 158 mg/dL (70-110)
[2019-04-26] MEDS: busPIRone 5 MG Tablet PO (22:04)
[2019-04-26] MEDS: Heparin Injection (Vial) 5,000 UNIT/ML VIAL 5000 UNIT SC (22:05)
[2019-04-26] MEDS: Atorvastatin Calcium 20 MG Tablet PO (22:15)
[2019-04-26] MEDS: Montelukast 10 MG Tablet PO (22:15)
[2019-04-26] MEDS: Acetaminophen 325 MG Tablet 650 MG PO (22:58)
[2019-04-27] VITALS (19 sets, daily range): BP systolic 97–137; BP diastolic 48–89; PULSE 74–111; RESP 12–21; TEMP 36.3–37.2; O2SAT 93–100
--- NOTE | 2019-04-27 01:08 | VDLE_ITS ---
Reason For Study: Pain RIGHT LEFT GSV is normal. GSV is normal. CFV is compressible, spontaneous, phasic, CFV is compressible, spontaneous, phasic, competent and demonstrates normal competent, and demonstrates normal augmentation. augmentation. POP V is compressible, spontaneous, phasic, FV is compressible, spontaneous, phasic, competent and demonstrates normal competent and demonstrates normal augmentation. augmentation. PTV is compressible. POP V is compressible, spontaneous, phasic, RT PerV is compressible. competent and demonstrates normal Rt FV distal and Rt T/P Trunk are dilated and augmentation. non compressible consistent with acute DVT T/P Trunk is compressible. PTV is compressible. Difficult to assess Rt calf veins due to LT PerV is compressible. severe pain with probe pressure Patient unable to bend or move left leg due to severe leg pain; unable to assess Lt PopV Relied mainly on color doppler due to severe pain with probe pressure. Difficult to assess Lt calf veins due to Procedure severe pain with probe pressure Exam performed portable in patient room. The study was technically difficult. Relied mainly on color doppler due to severe The study was technically limited. pain with probe pressure. A preliminary report was called and/or faxed to [facility]. Interpretation Summary Technically limited examination as described Acute deep venous thrombosis right distal femoral vein and tibioperoneal trunk. Limited evaluation right calf veins. No evidence for acute deep venous thrombosis left lower extremity but again limited evaluation and inability to access the popliteal vein. Bilateral great saphenous veins patent and compressible Ordering Physician: Eren Robledo Referring Physician: Marcela Lassiter Performed By: Ramandeep Tatum, RDCS, RVT
[2019-04-27] MEDS: Hydrocortisone Sod Succinate 100 MG/2 ML Vial IV ×3 (06:33→22:13)
[2019-04-27] MEDS: busPIRone 5 MG Tablet PO ×3 (06:33→22:13)
[2019-04-27 07:07] LABS: Absolute Lymphocyte Count 0.62 X10^3/uL (0.83-4.51); Absolute Neutrophil Count 8.8 X10^3/uL (2.0-7.7); Basophil# 0.04 X10^3/uL; Basophil% 0.4 % (0-1); Hematocrit 29.3 % (37-47); Hemoglobin 9.2 g/dL (12.0-15.0); Lymphocyte # 0.62 X10^3/ul (4.0); Lymphocyte % 5.9 % (19-41); Mean Corp Hgb Conc 31.4 g/dL (32-36); Mean Corpuscular Hgb 30.9 pg (27.0-32.0); Mean Corpuscular Volume 98.3 fL (81-99); Mean Platelet Vol. 11.5 fl (6.2-12.0); Monocyte# 0.68 X10^3/uL; Monocyte% 6.4 % (0-10); NRBC Flagged by Analyzer 0 % (0-5); Neutrophil # 8.81 X10^3/uL (2.7-7.7); Neutrophil % 83.3 % (47-70); Platelet Count 146 K/mm3 (150-450); RBC Distribution Width CV 17.1 % (11.6-14.6); RBC Distribution Width SD 61.5 fl (35.1-43.9); Red Blood Count 2.98 M/mm3 (4.2-5.4); White Blood Count 10.6 K/mm3 (4.4-11.0)
[2019-04-27 07:29] LABS: Albumin, Serum 2.3 g/dL (3.2-5.0); BUN 48 mg/dL (7-18); BUN/Creat Ratio 8.1 RATIO (10-20); Calcium,Total 8.5 mg/dL (8.5-10.1); Chloride 102 mmol/L (98-107); Creatinine, Serum 5.89 mg/dL (0.55-1.02); EST Glomerular Filtration Rate 8 mL/min (>60); Est Glom Filt Rate - Afr Amer 10 mL/min (>60); Estimated Creatinine Clearance 8.72 ml/min; Glucose 289 mg/dL (74-106); Phosphorus 8.9 mg/dL (2.5-4.9); Sodium Level 137 mmol/L (136-145)
--- NOTE | 2019-04-27 09:23 | PCM.PN.HOSP ---
Patient Problems: Active and Suspected Problems (Last Updated 09/19/18 @ 07:24 by Rema Ocampo) Wound, open, abdominal wall, anterior (Acute) Hyperkalemia (Acute) Subjective: Patient seen and examined. She is postop day 1 for right lateral abdominal wall incision and drainage and excisional debridement of a nonhealing infected diabetic necrotic ulcerated abscess and abdominal panniculectomy. She complains of lower extremity pain this morning and thinks is due to the tight Robin wraps that were ordered earlier. She denies any fever chills or lightheadedness or dizziness and pain in her abdomen at surgical site is well controlled. Patient was noted to be hypotensive after surgery yesterday with blood pressure going down to the 70s. She received a bolus of 1 L normal saline and in light of her history of being on steroids chronically, she was started on a stress dose of IV hydrocortisone. Blood pressure has remained stable since. Review of systems otherwise negative. Labs and vitals reviewed. Vitals/I&O's: Vital Signs Temp Pulse Resp BP Pulse Ox 98.6 F 81 20 H 133/71 H 96 04/27/19 07:00 04/27/19 07:00 04/27/19 07:00 04/27/19 07:00 04/27/19 07:00 Oxygen Flow Rate (L/min) 2 Oxygen Delivery Method Nasal Cannula Weight: 252 lb 6.868 oz Body Mass Index (BMI) 44.8 Intake and Output for Last 24 Hours 04/25/19 04/26/19 04/27/19 23:59 23:59 23:59 Intake Total 4200.16 / 4200.16 59.92 / 59.92 Output Total 0 / 0 0 / 0 Balance 4200.16 / 4200.16 59.92 / 59.92 General: Alert, Cooperative,lethargic HEENT: Atraumatic, PERRLA, EOMI, Normocephalic Oral: Dry Mucosa Neck: Supple, No JVD, Negative Carotid Bruits Lungs: Clear to auscultation, Normal air movement, No rhonchi, No wheeze, No rales Cardiovascular: Regular rate, Regular Rhythm, Normal S1, Normal S2, No murmurs Abdomen: Bowel Sounds Present, Soft, Non Tender Extremities: No clubbing, No cyanosis, No edema, Capillary Refill Less than 3 Seconds Skin: - - clean dressing over abdominal surgical site Musculoskeletal: No Tenderness to Palpation of Joints or Extremities Lymphatic: No Cervical, Supraclavicular, or Inguinal Adenopathy Neurological: Cranial nerves II-XII grossly intact, Neuro grossly intact, Motor Exam 5/5 strength throughout Psych/Mental Status: - - alert, mildly agitated Laboratory Results 04/25/19 14:55: Diff Path Review Reviewed 04/26/19 07:00: Diff Path Review Reviewed 04/26/19 07:00: Phosphorus 5.8 H 04/26/19 11:33: POC Glucose 162 H 04/26/19 16:23: POC Glucose 137 H 04/26/19 20:09: POC Glucose 158 H 04/27/19 06:50: Sodium 137, Potassium 5.0, Chloride 102, Carbon Dioxide 23.0, BUN 48 H, Creatinine 5.89 H, Estim Creat Clear Calc 8.72, Est GFR (MDRD) Af Amer 10 L, Est GFR (MDRD) Non-Af 8 L, BUN/Creatinine Ratio 8.1 L, Glucose 289 H, Calcium 8.5, Phosphorus 8.9 H, Albumin 2.3 L 04/27/19 06:50: WBC 10.6, RBC 2.98 L, Hgb 9.2 L, Hct 29.3 L, MCV 98.3, MCH 30.9, MCHC 31.4 L, RDW Std Deviation 61.5 H, RDW Coeff of Perico 17.1 H, Plt Count 146 L, MPV 11.5, Immature Gran % (Auto) 4.000 H, Neut % (Auto) 83.3 H, Lymph % (Auto) 5.9 L, [place] % (Auto) 6.4, Eos % (Auto) 0.0, Baso % (Auto) 0.4, Absolute Neuts (auto) 8.8 H, Absolute Lymphs (auto) 0.62 L, Nucleated RBC % 0 Current Medications Acetaminophen (Tylenol) 650 mg PO Q6H PRN PRN PRN Reason: Non-cardiac pain (mod-severe) Last Admin: 04/26/19 22:58 Dose: 650 mg Documented by: Hydrocodone Bitart/Acetaminophen ([place] 5mg-325mg) 1 - 2 tablet PO Q4H PRN PRN PRN Reason: Pain Score 4-10/10 Al Hydroxide/Mg Hydroxide (Mylanta Ii) 15 - 30 ml PO Q4H PRN PRN PRN Reason: INDIGESTION Albuterol Sulfate (Ventolin Aerosols) 2.5 mg INHALATION Q2H PRN PRN PRN Reason: dyspnea, wheezing Atorvastatin Calcium (Lipitor) 20 mg PO QHS [facility] Last Admin: 04/26/19 22:15 Dose: 20 mg Documented by: Buspirone HCl (Buspar) 5 mg PO TID [facility] Last Admin: 04/27/19 06:33 Dose: 5 mg Documented by: Carvedilol (Coreg) 12.5 mg PO BID [facility] Last Admin: 04/26/19 07:55 Dose: Not Given Documented by: Dextrose (D50w Syringe) 0 gm IV X1 PRN; Protocol PRN Reason: Hypoglycemia Furosemide (Lasix) 80 mg PO BIDLX [facility] Last Admin: 04/26/19 07:55 Dose: Not Given Documented by: Gabapentin (Neurontin) 400 mg PO TIDCM [facility] Last Admin: 04/26/19 11:21 Dose: Not Given Documented by: Glucagon () 1 mg IM .X1 PRN PRN Reason: Hypoglycemia Heparin Sodium (Porcine) (Heparin Na) 5,000 unit SC Q12 [facility] Last Admin: 04/26/19 22:05 Dose: 5,000 unit Documented by: Heparin Sodium (Porcine) () 0 - 10,000 units IV X1 [facility] Stop: 04/27/19 23:59 Hydralazine HCl (Apresoline Iv) 10 mg IV Q4H PRN PRN PRN Reason: SBP > 160 Hydrocortisone Sodium Succinate (Solu-Cortef) 100 mg IV Q8 [facility] Last Admin: 04/27/19 06:33 Dose: 100 mg Documented by: Piperacillin Sod/Tazobactam (Sod 3.375 gm/ Sodium Chloride) 50 mls @ 12.5 mls/hr IV Q12 [facility] Last Infusion: 04/27/19 02:06 Dose: Infused Documented by: Vancomycin IV Pharmacy to Dose (1 ea/ Sodium Chloride) 500 mls @ 250 mls/hr IV PRN PRN; Protocol PRN Reason: Rx to Dose Sodium Chloride () 250 mls @ 15 mls/hr IV .[id number] PRN PRN Reason: Saline Flush Last Infusion: 04/27/19 03:44 Dose: 0 mls/hr Documented by: Insulin Glargine (Lantus (Bk)) 37 units SC DAILY [facility] Last Admin: 04/26/19 08:12 Dose: Not Given Documented by: Insulin Human Lispro (Humalog Kwikpen (Bk)) 12 unit SC TIDAC [facility] Last Admin: 04/27/19 08:15 Dose: Not Given Documented by: Insulin Human Lispro (Humalog Kwikpen (Bk)) 0 unit SC ACHS [facility]; Protocol Last Admin: 04/27/19 08:15 Dose: Not Given Documented by: Magnesium Hydroxide (Milk Of Magnesia) 30 ml PO DAILY PRN PRN Reason: Constipation Melatonin (Melatonin) 3 mg PO QHS PRN PRN Reason: SLEEP Montelukast Sodium (Singulair) 10 mg PO QHS [facility] Last Admin: 04/26/19 22:15 Dose: 10 mg Documented by: Morphine Sulfate () 2 - 4 mg IV Q4H PRN PRN PRN Reason: Pain Score 1-10/10 Last Admin: 04/26/19 01:41 Dose: 2 mg Documented by: Ondansetron HCl (Zofran) 4 mg IV Q8H PRN PRN PRN Reason: NAUSEA/VOMITING Pantoprazole Sodium (Protonix) 20 mg PO DAILY [facility] Last Admin: 04/26/19 07:55 Dose: Not Given Documented by: Polyethylene Glycol (Miralax) 34 gm PO X1 PRN PRN Reason: Bowel Movement Prednisone () 30 mg PO 1200 [facility] Last Admin: 04/26/19 11:21 Dose: Not Given Documented by: Sertraline HCl (Zoloft) 100 mg PO DAILY [facility] Last Admin: 04/26/19 07:55 Dose: Not Given Documented by: Sevelamer Carbonate (Renvela) 2,400 mg PO TIDCM [facility] Last Admin: 04/26/19 17:16 Dose: Not Given Documented by: Sodium Chloride () 10 - 40 ml IV UD PRN PRN Reason: SALINE FLUSH Last Admin: 04/26/19 11:31 Dose: 10 ml Documented by: STROKE Vital Signs/Narrative: Vital Signs Temp Pulse Resp BP BP Pulse Ox 04/27/19 07:00 98.6 F 81 20 H 133/71 H 96 04/27/19 06:50 100 94 04/27/19 06:00 80 16 124/63 H 95 Medical Necessity - Tobacco Use Smoking Status: Never smoker Tobacco Use: Non-smoker Assessment/Plan All Active Problems (Last Updated 09/19/18 @ 07:24 by Rema Ocampo) Abdominal wall pain in right flank (Acute) Skin necrosis (Acute) Calciphylaxis (Acute) Cutaneous abscess of abdominal wall (Acute) Complication due to medical care (Acute) Type 2 diabetes mellitus with other skin ulcer (Acute) Neuropathic pain of left hand (Acute) Wound, open, abdominal wall, anterior (Acute) Hyperkalemia (Acute) Pneumonia (Acute) NOEL (acute kidney injury) (Acute) Problem with dialysis access (Acute) Debility (Acute) 1. Abdominal wall abscess s/p I&D and and excisional debridement of nonhealing infected diabetic necrotic ulcer today is POD 1. wbc has trended down this morning, pain is well controlled. calciphylaxis is also a suspicion in light of her history of ESRD WBC is mildly elevated at 12.4 but is not to 10.1 this morning. Plastic surgery on board. Currently on IV vancomycin and IV Zosyn. Wound nurse on board on tylenol for pain 2. Hyperkalemia: resolved. K is down to 5 this morning. for dialysis today. nephrology on board. 3. Hypotension: likely medication induced; BP has improved since she received stress dose of IV steroids says she usually gets hypotensive during dialysis as well; will continue to hold meds for today whilst she receives dialysis 4. ESRD: On dialysis Saturdays. Nephrology on board. 5. Hypertension: meds on hold due to hypotension resume after dialysis once BP improves 6. Hyperlipidemia: On statin. 7. Type 2 diabetes mellitus. A1c 7.4. Insulin sliding scale. Accu-Chek ACHS 8. 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 9. Anxiety and depression: On Buspar and sertraline. 10. Anemia of chronic disease. Hemoglobin is 9.2 today. Was 10.5 on admission. will monitor 11.GERD: on PPI DVT prophylaxis: heparin Code Visit Inpatient E&M: 75724 Subs Hosp L3
--- NOTE | 2019-04-27 09:54 | DIALYSIS ---
Report from primary RN, Melida Cox Hep B sag (negative) 04/02/19. Copy of result placed in patient's chart. Access: Left chest CVC: insertion site reddened, no warmth or pain at site.
[2019-04-27] MEDS: Acetaminophen 325 MG Tablet 650 MG PO (10:29)
[2019-04-27 10:36] LABS: Bedside Glucose 285 mg/dL (70-110)
[2019-04-27] MEDS: Heparin 10,000 UNITS/10 ML Vial IV (11:30)
[2019-04-27] MEDS: Alteplase 2 MG/2 ML Vial IV (13:40)
--- NOTE | 2019-04-27 14:51 | NURSING ---
Reviewed charting of SN Donell
--- NOTE | 2019-04-27 15:03 | NURSING ---
Reported off to primary RNMelida. Patient laying in bed receiving dialysis. Family at bedside. Call light within reach.
--- NOTE | 2019-04-27 16:06 | DIALYSIS ---
Hemodialysis complete. 4 hour run, 2k bath. Net fluid removed = 3600 ml. Patient tolerated HD tx fairly well. Patient's HD catheter very positional. Cathflo given mid treatment for patency support. Cathflo help minimally with patency. Left chest CVC: insertion site remains reddened. Patient denies pain at catheter site. HD catheter flushed with NS, filled to volume with Heparin, capped and clamped. Report given to primary RN, Melida Cox.
[2019-04-27] MEDS: 0.9% Saline Lock 10 ML Syringe IV ×3 (16:24→17:52)
[2019-04-27] MEDS: Heparin Injection (Vial) 5,000 UNIT/ML VIAL 5000 UNIT SC ×2 (16:31→22:13)
[2019-04-27] MEDS: Sertraline 100 MG Tablet PO (16:32)
[2019-04-27] MEDS: Pantoprazole Sodium 20 MG Tablet PO (16:32)
[2019-04-27] MEDS: SEVELAMER CARBONATE 800 MG TABLET 2400 MG PO (16:33)
[2019-04-27] MEDS: Insulin Lispro 100 UNIT/ML INSULN.PEN SC ×2 (16:55→22:14)
[2019-04-27] MEDS: Insulin Lispro 100 UNIT/ML INSULN.PEN 12 UNIT SC (16:55)
[2019-04-27] MEDS: Morphine 2 MG/ML Syringe IV ×2 (17:52→22:21)
[2019-04-27 18:06] LABS: Bedside Glucose 179 mg/dL (70-110)
--- NOTE | 2019-04-27 19:59 | PN.SURG_ITS ---
Patient Problems: Active and Suspected Problems (Last Updated 09/19/18 @ 07:24 by Rema Ocampo) Wound, open, abdominal wall, anterior (Acute) Hyperkalemia (Acute) Subjective: Postop #1 Patient is receiving dialysis. She has some abdominal wound pain. - Physical Exam Vitals/I&O's: Vital Signs Temp Pulse Resp BP Pulse Ox 98.3 F 103 H 20 H 137/89 H 100 04/27/19 17:50 04/27/19 19:09 04/27/19 17:50 04/27/19 17:50 04/27/19 17:50 Oxygen Flow Rate (L/min) 2 Oxygen Delivery Method Nasal Cannula Weight: 252 lb 6.868 oz Body Mass Index (BMI) 44.8 Intake and Output for Last 24 Hours 04/25/19 04/26/19 04/27/19 23:59 23:59 23:59 Intake Total 4200.16 / 4200.16 539.92 / 539.92 Output Total 0 / 0 3600 / 3600 Balance 4200.16 / 4200.16 -3060.08 / -3060.08 General: Alert, Oriented x3 HEENT: PERRLA, EOMI Oral: Moist Mucosa Neck: Supple Abdomen: Soft, Non-Distended Skin: Ulcer/ Wound - abdominal wall wound is stable. Dressing is dry. VAC to be applied after dialysis. Neurological: Cranial nerves II-XII grossly intact Psych/Mental Status: Normal Affect, Appropriate Microbiology Past 72 Hours 04/26/19 Unknown Tissue - Abdominal Gram Stain - Final 04/26/19 Unknown Tissue - Abdominal Wound Culture - Preliminary Gram negative iglesia Laboratory Results 04/26/19 20:09: POC Glucose 158 H 04/27/19 06:50: Sodium 137, Potassium 5.0, Chloride 102, Carbon Dioxide 23.0, BUN 48 H, Creatinine 5.89 H, Estim Creat Clear Calc 8.72, Est GFR (MDRD) Af Amer 10 L, Est GFR (MDRD) Non-Af 8 L, BUN/Creatinine Ratio 8.1 L, Glucose 289 H, Calcium 8.5, Phosphorus 8.9 H, Albumin 2.3 L 04/27/19 06:50: WBC 10.6, RBC 2.98 L, Hgb 9.2 L, Hct 29.3 L, MCV 98.3, MCH 30.9, MCHC 31.4 L, RDW Std Deviation 61.5 H, RDW Coeff of Perico 17.1 H, Plt Count 146 L, MPV 11.5, Immature Gran % (Auto) 4.000 H, Neut % (Auto) 83.3 H, Lymph % (Auto) 5.9 L, [place] % (Auto) 6.4, Eos % (Auto) 0.0, Baso % (Auto) 0.4, Absolute Neuts (auto) 8.8 H, Absolute Lymphs (auto) 0.62 L, Nucleated RBC % 0 04/27/19 07:57: POC Glucose 285 H 04/27/19 16:29: POC Glucose 179 H Current Medications Acetaminophen (Tylenol) 650 mg PO Q6H PRN PRN PRN Reason: Non-cardiac pain (mod-severe) Last Admin: 04/27/19 10:29 Dose: 650 mg Documented by: Hydrocodone Bitart/Acetaminophen ([place] 5mg-325mg) 1 - 2 tablet PO Q4H PRN PRN PRN Reason: Pain Score 4-10/10 Al Hydroxide/Mg Hydroxide (Mylanta Ii) 15 - 30 ml PO Q4H PRN PRN PRN Reason: INDIGESTION Albuterol Sulfate (Ventolin Aerosols) 2.5 mg INHALATION Q2H PRN PRN PRN Reason: dyspnea, wheezing Atorvastatin Calcium (Lipitor) 20 mg PO QHS [facility] Last Admin: 04/26/19 22:15 Dose: 20 mg Documented by: Buspirone HCl (Buspar) 5 mg PO TID [facility] Last Admin: 04/27/19 16:33 Dose: 5 mg Documented by: Carvedilol (Coreg) 12.5 mg PO BID [facility] Last Admin: 04/26/19 07:55 Dose: Not Given Documented by: Dextrose (D50w Syringe) 0 gm IV X1 PRN; Protocol PRN Reason: Hypoglycemia Furosemide (Lasix) 80 mg PO BIDLX [facility] Last Admin: 04/26/19 07:55 Dose: Not Given Documented by: Gabapentin (Neurontin) 400 mg PO TIDCM [facility] Last Admin: 04/26/19 11:21 Dose: Not Given Documented by: Glucagon () 1 mg IM .X1 PRN PRN Reason: Hypoglycemia Heparin Sodium (Porcine) (Heparin Na) 5,000 unit SC Q12 [facility] Last Admin: 04/27/19 16:31 Dose: 5,000 unit Documented by: Heparin Sodium (Porcine) () 0 - 10,000 units IV X1 [facility] Stop: 04/27/19 23:59 Last Admin: 04/27/19 11:30 Dose: 6,000 units Documented by: Hydralazine HCl (Apresoline Iv) 10 mg IV Q4H PRN PRN PRN Reason: SBP > 160 Hydrocortisone Sodium Succinate (Solu-Cortef) 100 mg IV Q8 [facility] Last Admin: 04/27/19 16:33 Dose: 100 mg Documented by: Piperacillin Sod/Tazobactam (Sod 3.375 gm/ Sodium Chloride) 50 mls @ 12.5 mls/hr IV Q12 [facility] Last Admin: 04/27/19 16:23 Dose: 12.5 mls/hr Documented by: Vancomycin IV Pharmacy to Dose (1 ea/ Sodium Chloride) 500 mls @ 250 mls/hr IV PRN PRN; Protocol PRN Reason: Rx to Dose Sodium Chloride () 250 mls @ 15 mls/hr IV .[id number] PRN PRN Reason: Saline Flush Last Infusion: 04/27/19 03:44 Dose: 0 mls/hr Documented by: Insulin Glargine (Lantus (Bkc)) 37 units SC DAILY [facility] Last Admin: 04/27/19 16:32 Dose: 37 units Documented by: Insulin Human Lispro (Humalog Kwikpen (Bkc)) 12 unit SC TIDAC [facility] Last Admin: 04/27/19 16:55 Dose: 12 units Documented by: Insulin Human Lispro (Humalog Kwikpen (Bkc)) 0 unit SC ACHS [facility]; Protocol Last Admin: 04/27/19 16:55 Dose: 1 u Documented by: Magnesium Hydroxide (Milk Of Magnesia) 30 ml PO DAILY PRN PRN Reason: Constipation Melatonin (Melatonin) 3 mg PO QHS PRN PRN Reason: SLEEP Montelukast Sodium (Singulair) 10 mg PO QHS [facility] Last Admin: 04/26/19 22:15 Dose: 10 mg Documented by: Morphine Sulfate () 2 - 4 mg IV Q4H PRN PRN PRN Reason: Pain Score 1-10/10 Last Admin: 04/27/19 17:52 Dose: 2 mg Documented by: Ondansetron HCl (Zofran) 4 mg IV Q8H PRN PRN PRN Reason: NAUSEA/VOMITING Pantoprazole Sodium (Protonix) 20 mg PO DAILY [facility] Last Admin: 04/27/19 16:32 Dose: 20 mg Documented by: Polyethylene Glycol (Miralax) 34 gm PO X1 PRN PRN Reason: Bowel Movement Prednisone () 30 mg PO 1200 [facility] Last Admin: 04/26/19 11:21 Dose: Not Given Documented by: Sertraline HCl (Zoloft) 100 mg PO DAILY [facility] Last Admin: 04/27/19 16:32 Dose: 100 mg Documented by: Sevelamer Carbonate (Renvela) 2,400 mg PO TIDCM [facility] Last Admin: 04/27/19 16:33 Dose: 2,400 mg Documented by: Sodium Chloride () 10 - 40 ml IV UD PRN PRN Reason: SALINE FLUSH Last Admin: 04/27/19 17:52 Dose: 10 ml Documented by: Medical Necessity - Tobacco Use Smoking Status: Never smoker Tobacco Use: Non-smoker Assessment/Plan All Active Problems (Last Updated 09/19/18 @ 07:24 by Rema Ocampo) Abdominal wall pain in right flank (Acute) Skin necrosis (Acute) Calciphylaxis (Acute) Cutaneous abscess of abdominal wall (Acute) Complication due to medical care (Acute) Type 2 diabetes mellitus with other skin ulcer (Acute) Neuropathic pain of left hand (Acute) Wound, open, abdominal wall, anterior (Acute) Hyperkalemia (Acute) Pneumonia (Acute) NOEL (acute kidney injury) (Acute) Problem with dialysis access (Acute) Debility (Acute) 1. 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 2. Painful insulin nodules abdominal wall. 3. Diabetes mellitus. 4. ESRD requiring dialysis. 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 6. s/p surgical preparation right lateral abdominal wall with incision and drainage and excisional debridement skin and subcutaneous tissue and fascia nonhealing infected diabetic necrotic ulcerated abscesses necrotizing soft tissue infection (377 cm2) and abdominal panniculectomy. Patient is receiving dialysis today. Will apply the VAC after the dialysis is completed. If oozing is noted, will hold the VAC and redress the wound with a saline compression dressing. The VAC will be changed three times per week at 150 mmHg continuous suction. Operative culture shows Gram negative iglesia thus far. She is on Vancomycin and Zosyn. [facility], can followup at [facility] in 2-4 weeks. If there is a plateau in the healing process, can proceed with delayed closure with skin grafting or complex secondary wound closure. Some of the infection abscesses could also be related to insulin nodules. She injects her insulin into her abdomen. Suggested to the patient to start insulin injections in the arm and the thigh. Anticipate increased metabolic demands from the wounds and the infection. Will check a Prealbumin and encourage nutritional supplementation with protein to help the healing process. In renal failure patients on dialysis, when necrotic skin infections start developing, calciphylaxis can be present. Sometimes this is progressive and other areas on the abdominal wall and the extremities can develop necrotic skin infections. Because of the severe pain present in these wounds and if multiple wounds develop, these patients sometimes need to go to a Burn Center for more aggressive wound care with a whirlpool and the need for much higher doses of IV analgesia.
[2019-04-27] MEDS: Montelukast 10 MG Tablet PO (22:13)
[2019-04-27] MEDS: Atorvastatin Calcium 20 MG Tablet PO (22:13)
[2019-04-27 22:30] LABS: Bedside Glucose 244 mg/dL (70-110)
[2019-04-28] VITALS (10 sets, daily range): BP systolic 122–138; BP diastolic 64–74; PULSE 89–119; RESP 16–20; TEMP 36.4–37.1; O2SAT 93–100
[2019-04-28] MEDS: busPIRone 5 MG Tablet PO ×3 (05:13→22:20)
[2019-04-28] MEDS: Hydrocortisone Sod Succinate 100 MG/2 ML Vial IV (05:13)
[2019-04-28 06:41] LABS: Absolute Lymphocyte Count 0.59 X10^3/uL (0.83-4.51); Absolute Neutrophil Count 6.7 X10^3/uL (2.0-7.7); Basophil# 0.03 X10^3/uL; Basophil% 0.4 % (0-1); Hematocrit 29.2 % (37-47); Hemoglobin 9.1 g/dL (12.0-15.0); Lymphocyte # 0.59 X10^3/ul (4.0); Lymphocyte % 7.3 % (19-41); Mean Corp Hgb Conc 31.2 g/dL (32-36); Mean Corpuscular Hgb 30.5 pg (27.0-32.0); Mean Platelet Vol. 11.6 fl (6.2-12.0); Monocyte# 0.51 X10^3/uL; Monocyte% 6.4 % (0-10); NRBC Flagged by Analyzer 0 % (0-5); Neutrophil # 6.67 X10^3/uL (2.7-7.7); POSITIVE DIFFERENTIAL YES; Platelet Count 165 K/mm3 (150-450); RBC Distribution Width CV 16.8 % (11.6-14.6); RBC Distribution Width SD 60.7 fl (35.1-43.9); Red Blood Count 2.98 M/mm3 (4.2-5.4)
[2019-04-28 06:50] LABS: Differential Indicated SCAN CRITERIA MET
[2019-04-28] MEDS: Acetaminophen 325 MG Tablet 650 MG PO (07:35)
[2019-04-28] MEDS: Insulin Lispro 100 UNIT/ML INSULN.PEN SC ×4 (07:36→22:20)
[2019-04-28] MEDS: Insulin Lispro 100 UNIT/ML INSULN.PEN 12 UNIT SC ×3 (07:36→16:57)
[2019-04-28 07:41] LABS: Bedside Glucose 371 mg/dL (70-110)
[2019-04-28] MEDS: SEVELAMER CARBONATE 800 MG TABLET 2400 MG PO ×3 (09:50→16:57)
[2019-04-28] MEDS: Heparin Injection (Vial) 5,000 UNIT/ML VIAL 5000 UNIT SC ×2 (09:50→22:20)
[2019-04-28] MEDS: Pantoprazole Sodium 20 MG Tablet PO (09:51)
[2019-04-28] MEDS: Sertraline 100 MG Tablet PO (09:51)
--- NOTE | 2019-04-28 11:39 | PCM.PROGNOTE ---
Patient Problems: Active and Suspected Problems (Last Updated 09/19/18 @ 07:24 by Rema Ocampo) Wound, open, abdominal wall, anterior (Acute) Hyperkalemia (Acute) Subjective: Latrice today, I had a long discussion with her about several medical issues, patient does not walk, she has a history of MS, this morning she is upset that her tunneled dialysis catheter was not working correctly yesterday when she had dialysis that she is afraid that the catheter will be dysfunctional and she will not be able to have dialysis. I assured her that another catheter would have to be placed in that circumstance. Patient is also concerned because she has pain in her left calf area, a venous duplex scan has been ordered to rule out DVT, there is some generalized edema of both the left and right lower legs but it is this examiner's opinion that the edema is not severe. Patient admits to a history of MS-her medical record however states that she has chronic inflammatory demyelinating polyneuropathy - Physical Exam Vitals/I&O's: Vital Signs Temp Pulse Resp BP Pulse Ox 98.0 F 92 18 122/64 H 100 04/28/19 10:00 04/28/19 10:00 04/28/19 10:00 04/28/19 10:00 04/28/19 10:00 Oxygen Flow Rate (L/min) 2 Oxygen Delivery Method Nasal Cannula Weight: 114.5 kg Body Mass Index (BMI) 44.8 Intake and Output for Last 24 Hours 04/26/19 04/27/19 04/28/19 23:59 23:59 23:59 Intake Total 4200.16 / 4200.16 879.34 / 879.34 279.83 / 279.83 Output Total 0 / 0 3600 / 3600 Balance 4200.16 / 4200.16 -2720.66 / -2720.66 279.83 / 279.83 General: Alert, Oriented x3, Cooperative, No apparent distress, Well developed HEENT: Atraumatic, PERRLA, EOMI, Normocephalic Oral: Moist Mucosa Neck: Supple, Trachea Midline, Thyroid Normal Size and Texture Lungs: Clear to auscultation, Normal air movement, No rhonchi, No wheeze, No rales Cardiovascular: Regular rate, Regular Rhythm, Normal S1, Normal S2, No murmurs Abdomen: Bowel Sounds Present, Soft, Non-Distended, Obese, - - There is a wound VAC present over the midportion of the patient's abdomen Extremities: No clubbing, Capillary Refill Less than 3 Seconds, Edema - +2 mm pitting edema is noted over the patient's lower legs Skin: No rashes, - - A wound VAC is present over the midportion of the patient's abdominal wall Musculoskeletal: No Tenderness to Palpation of Joints or Extremities Neurological: Cranial nerves II-XII grossly intact, Sensory exam intact to light touch and pain, - - Patient is paraplegic Psych/Mental Status: Anxious, - - Patient is alert, she responds to questions appropriately, she appears to be anxious Microbiology Past 72 Hours 04/26/19 Unknown Tissue - Abdominal Gram Stain - Final 04/26/19 Unknown Tissue - Abdominal Wound Culture - Preliminary Gram negative iglesia Gram negative iglesia#2 Laboratory Results 04/27/19 16:29: POC Glucose 179 H 04/27/19 22:09: POC Glucose 244 H 04/28/19 06:10: WBC 8.0, RBC 2.98 L, Hgb 9.1 L, Hct 29.2 L, MCV 98.0, MCH 30.5, MCHC 31.2 L, RDW Std Deviation 60.7 H, RDW Coeff of Perico 16.8 H, Plt Count 165, MPV 11.6, Immature Gran % (Auto) 2.900 H, Neut % (Auto) 83.0 H, Lymph % (Auto) 7.3 L, [place] % (Auto) 6.4, Eos % (Auto) 0.0, Baso % (Auto) 0.4, Absolute Neuts (auto) 6.7, Absolute Lymphs (auto) 0.59 L, Nucleated RBC % 0, Differential Comment 04/28/19 07:34: POC Glucose 371 H Current Medications Acetaminophen (Tylenol) 650 mg PO Q6H PRN PRN PRN Reason: Non-cardiac pain (mod-severe) Last Admin: 04/28/19 07:35 Dose: 650 mg Documented by: Hydrocodone Bitart/Acetaminophen ([place] 5mg-325mg) 1 - 2 tablet PO Q4H PRN PRN PRN Reason: Pain Score 4-10/10 Al Hydroxide/Mg Hydroxide (Mylanta Ii) 15 - 30 ml PO Q4H PRN PRN PRN Reason: INDIGESTION Albuterol Sulfate (Ventolin Aerosols) 2.5 mg INHALATION Q2H PRN PRN PRN Reason: dyspnea, wheezing Atorvastatin Calcium (Lipitor) 20 mg PO QHS [facility] Last Admin: 04/27/19 22:13 Dose: 20 mg Documented by: Buspirone HCl (Buspar) 5 mg PO TID [facility] Last Admin: 04/28/19 05:13 Dose: 5 mg Documented by: Carvedilol (Coreg) 12.5 mg PO BID [facility] Last Admin: 04/26/19 07:55 Dose: Not Given Documented by: Dextrose (D50w Syringe) 0 gm IV X1 PRN; Protocol PRN Reason: Hypoglycemia Furosemide (Lasix) 80 mg PO BIDLX [facility] Last Admin: 04/26/19 07:55 Dose: Not Given Documented by: Gabapentin (Neurontin) 400 mg PO TIDCM [facility] Last Admin: 04/26/19 11:21 Dose: Not Given Documented by: Glucagon () 1 mg IM .X1 PRN PRN Reason: Hypoglycemia Heparin Sodium (Porcine) (Heparin Na) 5,000 unit SC Q12 [facility] Last Admin: 04/28/19 09:50 Dose: 5,000 unit Documented by: Hydralazine HCl (Apresoline Iv) 10 mg IV Q4H PRN PRN PRN Reason: SBP > 160 Hydrocortisone Sodium Succinate (Solu-Cortef) 100 mg IV Q8 [facility] Last Admin: 04/28/19 05:13 Dose: 100 mg Documented by: Piperacillin Sod/Tazobactam (Sod 3.375 gm/ Sodium Chloride) 50 mls @ 12.5 mls/hr IV Q12 [facility] Last Admin: 04/28/19 09:50 Dose: 12.5 mls/hr Documented by: Vancomycin IV Pharmacy to Dose (1 ea/ Sodium Chloride) 500 mls @ 250 mls/hr IV PRN PRN; Protocol PRN Reason: Rx to Dose Sodium Chloride () 250 mls @ 15 mls/hr IV .[id number] PRN PRN Reason: Saline Flush Last Infusion: 04/28/19 03:00 Dose: 0 mls/hr Documented by: Insulin Glargine (Lantus (Bkc)) 37 units SC DAILY [facility] Last Admin: 04/28/19 09:51 Dose: 37 units Documented by: Insulin Human Lispro (Humalog Kwikpen (Bkc)) 12 unit SC TIDAC [facility] Last Admin: 04/28/19 07:36 Dose: 12 units Documented by: Insulin Human Lispro (Humalog Kwikpen (Bkc)) 0 unit SC ACHS [facility]; Protocol Last Admin: 04/28/19 07:36 Dose: 6 u Documented by: Magnesium Hydroxide (Milk Of Magnesia) 30 ml PO DAILY PRN PRN Reason: Constipation Melatonin (Melatonin) 3 mg PO QHS PRN PRN Reason: SLEEP Montelukast Sodium (Singulair) 10 mg PO QHS [facility] Last Admin: 04/27/19 22:13 Dose: 10 mg Documented by: Morphine Sulfate () 2 - 4 mg IV Q4H PRN PRN PRN Reason: Pain Score 1-1010 Last Admin: 04/27/19 22:21 Dose: 2 mg Documented by: Ondansetron HCl (Zofran) 4 mg IV Q8H PRN PRN PRN Reason: NAUSEA/VOMITING Pantoprazole Sodium (Protonix) 20 mg PO DAILY [facility] Last Admin: 04/28/19 09:51 Dose: 20 mg Documented by: Polyethylene Glycol (Miralax) 34 gm PO X1 PRN PRN Reason: Bowel Movement Prednisone () 30 mg PO 1200 [facility] Last Admin: 04/26/19 11:21 Dose: Not Given Documented by: Sertraline HCl (Zoloft) 100 mg PO DAILY [facility] Last Admin: 04/28/19 09:51 Dose: 100 mg Documented by: Sevelamer Carbonate (Renvela) 2,400 mg PO TIDCM [facility] Last Admin: 04/28/19 09:50 Dose: 2,400 mg Documented by: Sodium Chloride () 10 - 40 ml IV UD PRN PRN Reason: SALINE FLUSH Last Admin: 04/27/19 17:52 Dose: 10 ml Documented by: Medical Necessity - Tobacco Use Smoking Status: Never smoker Tobacco Use: Non-smoker Assessment/Plan All Active Problems (Last Updated 09/19/18 @ 07:24 by Rema Ocampo) Abdominal wall pain in right flank (Acute) Skin necrosis (Acute) Calciphylaxis (Acute) Cutaneous abscess of abdominal wall (Acute) Complication due to medical care (Acute) Type 2 diabetes mellitus with other skin ulcer (Acute) Neuropathic pain of left hand (Acute) Wound, open, abdominal wall, anterior (Acute) Hyperkalemia (Acute) Pneumonia (Acute) NOEL (acute kidney injury) (Acute) Problem with dialysis access (Acute) Debility (Acute) #1 abdominal wall wound secondary to calciphylaxis-patient presently has a wound VAC over the area, it is planned that the patient will return to a [facility] facility at the time of discharge from the hospital #2 calciphylaxis #3 end-stage renal disease secondary to type 2 diabetes-on dialysis #4 type 2 diabetes-continue present monitoring blood sugars and administration of insulin #5 chronic inflammatory demyelinating polyneuropathy #6 paraplegia secondary to #5 #7 morbid obesity #8 hyperlipidemia #9 essential hypertension #10 left lower leg/calf pain-etiology unclear, patient will have a venous duplex scan of her left lower leg performed. #11 chronic anxiety and depression #12 anemia chronic renal disease Code Visit Inpatient E&M: 73409 Subs Hosp L2
[2019-04-28 12:16] LABS: Bedside Glucose 347 mg/dL (70-110)
[2019-04-28] MEDS: Gabapentin 400 MG Capsule PO (16:56)
[2019-04-28 17:05] LABS: Bedside Glucose 256 mg/dL (70-110)
--- NOTE | 2019-04-28 17:11 | PCM.PN.SRG ---
Patient Problems: Active and Suspected Problems (Last Updated 09/19/18 @ 07:24 by Rema Ocampo) Wound, open, abdominal wall, anterior (Acute) Hyperkalemia (Acute) Subjective: Postop #2 Patient has some abdominal wound pain. VAC in place. To be changed tomorrow. - Physical Exam Vitals/I&O's: Vital Signs Temp Pulse Resp BP Pulse Ox 98.0 F 92 18 122/64 H 100 04/28/19 10:00 04/28/19 15:29 04/28/19 10:00 04/28/19 10:00 04/28/19 10:00 Oxygen Flow Rate (L/min) 2 Oxygen Delivery Method Nasal Cannula Weight: 252 lb 6.868 oz Body Mass Index (BMI) 44.8 Intake and Output for Last 24 Hours 04/26/19 04/27/19 04/28/19 23:59 23:59 23:59 Intake Total 4200.16 / 4200.16 879.34 / 879.34 769.83 / 769.83 Output Total 0 / 0 3600 / 3600 Balance 4200.16 / 4200.16 -2720.66 / -2720.66 769.83 / 769.83 General: Alert, Oriented x3 HEENT: PERRLA, EOMI Oral: Moist Mucosa Neck: Supple Abdomen: Soft, Non-Distended Skin: Ulcer/ Wound - abdominal wall wound is stable. No bleeding seen. VAC changed today. Had increased pain with the VAC change. Needed IV analgesia. Neurological: Cranial nerves II-XII grossly intact Psych/Mental Status: Normal Affect, Appropriate Microbiology Past 72 Hours 04/26/19 Unknown Tissue - Abdominal Gram Stain - Final 04/26/19 Unknown Tissue - Abdominal Wound Culture - Preliminary Gram negative iglesia Gram negative iglesia#2 Laboratory Results 04/27/19 16:29: POC Glucose 179 H 04/27/19 22:09: POC Glucose 244 H 04/28/19 06:10: WBC 8.0, RBC 2.98 L, Hgb 9.1 L, Hct 29.2 L, MCV 98.0, MCH 30.5, MCHC 31.2 L, RDW Std Deviation 60.7 H, RDW Coeff of Perico 16.8 H, Plt Count 165, MPV 11.6, Immature Gran % (Auto) 2.900 H, Neut % (Auto) 83.0 H, Lymph % (Auto) 7.3 L, [place] % (Auto) 6.4, Eos % (Auto) 0.0, Baso % (Auto) 0.4, Absolute Neuts (auto) 6.7, Absolute Lymphs (auto) 0.59 L, Nucleated RBC % 0, Differential Comment 04/28/19 07:34: POC Glucose 371 H 04/28/19 11:56: POC Glucose 347 H 04/28/19 16:56: POC Glucose 256 H Current Medications Acetaminophen (Tylenol) 650 mg PO Q6H PRN PRN PRN Reason: Non-cardiac pain (mod-severe) Last Admin: 04/28/19 07:35 Dose: 650 mg Documented by: Hydrocodone Bitart/Acetaminophen ([place] 5mg-325mg) 1 - 2 tablet PO Q4H PRN PRN PRN Reason: Pain Score 4-10/10 Al Hydroxide/Mg Hydroxide (Mylanta Ii) 15 - 30 ml PO Q4H PRN PRN PRN Reason: INDIGESTION Albuterol Sulfate (Ventolin Aerosols) 2.5 mg INHALATION Q2H PRN PRN PRN Reason: dyspnea, wheezing Atorvastatin Calcium (Lipitor) 20 mg PO QHS [facility] Last Admin: 04/27/19 22:13 Dose: 20 mg Documented by: Buspirone HCl (Buspar) 5 mg PO TID [facility] Last Admin: 04/28/19 14:51 Dose: 5 mg Documented by: Carvedilol (Coreg) 12.5 mg PO BID [facility] Last Admin: 04/26/19 07:55 Dose: Not Given Documented by: Dextrose (D50w Syringe) 0 gm IV X1 PRN; Protocol PRN Reason: Hypoglycemia Gabapentin (Neurontin) 400 mg PO TIDCM [facility] Last Admin: 04/28/19 16:56 Dose: 400 mg Documented by: Glucagon () 1 mg IM .X1 PRN PRN Reason: Hypoglycemia Heparin Sodium (Porcine) (Heparin Na) 5,000 unit SC Q12 [facility] Last Admin: 04/28/19 09:50 Dose: 5,000 unit Documented by: Hydralazine HCl (Apresoline Iv) 10 mg IV Q4H PRN PRN PRN Reason: SBP > 160 Piperacillin Sod/Tazobactam (Sod 3.375 gm/ Sodium Chloride) 50 mls @ 12.5 mls/hr IV Q12 [facility] Last Infusion: 04/28/19 14:51 Dose: Infused Documented by: Sodium Chloride () 250 mls @ 15 mls/hr IV .[id number] PRN PRN Reason: Saline Flush Last Infusion: 04/28/19 03:00 Dose: 0 mls/hr Documented by: Insulin Glargine (Lantus (Bk)) 37 units SC DAILY [facility] Last Admin: 04/28/19 09:51 Dose: 37 units Documented by: Insulin Human Lispro (Humalog Kwikpen ([facility])) 12 unit SC TIDAC [facility] Last Admin: 04/28/19 16:57 Dose: 12 units Documented by: Insulin Human Lispro (Humalog Kwikpen ([facility])) 0 unit SC ACHS [facility]; Protocol Last Admin: 04/28/19 16:57 Dose: 3 u Documented by: Magnesium Hydroxide (Milk Of Magnesia) 30 ml PO DAILY PRN PRN Reason: Constipation Melatonin (Melatonin) 3 mg PO QHS PRN PRN Reason: SLEEP Montelukast Sodium (Singulair) 10 mg PO QHS [facility] Last Admin: 04/27/19 22:13 Dose: 10 mg Documented by: Morphine Sulfate () 2 - 4 mg IV Q4H PRN PRN PRN Reason: Pain Score 1-10/10 Last Admin: 04/27/19 22:21 Dose: 2 mg Documented by: Ondansetron HCl (Zofran) 4 mg IV Q8H PRN PRN PRN Reason: NAUSEA/VOMITING Pantoprazole Sodium (Protonix) 20 mg PO DAILY [facility] Last Admin: 04/28/19 09:51 Dose: 20 mg Documented by: Polyethylene Glycol (Miralax) 34 gm PO X1 PRN PRN Reason: Bowel Movement Prednisone () 30 mg PO 1200 [facility] Last Admin: 04/26/19 11:21 Dose: Not Given Documented by: Sertraline HCl (Zoloft) 100 mg PO DAILY [facility] Last Admin: 04/28/19 09:51 Dose: 100 mg Documented by: Sevelamer Carbonate (Renvela) 2,400 mg PO TIDCM [facility] Last Admin: 04/28/19 16:57 Dose: 2,400 mg Documented by: Sodium Chloride () 10 - 40 ml IV UD PRN PRN Reason: SALINE FLUSH Last Admin: 04/27/19 17:52 Dose: 10 ml Documented by: Medical Necessity - Tobacco Use Smoking Status: Never smoker Tobacco Use: Non-smoker Assessment/Plan All Active Problems (Last Updated 09/19/18 @ 07:24 by Rema Ocampo) Necrotizing soft tissue infection (Acute) Abdominal wall pain in right flank (Acute) Skin necrosis (Acute) Calciphylaxis (Acute) Cutaneous abscess of abdominal wall (Acute) Complication due to medical care (Acute) Type 2 diabetes mellitus with other skin ulcer (Acute) Neuropathic pain of left hand (Acute) Wound, open, abdominal wall, anterior (Acute) Hyperkalemia (Acute) Pneumonia (Acute) NOEL (acute kidney injury) (Acute) Problem with dialysis access (Acute) Debility (Acute) 1. 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 2. Painful insulin nodules abdominal wall. 3. Diabetes mellitus. 4. ESRD requiring dialysis. 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 6. Abdominal panniculus. 7. Abdominal wall skin crease intertrigo. 8. s/p surgical preparation right lateral abdominal wall with incision and drainage and excisional debridement skin and subcutaneous tissue and fascia nonhealing infected diabetic necrotic ulcerated abscesses necrotizing soft tissue infection (377 cm2) and abdominal panniculectomy. VAC in place. Minimal drainage in the canister. To be changed tomorrow. Operative culture shows Gram negative iglesia thus far. She is on Zosyn. The Vancomycin has been stopped. After discharge back to [facility], can followup at the [facility] in 2-4 weeks. If there is a plateau in the healing process, can proceed with delayed closure with skin grafting or complex secondary wound closure. Some of the infection abscesses could also be related to insulin nodules. She injects her insulin into her abdomen. Suggested to the patient to start insulin injections in the arm and the thigh. Anticipate increased metabolic demands from the wounds and the infection. Will check a Prealbumin and encourage nutritional supplementation with protein to help the healing process. In renal failure patients on dialysis, when necrotic skin infections start developing, calciphylaxis can be present. Sometimes this is progressive and other areas on the abdominal wall and the extremities can develop necrotic skin infections. Because of the severe pain present in these wounds and if multiple wounds develop, these patients sometimes need to go to a Burn Center for more aggressive wound care with a whirlpool and the need for much higher doses of IV analgesia.
[2019-04-28] MEDS: Atorvastatin Calcium 20 MG Tablet PO (22:20)
[2019-04-28] MEDS: Carvedilol 12.5 MG Tablet PO (22:20)
[2019-04-28] MEDS: Montelukast 10 MG Tablet PO (22:20)
[2019-04-28] MEDS: HYDROcodone Bitartrate/Apap 5/325 Tablet PO (23:45)
[2019-04-29] VITALS (10 sets, daily range): BP systolic 106–129; BP diastolic 58–78; PULSE 69–88; RESP 14–17; TEMP 36.3–36.7; O2SAT 94–99
[2019-04-29 01:06] LABS: Bedside Glucose 157 mg/dL (70-110)
[2019-04-29] MEDS: 0.9% Saline Lock 10 ML Syringe IV (01:22)
[2019-04-29] MEDS: Morphine 2 MG/ML Syringe IV ×2 (01:22→10:33)
[2019-04-29] MEDS: HYDROcodone Bitartrate/Apap 5/325 Tablet PO ×3 (04:54→21:37)
[2019-04-29] MEDS: busPIRone 5 MG Tablet PO ×3 (04:55→21:37)
[2019-04-29 06:00] LABS: Absolute Lymphocyte Count 1.55 X10^3/uL (0.83-4.51); Basophil# 0.05 X10^3/uL; Basophil% 0.6 % (0-1); Hematocrit 27.8 % (37-47); Hemoglobin 8.6 g/dL (12.0-15.0); Lymphocyte # 1.55 X10^3/ul (4.0); Lymphocyte % 17.8 % (19-41); Mean Corp Hgb Conc 30.9 g/dL (32-36); Mean Corpuscular Volume 96.9 fL (81-99); Mean Platelet Vol. 11.1 fl (6.2-12.0); Monocyte# 0.89 X10^3/uL; Monocyte% 10.2 % (0-10); NRBC Flagged by Analyzer 0 % (0-5); Neutrophil # 5.98 X10^3/uL (2.7-7.7); Neutrophil % 68.6 % (47-70); Platelet Count 171 K/mm3 (150-450); RBC Distribution Width CV 16.6 % (11.6-14.6); Red Blood Count 2.87 M/mm3 (4.2-5.4); White Blood Count 8.7 K/mm3 (4.4-11.0)
[2019-04-29 06:16] LABS: Albumin, Serum 2.1 g/dL (3.2-5.0); BUN 45 mg/dL (7-18); BUN/Creat Ratio 7.8 RATIO (10-20); Calcium,Total 8.3 mg/dL (8.5-10.1); Chloride 102 mmol/L (98-107); Creatinine, Serum 5.74 mg/dL (0.55-1.02); EST Glomerular Filtration Rate 8 mL/min (>60); Est Glom Filt Rate - Afr Amer 10 mL/min (>60); Estimated Creatinine Clearance 8.95 ml/min; Glucose 151 mg/dL (74-106); Phosphorus 6.1 mg/dL (2.5-4.9); Potassium 4.1 mmol/L (3.5-5.1); Prealbumin 19.1 mg/dL (20.0-40.0); Sodium Level 138 mmol/L (136-145)
[2019-04-29 08:01] LABS: Bedside Glucose 173 mg/dL (70-110)
[2019-04-29] MEDS: Insulin Lispro 100 UNIT/ML INSULN.PEN 12 UNIT SC ×3 (08:40→16:23)
[2019-04-29] MEDS: Insulin Lispro 100 UNIT/ML INSULN.PEN SC ×4 (08:41→21:39)
[2019-04-29] MEDS: Gabapentin 400 MG Capsule PO ×3 (08:47→16:24)
[2019-04-29] MEDS: SEVELAMER CARBONATE 800 MG TABLET 2400 MG PO ×3 (08:48→16:24)
[2019-04-29] MEDS: Carvedilol 12.5 MG Tablet PO ×2 (08:50→21:38)
[2019-04-29] MEDS: Pantoprazole Sodium 20 MG Tablet PO (08:51)
[2019-04-29] MEDS: Sertraline 100 MG Tablet PO (08:51)
[2019-04-29] MEDS: Heparin Injection (Vial) 5,000 UNIT/ML VIAL 5000 UNIT SC (08:58)
--- NOTE | 2019-04-29 10:34 | CASEMGMT ---
JOLIE spoke with patient and confirmed she plans on returning to [facility]. JOLIE asked if they do therapy with her at the residential. She said they were, but insurance cut it. JOLIE told her SW will have to have therapy see her here so we can get insurance to authorize her to return to [facility]. She said that is fine. JOLIE faxed updates to Anjali at [facility]. JOLIE also spoke with Anjali and she said patient will need a pre-cert to return. Plan: [facility] pending insurance. Nadja GARCIA MSW
[2019-04-29 11:15] LABS: Bedside Glucose 240 mg/dL (70-110)
--- NOTE | 2019-04-29 11:21 | PN.SURG_ITS ---
Patient Problems: Active and Suspected Problems (Last Updated 09/19/18 @ 07:24 by Rema Ocampo) Wound, open, abdominal wall, anterior (Acute) Hyperkalemia (Acute) Subjective: Postop #3 Patient is resting comfortably. VAC change today. Had increased pain with the change. - Physical Exam Vitals/I&O's: Vital Signs Temp Pulse Resp BP Pulse Ox 97.9 F 70 14 123/63 H 97 04/29/19 07:46 04/29/19 07:46 04/29/19 07:46 04/29/19 07:46 04/29/19 07:46 Oxygen Flow Rate (L/min) 2 Oxygen Delivery Method Room Air Weight: 256 lb 1.6 oz Body Mass Index (BMI) 44.8 Intake and Output for Last 24 Hours 04/27/19 04/28/19 04/29/19 23:59 23:59 23:59 Intake Total 879.34 / 879.34 1149.83 / 1149.83 187.5 / 187.5 Output Total 3600 / 3600 Balance -2720.66 / -2720.66 1149.83 / 1149.83 187.5 / 187.5 General: Alert, Oriented x3 HEENT: PERRLA, EOMI Oral: Moist Mucosa Neck: Supple Abdomen: Soft, Non-Distended Skin: Ulcer/ Wound - abdominal wall wound is stable. No bleeding seen. VAC changed today. Increased pain with the VAC change. Needed IV analgesia. Neurological: Cranial nerves II-XII grossly intact Psych/Mental Status: Normal Affect, Appropriate Microbiology Past 72 Hours 04/26/19 Unknown Tissue - Abdominal Gram Stain - Final 04/26/19 Unknown Tissue - Abdominal Wound Culture - Preliminary Gram negative iglesia Gram negative iglesia#2 Gram positive organism 04/26/19 Unknown Tissue - Abdominal Anaerobic Culture - Preliminary Checking for anaerobes, further studies to follow. Laboratory Results 04/28/19 11:56: POC Glucose 347 H 04/28/19 16:56: POC Glucose 256 H 04/28/19 22:15: POC Glucose 157 H 04/29/19 05:17: WBC 8.7, RBC 2.87 L, Hgb 8.6 L, Hct 27.8 L, MCV 96.9, MCH 30.0, MCHC 30.9 L, RDW Std Deviation 59.0 H, RDW Coeff of Perico 16.6 H, Plt Count 171, MPV 11.1, Immature Gran % (Auto) 2.800 H, Neut % (Auto) 68.6, Lymph % (Auto) 17.8 L, [place] % (Auto) 10.2 H, Eos % (Auto) 0.0, Baso % (Auto) 0.6, Absolute Neuts (auto) 6.0, Absolute Lymphs (auto) 1.55, Nucleated RBC % 0 04/29/19 05:17: Sodium 138, Potassium 4.1, Chloride 102, Carbon Dioxide 24.0, BUN 45 H, Creatinine 5.74 H, Estim Creat Clear Calc 8.95, Est GFR (MDRD) Af Amer 10 L, Est GFR (MDRD) Non-Af 8 L, BUN/Creatinine Ratio 7.8 L, Glucose 151 H, Calcium 8.3 L, Phosphorus 6.1 H, Albumin 2.1 L, Prealbumin 19.1 L 04/29/19 07:51: POC Glucose 173 H 04/29/19 11:08: POC Glucose 240 H Current Medications Acetaminophen (Tylenol) 650 mg PO Q6H PRN PRN PRN Reason: Non-cardiac pain (mod-severe) Last Admin: 04/28/19 07:35 Dose: 650 mg Documented by: Hydrocodone Bitart/Acetaminophen ([place] 5mg-325mg) 1 - 2 tablet PO Q4H PRN PRN PRN Reason: Pain Score 4-10/10 Last Admin: 04/29/19 04:54 Dose: 2 tablet Documented by: Al Hydroxide/Mg Hydroxide (Mylanta Ii) 15 - 30 ml PO Q4H PRN PRN PRN Reason: INDIGESTION Albuterol Sulfate (Ventolin Aerosols) 2.5 mg INHALATION Q2H PRN PRN PRN Reason: dyspnea, wheezing Atorvastatin Calcium (Lipitor) 20 mg PO QHS [facility] Last Admin: 04/28/19 22:20 Dose: 20 mg Documented by: Buspirone HCl (Buspar) 5 mg PO TID [facility] Last Admin: 04/29/19 04:55 Dose: 5 mg Documented by: Carvedilol (Coreg) 12.5 mg PO BID [facility] Last Admin: 04/29/19 08:50 Dose: 12.5 mg Documented by: Dextrose (D50w Syringe) 0 gm IV X1 PRN; Protocol PRN Reason: Hypoglycemia Gabapentin (Neurontin) 400 mg PO TIDCM [facility] Last Admin: 04/29/19 08:47 Dose: 400 mg Documented by: Glucagon () 1 mg IM .X1 PRN PRN Reason: Hypoglycemia Heparin Sodium (Porcine) (Heparin Na) 5,000 unit SC Q12 [facility] Last Admin: 04/29/19 08:58 Dose: 5,000 unit Documented by: Hydralazine HCl (Apresoline Iv) 10 mg IV Q4H PRN PRN PRN Reason: SBP > 160 Piperacillin Sod/Tazobactam (Sod 3.375 gm/ Sodium Chloride) 50 mls @ 12.5 mls/hr IV Q12 [facility] Last Admin: 04/29/19 09:05 Dose: 12.5 mls/hr Documented by: Sodium Chloride () 250 mls @ 15 mls/hr IV .[id number] PRN PRN Reason: Saline Flush Last Infusion: 04/29/19 05:03 Dose: Infused Documented by: Insulin Glargine (Lantus (Bkc)) 37 units SC DAILY [facility] Last Admin: 04/29/19 08:44 Dose: 37 units Documented by: Insulin Human Lispro (Humalog Kwikpen (Bkc)) 12 unit SC TIDAC [facility] Last Admin: 04/29/19 08:40 Dose: 12 units Documented by: Insulin Human Lispro (Humalog Kwikpen (Bkc)) 0 unit SC ACHS [facility]; Protocol Last Admin: 04/29/19 08:41 Dose: 1 u Documented by: Magnesium Hydroxide (Milk Of Magnesia) 30 ml PO DAILY PRN PRN Reason: Constipation Melatonin (Melatonin) 3 mg PO QHS PRN PRN Reason: SLEEP Montelukast Sodium (Singulair) 10 mg PO QHS [facility] Last Admin: 04/28/19 22:20 Dose: 10 mg Documented by: Morphine Sulfate () 2 - 4 mg IV Q4H PRN PRN PRN Reason: Pain Score 1-10/10 Last Admin: 04/29/19 10:33 Dose: 2 mg Documented by: Ondansetron HCl (Zofran) 4 mg IV Q8H PRN PRN PRN Reason: NAUSEA/VOMITING Pantoprazole Sodium (Protonix) 20 mg PO DAILY [facility] Last Admin: 04/29/19 08:51 Dose: 20 mg Documented by: Polyethylene Glycol (Miralax) 34 gm PO X1 PRN PRN Reason: Bowel Movement Prednisone () 30 mg PO 1200 [facility] Last Admin: 04/26/19 11:21 Dose: Not Given Documented by: Sertraline HCl (Zoloft) 100 mg PO DAILY [facility] Last Admin: 04/29/19 08:51 Dose: 100 mg Documented by: Sevelamer Carbonate (Renvela) 2,400 mg PO TIDCM [facility] Last Admin: 04/29/19 08:48 Dose: 2,400 mg Documented by: Sodium Chloride () 10 - 40 ml IV UD PRN PRN Reason: SALINE FLUSH Last Admin: 04/29/19 01:22 Dose: 10 ml Documented by: Medical Necessity - Tobacco Use Smoking Status: Never smoker Tobacco Use: Non-smoker Assessment/Plan All Active Problems (Last Updated 09/19/18 @ 07:24 by Rema Ocampo) Necrotizing soft tissue infection (Acute) Abdominal wall pain in right flank (Acute) Skin necrosis (Acute) Calciphylaxis (Acute) Cutaneous abscess of abdominal wall (Acute) Complication due to medical care (Acute) Type 2 diabetes mellitus with other skin ulcer (Acute) Neuropathic pain of left hand (Acute) Wound, open, abdominal wall, anterior (Acute) Hyperkalemia (Acute) Pneumonia (Acute) NOEL (acute kidney injury) (Acute) Problem with dialysis access (Acute) Debility (Acute) 1. 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 2. Painful insulin nodules abdominal wall. 3. Diabetes mellitus. 4. ESRD requiring dialysis. 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 6. Abdominal panniculus. 7. Abdominal wall skin crease intertrigo. 8. s/p surgical preparation right lateral abdominal wall with incision and drainage and excisional debridement skin and subcutaneous tissue and fascia nonhealing infected diabetic necrotic ulcerated abscesses necrotizing soft tissue infection (377 cm2) and abdominal panniculectomy. VAC changed today. Increased pain with the VAC change. No bleeding seen in the wound. Needed IV analgesia. Operative culture shows Gram negative iglesia thus far. She is on Zosyn. The Vancomycin has been stopped. After discharge back to [facility], can followup at the [facility] in 2-4 weeks. If there is a plateau in the healing process, can proceed with delayed closure with skin grafting or complex secondary wound closure. Some of the infection abscesses could also be related to insulin nodules. She injects her insulin into her abdomen. Suggested to the patient to start insulin injections in the arm and the thigh. Anticipate increased metabolic demands from the wounds and the infection. Prealbumin was 19.1. Encourage nutritional supplementation with protein to help the healing process. In renal failure patients on dialysis, when necrotic skin infections start developing, calciphylaxis can be present. Sometimes this is progressive and other areas on the abdominal wall and the extremities can develop necrotic skin infections. Because of the severe pain present in these wounds and if multiple wounds develop, these patients sometimes need to go to a Burn Center for more aggressive wound care with a whirlpool and the need for much higher doses of IV analgesia.
--- NOTE | 2019-04-29 11:32 | NURSING ---
wound photo: right lower abdomen
[2019-04-29] MEDS: predniSONE 20 MG Tablet 30 MG PO (11:48)
--- NOTE | 2019-04-29 13:00 | PN.RENAL_ITS ---
Patient Problems: Active and Suspected Problems (Last Updated 09/19/18 @ 07:24 by Rema Ocampo) Wound, open, abdominal wall, anterior (Acute) Hyperkalemia (Acute) Subjective: pain from incision site s/p debridement. Had poor dialysis catheter fxn. on Monday received TPA. Will see if catheter works tomorrow - Physical Exam Vitals/I&O's: Vital Signs Temp Pulse Resp BP Pulse Ox 97.7 F L 73 14 123/61 H 98 04/29/19 12:06 04/29/19 12:06 04/29/19 12:06 04/29/19 12:06 04/29/19 12:06 Oxygen Flow Rate (L/min) 2 Oxygen Delivery Method Room Air Weight: 116.165 kg Body Mass Index (BMI) 44.8 Intake and Output for Last 24 Hours 04/27/19 04/28/19 04/29/19 23:59 23:59 23:59 Intake Total 879.34 / 879.34 1149.83 / 1149.83 287.5 / 287.5 Output Total 3600 / 3600 Balance -2720.66 / -2720.66 1149.83 / 1149.83 287.5 / 287.5 General: Alert Lungs: Clear to auscultation Cardiovascular: Regular rate Abdomen: Bowel Sounds Present, Soft, Non Tender, Non-Distended Extremities: Edema Psych/Mental Status: Normal Affect, Alert and oriented to time, place, person, mood and affect Microbiology Past 72 Hours 04/26/19 Unknown Tissue - Abdominal Gram Stain - Final 04/26/19 Unknown Tissue - Abdominal Wound Culture - Preliminary Gram negative iglesia Gram negative iglesia#2 Gram positive organism 04/26/19 Unknown Tissue - Abdominal Anaerobic Culture - Preliminary Checking for anaerobes, further studies to follow. Laboratory Results 04/28/19 16:56: POC Glucose 256 H 04/28/19 22:15: POC Glucose 157 H 04/29/19 05:17: WBC 8.7, RBC 2.87 L, Hgb 8.6 L, Hct 27.8 L, MCV 96.9, MCH 30.0, MCHC 30.9 L, RDW Std Deviation 59.0 H, RDW Coeff of Perico 16.6 H, Plt Count 171, MPV 11.1, Immature Gran % (Auto) 2.800 H, Neut % (Auto) 68.6, Lymph % (Auto) 17.8 L, [place] % (Auto) 10.2 H, Eos % (Auto) 0.0, Baso % (Auto) 0.6, Absolute Neuts (auto) 6.0, Absolute Lymphs (auto) 1.55, Nucleated RBC % 0 04/29/19 05:17: Sodium 138, Potassium 4.1, Chloride 102, Carbon Dioxide 24.0, BUN 45 H, Creatinine 5.74 H, Estim Creat Clear Calc 8.95, Est GFR (MDRD) Af Amer 10 L, Est GFR (MDRD) Non-Af 8 L, BUN/Creatinine Ratio 7.8 L, Glucose 151 H, Calcium 8.3 L, Phosphorus 6.1 H, Albumin 2.1 L, Prealbumin 19.1 L 04/29/19 07:51: POC Glucose 173 H 04/29/19 11:08: POC Glucose 240 H Current Medications Acetaminophen (Tylenol) 650 mg PO Q6H PRN PRN PRN Reason: Non-cardiac pain (mod-severe) Last Admin: 04/28/19 07:35 Dose: 650 mg Documented by: Hydrocodone Bitart/Acetaminophen ([place] 5mg-325mg) 1 - 2 tablet PO Q4H PRN PRN PRN Reason: Pain Score 4-10/10 Last Admin: 04/29/19 04:54 Dose: 2 tablet Documented by: Al Hydroxide/Mg Hydroxide (Mylanta Ii) 15 - 30 ml PO Q4H PRN PRN PRN Reason: INDIGESTION Albuterol Sulfate (Ventolin Aerosols) 2.5 mg INHALATION Q2H PRN PRN PRN Reason: dyspnea, wheezing Atorvastatin Calcium (Lipitor) 20 mg PO QHS [facility] Last Admin: 04/28/19 22:20 Dose: 20 mg Documented by: Buspirone HCl (Buspar) 5 mg PO TID [facility] Last Admin: 04/29/19 04:55 Dose: 5 mg Documented by: Carvedilol (Coreg) 12.5 mg PO BID [facility] Last Admin: 04/29/19 08:50 Dose: 12.5 mg Documented by: Dextrose (D50w Syringe) 0 gm IV X1 PRN; Protocol PRN Reason: Hypoglycemia Gabapentin (Neurontin) 400 mg PO TIDCM [facility] Last Admin: 04/29/19 11:48 Dose: 400 mg Documented by: Glucagon () 1 mg IM .X1 PRN PRN Reason: Hypoglycemia Heparin Sodium (Porcine) (Heparin Na) 5,000 unit SC Q12 [facility] Last Admin: 04/29/19 08:58 Dose: 5,000 unit Documented by: Hydralazine HCl (Apresoline Iv) 10 mg IV Q4H PRN PRN PRN Reason: SBP > 160 Piperacillin Sod/Tazobactam (Sod 3.375 gm/ Sodium Chloride) 50 mls @ 12.5 mls/hr IV Q12 [facility] Last Admin: 04/29/19 09:05 Dose: 12.5 mls/hr Documented by: Sodium Chloride () 250 mls @ 15 mls/hr IV .[id number] PRN PRN Reason: Saline Flush Last Infusion: 04/29/19 05:03 Dose: Infused Documented by: Insulin Glargine (Lantus (Bkc)) 37 units SC DAILY [facility] Last Admin: 04/29/19 08:44 Dose: 37 units Documented by: Insulin Human Lispro (Humalog Kwikpen (Bkc)) 12 unit SC TIDAC [facility] Last Admin: 04/29/19 11:50 Dose: 12 units Documented by: Insulin Human Lispro (Humalog Kwikpen (Bkc)) 0 unit SC ACHS [facility]; Protocol Last Admin: 04/29/19 11:52 Dose: 3 u Documented by: Magnesium Hydroxide (Milk Of Magnesia) 30 ml PO DAILY PRN PRN Reason: Constipation Melatonin (Melatonin) 3 mg PO QHS PRN PRN Reason: SLEEP Montelukast Sodium (Singulair) 10 mg PO QHS [facility] Last Admin: 04/28/19 22:20 Dose: 10 mg Documented by: Morphine Sulfate () 2 - 4 mg IV Q4H PRN PRN PRN Reason: Pain Score 1-10/10 Last Admin: 04/29/19 10:33 Dose: 2 mg Documented by: Ondansetron HCl (Zofran) 4 mg IV Q8H PRN PRN PRN Reason: NAUSEA/VOMITING Pantoprazole Sodium (Protonix) 20 mg PO DAILY [facility] Last Admin: 04/29/19 08:51 Dose: 20 mg Documented by: Polyethylene Glycol (Miralax) 34 gm PO X1 PRN PRN Reason: Bowel Movement Prednisone () 30 mg PO 1200 [facility] Last Admin: 04/29/19 11:48 Dose: 30 mg Documented by: Sertraline HCl (Zoloft) 100 mg PO DAILY [facility] Last Admin: 04/29/19 08:51 Dose: 100 mg Documented by: Sevelamer Carbonate (Renvela) 2,400 mg PO TIDCM [facility] Last Admin: 04/29/19 11:49 Dose: 2,400 mg Documented by: Sodium Chloride () 10 - 40 ml IV UD PRN PRN Reason: SALINE FLUSH Last Admin: 04/29/19 01:22 Dose: 10 ml Documented by: Medical Necessity - Tobacco Use Smoking Status: Never smoker Tobacco Use: Non-smoker Assessment/Plan All Active Problems (Last Updated 09/19/18 @ 07:24 by Rema Ocampo) Necrotizing soft tissue infection (Acute) Abdominal wall pain in right flank (Acute) Skin necrosis (Acute) Calciphylaxis (Acute) Cutaneous abscess of abdominal wall (Acute) Complication due to medical care (Acute) Type 2 diabetes mellitus with other skin ulcer (Acute) Neuropathic pain of left hand (Acute) Wound, open, abdominal wall, anterior (Acute) Hyperkalemia (Acute) Pneumonia (Acute) NOEL (acute kidney injury) (Acute) Problem with dialysis access (Acute) Debility (Acute) 1. ESRD HD THS. Poor catheter fxn on Sat requiring TPA. 2. Abdominal wall abscess, skin necrosis. Check bx for calciphylaxis. Stop all calcium based binders 3. DM2 primary mgmt 4. HTN stable 5. Anemia parag on dialysis 6. hyperphosphatemia, stop calcium based binders switched to renvela. 7. 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
[2019-04-29] MEDS: Epoetin Alfa epbx 10,000 UNITS/ML 10000 UNIT SC (14:19)
--- NOTE | 2019-04-29 14:51 | CASEMGMT ---
Faxed therapy evaluations to [facility]. Nadja GARCIA STEAMBOAT CAPTAIN
[2019-04-29 16:36] LABS: Bedside Glucose 289 mg/dL (70-110)
--- NOTE | 2019-04-29 17:43 | PN_ITS ---
Patient Problems: Active and Suspected Problems (Last Updated 09/19/18 @ 07:24 by Rema Ocampo) Wound, open, abdominal wall, anterior (Acute) Hyperkalemia (Acute) Subjective: Patient was seen and examined today, her venous duplex scan of her right leg showed the presence of a DVT, I placed the patient on Eliquis, I let nephrology know that I had started this medication. - Physical Exam Vitals/I&O's: Vital Signs Temp Pulse Resp BP Pulse Ox 97.9 F 69 17 129/58 H 97 04/29/19 16:00 04/29/19 16:00 04/29/19 16:00 04/29/19 16:00 04/29/19 16:00 Oxygen Flow Rate (L/min) 2 Oxygen Delivery Method Room Air Weight: 116.165 kg Body Mass Index (BMI) 44.8 Intake and Output for Last 24 Hours 04/27/19 04/28/19 04/29/19 23:59 23:59 23:59 Intake Total 879.34 / 879.34 1149.83 / 1149.83 337.5 / 337.5 Output Total 3600 / 3600 Balance -2720.66 / -2720.66 1149.83 / 1149.83 337.5 / 337.5 General: Alert, Oriented x3, Cooperative, No apparent distress, Well developed HEENT: Atraumatic, PERRLA, EOMI, Normocephalic Oral: Moist Mucosa Neck: Supple, Trachea Midline, Thyroid Normal Size and Texture Lungs: Clear to auscultation, Normal air movement, No rhonchi, No wheeze, No rales Cardiovascular: Regular rate, Regular Rhythm, Normal S1, Normal S2, No murmurs Abdomen: Bowel Sounds Present, Non-Distended, - - Wound VAC is present over the patient's mid abdominal area Extremities: No clubbing, No cyanosis, Capillary Refill Less than 3 Seconds, Edema - +2 mm pitting edema is noted over the patient's lower legs Skin: No rashes, No breakdown Musculoskeletal: No Tenderness to Palpation of Joints or Extremities Neurological: Cranial nerves II-XII grossly intact, Sensory exam intact to light touch and pain, - - Patient is paraplegic Psych/Mental Status: Normal Affect, Appropriate, Alert and oriented to time, place, person, mood and affect Microbiology Past 72 Hours 11/08/19 Unknown Tissue - Abdominal Gram Stain - Final 04/26/19 Unknown Tissue - Abdominal Wound Culture - Preliminary Gram negative iglesia Gram negative iglesia#2 Gram positive organism 04/26/19 Unknown Tissue - Abdominal Anaerobic Culture - Preliminary Checking for anaerobes, further studies to follow. Laboratory Results 04/28/19 22:15: POC Glucose 157 H 04/29/19 05:17: WBC 8.7, RBC 2.87 L, Hgb 8.6 L, Hct 27.8 L, MCV 96.9, MCH 30.0, MCHC 30.9 L, RDW Std Deviation 59.0 H, RDW Coeff of Perico 16.6 H, Plt Count 171, MPV 11.1, Immature Gran % (Auto) 2.800 H, Neut % (Auto) 68.6, Lymph % (Auto) 17.8 L, [place] % (Auto) 10.2 H, Eos % (Auto) 0.0, Baso % (Auto) 0.6, Absolute Neuts (auto) 6.0, Absolute Lymphs (auto) 1.55, Nucleated RBC % 0 04/29/19 05:17: Sodium 138, Potassium 4.1, Chloride 102, Carbon Dioxide 24.0, BUN 45 H, Creatinine 5.74 H, Estim Creat Clear Calc 8.95, Est GFR (MDRD) Af Amer 10 L, Est GFR (MDRD) Non-Af 8 L, BUN/Creatinine Ratio 7.8 L, Glucose 151 H, Calcium 8.3 L, Phosphorus 6.1 H, Albumin 2.1 L, Prealbumin 19.1 L 04/29/19 07:51: POC Glucose 173 H 04/29/19 11:08: POC Glucose 240 H 04/29/19 16:21: POC Glucose 289 H Current Medications Acetaminophen (Tylenol) 650 mg PO Q6H PRN PRN PRN Reason: Non-cardiac pain (mod-severe) Last Admin: 04/28/19 07:35 Dose: 650 mg Documented by: Hydrocodone Bitart/Acetaminophen ([place] 5mg-325mg) 1 - 2 tablet PO Q4H PRN PRN PRN Reason: Pain Score 4-10/10 Last Admin: 04/29/19 16:29 Dose: 2 tablet Documented by: Al Hydroxide/Mg Hydroxide (Mylanta Ii) 15 - 30 ml PO Q4H PRN PRN PRN Reason: INDIGESTION Albuterol Sulfate (Ventolin Aerosols) 2.5 mg INHALATION Q2H PRN PRN PRN Reason: dyspnea, wheezing Apixaban (Eliquis) 10 mg PO BID [facility] Stop: 05/05/19 22:00 Atorvastatin Calcium (Lipitor) 20 mg PO QHS [facility] Last Admin: 04/28/19 22:20 Dose: 20 mg Documented by: Buspirone HCl (Buspar) 5 mg PO TID [facility] Last Admin: 04/29/19 14:18 Dose: 5 mg Documented by: Carvedilol (Coreg) 12.5 mg PO BID [facility] Last Admin: 04/29/19 08:50 Dose: 12.5 mg Documented by: Dextrose (D50w Syringe) 0 gm IV X1 PRN; Protocol PRN Reason: Hypoglycemia Gabapentin (Neurontin) 400 mg PO TIDCM [facility] Last Admin: 04/29/19 16:24 Dose: 400 mg Documented by: Glucagon () 1 mg IM .X1 PRN PRN Reason: Hypoglycemia Hydralazine HCl (Apresoline Iv) 10 mg IV Q4H PRN PRN PRN Reason: SBP > 160 Piperacillin Sod/Tazobactam (Sod 3.375 gm/ Sodium Chloride) 50 mls @ 12.5 mls/hr IV Q12 [facility] Last Infusion: 04/29/19 13:10 Dose: Infused Documented by: Sodium Chloride () 250 mls @ 15 mls/hr IV .[id number] PRN PRN Reason: Saline Flush Last Infusion: 04/29/19 05:03 Dose: Infused Documented by: Insulin Glargine (Lantus (Bkc)) 37 units SC DAILY [facility] Last Admin: 04/29/19 08:44 Dose: 37 units Documented by: Insulin Human Lispro (Humalog Kwikpen (Bk)) 12 unit SC TIDAC [facility] Last Admin: 04/29/19 16:23 Dose: 12 units Documented by: Insulin Human Lispro (Humalog Kwikpen (Bkc)) 0 unit SC ACHS [facility]; Protocol Last Admin: 04/29/19 16:24 Dose: 4 u Documented by: Magnesium Hydroxide (Milk Of Magnesia) 30 ml PO DAILY PRN PRN Reason: Constipation Melatonin (Melatonin) 3 mg PO QHS PRN PRN Reason: SLEEP Montelukast Sodium (Singulair) 10 mg PO QHS [facility] Last Admin: 04/28/19 22:20 Dose: 10 mg Documented by: Morphine Sulfate () 2 - 4 mg IV Q4H PRN PRN PRN Reason: Pain Score 1-10/10 Last Admin: 04/29/19 10:33 Dose: 2 mg Documented by: Nutritional Formula ([place]ando - [place] Flavor) 1 packet PO BIDCM [facility] Last Admin: 04/29/19 16:24 Dose: 1 packet Documented by: Ondansetron HCl (Zofran) 4 mg IV Q8H PRN PRN PRN Reason: NAUSEA/VOMITING Pantoprazole Sodium (Protonix) 20 mg PO DAILY [facility] Last Admin: 04/29/19 08:51 Dose: 20 mg Documented by: Polyethylene Glycol (Miralax) 34 gm PO X1 PRN PRN Reason: Bowel Movement Prednisone () 30 mg PO 1200 [facility] Last Admin: 04/29/19 11:48 Dose: 30 mg Documented by: Sertraline HCl (Zoloft) 100 mg PO DAILY [facility] Last Admin: 04/29/19 08:51 Dose: 100 mg Documented by: Sevelamer Carbonate (Renvela) 2,400 mg PO TIDCM [facility] Last Admin: 04/29/19 16:24 Dose: 2,400 mg Documented by: Sodium Chloride () 10 - 40 ml IV UD PRN PRN Reason: SALINE FLUSH Last Admin: 04/29/19 01:22 Dose: 10 ml Documented by: Medical Necessity - Tobacco Use Smoking Status: Never smoker Tobacco Use: Non-smoker Assessment/Plan All Active Problems (Last Updated 09/19/18 @ 07:24 by Rema Ocampo) Necrotizing soft tissue infection (Acute) Abdominal wall pain in right flank (Acute) Skin necrosis (Acute) Calciphylaxis (Acute) Cutaneous abscess of abdominal wall (Acute) Complication due to medical care (Acute) Type 2 diabetes mellitus with other skin ulcer (Acute) Neuropathic pain of left hand (Acute) Wound, open, abdominal wall, anterior (Acute) Hyperkalemia (Acute) Pneumonia (Acute) NOEL (acute kidney injury) (Acute) Problem with dialysis access (Acute) Debility (Acute) #1 abdominal wall wound secondary to calciphylaxis-patient presently has a wound VAC over the area, it is planned that the patient will return to a longterm facility at the time of discharge from the hospital #2 calciphylaxis #3 DVT right leg-patient was placed on Eliquis #4 end-stage renal disease secondary to type 2 diabetes-on dialysis #5 type 2 diabetes-continue present monitoring blood sugars and administration of insulin #6 chronic inflammatory demyelinating polyneuropathy #7 paraplegia secondary to #6 #8 morbid obesity #9 hyperlipidemia #10 essential hypertension #11 left lower leg/calf pain-etiology unclear, patient will have a venous duplex scan of her left lower leg performed. #12 chronic anxiety and depression #13 anemia chronic renal disease Code Visit Inpatient E&M: 38695 Subs Hosp L2
[2019-04-29] MEDS: Montelukast 10 MG Tablet PO (21:38)
[2019-04-29] MEDS: Atorvastatin Calcium 20 MG Tablet PO (21:39)
[2019-04-29] MEDS: APIXABAN 5 MG TABLET 10 MG PO (21:46)
[2019-04-29 21:51] LABS: Bedside Glucose 312 mg/dL (70-110)
[2019-04-30] VITALS (12 sets, daily range): BP systolic 82–144; BP diastolic 47–79; PULSE 57–75; RESP 16–20; TEMP 36.4–37.2; O2SAT 94–100
[2019-04-30] MEDS: HYDROcodone Bitartrate/Apap 5/325 Tablet PO ×4 (02:38→20:22)
[2019-04-30] MEDS: busPIRone 5 MG Tablet PO ×3 (05:51→21:44)
[2019-04-30 07:34] LABS: Hematocrit 27.6 % (37-47); Hemoglobin 8.7 g/dL (12.0-15.0); Mean Corp Hgb Conc 31.5 g/dL (32-36); Mean Corpuscular Hgb 30.3 pg (27.0-32.0); Mean Corpuscular Volume 96.2 fL (81-99); Mean Platelet Vol. 11.6 fl (6.2-12.0); Platelet Count 197 K/mm3 (150-450); RBC Distribution Width CV 16.6 % (11.6-14.6); RBC Distribution Width SD 58.3 fl (35.1-43.9); Red Blood Count 2.87 M/mm3 (4.2-5.4); White Blood Count 10.4 K/mm3 (4.4-11.0)
[2019-04-30 07:53] LABS: Albumin, Serum 2.2 g/dL (3.2-5.0); BUN 60 mg/dL (7-18); BUN/Creat Ratio 8.7 RATIO (10-20); Calcium,Total 8.5 mg/dL (8.5-10.1); Chloride 99 mmol/L (98-107); Creatinine, Serum 6.87 mg/dL (0.55-1.02); EST Glomerular Filtration Rate 7 mL/min (>60); Est Glom Filt Rate - Afr Amer 8 mL/min (>60); Estimated Creatinine Clearance 7.47 ml/min; Glucose 241 mg/dL (74-106); Phosphorus 6.8 mg/dL (2.5-4.9); Potassium 5.1 mmol/L (3.5-5.1); Sodium Level 132 mmol/L (136-145)
[2019-04-30] MEDS: Insulin Lispro 100 UNIT/ML INSULN.PEN SC ×3 (08:14→21:44)
[2019-04-30] MEDS: Insulin Lispro 100 UNIT/ML INSULN.PEN 12 UNIT SC ×3 (08:14→17:21)
--- NOTE | 2019-04-30 09:53 | CASEMGMT ---
Patient has a healthcare POA and healthcare LW on file at [facility]. Her daughter is her POA. Nadja GARCIA MSW
--- NOTE | 2019-04-30 11:41 | CASEMGMT ---
Social Work Palliative Care Screening Tool completed with a pt score of 10. JOLIE met with pt and spouse and explained palliative care program and provided written information. Pt is agreeable to meet with palliative care for more information. Referral made to Tiffanie at [facility]. Information faxed. Tiffanie will be in contact with pt to set appointment to see patient. BERNARD Finney
--- NOTE | 2019-04-30 12:35 | PCM.PN.REN ---
Patient Problems: Active and Suspected Problems (Last Updated 09/19/18 @ 07:24 by Rema Ocampo) Wound, open, abdominal wall, anterior (Acute) Hyperkalemia (Acute) Subjective: seen on dialysis poor catheter fxn. will close with TPA after dialysis. - Physical Exam Vitals/I&O's: Vital Signs Temp Pulse Resp BP Pulse Ox 97.5 F L 75 18 103/61 100 04/30/19 09:45 04/30/19 09:45 04/30/19 09:45 04/30/19 09:45 04/30/19 09:45 Oxygen Flow Rate (L/min) 2 Oxygen Delivery Method Nasal Cannula Weight: 119.2 kg Body Mass Index (BMI) 44.8 Intake and Output for Last 24 Hours 04/28/19 04/29/19 04/30/19 23:59 23:59 23:59 Intake Total 1149.83 / 1149.83 866.88 / 866.88 120.62 / 120.62 Output Total 0 / 0 Balance 1149.83 / 1149.83 866.88 / 866.88 120.62 / 120.62 General: Alert, Oriented x3, Cooperative Lungs: Clear to auscultation Cardiovascular: Regular rate Abdomen: Bowel Sounds Present, Soft, Non-Distended, Obese, Tender - over incision site Extremities: Edema Psych/Mental Status: Alert and oriented to time, place, person, mood and affect Microbiology Past 72 Hours 04/26/19 Unknown Tissue - Abdominal Gram Stain - Final 04/26/19 Unknown Tissue - Abdominal Wound Culture - Final Proteus mirabilis Pseudomonas aeroginosa Staphylococcus aureus 04/26/19 Unknown Tissue - Abdominal Anaerobic Culture - Preliminary Checking for anaerobes, further studies to follow. Laboratory Results 04/29/19 16:21: POC Glucose 289 H 04/29/19 21:36: POC Glucose 312 H 04/30/19 07:08: Sodium 132 L, Potassium 5.1, Chloride 99, Carbon Dioxide 20.0 L, BUN 60 H, Creatinine 6.87 H, Estim Creat Clear Calc 7.47, Est GFR (MDRD) Af Amer 8 L, Est GFR (MDRD) Non-Af 7 L, BUN/Creatinine Ratio 8.7 L, Glucose 241 H, Calcium 8.5, Phosphorus 6.8 H, Albumin 2.2 L 04/30/19 07:08: WBC 10.4, RBC 2.87 L, Hgb 8.7 L, Hct 27.6 L, MCV 96.2, MCH 30.3, MCHC 31.5 L, RDW Std Deviation 58.3 H, RDW Coeff of Perico 16.6 H, Plt Count 197, MPV 11.6 Current Medications Acetaminophen (Tylenol) 650 mg PO Q6H PRN PRN PRN Reason: Non-cardiac pain (mod-severe) Last Admin: 04/28/19 07:35 Dose: 650 mg Documented by: Hydrocodone Bitart/Acetaminophen ([place] 5mg-325mg) 1 - 2 tablet PO Q4H PRN PRN PRN Reason: Pain Score 4-1010 Last Admin: 04/30/19 06:42 Dose: 2 tablet Documented by: Al Hydroxide/Mg Hydroxide (Mylanta Ii) 15 - 30 ml PO Q4H PRN PRN PRN Reason: INDIGESTION Albuterol Sulfate (Ventolin Aerosols) 2.5 mg INHALATION Q2H PRN PRN PRN Reason: dyspnea, wheezing Atorvastatin Calcium (Lipitor) 20 mg PO QHS COUNTS INCLUDE 234 BEDS AT THE [facility] Last Admin: 04/29/19 21:39 Dose: 20 mg Documented by: Buspirone HCl (Buspar) 5 mg PO TID COUNTS INCLUDE 234 BEDS AT THE [facility] Last Admin: 04/30/19 05:51 Dose: 5 mg Documented by: Carvedilol (Coreg) 12.5 mg PO BID COUNTS INCLUDE 234 BEDS AT THE [facility] Last Admin: 04/29/19 21:38 Dose: 12.5 mg Documented by: Dextrose (D50w Syringe) 0 gm IV X1 PRN; Protocol PRN Reason: Hypoglycemia Gabapentin (Neurontin) 400 mg PO TIDCM COUNTS INCLUDE 234 BEDS AT THE [facility] Last Admin: 04/30/19 10:41 Dose: Not Given Documented by: Glucagon () 1 mg IM .X1 PRN PRN Reason: Hypoglycemia Hydralazine HCl (Apresoline Iv) 10 mg IV Q4H PRN PRN PRN Reason: SBP > 160 Hydromorphone HCl (Dilaudid Inj) 1 mg IV DAILY PRN PRN PRN Reason: Pain Score 6-10/10 Piperacillin Sod/Tazobactam (Sod 3.375 gm/ Sodium Chloride) 50 mls @ 12.5 mls/hr IV Q12 COUNTS INCLUDE 234 BEDS AT THE [facility] Last Infusion: 04/30/19 01:37 Dose: Infused Documented by: Sodium Chloride () 250 mls @ 15 mls/hr IV .[id number] PRN PRN Reason: Saline Flush Last Infusion: 04/29/19 05:03 Dose: Infused Documented by: Insulin Glargine (Lantus (Bkc)) 37 units SC DAILY COUNTS INCLUDE 234 BEDS AT THE [facility] Last Admin: 04/30/19 08:14 Dose: 37 units Documented by: Insulin Human Lispro (Humalog Kwikpen (Bk)) 12 unit SC TIDAC COUNTS INCLUDE 234 BEDS AT THE [facility] Last Admin: 04/30/19 08:14 Dose: 12 units Documented by: Insulin Human Lispro (Humalog Kwikpen (Bk)) 0 unit SC ACHS COUNTS INCLUDE 234 BEDS AT THE [facility]; Protocol Last Admin: 04/30/19 08:14 Dose: 2 u Documented by: Magnesium Hydroxide (Milk Of Magnesia) 30 ml PO DAILY PRN PRN Reason: Constipation Melatonin (Melatonin) 3 mg PO QHS PRN PRN Reason: SLEEP Montelukast Sodium (Singulair) 10 mg PO QHS COUNTS INCLUDE 234 BEDS AT THE [facility] Last Admin: 04/29/19 21:38 Dose: 10 mg Documented by: Morphine Sulfate () 2 - 4 mg IV Q4H PRN PRN PRN Reason: Pain Score 1-10/10 Last Admin: 04/29/19 10:33 Dose: 2 mg Documented by: Nutritional Formula (Fernando - [place] Flavor) 1 packet PO BIDCM COUNTS INCLUDE 234 BEDS AT THE [facility] Last Admin: 04/29/19 16:24 Dose: 1 packet Documented by: Ondansetron HCl (Zofran) 4 mg IV Q8H PRN PRN PRN Reason: NAUSEA/VOMITING Pantoprazole Sodium (Protonix) 20 mg PO DAILY COUNTS INCLUDE 234 BEDS AT THE [facility] Last Admin: 04/29/19 08:51 Dose: 20 mg Documented by: Polyethylene Glycol (Miralax) 34 gm PO X1 PRN PRN Reason: Bowel Movement Prednisone () 30 mg PO 1200 COUNTS INCLUDE 234 BEDS AT THE [facility] Last Admin: 04/29/19 11:48 Dose: 30 mg Documented by: Sertraline HCl (Zoloft) 100 mg PO DAILY COUNTS INCLUDE 234 BEDS AT THE [facility] Last Admin: 04/29/19 08:51 Dose: 100 mg Documented by: Sevelamer Carbonate (Renvela) 2,400 mg PO TIDCM COUNTS INCLUDE 234 BEDS AT THE [facility] Last Admin: 04/30/19 10:41 Dose: Not Given Documented by: Sodium Chloride () 10 - 40 ml IV UD PRN PRN Reason: SALINE FLUSH Last Admin: 04/29/19 01:22 Dose: 10 ml Documented by: Medical Necessity - Tobacco Use Smoking Status: Never smoker Tobacco Use: Non-smoker Assessment/Plan All Active Problems (Last Updated 09/19/18 @ 07:24 by Rema Ocampo) Necrotizing soft tissue infection (Acute) Abdominal wall pain in right flank (Acute) Skin necrosis (Acute) Calciphylaxis (Acute) Cutaneous abscess of abdominal wall (Acute) Complication due to medical care (Acute) Type 2 diabetes mellitus with other skin ulcer (Acute) Neuropathic pain of left hand (Acute) Wound, open, abdominal wall, anterior (Acute) Hyperkalemia (Acute) Pneumonia (Acute) NOEL (acute kidney injury) (Acute) Problem with dialysis access (Acute) Debility (Acute) 1. ESRD HD THS. Poor catheter fxn on Sat and today. Close with TPA. May need catheter exchanged 2. Abdominal wall abscess, skin necrosis s/p debridement Check bx for calciphylaxis. Stop all calcium based binders 3. DM2 primary mgmt 4. HTN stable 5. Anemia parag sc yesterday 6. hyperphosphatemia, stop calcium based binders, switched to renvela. 7. 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
--- NOTE | 2019-04-30 13:00 | DIALYSIS ---
Hemodialysis x 4 hours completed. Pt tolerated tx well. Fluid balance -3000ml. CVC functionally poorly. BFR 200 throughout tx. Line closed using Cathflo to fill volume per Dr. Lew orders. Report given to DAXA Quintana. Pt stable.
[2019-04-30] MEDS: Carvedilol 12.5 MG Tablet PO ×2 (13:07→21:43)
[2019-04-30] MEDS: Pantoprazole Sodium 20 MG Tablet PO (13:07)
[2019-04-30] MEDS: Sertraline 100 MG Tablet PO (13:07)
[2019-04-30] MEDS: predniSONE 20 MG Tablet 30 MG PO (13:08)
[2019-04-30] MEDS: Gabapentin 400 MG Capsule PO ×2 (13:08→17:21)
[2019-04-30] MEDS: Heparin 10,000 UNITS/10 ML Vial 4000 UNITS IV (13:18)
[2019-04-30] MEDS: Alteplase 2 MG/2 ML Vial IV ×2 (13:18)
[2019-04-30] MEDS: 0.9% Saline Lock 10 ML Syringe IV ×2 (13:21→14:48)
[2019-04-30 13:26] LABS: Bedside Glucose 148 mg/dL (70-110)
[2019-04-30 13:26] LABS: Bedside Glucose 214 mg/dL (70-110)
--- NOTE | 2019-04-30 13:44 | PCM.PROGNOTE ---
<Kathi Steele - Last Filed: 04/30/19 14:00> Patient Problems: Active and Suspected Problems (Last Updated 09/19/18 @ 07:24 by Rema Ocampo) Wound, open, abdominal wall, anterior (Acute) Subjective: Patient seen and examined. Undergoing dialysis. Dialysis nurse reports left chest catheter is not working properly. Patient reports abdominal pain secondary to surgery, worse with movement. No other current complaints. - Physical Exam Vitals/I&O's: Vital Signs Temp Pulse Resp BP Pulse Ox 97.5 F L 75 18 103/61 100 04/30/19 09:45 04/30/19 09:45 04/30/19 09:45 04/30/19 09:45 04/30/19 09:45 Oxygen Flow Rate (L/min) 2 Oxygen Delivery Method Room Air Weight: 262 lb 12.656 oz Body Mass Index (BMI) 44.8 Intake and Output for Last 24 Hours 04/28/19 04/29/19 04/30/19 23:59 23:59 23:59 Intake Total 1149.83 / 1149.83 866.88 / 866.88 380.62 / 380.62 Output Total 0 / 0 Balance 1149.83 / 1149.83 866.88 / 866.88 380.62 / 380.62 General: Alert, Oriented x3, Cooperative HEENT: Atraumatic, PERRLA, EOMI, Normocephalic Oral: Moist Mucosa Neck: Supple, No JVD, Negative Carotid Bruits Lungs: Clear to auscultation, Normal air movement Cardiovascular: Regular rate, Regular Rhythm, Normal S1, Normal S2, No murmurs Abdomen: Bowel Sounds Present, Soft, Non Tender, Non-Distended, - - Wound VAC lower abdomen in place Extremities: No clubbing, No cyanosis, - - Edema bilateral lower extremities Skin: - - Lower abdominal wound VAC in place Musculoskeletal: No Tenderness to Palpation of Joints or Extremities Neurological: Cranial nerves II-XII grossly intact, - - Paraplegia Psych/Mental Status: Normal Affect, Appropriate Microbiology Past 72 Hours 04/26/19 Unknown Tissue - Abdominal Gram Stain - Final 04/26/19 Unknown Tissue - Abdominal Wound Culture - Final Proteus mirabilis Pseudomonas aeroginosa Staphylococcus aureus 04/26/19 Unknown Tissue - Abdominal Anaerobic Culture - Preliminary Checking for anaerobes, further studies to follow. Laboratory Results 04/29/19 16:21: POC Glucose 289 H 04/29/19 21:36: POC Glucose 312 H 04/30/19 07:08: Sodium 132 L, Potassium 5.1, Chloride 99, Carbon Dioxide 20.0 L, BUN 60 H, Creatinine 6.87 H, Estim Creat Clear Calc 7.47, Est GFR (MDRD) Af Amer 8 L, Est GFR (MDRD) Non-Af 7 L, BUN/Creatinine Ratio 8.7 L, Glucose 241 H, Calcium 8.5, Phosphorus 6.8 H, Albumin 2.2 L 04/30/19 07:08: WBC 10.4, RBC 2.87 L, Hgb 8.7 L, Hct 27.6 L, MCV 96.2, MCH 30.3, MCHC 31.5 L, RDW Std Deviation 58.3 H, RDW Coeff of Perico 16.6 H, Plt Count 197, MPV 11.6 04/30/19 08:12: POC Glucose 214 H 04/30/19 13:04: POC Glucose 148 H Current Medications Acetaminophen (Tylenol) 650 mg PO Q6H PRN PRN PRN Reason: Non-cardiac pain (mod-severe) Last Admin: 04/28/19 07:35 Dose: 650 mg Documented by: Hydrocodone Bitart/Acetaminophen ([place] 5mg-325mg) 1 - 2 tablet PO Q4H PRN PRN PRN Reason: Pain Score 4-10/10 Last Admin: 04/30/19 13:13 Dose: 2 tablet Documented by: Al Hydroxide/Mg Hydroxide (Mylanta Ii) 15 - 30 ml PO Q4H PRN PRN PRN Reason: INDIGESTION Albuterol Sulfate (Ventolin Aerosols) 2.5 mg INHALATION Q2H PRN PRN PRN Reason: dyspnea, wheezing Atorvastatin Calcium (Lipitor) 20 mg PO QHS [facility] Last Admin: 04/29/19 21:39 Dose: 20 mg Documented by: Buspirone HCl (Buspar) 5 mg PO TID [facility] Last Admin: 04/30/19 13:08 Dose: 5 mg Documented by: Carvedilol (Coreg) 12.5 mg PO BID [facility] Last Admin: 04/30/19 13:07 Dose: 12.5 mg Documented by: Dextrose (D50w Syringe) 0 gm IV X1 PRN; Protocol PRN Reason: Hypoglycemia Gabapentin (Neurontin) 400 mg PO TIDCM [facility] Last Admin: 04/30/19 13:08 Dose: 400 mg Documented by: Glucagon () 1 mg IM .X1 PRN PRN Reason: Hypoglycemia Hydralazine HCl (Apresoline Iv) 10 mg IV Q4H PRN PRN PRN Reason: SBP > 160 Hydromorphone HCl (Dilaudid Inj) 1 mg IV DAILY PRN PRN PRN Reason: Pain Score 6-10/10 Piperacillin Sod/Tazobactam (Sod 3.375 gm/ Sodium Chloride) 50 mls @ 12.5 mls/hr IV Q12 [facility] Last Admin: 04/30/19 13:21 Dose: 12.5 mls/hr Documented by: Sodium Chloride () 250 mls @ 15 mls/hr IV .[id number] PRN PRN Reason: Saline Flush Last Infusion: 04/29/19 05:03 Dose: Infused Documented by: Insulin Glargine (Lantus (Bkc)) 37 units SC DAILY [facility] Last Admin: 04/30/19 08:14 Dose: 37 units Documented by: Insulin Human Lispro (Humalog Kwikpen (Bkc)) 12 unit SC TIDAC [facility] Last Admin: 04/30/19 13:07 Dose: 12 units Documented by: Insulin Human Lispro (Humalog Kwikpen (Bkc)) 0 unit SC ACHS [facility]; Protocol Last Admin: 04/30/19 13:07 Dose: Not Given Documented by: Magnesium Hydroxide (Milk Of Magnesia) 30 ml PO DAILY PRN PRN Reason: Constipation Melatonin (Melatonin) 3 mg PO QHS PRN PRN Reason: SLEEP Montelukast Sodium (Singulair) 10 mg PO QHS [facility] Last Admin: 04/29/19 21:38 Dose: 10 mg Documented by: Morphine Sulfate () 2 - 4 mg IV Q4H PRN PRN PRN Reason: Pain Score 1-10/10 Last Admin: 04/29/19 10:33 Dose: 2 mg Documented by: Nutritional Formula (Fernando - [place] Flavor) 1 packet PO BIDCM [facility] Last Admin: 04/30/19 13:06 Dose: 1 packet Documented by: Ondansetron HCl (Zofran) 4 mg IV Q8H PRN PRN PRN Reason: NAUSEA/VOMITING Pantoprazole Sodium (Protonix) 20 mg PO DAILY [facility] Last Admin: 04/30/19 13:07 Dose: 20 mg Documented by: Polyethylene Glycol (Miralax) 34 gm PO X1 PRN PRN Reason: Bowel Movement Prednisone () 30 mg PO 1200 [facility] Last Admin: 04/30/19 13:08 Dose: 30 mg Documented by: Sertraline HCl (Zoloft) 100 mg PO DAILY [facility] Last Admin: 04/30/19 13:07 Dose: 100 mg Documented by: Sevelamer Carbonate (Renvela) 3,200 mg PO TIDCM [facility] Sodium Chloride () 10 - 40 ml IV UD PRN PRN Reason: SALINE FLUSH Last Admin: 04/30/19 13:21 Dose: 10 ml Documented by: Medical Necessity - Tobacco Use Smoking Status: Never smoker Tobacco Use: Non-smoker Assessment/Plan All Active Problems (Last Updated 09/19/18 @ 07:24 by Rema Ocampo) Necrotizing soft tissue infection (Acute) Abdominal wall pain in right flank (Acute) Skin necrosis (Acute) Calciphylaxis (Acute) Cutaneous abscess of abdominal wall (Acute) Wound, open, abdominal wall, anterior (Acute) Problem with dialysis access (Acute) 1. 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 Wound RN consult. Wound VAC in place. PRN pain regimen. SNF at discharge when medically stable. 2. Acute right leg DVT-initially placed on Eliquis which is now on hold due to possible need for dialysis catheter change. Heparin drip. 3. End-stage renal disease on hemodialysis Monday, , Monday-nephrology consulted, Dr. Lew. Left chest dialysis catheter reported to not be working correctly. Cathflo administered by hydrodynamics teacher. Plan to reassess on . If catheter continues to not be working properly on , may plan for catheter change. 4. Hypertension-stable, continue home Coreg, Lasix, hydralazine, losartan regimen. 5. Hyperlipidemia-continue statin. 6. Type 2 diabetes [id number]-Aonw-Isquw AC at bedtime with sliding scale insulin. 7. Morbid obesity-encouraged diet lifestyle modifications. 8. Anxiety/depression-continue home BuSpar, sertraline regimen. 9. 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 PT/OT. 10. Anemia of chronic disease-stable, trend CBC. 11. GERD-continue PPI. DVT prophylaxis-heparin drip This patient was seen by MANAV Harris under the supervision of Dr. Naylor. <Toma Naylor E - Last Filed: 04/30/19 14:20> - Physical Exam Vitals/I&O's: Vital Signs Temp Pulse Resp BP Pulse Ox 97.5 F L 75 18 103/61 100 04/30/19 09:45 04/30/19 09:45 04/30/19 09:45 04/30/19 09:45 04/30/19 09:45 Oxygen Flow Rate (L/min) 2 Oxygen Delivery Method Room Air Weight: 262 lb 12.656 oz Body Mass Index (BMI) 44.8 Intake and Output for Last 24 Hours 04/28/19 04/29/19 04/30/19 23:59 23:59 23:59 Intake Total 1149.83 / 1149.83 866.88 / 866.88 380.62 / 380.62 Output Total 0 / 0 Balance 1149.83 / 1149.83 866.88 / 866.88 380.62 / 380.62 Microbiology Past 72 Hours 04/26/19 Unknown Tissue - Abdominal Gram Stain - Final 04/26/19 Unknown Tissue - Abdominal Wound Culture - Final Proteus mirabilis Pseudomonas aeroginosa Staphylococcus aureus 04/26/19 Unknown Tissue - Abdominal Anaerobic Culture - Preliminary Checking for anaerobes, further studies to follow. Laboratory Results 04/29/19 16:21: POC Glucose 289 H 04/29/19 21:36: POC Glucose 312 H 04/30/19 07:08: Sodium 132 L, Potassium 5.1, Chloride 99, Carbon Dioxide 20.0 L, BUN 60 H, Creatinine 6.87 H, Estim Creat Clear Calc 7.47, Est GFR (MDRD) Af Amer 8 L, Est GFR (MDRD) Non-Af 7 L, BUN/Creatinine Ratio 8.7 L, Glucose 241 H, Calcium 8.5, Phosphorus 6.8 H, Albumin 2.2 L 04/30/19 07:08: WBC 10.4, RBC 2.87 L, Hgb 8.7 L, Hct 27.6 L, MCV 96.2, MCH 30.3, MCHC 31.5 L, RDW Std Deviation 58.3 H, RDW Coeff of Perico 16.6 H, Plt Count 197, MPV 11.6 04/30/19 08:12: POC Glucose 214 H 04/30/19 13:04: POC Glucose 148 H Current Medications Acetaminophen (Tylenol) 650 mg PO Q6H PRN PRN PRN Reason: Non-cardiac pain (mod-severe) Last Admin: 04/28/19 07:35 Dose: 650 mg Documented by: Hydrocodone Bitart/Acetaminophen ([place] 5mg-325mg) 1 - 2 tablet PO Q4H PRN PRN PRN Reason: Pain Score 4-10/10 Last Admin: 04/30/19 13:13 Dose: 2 tablet Documented by: Al Hydroxide/Mg Hydroxide (Mylanta Ii) 15 - 30 ml PO Q4H PRN PRN PRN Reason: INDIGESTION Albuterol Sulfate (Ventolin Aerosols) 2.5 mg INHALATION Q2H PRN PRN PRN Reason: dyspnea, wheezing Atorvastatin Calcium (Lipitor) 20 mg PO QHS [facility] Last Admin: 04/29/19 21:39 Dose: 20 mg Documented by: Buspirone HCl (Buspar) 5 mg PO TID [facility] Last Admin: 04/30/19 13:08 Dose: 5 mg Documented by: Carvedilol (Coreg) 12.5 mg PO BID [facility] Last Admin: 04/30/19 13:07 Dose: 12.5 mg Documented by: Dextrose (D50w Syringe) 0 gm IV X1 PRN; Protocol PRN Reason: Hypoglycemia Gabapentin (Neurontin) 400 mg PO TIDCM [facility] Last Admin: 04/30/19 13:08 Dose: 400 mg Documented by: Glucagon () 1 mg IM .X1 PRN PRN Reason: Hypoglycemia Heparin Sodium (Porcine) (Heparin Na) 0 unit IV UD PRN; Protocol Hydralazine HCl (Apresoline Iv) 10 mg IV Q4H PRN PRN PRN Reason: SBP > 160 Hydromorphone HCl (Dilaudid Inj) 1 mg IV DAILY PRN PRN PRN Reason: Pain Score 6-10/10 Piperacillin Sod/Tazobactam (Sod 3.375 gm/ Sodium Chloride) 50 mls @ 12.5 mls/hr IV Q12 [facility] Last Admin: 04/30/19 13:21 Dose: 12.5 mls/hr Documented by: Sodium Chloride () 250 mls @ 15 mls/hr IV .[id number] PRN PRN Reason: Saline Flush Last Infusion: 04/29/19 05:03 Dose: Infused Documented by: Heparin Sodium/Dextrose () 25,000 units in 250 mls @ 16 mls/hr IV .[id number] [facility]; Protocol Insulin Glargine (Lantus ([facility])) 37 units SC DAILY [facility] Last Admin: 04/30/19 08:14 Dose: 37 units Documented by: Insulin Human Lispro (Humalog Kwikpen ([facility])) 12 unit SC TIDAC [facility] Last Admin: 04/30/19 13:07 Dose: 12 units Documented by: Insulin Human Lispro (Humalog Kwikpen ([facility])) 0 unit SC ACHS [facility]; Protocol Last Admin: 04/30/19 13:07 Dose: Not Given Documented by: Magnesium Hydroxide (Milk Of Magnesia) 30 ml PO DAILY PRN PRN Reason: Constipation Melatonin (Melatonin) 3 mg PO QHS PRN PRN Reason: SLEEP Montelukast Sodium (Singulair) 10 mg PO QHS [facility] Last Admin: 04/29/19 21:38 Dose: 10 mg Documented by: Morphine Sulfate () 2 - 4 mg IV Q4H PRN PRN PRN Reason: Pain Score 1-10/10 Last Admin: 04/29/19 10:33 Dose: 2 mg Documented by: Nutritional Formula (Fernando - [place] Flavor) 1 packet PO BIDCM [facility] Last Admin: 04/30/19 13:06 Dose: 1 packet Documented by: Ondansetron HCl (Zofran) 4 mg IV Q8H PRN PRN PRN Reason: NAUSEA/VOMITING Pantoprazole Sodium (Protonix) 20 mg PO DAILY [facility] Last Admin: 04/30/19 13:07 Dose: 20 mg Documented by: Polyethylene Glycol (Miralax) 34 gm PO X1 PRN PRN Reason: Bowel Movement Prednisone () 30 mg PO 1200 [facility] Last Admin: 04/30/19 13:08 Dose: 30 mg Documented by: Sertraline HCl (Zoloft) 100 mg PO DAILY SHAHANA Last Admin: 04/30/19 13:07 Dose: 100 mg Documented by: Sevelamer Carbonate (Renvela) 3,200 mg PO TIDCM [facility] Sodium Chloride () 10 - 40 ml IV UD PRN PRN Reason: SALINE FLUSH Last Admin: 04/30/19 13:21 Dose: 10 ml Documented by: Assessment/Plan Hospitalist note: I am seeing this patient in conjunction with Kathi Steele. I independently seen and examined the patient. Progress note above and laboratory data reviewed and I concur with the above treatment plan. This morning, patient was worried about going home while we are not sure if the dialysis catheter will be working properly. She complains of very severe pain upon wound dressing change and she mentioned that morphine is not working especially on dressing change. Her abdominal pain is getting worse with any type of movement. Her vital signs are stable. - Physical Exam General: Alert, Oriented x3, Cooperative, No apparent distress. HEENT: Atraumatic, PERRLA, EOMI. Neck: Supple, No JVD, Negative Carotid Bruits, Trachea Midline, Thyroid Normal. Lungs: Diminished breath sounds bilateral, otherwise clear, No rhonchi, No wheeze, No rales. Cardiovascular: Regular rate, Regular Rhythm, Normal S1, Normal S2, PMI Normal. Abdomen: Bowel Sounds Present, Soft, lower abdominal tenderness, wound VAC in place, non-Distended, No Hepato-splenomegaly. Extremities: No clubbing, No cyanosis, edema Skin: No rashes, lower abdominal wound with wound VAC in place. Neurological: Cranial nerves are intact. Vital Signs are stable. Assessment and plan: #1 lower/right lateral abdominal wall nonhealing infected diabetic necrotic ulcer/abscesses: Secondary to finances, status post incision, drainage and excisional debridement of the skin, subcutaneous tissue and fascia as well as abdominal panniculectomy, status post wound VAC insertion, postoperative day 4. She is on IV Zosyn. Wound culture revealed Proteus mirabilis, Pseudomonas aeruginosa and MSSA. She has been afebrile, no leukocytosis. Patient is complaining of severe pain upon wound dressing change. Dr. Salamanca is on the case. Plan to continue same treatment, start IV Dilaudid PRN before wound dressing change. #2 acute right leg DVT: Involving right distal femoral vein and tibioperoneal trunk. Started on Eliquis yesterday but because of the possibility that patient may need placement of dialysis catheter, Eliquis will be discontinued. Plan to start IV heparin drip. #3 ESRD on hemodialysis: Dialysis catheter was not working properly according to the dialysis nurse and plan is to reassess on when patient is going for the next dialysis. Dialysis catheter may need to be changed if it continued to work improperly. #4 other chronic medical problems: Stable, continue current medication as above. This note was generated with [employer] software. It may contain incorrect words, spelling, and punctuation that were not noted in checking the note before signing. Code Visit Inpatient E&M: 05394 Subs Hosp L2
[2019-04-30] MEDS: Morphine 2 MG/ML Syringe IV (14:48)
[2019-04-30] MEDS: HEPARIN/D5w 25,000 UNITS 25,000 UNITS/250 ML IV.SOLN. 16 UNITS IV (15:21)
[2019-04-30 15:26] LABS: Bedside Glucose 152 mg/dL (70-110)
[2019-04-30 15:28] LABS: International Normalized Ratio 1.3
[2019-04-30 15:29] LABS: Partial Thromboplast Time 31.5 Seconds (24.1-36.2)
--- NOTE | 2019-04-30 16:21 | CHAPLAIN ---
Type of Pastoral Visit _x__ Initial Visit ___ Follow-up Visit ___ On-call Visit ___ General Patient Visit ___ Spiritual Assessment ___ Family Conference ___ Bereavement ___ Rapid Response ___ Code Blue ___ Other (describe below) Pastoral Care Referral From _x__ Patient _x__ Family ___ Nurse ___ Physician ___ Disability Services Coordinator ___ Plastic Machine Operator ___ Other (describe below) Sacrament/Intervention _x__ Active listening ___ Anointing ___ Pentecostalism ___ Bereavement ___ Communion _x__ Thais exploration ___ _x__ Life review _x__ Prayer ___ Reconciliation ___ Sacrament of Sick _x__ Supportive presence ___ Wedding ___ Other (describe below) Pastoral Comments spouse of patient requested visit of title investigator; long talk with patient and then directed to spouse as well; issues are also emotional, marital, and spiritual; patient and spouse are open to ongoing spiritual support
[2019-04-30] MEDS: SEVELAMER CARBONATE 800 MG TABLET 3200 MG PO (17:21)
[2019-04-30 17:36] LABS: Bedside Glucose 197 mg/dL (70-110)
[2019-04-30 21:34] LABS: Partial Thromboplast Time 110.9 Seconds (24.1-36.2)
[2019-04-30] MEDS: Atorvastatin Calcium 20 MG Tablet PO (21:44)
[2019-04-30] MEDS: Montelukast 10 MG Tablet PO (21:44)
[2019-04-30 21:56] LABS: Bedside Glucose 309 mg/dL (70-110)
[2019-05-01] VITALS (13 sets, daily range): BP systolic 128–163; BP diastolic 60–76; PULSE 58–72; RESP 16–18; TEMP 36.3–36.8; O2SAT 94–98
[2019-05-01] MEDS: HYDROcodone Bitartrate/Apap 5/325 Tablet PO ×2 (03:35→19:02)
[2019-05-01 03:42] LABS: Mean Corp Hgb Conc 32.1 g/dL (32-36); Mean Corpuscular Hgb 30.6 pg (27.0-32.0); Mean Corpuscular Volume 95.2 fL (81-99); Mean Platelet Vol. 10.9 fl (6.2-12.0); Platelet Count 165 K/mm3 (150-450); RBC Distribution Width CV 16.6 % (11.6-14.6); RBC Distribution Width SD 57.1 fl (35.1-43.9); Red Blood Count 2.94 M/mm3 (4.2-5.4); White Blood Count 12.8 K/mm3 (4.4-11.0)
[2019-05-01 03:50] LABS: Partial Thromboplast Time 77.3 Seconds (24.1-36.2)
[2019-05-01 04:40] LABS: Anion Gap 12 (5-15); BUN 53 mg/dL (7-18); Calcium,Total 8.3 mg/dL (8.5-10.1); Chloride 98 mmol/L (98-107); Creatinine, Serum 5.32 mg/dL (0.55-1.02); EST Glomerular Filtration Rate 9 mL/min (>60); Est Glom Filt Rate - Afr Amer 11 mL/min (>60); Estimated Creatinine Clearance 9.65 ml/min; Glucose 268 mg/dL (74-106); Potassium 5.1 mmol/L (3.5-5.1); Sodium Level 132 mmol/L (136-145)
[2019-05-01] MEDS: busPIRone 5 MG Tablet PO ×3 (05:36→22:46)
[2019-05-01 08:16] LABS: Bedside Glucose 215 mg/dL (70-110)
[2019-05-01] MEDS: Insulin Lispro 100 UNIT/ML INSULN.PEN 12 UNIT SC ×3 (08:41→17:42)
[2019-05-01] MEDS: Insulin Lispro 100 UNIT/ML INSULN.PEN SC ×4 (08:41→22:41)
--- NOTE | 2019-05-01 08:41 | PN.RENAL_ITS ---
Patient Problems: Active and Suspected Problems (Last Updated 09/19/18 @ 07:24 by Rema Ocampo) Wound, open, abdominal wall, anterior (Acute) Subjective: placed on heparin gtt for DVT. Wound vac applied on abdominal wound - Physical Exam Vitals/I&O's: Vital Signs Temp Pulse Resp BP Pulse Ox 97.3 F L 63 16 163/71 H 96 05/01/19 07:50 05/01/19 07:50 05/01/19 07:50 05/01/19 07:50 05/01/19 07:50 Oxygen Flow Rate (L/min) 2 Oxygen Delivery Method Room Air Weight: 122.6 kg Body Mass Index (BMI) 44.8 Intake and Output for Last 24 Hours 04/29/19 04/30/19 05/01/19 23:59 23:59 23:59 Intake Total 866.88 / 866.88 1350.62 / 1350.62 170 / 170 Output Total 75 / 75 Balance 866.88 / 866.88 1275.62 / 1275.62 170 / 170 General: Alert, Oriented x3, Cooperative Neck: Supple Lungs: Clear to auscultation Cardiovascular: Regular rate Abdomen: Bowel Sounds Present, Soft, Obese, Tender Extremities: Edema Psych/Mental Status: Normal Affect, Alert and oriented to time, place, person, mood and affect Microbiology Past 72 Hours 04/26/19 Unknown Tissue - Abdominal Gram Stain - Final 04/26/19 Unknown Tissue - Abdominal Wound Culture - Final Proteus mirabilis Pseudomonas aeroginosa Staphylococcus aureus 04/26/19 Unknown Tissue - Abdominal Anaerobic Culture - Preliminary Checking for anaerobes, further studies to follow. Laboratory Results 04/30/19 08:12: POC Glucose 214 H 04/30/19 13:04: POC Glucose 148 H 04/30/19 14:30: PT 16.0 H, INR 1.3, APTT 31.5 04/30/19 15:05: POC Glucose 152 H 04/30/19 17:20: POC Glucose 197 H 04/30/19 21:02: APTT 110.9 H* 04/30/19 21:40: POC Glucose 309 H 05/01/19 03:30: WBC 12.8 H, RBC 2.94 L, Hgb 9.0 L, Hct 28.0 L, MCV 95.2, MCH 30.6, MCHC 32.1, RDW Std Deviation 57.1 H, RDW Coeff of Perico 16.6 H, Plt Count 165, MPV 10.9 05/01/19 03:30: Sodium 132 L, Potassium 5.1, Chloride 98, Carbon Dioxide 22.0, Anion Gap 12, BUN 53 H, Creatinine 5.32 H, Estim Creat Clear Calc 9.65, Est GFR (MDRD) Af Amer 11 L, Est GFR (MDRD) Non-Af 9 L, BUN/Creatinine Ratio 10.0, Glucose 268 H, Calcium 8.3 L 05/01/19 03:30: APTT 77.3 H 05/01/19 08:09: POC Glucose 215 H Current Medications Acetaminophen (Tylenol) 650 mg PO Q6H PRN PRN PRN Reason: Non-cardiac pain (mod-severe) Last Admin: 04/28/19 07:35 Dose: 650 mg Documented by: Hydrocodone Bitart/Acetaminophen ([place] 5mg-325mg) 1 - 2 tablet PO Q4H PRN PRN PRN Reason: Pain Score 4-10/10 Last Admin: 05/01/19 03:35 Dose: 2 tablet Documented by: Al Hydroxide/Mg Hydroxide (Mylanta Ii) 15 - 30 ml PO Q4H PRN PRN PRN Reason: INDIGESTION Albuterol Sulfate (Ventolin Aerosols) 2.5 mg INHALATION Q2H PRN PRN PRN Reason: dyspnea, wheezing Atorvastatin Calcium (Lipitor) 20 mg PO QHS [facility] Last Admin: 04/30/19 21:44 Dose: 20 mg Documented by: Buspirone HCl (Buspar) 5 mg PO TID [facility] Last Admin: 05/01/19 05:36 Dose: 5 mg Documented by: Carvedilol (Coreg) 12.5 mg PO BID [facility] Last Admin: 04/30/19 21:43 Dose: 12.5 mg Documented by: Dextrose (D50w Syringe) 0 gm IV X1 PRN; Protocol PRN Reason: Hypoglycemia Gabapentin (Neurontin) 400 mg PO TIDCM [facility] Last Admin: 04/30/19 17:21 Dose: 400 mg Documented by: Glucagon () 1 mg IM .X1 PRN PRN Reason: Hypoglycemia Heparin Sodium (Porcine) (Heparin Na) 0 unit IV UD PRN; Protocol Hydralazine HCl (Apresoline Iv) 10 mg IV Q4H PRN PRN PRN Reason: SBP > 160 Hydromorphone HCl (Dilaudid Inj) 1 mg IV DAILY PRN PRN PRN Reason: Pain Score 6-10/10 Piperacillin Sod/Tazobactam (Sod 3.375 gm/ Sodium Chloride) 50 mls @ 12.5 mls/hr IV Q12 [facility] Last Infusion: 05/01/19 01:44 Dose: Infused Documented by: Sodium Chloride () 250 mls @ 15 mls/hr IV .[id number] PRN PRN Reason: Saline Flush Last Infusion: 04/29/19 05:03 Dose: Infused Documented by: Heparin Sodium/Dextrose () 25,000 units in 250 mls @ 16 mls/hr IV .[id number] [facility]; Protocol Last Titration: 04/30/19 23:36 Dose: 1,300 units/hr, 13 mls/hr Documented by: Insulin Glargine (Lantus (Bkc)) 37 units SC DAILY [facility] Last Admin: 04/30/19 08:14 Dose: 37 units Documented by: Insulin Human Lispro (Humalog Kwikpen (Bkc)) 12 unit SC TIDAC [facility] Last Admin: 04/30/19 17:21 Dose: 12 units Documented by: Insulin Human Lispro (Humalog Kwikpen (Bkc)) 0 unit SC ACHS [facility]; Protocol Last Admin: 04/30/19 21:44 Dose: 4 u Documented by: Magnesium Hydroxide (Milk Of Magnesia) 30 ml PO DAILY PRN PRN Reason: Constipation Melatonin (Melatonin) 3 mg PO QHS PRN PRN Reason: SLEEP Montelukast Sodium (Singulair) 10 mg PO QHS [facility] Last Admin: 04/30/19 21:44 Dose: 10 mg Documented by: Morphine Sulfate () 2 - 4 mg IV Q4H PRN PRN PRN Reason: Pain Score 1-10/10 Last Admin: 04/30/19 14:48 Dose: 2 mg Documented by: Nutritional Formula ([place]ern[place] - [place] Flavor) 1 packet PO BIDCM [facility] Last Admin: 04/30/19 17:21 Dose: 1 packet Documented by: Ondansetron HCl (Zofran) 4 mg IV Q8H PRN PRN PRN Reason: NAUSEA/VOMITING Pantoprazole Sodium (Protonix) 20 mg PO DAILY [facility] Last Admin: 04/30/19 13:07 Dose: 20 mg Documented by: Polyethylene Glycol (Miralax) 34 gm PO X1 PRN PRN Reason: Bowel Movement Prednisone () 30 mg PO 1200 [facility] Last Admin: 04/30/19 13:08 Dose: 30 mg Documented by: Sertraline HCl (Zoloft) 100 mg PO DAILY [facility] Last Admin: 04/30/19 13:07 Dose: 100 mg Documented by: Sevelamer Carbonate (Renvela) 3,200 mg PO TIDCM [facility] Last Admin: 04/30/19 17:21 Dose: 3,200 mg Documented by: Sodium Chloride () 10 - 40 ml IV UD PRN PRN Reason: SALINE FLUSH Last Admin: 04/30/19 14:48 Dose: 20 ml Documented by: Medical Necessity - Tobacco Use Smoking Status: Never smoker Tobacco Use: Non-smoker Assessment/Plan All Active Problems (Last Updated 09/19/18 @ 07:24 by Rema Ocampo) Necrotizing soft tissue infection (Acute) Abdominal wall pain in right flank (Acute) Skin necrosis (Acute) Calciphylaxis (Acute) Cutaneous abscess of abdominal wall (Acute) Wound, open, abdominal wall, anterior (Acute) Problem with dialysis access (Acute) 1. ESRD HD THS. 2. Abdominal wall abscess, skin necrosis s/p debridement and wound vac 3. DM2 primary mgmt 4. HTN stable 5. Anemia parag 6. hyperphosphatemia, stop calcium based binders, switched to renvela. 7. 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
[2019-05-01] MEDS: HEPARIN/D5w 25,000 UNITS 25,000 UNITS/250 ML IV.SOLN. 13 UNITS IV (08:49)
[2019-05-01] MEDS: Gabapentin 400 MG Capsule PO ×3 (09:04→17:41)
[2019-05-01] MEDS: SEVELAMER CARBONATE 800 MG TABLET 3200 MG PO ×3 (09:04→17:38)
[2019-05-01] MEDS: Carvedilol 12.5 MG Tablet PO ×2 (09:05→22:46)
[2019-05-01] MEDS: Sertraline 100 MG Tablet PO (09:08)
[2019-05-01] MEDS: Pantoprazole Sodium 20 MG Tablet PO (09:08)
[2019-05-01] MEDS: fentaNYL 25 MCG Patch TRANSDERM. (10:06)
[2019-05-01 10:14] LABS: Phosphorus 5.9 mg/dL (2.5-4.9)
[2019-05-01] MEDS: HYDROmorphone 1 MG/ML Syringe IV (10:15)
[2019-05-01] MEDS: 0.9% Saline Lock 10 ML Syringe IV ×2 (10:16→13:42)
[2019-05-01 11:50] LABS: Bedside Glucose 164 mg/dL (70-110)
--- NOTE | 2019-05-01 12:30 | PN_ITS ---
<Kathi Steele - Last Filed: 05/01/19 13:06> Patient Problems: Active and Suspected Problems (Last Updated 09/19/18 @ 07:24 by Rema Ocampo) Wound, open, abdominal wall, anterior (Acute) Subjective: Patient seen and examined. Patient reports anxiety regarding anticipation of pain during wound VAC/dressing change. Patient started on fentanyl patch. Denies other current complaints. - Physical Exam Vitals/I&O's: Vital Signs Temp Pulse Resp BP Pulse Ox 97.3 F L 65 16 163/71 H 95 05/01/19 07:50 05/01/19 11:01 05/01/19 07:50 05/01/19 07:50 05/01/19 08:50 Oxygen Flow Rate (L/min) 2 Oxygen Delivery Method Room Air Weight: 270 lb 4.587 oz Body Mass Index (BMI) 44.8 Intake and Output for Last 24 Hours 04/29/19 04/30/19 05/01/19 23:59 23:59 23:59 Intake Total 866.88 / 866.88 1350.62 / 1350.62 931.72 / 931.72 Output Total 75 / 75 Balance 866.88 / 866.88 1275.62 / 1275.62 931.72 / 931.72 General: Alert, Oriented x3, Cooperative HEENT: Atraumatic, PERRLA, EOMI, Normocephalic Oral: Dry Mucosa Neck: Supple, No JVD, Negative Carotid Bruits Lungs: Clear to auscultation, Normal air movement Cardiovascular: Regular rate, Regular Rhythm, Normal S1, Normal S2, No murmurs Abdomen: Bowel Sounds Present, Soft, Non Tender, Non-Distended, Obese, - - Wound VAC lower abdomen in place Extremities: No clubbing, No cyanosis, No edema, Capillary Refill Less than 3 Seconds Skin: No rashes, No breakdown Musculoskeletal: No Tenderness to Palpation of Joints or Extremities Neurological: Cranial nerves II-XII grossly intact, - - Paraplegia Psych/Mental Status: Anxious Microbiology Past 72 Hours 04/26/19 Unknown Tissue - Abdominal Gram Stain - Final 04/26/19 Unknown Tissue - Abdominal Wound Culture - Final Proteus mirabilis Pseudomonas aeroginosa Staphylococcus aureus 04/26/19 Unknown Tissue - Abdominal Anaerobic Culture - Final Anaerobic cocci Laboratory Results 04/30/19 08:12: POC Glucose 214 H 04/30/19 13:04: POC Glucose 148 H 04/30/19 14:30: PT 16.0 H, INR 1.3, APTT 31.5 04/30/19 15:05: POC Glucose 152 H 04/30/19 17:20: POC Glucose 197 H 04/30/19 21:02: APTT 110.9 H* 04/30/19 21:40: POC Glucose 309 H 05/01/19 03:30: WBC 12.8 H, RBC 2.94 L, Hgb 9.0 L, Hct 28.0 L, MCV 95.2, MCH 30.6, MCHC 32.1, RDW Std Deviation 57.1 H, RDW Coeff of Perico 16.6 H, Plt Count 165, MPV 10.9 05/01/19 03:30: Sodium 132 L, Potassium 5.1, Chloride 98, Carbon Dioxide 22.0, Anion Gap 12, BUN 53 H, Creatinine 5.32 H, Estim Creat Clear Calc 9.65, Est GFR (MDRD) Af Amer 11 L, Est GFR (MDRD) Non-Af 9 L, BUN/Creatinine Ratio 10.0, Glucose 268 H, Calcium 8.3 L 05/01/19 03:30: APTT 77.3 H 05/01/19 03:30: Phosphorus 5.9 H 05/01/19 08:09: POC Glucose 215 H 05/01/19 09:03: APTT 100.0 H* 05/01/19 11:43: POC Glucose 164 H Current Medications Acetaminophen (Tylenol) 650 mg PO Q6H PRN PRN PRN Reason: Non-cardiac pain (mod-severe) Last Admin: 04/28/19 07:35 Dose: 650 mg Documented by: Hydrocodone Bitart/Acetaminophen ([place] 5mg-325mg) 1 - 2 tablet PO Q4H PRN PRN PRN Reason: Pain Score 4-10/10 Last Admin: 05/01/19 03:35 Dose: 2 tablet Documented by: Al Hydroxide/Mg Hydroxide (Mylanta Ii) 15 - 30 ml PO Q4H PRN PRN PRN Reason: INDIGESTION Albuterol Sulfate (Ventolin Aerosols) 2.5 mg INHALATION Q2H PRN PRN PRN Reason: dyspnea, wheezing Atorvastatin Calcium (Lipitor) 20 mg PO QHS [facility] Last Admin: 04/30/19 21:44 Dose: 20 mg Documented by: Buspirone HCl (Buspar) 5 mg PO TID [facility] Last Admin: 05/01/19 05:36 Dose: 5 mg Documented by: Carvedilol (Coreg) 12.5 mg PO BID [facility] Last Admin: 05/01/19 09:05 Dose: 12.5 mg Documented by: Dextrose (D50w Syringe) 0 gm IV X1 PRN; Protocol PRN Reason: Hypoglycemia Fentanyl (Duragesic Patch) 25 mcg TRANSDERM. Q3D [facility] Last Admin: 05/01/19 10:06 Dose: 25 mcg Documented by: Gabapentin (Neurontin) 400 mg PO TIDCM [facility] Last Admin: 05/01/19 09:04 Dose: 400 mg Documented by: Glucagon () 1 mg IM .X1 PRN PRN Reason: Hypoglycemia Heparin Sodium (Porcine) (Heparin Na) 0 unit IV UD PRN; Protocol Hydralazine HCl (Apresoline Iv) 10 mg IV Q4H PRN PRN PRN Reason: SBP > 160 Hydromorphone HCl (Dilaudid Inj) 1 mg IV DAILY PRN PRN PRN Reason: Pain Score 6-10/10 Last Admin: 05/01/19 10:15 Dose: 1 mg Documented by: Piperacillin Sod/Tazobactam (Sod 3.375 gm/ Sodium Chloride) 50 mls @ 12.5 mls/hr IV Q12 [facility] Last Admin: 05/01/19 10:27 Dose: 12.5 mls/hr Documented by: Sodium Chloride () 250 mls @ 15 mls/hr IV .[id number] PRN PRN Reason: Saline Flush Last Infusion: 04/29/19 05:03 Dose: Infused Documented by: Heparin Sodium/Dextrose () 25,000 units in 250 mls @ 16 mls/hr IV .[id number] [facility]; Protocol Last Titration: 05/01/19 11:40 Dose: 1,100 units/hr, 11 mls/hr Documented by: Insulin Glargine (Lantus (Bkc)) 37 units SC DAILY [facility] Last Admin: 05/01/19 09:05 Dose: 37 units Documented by: Insulin Human Lispro (Humalog Kwikpen (Bkc)) 12 unit SC TIDAC [facility] Last Admin: 05/01/19 08:41 Dose: 12 units Documented by: Insulin Human Lispro (Humalog Kwikpen (Bkc)) 0 unit SC ACHS [facility]; Protocol Last Admin: 05/01/19 08:41 Dose: 2 u Documented by: Magnesium Hydroxide (Milk Of Magnesia) 30 ml PO DAILY PRN PRN Reason: Constipation Melatonin (Melatonin) 3 mg PO QHS PRN PRN Reason: SLEEP Montelukast Sodium (Singulair) 10 mg PO QHS [facility] Last Admin: 04/30/19 21:44 Dose: 10 mg Documented by: Nutritional Formula ([place]ern[place] - [place] Flavor) 1 packet PO BIDCM [facility] Last Admin: 05/01/19 09:04 Dose: 1 packet Documented by: Ondansetron HCl (Zofran) 4 mg IV Q8H PRN PRN PRN Reason: NAUSEA/VOMITING Pantoprazole Sodium (Protonix) 20 mg PO DAILY [facility] Last Admin: 05/01/19 09:08 Dose: 20 mg Documented by: Polyethylene Glycol (Miralax) 34 gm PO X1 PRN PRN Reason: Bowel Movement Prednisone () 30 mg PO 1200 [facility] Last Admin: 04/30/19 13:08 Dose: 30 mg Documented by: Sertraline HCl (Zoloft) 100 mg PO DAILY [facility] Last Admin: 05/01/19 09:08 Dose: 100 mg Documented by: Sevelamer Carbonate (Renvela) 3,200 mg PO TIDCM [facility] Last Admin: 05/01/19 09:04 Dose: 3,200 mg Documented by: Sodium Chloride () 10 - 40 ml IV UD PRN PRN Reason: SALINE FLUSH Last Admin: 05/01/19 10:16 Dose: 10 ml Documented by: Medical Necessity - Tobacco Use Smoking Status: Never smoker Tobacco Use: Non-smoker Assessment/Plan All Active Problems (Last Updated 09/19/18 @ 07:24 by Rema Ocampo) Necrotizing soft tissue infection (Acute) Abdominal wall pain in right flank (Acute) Skin necrosis (Acute) Calciphylaxis (Acute) Cutaneous abscess of abdominal wall (Acute) Wound, open, abdominal wall, anterior (Acute) Problem with dialysis access (Acute) 1. 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 Wound RN consult. Wound VAC in place. PRN pain regimen. Continue IV Zosyn. Tissue culture positive for Proteus, Pseudomonas, staph and anaerobic cocci. Add vancomycin. Consult ID. SNF at discharge when medically stable. 2. Acute right leg DVT-initially placed on Eliquis which is now on hold due to possible need for dialysis catheter change. Heparin drip. 3. End-stage renal disease on hemodialysis Monday, , Monday- nephrology consulted, Dr. Lew. Left chest dialysis catheter reported to not be working correctly. Cathflo administered by business administration program chair. Plan to reassess on . If catheter continues to not be working properly on , may plan for catheter change. 4. Hypertension-stable, continue home Coreg, Lasix, hydralazine, losartan regimen. 5. Hyperlipidemia-continue statin. 6. Type 2 diabetes [id number] AC at bedtime with sliding scale insulin. 7. Morbid obesity-encouraged diet lifestyle modifications. 8. Anxiety/depression-continue home BuSpar, sertraline regimen. 9. 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 PT/OT. 10. Anemia of chronic disease-stable, trend CBC. 11. GERD-continue PPI. DVT prophylaxis-heparin drip This patient was seen by MANAV Harris under the supervision of Dr. Naylor. <Toma Naylor E - Last Filed: 05/01/19 13:40> - Physical Exam Vitals/I&O's: Vital Signs Temp Pulse Resp BP Pulse Ox 97.3 F L 65 16 163/71 H 95 05/01/19 07:50 05/01/19 11:01 05/01/19 07:50 05/01/19 07:50 05/01/19 08:50 Oxygen Flow Rate (L/min) 2 Oxygen Delivery Method Room Air Weight: 270 lb 4.587 oz Body Mass Index (BMI) 44.8 Intake and Output for Last 24 Hours 04/29/19 04/30/19 05/01/19 23:59 23:59 23:59 Intake Total 866.88 / 866.88 1350.62 / 1350.62 931.72 / 931.72 Output Total 75 / 75 Balance 866.88 / 866.88 1275.62 / 1275.62 931.72 / 931.72 Microbiology Past 72 Hours 04/26/19 Unknown Tissue - Abdominal Gram Stain - Final 04/26/19 Unknown Tissue - Abdominal Wound Culture - Final Proteus mirabilis Pseudomonas aeroginosa Staphylococcus aureus 04/26/19 Unknown Tissue - Abdominal Anaerobic Culture - Final Anaerobic cocci Laboratory Results 04/30/19 08:12: POC Glucose 214 H 04/30/19 13:04: POC Glucose 148 H 04/30/19 14:30: PT 16.0 H, INR 1.3, APTT 31.5 04/30/19 15:05: POC Glucose 152 H 04/30/19 17:20: POC Glucose 197 H 04/30/19 21:02: APTT 110.9 H* 04/30/19 21:40: POC Glucose 309 H 05/01/19 03:30: WBC 12.8 H, RBC 2.94 L, Hgb 9.0 L, Hct 28.0 L, MCV 95.2, MCH 30.6, MCHC 32.1, RDW Std Deviation 57.1 H, RDW Coeff of Perico 16.6 H, Plt Count 165, MPV 10.9 05/01/19 03:30: Sodium 132 L, Potassium 5.1, Chloride 98, Carbon Dioxide 22.0, Anion Gap 12, BUN 53 H, Creatinine 5.32 H, Estim Creat Clear Calc 9.65, Est GFR (MDRD) Af Amer 11 L, Est GFR (MDRD) Non-Af 9 L, BUN/Creatinine Ratio 10.0, Glucose 268 H, Calcium 8.3 L 05/01/19 03:30: APTT 77.3 H 05/01/19 03:30: Phosphorus 5.9 H 05/01/19 08:09: POC Glucose 215 H 05/01/19 09:03: APTT 100.0 H* 05/01/19 11:43: POC Glucose 164 H Current Medications Acetaminophen (Tylenol) 650 mg PO Q6H PRN PRN PRN Reason: Non-cardiac pain (mod-severe) Last Admin: 04/28/19 07:35 Dose: 650 mg Documented by: Hydrocodone Bitart/Acetaminophen ([place] 5mg-325mg) 1 - 2 tablet PO Q4H PRN PRN PRN Reason: Pain Score 4-10/10 Last Admin: 05/01/19 03:35 Dose: 2 tablet Documented by: Al Hydroxide/Mg Hydroxide (Mylanta Ii) 15 - 30 ml PO Q4H PRN PRN PRN Reason: INDIGESTION Albuterol Sulfate (Ventolin Aerosols) 2.5 mg INHALATION Q2H PRN PRN PRN Reason: dyspnea, wheezing Atorvastatin Calcium (Lipitor) 20 mg PO QHS [facility] Last Admin: 04/30/19 21:44 Dose: 20 mg Documented by: Buspirone HCl (Buspar) 5 mg PO TID [facility] Last Admin: 05/01/19 12:56 Dose: 5 mg Documented by: Carvedilol (Coreg) 12.5 mg PO BID [facility] Last Admin: 05/01/19 09:05 Dose: 12.5 mg Documented by: Dextrose (D50w Syringe) 0 gm IV X1 PRN; Protocol PRN Reason: Hypoglycemia Fentanyl (Duragesic Patch) 25 mcg TRANSDERM. Q3D [facility] Last Admin: 05/01/19 10:06 Dose: 25 mcg Documented by: Gabapentin (Neurontin) 400 mg PO TIDCM [facility] Last Admin: 05/01/19 12:50 Dose: 400 mg Documented by: Glucagon () 1 mg IM .X1 PRN PRN Reason: Hypoglycemia Heparin Sodium (Porcine) (Heparin Na) 0 unit IV UD PRN; Protocol Hydralazine HCl (Apresoline Iv) 10 mg IV Q4H PRN PRN PRN Reason: SBP > 160 Hydromorphone HCl (Dilaudid Inj) 1 mg IV DAILY PRN PRN PRN Reason: Pain Score 6-10/10 Last Admin: 05/01/19 10:15 Dose: 1 mg Documented by: Piperacillin Sod/Tazobactam (Sod 3.375 gm/ Sodium Chloride) 50 mls @ 12.5 mls/hr IV Q12 [facility] Last Admin: 05/01/19 10:27 Dose: 12.5 mls/hr Documented by: Sodium Chloride () 250 mls @ 15 mls/hr IV .[id number] PRN PRN Reason: Saline Flush Last Infusion: 04/29/19 05:03 Dose: Infused Documented by: Heparin Sodium/Dextrose () 25,000 units in 250 mls @ 16 mls/hr IV .[id number] [facility]; Protocol Last Titration: 05/01/19 11:40 Dose: 1,100 units/hr, 11 mls/hr Documented by: Vancomycin IV Pharmacy to Dose (1 ea/ Sodium Chloride) 500 mls @ 250 mls/hr IV X1 PRN; Protocol PRN Reason: Rx to Dose Insulin Glargine (Lantus (Bk)) 37 units SC DAILY [facility] Last Admin: 05/01/19 09:05 Dose: 37 units Documented by: Insulin Human Lispro (Humalog Kwikpen ([facility])) 12 unit SC TIDAC [facility] Last Admin: 05/01/19 12:47 Dose: 12 units Documented by: Insulin Human Lispro (Humalog Kwikpen ([facility])) 0 unit SC ACHS [facility]; Protocol Last Admin: 05/01/19 12:47 Dose: 1 u Documented by: Magnesium Hydroxide (Milk Of Magnesia) 30 ml PO DAILY PRN PRN Reason: Constipation Melatonin (Melatonin) 3 mg PO QHS PRN PRN Reason: SLEEP Montelukast Sodium (Singulair) 10 mg PO QHS [facility] Last Admin: 04/30/19 21:44 Dose: 10 mg Documented by: Nutritional Formula ([place] - [place] Flavor) 1 packet PO BIDCM [facility] Last Admin: 05/01/19 09:04 Dose: 1 packet Documented by: Ondansetron HCl (Zofran) 4 mg IV Q8H PRN PRN PRN Reason: NAUSEA/VOMITING Pantoprazole Sodium (Protonix) 20 mg PO DAILY [facility] Last Admin: 05/01/19 09:08 Dose: 20 mg Documented by: Polyethylene Glycol (Miralax) 34 gm PO X1 PRN PRN Reason: Bowel Movement Prednisone () 30 mg PO 1200 [facility] Last Admin: 05/01/19 12:50 Dose: 30 mg Documented by: Sertraline HCl (Zoloft) 100 mg PO DAILY [facility] Last Admin: 05/01/19 09:08 Dose: 100 mg Documented by: Sevelamer Carbonate (Renvela) 3,200 mg PO TIDCM [facility] Last Admin: 05/01/19 12:50 Dose: 3,200 mg Documented by: Sodium Chloride () 10 - 40 ml IV UD PRN PRN Reason: SALINE FLUSH Last Admin: 05/01/19 10:16 Dose: 10 ml Documented by: Assessment/Plan Hospitalist note: I am seeing this patient in conjunction with Kathi Steele. I independently seen and examined the patient. Progress note above and laboratory data reviewed and I concur with the above treatment plan. She is still having issues and anxiety regarding pain during dressing change and wound VAC. At this current time, she denies any significant pain we started her on fentanyl patch her vital signs are stable. - Physical Exam General: Alert, Oriented x3, Cooperative, No apparent distress. HEENT: Atraumatic, PERRLA, EOMI. Neck: Supple, No JVD, Negative Carotid Bruits, Trachea Midline, Thyroid Normal. Lungs: Diminished breath sounds bilateral, otherwise clear, No rhonchi, No wheeze, No rales. Cardiovascular: Regular rate, Regular Rhythm, Normal S1, Normal S2, PMI Normal. Abdomen: Bowel Sounds Present, Soft, lower abdominal tenderness, wound VAC in place, non-Distended, No Hepato-splenomegaly. Extremities: No clubbing, No cyanosis, edema Skin: No rashes, lower abdominal wound with wound VAC in place. Neurological: Cranial nerves are intact. Vital Signs are stable. Assessment and plan: #1 lower/right lateral abdominal wall nonhealing infected diabetic necrotic ulcer/abscesses: Secondary to finances, status post incision, drainage and excisional debridement of the skin, subcutaneous tissue and fascia as well as abdominal panniculectomy, status post wound VAC insertion, postoperative day 5. She is on IV Zosyn. Wound culture revealed Proteus mirabilis, Pseudomonas aeruginosa and MSSA. She has been afebrile, no leukocytosis. She is on IV Dilaudid and [place] PRN for pain, pain is not well controlled especially during wound VAC change and wound dressing change. Dr. Salamanca is on the case. Plan: Continue same treatment, start back for pain, infectious disease consult. #2 acute right leg DVT: Involving right distal femoral vein and tibioperoneal trunk. She is on IV heparin drip. #3 ESRD on hemodialysis: Dialysis catheter was not working properly according to the dialysis nurse and plan is to reassess tomorrow when patient is going for the next dialysis. Dialysis catheter may need to be changed if it continued to work improperly. #4 other chronic medical problems: Stable, continue current medication as above. This note was generated with [employer] dictation software. It may contain incorrect words, spelling, and punctuation that were not noted in checking the note before signing. Code Visit Inpatient E&M: 06723 Subs Hosp L2
[2019-05-01] MEDS: predniSONE 20 MG Tablet 30 MG PO (12:50)
--- NOTE | 2019-05-01 13:38 | NURSING ---
read and reviewed sn documentation
[2019-05-01] MEDS: Ondansetron 4 MG/2 ML Vial IV (13:42)
[2019-05-01 13:45] LABS: Bedside Glucose 190 mg/dL (70-110)
--- NOTE | 2019-05-01 14:41 | CON.PCM_ITS ---
Problem List (1) Necrotizing soft tissue infection Status: Acute Reason for Consult: abd wall infection Consulted by: Dr. Naylor History of Present Illness: The patient is a 59 year old F with ESRD, on TTSat HD via L chest permacath, presented with necrotic abd wound. Developed about 2 weeks after a velcro tab was rubbing for hours on her abd. Had severe pain, redness, skin breakdown. No fever or chills. No abx at [facility]. Admitted here, started vanc/zosyn, taken to OR 04/26/[address] Salamanca. Now vanc stopped today. Feeling ok, some trouble with HD access. Full ROS performed and neg except as noted above. - Medical History Past Medical History (Chronic Problems): Chronic Problems (Last Updated 09/19/18 @ 07:24 by Rema Ocampo) Intertrigo (Chronic) abdominal wall skin crease intertrigo Abdominal panniculus, symptomatic (Chronic) ESRD on dialysis (Chronic) Type 2 diabetes mellitus with other skin ulcer (Chronic) nonhealing infected diabetic ulcerated abscesses right lateral abdominal wall Anxiety and depression (Chronic) ESRD (end stage renal disease) (Chronic) Morbid obesity (Chronic) Chronic diastolic CHF (congestive heart failure) (Chronic) 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) Hyperlipidemia (Chronic) Chronic kidney disease (Chronic) HTN (hypertension) (Chronic) Obesity (Chronic) DM2 (diabetes mellitus, type 2) (Chronic) Allergies/Adverse Reactions: Allergies latex Allergy (Verified 04/25/19 13:59) Hives Sulfa (Sulfonamide Antibiotics) Allergy (Verified 04/25/19 13:59) Rash codeine Adverse Reaction (Verified 04/25/19 13:59) Confusion Home Medications: Ambulatory Orders Medication Instructions Recorded Montelukast [Singulair] 10 mg PO DAILY 10/29/13 Sertraline HCl 100 mg PO DAILY 06/14/18 Pantoprazole Sodium [Protonix] 20 mg PO DAILY 06/20/18 Atorvastatin Calcium [Lipitor] 20 mg PO QHS 07/28/18 Insulin Glargine,Hum.rec.anlog 60 unit SQ DAILY 10/04/18 [Basaglar Kwikpen U-100] Insulin Lispro [Humalog Kwikpen] 18 unit SQ QHS 10/04/18 predniSONE tablet 30 mg PO 1200 10/04/18 Sevelamer Carbonate [Renvela] 800 mg PO TID 01/19/19 calcium acetate 667 mg capsule 1,334 mg PO TID cap 04/03/19 multivitamin tablet 1 tab PO DAILY 04/03/19 Furosemide [Lasix] 80 mg PO BID 04/25/19 Insulin Lispro [Admelog Solostar] 25 unit SQ DAILY 04/25/19 Metoprolol Tartrate 12.5 mg PO BID 04/25/19 Mycophenolate Mofetil [Cellcept] 250 mg PO BID 04/25/19 Oxycodone HCl/Acetaminophen 1 tab PO Q6H PRN PRN 04/25/19 [Endocet 5-325 Tablet] Pregabalin [Lyrica] 75 mg PO TID 04/25/19 Sulfamethoxazole/Trimethoprim 1 ea PO MOWEFR 04/25/19 [Bactrim 400-80 mg Tablet] - Social History Tobacco Use: non-smoker Vital Signs Temp Pulse Resp BP Pulse Ox 98.1 F 66 17 156/60 H 95 05/01/19 13:39 05/01/19 13:39 05/01/19 13:39 05/01/19 13:39 05/01/19 13:39 Oxygen Flow Rate (L/min) 2 Oxygen Delivery Method Room Air Weight: 122.6 kg Body Mass Index (BMI) 44.8 Microbiology Past 72 Hours 04/26/19 Unknown Gram Stain - Final Tissue - Abdominal Wound Culture - Final Proteus mirabilis Pseudomonas aeroginosa Staphylococcus aureus Anaerobic Culture - Final Anaerobic cocci Laboratory Tests Past 24 Hrs 04/30/19 04/30/19 05/01/19 14:30 21:02 03:30 WBC 12.8 H RBC 2.94 L Hgb 9.0 L Hct 28.0 L MCV 95.2 MCH 30.6 MCHC 32.1 RDW Std Deviation 57.1 H RDW Coeff of Perico 16.6 H Plt Count 165 MPV 10.9 PT 16.0 H INR 1.3 APTT 31.5 110.9 H* Sodium Potassium Chloride Carbon Dioxide Anion Gap BUN Creatinine Estim Creat Clear Calc Est GFR (MDRD) Af Amer Est GFR (MDRD) Non-Af BUN/Creatinine Ratio Glucose Calcium Phosphorus 05/01/19 05/01/19 05/01/19 03:30 03:30 03:30 WBC RBC Hgb Hct MCV MCH MCHC RDW Std Deviation RDW Coeff of Perico Plt Count MPV PT INR APTT 77.3 H Sodium 132 L Potassium 5.1 Chloride 98 Carbon Dioxide 22.0 Anion Gap 12 BUN 53 H Creatinine 5.32 H Estim Creat Clear Calc 9.65 Est GFR (MDRD) Af Amer 11 L Est GFR (MDRD) Non-Af 9 L BUN/Creatinine Ratio 10.0 Glucose 268 H Calcium 8.3 L Phosphorus 5.9 H 05/01/19 09:03 WBC RBC Hgb Hct MCV MCH MCHC RDW Std Deviation RDW Coeff of Perico Plt Count MPV PT INR APTT 100.0 H* Sodium Potassium Chloride Carbon Dioxide Anion Gap BUN Creatinine Estim Creat Clear Calc Est GFR (MDRD) Af Amer Est GFR (MDRD) Non-Af BUN/Creatinine Ratio Glucose Calcium Phosphorus - Other Studies Radiology: [] reviewed Other Studies: [] Route of nutrition/ use of supplements: [] Nutritional Intake: [] IV Site: [] Vargas Catheter: [] - Physical Exam General: Alert, Oriented x3, Cooperative, No apparent distress HEENT: Atraumatic, PERRLA, EOMI Neck: Supple, No Nodes Lungs: Clear to auscultation, Normal air movement Cardiovascular: Regular rate, Regular Rhythm Abdomen: Soft, Distended, Obese Extremities: Edema Skin: Ulcer/ Wound - reviewed photos, wound vac in place over abd IV Site: Central Line, without redness Musculoskeletal: No Tenderness to Palpation of Joints or Extremities Neurological: Cranial nerves II-XII grossly intact - Assessment/Plan Antibiotics: [] Assessment/Plan: [] Active and Suspected Problems (Last Updated 09/19/18 @ 07:24 by Rema Ocampo) Wound, open, abdominal wall, anterior (Acute) Necrotic abd wall wound and abscess - now s/p I&D by Dr. Salamanca 04/26. Surg cx with mssa, proteus, pseudomonas, and anaerobes. On zosyn. Vanc has been stopped. She does have some oral options for abx, but would favor her leaving on cefepime dosed with HD and po flagyl. Plan on one week course after disc harge for total 2 weeks of abx after having good surgical source control. Will follow, thank you. D/w primary team.
[2019-05-01 16:29] LABS: Partial Thromboplast Time 64.9 Seconds (24.1-36.2)
[2019-05-01 16:50] LABS: Bedside Glucose 181 mg/dL (70-110)
[2019-05-01 22:37] LABS: Partial Thromboplast Time 71.4 Seconds (24.1-36.2)
[2019-05-01] MEDS: Montelukast 10 MG Tablet PO (22:46)
[2019-05-01] MEDS: Atorvastatin Calcium 20 MG Tablet PO (22:46)
[2019-05-02] VITALS (13 sets, daily range): BP systolic 131–148; BP diastolic 68–71; PULSE 59–79; RESP 9–20; TEMP 36.4–36.6; O2SAT 95–97
[2019-05-02 00:56] LABS: Bedside Glucose 314 mg/dL (70-110)
[2019-05-02] MEDS: HYDROcodone Bitartrate/Apap 5/325 Tablet PO ×2 (01:40→07:33)
[2019-05-02] MEDS: busPIRone 5 MG Tablet PO ×3 (05:04→23:10)
[2019-05-02] MEDS: 0.9% Saline Lock 10 ML Syringe IV ×3 (05:04→13:19)
[2019-05-02 05:44] LABS: Hematocrit 25.6 % (37-47); Hemoglobin 8.2 g/dL (12.0-15.0); Mean Corpuscular Hgb 30.3 pg (27.0-32.0); Mean Corpuscular Volume 94.5 fL (81-99); Mean Platelet Vol. 11.3 fl (6.2-12.0); Platelet Count 207 K/mm3 (150-450); RBC Distribution Width CV 16.6 % (11.6-14.6); RBC Distribution Width SD 57.1 fl (35.1-43.9); Red Blood Count 2.71 M/mm3 (4.2-5.4); White Blood Count 14.9 K/mm3 (4.4-11.0)
[2019-05-02 05:57] LABS: Partial Thromboplast Time 76.9 Seconds (24.1-36.2)
[2019-05-02 05:58] LABS: Anion Gap 11 (5-15); BUN 85 mg/dL (7-18); BUN/Creat Ratio 13.4 RATIO (10-20); Calcium,Total 8.8 mg/dL (8.5-10.1); Chloride 96 mmol/L (98-107); Creatinine, Serum 6.33 mg/dL (0.55-1.02); EST Glomerular Filtration Rate 7 mL/min (>60); Est Glom Filt Rate - Afr Amer 9 mL/min (>60); Estimated Creatinine Clearance 8.11 ml/min; Glucose 274 mg/dL (74-106); Potassium 5.8 mmol/L (3.5-5.1); Sodium Level 131 mmol/L (136-145)
[2019-05-02] MEDS: SEVELAMER CARBONATE 800 MG TABLET 3200 MG PO ×3 (08:08→17:03)
[2019-05-02] MEDS: Insulin Lispro 100 UNIT/ML INSULN.PEN SC ×4 (08:09→23:08)
[2019-05-02] MEDS: Insulin Lispro 100 UNIT/ML INSULN.PEN 12 UNIT SC ×3 (08:09→17:05)
[2019-05-02 08:20] LABS: Bedside Glucose 256 mg/dL (70-110)
--- NOTE | 2019-05-02 09:03 | PN.RENAL_ITS ---
Patient Problems: Active and Suspected Problems (Last Updated 09/19/18 @ 07:24 by Rema Ocampo) Wound, open, abdominal wall, anterior (Acute) Subjective: seen on dialysis, catheter fxn working well after TPA instilled. Atttempt 3L fluid removal - Physical Exam Vitals/I&O's: Vital Signs Temp Pulse Resp BP Pulse Ox 97.7 F L 60 17 148/70 H 96 05/02/19 08:01 05/02/19 08:01 05/02/19 08:01 05/02/19 08:01 05/02/19 08:01 Oxygen Flow Rate (L/min) 2 Oxygen Delivery Method Room Air Weight: 124.5 kg Body Mass Index (BMI) 44.8 Intake and Output for Last 24 Hours 04/30/19 05/01/19 05/02/19 23:59 23:59 23:59 Intake Total 1350.62 / 1350.62 1722.22 / 2122.22 642.21 / 642.21 Output Total 75 / 75 0 / 0 Balance 1275.62 / 1275.62 1722.22 / 2122.22 642.21 / 642.21 General: Alert, Oriented x3, Cooperative Microbiology Past 72 Hours 04/26/19 Unknown Tissue - Abdominal Gram Stain - Final 04/26/19 Unknown Tissue - Abdominal Wound Culture - Final Proteus mirabilis Pseudomonas aeroginosa Staphylococcus aureus 04/26/19 Unknown Tissue - Abdominal Anaerobic Culture - Final Anaerobic cocci Laboratory Results 04/28/19 06:10: Hep Bs Antigen Pending 05/01/19 03:30: Phosphorus 5.9 H 05/01/19 09:03: APTT 100.0 H* 05/01/19 11:43: POC Glucose 164 H 05/01/19 13:38: POC Glucose 190 H 05/01/19 15:50: APTT 64.9 H 05/01/19 16:44: POC Glucose 181 H 05/01/19 22:10: APTT 71.4 H 05/01/19 22:39: POC Glucose 314 H 05/02/19 05:17: WBC 14.9 H, RBC 2.71 L, Hgb 8.2 L, Hct 25.6 L, MCV 94.5, MCH 30.3, MCHC 32.0, RDW Std Deviation 57.1 H, RDW Coeff of Perico 16.6 H, Plt Count 207, MPV 11.3 05/02/19 05:17: Sodium 131 L, Potassium 5.8 H, Chloride 96 L, Carbon Dioxide 24.0, Anion Gap 11, BUN 85 H, Creatinine 6.33 H, Estim Creat Clear Calc 8.11, Est GFR (MDRD) Af Amer 9 L, Est GFR (MDRD) Non-Af 7 L, BUN/Creatinine Ratio 13.4, Glucose 274 H, Calcium 8.8 05/02/19 05:17: APTT 76.9 H 05/02/19 07:56: POC Glucose 256 H Current Medications Acetaminophen (Tylenol) 650 mg PO Q6H PRN PRN PRN Reason: Non-cardiac pain (mod-severe) Last Admin: 04/28/19 07:35 Dose: 650 mg Documented by: Hydrocodone Bitart/Acetaminophen ([place] 5mg-325mg) 1 - 2 tablet PO Q4H PRN PRN PRN Reason: Pain Score 4-10/10 Last Admin: 05/02/19 07:33 Dose: 2 tablet Documented by: Al Hydroxide/Mg Hydroxide (Mylanta Ii) 15 - 30 ml PO Q4H PRN PRN PRN Reason: INDIGESTION Albuterol Sulfate (Ventolin Aerosols) 2.5 mg INHALATION Q2H PRN PRN PRN Reason: dyspnea, wheezing Atorvastatin Calcium (Lipitor) 20 mg PO QHS [facility] Last Admin: 05/01/19 22:46 Dose: 20 mg Documented by: Buspirone HCl (Buspar) 5 mg PO TID [facility] Last Admin: 05/02/19 05:04 Dose: 5 mg Documented by: Carvedilol (Coreg) 12.5 mg PO BID [facility] Last Admin: 05/01/19 22:46 Dose: 12.5 mg Documented by: Dextrose (D50w Syringe) 0 gm IV X1 PRN; Protocol PRN Reason: Hypoglycemia Fentanyl (Duragesic Patch) 25 mcg TRANSDERM. Q3D [facility] Last Admin: 05/01/19 10:06 Dose: 25 mcg Documented by: Gabapentin (Neurontin) 400 mg PO TIDCM [facility] Last Admin: 05/02/19 08:13 Dose: Not Given Documented by: Glucagon () 1 mg IM .X1 PRN PRN Reason: Hypoglycemia Heparin Sodium (Porcine) (Heparin Na) 0 unit IV UD PRN; Protocol Heparin Sodium (Porcine) () 0 units IV X1 ONE Stop: 05/02/19 12:01 Hydralazine HCl (Apresoline Iv) 10 mg IV Q4H PRN PRN PRN Reason: SBP > 160 Hydromorphone HCl (Dilaudid Inj) 1 mg IV DAILY PRN PRN PRN Reason: Pain Score 6-10/10 Last Admin: 05/01/19 10:15 Dose: 1 mg Documented by: Piperacillin Sod/Tazobactam (Sod 3.375 gm/ Sodium Chloride) 50 mls @ 12.5 mls/hr IV Q12 [facility] Last Infusion: 05/02/19 03:00 Dose: Infused Documented by: Sodium Chloride () 250 mls @ 15 mls/hr IV .[id number] PRN PRN Reason: Saline Flush Last Infusion: 04/29/19 05:03 Dose: Infused Documented by: Heparin Sodium/Dextrose () 25,000 units in 250 mls @ 16 mls/hr IV .[id number] [facility]; Protocol Last Titration: 05/02/19 06:33 Dose: 1,100 units/hr, 11 mls/hr Documented by: Insulin Glargine (Lantus (Bkc)) 37 units SC DAILY [facility] Last Admin: 05/01/19 09:05 Dose: 37 units Documented by: Insulin Human Lispro (Humalog Kwikpen (Bkc)) 12 unit SC TIDAC [facility] Last Admin: 05/02/19 08:09 Dose: 12 units Documented by: Insulin Human Lispro (Humalog Kwikpen (Bkc)) 0 unit SC ACHS [facility]; Protocol Last Admin: 05/02/19 08:09 Dose: 3 u Documented by: Magnesium Hydroxide (Milk Of Magnesia) 30 ml PO DAILY PRN PRN Reason: Constipation Melatonin (Melatonin) 3 mg PO QHS PRN PRN Reason: SLEEP Montelukast Sodium (Singulair) 10 mg PO QHS [facility] Last Admin: 05/01/19 22:46 Dose: 10 mg Documented by: Nutritional Formula (Fernando - [place] Flavor) 1 packet PO BIDCM [facility] Last Admin: 05/02/19 08:08 Dose: 1 packet Documented by: Ondansetron HCl (Zofran) 4 mg IV Q8H PRN PRN PRN Reason: NAUSEA/VOMITING Last Admin: 05/01/19 13:42 Dose: 4 mg Documented by: Pantoprazole Sodium (Protonix) 20 mg PO DAILY [facility] Last Admin: 05/01/19 09:08 Dose: 20 mg Documented by: Polyethylene Glycol (Miralax) 34 gm PO X1 PRN PRN Reason: Bowel Movement Prednisone () 30 mg PO 1200 [facility] Last Admin: 05/01/19 12:50 Dose: 30 mg Documented by: Sertraline HCl (Zoloft) 100 mg PO DAILY [facility] Last Admin: 05/01/19 09:08 Dose: 100 mg Documented by: Sevelamer Carbonate (Renvela) 3,200 mg PO TIDCM [facility] Last Admin: 05/02/19 08:08 Dose: 3,200 mg Documented by: Sodium Chloride () 10 - 40 ml IV UD PRN PRN Reason: SALINE FLUSH Last Admin: 05/02/19 05:15 Dose: 10 ml Documented by: Medical Necessity - Tobacco Use Smoking Status: Never smoker Tobacco Use: Non-smoker Assessment/Plan All Active Problems (Last Updated 09/19/18 @ 07:24 by Rema Ocampo) Necrotizing soft tissue infection (Acute) Abdominal wall pain in right flank (Acute) Skin necrosis (Acute) Calciphylaxis (Acute) Cutaneous abscess of abdominal wall (Acute) Wound, open, abdominal wall, anterior (Acute) Problem with dialysis access (Acute) 1. ESRD HD THS. Seen on dialysis . Catheter working well with TPA instilled in port after last tx. 2. Abdominal wall abscess, skin necrosis s/p debridement and wound vac. antibx per ID 3. DM2 primary mgmt 4. HTN stable 5. Anemia parag 6. hyperphosphatemia, stop calcium based binders, switched to renvela. 7. 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
[2019-05-02 09:25] LABS: Hepatitis B Surface Antigen Non-Reactive (Nonreactive)
--- NOTE | 2019-05-02 09:41 | PN_ITS ---
Patient Problems: Active and Suspected Problems (Last Updated 09/19/18 @ 07:24 by Rema Ocampo) Wound, open, abdominal wall, anterior (Acute) Subjective: Chief complaint: Follow-up after admission for lower/right lateral abdominal wall nonhealing infected diabetic necrotic ulcer/abscess/calciphylaxis and acute right leg DVT. Patient seen and examined. No acute events overnight. She is still very anxious and worried about the pain during wound VAC change and dressing change. She denies any other complaints. Her vital signs are stable. - Physical Exam Vitals/I&O's: Vital Signs Temp Pulse Resp BP Pulse Ox 97.7 F L 60 17 148/70 H 96 05/02/19 08:01 05/02/19 08:01 05/02/19 08:01 05/02/19 08:01 05/02/19 08:01 Oxygen Flow Rate (L/min) 2 Oxygen Delivery Method Room Air Weight: 274 lb 7.608 oz Body Mass Index (BMI) 44.8 Intake and Output for Last 24 Hours 04/30/19 05/01/19 05/02/19 23:59 23:59 23:59 Intake Total 1350.62 / 1350.62 1722.22 / 2122.22 642.21 / 642.21 Output Total 75 / 75 0 / 0 Balance 1275.62 / 1275.62 1722.22 / 2122.22 642.21 / 642.21 General: Alert, Oriented x3, Cooperative, - - Anxious, tearful. HEENT: Atraumatic, PERRLA, EOMI, Normocephalic Oral: Moist Mucosa, No Gingival or Mucosal Lesions/ Ulcerations Neck: Supple, No JVD, Negative Carotid Bruits, Trachea Midline, Thyroid Normal Size and Texture Lungs: Clear to auscultation, Normal air movement, No rhonchi, No wheeze, No rales, Diminished Cardiovascular: Regular rate, Regular Rhythm, Normal S1, Normal S2, PMI Normal Abdomen: Bowel Sounds Present, Soft, Non-Distended, No Hepato-splenomegaly, Obese, Tender Extremities: No clubbing, No cyanosis, Edema Skin: No rashes, Ulcer/ Wound Lymphatic: No Cervical, Supraclavicular, or Inguinal Adenopathy Neurological: Cranial nerves II-XII grossly intact, Motor Exam 5/5 strength throughout Psych/Mental Status: Normal Affect, Appropriate, Alert and oriented to time, place, person, mood and affect Microbiology Past 72 Hours 04/26/19 Unknown Tissue - Abdominal Gram Stain - Final 04/26/19 Unknown Tissue - Abdominal Wound Culture - Final Proteus mirabilis Pseudomonas aeroginosa Staphylococcus aureus 04/26/19 Unknown Tissue - Abdominal Anaerobic Culture - Final Anaerobic cocci Laboratory Results 04/28/19 06:10: Hep Bs Antigen Non-Reactive 05/01/19 03:30: Phosphorus 5.9 H 05/01/19 09:03: APTT 100.0 H* 05/01/19 11:43: POC Glucose 164 H 05/01/19 13:38: POC Glucose 190 H 05/01/19 15:50: APTT 64.9 H 05/01/19 16:44: POC Glucose 181 H 05/01/19 22:10: APTT 71.4 H 05/01/19 22:39: POC Glucose 314 H 05/02/19 05:17: WBC 14.9 H, RBC 2.71 L, Hgb 8.2 L, Hct 25.6 L, MCV 94.5, MCH 30.3, MCHC 32.0, RDW Std Deviation 57.1 H, RDW Coeff of Perico 16.6 H, Plt Count 207, MPV 11.3 05/02/19 05:17: Sodium 131 L, Potassium 5.8 H, Chloride 96 L, Carbon Dioxide 24.0, Anion Gap 11, BUN 85 H, Creatinine 6.33 H, Estim Creat Clear Calc 8.11, Est GFR (MDRD) Af Amer 9 L, Est GFR (MDRD) Non-Af 7 L, BUN/Creatinine Ratio 13.4, Glucose 274 H, Calcium 8.8 05/02/19 05:17: APTT 76.9 H 05/02/19 07:56: POC Glucose 256 H Current Medications Acetaminophen (Tylenol) 650 mg PO Q6H PRN PRN PRN Reason: Non-cardiac pain (mod-severe) Last Admin: 04/28/19 07:35 Dose: 650 mg Documented by: Hydrocodone Bitart/Acetaminophen ([place] 5mg-325mg) 1 - 2 tablet PO Q4H PRN PRN PRN Reason: Pain Score 4-10/10 Last Admin: 05/02/19 07:33 Dose: 2 tablet Documented by: Al Hydroxide/Mg Hydroxide (Mylanta Ii) 15 - 30 ml PO Q4H PRN PRN PRN Reason: INDIGESTION Albuterol Sulfate (Ventolin Aerosols) 2.5 mg INHALATION Q2H PRN PRN PRN Reason: dyspnea, wheezing Alteplase, Recombinant (Cathflo Activase) 2 mg IV X1 ONE Stop: 05/02/19 12:01 Alteplase, Recombinant (Cathflo Activase) 2 mg IV X1 ONE Stop: 05/02/19 12:01 Atorvastatin Calcium (Lipitor) 20 mg PO QHS [facility] Last Admin: 05/01/19 22:46 Dose: 20 mg Documented by: Buspirone HCl (Buspar) 5 mg PO TID [facility] Last Admin: 05/02/19 05:04 Dose: 5 mg Documented by: Carvedilol (Coreg) 12.5 mg PO BID [facility] Last Admin: 05/01/19 22:46 Dose: 12.5 mg Documented by: Dextrose (D50w Syringe) 0 gm IV X1 PRN; Protocol PRN Reason: Hypoglycemia Fentanyl (Duragesic Patch) 25 mcg TRANSDERM. Q3D [facility] Last Admin: 05/01/19 10:06 Dose: 25 mcg Documented by: Gabapentin (Neurontin) 400 mg PO TIDCM [facility] Last Admin: 05/02/19 08:13 Dose: Not Given Documented by: Glucagon () 1 mg IM .X1 PRN PRN Reason: Hypoglycemia Heparin Sodium (Porcine) (Heparin Na) 0 unit IV UD PRN; Protocol Heparin Sodium (Porcine) () 0 units IV X1 ONE Stop: 05/02/19 12:01 Hydralazine HCl (Apresoline Iv) 10 mg IV Q4H PRN PRN PRN Reason: SBP > 160 Hydromorphone HCl (Dilaudid Inj) 1 mg IV DAILY PRN PRN PRN Reason: Pain Score 6-1010 Last Admin: 05/01/19 10:15 Dose: 1 mg Documented by: Piperacillin Sod/Tazobactam (Sod 3.375 gm/ Sodium Chloride) 50 mls @ 12.5 mls/hr IV Q12 [facility] Last Infusion: 05/02/19 03:00 Dose: Infused Documented by: Sodium Chloride () 250 mls @ 15 mls/hr IV .[id number] PRN PRN Reason: Saline Flush Last Infusion: 04/29/19 05:03 Dose: Infused Documented by: Heparin Sodium/Dextrose () 25,000 units in 250 mls @ 16 mls/hr IV .[id number] [facility]; Protocol Last Titration: 05/02/19 06:33 Dose: 1,100 units/hr, 11 mls/hr Documented by: Insulin Glargine (Lantus (Bk)) 37 units SC DAILY [facility] Last Admin: 05/01/19 09:05 Dose: 37 units Documented by: Insulin Human Lispro (Humalog Kwikpen ([facility])) 12 unit SC TIDAC [facility] Last Admin: 05/02/19 08:09 Dose: 12 units Documented by: Insulin Human Lispro (Humalog Kwikpen ([facility])) 0 unit SC ACHS [facility]; Protocol Last Admin: 05/02/19 08:09 Dose: 3 u Documented by: Magnesium Hydroxide (Milk Of Magnesia) 30 ml PO DAILY PRN PRN Reason: Constipation Melatonin (Melatonin) 3 mg PO QHS PRN PRN Reason: SLEEP Montelukast Sodium (Singulair) 10 mg PO QHS [facility] Last Admin: 05/01/19 22:46 Dose: 10 mg Documented by: Nutritional Formula ([place] - [place] Flavor) 1 packet PO BIDCM [facility] Last Admin: 05/02/19 08:08 Dose: 1 packet Documented by: Ondansetron HCl (Zofran) 4 mg IV Q8H PRN PRN PRN Reason: NAUSEA/VOMITING Last Admin: 05/01/19 13:42 Dose: 4 mg Documented by: Pantoprazole Sodium (Protonix) 20 mg PO DAILY [facility] Last Admin: 05/01/19 09:08 Dose: 20 mg Documented by: Polyethylene Glycol (Miralax) 34 gm PO X1 PRN PRN Reason: Bowel Movement Prednisone () 30 mg PO 1200 [facility] Last Admin: 05/01/19 12:50 Dose: 30 mg Documented by: Sertraline HCl (Zoloft) 100 mg PO DAILY [facility] Last Admin: 05/01/19 09:08 Dose: 100 mg Documented by: Sevelamer Carbonate (Renvela) 3,200 mg PO TIDCM [facility] Last Admin: 05/02/19 08:08 Dose: 3,200 mg Documented by: Sodium Chloride () 10 - 40 ml IV UD PRN PRN Reason: SALINE FLUSH Last Admin: 05/02/19 05:15 Dose: 10 ml Documented by: Medical Necessity - Tobacco Use Smoking Status: Never smoker Tobacco Use: Non-smoker Assessment/Plan All Active Problems (Last Updated 09/19/18 @ 07:24 by Rema Ocampo) Necrotizing soft tissue infection (Acute) Abdominal wall pain in right flank (Acute) Skin necrosis (Acute) Calciphylaxis (Acute) Cutaneous abscess of abdominal wall (Acute) Wound, open, abdominal wall, anterior (Acute) Problem with dialysis access (Acute) This is a 59 years old female patient presented to the emergency room because of lower abdominal wall wound, found to have lower abdominal wall nonhealing infected diabetic necrotic ulcer/abscess due to calciphylaxis and she underwent surgery and postoperatively, she developed acute right leg DVT. #1 lower/right lateral abdominal wall nonhealing infected diabetic necrotic ulcer/abscesses: Secondary to calciphylaxis, status post incision, drainage and excisional debridement of the skin, subcutaneous tissue and fascia as well as abdominal panniculectomy, status post wound VAC insertion, postoperative day 6. She is on IV Zosyn. Wound culture revealed Proteus mirabilis, Pseudomonas aeruginosa and MSSA. She has been afebrile, no leukocytosis. Appreciate infectious disease input. Patient has been on IV Dilaudid and [place] PRN for pain, started on fentanyl patch yesterday. She has been very anxious and afraid of wound VAC or wound dressing change. Plan to continue same treatment, DC to detention facility tomorrow. #2 acute right leg DVT: Involving right distal femoral vein and tibioperoneal trunk. She is on IV heparin drip. Decision was made that the dialysis catheter is working now no plan for change. Plan: DC IV heparin drip, start oral Eliquis twice daily. #3 ESRD on hemodialysis: Today, patient is going under hemodialysis now and reportedly, dialysis catheter has been working fine so far. No plan to change. Plan to continue dialysis according to nephrology. #4 Type 2 diabetes mellitus: Blood sugar has been under fair control. Continue Lantus, Humalog 3 times daily as well as sliding scale. #5 hypertension: Blood pressure stable, continue Coreg. #6 chronic anemia: Due to anemia of chronic disease. Baseline hemoglobin around 8 to 9 g/dL, today's hemoglobin is 8.2 g/dL, stable at baseline. #7 chronic inflammatory demyelinating polyneuropathy: On chronic oral prednisone, continued. #8 anxiety/depression: Continue BuSpar and Zoloft. #9 hyperlipidemia: Continue statins. #10 GERD: Continue PPI. #11 DVT prophylaxis: Started on Eliquis. This note was generated with [employer] dictation software. It may contain incorrect words, spelling, and punctuation that were not noted in checking the note before signing. Code Visit Inpatient E&M: 57918 Subs Hosp L2
--- NOTE | 2019-05-02 10:39 | PCM.PN.ID ---
Patient Problems: Active and Suspected Problems (Last Updated 09/19/18 @ 07:24 by Rema Ocampo) Wound, open, abdominal wall, anterior (Acute) Subjective: HD this AM working well. No fever. No n/v/d. - Physical Exam Vitals/I&O's: Vital Signs Temp Pulse Resp BP Pulse Ox 97.7 F L 60 17 148/70 H 96 05/02/19 08:01 05/02/19 08:01 05/02/19 08:01 05/02/19 08:01 05/02/19 08:01 Oxygen Flow Rate (L/min) 2 Oxygen Delivery Method Room Air Weight: 124.5 kg Body Mass Index (BMI) 44.8 Intake and Output for Last 24 Hours 04/30/19 05/01/19 05/02/19 23:59 23:59 23:59 Intake Total 1350.62 / 1350.62 1722.22 / 2122.22 642.21 / 642.21 Output Total 75 / 75 0 / 0 Balance 1275.62 / 1275.62 1722.22 / 2122.22 642.21 / 642.21 General: Alert, Cooperative, No apparent distress Lungs: Clear to auscultation, Normal air movement Cardiovascular: Regular rate, Regular Rhythm Abdomen: Soft, Non-Distended Skin: Ulcer/ Wound - wound vac in place Microbiology Past 72 Hours 04/26/19 Unknown Tissue - Abdominal Gram Stain - Final 04/26/19 Unknown Tissue - Abdominal Wound Culture - Final Proteus mirabilis Pseudomonas aeroginosa Staphylococcus aureus 04/26/19 Unknown Tissue - Abdominal Anaerobic Culture - Final Anaerobic cocci Laboratory Results 04/28/19 06:10: Hep Bs Antigen Non-Reactive 05/01/19 11:43: POC Glucose 164 H 05/01/19 13:38: POC Glucose 190 H 05/01/19 15:50: APTT 64.9 H 05/01/19 16:44: POC Glucose 181 H 05/01/19 22:10: APTT 71.4 H 05/01/19 22:39: POC Glucose 314 H 05/02/19 05:17: WBC 14.9 H, RBC 2.71 L, Hgb 8.2 L, Hct 25.6 L, MCV 94.5, MCH 30.3, MCHC 32.0, RDW Std Deviation 57.1 H, RDW Coeff of Perico 16.6 H, Plt Count 207, MPV 11.3 05/02/19 05:17: Sodium 131 L, Potassium 5.8 H, Chloride 96 L, Carbon Dioxide 24.0, Anion Gap 11, BUN 85 H, Creatinine 6.33 H, Estim Creat Clear Calc 8.11, Est GFR (MDRD) Af Amer 9 L, Est GFR (MDRD) Non-Af 7 L, BUN/Creatinine Ratio 13.4, Glucose 274 H, Calcium 8.8 05/02/19 05:17: APTT 76.9 H 05/02/19 07:56: POC Glucose 256 H Current Medications Acetaminophen (Tylenol) 650 mg PO Q6H PRN PRN PRN Reason: Non-cardiac pain (mod-severe) Last Admin: 04/28/19 07:35 Dose: 650 mg Documented by: Hydrocodone Bitart/Acetaminophen ([place] 5mg-325mg) 1 - 2 tablet PO Q4H PRN PRN PRN Reason: Pain Score 4-10/10 Last Admin: 05/02/19 07:33 Dose: 2 tablet Documented by: Al Hydroxide/Mg Hydroxide (Mylanta Ii) 15 - 30 ml PO Q4H PRN PRN PRN Reason: INDIGESTION Albuterol Sulfate (Ventolin Aerosols) 2.5 mg INHALATION Q2H PRN PRN PRN Reason: dyspnea, wheezing Alteplase, Recombinant (Cathflo Activase) 2 mg IV X1 ONE Stop: 05/02/19 12:01 Alteplase, Recombinant (Cathflo Activase) 2 mg IV X1 ONE Stop: 05/02/19 12:01 Apixaban (Eliquis) 5 mg PO BID [facility] Atorvastatin Calcium (Lipitor) 20 mg PO QHS [facility] Last Admin: 05/01/19 22:46 Dose: 20 mg Documented by: Buspirone HCl (Buspar) 5 mg PO TID [facility] Last Admin: 05/02/19 05:04 Dose: 5 mg Documented by: Carvedilol (Coreg) 12.5 mg PO BID [facility] Last Admin: 05/01/19 22:46 Dose: 12.5 mg Documented by: Dextrose (D50w Syringe) 0 gm IV X1 PRN; Protocol PRN Reason: Hypoglycemia Fentanyl (Duragesic Patch) 25 mcg TRANSDERM. Q3D [facility] Last Admin: 05/01/19 10:06 Dose: 25 mcg Documented by: Gabapentin (Neurontin) 400 mg PO TIDCM [facility] Last Admin: 05/02/19 08:13 Dose: Not Given Documented by: Glucagon () 1 mg IM .X1 PRN PRN Reason: Hypoglycemia Heparin Sodium (Porcine) () 0 units IV X1 ONE Stop: 05/02/19 12:01 Hydralazine HCl (Apresoline Iv) 10 mg IV Q4H PRN PRN PRN Reason: SBP > 160 Hydromorphone HCl (Dilaudid Inj) 1 mg IV DAILY PRN PRN PRN Reason: Pain Score 6-10/10 Last Admin: 05/01/19 10:15 Dose: 1 mg Documented by: Piperacillin Sod/Tazobactam (Sod 3.375 gm/ Sodium Chloride) 50 mls @ 12.5 mls/hr IV Q12 [facility] Last Infusion: 05/02/19 03:00 Dose: Infused Documented by: Sodium Chloride () 250 mls @ 15 mls/hr IV .[id number] PRN PRN Reason: Saline Flush Last Infusion: 04/29/19 05:03 Dose: Infused Documented by: Insulin Glargine (Lantus (Bkc)) 37 units SC DAILY [facility] Last Admin: 05/01/19 09:05 Dose: 37 units Documented by: Insulin Human Lispro (Humalog Kwikpen (Bkc)) 12 unit SC TIDAC [facility] Last Admin: 05/02/19 08:09 Dose: 12 units Documented by: Insulin Human Lispro (Humalog Kwikpen (Bkc)) 0 unit SC ACHS [facility]; Protocol Last Admin: 05/02/19 08:09 Dose: 3 u Documented by: Magnesium Hydroxide (Milk Of Magnesia) 30 ml PO DAILY PRN PRN Reason: Constipation Melatonin (Melatonin) 3 mg PO QHS PRN PRN Reason: SLEEP Montelukast Sodium (Singulair) 10 mg PO QHS [facility] Last Admin: 05/01/19 22:46 Dose: 10 mg Documented by: Nutritional Formula ([place]ernando - [place] Flavor) 1 packet PO BIDCM [facility] Last Admin: 05/02/19 08:08 Dose: 1 packet Documented by: Ondansetron HCl (Zofran) 4 mg IV Q8H PRN PRN PRN Reason: NAUSEA/VOMITING Last Admin: 05/01/19 13:42 Dose: 4 mg Documented by: Pantoprazole Sodium (Protonix) 20 mg PO DAILY [facility] Last Admin: 05/01/19 09:08 Dose: 20 mg Documented by: Polyethylene Glycol (Miralax) 34 gm PO X1 PRN PRN Reason: Bowel Movement Prednisone () 30 mg PO 1200 [facility] Last Admin: 05/01/19 12:50 Dose: 30 mg Documented by: Sertraline HCl (Zoloft) 100 mg PO DAILY [facility] Last Admin: 05/01/19 09:08 Dose: 100 mg Documented by: Sevelamer Carbonate (Renvela) 3,200 mg PO TIDCM [facility] Last Admin: 05/02/19 08:08 Dose: 3,200 mg Documented by: Sodium Chloride () 10 - 40 ml IV UD PRN PRN Reason: SALINE FLUSH Last Admin: 05/02/19 05:15 Dose: 10 ml Documented by: Medical Necessity - Tobacco Use Smoking Status: Never smoker Tobacco Use: Non-smoker Route of nutrition/ use of supplements: [] Nutritional Intake: [] IV Site: [] Vargas Catheter: [] - Assessment/Plan Antibiotics: [] Assessment/Plan: [] Active and Suspected Problems (Last Updated 09/19/18 @ 07:24 by Rema Ocampo) Wound, open, abdominal wall, anterior (Acute) Necrotic abd wall wound and abscess - now s/p I&D by Dr. Salamanca 04/26. Surg cx with mssa, proteus, pseudomonas, and anaerobes. On zosyn. Vanc has been stopped. Plan for discharge will be one week of po cipro 500mg daily and augmentin 500mg daily. Will follow. D/w primary team.
[2019-05-02 11:41] LABS: Bedside Glucose 165 mg/dL (70-110)
--- NOTE | 2019-05-02 12:54 | CASEMGMT ---
Physician would like to send patient back to [facility] tomorrow. JOLIE spoke with Elizabeth at [facility] and she verified that they did receive insurance authorization for patient. SW let her know patient will be returning tomorrow. JOLIE then faxed updates to [facility]. JOLIE spoke with patient. SW let her know that she will be discharged back to [facility] tomorrow. She said she is aware as the physician told her this information. She said [facility] normally has her transported back and forth to dialysis via wc van. She has her own wheelchair in the room now. Plan: d/c back to [facility] tomorrow. Insurance has approved. Nadja MADRID
[2019-05-02] MEDS: Carvedilol 12.5 MG Tablet PO ×2 (13:02→23:08)
[2019-05-02] MEDS: Gabapentin 400 MG Capsule PO ×2 (13:02→17:03)
[2019-05-02] MEDS: predniSONE 20 MG Tablet 30 MG PO (13:03)
[2019-05-02] MEDS: Pantoprazole Sodium 20 MG Tablet PO (13:07)
[2019-05-02] MEDS: APIXABAN 5 MG TABLET PO ×2 (13:07→23:08)
[2019-05-02] MEDS: Sertraline 100 MG Tablet PO (13:07)
[2019-05-02] MEDS: LORazepam 1 MG Tablet PO (13:20)
--- NOTE | 2019-05-02 14:20 | CASEMGMT ---
Addendum entered by Nadja Castro 05/02/19 14:31: SW spoke with patient letting her know that SW did talk with Elizabeth at [facility] about either getting her a wc that can recline or sending her to dialysis via cot. SW told her Elizabeth has to check with a few people and will get back to SW. Patient said she has to go to dialysis on Monday so this needs to get figured out. SW told her SW understands this and that [facility] is aware. She asked what happens if they are not able to do this by Monday. SW told her we will cross that bridge when we come to it if we do come to it. SW told her SW will let her know when SW hears something. Nadja MADRID Original Note: JOLIE spoke with wound nurse who said patient's is asking about who can get patient a motorized wheelchair that can recline a little bit as it is difficult for patient to sit up in a wheelchair due to her abdominal wound. JOLIE called [facility] and spoke with Elizabeth as Anjlai is not in today. JOLIE told her the situation and asked if either they could get some sort of wc that reclines a little or if she could go to dialysis by cot the first couple of times. She said she would have to check on this and call SW back. Await return call. Nadja MADRID
--- NOTE | 2019-05-02 15:17 | CASEMGMT ---
JOLIE received a return call from Elizabeth at [facility] and she said she spoke with their child care center administrator. They feel if the physician feels it is medically necessary to go by cot then they would arrange cot transport to dialysis. JOLIE told her physician would likely be in agreement for cot at least for the 1st week and then re-evaluate. JOLIE told her SW will check with physician. SW let patient and her know this information. JOLIE will talk with physician. Nadja GARCIA MSW
[2019-05-02 17:15] LABS: Bedside Glucose 198 mg/dL (70-110)
[2019-05-02] MEDS: Montelukast 10 MG Tablet PO (23:09)
[2019-05-02] MEDS: Atorvastatin Calcium 20 MG Tablet PO (23:09)
[2019-05-03] VITALS (11 sets, daily range): BP systolic 110–143; BP diastolic 63–79; PULSE 61–72; RESP 9–16; TEMP 36.6–37.1; O2SAT 95–100
[2019-05-03 01:11] LABS: Bedside Glucose 198 mg/dL (70-110)
[2019-05-03] MEDS: busPIRone 5 MG Tablet PO ×2 (06:18→14:39)
[2019-05-03 07:12] LABS: Hematocrit 24.3 % (37-47); Hemoglobin 7.5 g/dL (12.0-15.0); Mean Corp Hgb Conc 30.9 g/dL (32-36); Mean Corpuscular Hgb 30.1 pg (27.0-32.0); Mean Corpuscular Volume 97.6 fL (81-99); POSITIVE COUNT YES; POSITIVE MORPHOLOGY YES; Platelet Count 212 K/mm3 (150-450); RBC Distribution Width CV 16.6 % (11.6-14.6); RBC Distribution Width SD 58.7 fl (35.1-43.9); Red Blood Count 2.49 M/mm3 (4.2-5.4); White Blood Count 16.5 K/mm3 (4.4-11.0)
[2019-05-03 07:14] LABS: Differential Indicated MANUAL DIFF
[2019-05-03 07:34] LABS: Albumin, Serum 2.4 g/dL (3.2-5.0); Anion Gap 10 (5-15); BUN 51 mg/dL (7-18); Calcium,Total 8.6 mg/dL (8.5-10.1); Chloride 99 mmol/L (98-107); Creatinine, Serum 3.93 mg/dL (0.55-1.02); EST Glomerular Filtration Rate 13 mL/min (>60); Est Glom Filt Rate - Afr Amer 15 mL/min (>60); Estimated Creatinine Clearance 13.06 ml/min; Glucose 237 mg/dL (74-106); Phosphorus 4.5 mg/dL (2.5-4.9); Potassium 4.7 mmol/L (3.5-5.1); Sodium Level 135 mmol/L (136-145)
[2019-05-03] MEDS: Gabapentin 400 MG Capsule PO ×2 (08:08→12:25)
[2019-05-03] MEDS: SEVELAMER CARBONATE 800 MG TABLET 3200 MG PO ×2 (08:08→12:26)
[2019-05-03] MEDS: Insulin Lispro 100 UNIT/ML INSULN.PEN 12 UNIT SC ×2 (08:10→12:26)
[2019-05-03] MEDS: Insulin Lispro 100 UNIT/ML INSULN.PEN SC ×2 (08:10→12:26)
[2019-05-03 08:16] LABS: Absolute Lymphocyte Count 0.83 X10^3/uL (0.83-4.51); Absolute Neutrophil Count 14.5 X10^3/uL (2.0-7.7); Eosinophil 1 % (0-5); Lymphocyte 5 % (19-41); Lymphocyte # 0.83 X10^3/ul (4.0); Monocyte 5 % (0-10); Neutrophil # 14.52 X10^3/uL (2.7-7.7); Neutrophil-Segmented 88 % (47-70); Platelet Estimate ADEQUATE (ADEQ); Promyelocyte 1 (0-0); Total Cells Counted 100 (MANUAL DIFF)
[2019-05-03 08:17] LABS: Anisocytosis 1+; Polychromasia RARE; Tear Drop Cell RARE
[2019-05-03 08:21] LABS: Bedside Glucose 208 mg/dL (70-110)
[2019-05-03] MEDS: Sertraline 100 MG Tablet PO (09:24)
[2019-05-03] MEDS: 0.9% Saline Lock 10 ML Syringe IV ×3 (09:24→14:39)
[2019-05-03] MEDS: HYDROcodone Bitartrate/Apap 5/325 Tablet PO (09:24)
[2019-05-03] MEDS: Pantoprazole Sodium 20 MG Tablet PO (09:24)
[2019-05-03] MEDS: Carvedilol 12.5 MG Tablet PO (09:24)
[2019-05-03] MEDS: APIXABAN 5 MG TABLET PO (09:25)
--- NOTE | 2019-05-03 09:33 | PCM.TXEXTCAR ---
- Diet 04/27/19 06:52 Diet: Renal - Carb-Controlled Dietary Modifications:: Low Potassium Restriction Is pt able to select menu?: Yes Diet Comments: 1800 calorie - Routine Orders/Code Status Code Status: Full Code - Wound(s) RIGHT LATERAL Wound Type: Pressure Injury RIGHT MEDIAL Wound Type: Pressure Injury RIGHT UMBILICUS Wound Type: Pressure Injury Coccyx Wound Type: Pressure Injury left lateral abdomen Wound Type: Pressure Injury mid abdomen Wound Type: Open Surgical Wound Dressing Change: KCI wound VAC left buttock Wound Type: Pressure Injury Dressing Change: Mepilex right buttock Wound Type: Pressure Injury Dressing Change: Mepilex - Suggestions for Active Care Change Position every (hours): 3 Hours to sit in a chair: 2 Times a day to sit in chair: 3 - Therapies Weight Bearing: Weight bearing as tolerated Physical Therapy: Eval and Treat Occupational Therapy: Eval and Treat - Allergies/Procedures Done in Hospital Allergies/Adverse Reactions: Allergies latex Allergy (Verified 04/25/19 13:59) Hives Sulfa (Sulfonamide Antibiotics) Allergy (Verified 04/25/19 13:59) Rash codeine Adverse Reaction (Verified 04/25/19 13:59) Confusion - Type of Care/Length of Stay Estimated LOS: Convalescent Care Less Than 30 days Type of Care Needed: Skilled Rehab Potential: Good Prognosis: Good - Additional Orders/Day of Discharge Additional Orders: 1-Patient will need to go on a flat bed from the half-way to the dialysis center because of the intractable lower abdominal pain secondary to the large lower abdominal wound. 2- wound VAC and wound care and dressing as per Dr. Salamanca recommendations. H&P will serve as current which was dated: 04/25/19 Day of Discharge: 05/03/19 - Dietary and Speech Recommendations Dietitian Recommendations/Changes: Suggest 1800 calorie; low K+; low Na & fluid restriction 1500 ml/day. D/C renal diet restriction as this limits protein per day & pt requires additional protein for wound healing. Rec 1 packet of Fernando BID for wound healing--order from pharmacy. - Follow Up Care Primary Care Physician: Marcela Kerr MD [Primary Care Provider] - Please follow up with your Primary Care Physician in: 2 weeks. Please Follow Up With: Terrence Salamanca MD When: as per him at the wound center. Please Follow Up With: Jillian Lew DO When: please call her office.
--- NOTE | 2019-05-03 10:43 | PN.RENAL_ITS ---
Patient Problems: Active and Suspected Problems (Last Updated 09/19/18 @ 07:24 by Rema Ocampo) Wound, open, abdominal wall, anterior (Acute) Subjective: Patient doing well overall. Hemoglobin dropped down to 7.5 g today. Suggested 1 unit of packed red cells. She is to be discharged on oral antibiotics for 1 week for her skin necrosis of her abdomen per ID recommendations. Hyperphosphatemia improved with increased binders - Physical Exam Vitals/I&O's: Vital Signs Temp Pulse Resp BP Pulse Ox 98.6 F 64 14 118/64 98 05/03/19 09:23 05/03/19 09:23 05/03/19 09:23 05/03/19 09:23 05/03/19 09:23 Oxygen Flow Rate (L/min) 2 Oxygen Delivery Method Room Air Weight: 120.1 kg Body Mass Index (BMI) 44.8 Intake and Output for Last 24 Hours 05/01/19 05/02/19 05/03/19 23:59 23:59 23:59 Intake Total 1722.22 / 2122.22 2087.85 / 2087.85 463.75 / 463.75 Output Total 2700 / 2700 Balance 1722.22 / 2122.22 -612.15 / -612.15 463.75 / 463.75 General: Alert, Oriented x3, Cooperative Lungs: Clear to auscultation Abdomen: Obese, - - Wound VAC applied Extremities: No edema Skin: Ulcer/ Wound - Lower abdomen Musculoskeletal: - - 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 Psych/Mental Status: Alert and oriented to time, place, person, mood and affect Microbiology Past 72 Hours 04/26/19 Unknown Tissue - Abdominal Gram Stain - Final 04/26/19 Unknown Tissue - Abdominal Wound Culture - Final Proteus mirabilis Pseudomonas aeroginosa Staphylococcus aureus 04/26/19 Unknown Tissue - Abdominal Anaerobic Culture - Final Anaerobic cocci Laboratory Results 05/02/19 11:33: POC Glucose 165 H 05/02/19 17:00: POC Glucose 198 H 05/02/19 23:01: POC Glucose 198 H 05/03/19 06:25: Sodium 135 L, Potassium 4.7, Chloride 99, Carbon Dioxide 26.0, Anion Gap 10, BUN 51 H, Creatinine 3.93 H, Estim Creat Clear Calc 13.06, Est GFR (MDRD) Af Amer 15 L, Est GFR (MDRD) Non-Af 13 L, BUN/Creatinine Ratio 13.0, Glucose 237 H, Calcium 8.6, Phosphorus 4.5, Albumin 2.4 L 05/03/19 06:25: WBC 16.5 H, RBC 2.49 L, Hgb 7.5 L, Hct 24.3 L, MCV 97.6, MCH 30.1, MCHC 30.9 L, RDW Std Deviation 58.7 H, RDW Coeff of Perico 16.6 H, Plt Count 212, MPV 11.0, Neut % (Auto) Not Reportable, Absolute Neuts (auto) 14.5 H, Absolute Lymphs (auto) 0.83, Total Counted 100, Neutrophils % (Manual) 88 H, Lymphocytes % (Manual) 5 L, Monocytes % (Manual) 5, Eosinophils % (Manual) 1, Promyelocytes % 1 H, Diff Path Review May foll, Platelet Estimate ADEQUATE, Plt Morphology Comment COMMENT, Polychromasia RARE, Anisocytosis 1+, Tear Drop Cells RARE 05/03/19 08:00: POC Glucose 208 H 05/03/19 08:40: Blood Type A POSITIVE, Antibody Screen NEGATIVE, Crossmatch See Detail Current Medications Acetaminophen (Tylenol) 650 mg PO Q6H PRN PRN PRN Reason: Non-cardiac pain (mod-severe) Last Admin: 04/28/19 07:35 Dose: 650 mg Documented by: Hydrocodone Bitart/Acetaminophen ([place] 5mg-325mg) 1 - 2 tablet PO Q4H PRN PRN PRN Reason: Pain Score 4-10/10 Last Admin: 05/03/19 09:24 Dose: 2 tablet Documented by: Al Hydroxide/Mg Hydroxide (Mylanta Ii) 15 - 30 ml PO Q4H PRN PRN PRN Reason: INDIGESTION Albuterol Sulfate (Ventolin Aerosols) 2.5 mg INHALATION Q2H PRN PRN PRN Reason: dyspnea, wheezing Apixaban (Eliquis) 5 mg PO BID [facility] Last Admin: 05/03/19 09:25 Dose: 5 mg Documented by: Atorvastatin Calcium (Lipitor) 20 mg PO QHS [facility] Last Admin: 05/02/19 23:09 Dose: 20 mg Documented by: Buspirone HCl (Buspar) 5 mg PO TID [facility] Last Admin: 05/03/19 06:18 Dose: 5 mg Documented by: Carvedilol (Coreg) 12.5 mg PO BID [facility] Last Admin: 05/03/19 09:24 Dose: 12.5 mg Documented by: Dextrose (D50w Syringe) 0 gm IV X1 PRN; Protocol PRN Reason: Hypoglycemia Fentanyl (Duragesic Patch) 25 mcg TRANSDERM. Q3D [facility] Last Admin: 05/01/19 10:06 Dose: 25 mcg Documented by: Gabapentin (Neurontin) 400 mg PO TIDCM [facility] Last Admin: 05/03/19 08:08 Dose: 400 mg Documented by: Glucagon () 1 mg IM .X1 PRN PRN Reason: Hypoglycemia Hydralazine HCl (Apresoline Iv) 10 mg IV Q4H PRN PRN PRN Reason: SBP > 160 Hydromorphone HCl (Dilaudid Inj) 1 mg IV DAILY PRN PRN PRN Reason: Pain Score 6-10/10 Last Admin: 05/01/19 10:15 Dose: 1 mg Documented by: Piperacillin Sod/Tazobactam (Sod 3.375 gm/ Sodium Chloride) 50 mls @ 12.5 mls/hr IV Q12 [facility] Last Admin: 05/03/19 09:24 Dose: 12.5 mls/hr Documented by: Sodium Chloride () 250 mls @ 15 mls/hr IV .[id number] PRN PRN Reason: Saline Flush Last Infusion: 05/03/19 04:30 Dose: 0 mls/hr Documented by: Insulin Glargine (Lantus (Bkc)) 37 units SC DAILY [facility] Last Admin: 05/03/19 08:10 Dose: 37 units Documented by: Insulin Human Lispro (Humalog Kwikpen (Bkc)) 12 unit SC TIDAC [facility] Last Admin: 05/03/19 08:10 Dose: 12 units Documented by: Insulin Human Lispro (Humalog Kwikpen (Bkc)) 0 unit SC ACHS [facility]; Protocol Last Admin: 05/03/19 08:10 Dose: 2 u Documented by: Lorazepam (Ativan) 1 mg PO Q12H PRN PRN PRN Reason: ANXIETY Last Admin: 05/02/19 13:20 Dose: 1 mg Documented by: Magnesium Hydroxide (Milk Of Magnesia) 30 ml PO DAILY PRN PRN Reason: Constipation Melatonin (Melatonin) 3 mg PO QHS PRN PRN Reason: SLEEP Montelukast Sodium (Singulair) 10 mg PO QHS [facility] Last Admin: 05/02/19 23:09 Dose: 10 mg Documented by: Nutritional Formula (Fernando - [place] Flavor) 1 packet PO BIDCM [facility] Last Admin: 05/03/19 08:08 Dose: 1 packet Documented by: Ondansetron HCl (Zofran) 4 mg IV Q8H PRN PRN PRN Reason: NAUSEA/VOMITING Last Admin: 05/01/19 13:42 Dose: 4 mg Documented by: Pantoprazole Sodium (Protonix) 20 mg PO DAILY [facility] Last Admin: 05/03/19 09:24 Dose: 20 mg Documented by: Polyethylene Glycol (Miralax) 34 gm PO X1 PRN PRN Reason: Bowel Movement Prednisone () 30 mg PO 1200 [facility] Last Admin: 05/02/19 13:03 Dose: 30 mg Documented by: Sertraline HCl (Zoloft) 100 mg PO DAILY [facility] Last Admin: 05/03/19 09:24 Dose: 100 mg Documented by: Sevelamer Carbonate (Renvela) 3,200 mg PO TIDCM [facility] Last Admin: 05/03/19 08:08 Dose: 3,200 mg Documented by: Sodium Chloride () 10 - 40 ml IV UD PRN PRN Reason: SALINE FLUSH Last Admin: 05/03/19 09:24 Dose: 10 ml Documented by: Medical Necessity - Tobacco Use Smoking Status: Never smoker Tobacco Use: Non-smoker Assessment/Plan All Active Problems (Last Updated 09/19/18 @ 07:24 by Rema Ocampo) Necrotizing soft tissue infection (Acute) Abdominal wall pain in right flank (Acute) Skin necrosis (Acute) Calciphylaxis (Acute) Cutaneous abscess of abdominal wall (Acute) Wound, open, abdominal wall, anterior (Acute) Problem with dialysis access (Acute) 1. ESRD HD S. Dialysis next on Monday 2. Abdominal wall abscess, skin necrosis s/p debridement and wound vac. antibx per ID 3. DM2 primary mgmt 4. HTN stable 5. Anemia drop in hemoglobin. 1 unit PRBC today prior to transfer to [facility] 6. hyperphosphatemia, improved. Continue Renvela 4 with each meal EC 7. 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
--- NOTE | 2019-05-03 11:53 | CASEMGMT ---
JOLIE spoke spoke with Anjali at [facility]. She said she will need to make sure they can get an ambulance to transport patient. SW asked if they would be able to get a wheelchair that reclines for patient. She said she would have to check and see what they have at the facility and if anything she would have to order something. JOLIE had not heard anything from Anjali so SW called [facility] and spoke with Elizabeth. She said as far as she knows it was set up. SW let her know patient is getting blood before she returns so it will be later on this afternoon. SW let patient know above information. She asked if she would be able to lie in bed for dialysis and SW told her SW would have to ask. DAXA SANTACRUZ [facility] and they do not do dialysis for patient's while in a bed. SW will let patient know this information. Plan: d/c to [facility] under skilled level of care. Nadja MADRID
--- NOTE | 2019-05-03 12:16 | PHA.DC.MR ---
Pharmacy Service has performed discharge medication reconciliation for this patient. Home Medications Montelukast [Singulair] 10 mg PO DAILY 10/29/13 Sertraline HCl 100 mg PO DAILY 06/14/18 Pantoprazole Sodium [Protonix] 20 mg PO DAILY 06/20/18 Atorvastatin Calcium [Lipitor] 20 mg PO QHS 07/28/18 Insulin Glargine,Hum.rec.anlog [Basaglar Kwikpen U-100] 60 unit SQ DAILY 10/04/18 Insulin Lispro [Humalog Kwikpen] 18 unit SQ QHS 10/04/18 predniSONE tablet 30 mg PO 1200 10/04/18 Sevelamer Carbonate [Renvela] 800 mg PO TID 01/19/19 calcium acetate 667 mg capsule 1,334 mg PO TID cap 04/03/19 multivitamin tablet 1 tab PO DAILY 04/03/19 Furosemide [Lasix] 80 mg PO BID 04/25/19 Insulin Lispro [Admelog Solostar] 25 unit SQ DAILY 04/25/19 Metoprolol Tartrate 12.5 mg PO BID 04/25/19 Mycophenolate Mofetil [Cellcept] 250 mg PO BID 04/25/19 Pregabalin [Lyrica] 75 mg PO TID 04/25/19 Amox/Clavulanate Tablet [Augmentin Tablet] 1 tab PO DAILY #7 tab 05/03/19 Apixaban [Eliquis] 5 mg PO BID #90 tab 05/03/19 Ciprofloxacin [Cipro] 500 mg PO DAILY #7 tab 05/03/19 Hydrocodone Bitart/Apap 5-325 [[place] 5/325] 1 - 2 tab PO Q6H PRN PRN 7 Days #30 tab 05/03/19 Magnesium Hydroxide [Milk Of Magnesia] 30 ml PO DAILY PRN #1 udc 05/03/19 fentaNYL patch [Duragesic patch] 25 mcg TRANSDERM. Q3D 9 Days #3 patch 05/03/19 The patient's discharge medication list was reviewed for discrepancies and discrepancies were resolved.
[2019-05-03] MEDS: predniSONE 20 MG Tablet 30 MG PO (12:26)
[2019-05-03 12:36] LABS: Bedside Glucose 210 mg/dL (70-110)
--- NOTE | 2019-05-03 12:54 | CASEMGMT ---
Faxed orders to [facility]. Called [facility] and arranged for patient to get picked up at 4p via cot. SW notified RN, wound RN, patient, Anjali at [facility], and paralegal secretary. SW did let patient know that she will have to transition to a chair at dialysis. Plan: d/c back to [facility] under skilled level of care. [facility] transported via cot due to pain from surgery. Nadja GARCIA MSW
--- NOTE | 2019-05-03 13:42 | PCM.PN.ID ---
Patient Problems: Active and Suspected Problems (Last Updated 09/19/18 @ 07:24 by Rema Ocampo) Wound, open, abdominal wall, anterior (Acute) Subjective: Pain ongoing in abd. No fever. - Physical Exam Vitals/I&O's: Vital Signs Temp Pulse Resp BP Pulse Ox 98.8 F 65 16 110/63 97 05/03/19 13:25 05/03/19 13:25 05/03/19 13:25 05/03/19 13:25 05/03/19 13:25 Oxygen Flow Rate (L/min) 2 Oxygen Delivery Method Room Air Weight: 120.1 kg Body Mass Index (BMI) 44.8 Intake and Output for Last 24 Hours 05/01/19 05/02/19 05/03/19 23:59 23:59 23:59 Intake Total 1722.22 / 2122.22 2087.85 / 2087.85 873.75 / 873.75 Output Total 2700 / 2700 Balance 1722.22 / 2122.22 -612.15 / -612.15 873.75 / 873.75 General: Alert, Cooperative, No apparent distress Lungs: Clear to auscultation, Normal air movement Cardiovascular: Regular rate, Regular Rhythm Abdomen: Soft, Non-Distended Skin: Ulcer/ Wound - wound vac in place Microbiology Past 72 Hours 04/26/19 Unknown Tissue - Abdominal Gram Stain - Final 04/26/19 Unknown Tissue - Abdominal Wound Culture - Final Proteus mirabilis Pseudomonas aeroginosa Staphylococcus aureus 04/26/19 Unknown Tissue - Abdominal Anaerobic Culture - Final Anaerobic cocci Laboratory Results 05/02/19 17:00: POC Glucose 198 H 05/02/19 23:01: POC Glucose 198 H 05/03/19 06:25: Sodium 135 L, Potassium 4.7, Chloride 99, Carbon Dioxide 26.0, Anion Gap 10, BUN 51 H, Creatinine 3.93 H, Estim Creat Clear Calc 13.06, Est GFR (MDRD) Af Amer 15 L, Est GFR (MDRD) Non-Af 13 L, BUN/Creatinine Ratio 13.0, Glucose 237 H, Calcium 8.6, Phosphorus 4.5, Albumin 2.4 L 05/03/19 06:25: WBC 16.5 H, RBC 2.49 L, Hgb 7.5 L, Hct 24.3 L, MCV 97.6, MCH 30.1, MCHC 30.9 L, RDW Std Deviation 58.7 H, RDW Coeff of Perico 16.6 H, Plt Count 212, MPV 11.0, Neut % (Auto) Not Reportable, Absolute Neuts (auto) 14.5 H, Absolute Lymphs (auto) 0.83, Total Counted 100, Neutrophils % (Manual) 88 H, Lymphocytes % (Manual) 5 L, Monocytes % (Manual) 5, Eosinophils % (Manual) 1, Promyelocytes % 1 H, Diff Path Review May foll, Platelet Estimate ADEQUATE, Plt Morphology Comment COMMENT, Polychromasia RARE, Anisocytosis 1+, Tear Drop Cells RARE 05/03/19 08:00: POC Glucose 208 H 05/03/19 08:40: Blood Type A POSITIVE, Antibody Screen NEGATIVE, Crossmatch See Detail 05/03/19 12:24: POC Glucose 210 H Current Medications Acetaminophen (Tylenol) 650 mg PO Q6H PRN PRN PRN Reason: Non-cardiac pain (mod-severe) Last Admin: 04/28/19 07:35 Dose: 650 mg Documented by: Hydrocodone Bitart/Acetaminophen ([place] 5mg-325mg) 1 - 2 tablet PO Q4H PRN PRN PRN Reason: Pain Score 4-10/10 Last Admin: 05/03/19 09:24 Dose: 2 tablet Documented by: Al Hydroxide/Mg Hydroxide (Mylanta Ii) 15 - 30 ml PO Q4H PRN PRN PRN Reason: INDIGESTION Albuterol Sulfate (Ventolin Aerosols) 2.5 mg INHALATION Q2H PRN PRN PRN Reason: dyspnea, wheezing Apixaban (Eliquis) 5 mg PO BID [facility] Last Admin: 05/03/19 09:25 Dose: 5 mg Documented by: Atorvastatin Calcium (Lipitor) 20 mg PO QHS [facility] Last Admin: 05/02/19 23:09 Dose: 20 mg Documented by: Buspirone HCl (Buspar) 5 mg PO TID [facility] Last Admin: 05/03/19 06:18 Dose: 5 mg Documented by: Carvedilol (Coreg) 12.5 mg PO BID [facility] Last Admin: 05/03/19 09:24 Dose: 12.5 mg Documented by: Dextrose (D50w Syringe) 0 gm IV X1 PRN; Protocol PRN Reason: Hypoglycemia Fentanyl (Duragesic Patch) 25 mcg TRANSDERM. Q3D [facility] Last Admin: 05/01/19 10:06 Dose: 25 mcg Documented by: Gabapentin (Neurontin) 400 mg PO TIDCM [facility] Last Admin: 05/03/19 12:25 Dose: 400 mg Documented by: Glucagon () 1 mg IM .X1 PRN PRN Reason: Hypoglycemia Hydralazine HCl (Apresoline Iv) 10 mg IV Q4H PRN PRN PRN Reason: SBP > 160 Hydromorphone HCl (Dilaudid Inj) 1 mg IV DAILY PRN PRN PRN Reason: Pain Score 6-10/10 Last Admin: 05/01/19 10:15 Dose: 1 mg Documented by: Piperacillin Sod/Tazobactam (Sod 3.375 gm/ Sodium Chloride) 50 mls @ 12.5 mls/hr IV Q12 [facility] Last Infusion: 05/03/19 13:33 Dose: Infused Documented by: Sodium Chloride () 250 mls @ 15 mls/hr IV .[id number] PRN PRN Reason: Saline Flush Last Infusion: 05/03/19 04:30 Dose: 0 mls/hr Documented by: Insulin Glargine (Lantus (Bkc)) 37 units SC DAILY [facility] Last Admin: 05/03/19 08:10 Dose: 37 units Documented by: Insulin Human Lispro (Humalog Kwikpen (Bkc)) 12 unit SC TIDAC [facility] Last Admin: 05/03/19 12:26 Dose: 12 units Documented by: Insulin Human Lispro (Humalog Kwikpen (Bkc)) 0 unit SC ACHS [facility]; Protocol Last Admin: 05/03/19 12:26 Dose: 2 u Documented by: Lorazepam (Ativan) 1 mg PO Q12H PRN PRN PRN Reason: ANXIETY Last Admin: 05/02/19 13:20 Dose: 1 mg Documented by: Magnesium Hydroxide (Milk Of Magnesia) 30 ml PO DAILY PRN PRN Reason: Constipation Melatonin (Melatonin) 3 mg PO QHS PRN PRN Reason: SLEEP Montelukast Sodium (Singulair) 10 mg PO QHS [facility] Last Admin: 05/02/19 23:09 Dose: 10 mg Documented by: Nutritional Formula (Fernando - [place] Flavor) 1 packet PO BIDCM [facility] Last Admin: 05/03/19 08:08 Dose: 1 packet Documented by: Ondansetron HCl (Zofran) 4 mg IV Q8H PRN PRN PRN Reason: NAUSEA/VOMITING Last Admin: 05/01/19 13:42 Dose: 4 mg Documented by: Pantoprazole Sodium (Protonix) 20 mg PO DAILY [facility] Last Admin: 05/03/19 09:24 Dose: 20 mg Documented by: Polyethylene Glycol (Miralax) 34 gm PO X1 PRN PRN Reason: Bowel Movement Prednisone () 30 mg PO 1200 [facility] Last Admin: 05/03/19 12:26 Dose: 30 mg Documented by: Sertraline HCl (Zoloft) 100 mg PO DAILY [facility] Last Admin: 05/03/19 09:24 Dose: 100 mg Documented by: Sevelamer Carbonate (Renvela) 3,200 mg PO TIDCM [facility] Last Admin: 05/03/19 12:26 Dose: 3,200 mg Documented by: Sodium Chloride () 10 - 40 ml IV UD PRN PRN Reason: SALINE FLUSH Last Admin: 05/03/19 09:24 Dose: 10 ml Documented by: Medical Necessity - Tobacco Use Smoking Status: Never smoker Tobacco Use: Non-smoker Route of nutrition/ use of supplements: [] Nutritional Intake: [] IV Site: [] Vargas Catheter: [] - Assessment/Plan Antibiotics: [] Assessment/Plan: [] Active and Suspected Problems (Last Updated 09/19/18 @ 07:24 by Rema Ocampo) Wound, open, abdominal wall, anterior (Acute) Necrotic abd wall wound and abscess - now s/p I&D by Dr. Salamanca 04/26. Surg cx with mssa, proteus, pseudomonas, and anaerobes. On zosyn. Vanc has been stopped. Ok for discharge will be one week of po cipro 500mg daily and augmentin 500mg daily. Will follow.
--- NOTE | 2019-05-03 13:50 | PCM.DC.SUM ---
Discharge Date and Diagnosis Date of Admission: 04/25/19 Date of Discharge: 05/03/19 - Primary Discharge Diagnosis Active and Suspected Problems (Last Updated 09/19/18 @ 07:24 by Rema Ocampo) #1 polymicrobial lower/right lateral abdominal wall nonhealing infected diabetic necrotic ulcer/abscess, secondary to calciphylaxis, status post incision, drainage and excisional debridement of the skin, subcutaneous tissue and fascia as well as abdominal panniculectomy/status post wound VAC insertion. #2 intractable lower abdominal pain secondary to surgery. #3 acute right leg DVT. 4 ESRD on hemodialysis. 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 3.6 cm x 5.3 cm ill-defined soft tissue density in deep subcutaneous tissues overlying the posterior right lateral abdominal wall. The overlying skin is unremarkable. Electronically Signed: Sylvester Minaya, at 15:29 EST , Service support , Consultations 04/25/19 18:55 Consult: Onc/Wound/folded cloth taper Routine Comment: Reason for Consult:: abdominal wound Operations: None, - Procedures: Blood transfusion, Dialysis, - - Incision, drainage and excisional debridement. Summary of Care Provided: Patient seen and examined on the day of discharge and appeared to be stable to be discharged to group home facility. She complained of lower abdominal pain mainly up on wound VAC change or wound dressing change. Her vital signs are stable. She has been afebrile. Her WBC has been going up which is attributed to steroids. This is a 59 years old female patient presented to the emergency room because of lower abdominal wall wound, found to have lower abdominal wall nonhealing infected diabetic necrotic ulcer/abscess due to calciphylaxis and she underwent surgery and postoperatively, she developed acute right leg DVT. #1 Polymicrobial lower/right lateral abdominal wall nonhealing infected diabetic necrotic ulcer/abscesses: Secondary to calciphylaxis, status post incision, drainage and excisional debridement of the skin, subcutaneous tissue and fascia as well as abdominal panniculectomy, status post wound VAC insertion. Treated with IV Zosyn. Wound culture revealed Proteus mirabilis, mirabilis, Pseudomonas aeruginosa and MSSA. She is remained afebrile for more than 48 hours and her white blood cell count started to go up which is attributed to steroids. Infectious disease consulted and recommended to discharge patient on 1 more week of oral ciprofloxacin and Augmentin. During this hospital stay, patient has multiple issues regarding the intractable lower abdominal pain secondary to the surgery. She became afraid and very anxious upon wound VAC change or wound dressing change. She was started on fentanyl patch, IV Dilaudid PRN for pain during the wound care as well as [place] PRN. Upon discharge, she was discharged on fentanyl patch and [place] PRN. #2 acute right leg DVT: Initially treated with IV heparin drip. There was an issue with the dialysis catheter which was working improperly and there was a chance that we may need to change the dialysis catheter. On the last dialysis, dialysis catheter was flushed with TPA and it has been working fine. IV heparin drip discontinued and patient was started on Eliquis 5 mg p.o. twice daily and she was discharged on the same dosage. #3 ESRD on hemodialysis: Issue with the dialysis catheter resolved after it was flushed with TPA. Patient received hemodialysis according to her schedule. #4 Type 2 diabetes mellitus: Continued on her previous dosage of Lantus, Humalog 3 times daily upon discharge. #5 hypertension: Blood pressure remained stable, continued on Coreg. #6 chronic anemia: Hemoglobin went down to 7.5 g/dL, received 1 unit of packed RBCs. #7 chronic inflammatory demyelinating polyneuropathy: Continued on prednisone. #8 anxiety/depression: Continued on BuSpar and Zoloft. Patient discharged to group home facility in a stable medical condition, discharged on 1 week of ciprofloxacin and Augmentin according to infectious disease, discharged on Eliquis 5 mg p.o. twice daily for acute right leg DVT, continued on her previous home medications without any changes, plan to follow-up with Dr. salamanca at the wound care center, follow-up with PCP in 2 weeks and follow-up with nephrology according to Dr. Lew. This note was generated with [employer] dictation software. It may contain incorrect words, spelling, and punctuation that were not noted in checking the note before signing. - Physical Exam Vitals/I&O's: Vital Signs Temp Pulse Resp BP Pulse Ox 98.8 F 65 16 110/63 97 05/03/19 13:25 05/03/19 13:25 05/03/19 13:25 05/03/19 13:25 05/03/19 13:25 Oxygen Flow Rate (L/min) 2 Oxygen Delivery Method Room Air Weight: 264 lb 12.403 oz Body Mass Index (BMI) 44.8 Intake and Output for Last 24 Hours 05/01/19 05/02/19 05/03/19 23:59 23:59 23:59 Intake Total 1722.22 / 2122.22 2087.85 / 2087.85 873.75 / 873.75 Output Total 2700 / 2700 Balance 1722.22 / 2122.22 -612.15 / -612.15 873.75 / 873.75 General: Alert, Oriented x3, Cooperative, No apparent distress HEENT: Atraumatic, PERRLA, EOMI, Normocephalic Oral: Moist Mucosa, No Gingival or Mucosal Lesions/ Ulcerations Neck: Supple, No JVD, Negative Carotid Bruits, Trachea Midline, Thyroid Normal Size and Texture Lungs: Clear to auscultation, Normal air movement, No rhonchi, No wheeze, No rales Cardiovascular: Regular rate, Regular Rhythm, Normal S1, Normal S2, PMI Normal Abdomen: Bowel Sounds Present, Soft, Non Tender, Non-Distended, No Hepato-splenomegaly, Obese Extremities: No clubbing, No cyanosis, Edema Skin: No rashes, Ulcer/ Wound Lymphatic: No Cervical, Supraclavicular, or Inguinal Adenopathy Neurological: Cranial nerves II-XII grossly intact, Neuro grossly intact, - Psych/Mental Status: Normal Affect, Appropriate, Alert and oriented to time, place, person, mood and affect Microbiology Past 72 Hours 04/26/19 Unknown Tissue - Abdominal Gram Stain - Final 04/26/19 Unknown Tissue - Abdominal Wound Culture - Final Proteus mirabilis Pseudomonas aeroginosa Staphylococcus aureus 04/26/19 Unknown Tissue - Abdominal Anaerobic Culture - Final Anaerobic cocci Laboratory Results 05/02/19 17:00: POC Glucose 198 H 05/02/19 23:01: POC Glucose 198 H 05/03/19 06:25: Sodium 135 L, Potassium 4.7, Chloride 99, Carbon Dioxide 26.0, Anion Gap 10, BUN 51 H, Creatinine 3.93 H, Estim Creat Clear Calc 13.06, Est GFR (MDRD) Af Amer 15 L, Est GFR (MDRD) Non-Af 13 L, BUN/Creatinine Ratio 13.0, Glucose 237 H, Calcium 8.6, Phosphorus 4.5, Albumin 2.4 L 05/03/19 06:25: WBC 16.5 H, RBC 2.49 L, Hgb 7.5 L, Hct 24.3 L, MCV 97.6, MCH 30.1, MCHC 30.9 L, RDW Std Deviation 58.7 H, RDW Coeff of Perico 16.6 H, Plt Count 212, MPV 11.0, Neut % (Auto) Not Reportable, Absolute Neuts (auto) 14.5 H, Absolute Lymphs (auto) 0.83, Total Counted 100, Neutrophils % (Manual) 88 H, Lymphocytes % (Manual) 5 L, Monocytes % (Manual) 5, Eosinophils % (Manual) 1, Promyelocytes % 1 H, Diff Path Review May foll, Platelet Estimate ADEQUATE, Plt Morphology Comment COMMENT, Polychromasia RARE, Anisocytosis 1+, Tear Drop Cells RARE 05/03/19 08:00: POC Glucose 208 H 05/03/19 08:40: Blood Type A POSITIVE, Antibody Screen NEGATIVE, Crossmatch See Detail 05/03/19 12:24: POC Glucose 210 H Current Medications Acetaminophen (Tylenol) 650 mg PO Q6H PRN PRN PRN Reason: Non-cardiac pain (mod-severe) Last Admin: 04/28/19 07:35 Dose: 650 mg Documented by: Hydrocodone Bitart/Acetaminophen ([place] 5mg-325mg) 1 - 2 tablet PO Q4H PRN PRN PRN Reason: Pain Score 4-10/10 Last Admin: 05/03/19 09:24 Dose: 2 tablet Documented by: Al Hydroxide/Mg Hydroxide (Mylanta Ii) 15 - 30 ml PO Q4H PRN PRN PRN Reason: INDIGESTION Albuterol Sulfate (Ventolin Aerosols) 2.5 mg INHALATION Q2H PRN PRN PRN Reason: dyspnea, wheezing Apixaban (Eliquis) 5 mg PO BID [facility] Last Admin: 05/03/19 09:25 Dose: 5 mg Documented by: Atorvastatin Calcium (Lipitor) 20 mg PO QHS [facility] Last Admin: 05/02/19 23:09 Dose: 20 mg Documented by: Buspirone HCl (Buspar) 5 mg PO TID [facility] Last Admin: 05/03/19 06:18 Dose: 5 mg Documented by: Carvedilol (Coreg) 12.5 mg PO BID [facility] Last Admin: 05/03/19 09:24 Dose: 12.5 mg Documented by: Dextrose (D50w Syringe) 0 gm IV X1 PRN; Protocol PRN Reason: Hypoglycemia Fentanyl (Duragesic Patch) 25 mcg TRANSDERM. Q3D [facility] Last Admin: 05/01/19 10:06 Dose: 25 mcg Documented by: Gabapentin (Neurontin) 400 mg PO TIDCM [facility] Last Admin: 05/03/19 12:25 Dose: 400 mg Documented by: Glucagon () 1 mg IM .X1 PRN PRN Reason: Hypoglycemia Hydralazine HCl (Apresoline Iv) 10 mg IV Q4H PRN PRN PRN Reason: SBP > 160 Hydromorphone HCl (Dilaudid Inj) 1 mg IV DAILY PRN PRN PRN Reason: Pain Score 6-10/10 Last Admin: 05/01/19 10:15 Dose: 1 mg Documented by: Piperacillin Sod/Tazobactam (Sod 3.375 gm/ Sodium Chloride) 50 mls @ 12.5 mls/hr IV Q12 [facility] Last Infusion: 05/03/19 13:33 Dose: Infused Documented by: Sodium Chloride () 250 mls @ 15 mls/hr IV .[id number] PRN PRN Reason: Saline Flush Last Infusion: 05/03/19 04:30 Dose: 0 mls/hr Documented by: Insulin Glargine (Lantus (Bkc)) 37 units SC DAILY [facility] Last Admin: 05/03/19 08:10 Dose: 37 units Documented by: Insulin Human Lispro (Humalog Kwikpen (Bk)) 12 unit SC TIDAC [facility] Last Admin: 05/03/19 12:26 Dose: 12 units Documented by: Insulin Human Lispro (Humalog Kwikpen (Bk)) 0 unit SC ACHS [facility]; Protocol Last Admin: 05/03/19 12:26 Dose: 2 u Documented by: Lorazepam (Ativan) 1 mg PO Q12H PRN PRN PRN Reason: ANXIETY Last Admin: 05/02/19 13:20 Dose: 1 mg Documented by: Magnesium Hydroxide (Milk Of Magnesia) 30 ml PO DAILY PRN PRN Reason: Constipation Melatonin (Melatonin) 3 mg PO QHS PRN PRN Reason: SLEEP Montelukast Sodium (Singulair) 10 mg PO QHS [facility] Last Admin: 05/02/19 23:09 Dose: 10 mg Documented by: Nutritional Formula (Fernando - [place] Flavor) 1 packet PO BIDCM [facility] Last Admin: 05/03/19 08:08 Dose: 1 packet Documented by: Ondansetron HCl (Zofran) 4 mg IV Q8H PRN PRN PRN Reason: NAUSEA/VOMITING Last Admin: 05/01/19 13:42 Dose: 4 mg Documented by: Pantoprazole Sodium (Protonix) 20 mg PO DAILY [facility] Last Admin: 05/03/19 09:24 Dose: 20 mg Documented by: Polyethylene Glycol (Miralax) 34 gm PO X1 PRN PRN Reason: Bowel Movement Prednisone () 30 mg PO 1200 [facility] Last Admin: 05/03/19 12:26 Dose: 30 mg Documented by: Sertraline HCl (Zoloft) 100 mg PO DAILY [facility] Last Admin: 05/03/19 09:24 Dose: 100 mg Documented by: Sevelamer Carbonate (Renvela) 3,200 mg PO TIDCM [facility] Last Admin: 05/03/19 12:26 Dose: 3,200 mg Documented by: Sodium Chloride () 10 - 40 ml IV UD PRN PRN Reason: SALINE FLUSH Last Admin: 05/03/19 09:24 Dose: 10 ml Documented by: Home Medications: Medications to take at Discharge Montelukast [Singulair] 10 mg PO DAILY 10/29/13 Sertraline HCl 100 mg PO DAILY 06/14/18 Pantoprazole Sodium [Protonix] 20 mg PO DAILY 06/20/18 Atorvastatin Calcium [Lipitor] 20 mg PO QHS 07/28/18 Insulin Glargine,Hum.rec.anlog [Basaglar Kwikpen U-100] 60 unit SQ DAILY 10/04/18 Insulin Lispro [Humalog Kwikpen] 18 unit SQ QHS 10/04/18 predniSONE tablet 30 mg PO 1200 10/04/18 Sevelamer Carbonate [Renvela] 800 mg PO TID 01/19/19 calcium acetate 667 mg capsule 1,334 mg PO TID cap 04/03/19 multivitamin tablet 1 tab PO DAILY 04/03/19 Furosemide [Lasix] 80 mg PO BID 04/25/19 Insulin Lispro [Admelog Solostar] 25 unit SQ DAILY 04/25/19 Metoprolol Tartrate 12.5 mg PO BID 04/25/19 Mycophenolate Mofetil [Cellcept] 250 mg PO BID 04/25/19 Pregabalin [Lyrica] 75 mg PO TID 04/25/19 Amox/Clavulanate Tablet [Augmentin Tablet] 1 tab PO DAILY #7 tab 05/03/19 Apixaban [Eliquis] 5 mg PO BID #90 tab 05/03/19 Ciprofloxacin [Cipro] 500 mg PO DAILY #7 tab 05/03/19 Hydrocodone Bitart/Apap 5-325 [[place] 5/325] 1 - 2 tab PO Q6H PRN PRN 7 Days #30 tab 05/03/19 Magnesium Hydroxide [Milk Of Magnesia] 30 ml PO DAILY PRN #1 udc 05/03/19 fentaNYL patch [Duragesic patch] 25 mcg TRANSDERM. Q3D 9 Days #3 patch 05/03/19 Following Prescrptions Were Given to Patient: Amox/Clavulanate Tablet [Augmentin Tablet] 1 tab PO DAILY #7 tab Prescription Printed Ciprofloxacin [Cipro] 500 mg PO DAILY #7 tab Prescription Printed fentaNYL patch [Duragesic patch] 25 mcg TRANSDERM. Q3D 9 Days #3 patch Prescription Printed Apixaban [Eliquis] 5 mg PO BID #90 tab Prescription Printed Magnesium Hydroxide [Milk Of Magnesia] 30 ml PO DAILY PRN #1 udc PRN Reason: Constipation Hydrocodone Bitart/Apap 5-325 [[place] 5/325] 1 - 2 tab PO Q6H PRN PRN 7 Days #30 tab PRN Reason: Pain Score 4-10/10 Prescription Printed Primary Care Physician: Marcela Kerr MD [Primary Care Provider] - Please follow up with your Primary Care Physician in: 2 weeks. Please Follow Up With: Terrence Salamanca MD When: as per him at the wound center. Please Follow Up With: Jillian Lew DO When: please call her office. Disposition: Halfway facility Minutes spent on discharge:: 35 Patient Condition:: Stable Medical Necessity - Tobacco Use Smoking Status: Never smoker Tobacco Use: Non-smoker Meaningful Use Info Meaningful Use Diagnoses (Choose all that apply): None applicable Code Visit Inpatient E&M: 18942 Disch Hosp
[2019-05-03] MEDS: HYDROmorphone 1 MG/ML Syringe IV (14:11)
--- NOTE | 2019-05-03 15:21 | NURSING ---
Gave report to Sean MITTAL at [facility]
--- NOTE | 2019-05-03 16:06 | PCM.PN.SRG ---
Patient Problems: Active and Suspected Problems (Last Updated 09/19/18 @ 07:24 by Rema Ocampo) Wound, open, abdominal wall, anterior (Acute) - Physical Exam Vitals/I&O's: Vital Signs Temp Pulse Resp BP Pulse Ox 97.8 F 61 16 129/75 H 100 05/03/19 14:25 05/03/19 14:59 05/03/19 14:25 05/03/19 14:25 05/03/19 14:25 Oxygen Flow Rate (L/min) 2 Oxygen Delivery Method Room Air Weight: 264 lb 12.403 oz Body Mass Index (BMI) 44.8 Intake and Output for Last 24 Hours 05/01/19 05/02/19 05/03/19 23:59 23:59 23:59 Intake Total 1722.22 / 2122.22 2087.85 / 2087.85 873.75 / 873.75 Output Total 2700 / 2700 Balance 1722.22 / 2122.22 -612.15 / -612.15 873.75 / 873.75 General: Alert, Cooperative HEENT: Atraumatic Oral: Moist Mucosa Lungs: Normal air movement Cardiovascular: Regular rate Abdomen: Soft Extremities: Capillary Refill Less than 3 Seconds Skin: Ulcer/ Wound - Lower abdominal wound Musculoskeletal: No Muscle Wasting Neurological: Neuro grossly intact Psych/Mental Status: Anxious Microbiology Past 72 Hours 04/26/19 Unknown Tissue - Abdominal Gram Stain - Final 04/26/19 Unknown Tissue - Abdominal Wound Culture - Final Proteus mirabilis Pseudomonas aeroginosa Staphylococcus aureus 04/26/19 Unknown Tissue - Abdominal Anaerobic Culture - Final Anaerobic cocci Laboratory Results 05/02/19 17:00: POC Glucose 198 H 05/02/19 23:01: POC Glucose 198 H 05/03/19 06:25: Sodium 135 L, Potassium 4.7, Chloride 99, Carbon Dioxide 26.0, Anion Gap 10, BUN 51 H, Creatinine 3.93 H, Estim Creat Clear Calc 13.06, Est GFR (MDRD) Af Amer 15 L, Est GFR (MDRD) Non-Af 13 L, BUN/Creatinine Ratio 13.0, Glucose 237 H, Calcium 8.6, Phosphorus 4.5, Albumin 2.4 L 05/03/19 06:25: WBC 16.5 H, RBC 2.49 L, Hgb 7.5 L, Hct 24.3 L, MCV 97.6, MCH 30.1, MCHC 30.9 L, RDW Std Deviation 58.7 H, RDW Coeff of Perico 16.6 H, Plt Count 212, MPV 11.0, Neut % (Auto) Not Reportable, Absolute Neuts (auto) 14.5 H, Absolute Lymphs (auto) 0.83, Total Counted 100, Neutrophils % (Manual) 88 H, Lymphocytes % (Manual) 5 L, Monocytes % (Manual) 5, Eosinophils % (Manual) 1, Promyelocytes % 1 H, Diff Path Review May foll, Platelet Estimate ADEQUATE, Plt Morphology Comment COMMENT, Polychromasia RARE, Anisocytosis 1+, Tear Drop Cells RARE 05/03/19 08:00: POC Glucose 208 H 05/03/19 08:40: Blood Type A POSITIVE, Antibody Screen NEGATIVE, Crossmatch See Detail 05/03/19 12:24: POC Glucose 210 H Current Medications Acetaminophen (Tylenol) 650 mg PO Q6H PRN PRN PRN Reason: Non-cardiac pain (mod-severe) Last Admin: 04/28/19 07:35 Dose: 650 mg Documented by: Hydrocodone Bitart/Acetaminophen ([place] 5mg-325mg) 1 - 2 tablet PO Q4H PRN PRN PRN Reason: Pain Score 4-10/10 Last Admin: 05/03/19 09:24 Dose: 2 tablet Documented by: Al Hydroxide/Mg Hydroxide (Mylanta Ii) 15 - 30 ml PO Q4H PRN PRN PRN Reason: INDIGESTION Albuterol Sulfate (Ventolin Aerosols) 2.5 mg INHALATION Q2H PRN PRN PRN Reason: dyspnea, wheezing Apixaban (Eliquis) 5 mg PO BID [facility] Last Admin: 05/03/19 09:25 Dose: 5 mg Documented by: Atorvastatin Calcium (Lipitor) 20 mg PO QHS [facility] Last Admin: 05/02/19 23:09 Dose: 20 mg Documented by: Buspirone HCl (Buspar) 5 mg PO TID [facility] Last Admin: 05/03/19 14:39 Dose: 5 mg Documented by: Carvedilol (Coreg) 12.5 mg PO BID [facility] Last Admin: 05/03/19 09:24 Dose: 12.5 mg Documented by: Dextrose (D50w Syringe) 0 gm IV X1 PRN; Protocol PRN Reason: Hypoglycemia Fentanyl (Duragesic Patch) 25 mcg TRANSDERM. Q3D [facility] Last Admin: 05/01/19 10:06 Dose: 25 mcg Documented by: Gabapentin (Neurontin) 400 mg PO TIDCM [facility] Last Admin: 05/03/19 12:25 Dose: 400 mg Documented by: Glucagon () 1 mg IM .X1 PRN PRN Reason: Hypoglycemia Hydralazine HCl (Apresoline Iv) 10 mg IV Q4H PRN PRN PRN Reason: SBP > 160 Hydromorphone HCl (Dilaudid Inj) 1 mg IV DAILY PRN PRN PRN Reason: Pain Score 6-10/10 Last Admin: 05/03/19 14:11 Dose: 1 mg Documented by: Piperacillin Sod/Tazobactam (Sod 3.375 gm/ Sodium Chloride) 50 mls @ 12.5 mls/hr IV Q12 [facility] Last Infusion: 05/03/19 13:33 Dose: Infused Documented by: Sodium Chloride () 250 mls @ 15 mls/hr IV .[id number] PRN PRN Reason: Saline Flush Last Infusion: 05/03/19 14:46 Dose: Infused Documented by: Insulin Glargine (Lantus (Bkc)) 37 units SC DAILY [facility] Last Admin: 05/03/19 08:10 Dose: 37 units Documented by: Insulin Human Lispro (Humalog Kwikpen (Bkc)) 12 unit SC TIDAC [facility] Last Admin: 05/03/19 12:26 Dose: 12 units Documented by: Insulin Human Lispro (Humalog Kwikpen (Bkc)) 0 unit SC ACHS [facility]; Protocol Last Admin: 05/03/19 12:26 Dose: 2 u Documented by: Lorazepam (Ativan) 1 mg PO Q12H PRN PRN PRN Reason: ANXIETY Last Admin: 05/02/19 13:20 Dose: 1 mg Documented by: Magnesium Hydroxide (Milk Of Magnesia) 30 ml PO DAILY PRN PRN Reason: Constipation Melatonin (Melatonin) 3 mg PO QHS PRN PRN Reason: SLEEP Montelukast Sodium (Singulair) 10 mg PO QHS [facility] Last Admin: 05/02/19 23:09 Dose: 10 mg Documented by: Nutritional Formula (Fernando - [place] Flavor) 1 packet PO BIDCM [facility] Last Admin: 05/03/19 08:08 Dose: 1 packet Documented by: Ondansetron HCl (Zofran) 4 mg IV Q8H PRN PRN PRN Reason: NAUSEA/VOMITING Last Admin: 05/01/19 13:42 Dose: 4 mg Documented by: Pantoprazole Sodium (Protonix) 20 mg PO DAILY [facility] Last Admin: 05/03/19 09:24 Dose: 20 mg Documented by: Polyethylene Glycol (Miralax) 34 gm PO X1 PRN PRN Reason: Bowel Movement Prednisone () 30 mg PO 1200 [facility] Last Admin: 05/03/19 12:26 Dose: 30 mg Documented by: Sertraline HCl (Zoloft) 100 mg PO DAILY [facility] Last Admin: 05/03/19 09:24 Dose: 100 mg Documented by: Sevelamer Carbonate (Renvela) 3,200 mg PO TIDCM [facility] Last Admin: 05/03/19 12:26 Dose: 3,200 mg Documented by: Sodium Chloride () 10 - 40 ml IV UD PRN PRN Reason: SALINE FLUSH Last Admin: 05/03/19 14:39 Dose: 10 ml Documented by: Medical Necessity - Tobacco Use Smoking Status: Never smoker Tobacco Use: Non-smoker Assessment/Plan All Active Problems (Last Updated 09/19/18 @ 07:24 by Rema Ocampo) Necrotizing soft tissue infection (Acute) Abdominal wall pain in right flank (Acute) Skin necrosis (Acute) Calciphylaxis (Acute) Cutaneous abscess of abdominal wall (Acute) Wound, open, abdominal wall, anterior (Acute) Problem with dialysis access (Acute) Post op day #7 1. 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 2. Painful insulin nodules abdominal wall. 3. Diabetes mellitus. 4. ESRD requiring dialysis. 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 6. Abdominal panniculus. 7. Abdominal wall skin crease intertrigo. 8. s/p surgical preparation right lateral abdominal wall with incision and drainage and excisional debridement skin and subcutaneous tissue and fascia nonhealing infected diabetic necrotic ulcerated abscesses necrotizing soft tissue infection (377 cm2) and abdominal panniculectomy. VAC stopped today for transfer to [facility] and a wet to dry dressing placed. The ECF will place VAC upon admission there. Increased pain with the VAC removal and dressing change. No bleeding seen in the wound. Needed IV analgesia. Operative culture shows Proteus mirabilis, Pseudomonas aeroginosa, Staphylococcus aureus and Anaerobic cocci. She is on Zosyn. The Vancomycin has been stopped. After discharge back to [facility], can followup at the Wound Center in 2-4 weeks. If there is a plateau in the healing process, can proceed with delayed closure with skin grafting or complex secondary wound closure. Some of the infection abscesses could also be related to insulin nodules. She injects her insulin into her abdomen. Suggested to the patient to start insulin injections in the arm and the thigh. Anticipate increased metabolic demands from the wounds and the infection. Prealbumin was 19.1. Encourage nutritional supplementation with protein to help the healing process. In renal failure patients on dialysis, when necrotic skin infections start developing, calciphylaxis can be present. Sometimes this is progressive and other areas on the abdominal wall and the extremities can develop necrotic skin infections. Because of the severe pain present in these wounds and if multiple wounds develop, these patients sometimes need to go to a Burn Center for more aggressive wound care with a whirlpool and the need for much higher doses of IV analgesia.
--- NOTE | 2019-05-03 16:06 | CHAPLAIN ---
Type of Pastoral Visit ___ Initial Visit _x__ Follow-up Visit ___ On-call Visit ___ General Patient Visit ___ Spiritual Assessment ___ Family Conference ___ Bereavement ___ Rapid Response ___ Code Blue ___ Other (describe below) Pastoral Care Referral From ___ Patient _x__ Family ___ Nurse ___ Physician ___ Supervisor [employer] ___ [employer] [facility] ___ Other (describe below) Sacrament/Intervention ___ Active listening ___ Anointing ___ Mu-Ism ___ Bereavement ___ Communion ___ Thais exploration ___ ___ Life review ___ Prayer ___ Reconciliation ___ Sacrament of Sick _x__ Supportive presence ___ Wedding ___ Other (describe below) Pastoral Comments
[2019-05-03 16:40] LABS: Bedside Glucose 161 mg/dL (70-110)
[2019-05-06 09:49] LABS: Pathologist Review Reviewed
== END 2019-05-03 16:32 | disposition skilled nursing facility (03) | DRG 570 ==
LOC: ED 17:04 → MS3 17:35 → PCU 17:48
PROVIDERS: Internal Medicine; Internal Medicine Nephrology; Nurse Practitioner Family; Student in an Organized Health Care Education/Training Program; Surgery; Admitting Provider Family Medicine; Emergency Provider Emergency Medicine; Family Provider Internal Medicine Geriatric Medicine; PCP Internal Medicine Geriatric Medicine; Visit Provider Hospitalist
PROC: 0JB80ZZ Excision of Abdomen Subcutaneous Tissue and Fascia, Open Approach (ICD-10-PCS; principal; 2019-04-26 13:40)
DX: L02.211 Cutaneous abscess of abdominal wall (principal); N18.6 End stage renal disease; G61.81 Chronic inflammatory demyelinating polyneuritis; I13.2 Hypertensive heart and chronic kidney disease with heart failure and with stage 5 chronic kidney disease, or end stage renal disease; Z68.41 Body mass index [BMI] 40.0-44.9, adult; I50.32 Chronic diastolic (congestive) heart failure; G82.20 Paraplegia, unspecified; I82.411 Acute embolism and thrombosis of right femoral vein; I82.431 Acute embolism and thrombosis of right popliteal vein; T82.9XXA Unspecified complication of cardiac and vascular prosthetic device, implant and graft, initial encounter; E11.622 Type 2 diabetes mellitus with other skin ulcer; L94.2 Calcinosis cutis; E11.22 Type 2 diabetes mellitus with diabetic chronic kidney disease; E66.01 Morbid (severe) obesity due to excess calories; E87.5 Hyperkalemia; E78.5 Hyperlipidemia, unspecified; D63.8 Anemia in other chronic diseases classified elsewhere; K21.9 Gastro-esophageal reflux disease without esophagitis; L98.499 Non-pressure chronic ulcer of skin of other sites with unspecified severity; F32.9 Major depressive disorder, single episode, unspecified; F41.9 Anxiety disorder, unspecified; L30.4 Erythema intertrigo; E83.39 Other disorders of phosphorus metabolism; B95.61 Methicillin susceptible Staphylococcus aureus infection as the cause of diseases classified elsewhere; B96.5 Pseudomonas (aeruginosa) (mallei) (pseudomallei) as the cause of diseases classified elsewhere; B96.4 Proteus (mirabilis) (morganii) as the cause of diseases classified elsewhere; Z79.52 Long term (current) use of systemic steroids; Z79.4 Long term (current) use of insulin
CPT/HCPCS: 36415; 74176; 80048; 80069; 82962; 83036; 84100; 84134; 85025; 85027; 85610; 85730; 86850; 86900; 86901; 86920; 86922; 87070; 87075; 87077; 87102; 87176; 87186; 87205; 87206; 87340; 88304; 88305; 90937; 93005; 93970; 94640; 97163; 97166; 97802; 97803; 99285; J2997; J7030; J7040; J7050; J7120; P9016; A4216; G0257; J2405; Q5106

== ENCOUNTER 2019-05-13 18:11 | Emergency (ER) | payer OTHER, MEDICAID, SELFPAY ==
[2019-04-26 11:38] VITALS: BMI 44.8
[2019-05-13 18:12] VITALS: BP 124/87; PULSE 90; RESP 18; TEMP 36.6; O2SAT 94; BMI 48.6
[2019-05-13 18:22] VITALS: TEMP 36.6
--- NOTE | 2019-05-13 18:27 | ED.RN ---
PT WITH LARGE ABDOMINAL WOUND ACROSS PANIS. WOUND VAC IN PLACE,. PT CONCERNED FOR 2 SPOTS THAT HAVE APPEARED ON LOWER LEFT ABDOMEN
[2019-05-13] MEDS: 0.9% Normal Saline 1,000 ML 150 ML IV (18:50)
[2019-05-13 19:15] LABS: Absolute Lymphocyte Count 0.72 X10^3/uL (0.83-4.51); Absolute Neutrophil Count 12.5 X10^3/uL (2.0-7.7); Basophil# 0.02 X10^3/uL; Basophil% 0.1 % (0-1); Hematocrit 32.7 % (37-47); Hemoglobin 10.2 g/dL (12.0-15.0); Lymphocyte # 0.72 X10^3/ul (4.0); Mean Corp Hgb Conc 31.2 g/dL (32-36); Mean Corpuscular Hgb 29.7 pg (27.0-32.0); Mean Corpuscular Volume 95.3 fL (81-99); Mean Platelet Vol. 11.6 fl (6.2-12.0); Monocyte# 0.77 X10^3/uL; Monocyte% 5.3 % (0-10); NRBC Flagged by Analyzer 0.3 % (0-5); Neutrophil # 12.53 X10^3/uL (2.7-7.7); Neutrophil % 86.2 % (47-70); Platelet Count 185 K/mm3 (150-450); RBC Distribution Width CV 16.2 % (11.6-14.6); RBC Distribution Width SD 56.1 fl (35.1-43.9); Red Blood Count 3.43 M/mm3 (4.2-5.4); White Blood Count 14.5 K/mm3 (4.4-11.0)
[2019-05-13 19:24] LABS: Anion Gap 9 (5-15); BUN 31 mg/dL (7-18); BUN/Creat Ratio 13.8 RATIO (10-20); Chloride 102 mmol/L (98-107); Creatinine, Serum 2.25 mg/dL (0.55-1.02); EST Glomerular Filtration Rate 24 mL/min (>60); Est Glom Filt Rate - Afr Amer 29 mL/min (>60); Estimated Creatinine Clearance 21.82 ml/min; Glucose 223 mg/dL (74-106); Potassium 3.8 mmol/L (3.5-5.1); Sodium Level 141 mmol/L (136-145)
--- NOTE | 2019-05-13 20:43 | ED.DCSUM_ITS ---
- ER Visit Summary Date of Service: 05/13/19 Chief Complaint: [Wound check] History of Present Illness: The patient is a 59 F [presents to the emergency department with complaint of a wound that has developed over the last several days adjacent to where she had surgery. Patient tells me that Dr. Eder ernst erformed a panniculectomy on her abdomen from some wounds that she had and she currently has a wound VAC in place. Patient missed her appointment with the wound center because she had to go to dialysis this morning. Patient denies any fevers. Patient is concerned that these 2 small wounds are similar to what started her necrosis requiring surgery.] Physical Examination: [HEENT-PERRLA, EOMI. Cranial nerves II through XII grossly intact. TMs clear. Mucous membranes moist. No adenopathy. Cardiovascular-regular rate and rhythm without murmur or ectopy Lungs-clear to auscultation, chest wall stable without crepitus or subcu emphysema Abdomen-normoactive bowel sounds, soft, nontender, no rebound or rigidity, no peritoneal signs.. Evaluation of the lower abdominal wall does reveal an open wound with a wound VAC over it. Patient has a large pannus. Just lateral onto the left lower abdominal wall patient has 2 small wounds that are of concern to her. One measures about 8 mm in diameter and one measures about 6 cm in diameter. There is small scabbing to the superior wound. The smaller wound looks like a small skin abrasion. There is no erythema. There is no necrosis noted. Extremities-intact ?4, normal range of motion, normal pulses, atraumatic] Test Results: [CBC with differential obtained for white count of 14.5, hemoglobin 10, hematocrit 33,] Emergency Department Course and Treatment: [Case was discussed with patient's surgeon Dr. Salamanca. At this point he is comfortable having patient follow-up with the wound center in about a week and keeping a close eye on the wounds as if they become progressive or necrotic may need further intervention. Patient's white counts been elevated for the last several weeks and she is on low-dose prednisone. Had no fevers and she does not appear ill or toxic.] Treatment Plan: [Discharged home in stable condition. I advised patient that she should have her wound VAC discontinued for the next week.] Disposition: [Discharged home in stable condition] Impression: [Wound check-no infection] This note was generated with [employer] dictation software. It may contain incorrect words, spelling, and punctuation that were not noted in review of the chart prior to signing ED Disposition - Plan for ED Patient: Referrals: Marcela Kerr MD [Primary Care Provider] -
--- NOTE | 2019-05-13 20:53 | ED.DEP ---
ED Disposition - Plan for ED Patient: Instructions: Wound Care, POST OP WOUND CHECK, Pain Referrals: Marcela Kerr MD [Primary Care Provider] - Additional Instructions: discontinue wound vac and do wet to dry dressing Follow up with wound center in 5-7 days
[2019-05-13 21:14] VITALS: BP 149/74; PULSE 67; RESP 18
[2019-05-13 21:30] VITALS: BP 139/74; RESP 14
== END 2019-05-13 21:31 | disposition home or self-care (01) ==
LOC: ED 19:03
PROVIDERS: Emergency Provider Emergency Medicine; Family Provider Internal Medicine Geriatric Medicine; PCP Internal Medicine Geriatric Medicine
DX: Z48.01 Encounter for change or removal of surgical wound dressing (principal); I10 Essential (primary) hypertension; E11.9 Type 2 diabetes mellitus without complications; Z79.4 Long term (current) use of insulin; Z79.899 Other long term (current) drug therapy
CPT/HCPCS: 80048; 85025; 96360; 96361; 99285; J7030; A4216

== ENCOUNTER 2019-05-28 00:13 | Emergency (ER) | payer OTHER, MEDICAID, SELFPAY ==
[2019-05-27 09:33] VITALS: BMI 45.7
[2019-05-28 00:14] VITALS: BP 127/81; PULSE 89; RESP 16; TEMP 36.6; O2SAT 100; BMI 49.0
--- NOTE | 2019-05-28 01:08 | ED.VIS.GEN ---
History of Present Illness Chief Complaint: Wound Check Informant: Patient Current Severity: Mild Maximum Severity: Moderate Narrative: Patient has a large abdominal wound status post I&D of an abscess by Dr. Salamanca. She was seen in the wound center today where dressing was changed and wound was cleansed. At the half-way tonight they noted some bleeding along the inferior aspect of the dressing. - Past Medical History (1) Calciphylaxis Status: Chronic (2) Cutaneous abscess of abdominal wall Status: Chronic (3) Skin necrosis Status: Chronic (4) Anxiety and depression Status: Chronic (5) CIDP (chronic inflammatory demyelinating polyneuropathy) Status: Chronic (6) Chronic diastolic CHF (congestive heart failure) Status: Chronic (7) Chronic kidney disease Status: Chronic (8) DM2 (diabetes mellitus, type 2) Status: Chronic (9) ESRD (end stage renal disease) Status: Chronic (10) ESRD on dialysis Status: Chronic (11) HTN (hypertension) Status: Chronic (12) Hyperlipidemia Status: Chronic (13) Type 2 diabetes mellitus with other skin ulcer Status: Chronic Comment: nonhealing infected diabetic ulcerated abscesses right lateral abdominal wall Past Medical History - Allergies and Home Meds Allergies/Adverse Reactions: Allergies latex Allergy (Verified 05/28/19 00:25) Hives Sulfa (Sulfonamide Antibiotics) Allergy (Verified 05/28/19 00:25) Rash codeine Adverse Reaction (Verified 05/28/19 00:25) Confusion Primary Care Physician: Marcela Kerr MD [Primary Care Provider] - Doctors: Dr. Salamanca Surgical History: cholecystectomy, - - Letter tubal ligation, cholecystectomy, right upper extremity fistula placement and eventual ligation, bilateral upper chest dialysis catheters with right now left upper chest in place. Lives: Long-Term Smoking Status: Never smoker - Family History Maternal Family History: Family History (Last Updated 09/19/18 @ 07:27 by Rema Ocampo) Father Diabetes Mother Heart disease Family History: Reports: Cancer, Heart Disease Paternal Family History: Family History (Last Updated 09/19/18 @ 07:27 by Rema Ocampo) Father Diabetes Mother Heart disease Family History: Reports: Diabetes, Heart Disease, Hypertension Sibling Family History: Family History (Last Updated 09/19/18 @ 07:27 by Rema Ocamop) Father Diabetes Mother Heart disease Family History: Reports: Diabetes Review of Systems General: Denies: Chills, Fever Eyes: Denies: Visual changes - bilaterally ENT: Denies: Bilateral ear pain Cardiovascular: Denies: Chest pain Respiratory: Denies: Dyspnea Gastrointestinal: Reports: Abdominal pain - Abdominal wound Musculoskeletal: Denies: Extremity Pain Skin: Reports: Wounds Neurological: Reports: Weakness - Chronic extremity weakness. Denies: Headache Allergy: Denies: Uticaria Physical Exam Vital Signs/Narrative: Vital Signs Temp Pulse Resp BP Pulse Ox 05/28/19 00:14 97.8 F 89 16 127/81 H 100 Inital Vital Signs reviewed: Yes General: Well nourished, Well developed ENT: Moist mucous membranes Neck: Supple Cardiovascular: Regular rate, Regular rhythm Respiratory: No distress, CTA bilaterally Abdomen: Soft, - - Large abdominal wound of the lower abdomen. Gauze and tape over the majority of the wound are clean. She does have some dried blood noted on the inferior aspect of the wound and appears this was the source of the bleeding. Neurological: Alert, Oriented x3 Psychological: Normal affect Diagnostic/Tx/Re-eval - Medical Decision Making With the assistance of nurse at bedside dressing was taken down. Kerlix gauze was packed into the wound and covered by ABD pads. Inferior wound edge was carefully dressed. Tape was applied. On repeat evaluation she is had no further bleeding. She will be discharged back to [facility]. ED Disposition - Plan for ED Patient: Disposition: Home or Assisted Living Diagnosis: Visit for wound check Instructions: POST OP WOUND CHECK, Bleeding Additional Instructions: Follow-up with wound center as scheduled.
--- NOTE | 2019-05-28 02:14 | ED.RN ---
REPORT WAS CALLED BACK TO [facility] FROM [facility]. RN VERBALIZED UNDERSTANDING OF CARE GIVEN AT THE ER. NO FURTHER QUESTIONS OR REQUESTS
[2019-05-28 02:37] VITALS: RESP 18
== END 2019-05-28 02:38 | disposition home or self-care (01) ==
PROVIDERS: Emergency Provider Emergency Medicine; Family Provider Internal Medicine Geriatric Medicine; PCP Internal Medicine Geriatric Medicine
DX: Z48.00 Encounter for change or removal of nonsurgical wound dressing (principal); E11.22 Type 2 diabetes mellitus with diabetic chronic kidney disease; I13.2 Hypertensive heart and chronic kidney disease with heart failure and with stage 5 chronic kidney disease, or end stage renal disease; I50.32 Chronic diastolic (congestive) heart failure; N18.6 End stage renal disease; Z99.2 Dependence on renal dialysis; E78.5 Hyperlipidemia, unspecified; F41.9 Anxiety disorder, unspecified; F32.9 Major depressive disorder, single episode, unspecified; E11.622 Type 2 diabetes mellitus with other skin ulcer; G61.81 Chronic inflammatory demyelinating polyneuritis; Z79.4 Long term (current) use of insulin; Z79.01 Long term (current) use of anticoagulants; Z79.899 Other long term (current) drug therapy
CPT/HCPCS: 99284

== ENCOUNTER 2019-06-10 09:15 | Outpatient (RCR) | payer OTHER, MEDICAID, SELFPAY ==
[2019-05-27 09:33] VITALS: BP 161/77; PULSE 73; RESP 16; TEMP 36.5; BMI 45.7
--- NOTE | 2019-05-27 14:44 | PCM.WC.HP ---
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 Status: Chronic Code(s): L98.492 - Non-pressure chronic ulcer of skin of other sites with fat layer exposed (2) Abdominal panniculus, symptomatic Status: Chronic Code(s): E65 - Localized adiposity (3) ESRD on dialysis Status: Chronic Code(s): N18.6 - End stage renal disease; Z99.2 - Dependence on renal dialysis (4) Type 2 diabetes mellitus with other skin ulcer Status: Chronic Code(s): E11.622 - Type 2 diabetes mellitus with other skin ulcer; L98.499 - Non-pressure chronic ulcer of skin of other sites with unspecified severity Comment: nonhealing infected diabetic ulcerated abscesses right lateral abdominal wall (5) Morbid obesity Status: Chronic Code(s): E66.01 - Morbid (severe) obesity due to excess calories History of Present Illness Date of Service: 05/27/19 Chief Complaint: Lower right abdominal ulcer. History of Wound: On 04/25/2019 patient was admitted for an nonhealing infected diabetic necrotic ulcerated abscess of her right lateral abdominal wall. She is ESRD requiring dialysis. She has an abdominal panniculus suspect calciphylaxis of the right abdominal wall. On 04/26/2019 Dr. Salamanca took her to surgery for Surgical preparation right lateral abdominal wall with incision and drainage and excisional debridement skin and subcutaneous tissue and fascia nonhealing infected diabetic necrotic ulcerated abscesses necrotizing soft tissue infection (377 cm2) and abdominal panniculectomy. She was discharged on 05/03/2019 to [facility] with a wound VAC with 150 mmHg suction. She has not been to the wound center since discharge due to the [facility] not arranging proper transportation for her to attend. The [facility] stopped the wound VAC and had been doing Dakin's solution. Past Medical History Past Medical History: Chronic Problems (Last Updated 09/19/18 @ 07:24 by Rema Ocampo) Skin ulcer of abdominal wall with fat layer exposed (Chronic) Intertrigo (Chronic) abdominal wall skin crease intertrigo Abdominal panniculus, symptomatic (Chronic) Skin necrosis (Chronic) Calciphylaxis (Chronic) ESRD on dialysis (Chronic) Cutaneous abscess of abdominal wall (Chronic) Type 2 diabetes mellitus with other skin ulcer (Chronic) nonhealing infected diabetic ulcerated abscesses right lateral abdominal wall Anxiety and depression (Chronic) ESRD (end stage renal disease) (Chronic) Morbid obesity (Chronic) Chronic diastolic CHF (congestive heart failure) (Chronic) 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) Hyperlipidemia (Chronic) Chronic kidney disease (Chronic) HTN (hypertension) (Chronic) Obesity (Chronic) DM2 (diabetes mellitus, type 2) (Chronic) Surgical History: cholecystectomy, - - Letter tubal ligation, cholecystectomy, right upper extremity fistula placement and eventual ligation, bilateral upper chest dialysis catheters with right now left upper chest in place. Allergies/Adverse Reactions: Allergies latex Allergy (Verified 05/28/19 00:25) Hives Sulfa (Sulfonamide Antibiotics) Allergy (Verified 05/28/19 00:25) Rash codeine Adverse Reaction (Verified 05/28/19 00:25) Confusion Home Medications: Ambulatory Orders Medication Instructions Recorded Montelukast [Singulair] 10 mg PO DAILY 10/29/13 Sertraline HCl 125 mg PO DAILY 06/14/18 Pantoprazole Sodium [Protonix] 20 mg PO DAILY 06/20/18 Atorvastatin Calcium [Lipitor] 20 mg PO QHS 07/28/18 Insulin Lispro [Humalog Kwikpen] 18 unit SQ QHS 10/04/18 predniSONE tablet 30 mg PO 1200 10/04/18 Sevelamer Carbonate [Renvela] 3,600 mg PO TID 01/19/19 multivitamin tablet 1 tab PO DAILY 04/03/19 Insulin Lispro [Admelog Solostar] 25 unit SQ DAILY 04/25/19 Pregabalin [Lyrica] 150 mg PO Q12H 04/25/19 Apixaban [Eliquis] 5 mg PO BID #90 tab 05/03/19 Magnesium Hydroxide [Milk Of 30 ml PO DAILY PRN #1 udc 05/03/19 Magnesia] Amino AC/Protein Hydr/Whey Pro 30 ml PO BID 05/27/19 [Liquacel Liquid Protein] Amino AC/Protein Hydr/Whey Pro 30 ml PO TID 05/27/19 [Liquacel Liquid Protein] Arginine/Ascorbate Sod/Pedro AC 1 ea PO BID 05/27/19 [Arginaid Powder] Bisacodyl [Dulcolax] 10 mg RECTAL DAILY PRN PRN 05/27/19 Fentanyl 1 ea TD Q72H 05/27/19 Hydrocodone/Acetaminophen [Kearney 1 - 2 ea PO Q6H PRN 05/27/19 5-325 Tablet] Insulin Glargine,Hum.rec.anlog 60 unit SQ DAILY 05/27/19 [Basaglar Kwikpen U-100] Na Phos,M-B/Na Phos,Di-Ba [Fleet 1 bottle RECTAL DAILY PRN 05/27/19 Enema] Sennosides/Docusate Sodium [Senna 1 ea PO BID 05/27/19 Plus 8.6-50 mg Softgel] Mycophenolate Mofetil [Cellcept] 250 mg PO BID 05/28/19 Sodium Hypochlorite [Dakins 1 applic TOPICAL BID PRN PRN 05/28/19 Solution 0.25% (1/2 Strength)] - Family History Maternal Family History: Family History (Last Updated 09/19/18 @ 07:27 by Rema Ocampo) Father Diabetes Mother Heart disease Cancer, Heart Disease Paternal Family History: Family History (Last Updated 09/19/18 @ 07:27 by Rema Ocampo) Father Diabetes Mother Heart disease Diabetes, Heart Disease, Hypertension Sibling Family History: Family History (Last Updated 09/19/18 @ 07:27 by Rema Ocampo) Father Diabetes Mother Heart disease Diabetes Smoking Status: Never smoker Review of Systems Constitutional: Reports: Malaise Eyes: Denies: Pain, Vision Change HEENT: Denies: Difficulty Hearing, Difficulty Swallowing, Sinus Congestion Cardiovascular: Denies: Chest Pain, Palpitations Respiratory: Denies: Cough, Shortness of Breath Gastrointestinal: Denies: Diarrhea, Nausea, Vomiting Musculoskeletal: Reports: Joint stiffness Skin: Reports: Wounds - right lower lateral ulcer Neurological: Denies: Blurred vision Psychiatric: Reports: Anxiety, Depression Endocrine: Denies: Heat/ Cold Intolerance, Polydipsia, Polyuria Hematologic/ Lymphatic: Denies: Easy Bruising, Easy Bleeding - Physical Exam Vital Signs Temp Pulse Resp BP 97.7 F L 73 16 161/77 H 05/27/19 09:33 05/27/19 09:33 05/27/19 09:33 05/27/19 09:33 General: Alert, Oriented x3, Cooperative HEENT: Atraumatic Oral: Moist Mucosa Lungs: Clear to auscultation, Normal air movement Cardiovascular: Regular rate, Regular Rhythm Abdomen: Obese Extremities: Capillary Refill Less than 3 Seconds Skin: Ulcer/ Wound - right lower lateral abdomen Wound Measurements and Assessment - Nurse 1 - General Ulcer Measurement Start: 05/27/19 09:32 Freq: Status: Active Protocol: Activity Type Activity Date Activity User E-Sign Co-Sign Detail Recorded Client Recorded Date Recorded By Document 05/27/19 09:33 [facility] [id number] 05/27/19 09:49 [facility] 05/27/19 09:33 Wound Center Nurse 1 [Ulcer Assessment] #4- R LOWER ABD- POST OP -Combined with other wound No -Current Size (cm) - Length 8.3 -Current Size (cm) - Width 31.1 -Current Size (cm) - Depth 11.2 -Total Square Cm 258.13 -Date of Last Picture (Recall this 05/27/19 field) -Photo Taken Yes -Epithelialization None Present -Tunneling No -Undermining/Tunneling No -Circular Undermining No -Exudate Amt Large -Exudate Type Serosanguineous -Wound Margin Distinct, Outline Attached -Granulation Amt Large (67-100%) -Granulation Quality Red -Slough/Fibrin Yes -Necrosis Amt Small (1-33%) -Necrotic Tissue Type Adherent Slough -Texture (Leti-wound Skin Appearance) Assessed, Scarring -Moisture (Leti-wound Skin Appearance Assessed ) -Color (Leti-wound Skin Appearance) Assessed, Erythema -Temperature (Leti-wound Skin No Abnormality Appearance) (Pt Warm) -Tenderness on Palpation (Leti-wound Yes Skin Appearance) -Ulcer Cleansing SOAPY WATER -Foul Odor after Cleansing No -Anesthetic Used 4% Lidocaine Solution - Nurse 2 - General Ulcer CM Notes Start: 05/27/19 09:32 Freq: Status: Active Protocol: Activity Type Activity Date Activity User E-Sign Co-Sign Detail Recorded Client Recorded Date Recorded By Document 05/27/19 10:02 [id number] 05/27/19 10:16 05/27/19 10:02 Wound Center Nurse 2 [Procedure/Treatment] -Time 10:03 -Correct Patient Yes -Correct Side, Site, Position Yes -Correct Procedure Yes -Procedure Performed Yes -Type of Procedure Debridement -Clinical Debridement Subcutaneous -Post Debridement Size (cm) - Length 6.5 -Post Debridement Size (cm) - Width 31.2 -Post Debridement Size (cm) - Depth 7.5 -Total Square Cm 202.80 -Wound/Ulcer Outcome Not Healed -Ulcer Cleansing Rinsed/ Irrigated with Saline -Foul Odor after Cleansing No -Bioengineered Tissue No -Bleeding Controlled with Pressure -Offloading No -Treatment Response Procedure Tolerated Well [See Physician Procedure note for Specifics] Pain Scale: 0-10 Numeric [Pain] -Is Patient Pain Free? Yes Musculoskeletal: No Muscle Wasting Neurological: Neuro grossly intact Psych/Mental Status: Normal Affect, Appropriate Debridement Note Post-Debridement Measurements/Treatment WC - Nurse 2 - General Ulcer CM Notes Start: 05/27/19 09:32 Freq: Status: Active Protocol: Activity Type Activity Date Activity User E-Sign Co-Sign Detail Recorded Client Recorded Date Recorded By Document 05/27/19 10:02 MARIA GUADALUPE [id number] 05/27/19 10:16 MARIA GUADALUPE 05/27/19 10:02 Wound Center Nurse 2 #4- R LOWER ABD- POST OP -Time 10:03 -Correct Patient Yes -Correct Side, Site, Position Yes -Correct Procedure Yes -Procedure Performed Yes -Type of Procedure Debridement -Clinical Debridement Subcutaneous -Post Debridement Size (cm) - Length 6.5 -Post Debridement Size (cm) - Width 31.2 -Post Debridement Size (cm) - Depth 7.5 -Total Square Cm 202.80 -Wound/Ulcer Outcome Not Healed -Ulcer Cleansing Rinsed/ Irrigated with Saline -Foul Odor after Cleansing No -Bioengineered Tissue No -Bleeding Controlled with Pressure -Offloading No -Treatment Response Procedure Tolerated Well Pain Scale: 0-10 Numeric Is Patient Pain Free? Yes Wound debrided: Lower lateral abdomen Laterality: Right Type of Debridement: Excisional debridement Anesthesia Used: 5% Lidocaine Gel Depth: Down to and including healthy tissue, in the subcutaneous layer Percentage of wound debrided: 100 Instrument Used: 7mm curette Tissue Removed: Subcutaneous tissue and slough Severity: Fat Layer Exposed Amount of bleeding with debridement: Moderate Bleeding Controlled with: Pressure, Compression and gauze, Silver Nitrate - Silver nitrate was used to the right side of the right lower lateral abdomen ulcer where there was bleeding that was difficult to stop with compression Patient tolerated procedure well Assessment/Plan Assessment: 1. Skin ulcer of abdominal wall with fat layer exposure. 2. Abdominal panniculus. 3. Type 2 diabetes. 4. ESRD on dialysis. 5. Morbid obesity. Plan: Patient was seen and evaluated at the wound center today. She was subcutaneous debridement. She had some bleeding on the right lateral aspect of her right lower lateral abdominal ulcer that required compression and silver nitrate to help stop the bleeding. Patient tolerated procedure well. On 04/26/2019 Dr. Salamanca took her to surgery for Surgical preparation right lateral abdominal wall with incision and drainage and excisional debridement skin and subcutaneous tissue and fascia nonhealing infected diabetic necrotic ulcerated abscesses necrotizing soft tissue infection (377 cm2) and abdominal panniculectomy. She was discharged on 05/03/2019 to [facility] with a wound VAC with 150 mmHg suction. She has not been to the wound center since discharge due to the [facility] not arranging proper transportation for her to attend. The ECF stopped the wound VAC and has been doing Dakin's solution. We will restart the wound VAC at 150 mmHg suction. Follow-up in 1 week. Code Visit [id number]: 19097 Vicky subq tissue 20 sq cm/< Add On Codes: 32117 Vicky subq tissue add-on - x10
[2019-06-03 09:26] VITALS: BP 154/78; PULSE 94; RESP 18; TEMP 36.6; BMI 45.7
--- NOTE | 2019-06-03 17:51 | PCM.WC.PN ---
Type of Wound Date of Service: 06/03/19 Chief Complaint: Nonhealing diabetic ulcer right lower abdominal wall. History of Wound: Surgery 04/26/19 - Surgical preparation right lateral abdominal wall with incision and drainage and excisional debridement skin and subcutaneous tissue and fascia nonhealing infected diabetic necrotic ulcerated abscesses necrotizing soft tissue infection (377 cm2) and abdominal panniculectomy. Wound care - VAC. Operative culture - Proteus mirabilis, Pseudomonas aeroginosa, Staphylococcus aureus, and Anaerobic cocci. She was treated with Vancomycin and Zosyn in the hospital and was discharged on Cipro and Augmentin and has finished them. CT Abdomen/Pelvis from 04/25/19 showed 3.6 cm x 5.3 cm ill-defined soft tissue density in deep subcutaneous tissues overlying the posterior right lateral abdominal wall. The overlying skin is unremarkable.. Prealbumin from 04/29/19 was 19.1. Encouraged nutritional supplementation with protein to help the healing process. Today she denies fever. Her appetite is ok. Progress of Wound: Improved granulation with some medial fat necrosis. - Physical Exam Vital Signs Temp Pulse Resp BP 98 F 94 18 154/78 H 06/03/19 09:26 06/03/19 09:26 06/03/19 09:26 06/03/19 09:26 Wound Measurements and Assessment WC - Nurse 1 - General Ulcer Measurement Start: 05/27/19 09:32 Freq: Status: Active Protocol: Activity Type Activity Date Activity User E-Sign Co-Sign Detail Recorded Client Recorded Date Recorded By Document 06/03/19 09:26 DL [id number] 06/03/19 09:35 DL 06/03/19 09:26 Wound Center Nurse 1 [Ulcer Assessment] #4- R LOWER ABD- POST OP -Current Size (cm) - Length 7.5 -Current Size (cm) - Width 31 -Current Size (cm) - Depth 7.9 -Total Square Cm 232.5 -Photo Taken Yes -Exudate Amt Large -Exudate Type Serosanguineous -Wound Margin Distinct, Outline Attached -Granulation Amt Medium (34-66%) -Granulation Quality Red -Necrosis Amt Medium (34-66%) -Necrotic Tissue Type Adherent Slough -Structure Exposed N/A -Texture (Leti-wound Skin Appearance) No Abnormality -Moisture (Leti-wound Skin Appearance No Abnormality ) -Color (Leti-wound Skin Appearance) No Abnormality -Temperature (Leti-wound Skin No Abnormality Appearance) (Pt Warm) -Tenderness on Palpation (Leti-wound No Skin Appearance) -Ulcer Cleansing Wound Cleanser -Foul Odor after Cleansing No -Anesthetic Used 4% Lidocaine Solution - Nurse 2 - General Ulcer CM Notes Start: 05/27/19 09:32 Freq: Status: Active Protocol: Activity Type Activity Date Activity User E-Sign Co-Sign Detail Recorded Client Recorded Date Recorded By Document 06/03/19 10:05 [id number] 06/03/19 10:07 06/03/19 10:05 Wound Center Nurse 2 [Procedure/Treatment] -Time 10:06 -Correct Patient Yes -Correct Side, Site, Position Yes -Correct Procedure Yes -Procedure Performed Yes -Type of Procedure Debridement -Clinical Debridement Subcutaneous -Post Debridement Size (cm) - Length 7.5 -Post Debridement Size (cm) - Width 31.1 -Post Debridement Size (cm) - Depth 8 -Total Square Cm 233.25 -Wound/Ulcer Outcome Not Healed -Ulcer Cleansing Rinsed/ Irrigated with Saline -Foul Odor after Cleansing No -Bioengineered Tissue No -Bleeding Controlled with Pressure -Offloading No -Treatment Response Procedure Tolerated Well [See Physician Procedure note for Specifics] Pain Scale: 0-10 Numeric [Pain] -Is Patient Pain Free? Yes Debridement Note Post-Debridement Measurements/Treatment - Nurse 2 - General Ulcer CM Notes Start: 05/27/19 09:32 Freq: Status: Active Protocol: Activity Type Activity Date Activity User E-Sign Co-Sign Detail Recorded Client Recorded Date Recorded By Document 05/27/19 10:02 [id number] 05/27/19 10:16 Document 06/03/19 10:05 [id number] 06/03/19 10:07 05/27/19 06/03/19 10:02 10:05 Wound Center Nurse 2 #4- R LOWER ABD- POST OP -Time 10:03 10:06 -Correct Patient Yes Yes -Correct Side, Site, Position Yes Yes -Correct Procedure Yes Yes -Procedure Performed Yes Yes -Type of Procedure Debridement Debridement -Clinical Debridement Subcutaneous Subcutaneous -Post Debridement Size (cm) - Length 6.5 7.5 -Post Debridement Size (cm) - Width 31.2 31.1 -Post Debridement Size (cm) - Depth 7.5 8 -Total Square Cm 202.80 233.25 -Wound/Ulcer Outcome Not Healed Not Healed -Ulcer Cleansing Rinsed/ Rinsed/ Irrigated with Irrigated with Saline Saline -Foul Odor after Cleansing No No -Bioengineered Tissue No No -Bleeding Controlled with Pressure Pressure -Offloading No No -Treatment Response Procedure Procedure Tolerated Well Tolerated Well Pain Scale: 0-10 Numeric Is Patient Pain Free? Yes Yes Wound debrided: #4 Right lower abdominal wall. Laterality: Right Wound Grade/Stage: 2. Type of Debridement: Excisional debridement Anesthesia Used: 4% Lidocaine Solution Depth: Down to and including healthy tissue, in the subcutaneous layer Percentage of wound debrided: 100 Instrument Used: 7mm curette, - - scissors. Tissue Removed: subcutaneous tissue and residual hematoma at base of wound. Severity: Fat Layer Exposed Amount of bleeding with debridement: Mild Bleeding Controlled with: Pressure Patient tolerated procedure well Assessment/Plan Assessment: 1. 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 2. Painful insulin nodules abdominal wall. 3. Diabetes mellitus. 4. ESRD requiring dialysis. 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 6. Abdominal panniculus. 7. Abdominal wall skin crease intertrigo. 8. s/p surgical preparation right lateral abdominal wall with incision and drainage and excisional debridement skin and subcutaneous tissue and fascia nonhealing infected diabetic necrotic ulcerated abscesses necrotizing soft tissue infection (377 cm2) and abdominal panniculectomy. Plan: Will stop the VAC and resume the Dakin's dressing changes twice a day. There was some medial fat necrosis that was debrided today. A wound culture was obtained. A positive culture will necessitate antibiotic therapy. At the base of the wound was a residual hematoma that was removed today. She had been on Augmentin and Cipro for operative cultures that showed Proteus mirabilis, Pseudomonas aeroginosa, Staphylococcus aureus, and Anaerobic cocci. The antibiotics have been stopped. Prealbumin from 04/29/19 was 19.1. Encouraged nutritional supplementation with protein to help the healing process. Discussed with the patient that if she continues to develop fat necrosis at in the wound, she may need additional operative debridement depending on how well it can debrided at the Wound Center. She voices understanding. As long as she does pressure releases, the patient can be up in a chair. Followup one week. Code Visit Wound Center Charges CPT - 35830 ICD-10 - V58.49, E11.622, I96, L02.211, M79.89, R10.9, T88.9xxA, N18.6, E83.59, E65, L30.4
[2019-06-10 09:02] VITALS: BP 110/68; PULSE 90; RESP 18; TEMP 36.3; BMI 45.7
--- NOTE | 2019-06-10 15:45 | PN.PCM_ITS ---
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 Status: Chronic Code(s): L98.492 - Non-pressure chronic ulcer of skin of other sites with fat layer exposed (2) Abdominal panniculus, symptomatic Status: Chronic Code(s): E65 - Localized adiposity (3) ESRD on dialysis Status: Chronic Code(s): N18.6 - End stage renal disease; Z99.2 - Dependence on renal dialysis (4) Type 2 diabetes mellitus with other skin ulcer Status: Chronic Code(s): E11.622 - Type 2 diabetes mellitus with other skin ulcer; L98.499 - Non-pressure chronic ulcer of skin of other sites with unspecified severity Comment: nonhealing infected diabetic ulcerated abscesses right lateral abdominal wall (5) Morbid obesity Status: Chronic Code(s): E66.01 - Morbid (severe) obesity due to excess calories Type of Wound Date of Service: 06/10/19 Chief Complaint: Nonhealing diabetic ulcer right lower abdominal wall. History of Wound: Surgery 04/26/19 - Surgical preparation right lateral abdominal wall with incision and drainage and excisional debridement skin and subcutaneous tissue and fascia nonhealing infected diabetic necrotic ulcerated abscesses n ecrotizing soft tissue infection (377 cm2) and abdominal panniculectomy. Wound care - Dakin's solution daily and prn. Operative culture - Proteus mirabilis, Pseudomonas aeroginosa, Staphylococcus aureus, and Anaerobic cocci. She was treated with Vancomycin and Zosyn in the hospital and was discharged on Cipro and Augmentin and has finished them. Wound culture from 06/03/19 positive for Proteus mirabilis, Corynebacterium striatum, Conrynebacterium amycolatum. Started on renal dosing of Levaquin every 48 hours. Anaerobic cultures pending. CT Abdomen/Pelvis from 04/25/19 showed 3.6 cm x 5.3 cm ill-defined soft tissue density in deep subcutaneous tissues overlying the posterior right lateral abdominal wall. The overlying skin is unremarkable.. Prealbumin from 04/29/19 was 19.1. Encouraged nutritional supplementation with protein to help the healing process. Today she denies fever. Her appetite is ok. Progress of Wound: Improved granulation. - Physical Exam Vital Signs Temp Pulse Resp BP 97.3 F L 90 18 110/68 06/10/19 09:02 06/10/19 09:02 06/10/19 09:02 06/10/19 09:02 General: Alert, Oriented x3, Cooperative HEENT: Atraumatic Oral: Moist Mucosa Lungs: Normal air movement Cardiovascular: Regular rate Abdomen: Soft, Obese Extremities: Capillary Refill Less than 3 Seconds Skin: Ulcer/ Wound - Right lower abdomen ulcer Wound Measurements and Assessment - Nurse 1 - General Ulcer Measurement Start: 05/27/19 09:32 Freq: Status: Active Protocol: Activity Type Activity Date Activity User E-Sign Co-Sign Detail Recorded Client Recorded Date Recorded By Document 06/10/19 09:02 [facility] [id number] 06/10/19 09:06 [facility] 06/10/19 09:02 Wound Center Nurse 1 [Ulcer Assessment] #4- R LOWER ABD- POST OP -Combined with other wound No -Current Size (cm) - Length 8.7 -Current Size (cm) - Width 30 -Current Size (cm) - Depth 6.8 -Total Square Cm 261.0 -Photo Taken No -Epithelialization None Present -Tunneling No -Undermining/Tunneling No -Circular Undermining No -Exudate Amt Large -Exudate Type Serosanguineous -Wound Margin Distinct, Outline Attached -Granulation Amt Large (67-100%) -Granulation Quality Red -Slough/Fibrin Yes -Necrosis Amt Small (1-33%) -Necrotic Tissue Type Eschar -Texture (Leti-wound Skin Appearance) Assessed, Scarring -Moisture (Leti-wound Skin Appearance Assessed ) -Color (Leti-wound Skin Appearance) Assessed -Temperature (Leti-wound Skin No Abnormality Appearance) (Pt Warm) -Tenderness on Palpation (Leti-wound No Skin Appearance) -Ulcer Cleansing soapy water -Foul Odor after Cleansing No -Anesthetic Used 4% Lidocaine Solution - Nurse 2 - General Ulcer CM Notes Start: 05/27/19 09:32 Freq: Status: Active Protocol: Activity Type Activity Date Activity User E-Sign Co-Sign Detail Recorded Client Recorded Date Recorded By Document 06/10/19 09:44 [id number] 06/10/19 09:54 06/10/19 09:44 Wound Center Nurse 2 [Procedure/Treatment] -Time 09:44 -Correct Patient Yes -Correct Side, Site, Position Yes -Correct Procedure Yes -Procedure Performed Yes -Type of Procedure Debridement -Clinical Debridement Subcutaneous -Post Debridement Size (cm) - Length 5.5 -Post Debridement Size (cm) - Width 31.5 -Post Debridement Size (cm) - Depth 8.0 -Total Square Cm 173.25 -Wound/Ulcer Outcome Not Healed -Ulcer Cleansing Rinsed/ Irrigated with Saline -Foul Odor after Cleansing No -Bioengineered Tissue No -Bleeding Controlled with Pressure -Offloading No -Treatment Response Procedure Tolerated Well [See Physician Procedure note for Specifics] Pain Scale: 0-10 Numeric [Pain] -Is Patient Pain Free? Yes Musculoskeletal: No Muscle Wasting Neurological: Neuro grossly intact Psych/Mental Status: Normal Affect, Appropriate Debridement Note Post-Debridement Measurements/Treatment WC - Nurse 2 - General Ulcer CM Notes Start: 05/27/19 09:32 Freq: Status: Active Protocol: Activity Type Activity Date Activity User E-Sign Co-Sign Detail Recorded Client Recorded Date Recorded By Document 05/27/19 10:02 [id number] 05/27/19 10:16 Document 06/03/19 10:05 [id number] 06/03/19 10:07 Document 06/10/19 09:44 [id number] 06/10/19 09:54 05/27/19 06/03/19 06/10/19 10:02 10:05 09:44 Wound Center Nurse 2 #4- R LOWER ABD- POST OP -Time 10:03 10:06 09:44 -Correct Patient Yes Yes Yes -Correct Side, Site, Position Yes Yes Yes -Correct Procedure Yes Yes Yes -Procedure Performed Yes Yes Yes -Type of Procedure Debridement Debridement Debridement -Clinical Debridement Subcutaneous Subcutaneous Subcutaneous -Post Debridement Size (cm) - Length 6.5 7.5 5.5 -Post Debridement Size (cm) - Width 31.2 31.1 31.5 -Post Debridement Size (cm) - Depth 7.5 8 8.0 -Total Square Cm 202.80 233.25 173.25 -Wound/Ulcer Outcome Not Healed Not Healed Not Healed -Ulcer Cleansing Rinsed/ Rinsed/ Rinsed/ Irrigated with Irrigated with Irrigated with Saline Saline Saline -Foul Odor after Cleansing No No No -Bioengineered Tissue No No No -Bleeding Controlled with Pressure Pressure Pressure -Offloading No No No -Treatment Response Procedure Procedure Procedure Tolerated Well Tolerated Well Tolerated Well Pain Scale: 0-10 Numeric Is Patient Pain Free? Yes Yes Yes Wound debrided: Lower abdominal ulcer Laterality: Right Type of Debridement: Excisional debridement Anesthesia Used: 4% Lidocaine Solution Depth: Down to and including healthy tissue, in the subcutaneous layer Percentage of wound debrided: 100 Instrument Used: 7mm curette Tissue Removed: Subcutaneous tissue and slough Severity: Fat Layer Exposed Amount of bleeding with debridement: Mild Bleeding Controlled with: Pressure Patient tolerated procedure well Assessment/Plan Assessment: 1. 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 2. Painful insulin nodules abdominal wall. 3. Diabetes mellitus. 4. ESRD requiring dialysis. 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 6. Abdominal panniculus. 7. Abdominal wall skin crease intertrigo. 8. s/p surgical preparation right lateral abdominal wall with incision and drainage and excisional debridement skin and subcutaneous tissue and fascia nonhealing infected diabetic necrotic ulcerated abscesses necrotizing soft tissue infection (377 cm2) and abdominal panniculectomy. Plan: Will stop the VAC and resume the Dakin's dressing changes daily and prn. There is not as much fat necrosis present today. The Dakin's solution is helping the wound bed look beefy red. A wound culture was obtained on 06/03/2019 which was positive for Proteus mirabilis, Corynebacterium striatum, Corynebacterium amycolatum. Started on renal dosing of Levaquin. Anaerobic pending. She had been on Augmentin and Cipro for operative cultures that showed Proteus mirabilis, Pseudomonas aeroginosa, Staphylococcus aureus, and Anaerobic cocci. Prealbumin from 04/29/19 was 19.1. Encouraged nutritional supplem entation with protein to help the healing process. Discussed with the patient that if she continues to develop fat necrosis at in the wound, she may need additional operative debridement depending on how well it can debrided at the Wound Center. She voices understanding. As long as she does pressure releases, the patient can be up in a chair. Followup two weeks. Code Visit 56846
== END 2019-06-18 23:59 ==
LOC: WC 09:15
PROVIDERS: Family Provider Internal Medicine Geriatric Medicine; PCP Internal Medicine Geriatric Medicine; Visit Provider Nurse Practitioner Family
DX: E11.622 Type 2 diabetes mellitus with other skin ulcer (principal); E11.22 Type 2 diabetes mellitus with diabetic chronic kidney disease; N18.6 End stage renal disease; L98.492 Non-pressure chronic ulcer of skin of other sites with fat layer exposed; E65 Localized adiposity; E66.01 Morbid (severe) obesity due to excess calories; E83.59 Other disorders of calcium metabolism; G61.81 Chronic inflammatory demyelinating polyneuritis; E78.5 Hyperlipidemia, unspecified; I50.32 Chronic diastolic (congestive) heart failure; L30.4 Erythema intertrigo; I13.2 Hypertensive heart and chronic kidney disease with heart failure and with stage 5 chronic kidney disease, or end stage renal disease; Z79.899 Other long term (current) drug therapy; Z99.2 Dependence on renal dialysis; Z68.42 Body mass index [BMI] 45.0-49.9, adult; Z71.3 Dietary counseling and surveillance; Z79.4 Long term (current) use of insulin; Z79.01 Long term (current) use of anticoagulants
CPT/HCPCS: 11042; 11045; 87070; 87075; 87077; 87176; 87186; 87205; 99213; G0463

== ENCOUNTER 2019-06-16 11:54 | Emergency (ER) | payer OTHER, MEDICAID, SELFPAY ==
[2019-06-16 11:54] VITALS: BMI 49.0
[2019-06-16 11:57] VITALS: BP 119/63; PULSE 81; RESP 18; TEMP 36.6; O2SAT 98; BMI 47.5
--- NOTE | 2019-06-16 12:31 | VDUE_ITS ---
Reason For Study: Swelling Right Proximal Right jugular vein is spontaneous, widely patent, phasic, with no intraluminal echogenicity noted. Right subclavian vein is spontaneous, widely patent, phasic, with no intraluminal echogenicity noted. Right Lower Arm Right radial vein is compressible. Right ulnar vein is compressible. Right Arm Right axillary vein is spontaneous, patent, phasic, competent, compressible and demonstrates augmentation. Right brachial vein is compressible. Right cephalic vein is compressible. Right basilic vein is compressible. Patient Safety Prelim to Sahil. Interpretation Summary Deep veins of the right upper extremity are patent and compressible segmentally. There is no evidence of deep vein thrombosis. The superficial veins of the right upper extremity, the basilic and cephalic veins, are patent and compressible. There is no evidence of right upper extremity superficial thrombophlebitis involving the veins imaged. Ordering Physician: Amor Baxter Referring Physician: Marcela Lassiter Performed By: Heather Castellano RVT ?
--- NOTE | 2019-06-16 12:32 | EKG12_ITS ---
Test Reason : DYSRHYTHMIA Blood Pressure : / mmHG Vent. Rate : 073 BPM Atrial Rate : 073 BPM P-R Int : 160 ms QRS Dur : 092 ms QT Int : 406 ms P-R-T Axes : 029 -04 039 degrees QTc Int : 447 ms Normal sinus rhythm Minimal voltage criteria for LVH, may be normal variant Borderline ECG Confirmed by KELLEY KRUSE, MASOOD ([id number]), index editor ADRIEN FARRIS ([id number]) on 06/18/2019 9:41:42 AM Referred By: RAMO Confirmed By:MASOOD BENSON MD
[2019-06-16 12:59] LABS: Absolute Lymphocyte Count 0.83 X10^3/uL (0.83-4.51); Absolute Neutrophil Count 10.2 X10^3/uL (2.0-7.7); Basophil# 0.02 X10^3/uL; Basophil% 0.2 % (0-1); Hematocrit 28.7 % (37-47); Hemoglobin 8.7 g/dL (12.0-15.0); Lymphocyte # 0.83 X10^3/ul (4.0); Lymphocyte % 6.8 % (19-41); Mean Corp Hgb Conc 30.3 g/dL (32-36); Mean Corpuscular Hgb 28.7 pg (27.0-32.0); Mean Corpuscular Volume 94.7 fL (81-99); Mean Platelet Vol. 10.8 fl (6.2-12.0); Monocyte# 0.66 X10^3/uL; Monocyte% 5.4 % (0-10); NRBC Flagged by Analyzer 0.7 % (0-5); Neutrophil # 10.24 X10^3/uL (2.7-7.7); Neutrophil % 83.6 % (47-70); Platelet Count 170 K/mm3 (150-450); RBC Distribution Width CV 18.5 % (11.6-14.6); RBC Distribution Width SD 58.2 fl (35.1-43.9); Red Blood Count 3.03 M/mm3 (4.2-5.4); White Blood Count 12.2 K/mm3 (4.4-11.0)
[2019-06-16 13:05] LABS: International Normalized Ratio 1.7; Prothrombin Time (Protime)PT. 20.1 SECONDS (11.7-14.9)
--- NOTE | 2019-06-16 13:11 | ED.VISSUMM ---
- ER Visit Summary Date of Service: 06/16/19 Chief Complaint: Constipation, nausea, vomiting, right arm swelling, and left leg pain History of Present Illness: The patient is a 59 F who presents with constipation that began 3 days ago. Patient lives in an extended care facility. Patient had an enema and laxatives which had good results. Patient states that today she started having some nausea and vomiting. Patient also noted some swelling to her right arm. Patient denies any fevers or chills. Patient denies any hematemesis or coffee-ground emesis. Patient also admits to some burning pain in her left leg. Patient states her left leg feels heavy. Patient has a history of neuritis. Patient admits to generalized body aches. Physical Examination: Vital signs are stable. Patient is afebrile. Patient is in no acute distress. Oral mucosa is pink and moist. Neck is supple. Trachea is midline. There is no JVD. Heart was regular rate and rhythm. Lungs are clear and equal bilaterally. Abdomen is soft. Bowel sounds are normal. There is mild diffuse tenderness. There is no rebound or guarding noted. Cranial nerves II through XII are intact. Strength is 5/5 bilateral in the upper and lower extremities. There are no sensory deficits noted. Extremities are intact. There is trace edema of the right upper extremity compared to the left. Radial pulses are equal bilaterally. There is no edema of the lower extremities. Pedal pulses are equal bilaterally. Test Results: CBC shows a mild leukocytosis of 12.2. Hemoglobin was 8.7. This was consistent with prior results. BUN was 34 and creatinine was 3.19. These are also consistent with prior results. INR is 1.7. PTT was 38. Troponin was slightly elevated at 0.034. BNP is normal at 99.2. EKG showed normal sinus rhythm with a rate of 73. There are no acute ST or T wave changes. PA and lateral chest x-ray was obtained. There is no acute cardiopulmonary process. This was interpreted by the radiologist and myself. Venous duplex of the right upper extremity was obtained. There is no evidence of DVT. Emergency Department Course and Treatment: Patient was feeling somewhat better on reevaluation. Patient was instructed to keep her right arm elevated. Patient was advised that her edema may be related to her fistula surgery and ligation. Patient was instructed to follow-up with her primary care physician in 5 to 7 days. Patient understood and was agreeable with the plan. All questions were answered. Disposition: Discharge to extended care facility Impression: 1. Right upper extremity edema 2. Nausea and vomiting This note was generated with [employer] dictation software. It may contain incorrect words, spelling, and punctuation that were not noted in review of the chart prior to signing ED Disposition - Plan for ED Patient: Disposition: Non-Skill [facility]/Intermediate Care Diagnosis: Edema of upper extremity, Nausea and vomiting Instructions: ED Peripheral Edema, Unilateral, VOMITING (8y-Adult) Referrals: Marcela Kerr MD [Primary Care Provider] - 3-5 Days
[2019-06-16 13:15] LABS: ALB/GLOB Ratio 0.9 RATIO (0.9-2.4); AST(SGOT) 21 U/L (15-37); Alanine Aminotransfer ALT/SGPT 27 U/L (13-56); Albumin, Serum 2.7 g/dL (3.2-5.0); Alkaline Phosphatase 94 U/L (45-117); Anion Gap 5 (5-15); BUN 34 mg/dL (7-18); BUN/Creat Ratio 10.7 RATIO (10-20); Calcium,Total 8.9 mg/dL (8.5-10.1); Chloride 99 mmol/L (98-107); Creatinine, Serum 3.19 mg/dL (0.55-1.02); EST Glomerular Filtration Rate 16 mL/min (>60); Est Glom Filt Rate - Afr Amer 19 mL/min (>60); Globulin 2.9 g/dL (2.2-4.2); Glucose 86 mg/dL (74-106); Potassium 4.7 mmol/L (3.5-5.1); Protein, Total 5.6 g/dL (6.4-8.2); Sodium Level 137 mmol/L (136-145)
[2019-06-16 13:25] LABS: BNP,B-Type NATRIURETIC PEPTIDE 99.2 pg/mL (0-100)
--- NOTE | 2019-06-16 14:03 | RAD_ITS ---
STUDY: X-RAY CHEST REASON FOR EXAM: Female, 59 years old. SOB; -- H/O HEART FAILURE TECHNIQUE: PA and lateral views of the chest. COMPARISON: 10/30/2018 FINDINGS: Left jugular dialysis catheter present with tip extending to the lower SVC. Patient is rotated. EKG leads project over the chest. The lungs are clear and expanded. There is no demonstrated pleural abnormality. There is mild cardiac enlargement. Normal mediastinum and adam. Chronic vascular congestion noted. There is atherosclerotic tortuosity of the aortic arch and descending thoracic aorta. No acute bony process. There is no demonstrated abnormality of the visualized soft tissue structures of the upper abdomen. RAD/Chest PA and Lateral IMPRESSION: 1. No airspace consolidation. 2. Chronic vascular congestion/fluid overload. Electronically Signed: Hiram Mas MD ([place]) at 15:25 EST , Service support ,
[2019-06-16 15:41] VITALS: PULSE 91; RESP 19; O2SAT 98
--- NOTE | 2019-06-16 17:58 | NURSING ---
the pt is waiting for a ride home. according to the trade union secretary she is unable to call for a ride until after 7 pm, the pt is made aware.
[2019-06-16 19:59] VITALS: BP 128/73; PULSE 100; RESP 16; O2SAT 94
== END 2019-06-16 20:00 | disposition intermediate care facility (04) ==
PROVIDERS: Emergency Provider Emergency Medicine; Family Provider Internal Medicine Geriatric Medicine; PCP Internal Medicine Geriatric Medicine
DX: M79.89 Other specified soft tissue disorders (principal); R11.2 Nausea with vomiting, unspecified; K59.00 Constipation, unspecified; M79.605 Pain in left leg; E11.22 Type 2 diabetes mellitus with diabetic chronic kidney disease; I13.0 Hypertensive heart and chronic kidney disease with heart failure and stage 1 through stage 4 chronic kidney disease, or unspecified chronic kidney disease; I50.9 Heart failure, unspecified; M79.2 Neuralgia and neuritis, unspecified; N18.9 Chronic kidney disease, unspecified; F32.9 Major depressive disorder, single episode, unspecified; F41.9 Anxiety disorder, unspecified; Z79.01 Long term (current) use of anticoagulants; Z79.4 Long term (current) use of insulin; Z79.52 Long term (current) use of systemic steroids; Z79.899 Other long term (current) drug therapy
CPT/HCPCS: 71046; 80053; 83880; 84484; 85025; 85610; 85730; 93005; 93971; 99285; A4216

== ENCOUNTER 2019-06-27 17:27 | Emergency (ER) | payer OTHER, MEDICAID, SELFPAY ==
[2019-06-24 09:32] VITALS: BMI 47.5
[2019-06-27 17:27] VITALS: BP 122/73; PULSE 95; RESP 18; TEMP 36.7; O2SAT 98
[2019-06-27 17:28] VITALS: BP 122/73; PULSE 92; RESP 22; TEMP 36.8; O2SAT 98; BMI 47.8
[2019-06-27 17:31] VITALS: BP 122/73; PULSE 91; RESP 18; TEMP 36.7; O2SAT 100
--- NOTE | 2019-06-27 17:38 | EKG12_ITS ---
Test Reason : Blood Pressure : / mmHG Vent. Rate : 086 BPM Atrial Rate : 086 BPM P-R Int : 146 ms QRS Dur : 088 ms QT Int : 386 ms P-R-T Axes : 026 -09 074 degrees QTc Int : 461 ms Normal sinus rhythm Moderate voltage criteria for LVH, may be normal variant Cannot rule out Septal infarct , age undetermined Abnormal ECG Confirmed by CORDELIA KRUSE, DORINA ([id number]), sports editor ADRIEN FARRIS ([id number]) on 07/01/2019 10:15:51 AM Referred By: VIMAL Confirmed By:DORINA STOREY MD
--- NOTE | 2019-06-27 17:41 | ED.VIS.GEN ---
History of Present Illness Chief Complaint: General Illness Informant: Patient Onset: Today Narrative: Patient presents with generalized malaise and sweats at dialysis. She states she has not been feeling the greatest over the past couple of days. At dialysis today she broke out in sweats. She states she was told her temperature is 99 point something. She was not given anything for fever. She has had dry cough recently. She has a chronic ongoing lower abdominal wound that is being followed at the wound center. - Past Medical History (1) Abdominal panniculus, symptomatic Status: Chronic (2) Anxiety and depression Status: Chronic (3) CIDP (chronic inflammatory demyelinating polyneuropathy) Status: Chronic (4) Calciphylaxis Status: Chronic (5) Chronic diastolic CHF (congestive heart failure) Status: Chronic (6) Chronic kidney disease Status: Chronic (7) DM2 (diabetes mellitus, type 2) Status: Chronic (8) ESRD (end stage renal disease) Status: Chronic (9) HTN (hypertension) Status: Chronic (10) Hyperlipidemia Status: Chronic Past Medical History - Allergies and Home Meds Allergies/Adverse Reactions: Allergies latex Allergy (Verified 06/16/19 12:00) Hives Sulfa (Sulfonamide Antibiotics) Allergy (Verified 06/16/19 12:00) Rash codeine Adverse Reaction (Verified 06/16/19 12:00) Confusion Primary Care Physician: Marcela Kerr MD [Primary Care Provider] - Prior records reviewed: Yes Surgical History: cholecystectomy, - - Letter tubal ligation, cholecystectomy, right upper extremity fistula placement and eventual ligation, bilateral upper chest dialysis catheters with right now left upper chest in place. Lives: [facility] Smoking Status: Unknown if ever smoked - Family History Maternal Family History: Family History (Last Updated 09/19/18 @ 07:27 by Rema Ocampo) Father Diabetes Mother Heart disease Family History: Reports: Cancer, Heart Disease Paternal Family History: Family History (Last Updated 09/19/18 @ 07:27 by Rema Ocampo) Father Diabetes Mother Heart disease Family History: Reports: Diabetes, Heart Disease, Hypertension Sibling Family History: Family History (Last Updated 09/19/18 @ 07:27 by Rema Ocampo) Father Diabetes Mother Heart disease Family History: Reports: Diabetes Review of Systems General: Reports: Fever - Temperature 99 point something at the dialysis center today.. Denies: Chills Eyes: Denies: Visual changes - bilaterally ENT: Denies: Bilateral ear pain Cardiovascular: Denies: Chest pain, Palpitations Respiratory: Reports: Cough. Denies: Dyspnea Gastrointestinal: Denies: Vomiting, Diarrhea Musculoskeletal: Reports: Myalgias, Swelling Skin: Reports: Wounds. Denies: Rash Neurological: Denies: Headache Allergy: Denies: Uticaria Physical Exam Vital Signs/Narrative: Vital Signs Temp Pulse Resp BP Pulse Ox 06/27/19 17:31 98.1 F 91 18 122/73 H 100 06/27/19 17:28 98.2 F 92 22 H 122/73 H 98 06/27/19 17:27 98.1 F 95 18 122/73 H 98 Inital Vital Signs reviewed: Yes General: Well nourished, Well developed Head: Normocephalic ENT: Moist mucous membranes Neck: Supple Cardiovascular: Regular rate, Regular rhythm Respiratory: No distress, CTA bilaterally Abdomen: Soft, - - Healing lower abdominal wound. Extremities: - - 3+ edema lower extremities. Skin: Normal color Neurological: Alert, Oriented x3 Psychological: Normal affect Diagnostic/Tx/Re-eval Impressions Chest X-Ray 06/27/19 17:45 IMPRESSION: No acute cardiopulmonary process. Electronically Signed: Leatha Davis MD at 17:58 EST Tel , Service support , 06/27/19 17:45 Chest 1 View (Portable) [RAD] Stat Laboratory Results 06/27/19 06/27/19 06/27/19 17:31 17:31 17:31 WBC 10.2 RBC 3.83 L Hgb 10.5 L Hct 35.3 L MCV 92.2 MCH 27.4 MCHC 29.7 L RDW Std Deviation 59.0 H RDW Coeff of [place] 18.3 H Plt Count 195 MPV 11.8 Neut % (Auto) Not Reportable Absolute Neuts (auto) 8.7 H Absolute Lymphs (auto) 0.51 L Total Counted 100 Neutrophils % (Manual) 81 H Band Neutrophils % 4 Lymphocytes % (Manual) 5 L Monocytes % (Manual) 2 Metamyelocytes % 3 H Myelocytes % 5 H Nucleated RBCs/100 WBC 2 Diff Path Review May foll Platelet Estimate ADEQUATE Polychromasia RARE Anisocytosis RARE Macrocytosis RARE Sodium 138 Potassium 4.1 Chloride 102 Carbon Dioxide 32.0 Anion Gap 4 L BUN 20 H Creatinine 2.37 H Estim Creat Clear Calc 21.66 Est GFR (MDRD) Af Amer 27 L Est GFR (MDRD) Non-Af 22 L BUN/Creatinine Ratio 8.4 L Glucose 224 H Lactic Acid 1.6 Calcium 8.9 - Medical Decision Making She had blood work and chest x-ray performed here. Chest x-ray shows changes consistent of viral infection. Abdominal wound dressing is changed by myself and nurse. Wound edges are clean. Blood cultures were sent and patient was advised that prelim report should be available those tomorrow. On review of her medication regimen she is already on Levaquin and Augmentin. If her blood cultures are positive she will be called to come back for IV antibiotics. Patient does comment that she feels very constipated from her pain medication. On review of her records I do not see anything for bowel regimen. I will write her prescription for Colace. When nurse called report to the ECF I will recommend if she does not get good results to contact her physician for further orders. ED Disposition - Plan for ED Patient: Disposition: Home or Assisted Living Diagnosis: Viral syndrome Instructions: VIRAL SYNDROME (Adult), CONSTIPATION (Adult) Prescriptions: Docusate Sodium [Colace] 100 mg PO DAILY #20 capsule Referrals: Marcela Kerr MD [Primary Care Provider] -
--- NOTE | 2019-06-27 17:45 | RAD_ITS ---
STUDY: X-RAY CHEST REASON FOR EXAM: Female, 59 years old. PT AT DIALYSIS AND DID NOT FEEL WELL. LOW BP AND ELEVATED HR WITH ELEVATED TEMP PER DIALYSIS TECHNIQUE: Single frontal view of the chest. COMPARISON: June 16, 2019 FINDINGS: There are low lung volumes. There is no new focal consolidation. There are stable prominent interstitial markings. There is a dialysis catheter in place terminating within the superior vena cava. Normal size heart. Normal mediastinum and adam. Normal visualized pulmonary arteries. Normal visualized aortic arch and descending thoracic aorta. Normal visualized thoracic spine. Normal visualized ribs, clavicles, and shoulders. There is no demonstrated abnormality of the visualized soft tissue structures of the upper abdomen. RAD/Chest 1 View (Portable) IMPRESSION: No acute cardiopulmonary process. Electronically Signed: Leatha Davis MD at 17:58 EST Tel , Service support ,
[2019-06-27 17:56] LABS: Hematocrit 35.3 % (37-47); Hemoglobin 10.5 g/dL (12.0-15.0); Mean Corp Hgb Conc 29.7 g/dL (32-36); Mean Corpuscular Hgb 27.4 pg (27.0-32.0); Mean Corpuscular Volume 92.2 fL (81-99); Mean Platelet Vol. 11.8 fl (6.2-12.0); POSITIVE COUNT YES; POSITIVE MORPHOLOGY YES; Platelet Count 195 K/mm3 (150-450); RBC Distribution Width CV 18.3 % (11.6-14.6); Red Blood Count 3.83 M/mm3 (4.2-5.4); White Blood Count 10.2 K/mm3 (4.4-11.0)
[2019-06-27 18:03] LABS: Anion Gap 4 (5-15); BUN 20 mg/dL (7-18); BUN/Creat Ratio 8.4 RATIO (10-20); Calcium,Total 8.9 mg/dL (8.5-10.1); Chloride 102 mmol/L (98-107); Creatinine, Serum 2.37 mg/dL (0.55-1.02); EST Glomerular Filtration Rate 22 mL/min (>60); Est Glom Filt Rate - Afr Amer 27 mL/min (>60); Estimated Creatinine Clearance 21.66 ml/min; Glucose 224 mg/dL (74-106); Potassium 4.1 mmol/L (3.5-5.1); Sodium Level 138 mmol/L (136-145)
[2019-06-27 18:04] LABS: Differential Indicated MANUAL DIFF
[2019-06-27 18:07] LABS: Lactic Acid 1.6 mmol/L (0.4-1.9)
[2019-06-27 18:27] LABS: Lymphocyte 5 % (19-41); Metamyelocyte 3 % (0-1); Monocyte 2 % (0-10); Myelocyte 5 (0-0); Neutrophil-Band 4 % (0-5); Neutrophil-Segmented 81 % (47-70); Nucleated Red Bld Cells,Manual 2 % (0-5); Total Cells Counted 100 (MANUAL DIFF)
[2019-06-27 18:29] LABS: Absolute Neutrophil Count 8.7 X10^3/uL (2.0-7.7)
[2019-06-27 18:30] LABS: Absolute Lymphocyte Count 0.51 X10^3/uL (0.83-4.51); Anisocytosis RARE; Macrocytosis RARE; Platelet Estimate ADEQUATE (ADEQ); Polychromasia RARE
[2019-06-27 19:53] VITALS: BP 132/84; PULSE 84; RESP 18; O2SAT 96
[2019-06-28 14:16] LABS: Pathologist Review Reviewed
== END 2019-06-27 19:54 | disposition home or self-care (01) ==
PROVIDERS: Emergency Provider Emergency Medicine; Family Provider Internal Medicine Geriatric Medicine; PCP Internal Medicine Geriatric Medicine
DX: B34.9 Viral infection, unspecified (principal); R53.81 Other malaise; R61 Generalized hyperhidrosis; R05 Cough; R50.9 Fever, unspecified; S31.109A Unspecified open wound of abdominal wall, unspecified quadrant without penetration into peritoneal cavity, initial encounter; X58.XXXA Exposure to other specified factors, initial encounter; Y93.9 Activity, unspecified; Y92.9 Unspecified place or not applicable; F41.9 Anxiety disorder, unspecified; F32.9 Major depressive disorder, single episode, unspecified; G61.81 Chronic inflammatory demyelinating polyneuritis; E11.22 Type 2 diabetes mellitus with diabetic chronic kidney disease; I13.2 Hypertensive heart and chronic kidney disease with heart failure and with stage 5 chronic kidney disease, or end stage renal disease; I50.32 Chronic diastolic (congestive) heart failure; N18.6 End stage renal disease; Z99.2 Dependence on renal dialysis; E78.5 Hyperlipidemia, unspecified; E83.59 Other disorders of calcium metabolism; Z79.4 Long term (current) use of insulin; Z79.01 Long term (current) use of anticoagulants; Z79.899 Other long term (current) drug therapy
CPT/HCPCS: 36415; 71045; 80048; 83605; 85025; 87040; 93005; 99285

== ENCOUNTER 2019-07-01 11:43 | Emergency (ER) | payer OTHER, MEDICAID, SELFPAY ==
[2019-07-01 11:43] VITALS: BMI 47.8
[2019-07-01 11:45] VITALS: BP 141/74; PULSE 91; RESP 16; TEMP 36.6; O2SAT 100; BMI 45.7
[2019-07-01] MEDS: Dicyclomine 20 MG/2 ML Vial IM (13:02)
--- NOTE | 2019-07-01 14:13 | ED.VISSUMM ---
- ER Visit Summary Date of Service: 07/01/19 Chief Complaint: Abdominal pain and constipation History of Present Illness: The patient is a 59 F who presents with abdominal pain and constipation that has been getting worse over the past few days. Patient states her pain is sharp. Patient states she has cramping in her lower abdomen. Patient states her pain goes into her rectum. Patient states the pain is worse with sitting. Patient denies any blood in her stools. Patient states she has a history of hemorrhoids but denies any hemorrhoidal bleeding. Patient states she has tried laxatives and stool softeners with no relief. Physical Examination: Vital signs are stable. Patient is afebrile. Patient is in no acute distress. Oral mucosa is pink and moist. Neck is supple. Trachea is midline. There is no JVD noted. Heart was regular rate and rhythm. Lungs are clear and equal bilaterally. Abdomen is soft. There is some mild lower abdominal tenderness. There is no rebound or guarding noted. Rectal exam showed a fecal impaction in the rectum. Cranial nerves II through XII are intact. There are no focal motor or sensory deficits noted. Emergency Department Course and Treatment: Lidocaine jelly was applied to the rectum. Patient was given a dose of Bentyl. Patient was disimpacted. Patient felt better after this. Patient was instructed to continue her stool softeners and laxatives as prescribed. Patient was instructed to follow-up with her primary care physician in 3 to 5 days. Patient understood and was agreeable with the plan. All questions were answered. Disposition: Discharge home Impression: Fecal impaction This note was generated with [employer] dictation software. It may contain incorrect words, spelling, and punctuation that were not noted in review of the chart prior to signing ED Disposition - Plan for ED Patient: Disposition: Home or Assisted Living Diagnosis: Fecal impaction in rectum Instructions: FECAL IMPACTION, Treated Referrals: Marcela Kerr MD [Primary Care Provider] - 3-5 Days
--- NOTE | 2019-07-01 15:40 | ED.RN ---
REPORT GIVEN TO KHANG AT [facility], VOICES UNDERSTANDING
[2019-07-01 15:59] VITALS: BP 140/72; PULSE 87; RESP 16; O2SAT 99
== END 2019-07-01 16:01 ==
PROVIDERS: Emergency Provider Emergency Medicine; Family Provider Internal Medicine Geriatric Medicine; PCP Internal Medicine Geriatric Medicine
DX: K56.41 Fecal impaction (principal); E66.9 Obesity, unspecified; E11.22 Type 2 diabetes mellitus with diabetic chronic kidney disease; N18.6 End stage renal disease; Z99.2 Dependence on renal dialysis; Z79.4 Long term (current) use of insulin; Z79.01 Long term (current) use of anticoagulants; Z79.899 Other long term (current) drug therapy
CPT/HCPCS: 96372; 99285

== ENCOUNTER 2019-07-08 08:45 | Outpatient (RCR) | payer OTHER, MEDICAID, SELFPAY ==
[2019-06-19 01:03] VITALS: BP 110/68; PULSE 90; RESP 18; TEMP 36.3
[2019-06-24 09:32] VITALS: BP 126/51; PULSE 110; RESP 22; TEMP 36.6; BMI 47.5
--- NOTE | 2019-06-24 14:46 | PN.PCM_ITS ---
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 Status: Chronic Current Visit: Yes Code(s): L98.492 - Non-pressure chronic ulcer of skin of other sites with fat layer exposed (2) Abdominal panniculus, symptomatic Status: Chronic Current Visit: Yes Code(s): E65 - Localized adiposity (3) Necrotizing soft tissue infection Status: Acute Current Visit: Yes Code(s): M79.89 - Other specified soft tissue disorders (4) Type 2 diabetes mellitus with other skin ulcer Status: Chronic Current Visit: Yes Code(s): E11.622 - Type 2 diabetes mellitus with other skin ulcer; L98.499 - Non-pressure chronic ulcer of skin of other sites with unspecified severity Comment: nonhealing infected diabetic ulcerated abscesses right lateral abdominal wall Type of Wound Date of Service: 06/24/19 Chief Complaint: Nonhealing diabetic ulcer right lower abdominal wall. History of Wound: Surgery 04/26/19 - Surgical preparation right lateral abdominal wall with incision and drainage and excisional debridement skin and subcutaneous tissue and fascia nonhealing infected diabetic necrotic ulcerated abscesses necrotizing soft tissue infection (377 cm2) and abdominal panniculectomy. Wound care - Dakin's solution daily and prn. Operative culture - Proteus mirabilis, Pseudomonas aeroginosa, Staphylococcus aureus, and Anaerobic cocci. She was treated with Vancomycin and Zosyn in the hospital and was discharged on Cipro and Augmentin and has finished them. Wound culture from 06/03/19 positive for Proteus mirabilis, Corynebacterium striatum, Conrynebacterium amycolatum. Started on renal dosing of Levaquin every 48 hours. Anaerobic cultures pending. CT Abdomen/Pelvis from 04/25/19 showed 3.6 cm x 5.3 cm ill-defined soft tissue density in deep subcutaneous tissues overlying the posterior right lateral abdominal wall. The overlying skin is unremarkable.. Prealbumin from 04/29/19 was 19.1. Encouraged nutritional supplementation with protein to help the healing process. Today she denies fever. Her appetite is ok. Progress of Wound: Improved granulation. - Physical Exam Vital Signs Temp Pulse Resp BP 97.9 F 110 H 22 H 126/51 H 06/24/19 09:32 06/24/19 09:32 06/24/19 09:32 06/24/19 09:32 General: Alert, Oriented x3, Cooperative HEENT: Atraumatic Oral: Moist Mucosa Lungs: Normal air movement Cardiovascular: Regular rate Abdomen: Soft, Obese Extremities: Capillary Refill Less than 3 Seconds Skin: Ulcer/ Wound - Lower right abdominal ulcer Wound Measurements and Assessment - Nurse 1 - General Ulcer Measurement Start: 06/24/19 09:32 Freq: Status: Active Protocol: Activity Type Activity Date Activity User E-Sign Co-Sign Detail Recorded Client Recorded Date Recorded By Document 06/24/19 09:32 DL [id number] 06/24/19 09:39 DL 06/24/19 09:32 Wound Center Nurse 1 [Ulcer Assessment] #4- R LOWER ABD- POST OP -Combined with other wound No -Current Size (cm) - Length 5.5 -Current Size (cm) - Width 28.8 -Current Size (cm) - Depth 6.5 -Total Square Cm 158.40 -Photo Taken No -Epithelialization None Present -Tunneling No -Undermining/Tunneling No -Circular Undermining No -Exudate Amt Medium -Exudate Type Serosanguineous -Wound Margin Distinct, Outline Attached -Granulation Amt Large (67-100%) -Granulation Quality Red -Slough/Fibrin Yes -Necrosis Amt Small (1-33%) -Necrotic Tissue Type Adherent Slough -Texture (Leti-wound Skin Appearance) Assessed, Scarring -Moisture (Leti-wound Skin Appearance Assessed ) -Color (Leti-wound Skin Appearance) Assessed, Erythema -Temperature (Leti-wound Skin No Abnormality Appearance) (Pt Warm) -Tenderness on Palpation (Leti-wound Yes Skin Appearance) -Ulcer Cleansing soapy water -Foul Odor after Cleansing No -Anesthetic Used 4% Lidocaine Solution - Nurse 2 - General Ulcer CM Notes Start: 06/24/19 09:32 Freq: Status: Active Protocol: Activity Type Activity Date Activity User E-Sign Co-Sign Detail Recorded Client Recorded Date Recorded By Document 06/24/19 10:54 MARIA GUADALUPE [id number] 06/24/19 10:57 MARIA GUADALUPE 06/24/19 10:54 Wound Center Nurse 2 [Procedure/Treatment] -Time 10:54 -Correct Patient Yes -Correct Side, Site, Position Yes -Correct Procedure Yes -Procedure Performed Yes -Type of Procedure Debridement -Clinical Debridement Subcutaneous -Post Debridement Size (cm) - Length 9.0 -Post Debridement Size (cm) - Width 30.0 -Post Debridement Size (cm) - Depth 4.5 -Total Square Cm 270.00 -Wound/Ulcer Outcome Not Healed -Ulcer Cleansing Rinsed/ Irrigated with Saline -Foul Odor after Cleansing No -Bioengineered Tissue No -Bleeding Controlled with Pressure -Offloading No -Treatment Response Procedure Tolerated Well [See Physician Procedure note for Specifics] Pain Scale: 0-10 Numeric [Pain] -Is Patient Pain Free? Yes Musculoskeletal: No Muscle Wasting Neurological: Neuro grossly intact Psych/Mental Status: Normal Affect, Appropriate Debridement Note Post-Debridement Measurements/Treatment WC - Nurse 2 - General Ulcer CM Notes Start: 06/24/19 09:32 Freq: Status: Active Protocol: Activity Type Activity Date Activity User E-Sign Co-Sign Detail Recorded Client Recorded Date Recorded By Document 06/24/19 10:54 MARIA GUADALUPE [id number] 06/24/19 10:57 MARIA GUADALUPE 06/24/19 10:54 Wound Center Nurse 2 #4- R LOWER ABD- POST OP -Time 10:54 -Correct Patient Yes -Correct Side, Site, Position Yes -Correct Procedure Yes -Procedure Performed Yes -Type of Procedure Debridement -Clinical Debridement Subcutaneous -Post Debridement Size (cm) - Length 9.0 -Post Debridement Size (cm) - Width 30.0 -Post Debridement Size (cm) - Depth 4.5 -Total Square Cm 270.00 -Wound/Ulcer Outcome Not Healed -Ulcer Cleansing Rinsed/ Irrigated with Saline -Foul Odor after Cleansing No -Bioengineered Tissue No -Bleeding Controlled with Pressure -Offloading No -Treatment Response Procedure Tolerated Well Pain Scale: 0-10 Numeric Is Patient Pain Free? Yes Wound debrided: Lower right abdomen ulcer Type of Debridement: Excisional debridement Anesthesia Used: 5% Lidocaine Gel Depth: Down to and including healthy tissue, in the subcutaneous layer Percentage of wound debrided: 100 Instrument Used: 7mm curette Tissue Removed: Subcutaneous tissue and slough Severity: Fat Layer Exposed Amount of bleeding with debridement: Mild Bleeding Controlled with: Pressure, Compression and gauze Patient tolerated procedure well Assessment/Plan Active Problems (Last Updated 09/19/18 @ 07:24 by Rema Ocampo) Skin ulcer of abdominal wall with fat layer exposed (Chronic) Abdominal panniculus, symptomatic (Chronic) Necrotizing soft tissue infection (Acute) Type 2 diabetes mellitus with other skin ulcer (Chronic) nonhealing infected diabetic ulcerated abscesses right lateral abdominal wall Assessment: 1. 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 2. Painful insu natasha nodules abdominal wall. 3. Diabetes mellitus. 4. ESRD requiring dialysis. 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 6. Abdominal panniculus. 7. Abdominal wall skin crease intertrigo. 8. s/p surgical preparation right lateral abdominal wall with incision and drainage and excisional debridement skin and subcutaneous tissue and fascia nonhealing infected diabetic necrotic ulcerated abscesses necrotizing soft tissue infection (377 cm2) and abdominal panniculectomy. Plan: Continue Dakin's dressing changes daily and prn. Instructed to make sure that the dressing is getting into all the depressions and the small tunneling especially on the left side of the ulcer. There is not as much fat necrosis present today. The Dakin's solution is helping the wound bed look beefy red. A wound culture was obtained on 06/03/2019 which was positive for Proteus mirabilis, Corynebacterium striatum, Corynebacterium amycolatum. Started on renal dosing of Levaquin. Anaerobic pending. She had been on Augmentin and Cipro for operative cultures that showed Proteus mirabilis, Pseudomonas aeroginosa, Staphylococcus aureus, and Anaerobic cocci. Prealbumin from 05/07 was 19.1. Encouraged nutritional supplementation with protein to help the healing process. Discussed with the patient that if she continues to develop fat necrosis at in the wound, she may need additional operative debridement depending on how well it can debrided at the Wound Center. She voices understanding. As long as she does pressure releases, the patient can be up in a chair. Encouraged her to get up to the chair three times per day but make sure to off load periodically. Followup one week. Code Visit [id number]
[2019-07-01 09:38] VITALS: BP 130/72; PULSE 82; RESP 18; TEMP 36.3; BMI 47.5
--- NOTE | 2019-07-01 15:21 | PN.PCM_ITS ---
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 Status: Chronic Current Visit: Yes Code(s): L98.492 - Non-pressure chronic ulcer of skin of other sites with fat layer exposed (2) Abdominal panniculus, symptomatic Status: Chronic Current Visit: Yes Code(s): E65 - Localized adiposity (3) Type 2 diabetes mellitus with other skin ulcer Status: Chronic Current Visit: Yes Code(s): E11.622 - Type 2 diabetes mellitus with other skin ulcer; L98.499 - Non-pressure chronic ulcer of skin of other sites with unspecified severity Comment: nonhealing infected diabetic ulcerated abscesses right lateral abdominal wall Type of Wound Date of Service: 07/01/19 Chief Complaint: Nonhealing diabetic ulcer right lower abdominal wall. History of Wound: Surgery 04/26/19 - Surgical preparation right lateral abdominal wall with incision and drainage and excisional debridement skin and subcutaneous tissue and fascia nonhealing infected diabetic necrotic ulcerated abscesses necrotizing soft tissue infection (377 cm2) and abdominal panniculectomy. Wound care - Dakin's solution daily and prn. Operative culture - Proteus mirabilis, Pseudomonas aeroginosa, Staphylococcus aureus, and Anaerobic cocci. She was treated with Vancomycin and Zosyn in the hospital and was discharged on Cipro and Augmentin and has finished them. Wound culture from 06/03/19 positive for Proteus mirabilis, Corynebacterium striatum, Conrynebacterium amycolatum. Started on renal dosing of Levaquin every 48 hours. Anaerobic cultures pending. CT Abdomen/Pelvis from 04/25/19 showed 3.6 cm x 5.3 cm ill-defined soft tissue density in deep subcutaneous tissues overlying the posterior right lateral abdominal wall. The overlying skin is unremarkable.. Prealbumin from 04/29/19 was 19.1. Encouraged nutritional supplementation with protein to help the healing process. Today she denies fever. Her appetite is ok. She states she has been having issues with constipation and is having rectal pain. Progress of Wound: Stable - Physical Exam Vital Signs Temp Pulse Resp BP 97.3 F L 82 18 130/72 H 07/01/19 09:38 07/01/19 09:38 07/01/19 09:38 07/01/19 09:38 General: Alert, Oriented x3, Cooperative HEENT: Atraumatic Oral: Moist Mucosa Lungs: Normal air movement Cardiovascular: Regular rate Abdomen: Bowel Sounds Present, Soft, Obese, Tender Extremities: Capillary Refill Less than 3 Seconds Skin: Ulcer/ Wound - Lower abdominal ulcer is beefy pink with some mild fat necrosis on the left lateral edge. Wound Measurements and Assessment WC - Nurse 1 - General Ulcer Measurement Start: 06/24/19 09:32 Freq: Status: Active Protocol: Activity Type Activity Date Activity User E-Sign Co-Sign Detail Recorded Client Recorded Date Recorded By Document 07/01/19 09:38 BS [id number] 07/01/19 09:47 BS 07/01/19 09:38 Wound Center Nurse 1 [Ulcer Assessment] #4- R LOWER ABD- POST OP -Combined with other wound No -Current Size (cm) - Length 5.5 -Current Size (cm) - Width 26.5 -Current Size (cm) - Depth 5.5 -Total Square Cm 145.75 -Photo Taken No -Epithelialization None Present -Tunneling No -Undermining/Tunneling No -Circular Undermining No -Exudate Amt Large -Exudate Type Serosanguineous -Wound Margin Distinct, Outline Attached -Granulation Amt Large (67-100%) -Granulation Quality Red -Slough/Fibrin Yes -Necrosis Amt Small (1-33%) -Necrotic Tissue Type Adherent Slough -Texture (Leti-wound Skin Appearance) Assessed, Scarring -Moisture (Leti-wound Skin Appearance Assessed ) -Color (Leti-wound Skin Appearance) Assessed -Temperature (Leti-wound Skin No Abnormality Appearance) (Pt Warm) -Tenderness on Palpation (Leti-wound Yes Skin Appearance) -Ulcer Cleansing soapy water -Anesthetic Used 4% Lidocaine Solution WC - Nurse 2 - General Ulcer CM Notes Start: 06/24/19 09:32 Freq: Status: Active Protocol: Activity Type Activity Date Activity User E-Sign Co-Sign Detail Recorded Client Recorded Date Recorded By Document 07/01/19 10:51 MARIA GUADALUPE [id number] 07/01/19 11:02 MARIA GUADALUPE 07/01/19 10:51 Wound Center Nurse 2 [Procedure/Treatment] -Time 10:51 -Correct Patient Yes -Correct Side, Site, Position Yes -Correct Procedure Yes -Procedure Performed Yes -Type of Procedure Debridement -Clinical Debridement Subcutaneous -Post Debridement Size (cm) - Length 8.5 -Post Debridement Size (cm) - Width 27.5 -Post Debridement Size (cm) - Depth 4.5 -Total Square Cm 233.75 -Wound/Ulcer Outcome Not Healed -Ulcer Cleansing Rinsed/ Irrigated with Saline -Foul Odor after Cleansing No -Bioengineered Tissue No -Bleeding Controlled with Pressure -Offloading No -Treatment Response Procedure Tolerated Well [See Physician Procedure note for Specifics] Pain Scale: 0-10 Numeric [Pain] -Is Patient Pain Free? Yes Musculoskeletal: No Muscle Wasting Neurological: Neuro grossly intact Psych/Mental Status: Normal Affect, Appropriate Debridement Note Post-Debridement Measurements/Treatment WC - Nurse 2 - General Ulcer CM Notes Start: 06/24/19 09:32 Freq: Status: Active Protocol: Activity Type Activity Date Activity User E-Sign Co-Sign Detail Recorded Client Recorded Date Recorded By Document 06/24/19 10:54 [id number] 06/24/19 10:57 Document 07/01/19 10:51 [id number] 07/01/19 11:02 06/24/19 07/01/19 10:54 10:51 Wound Center Nurse 2 #4- R LOWER ABD- POST OP -Time 10:54 10:51 -Correct Patient Yes Yes -Correct Side, Site, Position Yes Yes -Correct Procedure Yes Yes -Procedure Performed Yes Yes -Type of Procedure Debridement Debridement -Clinical Debridement Subcutaneous Subcutaneous -Post Debridement Size (cm) - Length 9.0 8.5 -Post Debridement Size (cm) - Width 30.0 27.5 -Post Debridement Size (cm) - Depth 4.5 4.5 -Total Square Cm 270.00 233.75 -Wound/Ulcer Outcome Not Healed Not Healed -Ulcer Cleansing Rinsed/ Rinsed/ Irrigated with Irrigated with Saline Saline -Foul Odor after Cleansing No No -Bioengineered Tissue No No -Bleeding Controlled with Pressure Pressure -Offloading No No -Treatment Response Procedure Procedure Tolerated Well Tolerated Well Pain Scale: 0-10 Numeric Is Patient Pain Free? Yes Yes Wound debrided: lower abdominal ulcer Type of Debridement: Excisional debridement Anesthesia Used: 5% Lidocaine Gel Depth: Down to and including healthy tissue, in the subcutaneous layer Percentage of wound debrided: 100 Instrument Used: 7mm curette Tissue Removed: subcutaneous tissue and slough Severity: Fat Layer Exposed Amount of bleeding with debridement: Mild Bleeding Controlled with: Pressure Patient tolerated procedure well Assessment/Plan Active Problems (Last Updated 09/19/18 @ 07:24 by Rema Ocampo) Skin ulcer of abdominal wall with fat layer exposed (Chronic) Abdominal panniculus, symptomatic (Chronic) Type 2 diabetes mellitus with other skin ulcer (Chronic) nonhealing infected diabetic ulcerated abscesses right lateral abdominal wall Assessment: 1. 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 2. Painful insulin nodules abdominal wall. 3. Diabetes mellitus. 4. ESRD requiring dialysis. 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 6. Abdominal p anniculus. 7. Abdominal wall skin crease intertrigo. 8. s/p surgical preparation right lateral abdominal wall with incision and drainage and excisional debridement skin and subcutaneous tissue and fascia nonhealing infected diabetic necrotic ulcerated abscesses necrotizing soft tissue infection (377 cm2) and abdominal panniculectomy. Plan: Continue Dakin's dressing changes daily and prn. Instructed to make sure that the dressing is getting into all the depressions and the small tunneling especially on the left side of the ulcer. There is not as much fat necrosis on the left lateral edge. The Dakin's solution is helping the wound bed look beefy red. A wound culture was obtained on 06/03/2019 which was positive for Proteus mirabilis, Corynebacterium striatum, Corynebacterium amycolatum. Started on renal dosing of Levaquin. She had been on Augmentin and Cipro for operative cultures that showed Proteus mirabilis, Pseudomonas aeroginosa, Staphylococcus aureus, and Anaerobic cocci. Prealbumin from 04/29/19 was 19.1. Encouraged nutritional supplementation with protein to help the healing process. Discussed with the patient that if she continues to develop fat necrosis at in the wound, she may need additional operative debridement depending on how well it can debrided at the Wound Center. She voices understanding. As long as she does pressure releases, the patient can be up in a chair. Encouraged her to get up to the chair three times per day but make sure to off load periodically. She is having rectal pain today from being constipated. Shay has been treating her constipation. She would like to go to the ED for further evaluation. Will send her there now. Followup one week. Code Visit 111xxx-113xx: 90091 Global Visit
[2019-07-08 09:36] VITALS: BP 114/81; PULSE 108; RESP 16; TEMP 36.2; BMI 47.5
--- NOTE | 2019-07-08 17:34 | PN.PCM_ITS ---
Type of Wound Date of Service: 07/08/19 Chief Complaint: Nonhealing diabetic ulcer right lower abdominal wall. History of Wound: Surgery 04/26/19 - Surgical preparation right lateral abdominal wall with incision and drainage and excisional debridement skin and subcutaneous tissue and fascia nonhealing infected diabetic necrotic ulcerated abscesses necrotizing soft tissue infection (377 cm2) and abdominal panniculectomy. Wound care - Dakin's. Operative culture - Proteus mirabilis, Pseudomonas aeroginosa, Staphylococcus aureus, and Anaerobic cocci. She was treated with Vancomycin and Zosyn in the hospital and was discharged on Cipro and Augmentin and has finished them. Repeat wound culture on 06/03/19 showed Proteus mirabilis, Anaerobic cocci, and Bacteroides fragilis. She is currently on Augmentin. CT Abdomen/Pelvis from 04/25/19 showed 3.6 cm x 5.3 cm ill-defined soft tissue dens ity in deep subcutaneous tissues overlying the posterior right lateral abdominal wall. The overlying skin is unremarkable.. Prealbumin from 04/29/19 was 19.1. Encouraged nutritional supplementation with protein to help the healing process. Today she denies fever. Her appetite is ok. Progress of Wound: Improved. - Physical Exam Vital Signs Temp Pulse Resp BP 97.1 F L 108 H 16 114/81 H 07/08/19 09:36 07/08/19 09:36 07/08/19 09:36 07/08/19 09:36 Wound Measurements and Assessment WC - Nurse 1 - General Ulcer Measurement Start: 06/24/19 09:32 Freq: Status: Active Protocol: Activity Type Activity Date Activity User E-Sign Co-Sign Detail Recorded Client Recorded Date Recorded By Document 07/08/19 09:36 DV [id number] 07/08/19 09:40 DV 07/08/19 09:36 Wound Center Nurse 1 [Ulcer Assessment] #4- R LOWER ABD- POST OP -Combined with other wound No -Current Size (cm) - Length 6 -Current Size (cm) - Width 28 -Current Size (cm) - Depth 5 -Total Square Cm 168 -Photo Taken No -Epithelialization Small 1-33% -Tunneling No -Undermining/Tunneling No -Circular Undermining No -Exudate Amt Large -Exudate Type Serosanguineous -Wound Margin Distinct, Outline Attached -Granulation Amt Large (67-100%) -Granulation Quality Red -Slough/Fibrin Yes -Necrosis Amt Small (1-33%) -Necrotic Tissue Type Adherent Slough -Texture (Leti-wound Skin Appearance) Assessed, Scarring -Moisture (Leti-wound Skin Appearance Assessed ) -Color (Leti-wound Skin Appearance) Assessed, Erythema -Temperature (Leti-wound Skin No Abnormality Appearance) (Pt Warm) -Tenderness on Palpation (Leti-wound Yes Skin Appearance) -Ulcer Cleansing soapy water -Foul Odor after Cleansing No -Anesthetic Used 4% Lidocaine Solution - Nurse 2 - General Ulcer CM Notes Start: 06/24/19 09:32 Freq: Status: Active Protocol: Activity Type Activity Date Activity User E-Sign Co-Sign Detail Recorded Client Recorded Date Recorded By Document 07/08/19 10:10 [id number] 07/08/19 10:11 07/08/19 10:10 Wound Center Nurse 2 [Procedure/Treatment] -Time 10:10 -Correct Patient Yes -Correct Side, Site, Position Yes -Correct Procedure Yes -Procedure Performed Yes -Type of Procedure Debridement -Clinical Debridement Subcutaneous -Post Debridement Size (cm) - Length 6.1 -Post Debridement Size (cm) - Width 28.1 -Post Debridement Size (cm) - Depth 5.0 -Total Square Cm 171.41 -Wound/Ulcer Outcome Not Healed -Ulcer Cleansing Rinsed/ Irrigated with Saline -Foul Odor after Cleansing No -Bioengineered Tissue No -Bleeding Controlled with Pressure -Offloading No -Treatment Response Procedure Tolerated Well [See Physician Procedure note for Specifics] Pain Scale: 0-10 Numeric [Pain] -Is Patient Pain Free? Yes Debridement Note Post-Debridement Measurements/Treatment - Nurse 2 - General Ulcer CM Notes Start: 06/24/19 09:32 Freq: Status: Active Protocol: Activity Type Activity Date Activity User E-Sign Co-Sign Detail Recorded Client Recorded Date Recorded By Document 06/24/19 10:54 [id number] 06/24/19 10:57 Document 07/01/19 10:51 [id number] 07/01/19 11:02 Document 07/08/19 10:10 [id number] 07/08/19 10:11 06/24/19 07/01/19 07/08/19 10:54 10:51 10:10 Wound Center Nurse 2 #4- R LOWER ABD- POST OP -Time 10:54 10:51 10:10 -Correct Patient Yes Yes Yes -Correct Side, Site, Position Yes Yes Yes -Correct Procedure Yes Yes Yes -Procedure Performed Yes Yes Yes -Type of Procedure Debridement Debridement Debridement -Clinical Debridement Subcutaneous Subcutaneous Subcutaneous -Post Debridement Size (cm) - Length 9.0 8.5 6.1 -Post Debridement Size (cm) - Width 30.0 27.5 28.1 -Post Debridement Size (cm) - Depth 4.5 4.5 5.0 -Total Square Cm 270.00 233.75 171.41 -Wound/Ulcer Outcome Not Healed Not Healed Not Healed -Ulcer Cleansing Rinsed/ Rinsed/ Rinsed/ Irrigated with Irrigated with Irrigated with Saline Saline Saline -Foul Odor after Cleansing No No No -Bioengineered Tissue No No No -Bleeding Controlled with Pressure Pressure Pressure -Offloading No No No -Treatment Response Procedure Procedure Procedure Tolerated Well Tolerated Well Tolerated Well Pain Scale: 0-10 Numeric Is Patient Pain Free? Yes Yes Yes Wound debrided: #4 Right lower abdominal wall. Laterality: Right Wound Grade/Stage: 2. Type of Debridement: Excisional debridement Anesthesia Used: 4% Lidocaine Solution Depth: Down to and including healthy tissue, in the subcutaneous layer Percentage of wound debrided: 100 Instrument Used: 7mm curette Tissue Removed: subcutaneous tissue. Severity: Fat Layer Exposed Amount of bleeding with debridement: Mild Bleeding Controlled with: Pressure Patient tolerated procedure well Assessment/Plan Active Problems (Last Updated 09/19/18 @ 07:24 by Rema Ocampo) Skin ulcer of abdominal wall with fat layer exposed (Chronic) Abdominal panniculus, symptomatic (Chronic) Type 2 diabetes mellitus with other skin ulcer (Chronic) nonhealing infected diabetic ulcerated abscesses right lateral abdominal wall Assessment: 1. 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 2. Painful insulin nodules abdominal wall. 3. Diabetes mellitus. 4. ESRD requiring dialysis. 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 6. Abdominal panniculus. 7. Abdominal wall skin crease intertrigo. 8. s/p surgical preparation right lateral abdominal wall with incision and drainage and excisional debridement skin and subcutaneous tissue and fascia nonhealing infected diabetic necrotic ulcerated abscesses necrotizing soft tissue infection (377 cm2) and abdominal panniculectomy. Plan: Continue Dakin's dressing changes twice a day. Repeat wound culture from 06/03/19 showed Proteus mirabilis, Anaerobic cocci, and Bacteroides fragilis. She is currently on Augmentin. Prealbumin from 04/29/19 was 19.1. Encouraged nutritional supplementation with protein to help the healing process. As long as she does pressure releases, the patient can be up in a chair. Followup 2 weeks. Discussed with the patient that depending on the healing, if there is a plateau in the healing process, can proceed with delayed complex secondary wound closure. She voices understanding. Code Visit 111xxx-113xx: [id number] Global Visit - ICD-10 - V58.49, E11.622, I96, L02.211, M79.89, R10.9, T88.9xxA, N18.6, E83.59, E65, L30.4
== END 2019-07-19 23:59 ==
LOC: WC 08:45
PROVIDERS: Family Provider Internal Medicine Geriatric Medicine; PCP Internal Medicine Geriatric Medicine; Visit Provider Nurse Practitioner Family
DX: E11.622 Type 2 diabetes mellitus with other skin ulcer (principal); E11.22 Type 2 diabetes mellitus with diabetic chronic kidney disease; L98.492 Non-pressure chronic ulcer of skin of other sites with fat layer exposed; E65 Localized adiposity; E11.52 Type 2 diabetes mellitus with diabetic peripheral angiopathy with gangrene; N18.6 End stage renal disease; Z99.2 Dependence on renal dialysis; L30.4 Erythema intertrigo
CPT/HCPCS: 11042; 11045

== ENCOUNTER 2019-08-05 10:30 | Outpatient (RCR) | payer OTHER, MEDICAID, SELFPAY ==
[2019-07-20 00:55] VITALS: BP 114/81; PULSE 108; RESP 16; TEMP 36.2; BMI 45.7
[2019-07-22 09:32] VITALS: BP 116/72; PULSE 82; RESP 16; TEMP 36.3; BMI 45.7
--- NOTE | 2019-07-22 15:07 | PN.PCM_ITS ---
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 Status: Chronic Code(s): L98.492 - Non-pressure chronic ulcer of skin of other sites with fat layer exposed (2) Abdominal panniculus, symptomatic Status: Chronic Code(s): E65 - Localized adiposity (3) Calciphylaxis Status: Chronic Code(s): E83.59 - Other disorders of calcium metabolism (4) ESRD on dialysis Status: Chronic Code(s): N18.6 - End stage renal disease; Z99.2 - Dependence on renal dialysis Type of Wound Date of Service: 07/22/19 Chief Complaint: Nonhealing diabetic ulcer right lower abdominal wall. History of Wound: Surgery 04/26/19 - Surgical preparation right lateral abdominal wall with incision and drainage and excisional debridement skin and subcutaneous tissue and fascia nonhealing infected diabetic necrotic ulcerated abscesses necrotizing soft tissue infection (377 cm2) and abdominal panniculectomy. Wound care - Dakin's. Operative culture - Proteus mirabilis, Pseudomonas aeroginosa, Staphylococcus aureus, and Anaerobic cocci. She was treated with Vancomycin and Zosyn in the hospital and was discharged on Cipro and Augmentin and has finished them. Repeat wound culture on 06/03/19 showed Proteus mirabilis, Anaerobic cocci, and Bacteroides fragilis. She is currently on Augmentin. CT Abdomen/Pelvis from 04/25/19 showed 3.6 cm x 5.3 cm ill-defined soft tissue density in deep subcutaneous tissues overlying the posterior right lateral abdominal wall. The overlying skin is unremarkable.. Prealbumin from 04/29/19 was 19.1. Encouraged nutritional supplementation with protein to help the healing process. Today she denies fever. Her appetite is ok. Progress of Wound: Improved. - Physical Exam Vital Signs Temp Pulse Resp BP 97.3 F L 82 16 116/72 07/22/19 09:32 07/22/19 09:32 07/22/19 09:32 07/22/19 09:32 General: Alert, Oriented x3, Cooperative HEENT: Atraumatic Oral: Moist Mucosa Cardiovascular: Regular rate Abdomen: Soft, Obese Extremities: Capillary Refill Less than 3 Seconds Skin: Ulcer/ Wound - Abdominal ulcer with some areas in the base with tunneling. Ulcer is pink with granulation tissue. Wound Measurements and Assessment WC - Nurse 1 - General Ulcer Measurement Start: 07/22/19 09:32 Freq: Status: Active Protocol: Activity Type Activity Date Activity User E-Sign Co-Sign Detail Recorded Client Recorded Date Recorded By Document 07/22/19 09:32 [facility] [id number] 07/22/19 09:33 [facility] 07/22/19 09:32 Wound Center Nurse 1 [Ulcer Assessment] #4- R LOWER ABD- POST OP -Combined with other wound No -Current Size (cm) - Length 5.5 -Current Size (cm) - Width 28 -Current Size (cm) - Depth 8.1 -Total Square Cm 154.0 -Photo Taken No -Epithelialization None Present -Tunneling No -Undermining/Tunneling No -Circular Undermining No -Exudate Amt Large -Exudate Type Serosanguineous -Wound Margin Distinct, Outline Attached -Granulation Amt Large (67-100%) -Granulation Quality Red -Slough/Fibrin Yes -Necrosis Amt Small (1-33%) -Necrotic Tissue Type Adherent Slough -Texture (Leti-wound Skin Appearance) Assessed, Scarring -Moisture (Leti-wound Skin Appearance Assessed ) -Color (Leti-wound Skin Appearance) Assessed, Erythema -Temperature (Leti-wound Skin No Abnormality Appearance) (Pt Warm) -Tenderness on Palpation (Leti-wound Yes Skin Appearance) -Ulcer Cleansing soapy water -Foul Odor after Cleansing No -Anesthetic Used 4% Lidocaine Solution WC - Nurse 2 - General Ulcer CM Notes Start: 07/22/19 09:32 Freq: Status: Active Protocol: Activity Type Activity Date Activity User E-Sign Co-Sign Detail Recorded Client Recorded Date Recorded By Document 07/22/19 09:53 [id number] 07/22/19 09:57 07/22/19 09:53 Wound Center Nurse 2 [Procedure/Treatment] -Time 09:53 -Correct Patient Yes -Correct Side, Site, Position Yes -Correct Procedure Yes -Procedure Performed Yes -Type of Procedure Debridement -Clinical Debridement Subcutaneous -Post Debridement Size (cm) - Length 8 -Post Debridement Size (cm) - Width 27.0 -Post Debridement Size (cm) - Depth 7.1 -Total Square Cm 216.0 -Wound/Ulcer Outcome Not Healed -Ulcer Cleansing Rinsed/ Irrigated with Saline -Foul Odor after Cleansing No -Bioengineered Tissue No -Bleeding Controlled with Pressure -Offloading No -Treatment Response Procedure Tolerated Well [See Physician Procedure note for Specifics] Pain Scale: 0-10 Numeric [Pain] -Is Patient Pain Free? Yes Musculoskeletal: No Tenderness to Palpation of Joints or Extremities Neurological: Neuro grossly intact Psych/Mental Status: Normal Affect, Appropriate Debridement Note Post-Debridement Measurements/Treatment WC - Nurse 2 - General Ulcer CM Notes Start: 07/22/19 09:32 Freq: Status: Active Protocol: Activity Type Activity Date Activity User E-Sign Co-Sign Detail Recorded Client Recorded Date Recorded By Document 07/22/19 09:53 [id number] 07/22/19 09:57 MARIA GUADALUPE 07/22/19 09:53 Wound Center Nurse 2 #4- R LOWER ABD- POST OP -Time 09:53 -Correct Patient Yes -Correct Side, Site, Position Yes -Correct Procedure Yes -Procedure Performed Yes -Type of Procedure Debridement -Clinical Debridement Subcutaneous -Post Debridement Size (cm) - Length 8 -Post Debridement Size (cm) - Width 27.0 -Post Debridement Size (cm) - Depth 7.1 -Total Square Cm 216.0 -Wound/Ulcer Outcome Not Healed -Ulcer Cleansing Rinsed/ Irrigated with Saline -Foul Odor after Cleansing No -Bioengineered Tissue No -Bleeding Controlled with Pressure -Offloading No -Treatment Response Procedure Tolerated Well Pain Scale: 0-10 Numeric Is Patient Pain Free? Yes Wound debrided: Abdominal ulcer Type of Debridement: Excisional debridement Anesthesia Used: 4% Lidocaine Solution, 5% Lidocaine Gel Depth: Down to and including healthy tissue, in the subcutaneous layer Percentage of wound debrided: 100 Instrument Used: 7mm curette Tissue Removed: subcutaneous tissue and slough Severity: Fat Layer Exposed Amount of bleeding with debridement: Mild Bleeding Controlled with: Pressure Patient tolerated procedure well Assessment/Plan Assessment: 1. 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 2. Painful insulin nodules abdominal wall. 3. Diabetes mellitus. 4. ESRD requiring dialysis. 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 6. Abdominal panniculus. 7. Abdominal wall skin crease intertrigo. 8. s/p surgical preparation right lateral abdominal wall with incision and drainage and excisional debridement skin and subcutaneous tissue and fascia nonhealing infected diabetic necrotic ulcerated abscesses necrotizing soft tissue infection (377 cm2) and abdominal panniculectomy. Plan: Continue Dakin's dressing changes twice a day. Instructed to make sure the gauze is placed into the base of the wound including the few tunneling areas. Repeat wound culture from 06/03/19 showed Proteus mirabilis, Anaerobic cocci, and Bacteroides fragilis. She is currently on Augmentin. Prealbumin from 04/29/19 was 19.1. Encouraged nutritional supplementation with protein to help the healing process. As long as she does pressure releases, the patient can be up in a chair. Followup 2 weeks. Discussed with the patient that depending on the healing, if there is a plateau in the healing process, can proceed with delayed complex secondary wound closure. She voices understanding. Code Visit 111xxx-113xx: [id number] Global Visit
[2019-08-05 10:30] VITALS: BP 147/88; PULSE 96; RESP 16; TEMP 36.3; BMI 45.7
--- NOTE | 2019-08-05 18:15 | PN.PCM_ITS ---
Type of Wound Date of Service: 08/05/19 Chief Complaint: Nonhealing diabetic ulcer right lower abdominal wall. History of Wound: Surgery 04/26/19 - Surgical preparation right lateral abdominal wall with incision and drainage and excisional debridement skin and subcutaneous tissue and fascia nonhealing infected diabetic necrotic ulcerated abscesses necrotizing soft tissue infection (377 cm2) and abdominal panniculectomy. Wound care - Dakin's. Operative culture - Proteus mirabilis, Pseudomonas aeroginosa, Staphylococcus aureus, and Anaerobic cocci. She was treated with Vancomycin and Zosyn in the hospital and was discharged on Cipro and Augmentin and has finished them. Repeat wound culture on 06/03/19 showed Proteus mirabilis, Anaerobic cocci, and Bacteroides fragilis. She was placed on Augmentin and has finished them. CT Abdomen/Pelvis from 04/25/19 showed 3.6 cm x 5.3 cm ill-defined soft tissue density in deep subcutaneous tissues overlying the posterior right lateral abdominal wall. The overlying skin is unremarkable.. Prealbumin from 04/29/19 was 19.1. Encouraged nutritional supplementation with protein to help the healing process. Today she denies fever. Her appetite is ok. Progress of Wound: Improved. - Physical Exam Vital Signs Temp Pulse Resp BP 97.3 F L 96 16 147/88 H 08/05/19 10:30 08/05/19 10:30 08/05/19 10:30 08/05/19 10:30 Wound Measurements and Assessment WC - Nurse 1 - General Ulcer Measurement Start: 07/22/19 09:32 Freq: Status: Active Protocol: Activity Type Activity Date Activity User E-Sign Co-Sign Detail Recorded Client Recorded Date Recorded By Document 08/05/19 10:30 [facility] [id number] 08/05/19 10:35 BM 08/05/19 10:30 Wound Center Nurse 1 [Ulcer Assessment] #4- R LOWER ABD- POST OP -Combined with other wound No -Current Size (cm) - Length 25.2 -Current Size (cm) - Width 5.0 -Current Size (cm) - Depth 3.4 -Total Square Cm 126.00 -Epithelialization Small 1-33% -Tunneling Yes -Tunneling Position (O'clock) 2 -Tunneling Distance (cm) 3 -Undermining/Tunneling No -Circular Undermining No -Exudate Amt Large -Exudate Type Serosanguineous -Wound Margin Distinct, Outline Attached -Granulation Amt Large (67-100%) -Granulation Quality Red -Slough/Fibrin Yes -Necrosis Amt Small (1-33%) -Necrotic Tissue Type Adherent Slough -Texture (Leti-wound Skin Appearance) Assessed, Scarring -Moisture (Leti-wound Skin Appearance Assessed ) -Color (Leti-wound Skin Appearance) Assessed -Temperature (Leti-wound Skin No Abnormality Appearance) (Pt Warm) -Tenderness on Palpation (Leti-wound No Skin Appearance) -Ulcer Cleansing soapy water -Foul Odor after Cleansing No -Anesthetic Used 4% Lidocaine Solution WC - Nurse 2 - General Ulcer CM Notes Start: 07/22/19 09:32 Freq: Status: Active Protocol: Activity Type Activity Date Activity User E-Sign Co-Sign Detail Recorded Client Recorded Date Recorded By Document 08/05/19 11:01 [id number] 08/05/19 11:04 08/05/19 11:01 Wound Center Nurse 2 [Procedure/Treatment] -Time 11:02 -Correct Patient Yes -Correct Side, Site, Position Yes -Correct Procedure Yes -Procedure Performed Yes -Type of Procedure Debridement -Clinical Debridement Subcutaneous -Post Debridement Size (cm) - Length 25 -Post Debridement Size (cm) - Width 7.5 -Post Debridement Size (cm) - Depth 7.3 -Total Square Cm 187.5 -Wound/Ulcer Outcome Not Healed -Ulcer Cleansing Rinsed/ Irrigated with Saline -Foul Odor after Cleansing No -Bioengineered Tissue No -Bleeding Controlled with Pressure -Other tunnel center-- 1.9///3:00--2. 5cm -Offloading No -Treatment Response Procedure Tolerated Well [See Physician Procedure note for Specifics] Pain Scale: 0-10 Numeric [Pain] -Is Patient Pain Free? Yes Debridement Note Post-Debridement Measurements/Treatment WC - Nurse 2 - General Ulcer CM Notes Start: 07/22/19 09:32 Freq: Status: Active Protocol: Activity Type Activity Date Activity User E-Sign Co-Sign Detail Recorded Client Recorded Date Recorded By Document 07/22/19 09:53 [id number] 07/22/19 09:57 Document 08/05/19 11:01 [id number] 08/05/19 11:04 07/22/19 08/05/19 09:53 11:01 Wound Center Nurse 2 #4- R LOWER ABD- POST OP -Time 09:53 11:02 -Correct Patient Yes Yes -Correct Side, Site, Position Yes Yes -Correct Procedure Yes Yes -Procedure Performed Yes Yes -Type of Procedure Debridement Debridement -Clinical Debridement Subcutaneous Subcutaneous -Post Debridement Size (cm) - Length 8 25 -Post Debridement Size (cm) - Width 27.0 7.5 -Post Debridement Size (cm) - Depth 7.1 7.3 -Total Square Cm 216.0 187.5 -Wound/Ulcer Outcome Not Healed Not Healed -Ulcer Cleansing Rinsed/ Rinsed/ Irrigated with Irrigated with Saline Saline -Foul Odor after Cleansing No No -Bioengineered Tissue No No -Bleeding Controlled with Pressure Pressure -Other [facility]-- 1.9///3:00--2. 5cm -Offloading No No -Treatment Response Procedure Procedure Tolerated Well Tolerated Well Pain Scale: 0-10 Numeric Is Patient Pain Free? Yes Yes Wound debrided: #4 Right lower abdominal wall. Laterality: Right Wound Grade/Stage: 2. Type of Debridement: Excisional debridement Anesthesia Used: 4% Lidocaine Solution Depth: Down to and including healthy tissue, in the subcutaneous layer Percentage of wound debrided: 100 Instrument Used: 7mm curette Tissue Removed: subcutaneous tissue. Severity: Fat Layer Exposed Amount of bleeding with debridement: Mild Bleeding Controlled with: Pressure Patient tolerated procedure well, - - A wound culture was obtained today. Assessment/Plan Assessment: 1. 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 2. Painful insulin nodules abdominal wall. 3. Diabetes mellitus. 4. ESRD requiring dialysis. 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 6. Abdominal panniculus. 7. Abdominal wall skin crease intertrigo. 8. s/p surgical preparation right lateral abdominal wall with incision and drainage and excisional debridement skin and subcutaneous tissue and fascia nonhealing infected diabetic necrotic ulcerated abscesses necrotizing soft tissue infection (377 cm2) and abdominal panniculectomy. Plan: Continue Dakin's dressing changes twice a day. There was some undermining medially. She would benefit from operative intervention with excisional debridement and complex secondary wound closure. She would have drains in for several days and wear an abdominal binder. Patient is interested in surgical closure and voices understanding. There was a wound culture from 06/03/19 that showed Proteus mirabilis, Anaerobic cocci, and Bacteroides fragilis. She was placed on Augmentin and finished them. Another wound culture was done today as a preop culture. A positive culture will necessitate antibiotic therapy. Prealbumin from 04/29/19 was 19.1. Encouraged nutritional supplementation with protein to help the healing process. Surgery will be done under general anesthesia with a surgical observation overnight stay in the hospital. Patient was informed of the risks and complications of the procedure including alternatives to surgery. These were discussed with her personally. She voices understanding and wishes to proceed. Followup 2 weeks. Code Visit 111xxx-113xx: [id number] Vicky subq tissue 20 sq cm/< - ICD-10 - E11.622, I96, L02.211, M79.89, R10.9, T88.9xxA, N18.6, E83.59, E65, L30.4 Add On Codes: 23592 Vicky subq tissue add-on - X 9 Units ICD-10 - E11.622, I96, L02.211, M79.89, R10.9, T88.9xxA, N18.6, E83.59, E65, L30.4
== END 2019-08-17 23:59 ==
LOC: WC 10:30
PROVIDERS: Family Provider Internal Medicine Geriatric Medicine; PCP Internal Medicine Geriatric Medicine; Referring Provider Nurse Practitioner Family; Visit Provider Nurse Practitioner Family
DX: E11.622 Type 2 diabetes mellitus with other skin ulcer (principal); E11.22 Type 2 diabetes mellitus with diabetic chronic kidney disease; N18.6 End stage renal disease; Z99.2 Dependence on renal dialysis; E83.59 Other disorders of calcium metabolism; E65 Localized adiposity; L98.492 Non-pressure chronic ulcer of skin of other sites with fat layer exposed; L30.4 Erythema intertrigo
CPT/HCPCS: 11042; 11045; 87070; 87075; 87077; 87186; 87205

== ENCOUNTER 2019-09-16 10:30 | Outpatient (RCR) | payer OTHER, MEDICAID, SELFPAY ==
[2019-08-18 00:42] VITALS: BP 147/88; PULSE 96; RESP 16; TEMP 36.3
[2019-08-19 10:16] VITALS: BP 129/70; PULSE 104; RESP 20; TEMP 36.8; BMI 45.7
--- NOTE | 2019-08-19 16:18 | PN.PCM_ITS ---
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 Status: Chronic Code(s): L98.492 - Non-pressure chronic ulcer of skin of other sites with fat layer exposed (2) Abdominal panniculus, symptomatic Status: Chronic Code(s): E65 - Localized adiposity (3) Intertrigo Status: Chronic Code(s): L30.4 - Erythema intertrigo Comment: abdominal wall skin crease intertrigo (4) Calciphylaxis Status: Chronic Code(s): E83.59 - Other disorders of calcium metabolism (5) ESRD on dialysis Status: Chronic Code(s): N18.6 - End stage renal disease; Z99.2 - Dependence on renal dialysis (6) DM2 (diabetes mellitus, type 2) Status: Chronic Qualifiers: Diabetes mellitus 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 History of Wound: Surgery 04/26/19 - Surgical preparation right lateral abdominal wall with incision and drainage and excisional debridement skin and subcutaneous tissue and fascia nonhealing infected diabetic necrotic ulcerated abscesses necrotizing soft tissue infection (377 cm2) and abdominal panniculectomy. Wound care - Dakin's. She has a new excoriated area on the right lower abdomen skin fold and left abdomen superfical skin tear. Will place Aquacel Ag daily to these areas. Operative culture - Proteus mirabilis, Pseudomonas aeroginosa, Staphylococcus aureus, and Anaerobic cocci. She was treated with Vancomycin and Zosyn in the hospital and was discharged on Cipro and Augmentin and has finished them. Repeat wound culture on 06/03/19 showed Proteus mirabilis, Anaerobic cocci, and Bacteroides fragilis. Wound cultures obtained 08/05/19 were positive for Proteus mirabilis, MRSA, Corynebacterium striatum, and Prevotella melaninogenica. She was placed on Augmentin and Zyvox. CT Abdomen/Pelvis from 04/25/19 showed 3.6 cm x 5.3 cm ill-defined soft tissue density in deep subcutaneous tissues overlying the posterior right lateral abdominal wall. The overlying skin is unremarkable.. Prealbumin from 04/29/19 was 19.1. Encouraged nutritional supplementation with protein to help the healing process. Today she denies fever. Her appetite is ok. Progress of Wound: Stabled. She has a superficial wound on her left abdomen above her ulcer and a new excoriated area on the lower right abdomen in a skin fold. - Physical Exam Vital Signs Temp Pulse Resp BP 98.2 F 104 H 20 H 129/70 H 08/19/19 10:16 08/19/19 10:16 08/19/19 10:16 08/19/19 10:16 General: Alert, Oriented x3, Cooperative HEENT: Atraumatic Oral: Moist Mucosa Lungs: Normal air movement Cardiovascular: Regular rate Abdomen: Soft, Obese Extremities: Capillary Refill Less than 3 Seconds Skin: Ulcer/ Wound - lower abdominal ulcer with new area on left above ulcer and right lower abdomen in a skin fold. Wound Measurements and Assessment WC - Nurse 1 - General Ulcer Measurement Start: 08/19/19 10:15 Freq: Status: Active Protocol: Activity Type Activity Date Activity User E-Sign Co-Sign Detail Recorded Client Recorded Date Recorded By Document 08/19/19 10:16 DL [id number] 08/19/19 10:26 DL 08/19/19 10:16 Wound Center Nurse 1 [Ulcer Assessment] #4- R LOWER ABD- POST OP -Combined with other wound No -Current Size (cm) - Length 5.0 -Current Size (cm) - Width 26.1 -Current Size (cm) - Depth 5.0 -Total Square Cm 130.50 -Tunneling Yes -Tunneling Position (O'clock) 12 -Tunneling Distance (cm) 2.5 -Tunneling Position #2 (O'clock) 3 -Tunneling Distance #2 (cm) 3.6 -Undermining/Tunneling No -Circular Undermining No -Exudate Amt Large -Exudate Type Serosanguineous -Wound Margin Distinct, Outline Attached -Granulation Amt Large (67-100%) -Granulation Quality Red -Slough/Fibrin Yes -Necrosis Amt Small (1-33%) -Necrotic Tissue Type Adherent Slough -Structure Exposed N/A -Texture (Leti-wound Skin Appearance) Assessed, Scarring -Moisture (Leti-wound Skin Appearance No Abnormality, ) Assessed -Color (Leti-wound Skin Appearance) No Abnormality, Assessed -Temperature (Leti-wound Skin No Abnormality Appearance) (Pt Warm) -Tenderness on Palpation (Leti-wound No Skin Appearance) -Ulcer Cleansing soap and water -Foul Odor after Cleansing No -Anesthetic Used 4% Lidocaine Solution [Edema Assessment] -Lower Limb Edema Present No WC - Nurse 2 - General Ulcer CM Notes Start: 08/19/19 10:15 Freq: Status: Active Protocol: Activity Type Activity Date Activity User E-Sign Co-Sign Detail Recorded Client Recorded Date Recorded By Document 08/19/19 10:46 MARIA GUADALUPE [id number] 08/19/19 10:51 MARIA GUADALUPE 08/19/19 10:46 Wound Center Nurse 2 [Procedure/Treatment] 6-right groin -Time 10:51 -Correct Patient Yes -Correct Side, Site, Position Yes -Correct Procedure Yes -Procedure Performed Yes -Type of Procedure Debridement -Clinical Debridement Subcutaneous -Post Debridement Size (cm) - Length 0.3 -Post Debridement Size (cm) - Width 4 -Post Debridement Size (cm) - Depth 0.1 -Total Square Cm 1.2 -Wound/Ulcer Outcome Not Healed -Ulcer Cleansing Rinsed/ Irrigated with Saline -Foul Odor after Cleansing No -Bioengineered Tissue No -Bleeding Controlled with Pressure -Offloading No -Treatment Response Procedure Tolerated Well 5-left side abdomen -Time 10:49 -Correct Patient Yes -Correct Side, Site, Position Yes -Correct Procedure Yes -Procedure Performed Yes -Type of Procedure Debridement -Clinical Debridement Subcutaneous -Post Debridement Size (cm) - Length 2.0 -Post Debridement Size (cm) - Width 2.5 -Post Debridement Size (cm) - Depth 0.2 -Total Square Cm 5.00 -Wound/Ulcer Outcome Not Healed -Ulcer Cleansing Rinsed/ Irrigated with Saline -Foul Odor after Cleansing No -Bioengineered Tissue No -Bleeding Controlled with Pressure -Offloading No -Treatment Response Procedure Tolerated Well #4- R LOWER ABD- POST OP -Time 10:47 -Correct Patient Yes -Correct Side, Site, Position Yes -Correct Procedure Yes -Procedure Performed Yes -Type of Procedure Debridement -Clinical Debridement Subcutaneous -Post Debridement Size (cm) - Length 6.5 -Post Debridement Size (cm) - Width 26.0 -Post Debridement Size (cm) - Depth 5.0 -Total Square Cm 169.00 -Wound/Ulcer Outcome Not Healed -Ulcer Cleansing Rinsed/ Irrigated with Saline -Foul Odor after Cleansing No -Bioengineered Tissue No -Bleeding Controlled with Pressure -Offloading No -Treatment Response Procedure Tolerated Well [See Physician Procedure note for Specifics] Pain Scale: 0-10 Numeric [Pain] -Is Patient Pain Free? Yes Musculoskeletal: No Tenderness to Palpation of Joints or Extremities Neurological: Neuro grossly intact Psych/Mental Status: Normal Affect, Appropriate Debridement Note Post-Debridement Measurements/Treatment WC - Nurse 2 - General Ulcer CM Notes Start: 08/19/19 10:15 Freq: Status: Active Protocol: Activity Type Activity Date Activity User E-Sign Co-Sign Detail Recorded Client Recorded Date Recorded By Document 08/19/19 10:46 MARIA GUADALUPE [id number] 08/19/19 10:51 MARIA GUADALUPE 08/19/19 10:46 Wound Center Nurse 2 6-right groin -Time 10:51 -Correct Patient Yes -Correct Side, Site, Position Yes -Correct Procedure Yes -Procedure Performed Yes -Type of Procedure Debridement -Clinical Debridement Subcutaneous -Post Debridement Size (cm) - Length 0.3 -Post Debridement Size (cm) - Width 4 -Post Debridement Size (cm) - Depth 0.1 -Total Square Cm 1.2 -Wound/Ulcer Outcome Not Healed -Ulcer Cleansing Rinsed/ Irrigated with Saline -Foul Odor after Cleansing No -Bioengineered Tissue No -Bleeding Controlled with Pressure -Offloading No -Treatment Response Procedure Tolerated Well 5-left side abdomen -Time 10:49 -Correct Patient Yes -Correct Side, Site, Position Yes -Correct Procedure Yes -Procedure Performed Yes -Type of Procedure Debridement -Clinical Debridement Subcutaneous -Post Debridement Size (cm) - Length 2.0 -Post Debridement Size (cm) - Width 2.5 -Post Debridement Size (cm) - Depth 0.2 -Total Square Cm 5.00 -Wound/Ulcer Outcome Not Healed -Ulcer Cleansing Rinsed/ Irrigated with Saline -Foul Odor after Cleansing No -Bioengineered Tissue No -Bleeding Controlled with Pressure -Offloading No -Treatment Response Procedure Tolerated Well #4- R LOWER ABD- POST OP -Time 10:47 -Correct Patient Yes -Correct Side, Site, Position Yes -Correct Procedure Yes -Procedure Performed Yes -Type of Procedure Debridement -Clinical Debridement Subcutaneous -Post Debridement Size (cm) - Length 6.5 -Post Debridement Size (cm) - Width 26.0 -Post Debridement Size (cm) - Depth 5.0 -Total Square Cm 169.00 -Wound/Ulcer Outcome Not Healed -Ulcer Cleansing Rinsed/ Irrigated with Saline -Foul Odor after Cleansing No -Bioengineered Tissue No -Bleeding Controlled with Pressure -Offloading No -Treatment Response Procedure Tolerated Well Pain Scale: 0-10 Numeric Is Patient Pain Free? Yes Wound debrided: Lower abdomen ucler Type of Debridement: Excisional debridement Anesthesia Used: 4% Lidocaine Solution Depth: Down to and including healthy tissue, in the subcutaneous layer Percentage of wound debrided: 100 Instrument Used: 7mm curette Tissue Removed: subcutaneous tissue and slough Severity: Fat Layer Exposed Amount of bleeding with debridement: Mild Bleeding Controlled with: Pressure Patient tolerated procedure well Assessment/Plan Assessment: 1. 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 2. Painful insulin nodules abdominal wall. 3. Diabetes mellitus. 4. ESRD requiring dialysis. 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 6. Abdominal panniculus. 7. Abdominal wall skin crease intertrigo. 8. s/p surgical preparation right lateral abdominal wall with incision and drainage and excisional debridement skin and subcutaneous tissue and fascia nonhealing infected diabetic necrotic ulcerated abscesses necrotizing soft tissue infection (377 cm2) and abdominal panniculectomy. Plan: She has a new area on left abdomen that is superficial and on right lower abdomen in a skin fold. Place silver dressing daily on those two areas. Continue Dakin's dressing changes twice a day to the large ulcer. There was some undermining medially. She would benefit from operative intervention with excisional debridement and complex secondary wound closure. She would have drains in for several days and wear an abdominal binder. Patient is interested in surgical closure and voices understanding. There was a wound culture from 06/03/19 that showed Proteus mirabilis, Anaerobic cocci, and Bacteroides fragilis. She was placed on Augmentin and finished them. Wound culture from 08/05/19 was positive for Proteus mirabilis, MRSA, Corynebacterium striatum, and Prevotella melaninogenica. She was started on Augmentin and Zyvox. Prealbumin from 04/29/19 was 19.1. Encouraged nutritional supplementation with protein to help the healing process. Surgery will be done under general anesthesia with a surgical observation overnight stay in the hospital. Patient was informed of the risks and complications of the procedure including alternatives to surgery. These were discussed with her personally. She voices understanding and wishes to proceed. Followup 2 weeks. 111xxx-113xx: [id number] Vicky subq tissue 20 sq cm/< Add On Codes: [id number] Vicky subq tissue add-on - x8
[2019-09-02 10:43] VITALS: BP 167/86; PULSE 90; RESP 16; TEMP 35.7; BMI 45.7
--- NOTE | 2019-09-02 14:27 | PN.PCM_ITS ---
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 Status: Chronic Code(s): L98.492 - Non-pressure chronic ulcer of skin of other sites with fat layer exposed (2) Abdominal panniculus, symptomatic Status: Chronic Code(s): E65 - Localized adiposity (3) Intertrigo Status: Chronic Code(s): L30.4 - Erythema intertrigo Comment: abdominal wall skin crease intertrigo (4) Calciphylaxis Status: Chronic Code(s): E83.59 - Other disorders of calcium metabolism (5) ESRD on dialysis Status: Chronic Code(s): N18.6 - End stage renal disease; Z99.2 - Dependence on renal dialysis (6) DM2 (diabetes mellitus, type 2) Status: Chronic Qualifiers: Diabetes mellitus mcc insulin use: with remote computer terminal operator use Diabetes mellitus complication status: with kidney complications Diabetes mellitus complication detail: with chronic kidney disease Chronic kidney disease stage: stage 4 (severe) Qualified Code(s): E11.22 - Type 2 diabetes mellitus with diabetic chronic kidney disease; N18.4 - Chronic kidney disease, stage 4 (severe); Z79.4 - remote computer terminal operator (current) use of insulin Code(s): E11.9 - Type 2 diabetes mellitus without complications Type of Wound Date of Service: 09/02/19 Chief Complaint: Nonhealing diabetic ulcer right lower abdominal wall. History of Wound: Surgery 04/26/19 - Surgical preparation right lateral abdominal wall with incision and drainage and excisional debridement skin and subcutaneous tissue and fascia nonhealing infected diabetic necrotic ulcerated abscesses necrotizing soft tissue infection (377 cm2) and abdominal panniculectomy. Wound care - Dakin's moistened dressing to the large abdominal ulcer, that must be placed in the base of the ulcer. Currently she has light brown, leathery look to the base of the ulcer which is difficult to debride, the remaining ulcer is beefy pink. She has an excoriated area on the right lower abdomen skin fold and left abdomen superfical ulcer cluster, new area on left upper buttock stage 2. Will [address] Aquacel Ag daily to these areas. Operative culture - Proteus mirabilis, Pseudomonas aeroginosa, Staphylococcus aureus, and Anaerobic cocci. She was treated with Vancomycin and Zosyn in the hospital and was discharged on Cipro and Augmentin and has finished them. Repeat wound culture on 06/03/19 showed Proteus mirabilis, Anaerobic cocci, and Bacteroides fragilis. Wound cultures obtained 08/05/19 were positive for Proteus mirabilis, MRSA, Corynebacterium striatum, and Prevotella melaninogenica. She was placed on Augmentin and Zyvox. CT Abdomen/Pelvis from 04/25/19 showed 3.6 cm x 5.3 cm ill-defined soft tissue density in deep subcutaneous tissues overlying the posterior right lateral abdominal wall. The overlying skin is unremarkable.. Prealbumin from 04/29/19 was 19.1. Encouraged nutritional supplementation with protein to help the healing process. Today she denies fever. Her appetite is ok. Progress of Wound: The base of her large wound is darkening and getting a light brown coloring that looks leathery. It appears the Dakin's dressing is not getting placed into the base of the wound consistently. She has a superficial wound on her left abdomen above her ulcer and an excoriated area on the lower right abdomen in a skin fold. She has a new ulcer on left upper buttocks from pressure. It's a stage 2. - Physical Exam Vital Signs Temp Pulse Resp BP 96.2 F L 90 16 167/86 H 09/02/19 10:43 09/02/19 10:43 09/02/19 10:43 09/02/19 10:43 General: Alert, Oriented x3, Cooperative HEENT: Atraumatic Oral: Moist Mucosa Lungs: Normal air movement Cardiovascular: Regular rate Abdomen: Obese Extremities: Capillary Refill Less than 3 Seconds Skin: Ulcer/ Wound - Large abdominal ulcer, right lower abdomen/groin skin fold ulcer that is superficial, left upper abdominal superficial cluster ulcers, new left buttock ulcer, stage 2 Wound Measurements and Assessment WC - Nurse 1 - General Ulcer Measurement Start: 08/19/19 10:15 Freq: Status: Active Protocol: Activity Type Activity Date Activity User E-Sign Co-Sign Detail Recorded Client Recorded Date Recorded By Document 09/02/19 10:43 [facility] [id number] 09/02/19 10:52 BM 09/02/19 10:43 Wound Center Nurse 1 [Ulcer Assessment] #7- L GLUTEAL FOLD -Combined with other wound No -Current Size (cm) - Length 1.6 -Current Size (cm) - Width 2 -Current Size (cm) - Depth 0.1 -Total Square Cm 3.2 -Photo Taken No -Epithelialization None Present -Tunneling No -Undermining/Tunneling No -Circular Undermining No -Exudate Amt None Present -Wound Margin Distinct, Outline Attached -Granulation Amt Medium (34-66%) -Granulation Quality Red -Slough/Fibrin Yes -Necrosis Amt Medium (34-66%) -Necrotic Tissue Type Adherent Slough -Texture (Leti-wound Skin Appearance) Assessed -Moisture (Leti-wound Skin Appearance Assessed ) -Color (Leti-wound Skin Appearance) Assessed, Erythema -Temperature (Leti-wound Skin No Abnormality Appearance) (Pt Warm) -Tenderness on Palpation (Leti-wound Yes Skin Appearance) -Ulcer Cleansing Rinsed/ Irrigated with Saline -Foul Odor after Cleansing No -Anesthetic Used 5% Lidocaine Gel 6-right groin -Combined with other wound No -Current Size (cm) - Length 2 -Current Size (cm) - Width 0.2 -Current Size (cm) - Depth 0.1 -Total Square Cm 0.4 -Photo Taken No -Epithelialization Small 1-33% -Tunneling No -Undermining/Tunneling No -Circular Undermining No -Exudate Amt Small -Exudate Type Serosanguineous -Wound Margin Flat & Intact -Granulation Amt Large (67-100%) -Granulation Quality Red -Slough/Fibrin Yes -Necrosis Amt Small (1-33%) -Necrotic Tissue Type Adherent Slough -Structure Exposed None/Limited to Skin Breakdown -Texture (Leti-wound Skin Appearance) Assessed, Scarring -Moisture (Leti-wound Skin Appearance Assessed ) -Color (Leti-wound Skin Appearance) Assessed -Temperature (Leti-wound Skin No Abnormality Appearance) (Pt Warm) -Tenderness on Palpation (Leti-wound No Skin Appearance) -Ulcer Cleansing Rinsed/ Irrigated with Saline -Foul Odor after Cleansing No -Anesthetic Used 4% Lidocaine Solution 5-left side abdomen -Combined with other wound No -Current Size (cm) - Length 0.1 -Current Size (cm) - Width 0.1 -Current Size (cm) - Depth 0.1 -Total Square Cm 0.01 -Photo Taken No -Epithelialization Large 67-100% -Tunneling No -Undermining/Tunneling No -Circular Undermining No -Exudate Amt None Present -Wound Margin Flat & Intact -Granulation Amt Medium (34-66%) -Granulation Quality Red -Slough/Fibrin Yes -Necrosis Amt Small (1-33%) -Necrotic Tissue Type Adherent Slough -Texture (Leti-wound Skin Appearance) Assessed, Scarring -Moisture (Leti-wound Skin Appearance Assessed,Dry/ ) Scaly -Color (Leti-wound Skin Appearance) Assessed -Temperature (Leti-wound Skin No Abnormality Appearance) (Pt Warm) -Tenderness on Palpation (Leti-wound No Skin Appearance) -Ulcer Cleansing Rinsed/ Irrigated with Saline -Foul Odor after Cleansing No -Anesthetic Used 4% Lidocaine Solution #4- R LOWER ABD- POST OP -Combined with other wound No -Current Size (cm) - Length 5 -Current Size (cm) - Width 22.7 -Current Size (cm) - Depth 5.2 -Total Square Cm 113.5 -Photo Taken No -Epithelialization Small 1-33% -Tunneling No -Undermining/Tunneling No -Circular Undermining No -Exudate Amt Large -Exudate Type Serosanguineous -Wound Margin Thickened -Granulation Amt Large (67-100%) -Granulation Quality Red -Slough/Fibrin Yes -Necrosis Amt None Present (0 %) -Texture (Leti-wound Skin Appearance) Assessed, Scarring -Moisture (Leti-wound Skin Appearance Assessed ) -Color (Leti-wound Skin Appearance) Assessed -Temperature (Leti-wound Skin No Abnormality Appearance) (Pt Warm) -Tenderness on Palpation (Leti-wound Yes Skin Appearance) -Ulcer Cleansing Rinsed/ Irrigated with Saline -Foul Odor after Cleansing No -Anesthetic Used 4% Lidocaine Solution WC - Nurse 2 - General Ulcer CM Notes Start: 08/19/19 10:15 Freq: Status: Active Protocol: Activity Type Activity Date Activity User E-Sign Co-Sign Detail Recorded Client Recorded Date Recorded By Document 09/02/19 11:12 MARIA GUADALUPE [id number] 09/02/19 11:16 MARIA GUADALUPE 09/02/19 11:12 Wound Center Nurse 2 [Procedure/Treatment] #7- L GLUTEAL FOLD -Time 11:13 -Correct Patient Yes -Correct Side, Site, Position Yes -Correct Procedure Yes -Procedure Performed Yes -Type of Procedure Debridement -Clinical Debridement Subcutaneous -Post Debridement Size (cm) - Length 1.5 -Post Debridement Size (cm) - Width 1.5 -Post Debridement Size (cm) - Depth 0.1 -Total Square Cm 2.25 -Wound/Ulcer Outcome Not Healed -Ulcer Cleansing Rinsed/ Irrigated with Saline -Foul Odor after Cleansing No -Bioengineered Tissue No -Bleeding Controlled with Pressure -Offloading No -Treatment Response Procedure Tolerated Well 6-right groin -Time 11:14 -Correct Patient Yes -Correct Side, Site, Position Yes -Correct Procedure Yes -Procedure Performed Yes -Type of Procedure Debridement -Clinical Debridement Subcutaneous -Post Debridement Size (cm) - Length 0.2 -Post Debridement Size (cm) - Width 2.0 -Post Debridement Size (cm) - Depth 0.1 -Total Square Cm 0.40 -Wound/Ulcer Outcome Not Healed -Ulcer Cleansing Rinsed/ Irrigated with Saline -Foul Odor after Cleansing No -Bioengineered Tissue No -Bleeding Controlled with Pressure -Offloading No -Treatment Response Procedure Tolerated Well 5-left side abdomen -Time 11:14 -Correct Patient Yes -Correct Side, Site, Position Yes -Correct Procedure Yes -Procedure Performed Yes -Type of Procedure Debridement -Clinical Debridement Subcutaneous -Post Debridement Size (cm) - Length 7.0 -Post Debridement Size (cm) - Width 5.5 -Post Debridement Size (cm) - Depth 0.1 -Total Square Cm 38.50 -Wound/Ulcer Outcome Not Healed -Ulcer Cleansing Rinsed/ Irrigated with Saline -Foul Odor after Cleansing No -Bioengineered Tissue No -Bleeding Controlled with Pressure -Offloading No -Treatment Response Procedure Tolerated Well #4- R LOWER ABD- POST OP -Time 11:14 -Correct Patient Yes -Correct Side, Site, Position Yes -Correct Procedure Yes -Procedure Performed Yes -Type of Procedure Debridement -Clinical Debridement Subcutaneous -Post Debridement Size (cm) - Length 3.0 -Post Debridement Size (cm) - Width 23.0 -Post Debridement Size (cm) - Depth 5.0 -Total Square Cm 69.00 -Wound/Ulcer Outcome Not Healed -Other tunnel at 2:00- --5.5cm -Offloading No -Treatment Response Procedure Tolerated Well [See Physician Procedure note for Specifics] Pain Scale: 0-10 Numeric [Pain] -Is Patient Pain Free? Yes Musculoskeletal: Tenderness Neurological: Neuro grossly intact Psych/Mental Status: Normal Affect, Appropriate Debridement Note Post-Debridement Measurements/Treatment WC - Nurse 2 - General Ulcer CM Notes Start: 08/19/19 10:15 Freq: Status: Active Protocol: Activity Type Activity Date Activity User E-Sign Co-Sign Detail Recorded Client Recorded Date Recorded By Document 08/19/19 10:46 MARIA GUADALUPE [id number] 08/19/19 10:51 Document 09/02/19 11:12 MARIA GUADALUPE [id number] 09/02/19 11:16 08/19/19 09/02/19 10:46 11:12 Wound Center Nurse 2 #7- L GLUTEAL FOLD -Time 11:13 -Correct Patient Yes -Correct Side, Site, Position Yes -Correct Procedure Yes -Procedure Performed Yes -Type of Procedure Debridement -Clinical Debridement Subcutaneous -Post Debridement Size (cm) - Length 1.5 -Post Debridement Size (cm) - Width 1.5 -Post Debridement Size (cm) - Depth 0.1 -Total Square Cm 2.25 -Wound/Ulcer Outcome Not Healed -Ulcer Cleansing Rinsed/ Irrigated with Saline -Foul Odor after Cleansing No -Bioengineered Tissue No -Bleeding Controlled with Pressure -Offloading No -Treatment Response Procedure Tolerated Well 6-right groin -Time 10:51 11:14 -Correct Patient Yes Yes -Correct Side, Site, Position Yes Yes -Correct Procedure Yes Yes -Procedure Performed Yes Yes -Type of Procedure Debridement Debridement -Clinical Debridement Subcutaneous Subcutaneous -Post Debridement Size (cm) - Length 0.3 0.2 -Post Debridement Size (cm) - Width 4 2.0 -Post Debridement Size (cm) - Depth 0.1 0.1 -Total Square Cm 1.2 0.40 -Wound/Ulcer Outcome Not Healed Not Healed -Ulcer Cleansing Rinsed/ Rinsed/ Irrigated with Irrigated with Saline Saline -Foul Odor after Cleansing No No -Bioengineered Tissue No No -Bleeding Controlled with Pressure Pressure -Offloading No No -Treatment Response Procedure Procedure Tolerated Well Tolerated Well 5-left side abdomen -Time 10:49 11:14 -Correct Patient Yes Yes -Correct Side, Site, Position Yes Yes -Correct Procedure Yes Yes -Procedure Performed Yes Yes -Type of Procedure Debridement Debridement -Clinical Debridement Subcutaneous Subcutaneous -Post Debridement Size (cm) - Length 2.0 7.0 -Post Debridement Size (cm) - Width 2.5 5.5 -Post Debridement Size (cm) - Depth 0.2 0.1 -Total Square Cm 5.00 38.50 -Wound/Ulcer Outcome Not Healed Not Healed -Ulcer Cleansing Rinsed/ Rinsed/ Irrigated with Irrigated with Saline Saline -Foul Odor after Cleansing No No -Bioengineered Tissue No No -Bleeding Controlled with Pressure Pressure -Offloading No No -Treatment Response Procedure Procedure Tolerated Well Tolerated Well #4- R LOWER ABD- POST OP -Time 10:47 11:14 -Correct Patient Yes Yes -Correct Side, Site, Position Yes Yes -Correct Procedure Yes Yes -Procedure Performed Yes Yes -Type of Procedure Debridement Debridement -Clinical Debridement Subcutaneous Subcutaneous -Post Debridement Size (cm) - Length 6.5 3.0 -Post Debridement Size (cm) - Width 26.0 23.0 -Post Debridement Size (cm) - Depth 5.0 5.0 -Total Square Cm 169.00 69.00 -Wound/Ulcer Outcome Not Healed Not Healed -Ulcer Cleansing Rinsed/ Irrigated with Saline -Foul Odor after Cleansing No -Bioengineered Tissue No -Bleeding Controlled with Pressure -Other tunnel at 2:00- --5.5cm -Offloading No No -Treatment Response Procedure Procedure Tolerated Well Tolerated Well Pain Scale: 0-10 Numeric Is Patient Pain Free? Yes Yes Wound debrided: lower abdomen large ulcer Laterality: Right Type of Debridement: Excisional debridement Anesthesia Used: 4% Lidocaine Solution, 5% Lidocaine Gel Depth: Down to and including healthy tissue, in the subcutaneous layer Percentage of wound debrided: 100 Instrument Used: 7mm curette Tissue Removed: Subcutaneous tissue and slough Severity: Fat Layer Exposed Amount of bleeding with debridement: Mild Bleeding Controlled with: Pressure Patient tolerated procedure well Patient has light brown leathery appearing tissue at the base of the ulcer where it does not appear to have been getting moistened Dakin's solution gauze placed there. It is very difficult to debride due to the thickness of it. - Additional Wound Wound debrided: Lower abdomen/groin skin fold Laterality: Right Type of Debridement: Excisional debridement Anesthesia Used: 5% Lidocaine Gel Depth: Down to and including healthy tissue, in the subcutaneous layer Percentage of wound debrided: 100 Instrument Used: 3mm curette Tissue Removed: Subcutaneous tissue and slough Severity: Limited To Skin Breakdown Amount of bleeding with debridement: Mild Bleeding Controlled with: Pressure Patient tolerated procedure: Patient tolerated procedure well - Additional Wound Wound debrided: Upper abdomen superficial cluster ulcers Laterality: Left Type of Debridement: Excisional debridement Anesthesia Used: 4% Lidocaine Solution Depth: Down to and including healthy tissue, in the subcutaneous layer Percentage of wound debrided: 100 Instrument Used: 3mm curette Tissue Removed: Subcutaneous tissue and slough Severity: Limited To Skin Breakdown Amount of bleeding with debridement: Mild Bleeding Controlled with: Pressure Patient tolerated procedure: Patient tolerated procedure well - Additional Wound Wound debrided: Left buttock superficial ulcer Laterality: Left Wound Grade/Stage: Stage II Type of Debridement: Excisional debridement Depth: Down to and including healthy tissue, in the subcutaneous layer Percentage of wound debrided: 100 Instrument Used: 3mm curette Tissue Removed: Subcutaneous tissue and slough Severity: Limited To Skin Breakdown Amount of bleeding with debridement: Mild Bleeding Controlled with: Pressure Patient tolerated procedure: Patient tolerated procedure well Assessment/Plan Assessment: 1. 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 2. Painful insulin nodules abdominal wall. 3. Diabetes mellitus. 4. ESRD requiring dialysis. 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 6. Abdominal panniculus. 7. Abdominal wall skin crease intertrigo. 8. s/p surgical preparation right lateral abdominal wall with incision and drainage and excisional debridement skin and subcutaneous tissue and fascia nonhealing infected diabetic necrotic ulcerated abscesses necrotizing soft tissue infection (377 cm2) and abdominal panniculectomy. Plan: She has small areas on left abdomen ulcer cluster that is superficial and on right lower abdomen in a skin fold. She has a new area on her left buttock that is stage II superficial ulcer. Place silver dressing daily on these areas. Continue Dakin's dressing changes twice a day to the large ulcer. There was some undermining medially. She also is having a light brown leathery appearance to the base of her large abdominal ulcer that is difficult to debride, this most likely is caused from the moistened Dakin's not getting placed to the base of the ulcer properly. She would benefit from operative intervention with excisional debridement and complex secondary wound closure. She would have drains in for several days and wear an abdominal binder. Patient is interested in surgical closure and voices understanding. There was a wound culture from 06/03/19 that showed Proteus mirabilis, Anaerobic cocci, and Bacteroides fragilis. She was placed on Augmentin and finished them. Wound culture from 08/05/19 was positive for Proteus mirabilis, MRSA, Corynebacterium striatum, and Prevotella melaninogenica. She was started on Augmentin and Zyvox. Prealbumin from 04/29/19 was 19.1. Encouraged nutritional supplementation with protein to help the healing process. Surgery will be done under general anesthesia with a surgical observation overnight stay in the hospital. Patient was informed of the risks and complications of the procedure including alternatives to surgery. These were discussed with her personally. She voices understanding and wishes to proceed. Followup 2 weeks. [id number]: [id number] Vicky subq tissue 20 sq cm/< Add On Codes: [id number] Vicky subq tissue add-on - x5
[2019-09-16 10:25] VITALS: BP 142/73; PULSE 93; RESP 18; TEMP 36.1; BMI 45.7
--- NOTE | 2019-09-16 13:16 | PCM.WC.PN ---
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 Status: Chronic Code(s): L98.492 - Non-pressure chronic ulcer of skin of other sites with fat layer exposed (2) Abdominal panniculus, symptomatic Status: Chronic Code(s): E65 - Localized adiposity (3) Intertrigo Status: Chronic Code(s): L30.4 - Erythema intertrigo Comment: abdominal wall skin crease intertrigo (4) Calciphylaxis Status: Chronic Code(s): E83.59 - Other disorders of calcium metabolism (5) ESRD on dialysis Status: Chronic Code(s): N18.6 - End stage renal disease; Z99.2 - Dependence on renal dialysis (6) DM2 (diabetes mellitus, type 2) Status: Chronic Qualifiers: Diabetes mellitus group home insulin use: with intermediate project manager use Diabetes mellitus complication status: with kidney complications Diabetes mellitus complication detail: with chronic kidney disease Chronic kidney disease stage: stage 4 (severe) Qualified Code(s): E11.22 - Type 2 diabetes mellitus with diabetic chronic kidney disease; N18.4 - Chronic kidney disease, stage 4 (severe); Z79.4 - extermination supervisor (current) use of insulin Code(s): E11.9 - Type 2 diabetes mellitus without complications Type of Wound Date of Service: 09/16/19 Chief Complaint: Nonhealing diabetic ulcer right lower abdominal wall. History of Wound: Surgery 04/26/19 - Surgical preparation right lateral abdominal wall with incision and drainage and excisional debridement skin and subcutaneous tissue and fascia nonhealing infected diabetic necrotic ulcerated abscesses necrotizing soft tissue infection (377 cm2) and abdominal panniculectomy. Wound care - Dakin's moistened dressing to the large abdominal ulcer, that must be placed in the base of the ulcer. The excoriated area on the right lower abdomen skin fold is healed. The left abdominal cluster and a new right abdominal skin tear will place collagen hydrogel daily. The left groin/gluteal fold will place silver daily. New area on left upper buttock stage 2, will apply Silver daily. Operative culture - Proteus mirabilis, Pseudomonas aeroginosa, Staphylococcus aureus, and Anaerobic cocci. She was treated with Vancomycin and Zosyn in the hospital and was discharged on Cipro and Augmentin and has finished them. Repeat wound culture on 06/03/19 showed Proteus mirabilis, Anaerobic cocci, and Bacteroides fragilis. Wound cultures obtained 08/05/19 were positive for Proteus mirabilis, MRSA, Corynebacterium striatum, and Prevotella melaninogenica. She was placed on Augmentin and Zyvox. CT Abdomen/Pelvis from 04/25/19 showed 3.6 cm x 5.3 cm ill-defined soft tissue density in deep subcutaneous tissues overlying the posterior right lateral abdominal wall. The overlying skin is unremarkable.. Prealbumin from 04/29/19 was 19.1. Encouraged nutritional supplementation with protein to help the healing process. Today she denies fever. Her appetite is ok. Progress of Wound: The base of her large wound is looking much better now that the Dakin's dressing is getting placed into the base of the wound consistently. She has a superficial wound on her left abdomen above her ulcer and new skin tear on right abdomen. The excoriated area on the lower right abdomen in a skin fold is healed today. - Physical Exam Vital Signs Temp Pulse Resp BP 96.9 F L 93 18 142/73 H 09/16/19 10:25 09/16/19 10:25 09/16/19 10:25 09/16/19 10:25 General: Alert, Oriented x3, Cooperative HEENT: Atraumatic Lungs: Normal air movement, Wheezes - Audible expiratory wheezes that eventually cleared after a good cough. Cardiovascular: Regular rate Abdomen: Obese Extremities: Capillary Refill Less than 3 Seconds Skin: Ulcer/ Wound - Lower abdominal ulcer, skin tear on right abdomen, left abdominal cluster (from previous skin tears), left gluteal fold ulcer. Wound Measurements and Assessment WC - Nurse 1 - General Ulcer Measurement Start: 08/19/19 10:15 Freq: Status: Active Protocol: Activity Type Activity Date Activity User E-Sign Co-Sign Detail Recorded Client Recorded Date Recorded By Document 09/16/19 10:25 DL [id number] 09/16/19 10:42 DL 09/16/19 10:25 Wound Center Nurse 1 [Ulcer Assessment] #7- L GLUTEAL FOLD -Current Size (cm) - Length 0.3 -Current Size (cm) - Width 6 -Current Size (cm) - Depth 0.1 -Total Square Cm 1.8 -Photo Taken No -Exudate Amt None Present -Wound Margin Flat & Intact -Granulation Amt Large (67-100%) -Granulation Quality [place] -Necrosis Amt None Present (0 %) -Structure Exposed N/A -Texture (Leti-wound Skin Appearance) No Abnormality, Scarring -Moisture (Leti-wound Skin Appearance No Abnormality ) -Color (Leti-wound Skin Appearance) Erythema -Temperature (Leti-wound Skin No Abnormality Appearance) (Pt Warm) -Tenderness on Palpation (Leti-wound No Skin Appearance) -Ulcer Cleansing Wound Cleanser -Foul Odor after Cleansing No -Anesthetic Used 4% Lidocaine Solution 5-left side abdomen -Current Size (cm) - Length 2 -Current Size (cm) - Width 5.5 -Current Size (cm) - Depth 0.1 -Total Square Cm 11.0 -Photo Taken No -Exudate Amt Small -Exudate Type Serosanguineous -Wound Margin Indistinct, Non -Visible -Granulation Amt Large (67-100%) -Granulation Quality [place] -Necrosis Amt Small (1-33%) -Necrotic Tissue Type Adherent Slough -Structure Exposed N/A -Moisture (Leti-wound Skin Appearance No Abnormality ) -Color (Leti-wound Skin Appearance) Rubor -Temperature (Leti-wound Skin No Abnormality Appearance) (Pt Warm) -Tenderness on Palpation (Leti-wound No Skin Appearance) -Ulcer Cleansing Wound Cleanser -Foul Odor after Cleansing No -Anesthetic Used 4% Lidocaine Solution #4- R LOWER ABD- POST OP -Current Size (cm) - Length 3 -Current Size (cm) - Width 23 -Current Size (cm) - Depth 5.3 -Total Square Cm 69 -Tunneling Position (O'clock) 2 -Tunneling Distance (cm) 2.2 -Exudate Amt Medium -Exudate Type Yellow/Green -Wound Margin Distinct, Outline Attached -Granulation Amt Medium (34-66%) -Granulation Quality Red -Necrosis Amt Medium (34-66%) -Necrotic Tissue Type Adherent Slough -Structure Exposed N/A -Texture (Leti-wound Skin Appearance) Scarring -Moisture (Leti-wound Skin Appearance No Abnormality ) -Color (Leti-wound Skin Appearance) Rubor -Temperature (Leti-wound Skin No Abnormality Appearance) (Pt Warm) -Tenderness on Palpation (Leti-wound No Skin Appearance) -Ulcer Cleansing Wound Cleanser -Foul Odor after Cleansing No -Anesthetic Used 4% Lidocaine Solution WC - Nurse 2 - General Ulcer CM Notes Start: 08/19/19 10:15 Freq: Status: Active Protocol: Activity Type Activity Date Activity User E-Sign Co-Sign Detail Recorded Client Recorded Date Recorded By Document 09/16/19 11:08 MW [id number] 09/16/19 11:20 MW 09/16/19 11:08 Wound Center Nurse 2 [Procedure/Treatment] #7- L GLUTEAL FOLD -Time 11:09 -Correct Patient Yes -Correct Side, Site, Position Yes -Correct Procedure Yes -Procedure Performed Yes -Type of Procedure Debridement -Clinical Debridement Subcutaneous -Post Debridement Size (cm) - Length 0.4 -Post Debridement Size (cm) - Width 6.0 -Post Debridement Size (cm) - Depth 0.1 -Total Square Cm 2.40 -Wound/Ulcer Outcome Not Healed -Ulcer Cleansing Rinsed/ Irrigated with Saline -Foul Odor after Cleansing No -Bioengineered Tissue No -Bleeding Controlled with Pressure -Offloading No -Treatment Response Procedure Tolerated Well 6-right groin -Time 11:09 -Correct Patient Yes -Correct Side, Site, Position Yes -Correct Procedure Yes -Procedure Performed No -Post Debridement Size (cm) - Length 0 -Post Debridement Size (cm) - Width 0 -Post Debridement Size (cm) - Depth 0 -Total Square Cm 0 -Wound/Ulcer Outcome Healed- Epithelialized -Treatment Response Procedure Tolerated Well 5-left side abdomen -Time 11:09 -Correct Patient Yes -Correct Side, Site, Position Yes -Correct Procedure Yes -Procedure Performed Yes -Type of Procedure Debridement -Clinical Debridement Subcutaneous -Post Debridement Size (cm) - Length 8.2 -Post Debridement Size (cm) - Width 6.8 -Post Debridement Size (cm) - Depth 0.1 -Total Square Cm 55.76 -Wound/Ulcer Outcome Not Healed -Ulcer Cleansing Rinsed/ Irrigated with Saline -Foul Odor after Cleansing No -Bioengineered Tissue No -Bleeding Controlled with Pressure -Offloading No -Treatment Response Procedure Tolerated Well #4- R LOWER ABD- POST OP -Time 11:09 -Correct Patient Yes -Correct Side, Site, Position Yes -Correct Procedure Yes -Procedure Performed Yes -Type of Procedure Debridement -Clinical Debridement Subcutaneous -Post Debridement Size (cm) - Length 3.0 -Post Debridement Size (cm) - Width 22.5 -Post Debridement Size (cm) - Depth 5.0 -Total Square Cm 67.50 -Wound/Ulcer Outcome Not Healed -Ulcer Cleansing Rinsed/ Irrigated with Saline -Foul Odor after Cleansing No -Bioengineered Tissue No -Bleeding Controlled with Pressure -Other tunnel @2, 3. 7cm -Offloading No -Treatment Response Procedure Tolerated Well [See Physician Procedure note for Specifics] Pain Scale: 0-10 Numeric [Pain] -Is Patient Pain Free? Yes Musculoskeletal: Tenderness Neurological: Neuro grossly intact Psych/Mental Status: Normal Affect, Appropriate Debridement Note Post-Debridement Measurements/Treatment WC - Nurse 2 - General Ulcer CM Notes Start: 08/19/19 10:15 Freq: Status: Active Protocol: Activity Type Activity Date Activity User E-Sign Co-Sign Detail Recorded Client Recorded Date Recorded By Document 08/19/19 10:46 [id number] 08/19/19 10:51 JF Document 09/02/19 11:12 JF [id number] 09/02/19 11:16 JF Document 09/16/19 11:08 MW [id number] 09/16/19 11:20 MW 08/19/19 09/02/19 09/16/19 10:46 11:12 11:08 Wound Center Nurse 2 #7- L GLUTEAL FOLD -Time 11:13 11:09 -Correct Patient Yes Yes -Correct Side, Site, Position Yes Yes -Correct Procedure Yes Yes -Procedure Performed Yes Yes -Type of Procedure Debridement Debridement -Clinical Debridement Subcutaneous Subcutaneous -Post Debridement Size (cm) - Length 1.5 0.4 -Post Debridement Size (cm) - Width 1.5 6.0 -Post Debridement Size (cm) - Depth 0.1 0.1 -Total Square Cm 2.25 2.40 -Wound/Ulcer Outcome Not Healed Not Healed -Ulcer Cleansing Rinsed/ Rinsed/ Irrigated with Irrigated with Saline Saline -Foul Odor after Cleansing No No -Bioengineered Tissue No No -Bleeding Controlled with Pressure Pressure -Offloading No No -Treatment Response Procedure Procedure Tolerated Well Tolerated Well 6-right groin -Time 10:51 11:14 11:09 -Correct Patient Yes Yes Yes -Correct Side, Site, Position Yes Yes Yes -Correct Procedure Yes Yes Yes -Procedure Performed Yes Yes No -Type of Procedure Debridement Debridement -Clinical Debridement Subcutaneous Subcutaneous -Post Debridement Size (cm) - Length 0.3 0.2 0 -Post Debridement Size (cm) - Width 4 2.0 0 -Post Debridement Size (cm) - Depth 0.1 0.1 0 -Total Square Cm 1.2 0.40 0 -Wound/Ulcer Outcome Not Healed Not Healed Healed- Epithelialized -Ulcer Cleansing Rinsed/ Rinsed/ Irrigated with Irrigated with Saline Saline -Foul Odor after Cleansing No No -Bioengineered Tissue No No -Bleeding Controlled with Pressure Pressure -Offloading No No -Treatment Response Procedure Procedure Procedure Tolerated Well Tolerated Well Tolerated Well 5-left side abdomen -Time 10:49 11:14 11:09 -Correct Patient Yes Yes Yes -Correct Side, Site, Position Yes Yes Yes -Correct Procedure Yes Yes Yes -Procedure Performed Yes Yes Yes -Type of Procedure Debridement Debridement Debridement -Clinical Debridement Subcutaneous Subcutaneous Subcutaneous -Post Debridement Size (cm) - Length 2.0 7.0 8.2 -Post Debridement Size (cm) - Width 2.5 5.5 6.8 -Post Debridement Size (cm) - Depth 0.2 0.1 0.1 -Total Square Cm 5.00 38.50 55.76 -Wound/Ulcer Outcome Not Healed Not Healed Not Healed -Ulcer Cleansing Rinsed/ Rinsed/ Rinsed/ Irrigated with Irrigated with Irrigated with Saline Saline Saline -Foul Odor after Cleansing No No No -Bioengineered Tissue No No No -Bleeding Controlled with Pressure Pressure Pressure -Offloading No No No -Treatment Response Procedure Procedure Procedure Tolerated Well Tolerated Well Tolerated Well #4- R LOWER ABD- POST OP -Time 10:47 11:14 11:09 -Correct Patient Yes Yes Yes -Correct Side, Site, Position Yes Yes Yes -Correct Procedure Yes Yes Yes -Procedure Performed Yes Yes Yes -Type of Procedure Debridement Debridement Debridement -Clinical Debridement Subcutaneous Subcutaneous Subcutaneous -Post Debridement Size (cm) - Length 6.5 3.0 3.0 -Post Debridement Size (cm) - Width 26.0 23.0 22.5 -Post Debridement Size (cm) - Depth 5.0 5.0 5.0 -Total Square Cm 169.00 69.00 67.50 -Wound/Ulcer Outcome Not Healed Not Healed Not Healed -Ulcer Cleansing Rinsed/ Rinsed/ Irrigated with Irrigated with Saline Saline -Foul Odor after Cleansing No No -Bioengineered Tissue No No -Bleeding Controlled with Pressure Pressure -Other tunnel at 2:00- tunnel @2, 3. --5.5cm 7cm -Offloading No No No -Treatment Response Procedure Procedure Procedure Tolerated Well Tolerated Well Tolerated Well Pain Scale: 0-10 Numeric Is Patient Pain Free? Yes Yes Yes Wound debrided: lower abdominal ulcer Laterality: Right Type of Debridement: Excisional debridement Anesthesia Used: 4% Lidocaine Solution, 5% Lidocaine Gel Depth: Down to and including healthy tissue, in the subcutaneous layer Percentage of wound debrided: 100 Instrument Used: 7mm curette Tissue Removed: Subcutaneous tissue and slough Severity: Fat Layer Exposed Amount of bleeding with debridement: Mild Bleeding Controlled with: Pressure Patient tolerated procedure well - Additional Wound Wound debrided: cluster ulcers Laterality: Left Assessment/Plan Active Problems (Last Reviewed 09/19/19 @ 01:[address] Eren Robledo MD) Severe sepsis (Acute) Assessment: 1. 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 2. Painful insulin nodules abdominal wall. 3. Diabetes mellitus. 4. ESRD requiring dialysis. 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 6. Abdominal panniculus. 7. Abdominal wall skin crease intertrigo. 8. s/p surgical preparation right lateral abdominal wall with incision and drainage and excisional debridement skin and subcutaneous tissue and fascia nonhealing infected diabetic necrotic ulcerated abscesses necrotizing soft tissue infection (377 cm2) and abdominal panniculectomy. Plan: Wound care - Dakin's moistened dressing to the large abdominal ulcer, that must be placed in the base of the ulcer. The excoriated area on the right lower abdomen skin fold is healed. The left abdominal cluster and a new right abdominal skin tear will place collagen hydrogel daily. The left groin/gluteal fold will place silver daily. She has small areas on left abdomen ulcer cluster that is superficial and on right lower abdomen in a skin fold. She has a new area on her left buttock that is stage II superficial ulcer. Place silver dressing daily on these areas. She would benefit from operative intervention with excisional debridement and complex secondary wound closure. She would have drains in for several days and wear an abdominal binder. Patient is interested in surgical closure and voices understanding. There was a wound culture from 06/03/19 that showed Proteus mirabilis, Anaerobic cocci, and Bacteroides fragilis. She was placed on Augmentin and finished them. Wound culture from 08/05/19 was positive for Proteus mirabilis, MRSA, Corynebacterium striatum, and Prevotella melaninogenica. She was started on Augmentin and Zyvox. Prealbumin from 04/29/19 was 19.1. Encouraged nutritional supplementation with protein to help the healing process. Surgery will be done under general anesthesia with a surgical observation overnight stay in the hospital. Patient was informed of the risks and complications of the procedure including alternatives to surgery. These were discussed with her personally. She voices understanding and wishes to proceed. Followup 2 weeks. [id number]: [id number] Vicky subq tissue 20 sq cm/< Add On Codes: 16937 Vicky subq tissue add-on - x6
== END 2019-09-17 23:59 ==
LOC: WC 10:30
PROVIDERS: Family Provider Internal Medicine Geriatric Medicine; PCP Internal Medicine Geriatric Medicine; Referring Provider Nurse Practitioner Family; Visit Provider Nurse Practitioner Family
DX: E11.622 Type 2 diabetes mellitus with other skin ulcer (principal); E11.22 Type 2 diabetes mellitus with diabetic chronic kidney disease; N18.6 End stage renal disease; L30.4 Erythema intertrigo; E83.59 Other disorders of calcium metabolism; E65 Localized adiposity; Z99.2 Dependence on renal dialysis; Z79.4 Long term (current) use of insulin; L98.492 Non-pressure chronic ulcer of skin of other sites with fat layer exposed; Z86.14 Personal history of Methicillin resistant Staphylococcus aureus infection; L98.411 Non-pressure chronic ulcer of buttock limited to breakdown of skin
CPT/HCPCS: 11042; 11045

== ENCOUNTER 2019-09-18 22:48 | Inpatient (IN) | payer OTHER, MEDICAID, SELFPAY ==
[2019-09-18 22:50] VITALS: BP 132/73; PULSE 113; RESP 19; TEMP 37.6; O2SAT 92; BMI 47.4
[2019-09-18 22:56] VITALS: BP 98/81; PULSE 110; RESP 17; TEMP 37.7; O2SAT 99
--- NOTE | 2019-09-18 22:59 | RAD_ITS ---
STUDY: X-RAY CHEST REASON FOR EXAM: Female, 59 years old. FEVER, TECHNIQUE: AP portable COMPARISON: 06/27/2019 FINDINGS: Stable left dialysis catheter. The lungs demonstrate no focal lung consolidative changes. There is linear right lung base probable atelectasis. Normal size heart. Normal mediastinum and adam. Normal visualized pulmonary arteries. Normal visualized aortic arch and descending thoracic aorta. Normal visualized thoracic spine. Normal visualized ribs, clavicles, and shoulders. There is no demonstrated abnormality of the visualized soft tissue structures of the upper abdomen. RAD/Chest 1 View (Portable) IMPRESSION: Stable chest without evidence for focal lung consolidative changes. Electronically Signed: Chino Carey, at 0:30 EDT Tel , Service support ,
--- NOTE | 2019-09-18 22:59 | EKG12_ITS ---
Test Reason : FEVER Blood Pressure : / mmHG Vent. Rate : 111 BPM Atrial Rate : 111 BPM P-R Int : 146 ms QRS Dur : 084 ms QT Int : 328 ms P-R-T Axes : 029 -07 109 degrees QTc Int : 446 ms Sinus tachycardia Moderate voltage criteria for LVH, may be normal variant Cannot rule out Septal infarct , age undetermined T wave abnormality, consider lateral ischemia Abnormal ECG Confirmed by LAST KRUSE, RONNIE ([id number]), technical editor DONNA PENA ([id number] on 09/24/2019 2:06:06 PM Referred By: FADUMO Confirmed By:JIAN NI MD
--- NOTE | 2019-09-18 23:01 | ED.DCSUM_ITS ---
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 Patient has history of end-stage renal disease and is on dialysis. She still makes urine, but over the past 2 days, she has had no urinary output. She is began to have fevers at her skilled facility. The patient does have nonhealing abdominal wound at that she follows at the wound center for. She is currently on oral antibiotics. She has had a scant cough but denies any shortness of breath. She does describe myalgias and arthralgias. History is hard to gather from the patient. Prior similar symptoms: Yes Recent Illness/Hospitalization: Yes Past Medical History - Allergies and Home Meds Allergies/Adverse Reactions: Allergies latex Allergy (Verified 07/01/19 11:44) Hives Sulfa (Sulfonamide Antibiotics) Allergy (Verified 07/01/19 11:44) Rash codeine Adverse Reaction (Verified 07/01/19 11:44) Confusion Primary Care Physician: Marcela Kerr MD [Primary Care Provider] - Prior records reviewed: Yes Past Medical History: - - End-stage renal disease, atrial fibrillation, nonhealing abdominal wound Surgical History: cholecystectomy, - - Letter tubal ligation, cholecystectomy, right upper extremity fistula placement and eventual ligation, bilateral upper chest dialysis catheters with right now left upper chest in place. Smoking Status: Never smoker - Family History Maternal Family History: Family History (Last Updated 09/19/18 @ 07:27 by Rema Ocampo) Father Diabetes Mother Heart disease Family History: Reports: Cancer, Heart Disease Paternal Family History: Family History (Last Updated 09/19/18 @ 07:27 by Rema Ocampo) Father Diabetes Mother Heart disease Family History: Reports: Diabetes, Heart Disease, Hypertension Sibling Family History: Family History (Last Updated 09/19/18 @ 07:27 by Rema Ocampo) Father Diabetes Mother Heart disease Family History: Reports: Diabetes Review of Systems General: Reports: Chills, Fever Eyes: Denies: Visual changes - bilaterally, Diplopia ENT: Denies: Rhinorrhea, Sore throat Cardiovascular: Denies: Chest pain, Palpitations Respiratory: Reports: Cough Gastrointestinal: Reports: Nausea Genitourinary: Denies: Dysuria, Hematuria, Frequency Musculoskeletal: Reports: Myalgias, Arthralgias Skin: Denies: Rash, Wounds Neurological: Denies: Headache, Weakness, Numbness Physical Exam Vital Signs/Narrative: Vital Signs Temp Pulse Resp BP Pulse Ox 09/18/19 22:50 99.6 F H 113 H 19 H 132/73 H 92 Inital Vital Signs reviewed: Yes General: Well nourished, Well developed, No Acute Distress Head: Normocephalic, Atraumatic Eyes: Perrl, EOMI ENT: Moist mucous membranes, No rhinorrhea Neck: Supple, Nontender Cardiovascular: Regular rate, Regular rhythm, No murmurs Respiratory: No distress, CTA bilaterally, Chest nontender Abdomen: Soft, Nontender, Nondistended, Normal bowel sounds, - - Wound site is well approximated. Scant drainage on the wet to dry dressing. No significant cellulitis. Mild erythema of the left lower extremity. Back: Nontender, Normal Inspection Extremities: Nontender, No edema Skin: Normal color, No rash Neurological: Alert, Oriented x3, Cranial nerves II-XII grossly intact, Normal Strength, Normal Sensation Psychological: Normal affect, Normal Mood Diagnostic/Tx/Re-eval Chest X-Ray - ED: 2 View, Normal, Mediastinum, Chronic Changes, Cardiomegaly Abnormal Lab Results 09/18/19 09/18/19 09/18/19 23:05 23:05 23:05 WBC 17.4 H RBC 4.01 L Hgb 11.5 L Hct 37.4 MCV 93.3 MCH 28.7 MCHC 30.7 L RDW Std Deviation 72.7 H RDW Coeff of Perico 21.4 H Plt Count 124 L MPV 12.2 H Immature Gran % (Auto) 2.400 H Neut % (Auto) 82.0 H Lymph % (Auto) 7.3 L [place] % (Auto) 8.1 Eos % (Auto) 0.0 Baso % (Auto) 0.2 Absolute Neuts (auto) 14.3 H Absolute Lymphs (auto) 1.27 Nucleated RBC % 0.4 Differential Comment SCANNED Anisocytosis 1+ PT 23.6 H INR 2.1 APTT 33.8 Specimen Type Sample Site pH Bicarbonate Actual POC Total CO2 Base Excess O2 Saturation ABG pCO2 ABG pO2 Richard Test O2 Delivery Device Liter Flow Blood Gas Notified Whom Blood Gas Notified Time Sodium 137 Potassium 5.9 H Chloride 102 Carbon Dioxide 26.0 Anion Gap 9 BUN 65 H Creatinine 5.80 H Estim Creat Clear Calc 8.85 Est GFR (MDRD) Af Amer 10 L Est GFR (MDRD) Non-Af 8 L BUN/Creatinine Ratio 11.2 Glucose 66 L Lactic Acid Calcium 9.8 Total Bilirubin 0.50 AST 26 ALT 30 Alkaline Phosphatase 89 Total Protein 6.3 L Albumin 2.7 L Globulin 3.6 Albumin/Globulin Ratio 0.8 L 09/18/19 09/18/19 23:05 23:38 WBC RBC Hgb Hct MCV MCH MCHC RDW Std Deviation RDW Coeff of Perico Plt Count MPV Immature Gran % (Auto) Neut % (Auto) Lymph % (Auto) [place] % (Auto) Eos % (Auto) Baso % (Auto) Absolute Neuts (auto) Absolute Lymphs (auto) Nucleated RBC % Differential Comment Anisocytosis PT INR APTT Specimen Type ART Sample Site R Radial pH 7.44 Bicarbonate Actual 25.2 POC Total CO2 26 Base Excess 1 O2 Saturation 98 ABG pCO2 36.8 ABG pO2 93 Richard Test POS O2 Delivery Device Nasal Can Liter Flow 2.0 Blood Gas Notified Whom ED MD Blood Gas Notified Time 2335 Sodium Potassium Chloride Carbon Dioxide Anion Gap BUN Creatinine Estim Creat Clear Calc Est GFR (MDRD) Af Amer Est GFR (MDRD) Non-Af BUN/Creatinine Ratio Glucose Lactic Acid 1.9 Calcium Total Bilirubin AST ALT Alkaline Phosphatase Total Protein Albumin Globulin Albumin/Globulin Ratio - Rhythm Strip Rhythm Strip: Sinus Rhythm Rate: 80 Ectopy: None - EKG Initial EKG Interpretation: Sinus Rhythm, Sinus Tachycardia, Non-Specific ST Changes Prior: Unchanged - Medical Decision Making The patient presents to the emergency department with fever. The patient does have multiple potential sources for fever. She has a nonhealing abdominal wound that they have been doing wet-to-dry dressings. There is some scant purulence on the packing, but no significant surrounding cellulitis. Metabolic work-up was pursued with sepsis orders. Patient does have a leukocytosis. She has evidence of chronic kidney disease, but was mildly hypoglycemic so this was replaced with D50. Potassium is elevated but was moderately hemolyzed. She does not have EKG changes that are concerning for hyperkalemia. Chest x-ray does show evidence of pulmonary edema, but the patient is due for dialysis tomorrow. Vargas catheter with temperature monitor was placed. Urine appeared to be saud pus, and the micro is currently pending. The patient was initially given vancomycin given history of staph wound. She will also be covered with Zosyn. With patient having leukocytosis, tachycardia, and fever she does meet criteria for sepsis. She was discussed with the hospitalist and will be admitted. Impression 1. Sepsis 2. UTI 3. Nonhealing abdominal wound 4. History of chronic kidney disease on dialysis ED Disposition - Plan for ED Patient: Referrals: Marcela Kerr MD [Primary Care Provider] -
[2019-09-18] MEDS: Acetaminophen 500 MG Tablet 1000 MG PO (23:08)
[2019-09-18 23:13] VITALS: TEMP 37.6; O2SAT 88
[2019-09-18 23:17] LABS: Absolute Lymphocyte Count 1.27 X10^3/uL (0.83-4.51); Absolute Neutrophil Count 14.3 X10^3/uL (2.0-7.7); Basophil# 0.04 X10^3/uL; Basophil% 0.2 % (0-1); Hematocrit 37.4 % (37-47); Hemoglobin 11.5 g/dL (12.0-15.0); Lymphocyte # 1.27 X10^3/ul (4.0); Lymphocyte % 7.3 % (19-41); Mean Corp Hgb Conc 30.7 g/dL (32-36); Mean Corpuscular Hgb 28.7 pg (27.0-32.0); Mean Corpuscular Volume 93.3 fL (81-99); Mean Platelet Vol. 12.2 fl (6.2-12.0); Monocyte# 1.41 X10^3/uL; Monocyte% 8.1 % (0-10); NRBC Flagged by Analyzer 0.4 % (0-5); Neutrophil # 14.28 X10^3/uL (2.7-7.7); POSITIVE MORPHOLOGY YES; Platelet Count 124 K/mm3 (150-450); RBC Distribution Width CV 21.4 % (11.6-14.6); RBC Distribution Width SD 72.7 fl (35.1-43.9); Red Blood Count 4.01 M/mm3 (4.2-5.4); White Blood Count 17.4 K/mm3 (4.4-11.0)
[2019-09-18] MEDS: 0.9% Normal Saline 1,000 ML 150 ML IV (23:17)
[2019-09-18 23:20] LABS: Differential Indicated SCAN CRITERIA MET
[2019-09-18 23:27] LABS: International Normalized Ratio 2.1; Prothrombin Time (Protime)PT. 23.6 SECONDS (11.7-14.9)
[2019-09-18 23:28] LABS: Partial Thromboplast Time 33.8 Seconds (24.1-36.2)
[2019-09-18 23:40] LABS: Lactic Acid 1.9 mmol/L (0.4-1.9)
[2019-09-18 23:44] LABS: ALB/GLOB Ratio 0.8 RATIO (0.9-2.4); AST(SGOT) 26 U/L (15-37); Alanine Aminotransfer ALT/SGPT 30 U/L (13-56); Albumin, Serum 2.7 g/dL (3.2-5.0); Alkaline Phosphatase 89 U/L (45-117); Anion Gap 9 (5-15); BUN 65 mg/dL (7-18); BUN/Creat Ratio 11.2 RATIO (10-20); Calcium,Total 9.8 mg/dL (8.5-10.1); Chloride 102 mmol/L (98-107); EST Glomerular Filtration Rate 8 mL/min (>60); Est Glom Filt Rate - Afr Amer 10 mL/min (>60); Estimated Creatinine Clearance 8.85 ml/min; Globulin 3.6 g/dL (2.2-4.2); Glucose 66 mg/dL (74-106); Potassium 5.9 mmol/L (3.5-5.1); Protein, Total 6.3 g/dL (6.4-8.2); Sodium Level 137 mmol/L (136-145)
[2019-09-18 23:45] LABS: Allen Test POS; Base Excess 1 mmol/L (-2 to +2); Bicarbonate 25.2 mmol/L (22-26); Blood Gas Specimen Type ART; O2 Delivery Device Nasal Can; PO2 93 mmHG (75-100); SITE R Radial; SO2 98 % (95-99); Time Given 2335; Total Carbon Dioxide 26 mmol/L; pCO2 36.8 mmHg (35-45); pH 7.44 (7.35-7.45)
[2019-09-18 23:54] LABS: Anisocytosis 1+; Differential Comment SCANNED
[2019-09-19] VITALS (14 sets, daily range): BP systolic 92–122; BP diastolic 28–89; PULSE 91–119; RESP 15–20; TEMP 36.6–37.5; O2SAT 93–100; BMI 45.5
--- NOTE | 2019-09-19 00:17 | HP.PCM_ITS ---
Problem List (1) Severe sepsis Status: Acute (2) Skin ulcer of abdominal wall with fat layer exposed Status: Chronic (3) Intertrigo Status: Chronic Comment: abdominal wall skin crease intertrigo (4) Abdominal panniculus, symptomatic Status: Chronic (5) Abdominal wall pain in right flank Status: Chronic (6) Skin necrosis Status: Chronic (7) Calciphylaxis Status: Chronic (8) ESRD on dialysis Status: Chronic (9) Cutaneous abscess of abdominal wall Status: Chronic (10) Type 2 diabetes mellitus with other skin ulcer Status: Chronic Comment: nonhealing infected diabetic ulcerated abscesses right lateral abdominal wall (11) Wound, open, abdominal wall, anterior Status: Chronic Qualifiers: Encounter type: initial encounter Qualified Code(s): S31.109A - Unspecified open wound of abdominal wall, unspecified quadrant without penetration into peritoneal cavity, initial encounter (12) Anxiety and depression Status: Chronic (13) ESRD (end stage renal disease) Status: Chronic (14) Morbid obesity Status: Chronic (15) Chronic diastolic CHF (congestive heart failure) Status: Chronic (16) CIDP (chronic inflammatory demyelinating polyneuropathy) Status: Chronic (17) Hyperlipidemia Status: Chronic Qualifiers: Hyperlipidemia type: unspecified Qualified Code(s): E78.5 - Hyperlipidemia, unspecified (18) Chronic kidney disease Status: Chronic Qualifiers: Chronic kidney disease stage: on chronic dialysis Qualified Code(s): N18.6 - End stage renal disease; Z99.2 - Dependence on renal dialysis (19) HTN (hypertension) Status: Chronic Qualifiers: Hypertension type: essential hypertension Qualified Code(s): I10 - Essential (primary) hypertension (20) Obesity Status: Chronic Qualifiers: Obesity type: unspecified obesity type Obesity classification: unspecified obesity classification Serious obesity comorbidity presence: unspecified whether serious comorbidity present Qualified Code(s): E66.9 - Obesity, unspecified (21) DM2 (diabetes mellitus, type 2) Status: Chronic Qualifiers: 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 The patient is a 59 year old F with a significant history of diabetes; CIDP; end-stage renal disease on dialysis (Monday; and Monday) who [facility] from [facility] with fever. Associated with her symptoms is lethargy and anorexia. Patient reported extensive sleepiness. At the emergency department her T-max was 99.6. Patient had tachycardia. Her oxygen on room air was 88% and she required supplemental oxygen. The patient had leukocytosis with bandemia. Her INR was elevated at 2.1. Of note patient takes Eliquis. Although patient is a dialysis patient she still makes some urine urine occasionally. On the day of presentation patient had not made any urine. A Vargas catheter was inserted at the ED and patient's urine look like pus. Patient has a chronic abdominal wound that he follows with Dr. Salamanca. Past Medical History Past Medical History (Chronic Problems): Chronic Problems (Last Reviewed 09/19/19 @ 01:[address] Eren Robledo MD) Skin ulcer of abdominal wall with fat layer exposed (Chronic) Intertrigo (Chronic) abdominal wall skin crease intertrigo Abdominal panniculus, symptomatic (Chronic) Abdominal wall pain in right flank (Chronic) Skin necrosis (Chronic) Calciphylaxis (Chronic) ESRD on dialysis (Chronic) Cutaneous abscess of abdominal wall (Chronic) Type 2 diabetes mellitus with other skin ulcer (Chronic) nonhealing infected diabetic ulcerated abscesses right lateral abdominal wall Wound, open, abdominal wall, anterior (Chronic) Anxiety and depression (Chronic) ESRD (end stage renal disease) (Chronic) Morbid obesity (Chronic) Chronic diastolic CHF (congestive heart failure) (Chronic) 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) Hyperlipidemia (Chronic) Chronic kidney disease (Chronic) HTN (hypertension) (Chronic) Obesity (Chronic) DM2 (diabetes mellitus, type 2) (Chronic) Medical History: Medical History (Last Reviewed 09/19/19 @ 01:[address] Eren Robledo MD) Problem with dialysis access (Inactive) T82.898A 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) G61.81 Hyperlipidemia (Chronic) E78.5 Chronic kidney disease (Chronic) N18.9 HTN (hypertension) (Chronic) I10 Obesity (Chronic) E66.9 DM2 (diabetes mellitus, type 2) (Chronic) E11.9 Anemia D64.9 GERD (gastroesophageal reflux disease) K21.9 Allergies latex Allergy (Verified 07/01/19 11:44) Hives Sulfa (Sulfonamide Antibiotics) Allergy (Verified 07/01/19 11:44) Rash codeine Adverse Reaction (Verified 07/01/19 11:44) Confusion Home Medications: Ambulatory Orders Medication Instructions Recorded Montelukast [Singulair] 10 mg PO DAILY 10/29/13 Sertraline HCl 125 mg PO DAILY 06/14/18 Pantoprazole Sodium [Protonix] 20 mg PO DAILY 06/20/18 Atorvastatin Calcium [Lipitor] 20 mg PO QHS 07/28/18 predniSONE tablet 30 mg PO DAILY 10/04/18 Sevelamer Carbonate [Renvela] 2,400 mg PO TIDCM 01/19/19 multivitamin 1 tab PO DAILY 04/03/19 Insulin Lispro [Admelog Solostar] 7 unit SQ QHS 04/25/19 Pregabalin [Lyrica] 150 mg PO Q12H 04/25/19 Apixaban [Eliquis] 5 mg PO BID #90 tab 05/03/19 Magnesium Hydroxide [Milk Of 30 ml PO DAILY PRN #1 udc 05/03/19 Magnesia] Amino AC/Protein Hydr/Whey Pro 30 ml PO QHS 05/27/19 [Liquacel Liquid Protein] Amino AC/Protein Hydr/Whey Pro 30 ml PO TID 05/27/19 [Liquacel Liquid Protein] Arginine/Ascorbate Sod/Pedro AC 1 ea PO BID 05/27/19 [Arginaid Powder] Bisacodyl [Dulcolax] 10 mg RECTAL DAILY PRN PRN 05/27/19 Hydrocodone/Acetaminophen [[place] 1 - 2 ea PO Q6H PRN 05/27/19 5-325 Tablet] Insulin Glargine,Hum.rec.anlog 70 unit SQ BREAKFAST 05/27/19 [Basaglar Kwikpen U-100] Sennosides/Docusate Sodium [Senna 2 ea PO BID 05/27/19 Plus 8.6-50 mg Softgel] Sodium Hypochlorite [Dakins 1 applic TOPICAL BID PRN PRN 05/28/19 Solution 0.25% (1/2 Strength)] Cetyl Alc/Stearyl Alc/Pg/Sls 1 applicatio TP DAILY 06/27/19 [Cetaphil Cream] Docusate Sodium [Colace] 100 mg PO DAILY #20 cap 06/27/19 Lactobacillus Acidophilus 1 tab PO TID 06/27/19 [Acidophilus] SimETHICONE [Mylicon] 160 mg PO TID 06/27/19 Activated Charcoal [Charcoal, 260 mg PO TIDCM 09/18/19 Activated] Amino AC/Protein Hydr/Whey Pro 30 ml PO BID 09/18/19 [Liquacel Liquid Protein Packet] Insulin Glargine [Lantus (BKC)] 15 units SUBCUT QHS 09/18/19 Insulin Lispro [Admelog Solostar] 15 unit SQ BREAKFAST 09/18/19 Insulin Lispro [Admelog Solostar] 20 unit SQ DINNER 09/18/19 Midodrine HCl 5 mg PO QODAY 09/18/19 Surgical History: Surgical History (Last Reviewed 09/19/19 @ 01:[address] Eren Robledo MD) History of cholecystectomy Z90.49 History of tubal ligation Z98.51 Surgical History: cholecystectomy, - - Letter tubal ligation, cholecystectomy, right upper extremity fistula placement and eventual ligation, bilateral upper chest dialysis catheters with right now left upper chest in place. 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 Eren Robledo MD) Father Diabetes Mother Heart disease History Items: Cancer, Heart Disease Paternal Family History: Family History (Last Reviewed 09/19/19 @ 01:[address] Eren Robledo MD) Father Diabetes Mother Heart disease History Items: Diabetes, Heart Disease, Hypertension Sibling Family History: Family History (Last Reviewed 09/19/19 @ 01:[address] Eren Robledo MD) Father Diabetes Mother Heart disease History Items: Diabetes Review of Systems Constitutional: Reports: Anorexia, Fever. Denies: Chills, Weight Change HEENT: Denies: Head Aches, Sinus Congestion, Sinus Drainage Cardiovascular: Denies: Chest Pain, Palpitations Respiratory: Denies: Cough, Shortness of breath at rest, Sputum production Gastrointestinal: Denies: Nausea, Vomiting Genitourinary: Reports: - - Decreased urination. Denies: Dysuria Musculoskeletal: Denies: Joint Pain, Joint Tenderness Skin: Reports: Wounds - Abdominal. Denies: Rash Neurological: Denies: Numbness, Tingling Psychiatric: Denies: Anxiety, Depression, Homicidal Ideations, Suicidal Ideations Hematologic/ Lymphatic: Denies: Easy Bruising, Easy Bleeding VTE Information - Inpt Only VTE Present on Admission: No VTE Mechan Device Prophylaxis: None VTE Pharm Prophylaxis ordered?: No Reason prophylaxis not ordered:: Treatment Not Indicated - Patient on Eliquis for history of DVT; continued. Patient Problems: Active and Suspected Problems (Last Reviewed 09/19/19 @ 01:[address] Eren Robledo MD) Severe sepsis (Acute) - Physical Exam Vitals/I&O's: Vital Signs Temp Pulse Resp BP Pulse Ox 99.6 F H 113 H 19 H 132/73 H 88 09/18/19 23:13 09/18/19 22:50 09/18/19 22:50 09/18/19 22:50 09/18/19 23:13 Oxygen Delivery Method Room Air Weight: 121.4 kg Body Mass Index (BMI) 47.4 General: Alert, Oriented x3, Cooperative HEENT: Atraumatic, PERRLA, EOMI, Normocephalic Neck: Supple, No JVD, Negative Carotid Bruits Lungs: Clear to auscultation, Normal air movement, No rhonchi Cardiovascular: Regular rate, Normal S1, Normal S2, No murmurs, Tachycardic Abdomen: Bowel Sounds Present, Soft, Tender, - - Extensive wound on abdominal fold to the right. Extremities: Capillary Refill Less than 3 Seconds, Edema - Left leg Skin: Ulcer/ Wound - Extensive wound of lower abdominal fold more to the right., - - Erythema of left leg and swelling. Musculoskeletal: No Tenderness to Palpation of Joints or Extremities, - - Decreased range of motion of bilateral lower extremities right worse than left. Neurological: Cranial nerves II-XII grossly intact, - Psych/Mental Status: Normal Affect, Appropriate Laboratory Results 09/18/19 23:05: WBC 17.4 H, RBC 4.01 L, Hgb 11.5 L, Hct 37.4, MCV 93.3, MCH 28.7, MCHC 30.7 L, RDW Std Deviation 72.7 H, RDW Coeff of Perico 21.4 H, Plt Count 124 L, MPV 12.2 H, Immature Gran % (Auto) 2.400 H, Neut % (Auto) 82.0 H, Lymph % (Auto) 7.3 L, [place] % (Auto) 8.1, Eos % (Auto) 0.0, Baso % (Auto) 0.2, Absolute Neuts (auto) 14.3 H, Absolute Lymphs (auto) 1.27, Nucleated RBC % 0.4, Differential Comment SCANNED, Anisocytosis 1+ 09/18/19 23:05: PT 23.6 H, INR 2.1, APTT 33.8 09/18/19 23:05: Sodium 137, Potassium 5.9 H, Chloride 102, Carbon Dioxide 26.0, Anion Gap 9, BUN 65 H, Creatinine 5.80 H, Estim Creat Clear Calc 8.85, Est GFR (MDRD) Af Amer 10 L, Est GFR (MDRD) Non-Af 8 L, BUN/Creatinine Ratio 11.2, Glucose 66 L, Calcium 9.8, Total Bilirubin 0.50, AST 26, ALT 30, Alkaline Phosphatase 89, Total Protein 6.3 L, Albumin 2.7 L, Globulin 3.6, Albumin/Globulin Ratio 0.8 L 09/18/19 23:05: Lactic Acid 1.9 09/18/19 23:38: Specimen Type ART, Sample Site R Radial, pH 7.44, Bicarbonate Actual 25.2, POC Total CO2 26, Base Excess 1, O2 Saturation 98, ABG pCO2 36.8, ABG pO2 93, Richard Test POS, O2 Delivery Device Nasal Can, Liter Flow 2.0, Blood Gas Notified Whom ED MD, Blood Gas Notified Time 3796 Current Medications Sodium Chloride () 1,000 mls @ 150 mls/hr IV .Q6H40M SHAHANA Last Admin: 09/18/19 23:17 Dose: 150 mls/hr Documented by: Vancomycin HCl (Vancomycin) 1,000 mg in 200 mls @ 200 mls/hr IV X1 ONE Stop: 09/19/19 00:32 Assessment/Plan All Active Problems (Last Reviewed 09/19/19 @ 01:[address] Eren Robledo MD) Severe sepsis (Acute) Necrotizing soft tissue infection (Resolved) The patient is a 59 year old F with a significant history of diabetes; CIDP; end-stage renal disease on dialysis (Monday and Monday) who presents from [facility] with fever; lethargy and anorexia; and found to have tachycardia; leukocytosis with bandemia and elevated INR consistent with severe sepsis Severe sepsis Patient with tachycardia; and neutrophilic leukocytosis with bandemia. INR is 2.1. Of note patient is on Eliquis that can mildly affects INR. Because of elevated INR will classify as severe sepsis. This could multifactorial from left leg cellulitis and cystitis. Further emergent department doctor reports slight pus from abdominal wound; less suspicious for wound infection. Received vancomycin and Zosyn at emergency department. Continue vancomycin pharmacy to dose. Continue Zosyn. Follow culture and blood culture. Get ultrasound of left lower leg. Tylenol PRN for fever. Hyperkalemia Potassium at emergency department was 5.9. Reportedly the blood was hemolyzed. Repeat bmp in a.m.. Patient dialysis patients and next dialysis is 09/19/2019. Hypoglycemia Hold all home hypoglycemic regimen Accu-Chek every hour until blood glucose is more than 8010 Accu-Chek every 4 hours. Diabetes mellitus On presentation blood glucose was 66. Risk of secondary to anorexia and insulin use. Hold all hypoglycemic regimen. Accu-Chek as above. CIDP Prednisone continued Chronic abdominal wound Wet-to-dry dressing until wound care sees patient and made recommendations. Wound care consult. Prior DVT of right lower extremity On Eliquis; continued. DVT Prophylaxis Not indicated since patient is on Eliquis. Eliquis continued. Inpatient E&M: 65799 Init Hosp L3
[2019-09-19] MEDS: Vancomycin IV 1,000 MG/200 ML BAG 200 MG IV ×2 (00:21→17:58)
[2019-09-19] MEDS: Dextrose 50%-Water 25 GM/50 ML DISP.SYRIN IV (00:21)
[2019-09-19 07:48] LABS: Bedside Glucose 106 mg/dL (70-110)
[2019-09-19 07:48] LABS: Bedside Glucose 131 mg/dL (70-110)
[2019-09-19 09:03] LABS: BUN 68 mg/dL (7-18); Calcium,Total 9.5 mg/dL (8.5-10.1); Chloride 101 mmol/L (98-107); Creatinine, Serum 5.94 mg/dL (0.55-1.02); Estimated Creatinine Clearance 8.64 ml/min; Glucose 92 mg/dL (74-106); Potassium 4.9 mmol/L (3.5-5.1); Sodium Level 137 mmol/L (136-145)
[2019-09-19 09:48] LABS: Anion Gap 12 (5-15); BUN/Creat Ratio 11.4 RATIO (10-20); EST Glomerular Filtration Rate 8 mL/min (>60); Est Glom Filt Rate - Afr Amer 9 mL/min (>60)
--- NOTE | 2019-09-19 09:49 | CASEMGMT ---
Addendum entered by Nadja Castro 09/19/19 11:13: SW did talk with patient by phone and she confirmed her plan is to return to to [facility] at discharge. Nadja MADRID Original Note: Patient is from [facility]. SW spoke with Anjali at [facility] and she said patient will need a pre-cert to return. SW faxed H&P and med list to [facility]. JOLIE also tried to call patient's room to confirm her plan is to return to [facility], but she did not answer. Plan: [facility] pending patient being medically ready and pre-cert and confirmation from patient that her plan is to return. Nadja GARCIA MSW
--- NOTE | 2019-09-19 09:51 | NURSING ---
wound photo: abdomen
[2019-09-19] MEDS: Multivitamins,Therapeutic Tablet 1 TABLET PO (10:09)
[2019-09-19] MEDS: Sertraline 50 MG Tablet 125 MG PO (10:10)
[2019-09-19] MEDS: predniSONE 10 MG Tablet 30 MG PO (10:10)
[2019-09-19] MEDS: Pantoprazole Sodium 20 MG Tablet PO (10:10)
[2019-09-19] MEDS: Pregabalin 75 MG Capsule 150 MG PO ×2 (10:13→21:36)
[2019-09-19] MEDS: Docusate Sodium 100 MG Capsule PO (10:13)
[2019-09-19] MEDS: Senna/Docusate Sodium 1 Tablet 2 TABLET PO ×2 (10:13→21:27)
[2019-09-19] MEDS: Montelukast 10 MG Tablet PO (10:13)
[2019-09-19 10:17] LABS: M R Staph aureus DNA By PCR Negative (Negative); Probe Check PASS; Specimen Processing Control PASS; Staph aureus DNA By PCR NEGATIVE (Negative)
[2019-09-19] MEDS: Heparin 10,000 UNITS/10 ML Vial 7000 UNITS IV (11:45)
--- NOTE | 2019-09-19 11:45 | PN_ITS ---
<Sergio Sutherland - Last Filed: 09/19/19 11:45> Patient Problems: Active and Suspected Problems (Last Reviewed 09/19/19 @ 01:[address] Eren Robledo MD) Severe sepsis (Acute) Reason for Visit: nonhealing wounds, abdomen Subjective: No further fever, chills. Minimal pain. No n/v. No dysuria. Pt c.o cramping calf pain and swelling. Pt has been compliant with eliquis. Vitals/I&O's: Vital Signs Temp Pulse Resp BP Pulse Ox 98 F 99 15 92/28 L 100 09/19/19 10:23 09/19/19 10:23 09/19/19 10:23 09/19/19 10:23 09/19/19 10:23 Oxygen Flow Rate (L/min) 2 Oxygen Delivery Method Nasal Cannula Weight: 256 lb 13.416 oz Body Mass Index (BMI) 45.5 Intake and Output for Last 24 Hours 09/17/19 09/18/19 09/19/19 23:59 23:59 23:59 Intake Total 1261.25 / 1261.25 Balance 1261.25 / 1261.25 General: Alert, Oriented x3, Cooperative HEENT: Atraumatic, PERRLA, EOMI, Normocephalic Neck: Supple, No JVD, Negative Carotid Bruits Lungs: Clear to auscultation, Normal air movement Cardiovascular: Regular rate, No murmurs Abdomen: Bowel Sounds Present, Soft, Non Tender, Obese - wound with mild light yellow discharge, some mild localized surrounding erythema Extremities: No edema, Capillary Refill Less than 3 Seconds Skin: No rashes, No breakdown Musculoskeletal: No Tenderness to Palpation of Joints or Extremities Neurological: Cranial nerves II-XII grossly intact Psych/Mental Status: Normal Affect, Appropriate, Alert and oriented to time, place, person, mood and affect Laboratory Results 09/18/19 23:05: WBC 17.4 H, RBC 4.01 L, Hgb 11.5 L, Hct 37.4, MCV 93.3, MCH 28.7, MCHC 30.7 L, RDW Std Deviation 72.7 H, RDW Coeff of Perico 21.4 H, Plt Count 124 L, MPV 12.2 H, Immature Gran % (Auto) 2.400 H, Neut % (Auto) 82.0 H, Lymph % (Auto) 7.3 L, [place] % (Auto) 8.1, Eos % (Auto) 0.0, Baso % (Auto) 0.2, Absolute Neuts (auto) 14.3 H, Absolute Lymphs (auto) 1.27, Nucleated RBC % 0.4, Differential Comment SCANNED, Anisocytosis 1+ 09/18/19 23:05: PT 23.6 H, INR 2.1, APTT 33.8 09/18/19 23:05: Sodium 137, Potassium 5.9 H, Chloride 102, Carbon Dioxide 26.0, Anion Gap 9, BUN 65 H, Creatinine 5.80 H, Estim Creat Clear Calc 8.85, Est GFR (MDRD) Af Amer 10 L, Est GFR (MDRD) Non-Af 8 L, BUN/Creatinine Ratio 11.2, Glucose 66 L, Calcium 9.8, Total Bilirubin 0.50, AST 26, ALT 30, Alkaline Phosphatase 89, Total Protein 6.3 L, Albumin 2.7 L, Globulin 3.6, Albumin/Globulin Ratio 0.8 L 09/18/19 23:05: Lactic Acid 1.9 09/18/19 23:38: Specimen Type ART, Sample Site R Radial, pH 7.44, Bicarbonate Actual 25.2, POC Total CO2 26, Base Excess 1, O2 Saturation 98, ABG pCO2 36.8, ABG pO2 93, Richard Test POS, O2 Delivery Device Nasal Can, Liter Flow 2.0, Blood Gas Notified Whom ED MD, Blood Gas Notified Time 7829 09/19/19 02:36: POC Glucose 131 H 09/19/19 04:18: WBC Pending, RBC Pending, Hgb Pending, Hct Pending, MCV Pending, MCH Pending, MCHC Pending, RDW Std Deviation Pending, RDW Coeff of Perico Pending, Plt Count Pending, Neut % (Auto) Pending, Absolute Neuts (auto) Pending 09/19/19 04:18: Sodium 137, Potassium 4.9, Chloride 101, Carbon Dioxide 24.0, Anion Gap 12, BUN 68 H, Creatinine 5.94 H, Estim Creat Clear Calc 8.64, Est GFR (MDRD) Af Amer 9 L, Est GFR (MDRD) Non-Af 8 L, BUN/Creatinine Ratio 11.4, Glucose 92, Calcium 9.5 09/19/19 05:45: S.aureus Protein A PCR NEGATIVE, MRSA (PCR) Negative 09/19/19 06:57: POC Glucose 106 Current Medications Acetaminophen (Tylenol) 650 mg PO Q6H PRN PRN PRN Reason: Pain Score 1-10/Temp > 100.7 F Hydrocodone Bitart/Acetaminophen ([place] 5mg-325mg) 1 - 2 tablet PO Q6H PRN PRN Reason: pain (4-10/10) Apixaban (Eliquis) 5 mg PO BID [facility] Atorvastatin Calcium (Lipitor) 20 mg PO QHS [facility] Bisacodyl (Dulcolax) 10 mg RECTAL DAILY PRN PRN PRN Reason: Constipation Calamine/Phenol (Calmoseptine Ointment) 1 applic TOPICAL TID [facility] Dextrose (D50w Syringe) 0 gm IV X1 PRN; Protocol PRN Reason: Hypoglycemia Docusate Sodium (Colace) 100 mg PO DAILY [facility] Last Admin: 09/19/19 10:13 Dose: 100 mg Documented by: Glucagon () 1 mg IM .X1 PRN PRN Reason: Hypoglycemia Piperacillin Sod/Tazobactam (Sod 3.375 gm/ Sodium Chloride) 50 mls @ 12.5 mls/hr IV Q12 [facility] Vancomycin IV Pharmacy to Dose (1,250 ea/ Sodium Chloride) 500 mls @ 250 mls/hr IV Q24 [facility]; Protocol Sodium Chloride () 250 mls @ 15 mls/hr IV .[id number] PRN PRN Reason: Saline Flush Lactobacillus Acidophilus (Acidophilus) 1 tablet PO TID [facility] Last Admin: 09/19/19 10:15 Dose: Not Given Documented by: Magnesium Hydroxide (Milk Of Magnesia) 30 ml PO DAILY PRN PRN Reason: Constipation Midodrine (Proamatine) 5 mg PO TuThSa [facility] Montelukast Sodium (Singulair) 10 mg PO DAILY [facility] Last Admin: 09/19/19 10:13 Dose: 10 mg Documented by: Multivitamins (Multivitamin) 1 tablet PO DAILYCM [facility] Last Admin: 09/19/19 10:09 Dose: 1 tablet Documented by: Non-Formulary Medication (Arginine/Ascorbate Sod/Pedro Ac [Arginaid Powder]) 1 ea PO BID [facility] Nutritional Formula (Lactose Free) (Glucerna Shake) 120 ml PO TIDCM [facility] Ondansetron HCl (Zofran) 4 mg IV Q8H PRN PRN PRN Reason: NAUSEA/VOMITING Pantoprazole Sodium (Protonix) 20 mg PO DAILY [facility] Last Admin: 09/19/19 10:10 Dose: 20 mg Documented by: Prednisone () 30 mg PO DAILYCM [facility] Last Admin: 09/19/19 10:10 Dose: 30 mg Documented by: Pregabalin (Lyrica) 150 mg PO Q12 [facility] Last Admin: 09/19/19 10:13 Dose: 150 mg Documented by: Senna/Docusate Sodium (Senokot-S, Leti-Colace) 2 tablet PO BID [facility] Last Admin: 09/19/19 10:13 Dose: 2 tablet Documented by: Sertraline HCl (Zoloft) 125 mg PO DAILY [facility] Last Admin: 09/19/19 10:10 Dose: 125 mg Documented by: Sevelamer Carbonate (Renvela) 2,400 mg PO TIDCM [facility] Sodium Chloride () 10 - 40 ml IV UD PRN PRN Reason: SALINE FLUSH STROKE Vital Signs/Narrative: Vital Signs Temp Pulse Resp BP Pulse Ox 09/19/19 10:23 98 F 99 15 92/28 L 100 Medical Necessity - Tobacco Use Smoking Status: Never smoker Tobacco Use: Non-smoker Assessment/Plan All Active Problems (Last Reviewed 09/19/19 @ 01:[address] Eren Robledo MD) Severe sepsis (Acute) Necrotizing soft tissue infection (Resolved) 1. Acute severe sepsis 2/2 recurrent panniculitis - repeat cbc pending. hx mrsa. MRSA/MSSA screen neg. continue vanc/zosyn. wound cx taken. photos on chart. afebrile. consult to Dr. Salamanca who has managed this in the past. 2. LLE pain - pt compliant with eliquis. venous duplex cancelled. suspect musculoskeletal. 3. ESRD - dr. Lew consulted. Hyperkalemia resolved. 4. CIDP - nonambulatory. snf resident. 5. DMt2 with morbid obesity - insulins held for hypoglycemia. SSI. 6. GERD - continue ppi 7. anx/depression - ssri DVT ppx: eliquis DC planning: return to SNF when appropriate This patient was seen by Sergio Sutherland PA-C under the supervision of Doctor Jostin. <Emmett Frankel F - Last Filed: 09/19/19 13:38> Vitals/I&O's: Vital Signs Temp Pulse Resp BP Pulse Ox 98 F 110 H 15 92/28 L 100 09/19/19 10:23 09/19/19 12:37 09/19/19 10:23 09/19/19 10:23 09/19/19 10:23 Oxygen Flow Rate (L/min) 2 Oxygen Delivery Method Nasal Cannula Weight: 256 lb 13.416 oz Body Mass Index (BMI) 45.5 Intake and Output for Last 24 Hours 09/17/19 09/18/19 09/19/19 23:59 23:59 23:59 Intake Total 1261.25 / 1261.25 Balance 1261.25 / 1261.25 Laboratory Results 09/18/19 23:05: WBC 17.4 H, RBC 4.01 L, Hgb 11.5 L, Hct 37.4, MCV 93.3, MCH 28.7, MCHC 30.7 L, RDW Std Deviation 72.7 H, RDW Coeff of Perico 21.4 H, Plt Count 124 L, MPV 12.2 H, Immature Gran % (Auto) 2.400 H, Neut % (Auto) 82.0 H, Lymph % (Auto) 7.3 L, [place] % (Auto) 8.1, Eos % (Auto) 0.0, Baso % (Auto) 0.2, Absolute Neuts (auto) 14.3 H, Absolute Lymphs (auto) 1.27, Nucleated RBC % 0.4, Differential Comment SCANNED, Anisocytosis 1+ 09/18/19 23:05: PT 23.6 H, INR 2.1, APTT 33.8 09/18/19 23:05: Sodium 137, Potassium 5.9 H, Chloride 102, Carbon Dioxide 26.0, Anion Gap 9, BUN 65 H, Creatinine 5.80 H, Estim Creat Clear Calc 8.85, Est GFR (MDRD) Af Amer 10 L, Est GFR (MDRD) Non-Af 8 L, BUN/Creatinine Ratio 11.2, Glucose 66 L, Calcium 9.8, Total Bilirubin 0.50, AST 26, ALT 30, Alkaline Phosphatase 89, Total Protein 6.3 L, Albumin 2.7 L, Globulin 3.6, Albumin/Globulin Ratio 0.8 L 09/18/19 23:05: Lactic Acid 1.9 09/18/19 23:38: Specimen Type ART, Sample Site R Radial, pH 7.44, Bicarbonate Actual 25.2, POC Total CO2 26, Base Excess 1, O2 Saturation 98, ABG pCO2 36.8, ABG pO2 93, Richard Test POS, O2 Delivery Device Nasal Can, Liter Flow 2.0, Blood Gas Notified Whom ED MD, Blood Gas Notified Time 8369 09/19/19 02:36: POC Glucose 131 H 09/19/19 04:18: WBC 17.0 H, RBC 3.89 L, Hgb 11.2 L, Hct 36.2 L, MCV 93.1, MCH 28.8, MCHC 30.9 L, RDW Std Deviation 73.0 H, RDW Coeff of Perico 21.6 H, Plt Count 113 L, MPV 12.4 H, Immature Gran % (Auto) 2.500 H, Neut % (Auto) 76.1 H, Lymph % (Auto) 11.8 L, [place] % (Auto) 9.4, Eos % (Auto) 0.0, Baso % (Auto) 0.2, Absolute Neuts (auto) 13.0 H, Absolute Lymphs (auto) 2.01, Nucleated RBC % 0.3, Differential Comment SCANNED, Diff Path Review October09/19/19 04:18: Sodium 137, Potassium 4.9, Chloride 101, Carbon Dioxide 24.0, Anion Gap 12, BUN 68 H, Creatinine 5.94 H, Estim Creat Clear Calc 8.64, Est GFR (MDRD) Af Amer 9 L, Est GFR (MDRD) Non-Af 8 L, BUN/Creatinine Ratio 11.4, Glucose 92, Calcium 9.5 09/19/19 05:45: S.aureus Protein A PCR NEGATIVE, MRSA (PCR) Negative 09/19/19 06:57: POC Glucose 106 Current Medications Acetaminophen (Tylenol) 650 mg PO Q6H PRN PRN PRN Reason: Pain Score 1-10/Temp > 100.7 F Hydrocodone Bitart/Acetaminophen ([place] 5mg-325mg) 1 - 2 tablet PO Q6H PRN PRN Reason: pain (4-10/10) Apixaban (Eliquis) 5 mg PO BID [facility] Last Admin: 09/19/19 12:05 Dose: 5 mg Documented by: Atorvastatin Calcium (Lipitor) 20 mg PO QHS [facility] Bisacodyl (Dulcolax) 10 mg RECTAL DAILY PRN PRN PRN Reason: Constipation Calamine/Phenol (Calmoseptine Ointment) 1 applic TOPICAL TID [facility] Dextrose (D50w Syringe) 0 gm IV X1 PRN; Protocol PRN Reason: Hypoglycemia Docusate Sodium (Colace) 100 mg PO DAILY [facility] Last Admin: 09/19/19 10:13 Dose: 100 mg Documented by: Glucagon () 1 mg IM .X1 PRN PRN Reason: Hypoglycemia Piperacillin Sod/Tazobactam (Sod 3.375 gm/ Sodium Chloride) 50 mls @ 12.5 mls/hr IV Q12 [facility] Vancomycin IV Pharmacy to Dose (1,250 ea/ Sodium Chloride) 500 mls @ 250 mls/hr IV PRN PRN; Protocol PRN Reason: RX TO DOSE Sodium Chloride () 250 mls @ 15 mls/hr IV .[id number] PRN PRN Reason: Saline Flush Vancomycin HCl (Vancomycin) 1,000 mg in 200 mls @ 200 mls/hr IV X1 ONE Stop: 09/19/19 17:59 Insulin Human Lispro (Humalog Kwikpen (Bkc)) 0 unit SC ACHS [facility]; Protocol Lactobacillus Acidophilus (Acidophilus) 1 tablet PO TID [facility] Last Admin: 09/19/19 11:52 Dose: 1 tablet Documented by: Magnesium Hydroxide (Milk Of Magnesia) 30 ml PO DAILY PRN PRN Reason: Constipation Midodrine (Proamatine) 5 mg PO TuThSa [facility] Last Admin: 09/19/19 11:50 Dose: 5 mg Documented by: Montelukast Sodium (Singulair) 10 mg PO DAILY [facility] Last Admin: 09/19/19 10:13 Dose: 10 mg Documented by: Multivitamins (Multivitamin) [facility] Last Admin: 09/19/19 10:09 Dose: 1 tablet Documented by: Non-Formulary Medication (Arginine/Ascorbate Sod/Pedro Ac [Arginaid Powder]) 1 ea PO BID [facility] Nutritional Formula (Lactose Free) (Glucerna Shake) 120 ml PO TIDCM [facility] Last Admin: 09/19/19 11:51 Dose: 120 ml Documented by: Ondansetron HCl (Zofran) 4 mg IV Q8H PRN PRN PRN Reason: NAUSEA/VOMITING Pantoprazole Sodium (Protonix) 20 mg PO DAILY [facility] Last Admin: 09/19/19 10:10 Dose: 20 mg Documented by: Prednisone () 30 mg PO DAILYCM [facility] Last Admin: 09/19/19 10:10 Dose: 30 mg Documented by: Pregabalin (Lyrica) 150 mg PO Q12 [facility] Last Admin: 09/19/19 10:13 Dose: 150 mg Documented by: Senna/Docusate Sodium (Senokot-S, Leti-Colace) 2 tablet PO BID [facility] Last Admin: 09/19/19 10:13 Dose: 2 tablet Documented by: Sertraline HCl (Zoloft) 125 mg PO DAILY [facility] Last Admin: 09/19/19 10:10 Dose: 125 mg Documented by: Sevelamer Carbonate (Renvela) 2,400 mg PO TIDCM [facility] Last Admin: 09/19/19 11:51 Dose: 2,400 mg Documented by: Sodium Chloride () 10 - 40 ml IV UD PRN PRN Reason: SALINE FLUSH Sodium Hypochlorite (Dakins Solution 0.25% (1/2 Strength)) 1 applic TOPICAL BID [facility]; Protocol STROKE Vital Signs/Narrative: Vital Signs Temp Pulse Resp BP Pulse Ox 09/19/19 12:37 110 H 09/19/19 10:23 98 F 99 15 92/28 L 100 Addendum: Dr. Frankel I personally examined the patient and reviewed the chart. I agree with the above. 59-year-old female with end-stage renal disease secondary to diabetes and chronic inflammatory demyelinating polyneuropathy presents with fever and confusion. The fever was felt to be secondary to possible left lower extremity cellulitis as well as a wound infection on her abdomen. Appreciate nephrology assistance and managing her dialysis and there is a consult out to surgery for evaluation of the wound. She is on dialysis which we will continue. She is also on Eliquis and she is on that twice a day and says that she has been taking the appropriate dose every day therefore the suspicion for DVT is extremely low. Because of the coronavirus we will therefore cancel her duplex ultrasound of her left lower extremity. We will continue to monitor, she did also appear to have a potential UTI based on purulent drainage when a Vargas was placed. A urine culture, blood cultures are pending as is a wound culture. We will continue with vancomycin and Zosyn for right now and narrow as able. Inpatient E&M: 81905 Subs Hosp L2
[2019-09-19] MEDS: Midodrine HCl 5 MG Tablet PO (11:50)
[2019-09-19 11:51] LABS: Absolute Lymphocyte Count 2.01 X10^3/uL (0.83-4.51); Basophil# 0.03 X10^3/uL; Basophil% 0.2 % (0-1); Hematocrit 36.2 % (37-47); Hemoglobin 11.2 g/dL (12.0-15.0); Lymphocyte # 2.01 X10^3/ul (4.0); Lymphocyte % 11.8 % (19-41); Mean Corp Hgb Conc 30.9 g/dL (32-36); Mean Corpuscular Hgb 28.8 pg (27.0-32.0); Mean Corpuscular Volume 93.1 fL (81-99); Mean Platelet Vol. 12.4 fl (6.2-12.0); Monocyte% 9.4 % (0-10); NRBC Flagged by Analyzer 0.3 % (0-5); Neutrophil # 12.97 X10^3/uL (2.7-7.7); Neutrophil % 76.1 % (47-70); POSITIVE DIFFERENTIAL YES; POSITIVE MORPHOLOGY YES; Platelet Count 113 K/mm3 (150-450); RBC Distribution Width CV 21.6 % (11.6-14.6); Red Blood Count 3.89 M/mm3 (4.2-5.4)
[2019-09-19] MEDS: SEVELAMER CARBONATE 800 MG TABLET 2400 MG PO ×2 (11:51→16:42)
[2019-09-19] MEDS: Glucerna Shake 120 ML LIQUID PO ×2 (11:51→16:45)
[2019-09-19] MEDS: APIXABAN 5 MG TABLET PO ×2 (12:05→21:26)
[2019-09-19 12:43] LABS: Differential Indicated SCAN CRITERIA MET
[2019-09-19 12:44] LABS: Differential Comment SCANNED
--- NOTE | 2019-09-19 13:16 | CON.PCM_ITS ---
Consultation - Renal 09/19/19 PCP/ Referring MD: Requesting physician: [] Primary care physician: Marcela Kerr MD Reason for Consultation:: ESRD HD THS - History of Present Illness History of Present Illness: The patient is a 59 year old F morbidly obese F ECF resident at [facility] with ESRD due to diabetes, hx CIDP with paralysis, chronic wounds followed by Dr. Salamanca, DM2, HTN admitted for fever, confusion. Currently receiving hemodialysis. Started on iv vanco and zosyn after peripheral blood/urine cs sent. States temp was 102 but has been low grade fever since admit. Denies cough. She is on HD with TDC, hx steal syndrome requiring ligation of AVF. She has chronically low BP off BP meds. Receives midodrine for BP support. She has chronic high interdialytic weight gains, high phosphorus due to dietary n oncompliance with family bringing in food to her prior to visitation restrictions from COVID19 - Allergies Allergies: Allergies latex Allergy (Verified 07/01/19 11:44) Hives Sulfa (Sulfonamide Antibiotics) Allergy (Verified 07/01/19 11:44) Rash codeine Adverse Reaction (Verified 07/01/19 11:44) Confusion - Current Medications Current Medications: Current Medications Acetaminophen (Tylenol) 650 mg PO Q6H PRN PRN PRN Reason: Pain Score 1-10/Temp > 100.7 F Hydrocodone Bitart/Acetaminophen (Citra 5mg-325mg) 1 - 2 tablet PO Q6H PRN PRN Reason: pain (4-10/10) Apixaban (Eliquis) 5 mg PO BID [facility] Last Admin: 09/19/19 12:05 Dose: 5 mg Documented by: Atorvastatin Calcium (Lipitor) 20 mg PO QHS [facility] Bisacodyl (Dulcolax) 10 mg RECTAL DAILY PRN PRN PRN Reason: Constipation Calamine/Phenol (Calmoseptine Ointment) 1 applic TOPICAL TID [facility] Dextrose (D50w Syringe) 0 gm IV X1 PRN; Protocol PRN Reason: Hypoglycemia Docusate Sodium (Colace) 100 mg PO DAILY [facility] Last Admin: 09/19/19 10:13 Dose: 100 mg Documented by: Glucagon () 1 mg IM .X1 PRN PRN Reason: Hypoglycemia Piperacillin Sod/Tazobactam (Sod 3.375 gm/ Sodium Chloride) 50 mls @ 12.5 mls/hr IV Q12 [facility] Vancomycin IV Pharmacy to Dose (1,250 ea/ Sodium Chloride) 500 mls @ 250 mls/hr IV Q24 [facility]; Protocol Sodium Chloride () 250 mls @ 15 mls/hr IV .[id number] PRN PRN Reason: Saline Flush Insulin Human Lispro (Humalog Kwikpen (Bkc)) 0 unit SC ACHS [facility]; Protocol Lactobacillus Acidophilus (Acidophilus) 1 tablet PO TID [facility] Last Admin: 09/19/19 11:52 Dose: 1 tablet Documented by: Magnesium Hydroxide (Milk Of Magnesia) 30 ml PO DAILY PRN PRN Reason: Constipation Midodrine (Proamatine) 5 mg PO TuThSa [facility] Last Admin: 09/19/19 11:50 Dose: 5 mg Documented by: Montelukast Sodium (Singulair) 10 mg PO DAILY [facility] Last Admin: 09/19/19 10:13 Dose: 10 mg Documented by: [facility] Admin: 09/19/19 10:09 Dose: 1 tablet Documented by: Non-Formulary Medication (Arginine/Ascorbate Sod/Pedro Ac [Arginaid Powder]) 1 ea PO BID [facility] Nutritional Formula (Lactose Free) (Glucerna Shake) 120 ml PO TIDCM [facility] Last Admin: 09/19/19 11:51 Dose: 120 ml Documented by: Ondansetron HCl (Zofran) 4 mg IV Q8H PRN PRN PRN Reason: NAUSEA/VOMITING Pantoprazole Sodium (Protonix) 20 mg PO DAILY [facility] Last Admin: 09/19/19 10:10 Dose: 20 mg Documented by: [facility] () [facility] Last Admin: 09/19/19 10:10 Dose: 30 mg Documented by: Pregabalin (Lyrica) 150 mg PO Q12 [facility] Last Admin: 09/19/19 10:13 Dose: 150 mg Documented by: Senna/Docusate Sodium (Senokot-S, Leti-Colace) 2 tablet PO BID [facility] Last Admin: 09/19/19 10:13 Dose: 2 tablet Documented by: Sertraline HCl (Zoloft) 125 mg PO DAILY [facility] Last Admin: 09/19/19 10:10 Dose: 125 mg Documented by: Sevelamer Carbonate (Renvela) 2,400 mg PO TIDCM [facility] Last Admin: 09/19/19 11:51 Dose: 2,400 mg Documented by: Sodium Chloride () 10 - 40 ml IV UD PRN PRN Reason: SALINE FLUSH Sodium Hypochlorite (Dakins Solution 0.25% (1/2 Strength)) 1 applic TOPICAL BID [facility]; Protocol - Past Medical History Past Medical History (Chronic Problems): Chronic Problems (Last Reviewed 09/19/19 @ 01:[address] Eren Robledo MD) Skin ulcer of abdominal wall with fat layer exposed (Chronic) Intertrigo (Chronic) abdominal wall skin crease intertrigo Abdominal panniculus, symptomatic (Chronic) Abdominal wall pain in right flank (Chronic) Skin necrosis (Chronic) Calciphylaxis (Chronic) ESRD on dialysis (Chronic) Cutaneous abscess of abdominal wall (Chronic) Type 2 diabetes mellitus with other skin ulcer (Chronic) nonhealing infected diabetic ulcerated abscesses right lateral abdominal wall Wound, open, abdominal wall, anterior (Chronic) Anxiety and depression (Chronic) ESRD (end stage renal disease) (Chronic) Morbid obesity (Chronic) Chronic diastolic CHF (congestive heart failure) (Chronic) 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 - Social History Marital Status: Smoking Status: Never smoker - Family History Maternal Family History: Family History (Last Reviewed 09/19/19 @ 01:[address] Eren Robledo MD) Father Diabetes Mother Heart disease History Items: Cancer, Heart Disease Paternal Family History: Family History (Last Reviewed 09/19/19 @ 01:[address] Eren Robledo MD) Father Diabetes Mother Heart disease History Items: Diabetes, Heart Disease, Hypertension Sibling Family History: Family History (Last Reviewed 09/19/19 @ 01:[address] Eren Robledo MD) Father Diabetes Mother Heart disease History Items: Diabetes Review of Systems Constitutional: Reports: Chills, Fever, Weakness, - - paralyzed. Denies: Anorexia Cardiovascular: Reports: Edema. Denies: Chest Pain Respiratory: Denies: Cough, Shortness of Breath Gastrointestinal: Denies: Nausea Genitourinary: Reports: - - anuric, no dysuria Musculoskeletal: Reports: - - leg edema mild, tender to touch Skin: Reports: Wounds - abdomen, left lateral leg and thigh, tender Hematologic/ Lymphatic: Reports: Anemia Patient Problems: Active and Suspected Problems (Last Reviewed 09/19/19 @ 01:[address] Eren rodriguez MD) Severe sepsis (Acute) - Physical Exam Vitals/I&O's: Vital Signs Temp Pulse Resp BP Pulse Ox 98 F 110 H 15 92/28 L 100 09/19/19 10:23 09/19/19 12:37 09/19/19 10:23 09/19/19 10:23 09/19/19 10:23 Oxygen Flow Rate (L/min) 2 Oxygen Delivery Method Nasal Cannula Weight: 116.5 kg Body Mass Index (BMI) 45.5 Intake and Output for Last 24 Hours 09/17/19 09/18/19 09/19/19 23:59 23:59 23:59 Intake Total 1261.25 / 1261.25 Balance 1261.25 / 1261.25 General: Alert, Oriented x3, Cooperative, No apparent distress, - - debilitated. morbidly obese Abdomen: Bowel Sounds Present, Soft, Non Tender, Non-Distended, Obese Extremities: Edema Skin: Ulcer/ Wound - abdomen, left lateral thigh and leg tender to touch Musculoskeletal: - - paralysis Neurological: - - CIDP with paralysis BLE Psych/Mental Status: Normal Affect, Appropriate, Alert and oriented to time, place, person, mood and affect Laboratory Results 09/18/19 23:05: WBC 17.4 H, RBC 4.01 L, Hgb 11.5 L, Hct 37.4, MCV 93.3, MCH 28.7, MCHC 30.7 L, RDW Std Deviation 72.7 H, RDW Coeff of Perico 21.4 H, Plt Count 124 L, MPV 12.2 H, Immature Gran % (Auto) 2.400 H, Neut % (Auto) 82.0 H, Lymph % (Auto) 7.3 L, [place] % (Auto) 8.1, Eos % (Auto) 0.0, Baso % (Auto) 0.2, Absolute Neuts (auto) 14.3 H, Absolute Lymphs (auto) 1.27, Nucleated RBC % 0.4, Differential Comment SCANNED, Anisocytosis 1+ 09/18/19 23:05: PT 23.6 H, INR 2.1, APTT 33.8 09/18/19 23:05: Sodium 137, Potassium 5.9 H, Chloride 102, Carbon Dioxide 26.0, Anion Gap 9, BUN 65 H, Creatinine 5.80 H, Estim Creat Clear Calc 8.85, Est GFR (MDRD) Af Amer 10 L, Est GFR (MDRD) Non-Af 8 L, BUN/Creatinine Ratio 11.2, Glucose 66 L, Calcium 9.8, Total Bilirubin 0.50, AST 26, ALT 30, Alkaline Phosphatase 89, Total Protein 6.3 L, Albumin 2.7 L, Globulin 3.6, Albumin/Globulin Ratio 0.8 L 09/18/19 23:05: Lactic Acid 1.9 09/18/19 23:38: Specimen Type ART, Sample Site R Radial, pH 7.44, Bicarbonate Actual 25.2, POC Total CO2 26, Base Excess 1, O2 Saturation 98, ABG pCO2 36.8, ABG pO2 93, Richard Test POS, O2 Delivery Device Nasal Can, Liter Flow 2.0, Blood Gas Notified Whom ED MD, Blood Gas Notified Time 2135 09/19/19 02:36: POC Glucose 131 H 09/19/19 04:18: WBC 17.0 H, RBC 3.89 L, Hgb 11.2 L, Hct 36.2 L, MCV 93.1, MCH 28.8, MCHC 30.9 L, RDW Std Deviation 73.0 H, RDW Coeff of Perico 21.6 H, Plt Count 113 L, MPV 12.4 H, Immature Gran % (Auto) 2.500 H, Neut % (Auto) 76.1 H, Lymph % (Auto) 11.8 L, [place] % (Auto) 9.4, Eos % (Auto) 0.0, Baso % (Auto) 0.2, Absolute Neuts (auto) 13.0 H, Absolute Lymphs (auto) 2.01, Nucleated RBC % 0.3, Differential Comment SCANNED, Diff Path Review October foll 09/19/19 04:18: Sodium 137, Potassium 4.9, Chloride 101, Carbon Dioxide 24.0, Anion Gap 12, BUN 68 H, Creatinine 5.94 H, Estim Creat Clear Calc 8.64, Est GFR (MDRD) Af Amer 9 L, Est GFR (MDRD) Non-Af 8 L, BUN/Creatinine Ratio 11.4, Glucose 92, Calcium 9.5 09/19/19 05:45: S.aureus Protein A PCR NEGATIVE, MRSA (PCR) Negative 09/19/19 06:57: POC Glucose 106 Current Medications Acetaminophen (Tylenol) 650 mg PO Q6H PRN PRN PRN Reason: Pain Score 1-10/Temp > 100.7 F Hydrocodone Bitart/Acetaminophen (Citra 5mg-325mg) 1 - 2 tablet PO Q6H PRN PRN Reason: pain (4-10/10) Apixaban (Eliquis) 5 mg PO BID [facility] Last Admin: 09/19/19 12:05 Dose: 5 mg Documented by: Atorvastatin Calcium (Lipitor) 20 mg PO QHS [facility] Bisacodyl (Dulcolax) 10 mg RECTAL DAILY PRN PRN PRN Reason: Constipation Calamine/Phenol (Calmoseptine Ointment) 1 applic TOPICAL TID [facility] Dextrose (D50w Syringe) 0 gm IV X1 PRN; Protocol PRN Reason: Hypoglycemia Docusate Sodium (Colace) 100 mg PO DAILY [facility] Last Admin: 09/19/19 10:13 Dose: 100 mg Documented by: Glucagon () 1 mg IM .X1 PRN PRN Reason: Hypoglycemia Piperacillin Sod/Tazobactam (Sod 3.375 gm/ Sodium Chloride) 50 mls @ 12.5 mls/hr IV Q12 [facility] Vancomycin IV Pharmacy to Dose (1,250 ea/ Sodium Chloride) 500 mls @ 250 mls/hr IV Q24 [facility]; Protocol Sodium Chloride () 250 mls @ 15 mls/hr IV .[id number] PRN PRN Reason: Saline Flush Insulin Human Lispro (Humalog Kwikpen (Bkc)) 0 unit SC ACHS [facility]; Protocol Lactobacillus Acidophilus (Acidophilus) 1 tablet PO TID [facility] Last Admin: 09/19/19 11:52 Dose: 1 tablet Documented by: Magnesium Hydroxide (Milk Of Magnesia) 30 ml PO DAILY PRN PRN Reason: Constipation Midodrine (Proamatine) 5 mg PO TuThSa [facility] Last Admin: 09/19/19 11:50 Dose: 5 mg Documented by: Montelukast Sodium (Singulair) 10 mg PO DAILY [facility] Last Admin: 09/19/19 10:13 Dose: 10 mg Documented by: [facility]) [facility] Last Admin: 09/19/19 10:09 Dose: 1 tablet Documented by: Non-Formulary Medication (Arginine/Ascorbate Sod/Pedro Ac [Arginaid Powder]) 1 ea PO BID [facility] Nutritional Formula (Lactose Free) (Glucerna Shake) 120 ml PO TIDCM [facility] Last Admin: 09/19/19 11:51 Dose: 120 ml Documented by: Ondansetron HCl (Zofran) 4 mg IV Q8H PRN PRN PRN Reason: NAUSEA/VOMITING Pantoprazole Sodium (Protonix) 20 mg PO DAILY [facility] Last Admin: 09/19/19 10:10 Dose: 20 mg Documented by: Prednisone () 30 mg PO DAILYCM [facility] Last Admin: 09/19/19 10:10 Dose: 30 mg Documented by: Pregabalin (Lyrica) 150 mg PO Q12 [facility] Last Admin: 09/19/19 10:13 Dose: 150 mg Documented by: Senna/Docusate Sodium (Senokot-S, Leti-Colace) 2 tablet PO BID [facility] Last Admin: 09/19/19 10:13 Dose: 2 tablet Documented by: Sertraline HCl (Zoloft) 125 mg PO DAILY [facility] Last Admin: 09/19/19 10:10 Dose: 125 mg Documented by: Sevelamer Carbonate (Renvela) 2,400 mg PO TIDCM [facility] Last Admin: 09/19/19 11:51 Dose: 2,400 mg Documented by: Sodium Chloride () 10 - 40 ml IV UD PRN PRN Reason: SALINE FLUSH Sodium Hypochlorite (Dakins Solution 0.25% (1/2 Strength)) 1 applic TOPICAL BID [facility]; Protocol Assessment/Plan All Active Problems (Last Reviewed 09/19/19 @ 01:[address] Eren Robledo MD) Severe sepsis (Acute) Necrotizing soft tissue infection (Resolved) 1 ESRD HD Latrell Gonzales, Sat. Seen on dialysis, midodrine for low BP. Fluid removal as tolerated on 2K bath. 2 Fever with leukocytosis r/o sepsis from dialysis line. Check vanco levels prior to redosing 3. Chronic wounds abdomen LLE 4. DM2 5. HTN 6. Anemia 7. Morbid obesity 8. Hyperphosphatemia binders, renal diet.
--- NOTE | 2019-09-19 15:06 | PHA.PHARE_ITS ---
Consult Pharmacy has been consulted to manage selected antiobiotic: Vancomycin Type of Consult: New start Suspected Infection: Sepsis Labs: Sodium 137 mmol/L (136-145) 09/19/19 04:18 Potassium 4.9 mmol/L (3.5-5.1) 09/19/19 04:18 Chloride 101 mmol/L (98-107) 09/19/19 04:18 Carbon Dioxide 24.0 mmol/L (21.0-32.0) 09/19/19 04:18 Anion Gap 12 (5-15) 09/19/19 04:18 BUN 68 mg/dL (7-18) H 09/19/19 04:18 Creatinine 5.94 mg/dL (0.55-1.02) H 09/19/19 04:18 Est GFR (MDRD) Af Amer 9 mL/min (>60) L 09/19/19 04:18 Est GFR (MDRD) Non-Af 8 mL/min (>60) L 09/19/19 04:18 BUN/Creatinine Ratio 11.4 RATIO (10-20) 09/19/19 04:18 Glucose 92 mg/dL (74-106) 09/19/19 04:18 Microbiology: Microbiology 09/19/19 05:45 Wound - Abdominal Gram Stain - Final Weight used for dosin kg Estimated Creatinine Clearance: <20 Goal Trough: 15-20 mcg/mL Pharmacy Plan for Drug Dosing: Pt received a one time dose of Vancomycin 1000mg IV in the ER on 09/19/19 at 0021. Pt then received dialysis on 09/19/19 in the late morning early afternoon. She w ill receive another 1 time dose of Vancomycin 1000mg given after dialysis. A random level will be drawn on monday09/21/19 at 0600. Pharmacy will dose based off of that level. Pharmacy Service will continue to monitor and adjust dosing as required. Follow-Up Labs: Trough Vancomycin - 09/21/19 @ 0600 (random level)
[2019-09-19] MEDS: Heparin 10,000 UNITS/10 ML Vial IV (15:21)
--- NOTE | 2019-09-19 15:56 | DIALYSIS ---
hemodialysis x 4 hours, -2200ml off. stable t/o. CVC dressing changed. Blood cultures drawn and given to staff as Dr Lew requested. CVC closed with heparin to each lumen fill volume. Report from/to Petra MITTAL
[2019-09-19] MEDS: 0.9% Saline Lock 10 ML Syringe IV (16:34)
[2019-09-19] MEDS: Menthol/Lanolin/Calamine/Znox 113 GM Tube 1 APPLIC TOPICAL ×2 (16:34→21:23)
[2019-09-19 17:26] LABS: Bedside Glucose 240 mg/dL (70-110)
[2019-09-19] MEDS: Insulin Lispro 100 UNIT/ML INSULN.PEN SC ×2 (18:06→21:25)
[2019-09-19] MEDS: DAKIN'S SOL HALF STRENGTH (=0.25%) 1 APPLIC TOPICAL (21:29)
[2019-09-19 21:36] LABS: Bedside Glucose 413 mg/dL (70-110)
[2019-09-19] MEDS: Atorvastatin Calcium 20 MG Tablet PO (21:36)
[2019-09-20] VITALS (10 sets, daily range): BP systolic 102–127; BP diastolic 55–82; PULSE 88–101; RESP 14–18; TEMP 36.3–37; O2SAT 93–94
[2019-09-20 05:44] LABS: Absolute Lymphocyte Count 1.23 X10^3/uL (0.83-4.51); Absolute Neutrophil Count 8.5 X10^3/uL (2.0-7.7); Basophil# 0.04 X10^3/uL; Basophil% 0.3 % (0-1); Hematocrit 33.7 % (37-47); Hemoglobin 10.5 g/dL (12.0-15.0); Lymphocyte # 1.23 X10^3/ul (4.0); Lymphocyte % 10.7 % (19-41); Mean Corp Hgb Conc 31.2 g/dL (32-36); Mean Corpuscular Hgb 28.8 pg (27.0-32.0); Mean Corpuscular Volume 92.3 fL (81-99); Mean Platelet Vol. 12.6 fl (6.2-12.0); Monocyte# 1.34 X10^3/uL; Monocyte% 11.6 % (0-10); NRBC Flagged by Analyzer 0.3 % (0-5); Neutrophil % 73.8 % (47-70); POSITIVE MORPHOLOGY YES; Platelet Count 117 K/mm3 (150-450); RBC Distribution Width CV 20.8 % (11.6-14.6); RBC Distribution Width SD 69.9 fl (35.1-43.9); Red Blood Count 3.65 M/mm3 (4.2-5.4); White Blood Count 11.5 K/mm3 (4.4-11.0)
[2019-09-20 05:46] LABS: Differential Indicated SCAN CRITERIA MET
[2019-09-20 05:53] LABS: Albumin, Serum 2.4 g/dL (3.2-5.0); BUN 38 mg/dL (7-18); BUN/Creat Ratio 9.3 RATIO (10-20); Calcium,Total 9.2 mg/dL (8.5-10.1); Chloride 102 mmol/L (98-107); Creatinine, Serum 4.07 mg/dL (0.55-1.02); EST Glomerular Filtration Rate 12 mL/min (>60); Est Glom Filt Rate - Afr Amer 15 mL/min (>60); Estimated Creatinine Clearance 12.62 ml/min; Glucose 258 mg/dL (74-106); Phosphorus 4.1 mg/dL (2.5-4.9); Sodium Level 136 mmol/L (136-145)
[2019-09-20] MEDS: Menthol/Lanolin/Calamine/Znox 113 GM Tube 1 APPLIC TOPICAL ×2 (06:32→14:06)
[2019-09-20] MEDS: Insulin Lispro 100 UNIT/ML INSULN.PEN SC ×4 (06:32→22:07)
[2019-09-20 06:41] LABS: Bedside Glucose 248 mg/dL (70-110)
[2019-09-20 07:55] LABS: Differential Comment SCANNED
[2019-09-20 07:56] LABS: Anisocytosis 2+; Macrocytosis 1+; Microcytosis 1+
[2019-09-20] MEDS: predniSONE 10 MG Tablet 30 MG PO (08:37)
[2019-09-20] MEDS: SEVELAMER CARBONATE 800 MG TABLET 2400 MG PO ×3 (08:37→16:46)
[2019-09-20] MEDS: DAKIN'S SOL HALF STRENGTH (=0.25%) 1 APPLIC TOPICAL (08:38)
[2019-09-20] MEDS: Docusate Sodium 100 MG Capsule PO (08:38)
[2019-09-20] MEDS: APIXABAN 5 MG TABLET PO ×2 (08:38→21:56)
[2019-09-20] MEDS: Pantoprazole Sodium 20 MG Tablet PO (08:39)
[2019-09-20] MEDS: Sertraline 50 MG Tablet 125 MG PO (08:40)
[2019-09-20] MEDS: Montelukast 10 MG Tablet PO (08:40)
[2019-09-20] MEDS: Multivitamins,Therapeutic Tablet 1 TABLET PO (08:40)
[2019-09-20] MEDS: Pregabalin 75 MG Capsule 150 MG PO ×2 (08:45→21:55)
[2019-09-20] MEDS: Glucerna Shake 120 ML LIQUID PO ×2 (09:52→16:46)
[2019-09-20] MEDS: 0.9% Saline Lock 10 ML Syringe IV ×2 (09:52→14:07)
--- NOTE | 2019-09-20 10:08 | PCM.PN.HOSP ---
<Sergio Sutherland - Last Filed: 09/20/19 10:08> Patient Problems: Active and Suspected Problems (Last Reviewed 09/19/19 @ 01:[address] Eren Robledo MD) Severe sepsis (Acute) Reason for Visit: fevers Subjective: no subjective/objective fevers. no change in abdominal/wound discomfort. no sob/cough. Vitals/I&O's: Vital Signs Temp Pulse Resp BP Pulse Ox 97.6 F L 92 18 102/55 L 94 09/20/19 04:05 09/20/19 07:00 09/20/19 04:05 09/20/19 04:05 09/20/19 07:17 Oxygen Flow Rate (L/min) 2 Oxygen Delivery Method Room Air Weight: 256 lb 13.416 oz Body Mass Index (BMI) 45.5 Intake and Output for Last 24 Hours 09/18/19 09/19/19 09/20/19 23:59 23:59 23:59 Intake Total 2263.33 / 2263.33 117.92 / 117.92 Output Total 2200 / 2200 0 / 0 Balance 63.33 / 63.33 117.92 / 117.92 General: Alert, Oriented x3, Cooperative HEENT: Atraumatic, PERRLA, EOMI, Normocephalic Neck: Supple, No JVD, Negative Carotid Bruits Lungs: Clear to auscultation, Normal air movement Cardiovascular: Regular rate, No murmurs Abdomen: Bowel Sounds Present, Soft, Non Tender, Obese - wound dressing in place., - Extremities: No edema, Capillary Refill Less than 3 Seconds Skin: No rashes, No breakdown Musculoskeletal: No Tenderness to Palpation of Joints or Extremities Neurological: Cranial nerves II-XII grossly intact Psych/Mental Status: Anxious, Alert and oriented to time, place, person, mood and affect Microbiology Past 72 Hours 09/19/19 05:45 Wound - Abdominal Gram Stain - Final Laboratory Results 09/19/19 04:18: WBC 17.0 H, RBC 3.89 L, Hgb 11.2 L, Hct 36.2 L, MCV 93.1, MCH 28.8, MCHC 30.9 L, RDW Std Deviation 73.0 H, RDW Coeff of Perico 21.6 H, Plt Count 113 L, MPV 12.4 H, Immature Gran % (Auto) 2.500 H, Neut % (Auto) 76.1 H, Lymph % (Auto) 11.8 L, [place] % (Auto) 9.4, Eos % (Auto) 0.0, Baso % (Auto) 0.2, Absolute Neuts (auto) 13.0 H, Absolute Lymphs (auto) 2.01, Nucleated RBC % 0.3, Differential Comment SCANNED, Diff Path Review October09/19/19 04:18: Sodium 137, Potassium 4.9, Chloride 101, Carbon Dioxide 24.0, Anion Gap 12, BUN 68 H, Creatinine 5.94 H, Estim Creat Clear Calc 8.64, Est GFR (MDRD) Af Amer 9 L, Est GFR (MDRD) Non-Af 8 L, BUN/Creatinine Ratio 11.4, Glucose 92, Calcium 9.5 09/19/19 05:45: S.aureus Protein A PCR NEGATIVE, MRSA (PCR) Negative 09/19/19 16:26: POC Glucose 240 H 09/19/19 21:24: POC Glucose 413 H 09/20/19 05:24: WBC 11.5 H, RBC 3.65 L, Hgb 10.5 L, Hct 33.7 L, MCV 92.3, MCH 28.8, MCHC 31.2 L, RDW Std Deviation 69.9 H, RDW Coeff of Perico 20.8 H, Plt Count 117 L, MPV 12.6 H, Immature Gran % (Auto) 3.600 H, Neut % (Auto) 73.8 H, Lymph % (Auto) 10.7 L, [place] % (Auto) 11.6 H, Eos % (Auto) 0.0, Baso % (Auto) 0.3, Absolute Neuts (auto) 8.5 H, Absolute Lymphs (auto) 1.23, Nucleated RBC % 0.3, Differential Comment SCANNED, Anisocytosis 2+, Microcytosis 1+, Macrocytosis 1+ 09/20/19 05:24: Sodium 136, Potassium 4.0, Chloride 102, Carbon Dioxide 24.0, BUN 38 H, Creatinine 4.07 H, Estim Creat Clear Calc 12.62, Est GFR (MDRD) Af Amer 15 L, Est GFR (MDRD) Non-Af 12 L, BUN/Creatinine Ratio 9.3 L, Glucose 258 H, Calcium 9.2, Phosphorus 4.1, Albumin 2.4 L 09/20/19 06:31: POC Glucose 248 H Current Medications Acetaminophen (Tylenol) 650 mg PO Q6H PRN PRN PRN Reason: Pain Score 1-10/Temp > 100.7 F Hydrocodone Bitart/Acetaminophen (Gillett 5mg-325mg) 1 - 2 tablet PO Q6H PRN PRN Reason: pain (4-10/10) Apixaban (Eliquis) 5 mg PO BID [facility] Last Admin: 09/20/19 08:38 Dose: 5 mg Documented by: Atorvastatin Calcium (Lipitor) 20 mg PO QHS [facility] Last Admin: 09/19/19 21:36 Dose: 20 mg Documented by: Bisacodyl (Dulcolax) 10 mg RECTAL DAILY PRN PRN PRN Reason: Constipation Calamine/Phenol (Calmoseptine Ointment) 1 applic TOPICAL TID [facility] Last Admin: 09/20/19 06:32 Dose: 1 applicatio Documented by: Dextrose (D50w Syringe) 0 gm IV X1 PRN; Protocol PRN Reason: Hypoglycemia Docusate Sodium (Colace) 100 mg PO DAILY [facility] Last Admin: 09/20/19 08:38 Dose: 100 mg Documented by: Glucagon () 1 mg IM .X1 PRN PRN Reason: Hypoglycemia Piperacillin Sod/Tazobactam (Sod 3.375 gm/ Sodium Chloride) 50 mls @ 12.5 mls/hr IV Q12 [facility] Last Admin: 09/20/19 09:51 Dose: 12.5 mls/hr Documented by: Vancomycin IV Pharmacy to Dose (1,250 ea/ Sodium Chloride) 500 mls @ 250 mls/hr IV PRN PRN; Protocol PRN Reason: RX TO DOSE Sodium Chloride () 250 mls @ 15 mls/hr IV .[id number] PRN PRN Reason: Saline Flush Insulin Human Lispro (Humalog [place] (Bkc)) 0 unit SC ACHS [facility]; Protocol Last Admin: 09/20/19 06:32 Dose: 3 units Documented by: Lactobacillus Acidophilus (Acidophilus) 1 tablet PO TID [facility] Last Admin: 09/20/19 06:32 Dose: 1 tablet Documented by: Magnesium Hydroxide (Milk Of Magnesia) 30 ml PO DAILY PRN PRN Reason: Constipation Midodrine (Proamatine) 5 mg PO TuThSa [facility] Last Admin: 09/19/19 11:50 Dose: 5 mg Documented by: Montelukast Sodium (Singulair) 10 mg PO DAILY [facility] Last Admin: 09/20/19 08:40 Dose: 10 mg Documented by: Multivitamins (Multivitamin) 1 tablet PO DAILYCM [facility] Last Admin: 09/20/19 08:40 Dose: 1 tablet Documented by: Nutritional Formula (Lactose Free) (Glucerna Shake) 120 ml PO TIDCM [facility] Last Admin: 09/20/19 09:52 Dose: 120 ml Documented by: Ondansetron HCl (Zofran) 4 mg IV Q8H PRN PRN PRN Reason: NAUSEA/VOMITING Pantoprazole Sodium (Protonix) 20 mg PO DAILY [facility] Last Admin: 09/20/19 08:39 Dose: 20 mg Documented by: Prednisone () 30 mg PO DAILYCM [facility] Last Admin: 09/20/19 08:37 Dose: 30 mg Documented by: Pregabalin (Lyrica) 150 mg PO Q12 [facility] Last Admin: 09/20/19 08:45 Dose: 150 mg Documented by: Senna/Docusate Sodium (Senokot-S, Leti-Colace) 2 tablet PO BID [facility] Last Admin: 09/20/19 08:39 Dose: Not Given Documented by: Sertraline HCl (Zoloft) 125 mg PO DAILY [facility] Last Admin: 09/20/19 08:40 Dose: 125 mg Documented by: Sevelamer Carbonate (Renvela) 2,400 mg PO TIDCM [facility] Last Admin: 09/20/19 08:37 Dose: 2,400 mg Documented by: Sodium Chloride () 10 - 40 ml IV UD PRN PRN Reason: SALINE FLUSH Last Admin: 09/20/19 09:52 Dose: 10 ml Documented by: Sodium Hypochlorite (Dakins Solution 0.25% (1/2 Strength)) 1 applic TOPICAL BID [facility]; Protocol Last Admin: 09/20/19 08:38 Dose: 1 applicatio Documented by: STROKE Vital Signs/Narrative: Vital Signs Pulse Pulse Ox 09/20/19 07:17 94 09/20/19 07:00 92 Medical Necessity - Tobacco Use Smoking Status: Never smoker Tobacco Use: Non-smoker Assessment/Plan All Active Problems (Last Reviewed 09/19/19 @ 01:[address] Eren Robledo MD) Severe sepsis (Acute) Necrotizing soft tissue infection (Resolved) 1. Acute severe sepsis 2/2 recurrent panniculitis, possible UTI- WBCs improved, afebrile. hx mrsa. MRSA/MSSA screen neg. continue vanc/zosyn. wound care/plastics following. will need close o/p f/u with the wound care center. UA not enough urine for sample. Cx obtained, pending. Wound cx with 1+ RBC, rare gram negative rods. 2. LLE pain - pt compliant with eliquis. venous duplex cancelled. suspect musculoskeletal. 3. ESRD - dr. Lew consulted. Hyperkalemia resolved. 4. CIDP - nonambulatory. snf resident. 5. DMt2 with morbid obesity - insulins held for hypoglycemia. SSI. 6. GERD - continue ppi 7. anx/depression - ssri DVT ppx: eliquis DC planning: return to SNF when appropriate This patient was seen by Sergio Sutherland PA-C under the supervision of Doctor Jostin. <Emmett Frankel F - Last Filed: 09/20/19 10:36> Vitals/I&O's: Vital Signs Temp Pulse Resp BP Pulse Ox 98.0 F 89 16 127/82 H 94 09/20/19 09:45 09/20/19 09:45 09/20/19 09:45 09/20/19 09:45 09/20/19 09:45 Oxygen Flow Rate (L/min) 2 Oxygen Delivery Method Room Air Weight: 256 lb 13.416 oz Body Mass Index (BMI) 45.5 Intake and Output for Last 24 Hours 09/18/19 09/19/19 09/20/19 23:59 23:59 23:59 Intake Total 2263.33 / 2263.33 117.92 / 117.92 Output Total 2200 / 2200 0 / 0 Balance 63.33 / 63.33 117.92 / 117.92 Microbiology Past 72 Hours 09/19/19 05:45 Wound - Abdominal Gram Stain - Final Laboratory Results 09/19/19 04:18: WBC 17.0 H, RBC 3.89 L, Hgb 11.2 L, Hct 36.2 L, MCV 93.1, MCH 28.8, MCHC 30.9 L, RDW Std Deviation 73.0 H, RDW Coeff of [place]ico 21.6 H, Plt Count 113 L, MPV 12.4 H, Immature Gran % (Auto) 2.500 H, Neut % (Auto) 76.1 H, Lymph % (Auto) 11.8 L, [place] % (Auto) 9.4, Eos % (Auto) 0.0, Baso % (Auto) 0.2, Absolute Neuts (auto) 13.0 H, Absolute Lymphs (auto) 2.01, Nucleated RBC % 0.3, Differential Comment SCANNED, Diff Path Review Reviewed 09/19/19 04:18: Sodium 137, Potassium 4.9, Chloride 101, Carbon Dioxide 24.0, Anion Gap 12, BUN 68 H, Creatinine 5.94 H, Estim Creat Clear Calc 8.64, Est GFR (MDRD) Af Amer 9 L, Est GFR (MDRD) Non-Af 8 L, BUN/Creatinine Ratio 11.4, Glucose 92, Calcium 9.5 09/19/19 16:26: POC Glucose 240 H 09/19/19 21:24: POC Glucose 413 H 09/20/19 05:24: WBC 11.5 H, RBC 3.65 L, Hgb 10.5 L, Hct 33.7 L, MCV 92.3, MCH 28.8, MCHC 31.2 L, RDW Std Deviation 69.9 H, RDW Coeff of [place]ico 20.8 H, Plt Count 117 L, MPV 12.6 H, Immature Gran % (Auto) 3.600 H, Neut % (Auto) 73.8 H, Lymph % (Auto) 10.7 L, [place] % (Auto) 11.6 H, Eos % (Auto) 0.0, Baso % (Auto) 0.3, Absolute Neuts (auto) 8.5 H, Absolute Lymphs (auto) 1.23, Nucleated RBC % 0.3, Differential Comment SCANNED, Anisocytosis 2+, Microcytosis 1+, Macrocytosis 1+ 09/20/19 05:24: Sodium 136, Potassium 4.0, Chloride 102, Carbon Dioxide 24.0, BUN 38 H, Creatinine 4.07 H, Estim Creat Clear Calc 12.62, Est GFR (MDRD) Af Amer 15 L, Est GFR (MDRD) Non-Af 12 L, BUN/Creatinine Ratio 9.3 L, Glucose 258 H, Calcium 9.2, Phosphorus 4.1, Albumin 2.4 L 09/20/19 06:31: POC Glucose 248 H Current Medications Acetaminophen (Tylenol) 650 mg PO Q6H PRN PRN PRN Reason: Pain Score 1-10/Temp > 100.7 F Hydrocodone Bitart/Acetaminophen ([place] 5mg-325mg) 1 - 2 tablet PO Q6H PRN PRN Reason: pain (4-10/10) Apixaban (Eliquis) 5 mg PO BID [facility] Last Admin: 09/20/19 08:38 Dose: 5 mg Documented by: Atorvastatin Calcium (Lipitor) 20 mg PO QHS [facility] Last Admin: 09/19/19 21:36 Dose: 20 mg Documented by: Bisacodyl (Dulcolax) 10 mg RECTAL DAILY PRN PRN PRN Reason: Constipation Calamine/Phenol (Calmoseptine Ointment) 1 applic TOPICAL TID [facility] Last Admin: 09/20/19 06:32 Dose: 1 applicatio Documented by: Dextrose (D50w Syringe) 0 gm IV X1 PRN; Protocol PRN Reason: Hypoglycemia Docusate Sodium (Colace) 100 mg PO DAILY [facility] Last Admin: 09/20/19 08:38 Dose: 100 mg Documented by: Glucagon () 1 mg IM .X1 PRN PRN Reason: Hypoglycemia Piperacillin Sod/Tazobactam (Sod 3.375 gm/ Sodium Chloride) 50 mls @ 12.5 mls/hr IV Q12 [facility] Last Admin: 09/20/19 09:51 Dose: 12.5 mls/hr Documented by: Vancomycin IV Pharmacy to Dose (1,250 ea/ Sodium Chloride) 500 mls @ 250 mls/hr IV PRN PRN; Protocol PRN Reason: RX TO DOSE Sodium Chloride () 250 mls @ 15 mls/hr IV .[id number] PRN PRN Reason: Saline Flush Insulin Human Lispro (Humalog Kwikpen (Bkc)) 0 unit SC ACHS [facility]; Protocol Last Admin: 09/20/19 06:32 Dose: 3 units Documented by: Lactobacillus Acidophilus (Acidophilus) 1 tablet PO TID [facility] Last Admin: 09/20/19 06:32 Dose: 1 tablet Documented by: Magnesium Hydroxide (Milk Of Magnesia) 30 ml PO DAILY PRN PRN Reason: Constipation Midodrine (Proamatine) 5 mg PO TuThSa [facility] Last Admin: 09/19/19 11:50 Dose: 5 mg Documented by: Montelukast Sodium (Singulair) 10 mg PO DAILY [facility] Last Admin: 09/20/19 08:40 Dose: 10 mg Documented by: Multivitamins (Multivitamin) 1 tablet PO DAILYCM [facility] Last Admin: 09/20/19 08:40 Dose: 1 tablet Documented by: Nutritional Formula (Lactose Free) (Glucerna Shake) 120 ml PO TIDCM [facility] Last Admin: 09/20/19 09:52 Dose: 120 ml Documented by: Ondansetron HCl (Zofran) 4 mg IV Q8H PRN PRN PRN Reason: NAUSEA/VOMITING Pantoprazole Sodium (Protonix) 20 mg PO DAILY [facility] Last Admin: 09/20/19 08:39 Dose: 20 mg Documented by: Prednisone () 30 mg PO DAILYCM [facility] Last Admin: 09/20/19 08:37 Dose: 30 mg Documented by: Pregabalin (Lyrica) 150 mg PO Q12 [facility] Last Admin: 09/20/19 08:45 Dose: 150 mg Documented by: Senna/Docusate Sodium (Senokot-S, Leti-Colace) 2 tablet PO BID [facility] Last Admin: 09/20/19 08:39 Dose: Not Given Documented by: Sertraline HCl (Zoloft) 125 mg PO DAILY [facility] Last Admin: 09/20/19 08:40 Dose: 125 mg Documented by: Sevelamer Carbonate (Renvela) 2,400 mg PO TIDCM [facility] Last Admin: 09/20/19 08:37 Dose: 2,400 mg Documented by: Sodium Chloride () 10 - 40 ml IV UD PRN PRN Reason: SALINE FLUSH Last Admin: 09/20/19 09:52 Dose: 10 ml Documented by: Sodium Hypochlorite (Dakins Solution 0.25% (1/2 Strength)) 1 applic TOPICAL BID [facility]; Protocol Last Admin: 09/20/19 08:38 Dose: 1 applicatio Documented by: STROKE Vital Signs/Narrative: Vital Signs Temp Pulse Resp BP Pulse Ox 09/20/19 09:45 98.0 F 89 16 127/82 H 94 09/20/19 07:17 94 09/20/19 07:00 92 Addendum: Dr. Frankel I personally examined the patient and reviewed the chart. I agree with the above. 59-year-old female with end-stage renal disease secondary to diabetes and chronic inflammatory demyelinating polyneuropathy presents with fever and confusion. The fever was felt to be secondary to possible left lower extremity cellulitis as well as a wound infection on her abdomen. Appreciate nephrology assistance and managing her dialysis and there is a consult out to surgery for evaluation of the wound. She is on dialysis which we will continue. She is also on Eliquis and she is on that twice a day and says that she has been taking the appropriate dose every day therefore the suspicion for DVT is extremely low. Because of the coronavirus we will therefore cancel her duplex ultrasound of her left lower extremity. We will continue to monitor, she did also appear to have a potential UTI based on purulent drainage when a Vargas was placed. A urine culture, blood cultures are pending as is a wound culture. We will continue with vancomycin and Zosyn for right now and narrow as able. Inpatient E&M: 83295 Subs Hosp L2
[2019-09-20 10:21] LABS: Pathologist Review Reviewed
--- NOTE | 2019-09-20 11:05 | CT_ITS ---
STUDY: CT ABDOMEN AND PELVIS WITHOUT CONTRAST REASON FOR EXAM: Female, 59 years old. Sepsis, large abdominal wound, recurrent panniculitis, chronic kidney disease on dialysis, diabetes, hypertension. Prior cholecystectomy, tubal. RADIATION DOSAGE (If Supplied By Facility): CTDIvol = ( 31.60 ) mGy, DLP = ( 1839.91 ) mGycm TECHNIQUE: Transaxial images were obtained from the dome of the diaphragm to the symphysis pubis without oral contrast, and without intravenous contrast. Sagittal and coronal images were reconstructed. Individualized dose optimization techniques were used for this CT. COMPARISON: Comparison is made with prior examination dated April 25, 2019. FINDINGS: Mild degree of increased markings at the lung bases suggestive of bibasilar atelectasis. Coronary artery calcifications. Normal liver. The patient is status post cholecystectomy. Mild splenomegaly. There is diffuse atrophy of the pancreas. Normal bilateral adrenal glands. Vision 1.6 cm cyst in the posterior upper pole of the right kidney. There is a 2.9 cm x 3.8 cm cyst in the upper pole of the left kidney. Normal visualized stomach. Normal small intestine. Normal colon. The appendix is visualized and appears normal. There is scattered atherosclerotic calcification of the abdominal aorta and major visceral branches, without a demonstrated aneurysm. Normal inferior vena cava. Normal retroperitoneum. Normal urinary bladder. There is a 16 cm x 5.4 cm x 2.7 cm area of increased density in the deep subcutaneous tissues overlying the posterior right lateral lower abdominal wall. This abuts the abdominal musculature at that site. This most likely corresponds to the area of dependent colitis. This is essentially unchanged as compared to prior study. Dextroscoliosis. CT/Abdomen/Pelvis without Cont IMPRESSION: Stable examination demonstrating increased density in the deep right lateral abdominal subcutaneous tissues. Electronically Signed: Sylvester Minaya, at 12:55 EDT , Service support ,
[2019-09-20 11:30] LABS: Bedside Glucose 414 mg/dL (70-110)
--- NOTE | 2019-09-20 13:48 | PCM.PN.SRG ---
Patient Problems: Active and Suspected Problems (Last Reviewed 09/19/19 @ 01:[address] Eren Robledo MD) Severe sepsis (Acute) Subjective: Patient is known to me. She is [facility] for her nonhealing diabetic ulcer right lateral abdominal wall. This resulted from a surgery on 04/26/19 where she underwent surgical preparation right lateral abdominal wall with incision and drainage and excisional debridement skin and subcutaneous tissue and fascia nonhealing infected diabetic necrotic ulcerated abscesses necrotizing soft tissue infection (377 cm2) and abdominal panniculectomy. At the present time, her wound care is Dakin's dressing changes twice a day. At the senior care, it was once daily. She was recently admitted because of fever. Urine culture shows Gram negative iglesia lactose checkering machine adjuster and Gram positive iglesia. Wound culture shows Gram negative iglesia and Gram negative iglesia lactose checkering machine adjuster. Her most recent culture before admission was on 08/05/19 which showed Proteus mirabilis, MRSA, Corynebacterium striatum, and Prevotella melaninogenica. She was placed on Augmentin and Zyvox. When she was admitted, she was placed on Vancomycin and Zosyn. I was asked to evaluate her nonhealing diabetic ulcer right lateral abdominal wall for surgical options for treatment. - Physical Exam Vitals/I&O's: Vital Signs Temp Pulse Resp BP Pulse Ox 98.0 F 89 16 127/82 H 94 09/20/19 09:45 09/20/19 09:45 09/20/19 09:45 09/20/19 09:45 09/20/19 09:45 Oxygen Flow Rate (L/min) 2 Oxygen Delivery Method Room Air Weight: 256 lb 13.416 oz Body Mass Index (BMI) 45.5 Intake and Output for Last 24 Hours 09/18/19 09/19/19 09/20/19 23:59 23:59 23:59 Intake Total 2263.33 / 2263.33 536.88 / 536.88 Output Total 2200 / 2200 0 / 0 Balance 63.33 / 63.33 536.88 / 536.88 General: Alert, Oriented x3 HEENT: PERRLA, EOMI Oral: Moist Mucosa Neck: Supple Abdomen: Soft, Non-Distended Skin: Ulcer/ Wound - right lateral abdominal wall wound shows good granulation tissue throughout except at the base where there is some residual fat. No purulent drainage noted. Minimal periwound tenderness when doing the Dakin's dressing change. No periwound redness. No odor. Measures 25 x 5 x 4.5 cm. Neurological: Cranial nerves II-XII grossly intact Psych/Mental Status: Normal Affect, Appropriate Microbiology Past 72 Hours 09/19/19 05:45 Wound - Abdominal Gram Stain - Final 09/19/19 05:45 Wound - Abdominal Wound Culture - Preliminary Gram negative iglesia GNR lactose checkering machine adjuster 09/18/19 00:35 Urine Catheter - Catheter Urine Culture - Preliminary GNR lactose checkering machine adjuster Gram positive organism Laboratory Results 09/19/19 04:18: Diff Path Review Reviewed 09/19/19 05:45: S.aureus Protein A PCR NEGATIVE, MRSA (PCR) Negative 09/19/19 16:26: POC Glucose 240 H 09/19/19 21:24: POC Glucose 413 H 09/20/19 05:24: WBC 11.5 H, RBC 3.65 L, Hgb 10.5 L, Hct 33.7 L, MCV 92.3, MCH 28.8, MCHC 31.2 L, RDW Std Deviation 69.9 H, RDW Coeff of Perico 20.8 H, Plt Count 117 L, MPV 12.6 H, Immature Gran % (Auto) 3.600 H, Neut % (Auto) 73.8 H, Lymph % (Auto) 10.7 L, [place] % (Auto) 11.6 H, Eos % (Auto) 0.0, Baso % (Auto) 0.3, Absolute Neuts (auto) 8.5 H, Absolute Lymphs (auto) 1.23, Nucleated RBC % 0.3, Differential Comment SCANNED, Anisocytosis 2+, Microcytosis 1+, Macrocytosis 1+ 09/20/19 05:24: Sodium 136, Potassium 4.0, Chloride 102, Carbon Dioxide 24.0, BUN 38 H, Creatinine 4.07 H, Estim Creat Clear Calc 12.62, Est GFR (MDRD) Af Amer 15 L, Est GFR (MDRD) Non-Af 12 L, BUN/Creatinine Ratio 9.3 L, Glucose 258 H, Calcium 9.2, Phosphorus 4.1, Albumin 2.4 L 09/20/19 06:31: POC Glucose 248 H 09/20/19 11:16: POC Glucose 414 H Diagnostic Data Chest X-Ray 09/18/19 22:59 IMPRESSION: Stable chest without evidence for focal lung consolidative changes. Electronically Signed: Chino Carey, at 0:30 EDT Tel , Service support , Abdomen/Pelvis CT 09/20/19 11:05 IMPRESSION: Stable examination demonstrating increased density in the deep right lateral abdominal subcutaneous tissues. Electronically Signed: Sylvester Marimar, at 12:55 EDT , Service support , Current Medications Acetaminophen (Tylenol) 650 mg PO Q6H PRN PRN PRN Reason: Pain Score 1-10/Temp > 100.7 F Hydrocodone Bitart/Acetaminophen (Arion 5mg-325mg) 1 - 2 tablet PO Q6H PRN PRN Reason: pain (4-10/10) Apixaban (Eliquis) 5 mg PO BID [facility] Last Admin: 09/20/19 08:38 Dose: 5 mg Documented by: Atorvastatin Calcium (Lipitor) 20 mg PO QHS [facility] Last Admin: 09/19/19 21:36 Dose: 20 mg Documented by: Bisacodyl (Dulcolax) 10 mg RECTAL DAILY PRN PRN PRN Reason: Constipation Calamine/Phenol (Calmoseptine Ointment) 1 applic TOPICAL TID [facility] Last Admin: 09/20/19 06:32 Dose: 1 applicatio Documented by: Dextrose (D50w Syringe) 0 gm IV X1 PRN; Protocol PRN Reason: Hypoglycemia Docusate Sodium (Colace) 100 mg PO DAILY [facility] Last Admin: 09/20/19 08:38 Dose: 100 mg Documented by: Glucagon () 1 mg IM .X1 PRN PRN Reason: Hypoglycemia Piperacillin Sod/Tazobactam (Sod 3.375 gm/ Sodium Chloride) 50 mls @ 12.5 mls/hr IV Q12 [facility] Last Infusion: 09/20/19 12:24 Dose: 12.5 mls/hr Documented by: Vancomycin IV Pharmacy to Dose (1,250 ea/ Sodium Chloride) 500 mls @ 250 mls/hr IV PRN PRN; Protocol PRN Reason: RX TO DOSE Sodium Chloride () 250 mls @ 15 mls/hr IV .[id number] PRN PRN Reason: Saline Flush Insulin Human Lispro (Humalog Erynpen (Bkc)) 0 unit SC ACHS [facility]; Protocol Last Admin: 09/20/19 11:19 Dose: 7 units Documented by: Lactobacillus Acidophilus (Acidophilus) 1 tablet PO TID [facility] Last Admin: 09/20/19 06:32 Dose: 1 tablet Documented by: Magnesium Hydroxide (Milk Of Magnesia) 30 ml PO DAILY PRN PRN Reason: Constipation Midodrine (Proamatine) 5 mg PO TuThSa [facility] Last Admin: 09/19/19 11:50 Dose: 5 mg Documented by: Montelukast Sodium (Singulair) 10 mg PO DAILY [facility] Last Admin: 09/20/19 08:40 Dose: 10 mg Documented by: Multivitamins (Multivitamin) 1 tablet PO DAILYCM [facility] Last Admin: 09/20/19 08:40 Dose: 1 tablet Documented by: Nutritional Formula (Lactose Free) (Glucerna Shake) 120 ml PO TIDCM [facility] Last Admin: 09/20/19 11:18 Dose: Not Given Documented by: Ondansetron HCl (Zofran) 4 mg IV Q8H PRN PRN PRN Reason: NAUSEA/VOMITING Pantoprazole Sodium (Protonix) 20 mg PO DAILY [facility] Last Admin: 09/20/19 08:39 Dose: 20 mg Documented by: Prednisone () 30 mg PO DAILYCM [facility] Last Admin: 09/20/19 08:37 Dose: 30 mg Documented by: Pregabalin (Lyrica) 150 mg PO Q12 [facility] Last Admin: 09/20/19 08:45 Dose: 150 mg Documented by: Senna/Docusate Sodium (Senokot-S, Leti-Colace) 2 tablet PO BID [facility] Last Admin: 09/20/19 08:39 Dose: Not Given Documented by: Sertraline HCl (Zoloft) 125 mg PO DAILY [facility] Last Admin: 09/20/19 08:40 Dose: 125 mg Documented by: Sevelamer Carbonate (Renvela) 2,400 mg PO TIDCM [facility] Last Admin: 09/20/19 11:19 Dose: 2,400 mg Documented by: Sodium Chloride () 10 - 40 ml IV UD PRN PRN Reason: SALINE FLUSH Last Admin: 09/20/19 09:52 Dose: 10 ml Documented by: Sodium Hypochlorite (Dakins Solution 0.25% (1/2 Strength)) 1 applic TOPICAL BID [facility]; Protocol Last Admin: 09/20/19 08:38 Dose: 1 applicatio Documented by: Medical Necessity - Tobacco Use Smoking Status: Never smoker Tobacco Use: Non-smoker Assessment/Plan All Active Problems (Last Reviewed 09/19/19 @ 01:[address] Eren Robledo MD) Severe sepsis (Acute) Necrotizing soft tissue infection (Resolved) 1. Nonhealing diabetic ulcer right lateral abdominal wall. 2. Painful insulin nodules abdominal wall. 3. ESRD requiring dialysis. 4. Diabetes mellitus. 5. Sepsis, resolving. 6. Abdominal panniculus. 7. Abdominal wall skin crease intertrigo. 8. MRSA. Continue Vancomycin and Zosyn until discharge. The wound culture shows Gram negative iglesia and Gram negative iglesia lactose checkering machine adjuster. The urine culture shows Gram negative iglesia lactose checkering machine adjuster and Gram positive organism. Her last outpatient culture on 08/05/19 showed Proteus mirabilis, MRSA, Corynebacterium, and Prevotella melaninogenica. She was placed on Augmentin and Zyvox. CT Abdomen reviewed. No abscess seen. There is increased density at the base of the wound which is adherent to the abdominal wall. At the time of surgery, I went down to the abdominal wall with the excision. There is no urgent need for surgery at this time. Continue dialysis on Monday, , and Monday. Will check a HgbA1c. Her last one in 05/07 was 7.4. For any surgical procedure such as complex secondary wound closure, it needs to be less than 8. After discharge, followup at [facility] in a couple of weeks. She had been scheduled for further operative debridement and complex secondary wound closure. However, it was cancelled because of the Coronavirus. Can discuss surgical closure in the future after the virus clears up. Inpatient E&M: 14019 Subs Hosp L2 - ICD-10 - E11.622, T88.9xxA, N18.6, A41.9, E11.9, E65, L30.4, A49.02
--- NOTE | 2019-09-20 14:20 | CHAPLAIN ---
Type of Pastoral Visit _x__ Initial Visit ___ Follow-up Visit ___ On-call Visit ___ General Patient Visit ___ Spiritual Assessment ___ Family Conference ___ Bereavement ___ Rapid Response ___ Code Blue ___ Other (describe below) Pastoral Care Referral From _x__ Patient ___ Family ___ Nurse ___ Physician ___ Dye House Wheel Operator ___ Chief Specialist Leed ___ Other (describe below) Sacrament/Intervention _x__ Active listening ___ Anointing ___ Taoist ___ Bereavement ___ Communion _x__ Thais exploration ___ ___ Life review _x__ Prayer ___ Reconciliation ___ Sacrament of Sick _x__ Supportive presence ___ Wedding ___ Other (describe below) Pastoral Comments patient requested Buddhist zeeshan for Lenten readings to follow the Mass; this lease broker will secure requested material;
--- NOTE | 2019-09-20 14:32 | CASEMGMT ---
Social Work Clinical updates faxed to Shay Rosemary. Call to Anjali at [facility] and requested precert be started. Will likely not hear back until Monday and pt will be here for the weekend. Pt notified and expressed understanding. Plan: Shay Riley, pending precert BERNARD Finney
[2019-09-20 15:22] LABS: Hemoglobin A1c 7.5 % (4.2-6.3)
[2019-09-20] MEDS: Insulin Lispro 100 UNIT/ML INSULN.PEN 20 UNIT SC (17:30)
[2019-09-20 17:35] LABS: Bedside Glucose > 500 mg/dL (70-110)
[2019-09-20] MEDS: Atorvastatin Calcium 20 MG Tablet PO (21:57)
[2019-09-20] MEDS: Senna/Docusate Sodium 1 Tablet 2 TABLET PO (21:57)
[2019-09-20] MEDS: Insulin Lispro 100 UNIT/ML INSULN.PEN 7 UNIT SC (22:08)
[2019-09-20 23:30] LABS: Bedside Glucose 357 mg/dL (70-110)
[2019-09-21] VITALS (13 sets, daily range): BP systolic 106–161; BP diastolic 59–83; PULSE 18–110; RESP 16–18; TEMP 36.3–37.2; O2SAT 90–97
[2019-09-21] MEDS: DAKIN'S SOL HALF STRENGTH (=0.25%) 1 APPLIC TOPICAL ×3 (00:24→22:23)
[2019-09-21 03:11] LABS: Bedside Glucose 286 mg/dL (70-110)
[2019-09-21] MEDS: Menthol/Lanolin/Calamine/Znox 113 GM Tube 1 APPLIC TOPICAL ×2 (05:36→19:00)
[2019-09-21 06:12] LABS: Absolute Lymphocyte Count 0.98 X10^3/uL (0.83-4.51); Absolute Neutrophil Count 6.7 X10^3/uL (2.0-7.7); Basophil# 0.02 X10^3/uL; Basophil% 0.2 % (0-1); Hematocrit 30.8 % (37-47); Hemoglobin 9.7 g/dL (12.0-15.0); Lymphocyte # 0.98 X10^3/ul (4.0); Mean Corp Hgb Conc 31.5 g/dL (32-36); Mean Corpuscular Hgb 28.5 pg (27.0-32.0); Mean Corpuscular Volume 90.6 fL (81-99); Mean Platelet Vol. 12.7 fl (6.2-12.0); Monocyte# 0.91 X10^3/uL; Monocyte% 10.2 % (0-10); NRBC Flagged by Analyzer 0 % (0-5); Neutrophil # 6.67 X10^3/uL (2.7-7.7); Neutrophil % 74.8 % (47-70); POSITIVE MORPHOLOGY YES; Platelet Count 119 K/mm3 (150-450); RBC Distribution Width CV 20.4 % (11.6-14.6); RBC Distribution Width SD 67.7 fl (35.1-43.9); White Blood Count 8.9 K/mm3 (4.4-11.0)
[2019-09-21 06:32] LABS: Differential Indicated SCAN CRITERIA MET
[2019-09-21 07:09] LABS: Anion Gap 12 (5-15); BUN 52 mg/dL (7-18); BUN/Creat Ratio 9.2 RATIO (10-20); Calcium,Total 9.4 mg/dL (8.5-10.1); Chloride 98 mmol/L (98-107); Creatinine, Serum 5.64 mg/dL (0.55-1.02); EST Glomerular Filtration Rate 8 mL/min (>60); Est Glom Filt Rate - Afr Amer 10 mL/min (>60); Glucose 220 mg/dL (74-106); Potassium 3.8 mmol/L (3.5-5.1); Sodium Level 135 mmol/L (136-145)
[2019-09-21 07:10] LABS: Vancomycin, Random Level 21.9 ug/mL (0.0-15.0)
[2019-09-21 07:43] LABS: Anisocytosis 1+
[2019-09-21 08:06] LABS: Bedside Glucose 161 mg/dL (70-110)
--- NOTE | 2019-09-21 09:11 | PHA.PHARE_ITS ---
Consult Pharmacy has been consulted to manage selected antiobiotic: Vancomycin Type of Consult: Follow-up Labs: Sodium 135 mmol/L (136-145) L 09/21/19 05:30 Potassium 3.8 mmol/L (3.5-5.1) 09/21/19 05:30 Chloride 98 mmol/L (98-107) 09/21/19 05:30 Carbon Dioxide 25.0 mmol/L (21.0-32.0) 09/21/19 05:30 Anion Gap 12 (5-15) 09/21/19 05:30 BUN 52 mg/dL (7-18) H 09/21/19 05:30 Creatinine 5.64 mg/dL (0.55-1.02) H 09/21/19 05:30 Est GFR (MDRD) Af Amer 10 mL/min (>60) L 09/21/19 05:30 Est GFR (MDRD) Non-Af 8 mL/min (>60) L 09/21/19 05:30 BUN/Creatinine Ratio 9.2 RATIO (10-20) L 09/21/19 05:30 Glucose 220 mg/dL (74-106) H 09/21/19 05:30 Random Vancomycin 21.9 ug/mL (0.0-15.0) H 09/21/19 05:30 Microbiology: Microbiology 09/19/19 05:45 Wound - Abdominal Gram Stain - Final 09/19/19 05:45 Wound - Abdominal Wound Culture - Preliminary Proteus mirabilis GNR lactose instrument technician helper 09/19/19 05:45 Wound - Abdominal Anaerobic Culture - Preliminary No anaerobic bacteria isolated. 09/18/19 00:35 Urine Catheter - Catheter Urine Culture - Preliminary Klebsiella pneumoniae sp pneum Gram positive organism Pharmacy Plan for Drug Dosing: Pre-dialysis vancomycin level > 20 mcg/mL. No dose today, re-check prior to next dialysis session per policy. Pharmacy Service will continue to monitor and adjust dosing as required. Follow-Up Labs: Trough Vancomycin - 09/23 0600 Random
[2019-09-21] MEDS: Epoetin Alfa epbx 10,000 UNITS/ML 6000 UNIT IV (10:02)
[2019-09-21] MEDS: APIXABAN 5 MG TABLET PO ×2 (10:03→22:04)
[2019-09-21] MEDS: Montelukast 10 MG Tablet PO (10:03)
[2019-09-21] MEDS: predniSONE 10 MG Tablet 30 MG PO (10:03)
[2019-09-21] MEDS: Pantoprazole Sodium 20 MG Tablet PO (10:03)
[2019-09-21] MEDS: Multivitamins,Therapeutic Tablet 1 TABLET PO (10:04)
[2019-09-21] MEDS: Sertraline 50 MG Tablet 125 MG PO (10:04)
[2019-09-21] MEDS: Midodrine HCl 5 MG Tablet PO (10:07)
[2019-09-21] MEDS: Pregabalin 75 MG Capsule 150 MG PO ×2 (10:10→21:56)
--- NOTE | 2019-09-21 10:46 | PCM.PN.REN ---
Patient Problems: Active and Suspected Problems (Last Reviewed 09/19/19 @ 01:[address] Eren Robledo MD) Severe sepsis (Acute) Subjective: seen on dialysis via facetime. Vitals stable. Pt without SOB. Asked if can have tuna salad. - Physical Exam Vitals/I&O's: Vital Signs Temp Pulse Resp BP Pulse Ox 98.4 F 93 16 111/73 96 09/21/19 10:24 09/21/19 10:24 09/21/19 10:24 09/21/19 10:24 09/21/19 10:24 Oxygen Flow Rate (L/min) 2 Oxygen Delivery Method Room Air Weight: 116.5 kg Body Mass Index (BMI) 45.5 Intake and Output for Last 24 Hours 09/19/19 09/20/19 09/21/19 23:59 23:59 23:59 Intake Total 2263.33 / 2263.33 1322.92 / 1322.92 50 / 50 Output Total 2200 / 2200 50 / 50 3 / 3 Balance 63.33 / 63.33 1272.92 / 1272.92 47 / 47 General: Alert, Oriented x3, Cooperative, No apparent distress, - Microbiology Past 72 Hours 09/19/19 05:45 Wound - Abdominal Gram Stain - Final 09/19/19 05:45 Wound - Abdominal Wound Culture - Preliminary Proteus mirabilis GNR lactose frog or oyster farmworker 09/19/19 05:45 Wound - Abdominal Anaerobic Culture - Preliminary No anaerobic bacteria isolated. 09/18/19 00:35 Urine Catheter - Catheter Urine Culture - Preliminary Klebsiella pneumoniae sp pneum Gram positive organism Laboratory Results 09/19/19 05:45: S.aureus Protein A PCR NEGATIVE, MRSA (PCR) Negative 09/20/19 05:24: Hemoglobin A1c 7.5 H 09/20/19 11:16: POC Glucose 414 H 09/20/19 16:45: POC Glucose > 500 H* 09/20/19 22:06: POC Glucose 357 H 09/20/19 23:43: POC Glucose 286 H 09/21/19 05:30: Random Vancomycin 21.9 H 09/21/19 05:30: WBC 8.9, RBC 3.40 L, Hgb 9.7 L, Hct 30.8 L, MCV 90.6, MCH 28.5, MCHC 31.5 L, RDW Std Deviation 67.7 H, RDW Coeff of Perico 20.4 H, Plt Count 119 L, MPV 12.7 H, Immature Gran % (Auto) 3.800 H, Neut % (Auto) 74.8 H, Lymph % (Auto) 11.0 L, [place] % (Auto) 10.2 H, Eos % (Auto) 0.0, Baso % (Auto) 0.2, Absolute Neuts (auto) 6.7, Absolute Lymphs (auto) 0.98, Nucleated RBC % 0, Anisocytosis 1+ 09/21/19 05:30: Sodium 135 L, Potassium 3.8, Chloride 98, Carbon Dioxide 25.0, Anion Gap 12, BUN 52 H, Creatinine 5.64 H, Estim Creat Clear Calc 9.10, Est GFR (MDRD) Af Amer 10 L, Est GFR (MDRD) Non-Af 8 L, BUN/Creatinine Ratio 9.2 L, Glucose 220 H, Calcium 9.4 09/21/19 07:58: POC Glucose 161 H Current Medications Acetaminophen (Tylenol) 650 mg PO Q6H PRN PRN PRN Reason: Pain Score 1-10/Temp > 100.7 F Hydrocodone Bitart/Acetaminophen ([place] 5mg-325mg) 1 - 2 tablet PO Q6H PRN PRN Reason: pain (4-10/10) Apixaban (Eliquis) 5 mg PO BID [facility] Last Admin: 09/21/19 10:03 Dose: 5 mg Documented by: Atorvastatin Calcium (Lipitor) 20 mg PO QHS [facility] Last Admin: 09/20/19 21:57 Dose: 20 mg Documented by: Bisacodyl (Dulcolax) 10 mg RECTAL DAILY PRN PRN PRN Reason: Constipation Calamine/Phenol (Calmoseptine Ointment) 1 applic TOPICAL TID [facility] Last Admin: 09/21/19 05:36 Dose: 1 applicatio Documented by: Dextrose (D50w Syringe) 0 gm IV X1 PRN; Protocol PRN Reason: Hypoglycemia Docusate Sodium (Colace) 100 mg PO DAILY [facility] Last Admin: 09/20/19 08:38 Dose: 100 mg Documented by: Glucagon () 1 mg IM .X1 PRN PRN Reason: Hypoglycemia Heparin Sodium (Porcine) () 0 - 10,000 units IV PRN PRN PRN Reason: FOR DIALYSIS CATH USE ONLY Piperacillin Sod/Tazobactam (Sod 3.375 gm/ Sodium Chloride) 50 mls @ 12.5 mls/hr IV Q12 [facility] Last Infusion: 09/21/19 01:54 Dose: Infused Documented by: Vancomycin IV Pharmacy to Dose (1,250 ea/ Sodium Chloride) 500 mls @ 250 mls/hr IV PRN PRN; Protocol PRN Reason: RX TO DOSE Sodium Chloride () 250 mls @ 15 mls/hr IV .[id number] PRN PRN Reason: Saline Flush Insulin Glargine (Lantus (Bkc)) 15 units SC QHS [facility] Last Admin: 09/20/19 22:09 Dose: 15 u Documented by: Insulin Human Lispro (Humalog Kwikpen (Bkc)) 0 unit SC ACHS [facility]; Protocol Last Admin: 09/21/19 08:17 Dose: Not Given Documented by: Insulin Human Lispro (Humalog Kwikpen (Bkc)) 7 unit SC QHS [facility] Last Admin: 09/20/19 22:08 Dose: 7 u Documented by: Insulin Human Lispro (Humalog Kwikpen (Bkc)) 15 unit SC BREAKFAST [facility] Last Admin: 09/21/19 08:17 Dose: Not Given Documented by: Insulin Human Lispro (Humalog Kwikpen (Bkc)) 20 unit SC DINNER [facility] Last Admin: 09/20/19 17:30 Dose: 20 u Documented by: Lactobacillus Acidophilus (Acidophilus) 1 tablet PO TID [facility] Last Admin: 09/21/19 05:36 Dose: 1 tablet Documented by: Magnesium Hydroxide (Milk Of Magnesia) 30 ml PO DAILY PRN PRN Reason: Constipation Midodrine (Proamatine) 5 mg PO TuThSa [facility] Last Admin: 09/21/19 10:07 Dose: 5 mg Documented by: Montelukast Sodium (Singulair) 10 mg PO DAILY [facility] Last Admin: 09/21/19 10:03 Dose: 10 mg Documented by: Multivitamins (Multivitamin) 1 tablet PO DAILYCM [facility] Last Admin: 09/21/19 10:04 Dose: 1 tablet Documented by: Nutritional Formula (Lactose Free) (Glucerna Shake) 120 ml PO TIDCM [facility] Last Admin: 09/21/19 08:17 Dose: Not Given Documented by: Ondansetron HCl (Zofran) 4 mg IV Q8H PRN PRN PRN Reason: NAUSEA/VOMITING Pantoprazole Sodium (Protonix) 20 mg PO DAILY [facility] Last Admin: 09/21/19 10:03 Dose: 20 mg Documented by: Prednisone () 30 mg PO DAILYCM [facility] Last Admin: 09/21/19 10:03 Dose: 30 mg Documented by: Pregabalin (Lyrica) 150 mg PO Q12 [facility] Last Admin: 09/21/19 10:10 Dose: 150 mg Documented by: Senna/Docusate Sodium (Senokot-S, Leti-Colace) 2 tablet PO BID [facility] Last Admin: 09/20/19 21:57 Dose: 2 tablet Documented by: Sertraline HCl (Zoloft) 125 mg PO DAILY [facility] Last Admin: 09/21/19 10:04 Dose: 125 mg Documented by: Sevelamer Carbonate (Renvela) 2,400 mg PO TIDCM [facility] Last Admin: 09/21/19 08:17 Dose: Not Given Documented by: Sodium Chloride () 10 - 40 ml IV UD PRN PRN Reason: SALINE FLUSH Last Admin: 09/20/19 14:07 Dose: 10 ml Documented by: Sodium Hypochlorite (Dakins Solution 0.25% (1/2 Strength)) 1 applic TOPICAL BID [facility]; Protocol Last Admin: 09/21/19 00:24 Dose: 1 applicatio Documented by: Medical Necessity - Tobacco Use Smoking Status: Never smoker Tobacco Use: Non-smoker Assessment/Plan All Active Problems (Last Reviewed 09/19/19 @ 01:[address] Eren Robledo MD) Severe sepsis (Acute) Necrotizing soft tissue infection (Resolved) 1 ESRD HD , , Sat. Seen on dialysis via facetime, midodrine for low BP. Fluid removal as tolerated on 2K bath. 2 Fever with leukocytosis r/o sepsis from dialysis line. Blood cx no growth so far. Hold vanco iv for level >20. l 3. Chronic wounds abdomen LLE Dr Salamanca following, on iv antibx 4. Anemia epo on dialysis 5. Morbid obesity 6. Hyperphosphatemia improved. Continue binders, ok to have tuna salad.
[2019-09-21 12:15] LABS: Bedside Glucose 147 mg/dL (70-110)
--- NOTE | 2019-09-21 12:53 | DIALYSIS ---
Pt completed 4 hours hemodialysis with 3 liters fluid removed. Left chest CVC flushed with NS and locked with heparin per order. Pt tolerated treatment without difficulty.
[2019-09-21] MEDS: Glucerna Shake 120 ML LIQUID PO ×2 (13:05→17:25)
[2019-09-21] MEDS: 0.9% Saline Lock 10 ML Syringe IV ×3 (13:05→21:58)
[2019-09-21] MEDS: SEVELAMER CARBONATE 800 MG TABLET 2400 MG PO ×2 (13:08→17:25)
[2019-09-21] MEDS: Heparin 10,000 UNITS/10 ML Vial IV (13:10)
--- NOTE | 2019-09-21 13:26 | PCM.PN.HOSP ---
<Sergio Sutherland - Last Filed: 09/21/19 13:26> Patient Problems: Active and Suspected Problems (Last Reviewed 09/19/19 @ 01:[address] Eren Robledo MD) Severe sepsis (Acute) Reason for Visit: abd wound infection Subjective: doing well, no issues overnight. dialysis today. No LH/dizziness. No fever/chills. Abd pain improved. Vitals/I&O's: Vital Signs Temp Pulse Resp BP Pulse Ox 98.2 F 18 L 18 117/59 L 96 09/21/19 12:49 09/21/19 12:49 09/21/19 12:49 09/21/19 12:49 09/21/19 10:24 Oxygen Flow Rate (L/min) 2 Oxygen Delivery Method Room Air Weight: 256 lb 13.416 oz Body Mass Index (BMI) 45.5 Intake and Output for Last 24 Hours 09/19/19 09/20/19 09/21/19 23:59 23:59 23:59 Intake Total 2263.33 / 2263.33 1322.92 / 1322.92 50.25 / 50.25 Output Total 2200 / 2200 50 / 50 3003 / 3003 Balance 63.33 / 63.33 1272.92 / 1272.92 -2952.75 / -2952.75 General: Alert, Oriented x3, Cooperative HEENT: Atraumatic, PERRLA, EOMI, Normocephalic Neck: Supple, No JVD, Negative Carotid Bruits Lungs: Clear to auscultation, Normal air movement Cardiovascular: Regular rate, No murmurs Abdomen: Bowel Sounds Present, Soft, Non Tender Extremities: No edema, Capillary Refill Less than 3 Seconds Skin: No rashes, No breakdown Musculoskeletal: No Tenderness to Palpation of Joints or Extremities Neurological: Cranial nerves II-XII grossly intact Psych/Mental Status: Normal Affect, Appropriate, Alert and oriented to time, place, person, mood and affect Microbiology Past 72 Hours 09/19/19 05:45 Wound - Abdominal Gram Stain - Final 09/19/19 05:45 Wound - Abdominal Wound Culture - Preliminary Proteus mirabilis 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 09/18/19 00:35 Urine Catheter - Catheter Urine Culture - Preliminary Klebsiella pneumoniae sp pneum Gram positive organism Laboratory Results 09/19/19 05:45: S.aureus Protein A PCR NEGATIVE, MRSA (PCR) Negative 09/20/19 05:24: Hemoglobin A1c 7.5 H 09/20/19 16:45: POC Glucose > 500 H* 09/20/19 22:06: POC Glucose 357 H 09/20/19 23:43: POC Glucose 286 H 09/21/19 05:30: Random Vancomycin 21.9 H 09/21/19 05:30: WBC 8.9, RBC 3.40 L, Hgb 9.7 L, Hct 30.8 L, MCV 90.6, MCH 28.5, MCHC 31.5 L, RDW Std Deviation 67.7 H, RDW Coeff of Perico 20.4 H, Plt Count 119 L, MPV 12.7 H, Immature Gran % (Auto) 3.800 H, Neut % (Auto) 74.8 H, Lymph % (Auto) 11.0 L, [place] % (Auto) 10.2 H, Eos % (Auto) 0.0, Baso % (Auto) 0.2, Absolute Neuts (auto) 6.7, Absolute Lymphs (auto) 0.98, Nucleated RBC % 0, Anisocytosis 1+ 09/21/19 05:30: Sodium 135 L, Potassium 3.8, Chloride 98, Carbon Dioxide 25.0, Anion Gap 12, BUN 52 H, Creatinine 5.64 H, Estim Creat Clear Calc 9.10, Est GFR (MDRD) Af Amer 10 L, Est GFR (MDRD) Non-Af 8 L, BUN/Creatinine Ratio 9.2 L, Glucose 220 H, Calcium 9.4 09/21/19 07:58: POC Glucose 161 H 09/21/19 12:08: POC Glucose 147 H Current Medications Acetaminophen (Tylenol) 650 mg PO Q6H PRN PRN PRN Reason: Pain Score 1-10/Temp > 100.7 F Hydrocodone Bitart/Acetaminophen (Dutton 5mg-325mg) 1 - 2 tablet PO Q6H PRN PRN Reason: pain (4-10/10) Apixaban (Eliquis) 5 mg PO BID [facility] Last Admin: 09/21/19 10:03 Dose: 5 mg Documented by: Atorvastatin Calcium (Lipitor) 20 mg PO QHS [facility] Last Admin: 09/20/19 21:57 Dose: 20 mg Documented by: Bisacodyl (Dulcolax) 10 mg RECTAL DAILY PRN PRN PRN Reason: Constipation Calamine/Phenol (Calmoseptine Ointment) 1 applic TOPICAL TID [facility] Last Admin: 09/21/19 05:36 Dose: 1 applicatio Documented by: Dextrose (D50w Syringe) 0 gm IV X1 PRN; Protocol PRN Reason: Hypoglycemia Docusate Sodium (Colace) 100 mg PO DAILY [facility] Last Admin: 09/21/19 12:59 Dose: Not Given Documented by: Glucagon () 1 mg IM .X1 PRN PRN Reason: Hypoglycemia Heparin Sodium (Porcine) () 0 - 10,000 units IV PRN PRN PRN Reason: FOR DIALYSIS CATH USE ONLY Last Admin: 09/21/19 13:10 Dose: 7,000 units Documented by: Piperacillin Sod/Tazobactam (Sod 3.375 gm/ Sodium Chloride) 50 mls @ 12.5 mls/hr IV Q12 [facility] Last Admin: 09/21/19 13:05 Dose: 12.5 mls/hr Documented by: Vancomycin IV Pharmacy to Dose (1,250 ea/ Sodium Chloride) 500 mls @ 250 mls/hr IV PRN PRN; Protocol PRN Reason: RX TO DOSE Sodium Chloride () 250 mls @ 15 mls/hr IV .[id number] PRN PRN Reason: Saline Flush Last Infusion: 09/21/19 13:06 Dose: 0 mls/hr Documented by: Insulin [facility]ine ([facility] (Bkc)) [facility] Last Admin: 09/20/19 22:09 Dose: 15 u Documented by: Insulin Human Lispro (Humalog Kwikpen (Bkc)) 0 unit SC ACHS [facility]; Protocol Last Admin: 09/21/19 12:10 Dose: Not Given Documented by: Insulin Human Lispro (Humalog Kwikpen (Bkc)) 7 unit SC QHS [facility] Last Admin: 09/20/19 22:08 Dose: 7 u Documented by: Insulin Human Lispro (Humalog Kwikpen (Bkc)) 15 unit SC BREAKFAST [facility] Last Admin: 09/21/19 08:17 Dose: Not Given Documented by: Insulin Human Lispro (Humalog Kwikpen (Bkc)) 20 unit SC DINNER [facility] Last Admin: 09/20/19 17:30 Dose: 20 u Documented by: Lactobacillus Acidophilus (Acidophilus) 1 tablet PO TID [facility] Last Admin: 09/21/19 13:09 Dose: 1 tablet Documented by: Magnesium Hydroxide (Milk Of Magnesia) 30 ml PO DAILY PRN PRN Reason: Constipation Midodrine (Proamatine) 5 mg PO TuThSa [facility] Last Admin: 09/21/19 10:07 Dose: 5 mg Documented by: Montelukast Sodium (Singulair) 10 mg PO DAILY [facility] Last Admin: 09/21/19 10:03 Dose: 10 mg Documented by: Multivitamins (Multivitamin) 1 tablet PO DAILYCM [facility] Last Admin: 09/21/19 10:04 Dose: 1 tablet Documented by: Nutritional Formula (Lactose Free) (Glucerna Shake) 120 ml PO TIDCM [facility] Last Admin: 09/21/19 13:05 Dose: 120 ml Documented by: Ondansetron HCl (Zofran) 4 mg IV Q8H PRN PRN PRN Reason: NAUSEA/VOMITING Pantoprazole Sodium (Protonix) 20 mg PO DAILY [facility] Last Admin: 09/21/19 10:03 Dose: 20 mg Documented by: Prednisone () 30 mg PO DAILYCM [facility] Last Admin: 09/21/19 10:03 Dose: 30 mg Documented by: Pregabalin (Lyrica) 150 mg PO Q12 [facility] Last Admin: 09/21/19 10:10 Dose: 150 mg Documented by: Senna/Docusate Sodium (Senokot-S, Leti-Colace) 2 tablet PO BID [facility] Last Admin: 09/21/19 12:59 Dose: Not Given Documented by: Sertraline HCl (Zoloft) 125 mg PO DAILY [facility] Last Admin: 09/21/19 10:04 Dose: 125 mg Documented by: Sevelamer Carbonate (Renvela) 2,400 mg PO TIDCM [facility] Last Admin: 09/21/19 13:08 Dose: 2,400 mg Documented by: Sodium Chloride () 10 - 40 ml IV UD PRN PRN Reason: SALINE FLUSH Last Admin: 09/21/19 13:05 Dose: 10 ml Documented by: Sodium Hypochlorite (Dakins Solution 0.25% (1/2 Strength)) 1 applic TOPICAL BID [facility]; Protocol Last Admin: 09/21/19 00:24 Dose: 1 applicatio Documented by: STROKE Vital Signs/Narrative: Vital Signs Temp Pulse Resp BP Pulse Ox 09/21/19 12:49 98.2 F 18 L 18 117/59 L 09/21/19 10:24 98.4 F 93 16 111/73 96 Medical Necessity - Tobacco Use Smoking Status: Never smoker Tobacco Use: Non-smoker Assessment/Plan All Active Problems (Last Reviewed 09/19/19 @ 01:[address] Eren Robledo MD) Severe sepsis (Acute) Necrotizing soft tissue infection (Resolved) 1. Acute severe sepsis 2/2 recurrent panniculitis, possible UTI - wbc elevation resolved. 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 Continue Vanc/zosyn. await final differentiation. Transition to PO abx at dc. -Follow up with Dr. Salamanca as o/p at wound care center. 2. LLE pain - pt compliant with eliquis. venous duplex cancelled. suspect musculoskeletal. 3. ESRD - dr. Lew consulted. Hyperkalemia resolved. Dialysis today. 4. CIDP - nonambulatory. snf resident. 5. DMt2 with morbid obesity - insulins resumed. improved. adjust as needed. 6. GERD - continue ppi 7. anx/depression - ssri DVT ppx: eliquis DC planning: return to SNF when appropriate, awaiting precert. This patient was seen by Sergio Sutherland PA-C under the supervision of Doctor Jostin. <Emmett Frankel F - Last Filed: 09/21/19 14:58> Vitals/I&O's: Vital Signs Temp Pulse Resp BP Pulse Ox 98.2 F 18 L 18 117/59 L 96 09/21/19 12:49 09/21/19 12:49 09/21/19 12:49 09/21/19 12:49 09/21/19 10:24 Oxygen Flow Rate (L/min) 2 Oxygen Delivery Method Room Air Weight: 256 lb 13.416 oz Body Mass Index (BMI) 45.5 Intake and Output for Last 24 Hours 09/19/19 09/20/19 09/21/19 23:59 23:59 23:59 Intake Total 2263.33 / 2263.33 1322.92 / 1322.92 50.25 / 50.25 Output Total 2200 / 2200 50 / 50 3003 / 3003 Balance 63.33 / 63.33 1272.92 / 1272.92 -2952.75 / -2952.75 Microbiology Past 72 Hours 09/18/19 23:05 Blood Culture (Wb) - Anticubital Left Blood Culture - Preliminary No growth in 48 hours. 09/18/19 23:20 Blood Culture (Wb) - Anticubital Right Blood Culture - Preliminary No growth in 48 hours. 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 09/18/19 00:35 Urine Catheter - Catheter Urine Culture - Preliminary Klebsiella pneumoniae sp pneum Gram positive organism Laboratory Results 09/19/19 05:45: S.aureus Protein A PCR NEGATIVE, MRSA (PCR) Negative 09/20/19 05:24: Hemoglobin A1c 7.5 H 09/20/19 16:45: POC Glucose > 500 H* 09/20/19 22:06: POC Glucose 357 H 09/20/19 23:43: POC Glucose 286 H 09/21/19 05:30: Random Vancomycin 21.9 H 09/21/19 05:30: WBC 8.9, RBC 3.40 L, Hgb 9.7 L, Hct 30.8 L, MCV 90.6, MCH 28.5, MCHC 31.5 L, RDW Std Deviation 67.7 H, RDW Coeff of Perico 20.4 H, Plt Count 119 L, MPV 12.7 H, Immature Gran % (Auto) 3.800 H, Neut % (Auto) 74.8 H, Lymph % (Auto) 11.0 L, [place] % (Auto) 10.2 H, Eos % (Auto) 0.0, Baso % (Auto) 0.2, Absolute Neuts (auto) 6.7, Absolute Lymphs (auto) 0.98, Nucleated RBC % 0, Anisocytosis 1+ 09/21/19 05:30: Sodium 135 L, Potassium 3.8, Chloride 98, Carbon Dioxide 25.0, Anion Gap 12, BUN 52 H, Creatinine 5.64 H, Estim Creat Clear Calc 9.10, Est GFR (MDRD) Af Amer 10 L, Est GFR (MDRD) Non-Af 8 L, BUN/Creatinine Ratio 9.2 L, Glucose 220 H, Calcium 9.4 09/21/19 07:58: POC Glucose 161 H 09/21/19 12:08: POC Glucose 147 H Current Medications Acetaminophen (Tylenol) 650 mg PO Q6H PRN PRN PRN Reason: Pain Score 1-10/Temp > 100.7 F Hydrocodone Bitart/Acetaminophen (Dutton 5mg-325mg) 1 - 2 tablet PO Q6H PRN PRN Reason: pain (4-1010) Apixaban (Eliquis) 5 mg PO BID [facility] Last Admin: 09/21/19 10:03 Dose: 5 mg Documented by: Atorvastatin Calcium (Lipitor) 20 mg PO QHS [facility] Last Admin: 09/20/19 21:57 Dose: 20 mg Documented by: Bisacodyl (Dulcolax) 10 mg RECTAL DAILY PRN PRN PRN Reason: Constipation Calamine/Phenol (Calmoseptine Ointment) 1 applic TOPICAL TID [facility] Last Admin: 09/21/19 14:20 Dose: Not Given Documented by: Dextrose (D50w Syringe) 0 gm IV X1 PRN; Protocol PRN Reason: Hypoglycemia Docusate Sodium (Colace) 100 mg PO DAILY [facility] Last Admin: 09/21/19 12:59 Dose: Not Given Documented by: Glucagon () 1 mg IM .X1 PRN PRN Reason: Hypoglycemia Heparin Sodium (Porcine) () 0 - 10,000 units IV PRN PRN PRN Reason: FOR DIALYSIS CATH USE ONLY Last Admin: 09/21/19 13:10 Dose: 7,000 units Documented by: Piperacillin Sod/Tazobactam (Sod 3.375 gm/ Sodium Chloride) 50 mls @ 12.5 mls/hr IV Q12 [facility] Last Admin: 09/21/19 13:05 Dose: 12.5 mls/hr Documented by: Vancomycin IV Pharmacy to Dose (1,250 ea/ Sodium Chloride) 500 mls @ 250 mls/hr IV PRN PRN; Protocol PRN Reason: RX TO DOSE Sodium Chloride () 250 mls @ 15 mls/hr IV .[id number] PRN PRN Reason: Saline Flush Last Infusion: 09/21/19 13:06 Dose: 0 mls/hr Documented by: Insulin Glargine (Lantus (Bkc)) 15 units SC QHS [facility] Last Admin: 09/20/19 22:09 Dose: 15 u Documented by: Insulin Human Lispro (Humalog Kwikpen (Bk)) 0 unit SC ACHS [facility]; Protocol Last Admin: 09/21/19 12:10 Dose: Not Given Documented by: Insulin Human Lispro (Humalog Kwikpen (Bkc)) 7 unit SC QHS [facility] Last Admin: 09/20/19 22:08 Dose: 7 u Documented by: Insulin Human Lispro (Humalog Kwikpen (Bkc)) 15 unit SC BREAKFAST [facility] Last Admin: 09/21/19 08:17 Dose: Not Given Documented by: Insulin Human Lispro (Humalog Kwikpen (Bkc)) 20 unit SC DINNER [facility] Last Admin: 09/20/19 17:30 Dose: 20 u Documented by: Lactobacillus Acidophilus (Acidophilus) 1 tablet PO TID [facility] Last Admin: 09/21/19 13:09 Dose: 1 tablet Documented by: Magnesium Hydroxide (Milk Of Magnesia) 30 ml PO DAILY PRN PRN Reason: Constipation Midodrine (Proamatine) 5 mg PO TuThSa [facility] Last Admin: 09/21/19 10:07 Dose: 5 mg Documented by: Montelukast Sodium (Singulair) 10 mg PO DAILY [facility] Last Admin: 09/21/19 10:03 Dose: 10 mg Documented by: Multivitamins (Multivitamin) 1 tablet PO DAILYCM [facility] Last Admin: 09/21/19 10:04 Dose: 1 tablet Documented by: Nutritional Formula (Lactose Free) (Glucerna Shake) 120 ml PO TIDCM [facility] Last Admin: 09/21/19 13:05 Dose: 120 ml Documented by: Ondansetron HCl (Zofran) 4 mg IV Q8H PRN PRN PRN Reason: NAUSEA/VOMITING Pantoprazole Sodium (Protonix) 20 mg PO DAILY [facility] Last Admin: 09/21/19 10:03 Dose: 20 mg Documented [facility]: [facility] Last Admin: 09/21/19 10:03 Dose: 30 mg Documented by: Pregabalin (Lyrica) 150 mg PO Q12 [facility] Last Admin: 09/21/19 10:10 Dose: 150 mg Documented by: Senna/Docusate Sodium (Senokot-S, Leti-Colace) 2 tablet PO BID [facility] Last Admin: 09/21/19 12:59 Dose: Not Given Documented by: Sertraline HCl (Zoloft) 125 mg PO DAILY [facility] Last Admin: 09/21/19 10:04 Dose: 125 mg Documented by: Sevelamer Carbonate (Renvela) 2,400 mg PO TIDCM [facility] Last Admin: 09/21/19 13:08 Dose: 2,400 mg Documented by: Sodium Chloride () 10 - 40 ml IV UD PRN PRN Reason: SALINE FLUSH Last Admin: 09/21/19 13:05 Dose: 10 ml Documented by: Sodium Hypochlorite (Dakins Solution 0.25% (1/2 Strength)) 1 applic TOPICAL BID [facility]; Protocol Last Admin: 09/21/19 14:17 Dose: 1 applicatio Documented by: STROKE Vital Signs/Narrative: Vital Signs Temp Pulse Resp BP 09/21/19 12:49 98.2 F 18 L 18 117/59 L Addendum: Dr. Frankel I personally examined the patient and reviewed the chart. I agree with the above. 59-year-old female with end-stage renal disease secondary to diabetes and chronic inflammatory demyelinating polyneuropathy presents with fever and confusion. The fever was felt to be secondary to possible left lower extremity cellulitis as well as a wound infection on her abdomen. Appreciate nephrology assistance and managing her dialysis as well as surgery for this with the wound. She is on dialysis which we will continue. She is also on Eliquis and she is on that twice a day and says that she has been taking the appropriate dose every day therefore the suspicion for DVT is extremely low. Because of the coronavirus we will therefore cancel her duplex ultrasound of her left lower extremity. We will continue to monitor, she did also appear to have a potential UTI based on purulent drainage when a Vargas was placed. A urine culture, blood cultures are pending as is a wound culture. We will continue with vancomycin and Zosyn for right now and narrow as able, she Proteus in her wound and Klebsiella in her urine, still waiting for identification of gram-positive organism. Can likely be narrowed to p.o. Augmentin on discharge. Inpatient E&M: [id number] Subs Hosp L2
--- NOTE | 2019-09-21 14:19 | NURSING ---
HAAS CATH D/C'ED WITHOUT DIFFICULTY. ANUREA.
[2019-09-21] MEDS: Insulin Lispro 100 UNIT/ML INSULN.PEN SC ×2 (17:22→21:54)
[2019-09-21] MEDS: Insulin Lispro 100 UNIT/ML INSULN.PEN 20 UNIT SC (17:23)
[2019-09-21 17:35] LABS: Bedside Glucose 430 mg/dL (70-110)
[2019-09-21] MEDS: Insulin Lispro 100 UNIT/ML INSULN.PEN 7 UNIT SC (21:54)
[2019-09-21] MEDS: Atorvastatin Calcium 20 MG Tablet PO (21:56)
[2019-09-21] MEDS: Senna/Docusate Sodium 1 Tablet 2 TABLET PO (21:57)
[2019-09-21 22:31] LABS: Bedside Glucose 328 mg/dL (70-110)
[2019-09-22] VITALS (8 sets, daily range): BP systolic 113–165; BP diastolic 68–72; PULSE 71–99; RESP 12–20; TEMP 36.1–36.9; O2SAT 94–97
[2019-09-22] MEDS: 0.9% Saline Lock 10 ML Syringe IV ×2 (02:50→21:27)
[2019-09-22 06:05] LABS: Anion Gap 8 (5-15); BUN 29 mg/dL (7-18); BUN/Creat Ratio 7.2 RATIO (10-20); Calcium,Total 9.5 mg/dL (8.5-10.1); Chloride 101 mmol/L (98-107); Creatinine, Serum 4.03 mg/dL (0.55-1.02); EST Glomerular Filtration Rate 12 mL/min (>60); Est Glom Filt Rate - Afr Amer 15 mL/min (>60); Estimated Creatinine Clearance 12.74 ml/min; Glucose 175 mg/dL (74-106); Potassium 4.1 mmol/L (3.5-5.1); Sodium Level 136 mmol/L (136-145)
[2019-09-22] MEDS: Menthol/Lanolin/Calamine/Znox 113 GM Tube 1 APPLIC TOPICAL ×3 (06:25→21:26)
[2019-09-22] MEDS: Insulin Lispro 100 UNIT/ML INSULN.PEN 15 UNIT SC (07:49)
[2019-09-22] MEDS: Insulin Lispro 100 UNIT/ML INSULN.PEN SC ×4 (07:49→21:29)
[2019-09-22] MEDS: SEVELAMER CARBONATE 800 MG TABLET 2400 MG PO ×3 (07:50→17:40)
[2019-09-22] MEDS: predniSONE 10 MG Tablet 30 MG PO (07:51)
[2019-09-22] MEDS: Multivitamins,Therapeutic Tablet 1 TABLET PO (07:51)
[2019-09-22] MEDS: Glucerna Shake 120 ML LIQUID PO ×2 (07:55→11:27)
[2019-09-22 08:01] LABS: Bedside Glucose 153 mg/dL (70-110)
[2019-09-22] MEDS: Pantoprazole Sodium 20 MG Tablet PO (10:19)
[2019-09-22] MEDS: Sertraline 50 MG Tablet 125 MG PO (10:20)
[2019-09-22] MEDS: APIXABAN 5 MG TABLET PO ×2 (10:20→21:25)
[2019-09-22] MEDS: Montelukast 10 MG Tablet PO (10:21)
[2019-09-22] MEDS: DAKIN'S SOL HALF STRENGTH (=0.25%) 1 APPLIC TOPICAL ×2 (10:22→21:28)
[2019-09-22] MEDS: Pregabalin 75 MG Capsule 150 MG PO ×2 (10:23→21:36)
--- NOTE | 2019-09-22 11:06 | PN_ITS ---
<Sergio Sutherland - Last Filed: 09/22/19 11:06> Patient Problems: Active and Suspected Problems (Last Reviewed 09/19/19 @ 01:[address] Eren Robledo MD) Severe sepsis (Acute) Reason for Visit: nonhealing abd wound Subjective: Pt with no issues overnight. Pain at wound improved. no fever/chills. No cough/sob/nausea/vomiting/diarrhea. Vitals/I&O's: Vital Signs Temp Pulse Resp BP Pulse Ox 98.3 F 82 16 130/72 H 95 09/22/19 08:00 09/22/19 08:00 09/22/19 08:00 09/22/19 08:00 09/22/19 08:00 Oxygen Flow Rate (L/min) 2 Oxygen Delivery Method Room Air Weight: 255 lb 1.197 oz Body Mass Index (BMI) 45.5 Intake and Output for Last 24 Hours 09/20/19 09/21/19 09/22/19 23:59 23:59 23:59 Intake Total 1322.92 / 1322.92 979.00 / 979.00 162.75 / 162.75 Output Total 50 / 50 6003 / 6003 Balance 1272.92 / 1272.92 -5024.00 / -5024.00 162.75 / 162.75 General: Alert, Oriented x3, Cooperative HEENT: Atraumatic, PERRLA, EOMI, Normocephalic Neck: Supple, No JVD, Negative Carotid Bruits Lungs: Clear to auscultation, Normal air movement Cardiovascular: Regular rate, No murmurs Abdomen: Bowel Sounds Present, Soft, Non Tender, Obese Extremities: No edema, Capillary Refill Less than 3 Seconds Skin: No rashes, No breakdown Musculoskeletal: No Tenderness to Palpation of Joints or Extremities Neurological: Cranial nerves II-XII grossly intact Psych/Mental Status: Normal Affect, Appropriate, Alert and oriented to time, place, person, mood and affect Microbiology Past 72 Hours 09/18/19 00:35 Urine Catheter - Catheter Urine Culture - Final Klebsiella pneumoniae sp pneum Presumptive Lactobacillus sp. 09/19/19 05:45 Wound - Abdominal Gram Stain - Final 09/19/19 05:45 Wound - Abdominal Wound Culture - Final Proteus mirabilis Klebsiella pneumoniae sp pneum 09/19/19 05:45 Wound - Abdominal Anaerobic Culture - Final No anaerobic bacteria isolated. 09/19/19 13:50 Blood Culture (Wb) - Dialysis/Fistula Blood Culture - Preliminary No growth in 48 hours. 09/18/19 23:05 Blood Culture (Wb) - Anticubital Left Blood Culture - Preliminary No growth in 48 hours. 09/18/19 23:20 Blood Culture (Wb) - Anticubital Right Blood Culture - Preliminary No growth in 48 hours. Laboratory Results 09/21/19 12:08: POC Glucose 147 H 09/21/19 17:20: POC Glucose 430 H 09/21/19 21:50: POC Glucose 328 H 09/22/19 05:14: Sodium 136, Potassium 4.1, Chloride 101, Carbon Dioxide 27.0, Anion Gap 8, BUN 29 H, Creatinine 4.03 H, Estim Creat Clear Calc 12.74, Est GFR (MDRD) Af Amer 15 L, Est GFR (MDRD) Non-Af 12 L, BUN/Creatinine Ratio 7.2 L, Glucose 175 H, Calcium 9.5 09/22/19 07:43: POC Glucose 153 H Current Medications Acetaminophen (Tylenol) 650 mg PO Q6H PRN PRN PRN Reason: Pain Score 1-10/Temp > 100.7 F Hydrocodone Bitart/Acetaminophen ([place] 5mg-325mg) 1 - 2 tablet PO Q6H PRN PRN Reason: pain (4-10/10) Apixaban (Eliquis) 5 mg PO BID [facility] Last Admin: 09/22/19 10:20 Dose: 5 mg Documented by: Atorvastatin Calcium (Lipitor) 20 mg PO QHS [facility] Last Admin: 09/21/19 21:56 Dose: 20 mg Documented by: Bisacodyl (Dulcolax) 10 mg RECTAL DAILY PRN PRN PRN Reason: Constipation Calamine/Phenol (Calmoseptine Ointment) 1 applic TOPICAL TID [facility] Last Admin: 09/22/19 06:25 Dose: 1 applicatio Documented by: Dextrose (D50w Syringe) 0 gm IV X1 PRN; Protocol PRN Reason: Hypoglycemia Docusate Sodium (Colace) 100 mg PO DAILY [facility] Last Admin: 09/22/19 10:19 Dose: Not Given Documented by: Glucagon () 1 mg IM .X1 PRN PRN Reason: Hypoglycemia Heparin Sodium (Porcine) () 0 - 10,000 units IV PRN PRN PRN Reason: FOR DIALYSIS CATH USE ONLY Last Admin: 09/21/19 13:10 Dose: 7,000 units Documented by: Sodium Chloride () 250 mls @ 15 mls/hr IV .[id number] PRN PRN Reason: Saline Flush Last Infusion: 09/22/19 02:49 Dose: 0 mls/hr Documented by: Cefazolin Sodium () 1 gm in 50 mls @ 100 mls/hr IV Q8 [facility] Insulin Glargine (Lantus (Bkc)) 15 units SC QHS [facility] Last Admin: 09/21/19 21:54 Dose: 15 u Documented by: Insulin Human Lispro (Humalog Kwikpen (Bkc)) 0 unit SC ACHS [facility]; Protocol Last Admin: 09/22/19 07:49 Dose: 1 units Documented by: Insulin Human Lispro (Humalog Kwikpen (Bkc)) 7 unit SC QHS [facility] Last Admin: 09/21/19 21:54 Dose: 7 u Documented by: Insulin Human Lispro (Humalog Kwikpen (Bkc)) 15 unit SC BREAKFAST [facility] Last Admin: 09/22/19 07:49 Dose: 15 units Documented by: Insulin Human Lispro (Humalog Kwikpen (Bkc)) 20 unit SC DINNER [facility] Last Admin: 09/21/19 17:23 Dose: 20 u Documented by: Lactobacillus Acidophilus (Acidophilus) 1 tablet PO TID [facility] Last Admin: 09/22/19 06:25 Dose: 1 tablet Documented by: Magnesium Hydroxide (Milk Of Magnesia) 30 ml PO DAILY PRN PRN Reason: Constipation Midodrine (Proamatine) 5 mg PO TuThSa [facility] Last Admin: 09/21/19 10:07 Dose: 5 mg Documented by: Montelukast Sodium (Singulair) 10 mg PO DAILY [facility] Last Admin: 09/22/19 10:21 Dose: 10 mg Documented by: [facility]it[facility]) [facility] Last Admin: 09/22/19 07:51 Dose: 1 tablet Documented by: Nutritional Formula (Lactose Free) (Glucerna Shake) 120 ml PO TIDCM [facility] Last Admin: 09/22/19 07:55 Dose: 120 ml Documented by: Ondansetron HCl (Zofran) 4 mg IV Q8H PRN PRN PRN Reason: NAUSEA/VOMITING Pantoprazole Sodium (Protonix) 20 mg PO DAILY [facility] Last Admin: 09/22/19 10:19 Dose: 20 mg Documented by: Prednisone () 30 mg PO DAILYCM [facility] Last Admin: 09/22/19 07:51 Dose: 30 mg Documented by: Pregabalin (Lyrica) 150 mg PO Q12 [facility] Last Admin: 09/22/19 10:23 Dose: 150 mg Documented by: Senna/Docusate Sodium (Senokot-S, Leti-Colace) 2 tablet PO BID [facility] Last Admin: 09/22/19 10:19 Dose: Not Given Documented by: Sertraline HCl (Zoloft) 125 mg PO DAILY [facility] Last Admin: 09/22/19 10:20 Dose: 125 mg Documented by: Sevelamer Carbonate (Renvela) 2,400 mg PO TIDCM [facility] Last Admin: 09/22/19 07:50 Dose: 2,400 mg Documented by: Sodium Chloride () 10 - 40 ml IV UD PRN PRN Reason: SALINE FLUSH Last Admin: 09/22/19 02:50 Dose: 10 ml Documented by: Sodium Hypochlorite (Dakins Solution 0.25% (1/2 Strength)) 1 applic TOPICAL BID [facility]; Protocol Last Admin: 09/22/19 10:22 Dose: 1 applicatio Documented by: STROKE Vital Signs/Narrative: Vital Signs Temp Pulse Resp BP Pulse Ox 09/22/19 08:00 98.3 F 82 16 130/72 H 95 Medical Necessity - Tobacco Use Smoking Status: Never smoker Tobacco Use: Non-smoker Assessment/Plan All Active Problems (Last Reviewed 09/19/19 @ 01:[address] Eren Robledo MD) Severe sepsis (Acute) Necrotizing soft tissue infection (Resolved) 1. Acute severe sepsis 2/2 recurrent panniculitis, possible UTI - vanc/zosyn stopped. ancef started. Wound cx with Proteus and Klebsiella, susceptible to ancef, urine with Klebsiella and lactobacillus, Klebsiella susceptible to ancef. Tachycardia resolved. No fever. WBC elevation resolved. -Follow up with [facility] as an [facility]. -Transition to PO abx at [facility]. Complete 10-14 days. 2. LLE pain - pt compliant with eliquis. venous duplex cancelled. suspect musculoskeletal. 3. ESRD - dr. Lew following. 4. CIDP - nonambulatory. snf resident. 5. DMt2 with morbid obesity - insulins resumed. improved. adjust as needed. 6. GERD - continue ppi 7. anx/depression - ssri DVT ppx: eliquis DC planning: return to SNF when appropriate, awaiting precert. This patient was seen by Sergio Sutherland PA-C under the supervision of Doctor Jostin. <Emmett Frankel F - Last Filed: 09/22/19 13:27> Vitals/I&O's: Vital Signs Temp Pulse Resp BP Pulse Ox 98.3 F 82 16 130/72 H 95 09/22/19 08:00 09/22/19 08:00 09/22/19 08:00 09/22/19 08:00 09/22/19 08:00 Oxygen Flow Rate (L/min) 2 Oxygen Delivery Method Room Air Weight: 255 lb 1.197 oz Body Mass Index (BMI) 45.5 Intake and Output for Last 24 Hours 09/20/19 09/21/19 09/22/19 23:59 23:59 23:59 Intake Total 1322.92 / 1322.92 979.00 / 979.00 162.75 / 162.75 Output Total 50 / 50 6003 / 6003 Balance 1272.92 / 1272.92 -5024.00 / -5024.00 162.75 / 162.75 Microbiology Past 72 Hours 09/18/19 00:35 Urine Catheter - Catheter Urine Culture - Final Klebsiella pneumoniae sp pneum Presumptive Lactobacillus sp. 09/19/19 05:45 Wound - Abdominal Gram Stain - Final 09/19/19 05:45 Wound - Abdominal Wound Culture - Final Proteus mirabilis Klebsiella pneumoniae sp pneum 09/19/19 05:45 Wound - Abdominal Anaerobic Culture - Final No anaerobic bacteria isolated. 09/19/19 13:50 Blood Culture (Wb) - Dialysis/Fistula Blood Culture - Preliminary No growth in 48 hours. 09/18/19 23:05 Blood Culture (Wb) - Anticubital Left Blood Culture - Preliminary No growth in 48 hours. 09/18/19 23:20 Blood Culture (Wb) - Anticubital Right Blood Culture - Preliminary No growth in 48 hours. Laboratory Results 09/21/19 17:20: POC Glucose 430 H 09/21/19 21:50: POC Glucose 328 H 09/22/19 05:14: Sodium 136, Potassium 4.1, Chloride 101, Carbon Dioxide 27.0, Anion Gap 8, BUN 29 H, Creatinine 4.03 H, Estim Creat Clear Calc 12.74, Est GFR (MDRD) Af Amer 15 L, Est GFR (MDRD) Non-Af 12 L, BUN/Creatinine Ratio 7.2 L, Glucose 175 H, Calcium 9.5 09/22/19 07:43: POC Glucose 153 H 09/22/19 11:25: POC Glucose 190 H Current Medications Acetaminophen (Tylenol) 650 mg PO Q6H PRN PRN PRN Reason: Pain Score 1-10/Temp > 100.7 F Hydrocodone Bitart/Acetaminophen ([place] 5mg-325mg) 1 - 2 tablet PO Q6H PRN PRN Reason: pain (4-10/10) Apixaban (Eliquis) 5 mg PO BID [facility] Last Admin: 09/22/19 10:20 Dose: 5 mg Documented by: Atorvastatin Calcium (Lipitor) 20 mg PO QHS [facility] Last Admin: 09/21/19 21:56 Dose: 20 mg Documented by: Bisacodyl (Dulcolax) 10 mg RECTAL DAILY PRN PRN PRN Reason: Constipation Calamine/Phenol (Calmoseptine Ointment) 1 applic TOPICAL TID [facility] Last Admin: 09/22/19 06:25 Dose: 1 applicatio Documented by: Dextrose (D50w Syringe) 0 gm IV X1 PRN; Protocol PRN Reason: Hypoglycemia Docusate Sodium (Colace) 100 mg PO DAILY [facility] Last Admin: 09/22/19 10:19 Dose: Not Given Documented by: Glucagon () 1 mg IM .X1 PRN PRN Reason: Hypoglycemia Heparin Sodium (Porcine) () 0 - 10,000 units IV PRN PRN PRN Reason: FOR DIALYSIS CATH USE ONLY Last Admin: 09/21/19 13:10 Dose: 7,000 units Documented by: Sodium Chloride () 250 mls @ 15 mls/hr IV .[id number] PRN PRN Reason: Saline Flush Last Infusion: 09/22/19 02:49 Dose: 0 mls/hr Documented by: Cefazolin Sodium () 1 gm in 50 mls @ 100 mls/hr IV Q8 [facility] Insulin Glargine (Lantus (Bkc)) 15 units SC QHS [facility] Last Admin: 09/21/19 21:54 Dose: 15 u Documented by: Insulin Human Lispro (Humalog Kwikpen (Bkc)) 0 unit SC ACHS [facility]; Protocol Last Admin: 09/22/19 11:27 Dose: 2 units Documented by: Insulin Human Lispro (Humalog Kwikpen (Bkc)) 7 unit SC QHS [facility] Last Admin: 09/21/19 21:54 Dose: 7 u Documented by: Insulin Human Lispro (Humalog Kwikpen (Bkc)) 15 unit SC BREAKFAST [facility] Last Admin: 09/22/19 07:49 Dose: 15 units Documented by: Insulin Human Lispro (Humalog Kwikpen (Bkc)) 20 unit SC DINNER [facility] Last Admin: 09/21/19 17:23 Dose: 20 u Documented by: Lactobacillus Acidophilus (Acidophilus) 1 tablet PO TID [facility] Last Admin: 09/22/19 06:25 Dose: 1 tablet Documented by: Magnesium Hydroxide (Milk Of Magnesia) 30 ml PO DAILY PRN PRN Reason: Constipation Midodrine (Proamatine) 5 mg PO TuThSa [facility] Last Admin: 09/21/19 10:07 Dose: 5 mg Documented by: Montelukast Sodium (Singulair) 10 mg PO DAILY [facility] Last Admin: 09/22/19 10:21 Dose: 10 mg Documented by: Multivitamins ([facility]itamin) [facility] Last Admin: 09/22/19 07:51 Dose: 1 tablet Documented by: Nutritional Formula (Lactose Free) (Glucerna Shake) 120 ml PO TIDCM [facility] Last Admin: 09/22/19 11:27 Dose: 120 ml Documented by: Ondansetron HCl (Zofran) 4 mg IV Q8H PRN PRN PRN Reason: NAUSEA/VOMITING Pantoprazole Sodium (Protonix) 20 mg PO DAILY [facility] Last Admin: 09/22/19 10:19 Dose: 20 mg Documented by: Prednisone () [facility] Last Admin: 09/22/19 07:51 Dose: 30 mg Documented by: Pregabalin (Lyrica) 150 mg PO Q12 [facility] Last Admin: 09/22/19 10:23 Dose: 150 mg Documented by: Senna/Docusate Sodium (Senokot-S, Leti-Colace) 2 tablet PO BID [facility] Last Admin: 09/22/19 10:19 Dose: Not Given Documented by: Sertraline HCl (Zoloft) 125 mg PO DAILY [facility] Last Admin: 09/22/19 10:20 Dose: 125 mg Documented by: Sevelamer Carbonate (Renvela) 2,400 mg PO TIDCM [facility] Last Admin: 09/22/19 11:27 Dose: 2,400 mg Documented by: Sodium Chloride () 10 - 40 ml IV UD PRN PRN Reason: SALINE FLUSH Last Admin: 09/22/19 02:50 Dose: 10 ml Documented by: Sodium Hypochlorite (Dakins Solution 0.25% (1/2 Strength)) 1 applic TOPICAL BID [facility]; Protocol Last Admin: 09/22/19 10:22 Dose: 1 applicatio Documented by: Addendum: Dr. Frankel I personally examined the patient and reviewed the chart. I agree with the above. 59-year-old female with end-stage renal disease secondary to diabetes and chronic inflammatory demyelinating polyneuropathy presents with fever and confusion. The fever was felt to be secondary to possible left lower extremity cellulitis as well as a wound infection on her abdomen. Appreciate nephrology assistance and managing her dialysis as well as surgery for this with the wound. She is on dialysis which we will continue. She is also on Eliquis and she is on that twice a day and says that she has been taking the appropriate dose every day therefore the suspicion for DVT is extremely low. Because of the coronavirus we will therefore cancel her duplex ultrasound of her left lower extremity. We will continue to monitor, she did also appear to have a potential UTI based on purulent drainage when a Vargas was placed. Urine culture with Klebsiella and lactobacillus, the wound cultures growing a Proteus as well as Klebsiella. We will transition to Ancef and discontinue vancomycin and Zosyn. Can likely be narrowed to p.o. Augmentin on discharge, which will have to happen on Monday or Monday she needs pre-CERT to go back to her long term. Inpatient E&M: [id number] [facility] L2
[2019-09-22 11:35] LABS: Bedside Glucose 190 mg/dL (70-110)
[2019-09-22] MEDS: Cefazolin 1 GM/50 ML BAG IV ×2 (13:45→21:27)
[2019-09-22] MEDS: Insulin Lispro 100 UNIT/ML INSULN.PEN 20 UNIT SC (18:05)
[2019-09-22 18:11] LABS: Bedside Glucose 476 mg/dL (70-110)
[2019-09-22] MEDS: Atorvastatin Calcium 20 MG Tablet PO (21:26)
[2019-09-22] MEDS: Insulin Lispro 100 UNIT/ML INSULN.PEN 7 UNIT SC (21:29)
[2019-09-22 22:41] LABS: Bedside Glucose 361 mg/dL (70-110)
[2019-09-23 02:55] VITALS: BP 133/68; PULSE 77; RESP 18; TEMP 36.4; O2SAT 97
[2019-09-23 03:33] VITALS: PULSE 76
[2019-09-23] MEDS: 0.9% Saline Lock 10 ML Syringe IV (06:10)
[2019-09-23] MEDS: Cefazolin 1 GM/50 ML BAG IV (06:10)
[2019-09-23] MEDS: Menthol/Lanolin/Calamine/Znox 113 GM Tube 1 APPLIC TOPICAL (06:10)
[2019-09-23 06:37] VITALS: PULSE 77
[2019-09-23] MEDS: DAKIN'S SOL HALF STRENGTH (=0.25%) 1 APPLIC TOPICAL (07:54)
[2019-09-23] MEDS: Insulin Lispro 100 UNIT/ML INSULN.PEN SC ×2 (07:55→11:28)
[2019-09-23] MEDS: Insulin Lispro 100 UNIT/ML INSULN.PEN 15 UNIT SC (07:55)
[2019-09-23] MEDS: predniSONE 10 MG Tablet 30 MG PO (07:57)
[2019-09-23] MEDS: Multivitamins,Therapeutic Tablet 1 TABLET PO (07:57)
[2019-09-23] MEDS: SEVELAMER CARBONATE 800 MG TABLET 2400 MG PO ×2 (07:57→11:28)
[2019-09-23] MEDS: Glucerna Shake 120 ML LIQUID PO ×2 (07:57→11:28)
[2019-09-23 08:06] LABS: Bedside Glucose 220 mg/dL (70-110)
--- NOTE | 2019-09-23 08:56 | CASEMGMT ---
Addendum entered by Nadja Castro 09/23/19 09:31: JOLIE received a call from Anjali at [facility] and they have approval for patient. JOLIE notified physician. Nadja MADRID Original Note: JOLIE faxed updates to [facility]. Await pre-cert to return to [facility]. Nadja GARCIA MSW
[2019-09-23 09:10] VITALS: BP 128/66; PULSE 76; RESP 18; TEMP 36.7; O2SAT 96
[2019-09-23] MEDS: Montelukast 10 MG Tablet PO (09:13)
[2019-09-23] MEDS: Sertraline 50 MG Tablet 125 MG PO (09:13)
[2019-09-23] MEDS: Senna/Docusate Sodium 1 Tablet 2 TABLET PO (09:13)
[2019-09-23] MEDS: Docusate Sodium 100 MG Capsule PO (09:14)
[2019-09-23] MEDS: Pantoprazole Sodium 20 MG Tablet PO (09:14)
[2019-09-23] MEDS: APIXABAN 5 MG TABLET PO (09:14)
[2019-09-23] MEDS: Pregabalin 75 MG Capsule 150 MG PO (09:17)
--- NOTE | 2019-09-23 10:52 | PCM.EXTCARCO ---
- Diet 09/19/19 14:39 Diet: Cardiac: Calorie-Controlled Dietary Modifications:: Low Phosphorous Diet Low Potassium Restriction Is pt able to select menu?: Yes Diet Comments: Low Sodium How many daily calories?: 1999 calorie - Routine Orders/Code Status Suppository Type: Dulcolax 10mg Suppository Frequency: Daily PRN Routine Lab Work: CBC - 5 days, BMP - 3 days - Wound(s) LOWER ABD Wound Type: nonhealing surgical wound Dressing Change: Dakins moistened gauze Left Buttock Wound Type: Skin Tear - Therapies Physical Therapy: Eval and Treat Occupational Therapy: Eval and Treat - Problem/Diagnosis (1) Severe sepsis Status: Acute Current Visit: Yes (2) Abdominal panniculus, symptomatic Status: Chronic Current Visit: No (3) Anxiety and depression Status: Chronic Current Visit: No (4) CIDP (chronic inflammatory demyelinating polyneuropathy) Status: Chronic Current Visit: No (5) Calciphylaxis Status: Chronic Current Visit: No (6) Chronic diastolic CHF (congestive heart failure) Status: Chronic Current Visit: No (7) Chronic kidney disease Status: Chronic Current Visit: No (8) DM2 (diabetes mellitus, type 2) Status: Chronic Current Visit: No (9) ESRD (end stage renal disease) Status: Chronic Current Visit: No (10) HTN (hypertension) Status: Chronic Current Visit: No (11) Hyperlipidemia Status: Chronic Current Visit: No (12) Morbid obesity Status: Chronic Current Visit: No (13) Type 2 diabetes mellitus with other skin ulcer Status: Chronic Comment: nonhealing infected diabetic ulcerated abscesses right lateral abdominal wall Current Visit: No (14) Wound, open, abdominal wall, anterior Status: Chronic Current Visit: No - Allergies/Procedures Done in Hospital Allergies/Adverse Reactions: Allergies latex Allergy (Verified 07/01/19 11:44) Hives Sulfa (Sulfonamide Antibiotics) Allergy (Verified 07/01/19 11:44) Rash codeine Adverse Reaction (Verified 07/01/19 11:44) Confusion Procedures: None - Type of Care/Length of Stay Estimated LOS: Convalescent Care Less Than 30 days Type of Care Needed: Skilled Rehab Potential: Fair Prognosis: Fair - Additional Orders/Day of Discharge Day of Discharge: 09/23/19 - Dietary and Speech Recommendations Dietitian Recommendations/Changes: Will provide pt Cardiac: 2000 calorie/ low K+/ low phos/ low Na+. Fluid restriction as medically indicated. Will discontinue renal diet restriction as this limits protein per day & pt requires additional protein for wound healing & dialysis. Rec 1 packet of Fernando BID for wound healing--order from pharmacy. - Follow Up Care Primary Care Physician: Marcela Kerr MD [Primary Care Provider] - Please follow up with your Primary Care Physician in: 2 weeks Please Follow Up With: Terrence Salamanca MD When: 1 week Please Follow Up With: Jillian Lew, DO - dialysis When: as directed
--- NOTE | 2019-09-23 11:28 | CASEMGMT ---
Addendum entered by Nadja Castro 09/23/19 11:48: SW spoke with patient and she already notified her . Nadja MADRID Original Note: Patient is ready for discharge to [facility]. SW faxed orders to [facility]. Called [facility] and arranged for patient to get picked up at 2p via cot. SW notified RN, dental secretary, and viscose cellar charge hand. JOLIE will check with patient to see if she would like to call family. Plan: d/c back to [facility] under skilled level of care. [facility] transported via cot. Nadja MADRID
[2019-09-23 11:40] LABS: Bedside Glucose 296 mg/dL (70-110)
--- NOTE | 2019-09-23 11:54 | PCM.PN.REN ---
Patient Problems: Active and Suspected Problems (Last Reviewed 09/19/19 @ 01:[address] Eren Robledo MD) Severe sepsis (Acute) Subjective: feels better, leukocytosis improved with antibiotics - Physical Exam Vitals/I&O's: Vital Signs Temp Pulse Resp BP Pulse Ox 98.0 F 76 18 128/66 H 96 09/23/19 09:10 09/23/19 09:10 09/23/19 09:10 09/23/19 09:10 09/23/19 09:10 Oxygen Flow Rate (L/min) 2 Oxygen Delivery Method Room Air Weight: 114.5 kg Body Mass Index (BMI) 45.5 Intake and Output for Last 24 Hours 09/21/19 09/22/19 09/23/19 23:59 23:59 23:59 Intake Total 979.00 / 979.00 262.75 / 262.75 390 / 390 Output Total 6003 / 6003 Balance -5024.00 / -5024.00 262.75 / 262.75 390 / 390 General: Alert, Oriented x3 Lungs: Clear to auscultation Abdomen: Obese Extremities: Edema Skin: Ulcer/ Wound - chronic abdominal wound, - - breakdown left lateral leg Psych/Mental Status: Normal Affect, Appropriate Microbiology Past 72 Hours 09/18/19 00:35 Urine Catheter - Catheter Urine Culture - Final Klebsiella pneumoniae sp pneum Presumptive Lactobacillus sp. 09/19/19 05:45 Wound - Abdominal Gram Stain - Final 09/19/19 05:45 Wound - Abdominal Wound Culture - Final Proteus mirabilis Klebsiella pneumoniae sp pneum 09/19/19 05:45 Wound - Abdominal Anaerobic Culture - Final No anaerobic bacteria isolated. 09/19/19 13:50 Blood Culture (Wb) - Dialysis/Fistula Blood Culture - Preliminary No growth in 48 hours. 09/18/19 23:05 Blood Culture (Wb) - Anticubital Left Blood Culture - Preliminary No growth in 48 hours. 09/18/19 23:20 Blood Culture (Wb) - Anticubital Right Blood Culture - Preliminary No growth in 48 hours. Laboratory Results 09/22/19 17:39: POC Glucose 476 H* 09/22/19 21:03: POC Glucose 361 H 09/23/19 07:43: POC Glucose 220 H 09/23/19 11:24: POC Glucose 296 H Current Medications Acetaminophen (Tylenol) 650 mg PO Q6H PRN PRN PRN Reason: Pain Score 1-10/Temp > 100.7 F Hydrocodone Bitart/Acetaminophen (Nelson 5mg-325mg) 1 - 2 tablet PO Q6H PRN PRN Reason: pain (4-10/10) Apixaban (Eliquis) 5 mg PO BID [facility] Last Admin: 09/23/19 09:14 Dose: 5 mg Documented by: Atorvastatin Calcium (Lipitor) 20 mg PO QHS [facility] Last Admin: 09/22/19 21:26 Dose: 20 mg Documented by: Bisacodyl (Dulcolax) 10 mg RECTAL DAILY PRN PRN PRN Reason: Constipation Calamine/Phenol (Calmoseptine Ointment) 1 applic TOPICAL TID [facility] Last Admin: 09/23/19 06:10 Dose: 1 applicatio Documented by: Dextrose (D50w Syringe) 0 gm IV X1 PRN; Protocol PRN Reason: Hypoglycemia Docusate Sodium (Colace) 100 mg PO DAILY [facility] Last Admin: 09/23/19 09:14 Dose: 100 mg Documented by: Glucagon () 1 mg IM .X1 PRN PRN Reason: Hypoglycemia Heparin Sodium (Porcine) () 0 - 10,000 units IV PRN PRN PRN Reason: FOR DIALYSIS CATH USE ONLY Last Admin: 09/21/19 13:10 Dose: 7,000 units Documented by: Sodium Chloride () 250 mls @ 15 mls/hr IV .[id number] PRN PRN Reason: Saline Flush Last Infusion: 09/22/19 02:49 Dose: 0 mls/hr Documented by: Cefazolin Sodium () 1 gm in 50 mls @ 100 mls/hr IV Q8 [facility] Last Infusion: 09/23/19 07:38 Dose: Infused Documented by: Insulin Glargine (Lantus (Bkc)) 15 units SC QHS [facility] Last Admin: 09/22/19 21:28 Dose: 15 u Documented by: Insulin Human Lispro (Humalog Kwikpen (Bkc)) 0 unit SC ACHS [facility]; Protocol Last Admin: 09/23/19 11:28 Dose: 4 units Documented by: Insulin Human Lispro (Humalog Kwikpen (Bkc)) 7 unit SC QHS [facility] Last Admin: 09/22/19 21:29 Dose: 7 u Documented by: Insulin Human Lispro (Humalog Kwikpen (Bkc)) 15 unit SC BREAKFAST [facility] Last Admin: 09/23/19 07:55 Dose: 15 units Documented by: Insulin Human Lispro (Humalog Kwikpen (Bkc)) 20 unit SC DINNER [facility] Last Admin: 09/22/19 18:05 Dose: 20 u Documented by: Lactobacillus Acidophilus (Acidophilus) 1 tablet PO TID [facility] Last Admin: 09/23/19 06:10 Dose: 1 tablet Documented by: Magnesium Hydroxide (Milk Of Magnesia) 30 ml PO DAILY PRN PRN Reason: Constipation Midodrine (Proamatine) 5 mg PO TuThSa [facility] Last Admin: 09/21/19 10:07 Dose: 5 mg Documented by: Montelukast Sodium (Singulair) 10 mg PO DAILY [facility] Last Admin: 09/23/19 09:13 Dose: 10 mg Documented by: Multivitamins (Multivitamin) 1 tablet PO DAILYCM [facility] Last Admin: 09/23/19 07:57 Dose: 1 tablet Documented by: Nutritional Formula (Lactose Free) (Glucerna Shake) 120 ml PO TIDCM [facility] Last Admin: 09/23/19 11:28 Dose: 120 ml Documented by: Ondansetron HCl (Zofran) 4 mg IV Q8H PRN PRN PRN Reason: NAUSEA/VOMITING Pantoprazole Sodium (Protonix) 20 mg PO DAILY [facility] Last Admin: 09/23/19 09:14 Dose: 20 mg Documented by: Prednisone () 30 mg PO DAILYCM [facility] Last Admin: 09/23/19 07:57 Dose: 30 mg Documented by: Pregabalin (Lyrica) 150 mg PO Q12 [facility] Last Admin: 09/23/19 09:17 Dose: 150 mg Documented by: Senna/Docusate Sodium (Senokot-S, Leti-Colace) 2 tablet PO BID [facility] Last Admin: 09/23/19 09:13 Dose: 2 tablet Documented by: Sertraline HCl (Zoloft) 125 mg PO DAILY [facility] Last Admin: 09/23/19 09:13 Dose: 125 mg Documented by: Sevelamer Carbonate (Renvela) 2,400 mg PO TIDCM [facility] Last Admin: 09/23/19 11:28 Dose: 2,400 mg Documented by: Sodium Chloride () 10 - 40 ml IV UD PRN PRN Reason: SALINE FLUSH Last Admin: 09/23/19 06:10 Dose: 10 ml Documented by: Sodium Hypochlorite (Dakins Solution 0.25% (1/2 Strength)) 1 applic TOPICAL BID [facility]; Protocol Last Admin: 09/23/19 07:54 Dose: 1 applicatio Documented by: Medical Necessity - Tobacco Use Smoking Status: Never smoker Tobacco Use: Non-smoker Assessment/Plan All Active Problems (Last Reviewed 09/19/19 @ 01:[address] Eren Robledo MD) Severe sepsis (Acute) Necrotizing soft tissue infection (Resolved) 1 ESRD HD Tues, Th, Sat. 2 Fever with leukocytosis improved. Blood cx no growth so far. keflex on discharge per primary servuce 3. Chronic wounds abdomen LLE Dr Jadyn loomis, dc on po antibx 4. Anemia epo on dialysis 5. Morbid obesity
--- NOTE | 2019-09-23 12:52 | NURSING ---
This RN called and gave report to DAXA Serrano at [facility]
--- NOTE | 2019-09-23 13:01 | PCM.DC.SUM ---
Discharge Date and Diagnosis - Problem List Patient Problems: Active and Suspected Problems (Last Reviewed 09/19/19 @ 01:[address] Eren Robledo MD) Severe sepsis (Acute) Date of Admission: 09/19/19 Date of Discharge: 09/23/19 - Primary Discharge Diagnosis Active and Suspected Problems (Last Reviewed 09/19/19 @ 01:[address] Eren Robledo MD) Severe sepsis (Acute) 2/2 recurrent abdominal wound infection and UTI, Klebsiella and Proteus ESRD CIDP DMt2 GERD Anx/Depression - Secondary Discharge Diagnosis Chronic Problems (Last Reviewed 09/19/19 @ 01:[address] 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) nonhealing infected diabetic ulcerated abscesses right lateral abdominal wall Wound, open, abdominal wall, anterior (Chronic) Anxiety and depression (Chronic) ESRD (end stage renal disease) (Chronic) Morbid obesity (Chronic) Chronic diastolic CHF (congestive heart failure) (Chronic) 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 CT/Abdomen/Pelvis without Cont IMPRESSION: Stable examination demonstrating increased density in the deep right lateral abdominal subcutaneous tissues. Consultations 09/19/19 01:10 Consult: Onc/Wound/technology applications consultant Routine Comment: Reason for Consult:: Abdominal wound Plastics - [place] Operations: None, - Procedures: None Summary of Care Provided: Hospital course: The patient is a 59 year old F with pmhx of a large abdominal panniculitis with prior surgical intervention, open healing, also with a hx of CIDP with inability to ambulate and group home bound, hx ESRD on HD with Dr. Vipin, DMt2 with morbid obesity, who presented to the ER with c/o fever and increased abdominal irriation. She was found to have severe sepsis with tachycardia, leukocytosis, elevated INR, pus in the abdominal wound, and also purulent urine. She was started on vancomycin and zosyn as she has a hx of MRSA infection in the wound. Cultures were taken from both sites. Wound care and plastics were consulted as Dr. Salamanca has seen her in the past. CT was obtained to further evaluate with results as above notably for increased density in the deep right lateral abdominal subq tissues. Plastics did not feel that surgical intervention was required at this time. Cultures showed Klebsiella and Proteus susceptible to ancef, abx were adjusted accordingly. She was discharged back to SNF in stable condition and will need to complete a total of 14 days of therapy with Keflex, and ongoing daily wound care with dressing changes. She will need to follow up with Dr. Salamanca in the wound center a week from today. Follow up with Dr. Lew as directed for ongoing HD. She should also follow up with her PCP in 1-2 weeks. This patient was seen by Sergio Sutherland PA-C under the supervision of Doctor Martinez. [] Patient Problems: Active and Suspected Problems (Last Reviewed 09/19/19 @ 01:[address] Eren Robledo MD) Severe sepsis (Acute) - Physical Exam Vitals/I&O's: Vital Signs Temp Pulse Resp BP Pulse Ox 98.0 F 76 18 128/66 H 96 09/23/19 09:10 09/23/19 09:10 09/23/19 09:10 09/23/19 09:10 09/23/19 09:10 Oxygen Flow Rate (L/min) 2 Oxygen Delivery Method Room Air Weight: 252 lb 6.868 oz Body Mass Index (BMI) 45.5 Intake and Output for Last 24 Hours 09/21/19 09/22/19 09/23/19 23:59 23:59 23:59 Intake Total 979.00 / 979.00 262.75 / 262.75 390 / 390 Output Total 6003 / 6003 Balance -5024.00 / -5024.00 262.75 / 262.75 390 / 390 General: Alert, Oriented x3, Cooperative HEENT: Atraumatic, PERRLA, EOMI, Normocephalic Neck: Supple, No JVD, Negative Carotid Bruits Lungs: Clear to auscultation, Normal air movement Cardiovascular: Regular rate, No murmurs Abdomen: Bowel Sounds Present, Soft, Non Tender, Obese Extremities: No edema, Capillary Refill Less than 3 Seconds Skin: No rashes, No breakdown, - - abd wounds dressed appropriately. Musculoskeletal: No Tenderness to Palpation of Joints or Extremities Neurological: Cranial nerves II-XII grossly intact Psych/Mental Status: Normal Affect, Appropriate Microbiology Past 72 Hours 09/18/19 00:35 Urine Catheter - Catheter Urine Culture - Final Klebsiella pneumoniae sp pneum Presumptive Lactobacillus sp. 09/19/19 05:45 Wound - Abdominal Gram Stain - Final 09/19/19 05:45 Wound - Abdominal Wound Culture - Final Proteus mirabilis Klebsiella pneumoniae sp pneum 09/19/19 05:45 Wound - Abdominal Anaerobic Culture - Final No anaerobic bacteria isolated. 09/19/19 13:50 Blood Culture (Wb) - Dialysis/Fistula Blood Culture - Preliminary No growth in 48 hours. 09/18/19 23:05 Blood Culture (Wb) - Anticubital Left Blood Culture - Preliminary No growth in 48 hours. 09/18/19 23:20 Blood Culture (Wb) - Anticubital Right Blood Culture - Preliminary No growth in 48 hours. Laboratory Results 09/22/19 17:39: POC Glucose 476 H* 09/22/19 21:03: POC Glucose 361 H 09/23/19 07:43: POC Glucose 220 H 09/23/19 11:24: POC Glucose 296 H Current Medications Acetaminophen (Tylenol) 650 mg PO Q6H PRN PRN PRN Reason: Pain Score 1-10/Temp > 100.7 F Hydrocodone Bitart/Acetaminophen (Ramsey 5mg-325mg) 1 - 2 tablet PO Q6H PRN PRN Reason: pain (4-10/10) Apixaban (Eliquis) 5 mg PO BID [facility] Last Admin: 09/23/19 09:14 Dose: 5 mg Documented by: Atorvastatin Calcium (Lipitor) 20 mg PO QHS [facility] Last Admin: 09/22/19 21:26 Dose: 20 mg Documented by: Bisacodyl (Dulcolax) 10 mg RECTAL DAILY PRN PRN PRN Reason: Constipation Calamine/Phenol (Calmoseptine Ointment) 1 applic TOPICAL TID [facility] Last Admin: 09/23/19 06:10 Dose: 1 applicatio Documented by: Dextrose (D50w Syringe) 0 gm IV X1 PRN; Protocol PRN Reason: Hypoglycemia Docusate Sodium (Colace) 100 mg PO DAILY [facility] Last Admin: 09/23/19 09:14 Dose: 100 mg Documented by: Glucagon () 1 mg IM .X1 PRN PRN Reason: Hypoglycemia Heparin Sodium (Porcine) () 0 - 10,000 units IV PRN PRN PRN Reason: FOR DIALYSIS CATH USE ONLY Last Admin: 09/21/19 13:10 Dose: 7,000 units Documented by: Sodium Chloride () 250 mls @ 15 mls/hr IV .[id number] PRN PRN Reason: Saline Flush Last Infusion: 09/22/19 02:49 Dose: 0 mls/hr Documented by: Cefazolin Sodium () 1 gm in 50 mls @ 100 mls/hr IV Q8 [facility] Last Infusion: 09/23/19 07:38 Dose: Infused Documented by: Insulin Glargine (Lantus (Bkc)) 15 units SC QHS [facility] Last Admin: 09/22/19 21:28 Dose: 15 u Documented by: Insulin Human Lispro (Humalog Kwikpen (Bkc)) 0 unit SC ACHS [facility]; Protocol Last Admin: 09/23/19 11:28 Dose: 4 units Documented by: Insulin Human Lispro (Humalog Kwikpen (Bkc)) 7 unit SC QHS [facility] Last Admin: 09/22/19 21:29 Dose: 7 u Documented by: Insulin Human Lispro (Humalog Kwikpen (Bkc)) 15 unit SC BREAKFAST [facility] Last Admin: 09/23/19 07:55 Dose: 15 units Documented by: Insulin Human Lispro (Humalog Kwikpen (Bkc)) 20 unit SC DINNER [facility] Last Admin: 09/22/19 18:05 Dose: 20 u Documented by: Lactobacillus Acidophilus (Acidophilus) 1 tablet PO TID [facility] Last Admin: 09/23/19 06:10 Dose: 1 tablet Documented by: Magnesium Hydroxide (Milk Of Magnesia) 30 ml PO DAILY PRN PRN Reason: Constipation Midodrine (Proamatine) 5 mg PO TuThSa [facility] Last Admin: 09/21/19 10:07 Dose: 5 mg Documented by: Montelukast Sodium (Singulair) 10 mg PO DAILY [facility] Last Admin: 09/23/19 09:13 Dose: 10 mg Documented by: Multivitamins (Multivitamin) 1 tablet PO DAILYCM [facility] Last Admin: 09/23/19 07:57 Dose: 1 tablet Documented by: Nutritional Formula (Lactose Free) (Glucerna Shake) 120 ml PO TIDCM [facility] Last Admin: 09/23/19 11:28 Dose: 120 ml Documented by: Ondansetron HCl (Zofran) 4 mg IV Q8H PRN PRN PRN Reason: NAUSEA/VOMITING Pantoprazole Sodium (Protonix) 20 mg PO DAILY [facility] Last Admin: 09/23/19 09:14 Dose: 20 mg Documented [facility]: [facility] Admin: 09/23/19 07:57 Dose: 30 mg Documented by: Pregabalin (Lyrica) 150 mg PO Q12 [facility] Last Admin: 09/23/19 09:17 Dose: 150 mg Documented by: Senna/Docusate Sodium (Senokot-S, Leti-Colace) 2 tablet PO BID [facility] Last Admin: 09/23/19 09:13 Dose: 2 tablet Documented by: Sertraline HCl (Zoloft) 125 mg PO DAILY [facility] Last Admin: 09/23/19 09:13 Dose: 125 mg Documented by: Sevelamer Carbonate (Renvela) 2,400 mg PO TIDCM [facility] Last Admin: 09/23/19 11:28 Dose: 2,400 mg Documented by: Sodium Chloride () 10 - 40 ml IV UD PRN PRN Reason: SALINE FLUSH Last Admin: 09/23/19 06:10 Dose: 10 ml Documented by: Sodium Hypochlorite (Dakins Solution 0.25% (1/2 Strength)) 1 applic TOPICAL BID [facility]; Protocol Last Admin: 09/23/19 07:54 Dose: 1 applicatio Documented by: Discharge Diet: Low fat/ Low Cholesterol, 1800 Calorie Control Diet, 2000 mg Sodium Diet Discharge Activity: Return to Normal Activity Home Medications: Medications to take at Discharge Montelukast [Singulair] 10 mg PO DAILY 10/29/13 Sertraline HCl 125 mg PO DAILY 06/14/18 Pantoprazole Sodium [Protonix] 20 mg PO DAILY 06/20/18 Atorvastatin Calcium [Lipitor] 20 mg PO QHS 07/28/18 predniSONE tablet 30 mg PO DAILY 10/04/18 Sevelamer Carbonate [Renvela] 2,400 mg PO TIDCM 01/19/19 multivitamin 1 tab PO DAILY 04/03/19 Insulin Lispro [Admelog Solostar] 7 unit SQ QHS 04/25/19 Pregabalin [Lyrica] 150 mg PO Q12H 04/25/19 Apixaban [Eliquis] 5 mg PO BID #90 tab 05/03/19 Magnesium Hydroxide [Milk Of Magnesia] 30 ml PO DAILY PRN #1 udc 05/03/19 Arginine/Ascorbate Sod/Pedro AC [Arginaid Powder] 1 ea PO BID 05/27/19 Bisacodyl [Dulcolax] 10 mg RECTAL DAILY PRN PRN 05/27/19 Insulin Glargine,Hum.rec.anlog [Basaglar Kwikpen U-100] 70 unit SQ BREAKFAST 05/27/19 Sennosides/Docusate Sodium [Senna Plus 8.6-50 mg Softgel] 2 ea PO BID 05/27/19 Cetyl Alc/Stearyl Alc/Pg/Sls [Cetaphil Cream] 1 applicatio TP DAILY 06/27/19 Docusate Sodium [Colace] 100 mg PO DAILY #20 cap 06/27/19 Lactobacillus Acidophilus [Acidophilus] 1 tab PO TID 06/27/19 SimETHICONE [Mylicon] 160 mg PO TID 06/27/19 Insulin Glargine [Lantus SoloStar Pen] 15 units SUBCUT QHS 09/18/19 Insulin Lispro [Admelog Solostar] 15 unit SQ BREAKFAST 09/18/19 Insulin Lispro [Admelog Solostar] 20 unit SQ DINNER 09/18/19 Midodrine HCl 5 mg PO QODAY 09/18/19 Acetaminophen [Tylenol Tablet] 650 mg PO Q6H PRN PRN tab 09/23/19 Cephalexin [Keflex] 500 mg PO Q12H #20 cap 09/23/19 Glucerna Shake 120 ml PO TIDCM liquid 09/23/19 Hydrocodone/Acetaminophen [Ramsey 5-325 Tablet] 1 ea PO Q6H PRN PRN 3 Days #12 tab 09/23/19 Menthol/Lanolin/Calamine/Znox [Calmoseptine Ointment] 1 applic TOPICAL TID tube 09/23/19 Sodium Hypochlorite [Dakins Solution 0.25% (1/2 Strength)] 1 applic TOPICAL BID bottle 09/23/19 Following Prescrptions Were Given to Patient: Cephalexin [Keflex] 500 mg PO Q12H #20 cap Hydrocodone/Acetaminophen [Ramsey 5-325 Tablet] 1 ea PO Q6H PRN PRN 3 Days #12 tab PRN Reason: Not Specified Prescription Printed Primary Care Physician: Marcela Kerr MD [Primary Care Provider] - Please follow up with your Primary Care Physician in: 2 weeks Please Follow Up With: Terrence Salamanca MD When: 1 week Please Follow Up With: Jillian Lew DO - dialysis When: as directed Medical Necessity - Tobacco Use Smoking Status: Never smoker Tobacco Use: Non-smoker Meaningful Use Info Meaningful Use Diagnoses (Choose all that apply): None applicable
== END 2019-09-23 13:54 | disposition skilled nursing facility (03) | DRG 871 ==
LOC: ED 23:57 → PCU 09-19 00:53
PROVIDERS: Family Medicine; Internal Medicine Nephrology; Physician Assistant; Surgery; Admitting Provider Hospitalist; Emergency Provider Emergency Medicine; PCP Internal Medicine Geriatric Medicine; Visit Provider Internal Medicine
DX: A41.9 Sepsis, unspecified organism (principal); N18.6 End stage renal disease; I13.2 Hypertensive heart and chronic kidney disease with heart failure and with stage 5 chronic kidney disease, or end stage renal disease; L02.211 Cutaneous abscess of abdominal wall; G61.81 Chronic inflammatory demyelinating polyneuritis; I50.32 Chronic diastolic (congestive) heart failure; Z68.42 Body mass index [BMI] 45.0-49.9, adult; L03.116 Cellulitis of left lower limb; N39.0 Urinary tract infection, site not specified; R65.20 Severe sepsis without septic shock; I48.91 Unspecified atrial fibrillation; E87.5 Hyperkalemia; E11.622 Type 2 diabetes mellitus with other skin ulcer; L98.492 Non-pressure chronic ulcer of skin of other sites with fat layer exposed; F32.9 Major depressive disorder, single episode, unspecified; F41.9 Anxiety disorder, unspecified; E66.01 Morbid (severe) obesity due to excess calories; E78.5 Hyperlipidemia, unspecified; E11.22 Type 2 diabetes mellitus with diabetic chronic kidney disease; K21.9 Gastro-esophageal reflux disease without esophagitis; D64.9 Anemia, unspecified; Z99.2 Dependence on renal dialysis; Z86.718 Personal history of other venous thrombosis and embolism; M79.3 Panniculitis, unspecified; E11.649 Type 2 diabetes mellitus with hypoglycemia without coma; Z91.11 Patient's noncompliance with dietary regimen; G83.9 Paralytic syndrome, unspecified; E83.39 Other disorders of phosphorus metabolism; L30.4 Erythema intertrigo; Z86.14 Personal history of Methicillin resistant Staphylococcus aureus infection; B96.1 Klebsiella pneumoniae [K. pneumoniae] as the cause of diseases classified elsewhere; B96.4 Proteus (mirabilis) (morganii) as the cause of diseases classified elsewhere
CPT/HCPCS: 36415; 36600; 51702; 71045; 74176; 80048; 80053; 80069; 80202; 82803; 82962; 83036; 83605; 85025; 85610; 85730; 87040; 87070; 87075; 87077; 87086; 87088; 87186; 87205; 87640; 90937; 93005; 97110; 97162; 97167; 97530; 97802; 99285; J7030; J7050; A4216; G0257; Q5106

== ENCOUNTER 2019-11-03 13:41 | Inpatient (IN) | payer OTHER, MEDICAID, SELFPAY ==
[2019-10-23 09:04] VITALS: BMI 45.5
[2019-11-03] VITALS (11 sets, daily range): BP systolic 78–135; BP diastolic 53–83; PULSE 82–122; RESP 14–22; TEMP 36.6–37.7; O2SAT 93–98; BMI 44.2; BMI 42.6; BMI 44.3
--- NOTE | 2019-11-03 14:32 | RAD_ITS ---
STUDY: X-RAY CHEST REASON FOR EXAM: Female, 59 years old. ALT LOC, DROWSY. HAD PERIOD OF APNEA AND COMPLETE UNRESPONSIVE IN EMS [place]. NOW BACK TO PAINFUL [place]. DIALYSIS PT. 2 WOUNDS. FROM [facility]. -- BEST IMAGES POSSIBLE TECHNIQUE: Single AP portable view of the chest. COMPARISON: 18 September 2019 FINDINGS: Central line tip overlies the distal SVC. Mild low lung volume and interstitial crowding/atelectasis with no distinct focal airspace disease. There is no demonstrated pleural abnormality. Normal size heart. Normal mediastinum and adam. Normal visualized pulmonary arteries. Normal visualized aortic arch and descending thoracic aorta. Normal visualized thoracic spine. Normal visualized ribs, clavicles, and shoulders. There is no demonstrated abnormality of the visualized soft tissue structures of the upper abdomen. RAD/Chest 1 View (Portable) IMPRESSION: Overall similar appearance compared to prior exam with no evidence of new focal airspace disease. Electronically Signed: Bernardo Crystal DO at 15:32 EDT , Service support ,
--- NOTE | 2019-11-03 14:32 | CT_ITS ---
STUDY: CT BRAIN WITHOUT CONTRAST REASON FOR EXAM: Female, 59 years old. ALTERED MENTAL STATUS RADIATION DOSAGE (If Supplied By Facility): CTDIvol = ( 44.99 ) mGy, DLP = ( 779.24 ) mGycm TECHNIQUE: Transaxial CT imaging of the brain was performed without administration of intravenous contrast material. Individualized dose optimization techniques were used for this CT. COMPARISON: No relevant priors. FINDINGS: Normal soft tissue structures. Normal calvarium. Normal size ventricles and extra-axial spaces for the patient''s age. Normal white matter tracts of the cerebral hemispheres. Normal basal ganglia and thalami. Normal brainstem. Normal cerebellum. There is no intracranial hemorrhage. There are no findings of an acute ischemic infarction. Normal visualized paranasal sinuses. CT/Brain/Head without Contrast IMPRESSION: No evidence of acute intracranial bleed, mass or ischemia. Electronically Signed: Bernardo Crystal DO at 15:29 EDT , Service support ,
--- NOTE | 2019-11-03 14:33 | EKG12_ITS ---
Test Reason : Blood Pressure : / mmHG Vent. Rate : 097 BPM Atrial Rate : 097 BPM P-R Int : 148 ms QRS Dur : 084 ms QT Int : 364 ms P-R-T Axes : 033 -07 091 degrees QTc Int : 462 ms Normal sinus rhythm Nonspecific T wave abnormality Prolonged QT Abnormal ECG Confirmed by KELLEY KRUSE, MASOOD ([id number]), commissioning editor DONNA PENA ([id number]) on 11/04/2019 1:06:23 PM Referred By: RAMO Confirmed By:MASOOD BENSON MD
--- NOTE | 2019-11-03 14:36 | ED.DCSUM_ITS ---
- ER Visit Summary Date of Service: 11/03/19 Chief Complaint: Fever History of Present Illness: The patient is a 59 F who presents with a fever that was noticed today. Patient lives in an extended care facility and had her temperature checked this morning. Patient stated was noted to be high. Patient does not know the exact temperature. Patient states she has been feeling fatigued and has been forgetting things. Patient states nothing makes it better or worse. Patient states she has a wound on her right lower abdomen and left leg. Patient has a history of dialysis and does not make urine. Patient admits to a mild cough but denies any sputum production. Patient denies any chest pain. Physical Examination: Vital signs are stable except for mild tachycardia of 105. Patient is afebrile here with a temperature of 99.6. Patient is in no acute distress. Oral mucosa is pink and moist. Neck is supple. Trachea is midline. There is no JVD. Heart was regular rate and rhythm. Lungs are diminished bilaterally. There is adequate respiratory effort. Abdomen is soft. Bowel sounds are normal. There is no tenderness. Skin is warm and dry. There are wounds on her left leg and right lower abdomen that have occlusive dressings. There is no erythema surrounding the dressings. Cranial nerves II through XII are intact. There are no focal motor or sensory deficits noted. Patient is alert and oriented x3. Test Results: CBC shows a leukocytosis of 17.1. Platelets were 125. Comprehensive metabolic profile showed a BUN of 32 and a creatinine of 4.34. These are chronic for the patient. Troponin was indeterminate at 0.051. Lactate was 2.4. RSV, strep, and influenza swabs were obtained were all normal. Chest x-ray shows chronic changes but no acute cardiopulmonary process. This was interpreted by the radiologist and reviewed by myself. CT scan of the brain was obtained. There is no acute intracranial abnormality. This was also interpreted by the radiologist and reviewed by myself. Emergency Department Course and Treatment: Blood cultures were obtained. Patient was started on Zosyn and vancomycin. Case was discussed with the hospitalist. He recommended giving the patient a liter of IV fluids. This was ordered. Patient will be admitted to PCU. Patient understood and was agreeable with the plan. All questions were answered. Disposition: Admit to hospital Impression: 1. Severe sepsis 2. Chronic wounds to left leg and right lower abdomen This note was generated with Dragon dictation software. It may contain incorrect words, spelling, and punctuation that were not noted in review of the chart prior to signing ED Disposition - Plan for ED Patient: Disposition: Acute Care Hospital [facility] Diagnosis: Severe sepsis, Skin ulcer of abdominal wall with fat layer exposed
[2019-11-03 14:43] LABS: Absolute Lymphocyte Count 0.82 X10^3/uL (0.83-4.51); Absolute Neutrophil Count 14.7 X10^3/uL (2.0-7.7); Basophil# 0.04 X10^3/uL; Basophil% 0.2 % (0-1); Hematocrit 36.8 % (37-47); Lymphocyte # 0.82 X10^3/ul (4.0); Lymphocyte % 4.8 % (19-41); Mean Corp Hgb Conc 32.6 g/dL (32-36); Mean Corpuscular Hgb 30.5 pg (27.0-32.0); Mean Corpuscular Volume 93.4 fL (81-99); Mean Platelet Vol. 11.8 fl (6.2-12.0); Monocyte# 0.86 X10^3/uL; NRBC Flagged by Analyzer 0.7 % (0-5); Neutrophil # 14.69 X10^3/uL (2.7-7.7); Neutrophil % 85.9 % (47-70); Platelet Count 125 K/mm3 (150-450); RBC Distribution Width CV 18.9 % (11.6-14.6); RBC Distribution Width SD 64.2 fl (35.1-43.9); Red Blood Count 3.94 M/mm3 (4.2-5.4); White Blood Count 17.1 K/mm3 (4.4-11.0)
[2019-11-03 14:56] LABS: Bedside Glucose 158 mg/dL (70-110)
[2019-11-03 14:57] LABS: ALB/GLOB Ratio 0.8 RATIO (0.9-2.4); AST(SGOT) 17 U/L (15-37); Alanine Aminotransfer ALT/SGPT 31 U/L (13-56); Albumin, Serum 2.9 g/dL (3.2-5.0); Alkaline Phosphatase 119 U/L (45-117); Anion Gap 9 (5-15); BUN 32 mg/dL (7-18); BUN/Creat Ratio 7.4 RATIO (10-20); Chloride 103 mmol/L (98-107); Creatinine, Serum 4.34 mg/dL (0.55-1.02); EST Glomerular Filtration Rate 11 mL/min (>60); Est Glom Filt Rate - Afr Amer 14 mL/min (>60); Estimated Creatinine Clearance 12.35 ml/min; Globulin 3.6 g/dL (2.2-4.2); Glucose 136 mg/dL (74-106); Potassium 4.8 mmol/L (3.5-5.1); Protein, Total 6.5 g/dL (6.4-8.2); Sodium Level 138 mmol/L (136-145)
[2019-11-03 15:11] LABS: Lactic Acid 2.4 mmol/L (0.4-1.9)
[2019-11-03] MEDS: Acetaminophen 500 MG Tablet 1000 MG PO (16:51)
--- NOTE | 2019-11-03 17:13 | HP.PCM_ITS ---
Problem List (1) Essential hypertension Status: Chronic (2) MRSA (methicillin resistant Staphylococcus aureus) Status: Chronic (3) Skin ulcer of abdominal wall with fat layer exposed Status: Chronic (4) Severe sepsis Status: Acute (5) Necrotizing soft tissue infection Status: Chronic (6) Skin necrosis Status: Chronic (7) Calciphylaxis Status: Chronic (8) ESRD on dialysis Status: Chronic (9) Type 2 diabetes mellitus with other skin ulcer Status: Chronic Comment: nonhealing infected diabetic ulcerated abscesses right lateral abdominal wall (10) Anxiety and depression Status: Chronic (11) Chronic diastolic CHF (congestive heart failure) Status: Chronic (12) CIDP (chronic inflammatory demyelinating polyneuropathy) Status: Chronic (13) Hyperlipidemia Status: Chronic Qualifiers: History of Present Illness Date of Admission: 11/03/19 Chief Complaint: Fever. The patient is a 59 year old F with past medical history as mentioned above presented to the emergency room because of fever. [facility] and she was sent into ED for fever. We do not know how high was her tem perature. Patient complained of being weak, tired and fatigued over the last several days. She denied cough or sputum production. She denied sore throat, nasal sinus congestion. She does have chronic lower abdominal pain secondary to chronic lower abdominal nonhealing infected ulcer with recurrence and she mentioned that she has no significant pain apart when she start moves. She mentioned that she is supposed to go for closure of her lower abdominal wound around the beginning of coronavirus pandemic by Dr. Salamanca but that was delayed because of the pandemic. She denied chest pain, shortness of breath. She does not make any urine and she is on dialysis. She will history of ESRD on dialysis on Tuesdays, and Saturdays. Her kidney function is stable and potassium is normal. She will history of type 2 diabetes mellitus and she has been on insulin, blood sugar has been under fair control and her hemoglobin A1c was 7.5% on September,. She has history of chronic inflammatory demyelinating polyneuropathy with bilateral lower extremity weakness and she has been on oral prednisone for a long time. In the emergency department, she had a low-grade fever of 100 Fahrenheit, was tachycardic, blood pressure was stable, pulse ox was 98% on room air. Routine blood work was remarkable for leukocytosis, chronic thrombocytopenia, BUN of 32, creatinine is 4.34. Lactic acid was 2.4. LFT was unremarkable. EKG revealed sinus tachycardia with prolonged QTC, no acute segment changes. Troponin is minimally elevated at 0.051. Chest x-ray showed no acute findings. CT scan brain showed no acute infarct or hemorrhage. She is being admitted for severe sepsis due to recurrent lower/right lateral abdominal wall nonhealing infected diabetic ulcer with abscess secondary to medardo ciphylaxis. Past Medical History Past Medical History (Chronic Problems): Chronic Problems (Last Updated 11/03/19 @ 17:[address] 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) nonhealing infected diabetic ulcerated abscesses right lateral abdominal wall Wound, open, abdominal wall, anterior (Chronic) Anxiety and depression (Chronic) ESRD (end stage renal disease) (Chronic) Morbid obesity (Chronic) Chronic diastolic CHF (congestive heart failure) (Chronic) 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) Hyperlipidemia (Chronic) Chronic kidney disease (Chronic) Obesity (Chronic) DM2 (diabetes mellitus, type 2) (Chronic) Medical History: Medical History (Last Updated 11/03/19 @ 17:[address] Toma Naylor MD) Essential hypertension (Chronic) I10 MRSA (methicillin resistant Staphylococcus aureus) (Chronic) A49.02 Skin ulcer of abdominal wall with fat layer exposed (Chronic) L98.492 Severe sepsis (Acute) A41.9, R65.20 Intertrigo (Chronic) L30.4 abdominal wall skin crease intertrigo Abdominal panniculus, symptomatic (Chronic) E65 Necrotizing soft tissue infection (Chronic) M79.89 Abdominal wall pain in right flank (Chronic) R10.9 Skin necrosis (Chronic) I96 Calciphylaxis (Chronic) E83.59 ESRD on dialysis (Chronic) N18.6, Z99.2 Cutaneous abscess of abdominal wall (Chronic) L02.211 Type 2 diabetes mellitus with other skin ulcer (Chronic) E11.622, L98.499 nonhealing infected diabetic ulcerated abscesses right lateral abdominal wall Wound, open, abdominal wall, anterior (Chronic) S31.109A Anxiety and depression (Chronic) F41.9, F32.9 ESRD (end stage renal disease) (Chronic) N18.6 Morbid obesity (Chronic) E66.01 Chronic diastolic CHF (congestive heart failure) (Chronic) I50.32 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) G61.81 Hyperlipidemia (Chronic) E78.5 Chronic kidney disease (Chronic) N18.9 Obesity (Chronic) E66.9 DM2 (diabetes mellitus, type 2) (Chronic) E11.9 Anemia D64.9 GERD (gastroesophageal reflux disease) K21.9 Problem with dialysis access (Inactive) T82.898A Allergies latex Allergy (Verified 10/23/19 10:58) Hives Sulfa (Sulfonamide Antibiotics) Allergy (Verified 10/23/19 10:58) Rash codeine Adverse Reaction (Verified 10/23/19 10:58) Confusion Home Medications: Ambulatory Orders Medication Instructions Recorded Montelukast [Singulair] 10 mg PO DAILY 10/29/13 Sertraline HCl 125 mg PO DAILY 06/14/18 Pantoprazole Sodium [Protonix] 20 mg PO DAILY 06/20/18 predniSONE tablet 30 mg PO DAILY 10/04/18 Sevelamer Carbonate [Renvela] 2,400 mg PO TIDCM 01/19/19 multivitamin 1 tab PO DAILY 04/03/19 Insulin Lispro [Admelog Solostar] 7 unit SQ QHS 04/25/19 Apixaban [Eliquis] 5 mg PO BID #90 tab 05/03/19 Magnesium Hydroxide [Milk Of 30 ml PO DAILY PRN #1 udc 05/03/19 Magnesia] Arginine/Ascorbate Sod/Pedro AC 1 ea PO BID 05/27/19 [Arginaid Powder] Bisacodyl [Dulcolax] 10 mg RECTAL DAILY PRN PRN 05/27/19 Sennosides/Docusate Sodium [Senna 2 ea PO BID 05/27/19 Plus 8.6-50 mg Softgel] SimETHICONE [Mylicon] 80 mg PO TID 06/27/19 Insulin Lispro [Admelog Solostar] 15 unit SQ BREAKFAST 09/18/19 Insulin Lispro [Admelog Solostar] 28 unit SQ DINNER 09/18/19 Midodrine HCl 5 mg PO TUTHSA 09/18/19 Acetaminophen [Tylenol Tablet] 650 mg PO Q6H PRN PRN tab 09/23/19 Menthol/Lanolin/Calamine/Znox 1 applic TOPICAL TID tube 09/23/19 [Calmoseptine Ointment] Sodium Hypochlorite [Dakins 1 applic TOPICAL BID bottle 09/23/19 Solution 0.25% (1/2 Strength)] Amlodipine Besylate [Norvasc] 2.5 mg PO SUMOWEFR 10/18/19 Insulin Glargine,Hum.rec.anlog 20 unit SUBCUT QHS 10/18/19 [Basaglar Kwikpen U-100] Insulin Lispro [Admelog Solostar] 28 unit SQ LUNCH 10/18/19 Polyethylene Glycol 3350 [Miralax] 17 gm PO QHS 10/18/19 Vit E Acet/Gly/Dimeth/Water 237 ml TP DAILY 10/18/19 [Cetaphil Moisturizing Lotion] atorvastatin 20 mg tablet 20 mg PO QHS 10/23/19 pregabalin 150 mg capsule 150 mg PO TID 10/23/19 sodium phosphates 19 gram-7 118 ml RC ONCE PRN 10/23/19 gram/118 mL enema Activated Charcoal [Charcoal] 200 mg PO PRN PRN 11/03/19 Insulin Glargine [Lantus (BKC)] 78 units SUBCUT DAILY 11/03/19 Multivit-Min/Iron/Folic/Lutein 1 ea PO DAILY 11/03/19 [Centrum Silver Women Tablet] Surgical History: Surgical History (Last Reviewed 10/23/19 @ 11:[address] Jacob Santana MD) History of cholecystectomy Z90.49 History of tubal ligation Z98.51 Surgical History: cholecystectomy, - - Letter tubal ligation, cholecystectomy, right upper extremity fistula placement and eventual ligation, bilateral upper chest dialysis catheters with right now left upper chest in place. Psychiatric History: Anxiety, Depression [employer] History: No pertinent [employer] history Lives: Long Term Smoking Status: Never smoker Alcohol: None Drugs: None - *Family History Maternal Family History: Family History (Last Reviewed 10/23/19 @ 11:[address] Jacob Santana MD) Father Diabetes Mother Heart disease History Items: Cancer, Heart Disease Paternal Family History: Family History (Last Reviewed 10/23/19 @ 11:[address] Jacob Santana MD) Father Diabetes Mother Heart disease History Items: Diabetes, Heart Disease, Hypertension Sibling Family History: Family History (Last Reviewed 10/23/19 @ 11:[address] Jacob Santana MD) Father Diabetes Mother Heart disease History Items: Diabetes Review of Systems Constitutional: Reports: Fever, Weakness, Fatigue. Denies: Anorexia, Chills Eyes: Denies: Blurred vision, Double vision, Drainage, Vision Change HEENT: Denies: Difficulty Hearing, Ear Pain, Eye Pain, Nasal Congestion, Sore Throat Cardiovascular: Denies: Chest Pain, Chest Pressure, Chest Tightness, Heaviness, Light Headedness, Palpitations, Syncope Respiratory: Denies: Cough, Pleuritic Pain, Shortness of Breath, Sputum production, Wheezing Gastrointestinal: Reports: Abdominal Pain. Denies: Constipation, Diarrhea, Nausea, Vomiting Genitourinary: Denies: Dysuria, Frequency, Hematuria Musculoskeletal: Denies: Arm Pain, Back Pain, Foot Pain Skin: Denies: Dryness, Rash Neurological: Denies: Balance problems, Double vision, Change in Speech, Slurred speech, Confusion, Headaches, Incoordination Psychiatric: Reports: Anxiety, Depression Endocrine: Denies: Change in Body Habitus, Polydipsia, Polyuria VTE Information - Inpt Only VTE Present on Admission: No VTE Mechan Device Prophylaxis: SCD's VTE Pharm Prophylaxis ordered?: No Patient Problems: Active and Suspected Problems (Last Updated 11/03/19 @ 17:[address] Toma Naylor MD) Severe sepsis (Acute) - Physical Exam Vitals/I&O's: Vital Signs Temp Pulse Resp BP Pulse Ox 98.4 F 94 22 H 135/83 H 98 11/03/19 16:30 11/03/19 16:30 11/03/19 16:30 11/03/19 16:30 11/03/19 16:30 Oxygen Delivery Method Room Air Weight: 257 lb 15.053 oz Body Mass Index (BMI) 44.2 Finger Stick Blood Glucose 158 General: Alert, Oriented x3, Cooperative, - - Tearful. HEENT: Atraumatic, PERRLA, EOMI, Normocephalic Oral: Moist Mucosa, No Gingival or Mucosal Lesions/ Ulcerations Neck: Supple, No JVD, Negative Carotid Bruits, Trachea Midline, Thyroid Normal Size and Texture Lungs: Clear to auscultation, Normal air movement, No rhonchi, No wheeze, No rales, Diminished Cardiovascular: Regular rate, Regular Rhythm, Normal S1, Normal S2, PMI Normal Abdomen: Bowel Sounds Present, Soft, Non Tender, Non-Distended, No Hepato- splenomegaly, Obese Extremities: No clubbing, No cyanosis, Edema Skin: No rashes, Ulcer/ Wound - Lower abdominal wall: Very large nonhealing ulcer extending across the lower abdomen, stage IV, pulse points, mild erythema. Lymphatic: No Cervical, Supraclavicular, or Inguinal Adenopathy Neurological: Cranial nerves II-XII grossly intact, Neuro grossly intact Psych/Mental Status: Normal Affect, Anxious, Alert and oriented to time, place, person, mood and affect Microbiology Past 72 Hours 11/03/19 14:50 Mucosa - Nasopharyngeal Group A Streptococcus Rapid Screen - Preliminary 11/03/19 14:40 Mucosa - Nasopharyngeal Influenza Types A,B Direct FA (MENA) - Final 11/03/19 14:50 Nasal Secretion Rapid RSV (DFA) - Final Laboratory Results 11/03/19 13:50: WBC 17.1 H, RBC 3.94 L, Hgb 12.0, Hct 36.8 L, MCV 93.4, MCH 30.5, MCHC 32.6, RDW Std Deviation 64.2 H, RDW Coeff of Perico 18.9 H, Plt Count 125 L, MPV 11.8, Immature Gran % (Auto) 4.100 H, Neut % (Auto) 85.9 H, Lymph % (Auto) 4.8 L, [place] % (Auto) 5.0, Eos % (Auto) 0.0, Baso % (Auto) 0.2, Absolute Neuts (auto) 14.7 H, Absolute Lymphs (auto) 0.82 L, Nucleated RBC % 0.7 11/03/19 13:50: Sodium 138, Potassium 4.8, Chloride 103, Carbon Dioxide 26.0, Anion Gap 9, BUN 32 H, Creatinine 4.34 H, Estim Creat Clear Calc 12.35, Est GFR (MDRD) Af Amer 14 L, Est GFR (MDRD) Non-Af 11 L, BUN/Creatinine Ratio 7.4 L, Glucose 136 H, Calcium 10.0, Total Bilirubin 0.50, AST 17, ALT 31, Alkaline Phosphatase 119 H, Troponin I 0.051 H, Total Protein 6.5, Albumin 2.9 L, Globulin 3.6, Albumin/Globulin Ratio 0.8 L 11/03/19 13:50: Lactic Acid 2.4 H* 11/03/19 14:45: POC Glucose 158 H Clinical Impression(s) from Imaging Studies Brain CT 11/03/19 14:32 IMPRESSION: No evidence of acute intracranial bleed, mass or ischemia. Electronically Signed: Bernardo Crystal DO at 15:29 EDT , Service support , Chest X-Ray 11/03/19 14:32 IMPRESSION: Overall similar appearance compared to prior exam with no evidence of new focal airspace disease. Electronically Signed: Bernardo Crystal DO at 15:32 EDT , Service support , Current Medications Sodium Chloride () 250 mls @ 15 mls/hr IV .[id number] PRN PRN Reason: Saline Flush Last Admin: 11/03/19 16:47 Dose: 15 mls/hr Documented by: Vancomycin HCl (Vancomycin) 1,000 mg in 200 mls @ 200 mls/hr IV X1 ONE Stop: 11/03/19 17:59 Sodium Chloride () 1,000 mls @ 1,000 mls/hr IV .Q1H ONE Stop: 11/03/19 18:05 Assessment/Plan All Active Problems (Last Updated 11/03/19 @ 17:[address] 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 #1 recurrent right/lower abdominal wall infected nonhealing diabetic ulcer with abscess/calciphylaxis/severe sepsis: With past history of incision and debridement back on April,. She did have multiple bacteria in the wound culture including Klebsiella pneumoniae, Proteus mirabilis, MRSA and Corynebacterium. She has spike of low-grade fever in the ED, was tachycardic but improved, blood pressure stable, pulse ox and continue on home air. Chest x-ray showed no acute findings. Lactic acid 2.4. Plan: Admit to PCU, cardiac monitoring, IV fluids, repeat lactic acid in 3 hours, start wound culture, blood culture, MRSA wound screen by PCR, start IV vancomycin and Zosyn, IV morphine PRN for pain, OxyIR PRN for pain, Tylenol PRN, IV antiemetics, plastic surgery consult, repeat CBC and BMP tomorrow morning, PT OT evaluation and treatment. #2 abnormal cardiac enzymes: Troponin is minimally elevated at 0.051, likely due to severe sepsis. Patient denied any chest pain. EKG revealed no acute ischemic changes. Plan: Cardiac monitoring, serial cardiac enzymes, 2D echocardiogram. #3 ESRD on hemodialysis: Nephrology consult, continue dialysis on Tuesdays, and Saturdays. #4 type 2 diabetes mellitus: ADA diet, Accu-Cheks, insulin sliding scale, continue home doses of Lantus. #5 chronic inflammatory demyelinating polyneuropathy: Stable, continue prednisone same dose. #6 hypertension: Blood pressure stable, continue Norvasc. #7 history of right leg DVT: We will hold Eliquis for now because patient may go for surgery, will check INR and pro time. #8 anxiety and depression: Continue Zoloft. #9 chronic anemia: Due to anemia of chronic disease. Admission globin is 12 g/dL, stable at baseline. Platelet count is 1 25,000, has been fluctuating in the past. No active bleeding. #10 GERD: Continue PPI. #12 DVT prophylaxis: SCDs. This note was generated with Locaidation software. It may contain incorrect words, spelling, and punctuation that were not noted in checking the note before signing. Inpatient E&M: 89662 Init Hosp L3
--- NOTE | 2019-11-03 17:20 | ED.RN ---
attempted to call pt's daughter Nikole. 1st attempt a male answered and hung up. 2nd attempt no answer and a message that a voicemail box has not been set up. Message left on pt's 's VM that has been admitted.
--- NOTE | 2019-11-03 17:36 | ECHOD_ITS ---
Reason For Study: HTN Procedure This was a 2D Doppler, Color Flow transthoracic echocardiogram. The study was technically difficult. Exam performed portable in patient room. Left Ventricle Normal LV size. Moderate concentric left ventricular hypertrophy. Left ventricular systolic function is normal. Stage 2 diastolic dysfunction. No regional wall motion abnormalities noted. Right Ventricle Normal RV size. Normal systolic function. Atria Normal left atrium. Normal right atrium. Mitral Valve Normal mitral valve. Tricuspid Valve Normal tricuspid valve. Mild (1+) tricuspid valve insufficiency. Pulmonary artery systolic pressure is 30 mmHg. Pulmonic Valve The pulmonic valve is not well visualized. Great Vessels Normal aortic root. The pulmonary artery is normal size. Normal inferior vena cava. Pericardium/Pleural No pericardial effusion. Medication Diluted definity 1ml given slow IV push to enhance endocardial definition. MMode/2D Measurements & Calculations LVIDd: 3.9 cm IVSd: 1.4 cm Ao root diam: 3.7 cm LVIDs: 2.8 cm LVPWd: 1.4 cm RVDd: 3.0 cm FS: 28.8 % LAV(MOD-bp): 41.6 ml LA A4 area: 14.5 cm2 LA dimension(2D): 3.0 cm LAV(MOD-bp) Indexed: 19.1 ml/m2 LAV(MOD-sp2): 47.7 ml LAV(MOD-sp4): 33.6 ml RA A4 area: 11.3 cm2 Doppler Measurements & Calculations MV E max santo: 104.7 cm/sec Lat Peak E' Santo: 6.5 cm/sec Med Peak E' Santo: 5.7 cm/sec MV A max santo: 136.1 cm/sec E/E' lat: 16.0 E/E' med: 18.4 MV E/A: 0.77 MV V2 max: 138.5 cm/sec MV P1/2t max santo: 107.4 cm/sec Ao V2 max: 138.6 cm/sec MV max P.7 mmHg MV P1/2t: 76.6 msec Ao max P.7 mmHg MV V2 mean: 99.8 cm/sec MV dec slope: 410.5 cm/sec2 MV mean P.2 mmHg MVA(P1/2t): 2.9 cm2 MV V2 VTI: 30.5 cm LV V1 max: 100.7 cm/sec PA V2 max: 101.6 cm/sec TR max santo: 253.1 cm/sec LV V1 max P.1 mmHg TR max P.7 mmHg Interpretation Summary Normal LV size. Moderate concentric left ventricular hypertrophy. Left ventricular systolic function is normal. Stage 2 diastolic dysfunction. Mild (1+) tricuspid valve insufficiency. Ordering Physician: Toma Naylor Referring Physician: Marcela Kerr Performed By: Adriana Hampton RDCS
[2019-11-03] MEDS: 0.9% Normal Saline 1,000 ML 1000 ML IV (17:44)
[2019-11-03] MEDS: Vancomycin IV 1,000 MG/200 ML BAG 200 MG IV (17:56)
--- NOTE | 2019-11-03 18:15 | PCM.RX.CS ---
Consult Pharmacy has been consulted to manage selected antiobiotic: Vancomycin Type of Consult: New start Labs: Sodium 138 mmol/L (136-145) 11/03/19 13:50 Potassium 4.8 mmol/L (3.5-5.1) 11/03/19 13:50 Chloride 103 mmol/L (98-107) 11/03/19 13:50 Carbon Dioxide 26.0 mmol/L (21.0-32.0) 11/03/19 13:50 Anion Gap 9 (5-15) 11/03/19 13:50 BUN 32 mg/dL (7-18) H 11/03/19 13:50 Creatinine 4.34 mg/dL (0.55-1.02) H 11/03/19 13:50 Est GFR (MDRD) Af Amer 14 mL/min (>60) L 11/03/19 13:50 Est GFR (MDRD) Non-Af 11 mL/min (>60) L 11/03/19 13:50 BUN/Creatinine Ratio 7.4 RATIO (10-20) L 11/03/19 13:50 Glucose 136 mg/dL (74-106) H 11/03/19 13:50 Microbiology: Microbiology 11/03/19 14:50 Mucosa - Nasopharyngeal Group A Streptococcus Rapid Screen - Preliminary 11/03/19 14:40 Mucosa - Nasopharyngeal Influenza Types A,B Direct FA (MENA) - Final 11/03/19 14:50 Nasal Secretion Rapid RSV (DFA) - Final Weight used for dosin kg Estimated Creatinine Clearance: < 20 Goal Trough: 15-20 mcg/mL Pharmacy Plan for Drug Dosing: Initial dose 1000mg. Per policy, check level with 2nd morning lab and redose at that time. Pharmacy Service will continue to monitor and adjust dosing as required. Follow-Up Labs: Trough Vancomycin - 11/04 @ 0600
[2019-11-03 18:40] LABS: Reflex Lactate? Y
[2019-11-03] MEDS: 0.9% Normal Saline 1,000 ML 100 ML IV (19:30)
[2019-11-03 20:34] LABS: M R Staph aureus DNA By PCR Negative (Negative); Probe Check PASS; Specimen Processing Control PASS; Staph aureus DNA By PCR POSITIVE (Negative)
[2019-11-03 20:59] LABS: International Normalized Ratio 1.6; Prothrombin Time (Protime)PT. 18.9 SECONDS (11.7-14.9)
[2019-11-03 21:14] LABS: Lactic Acid 3.3 mmol/L (0.4-1.9)
[2019-11-03] MEDS: 0.9% Normal Saline 1,000 ML 999 ML IV (22:30)
[2019-11-03] MEDS: Pregabalin 75 MG Capsule 150 MG PO (22:39)
[2019-11-03] MEDS: Atorvastatin Calcium 20 MG Tablet PO (22:40)
[2019-11-03] MEDS: Insulin Lispro 100 UNIT/ML INSULN.PEN SC (22:40)
[2019-11-03 22:51] LABS: Bedside Glucose 310 mg/dL (70-110)
[2019-11-04] VITALS (10 sets, daily range): BP systolic 99–124; BP diastolic 53–80; PULSE 61–121; RESP 18; TEMP 36.6–37.1; O2SAT 95–97
--- NOTE | 2019-11-04 05:55 | EKG12_ITS ---
Test Reason : AM EKG Blood Pressure : / mmHG Vent. Rate : 080 BPM Atrial Rate : 080 BPM P-R Int : 172 ms QRS Dur : 094 ms QT Int : 412 ms P-R-T Axes : 023 -16 067 degrees QTc Int : 475 ms Sinus rhythm with Premature atrial complexes Otherwise normal ECG When compared with ECG of 03-NOV-2019 15:00, MANUAL COMPARISON REQUIRED, DATA IS UNCONFIRMED Confirmed by KELLEY KRUSE, MASOOD ([id number]), avid editor DONNA PENA ([id number]) on 11/05/2019 3:57:03 PM Referred By: RIDGE Confirmed By:MASOOD BENSON MD
[2019-11-04 06:09] LABS: Hemoglobin 10.8 g/dL (12.0-15.0); Mean Corp Hgb Conc 31.8 g/dL (32-36); Mean Corpuscular Hgb 30.5 pg (27.0-32.0); Mean Platelet Vol. 11.4 fl (6.2-12.0); POSITIVE COUNT YES; POSITIVE MORPHOLOGY YES; Platelet Count 121 K/mm3 (150-450); RBC Distribution Width CV 18.4 % (11.6-14.6); RBC Distribution Width SD 64.9 fl (35.1-43.9); Red Blood Count 3.54 M/mm3 (4.2-5.4); White Blood Count 10.5 K/mm3 (4.4-11.0)
[2019-11-04 06:22] LABS: Lactic Acid 1.8 mmol/L (0.4-1.9)
[2019-11-04 06:24] LABS: Differential Indicated MANUAL DIFF
[2019-11-04 06:26] LABS: Anion Gap 11 (5-15); BUN 43 mg/dL (7-18); BUN/Creat Ratio 8.9 RATIO (10-20); Chloride 102 mmol/L (98-107); Creatinine, Serum 4.85 mg/dL (0.55-1.02); EST Glomerular Filtration Rate 10 mL/min (>60); Est Glom Filt Rate - Afr Amer 12 mL/min (>60); Estimated Creatinine Clearance 11.05 ml/min; Glucose 129 mg/dL (74-106); Potassium 4.2 mmol/L (3.5-5.1); Sodium Level 136 mmol/L (136-145)
[2019-11-04] MEDS: 0.9% Normal Saline 1,000 ML 100 ML IV ×2 (06:32→21:02)
[2019-11-04] MEDS: Pregabalin 75 MG Capsule 150 MG PO ×3 (06:32→21:12)
[2019-11-04 06:40] LABS: Bedside Glucose 112 mg/dL (70-110)
[2019-11-04 06:43] LABS: Total Cells Counted 100 (MANUAL DIFF)
[2019-11-04 06:47] LABS: Absolute Lymphocyte Count 1.57 X10^3/uL (0.83-4.51); Eosinophil 2 % (0-5); Lymphocyte 15 % (19-41); Lymphocyte # 1.57 X10^3/ul (4.0); Monocyte 7 % (0-10); Neutrophil # 7.95 X10^3/uL (2.7-7.7); Neutrophil-Segmented 76 % (47-70)
[2019-11-04 06:48] LABS: Monocyte# 0.73 X10^3/uL; Stomatocyte RARE
[2019-11-04] MEDS: SEVELAMER CARBONATE 800 MG TABLET 2400 MG PO ×3 (07:39→16:14)
[2019-11-04] MEDS: Sertraline 100 MG Tablet PO (09:09)
[2019-11-04] MEDS: Sertraline 50 MG Tablet 25 MG PO (09:09)
[2019-11-04] MEDS: Pantoprazole Sodium 20 MG Tablet PO (09:09)
[2019-11-04] MEDS: predniSONE 20 MG Tablet 30 MG PO (09:09)
[2019-11-04] MEDS: Montelukast 10 MG Tablet PO (09:09)
[2019-11-04] MEDS: Glucerna Shake 120 ML LIQUID PO ×2 (09:10→10:47)
--- NOTE | 2019-11-04 10:03 | PN_ITS ---
Patient Problems: Active and Suspected Problems (Last Updated 11/03/19 @ 17:[address] Toma Naylor MD) Severe sepsis (Acute) Objective: No fever. Blood pressure on the lower side. On midodrine 5 mg 3 times daily on dialysis days. Her advertising agency manager is Dr. Lew. Previously, she had 2 surgeries for ulcer in the abdomen as per the patient. Recent surgery postponed by COVID-19 pandemic. Today yet to be seen by Dr. Salamanca. Vitals/I&O's: Vital Signs Temp Pulse Resp BP Pulse Ox 97.8 F 94 18 99/53 L 97 11/04/19 09:04 11/04/19 09:04 11/04/19 09:04 11/04/19 09:04 11/04/19 09:04 Oxygen Delivery Method Room Air Weight: 248 lb 3.848 oz Body Mass Index (BMI) 42.6 Finger Stick Blood Glucose 158 Intake and Output for Last 24 Hours 11/02/19 11/03/19 11/04/19 23:59 23:59 23:59 Intake Total 3095.75 / 3095.75 985 / 985 Balance 3095.75 / 3095.75 985 / 985 General: Alert, Oriented x3, Cooperative HEENT: Atraumatic, PERRLA, EOMI, Normocephalic Oral: Dry Mucosa Neck: Supple, No JVD, Negative Carotid Bruits Lungs: Clear to auscultation, No rhonchi, No wheeze, No rales, Diminished Cardiovascular: Regular rate, Regular Rhythm, Normal S1, Normal S2, No murmurs Abdomen: Bowel Sounds Present, Soft, Non Tender, Non-Distended Extremities: Capillary Refill Less than 3 Seconds, Edema Skin: Ulcer/ Wound - Large, subcutaneous deep ulcer on lower abdominal wall from right to left. Ulcer over left lower leg from posterior lateral to medial side. 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 Musculoskeletal: No Tenderness to Palpation of Joints or Extremities Neurological: Cranial nerves II-XII grossly intact Psych/Mental Status: Normal Affect, Appropriate Microbiology Past 72 Hours 11/03/19 14:50 Mucosa - Nasopharyngeal Group A Streptococcus Rapid Screen - Preliminary 11/03/19 14:40 Mucosa - Nasopharyngeal Influenza Types A,B Direct FA (MENA) - Final 11/03/19 14:50 Nasal Secretion Rapid RSV (DFA) - Final Laboratory Results 11/03/19 13:50: WBC 17.1 H, RBC 3.94 L, Hgb 12.0, Hct 36.8 L, MCV 93.4, MCH 30.5, MCHC 32.6, RDW Std Deviation 64.2 H, RDW Coeff of Perico 18.9 H, Plt Count 125 L, MPV 11.8, Immature Gran % (Auto) 4.100 H, Neut % (Auto) 85.9 H, Lymph % (Auto) 4.8 L, [place] % (Auto) 5.0, Eos % (Auto) 0.0, Baso % (Auto) 0.2, Absolute Neuts (auto) 14.7 H, Absolute Lymphs (auto) 0.82 L, Nucleated RBC % 0.7 11/03/19 13:50: Sodium 138, Potassium 4.8, Chloride 103, Carbon Dioxide 26.0, An ion Gap 9, BUN 32 H, Creatinine 4.34 H, Estim Creat Clear Calc 12.35, Est GFR (MDRD) Af Amer 14 L, Est GFR (MDRD) Non-Af 11 L, BUN/Creatinine Ratio 7.4 L, Glucose 136 H, Calcium 10.0, Total Bilirubin 0.50, AST 17, ALT 31, Alkaline Phosphatase 119 H, Troponin I 0.051 H, Total Protein 6.5, Albumin 2.9 L, Globulin 3.6, Albumin/Globulin Ratio 0.8 L 11/03/19 13:50: Lactic Acid 2.4 H* 11/03/19 14:45: POC Glucose 158 H 11/03/19 18:14: Troponin I 0.055 H 11/03/19 19:00: S.aureus Protein A PCR POSITIVE H, MRSA (PCR) Negative 11/03/19 20:34: PT 18.9 H, INR 1.6 11/03/19 20:34: Troponin I 0.043 11/03/19 20:34: Lactic Acid 3.3 H* 11/03/19 22:35: POC Glucose 310 H 11/04/19 05:53: WBC 10.5, RBC 3.54 L, Hgb 10.8 L, Hct 34.0 L, MCV 96.0, MCH 30.5, MCHC 31.8 L, RDW Std Deviation 64.9 H, RDW Coeff of Perico 18.4 H, Plt Count 121 L, MPV 11.4, Neut % (Auto) Not Reportable, Absolute Neuts (auto) 8.0 H, Absolute Lymphs (auto) 1.57, Total Counted 100, Neutrophils % (Manual) 76 H, Lymphocytes % (Manual) 15 L, Monocytes % (Manual) 7, Eosinophils % (Manual) 2, Diff Path Review May foll, Stomatocytes RARE 11/04/19 05:53: Sodium 136, Potassium 4.2, Chloride 102, Carbon Dioxide 23.0, Anion Gap 11, BUN 43 H, Creatinine 4.85 H, Estim Creat Clear Calc 11.05, Est GFR (MDRD) Af Amer 12 L, Est GFR (MDRD) Non-Af 10 L, BUN/Creatinine Ratio 8.9 L, Glucose 129 H, Calcium 9.0 11/04/19 05:53: Lactic Acid 1.8 11/04/19 06:31: POC Glucose 112 H Current Medications Acetaminophen (Tylenol) 650 mg PO Q6H PRN PRN PRN Reason: Pain Score 1-10/Temp > 100.7 F Atorvastatin Calcium (Lipitor) 20 mg PO QHS [facility] Last Admin: 11/03/19 22:40 Dose: 20 mg Documented by: Bisacodyl (Dulcolax) 10 mg RECTAL DAILY PRN PRN PRN Reason: Constipation Dextrose (D50w Syringe) 0 gm IV X1 PRN; Protocol PRN Reason: Hypoglycemia Glucagon () 1 mg IM .X1 PRN PRN Reason: Hypoglycemia Sodium Chloride () 1,000 mls @ 100 mls/hr IV .Q10H [facility] Last Admin: 11/04/19 06:32 Dose: 100 mls/hr Documented by: Piperacillin Sod/Tazobactam (Sod 3.375 gm/ Sodium Chloride) 50 mls @ 12.5 mls/hr IV Q12 [facility] Last Admin: 11/04/19 09:07 Dose: 12.5 mls/hr Documented by: Sodium Chloride () 250 mls @ 15 mls/hr IV .[id number] PRN PRN Reason: Saline Flush Sodium Chloride () 250 mls @ 15 mls/hr IV .[id number] PRN PRN Reason: Additional IVPB Infusion Vancomycin IV Pharmacy to Dose (1 ea/ Sodium Chloride) 500 mls @ 250 mls/hr IV X1 PRN; Protocol PRN Reason: Rx to Dose Insulin Glargine (Lantus (Bkc)) 78 units SC 1100 SHAHANA Insulin Glargine (Lantus (Bkc)) 20 units SC QHS [facility] Last Admin: 11/03/19 22:41 Dose: 20 units Documented by: Insulin Human Lispro (Humalog Kwikpen ([facility])) 0 unit SC ACHS [facility]; Protocol Last Admin: 11/04/19 06:33 Dose: Not Given Documented by: Magnesium Hydroxide (Milk Of Magnesia) 30 ml PO DAILY PRN PRN Reason: Constipation Midodrine (Proamatine) 5 mg PO TuThSa@1000 [facility] Montelukast Sodium (Singulair) 10 mg PO DAILY [facility] Last Admin: 11/04/19 09:09 Dose: 10 mg Documented by: Morphine Sulfate () 2 mg IV Q3H PRN PRN PRN Reason: Pain Score 6-10/10 Nutritional Formula (Lactose Free) (Glucerna Shake) 120 ml PO TIDCM [facility] Last Admin: 11/04/19 09:10 Dose: 120 ml Documented by: Ondansetron HCl (Zofran) 4 mg IV Q8H PRN PRN PRN Reason: NAUSEA/VOMITING Oxycodone HCl (Oxyir) 10 mg PO Q4H PRN PRN PRN Reason: Pain Score 4-5/10 Pantoprazole Sodium (Protonix) 20 mg PO DAILY [facility] Last Admin: 11/04/19 09:09 Dose: 20 mg Documented by: Polyethylene Glycol (Miralax) 17 gm PO QHS [facility] Last Admin: 11/03/19 22:40 Dose: Not Given Documented by: Prednisone () 30 mg PO DAILY [facility] Last Admin: 11/04/19 09:09 Dose: 30 mg Documented by: Pregabalin (Lyrica) 150 mg PO TID [facility] Last Admin: 11/04/19 06:32 Dose: 150 mg Documented by: Senna/Docusate Sodium (Senokot-S, Leti-Colace) 2 tablet PO BID PRN PRN PRN Reason: Constipation Sertraline HCl (Zoloft) 100 mg PO DAILY [facility] Last Admin: 05/18/20 09:09 Dose: 100 mg Documented by: Sertraline HCl (Zoloft) 25 mg PO DAILY [facility] Last Admin: 11/04/19 09:09 Dose: 25 mg Documented by: Sevelamer Carbonate (Renvela) 2,400 mg PO TIDCM [facility] Last Admin: 11/04/19 07:39 Dose: 2,400 mg Documented by: Simethicone (Mylicon) 80 mg PO TID [facility] Last Admin: 11/04/19 06:32 Dose: 80 mg Documented by: Sodium Chloride () 10 - 40 ml IV UD PRN PRN Reason: SALINE FLUSH STROKE Vital Signs/Narrative: Vital Signs Temp Pulse Resp BP Pulse Ox 11/04/19 09:04 97.8 F 94 18 99/53 L 97 11/04/19 06:46 83 Medical Necessity - Tobacco Use Smoking Status: Never smoker Assessment/Plan All Active Problems (Last Updated 11/03/19 @ 17:[address] 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 Salamanca and had debridement in April 2019. Scheduled wound debridement tomorrow response secondary to COVID-19 pandemic. Previous wound culture grew Klebsiella pneumoniae, Proteus mirabilis, MRSA and corynebacterium. 11/03: Patient had low-grade temperature 100 Fahrenheit on 11/02. Currently on broad-spectrum antibiotic IV vancomycin and Zosyn. Cultures are pending. Rapid RSV, group A strep and influenza tests are negative. Plastic surgery on consult. #2 indeterminate troponin secondary to infection/severe sepsis: Troponin is minimally elevated at 0.051, likely due to severe sepsis. Patient denied any chest pain. EKG revealed no acute ischemic changes. Repeat last troponin is normal. 2D echo in July 2018 Interpretation Summary Left ventricular systolic function is normal. The estimated ejection fraction is 65 %. Moderate concentric left ventricular hypertrophy. The left atrium is mildly enlarged. There is mild mitral annular calcification. Mild diffuse mitral valve thickening. Mild mitral valve stenosis. Moderate (2+) mitral valve insufficiency. Mild tricuspid valve insufficiency. Right ventricular systolic pressure estimated to be 49 mmHg. There is evidence of diastolic dysfunction. #3 ESRD on hemodialysis: Seen by advertising agency manager Dr. Lew. Continue dialysis as per schedule T//. Midodrine changed to daily #4 type 2 diabetes mellitus: ADA diet, Accu-Cheks, insulin sliding scale, continue home doses of Lantus. #5 chronic inflammatory demyelinating polyneuropathy, paraplegia, physical debility/bedbound: Stable, continue prednisone same dose. #6 Hypotension with history of hypertension: Blood pressure was low in the morning. Midodrine 10 mg daily ordered. #7 history of right leg DVT: hold Eliquis for now because patient may go for surgery, will check INR and pro time. #8 anxiety and depression: Continue Zoloft. #9 chronic anemia: Due to anemia of chronic disease. Admission HB is 12 g/dL, stable at baseline. Platelet count is 125,000, has been fluctuating in the past. No active bleeding. SERGEI globin is between 10 to 11 g%. #10 GERD: Continue PPI. #12 DVT prophylaxis: SCDs. Inpatient E&M: 53791 Subs Hosp L2
[2019-11-04] MEDS: Midodrine HCl 5 MG Tablet 10 MG PO (10:43)
[2019-11-04] MEDS: Insulin Lispro 100 UNIT/ML INSULN.PEN SC ×3 (10:46→21:17)
--- NOTE | 2019-11-04 11:01 | PCM.CONS.R ---
Consultation - Renal 11/04/19 PCP/ Referring MD: Requesting physician: [] Primary care physician: Dr. Marcela Kerr MD Reason for Consultation:: ESRD ON HD TTS - History of Present Illness History of Present Illness: The patient is a 59 year old morbidly obese F with ESRD due to diabetes on HD qTTS, last dialysis Monday transferred from [facility] for fever, confusion, increased lethargy over weekend. She was reported to have temp of 101 at [facility], 100 on admit. WBC elevated at 17K. Blood cx pending. She has been treated for chronic lower abdominal nonhealing infected ulcer managed by Dr Salamanca. Mentation back to baseline after starting antibx. She denied chest pain, shortness of breath, cough. She is bedridden due to CIDP, bilateral leg paralysis. She has hypotension with high interdialytic fluid gains. She requires midodrine. She received fluid bolus in ER on admit. BP meds have been discontinued. - Allergies Allergies: Allergies latex Allergy (Verified 10/23/19 10:58) Hives Sulfa (Sulfonamide Antibiotics) Allergy (Verified 10/23/19 10:58) Rash codeine Adverse Reaction (Verified 10/23/19 10:58) Confusion - Current Medications Current Medications: Current Medications Acetaminophen (Tylenol) 650 mg PO Q6H PRN PRN PRN Reason: Pain Score 1-10/Temp > 100.7 F Atorvastatin Calcium (Lipitor) 20 mg PO QHS [facility] Last Admin: 11/03/19 22:40 Dose: 20 mg Documented by: Bisacodyl (Dulcolax) 10 mg RECTAL DAILY PRN PRN PRN Reason: Constipation Dextrose (D50w Syringe) 0 gm IV X1 PRN; Protocol PRN Reason: Hypoglycemia Glucagon () 1 mg IM .X1 PRN PRN Reason: Hypoglycemia Sodium Chloride () 1,000 mls @ 100 mls/hr IV .Q10H [facility] Last Admin: 11/04/19 06:32 Dose: 100 mls/hr Documented by: Piperacillin Sod/Tazobactam (Sod 3.375 gm/ Sodium Chloride) 50 mls @ 12.5 mls/hr IV Q12 [facility] Last Admin: 11/04/19 09:07 Dose: 12.5 mls/hr Documented by: Sodium Chloride () 250 mls @ 15 mls/hr IV .[id number] PRN PRN Reason: Saline Flush Sodium Chloride () 250 mls @ 15 mls/hr IV .[id number] PRN PRN Reason: Additional IVPB Infusion Vancomycin IV Pharmacy to Dose (1 ea/ Sodium Chloride) 500 mls @ 250 mls/hr IV X1 PRN; Protocol PRN Reason: Rx to Dose Insulin Glargine (Lantus (Bkc)) 78 units SC 1100 [facility] Last Admin: 11/04/19 10:46 Dose: 78 units Documented by: Insulin Glargine (Lantus (Bkc)) 20 units SC QHS [facility] Last Admin: 11/03/19 22:41 Dose: 20 units Documented by: Insulin Human Lispro (Humalog Kwikpen ([facility])) 0 unit SC ACHS [facility]; Protocol Last Admin: 11/04/19 10:46 Dose: 2 units Documented by: Magnesium Hydroxide (Milk Of Magnesia) 30 ml PO DAILY PRN PRN Reason: Constipation Midodrine (Proamatine) 5 mg PO TuThSa@1000 [facility] Montelukast Sodium (Singulair) 10 mg PO DAILY [facility] Last Admin: 11/04/19 09:09 Dose: 10 mg Documented by: Morphine Sulfate () 2 mg IV Q3H PRN PRN PRN Reason: Pain Score 6-10/10 Nutritional Formula (Lactose Free) (Glucerna Shake) 120 ml PO TIDCM [facility] Last Admin: 11/04/19 10:47 Dose: 120 ml Documented by: Ondansetron HCl (Zofran) 4 mg IV Q8H PRN PRN PRN Reason: NAUSEA/VOMITING Oxycodone HCl (Oxyir) 10 mg PO Q4H PRN PRN PRN Reason: Pain Score 4-5/10 Pantoprazole Sodium (Protonix) 20 mg PO DAILY [facility] Last Admin: 11/04/19 09:09 Dose: 20 mg Documented by: Polyethylene Glycol (Miralax) 17 gm PO QHS [facility] Last Admin: 11/03/19 22:40 Dose: Not Given Documented by: Prednisone () 30 mg PO DAILY [facility] Last Admin: 11/04/19 09:09 Dose: 30 mg Documented by: Pregabalin (Lyrica) 150 mg PO TID [facility] Last Admin: 05/18/20 06:32 Dose: 150 mg Documented by: Senna/Docusate Sodium (Senokot-S, Leti-Colace) 2 tablet PO BID PRN PRN PRN Reason: Constipation Sertraline HCl (Zoloft) 100 mg PO DAILY [facility] Last Admin: 11/04/19 09:09 Dose: 100 mg Documented by: Sertraline HCl (Zoloft) 25 mg PO DAILY [facility] Last Admin: 11/04/19 09:09 Dose: 25 mg Documented by: Sevelamer Carbonate (Renvela) 2,400 mg PO TIDCM [facility] Last Admin: 11/04/19 10:52 Dose: 2,400 mg Documented by: Simethicone (Mylicon) 80 mg PO TID [facility] Last Admin: 11/04/19 06:32 Dose: 80 mg Documented by: Sodium Chloride () 10 - 40 ml IV UD PRN PRN Reason: SALINE FLUSH - Past Medical History Past Medical History (Chronic Problems): Chronic Problems (Last Updated 11/03/19 @ 17:[address] 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) nonhealing infected diabetic ulcerated abscesses right lateral abdominal wall Wound, open, abdominal wall, anterior (Chronic) Anxiety and depression (Chronic) ESRD (end stage renal disease) (Chronic) Morbid obesity (Chronic) Chronic diastolic CHF (congestive heart failure) (Chronic) 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) Hyperlipidemia (Chronic) Chronic kidney disease (Chronic) Obesity (Chronic) DM2 (diabetes mellitus, type 2) (Chronic) - Past Surgical History Surgical History: cholecystectomy, - - Letter tubal ligation, cholecystectomy, right upper extremity fistula placement and eventual ligation, bilateral upper chest dialysis catheters with right now left upper chest in place. - Social History Smoking Status: Never smoker Alcohol: None Drugs: None - Family History Maternal Family History: Family History (Last Reviewed 10/23/19 @ 11:[address] Jacob Santana MD) Father Diabetes Mother Heart disease History Items: Cancer, Heart Disease Paternal Family History: Family History (Last Reviewed 10/23/19 @ 11:[address] Jacob Santana MD) Father Diabetes Mother Heart disease History Items: Diabetes, Heart Disease, Hypertension Sibling Family History: Family History (Last Reviewed 10/23/19 @ 11:[address] Jacob Santana MD) Father Diabetes Mother Heart disease History Items: Diabetes Review of Systems Constitutional: Reports: Fever, Weakness - chronic. Denies: Anorexia, Chills Cardiovascular: Reports: Edema - chronic. Denies: Chest Pain, Syncope Respiratory: Denies: Cough, Shortness of Breath, Shortness of breath upon exertion Gastrointestinal: Denies: Abdominal Pain, Nausea, Vomiting Genitourinary: Denies: Dysuria Musculoskeletal: Reports: - - paraplegic, edema Skin: Reports: Wounds - abdomen Neurological: Denies: Tremor, Seizures Psychiatric: Reports: Anxiety, Depression Hematologic/ Lymphatic: Reports: Anemia Patient Problems: Active and Suspected Problems (Last Updated 11/03/19 @ 17:[address] Toma Naylor MD) Severe sepsis (Acute) - Physical Exam Vitals/I&O's: Vital Signs Temp Pulse Resp BP Pulse Ox 97.8 F 94 18 99/53 L 97 11/04/19 09:04 11/04/19 09:04 11/04/19 09:04 11/04/19 09:04 11/04/19 09:04 Oxygen Delivery Method Room Air Weight: 112.6 kg Body Mass Index (BMI) 42.6 Finger Stick Blood Glucose 158 Intake and Output for Last 24 Hours 11/02/19 11/03/19 11/04/19 23:59 23:59 23:59 Intake Total 3095.75 / 3095.75 985 / 985 Balance 3095.75 / 3095.75 985 / 985 General: Alert, Oriented x3, Cooperative, No apparent distress HEENT: PERRLA, EOMI Lungs: Clear to auscultation Cardiovascular: Regular rate Abdomen: Bowel Sounds Present, Soft, Non Tender, Non-Distended, Obese Extremities: Edema Psych/Mental Status: Normal Affect, Appropriate, Alert and oriented to time, place, person, mood and affect Microbiology Past 72 Hours 11/03/19 14:50 Mucosa - Nasopharyngeal Group A Streptococcus Rapid Screen - Preliminary 11/03/19 14:40 Mucosa - Nasopharyngeal Influenza Types A,B Direct FA ([facility]) - Final 11/03/19 14:50 Nasal Secretion Rapid RSV (DFA) - Final Laboratory Results 11/03/19 13:50: WBC 17.1 H, RBC 3.94 L, Hgb 12.0, Hct 36.8 L, MCV 93.4, MCH 30.5, MCHC 32.6, RDW Std Deviation 64.2 H, RDW Coeff of Perico 18.9 H, Plt Count 125 L, MPV 11.8, Immature Gran % (Auto) 4.100 H, Neut % (Auto) 85.9 H, Lymph % (Auto) 4.8 L, Sharkey % (Auto) 5.0, Eos % (Auto) 0.0, Baso % (Auto) 0.2, Absolute Neuts (auto) 14.7 H, Absolute Lymphs (auto) 0.82 L, Nucleated RBC % 0.7 11/03/19 13:50: Sodium 138, Potassium 4.8, Chloride 103, Carbon Dioxide 26.0, Anion Gap 9, BUN 32 H, Creatinine 4.34 H, Estim Creat Clear Calc 12.35, Est GFR (MDRD) Af Amer 14 L, Est GFR (MDRD) Non-Af 11 L, BUN/Creatinine Ratio 7.4 L, Glucose 136 H, Calcium 10.0, Total Bilirubin 0.50, AST 17, ALT 31, Alkaline Phosphatase 119 H, Troponin I 0.051 H, Total Protein 6.5, Albumin 2.9 L, Globulin 3.6, Albumin/Globulin Ratio 0.8 L 11/03/19 13:50: Lactic Acid 2.4 H* 11/03/19 14:45: POC Glucose 158 H 11/03/19 18:14: Troponin I 0.055 H 11/03/19 19:00: S.aureus Protein A PCR POSITIVE H, MRSA (PCR) Negative 11/03/19 20:34: PT 18.9 H, INR 1.6 11/03/19 20:34: Troponin I 0.043 11/03/19 20:34: Lactic Acid 3.3 H* 11/03/19 22:35: POC Glucose 310 H 11/04/19 05:53: WBC 10.5, RBC 3.54 L, Hgb 10.8 L, Hct 34.0 L, MCV 96.0, MCH 30.5, MCHC 31.8 L, RDW Std Deviation 64.9 H, RDW Coeff of Perico 18.4 H, Plt Count 121 L, MPV 11.4, Neut % (Auto) Not Reportable, Absolute Neuts (auto) 8.0 H, Absolute Lymphs (auto) 1.57, Total Counted 100, Neutrophils % (Manual) 76 H, Lymphocytes % (Manual) 15 L, Monocytes % (Manual) 7, Eosinophils % (Manual) 2, Diff Path Review May foll, Stomatocytes RARE 11/04/19 05:53: Sodium 136, Potassium 4.2, Chloride 102, Carbon Dioxide 23.0, Anion Gap 11, BUN 43 H, Creatinine 4.85 H, Estim Creat Clear Calc 11.05, Est GFR (MDRD) Af Amer 12 L, Est GFR (MDRD) Non-Af 10 L, BUN/Creatinine Ratio 8.9 L, Glucose 129 H, Calcium 9.0 11/04/19 05:53: Lactic Acid 1.8 11/04/19 06:31: POC Glucose 112 H Clinical Impression(s) from Imaging Studies Brain CT 11/03/19 14:32 IMPRESSION: No evidence of acute intracranial bleed, mass or ischemia. Electronically Signed: Bernardo Crystal DO at 15:29 EDT , Service support , Chest X-Ray 11/03/19 14:32 IMPRESSION: Overall similar appearance compared to prior exam with no evidence of new focal airspace disease. Electronically Signed: Bernardo Crystal DO at 15:32 EDT , Service support , Microbiology 11/03/19 14:50 Group A Streptococcus Rapid Screen - Preliminary Mucosa - Nasopharyngeal 11/03/19 14:40 Influenza Types A,B Direct FA ([facility]) - Final Mucosa - Nasopharyngeal 11/03/19 14:50 Rapid RSV (DFA) - Final Nasal Secretion Current Medications Acetaminophen (Tylenol) 650 mg PO Q6H PRN PRN PRN Reason: Pain Score 1-10/Temp > 100.7 F Atorvastatin Calcium (Lipitor) 20 mg PO QHS [facility] Last Admin: 11/03/19 22:40 Dose: 20 mg Documented by: Bisacodyl (Dulcolax) 10 mg RECTAL DAILY PRN PRN PRN Reason: Constipation Dextrose (D50w Syringe) 0 gm IV X1 PRN; Protocol PRN Reason: Hypoglycemia Glucagon () 1 mg IM .X1 PRN PRN Reason: Hypoglycemia Sodium Chloride () 1,000 mls @ 100 mls/hr IV .Q10H [facility] Last Admin: 11/04/19 06:32 Dose: 100 mls/hr Documented by: Piperacillin Sod/Tazobactam (Sod 3.375 gm/ Sodium Chloride) 50 mls @ 12.5 mls/hr IV Q12 [facility] Last Admin: 11/04/19 09:07 Dose: 12.5 mls/hr Documented by: Sodium Chloride () 250 mls @ 15 mls/hr IV .[id number] PRN PRN Reason: Saline Flush Sodium Chloride () 250 mls @ 15 mls/hr IV .[id number] PRN PRN Reason: Additional IVPB Infusion Vancomycin IV Pharmacy to Dose (1 ea/ Sodium Chloride) 500 mls @ 250 mls/hr IV X1 PRN; Protocol PRN Reason: Rx to Dose Insulin Glargine (Lantus (Bkc)) 78 units SC 1100 [facility] Last Admin: 11/04/19 10:46 Dose: 78 units Documented by: Insulin Glargine (Lantus (Bkc)) 20 units SC QHS [facility] Last Admin: 11/03/19 22:41 Dose: 20 units Documented by: Insulin Human Lispro (Humalog Kwikpen (Bkc)) 0 unit SC ACHS [facility]; Protocol Last Admin: 11/04/19 10:46 Dose: 2 units Documented by: Magnesium Hydroxide (Milk Of Magnesia) 30 ml PO DAILY PRN PRN Reason: Constipation Midodrine (Proamatine) 5 mg PO TuThSa@1000 [facility] Montelukast Sodium (Singulair) 10 mg PO DAILY [facility] Last Admin: 05/18/20 09:09 Dose: 10 mg Documented by: Morphine Sulfate () 2 mg IV Q3H PRN PRN PRN Reason: Pain Score 6-10/10 Nutritional Formula (Lactose Free) (Glucerna Shake) 120 ml PO TIDCM [facility] Last Admin: 11/04/19 10:47 Dose: 120 ml Documented by: Ondansetron HCl (Zofran) 4 mg IV Q8H PRN PRN PRN Reason: NAUSEA/VOMITING Oxycodone HCl (Oxyir) 10 mg PO Q4H PRN PRN PRN Reason: Pain Score 4-5/10 Pantoprazole Sodium (Protonix) 20 mg PO DAILY [facility] Last Admin: 11/04/19 09:09 Dose: 20 mg Documented by: Polyethylene Glycol (Miralax) 17 gm PO QHS [facility] Last Admin: 11/03/19 22:40 Dose: Not Given Documented by: Prednisone () 30 mg PO DAILY [facility] Last Admin: 11/04/19 09:09 Dose: 30 mg Documented by: Pregabalin (Lyrica) 150 mg PO TID [facility] Last Admin: 11/04/19 06:32 Dose: 150 mg Documented by: Senna/Docusate Sodium (Senokot-S, Leti-Colace) 2 tablet PO BID PRN PRN PRN Reason: Constipation Sertraline HCl (Zoloft) 100 mg PO DAILY [facility] Last Admin: 11/04/19 09:09 Dose: 100 mg Documented by: Sertraline HCl (Zoloft) 25 mg PO DAILY [facility] Last Admin: 11/04/19 09:09 Dose: 25 mg Documented by: Sevelamer Carbonate (Renvela) 2,400 mg PO TIDCM [facility] Last Admin: 11/04/19 10:52 Dose: 2,400 mg Documented by: Simethicone (Mylicon) 80 mg PO TID [facility] Last Admin: 11/04/19 06:32 Dose: 80 mg Documented by: Sodium Chloride () 10 - 40 ml IV UD PRN PRN Reason: SALINE FLUSH Assessment/Plan All Active Problems (Last Updated 11/03/19 @ 17:[address] Toma Naylor MD) Severe sepsis (Acute) 1. ESRD HD , , Sat. Last dialysis Monday, Will arrange dialysis for Monday. 2. Fever with leukocytosis improved with iv antibx. Blood cx pending. Resp panel negative 3. Chronic Abdominal wound renal dose antibx 4. Chronic hypotension. Midodrine daily. Received fluid bolus on admit. Oxygenation stable. 5. DM2 with CIDP chronic paralysis, debilitation ECF resident 6. Morbid obesity
[2019-11-04 11:05] LABS: Bedside Glucose 201 mg/dL (70-110)
[2019-11-04 11:54] LABS: Pathologist Review Reviewed
--- NOTE | 2019-11-04 14:36 | NURSING ---
wound photo: abdomen
--- NOTE | 2019-11-04 14:37 | NURSING ---
wound photo: abdomen
--- NOTE | 2019-11-04 14:38 | NURSING ---
wound photo: left posterolateral leg
--- NOTE | 2019-11-04 15:34 | PCM.HP.ID ---
Problem List (1) Severe sepsis Status: Acute Reason for Consult: sepsis Consulted by: Dr. Villanueva History of Present Illness: The patient is a 59 year old F with ESRD, chronic abd wound, presented from [facility] with acute onset fever, not feeling well, lethargy. Denies cough/SOB, no change in taste/smell, no aches and pain. Wounds on abd have been relatively stable. Taken to ED, afebrile here, but elevated lactate and wbc. Started on vanc/zosyn. Feeling ok, no further fever. Full ROS performed and neg except as noted above. - Medical History Past Medical History (Chronic Problems): Chronic Problems (Last Updated 11/03/19 @ 17:[address] 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) nonhealing infected diabetic ulcerated abscesses right lateral abdominal wall Wound, open, abdominal wall, anterior (Chronic) Anxiety and depression (Chronic) ESRD (end stage renal disease) (Chronic) Morbid obesity (Chronic) Chronic diastolic CHF (congestive heart failure) (Chronic) 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) Hyperlipidemia (Chronic) Chronic kidney disease (Chronic) Obesity (Chronic) DM2 (diabetes mellitus, type 2) (Chronic) Allergies/Adverse Reactions: Allergies latex Allergy (Verified 10/23/19 10:58) Hives Sulfa (Sulfonamide Antibiotics) Allergy (Verified 10/23/19 10:58) Rash codeine Adverse Reaction (Verified 10/23/19 10:58) Confusion Home Medications: Ambulatory Orders Medication Instructions Recorded Montelukast [Singulair] 10 mg PO DAILY 10/29/13 Sertraline HCl 125 mg PO DAILY 06/14/18 Pantoprazole Sodium [Protonix] 20 mg PO DAILY 06/20/18 predniSONE tablet 30 mg PO DAILY 10/04/18 Sevelamer Carbonate [Renvela] 2,400 mg PO TIDCM 01/19/19 multivitamin 1 tab PO DAILY 04/03/19 Insulin Lispro [Admelog Solostar] 7 unit SQ QHS 04/25/19 Apixaban [Eliquis] 5 mg PO BID #90 tab 05/03/19 Magnesium Hydroxide [Milk Of 30 ml PO DAILY PRN #1 udc 05/03/19 Magnesia] Arginine/Ascorbate Sod/Pedro AC 1 ea PO BID 05/27/19 [Arginaid Powder] Bisacodyl [Dulcolax] 10 mg RECTAL DAILY PRN PRN 05/27/19 Sennosides/Docusate Sodium [Senna 2 ea PO BID 05/27/19 Plus 8.6-50 mg Softgel] SimETHICONE [Mylicon] 80 mg PO TID 06/27/19 Insulin Lispro [Admelog Solostar] 15 unit SQ BREAKFAST 09/18/19 Insulin Lispro [Admelog Solostar] 28 unit SQ DINNER 09/18/19 Midodrine HCl 5 mg PO TUTHSA 09/18/19 Acetaminophen [Tylenol Tablet] 650 mg PO Q6H PRN PRN tab 09/23/19 Menthol/Lanolin/Calamine/Znox 1 applic TOPICAL TID tube 09/23/19 [Calmoseptine Ointment] Sodium Hypochlorite [Dakins 1 applic TOPICAL BID bottle 09/23/19 Solution 0.25% (1/2 Strength)] Amlodipine Besylate [Norvasc] 2.5 mg PO SUMOWEFR 10/18/19 Insulin Glargine,Hum.rec.anlog 20 unit SUBCUT QHS 10/18/19 [Basaglar Kwikpen U-100] Insulin Lispro [Admelog Solostar] 28 unit SQ LUNCH 10/18/19 Polyethylene Glycol 3350 [Miralax] 17 gm PO QHS 10/18/19 Vit E Acet/Gly/Dimeth/Water 237 ml TP DAILY 10/18/19 [Cetaphil Moisturizing Lotion] atorvastatin 20 mg tablet 20 mg PO QHS 10/23/19 pregabalin 150 mg capsule 150 mg PO TID 10/23/19 sodium phosphates 19 gram-7 118 ml RC ONCE PRN 10/23/19 gram/118 mL enema Activated Charcoal [Charcoal] 200 mg PO PRN PRN 11/03/19 Insulin Glargine [Lantus (BKC)] 78 units SUBCUT DAILY 11/03/19 Multivit-Min/Iron/Folic/Lutein 1 ea PO DAILY 11/03/19 [Centrum Silver Women Tablet] - Social History SMOKING STATUS:: Never smoker Vital Signs Temp Pulse Resp BP Pulse Ox 98.7 F 91 18 124/80 H 97 11/04/19 15:11 11/04/19 15:11 11/04/19 15:11 11/04/19 15:11 11/04/19 15:11 Oxygen Delivery Method Room Air Weight: 112.6 kg Body Mass Index (BMI) 42.6 Finger Stick Blood Glucose 158 Microbiology Past 72 Hours 11/03/19 19:00 Gram Stain - Final Wound - Abdominal Wound Culture - Preliminary Mixed Gram Pos & Gram Neg Org 11/03/19 14:50 Group A Streptococcus Rapid Screen - Preliminary Mucosa - Nasopharyngeal 11/03/19 14:40 Influenza Types A,B Direct FA ([facility]) - Final Mucosa - Nasopharyngeal 11/03/19 14:50 Rapid RSV (DFA) - Final Nasal Secretion Laboratory Tests Past 24 Hrs 11/03/19 11/03/19 11/03/19 18:14 19:00 20:34 WBC RBC Hgb Hct MCV MCH MCHC RDW Std Deviation RDW Coeff of Perico Plt Count MPV Neut % (Auto) Absolute Neuts (auto) Absolute Lymphs (auto) Total Counted Neutrophils % (Manual) Lymphocytes % (Manual) Monocytes % (Manual) Eosinophils % (Manual) Diff Path Review Stomatocytes PT 18.9 H INR 1.6 Sodium Potassium Chloride Carbon Dioxide Anion Gap BUN Creatinine Estim Creat Clear Calc Est GFR (MDRD) Af Amer Est GFR (MDRD) Non-Af BUN/Creatinine Ratio Glucose Lactic Acid Calcium Troponin I 0.055 H S.aureus Protein A PCR POSITIVE H MRSA (PCR) Negative 11/03/19 11/03/19 11/04/19 20:34 20:34 05:53 WBC 10.5 RBC 3.54 L Hgb 10.8 L Hct 34.0 L MCV 96.0 MCH 30.5 MCHC 31.8 L RDW Std Deviation 64.9 H RDW Coeff of Perico 18.4 H Plt Count 121 L MPV 11.4 Neut % (Auto) Not Reportable Absolute Neuts (auto) 8.0 H Absolute Lymphs (auto) 1.57 Total Counted 100 Neutrophils % (Manual) 76 H Lymphocytes % (Manual) 15 L Monocytes % (Manual) 7 Eosinophils % (Manual) 2 Diff Path Review Reviewed Stomatocytes RARE PT INR Sodium Potassium Chloride Carbon Dioxide Anion Gap BUN Creatinine Estim Creat Clear Calc Est GFR (MDRD) Af Amer Est GFR (MDRD) Non-Af BUN/Creatinine Ratio Glucose Lactic Acid 3.3 H* Calcium Troponin I 0.043 S.aureus Protein A PCR MRSA (PCR) 11/04/19 11/04/19 05:53 05:53 WBC RBC Hgb Hct MCV MCH MCHC RDW Std Deviation RDW Coeff of Perico Plt Count MPV Neut % (Auto) Absolute Neuts (auto) Absolute Lymphs (auto) Total Counted Neutrophils % (Manual) Lymphocytes % (Manual) Monocytes % (Manual) Eosinophils % (Manual) Diff Path Review Stomatocytes PT INR Sodium 136 Potassium 4.2 Chloride 102 Carbon Dioxide 23.0 Anion Gap 11 BUN 43 H Creatinine 4.85 H Estim Creat Clear Calc 11.05 Est GFR (MDRD) Af Amer 12 L Est GFR (MDRD) Non-Af 10 L BUN/Creatinine Ratio 8.9 L Glucose 129 H Lactic Acid 1.8 Calcium 9.0 Troponin I S.aureus Protein A PCR MRSA (PCR) - Other Studies Radiology: [] reviewed Other Studies: [] Route of nutrition/ use of supplements: [] Nutritional Intake: [] IV Site: [] Vargas Catheter: [] - Physical Exam General: Alert, Oriented x3, Cooperative, No apparent distress HEENT: Atraumatic, PERRLA, EOMI Neck: Supple, No Nodes Lungs: Clear to auscultation, Normal air movement Cardiovascular: Regular rate, Regular Rhythm Abdomen: Soft, Distended Extremities: Edema Skin: Ulcer/ Wound - reviewed photos IV Site: Peripheral, without redness Musculoskeletal: No Tenderness to Palpation of Joints or Extremities Neurological: Cranial nerves II-XII grossly intact - Assessment/Plan Antibiotics: [] Assessment/Plan: [] Active and Suspected Problems (Last Updated 11/03/19 @ 17:[address] Toma Naylor MD) Severe sepsis (Acute) Improved. On vanc/zosyn. Gets HD --sat. MSSA pcr (+). Dr. Salamanca to see. Low suspicion for covid, test pending for surgical clearance. Will follow, d/w nursing and Dr. Villanueva.
[2019-11-04] MEDS: Juven (unflavored) Packet 1 PACKET PO (16:15)
[2019-11-04 17:00] LABS: Bedside Glucose 250 mg/dL (70-110)
[2019-11-04] MEDS: Atorvastatin Calcium 20 MG Tablet PO (21:04)
[2019-11-05] VITALS (12 sets, daily range): BP systolic 102–151; BP diastolic 59–80; PULSE 64–99; RESP 12–20; TEMP 36–37; O2SAT 94–96
[2019-11-05 00:15] LABS: Bedside Glucose 286 mg/dL (70-110)
--- NOTE | 2019-11-05 00:40 | NURSING ---
Abdominal dressing changed at this time as per orders. Wet to dry sterile dressing. Pt. tolerated well.
[2019-11-05] MEDS: Pregabalin 75 MG Capsule 150 MG PO ×2 (05:33→22:15)
[2019-11-05] MEDS: 0.9% Normal Saline 1,000 ML 100 ML IV (05:38)
[2019-11-05 06:08] LABS: Hemoglobin 10.1 g/dL (12.0-15.0); Mean Corp Hgb Conc 31.6 g/dL (32-36); Mean Platelet Vol. 12.1 fl (6.2-12.0); POSITIVE COUNT YES; POSITIVE MORPHOLOGY YES; Platelet Count 121 K/mm3 (150-450); RBC Distribution Width CV 18.4 % (11.6-14.6); Red Blood Count 3.37 M/mm3 (4.2-5.4); White Blood Count 9.2 K/mm3 (4.4-11.0)
[2019-11-05 06:12] LABS: Differential Indicated MANUAL DIFF
[2019-11-05 06:31] LABS: Vancomycin, Random Level 11.2 ug/mL (0.0-15.0)
[2019-11-05 06:35] LABS: ALB/GLOB Ratio 0.7 RATIO (0.9-2.4); AST(SGOT) 17 U/L (15-37); Alanine Aminotransfer ALT/SGPT 29 U/L (13-56); Albumin, Serum 2.3 g/dL (3.2-5.0); Alkaline Phosphatase 105 U/L (45-117); Anion Gap 12 (5-15); BUN 61 mg/dL (7-18); Calcium,Total 8.8 mg/dL (8.5-10.1); Chloride 102 mmol/L (98-107); Creatinine, Serum 6.07 mg/dL (0.55-1.02); EST Glomerular Filtration Rate 8 mL/min (>60); Est Glom Filt Rate - Afr Amer 9 mL/min (>60); Estimated Creatinine Clearance 8.83 ml/min; Globulin 3.2 g/dL (2.2-4.2); Glucose 210 mg/dL (74-106); Potassium 4.8 mmol/L (3.5-5.1); Prealbumin 20.9 mg/dL (20.0-40.0); Protein, Total 5.5 g/dL (6.4-8.2); Sodium Level 134 mmol/L (136-145)
[2019-11-05 07:04] LABS: Eosinophil 1 % (0-5); Lymphocyte 12 % (19-41); Metamyelocyte 6 % (0-1); Monocyte 9 % (0-10); Neutrophil-Band 4 % (0-5); Neutrophil-Segmented 68 % (47-70); Total Cells Counted 100 (MANUAL DIFF)
[2019-11-05] MEDS: Insulin Lispro 100 UNIT/ML INSULN.PEN SC ×3 (07:06→22:05)
[2019-11-05 07:07] LABS: Absolute Neutrophil Count 6.6 X10^3/uL (2.0-7.7); Neutrophil # 6.62 X10^3/uL (2.7-7.7)
[2019-11-05 07:08] LABS: Hypochromasia RARE; Platelet Estimate SLT DEC (ADEQ); Polychromasia 1+
[2019-11-05 07:16] LABS: Bedside Glucose 193 mg/dL (70-110)
--- NOTE | 2019-11-05 08:59 | PCM.RX.CS ---
Consult Pharmacy has been consulted to manage selected antiobiotic: Vancomycin Type of Consult: Follow-up Labs: Sodium 134 mmol/L (136-145) L 11/05/19 05:36 Potassium 4.8 mmol/L (3.5-5.1) 11/05/19 05:36 Chloride 102 mmol/L (98-107) 11/05/19 05:36 Carbon Dioxide 20.0 mmol/L (21.0-32.0) L 11/05/19 05:36 Anion Gap 12 (5-15) 11/05/19 05:36 BUN 61 mg/dL (7-18) H 11/05/19 05:36 Creatinine 6.07 mg/dL (0.55-1.02) H 11/05/19 05:36 Est GFR (MDRD) Af Amer 9 mL/min (>60) L 11/05/19 05:36 Est GFR (MDRD) Non-Af 8 mL/min (>60) L 11/05/19 05:36 BUN/Creatinine Ratio 10.0 RATIO (10-20) 11/05/19 05:36 Glucose 210 mg/dL (74-106) H 11/05/19 05:36 Random Vancomycin 11.2 ug/mL (0.0-15.0) 11/05/19 05:36 Microbiology: Microbiology 11/04/19 18:02 Mucosa - Nasopharyngeal Coronavirus COVID-19 PCR - Final 11/03/19 19:00 Wound - Abdominal Gram Stain - Final 11/03/19 19:00 Wound - Abdominal Wound Culture - Preliminary Mixed Gram Pos & Gram Neg Org 11/03/19 14:50 Mucosa - Nasopharyngeal Group A Streptococcus Rapid Screen - Preliminary 11/03/19 14:40 Mucosa - Nasopharyngeal Influenza Types A,B Direct FA (MENA) - Final 11/03/19 14:50 Nasal Secretion Rapid RSV (DFA) - Final Goal Trough: 15-20 mcg/mL Pharmacy Plan for Drug Dosing: VANCOMYCIN LEVEL RECEIVED Current Vancomycin Dose: DIALYSIS PATIENT Number of Doses Received: Vancomycin Level: 11.2 Hours Since Last Dose: ~36 Renal Function: CR 6 CL 9 Renal Function Trend: Lab/Micro: Vancomycin Plan/Comments:750MG IV X 1 POST HD Pending Level: RANDOM 11.06.20 0600 Pharmacy Service will continue to monitor and adjust dosing as required.
--- NOTE | 2019-11-05 09:03 | CT_ITS ---
STUDY: CT ABDOMEN AND PELVIS WITHOUT CONTRAST REASON FOR EXAM: Female, 59 years old. INFECTED ULCERS ABD WALL WITH SEPSIS, MRSA-ABD WOUND, DIALYSIS, DB, CKD STAGE 4, CHF, SURG-cholecystectomy, tubal, dialysis catheter RADIATION DOSAGE (If Supplied By Facility): CTDIvol = ( 21.42 ) mGy, DLP = ( 2704.67 ) mGycm TECHNIQUE: Transaxial images were obtained from the dome of the diaphragm to the symphysis pubis without oral contrast, and without intravenous contrast. Sagittal and coronal images were reconstructed. Individualized dose optimization techniques were used for this CT. COMPARISON: None. FINDINGS: Subsegmental atelectases are identified in the right and left lung bases. The visualized portions of the heart are within normal limits. Normal liver. Normal gallbladder and extrahepatic biliary system. Normal spleen. Normal pancreas. Normal bilateral adrenal glands. Bilateral masses are identified the largest is in the right kidney measures 2.5 cm. Normal visualized stomach. Normal small intestine. Normal colon. The appendix is visualized and appears normal. Normal abdominal aorta. Normal inferior vena cava. Normal retroperitoneum. Normal urinary bladder. Normal abdominal wall. There is some gaseous fat stranding on the right side of the abdomen wall near the wound may represent cellulitis. There is no evidence of abscess. CT/Abdomen/Pelvis without Cont IMPRESSION: Open wound in the anterior abdominal wall. There is mild cellulitis. There is no abnormal fluid collections suggest an abscess. Electronically Signed: Mauro Ortiz, at 10:19 EDT Tel , Service support ,
[2019-11-05 09:25] LABS: Hemoglobin A1c 7.3 % (3.8-5.6)
--- NOTE | 2019-11-05 10:23 | PN.ID_ITS ---
Patient Problems: Active and Suspected Problems (Last Updated 11/03/19 @ 17:[address] Toma Naylor MD) Severe sepsis (Acute) Subjective: Feeling better, no fever, no n/v/d, no cough or SOB. - Physical Exam Vitals/I&O's: Vital Signs Temp Pulse Resp BP Pulse Ox 97.7 F L 77 12 143/80 H 96 11/05/19 02:53 11/05/19 07:34 11/05/19 02:53 11/05/19 02:53 11/05/19 09:10 Oxygen Delivery Method Room Air Weight: 112.6 kg Body Mass Index (BMI) 42.6 Finger Stick Blood Glucose 158 Intake and Output for Last 24 Hours 11/03/19 11/04/19 11/05/19 23:59 23:59 23:59 Intake Total 3095.75 / 3095.75 2835 / 2835 1058.33 / 1058.33 Output Total 0 / 0 0 / 0 Balance 3095.75 / 3095.75 2835 / 2835 1058.33 / 1058.33 General: Alert, Cooperative, No apparent distress Lungs: Clear to auscultation, Normal air movement Cardiovascular: Regular rate, Regular Rhythm Abdomen: Soft, Non Tender, Non-Distended Skin: Ulcer/ Wound Microbiology Past 72 Hours 11/04/19 18:02 Mucosa - Nasopharyngeal Coronavirus COVID-19 PCR - Final 11/03/19 19:00 Wound - Abdominal Gram Stain - Final 11/03/19 19:00 Wound - Abdominal Wound Culture - Preliminary Mixed Gram Pos & Gram Neg Org 11/03/19 14:50 Mucosa - Nasopharyngeal Group A Streptococcus Rapid Screen - Preliminary 11/03/19 14:40 Mucosa - Nasopharyngeal Influenza Types A,B Direct FA (MENA) - Final 11/03/19 14:50 Nasal Secretion Rapid RSV (DFA) - Final Laboratory Results 11/04/19 05:53: Diff Path Review Reviewed 11/04/19 10:45: POC Glucose 201 H 11/04/19 16:12: POC Glucose 250 H 11/04/19 21:16: POC Glucose 286 H 11/05/19 05:36: Random Vancomycin 11.2 11/05/19 05:36: WBC 9.2, RBC 3.37 L, Hgb 10.1 L, Hct 32.0 L, MCV 95.0, MCH 30.0, MCHC 31.6 L, RDW Std Deviation 63.0 H, RDW Coeff of Perico 18.4 H, Plt Count 121 L, MPV 12.1 H, Neut % (Auto) Not Reportable, Absolute Neuts (auto) 6.6, Absolute Lymphs (auto) 1.10, Total Counted 100, Neutrophils % (Manual) 68, Band Neutrophils % 4, Lymphocytes % (Manual) 12 L, Monocytes % (Manual) 9, Eosinophils % (Manual) 1, Metamyelocytes % 6 H, Diff Path Review October, Platelet Estimate SLT DEC, Polychromasia 1+, Hypochromasia RARE 11/05/19 05:36: Sodium 134 L, Potassium 4.8, Chloride 102, Carbon Dioxide 20.0 L , Anion Gap 12, BUN 61 H, Creatinine 6.07 H, Estim Creat Clear Calc 8.83, Est GFR (MDRD) Af Amer 9 L, Est GFR (MDRD) Non-Af 8 L, BUN/Creatinine Ratio 10.0, Glucose 210 H, Calcium 8.8, Total Bilirubin 0.40, AST 17, ALT 29, Alkaline Phosphatase 105, Total Protein 5.5 L, Albumin 2.3 L, Globulin 3.2, Albumin/Globulin Ratio 0.7 L, Prealbumin 20.9 11/05/19 05:36: Hemoglobin A1c Cancelled 11/05/19 05:36: Hemoglobin A1c 7.3 H 11/05/19 07:02: POC Glucose 193 H Current Medications Acetaminophen (Tylenol) 650 mg PO Q6H PRN PRN PRN Reason: Pain Score 1-10/Temp > 100.7 F Atorvastatin Calcium (Lipitor) 20 mg PO QHS [facility] Last Admin: 11/04/19 21:04 Dose: 20 mg Documented by: Bisacodyl (Dulcolax) 10 mg RECTAL DAILY PRN PRN PRN Reason: Constipation Calamine/Phenol (Calmoseptine Ointment) 1 applic TOPICAL BID [facility]; Protocol Last Admin: 11/04/19 22:00 Dose: Not Given Documented by: Dextrose (D50w Syringe) 0 gm IV X1 PRN; Protocol PRN Reason: Hypoglycemia Glucagon () 1 mg IM .X1 PRN PRN Reason: Hypoglycemia Sodium Chloride () 1,000 mls @ 100 mls/hr IV .Q10H [facility] Last Admin: 11/05/19 05:38 Dose: 100 mls/hr Documented by: Piperacillin Sod/Tazobactam (Sod 3.375 gm/ Sodium Chloride) 50 mls @ 12.5 mls/hr IV Q12 [facility] Last Infusion: 11/05/19 01:42 Dose: Infused Documented by: Sodium Chloride () 250 mls @ 15 mls/hr IV .[id number] PRN PRN Reason: Saline Flush Sodium Chloride () 250 mls @ 15 mls/hr IV .[id number] PRN PRN Reason: Additional IVPB Infusion Vancomycin IV Pharmacy to Dose (1 ea/ Sodium Chloride) 500 mls @ 250 mls/hr IV X1 PRN; Protocol PRN Reason: Rx to Dose Vancomycin HCl 750 mg/ Sodium (Chloride) 265 mls @ 250 mls/hr IV X1 ONE Stop: 11/05/19 17:03 Insulin Glargine (Lantus (Bkc)) 78 units SC 1100 [facility] Last Admin: 11/04/19 10:46 Dose: 78 units Documented by: Insulin Glargine (Lantus (Bkc)) 20 units SC QHS [facility] Last Admin: 11/04/19 21:17 Dose: 20 units Documented by: Insulin Human Lispro (Humalog Kwikpen (Bk)) 0 unit SC ACHS [facility]; Protocol Last Admin: 11/05/19 07:06 Dose: 2 units Documented by: Magnesium Hydroxide (Milk Of Magnesia) 30 ml PO DAILY PRN PRN Reason: Constipation Midodrine (Proamatine) 10 mg PO DAILY [facility] Montelukast Sodium (Singulair) 10 mg PO DAILY [facility] Last Admin: 11/04/19 09:09 Dose: 10 mg Documented by: Morphine Sulfate () 2 mg IV Q3H PRN PRN PRN Reason: Pain Score 6-10/10 Ondansetron HCl (Zofran) 4 mg IV Q8H PRN PRN PRN Reason: NAUSEA/VOMITING Oxycodone HCl (Oxyir) 10 mg PO Q4H PRN PRN PRN Reason: Pain Score 4-5/10 Pantoprazole Sodium (Protonix) 20 mg PO DAILY [facility] Last Admin: 11/04/19 09:09 Dose: 20 mg Documented by: Polyethylene Glycol (Miralax) 17 gm PO QHS [facility] Last Admin: 11/04/19 21:03 Dose: Not Given Documented by: Prednisone () 30 mg PO DAILY [facility] Last Admin: 11/04/19 09:09 Dose: 30 mg Documented by: Pregabalin (Lyrica) 150 mg PO TID [facility] Last Admin: 11/05/19 05:33 Dose: 150 mg Documented by: Senna/Docusate Sodium (Senokot-S, Leti-Colace) 2 tablet PO BID PRN PRN PRN Reason: Constipation Sertraline HCl (Zoloft) 100 mg PO DAILY [facility] Last Admin: 11/04/19 09:09 Dose: 100 mg Documented by: Sertraline HCl (Zoloft) 25 mg PO DAILY [facility] Last Admin: 11/04/19 09:09 Dose: 25 mg Documented by: Sevelamer Carbonate (Renvela) 2,400 mg PO TIDCM [facility] Last Admin: 11/04/19 16:14 Dose: 2,400 mg Documented by: Simethicone (Mylicon) 80 mg PO TID [facility] Last Admin: 11/05/19 05:35 Dose: 80 mg Documented by: Sodium Chloride () 10 - 40 ml IV UD PRN PRN Reason: SALINE FLUSH Medical Necessity - Tobacco Use Smoking Status: Never smoker Route of nutrition/ use of supplements: [] Nutritional Intake: [] IV Site: [] Vargas Catheter: [] - Assessment/Plan Antibiotics: [] Assessment/Plan: [] Active and Suspected Problems (Last Updated 11/03/19 @ 17:[address] Toma Naylor MD) Severe sepsis (Acute) Improved. On vanc/zosyn. Gets HD --sat. MSSA pcr (+). Dr. Salamanca to see. Low suspicion for covid, test was neg. Will follow
[2019-11-05] MEDS: Midodrine HCl 5 MG Tablet 10 MG PO (10:32)
[2019-11-05] MEDS: Heparin 10,000 UNITS/10 ML Vial 7000 UNITS IV (11:31)
[2019-11-05 11:50] LABS: Bedside Glucose 237 mg/dL (70-110)
--- NOTE | 2019-11-05 11:53 | NURSING ---
Pt is currently getting dialysis. dressing had been changed earlier this am. will come back later this afternoon to change dressing when patient is off dialysis. pt denies needs at this time.
--- NOTE | 2019-11-05 13:43 | PCM.PN.REN ---
Patient Problems: Active and Suspected Problems (Last Updated 11/03/19 @ 17:[address] Toma Nalyor MD) Severe sepsis (Acute) Subjective: seen on dialysis. BP stable. Tolerating fluid removal so far. In isolation for MRSA - Physical Exam Vitals/I&O's: Vital Signs Temp Pulse Resp BP Pulse Ox 97.6 F L 87 18 136/74 H 96 11/05/19 10:38 11/05/19 10:38 11/05/19 10:38 11/05/19 10:38 11/05/19 10:38 Oxygen Delivery Method Room Air Weight: 112.6 kg Body Mass Index (BMI) 42.6 Finger Stick Blood Glucose 158 Intake and Output for Last 24 Hours 11/03/19 11/04/19 11/05/19 23:59 23:59 23:59 Intake Total 3095.75 / 3095.75 2835 / 2835 1058.33 / 1058.33 Output Total 0 / 0 0 / 0 Balance 3095.75 / 3095.75 2835 / 2835 1058.33 / 1058.33 General: Alert, Oriented x3, Cooperative Lungs: Clear to auscultation Abdomen: Soft, Obese Extremities: Edema Psych/Mental Status: Normal Affect, Appropriate, Alert and oriented to time, place, person, mood and affect Microbiology Past 72 Hours 11/03/19 19:00 Wound - Abdominal Gram Stain - Final 11/03/19 19:00 Wound - Abdominal Wound Culture - Preliminary GNR Poss Pseudomonas sp GNR lactose [employer] Gram positive organism 11/03/19 14:50 Mucosa - Nasopharyngeal Group A Streptococcus Rapid Screen - Final 11/04/19 18:02 Mucosa - Nasopharyngeal Coronavirus COVID-19 PCR - Final 11/03/19 14:40 Mucosa - Nasopharyngeal Influenza Types A,B Direct FA (MENA) - Final 11/03/19 14:50 Nasal Secretion Rapid RSV (DFA) - Final Laboratory Results 11/04/19 16:12: POC Glucose 250 H 11/04/19 21:16: POC Glucose 286 H 11/05/19 05:36: Random Vancomycin 11.2 11/05/19 05:36: WBC 9.2, RBC 3.37 L, Hgb 10.1 L, Hct 32.0 L, MCV 95.0, MCH 30.0, MCHC 31.6 L, RDW Std Deviation 63.0 H, RDW Coeff of Perico 18.4 H, Plt Count 121 L, MPV 12.1 H, Neut % (Auto) Not Reportable, Absolute Neuts (auto) 6.6, Absolute Lymphs (auto) 1.10, Total Counted 100, Neutrophils % (Manual) 68, Band Neutrophils % 4, Lymphocytes % (Manual) 12 L, Monocytes % (Manual) 9, Eosinophils % (Manual) 1, Metamyelocytes % 6 H, Diff Path Review October, Platelet Estimate SLT DEC, Polychromasia 1+, Hypochromasia RARE 11/05/19 05:36: Sodium 134 L, Potassium 4.8, Chloride 102, Carbon Dioxide 20.0 L, Anion Gap 12, BUN 61 H, Creatinine 6.07 H, Estim Creat Clear Calc 8.83, Est GFR (MDRD) Af Amer 9 L, Est GFR (MDRD) Non-Af 8 L, BUN/Creatinine Ratio 10.0, Glucose 210 H, Calcium 8.8, Total Bilirubin 0.40, AST 17, ALT 29, Alkaline Phosphatase 105, Total Protein 5.5 L, Albumin 2.3 L, Globulin 3.2, Albumin/Globulin Ratio 0.7 L, Prealbumin 20.9 11/05/19 05:36: Hemoglobin A1c Cancelled 11/05/19 05:36: Hemoglobin A1c 7.3 H 11/05/19 07:02: POC Glucose 193 H 11/05/19 11:37: POC Glucose 237 H Current Medications Acetaminophen (Tylenol) 650 mg PO Q6H PRN PRN PRN Reason: Pain Score 1-10/Temp > 100.7 F Atorvastatin Calcium (Lipitor) 20 mg PO QHS [facility] Last Admin: 11/04/19 21:04 Dose: 20 mg Documented by: Bisacodyl (Dulcolax) 10 mg RECTAL DAILY PRN PRN PRN Reason: Constipation Calamine/Phenol (Calmoseptine Ointment) 1 applic TOPICAL BID [facility]; Protocol Last Admin: 11/04/19 22:00 Dose: Not Given Documented by: Dextrose (D50w Syringe) 0 gm IV X1 PRN; Protocol PRN Reason: Hypoglycemia Glucagon () 1 mg IM .X1 PRN PRN Reason: Hypoglycemia Sodium Chloride () 1,000 mls @ 100 mls/hr IV .Q10H [facility] Last Admin: 11/05/19 05:38 Dose: 100 mls/hr Documented by: Piperacillin Sod/Tazobactam (Sod 3.375 gm/ Sodium Chloride) 50 mls @ 12.5 mls/hr IV Q12 [facility] Last Infusion: 11/05/19 01:42 Dose: Infused Documented by: Sodium Chloride () 250 mls @ 15 mls/hr IV .[id number] PRN PRN Reason: Saline Flush Sodium Chloride () 250 mls @ 15 mls/hr IV .[id number] PRN PRN Reason: Additional IVPB Infusion Vancomycin IV Pharmacy to Dose (1 ea/ Sodium Chloride) 500 mls @ 250 mls/hr IV X1 PRN; Protocol PRN Reason: Rx to Dose Vancomycin HCl 750 mg/ Sodium (Chloride) 265 mls @ 250 mls/hr IV X1 ONE Stop: 11/05/19 17:03 Insulin Glargine (Lantus (Bkc)) 78 units SC 1100 [facility] Last Admin: 11/04/19 10:46 Dose: 78 units Documented by: Insulin Glargine (Lantus (Bkc)) 20 units SC QHS [facility] Last Admin: 11/04/19 21:17 Dose: 20 units Documented by: Insulin Human Lispro (Humalog Kwikpen (Bk)) 0 unit SC ACHS [facility]; Protocol Last Admin: 11/05/19 07:06 Dose: 2 units Documented by: Magnesium Hydroxide (Milk Of Magnesia) 30 ml PO DAILY PRN PRN Reason: Constipation Midodrine (Proamatine) 10 mg PO DAILY [facility] Last Admin: 11/05/19 10:32 Dose: 10 mg Documented by: Montelukast Sodium (Singulair) 10 mg PO DAILY [facility] Last Admin: 11/04/19 09:09 Dose: 10 mg Documented by: Morphine Sulfate () 2 mg IV Q3H PRN PRN PRN Reason: Pain Score 6-10/10 Ondansetron HCl (Zofran) 4 mg IV Q8H PRN PRN PRN Reason: NAUSEA/VOMITING Oxycodone HCl (Oxyir) 10 mg PO Q4H PRN PRN PRN Reason: Pain Score 4-5/10 Pantoprazole Sodium (Protonix) 20 mg PO DAILY [facility] Last Admin: 11/04/19 09:09 Dose: 20 mg Documented by: Polyethylene Glycol (Miralax) 17 gm PO QHS [facility] Last Admin: 11/04/19 21:03 Dose: Not Given Documented by: Prednisone () 30 mg PO DAILY [facility] Last Admin: 11/04/19 09:09 Dose: 30 mg Documented by: Pregabalin (Lyrica) 150 mg PO TID [facility] Last Admin: 11/05/19 05:33 Dose: 150 mg Documented by: Senna/Docusate Sodium (Senokot-S, Leti-Colace) 2 tablet PO BID PRN PRN PRN Reason: Constipation Sertraline HCl (Zoloft) 100 mg PO DAILY [facility] Last Admin: 11/04/19 09:09 Dose: 100 mg Documented by: Sertraline HCl (Zoloft) 25 mg PO DAILY [facility] Last Admin: 11/04/19 09:09 Dose: 25 mg Documented by: Sevelamer Carbonate (Renvela) 2,400 mg PO TIDCM [facility] Last Admin: 11/05/19 10:37 Dose: Not Given Documented by: Simethicone (Mylicon) 80 mg PO TID [facility] Last Admin: 11/05/19 05:35 Dose: 80 mg Documented by: Sodium Chloride () 10 - 40 ml IV UD PRN PRN Reason: SALINE FLUSH Medical Necessity - Tobacco Use Smoking Status: Never smoker Assessment/Plan All Active Problems (Last Updated 11/03/19 @ 17:[address] Toma Naylor MD) Severe sepsis (Acute) 1. ESRD HD , , Sat. Seen on HD. 2. Fever with leukocytosis improved with iv antibx. Blood cx pending. Resp panel negative. COVID negative 3. Chronic Abdominal wound renal dose antibx. Check vanco levels 4. Chronic hypotension. Midodrine daily.
[2019-11-05] MEDS: Heparin 10,000 UNITS/10 ML Vial IV (14:38)
--- NOTE | 2019-11-05 15:54 | DIALYSIS ---
Hemodialysis x 4 hours completed. -3200 ml UF. Pt had hypotension/tachycardia with what appeared afib w/rvr in last 15min of tx. Spontaneously corrected itself with stopping fluid pull. Appear back in SR post tx. See flowsheet for tx details. CVC dressing changed, CVC closed with heparin ti each lumen fill volume. Written/Verbal report to Asuncion MITTAL
--- NOTE | 2019-11-05 16:27 | EKG12_ITS ---
Test Reason : Blood Pressure : / mmHG Vent. Rate : 080 BPM Atrial Rate : 080 BPM P-R Int : 162 ms QRS Dur : 088 ms QT Int : 414 ms P-R-T Axes : 029 -05 076 degrees QTc Int : 477 ms Normal sinus rhythm Normal ECG When compared with ECG of 04-NOV-2019 03:58, Premature atrial complexes are no longer Present Confirmed by MASOOD BENSON MD ([id number]), senior technical editor DONNA PENA ([id number]) on 11/12/2019 3:51:45 PM Referred By: ADOLFO Confirmed By:MASOOD BENSON MD
--- NOTE | 2019-11-05 16:29 | PN_ITS ---
Patient Problems: Active and Suspected Problems (Last Updated 11/03/19 @ 17:[address] Toma Naylor MD) Severe sepsis (Acute) Reason for Visit: Follow-up patient has chronic nonhealing wound of abdominal wall. Severe sepsis. Objective: No fever or chills. Blood pressure controlled. ekg monitor shows normal sinus rhythm with PACs and PVCs. General: Alert, Oriented x3, Cooperative HEENT: Atraumatic, PERRLA, EOMI, Normocephalic Oral: Dry Mucosa Neck: Supple, No JVD, Negative Carotid Bruits. Dialysis catheter. Lungs: Clear to auscultation, No rhonchi, No wheeze, No rales, air entry bilaterally diminished in lung bases Cardiovascular: Regular rate, Regular Rhythm, Normal S1, Normal S2, No murmurs Abdomen: Bowel Sounds Present, Soft, Non Tender, Non-Distended Extremities: Capillary Refill Less than 3 Seconds, Edema Skin: Ulcer/ Wound - Large, subcutaneous deep ulcer on lower abdominal wall from right to left. Ulcer over left lower leg from posterior lateral to medial side. 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 Musculoskeletal: No Tenderness to Palpation of Joints or Extremities Neurological: Cranial nerves II-XII grossly intact Psych/Mental Status: Normal Affect, Appropriate Vitals/I&O's: Vital Signs Temp Pulse Resp BP Pulse Ox 96.8 F L 89 16 151/73 H 95 11/05/19 15:26 11/05/19 15:26 11/05/19 15:26 11/05/19 15:26 11/05/19 14:40 Oxygen Delivery Method Room Air Weight: 248 lb 3.848 oz Body Mass Index (BMI) 42.6 Finger Stick Blood Glucose 158 Intake and Output for Last 24 Hours 11/03/19 11/04/19 11/05/19 23:59 23:59 23:59 Intake Total 3095.75 / 3095.75 2835 / 2835 1058.33 / 1058.33 Output Total 0 / 0 3200 / 3200 Balance 3095.75 / 3095.75 2835 / 2835 -2141.67 / -2141.67 Microbiology Past 72 Hours 11/03/19 14:50 Blood Culture (Wb) - Left Hand Blood Culture - Preliminary No growth in 48 hours. 11/03/19 19:00 Wound - Abdominal Gram Stain - Final 11/03/19 19:00 Wound - Abdominal Wound Culture - Preliminary GNR Poss Pseudomonas sp GNR lactose supervisor inventory merchandising Gram positive organism 11/03/19 14:50 Mucosa - Nasopharyngeal Group A Streptococcus Rapid Screen - Final 11/04/19 18:02 Mucosa - Nasopharyngeal Coronavirus COVID-19 PCR - Final 11/03/19 14:40 Mucosa - Nasopharyngeal Influenza Types A,B Direct FA (MENA) - Final 11/03/19 14:50 Nasal Secretion Rapid RSV (DFA) - Final Laboratory Results 11/04/19 16:12: POC Glucose 250 H 11/04/19 21:16: POC Glucose 286 H 11/05/19 05:36: Random Vancomycin 11.2 11/05/19 05:36: WBC 9.2, RBC 3.37 L, Hgb 10.1 L, Hct 32.0 L, MCV 95.0, MCH 30.0, MCHC 31.6 L, RDW Std Deviation 63.0 H, RDW Coeff of Perico 18.4 H, Plt Count 121 L, MPV 12.1 H, Neut % (Auto) Not Reportable, Absolute Neuts (auto) 6.6, Absolute Lymphs (auto) 1.10, Total Counted 100, Neutrophils % (Manual) 68, Band Neutrophils % 4, Lymphocytes % (Manual) 12 L, Monocytes % (Manual) 9, Eosinophils % (Manual) 1, Metamyelocytes % 6 H, Diff Path Review October, Platelet Estimate SLT DEC, Polychromasia 1+, Hypochromasia RARE 11/05/19 05:36: Sodium 134 L, Potassium 4.8, Chloride 102, Carbon Dioxide 20.0 L , Anion Gap 12, BUN 61 H, Creatinine 6.07 H, Estim Creat Clear Calc 8.83, Est GFR (MDRD) Af Amer 9 L, Est GFR (MDRD) Non-Af 8 L, BUN/Creatinine Ratio 10.0, Glucose 210 H, Calcium 8.8, Total Bilirubin 0.40, AST 17, ALT 29, Alkaline Phosphatase 105, Total Protein 5.5 L, Albumin 2.3 L, Globulin 3.2, Albumin/Globulin Ratio 0.7 L, Prealbumin 20.9 11/05/19 05:36: Hemoglobin A1c Cancelled 11/05/19 05:36: Hemoglobin A1c 7.3 H 11/05/19 07:02: POC Glucose 193 H 11/05/19 11:37: POC Glucose 237 H Current Medications Acetaminophen (Tylenol) 650 mg PO Q6H PRN PRN PRN Reason: Pain Score 1-10/Temp > 100.7 F Atorvastatin Calcium (Lipitor) 20 mg PO QHS [facility] Last Admin: 11/04/19 21:04 Dose: 20 mg Documented by: Bisacodyl (Dulcolax) 10 mg RECTAL DAILY PRN PRN PRN Reason: Constipation Calamine/Phenol (Calmoseptine Ointment) 1 applic TOPICAL BID [facility]; Protocol Last Admin: 11/04/19 22:00 Dose: Not Given Documented by: Dextrose (D50w Syringe) 0 gm IV X1 PRN; Protocol PRN Reason: Hypoglycemia Glucagon () 1 mg IM .X1 PRN PRN Reason: Hypoglycemia Sodium Chloride () 1,000 mls @ 100 mls/hr IV .Q10H [facility] Last Admin: 11/05/19 05:38 Dose: 100 mls/hr Documented by: Piperacillin Sod/Tazobactam (Sod 3.375 gm/ Sodium Chloride) 50 mls @ 12.5 mls/hr IV Q12 [facility] Last Infusion: 11/05/19 01:42 Dose: Infused Documented by: Sodium Chloride () 250 mls @ 15 mls/hr IV .[id number] PRN PRN Reason: Saline Flush Sodium Chloride () 250 mls @ 15 mls/hr IV .[id number] PRN PRN Reason: Additional IVPB Infusion Vancomycin IV Pharmacy to Dose (1 ea/ Sodium Chloride) 500 mls @ 250 mls/hr IV X1 PRN; Protocol PRN Reason: Rx to Dose Vancomycin HCl 750 mg/ Sodium (Chloride) 265 mls @ 250 mls/hr IV X1 ONE Stop: 11/05/19 17:03 Insulin Glargine (Lantus (Bkc)) 78 units SC 1100 [facility] Last Admin: 11/04/19 10:46 Dose: 78 units Documented by: Insulin Glargine (Lantus (Bkc)) 20 units SC QHS [facility] Last Admin: 11/04/19 21:17 Dose: 20 units Documented by: Insulin Human Lispro (Humalog Kwikpen (Bk)) 0 unit SC ACHS [facility]; Protocol Last Admin: 11/05/19 15:04 Dose: Not Given Documented by: Magnesium Hydroxide (Milk Of Magnesia) 30 ml PO DAILY PRN PRN Reason: Constipation Midodrine (Proamatine) 10 mg PO DAILY [facility] Last Admin: 11/05/19 10:32 Dose: 10 mg Documented by: Montelukast Sodium (Singulair) 10 mg PO DAILY [facility] Last Admin: 11/04/19 09:09 Dose: 10 mg Documented by: Morphine Sulfate () 2 mg IV Q3H PRN PRN PRN Reason: Pain Score 6-10/10 Ondansetron HCl (Zofran) 4 mg IV Q8H PRN PRN PRN Reason: NAUSEA/VOMITING Oxycodone HCl (Oxyir) 10 mg PO Q4H PRN PRN PRN Reason: Pain Score 4-5/10 Pantoprazole Sodium (Protonix) 20 mg PO DAILY [facility] Last Admin: 11/04/19 09:09 Dose: 20 mg Documented by: Polyethylene Glycol (Miralax) 17 gm PO QHS [facility] Last Admin: 11/04/19 21:03 Dose: Not Given Documented by: Prednisone () 30 mg PO DAILY [facility] Last Admin: 11/04/19 09:09 Dose: 30 mg Documented by: Pregabalin (Lyrica) 150 mg PO TID [facility] Last Admin: 11/05/19 05:33 Dose: 150 mg Documented by: Senna/Docusate Sodium (Senokot-S, Leti-Colace) 2 tablet PO BID PRN PRN PRN Reason: Constipation Sertraline HCl (Zoloft) 100 mg PO DAILY [facility] Last Admin: 11/04/19 09:09 Dose: 100 mg Documented by: Sertraline HCl (Zoloft) 25 mg PO DAILY [facility] Last Admin: 11/04/19 09:09 Dose: 25 mg Documented by: Sevelamer Carbonate (Renvela) 2,400 mg PO TIDCM [facility] Last Admin: 11/05/19 10:37 Dose: Not Given Documented by: Simethicone (Mylicon) 80 mg PO TID [facility] Last Admin: 11/05/19 05:35 Dose: 80 mg Documented by: Sodium Chloride () 10 - 40 ml IV UD PRN PRN Reason: SALINE FLUSH STROKE Vital Signs/Narrative: Vital Signs Temp Pulse Resp BP Pulse Ox 05/19/20 15:26 96.8 F L 89 16 151/73 H 11/05/19 14:40 96.8 F L 98 18 102/59 L 95 11/05/19 12:35 87 Medical Necessity - Tobacco Use Smoking Status: Never smoker Assessment/Plan All Active Problems (Last Updated 11/03/19 @ 17:[address] 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 Salamanca and had debridement in April 2019. Scheduled wound debridement tomorrow response secondary to COVID-19 pandemic. Previous wound culture grew Klebsiella pneumoniae, Proteus mirabilis, MRSA and corynebacterium. 11/03: Patient had low-grade temperature 100 Fahrenheit on 11/02. Currently on broad-spectrum antibiotic IV vancomycin and Zosyn. Cultures are pending. Rapid RSV, group A strep and influenza tests are negative. Plastic surgery on consult. 11/04: Seen by ID. RENEEID-19 RPR negative. Initial Gram stain of wound culture shows gram-negative iglesia possible Pseudomonas, gram-negative iglesia lactose supervisor inventory merchandising and gram-positive organism. Perioperative course discussed with the patient. #2 indeterminate troponin secondary to infection/severe sepsis: Troponin is minimally elevated at 0.051, likely due to severe sepsis. Patient denied any chest pain. EKG revealed no acute ischemic changes. Repeat last troponin is normal. 2D echo in July 2018 Interpretation Summary Left ventricular systolic function is normal. The estimated ejection fraction is 65 %. Moderate concentric left ventricular hypertrophy. The left atrium is mildly enlarged. There is mild mitral annular calcification. Mild diffuse mitral valve thickening. Mild mitral valve stenosis. Moderate (2+) mitral valve insufficiency. Mild tricuspid valve insufficiency. Right ventricular systolic pressure estimated to be 49 mmHg. There is evidence of diastolic dysfunction. 11/04: Patient still has PACs and PVCs on environmental monitoring specialist. Repeat EKG ordered. #3 ESRD on hemodialysis: Seen by bag loader machine operator Dr. Lew. Continue dialysis as per schedule T//. Midodrine changed to daily #4 type 2 diabetes mellitus: ADA diet, Accu-Cheks, insulin sliding scale, continue home doses of Lantus. #5 chronic inflammatory demyelinating polyneuropathy, paraplegia, physical debility/bedbound: Stable, continue prednisone same dose. #6 Hypotension with history of hypertension: Blood pressure was low in the morning. Midodrine 10 mg daily ordered. #7 history of right leg DVT: hold Eliquis for now because patient may go for surgery, will check INR and pro time. #8 anxiety and depression: Continue Zoloft. #9 chronic anemia: Due to anemia of chronic disease. Admission HB is 12 g/dL, stable at baseline. Platelet count is 125,000, has been fluctuating in the past. No active bleeding. SERGEI globin is between 10 to 11 g%. #10 GERD: Continue PPI. #12 DVT prophylaxis: SCDs. Inpatient E&M: 32690 Subs Hosp L2
[2019-11-05] MEDS: Juven (unflavored) Packet 1 PACKET PO (16:30)
[2019-11-05] MEDS: Menthol/Lanolin/Calamine/Znox 113 GM Tube 1 APPLIC TOPICAL ×2 (16:30→22:06)
[2019-11-05] MEDS: 0.9% Saline Lock 10 ML Syringe IV (16:33)
[2019-11-05] MEDS: Sertraline 50 MG Tablet 25 MG PO (16:39)
[2019-11-05] MEDS: predniSONE 20 MG Tablet 30 MG PO (16:39)
[2019-11-05] MEDS: Pantoprazole Sodium 20 MG Tablet PO (16:39)
[2019-11-05] MEDS: Montelukast 10 MG Tablet PO (16:40)
[2019-11-05] MEDS: Sertraline 100 MG Tablet PO (16:41)
[2019-11-05] MEDS: SEVELAMER CARBONATE 800 MG TABLET 2400 MG PO (16:50)
[2019-11-05 18:10] LABS: Bedside Glucose 197 mg/dL (70-110)
--- NOTE | 2019-11-05 18:12 | PN.SURG_ITS ---
Patient Problems: Active and Suspected Problems (Last Updated 11/03/19 @ 17:[address] Toma Naylor MD) Severe sepsis (Acute) Subjective: Patient is known to me. She [facility] being [facility] for her nonhealing diabetic ulcer right lateral abdominal wall. This resulted from a surgery on 04/26/19 where she underwent surgical preparation right lateral abdominal wall with incision and drainage and excisional debridement skin and subcutaneous tissue and fascia nonhealing infected diabetic necrotic ulcerated abscesses necrotizing soft tissue infection (377 cm2) and abdominal panniculectomy. At the present time, [facility] care [facility] She was recently admitted because of fever and sepsis. Her WBC was 17.1 and has improved to 9.2. Her lactate was 3.3 and has improved to 1.8. Wound culture shows Gram negative rods lactose gynecological assistant, Gram negative rods possible Pseudomonas, and Gram positive organisms. She is currently on Vancomycin and Zosyn. CT Abdomen and Pelvis showed no evidence of abscess. She was scheduled for operative debridement and complex secondary wound closure in early October. The surgery was postponed because of EKG changes and Anesthesia recommended evaluation by Cardiology prior to surgery. Patient states she had a TeleHealth visit from Cardiology. Her HgbA1 is 7.3. I was asked to evaluate her nonhealing diabetic ulcer right lateral abdominal wall for surgical options for treatment. - Physical Exam Vitals/I&O's: Vital Signs Temp Pulse Resp BP Pulse Ox 97.9 F 88 18 128/77 H 95 11/05/19 16:56 11/05/19 16:56 11/05/19 16:56 11/05/19 16:56 11/05/19 16:56 Oxygen Delivery Method Room Air Weight: 248 lb 3.848 oz Body Mass Index (BMI) 42.6 Finger Stick Blood Glucose 158 Intake and Output for Last 24 Hours 11/03/19 11/04/19 11/05/19 23:59 23:59 23:59 Intake Total 3095.75 / 3095.75 2835 / 2835 1508.33 / 1508.33 Output Total 0 / 0 3200 / 3200 Balance 3095.75 / 3095.75 2835 / 2835 -1691.67 / -1691.67 General: Alert, Oriented x3 HEENT: PERRLA, EOMI Oral: Moist Mucosa Neck: Supple Abdomen: Soft, Non-Distended Skin: Ulcer/ Wound - right lateral abdominal wall wound shows good granulation tissue throughout. No purulent drainage noted. Minimal periwound tenderness. No periwound redness. No odor. Measures 22.5 x 4 x 3 cm. On the left abdominal wall are some scattered eschar areas that look like irritation from tape from the dressing. Doesn't look like calciphylaxis. On the left posterior leg is a small eschar that is dry and measures 3.5 x 2.5 cm. Probable pressure related. Does not look like calciphylaxis. Neurological: Cranial nerves II-XII grossly intact Psych/Mental Status: Normal Affect, Appropriate Microbiology Past 72 Hours 11/03/19 14:50 Blood Culture (Wb) - Left Hand Blood Culture - Preliminary No growth in 48 hours. 11/03/19 19:00 Wound - Abdominal Gram Stain - Final 11/03/19 19:00 Wound - Abdominal Wound Culture - Preliminary GNR Poss Pseudomonas sp GNR lactose gynecological assistant Gram positive organism 11/03/19 14:50 Mucosa - Nasopharyngeal Group A Streptococcus Rapid Screen - Final 11/04/19 18:02 Mucosa - Nasopharyngeal Coronavirus COVID-19 PCR - Final 11/03/19 14:40 Mucosa - Nasopharyngeal Influenza Types A,B Direct FA (MENA) - Final 11/03/19 14:50 Nasal Secretion Rapid RSV (DFA) - Final Laboratory Results 11/04/19 21:16: POC Glucose 286 H 11/05/19 05:36: Random Vancomycin 11.2 11/05/19 05:36: WBC 9.2, RBC 3.37 L, Hgb 10.1 L, Hct 32.0 L, MCV 95.0, MCH 30.0, MCHC 31.6 L, RDW Std Deviation 63.0 H, RDW Coeff of Perico 18.4 H, Plt Count 121 L, MPV 12.1 H, Neut % (Auto) Not Reportable, Absolute Neuts (auto) 6.6, Absolute Lymphs (auto) 1.10, Total Counted 100, Neutrophils % (Manual) 68, Band Neutrophils % 4, Lymphocytes % (Manual) 12 L, Monocytes % (Manual) 9, Eosinophils % (Manual) 1, Metamyelocytes % 6 H, Diff Path Review May foll, Platelet Estimate SLT DEC, Polychromasia 1+, Hypochromasia RARE 11/05/19 05:36: Sodium 134 L, Potassium 4.8, Chloride 102, Carbon Dioxide 20.0 L , Anion Gap 12, BUN 61 H, Creatinine 6.07 H, Estim Creat Clear Calc 8.83, Est GFR (MDRD) Af Amer 9 L, Est GFR (MDRD) Non-Af 8 L, BUN/Creatinine Ratio 10.0, Glucose 210 H, Calcium 8.8, Total Bilirubin 0.40, AST 17, ALT 29, Alkaline Phosphatase 105, Total Protein 5.5 L, Albumin 2.3 L, Globulin 3.2, Albumin/Globulin Ratio 0.7 L, Prealbumin 20.9 11/05/19 05:36: Hemoglobin A1c Cancelled 11/05/19 05:36: Hemoglobin A1c 7.3 H 11/05/19 07:02: POC Glucose 193 H 11/05/19 11:37: POC Glucose 237 H 11/05/19 16:27: POC Glucose 197 H Current Medications Acetaminophen (Tylenol) 650 mg PO Q6H PRN PRN PRN Reason: Pain Score 1-10/Temp > 100.7 F Atorvastatin Calcium (Lipitor) 20 mg PO QHS [facility] Last Admin: 11/04/19 21:04 Dose: 20 mg Documented by: Bisacodyl (Dulcolax) 10 mg RECTAL DAILY PRN PRN PRN Reason: Constipation Calamine/Phenol (Calmoseptine Ointment) 1 applic TOPICAL BID [facility]; Protocol Last Admin: 11/05/19 16:30 Dose: 1 applicatio Documented by: Dextrose (D50w Syringe) 0 gm IV X1 PRN; Protocol PRN Reason: Hypoglycemia Glucagon () 1 mg IM .X1 PRN PRN Reason: Hypoglycemia Sodium Chloride () 1,000 mls @ 100 mls/hr IV .Q10H [facility] Last Admin: 11/05/19 05:38 Dose: 100 mls/hr Documented by: Piperacillin Sod/Tazobactam (Sod 3.375 gm/ Sodium Chloride) 50 mls @ 12.5 mls/hr IV Q12 [facility] Last Admin: 11/05/19 16:38 Dose: Not Given Documented by: Sodium Chloride () 250 mls @ 15 mls/hr IV .[id number] PRN PRN Reason: Saline Flush Sodium Chloride () 250 mls @ 15 mls/hr IV .[id number] PRN PRN Reason: Additional IVPB Infusion Vancomycin IV Pharmacy to Dose (1 ea/ Sodium Chloride) 500 mls @ 250 mls/hr IV X1 PRN; Protocol PRN Reason: Rx to Dose Insulin Glargine (Lantus (Bkc)) 78 units SC 1100 [facility] Last Admin: 11/05/19 16:41 Dose: Not Given Documented by: Insulin Glargine (Lantus (Bkc)) 20 units SC QHS [facility] Last Admin: 11/04/19 21:17 Dose: 20 units Documented by: Insulin Human Lispro (Humalog Kwikpen ([facility])) 0 unit SC ACHS [facility]; Protocol Last Admin: 11/05/19 16:50 Dose: 2 units Documented by: Magnesium Hydroxide (Milk Of Magnesia) 30 ml PO DAILY PRN PRN Reason: Constipation Midodrine (Proamatine) 10 mg PO DAILY [facility] Last Admin: 11/05/19 10:32 Dose: 10 mg Documented by: Montelukast Sodium (Singulair) 10 mg PO DAILY [facility] Last Admin: 11/05/19 16:40 Dose: 10 mg Documented by: Morphine Sulfate () 2 mg IV Q3H PRN PRN PRN Reason: Pain Score 6-10/10 Ondansetron HCl (Zofran) 4 mg IV Q8H PRN PRN PRN Reason: NAUSEA/VOMITING Oxycodone HCl (Oxyir) 10 mg PO Q4H PRN PRN PRN Reason: Pain Score 4-5/10 Pantoprazole Sodium (Protonix) 20 mg PO DAILY [facility] Last Admin: 11/05/19 16:39 Dose: 20 mg Documented by: Polyethylene Glycol (Miralax) 17 gm PO QHS [facility] Last Admin: 11/04/19 21:03 Dose: Not Given Documented by: Prednisone () 30 mg PO DAILY [facility] Last Admin: 11/05/19 16:39 Dose: 30 mg Documented by: Pregabalin (Lyrica) 150 mg PO TID [facility] Last Admin: 11/05/19 16:43 Dose: Not Given Documented by: Senna/Docusate Sodium (Senokot-S, Leti-Colace) 2 tablet PO BID PRN PRN PRN Reason: Constipation Sertraline HCl (Zoloft) 100 mg PO DAILY [facility] Last Admin: 11/05/19 16:41 Dose: 100 mg Documented by: Sertraline HCl (Zoloft) 25 mg PO DAILY [facility] Last Admin: 11/05/19 16:39 Dose: 25 mg Documented by: Sevelamer Carbonate (Renvela) 2,400 mg PO TIDCM [facility] Last Admin: 11/05/19 16:50 Dose: 2,400 mg Documented by: Simethicone (Mylicon) 80 mg PO TID [facility] Last Admin: 11/05/19 16:43 Dose: Not Given Documented by: Sodium Chloride () 10 - 40 ml IV UD PRN PRN Reason: SALINE FLUSH Last Admin: 11/05/19 16:33 Dose: 10 ml Documented by: Medical Necessity - Tobacco Use Smoking Status: Never smoker Assessment/Plan All Active Problems (Last Updated 11/03/19 @ 17:[address] Toma Naylor MD) Pressure injury of left leg, unstageable (Acute) Severe sepsis (Acute) 1. Nonhealing diabetic ulcer right lateral abdominal wall. 2. Painful insulin nodules abdominal wall. 3. ESRD requiring dialysis. 4. Diabetes mellitus. 5. Sepsis, resolving. 6. Abdominal panniculus. 7. Abdominal wall skin crease intertrigo. 8. History of MRSA. 9. Pressure injury left posterior leg. 10. Scattered eschar areas left abdominal wall probably from tape. Continue Vancomycin and Zosyn. The wound culture shows Gram negative iglesia lactose gynecological assistant and Gram negative iglesia possible Pseudomonas and Gram positive organisms. [facility] on [facility]. Her last outpatient culture on 08/05/19 showed Proteus mirabilis, MRSA, Coryne bacterium, and Prevotella melaninogenica. She was treated with Augmentin and Zyvox. CT Abdomen reviewed. No abscess seen. There is no urgent need for surgery at this time but would like to get it done in a timely fashion to minimize worsening symptoms. I was planning on taking her to surgery for operative debridement and complex secondary wound closure. Her HgbA1c was 7.3. She saw Cardiology through TeleHealth. I want her to stabilize from this recent episode of fever and sepsis. If IV antibiotics are needed, will schedule the surgery when the infection has stabilized. From my standpoint she can go back to [facility]. Will schedule the surgery sometime next month. Continue dialysis on Monday, , and Monday. After discharge, followup at [facility] in a couple of weeks. Inpatient E&M: 93036 Subs Hosp L2 - ICD-10 - E11.622, T88.9xxA, N18.6, A41.9, E11.9, E65, L30.4, Z86.14, L89.890
[2019-11-05] MEDS: Atorvastatin Calcium 20 MG Tablet PO (22:01)
[2019-11-05 22:15] LABS: Bedside Glucose 391 mg/dL (70-110)
[2019-11-06] VITALS (9 sets, daily range): BP systolic 115–153; BP diastolic 56–85; PULSE 66–84; RESP 18–20; TEMP 36.6–36.9; O2SAT 94–98
[2019-11-06] MEDS: 0.9% Normal Saline 1,000 ML 100 ML IV (00:44)
--- NOTE | 2019-11-06 03:45 | NURSING ---
Abdominal dressing changed at this time as per ordered, wet to dry dressing. Pt tolerated well.
[2019-11-06] MEDS: Pregabalin 75 MG Capsule 150 MG PO ×3 (06:34→21:07)
[2019-11-06 06:48] LABS: Hematocrit 30.7 % (37-47); Hemoglobin 9.7 g/dL (12.0-15.0); Mean Corp Hgb Conc 31.6 g/dL (32-36); Mean Corpuscular Hgb 29.7 pg (27.0-32.0); Mean Corpuscular Volume 93.9 fL (81-99); Mean Platelet Vol. 12.2 fl (6.2-12.0); POSITIVE COUNT YES; POSITIVE MORPHOLOGY YES; Platelet Count 134 K/mm3 (150-450); RBC Distribution Width CV 18.2 % (11.6-14.6); RBC Distribution Width SD 63.2 fl (35.1-43.9); Red Blood Count 3.27 M/mm3 (4.2-5.4); White Blood Count 7.6 K/mm3 (4.4-11.0)
[2019-11-06 07:01] LABS: Differential Indicated MANUAL DIFF
[2019-11-06] MEDS: Insulin Lispro 100 UNIT/ML INSULN.PEN SC ×4 (07:04→22:46)
[2019-11-06 07:10] LABS: Bedside Glucose 276 mg/dL (70-110)
[2019-11-06 07:25] LABS: Absolute Lymphocyte Count 1.13 X10^3/uL (0.83-4.51); Absolute Neutrophil Count 6.1 X10^3/uL (2.0-7.7); Lymphocyte # 1.13 X10^3/ul (4.0); Neutrophil # 6.06 X10^3/uL (2.7-7.7)
[2019-11-06 07:26] LABS: Lymphocyte 15 % (19-41); Monocyte 5 % (0-10); Monocyte# 0.38 X10^3/uL; Neutrophil-Band 6 % (0-5); Neutrophil-Segmented 74 % (47-70); Total Cells Counted 100 (MANUAL DIFF)
[2019-11-06] MEDS: Juven (unflavored) Packet 1 PACKET PO ×2 (08:41→17:59)
[2019-11-06] MEDS: SEVELAMER CARBONATE 800 MG TABLET 2400 MG PO ×3 (08:42→17:59)
[2019-11-06] MEDS: Menthol/Lanolin/Calamine/Znox 113 GM Tube 1 APPLIC TOPICAL ×2 (08:42→21:03)
[2019-11-06] MEDS: Pantoprazole Sodium 20 MG Tablet PO (08:43)
[2019-11-06] MEDS: Midodrine HCl 5 MG Tablet 10 MG PO (08:43)
[2019-11-06] MEDS: predniSONE 20 MG Tablet 30 MG PO (08:43)
[2019-11-06] MEDS: Montelukast 10 MG Tablet PO (08:44)
[2019-11-06] MEDS: Sertraline 50 MG Tablet 25 MG PO (08:44)
[2019-11-06] MEDS: Sertraline 100 MG Tablet PO (09:01)
--- NOTE | 2019-11-06 10:10 | CASEMGMT ---
JOLIE faxed updates to Shay Rudolph. Nadja GARCIA [employer] OUTREACH WORKER
--- NOTE | 2019-11-06 10:16 | CASEMGMT ---
Addendum entered by Nadja Castro 11/06/19 10:35: Patient is not having surgery today and she is ready for discharge. JOLIE called Anjali at [facility] and asked her to please start the pre-cert. Plan: d/c back to [facility] pending insurance authorization. Nadja MADRID Original Note: JOLIE spoke with Anjali at [facility]. Patient will need a pre-cert to return. JOLIE let her know patient is having surgery today. Nadja GARCIA MSW
--- NOTE | 2019-11-06 10:32 | TREXTCAR_ITS ---
- Diet 11/03/19 17:38 Diet: Cardiac: Calorie-Controlled Food consistency:: Regular Liquid Consistency:: Regular/Thin Dietary Modifications:: Low Phosphorous Diet Low Potassium Restriction Fluid Restricted Diet Diet Comments: low sodium, low phos, low potassium with 1500 ml FR How many daily calories?: 2000 calorie - Routine Orders/Code Status Suppository Type: Dulcolax 10mg Suppository Frequency: Daily PRN Routine Lab Work: CBC - EVERY WEEK, - - CMP every week while on antiboitc and follow with Dr Ospina Code Status: Full Code - Wound(s) R lower abdomen Wound Type: non healing wound Dressing Change: Wet to Dry Dressing generalized abdomen Wound Type: scattered scabs/eschar L posterior leg Wound Type: pressure vs. calciphylaxis Dressing Change: Dry Sterile Dressing Coccyx Wound Type: Pressure Injury L buttock Wound Type: Pressure Injury left gluteal crease Wound Type: shearing - Therapies Weight Bearing: Weight bearing as tolerated Extremity Affected:: Bilateral Lower Physical Therapy: Eval and Treat Occupational Therapy: Eval and Treat - Allergies/Procedures Done in Hospital Allergies/Adverse Reactions: Allergies latex Allergy (Verified 10/23/19 10:58) Hives Sulfa (Sulfonamide Antibiotics) Allergy (Verified 10/23/19 10:58) Rash codeine Adverse Reaction (Verified 10/23/19 10:58) Confusion - Type of Care/Length of Stay Estimated LOS: Convalescent Care Less Than 30 days Type of Care Needed: Skilled Rehab Potential: Fair Prognosis: Fair - Additional Orders/Day of Discharge Additional Orders: Follow-up in wound center every week. Day of Discharge: 11/07/19 - Dietary and Speech Recommendations Dietitian Recommendations/Changes: Will change diet order to 2000 calorie; cardiac; low sodium, low K+, low phos with 1500 ml fluid restriction--protein restriction not indicated with HD & pt needs extra protein for wound healing. Will add Fernando BID for wound healing. Will d/c glucerna shake w/ medpass to welch it kcal. - Follow Up Care Primary Care Physician: Marcela Kerr MD [Primary Care Provider] - Please follow up with your Primary Care Physician in: [place] 2 weeks Please Follow Up With: Terrence Salamanca MD When: in 2 weeks for abd wall and sacral wound for closure Please Follow Up With: Bairon Ospina MD When: prn for antibiotic issues
--- NOTE | 2019-11-06 11:16 | PHA.DC.MR ---
Pharmacy Service has performed discharge medication reconciliation for this patient upon transfer to [facility]. The patient's discharge medication list was reviewed for discrepancies and discrepancies were resolved. Home Medications Montelukast [Singulair] 10 mg PO DAILY 10/29/13 Sertraline HCl 125 mg PO DAILY 06/14/18 Pantoprazole Sodium [Protonix] 20 mg PO DAILY 06/20/18 predniSONE tablet 30 mg PO DAILY 10/04/18 Sevelamer Carbonate [Renvela] 2,400 mg PO TIDCM 01/19/19 Insulin Lispro [Admelog Solostar] 7 unit SQ QHS 04/25/19 Apixaban [Eliquis] 5 mg PO BID #90 tab 05/03/19 Magnesium Hydroxide [Milk Of Magnesia] 30 ml PO DAILY PRN #1 udc 05/03/19 Arginine/Ascorbate Sod/Pedro AC [Arginaid Powder] 1 ea PO BID 05/27/19 Bisacodyl [Dulcolax] 10 mg RECTAL DAILY PRN PRN 05/27/19 Sennosides/Docusate Sodium [Senna Plus 8.6-50 mg Softgel] 2 ea PO BID 05/27/19 SimETHICONE [Mylicon] 80 mg PO TID 06/27/19 Insulin Lispro [Admelog Solostar] 15 unit SQ BREAKFAST 09/18/19 Insulin Lispro [Admelog Solostar] 28 unit SQ DINNER 09/18/19 Acetaminophen [Tylenol Tablet] 650 mg PO Q6H PRN PRN tab 09/23/19 Menthol/Lanolin/Calamine/Znox [Calmoseptine Ointment] 1 applic TOPICAL TID tube 09/23/19 Sodium Hypochlorite [Dakins Solution 0.25% (1/2 Strength)] 1 applic TOPICAL BID bottle 09/23/19 Amlodipine Besylate [Norvasc] 2.5 mg PO SUMOWEFR 10/18/19 Insulin Lispro [Admelog Solostar] 28 unit SQ LUNCH 10/18/19 Polyethylene Glycol 3350 [Miralax] 17 gm PO QHS 10/18/19 Vit E Acet/Gly/Dimeth/Water [Cetaphil Moisturizing Lotion] 237 ml TP DAILY 10/18/19 atorvastatin 20 mg tablet 20 mg PO QHS 10/23/19 pregabalin 150 mg capsule 150 mg PO TID 10/23/19 Activated Charcoal [Charcoal] 200 mg PO PRN PRN 11/03/19 Multivit-Min/Iron/Folic/Lutein [Centrum Silver Women Tablet] 1 ea PO DAILY 11/03/19 Insulin Glargine [Lantus SoloStar Pen] 80 units SUBCUT DAILY #0 11/06/19 Insulin Glargine,Hum.rec.anlog [Radha Balderrama U-100] 20 unit SUBCUT QHS #0 11/06/19
[2019-11-06 11:28] LABS: Pathologist Review Reviewed
[2019-11-06 11:34] LABS: Pathologist Review Reviewed
[2019-11-06 12:00] LABS: Bedside Glucose 320 mg/dL (70-110)
--- NOTE | 2019-11-06 13:05 | PN.SURG_ITS ---
Patient Problems: Active and Suspected Problems (Last Updated 11/03/19 @ 17:[address] Toma Naylor MD) Severe sepsis (Acute) Subjective: Patient is known to me. She [facility] for her nonhealing diabetic ulcer right lateral abdominal wall. This resulted from a surgery on 04/26/19 where she underwent surgical preparation right lateral abdominal wall with incision and drainage and excisional debridement skin and subcutaneous tissue and fascia nonhealing infected diabetic necrotic ulcerated abscesses necrotizing soft tissue infection (377 cm2) and abdominal panniculectomy. At the present time, [facility] She was recently admitted because of fever and sepsis. Her WBC was 17.1 and has improved to 9.2. Her lactate was 3.3 and has improved to 1.8. Wound culture shows Gram negative rods lactose roguer, Gram negative rods possible Pseudomonas, and Gram positive organisms. She is currently on Vancomycin and Zosyn. CT Abdomen and Pelvis showed no evidence of abscess. She was scheduled for operative debridement and complex secondary wound closure in early October. The surgery was postponed because of EKG changes and Anesthesia recommended evaluation by Cardiology prior to surgery. Patient states she had a TeleHealth visit from Cardiology. Her HgbA1 is 7.3. I was asked to evaluate her nonhealing diabetic ulcer right lateral abdominal wall for surgical options for treatment. Objective: Patient sitting up in bed eating lunch. Denies any complaints at this time. - Physical Exam Vitals/I&O's: Vital Signs Temp Pulse Resp BP Pulse Ox 98.4 F 75 20 H 115/56 L 94 11/06/19 11:00 11/06/19 11:00 11/06/19 11:00 11/06/19 11:11/06/19 11:00 Oxygen Delivery Method Room Air Weight: 266 lb 15.677 oz Body Mass Index (BMI) 42.6 Finger Stick Blood Glucose 158 Intake and Output for Last 24 Hours 11/04/19 11/05/19 11/06/19 23:59 23:59 23:59 Intake Total 2835 / 2835 2223.33 / 2223.33 1200 / 1200 Output Total 0 / 0 3200 / 3200 0 / 0 Balance 2835 / 2835 -976.67 / -976.67 1200 / 1200 General: Alert, Oriented x3, Cooperative HEENT: Atraumatic Oral: Moist Mucosa Lungs: Normal air movement Cardiovascular: Regular rate Abdomen: Obese Extremities: Capillary Refill Less than 3 Seconds Skin: Ulcer/ Wound - Lower right abdomen. Not observed. Dressing intact. Musculoskeletal: No Tenderness to Palpation of Joints or Extremities Neurological: Neuro grossly intact Psych/Mental Status: Normal Affect, Appropriate Microbiology Past 72 Hours 11/03/19 13:50 Blood Culture (Wb) - Anticubital Left Blood Culture - Preliminary No growth in 48 hours. 11/03/19 19:00 Wound - Abdominal Gram Stain - Final 11/03/19 19:00 Wound - Abdominal Wound Culture - Preliminary Proteus mirabilis GNR lactose roguer Gram positive organism 11/03/19 14:50 Blood Culture (Wb) - Left Hand Blood Culture - Preliminary No growth in 48 hours. 11/03/19 14:50 Mucosa - Nasopharyngeal Group A Streptococcus Rapid Screen - Final 11/04/19 18:02 Mucosa - Nasopharyngeal Coronavirus COVID-19 PCR - Final 11/03/19 14:40 Mucosa - Nasopharyngeal Influenza Types A,B Direct FA (MENA) - Final 11/03/19 14:50 Nasal Secretion Rapid RSV (DFA) - Final Laboratory Results 11/05/19 05:36: Diff Path Review Reviewed 11/05/19 16:27: POC Glucose 197 H 11/05/19 22:04: POC Glucose 391 H 11/06/19 05:48: WBC 7.6, RBC 3.27 L, Hgb 9.7 L, Hct 30.7 L, MCV 93.9, MCH 29.7, MCHC 31.6 L, RDW Std Deviation 63.2 H, RDW Coeff of Perico 18.2 H, Plt Count 134 L, MPV 12.2 H, Neut % (Auto) Not Reportable, Absolute Neuts (auto) 6.1, Absolute Lymphs (auto) 1.13, Total Counted 100, Neutrophils % (Manual) 74 H, Band Neutrophils % 6 H, Lymphocytes % (Manual) 15 L, Monocytes % (Manual) 5, Diff Path Review Reviewed 11/06/19 07:00: POC Glucose 276 H 11/06/19 11:48: POC Glucose 320 H Current Medications Acetaminophen (Tylenol) 650 mg PO Q6H PRN PRN PRN Reason: Pain Score 1-10/Temp > 100.7 F Atorvastatin Calcium (Lipitor) 20 mg PO QHS [facility] Last Admin: 11/05/19 22:01 Dose: 20 mg Documented by: Bisacodyl (Dulcolax) 10 mg RECTAL DAILY PRN PRN PRN Reason: Constipation Calamine/Phenol (Calmoseptine Ointment) 1 applic TOPICAL BID [facility]; Protocol Last Admin: 11/06/19 08:42 Dose: 1 applicatio Documented by: Dextrose (D50w Syringe) 0 gm IV X1 PRN; Protocol PRN Reason: Hypoglycemia Glucagon () 1 mg IM .X1 PRN PRN Reason: Hypoglycemia Sodium Chloride () 1,000 mls @ 100 mls/hr IV .Q10H [facility] Last Admin: 11/06/19 00:44 Dose: 100 mls/hr Documented by: Piperacillin Sod/Tazobactam (Sod 3.375 gm/ Sodium Chloride) 50 mls @ 12.5 mls/hr IV Q12 [facility] Last Admin: 11/06/19 08:41 Dose: 12.5 mls/hr Documented by: Sodium Chloride () 250 mls @ 15 mls/hr IV .[id number] PRN PRN Reason: Saline Flush Sodium Chloride () 250 mls @ 15 mls/hr IV .[id number] PRN PRN Reason: Additional IVPB Infusion Vancomycin IV Pharmacy to Dose (1 ea/ Sodium Chloride) 500 mls @ 250 mls/hr IV X1 PRN; Protocol PRN Reason: Rx to Dose Insulin Glargine (Lantus (Bkc)) 78 units SC 1100 [facility] Last Admin: 11/06/19 11:49 Dose: 78 units Documented by: Insulin Glargine (Lantus (Bkc)) 20 units SC QHS [facility] Last Admin: 11/05/19 22:07 Dose: 20 units Documented by: Insulin Human Lispro (Humalog Kwikpen (Bkc)) 0 unit SC ACHS [facility]; Protocol Last Admin: 11/06/19 11:49 Dose: 5 units Documented by: Magnesium Hydroxide (Milk Of Magnesia) 30 ml PO DAILY PRN PRN Reason: Constipation Midodrine (Proamatine) 10 mg PO DAILY [facility] Last Admin: 11/06/19 08:43 Dose: 10 mg Documented by: Montelukast Sodium (Singulair) 10 mg PO DAILY [facility] Last Admin: 11/06/19 08:44 Dose: 10 mg Documented by: Morphine Sulfate () 2 mg IV Q3H PRN PRN PRN Reason: Pain Score 6-10/10 Ondansetron HCl (Zofran) 4 mg IV Q8H PRN PRN PRN Reason: NAUSEA/VOMITING Oxycodone HCl (Oxyir) 10 mg PO Q4H PRN PRN PRN Reason: Pain Score 4-5/10 Pantoprazole Sodium (Protonix) 20 mg PO DAILY [facility] Last Admin: 11/06/19 08:43 Dose: 20 mg Documented by: Polyethylene Glycol (Miralax) 17 gm PO QHS [facility] Last Admin: 11/05/19 22:00 Dose: Not Given Documented by: Prednisone () 30 mg PO DAILY [facility] Last Admin: 11/06/19 08:43 Dose: 30 mg Documented by: Pregabalin (Lyrica) 150 mg PO TID [facility] Last Admin: 11/06/19 06:34 Dose: 150 mg Documented by: Senna/Docusate Sodium (Senokot-S, Leti-Colace) 2 tablet PO BID PRN PRN PRN Reason: Constipation Sertraline HCl (Zoloft) 100 mg PO DAILY [facility] Last Admin: 11/06/19 09:01 Dose: 100 mg Documented by: Sertraline HCl (Zoloft) 25 mg PO DAILY [facility] Last Admin: 11/06/19 08:44 Dose: 25 mg Documented by: Sevelamer Carbonate (Renvela) 2,400 mg PO TIDCM [facility] Last Admin: 11/06/19 11:51 Dose: 2,400 mg Documented by: Simethicone (Mylicon) 80 mg PO TID [facility] Last Admin: 11/06/19 06:17 Dose: 80 mg Documented by: Sodium Chloride () 10 - 40 ml IV UD PRN PRN Reason: SALINE FLUSH Last Admin: 11/05/19 16:33 Dose: 10 ml Documented by: Medical Necessity - Tobacco Use Smoking Status: Never smoker Assessment/Plan All Active Problems (Last Updated 11/03/19 @ 17:[address] Toma Naylor MD) Pressure injury of left leg, unstageable (Acute) Severe sepsis (Acute) Pressure injury of left leg, unstageable (Acute) Severe sepsis (Acute) 1. Nonhealing diabetic ulcer right lateral abdominal wall. 2. Painful insulin nodules abdominal wall. 3. ESRD requiring dialysis. 4. Diabetes mellitus. 5. Sepsis, resolving. 6. Abdominal panniculus. 7. Abdominal wall skin crease intertrigo. 8. History of MRSA. 9. Pressure injury left posterior leg. 10. Scattered eschar areas left abdominal wall probably from tape. Continue Vancomycin and Zosyn. The preliminary wound culture shows Proteus mirabilis, GNR lactose roguer, Gram positive organism. ID has placed her on Linezolid and Omnicef. Her last outpatient culture on 08/05/19 showed Proteus mirabilis, MRSA, Corynebacterium, and Prevotella melaninogenica. She was treated with Augmentin and Zyvox. CT Abdomen reviewed. No abscess seen. There is no urgent need for surgery at this time but would like to get it done in a timely fashion to minimize worsening symptoms. I was planning on taking her to surgery for operative debridement and complex secondary wound closure. Her HgbA1c was 7.3. She saw Cardiology through TeleHealth. I want her to stabilize from this recent episode of fever and sepsis. If IV antibiotics are needed, will schedule the surgery when the infection has stabilized. From my standpoint she can go back to [facility]. She states that she is supposed to be transferred back to [facility] today. Will schedule the surgery sometime next month. Continue dialysis on Monday, , and Monday. After discharge, followup at [facility] on December 01. Inpatient E&M: [id number] [facility] L1
--- NOTE | 2019-11-06 16:21 | PCM.PN.HOSP ---
Patient Problems: Active and Suspected Problems (Last Updated 11/03/19 @ 17:[address] Toma Naylor MD) Severe sepsis (Acute) Objective: Blood pressure is controlled. No hypotension. Surgery is postponed in November as per plastic surgery for better control of infection. There is no abscess in the wound therefore no urgency for surgery as per surgeon. On exam General: Alert, Oriented x3, Cooperative HEENT: Atraumatic, PERRLA, EOMI, Normocephalic Oral: Dry Mucosa Neck: Supple, No JVD, Negative Carotid Bruits. Dialysis catheter. Lungs: Clear to auscultation, No rhonchi, No wheeze, No rales, air entry bilaterally diminished in lung bases Cardiovascular: Regular rate, Regular Rhythm, Normal S1, Normal S2, No murmurs Abdomen: Bowel Sounds Present, Soft, Non Tender, Non-Distended Extremities: Capillary Refill Less than 3 Seconds, Edema Skin: Ulcer/ Wound - Large, subcutaneous deep ulcer on lower abdominal wall from right to left. Ulcer over left lower leg from posterior lateral to medial side. 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 Musculoskeletal: No Tenderness to Palpation of Joints or Extremities Neurological: Cranial nerves II-XII grossly intact Psych/Mental Status: Normal Affect, Appropriate Vitals/I&O's: Vital Signs Temp Pulse Resp BP Pulse Ox 98.4 F 81 20 H 115/56 L 94 11/06/19 11:00 11/06/19 14:57 11/06/19 11:00 11/06/19 11:00 11/06/19 11:00 Oxygen Delivery Method Room Air Weight: 266 lb 15.677 oz Body Mass Index (BMI) 42.6 Finger Stick Blood Glucose 158 Intake and Output for Last 24 Hours 11/04/19 11/05/19 11/06/19 23:59 23:59 23:59 Intake Total 2835 / 2835 2223.33 / 2223.33 2730 / 2730 Output Total 0 / 0 3200 / 3200 0 / 0 Balance 2835 / 2835 -976.67 / -976.67 2730 / 2730 Microbiology Past 72 Hours 11/03/19 19:00 Wound - Abdominal Gram Stain - Final 11/03/19 19:00 Wound - Abdominal Wound Culture - Preliminary Proteus mirabilis GNR lactose duct maker Coag Negative 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 11/03/19 14:50 Blood Culture (Wb) - Left Hand Blood Culture - Preliminary No growth in 48 hours. 11/03/19 14:50 Mucosa - Nasopharyngeal Group A Streptococcus Rapid Screen - Final 11/04/19 18:02 Mucosa - Nasopharyngeal Coronavirus COVID-19 PCR - Final 11/03/19 14:40 Mucosa - Nasopharyngeal Influenza Types A,B Direct FA (MENA) - Final 11/03/19 14:50 Nasal Secretion Rapid RSV (DFA) - Final Laboratory Results 11/05/19 05:36: Diff Path Review Reviewed 11/05/19 16:27: POC Glucose 197 H 11/05/19 22:04: POC Glucose 391 H 11/06/19 05:48: WBC 7.6, RBC 3.27 L, Hgb 9.7 L, Hct 30.7 L, MCV 93.9, MCH 29.7, MCHC 31.6 L, RDW Std Deviation 63.2 H, RDW Coeff of Perico 18.2 H, Plt Count 134 L, MPV 12.2 H, Neut % (Auto) Not Reportable, Absolute Neuts (auto) 6.1, Absolute Lymphs (auto) 1.13, Total Counted 100, Neutrophils % (Manual) 74 H, Band Neutrophils % 6 H, Lymphocytes % (Manual) 15 L, Monocytes % (Manual) 5, Diff Path Review Reviewed 11/06/19 07:00: POC Glucose 276 H 11/06/19 11:48: POC Glucose 320 H Current Medications Acetaminophen (Tylenol) 650 mg PO Q6H PRN PRN PRN Reason: Pain Score 1-10/Temp > 100.7 F Atorvastatin Calcium (Lipitor) 20 mg PO QHS [facility] Last Admin: 11/05/19 22:01 Dose: 20 mg Documented by: Bisacodyl (Dulcolax) 10 mg RECTAL DAILY PRN PRN PRN Reason: Constipation Calamine/Phenol (Calmoseptine Ointment) 1 applic TOPICAL BID [facility]; Protocol Last Admin: 11/06/19 08:42 Dose: 1 applicatio Documented by: Dextrose (D50w Syringe) 0 gm IV X1 PRN; Protocol PRN Reason: Hypoglycemia Glucagon () 1 mg IM .X1 PRN PRN Reason: Hypoglycemia Piperacillin Sod/Tazobactam (Sod 3.375 gm/ Sodium Chloride) 50 mls @ 12.5 mls/hr IV Q12 [facility] Last Infusion: 11/06/19 14:12 Dose: Infused Documented by: Sodium Chloride () 250 mls @ 15 mls/hr IV .[id number] PRN PRN Reason: Saline Flush Sodium Chloride () 250 mls @ 15 mls/hr IV .[id number] PRN PRN Reason: Additional IVPB Infusion Vancomycin IV Pharmacy to Dose (1 ea/ Sodium Chloride) 500 mls @ 250 mls/hr IV X1 PRN; Protocol PRN Reason: Rx to Dose Insulin Glargine (Lantus (Bkc)) 78 units SC 1100 [facility] Last Admin: 11/06/19 11:49 Dose: 78 units Documented by: Insulin Glargine (Lantus (Bkc)) 20 units SC QHS [facility] Last Admin: 11/05/19 22:07 Dose: 20 units Documented by: Insulin Human Lispro (Humalog Kwikpen (Bk)) 0 unit SC ACHS [facility]; Protocol Last Admin: 11/06/19 11:49 Dose: 5 units Documented by: Magnesium Hydroxide (Milk Of Magnesia) 30 ml PO DAILY PRN PRN Reason: Constipation Midodrine (Proamatine) 10 mg PO DAILY [facility] Last Admin: 11/06/19 08:43 Dose: 10 mg Documented by: Montelukast Sodium (Singulair) 10 mg PO DAILY [facility] Last Admin: 11/06/19 08:44 Dose: 10 mg Documented by: Morphine Sulfate () 2 mg IV Q3H PRN PRN PRN Reason: Pain Score 6-10/10 Ondansetron HCl (Zofran) 4 mg IV Q8H PRN PRN PRN Reason: NAUSEA/VOMITING Oxycodone HCl (Oxyir) 10 mg PO Q4H PRN PRN PRN Reason: Pain Score 4-5/10 Pantoprazole Sodium (Protonix) 20 mg PO DAILY [facility] Last Admin: 11/06/19 08:43 Dose: 20 mg Documented by: Polyethylene Glycol (Miralax) 17 gm PO QHS [facility] Last Admin: 11/05/19 22:00 Dose: Not Given Documented by: Prednisone () 30 mg PO DAILY [facility] Last Admin: 11/06/19 08:43 Dose: 30 mg Documented by: Pregabalin (Lyrica) 150 mg PO TID [facility] Last Admin: 11/06/19 14:47 Dose: 150 mg Documented by: Senna/Docusate Sodium (Senokot-S, Leti-Colace) 2 tablet PO BID PRN PRN PRN Reason: Constipation Sertraline HCl (Zoloft) 100 mg PO DAILY [facility] Last Admin: 11/06/19 09:01 Dose: 100 mg Documented by: Sertraline HCl (Zoloft) 25 mg PO DAILY [facility] Last Admin: 11/06/19 08:44 Dose: 25 mg Documented by: Sevelamer Carbonate (Renvela) 2,400 mg PO TIDCM [facility] Last Admin: 11/06/19 11:51 Dose: 2,400 mg Documented by: Simethicone (Mylicon) 80 mg PO TID [facility] Last Admin: 11/06/19 14:47 Dose: 80 mg Documented by: Sodium Chloride () 10 - 40 ml IV UD PRN PRN Reason: SALINE FLUSH Last Admin: 11/05/19 16:33 Dose: 10 ml Documented by: STROKE Vital Signs/Narrative: Vital Signs Pulse 11/06/19 14:57 81 Medical Necessity - Tobacco Use Smoking Status: Never smoker Assessment/Plan All Active Problems (Last Updated 11/03/19 @ 17:[address] 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 Salamanca and had debridement in April 2019. Scheduled wound debridement tomorrow response secondary to COVID-19 pandemic. Previous wound culture grew Klebsiella pneumoniae, Proteus mirabilis, MRSA and corynebacterium. 11/03: Patient had low-grade temperature 100 Fahrenheit on 11/02. Currently on broad-spectrum antibiotic IV vancomycin and Zosyn. Cultures are pending. Rapid RSV, group A strep and influenza tests are negative. Plastic surgery on consult. 11/04: Seen by ID. COVID-19 RPR negative. Initial Gram stain of wound culture shows gram-negative iglesia possible Pseudomonas, gram-negative iglesia lactose duct maker and gram-positive organism. Perioperative course discussed with the patient. 11/05: Wound culture from 11/02 shows Proteus mirabilis, gram-negative iglesia lactose duct maker and coagulase-negative staph. Seen by ID. He wrote prescription for linezolid and Omnicef. #2 indeterminate troponin secondary to infection/severe sepsis: Troponin is minimally elevated at 0.051, likely due to severe sepsis. Patient denied any chest pain. EKG revealed no acute ischemic changes. Repeat last troponin is normal. 2D echo in July 2018 Interpretation Summary Left ventricular systolic function is normal. The estimated ejection fraction is 65 %. Moderate concentric left ventricular hypertrophy. The left atrium is mildly enlarged. There is mild mitral annular calcification. Mild diffuse mitral valve thickening. Mild mitral valve stenosis. Moderate (2+) mitral valve insufficiency. Mild tricuspid valve insufficiency. Right ventricular systolic pressure estimated to be 49 mmHg. There is evidence of diastolic dysfunction. 11/04: Patient still has PACs and PVCs on equipment monitor phototypesetting. Repeat EKG showed normal sinus rhythm. 11/05: monitor car operator shows PVCs. Hemodynamically stable. #3 ESRD on hemodialysis: Seen by assembler body Dr. Lew. Continue dialysis as per schedule T//. Midodrine changed to daily #4 type 2 diabetes mellitus: ADA diet, Accu-Cheks, insulin sliding scale, continue home doses of Lantus. #5 chronic inflammatory demyelinating polyneuropathy, paraplegia, physical debility/bedbound: Stable, continue prednisone same dose. #6 Hypotension with history of hypertension: Blood pressure was low in the morning. Midodrine 10 mg daily ordered. #7 history of right leg DVT: hold Eliquis for now because patient may go for surgery, will check INR and pro time. #8 anxiety and depression: Continue Zoloft. #9 chronic anemia: Due to anemia of chronic disease. Admission HB is 12 g/dL, stable at baseline. Platelet count is 125,000, has been fluctuating in the past. No active bleeding. SERGEI globin is between 10 to 11 g%. #10 GERD: Continue PPI. #12 DVT prophylaxis: SCDs. Pending precertification for discharge to SNF. Inpatient E&M: [id number] Subs Hosp L2
[2019-11-06 17:10] LABS: Bedside Glucose 393 mg/dL (70-110)
--- NOTE | 2019-11-06 17:19 | PN.ID_ITS ---
Patient Problems: Active and Suspected Problems (Last Updated 11/03/19 @ 17:[address] Toma Naylor MD) Severe sepsis (Acute) Subjective: Feeling ok, no fever, no abd pain - Physical Exam Vitals/I&O's: Vital Signs Temp Pulse Resp BP Pulse Ox 98.4 F 81 20 H 115/56 L 94 11/06/19 11:00 11/06/19 14:57 11/06/19 11:00 11/06/19 11:00 11/06/19 11:00 Oxygen Delivery Method Room Air Weight: 121.1 kg Body Mass Index (BMI) 42.6 Finger Stick Blood Glucose 158 Intake and Output for Last 24 Hours 11/04/19 11/05/19 11/06/19 23:59 23:59 23:59 Intake Total 2835 / 2835 2223.33 / 2223.33 2730 / 2730 Output Total 0 / 0 3200 / 3200 0 / 0 Balance 2835 / 2835 -976.67 / -976.67 2730 / 2730 General: Alert, Cooperative, No apparent distress Lungs: Clear to auscultation, Normal air movement Cardiovascular: Regular rate, Regular Rhythm Abdomen: Soft, Non Tender, Non-Distended Skin: Ulcer/ Wound Microbiology Past 72 Hours 11/03/19 19:00 Wound - Abdominal Gram Stain - Final 11/03/19 19:00 Wound - Abdominal Wound Culture - Preliminary Proteus mirabilis 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 11/03/19 14:50 Blood Culture (Wb) - Left Hand Blood Culture - Preliminary No growth in 48 hours. 11/03/19 14:50 Mucosa - Nasopharyngeal Group A Streptococcus Rapid Screen - Final 11/04/19 18:02 Mucosa - Nasopharyngeal Coronavirus COVID-19 PCR - Final 11/03/19 14:40 Mucosa - Nasopharyngeal Influenza Types A,B Direct FA (MENA) - Final 11/03/19 14:50 Nasal Secretion Rapid RSV (DFA) - Final Laboratory Results 11/05/19 05:36: Diff Path Review Reviewed 11/05/19 16:27: POC Glucose 197 H 11/05/19 22:04: POC Glucose 391 H 11/06/19 05:48: WBC 7.6, RBC 3.27 L, Hgb 9.7 L, Hct 30.7 L, MCV 93.9, MCH 29.7, MCHC 31.6 L, RDW Std Deviation 63.2 H, RDW Coeff of Perico 18.2 H, Plt Count 134 L, MPV 12.2 H, Neut % (Auto) Not Reportable, Absolute Neuts (auto) 6.1, Absolute Lymphs (auto) 1.13, Total Counted 100, Neutrophils % (Manual) 74 H, [place] trophils % 6 H, Lymphocytes % (Manual) 15 L, Monocytes % (Manual) 5, Diff Path Review Reviewed 11/06/19 07:00: POC Glucose 276 H 11/06/19 11:48: POC Glucose 320 H 11/06/19 16:55: POC Glucose 393 H Current Medications Acetaminophen (Tylenol) 650 mg PO Q6H PRN PRN PRN Reason: Pain Score 1-10/Temp > 100.7 F Atorvastatin Calcium (Lipitor) 20 mg PO QHS [facility] Last Admin: 11/05/19 22:01 Dose: 20 mg Documented by: Bisacodyl (Dulcolax) 10 mg RECTAL DAILY PRN PRN PRN Reason: Constipation Calamine/Phenol (Calmoseptine Ointment) 1 applic TOPICAL BID [facility]; Protocol Last Admin: 11/06/19 08:42 Dose: 1 applicatio Documented by: Dextrose (D50w Syringe) 0 gm IV X1 PRN; Protocol PRN Reason: Hypoglycemia Glucagon () 1 mg IM .X1 PRN PRN Reason: Hypoglycemia Piperacillin Sod/Tazobactam (Sod 3.375 gm/ Sodium Chloride) 50 mls @ 12.5 mls/hr IV Q12 [facility] Last Infusion: 11/06/19 14:12 Dose: Infused Documented by: Sodium Chloride () 250 mls @ 15 mls/hr IV .[id number] PRN PRN Reason: Saline Flush Sodium Chloride () 250 mls @ 15 mls/hr IV .[id number] PRN PRN Reason: Additional IVPB Infusion Vancomycin IV Pharmacy to Dose (1 ea/ Sodium Chloride) 500 mls @ 250 mls/hr IV X1 PRN; Protocol PRN Reason: Rx to Dose Insulin Glargine (Lantus (Bkc)) 78 units SC 1100 [facility] Last Admin: 11/06/19 11:49 Dose: 78 units Documented by: Insulin Glargine (Lantus (Bkc)) 20 units SC QHS [facility] Last Admin: 11/05/19 22:07 Dose: 20 units Documented by: Insulin Human Lispro (Humalog Kwikpen (Bk)) 0 unit SC ACHS [facility]; Protocol Last Admin: 11/06/19 11:49 Dose: 5 units Documented by: Magnesium Hydroxide (Milk Of Magnesia) 30 ml PO DAILY PRN PRN Reason: Constipation Midodrine (Proamatine) 10 mg PO DAILY [facility] Last Admin: 11/06/19 08:43 Dose: 10 mg Documented by: Montelukast Sodium (Singulair) 10 mg PO DAILY [facility] Last Admin: 11/06/19 08:44 Dose: 10 mg Documented by: Morphine Sulfate () 2 mg IV Q3H PRN PRN PRN Reason: Pain Score 6-10/10 Ondansetron HCl (Zofran) 4 mg IV Q8H PRN PRN PRN Reason: NAUSEA/VOMITING Oxycodone HCl (Oxyir) 10 mg PO Q4H PRN PRN PRN Reason: Pain Score 4-5/10 Pantoprazole Sodium (Protonix) 20 mg PO DAILY [facility] Last Admin: 11/06/19 08:43 Dose: 20 mg Documented by: Polyethylene Glycol (Miralax) 17 gm PO QHS [facility] Last Admin: 11/05/19 22:00 Dose: Not Given Documented by: Prednisone () 30 mg PO DAILY [facility] Last Admin: 11/06/19 08:43 Dose: 30 mg Documented by: Pregabalin (Lyrica) 150 mg PO TID [facility] Last Admin: 11/06/19 14:47 Dose: 150 mg Documented by: Senna/Docusate Sodium (Senokot-S, Leti-Colace) 2 tablet PO BID PRN PRN PRN Reason: Constipation Sertraline HCl (Zoloft) 100 mg PO DAILY [facility] Last Admin: 11/06/19 09:01 Dose: 100 mg Documented by: Sertraline HCl (Zoloft) 25 mg PO DAILY [facility] Last Admin: 11/06/19 08:44 Dose: 25 mg Documented by: Sevelamer Carbonate (Renvela) 2,400 mg PO TIDCM [facility] Last Admin: 11/06/19 11:51 Dose: 2,400 mg Documented by: Simethicone (Mylicon) 80 mg PO TID [facility] Last Admin: 11/06/19 14:47 Dose: 80 mg Documented by: Sodium Chloride () 10 - 40 ml IV UD PRN PRN Reason: SALINE FLUSH Last Admin: 11/05/19 16:33 Dose: 10 ml Documented by: Medical Necessity - Tobacco Use Smoking Status: Never smoker Route of nutrition/ use of supplements: [] Nutritional Intake: [] IV Site: [] Vargas Catheter: [] - Assessment/Plan Antibiotics: [] Assessment/Plan: [] Active and Suspected Problems (Last Updated 11/03/19 @ 17:[address] Toma Naylor MD) Severe sepsis (Acute) Improved. On vanc/zosyn. Gets HD --sat. MSSA pcr (+). Low suspicion for covid, test was neg. Ok for d/c back to [facility] on short course po linezolid and omnicef. Will follow as needed, d/w Dr. Villanueva, wrote rx.
[2019-11-06] MEDS: Atorvastatin Calcium 20 MG Tablet PO (21:07)
[2019-11-06] MEDS: 0.9% Saline Lock 10 ML Syringe IV (21:11)
[2019-11-06 22:04] LABS: Glucose 540 mg/dL (74-106)
[2019-11-06 23:01] LABS: Bedside Glucose 500 mg/dL (70-110)
[2019-11-07] VITALS (11 sets, daily range): BP systolic 121–135; BP diastolic 72–96; PULSE 61–121; RESP 14–22; TEMP 36.3–36.7; O2SAT 94–97
[2019-11-07 03:21] LABS: Bedside Glucose 271 mg/dL (70-110)
[2019-11-07] MEDS: Pregabalin 75 MG Capsule 150 MG PO ×3 (05:07→22:07)
[2019-11-07] MEDS: Insulin Lispro 100 UNIT/ML INSULN.PEN SC ×3 (06:40→22:08)
[2019-11-07 06:51] LABS: Bedside Glucose 235 mg/dL (70-110)
[2019-11-07 07:22] LABS: Vancomycin, Random Level 16.4 ug/mL (0.0-15.0)
--- NOTE | 2019-11-07 08:21 | PCM.RX.CS ---
Consult Pharmacy has been consulted to manage selected antiobiotic: Vancomycin Type of Consult: Follow-up Suspected Infection: Sepsis Prior Doses of Antibiotics Received/Current Regimen: 750mg iv x 1 post dialysis on 11.05.19 Labs: Sodium 134 mmol/L (136-145) L 11/05/19 05:36 Potassium 4.8 mmol/L (3.5-5.1) 11/05/19 05:36 Chloride 102 mmol/L (98-107) 11/05/19 05:36 Carbon Dioxide 20.0 mmol/L (21.0-32.0) L 11/05/19 05:36 Anion Gap 12 (5-15) 11/05/19 05:36 BUN 61 mg/dL (7-18) H 11/05/19 05:36 Creatinine 6.07 mg/dL (0.55-1.02) H 11/05/19 05:36 Est GFR (MDRD) Af Amer 9 mL/min (>60) L 11/05/19 05:36 Est GFR (MDRD) Non-Af 8 mL/min (>60) L 11/05/19 05:36 BUN/Creatinine Ratio 10.0 RATIO (10-20) 11/05/19 05:36 Glucose 540 mg/dL (74-106) H* 11/06/19 21:41 Random Vancomycin 16.4 ug/mL (0.0-15.0) H 11/07/19 06:12 Microbiology: Microbiology 11/03/19 19:00 Wound - Abdominal Gram Stain - Final 11/03/19 19:00 Wound - Abdominal Wound Culture - Final Proteus mirabilis Klebsiella pneumoniae sp pneum Coag Negative 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 11/03/19 14:50 Blood Culture (Wb) - Left Hand Blood Culture - Preliminary No growth in 48 hours. 11/03/19 14:50 Mucosa - Nasopharyngeal Group A Streptococcus Rapid Screen - Final 11/04/19 18:02 Mucosa - Nasopharyngeal Coronavirus COVID-19 PCR - Final 11/03/19 14:40 Mucosa - Nasopharyngeal Influenza Types A,B Direct FA (MENA) - Final 11/03/19 14:50 Nasal Secretion Rapid RSV (DFA) - Final Weight used for dosin kg Estimated Creatinine Clearance: ~9ml/min Goal Trough: 15-20 mcg/mL Pharmacy Plan for Drug Dosing: Random level this AM was 16.4. Will give 750mg iv x 1 today per protocol post dialysis. A repeat random level ordered for 11.09.19 in AM. Pharmacy Service will continue to monitor and adjust dosing as required. Follow-Up Labs: Trough Vancomycin - random 11.09.19 @0600
[2019-11-07] MEDS: SEVELAMER CARBONATE 800 MG TABLET 2400 MG PO ×3 (08:31→17:26)
[2019-11-07] MEDS: Insulin Lispro 100 UNIT/ML INSULN.PEN 15 UNIT SC (08:32)
[2019-11-07] MEDS: Heparin 10,000 UNITS/10 ML Vial 7000 UNITS IV (08:50)
--- NOTE | 2019-11-07 10:28 | NURSING ---
Pt currently on dialysis. possible transfer back to care home today. If patient is discharged, will leave dressings in place since nursing will need to assess wounds at the care home. pt will follow up with Dr Salamanca at the wound center with possible surgery next month.
--- NOTE | 2019-11-07 11:00 | PCM.TXEXTCAR ---
- Diet 11/03/19 17:38 Diet: Cardiac: Calorie-Controlled Food consistency:: Regular Liquid Consistency:: Regular/Thin Dietary Modifications:: Low Phosphorous Diet Low Potassium Restriction Fluid Restricted Diet Diet Comments: low sodium, low phos, low potassium with 1500 ml FR How many daily calories?: 2000 calorie - Routine Orders/Code Status Suppository Type: Dulcolax 10mg Suppository Frequency: Daily PRN Routine Lab Work: CBC - EVERY WEEK, - - CMP every week while on antiboitc and follow with Dr Ospina Code Status: Full Code - Wound(s) R lower abdomen Wound Type: nonhealing wound Dressing Change: Wet to Dry Dressing generalized abdomen Wound Type: scattered scabbed areas L posterior leg 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 pressure left gluteal crease Wound Type: shearing - Therapies Weight Bearing: Weight bearing as tolerated Extremity Affected:: Bilateral Lower Physical Therapy: Eval and Treat Occupational Therapy: Eval and Treat - Allergies/Procedures Done in Hospital Allergies/Adverse Reactions: Allergies latex Allergy (Verified 10/23/19 10:58) Hives Sulfa (Sulfonamide Antibiotics) Allergy (Verified 10/23/19 10:58) Rash codeine Adverse Reaction (Verified 10/23/19 10:58) Confusion - Type of Care/Length of Stay Estimated LOS: Convalescent Care Less Than 30 days Type of Care Needed: Skilled Rehab Potential: Fair Prognosis: Fair - Additional Orders/Day of Discharge Additional Orders: Follow-up in wound center every week. Day of Discharge: 11/07/19 - Dietary and Speech Recommendations Dietitian Recommendations/Changes: Will change diet order to 2000 calorie; cardiac; low sodium, low K+, low phos with 1500 ml fluid restriction--protein restriction not indicated with HD & pt needs extra protein for wound healing. Will add Fernando BID for wound healing. Will d/c glucerna shake w/ medpass to limit kcal. - Follow Up Care Primary Care Physician: Marcela Kerr MD [Primary Care Provider] - Please follow up with your Primary Care Physician in: [place] 2 weeks Please Follow Up With: Terrence Salamanca MD When: in 2 weeks for abd wall and sacral wound for closure Please Follow Up With: Bairon Ospina MD When: prn for antibiotic issues
[2019-11-07 11:10] LABS: Anion Gap 11 (5-15); BUN 55 mg/dL (7-18); BUN/Creat Ratio 10.9 RATIO (10-20); Calcium,Total 8.8 mg/dL (8.5-10.1); Chloride 101 mmol/L (98-107); Creatinine, Serum 5.06 mg/dL (0.55-1.02); EST Glomerular Filtration Rate 9 mL/min (>60); Est Glom Filt Rate - Afr Amer 11 mL/min (>60); Estimated Creatinine Clearance 10.59 ml/min; Glucose 241 mg/dL (74-106); Potassium 4.7 mmol/L (3.5-5.1); Sodium Level 135 mmol/L (136-145)
--- NOTE | 2019-11-07 12:19 | PN.RENAL_ITS ---
Patient Problems: Active and Suspected Problems (Last Updated 11/03/19 @ 17:[address] Toma Naylor MD) Severe sepsis (Acute) Subjective: seen on dialysis. tolerating 2.5L fluid removal. Still with significant edema on exam. Denies SOB - Physical Exam Vitals/I&O's: Vital Signs Temp Pulse Resp BP Pulse Ox 97.4 F L 75 22 H 135/96 H 97 11/07/19 10:01 11/07/19 10:01 11/07/19 10:01 11/07/19 10:01 11/07/19 03:05 Oxygen Delivery Method Room Air Weight: 121.1 kg Body Mass Index (BMI) 42.6 Finger Stick Blood Glucose 158 Intake and Output for Last 24 Hours 11/05/19 11/06/19 11/07/19 23:59 23:59 23:59 Intake Total 2223.33 / 2223.33 3550 / 3550 270 / 270 Output Total 3200 / 3200 0 / 0 Balance -976.67 / -976.67 3550 / 3550 270 / 270 General: Alert, Oriented x3, Cooperative, No apparent distress Lungs: Clear to auscultation Cardiovascular: Regular rate Abdomen: Bowel Sounds Present, Soft Extremities: Edema Psych/Mental Status: Normal Affect, Appropriate Microbiology Past 72 Hours 11/03/19 19:00 Wound - Abdominal Gram Stain - Final 11/03/19 19:00 Wound - Abdominal Wound Culture - Final Proteus mirabilis Klebsiella pneumoniae sp pneum Coag Negative 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 11/03/19 14:50 Blood Culture (Wb) - Left Hand Blood Culture - Preliminary No growth in 48 hours. 11/03/19 14:50 Mucosa - Nasopharyngeal Group A Streptococcus Rapid Screen - Final 11/04/19 18:02 Mucosa - Nasopharyngeal Coronavirus COVID-19 PCR - Final Laboratory Results 11/06/19 16:55: POC Glucose 393 H 11/06/19 21:09: POC Glucose 500 H* 11/06/19 21:41: Glucose 540 H* 11/07/19 03:09: POC Glucose 271 H 11/07/19 06:12: Random Vancomycin 16.4 H 11/07/19 06:12: Sodium 135 L, Potassium 4.7, Chloride 101, Carbon Dioxide 23.0, Anion Gap 11, BUN 55 H, Creatinine 5.06 H, Estim Creat Clear Calc 10.59, Est GFR (MDRD) Af Amer 11 L, Est GFR (MDRD) Non-Af 9 L, BUN/Creatinine Ratio 10.9, Glucose 241 H, Calcium 8.8 11/07/19 06:39: POC Glucose 235 H Current Medications Acetaminophen (Tylenol) 650 mg PO Q6H PRN PRN PRN Reason: Pain Score 1-10/Temp > 100.7 F Atorvastatin Calcium (Lipitor) 20 mg PO QHS [facility] Last Admin: 11/06/19 21:07 Dose: 20 mg Documented by: Bisacodyl (Dulcolax) 10 mg RECTAL DAILY PRN PRN PRN Reason: Constipation Calamine/Phenol (Calmoseptine Ointment) 1 applic TOPICAL BID [facility]; Protocol Last Admin: 11/06/19 21:03 Dose: 1 applicatio Documented by: Cefdinir (Omnicef [Equiv]) 300 mg PO DAILY@1500 [facility] Dextrose (D50w Syringe) 0 gm IV X1 PRN; Protocol PRN Reason: Hypoglycemia Glucagon () 1 mg IM .X1 PRN PRN Reason: Hypoglycemia Sodium Chloride () 250 mls @ 15 mls/hr IV .[id number] PRN PRN Reason: Saline Flush Sodium Chloride () 250 mls @ 15 mls/hr IV .[id number] PRN PRN Reason: Additional IVPB Infusion Insulin Glargine (Lantus (Bkc)) 85 units SC 1100 [facility] Insulin Glargine (Lantus (Bkc)) 25 units SC QHS [facility] Insulin Human Lispro (Humalog Kwikpen (Bkc)) 0 unit SC ACHS [facility]; Protocol Last Admin: 11/07/19 06:40 Dose: 6 units Documented by: Insulin Human Lispro (Humalog Kwikpen (Bkc)) 15 unit SC BREAKFAST [facility] Last Admin: 11/07/19 08:32 Dose: 15 units Documented by: Insulin Human Lispro (Humalog Kwikpen (Bkc)) 30 unit SC LUNCH [facility] Insulin Human Lispro (Humalog Kwikpen (Bkc)) 30 unit SC DINNER [facility] Linezolid (Zyvox) 600 mg PO BID [facility] Magnesium Hydroxide (Milk Of Magnesia) 30 ml PO DAILY PRN PRN Reason: Constipation Midodrine (Proamatine) 10 mg PO DAILY [facility] Last Admin: 11/06/19 08:43 Dose: 10 mg Documented by: Montelukast Sodium (Singulair) 10 mg PO DAILY [facility] Last Admin: 11/06/19 08:44 Dose: 10 mg Documented by: Morphine Sulfate () 2 mg IV Q3H PRN PRN PRN Reason: Pain Score 6-10/10 Ondansetron HCl (Zofran) 4 mg IV Q8H PRN PRN PRN Reason: NAUSEA/VOMITING Oxycodone HCl (Oxyir) 10 mg PO Q4H PRN PRN PRN Reason: Pain Score 4-5/10 Pantoprazole Sodium (Protonix) 20 mg PO DAILY [facility] Last Admin: 11/06/19 08:43 Dose: 20 mg Documented by: Polyethylene Glycol (Miralax) 17 gm PO QHS [facility] Last Admin: 11/06/19 21:05 Dose: Not Given Documented by: [facility]one () [facility] Pregabalin (Lyrica) 150 mg PO TID [facility] Last Admin: 11/07/19 05:07 Dose: 150 mg Documented by: Senna/Docusate Sodium (Senokot-S, Leti-Colace) 2 tablet PO BID PRN PRN PRN Reason: Constipation Sertraline HCl (Zoloft) 100 mg PO DAILY [facility] Last Admin: 11/06/19 09:01 Dose: 100 mg Documented by: Sertraline HCl (Zoloft) 25 mg PO DAILY [facility] Last Admin: 11/06/19 08:44 Dose: 25 mg Documented by: Sevelamer Carbonate (Renvela) 2,400 mg PO TIDCM [facility] Last Admin: 11/07/19 08:31 Dose: 2,400 mg Documented by: Simethicone (Mylicon) 80 mg PO TID [facility] Last Admin: 11/07/19 05:07 Dose: 80 mg Documented by: Sodium Chloride () 10 - 40 ml IV UD PRN PRN Reason: SALINE FLUSH Last Admin: 11/06/19 21:11 Dose: 10 ml Documented by: Medical Necessity - Tobacco Use Smoking Status: Never smoker Assessment/Plan All Active Problems (Last Updated 11/03/19 @ 17:[address] Toma Naylor MD) Pressure injury of left leg, unstageable (Acute) Severe sepsis (Acute) 1. ESRD HD , , Mon. Seen on HD. Fluid removal as tolerated 2. Fever with leukocytosis improved with iv antibx. Blood cx negative. DC on oral antibx 3. Chronic hypotension. Midodrine daily.
[2019-11-07] MEDS: Heparin 10,000 UNITS/10 ML Vial IV (12:55)
--- NOTE | 2019-11-07 13:20 | DIALYSIS ---
Hemodialysis complete x 4 hours. 2500 ml net fluid removed. Patient tolerated well. Report given to floor nurse.
--- NOTE | 2019-11-07 13:38 | PN_ITS ---
Patient Problems: Active and Suspected Problems (Last Updated 11/03/19 @ 17:[address] Toma Naylor MD) Severe sepsis (Acute) Reason for Visit: Follow-up for abdominal, sacral decubitus ulcer and left leg ulcer. Objective: No fever or chills. Blood pressure controlled. Patient blood glucose fluct uates. It was 540 last night and then 241 and after insulin it dropped to 108. No hypoglycemia symptoms. On physical exam General: Alert, Oriented x3, Cooperative HEENT: Atraumatic, PERRLA, EOMI, Normocephalic Oral: Dry Mucosa Neck: Supple, No JVD, Negative Carotid Bruits. Dialysis catheter. Lungs: Clear to auscultation, No rhonchi, No wheeze, No rales, air entry bilaterally diminished in lung bases Cardiovascular: Regular rate, Regular Rhythm, Normal S1, Normal S2, No murmurs Abdomen: Bowel Sounds Present, Soft, Non Tender, Non-Distended Extremities: Capillary Refill Less than 3 Seconds, Edema Skin: Ulcer/ Wound - Large, subcutaneous deep ulcer on lower abdominal wall from right to left. Left buttock ulcer possible decubitus ulcer. Ulcer over left lower leg from posterior lateral to medial side. All ulcers were present on admission. 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 Musculoskeletal: No Tenderness to Palpation of Joints or Extremities Neurological: Cranial nerves II-XII grossly intact Psych/Mental Status: Normal Affect, Appropriate Vitals/I&O's: Vital Signs Temp Pulse Resp BP Pulse Ox 97.5 F L 77 20 H 121/77 H 97 11/07/19 13:19 11/07/19 13:19 11/07/19 13:19 11/07/19 13:19 11/07/19 03:05 Oxygen Delivery Method Room Air Weight: 266 lb 15.677 oz Body Mass Index (BMI) 42.6 Finger Stick Blood Glucose 158 Intake and Output for Last 24 Hours 11/05/19 11/06/19 11/07/19 23:59 23:59 23:59 Intake Total 2223.33 / 2223.33 3550 / 3550 270 / 270 Output Total 3200 / 3200 0 / 0 2500 / 2500 Balance -976.67 / -976.67 3550 / 3550 -2230 / -2230 Microbiology Past 72 Hours 11/03/19 19:00 Wound - Abdominal Gram Stain - Final 11/03/19 19:00 Wound - Abdominal Wound Culture - Final Proteus mirabilis Klebsiella pneumoniae sp pneum Coag Negative 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 11/03/19 14:50 Blood Culture (Wb) - Left Hand Blood Culture - Preliminary No growth in 48 hours. 11/03/19 14:50 Mucosa - Nasopharyngeal Group A Streptococcus Rapid Screen - Final 11/04/19 18:02 Mucosa - Nasopharyngeal Coronavirus COVID-19 PCR - Final Laboratory Results 11/06/19 16:55: POC Glucose 393 H 11/06/19 21:09: POC Glucose 500 H* 11/06/19 21:41: Glucose 540 H* 11/07/19 03:09: POC Glucose 271 H 11/07/19 06:12: Random Vancomycin 16.4 H 11/07/19 06:12: Sodium 135 L, Potassium 4.7, Chloride 101, Carbon Dioxide 23.0, Anion Gap 11, BUN 55 H, Creatinine 5.06 H, Estim Creat Clear Calc 10.59, Est GFR (MDRD) Af Amer 11 L, Est GFR (MDRD) Non-Af 9 L, BUN/Creatinine Ratio 10.9, Glucose 241 H, Calcium 8.8 11/07/19 06:39: POC Glucose 235 H Current Medications Acetaminophen (Tylenol) 650 mg PO Q6H PRN PRN PRN Reason: Pain Score 1-10/Temp > 100.7 F Atorvastatin Calcium (Lipitor) 20 mg PO QHS [facility] Last Admin: 11/06/19 21:07 Dose: 20 mg Documented by: Bisacodyl (Dulcolax) 10 mg RECTAL DAILY PRN PRN PRN Reason: Constipation Calamine/Phenol (Calmoseptine Ointment) 1 applic TOPICAL BID [facility]; Protocol Last Admin: 11/06/19 21:03 Dose: 1 applicatio Documented by: Cefdinir (Omnicef [Equiv]) 300 mg PO DAILY@1500 [facility] Dextrose (D50w Syringe) 0 gm IV X1 PRN; Protocol PRN Reason: Hypoglycemia Glucagon () 1 mg IM .X1 PRN PRN Reason: Hypoglycemia Sodium Chloride () 250 mls @ 15 mls/hr IV .[id number] PRN PRN Reason: Saline Flush Sodium Chloride () 250 mls @ 15 mls/hr IV .[id number] PRN PRN Reason: Additional IVPB Infusion Insulin Glargine (Lantus (Bkc)) 20 units SC QHS [facility] Insulin Glargine (Lantus (Bkc)) 80 units SC 1100 [facility] Insulin Human Lispro (Humalog Kwikpen (Bkc)) 0 unit SC ACHS [facility]; Protocol Last Admin: 11/07/19 06:40 Dose: 6 units Documented by: Linezolid (Zyvox) 600 mg PO BID [facility] Magnesium Hydroxide (Milk Of Magnesia) 30 ml PO DAILY PRN PRN Reason: Constipation Midodrine (Proamatine) 10 mg PO DAILY [facility] Last Admin: 11/06/19 08:43 Dose: 10 mg Documented by: Montelukast Sodium (Singulair) 10 mg PO DAILY [facility] Last Admin: 11/06/19 08:44 Dose: 10 mg Documented by: Morphine Sulfate () 2 mg IV Q3H PRN PRN PRN Reason: Pain Score 6-10/10 Ondansetron HCl (Zofran) 4 mg IV Q8H PRN PRN PRN Reason: NAUSEA/VOMITING Oxycodone HCl (Oxyir) 10 mg PO Q4H PRN PRN PRN Reason: Pain Score 4-5/10 Pantoprazole Sodium (Protonix) 20 mg PO DAILY [facility] Last Admin: 11/06/19 08:43 Dose: 20 mg Documented by: Polyethylene Glycol (Miralax) 17 gm PO QHS [facility] Last Admin: 11/06/19 21:05 Dose: Not Given Documented by: [facility] () [facility] Pregabalin (Lyrica) 150 mg PO TID [facility] Last Admin: 11/07/19 05:07 Dose: 150 mg Documented by: Senna/Docusate Sodium (Senokot-S, Leti-Colace) 2 tablet PO BID PRN PRN PRN Reason: Constipation Sertraline HCl (Zoloft) 100 mg PO DAILY [facility] Last Admin: 11/06/19 09:01 Dose: 100 mg Documented by: Sertraline HCl (Zoloft) 25 mg PO DAILY [facility] Last Admin: 11/06/19 08:44 Dose: 25 mg Documented by: Sevelamer Carbonate (Renvela) 2,400 mg PO TIDCM [facility] Last Admin: 11/07/19 08:31 Dose: 2,400 mg Documented by: Simethicone (Mylicon) 80 mg PO TID [facility] Last Admin: 11/07/19 05:07 Dose: 80 mg Documented by: Sodium Chloride () 10 - 40 ml IV UD PRN PRN Reason: SALINE FLUSH Last Admin: 11/06/19 21:11 Dose: 10 ml Documented by: STROKE Vital Signs/Narrative: Vital Signs Temp Pulse Resp BP 11/07/19 13:19 97.5 F L 77 20 H 121/77 H 11/07/19 10:01 97.4 F L 75 22 H 135/96 H Medical Necessity - Tobacco Use Smoking Status: Never smoker Assessment/Plan All Active Problems (Last Updated 11/03/19 @ 17:[address] 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 Salamanca and had debridement in April 2019. Scheduled wound debridement tomorrow response secondary to COVID-19 pandemic. Previous wound culture grew Klebsiella pneumoniae, Proteus mirabilis, MRSA and corynebacterium. 11/03: Patient had low-grade temperature 100 Fahrenheit on 11/02. Currently on broad-spectrum antibiotic IV vancomycin and Zosyn. Cultures are pending. Rapid RSV, group A strep and influenza tests are negative. Plastic surgery on consult. 11/04: Seen by ID. COVID-19 RPR negative. Initial Gram stain of wound culture shows gram-negative iglesia possible Pseudomonas, gram-negative iglesia lactose ferment er and gram-positive organism. Perioperative course discussed with the patient. 11/05: Wound culture from 11/02 shows Proteus mirabilis, gram-negative iglesia lactose small animal veterinarian and coagulase-negative staph. Seen by ID. He wrote prescription for linezolid and Omnicef. 11/06: Pending precertification. #2 indeterminate troponin secondary to infection/severe sepsis: Troponin is minimally elevated at 0.051, likely due to severe sepsis. Patient denied any chest pain. EKG revealed no acute ischemic changes. Repeat last troponin is normal. 2D echo in July 2018 Interpretation Summary Left ventricular systolic function is normal. The estimated ejection fraction is 65 %. Moderate concentric left ventricular hypertrophy. The left atrium is mildly enlarged. There is mild mitral annular calcification. Mild diffuse mitral valve thickening. Mild mitral valve stenosis. Moderate (2+) mitral valve insufficiency. Mild tricuspid valve insufficiency. Right ventricular systolic pressure estimated to be 49 mmHg. There is evidence of diastolic dysfunction. 11/04: Patient still has PACs and PVCs on campus monitor. Repeat EKG showed normal sinus rhythm. 11/05: teletypesetter monitor shows PVCs. Hemodynamically stable. #3 ESRD on hemodialysis: Seen by client service associate Dr. Lew. Continue dialysis as per schedule T//. Midodrine changed to daily #4 type 2 diabetes mellitus: ADA diet, Accu-Cheks, insulin sliding scale, continue home doses of Lantus. 11/06:wide Fluctuation in glucose. Patient insulin dosage adjusted. #5 chronic inflammatory demyelinating polyneuropathy, paraplegia, physical debility/bedbound: Stable, continue prednisone same dose. #6 Hypotension with history of hypertension: Blood pressure was low in the morning. Midodrine 10 mg daily ordered. #7 history of right leg DVT: hold Eliquis for now because patient may go for surgery, will check INR and pro time. #8 anxiety and depression: Continue Zoloft. #9 chronic anemia: Due to anemia of chronic disease. Admission HB is 12 g/dL, stable at baseline. Platelet count is 125,000, has been fluctuating in the past. No active bleeding. SERGEI globin is between 10 to 11 g%. #10 GERD: Continue PPI. #12 DVT prophylaxis: SCDs. Pending precertification for discharge to SNF. Inpatient E&M: [id number] Subs Hosp L2
[2019-11-07] MEDS: predniSONE 20 MG Tablet PO (13:40)
[2019-11-07] MEDS: Menthol/Lanolin/Calamine/Znox 113 GM Tube 1 APPLIC TOPICAL ×2 (13:40→22:09)
[2019-11-07] MEDS: Juven (unflavored) Packet 1 PACKET PO ×2 (13:40→17:26)
[2019-11-07 13:41] LABS: Bedside Glucose 105 mg/dL (70-110)
[2019-11-07] MEDS: Midodrine HCl 5 MG Tablet 10 MG PO (13:41)
[2019-11-07] MEDS: Pantoprazole Sodium 20 MG Tablet PO (13:41)
--- NOTE | 2019-11-07 13:41 | CASEMGMT ---
JOLIE called [facility] and spoke with Elizabeth inquiring if they received pre-cert yet. She said they asked for clinicals. JOLIE faxed updated clinicals to [facility]. Awaiting pre-cert. Nadja GARCIA MSW
[2019-11-07] MEDS: Montelukast 10 MG Tablet PO (13:42)
[2019-11-07] MEDS: Sertraline 50 MG Tablet 25 MG PO (13:43)
[2019-11-07] MEDS: Sertraline 100 MG Tablet PO (13:43)
[2019-11-07] MEDS: Cefdinir 300 MG Capsule PO (14:08)
[2019-11-07 16:36] LABS: Bedside Glucose 225 mg/dL (70-110)
[2019-11-07] MEDS: Linezolid 600 MG Tablet PO (17:26)
[2019-11-07] MEDS: Polyethylene Glycol 3350 17 GM PACKET PO (22:07)
[2019-11-07] MEDS: Atorvastatin Calcium 20 MG Tablet PO (22:07)
[2019-11-07 22:50] LABS: Bedside Glucose 415 mg/dL (70-110)
[2019-11-08] VITALS (7 sets, daily range): BP systolic 151–173; BP diastolic 71–84; PULSE 56–121; RESP 12–18; TEMP 36.6–36.9; O2SAT 97–98
[2019-11-08] MEDS: Pregabalin 75 MG Capsule 150 MG PO ×3 (06:20→21:24)
[2019-11-08] MEDS: Insulin Lispro 100 UNIT/ML INSULN.PEN SC (06:22)
[2019-11-08 06:40] LABS: Bedside Glucose 388 mg/dL (70-110)
[2019-11-08] MEDS: SEVELAMER CARBONATE 800 MG TABLET 2400 MG PO ×3 (08:28→16:19)
[2019-11-08] MEDS: predniSONE 20 MG Tablet PO (08:28)
[2019-11-08] MEDS: Juven (unflavored) Packet 1 PACKET PO ×2 (08:29→16:15)
[2019-11-08] MEDS: Menthol/Lanolin/Calamine/Znox 113 GM Tube 1 APPLIC TOPICAL ×2 (09:31→21:19)
[2019-11-08] MEDS: Linezolid 600 MG Tablet PO ×2 (09:33→21:37)
[2019-11-08] MEDS: Sertraline 100 MG Tablet PO (09:33)
[2019-11-08] MEDS: Sertraline 50 MG Tablet 25 MG PO (09:33)
[2019-11-08] MEDS: Midodrine HCl 5 MG Tablet 10 MG PO (09:33)
[2019-11-08] MEDS: Montelukast 10 MG Tablet PO (09:34)
[2019-11-08] MEDS: Pantoprazole Sodium 20 MG Tablet PO (09:34)
--- NOTE | 2019-11-08 10:53 | PN.SURG_ITS ---
Patient Problems: Active and Suspected Problems (Last Updated 11/03/19 @ 17:[address] Toma Naylor MD) Severe sepsis (Acute) Subjective: Patient is known to me. She is [facility] for her nonhealing diabetic ulcer right lateral abdominal wall. This resulted from a surgery on 04/26/19 where she underwent surgical preparation right lateral abdominal wall with incision and drainage and excisional debridement skin and subcutaneous tissue and fascia nonhealing infected diabetic necrotic ulcerated abscesses necrotizing soft tissue infection (377 cm2) and abdominal panniculectomy. At the present time, her wound care is saline dressing changes daily at the retirement. She was recently admitted because of fever and sepsis. Her WBC was 17.1 and has improved to 9.2. Her lactate was 3.3 and has improved to 1.8. Wound culture shows Gram negative rods lactose education professional, Gram negative rods possible Pseudomonas, and Gram positive organisms. She is currently on Vancomycin and Zosyn. CT Abdomen and Pelvis showed no evidence of abscess. She was scheduled for operative debridement and complex secondary wound closure in early October. The surgery was postponed because of EKG changes and Anesthesia recommended evaluation by Cardiology prior to surgery. Patient states she had a TeleHealth visit from Cardiology. Her HgbA1 is 7.3. I was asked to evaluate her nonhealing diabetic ulcer right lateral abdominal wall for surgical options for treatment. Objective: Patient is sitting in bed. She denies any complaints at this time. - Physical Exam Vitals/I&O's: Vital Signs Temp Pulse Resp BP Pulse Ox 97.9 F 74 18 157/71 H 98 11/08/19 09:29 11/08/19 09:29 11/08/19 09:29 11/08/19 09:29 11/08/19 09:29 Oxygen Delivery Method Room Air Weight: 266 lb 5.094 oz Body Mass Index (BMI) 42.6 Finger Stick Blood Glucose 158 Intake and Output for Last 24 Hours 11/06/19 11/07/19 11/08/19 23:59 23:59 23:59 Intake Total 3550 / 3550 1350 / 1350 Output Total 0 / 0 5000 / 5000 Balance 3550 / 3550 -3650 / -3650 General: Alert, Oriented x3, Cooperative HEENT: Atraumatic Oral: Moist Mucosa Lungs: Normal air movement Cardiovascular: Regular rate Abdomen: Soft, Obese Extremities: Capillary Refill Less than 3 Seconds Skin: Ulcer/ Wound - Lower abdominal ulcer, right posterior leg ulcer Musculoskeletal: No Tenderness to Palpation of Joints or Extremities Neurological: Neuro grossly intact Psych/Mental Status: Normal Affect, Appropriate Microbiology Past 72 Hours 11/03/19 19:00 Wound - Abdominal Gram Stain - Final 11/03/19 19:00 Wound - Abdominal Wound Culture - Final Proteus mirabilis Klebsiella pneumoniae sp pneum Coag Negative 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 11/03/19 14:50 Blood Culture (Wb) - Left Hand Blood Culture - Preliminary No growth in 48 hours. 11/03/19 14:50 Mucosa - Nasopharyngeal Group A Streptococcus Rapid Screen - Final Laboratory Results 11/07/19 06:12: Sodium 135 L, Potassium 4.7, Chloride 101, Carbon Dioxide 23.0, Anion Gap 11, BUN 55 H, Creatinine 5.06 H, Estim Creat Clear Calc 10.59, Est GFR (MDRD) Af Amer 11 L, Est GFR (MDRD) Non-Af 9 L, BUN/Creatinine Ratio 10.9, Gluco se 241 H, Calcium 8.8 11/07/19 13:18: POC Glucose 105 11/07/19 16:29: POC Glucose 225 H 11/07/19 22:05: POC Glucose 415 H 11/08/19 06:19: POC Glucose 388 H Current Medications Acetaminophen (Tylenol) 650 mg PO Q6H PRN PRN PRN Reason: Pain Score 1-10/Temp > 100.7 F Atorvastatin Calcium (Lipitor) 20 mg PO QHS [facility] Last Admin: 11/07/19 22:07 Dose: 20 mg Documented by: Bisacodyl (Dulcolax) 10 mg RECTAL DAILY PRN PRN PRN Reason: Constipation Calamine/Phenol (Calmoseptine Ointment) 1 applic TOPICAL BID [facility]; Protocol Last Admin: 11/08/19 09:31 Dose: 1 applicatio Documented by: Cefdinir (Omnicef [Equiv]) 300 mg PO DAILY@1500 [facility] Last Admin: 11/07/19 14:08 Dose: 300 mg Documented by: Dextrose (D50w Syringe) 0 gm IV X1 PRN; Protocol PRN Reason: Hypoglycemia Glucagon () 1 mg IM .X1 PRN PRN Reason: Hypoglycemia Sodium Chloride () 250 mls @ 15 mls/hr IV .[id number] PRN PRN Reason: Saline Flush Sodium Chloride () 250 mls @ 15 mls/hr IV .[id number] PRN PRN Reason: Additional IVPB Infusion Insulin Glargine (Lantus (Bkc)) 20 units SC QHS [facility] Last Admin: 11/07/19 22:08 Dose: 20 units Documented by: Insulin Glargine (Lantus (Bkc)) 80 units SC 1100 [facility] Insulin Human Lispro (Humalog Kwikpen ([facility])) 15 unit SC [facility]AK[facility]ST [facility] Insulin Human Lispro (Humalog Kwikpen ([facility])) 30 unit SC DINNER [facility] Insulin Human Lispro (Humalog Kwikpen ([facility])) 30 unit SC LUNCH [facility] Insulin Human Lispro (Humalog Kwikpen ([facility])) 7 unit SC QHS [facility] Linezolid (Zyvox) 600 mg PO BID [facility] Last Admin: 11/08/19 09:33 Dose: 600 mg Documented by: Magnesium Hydroxide (Milk Of Magnesia) 30 ml PO DAILY PRN PRN Reason: Constipation Midodrine (Proamatine) 10 mg PO DAILY [facility] Last Admin: 11/08/19 09:33 Dose: 10 mg Documented by: Montelukast Sodium (Singulair) 10 mg PO DAILY [facility] Last Admin: 11/08/19 09:34 Dose: 10 mg Documented by: Morphine Sulfate () 2 mg IV Q3H PRN PRN PRN Reason: Pain Score 6-10/10 Ondansetron HCl (Zofran) 4 mg IV Q8H PRN PRN PRN Reason: NAUSEA/VOMITING Oxycodone HCl (Oxyir) 10 mg PO Q4H PRN PRN PRN Reason: Pain Score 4-5/10 Pantoprazole Sodium (Protonix) 20 mg PO DAILY [facility] Last Admin: 11/08/19 09:34 Dose: 20 mg Documented by: Polyethylene Glycol (Miralax) 17 gm PO QHS [facility] Last Admin: 11/07/19 22:07 Dose: 17 gm Documented by: Prednisone () [facility] Last Admin: 11/08/19 08:28 Dose: 20 mg Documented by: Pregabalin (Lyrica) 150 mg PO TID [facility] Last Admin: 11/08/19 06:20 Dose: 150 mg Documented by: Senna/Docusate Sodium (Senokot-S, Leti-Colace) 2 tablet PO BID PRN PRN PRN Reason: Constipation Sertraline HCl (Zoloft) 100 mg PO DAILY [facility] Last Admin: 11/08/19 09:33 Dose: 100 mg Documented by: Sertraline HCl (Zoloft) 25 mg PO DAILY [facility] Last Admin: 11/08/19 09:33 Dose: 25 mg Documented by: Sevelamer Carbonate (Renvela) 2,400 mg PO TIDCM [facility] Last Admin: 11/08/19 08:28 Dose: 2,400 mg Documented by: Simethicone (Mylicon) 80 mg PO TID [facility] Last Admin: 11/08/19 06:20 Dose: 80 mg Documented by: Sodium Chloride () 10 - 40 ml IV UD PRN PRN Reason: SALINE FLUSH Last Admin: 11/06/19 21:11 Dose: 10 ml Documented by: Medical Necessity - Tobacco Use Smoking Status: Never smoker Assessment/Plan All Active Problems (Last Updated 11/03/19 @ 17:[address] Toma Naylor MD) Pressure injury of left leg, unstageable (Acute) Severe sepsis (Acute) Pressure injury of left leg, unstageable (Acute) Severe sepsis (Acute) 1. Nonhealing diabetic ulcer right lateral abdominal wall. 2. Painful insulin nodules abdominal wall. 3. ESRD requiring dialysis. 4. Diabetes mellitus. 5. Sepsis, resolving. 6. Abdominal panniculus. 7. Abdominal wall skin crease intertrigo. 8. History of MRSA. 9. Pressure injury left posterior leg. 10. Scattered eschar areas left abdominal wall probably from tape. Wound culture shows Proteus mirabilis Klebsiella pneumoniae sp pneum. ID has placed her on Linezolid and Omnicef. Her last outpatient culture on 08/05/19 showed Proteus mirabilis, MRSA, Corynebacterium, and Prevotella melaninogenica. She was treated with Augmentin and Zyvox. CT Abdomen reviewed. No abscess seen. There is no urgent need for surgery at this time but would like to get it done in a timely fashion to minimize worsening symptoms. I was planning on taking her to surgery for operative debridement and complex secondary wound closure. Her HgbA1c was 7.3. She saw Cardiology through TeleHealth. I want her to stabilize from this recent episode of fever and sepsis. If IV antibiotics are needed, will schedule the surgery when the infection has stabilized. From my standpoint she can go back to [facility]. She states that she is supposed to be transferred back to [place] today. Will schedule the surgery sometime next month. Continue dialysis on Monday, , and Monday. After discharge, followup at [facility] Center on December 01. Inpatient E&M: [id number] [facility] Hosp L1
[2019-11-08] MEDS: Insulin Lispro 100 UNIT/ML INSULN.PEN 30 UNIT SC ×2 (11:19→16:18)
[2019-11-08 11:36] LABS: Bedside Glucose 317 mg/dL (70-110)
--- NOTE | 2019-11-08 12:27 | PCM.DC.SUM ---
Discharge Date and Diagnosis - Problem List Patient Problems: Active and Suspected Problems (Last Updated 11/03/19 @ 17:[address] Toma Naylor MD) Severe sepsis (Acute) Date of Admission: 11/03/19 Date of Discharge: 11/08/19 - Primary Discharge Diagnosis Acute Problems: Active Problems (Last Updated 11/03/19 @ 17:[address] Toma Naylor MD) Severe sepsis (Acute) - Secondary Discharge Diagnosis Chronic Problems: Chronic Problems (Last Updated 11/03/19 @ 17:[address] 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) nonhealing infected diabetic ulcerated abscesses right lateral abdominal wall Wound, open, abdominal wall, anterior (Chronic) Anxiety and depression (Chronic) ESRD (end stage renal disease) (Chronic) Morbid obesity (Chronic) Chronic diastolic CHF (congestive heart failure) (Chronic) 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 Salamanca and had debridement in April 2019. Patient wound debridement was postponed. Wound culture shows Proteus mirabilis, Klebsiella pneumoniae and coagulase-negative staph. In house, patient was treated with IV vancomycin and Zosyn. Patient was seen by ID and is being discharged on linezolid and cefdinir. #2 indeterminate troponin secondary to infection/severe sepsis: Troponin is minimally elevated at 0.051, likely due to severe sepsis. Patient denied any chest pain. EKG revealed no acute ischemic changes. Repeat last troponin is normal. 2D echo in July 2018 shows EF 65% with moderate concentric LVH and mild LA enlargement. Moderate MR, mild MS. Evidence of diastolic dysfunction suggestive of chronic heart failure with preserved EF/chronic diastolic heart failure #3 ESRD on hemodialysis: Seen by metal spray operator Dr. Lew. Continue dialysis as per schedule T//. Midodrine changed to daily #4 type 2 diabetes mellitus: ADA diet, Accu-Cheks, insulin sliding scale, continue home doses of Lantus.: Wide fluctuation of glucose. Patient on a scheduled Lantus and pre-meal short-acting insulin. Sliding scale discontinued. #5 chronic inflammatory demyelinating polyneuropathy, paraplegia, physical debility/bedbound: Stable, continue prednisone same dose. #6 Hypotension with history of hypertension: Blood pressure was low in the morning. Midodrine 10 mg daily ordered. #7 history of right leg DVT: hold Eliquis for now because patient may go for surgery, will check INR and pro time. #8 anxiety and depression: Continue Zoloft. #9 chronic anemia: Due to anemia of chronic disease. Admission HB is 12 g/dL, stable at baseline. Platelet count is 125,000, has been fluctuating in the past. No active bleeding. Hemoglobin fluctuates between between 10 to 11 g%. #10 GERD: Continue PPI. #12 DVT prophylaxis: SCDs. Discharge medication reconciliation done. Discharge follow-up instructions completed. Discharge process discussed with the patient and all questions were answered to patient's satisfaction. Patient is being discharged to [facility] Total time spent, exact 35 minutes on discharge meds reconciliation, examination, coordination of care with nurses and ancillary staff, review of imaging and blood test and discussion with the patient on follow-up instructions Patient Problems: Active and Suspected Problems (Last Updated 11/03/19 @ 17:[address] Toma Naylor MD) Severe sepsis (Acute) Objective: Seen and examined. Patient blood sugar high after scheduled dose was discontinued but patient was put back on her scheduled dose. Discussed with the nursing staff. Sliding scale discontinued. On physical exam General: Alert, Oriented x3, Cooperative HEENT: Atraumatic, PERRLA, EOMI, Normocephalic Oral: Dry Mucosa Neck: Supple, No JVD, Negative Carotid Bruits. Dialysis catheter. Lungs: Clear to auscultation, No rhonchi, No wheeze, No rales, air entry bilaterally diminished in lung bases Cardiovascular: Regular rate, Regular Rhythm, Normal S1, Normal S2, No murmurs Abdomen: Bowel Sounds Present, Soft, Non Tender, Non-Distended Extremities: Capillary Refill Less than 3 Seconds, Edema Skin: Ulcer/ Wound - Large, subcutaneous deep ulcer on lower abdominal wall from right to left. Left buttock ulcer possible decubitus ulcer. Ulcer over left lower leg from posterior lateral to medial side. All ulcers were present on admission. 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 Musculoskeletal: No Tenderness to Palpation of Joints or Extremities Neurological: Cranial nerves II-XII grossly intact Psych/Mental Status: Normal Affect, Appropriate - Physical Exam Vitals/I&O's: Vital Signs Temp Pulse Resp BP Pulse Ox 97.4 F L 75 22 H 135/96 H 97 11/07/19 10:01 11/07/19 10:01 11/07/19 10:01 11/07/19 10:01 11/07/19 03:05 Oxygen Delivery Method Room Air Weight: 266 lb 15.677 oz Body Mass Index (BMI) 42.6 Finger Stick Blood Glucose 158 Intake and Output for Last 24 Hours 11/05/19 11/06/19 11/07/19 23:59 23:59 23:59 Intake Total 2223.33 / 2223.33 3550 / 3550 270 / 270 Output Total 3200 / 3200 0 / 0 Balance -976.67 / -976.67 3550 / 3550 270 / 270 Microbiology Past 72 Hours 11/03/19 19:00 Wound - Abdominal Gram Stain - Final 11/03/19 19:00 Wound - Abdominal Wound Culture - Final Proteus mirabilis Klebsiella pneumoniae sp pneum Coag Negative 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 11/03/19 14:50 Blood Culture (Wb) - Left Hand Blood Culture - Preliminary No growth in 48 hours. 11/03/19 14:50 Mucosa - Nasopharyngeal Group A Streptococcus Rapid Screen - Final 11/04/19 18:02 Mucosa - Nasopharyngeal Coronavirus COVID-19 PCR - Final Laboratory Results 11/06/19 11:48: POC Glucose 320 H 11/06/19 16:55: POC Glucose 393 H 11/06/19 21:09: POC Glucose 500 H* 11/06/19 21:41: Glucose 540 H* 11/07/19 03:09: POC Glucose 271 H 11/07/19 06:12: Random Vancomycin 16.4 H 11/07/19 06:12: Sodium 135 L, Potassium 4.7, Chloride 101, Carbon Dioxide 23.0, Anion Gap 11, BUN 55 H, Creatinine 5.06 H, Estim Creat Clear Calc 10.59, Est GFR (MDRD) Af Amer 11 L, Est GFR (MDRD) Non-Af 9 L, BUN/Creatinine Ratio 10.9, Glucose 241 H, Calcium 8.8 11/07/19 06:39: POC Glucose 235 H Current Medications Acetaminophen (Tylenol) 650 mg PO Q6H PRN PRN PRN Reason: Pain Score 1-10/Temp > 100.7 F Atorvastatin Calcium (Lipitor) 20 mg PO QHS [facility] Last Admin: 11/06/19 21:07 Dose: 20 mg Documented by: Bisacodyl (Dulcolax) 10 mg RECTAL DAILY PRN PRN PRN Reason: Constipation Calamine/Phenol (Calmoseptine Ointment) 1 applic TOPICAL BID [facility]; Protocol Last Admin: 11/06/19 21:03 Dose: 1 applicatio Documented by: Cefdinir (Omnicef [Equiv]) 300 mg PO DAILY@1500 [facility] Dextrose (D50w Syringe) 0 gm IV X1 PRN; Protocol PRN Reason: Hypoglycemia Glucagon () 1 mg IM .X1 PRN PRN Reason: Hypoglycemia Sodium Chloride () 250 mls @ 15 mls/hr IV .[id number] PRN PRN Reason: Saline Flush Sodium Chloride () 250 mls @ 15 mls/hr IV .[id number] PRN PRN Reason: Additional IVPB Infusion Insulin Glargine (Lantus (Bkc)) 85 units SC 1100 SHAHANA Insulin Glargine (Lantus (Bkc)) 25 units SC QHS [facility] Insulin Human Lispro (Humalog Kwikpen (Bkc)) 0 unit SC ACHS [facility]; Protocol Last Admin: 11/07/19 06:40 Dose: 6 units Documented by: Insulin Human Lispro (Humalog Kwikpen (Bkc)) 15 unit SC BREAKFAST [facility] Last Admin: 11/07/19 08:32 Dose: 15 units Documented by: Insulin Human Lispro (Humalog Kwikpen (Bkc)) 30 unit SC LUNCH [facility] Insulin Human Lispro (Humalog Kwikpen (Bkc)) 30 unit SC DINNER [facility] Linezolid (Zyvox) 600 mg PO BID [facility] Magnesium Hydroxide (Milk Of Magnesia) 30 ml PO DAILY PRN PRN Reason: Constipation Midodrine (Proamatine) 10 mg PO DAILY [facility] Last Admin: 11/06/19 08:43 Dose: 10 mg Documented by: Montelukast Sodium (Singulair) 10 mg PO DAILY [facility] Last Admin: 11/06/19 08:44 Dose: 10 mg Documented by: Morphine Sulfate () 2 mg IV Q3H PRN PRN PRN Reason: Pain Score 6-10/10 Ondansetron HCl (Zofran) 4 mg IV Q8H PRN PRN PRN Reason: NAUSEA/VOMITING Oxycodone HCl (Oxyir) 10 mg PO Q4H PRN PRN PRN Reason: Pain Score 4-5/10 Pantoprazole Sodium (Protonix) 20 mg PO DAILY [facility] Last Admin: 11/06/19 08:43 Dose: 20 mg Documented by: Polyethylene Glycol (Miralax) 17 gm PO QHS [facility] Last Admin: 11/06/19 21:05 Dose: Not Given Documented by: [facility] () [facility] Pregabalin (Lyrica) 150 mg PO TID [facility] Last Admin: 11/07/19 05:07 Dose: 150 mg Documented by: Senna/Docusate Sodium (Senokot-S, Leti-Colace) 2 tablet PO BID PRN PRN PRN Reason: Constipation Sertraline HCl (Zoloft) 100 mg PO DAILY [facility] Last Admin: 11/06/19 09:01 Dose: 100 mg Documented by: Sertraline HCl (Zoloft) 25 mg PO DAILY [facility] Last Admin: 11/06/19 08:44 Dose: 25 mg Documented by: Sevelamer Carbonate (Renvela) 2,400 mg PO TIDCM [facility] Last Admin: 11/07/19 08:31 Dose: 2,400 mg Documented by: Simethicone (Mylicon) 80 mg PO TID [facility] Last Admin: 11/07/19 05:07 Dose: 80 mg Documented by: Sodium Chloride () 10 - 40 ml IV UD PRN PRN Reason: SALINE FLUSH Last Admin: 11/06/19 21:11 Dose: 10 ml Documented by: Home Medications: Medications to take at Discharge Montelukast [Singulair] 10 mg PO DAILY 10/29/13 Sertraline HCl 125 mg PO DAILY 06/14/18 Pantoprazole Sodium [Protonix] 20 mg PO DAILY 06/20/18 Sevelamer Carbonate [Renvela] 2,400 mg PO TIDCM 01/19/19 multivitamin 1 tab PO DAILY 04/03/19 Insulin Lispro [Admelog Solostar] 7 unit SQ QHS 04/25/19 Apixaban [Eliquis] 5 mg PO BID #90 tab 05/03/19 Magnesium Hydroxide [Milk Of Magnesia] 30 ml PO DAILY PRN #1 udc 05/03/19 Arginine/Ascorbate Sod/Pedro AC [Arginaid Powder] 1 ea PO BID 05/27/19 Bisacodyl [Dulcolax] 10 mg RECTAL DAILY PRN PRN 05/27/19 Sennosides/Docusate Sodium [Senna Plus 8.6-50 mg Softgel] 2 ea PO BID 05/27/19 SimETHICONE [Mylicon] 80 mg PO TID 06/27/19 Insulin Lispro [Admelog Solostar] 15 unit SQ BREAKFAST 09/18/19 Insulin Lispro [Admelog Solostar] 28 unit SQ DINNER 09/18/19 Acetaminophen [Tylenol Tablet] 650 mg PO Q6H PRN PRN tab 09/23/19 Menthol/Lanolin/Calamine/Znox [Calmoseptine Ointment] 1 applic TOPICAL TID tube 09/23/19 Sodium Hypochlorite [Dakins Solution 0.25% (1/2 Strength)] 1 applic TOPICAL BID bottle 09/23/19 Amlodipine Besylate [Norvasc] 2.5 mg PO SUMOWEFR 10/18/19 Insulin Lispro [Admelog Solostar] 28 unit SQ LUNCH 10/18/19 Polyethylene Glycol 3350 [Miralax] 17 gm PO QHS 10/18/19 Vit E Acet/Gly/Dimeth/Water [Cetaphil Moisturizing Lotion] 237 ml TP DAILY 10/18/19 atorvastatin 20 mg tablet 20 mg PO QHS 10/23/19 pregabalin 150 mg capsule 150 mg PO TID 10/23/19 Activated Charcoal [Charcoal] 200 mg PO PRN PRN 11/03/19 Multivit-Min/Iron/Folic/Lutein [Centrum Silver Women Tablet] 1 ea PO DAILY 11/03/19 Insulin Glargine [Lantus SoloStar Pen] 80 units SUBCUT DAILY #0 11/06/19 Insulin Glargine,Hum.rec.anlog [Basaglar Kwikpen U-100] 20 unit SUBCUT QHS #0 11/06/19 Linezolid 600 mg PO BID #6 tab 11/06/19 Cefdinir [Omnicef [equiv]] 300 mg PO DAILY@1500 #2 cap 11/07/19 Insulin Glargine [Lantus SoloStar Pen] 25 units SUBCUT QHS pen 11/07/19 predniSONE tablet 20 mg PO DAILYCM tab 11/07/19 Following Prescrptions Were Given to Patient: Linezolid 600 mg PO BID #6 tab Prescription Printed Cefdinir [Omnicef [equiv]] 300 mg PO DAILY@1500 #2 cap Prescription Printed Primary Care Physician: Marcela Kerr MD [Primary Care Provider] - Please follow up with your Primary Care Physician in: [place] 2 weeks Please Follow Up With: Terrence Salamanca MD When: in 2 weeks for abd wall and sacral wound for closure Please Follow Up With: Bairon Ospina MD When: prn for antibiotic issues Medical Necessity - Tobacco Use Smoking Status: Never smoker Meaningful Use Info Meaningful Use Diagnoses (Choose all that apply): None applicable Inpatient E&M: [id number] [facility]
--- NOTE | 2019-11-08 12:50 | CASEMGMT ---
Social Work SW called [facility] who state pt primary insurance denied preauth. Now preauth will be sought from secondary insurance. Pt cannot be admitted until [facility] Riley hears back from secondary insurance. BERNARD Finney
--- NOTE | 2019-11-08 13:08 | NURSING ---
Pt stated she is returning to the [facility] today. will leave dressings in place at this time since [facility] will need to assess the wounds when pt returns. Melanie Cha NP had been in to see patient this am also. abdominal dressing was changed this am per police shift commander RN. Pt denies further needs at this time.
[2019-11-08] MEDS: Cefdinir 300 MG Capsule PO (15:54)
--- NOTE | 2019-11-08 16:02 | CASEMGMT ---
social Work Call placed to Deepthi at [facility] and they have not heard back from [facility] at this time. Deepthi placed call to [facility] and gave the insurance company [facility] nurses station direct number to call should they have approval. JOLIE spoke with pt and with nursing staff and explained. Pt cannot return to [facility] until a precert is obtained from insurance [employer]. PLan: [facility], cannot return until insurance [employer] calls with precert BERNARD Finney
[2019-11-08 18:01] LABS: Bedside Glucose 311 mg/dL (70-110)
[2019-11-08] MEDS: Atorvastatin Calcium 20 MG Tablet PO (21:24)
[2019-11-08] MEDS: Insulin Lispro 100 UNIT/ML INSULN.PEN 7 UNIT SC (21:26)
[2019-11-08 22:25] LABS: Bedside Glucose 222 mg/dL (70-110)
[2019-11-09] VITALS (10 sets, daily range): BP systolic 129–163; BP diastolic 59–84; PULSE 61–83; RESP 18–19; TEMP 36.3–36.8; O2SAT 94–98
[2019-11-09 03:16] LABS: Bedside Glucose 155 mg/dL (70-110)
[2019-11-09] MEDS: Pregabalin 75 MG Capsule 150 MG PO ×3 (05:19→22:29)
[2019-11-09] MEDS: predniSONE 20 MG Tablet PO (07:15)
[2019-11-09] MEDS: SEVELAMER CARBONATE 800 MG TABLET 2400 MG PO ×3 (07:16→20:03)
[2019-11-09] MEDS: Juven (unflavored) Packet 1 PACKET PO ×2 (07:16→18:01)
[2019-11-09 07:26] LABS: Bedside Glucose 88 mg/dL (70-110)
[2019-11-09 09:33] LABS: Hematocrit 35.7 % (37-47); Hemoglobin 11.3 g/dL (12.0-15.0); Mean Corp Hgb Conc 31.7 g/dL (32-36); Mean Corpuscular Hgb 29.3 pg (27.0-32.0); Mean Corpuscular Volume 92.5 fL (81-99); Mean Platelet Vol. 11.3 fl (6.2-12.0); Platelet Count 178 K/mm3 (150-450); RBC Distribution Width CV 17.5 % (11.6-14.6); RBC Distribution Width SD 58.6 fl (35.1-43.9); Red Blood Count 3.86 M/mm3 (4.2-5.4); White Blood Count 16.3 K/mm3 (4.4-11.0)
[2019-11-09 09:43] LABS: Anion Gap 10 (5-15); BUN 73 mg/dL (7-18); BUN/Creat Ratio 14.2 RATIO (10-20); Calcium,Total 9.3 mg/dL (8.5-10.1); Chloride 96 mmol/L (98-107); Creatinine, Serum 5.13 mg/dL (0.55-1.02); EST Glomerular Filtration Rate 9 mL/min (>60); Est Glom Filt Rate - Afr Amer 11 mL/min (>60); Estimated Creatinine Clearance 10.45 ml/min; Glucose 147 mg/dL (74-106); Potassium 4.2 mmol/L (3.5-5.1); Sodium Level 132 mmol/L (136-145)
[2019-11-09] MEDS: Menthol/Lanolin/Calamine/Znox 113 GM Tube 1 APPLIC TOPICAL ×2 (09:57→22:29)
[2019-11-09] MEDS: Linezolid 600 MG Tablet PO ×2 (09:58→22:28)
[2019-11-09] MEDS: Sertraline 50 MG Tablet 25 MG PO (10:14)
[2019-11-09] MEDS: Pantoprazole Sodium 20 MG Tablet PO (10:15)
[2019-11-09] MEDS: Montelukast 10 MG Tablet PO (10:15)
[2019-11-09] MEDS: Midodrine HCl 5 MG Tablet 10 MG PO (10:15)
[2019-11-09] MEDS: Sertraline 100 MG Tablet PO (10:17)
[2019-11-09] MEDS: Insulin Lispro 100 UNIT/ML INSULN.PEN 30 UNIT SC ×2 (11:56→20:07)
[2019-11-09 12:05] LABS: Bedside Glucose 234 mg/dL (70-110)
--- NOTE | 2019-11-09 14:11 | PN_ITS ---
Patient Problems: Active and Suspected Problems (Last Updated 11/03/19 @ 17:[address] Toma Naylor MD) Severe sepsis (Acute) Subjective: No major acute issues. Patient had elevated blood sugar morning and afternoon and evening but then dropped to 88 at 7 AM. Brittle diabetes Objective: On exam General: Alert, Oriented x3, Cooperative HEENT: Atraumatic, PERRLA, EOMI, Normocephalic Oral: Dry Mucosa Neck: Supple, No JVD, Negative Carotid Bruits. Dialysis catheter. Lungs: Clear to auscultation, No rhonchi, No wheeze, No rales, Air entry bilaterally diminished in lung bases Cardiovascular: Regular rate, Regular Rhythm, Normal S1, Normal S2, No murmurs Abdomen: Bowel Sounds Present, Soft, Non Tender, Non-Distended Extremities: Capillary Refill Less than 3 Seconds, Edema Skin: Ulcer/ Wound - Large, subcutaneous deep ulcer on lower abdominal wall from right to left. Left buttock ulcer possible decubitus ulcer. Ulcer over left lower leg from posterior lateral to medial side. All ulcers were present on admission and healing. 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 Musculoskeletal: No Tenderness to Palpation of Joints or Extremities Neurological: Cranial nerves II-XII grossly intact Psych/Mental Status: Normal Affect, Appropriate Vitals/I&O's: Vital Signs Temp Pulse Resp BP Pulse Ox 98.3 F 70 18 147/74 H 94 11/09/19 09:53 11/09/19 09:53 11/09/19 09:53 11/09/19 09:53 11/09/19 09:53 Oxygen Delivery Method Room Air Weight: 268 lb 15.423 oz Body Mass Index (BMI) 42.6 Finger Stick Blood Glucose 158 Intake and Output for Last 24 Hours 11/07/19 11/08/19 11/09/19 23:59 23:59 23:59 Intake Total 1350 / 1350 820 / 820 400 / 400 Output Total 5000 / 5000 Balance -3650 / -3650 820 / 820 400 / 400 Microbiology Past 72 Hours 11/03/19 13:50 Blood Culture (Wb) - Anticubital Left Blood Culture - Final No growth in 5 days. 11/03/19 14:50 Blood Culture (Wb) - Left Hand Blood Culture - Final No growth in 5 days. 11/03/19 19:00 Wound - Abdominal Gram Stain - Final 11/03/19 19:00 Wound - Abdominal Wound Culture - Final Proteus mirabilis Klebsiella pneumoniae sp pneum Coag Negative Staph Laboratory Results 11/08/19 16:17: POC Glucose 311 H 11/08/19 21:18: POC Glucose 222 H 11/09/19 02:56: POC Glucose 155 H 11/09/19 07:14: POC Glucose 88 11/09/19 09:21: WBC 16.3 H, RBC 3.86 L, Hgb 11.3 L, Hct 35.7 L, MCV 92.5, MCH 29.3, MCHC 31.7 L, RDW Std Deviation 58.6 H, RDW Coeff of Perico 17.5 H, Plt Count 178, MPV 11.3 11/09/19 09:21: Sodium 132 L, Potassium 4.2, Chloride 96 L, Carbon Dioxide 26.0, Anion Gap 10, BUN 73 H, Creatinine 5.13 H, Estim Creat Clear Calc 10.45, Est GFR (MDRD) Af Amer 11 L, Est GFR (MDRD) Non-Af 9 L, BUN/Creatinine Ratio 14.2, Glucose 147 H, Calcium 9.3 11/09/19 11:54: POC Glucose 234 H Current Medications Acetaminophen (Tylenol) 650 mg PO Q6H PRN PRN PRN Reason: Pain Score 1-10/Temp > 100.7 F Atorvastatin Calcium (Lipitor) 20 mg PO QHS [facility] Last Admin: 11/08/19 21:24 Dose: 20 mg Documented by: Bisacodyl (Dulcolax) 10 mg RECTAL DAILY PRN PRN PRN Reason: Constipation Calamine/Phenol (Calmoseptine Ointment) 1 applic TOPICAL BID [facility]; Protocol Last Admin: 11/09/19 09:57 Dose: 1 applicatio Documented by: Cefdinir (Omnicef [Equiv]) 300 mg PO DAILY@1500 SHAHANA Last Admin: 11/08/19 15:54 Dose: 300 mg Documented by: Dextrose (D50w Syringe) 0 gm IV X1 PRN; Protocol PRN Reason: Hypoglycemia Glucagon () 1 mg IM .X1 PRN PRN Reason: Hypoglycemia Sodium Chloride () 250 mls @ 15 mls/hr IV .[id number] PRN PRN Reason: Saline Flush Sodium Chloride () 250 mls @ 15 mls/hr IV .[id number] PRN PRN Reason: Additional IVPB Infusion Insulin Glargine (Lantus (Bkc)) 15 units SC QHS [facility] Insulin Glargine (Lantus (Bkc)) 70 units SC 1100 [facility] Last Admin: 11/09/19 10:16 Dose: 70 unit Documented by: Insulin Human Lispro (Humalog Kwikpen (Bkc)) 15 unit SC BREAKFAST [facility] Last Admin: 11/09/19 07:16 Dose: Not Given Documented by: Insulin Human Lispro (Humalog Kwikpen (Bkc)) 30 unit SC DINNER [facility] Last Admin: 11/08/19 16:18 Dose: 30 unit Documented by: Insulin Human Lispro (Humalog Kwikpen (Bkc)) 30 unit SC LUNCH [facility] Last Admin: 11/09/19 11:56 Dose: 30 units Documented by: Insulin Human Lispro (Humalog Kwikpen (Bkc)) 7 unit SC QHS [facility] Last Admin: 11/08/19 21:26 Dose: 7 unit Documented by: Linezolid (Zyvox) 600 mg PO BID [facility] Last Admin: 11/09/19 09:58 Dose: 600 mg Documented by: Magnesium Hydroxide (Milk Of Magnesia) 30 ml PO DAILY PRN PRN Reason: Constipation Midodrine (Proamatine) 10 mg PO DAILY [facility] Last Admin: 11/09/19 10:15 Dose: 10 mg Documented by: Montelukast Sodium (Singulair) 10 mg PO DAILY [facility] Last Admin: 11/09/19 10:15 Dose: 10 mg Documented by: Morphine Sulfate () 2 mg IV Q3H PRN PRN PRN Reason: Pain Score 6-10/10 Ondansetron HCl (Zofran) 4 mg IV Q8H PRN PRN PRN Reason: NAUSEA/VOMITING Oxycodone HCl (Oxyir) 10 mg PO Q4H PRN PRN PRN Reason: Pain Score 4-5/10 Pantoprazole Sodium (Protonix) 20 mg PO DAILY [facility] Last Admin: 11/09/19 10:15 Dose: 20 mg Documented by: Polyethylene Glycol (Miralax) 17 gm PO QHS [facility] Last Admin: 11/08/19 21:20 Dose: Not Given Documented by: Prednisone () 20 mg PO DAILYCM [facility] Last Admin: 11/09/19 07:15 Dose: 20 mg Documented by: Pregabalin (Lyrica) 150 mg PO TID [facility] Last Admin: 11/09/19 13:37 Dose: 150 mg Documented by: Senna/Docusate Sodium (Senokot-S, Leti-Colace) 2 tablet PO BID PRN PRN PRN Reason: Constipation Sertraline HCl (Zoloft) 100 mg PO DAILY [facility] Last Admin: 11/09/19 10:17 Dose: 100 mg Documented by: Sertraline HCl (Zoloft) 25 mg PO DAILY [facility] Last Admin: 11/09/19 10:14 Dose: 25 mg Documented by: Sevelamer Carbonate (Renvela) 2,400 mg PO TIDCM [facility] Last Admin: 11/09/19 11:57 Dose: 2,400 mg Documented by: Simethicone (Mylicon) 80 mg PO TID [facility] Last Admin: 11/09/19 13:37 Dose: 80 mg Documented by: Sodium Chloride () 10 - 40 ml IV UD PRN PRN Reason: SALINE FLUSH Last Admin: 11/06/19 21:11 Dose: 10 ml Documented by: Medical Necessity - Tobacco Use Smoking Status: Never smoker Assessment/Plan All Active Problems (Last Updated 11/03/19 @ 17:[address] 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 Salamanca and had debridement in April 2019. Patient wound debridement was postponed. Wound culture shows Proteus mirabilis, Klebsiella pneumoniae and coagulase-negative staph. In house, patient was treated with IV vancomycin and Zosyn. Patient was seen by ID and is being discharged on linezolid and cefdinir. #2 indeterminate troponin secondary to infection/severe sepsis: Troponin is minimally elevated at 0.051, likely due to severe sepsis. Patient denied any chest pain. EKG revealed no acute ischemic changes. Repeat last troponin is normal. 2D echo in July 2018 shows EF 65% with moderate concentric LVH and mild LA enlargement. Moderate MR, mild MS. Evidence of diastolic dysfunction suggestive of chronic heart failure with preserved EF/chronic diastolic heart failure #3 ESRD on hemodialysis: Seen by international account representative Dr. Lew. Continue dialysis as per schedule T//. Midodrine changed to daily #4 type 2 diabetes mellitus: ADA diet, Accu-Cheks, insulin sliding scale, continue home doses of Lantus.: Wide fluctuation of glucose. Patient on a scheduled Lantus and pre-meal short-acting insulin. Sliding scale discontinued. 11/08: Drop in glucose to 88 at 7 AM. Decreased in Lantus insulin to 70 units a.m. and 15 units at bedtime. Discontinue lispro insulin at at bedtime. Labs reviewed. Acceptable level. Mild leukocytosis but no fever or chills. Patient is on antibiotic. #5 chronic inflammatory demyelinating polyneuropathy, paraplegia, physical debility/bedbound: Stable, continue prednisone same dose. #6 Hypotension with history of hypertension: Blood pressure was low in the morning. Midodrine 10 mg daily ordered. #7 history of right leg DVT: hold Eliquis for now because patient may go for surgery, will check INR and pro time. #8 anxiety and depression: Continue Zoloft. #9 chronic anemia: Due to anemia of chronic disease. Admission HB is 12 g/dL, stable at baseline. Platelet count is 125,000, has been fluctuating in the past . No active bleeding. Hemoglobin fluctuates between between 10 to 11 g%. #10 GERD: Continue PPI. #12 DVT prophylaxis: SCDs. Pending precertification. Possible discharge on 11/12/2019 Inpatient E&M: 16145 Subs Hosp L2
[2019-11-09 18:01] LABS: Bedside Glucose 139 mg/dL (70-110)
[2019-11-09] MEDS: Cefdinir 300 MG Capsule PO (20:05)
--- NOTE | 2019-11-09 20:08 | DIALYSIS ---
Hemodialyis completed, 4 hours on 2 K bath. Fluid removed ( using crit line for guidance) was 3 liters. Patient tolerated well. BP stable throughout treatment. Next HD will be Monday11/12/19.
[2019-11-09 20:15] LABS: Bedside Glucose 151 mg/dL (70-110)
[2019-11-09] MEDS: Atorvastatin Calcium 20 MG Tablet PO (22:29)
[2019-11-09 23:15] LABS: Bedside Glucose 156 mg/dL (70-110)
[2019-11-10] VITALS (8 sets, daily range): BP systolic 105–159; BP diastolic 62–84; PULSE 58–80; RESP 16–18; TEMP 36.4–37; O2SAT 92–96
[2019-11-10 02:45] LABS: Bedside Glucose 72 mg/dL (70-110)
[2019-11-10] MEDS: Pregabalin 75 MG Capsule 150 MG PO ×3 (06:08→22:02)
[2019-11-10 07:00] LABS: Bedside Glucose 98 mg/dL (70-110)
--- NOTE | 2019-11-10 09:33 | PCM.PN.HOSP ---
Patient Problems: Active and Suspected Problems (Last Updated 11/03/19 @ 17:[address] Toma Naylor MD) Severe sepsis (Acute) Reason for Visit: Follow-up for nonhealing ulcer and diabetes mellitus type 2 Objective: No fever or chills. Hemodynamically stable. Fingerstick glucose 72 and 98 in the morning. General: Alert, Oriented x3, Cooperative HEENT: Atraumatic, PERRLA, EOMI, Normocephalic Oral: Dry Mucosa Neck: Supple, No JVD, Negative Carotid Bruits. Dialysis catheter. Lungs: Clear to auscultation, No rhonchi, No wheeze, No rales, air entry bilaterally diminished in lung bases Cardiovascular: Regular rate, Regular Rhythm, Normal S1, Normal S2, No murmurs Abdomen: Bowel Sounds Present, Soft, Non Tender, Non-Distended Extremities: Capillary Refill Less than 3 Seconds, Edema Skin: Ulcer/ Wound - Large, subcutaneous deep ulcer on lower abdominal wall from right to left. Left buttock ulcer possible decubitus ulcer. Ulcer over left lower leg from posterior lateral to medial side. All ulcers were present on admission. 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 Musculoskeletal: No Tenderness to Palpation of Joints or Extremities Neurological: Cranial nerves II-XII grossly intact Psych/Mental Status: Normal Affect, Appropriate Vitals/I&O's: Vital Signs Temp Pulse Resp BP Pulse Ox 97.9 F 68 17 141/67 H 95 11/10/19 04:35 11/10/19 07:11 11/10/19 04:35 11/10/19 04:35 11/10/19 04:35 Oxygen Delivery Method Room Air Weight: 268 lb 15.423 oz Body Mass Index (BMI) 42.6 Finger Stick Blood Glucose 158 Intake and Output for Last 24 Hours 11/08/19 11/09/19 11/10/19 23:59 23:59 23:59 Intake Total 820 / 820 800 / 800 645 / 645 Output Total 3000 / 3000 Balance 820 / 820 -2200 / -2200 645 / 645 Microbiology Past 72 Hours 11/03/19 13:50 Blood Culture (Wb) - Anticubital Left Blood Culture - Final No growth in 5 days. 11/03/19 14:50 Blood Culture (Wb) - Left Hand Blood Culture - Final No growth in 5 days. 11/03/19 19:00 Wound - Abdominal Gram Stain - Final 11/03/19 19:00 Wound - Abdominal Wound Culture - Final Proteus mirabilis Klebsiella pneumoniae sp pneum Coag Negative Staph Laboratory Results 11/09/19 09:21: WBC 16.3 H, RBC 3.86 L, Hgb 11.3 L, Hct 35.7 L, MCV 92.5, MCH 29.3, MCHC 31.7 L, RDW Std Deviation 58.6 H, RDW Coeff of Perico 17.5 H, Plt Count 178, MPV 11.3 11/09/19 09:21: Sodium 132 L, Potassium 4.2, Chloride 96 L, Carbon Dioxide 26.0, Anion Gap 10, BUN 73 H, Creatinine 5.13 H, Estim Creat Clear Calc 10.45, Est GFR (MDRD) Af Amer 11 L, Est GFR (MDRD) Non-Af 9 L, BUN/Creatinine Ratio 14.2, Glucose 147 H, Calcium 9.3 11/09/19 11:54: POC Glucose 234 H 11/09/19 17:53: POC Glucose 139 H 11/09/19 20:01: POC Glucose 151 H 11/09/19 22:26: POC Glucose 156 H 11/10/19 02:22: POC Glucose 72 11/10/19 06:06: POC Glucose 98 Current Medications Acetaminophen (Tylenol) 650 mg PO Q6H PRN PRN PRN Reason: Pain Score 1-10/Temp > 100.7 F Atorvastatin Calcium (Lipitor) 20 mg PO QHS [facility] BEDS [facility] Last Admin: 11/09/19 22:29 Dose: 20 mg Documented by: Bisacodyl (Dulcolax) 10 mg RECTAL DAILY PRN PRN PRN Reason: Constipation Calamine/Phenol (Calmoseptine Ointment) 1 applic TOPICAL BID [facility]S [facility]; Protocol Last Admin: 11/09/19 22:29 Dose: 1 applicatio Documented by: Cefdinir (Omnicef [Equiv]) 300 mg PO DAILY@1500 SHAHANA Last Admin: 11/09/19 20:05 Dose: 300 mg Documented by: Dextrose (D50w Syringe) 0 gm IV X1 PRN; Protocol PRN Reason: Hypoglycemia Glucagon () 1 mg IM .X1 PRN PRN Reason: Hypoglycemia Sodium Chloride () 250 mls @ 15 mls/hr IV .[id number] PRN PRN Reason: Saline Flush Sodium Chloride () 250 mls @ 15 mls/hr IV .[id number] PRN PRN Reason: Additional IVPB Infusion Insulin Glargine (Lantus (Bkc)) 65 units SC 1100 [facility] 234 BEDS [facility] Insulin Glargine (Lantus (Bkc)) 10 units SC QHS [facility] 234 BEDS AT [facility] Insulin Human Lispro (Humalog Kwikpen ([facility])) 10 unit SC BREAKFAST [facility]CLUDE 234 BEDS AT [facility] Insulin Human Lispro (Humalog Kwikpen (Bkc)) 25 unit SC DINNER [facility]S [facility]CLUDE 234 BEDS AT [facility] Insulin Human Lispro (Humalog Kwikpen ([facility])) 25 unit SC LUNCH [facility]CLUDE 234 BEDS AT [facility] Linezolid (Zyvox) 600 mg PO BID [facility] 234 BEDS AT [facility] Last Admin: 11/09/19 22:28 Dose: 600 mg Documented by: Magnesium Hydroxide (Milk Of Magnesia) 30 ml PO DAILY PRN PRN Reason: Constipation Midodrine (Proamatine) 10 mg PO DAILY [facility] 234 BEDS [facility] Last Admin: 11/09/19 10:15 Dose: 10 mg Documented by: Montelukast Sodium (Singulair) 10 mg PO DAILY [facility] 234 BEDS [facility] Last Admin: 11/09/19 10:15 Dose: 10 mg Documented by: Morphine Sulfate () 2 mg IV Q3H PRN PRN PRN Reason: Pain Score 6-10/10 Ondansetron HCl (Zofran) 4 mg IV Q8H PRN PRN PRN Reason: NAUSEA/VOMITING Oxycodone HCl (Oxyir) 10 mg PO Q4H PRN PRN PRN Reason: Pain Score 4-5/10 Pantoprazole Sodium (Protonix) 20 mg PO DAILY [facility] 234 BEDS [facility] Last Admin: 11/09/19 10:15 Dose: 20 mg Documented by: Polyethylene Glycol (Miralax) 17 gm PO QHS [facility] 234 BEDS [facility] Last Admin: 11/09/19 22:29 Dose: Not Given [facility]ed [facility]: [facility] Last Admin: 11/09/19 07:15 Dose: 20 mg Documented by: Pregabalin (Lyrica) 150 mg PO TID [facility] 234 BEDS [facility] Last Admin: 11/10/19 06:08 Dose: 150 mg Documented by: Senna/Docusate Sodium (Senokot-S, Leti-Colace) 2 tablet PO BID PRN PRN PRN Reason: Constipation Sertraline HCl (Zoloft) 100 mg PO DAILY [facility] 234 BEDS [facility] Last Admin: 11/09/19 10:17 Dose: 100 mg Documented by: Sertraline HCl (Zoloft) 25 mg PO DAILY [facility] 234 BEDS [facility] Last Admin: 11/09/19 10:14 Dose: 25 mg Documented by: Sevelamer Carbonate (Renvela) 2,400 mg PO TIDCM [facility] 234 BEDS AT [facility] Last Admin: 11/09/19 20:03 Dose: 2,400 mg Documented by: Simethicone (Mylicon) 80 mg PO TID [facility] 234 BEDS AT [facility] Last Admin: 11/10/19 06:08 Dose: 80 mg Documented by: Sodium Chloride () 10 - 40 ml IV UD PRN PRN Reason: SALINE FLUSH Last Admin: 11/06/19 21:11 Dose: 10 ml Documented by: STROKE Vital Signs/Narrative: Vital Signs Pulse 11/10/19 07:11 68 Medical Necessity - Tobacco Use Smoking Status: Never smoker Assessment/Plan All Active Problems (Last Updated 11/03/19 @ 17:[address] 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 Salamanca and had debridement in April 2019. Patient wound debridement was postponed. Wound culture shows Proteus mirabilis, Klebsiella pneumoniae and coagulase-negative staph. In house, patient was treated with IV vancomycin and Zosyn. Patient was seen by ID and is being discharged on linezolid and cefdinir. #2 indeterminate troponin secondary to infection/severe sepsis: Troponin is minimally elevated at 0.051, likely due to severe sepsis. Patient denied any chest pain. EKG revealed no acute ischemic changes. Repeat last troponin is normal. 2D echo in July 2018 shows EF 65% with moderate concentric LVH and mild LA enlargement. Moderate MR, mild MS. Evidence of diastolic dysfunction suggestive of chronic heart failure with preserved EF/chronic diastolic heart failure #3 ESRD on hemodialysis: Seen by traffic control supervisor Dr. Lew. Continue dialysis as per schedule T//. Midodrine changed to daily #4 type 2 diabetes mellitus: ADA diet, Accu-Cheks, insulin sliding scale, continue home doses of Lantus.: Wide fluctuation of glucose. Patient on a scheduled Lantus and pre-meal short-acting insulin. Sliding scale discontinued. 11/08: Drop in glucose to 88 at 7 AM. Decreased in Lantus insulin to 70 units a.m. and 15 units at bedtime. Discontinue lispro insulin at at bedtime. Labs reviewed. Acceptable level. Mild leukocytosis but no fever or chills. Patient is on antibiotic. 11/09: Lantus and lispro insulin further decreased today with holding parameter. Monitor Accu-Cheks. Since patient has brittle diabetes mellitus type 2. #5 chronic inflammatory demyelinating polyneuropathy, paraplegia, physical debility/bedbound: Stable, continue prednisone same dose. #6 Hypotension with history of hypertension: Blood pressure was low in the morning. Midodrine 10 mg daily ordered. #7 history of right leg DVT: hold Eliquis for now because patient may go for surgery, will check INR and pro time. #8 anxiety and depression: Continue Zoloft. #9 chronic anemia: Due to anemia of chronic disease. Admission HB is 12 g/dL, stable at baseline. Platelet count is 125,000, has been fluctuating in the past. No active bleeding. Hemoglobin fluctuates between between 10 to 11 g%. #10 GERD: Continue PPI. #12 DVT prophylaxis: SCDs. Pending precertification. Possible discharge on 11/12/2019 AFTER hemodialysis Inpatient E&M: [id number] Subs Hosp L2
[2019-11-10] MEDS: Pantoprazole Sodium 20 MG Tablet PO (10:57)
[2019-11-10] MEDS: Montelukast 10 MG Tablet PO (10:57)
[2019-11-10] MEDS: Sertraline 50 MG Tablet 25 MG PO (10:57)
[2019-11-10] MEDS: Menthol/Lanolin/Calamine/Znox 113 GM Tube 1 APPLIC TOPICAL ×2 (10:58→21:57)
[2019-11-10] MEDS: Linezolid 600 MG Tablet PO ×2 (10:58→22:02)
[2019-11-10] MEDS: Midodrine HCl 5 MG Tablet 10 MG PO (10:58)
[2019-11-10] MEDS: predniSONE 20 MG Tablet PO (10:58)
[2019-11-10] MEDS: Juven (unflavored) Packet 1 PACKET PO ×2 (10:59→17:23)
[2019-11-10] MEDS: Sertraline 100 MG Tablet PO (11:04)
[2019-11-10] MEDS: Insulin Lispro 100 UNIT/ML INSULN.PEN 25 UNIT SC ×2 (11:55→17:23)
[2019-11-10] MEDS: SEVELAMER CARBONATE 800 MG TABLET 2400 MG PO ×2 (12:00→17:22)
[2019-11-10 12:30] LABS: Bedside Glucose 173 mg/dL (70-110)
[2019-11-10] MEDS: Cefdinir 300 MG Capsule PO (13:50)
[2019-11-10 14:01] LABS: Bedside Glucose 163 mg/dL (70-110)
[2019-11-10 18:16] LABS: Bedside Glucose 233 mg/dL (70-110)
[2019-11-10] MEDS: Atorvastatin Calcium 20 MG Tablet PO (22:02)
[2019-11-10 22:45] LABS: Bedside Glucose 227 mg/dL (70-110)
[2019-11-11 02:51] LABS: Bedside Glucose 177 mg/dL (70-110)
[2019-11-11 03:00] VITALS: BP 155/72; PULSE 71; RESP 18; TEMP 36.6; O2SAT 96
[2019-11-11 06:39] LABS: Hematocrit 31.8 % (37-47); Hemoglobin 10.2 g/dL (12.0-15.0); Mean Corp Hgb Conc 32.1 g/dL (32-36); Mean Corpuscular Hgb 29.6 pg (27.0-32.0); Mean Corpuscular Volume 92.2 fL (81-99); POSITIVE COUNT YES; POSITIVE MORPHOLOGY YES; Platelet Count 179 K/mm3 (150-450); RBC Distribution Width CV 16.8 % (11.6-14.6); RBC Distribution Width SD 56.6 fl (35.1-43.9); Red Blood Count 3.45 M/mm3 (4.2-5.4); White Blood Count 9.6 K/mm3 (4.4-11.0)
[2019-11-11 06:43] LABS: Differential Indicated MANUAL DIFF
[2019-11-11] MEDS: Pregabalin 75 MG Capsule 150 MG PO ×3 (06:52→21:48)
[2019-11-11 06:56] LABS: Anion Gap 12 (5-15); BUN 61 mg/dL (7-18); BUN/Creat Ratio 12.4 RATIO (10-20); Calcium,Total 8.6 mg/dL (8.5-10.1); Chloride 98 mmol/L (98-107); Creatinine, Serum 4.93 mg/dL (0.55-1.02); EST Glomerular Filtration Rate 10 mL/min (>60); Est Glom Filt Rate - Afr Amer 12 mL/min (>60); Estimated Creatinine Clearance 10.87 ml/min; Glucose 145 mg/dL (74-106); Potassium 3.5 mmol/L (3.5-5.1); Sodium Level 134 mmol/L (136-145)
[2019-11-11 07:04] LABS: Lymphocyte 15 % (19-41); Metamyelocyte 2 % (0-1); Monocyte 3 % (0-10); Neutrophil-Band 6 % (0-5); Neutrophil-Segmented 76 % (47-70); Total Cells Counted 100 (MANUAL DIFF)
[2019-11-11 07:05] LABS: Absolute Lymphocyte Count 1.44 X10^3/uL (0.83-4.51); Absolute Neutrophil Count 7.9 X10^3/uL (2.0-7.7); Lymphocyte # 1.44 X10^3/ul (4.0); Neutrophil # 7.87 X10^3/uL (2.7-7.7)
[2019-11-11 07:06] LABS: Monocyte# 0.29 X10^3/uL
[2019-11-11 08:29] VITALS: BP 166/90; PULSE 62; RESP 16; TEMP 36.7; O2SAT 95
[2019-11-11] MEDS: Insulin Lispro 100 UNIT/ML INSULN.PEN 10 UNIT SC (08:40)
[2019-11-11] MEDS: predniSONE 20 MG Tablet PO (08:41)
[2019-11-11] MEDS: Juven (unflavored) Packet 1 PACKET PO ×2 (08:41→17:48)
[2019-11-11] MEDS: SEVELAMER CARBONATE 800 MG TABLET 2400 MG PO ×3 (08:42→17:48)
[2019-11-11] MEDS: Linezolid 600 MG Tablet PO (08:43)
[2019-11-11] MEDS: Sertraline 100 MG Tablet PO (08:43)
[2019-11-11] MEDS: Montelukast 10 MG Tablet PO (08:43)
[2019-11-11] MEDS: Pantoprazole Sodium 20 MG Tablet PO (08:43)
[2019-11-11] MEDS: Sertraline 50 MG Tablet 25 MG PO (08:45)
[2019-11-11] MEDS: Menthol/Lanolin/Calamine/Znox 113 GM Tube 1 APPLIC TOPICAL ×2 (08:45→21:50)
[2019-11-11 09:46] LABS: Bedside Glucose 146 mg/dL (70-110)
[2019-11-11] MEDS: Insulin Lispro 100 UNIT/ML INSULN.PEN 25 UNIT SC ×2 (12:08→17:48)
[2019-11-11 12:15] LABS: Bedside Glucose 209 mg/dL (70-110)
--- NOTE | 2019-11-11 12:26 | PCM.PN.HOSP ---
Patient Problems: Active and Suspected Problems (Last Updated 11/03/19 @ 17:[address] Toma Naylor MD) Severe sepsis (Acute) Subjective: Doing well, no issues overnight. She does feel better than when she came in. No fevers for over 24 hours. Vitals/I&O's: Vital Signs Temp Pulse Resp BP Pulse Ox 98.1 F 62 16 166/90 H 95 11/11/19 08:29 11/11/19 08:29 11/11/19 08:29 11/11/19 08:29 11/11/19 08:29 Oxygen Delivery Method Room Air Weight: 267 lb 3.204 oz Body Mass Index (BMI) 42.6 Finger Stick Blood Glucose 158 Intake and Output for Last 24 Hours 11/09/19 11/10/19 11/11/19 23:59 23:59 23:59 Intake Total 800 / 800 1605 / 1605 360 / 360 Output Total 3000 / 3000 Balance -2200 / -2200 1605 / 1605 360 / 360 General: Alert, Oriented x3, Cooperative, No apparent distress HEENT: Atraumatic, PERRLA, EOMI, Normocephalic Oral: Moist Mucosa Neck: Supple, No JVD Lungs: Clear to auscultation, Normal air movement, No rhonchi, No wheeze, No rales Cardiovascular: Regular rate, Regular Rhythm, Normal S1, Normal S2, No murmurs Abdomen: Soft, Non Tender, Non-Distended, No Hepato-splenomegaly Extremities: Capillary Refill Less than 3 Seconds, Edema Skin: Ulcer/ Wound - Right lower abdomen, surrounding erythema has resolved Neurological: Neuro grossly intact, Sensory exam intact to light touch and pain Psych/Mental Status: Normal Affect, Appropriate Microbiology Past 72 Hours 11/03/19 13:50 Blood Culture (Wb) - Anticubital Left Blood Culture - Final No growth in 5 days. 11/03/19 14:50 Blood Culture (Wb) - Left Hand Blood Culture - Final No growth in 5 days. Laboratory Results 11/10/19 11:52: POC Glucose 173 H 11/10/19 13:55: POC Glucose 163 H 11/10/19 17:03: POC Glucose 233 H 11/10/19 21:52: POC Glucose 227 H 11/11/19 02:39: POC Glucose 177 H 11/11/19 06:05: WBC 9.6, RBC 3.45 L, Hgb 10.2 L, Hct 31.8 L, MCV 92.2, MCH 29.6, MCHC 32.1, RDW Std Deviation 56.6 H, RDW Coeff of Perico 16.8 H, Plt Count 179, MPV 12.0, Neut % (Auto) Not Reportable, Absolute Neuts (auto) 7.9 H, Absolute Lymphs (auto) 1.44, Total Counted 100, Neutrophils % (Manual) 76 H, Band Neutrophils % 6 H, Lymphocytes % (Manual) 15 L, Monocytes % (Manual) 3, Metamyelocytes % 2 H, Diff Path Review October11/11/19 06:05: Sodium 134 L, Potassium 3.5, Chloride 98, Carbon Dioxide 24.0, Anion Gap 12, BUN 61 H, Creatinine 4.93 H, Estim Creat Clear Calc 10.87, Est GFR (MDRD) Af Amer 12 L, Est GFR (MDRD) Non-Af 10 L, BUN/Creatinine Ratio 12.4, Glucose 145 H, Calcium 8.6 11/11/19 08:37: POC Glucose 146 H 11/11/19 12:05: POC Glucose 209 H Current Medications Acetaminophen (Tylenol) 650 mg PO Q6H PRN PRN PRN Reason: Pain Score 1-10/Temp > 100.7 F Atorvastatin Calcium (Lipitor) 20 mg PO QHS [facility] Last Admin: 11/10/19 22:02 Dose: 20 mg Documented by: Bisacodyl (Dulcolax) 10 mg RECTAL DAILY PRN PRN PRN Reason: Constipation Calamine/Phenol (Calmoseptine Ointment) 1 applic TOPICAL BID [facility]; Protocol Last Admin: 11/11/19 08:45 Dose: 1 applicatio Documented by: Dextrose (D50w Syringe) 0 gm IV X1 PRN; Protocol PRN Reason: Hypoglycemia Glucagon () 1 mg IM .X1 PRN PRN Reason: Hypoglycemia Sodium Chloride () 250 mls @ 15 mls/hr IV .[id number] PRN PRN Reason: Saline Flush Sodium Chloride () 250 mls @ 15 mls/hr IV .[id number] PRN PRN Reason: Additional IVPB Infusion Insulin Glargine (Lantus (Bkc)) 65 units SC 1100 [facility] Last Admin: 11/11/19 12:07 Dose: 65 u Documented by: Insulin Glargine (Lantus ([facility])) 10 units SC QHS [facility] Last Admin: 11/10/19 21:57 Dose: 10 units Documented by: Insulin Human Lispro (Humalog Kwikpen ([facility])) 10 unit SC BREAKFAST [facility] Last Admin: 11/11/19 08:40 Dose: 10 u Documented by: Insulin Human Lispro (Humalog Kwikpen ([facility])) 25 unit SC DINNER [facility] Last Admin: 11/10/19 17:23 Dose: 25 u Documented by: Insulin Human Lispro (Humalog Kwikpen ([facility])) 25 unit SC LUNCH [facility] Last Admin: 11/11/19 12:08 Dose: 25 u Documented by: Magnesium Hydroxide (Milk Of Magnesia) 30 ml PO DAILY PRN PRN Reason: Constipation Midodrine (Proamatine) 10 mg PO DAILY [facility] Last Admin: 11/11/19 10:34 Dose: Not Given Documented by: Montelukast Sodium (Singulair) 10 mg PO DAILY [facility] Last Admin: 11/11/19 08:43 Dose: 10 mg Documented by: Morphine Sulfate () 2 mg IV Q3H PRN PRN PRN Reason: Pain Score 6-10/10 Ondansetron HCl (Zofran) 4 mg IV Q8H PRN PRN PRN Reason: NAUSEA/VOMITING Oxycodone HCl (Oxyir) 10 mg PO Q4H PRN PRN PRN Reason: Pain Score 4-5/10 Pantoprazole Sodium (Protonix) 20 mg PO DAILY [facility] Last Admin: 11/11/19 08:43 Dose: 20 mg Documented by: Polyethylene Glycol (Miralax) 17 gm PO QHS [facility] Last Admin: 11/10/19 21:58 Dose: Not Given Documented by: Prednisone () 20 mg PO DAILYCM [facility] Last Admin: 11/11/19 08:41 Dose: 20 mg Documented by: Pregabalin (Lyrica) 150 mg PO TID [facility] Last Admin: 11/11/19 06:52 Dose: 150 mg Documented by: Senna/Docusate Sodium (Senokot-S, Leti-Colace) 2 tablet PO BID PRN PRN PRN Reason: Constipation Sertraline HCl (Zoloft) 100 mg PO DAILY [facility] Last Admin: 11/11/19 08:43 Dose: 100 mg Documented by: Sertraline HCl (Zoloft) 25 mg PO DAILY [facility] Last Admin: 11/11/19 08:45 Dose: 25 mg Documented by: Sevelamer Carbonate (Renvela) 2,400 mg PO TIDCM [facility] Last Admin: 11/11/19 12:07 Dose: 2,400 mg Documented by: Simethicone (Mylicon) 80 mg PO TID [facility] Last Admin: 11/11/19 06:52 Dose: 80 mg Documented by: Sodium Chloride () 10 - 40 ml IV UD PRN PRN Reason: SALINE FLUSH Last Admin: 11/06/19 21:11 Dose: 10 ml Documented by: STROKE Vital Signs/Narrative: Vital Signs Temp Pulse Resp BP Pulse Ox 11/11/19 08:29 98.1 F 62 16 166/90 H 95 Medical Necessity - Tobacco Use Smoking Status: Never smoker Assessment/Plan All Active Problems (Last Updated 11/03/19 @ 17:[address] Toma Naylor MD) Pressure injury of left leg, unstageable (Acute) Severe sepsis (Acute) 1. Severe sepsis secondary to acute on chronic right lower abdominal wall ulcer as well as a left leg ulcer with abscess/calciphylaxis -Wound culture with Proteus and Klebsiella, will continue with IV vancomycin and Zosyn -She was seen by infectious disease and will be discharged on Zyvox and cefdinir -Plan will be to return to shelter facility once a pre-CERT is obtained 2. ESRD on hemodialysis/type 2 diabetes -Continue with dialysis on Monday//Saturdays. Midodrine changed to daily however this morning her blood pressure was slightly elevated so this was held -Continue to monitor blood sugars and adjust insulin as necessary -As she has been given an appropriate diet her amount of insulin requirement has decreased during her stay 3. Chronic inflammatory demyelinating polyneuropathy -This is stable, will continue with her prednisone -PT/OT 4. History of a right leg DVT -she is on Eliquis though this will be held that she may go for surgery -She says that she was not supposed to have surgery until December 01 therefore she can likely resume the Eliquis on discharge 5. Anxiety and depression -Stable -Continue with Zoloft 6. Chronic anemia -Hemoglobin is at baseline, will continue to monitor 7. GERD -Stable -Continue with PPI DVT: SCDs Inpatient E&M: 90158 Subs Hosp L2
[2019-11-11 14:25] VITALS: BP 134/75; PULSE 71; RESP 14; TEMP 36.1; O2SAT 97
[2019-11-11 18:06] LABS: Bedside Glucose 248 mg/dL (70-110)
[2019-11-11 19:37] VITALS: BP 157/74; PULSE 80; RESP 17; TEMP 36.4; O2SAT 96
[2019-11-11 21:40] VITALS: BP 153/78; PULSE 65; RESP 18; TEMP 36.8; O2SAT 95
[2019-11-11 21:46] LABS: Bedside Glucose 245 mg/dL (70-110)
[2019-11-11] MEDS: Atorvastatin Calcium 20 MG Tablet PO (21:49)
[2019-11-12 02:45] LABS: Bedside Glucose 166 mg/dL (70-110)
[2019-11-12 03:20] VITALS: BP 160/78; PULSE 71; RESP 17; TEMP 36.4; O2SAT 92
[2019-11-12 05:50] LABS: Absolute Lymphocyte Count 0.98 X10^3/uL (0.83-4.51); Absolute Neutrophil Count 6.6 X10^3/uL (2.0-7.7); Basophil# 0.03 X10^3/uL; Basophil% 0.3 % (0-1); Hematocrit 31.2 % (37-47); Lymphocyte # 0.98 X10^3/ul (4.0); Mean Corp Hgb Conc 32.1 g/dL (32-36); Mean Corpuscular Hgb 29.8 pg (27.0-32.0); Mean Corpuscular Volume 92.9 fL (81-99); Mean Platelet Vol. 11.6 fl (6.2-12.0); Monocyte# 0.96 X10^3/uL; Monocyte% 10.8 % (0-10); NRBC Flagged by Analyzer 0 % (0-5); Neutrophil # 6.63 X10^3/uL (2.7-7.7); Neutrophil % 74.3 % (47-70); Platelet Count 174 K/mm3 (150-450); RBC Distribution Width CV 16.5 % (11.6-14.6); RBC Distribution Width SD 56.4 fl (35.1-43.9); Red Blood Count 3.36 M/mm3 (4.2-5.4); White Blood Count 8.9 K/mm3 (4.4-11.0)
[2019-11-12] MEDS: Pregabalin 75 MG Capsule 150 MG PO ×2 (06:04→16:22)
[2019-11-12 06:10] LABS: Anion Gap 12 (5-15); BUN 87 mg/dL (7-18); Calcium,Total 8.6 mg/dL (8.5-10.1); Chloride 97 mmol/L (98-107); Creatinine, Serum 6.23 mg/dL (0.55-1.02); EST Glomerular Filtration Rate 7 mL/min (>60); Est Glom Filt Rate - Afr Amer 9 mL/min (>60); Glucose 154 mg/dL (74-106); Potassium 3.8 mmol/L (3.5-5.1); Sodium Level 132 mmol/L (136-145)
[2019-11-12 08:05] LABS: Bedside Glucose 122 mg/dL (70-110)
[2019-11-12] MEDS: SEVELAMER CARBONATE 800 MG TABLET 2400 MG PO ×2 (08:05→16:22)
[2019-11-12] MEDS: Juven (unflavored) Packet 1 PACKET PO ×2 (08:05→16:22)
--- NOTE | 2019-11-12 09:18 | CASEMGMT ---
Social Work Phone call to Anjali at [facility] who states preauth has not yet been obtained. SW informed Anjali that pt is medically ready for d/c and requested return call when preauth given. Plan: [facility], pending BERNARD Curry
--- NOTE | 2019-11-12 09:30 | NURSING ---
wound photo: right lower abdomen
--- NOTE | 2019-11-12 09:31 | NURSING ---
wound photo: left lower abdomen
--- NOTE | 2019-11-12 09:32 | NURSING ---
wound photo: left posterior lower leg
--- NOTE | 2019-11-12 10:58 | PCM.PN.ID ---
Patient Problems: Active and Suspected Problems (Last Updated 11/03/19 @ 17:[address] Toma Naylor MD) Severe sepsis (Acute) Subjective: Feeling well, no fever, no abd pain, no n/v/d. D/c today after HD. - Physical Exam Vitals/I&O's: Vital Signs Temp Pulse Resp BP Pulse Ox 97.6 F L 71 17 160/78 H 92 11/12/19 03:20 11/12/19 03:20 11/12/19 03:20 11/12/19 03:20 11/12/19 03:20 Oxygen Delivery Method Room Air Weight: 122.9 kg Body Mass Index (BMI) 42.6 Finger Stick Blood Glucose 158 Intake and Output for Last 24 Hours 11/10/19 11/11/19 11/12/19 23:59 23:59 23:59 Intake Total 1605 / 1605 850 / 850 150 / 150 Output Total 0 / 0 Balance 1605 / 1605 850 / 850 150 / 150 General: Alert, Cooperative, No apparent distress Lungs: Clear to auscultation, Normal air movement Cardiovascular: Regular rate, Regular Rhythm Abdomen: Soft, Non Tender, Non-Distended Skin: Ulcer/ Wound Microbiology Past 72 Hours 11/03/19 13:50 Blood Culture (Wb) - Anticubital Left Blood Culture - Final No growth in 5 days. Laboratory Results 11/11/19 12:05: POC Glucose 209 H 11/11/19 17:43: POC Glucose 248 H 11/11/19 21:39: POC Glucose 245 H 11/12/19 02:34: POC Glucose 166 H 11/12/19 05:40: WBC 8.9, RBC 3.36 L, Hgb 10.0 L, Hct 31.2 L, MCV 92.9, MCH 29.8, MCHC 32.1, RDW Std Deviation 56.4 H, RDW Coeff of Perico 16.5 H, Plt Count 174, MPV 11.6, Immature Gran % (Auto) 3.600 H, Neut % (Auto) 74.3 H, Lymph % (Auto) 11.0 L, [place] % (Auto) 10.8 H, Eos % (Auto) 0.0, Baso % (Auto) 0.3, Absolute Neuts (auto) 6.6, Absolute Lymphs (auto) 0.98, Nucleated RBC % 0 11/12/19 05:40: Sodium 132 L, Potassium 3.8, Chloride 97 L, Carbon Dioxide 23.0, Anion Gap 12, BUN 87 H, Creatinine 6.23 H, Estim Creat Clear Calc 8.60, Est GFR (MDRD) Af Amer 9 L, Est GFR (MDRD) Non-Af 7 L, BUN/Creatinine Ratio 14.0, Glucose 154 H, Calcium 8.6 11/12/19 07:58: POC Glucose 122 H Current Medications Acetaminophen (Tylenol) 650 mg PO Q6H PRN PRN PRN Reason: Pain Score 1-10/Temp > 100.7 F Atorvastatin Calcium (Lipitor) 20 mg PO QHS [facility] Last Admin: 11/11/19 21:49 Dose: 20 mg Documented by: Bisacodyl (Dulcolax) 10 mg RECTAL DAILY PRN PRN PRN Reason: Constipation Calamine/Phenol (Calmoseptine Ointment) 1 applic TOPICAL BID [facility]; Protocol Last Admin: 11/11/19 21:50 Dose: 1 applicatio Documented by: Dextrose (D50w Syringe) 0 gm IV X1 PRN; Protocol PRN Reason: Hypoglycemia Glucagon () 1 mg IM .X1 PRN PRN Reason: Hypoglycemia Sodium Chloride () 250 mls @ 15 mls/hr IV .[id number] PRN PRN Reason: Saline Flush Sodium Chloride () 250 mls @ 15 mls/hr IV .[id number] PRN PRN Reason: Additional IVPB Infusion Insulin Glargine (Lantus (Bkc)) 65 units SC 1100 [facility] Last Admin: 11/11/19 12:07 Dose: 65 u Documented by: Insulin Glargine (Lantus (Bkc)) 10 units SC QHS [facility] Last Admin: 11/11/19 21:49 Dose: 10 units Documented by: Insulin Human Lispro (Humalog Kwikpen (Bkc)) 10 unit SC BREAKFAST [facility] Last Admin: 11/12/19 08:00 Dose: Not Given Documented by: Insulin Human Lispro (Humalog Kwikpen (Bkc)) 25 unit SC DINNER [facility] Last Admin: 11/11/19 17:48 Dose: 25 u Documented by: Insulin Human Lispro (Humalog Kwikpen (Bkc)) 25 unit SC LUNCH [facility] Last Admin: 11/11/19 12:08 Dose: 25 u Documented by: Magnesium Hydroxide (Milk Of Magnesia) 30 ml PO DAILY PRN PRN Reason: Constipation Midodrine (Proamatine) 10 mg PO DAILY [facility] Last Admin: 11/11/19 10:34 Dose: Not Given Documented by: Montelukast Sodium (Singulair) 10 mg PO DAILY [facility] Last Admin: 11/11/19 08:43 Dose: 10 mg Documented by: Morphine Sulfate () 2 mg IV Q3H PRN PRN PRN Reason: Pain Score 6-10/10 Ondansetron HCl (Zofran) 4 mg IV Q8H PRN PRN PRN Reason: NAUSEA/VOMITING Oxycodone HCl (Oxyir) 10 mg PO Q4H PRN PRN PRN Reason: Pain Score 4-5/10 Pantoprazole Sodium (Protonix) 20 mg PO DAILY [facility] Last Admin: 11/11/19 08:43 Dose: 20 mg Documented by: Polyethylene Glycol (Miralax) 17 gm PO QHS [facility] Last Admin: 11/11/19 21:49 Dose: Not Given Documented by: Prednisone () 20 mg PO DAILYCM [facility] Last Admin: 11/11/19 08:41 Dose: 20 mg Documented by: Pregabalin (Lyrica) 150 mg PO TID [facility] Last Admin: 11/12/19 06:04 Dose: 150 mg Documented by: Senna/Docusate Sodium (Senokot-S, Leti-Colace) 2 tablet PO BID PRN PRN PRN Reason: Constipation Sertraline HCl (Zoloft) 100 mg PO DAILY [facility] Last Admin: 11/11/19 08:43 Dose: 100 mg Documented by: Sertraline HCl (Zoloft) 25 mg PO DAILY [facility] Last Admin: 11/11/19 08:45 Dose: 25 mg Documented by: Sevelamer Carbonate (Renvela) 2,400 mg PO TIDCM [facility] Last Admin: 11/12/19 08:05 Dose: 2,400 mg Documented by: Simethicone (Mylicon) 80 mg PO TID [facility] Last Admin: 11/12/19 06:04 Dose: 80 mg Documented by: Sodium Chloride () 10 - 40 ml IV UD PRN PRN Reason: SALINE FLUSH Last Admin: 11/06/19 21:11 Dose: 10 ml Documented by: Medical Necessity - Tobacco Use Smoking Status: Never smoker Route of nutrition/ use of supplements: [] Nutritional Intake: [] IV Site: [] Vargas Catheter: [] - Assessment/Plan Antibiotics: [] Assessment/Plan: [] Active and Suspected Problems (Last Updated 11/03/19 @ 17:[address] Toma Naylor MD) Severe sepsis (Acute) Improved. Gets HD --sat. MSSA pcr (+). Low suspicion for covid, test was neg. Ok for d/c back to [facility]CF off of abx. Will follow as needed
[2019-11-12 11:00] VITALS: BP 140/80; BP 157/102; PULSE 71; PULSE 86; RESP 18; RESP 20; TEMP 36.7; TEMP 36.8; O2SAT 96
--- NOTE | 2019-11-12 11:22 | CASEMGMT ---
Social Work Return call from [facility] and precert has been obtained. Pt currently receiving hemodialysis which should be complete by 3:30. Transportation arrange with [facility] ambulance for 5:00 picker machine operator by cot. Alba at [facility] notified. SW met with pt and RN in room and explained that precert has been obtained and transport set up at 5:00. Pt is agreeable and states she will call her and let him know. Orders will be faxed when obtained. Plan: [facility] with 5:00 pickup BERNARD Finney
[2019-11-12] MEDS: Midodrine HCl 5 MG Tablet 10 MG PO (11:23)
--- NOTE | 2019-11-12 11:26 | PCM.TXEXTCAR ---
- Diet 11/03/19 17:38 Diet: Cardiac: Calorie-Controlled Food consistency:: Regular Liquid Consistency:: Regular/Thin Dietary Modifications:: Low Phosphorous Diet Low Potassium Restriction Fluid Restricted Diet Diet Comments: low sodium, low phos, low potassium with 1500 ml FR How many daily calories?: 2000 calorie - Routine Orders/Code Status Suppository Type: Dulcolax 10mg Suppository Frequency: Daily PRN Routine Lab Work: CBC - EVERY WEEK, - - CMP every week while on antiboitc and follow with Dr Ospina Code Status: Full Code - Wound(s) R lower abdomen Wound Type: nonhealing wound Dressing Change: Wet to Dry Dressing generalized abdomen Wound Type: few scattered healing wounds L posterior leg Wound Type: pressure injury vs. calciphylaxis Dressing Change: Dry Sterile Dressing Coccyx Wound Type: Pressure Injury L buttock Wound Type: shearing vs. pressure left gluteal crease Wound Type: shearing - Therapies Weight Bearing: Weight bearing as tolerated Extremity Affected:: Bilateral Lower Physical Therapy: Eval and Treat Occupational Therapy: Eval and Treat - Allergies/Procedures Done in Hospital Allergies/Adverse Reactions: Allergies latex Allergy (Verified 10/23/19 10:58) Hives Sulfa (Sulfonamide Antibiotics) Allergy (Verified 10/23/19 10:58) Rash codeine Adverse Reaction (Verified 10/23/19 10:58) Confusion - Type of Care/Length of Stay Estimated LOS: Convalescent Care Less Than 30 days Type of Care Needed: Skilled Rehab Potential: Fair Prognosis: Fair - Additional Orders/Day of Discharge Additional Orders: Follow-up in wound center every week. Day of Discharge: 11/12/19 - Dietary and Speech Recommendations Dietitian Recommendations/Changes: Continue 1999 calorie; cardiac; low sodium, low K+, low phos with 1500 ml fluid restriction--protein restriction not indicated with HD & pt needs extra protein for wound healing. Will add Fernando BID for wound healing. - Follow Up Care Primary Care Physician: Marcela Kerr MD [Primary Care Provider] - Please follow up with your Primary Care Physician in: [place] 2 weeks Please Follow Up With: Terrence Salamanca MD When: in 2 weeks for abd wall and sacral wound for closure Please Follow Up With: Bairon Ospina MD When: prn for antibiotic issues
--- NOTE | 2019-11-12 11:28 | PN.RENAL_ITS ---
Patient Problems: Active and Suspected Problems (Last Updated 11/03/19 @ 17:[address] Toma Naylor MD) Severe sepsis (Acute) Subjective: seen at start of dialysis. Denies SOB, cough. Still with edema, low sodium 132. Run on 3K bath. Afebrile. DC to ECF after dialysis today. - Physical Exam Vitals/I&O's: Vital Signs Temp Pulse Resp BP Pulse Ox 97.6 F L 71 17 160/78 H 92 11/12/19 03:20 11/12/19 03:20 11/12/19 03:20 11/12/19 03:20 11/12/19 03:20 Oxygen Delivery Method Room Air Weight: 122.9 kg Body Mass Index (BMI) 42.6 Finger Stick Blood Glucose 158 Intake and Output for Last 24 Hours 11/10/19 11/11/19 11/12/19 23:59 23:59 23:59 Intake Total 1605 / 1605 850 / 850 150 / 150 Output Total 0 / 0 Balance 1605 / 1605 850 / 850 150 / 150 General: Alert, Oriented x3, Cooperative, No apparent distress Cardiovascular: Regular rate Extremities: Edema - 2+ pitting BLE Skin: Ulcer/ Wound - pannus Neurological: - - paralysis Psych/Mental Status: Normal Affect, Appropriate, Alert and oriented to time, place, person, mood and affect Microbiology Past 72 Hours 11/03/19 13:50 Blood Culture (Wb) - Anticubital Left Blood Culture - Final No growth in 5 days. Laboratory Results 11/11/19 12:05: POC Glucose 209 H 11/11/19 17:43: POC Glucose 248 H 11/11/19 21:39: POC Glucose 245 H 11/12/19 02:34: POC Glucose 166 H 11/12/19 05:40: WBC 8.9, RBC 3.36 L, Hgb 10.0 L, Hct 31.2 L, MCV 92.9, MCH 29.8, MCHC 32.1, RDW Std Deviation 56.4 H, RDW Coeff of Perico 16.5 H, Plt Count 174, MPV 11.6, Immature Gran % (Auto) 3.600 H, Neut % (Auto) 74.3 H, Lymph % (Auto) 11.0 L, [place] % (Auto) 10.8 H, Eos % (Auto) 0.0, Baso % (Auto) 0.3, Absolute Neuts (auto) 6.6, Absolute Lymphs (auto) 0.98, Nucleated RBC % 0 11/12/19 05:40: Sodium 132 L, Potassium 3.8, Chloride 97 L, Carbon Dioxide 23.0, Anion Gap 12, BUN 87 H, Creatinine 6.23 H, Estim Creat Clear Calc 8.60, Est GFR (MDRD) Af Amer 9 L, Est GFR (MDRD) Non-Af 7 L, BUN/Creatinine Ratio 14.0, Glucose 154 H, Calcium 8.6 11/12/19 07:58: POC Glucose 122 H Current Medications Acetaminophen (Tylenol) 650 mg PO Q6H PRN PRN PRN Reason: Pain Score 1-10/Temp > 100.7 F Atorvastatin Calcium (Lipitor) 20 mg PO QHS [facility] Last Admin: 11/11/19 21:49 Dose: 20 mg Documented by: Bisacodyl (Dulcolax) 10 mg RECTAL DAILY PRN PRN PRN Reason: Constipation Calamine/Phenol (Calmoseptine Ointment) 1 applic TOPICAL BID [facility]; Protocol Last Admin: 11/11/19 21:50 Dose: 1 applicatio Documented by: Dextrose (D50w Syringe) 0 gm IV X1 PRN; Protocol PRN Reason: Hypoglycemia Glucagon () 1 mg IM .X1 PRN PRN Reason: Hypoglycemia Sodium Chloride () 250 mls @ 15 mls/hr IV .[id number] PRN PRN Reason: Saline Flush Sodium Chloride () 250 mls @ 15 mls/hr IV .[id number] PRN PRN Reason: Additional IVPB Infusion Insulin Glargine (Lantus (Bkc)) 65 units SC 1100 [facility] Last Admin: 11/11/19 12:07 Dose: 65 u Documented by: Insulin Glargine (Lantus (Bkc)) 10 units SC QHS [facility] Last Admin: 11/11/19 21:49 Dose: 10 units Documented by: Insulin Human Lispro (Humalog Kwikpen (Bk)) 10 unit SC BREAKFAST [facility] Last Admin: 11/12/19 08:00 Dose: Not Given Documented by: Insulin Human Lispro (Humalog Kwikpen (Bkc)) 25 unit SC DINNER [facility] Last Admin: 11/11/19 17:48 Dose: 25 u Documented by: Insulin Human Lispro (Humalog Kwikpen (Bkc)) 25 unit SC LUNCH [facility] Last Admin: 11/11/19 12:08 Dose: 25 u Documented by: Magnesium Hydroxide (Milk Of Magnesia) 30 ml PO DAILY PRN PRN Reason: Constipation Midodrine (Proamatine) 10 mg PO DAILY [facility] Last Admin: 11/12/19 11:23 Dose: 10 mg Documented by: Montelukast Sodium (Singulair) 10 mg PO DAILY [facility] Last Admin: 11/11/19 08:43 Dose: 10 mg Documented by: Morphine Sulfate () 2 mg IV Q3H PRN PRN PRN Reason: Pain Score 6-10/10 Ondansetron HCl (Zofran) 4 mg IV Q8H PRN PRN PRN Reason: NAUSEA/VOMITING Oxycodone HCl (Oxyir) 10 mg PO Q4H PRN PRN PRN Reason: Pain Score 4-5/10 Pantoprazole Sodium (Protonix) 20 mg PO DAILY [facility] Last Admin: 11/11/19 08:43 Dose: 20 mg Documented by: Polyethylene Glycol (Miralax) 17 gm PO QHS [facility] Last Admin: 11/11/19 21:49 Dose: Not Given Documented by: Prednisone () 20 mg PO DAILYCM [facility] Last Admin: 11/11/19 08:41 Dose: 20 mg Documented by: Pregabalin (Lyrica) 150 mg PO TID [facility] Last Admin: 11/12/19 06:04 Dose: 150 mg Documented by: Senna/Docusate Sodium (Senokot-S, Leti-Colace) 2 tablet PO BID PRN PRN PRN Reason: Constipation Sertraline HCl (Zoloft) 100 mg PO DAILY [facility] Last Admin: 11/11/19 08:43 Dose: 100 mg Documented by: Sertraline HCl (Zoloft) 25 mg PO DAILY [facility] Last Admin: 11/11/19 08:45 Dose: 25 mg Documented by: Sevelamer Carbonate (Renvela) 2,400 mg PO TIDCM [facility] Last Admin: 11/12/19 08:05 Dose: 2,400 mg Documented by: Simethicone (Mylicon) 80 mg PO TID [facility] Last Admin: 11/12/19 06:04 Dose: 80 mg Documented by: Sodium Chloride () 10 - 40 ml IV UD PRN PRN Reason: SALINE FLUSH Last Admin: 11/06/19 21:11 Dose: 10 ml Documented by: Medical Necessity - Tobacco Use Smoking Status: Never smoker Assessment/Plan All Active Problems (Last Updated 11/03/19 @ 17:[address] Toma Naylor MD) Pressure injury of left leg, unstageable (Acute) Severe sepsis (Acute) 1. ESRD HD , , Sat. Seen on HD. Fluid removal as tolerated. BP stable 2. Fever with leukocytosis improved with iv antibx. Blood cx negative. DC on oral antibx per ID 3. Chronic hypotension. Midodrine daily. 4. Anemia hgb stable
--- NOTE | 2019-11-12 11:33 | DS.PCM_ITS ---
Discharge Date and Diagnosis - Problem List Patient Problems: Active and Suspected Problems (Last Updated 11/03/19 @ 17:[address] Toma Naylor MD) Severe sepsis (Acute) Date of Admission: 11/03/19 Date of Discharge: 11/12/19 - Primary Discharge Diagnosis Acute Problems: Active Problems (Last Updated 11/03/19 @ 17:[address] Toma Naylor MD) Severe sepsis (Acute) - Secondary Discharge Diagnosis Chronic Problems: Chronic Problems (Last Updated 11/03/19 @ 17:[address] 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) nonhealing infected diabetic ulcerated abscesses right lateral abdominal wall Wound, open, abdominal wall, anterior (Chronic) Anxiety and depression (Chronic) ESRD (end stage renal disease) (Chronic) Morbid obesity (Chronic) Chronic diastolic CHF (congestive heart failure) (Chronic) 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 CXR: IMPRESSION: Overall similar appearance compared to prior exam with no evidence of new focal airspace disease. CT Abd/pelvis: IMPRESSION: Open wound in the anterior abdominal wall. There is mild cellulitis. There is no abnormal fluid collections suggest an abscess. Consultations 11/03/19 17:36 Consult: Onc/Wound/robotics specialist Routine Comment: ID Nephrology Surgery Operations: None, - Procedures: None Summary of Care Provided: Per HPI: The patient is a 59 year old F with past medical history as mentioned above presented to the emergency room because of fever. Patient lives at the assisted and she was sent into ED for fever. We do not know how high was her temperature. Patient complained of being weak, tired and fatigued over the last several days. She denied cough or sputum production. She denied sore throat, nasal sinus congestion. She does have chronic lower abdominal pain secondary to chronic lower abdominal nonhealing infected ulcer with recurrence and she mentioned that she has no significant pain apart when she start moves. She mentioned that she is supposed to go for closure of her lower abdominal wound around the beginning of coronavirus pandemic by Dr. Salamanca but that was delayed because of the pandemic. She denied chest pain, shortness of breath. She does not make any urine and she is on dialysis. She will history of ESRD on dialysis on Tuesdays, and Saturdays. Her kidney function is stable and potassium is normal. She will history of type 2 diabetes mellitus and she has been on insulin, blood sugar has been under fair control and her hemoglobin A1c was 7.5% on September,. She has history of chronic inflammatory demyelinating polyneuropathy with bilateral lower extremity weakness and she has been on oral prednisone for a long time. In the emergency department, she had a low-grade fever of 100 Fahrenheit, was tachycardic, blood pressure was stable, pulse ox was 98% on room air. Routine blood work was remarkable for leukocytosis, chronic thrombocytopenia, BUN of 32, creatinine is 4.34. Lactic acid was 2.4. LFT was unremarkable. EKG revealed sinus tachycardia with prolonged QTC, no acute segment changes. Troponin is minimally elevated at 0.051. Chest x-ray showed no acute findings. CT scan brain showed no acute infarct or hemorrhage. She is being admitted for severe sepsis due to recurrent lower/right lateral abdominal wall nonhealing infected diabetic ulcer with abscess secondary to calciphylaxis. Hospital Course: 1. Severe sepsis secondary to acute on chronic right lower abdominal wall ulcer as well as a left leg ulcer with abscess/[id number] female presenting from the assisted with a fever was found to have severe sepsis from her chronic right lower abdominal wall ulcer as well as a left leg ulcer. She has been on antibiotics periodically over the last several months waiting to have surgery. Her initial surgery was canceled due to the coronavirus pandemic. Plan is for definitive treatment of this wound in November. She has been on vancomycin and Zosyn during her stay here as well as wound care. Infectious disease was consulted and felt that given her hospital stay duration, she has completed antibiotics and does not need any shelter facility. Her wounds did grow Proteus and Klebsiella. Discharge planning was discussed with the patient and she expressed understanding of the risks and benefits of discharge today. She is undergoing dialysis at the moment and can be discharged back to the shelter facility once completed. 2. ESRD on hemodialysis/type 2 diabetes-nephrology was consulted to assist with her dialysis which she receives Monday//Saturdays. She is undergoing dialysis treatment today and then be discharged back to SNF. Midodrine has been started however her blood pressure is much better and will not need this medication on discharge. Infection can resume her Norvasc given that her blood pressures are now in the 150 systolic. No major changes to her insulin regimen. 3. Her other medical diagnoses were evaluated and her home medications were continued where appropriate Patient Problems: Active and Suspected Problems (Last Updated 11/03/19 @ 17:[address] Toma Naylor MD) Severe sepsis (Acute) - Physical Exam Vitals/I&O's: Vital Signs Temp Pulse Resp BP Pulse Ox 97.6 F L 71 17 160/78 H 92 11/12/19 03:20 11/12/19 03:20 11/12/19 03:20 11/12/19 03:20 11/12/19 03:20 Oxygen Delivery Method Room Air Weight: 270 lb 15.17 oz Body Mass Index (BMI) 42.6 Finger Stick Blood Glucose 158 Intake and Output for Last 24 Hours 11/10/19 11/11/19 11/12/19 23:59 23:59 23:59 Intake Total 1605 / 1605 850 / 850 150 / 150 Output Total 0 / 0 Balance 1605 / 1605 850 / 850 150 / 150 General: Alert, Oriented x3, Cooperative, No apparent distress HEENT: Atraumatic, PERRLA, EOMI, Normocephalic Oral: Moist Mucosa Neck: Supple, No JVD Lungs: Clear to auscultation, Normal air movement, No rhonchi, No wheeze, No rales Cardiovascular: Regular rate, Regular Rhythm, Normal S1, Normal S2, No murmurs Abdomen: Soft, Non Tender, Non-Distended, No Hepato-splenomegaly Extremities: Capillary Refill Less than 3 Seconds, Edema Skin: Ulcer/ Wound - Right lower abdomen, surrounding erythema has resolved Neurological: Neuro grossly intact, Sensory exam intact to light touch and pain Psych/Mental Status: Normal Affect, Appropriate Microbiology Past 72 Hours 11/03/19 13:50 Blood Culture (Wb) - Anticubital Left Blood Culture - Final No growth in 5 days. Laboratory Results 11/11/19 12:05: POC Glucose 209 H 11/11/19 17:43: POC Glucose 248 H 11/11/19 21:39: POC Glucose 245 H 11/12/19 02:34: POC Glucose 166 H 11/12/19 05:40: WBC 8.9, RBC 3.36 L, Hgb 10.0 L, Hct 31.2 L, MCV 92.9, MCH 29.8, MCHC 32.1, RDW Std Deviation 56.4 H, RDW Coeff of Perico 16.5 H, Plt Count 174, MPV 11.6, Immature Gran % (Auto) 3.600 H, Neut % (Auto) 74.3 H, Lymph % (Auto) 11.0 L, Morrow % (Auto) 10.8 H, Eos % (Auto) 0.0, Baso % (Auto) 0.3, Absolute Neuts (auto) 6.6, Absolute Lymphs (auto) 0.98, Nucleated RBC % 0 11/12/19 05:40: Sodium 132 L, Potassium 3.8, Chloride 97 L, Carbon Dioxide 23.0, Anion Gap 12, BUN 87 H, Creatinine 6.23 H, Estim Creat Clear Calc 8.60, Est GFR (MDRD) Af Amer 9 L, Est GFR (MDRD) Non-Af 7 L, BUN/Creatinine Ratio 14.0, Glucose 154 H, Calcium 8.6 11/12/19 07:58: POC Glucose 122 H Current Medications Acetaminophen (Tylenol) 650 mg PO Q6H PRN PRN PRN Reason: Pain Score 1-10/Temp > 100.7 F Atorvastatin Calcium (Lipitor) 20 mg PO QHS [facility] Last Admin: 11/11/19 21:49 Dose: 20 mg Documented by: Bisacodyl (Dulcolax) 10 mg RECTAL DAILY PRN PRN PRN Reason: Constipation Calamine/Phenol (Calmoseptine Ointment) 1 applic TOPICAL BID [facility]; Protocol Last Admin: 11/11/19 21:50 Dose: 1 applicatio Documented by: Dextrose (D50w Syringe) 0 gm IV X1 PRN; Protocol PRN Reason: Hypoglycemia Glucagon () 1 mg IM .X1 PRN PRN Reason: Hypoglycemia Sodium Chloride () 250 mls @ 15 mls/hr IV .[id number] PRN PRN Reason: Saline Flush Sodium Chloride () 250 mls @ 15 mls/hr IV .[id number] PRN PRN Reason: Additional IVPB Infusion Insulin Glargine (Lantus (Bkc)) 65 units SC 1100 [facility] Last Admin: 11/11/19 12:07 Dose: 65 u Documented by: Insulin Glargine (Lantus (Bkc)) 10 units SC QHS [facility] Last Admin: 11/11/19 21:49 Dose: 10 units Documented by: Insulin Human Lispro (Humalog Kwikpen (Bk)) 10 unit SC BREAKFAST [facility] Last Admin: 11/12/19 08:00 Dose: Not Given Documented by: Insulin Human Lispro (Humalog Kwikpen (Bk)) 25 unit SC DINNER [facility] Last Admin: 11/11/19 17:48 Dose: 25 u Documented by: Insulin Human Lispro (Humalog Kwikpen (Bkc)) 25 unit SC LUNCH [facility] Last Admin: 11/11/19 12:08 Dose: 25 u Documented by: Magnesium Hydroxide (Milk Of Magnesia) 30 ml PO DAILY PRN PRN Reason: Constipation Midodrine (Proamatine) 10 mg PO DAILY [facility] Last Admin: 11/12/19 11:23 Dose: 10 mg Documented by: Montelukast Sodium (Singulair) 10 mg PO DAILY [facility] Last Admin: 11/11/19 08:43 Dose: 10 mg Documented by: Morphine Sulfate () 2 mg IV Q3H PRN PRN PRN Reason: Pain Score 6-10/10 Ondansetron HCl (Zofran) 4 mg IV Q8H PRN PRN PRN Reason: NAUSEA/VOMITING Oxycodone HCl (Oxyir) 10 mg PO Q4H PRN PRN PRN Reason: Pain Score 4-5/10 Pantoprazole Sodium (Protonix) 20 mg PO DAILY [facility] Last Admin: 11/11/19 08:43 Dose: 20 mg Documented by: Polyethylene Glycol (Miralax) 17 gm PO QHS [facility] Last Admin: 11/11/19 21:49 Dose: Not Given Documented by: Prednisone () 20 mg PO DAILYCM [facility] Last Admin: 11/11/19 08:41 Dose: 20 mg Documented by: Pregabalin (Lyrica) 150 mg PO TID [facility] Last Admin: 11/12/19 06:04 Dose: 150 mg Documented by: Senna/Docusate Sodium (Senokot-S, Leti-Colace) 2 tablet PO BID PRN PRN PRN Reason: Constipation Sertraline HCl (Zoloft) 100 mg PO DAILY [facility] Last Admin: 11/11/19 08:43 Dose: 100 mg Documented by: Sertraline HCl (Zoloft) 25 mg PO DAILY [facility] Last Admin: 11/11/19 08:45 Dose: 25 mg Documented by: Sevelamer Carbonate (Renvela) 2,400 mg PO TIDCM [facility] Last Admin: 11/12/19 08:05 Dose: 2,400 mg Documented by: Simethicone (Mylicon) 80 mg PO TID [facility] Last Admin: 11/12/19 06:04 Dose: 80 mg Documented by: Sodium Chloride () 10 - 40 ml IV UD PRN PRN Reason: SALINE FLUSH Last Admin: 11/06/19 21:11 Dose: 10 ml Documented by: Home Medications: Medications to take at Discharge Montelukast [Singulair] 10 mg PO DAILY 10/29/13 Sertraline HCl 125 mg PO DAILY 06/14/18 Pantoprazole Sodium [Protonix] 20 mg PO DAILY 06/20/18 Sevelamer Carbonate [Renvela] 2,400 mg PO TIDCM 01/19/19 multivitamin 1 tab PO DAILY 04/03/19 Insulin Lispro [Admelog Solostar] 7 unit SQ QHS 04/25/19 Apixaban [Eliquis] 5 mg PO BID #90 tab 05/03/19 Magnesium Hydroxide [Milk Of Magnesia] 30 ml PO DAILY PRN #1 udc 05/03/19 Arginine/Ascorbate Sod/Pedro AC [Arginaid Powder] 1 ea PO BID 05/27/19 Bisacodyl [Dulcolax] 10 mg RECTAL DAILY PRN PRN 05/27/19 Sennosides/Docusate Sodium [Senna Plus 8.6-50 mg Softgel] 2 ea PO BID 05/27/19 SimETHICONE [Mylicon] 80 mg PO TID 06/27/19 Insulin Lispro [Admelog Solostar] 15 unit SQ BREAKFAST 09/18/19 Insulin Lispro [Admelog Solostar] 28 unit SQ DINNER 09/18/19 Acetaminophen [Tylenol Tablet] 650 mg PO Q6H PRN PRN tab 09/23/19 Menthol/Lanolin/Calamine/Znox [Calmoseptine Ointment] 1 applic TOPICAL TID tube 09/23/19 Sodium Hypochlorite [Dakins Solution 0.25% (1/2 Strength)] 1 applic TOPICAL BID bottle 09/23/19 Amlodipine Besylate [Norvasc] 2.5 mg PO SUMOWEFR 10/18/19 Insulin Lispro [Admelog Solostar] 28 unit SQ LUNCH 10/18/19 Polyethylene Glycol 3350 [Miralax] 17 gm PO QHS 10/18/19 Vit E Acet/Gly/Dimeth/Water [Cetaphil Moisturizing Lotion] 237 ml TP DAILY 10/18/19 atorvastatin 20 mg tablet 20 mg PO QHS 10/23/19 pregabalin 150 mg capsule 150 mg PO TID 10/23/19 Activated Charcoal [Charcoal] 200 mg PO PRN PRN 11/03/19 Multivit-Min/Iron/Folic/Lutein [Centrum Silver Women Tablet] 1 ea PO DAILY 11/03/19 Insulin Glargine [Lantus SoloStar Pen] 80 units SUBCUT DAILY #0 11/06/19 Insulin Glargine,Hum.rec.anlog [Basaglar Kwikpen U-100] 20 unit SUBCUT QHS #0 11/06/19 Insulin Glargine [Lantus SoloStar Pen] 25 units SUBCUT QHS pen 11/07/19 predniSONE tablet 20 mg PO DAILYCM tab 11/07/19 Primary Care Physician: Marcela Kerr MD [Primary Care Provider] - Please follow up with your Primary Care Physician in: [place] 2 weeks Please Follow Up With: Terrence Salamanca MD When: in 2 weeks for abd wall and sacral wound for closure Please Follow Up With: Bairon Ospina MD When: prn for antibiotic issues Disposition: Custodial facility Minutes spent on discharge:: 35 Patient Condition:: Stable Medical Necessity - Tobacco Use Smoking Status: Never smoker Meaningful Use Info Meaningful Use Diagnoses (Choose all that apply): None applicable Inpatient E&M: 80734 Disch Hosp
--- NOTE | 2019-11-12 11:33 | DIALYSIS ---
Addendum entered by Doroteo Hernadez 11/12/19 15:47: Hemodialysis complete. 4 hour run, 3k bath. Net fluid removed = 2800 ml. Patient tolerated HD tx well. Left chest CVC: site has pink area. Dr. Lew made aware. Dressing dry and intact. Lumen flushed with NS, filled to volume with Heparin, capped and clamped. Report given to primary RNCookie. Original Note: Report from primary RNCookie Access: Left chest CVC. small section under dressing pink. Patient denies pain or tenderness at site. No exudate at site. Patient states pink area has been there for the last couple of HD treatments. Site was cleansed and dressing changed last HD tx. Connections secure, hemosafe applied x 2.
[2019-11-12 11:52] LABS: Pathologist Review Reviewed
--- NOTE | 2019-11-12 13:37 | NURSING ---
Nurse to nurse report called to Sabrina @ [facility]. Transport to be here @ 1700, after dialysis is finished.
[2019-11-12] MEDS: Heparin 10,000 UNITS/10 ML Vial 3900 UNITS IV (15:17)
[2019-11-12 15:30] VITALS: BP 106/72; PULSE 71; RESP 16; TEMP 36.7; O2SAT 98
[2019-11-12 15:45] LABS: Bedside Glucose 147 mg/dL (70-110)
[2019-11-12] MEDS: predniSONE 20 MG Tablet PO (16:19)
[2019-11-12] MEDS: Pantoprazole Sodium 20 MG Tablet PO (16:20)
[2019-11-12] MEDS: Menthol/Lanolin/Calamine/Znox 113 GM Tube 1 APPLIC TOPICAL (16:20)
[2019-11-12] MEDS: Montelukast 10 MG Tablet PO (16:20)
[2019-11-12] MEDS: Sertraline 50 MG Tablet 25 MG PO (16:20)
[2019-11-12] MEDS: Sertraline 100 MG Tablet PO (16:20)
[2019-11-12] MEDS: Insulin Lispro 100 UNIT/ML INSULN.PEN 25 UNIT SC (16:28)
== END 2019-11-12 16:45 | disposition skilled nursing facility (03) | DRG 871 ==
LOC: ED 16:41 → PCU 17:20
PROVIDERS: Family Medicine; Hospitalist; Internal Medicine; Surgery; Admitting Provider Hospitalist; Emergency Provider Emergency Medicine; PCP Internal Medicine Geriatric Medicine; Visit Provider Family Medicine
DX: A41.9 Sepsis, unspecified organism (principal); N18.6 End stage renal disease; I13.2 Hypertensive heart and chronic kidney disease with heart failure and with stage 5 chronic kidney disease, or end stage renal disease; I50.32 Chronic diastolic (congestive) heart failure; E11.52 Type 2 diabetes mellitus with diabetic peripheral angiopathy with gangrene; I96 Gangrene, not elsewhere classified; G61.81 Chronic inflammatory demyelinating polyneuritis; Z68.41 Body mass index [BMI] 40.0-44.9, adult; G82.20 Paraplegia, unspecified; R65.20 Severe sepsis without septic shock; B96.4 Proteus (mirabilis) (morganii) as the cause of diseases classified elsewhere; B96.1 Klebsiella pneumoniae [K. pneumoniae] as the cause of diseases classified elsewhere; E11.622 Type 2 diabetes mellitus with other skin ulcer; L76.82 Other postprocedural complications of skin and subcutaneous tissue; L98.492 Non-pressure chronic ulcer of skin of other sites with fat layer exposed; E11.22 Type 2 diabetes mellitus with diabetic chronic kidney disease; L30.4 Erythema intertrigo; F32.9 Major depressive disorder, single episode, unspecified; F41.9 Anxiety disorder, unspecified; E66.01 Morbid (severe) obesity due to excess calories; I95.89 Other hypotension; E78.5 Hyperlipidemia, unspecified; D69.6 Thrombocytopenia, unspecified; K21.9 Gastro-esophageal reflux disease without esophagitis; E11.65 Type 2 diabetes mellitus with hyperglycemia; E65 Localized adiposity; D63.1 Anemia in chronic kidney disease; L89.899 Pressure ulcer of other site, unspecified stage; Z74.01 Bed confinement status; Z86.718 Personal history of other venous thrombosis and embolism; Z99.2 Dependence on renal dialysis; Z79.4 Long term (current) use of insulin; Z79.01 Long term (current) use of anticoagulants; Z79.899 Other long term (current) drug therapy; Z86.14 Personal history of Methicillin resistant Staphylococcus aureus infection
CPT/HCPCS: 36415; 70450; 71045; 74176; 80048; 80053; 80202; 82947; 82962; 83036; 83605; 84134; 84484; 85025; 85027; 85610; 87040; 87070; 87077; 87186; 87205; 87635; 87640; 87804; 87807; 87880; 90937; 93005; 93306; 97110; 97162; 97166; 97802; 99251; 99285; G2023; J7030; J7050; Q9957; A4216; C8929; G0257; G0463; U0002

== ENCOUNTER 2019-11-28 21:13 | Emergency (ER) | payer OTHER, MEDICAID, SELFPAY ==
[2019-11-03 18:00] VITALS: BMI 42.6
[2019-11-28 21:14] VITALS: BP 143/105; PULSE 97; RESP 14; TEMP 36.7; O2SAT 97; BMI 46.1
[2019-11-28 21:19] VITALS: BP 143/105; PULSE 96; RESP 14; TEMP 36.7; O2SAT 97
--- NOTE | 2019-11-28 22:03 | EKG12_ITS ---
Test Reason : Blood Pressure : / mmHG Vent. Rate : 092 BPM Atrial Rate : 092 BPM P-R Int : 148 ms QRS Dur : 084 ms QT Int : 384 ms P-R-T Axes : 047 -09 099 degrees QTc Int : 474 ms Normal sinus rhythm Voltage criteria for left ventricular hypertrophy T wave abnormality, consider lateral ischemia Abnormal ECG Confirmed by LAST KRUSE, RONNIE ([id number]), video effects editor ADRIEN FARRIS ([id number]) on 12/02/2019 2:06:07 PM Referred By: ALEXA Confirmed By:JIAN NI MD
--- NOTE | 2019-11-28 22:03 | CT_ITS ---
We are attempting to reach an attending provider to discuss findings. An addendum with communication details will be sent when the communication is complete. STUDY: CT BRAIN WITHOUT CONTRAST REASON FOR EXAM: Female, 59 years old. Lethargy, decreased loc, diffuse abdomen pain -- Hx:htn,esrd-on dialysis,diabetes,chf,hld,gerd,sepsis,mrsa -- Surgery:tubal,cholecystectomy RADIATION DOSAGE (If Supplied By Facility): CTDIvol = ( 44.99 ) mGy, DLP = ( 745.49 ) mGycm TECHNIQUE: Transaxial CT imaging of the brain was performed without administration of intravenous contrast material. Individualized dose optimization techniques were used for this CT. COMPARISON: CT brain noncontrast 11/03/2019. FINDINGS: Normal soft tissue structures. Normal calvarium. There is an acute round subcortical left frontal hemorrhage with mild surrounding edema measuring 2.5 x 2.4 x 1.9 cm with a volume of 2.3 cc. Image 25 series 2, image 45 series 602. Normal size ventricles and extra-axial spaces for the patient''s age. Normal white matter tracts of the cerebral hemispheres. Normal basal ganglia and thalami. Normal brainstem. Normal cerebellum. There is no intracranial hemorrhage. There are no findings of an acute ischemic infarction. Stable chronic sinus inflammation of the right sphenoid sinus. Intracranial arteriosclerosis of the carotid and vertebral arteries. CT/Brain/Head without Contrast IMPRESSION: Left frontal subcortical hemorrhage with mild edema as above. No evidence of mass effect shift or herniation. Chronic right sphenoiditis. Electronically Signed: Paula Adan MD at 23:51 EDT , Service support ,
--- NOTE | 2019-11-28 22:04 | CT_ITS ---
STUDY: CT ABDOMEN AND PELVIS WITHOUT CONTRAST REASON FOR EXAM: Female, 59 years old. DIFFUSE ABDOMEN PAIN.ELEVATED BP,LETHARGY,PT HAD DIALYSIS TODAY -- HX:ESRD-ON DIALYSIS,HTN,CHF,DIABETES,HLD,GERD,SEPSIS,MRSA -- SURGERY:CHOLECYSTECTOMY,TUBAL RADIATION DOSAGE (If Supplied By Facility): CTDIvol = ( 24.02 ) mGy, DLP = ( 1248.26 ) mGycm TECHNIQUE: Transaxial 2.5 mm images were obtained from the dome of the diaphragm to the symphysis pubis without oral contrast, and without intravenous contrast. Sagittal and coronal images were reconstructed. This examination is limited for the evaluation of gastrointestinal, solid organs and vascular structures due to the lack of intravenous and oral contrast. There is obesity, the entirety of soft tissue is not imaged. Individualized dose optimization techniques were used for this CT. COMPARISON: CT abdomen pelvis 11/05/2019. September 20, 2019. 04/25/2019 FINDINGS: Compression of basilar dependent parenchyma and platelike atelectasis in the right lower lobe. Catheter in the superior vena cava just superior to the right atrium. The visualized portions of the heart are within normal limits. There is low attenuation along the falciform ligament most consistent with focal fatty sparing. There is non-visualization of the gallbladder, which may be secondary to either contraction or a prior cholecystectomy. Normal spleen. Normal pancreas. Normal bilateral adrenal glands. Bilateral severe renal involution. There are small right renal cysts 1.2 cm in the upper pole, 1.2 x 1.3 cm in the mid kidney. The left upper pole contains a cyst of the by 3.5 cm and in the lower pole 0.8 cm. Normal visualized stomach. Normal small intestine. Normal colon. The appendix is visualized and appears normal. There is atherosclerosis of the abdominal aorta, greater branches and pelvic arteries without aneurysm or leak. There is diffuse small vessel atherosclerosis. Normal inferior vena cava. Normal retroperitoneum. Normal urinary bladder. There is atrophy of the uterus. Normal abdominal wall. There are diffuse degenerative changes of the visualized lumbar spine, bilateral hip and sacroiliac joints and osteopenia. CT/Abdomen/Pelvis without Cont IMPRESSION: There is no acute abdomen and pelvic pathology. Stable diffuse atherosclerosis including small vessels, bilateral severe renal involution, bilateral renal cysts. Electronically Signed: Paula Adan MD at 0:02 EDT , Service support ,
--- NOTE | 2019-11-28 22:04 | ED.DCSUM_ITS ---
History of Present Illness Chief Complaint: Alt LOC Informant: Patient Timing: Continuous Quality: lethargic Location: all over Current Severity: Severe Maximum Severity: Severe Narrative: Patient noted to be lethargic at shift change this evening at [facility] facility. Last seen normal unknown. Lethargic, has been like this in the past with sepsis. She has a wound in her right lower quadrant that is being cared for with packings. Little information is available since the patient is extremely lethargic. Looking at her chart, she appears to be on Eliquis for DVTs. - Past Medical History (1) Abdominal panniculus, symptomatic Status: Chronic (2) Anxiety and depression Status: Chronic (3) CIDP (chronic inflammatory demyelinating polyneuropathy) Status: Chronic (4) Calciphylaxis Status: Chronic (5) Chronic diastolic CHF (congestive heart failure) Status: Chronic (6) Chronic kidney disease Status: Chronic (7) Cutaneous abscess of abdominal wall Status: Chronic (8) DM2 (diabetes mellitus, type 2) Status: Chronic (9) ESRD on dialysis Status: Chronic (10) Essential hypertension Status: Chronic (11) Hyperlipidemia Status: Chronic (12) MRSA (methicillin resistant Staphylococcus aureus) Status: Chronic (13) Morbid obesity Status: Chronic (14) Wound, open, abdominal wall, anterior Status: Chronic (15) DVT (deep venous thrombosis) Status: Chronic Past Medical History - Allergies and Home Meds Allergies/Adverse Reactions: Allergies latex Allergy (Verified 11/28/19 21:20) Hives Sulfa (Sulfonamide Antibiotics) Allergy (Verified 11/28/19 21:20) Rash codeine Adverse Reaction (Verified 11/28/19 21:20) Confusion Primary Care Physician: Marcela Kerr MD [Primary Care Provider] - Surgical History: cholecystectomy, - - Letter tubal ligation, cholecystectomy, right upper extremity fistula placement and eventual ligation, bilateral upper chest dialysis catheters with right now left upper chest in place. Lives: [facility] Smoking Status: Never smoker - Family History Maternal Family History: Family History (Last Reviewed 10/23/19 @ 11:[address] Jacob Santana MD) Father Diabetes Mother Heart disease Family History: Reports: Cancer, Heart Disease Paternal Family History: Family History (Last Reviewed 10/23/19 @ 11:[address] Jacob Santana MD) Father Diabetes Mother Heart disease Family History: Reports: Diabetes, Heart Disease, Hypertension Sibling Family History: Family History (Last Reviewed 10/23/19 @ 11:[address] Jacob Santana MD) Father Diabetes Mother Heart disease Family History: Reports: Diabetes Review of Systems ROS: Unable to Obtain Physical Exam Vital Signs/Narrative: Vital Signs Temp Pulse Resp BP Pulse Ox 11/28/19 21:19 98.0 F 96 14 143/105 H 97 11/28/19 21:14 98.0 F 97 14 143/105 H 97 Inital Vital Signs reviewed: Yes General: Well nourished, Well developed, Obese, No Acute Distress Head: Normocephalic, Atraumatic Eyes: Perrl, EOMI ENT: Moist mucous membranes, No rhinorrhea Neck: Supple, Nontender Cardiovascular: Regular rate, Regular rhythm, No murmurs, - - Left upper chest dialysis catheter site is benign. Negative for: Tachycardia Respiratory: No distress, CTA bilaterally - *exam limited by morbid obesity*, Chest nontender Abdomen: Soft, Nondistended, Normal bowel sounds, Tender - diffusely, - - *exam limited by morbid obesity*. Negative for: Guarding, Rebound tenderness Back: Nontender, Normal Inspection Extremities: Nontender, No edema Skin: Normal color, No rash Neurological: Cranial nerves II-XII grossly intact, Normal Strength - moves all 4 ext's equally; symmetrically weak throughout; cannot resist gravity., Normal Sensation, Lethargic, - - GCS: E-3, M-6, V-2 = 11 Diagnostic/Tx/Re-eval Laboratory Tests 11/28/19 11/28/19 11/28/19 Range/Units 22:22 22:22 22:22 WBC (4.4-11.0) K/mm3 RBC (4.2-5.4) M/mm3 Hgb (12.0-15.0) g/dL Hct (37-47) % MCV (81-99) fL MCH (27.0-32.0) pg MCHC (32-36) g/dL RDW Std Deviation (35.1-43.9) fl RDW Coeff of Perico (11.6-14.6) % Plt Count (150-450) K/mm3 MPV (6.2-12.0) fl Neut % (Auto) Absolute Neuts (auto) (2.0-7.7) X10^3/uL Absolute Lymphs (auto) (0.83-4.51) X10^3/uL Total Counted (MANUAL DIFF) Neutrophils % (Manual) (47-70) % Band Neutrophils % (0-5) % Lymphocytes % (Manual) (19-41) % Monocytes % (Manual) (0-10) % Myelocytes % (0-0) Diff Path Review Platelet Estimate (ADEQ) RBC Morphology (NORM C&C) NORMAL Anisocytosis Macrocytosis PT 15.3 H (11.7-14.9) SECONDS INR 1.3 APTT 24.9 (24.1-36.2) Seconds Sodium 138 (136-145) mmol/L Potassium 4.9 (3.5-5.1) mmol/L Chloride 104 (98-107) mmol/L Carbon Dioxide 23.0 (21.0-32.0) mmol/L Anion Gap 11 (5-15) BUN 42 H (7-18) mg/dL Creatinine 4.27 H (0.55-1.02) mg/dL Estim Creat Clear Calc 11.50 ml/min Est GFR (MDRD) Af Amer 14 L (>60) mL/min Est GFR (MDRD) Non-Af 11 L (>60) mL/min BUN/Creatinine Ratio 9.8 L (10-20) RATIO Glucose 190 H (74-106) mg/dL Lactic Acid 2.5 H* (0.4-1.9) mmol/L Calcium 9.5 (8.5-10.1) mg/dL Total Bilirubin 0.40 (0.20-1.00) mg/dL AST 20 (15-37) U/L ALT 55 (13-56) U/L Alkaline Phosphatase 128 H (45-117) U/L Troponin I 0.162 H (<0.045) ng/mL Total Protein 6.8 (6.4-8.2) g/dL Albumin 3.6 (3.2-5.0) g/dL Globulin 3.2 (2.2-4.2) g/dL Albumin/Globulin Ratio 1.1 (0.9-2.4) RATIO /05/08 Range/Units 22:22 WBC 13.2 H (4.4-11.0) K/mm3 RBC 4.66 (4.2-5.4) M/mm3 Hgb 14.0 (12.0-15.0) g/dL Hct 44.1 (37-47) % MCV 94.6 (81-99) fL MCH 30.0 (27.0-32.0) pg MCHC 31.7 L (32-36) g/dL RDW Std Deviation 55.6 H (35.1-43.9) fl RDW Coeff of Perico 16.1 H (11.6-14.6) % Plt Count 111 L (150-450) K/mm3 MPV 13.3 H (6.2-12.0) fl Neut % (Auto) Not Reportable Absolute Neuts (auto) 10.4 H (2.0-7.7) X10^3/uL Absolute Lymphs (auto) 1.05 (0.83-4.51) X10^3/uL Total Counted 100 (MANUAL DIFF) Neutrophils % (Manual) 77 H (47-70) % Band Neutrophils % 2 (0-5) % Lymphocytes % (Manual) 8 L (19-41) % Monocytes % (Manual) 11 H (0-10) % Myelocytes % 2 H (0-0) Diff Path Review May foll Platelet Estimate SLT DEC (ADEQ) RBC Morphology N CHROM (NORM C&C) NORMAL Anisocytosis RARE Macrocytosis RARE PT (11.7-14.9) SECONDS INR APTT (24.1-36.2) Seconds Sodium (136-145) mmol/L Potassium (3.5-5.1) mmol/L Chloride (98-107) mmol/L Carbon Dioxide (21.0-32.0) mmol/L Anion Gap (5-15) BUN (7-18) mg/dL Creatinine (0.55-1.02) mg/dL Estim Creat Clear Calc ml/min Est GFR (MDRD) Af Amer (>60) mL/min Est GFR (MDRD) Non-Af (>60) mL/min BUN/Creatinine Ratio (10-20) RATIO Glucose (74-106) mg/dL Lactic Acid (0.4-1.9) mmol/L Calcium (8.5-10.1) mg/dL Total Bilirubin (0.20-1.00) mg/dL AST (15-37) U/L ALT (13-56) U/L Alkaline Phosphatase (45-117) U/L Troponin I (<0.045) ng/mL Total Protein (6.4-8.2) g/dL Albumin (3.2-5.0) g/dL Globulin (2.2-4.2) g/dL Albumin/Globulin Ratio (0.9-2.4) RATIO - Rhythm Strip Rhythm Strip: Sinus Rhythm Rate: 92 Ectopy: None - EKG Initial EKG Interpretation: Sinus Rhythm, No Acute Injury Pattern, Inverted T-Waves - lateral, - - anterior Q waves - Medical Decision Making Given limited history and available information, patient was into CT of head and abdomen/pelvis along with a chest x-ray. Her head CT appears to show left frontoparietal intracerebral hemorrhage without mass affect, or ventricular involvement. On reexamination after returning from CT, she is awake, conversive, neurologically intact, GCS 15. Labs are noted as above. She has chronic renal failure, does not produce urine, so we canceled the Vargas which was not placed. She is on Eliquis. The last dose is unknown, but I presume it was this morning, nursing is contacting [facility] to verify. She appears to be on that for DVT according to the paperwork that accompanies her from the [facility]. It also states that she is a full code. Her abdominal wound looks healthy and not infected. The patient preferred to stay as close as possible to this area but she will need transferred since we do not have neurosurgery capabilities at this hospital. Discussed with virgil Lucia, accepted to the ICU by Dr. Koehler. We do not have Andexxa at this hospital. They plan on giving it, so we are flying her there by helicopter to get her to the tertiary care center [facility]. Blood pressure at this time, 0015, is 139/93. - Critical Care Time Critical care time (excluding procedures): 30-74 minutes - 40 minutes, Including time spent:, Discussing w/Patient &/or Family/Offset Press Operator Helper, Discussing w/Consultants, Arranging Admission or Transfer, Performing Direct Patient Care at Bedside ED Disposition - Plan for ED Patient: Disposition: [facility] Diagnosis: Intracerebral hemorrhage, Anticoagulated, ESRD (end stage renal disease), Wound, open, abdominal wall, anterior Referrals: Marcela Kerr MD [Primary Care Provider] -
[2019-11-28 22:31] LABS: Hematocrit 44.1 % (37-47); Mean Corp Hgb Conc 31.7 g/dL (32-36); Mean Corpuscular Volume 94.6 fL (81-99); Mean Platelet Vol. 13.3 fl (6.2-12.0); POSITIVE COUNT YES; POSITIVE DIFFERENTIAL YES; POSITIVE MORPHOLOGY YES; Platelet Count 111 K/mm3 (150-450); RBC Distribution Width CV 16.1 % (11.6-14.6); RBC Distribution Width SD 55.6 fl (35.1-43.9); Red Blood Count 4.66 M/mm3 (4.2-5.4); White Blood Count 13.2 K/mm3 (4.4-11.0)
[2019-11-28 22:34] VITALS: BP 147/105; PULSE 89; RESP 13; TEMP 37.1; O2SAT 97
[2019-11-28 22:34] LABS: Differential Indicated MANUAL DIFF
[2019-11-28 22:36] VITALS: BP 147/105; PULSE 90; RESP 12; TEMP 37.1; O2SAT 97
[2019-11-28 22:39] LABS: International Normalized Ratio 1.3; Partial Thromboplast Time 24.9 Seconds (24.1-36.2); Prothrombin Time (Protime)PT. 15.3 SECONDS (11.7-14.9)
[2019-11-28 22:55] LABS: Neutrophil-Band 2 % (0-5); Neutrophil-Segmented 77 % (47-70); Total Cells Counted 100 (MANUAL DIFF)
[2019-11-28 22:56] LABS: Lymphocyte 8 % (19-41); Monocyte 11 % (0-10); Myelocyte 2 (0-0)
[2019-11-28 22:58] LABS: Absolute Lymphocyte Count 1.05 X10^3/uL (0.83-4.51); Absolute Neutrophil Count 10.4 X10^3/uL (2.0-7.7)
[2019-11-28 22:59] LABS: Anisocytosis RARE; Macrocytosis RARE; Platelet Estimate SLT DEC (ADEQ); Red Cell Morphology N CHROM NORMAL (NORM C&C)
[2019-11-28 23:07] LABS: ALB/GLOB Ratio 1.1 RATIO (0.9-2.4); AST(SGOT) 20 U/L (15-37); Alanine Aminotransfer ALT/SGPT 55 U/L (13-56); Albumin, Serum 3.6 g/dL (3.2-5.0); Alkaline Phosphatase 128 U/L (45-117); Anion Gap 11 (5-15); BUN 42 mg/dL (7-18); BUN/Creat Ratio 9.8 RATIO (10-20); Calcium,Total 9.5 mg/dL (8.5-10.1); Chloride 104 mmol/L (98-107); Creatinine, Serum 4.27 mg/dL (0.55-1.02); EST Glomerular Filtration Rate 11 mL/min (>60); Est Glom Filt Rate - Afr Amer 14 mL/min (>60); Globulin 3.2 g/dL (2.2-4.2); Glucose 190 mg/dL (74-106); Potassium 4.9 mmol/L (3.5-5.1); Protein, Total 6.8 g/dL (6.4-8.2); Sodium Level 138 mmol/L (136-145)
[2019-11-28 23:08] LABS: Lactic Acid 2.5 mmol/L (0.4-1.9)
[2019-11-28 23:09] VITALS: BP 145/102; PULSE 89; RESP 16; TEMP 37.1; O2SAT 98
--- NOTE | 2019-11-28 23:29 | RAD_ITS ---
STUDY: X-RAY CHEST REASON FOR EXAM: Female, 59 years old. PER SHELTER STAFF DECREASED LOC. PT ALERT TO SELF AND LOCATION ONLY, NORMALLY NO COGNITIVE DEFiCITS. TECHNIQUE: Single AP portable view of the chest. COMPARISON: 11/03/2019 FINDINGS: Stable temporary dialysis catheter via left internal jugular vein approach, with catheter tips over the superior vena cava. Atelectasis in the right base. There is no demonstrated pleural abnormality. Normal size heart. Normal mediastinum and adam. Normal visualized pulmonary arteries. Normal visualized aortic arch and descending thoracic aorta. Obscured thoracic spine. Normal visualized ribs, clavicles, and shoulders. Obesity. RAD/Chest 1 View (Portable) IMPRESSION: No acute cardiopulmonary disease. No significant interval change. Electronically Signed: Paula Adan MD at 0:03 EDT , Service support ,
[2019-11-28 23:55] VITALS: BP 136/93; PULSE 95; RESP 15; O2SAT 99
[2019-11-29 00:02] VITALS: BP 136/93; BP 139/93; PULSE 93; RESP 12; O2SAT 99
[2019-11-29 00:17] VITALS: BP 128/90; PULSE 92; RESP 16; O2SAT 98
--- NOTE | 2019-11-29 00:17 | ED.RN ---
THIS RN SPOKE WITH ANDREW AND UPDATED HIM ON PT CONDITION. HE VERBALIZED UNDERSTANDING OF HER CONDITION AND KNOWS THAT SHE IS BEING TRANSFERRED TO [facility]. PER HIS REQUEST I ATTEMPTED TO CALL DAUGHTER BUT WAS UNABLE TO REACH HER AND DID NOT LEAVE A MESSAGE.
[2019-11-29 00:42] VITALS: BP 137/97; PULSE 95; RESP 16; O2SAT 98
[2019-11-29 00:49] VITALS: BP 137/97; PULSE 95; RESP 16; O2SAT 96
[2019-11-29 02:26] LABS: Reflex Lactate? Y
[2019-11-29 11:50] LABS: Pathologist Review Reviewed
== END 2019-11-29 01:28 | disposition short-term general hospital (02) ==
PROVIDERS: Emergency Provider Emergency Medicine; PCP Internal Medicine Geriatric Medicine
DX: I61.0 Nontraumatic intracerebral hemorrhage in hemisphere, subcortical (principal); E11.22 Type 2 diabetes mellitus with diabetic chronic kidney disease; I13.2 Hypertensive heart and chronic kidney disease with heart failure and with stage 5 chronic kidney disease, or end stage renal disease; I50.32 Chronic diastolic (congestive) heart failure; N18.6 End stage renal disease; Z99.2 Dependence on renal dialysis; Z79.01 Long term (current) use of anticoagulants; S31.103A Unspecified open wound of abdominal wall, right lower quadrant without penetration into peritoneal cavity, initial encounter; X58.XXXA Exposure to other specified factors, initial encounter; Y93.9 Activity, unspecified; Y92.9 Unspecified place or not applicable; E66.01 Morbid (severe) obesity due to excess calories; G61.81 Chronic inflammatory demyelinating polyneuritis; F41.9 Anxiety disorder, unspecified; F32.9 Major depressive disorder, single episode, unspecified; E78.5 Hyperlipidemia, unspecified; Z86.14 Personal history of Methicillin resistant Staphylococcus aureus infection; Z86.718 Personal history of other venous thrombosis and embolism; Z79.4 Long term (current) use of insulin; Z79.899 Other long term (current) drug therapy
CPT/HCPCS: 70450; 71045; 74176; 80053; 83605; 84484; 85025; 85610; 85730; 87040; 93005; 96360; 99285; J7040; A4216

== ENCOUNTER → 2019-12-12 13:27 | Outpatient (CLI) | payer OTHER, MEDICAID, SELFPAY ==
[2019-08-19 10:16] VITALS: BMI 45.7
[2019-11-28 21:14] VITALS: BMI 46.1
== END ==
PROVIDERS: PCP Internal Medicine Geriatric Medicine; Referring Provider Surgery; Visit Provider Surgery
DX: Z00.00 Encounter for general adult medical examination without abnormal findings (principal)

== ENCOUNTER 2019-12-30 08:13 | Outpatient (RCR) | payer OTHER, MEDICAID, SELFPAY ==
[2019-12-30 08:33] VITALS: BP 103/54; PULSE 73; RESP 22; TEMP 36.7; BMI 46.1
--- NOTE | 2019-12-30 15:32 | PN.PCM_ITS ---
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 Status: Chronic Code(s): L98.492 - Non-pressure chronic ulcer of skin of other sites with fat layer exposed (2) Leg ulcer, left Status: Chronic Code(s): L97.929 - Non-pressure chronic ulcer of unspecified part of left lower leg with unspecified severity (3) Decubitus ulcer of left buttock Status: Chronic Code(s): L89.329 - Pressure ulcer of left buttock, unspecified stage (4) Abdominal panniculus, symptomatic Status: Chronic Code(s): E65 - Localized adiposity (5) ESRD on dialysis Status: Chronic Code(s): N18.6 - End stage renal disease; Z99.2 - Dependence on renal dialysis (6) Type 2 diabetes mellitus with other skin ulcer Status: Chronic Code(s): E11.622 - Type 2 diabetes mellitus with other skin ulcer; L98.499 - Non-pressure chronic ulcer of skin of other sites with unspecified severity Comment: nonhealing infected diabetic ulcerated abscesses right lateral abdominal wall (7) Anxiety and depression Status: Chronic Code(s): F41.9 - Anxiety disorder, unspecified; F32.9 - Major depressive disorder, single episode, unspecified (8) Morbid obesity Status: Chronic Code(s): E66.01 - Morbid (severe) obesity due to excess calories Type of Wound Date of Service: 12/30/19 Chief Complaint: Nonhealing diabetic ulcer right lower abdominal wall. History of Wound: Surgery 04/26/19 - Surgical preparation right lateral abdominal wall with incision and drainage and excisional debridement skin and subcutaneous tissue and fascia nonhealing infected diabetic necrotic ulcerated abscesses necrotizing soft tissue infection (377 cm2) and abdominal panniculectomy. Wound care - Dakin's moistened dressing to the large abdominal ulcer, that must be placed in the base of the ulcer. The excoriated area on the right lower abdomen skin fold is healed. The left abdominal cluster and a new right abdominal skin tear will place collagen hydrogel daily. The left groin/gluteal fold will place silver daily. New area on left upper buttock stage 2, will apply Silver daily. Operative culture - Proteus mirabilis, Pseudomonas aeroginosa, Staphylococcus aureus, and Anaerobic cocci. She was treated with Vancomycin and Zosyn in the hospital and was discharged on Cipro and Augmentin and has finished them. Repeat wound culture on 06/03/19 showed Proteus mirabilis, Anaerobic cocci, and Bacteroides fragilis. Wound cultures obtained 08/05/19 were positive for Proteus mirabilis, MRSA, Corynebacterium striatum, and Prevotella melaninogenica. She was placed on Augmentin and Zyvox. CT Abdomen/Pelvis from 04/25/19 showed 3.6 cm x 5.3 cm ill-defined soft tissue density in deep subcutaneous tissues overlying the posterior right lateral abdominal wall. The overlying skin is unremarkable.. Prealbumin from 04/29/19 was 19.1. Encouraged nutritional supplementation with protein to help the healing process. Today she denies fever. Her appetite is ok. - Physical Exam Vital Signs Temp Pulse Resp BP 98.1 F 73 22 H 103/54 L 12/30/19 08:33 12/30/19 08:33 12/30/19 08:33 12/30/19 08:33 General: Alert, Cooperative HEENT: Atraumatic Oral: Moist Mucosa Lungs: Normal air movement Cardiovascular: Regular rate Abdomen: Obese Extremities: Capillary Refill Less than 3 Seconds, Edema Skin: Ulcer/ Wound - Right lower abdomen ulcer, left abdomen with multiple scabbed areas that are in various stages of healing. Left lateral leg ulcer. Left gluteal fold ulcer. Left lower abdominal fold with small amount of seth akdown from skin rubbing against skin. Wound Measurements and Assessment WC - Nurse 1 - General Ulcer Measurement Start: 12/30/19 08:33 Freq: Status: Active Protocol: Activity Type Activity Date Activity User E-Sign Co-Sign Detail Recorded Client Recorded Date Recorded By Document 12/30/19 08:33 DL [id number] 12/30/19 08:58 DL 12/30/19 08:33 Wound Center Nurse 1 [Ulcer Assessment] #8 L Lat Lower Leg -Current Size (cm) - Length 4.1 -Current Size (cm) - Width 2.5 -Current Size (cm) - Depth 0.2 -Total Square Cm 10.25 -Photo Taken Yes -Classification - Thickness Full Thickness without Exposed Support Structure -Exudate Amt Small -Exudate Type Serosanguineous -Wound Margin Distinct, Outline Attached -Granulation Amt Medium (34-66%) -Granulation Quality Red -Necrosis Amt Small (1-33%) -Structure Exposed N/A -Texture (Leti-wound Skin Appearance) Scarring -Moisture (Leti-wound Skin Appearance No Abnormality ) -Color (Leti-wound Skin Appearance) No Abnormality -Temperature (Leti-wound Skin No Abnormality Appearance) (Pt Warm) -Tenderness on Palpation (Leti-wound No Skin Appearance) -Ulcer Cleansing Wound Cleanser -Foul Odor after Cleansing No -Anesthetic Used 4% Lidocaine Solution #7- L GLUTEAL FOLD -Current Size (cm) - Length 0.5 -Current Size (cm) - Width 0.6 -Current Size (cm) - Depth 0.1 -Total Square Cm 0.30 -Photo Taken No -Epithelialization Large 67-100% -Exudate Amt None Present -Wound Margin Distinct, Outline Attached -Granulation Amt Small (1-33%) -Granulation Quality [place] -Necrosis Amt Small (1-33%) -Necrotic Tissue Type Adherent Slough -Structure Exposed N/A -Texture (Leti-wound Skin Appearance) Scarring -Moisture (Leti-wound Skin Appearance Dry/Scaly ) -Color (Leti-wound Skin Appearance) No Abnormality -Temperature (Leti-wound Skin No Abnormality Appearance) (Pt Warm) -Tenderness on Palpation (Leti-wound No Skin Appearance) -Ulcer Cleansing Wound Cleanser -Foul Odor after Cleansing No -Anesthetic Used 4% Lidocaine Solution 5-left side abdomen -Current Size (cm) - Length 0.1 -Current Size (cm) - Width 0.1 -Current Size (cm) - Depth 0.1 -Total Square Cm 0.01 -Exudate Amt None Present -Wound Margin Flat & Intact -Granulation Amt Large (67-100%) -Granulation Quality [place] -Necrosis Amt None Present (0 %) -Structure Exposed N/A -Texture (Leti-wound Skin Appearance) Scarring -Moisture (Leti-wound Skin Appearance No Abnormality ) -Color (Leti-wound Skin Appearance) No Abnormality -Temperature (Leti-wound Skin No Abnormality Appearance) (Pt Warm) -Tenderness on Palpation (Leti-wound No Skin Appearance) -Ulcer Cleansing Wound Cleanser -Foul Odor after Cleansing No #4- R LOWER ABD- POST OP -Current Size (cm) - Length 5 -Current Size (cm) - Width 20 -Current Size (cm) - Depth 4.6 -Total Square Cm 100 -Exudate Amt Medium -Exudate Type Serosanguineous -Wound Margin Distinct, Outline Attached -Granulation Amt Large (67-100%) -Granulation Quality Red -Necrosis Amt Small (1-33%) -Necrotic Tissue Type Adherent Slough -Structure Exposed N/A -Texture (Leti-wound Skin Appearance) Scarring -Moisture (Leti-wound Skin Appearance No Abnormality ) -Color (Leti-wound Skin Appearance) No Abnormality -Temperature (Leti-wound Skin No Abnormality Appearance) (Pt Warm) -Tenderness on Palpation (Leti-wound No Skin Appearance) -Ulcer Cleansing Wound Cleanser -Foul Odor after Cleansing No -Anesthetic Used 4% Lidocaine Solution WC - Nurse 2 - General Ulcer CM Notes Start: 12/30/19 08:33 Freq: Status: Active Protocol: Activity Type Activity Date Activity User E-Sign Co-Sign Detail Recorded Client Recorded Date Recorded By Document 12/30/19 09:28 MARIA GUADALUPE [id number] 12/30/19 09:36 MARIA GUADALUPE 12/30/19 09:28 Wound Center Nurse 2 [Procedure/Treatment] #8 L Lat Lower Leg -Time 09:31 -Correct Patient Yes -Correct Side, Site, Position Yes -Correct Procedure Yes -Procedure Performed Yes -Type of Procedure Debridement -Clinical Debridement Subcutaneous -Post Debridement Size (cm) - Length 4 -Post Debridement Size (cm) - Width 2.8 -Post Debridement Size (cm) - Depth 0.5 -Total Square Cm 11.2 -Wound/Ulcer Outcome Not Healed -Ulcer Cleansing Rinsed/ Irrigated with Saline -Foul Odor after Cleansing No -Bioengineered Tissue No -Bleeding Controlled with Pressure -Offloading No -Treatment Response Procedure Tolerated Well #7- L GLUTEAL FOLD -Time 09:35 -Correct Patient Yes -Correct Side, Site, Position Yes -Correct Procedure Yes -Procedure Performed Yes -Type of Procedure Debridement -Clinical Debridement Subcutaneous -Post Debridement Size (cm) - Length 0.5 -Post Debridement Size (cm) - Width 1 -Post Debridement Size (cm) - Depth 0.3 -Total Square Cm 0.5 -Wound/Ulcer Outcome Not Healed -Ulcer Cleansing Rinsed/ Irrigated with Saline -Foul Odor after Cleansing No -Bioengineered Tissue No -Bleeding Controlled with Pressure -Offloading No -Treatment Response Procedure Tolerated Well 5-left side abdomen -Correct Patient No -Correct Side, Site, Position No -Correct Procedure No -Procedure Performed No #4- R LOWER ABD- POST OP -Time 09:29 -Correct Patient Yes -Correct Side, Site, Position Yes -Correct Procedure Yes -Procedure Performed Yes -Type of Procedure Debridement -Clinical Debridement Subcutaneous -Post Debridement Size (cm) - Length 5.0 -Post Debridement Size (cm) - Width 21 -Post Debridement Size (cm) - Depth 4.0 -Total Square Cm 105.0 -Wound/Ulcer Outcome Not Healed -Ulcer Cleansing Rinsed/ Irrigated with Saline -Foul Odor after Cleansing No -Bioengineered Tissue No -Bleeding Controlled with Pressure -Offloading No -Treatment Response Procedure Tolerated Well [See Physician Procedure note for Specifics] Pain Scale: 0-10 Numeric [Pain] -Is Patient Pain Free? Yes Musculoskeletal: No Tenderness to Palpation of Joints or Extremities Neurological: Neuro grossly intact Psych/Mental Status: Normal Affect, Appropriate Debridement Note Post-Debridement Measurements/Treatment WC - Nurse 2 - General Ulcer CM Notes Start: 12/30/19 08:33 Freq: Status: Active Protocol: Activity Type Activity Date Activity User E-Sign Co-Sign Detail Recorded Client Recorded Date Recorded By Document 12/30/19 09:28 MARIA GUADALUPE [id number] 12/30/19 09:36 MARIA GUADALUPE 12/30/19 09:28 Wound Center Nurse 2 #8 L Lat Lower Leg -Time 09:31 -Correct Patient Yes -Correct Side, Site, Position Yes -Correct Procedure Yes -Procedure Performed Yes -Type of Procedure Debridement -Clinical Debridement Subcutaneous -Post Debridement Size (cm) - Length 4 -Post Debridement Size (cm) - Width 2.8 -Post Debridement Size (cm) - Depth 0.5 -Total Square Cm 11.2 -Wound/Ulcer Outcome Not Healed -Ulcer Cleansing Rinsed/ Irrigated with Saline -Foul Odor after Cleansing No -Bioengineered Tissue No -Bleeding Controlled with Pressure -Offloading No -Treatment Response Procedure Tolerated Well #7- L GLUTEAL FOLD -Time 09:35 -Correct Patient Yes -Correct Side, Site, Position Yes -Correct Procedure Yes -Procedure Performed Yes -Type of Procedure Debridement -Clinical Debridement Subcutaneous -Post Debridement Size (cm) - Length 0.5 -Post Debridement Size (cm) - Width 1 -Post Debridement Size (cm) - Depth 0.3 -Total Square Cm 0.5 -Wound/Ulcer Outcome Not Healed -Ulcer Cleansing Rinsed/ Irrigated with Saline -Foul Odor after Cleansing No -Bioengineered Tissue No -Bleeding Controlled with Pressure -Offloading No -Treatment Response Procedure Tolerated Well 5-left side abdomen -Correct Patient No -Correct Side, Site, Position No -Correct Procedure No -Procedure Performed No #4- R LOWER ABD- POST OP -Time 09:29 -Correct Patient Yes -Correct Side, Site, Position Yes -Correct Procedure Yes -Procedure Performed Yes -Type of Procedure Debridement -Clinical Debridement Subcutaneous -Post Debridement Size (cm) - Length 5.0 -Post Debridement Size (cm) - Width 21 -Post Debridement Size (cm) - Depth 4.0 -Total Square Cm 105.0 -Wound/Ulcer Outcome Not Healed -Ulcer Cleansing Rinsed/ Irrigated with Saline -Foul Odor after Cleansing No -Bioengineered Tissue No -Bleeding Controlled with Pressure -Offloading No -Treatment Response Procedure Tolerated Well Pain Scale: 0-10 Numeric Is Patient Pain Free? Yes Wound debrided: lower abdomen ulcer Laterality: Right Type of Debridement: Excisional debridement Anesthesia Used: 4% Lidocaine Solution, 5% Lidocaine Gel Depth: Down to and including healthy tissue, in the subcutaneous layer Percentage of wound debrided: 100 Instrument Used: 7mm curette Tissue Removed: Subcutaneous tissue and slough Severity: Fat Layer Exposed Amount of bleeding with debridement: None Bleeding Controlled with: Pressure Patient tolerated procedure well - Additional Wound Wound debrided: left lateral leg ulcer Laterality: Left Type of Debridement: Excisional debridement Anesthesia Used: 5% Lidocaine Gel Depth: Down to and including healthy tissue, in the subcutaneous layer Percentage of wound debrided: 100 Instrument Used: 5mm curette Tissue Removed: Subcutaneous tissue and slough Severity: Fat Layer Exposed Amount of bleeding with debridement: Mild Bleeding Controlled with: Pressure Patient tolerated procedure: Patient tolerated procedure well - Additional Wound Wound debrided: gluteal fold ulcer Laterality: Left Type of Debridement: Excisional debridement Anesthesia Used: 4% Lidocaine Solution Depth: Down to and including healthy tissue, in the subcutaneous layer Percentage of wound debrided: 100 Instrument Used: 3mm curette Tissue Removed: Subcutaneous tissue and slough Severity: Fat Layer Exposed Amount of bleeding with debridement: Mild Bleeding Controlled with: Pressure Patient tolerated procedure: Patient tolerated procedure well - Additional Wound Wound debrided: lower abdomen skin fold ulcer Laterality: Left Type of Debridement: Excisional debridement Anesthesia Used: 5% Lidocaine Gel Depth: Down to and including healthy tissue, in the subcutaneous layer Percentage of wound debrided: 100 Instrument Used: 3mm curette Tissue Removed: Subcutaneous tissue and slough Severity: Fat Layer Exposed Amount of bleeding with debridement: Mild Bleeding Controlled with: Pressure Patient tolerated procedure: Patient tolerated procedure well Assessment/Plan Assessment: 1. 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 2. Painful insulin nodules abdominal wall. 3. Diabetes mellitus. 4. ESRD requiring dialysis. 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 6. Abdominal panniculus. 7. Abdominal wall skin crease intertrigo. 8. s/p surgical preparation right lateral abdominal wall with incision and drainage and excisional debridement skin and subcutaneous tissue and fascia nonhealing infected diabetic necrotic ulcerated abscesses necrotizing soft tissue infection (377 cm2) and abdominal panniculectomy. Plan: Wound care - Dakin's moistened dressing BID to the large abdominal ulcer, that must be placed in the base of the ulcer and dakin's to the left leg ulcer. Aquacel-Ag daily and prn to the left gluteal fold and the left lower abdominal fold ulcers. The excoriated area on the right lower abdomen skin fold is in various stages of healing. She recently was hospitalize in a [facility] for a stroke, she states that her only deficit is issues with her short term memory. She would benefit from operative intervention with excisional debridement and complex secondary wound closure. She would have drains in for several days and wear an abdominal binder. Patient is interested in surgical closure and voices understanding. There was a wound culture from 06/03/19 that showed Proteus mirabilis, Anaerobic cocci, and Bacteroides fragilis. She was placed on Augmentin and finished them. Wound culture from 08/05/19 was positive for Proteus mirabilis, MRSA, Corynebacterium striatum, and Prevotella melaninogenica. She was started on Augmentin and Zyvox. Prealbumin from 04/29/19 was 19.1. Encouraged nutritional supplementation with protein to help the healing process. Surgery will be done under general anesthesia with a surgical observation overnight stay in the hospital. Patient was informed of the risks and complications of the procedure including alternatives to surgery. These were discussed with her personally. She voices understanding and wishes to proceed. Followup 3 weeks. [id number]: [id number] Vicky subq tissue 20 sq cm/< Add On Codes: [id number] Vicky subq tissue add-on - x5
== END 2020-01-17 23:59 ==
LOC: WC 08:13
PROVIDERS: PCP Internal Medicine Geriatric Medicine; Visit Provider Nurse Practitioner Family
DX: E11.621 Type 2 diabetes mellitus with foot ulcer (principal); L98.492 Non-pressure chronic ulcer of skin of other sites with fat layer exposed; E11.22 Type 2 diabetes mellitus with diabetic chronic kidney disease; N18.6 End stage renal disease; Z99.2 Dependence on renal dialysis; E66.01 Morbid (severe) obesity due to excess calories; L97.822 Non-pressure chronic ulcer of other part of left lower leg with fat layer exposed; L30.4 Erythema intertrigo
CPT/HCPCS: 11042; 11045

== ENCOUNTER 2020-01-20 09:06 | Outpatient (RCR) | payer OTHER, MEDICAID, SELFPAY ==
[2020-01-18 00:40] VITALS: BP 103/54; PULSE 73; RESP 22; TEMP 36.7
[2020-01-20 10:22] VITALS: BP 116/78; PULSE 76; RESP 20; TEMP 35.7; BMI 46.1
--- NOTE | 2020-01-20 12:52 | PN.PCM_ITS ---
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 Status: Chronic Current Visit: No Code(s): L98.492 - Non-pressure chronic ulcer of skin of other sites with fat layer exposed (2) Left perineal ischial pressure ulcer Status: Acute Current Visit: Yes Code(s): L89.329 - Pressure ulcer of left buttock, unspecified stage (3) Pressure ulcer of right leg, unstageable Status: Acute Current Visit: Yes Code(s): L89.890 - Pressure ulcer of other site, unstageable (4) Decubitus ulcer of left buttock Status: Acute Current Visit: Yes Code(s): L89.329 - Pressure ulcer of left buttock, unspecified stage (5) Pressure injury of left leg, unstageable Status: Acute Current Visit: Yes Code(s): L89.890 - Pressure ulcer of other site, unstageable (6) ESRD on dialysis Status: Chronic Current Visit: Yes Code(s): N18.6 - End stage renal disease; Z99.2 - Dependence on renal dialysis (7) Blister of left heel Status: Acute Current Visit: Yes Code(s): S90.822A - Blister (nonthermal), left foot, initial encounter (8) Obesity Status: Chronic Current Visit: Yes Qualifiers: Obesity type: unspecified obesity type Obesity classification: unspecified obesity classification Serious obesity comorbidity presence: unspecified whether serious comorbidity present Qualified Code(s): E66.9 - Obesity, unspecified Code(s): E66.9 - Obesity, unspecified (9) DM2 (diabetes mellitus, type 2) Status: Chronic Current Visit: No Qualifiers: Diabetes mellitus senior care insulin use: with exterminator helper use Diabetes mellitus complication status: with kidney complications Diabetes mellitus complication detail: with chronic kidney disease Chronic kidney disease stage: stage 4 (severe) Qualified Code(s): E11.22 - Type 2 diabetes mellitus with diabetic chronic kidney disease; N18.4 - Chronic kidney disease, stage 4 (severe); Z79.4 - [facility] (current) use of insulin Code(s): E11.9 - Type 2 diabetes mellitus without complications Type of Wound Date of Service: 01/20/20 Chief Complaint: Nonhealing diabetic ulcer right lower abdominal wall. History of Wound: Surgery 04/26/19 - Surgical preparation right lateral abdominal wall with incision and drainage and excisional debridement skin and subcutaneous tissue and fascia nonhealing infected diabetic necrotic ulcerated abscesses necrotizing soft tissue infection (377 cm2) and abdominal panniculectomy. Right lower abdominal ulcer is stable. Left abdomen scabbed clusters stable. She comes in today with new ulcers: on left heel, left posterior and lateral leg, right lateral leg cluster, left gluteal fold cluster ulcers, left medial buttock ulcer. Wound care - Dakin's moistened dressing to the large abdominal ulcer, that must be placed in the base of the ulcer. Operative culture - Proteus mirabilis, Pseudomonas aeroginosa, Staphylococcus aureus, and Anaerobic cocci. She was treated with Vancomycin and Zosyn in the hospital and was discharged on Cipro and Augmentin and has finished them. Repeat wound culture on 06/03/19 showed Proteus mirabilis, Anaerobic cocci, and Bacteroides fragilis. Wound cultures obtained 08/05/19 were positive for Proteus mirabilis, MRSA, Corynebacterium striatum, and Prevotella melaninogenica. She was placed on Au gmentin and Zyvox. CT Abdomen/Pelvis from 04/25/19 showed 3.6 cm x 5.3 cm ill- defined soft tissue density in deep subcutaneous tissues overlying the posterior right lateral abdominal wall. The overlying skin is unremarkable.. Prealbumin from 04/29/19 was 19.1. Encouraged nutritional supplementation with protein to help the healing process. Today she denies fever. Her appetite is ok. Progress of Wound: Right lower abdominal ulcer is stable. Left abdomen scabbed areas stable. She comes in today with new ulcers: on left heel, left posterior and lateral leg, right lateral leg cluster, left gluteal fold cluster ulcers, left medial buttock ulcer. - Physical Exam Vital Signs Temp Pulse Resp BP 96.3 F L 76 20 H 116/78 01/20/20 10:22 01/20/20 10:22 01/20/20 10:22 01/20/20 10:22 General: Alert, Cooperative HEENT: Atraumatic Oral: Moist Mucosa Lungs: Normal air movement Cardiovascular: Regular rate Abdomen: Obese Extremities: Capillary Refill Less than 3 Seconds, Edema Skin: Ulcer/ Wound - Right lower abdominal ulcer is stable, pink. Left abdomen cluster scabbed areas. Ulcer on left heel is an intact blister. Ulcers on left posterior and lateral leg with eschar and odor. Right lateral leg cluster has dry, black scab. Left gluteal fold cluster ulcers at various stages of opening. Left medial buttock ulcer has an excoriated appearance. Wound Measurements and Assessment WC - Nurse 1 - General Ulcer Measurement Start: 01/20/20 10:22 Freq: Status: Active Protocol: Activity Type Activity Date Activity User E-Sign Co-Sign Detail Recorded Client Recorded Date Recorded By Document 01/20/20 10:22 DL [id number] 01/20/20 10:45 DL 01/20/20 10:22 Wound Center Nurse 1 [Ulcer Assessment] #14 R Post leg cluster -Current Size (cm) - Length 7 -Current Size (cm) - Width 7.3 -Current Size (cm) - Depth 0.1 -Total Square Cm 51.1 -Photo Taken Yes -Epithelialization Large 67-100% -Classification - Thickness Unclassifiable (Eschar Covered ) -Exudate Amt Small -Exudate Type Serosanguineous -Wound Margin Fibrotic Scar, Thickened Scar -Granulation Amt None Present (0 %) -Necrosis Amt Large (67-100%) -Necrotic Tissue Type Eschar -Structure Exposed N/A -Texture (Leti-wound Skin Appearance) Scarring -Moisture (Leti-wound Skin Appearance No Abnormality ) -Color (Leti-wound Skin Appearance) No Abnormality -Temperature (Leti-wound Skin No Abnormality Appearance) (Pt Warm) -Tenderness on Palpation (Leti-wound No Skin Appearance) -Ulcer Cleansing Wound Cleanser -Foul Odor after Cleansing No -Anesthetic Used 4% Lidocaine Solution #13 L Heel -Current Size (cm) - Length 2 -Current Size (cm) - Width 2.5 -Current Size (cm) - Depth 0.1 -Total Square Cm 5.0 -Photo Taken Yes -Classification - Thickness Unclassifiable (Eschar Covered ) -Exudate Amt Small -Exudate Type Serosanguineous -Wound Margin Fibrotic Scar, Thickened Scar -Granulation Amt None Present (0 %) -Necrosis Amt Large (67-100%) -Necrotic Tissue Type Eschar -Structure Exposed N/A -Texture (Leti-wound Skin Appearance) Scarring -Moisture (Leti-wound Skin Appearance No Abnormality ) -Color (Leti-wound Skin Appearance) No Abnormality, Erythema -Temperature (Leti-wound Skin No Abnormality Appearance) (Pt Warm) -Tenderness on Palpation (Leti-wound No Skin Appearance) -Ulcer Cleansing Wound Cleanser -Foul Odor after Cleansing No -Anesthetic Used 4% Lidocaine Solution #12 L Post leg -Current Size (cm) - Length 5.4 -Current Size (cm) - Width 2.4 -Current Size (cm) - Depth 0.2 -Total Square Cm 12.96 -Photo Taken Yes -Classification - Thickness Unclassifiable (Eschar Covered ) -Exudate Amt Small -Exudate Type Serosanguineous -Wound Margin Fibrotic Scar, Thickened Scar -Granulation Amt None Present (0 %) -Necrosis Amt Large (67-100%) -Necrotic Tissue Type Eschar -Structure Exposed N/A -Texture (Leti-wound Skin Appearance) Scarring -Moisture (Leti-wound Skin Appearance No Abnormality ) -Color (Leti-wound Skin Appearance) No Abnormality -Temperature (Leti-wound Skin No Abnormality Appearance) (Pt Warm) -Tenderness on Palpation (Leti-wound No Skin Appearance) -Ulcer Cleansing Wound Cleanser -Foul Odor after Cleansing No -Anesthetic Used 4% Lidocaine Solution #11 L Lat Lower Leg -Current Size (cm) - Length 5 -Current Size (cm) - Width 1.7 -Current Size (cm) - Depth 0.2 -Total Square Cm 8.5 -Photo Taken No -Exudate Amt Small -Wound Margin Fibrotic Scar, Thickened Scar -Necrosis Amt Large (67-100%) -Necrotic Tissue Type Eschar -Structure Exposed N/A -Texture (Leti-wound Skin Appearance) Scarring -Moisture (Leti-wound Skin Appearance No Abnormality ) -Color (Leti-wound Skin Appearance) No Abnormality -Temperature (Leti-wound Skin No Abnormality Appearance) (Pt Warm) -Tenderness on Palpation (Leti-wound No Skin Appearance) -Ulcer Cleansing Wound Cleanser -Foul Odor after Cleansing No -Anesthetic Used 4% Lidocaine Solution #10- L GLUTEAL FOLD -Current Size (cm) - Length 4 -Current Size (cm) - Width 1.5 -Current Size (cm) - Depth 0.1 -Total Square Cm 6.0 -Photo Taken No -Exudate Amt Medium -Exudate Type Serosanguineous -Wound Margin Distinct, Outline Attached -Granulation Amt Medium (34-66%) -Granulation Quality Red -Necrosis Amt Medium (34-66%) -Necrotic Tissue Type Adherent Slough -Texture (Leti-wound Skin Appearance) Scarring -Moisture (Leti-wound Skin Appearance No Abnormality ) -Color (Leti-wound Skin Appearance) Erythema,Rubor -Temperature (Leti-wound Skin No Abnormality Appearance) (Pt Warm) -Tenderness on Palpation (Leti-wound No Skin Appearance) -Ulcer Cleansing Wound Cleanser -Foul Odor after Cleansing No -Anesthetic Used 4% Lidocaine Solution #9-left side abdomen -Current Size (cm) - Length 0.1 -Current Size (cm) - Width 0.1 -Current Size (cm) - Depth 0.1 -Total Square Cm 0.01 -Photo Taken No -Exudate Amt None Present -Wound Margin Flat & Intact -Granulation Amt Large (67-100%) -Granulation Quality [place] -Necrosis Amt None Present (0 %) -Structure Exposed N/A -Texture (Leti-wound Skin Appearance) Scarring -Moisture (Leti-wound Skin Appearance No Abnormality ) -Color (Leti-wound Skin Appearance) No Abnormality -Temperature (Leti-wound Skin No Abnormality Appearance) (Pt Warm) -Tenderness on Palpation (Leti-wound No Skin Appearance) -Ulcer Cleansing Wound Cleanser -Foul Odor after Cleansing No #8- R LOWER ABD- POST OP -Current Size (cm) - Length 3 -Current Size (cm) - Width 23.5 -Current Size (cm) - Depth 4.5 -Total Square Cm 70.5 -Photo Taken No -Exudate Amt Medium -Exudate Type Serosanguineous -Wound Margin Distinct, Outline Attached -Granulation Amt Large (67-100%) -Granulation Quality Red -Necrosis Amt Small (1-33%) -Structure Exposed N/A -Texture (Leti-wound Skin Appearance) Scarring -Moisture (Leti-wound Skin Appearance No Abnormality ) -Color (Leti-wound Skin Appearance) No Abnormality -Temperature (Leti-wound Skin No Abnormality Appearance) (Pt Warm) -Tenderness on Palpation (Leti-wound No Skin Appearance) -Ulcer Cleansing Rinsed/ Irrigated with Saline -Foul Odor after Cleansing No -Anesthetic Used 4% Lidocaine Solution WC - Nurse 2 - General Ulcer CM Notes Start: 01/20/20 10:22 Freq: Status: Active Protocol: Activity Type Activity Date Activity User E-Sign Co-Sign Detail Recorded Client Recorded Date Recorded By Document 01/20/20 11:07 MARIA GUADALUPE [id number] 01/20/20 11:33 MARIA GUADALUPE 01/20/20 11:07 Wound Center Nurse 2 [Procedure/Treatment] 15-left medial buttucks -Time 11:11 -Correct Patient Yes -Correct Side, Site, Position Yes -Correct Procedure Yes -Procedure Performed Yes -Type of Procedure Debridement -Clinical Debridement Subcutaneous -Post Debridement Size (cm) - Length 5.5 -Post Debridement Size (cm) - Width 3 -Post Debridement Size (cm) - Depth 0.1 -Total Square (cm) 16.5 -Wound/Ulcer Outcome Not Healed -Ulcer Cleansing Rinsed/ Irrigated with Saline -Foul Odor after Cleansing No -Bioengineered Tissue No -Bleeding Controlled with Pressure -Other 40% debrided=6. 6cm2. -Offloading No -Treatment Response Procedure Tolerated Well #14 R Post leg cluster -Time 11:26 -Correct Patient Yes -Correct Side, Site, Position Yes -Correct Procedure Yes -Procedure Performed Yes -Type of Procedure Debridement -Clinical Debridement Selective -Post Debridement Size (cm) - Length 8 -Post Debridement Size (cm) - Width 8 -Post Debridement Size (cm) - Depth 0.2 -Total Square (cm) 64 -Wound/Ulcer Outcome Not Healed -Ulcer Cleansing Rinsed/ Irrigated with Saline -Foul Odor after Cleansing No -Bioengineered Tissue No -Bleeding Controlled with Pressure -Offloading No -Treatment Response Procedure Tolerated Well #13 L Heel -Correct Patient No -Correct Side, Site, Position No -Correct Procedure No -Procedure Performed No -Wound/Ulcer Outcome Not Healed -Ulcer Cleansing Rinsed/ Irrigated with Saline -Foul Odor after Cleansing No -Bioengineered Tissue No -Bleeding Controlled with Pressure -Other 1.8x3.0x0.1 deep tissue only -Offloading No -Treatment Response Procedure Tolerated Well #12 L Post leg -Time 11:18 -Correct Patient Yes -Correct Side, Site, Position Yes -Correct Procedure Yes -Procedure Performed Yes -Type of Procedure Debridement -Clinical Debridement Subcutaneous -Post Debridement Size (cm) - Length 4.5 -Post Debridement Size (cm) - Width 2.8 -Post Debridement Size (cm) - Depth 0.4 -Total Square (cm) 12.60 -Wound/Ulcer Outcome Not Healed -Ulcer Cleansing Rinsed/ Irrigated with Saline -Foul Odor after Cleansing No -Bioengineered Tissue No -Bleeding Controlled with Pressure -Offloading No -Treatment Response Procedure Tolerated Well #11 L Lat Lower Leg -Time 11:18 -Correct Patient Yes -Correct Side, Site, Position Yes -Correct Procedure Yes -Procedure Performed Yes -Type of Procedure Debridement -Clinical Debridement Subcutaneous -Post Debridement Size (cm) - Length 4.2 -Post Debridement Size (cm) - Width 2.7 -Post Debridement Size (cm) - Depth 0.4 -Total Square (cm) 11.34 -Wound/Ulcer Outcome Not Healed -Ulcer Cleansing Rinsed/ Irrigated with Saline -Foul Odor after Cleansing No -Bioengineered Tissue No -Bleeding Controlled with Pressure -Offloading No -Treatment Response Procedure Tolerated Well #10- L GLUTEAL FOLD -Time 11:08 -Correct Patient Yes -Correct Side, Site, Position Yes -Correct Procedure Yes -Procedure Performed Yes -Type of Procedure Debridement -Clinical Debridement Subcutaneous -Post Debridement Size (cm) - Length 5.5 -Post Debridement Size (cm) - Width 3 -Post Debridement Size (cm) - Depth 0.1 -Total Square (cm) 16.5 -Wound/Ulcer Outcome Not Healed -Ulcer Cleansing Rinsed/ Irrigated with Saline -Foul Odor after Cleansing No -Bioengineered Tissue No -Bleeding Controlled with Pressure -Other 40% debrided only -Offloading No -Treatment Response Procedure Tolerated Well #9-left side abdomen -Correct Patient No -Correct Side, Site, Position No -Correct Procedure No -Procedure Performed No -Wound/Ulcer Outcome Not Healed #8- R LOWER ABD- POST OP -Time 11:32 -Correct Patient Yes -Correct Side, Site, Position Yes -Correct Procedure Yes -Procedure Performed Yes -Type of Procedure Debridement -Clinical Debridement Muscle -Post Debridement Size (cm) - Length 3.0 -Post Debridement Size (cm) - Width 22 -Post Debridement Size (cm) - Depth 4.0 -Total Square (cm) 66.0 -Wound/Ulcer Outcome Not Healed -Ulcer Cleansing Rinsed/ Irrigated with Saline -Foul Odor after Cleansing No -Bioengineered Tissue No -Bleeding Controlled with Pressure -Offloading No -Treatment Response Procedure Tolerated Well [See Physician Procedure note for Specifics] Pain Scale: 0-10 Numeric [Pain] -Is Patient Pain Free? Yes Musculoskeletal: No Tenderness to Palpation of Joints or Extremities Neurological: Cranial nerves II-XII grossly intact Psych/Mental Status: Normal Affect, Appropriate Debridement Note Post-Debridement Measurements/Treatment WC - Nurse 2 - General Ulcer CM Notes Start: 01/20/20 10:22 Freq: Status: Active Protocol: Activity Type Activity Date Activity User E-Sign Co-Sign Detail Recorded Client Recorded Date Recorded By Document 01/20/20 11:07 MARIA GUADALUPE [id number] 01/20/20 11:33 MARIA GUADALUPE 01/20/20 11:07 Wound Center Nurse 2 15-left medial buttucks -Time 11:11 -Correct Patient Yes -Correct Side, Site, Position Yes -Correct Procedure Yes -Procedure Performed Yes -Type of Procedure Debridement -Clinical Debridement Subcutaneous -Post Debridement Size (cm) - Length 5.5 -Post Debridement Size (cm) - Width 3 -Post Debridement Size (cm) - Depth 0.1 -Total Square (cm) 16.5 -Wound/Ulcer Outcome Not Healed -Ulcer Cleansing Rinsed/ Irrigated with Saline -Foul Odor after Cleansing No -Bioengineered Tissue No -Bleeding Controlled with Pressure -Other 40% debrided=6. 6cm2. -Offloading No -Treatment Response Procedure Tolerated Well #14 R Post leg cluster -Time 11:26 -Correct Patient Yes -Correct Side, Site, Position Yes -Correct Procedure Yes -Procedure Performed Yes -Type of Procedure Debridement -Clinical Debridement Selective -Post Debridement Size (cm) - Length 8 -Post Debridement Size (cm) - Width 8 -Post Debridement Size (cm) - Depth 0.2 -Total Square (cm) 64 -Wound/Ulcer Outcome Not Healed -Ulcer Cleansing Rinsed/ Irrigated with Saline -Foul Odor after Cleansing No -Bioengineered Tissue No -Bleeding Controlled with Pressure -Offloading No -Treatment Response Procedure Tolerated Well #13 L Heel -Correct Patient No -Correct Side, Site, Position No -Correct Procedure No -Procedure Performed No -Wound/Ulcer Outcome Not Healed -Ulcer Cleansing Rinsed/ Irrigated with Saline -Foul Odor after Cleansing No -Bioengineered Tissue No -Bleeding Controlled with Pressure -Other 1.8x3.0x0.1 deep tissue only -Offloading No -Treatment Response Procedure Tolerated Well #12 L Post leg -Time 11:18 -Correct Patient Yes -Correct Side, Site, Position Yes -Correct Procedure Yes -Procedure Performed Yes -Type of Procedure Debridement -Clinical Debridement Subcutaneous -Post Debridement Size (cm) - Length 4.5 -Post Debridement Size (cm) - Width 2.8 -Post Debridement Size (cm) - Depth 0.4 -Total Square (cm) 12.60 -Wound/Ulcer Outcome Not Healed -Ulcer Cleansing Rinsed/ Irrigated with Saline -Foul Odor after Cleansing No -Bioengineered Tissue No -Bleeding Controlled with Pressure -Offloading No -Treatment Response Procedure Tolerated Well #11 L Lat Lower Leg -Time 11:18 -Correct Patient Yes -Correct Side, Site, Position Yes -Correct Procedure Yes -Procedure Performed Yes -Type of Procedure Debridement -Clinical Debridement Subcutaneous -Post Debridement Size (cm) - Length 4.2 -Post Debridement Size (cm) - Width 2.7 -Post Debridement Size (cm) - Depth 0.4 -Total Square (cm) 11.34 -Wound/Ulcer Outcome Not Healed -Ulcer Cleansing Rinsed/ Irrigated with Saline -Foul Odor after Cleansing No -Bioengineered Tissue No -Bleeding Controlled with Pressure -Offloading No -Treatment Response Procedure Tolerated Well #10- L GLUTEAL FOLD -Time 11:08 -Correct Patient Yes -Correct Side, Site, Position Yes -Correct Procedure Yes -Procedure Performed Yes -Type of Procedure Debridement -Clinical Debridement Subcutaneous -Post Debridement Size (cm) - Length 5.5 -Post Debridement Size (cm) - Width 3 -Post Debridement Size (cm) - Depth 0.1 -Total Square (cm) 16.5 -Wound/Ulcer Outcome Not Healed -Ulcer Cleansing Rinsed/ Irrigated with Saline -Foul Odor after Cleansing No -Bioengineered Tissue No -Bleeding Controlled with Pressure -Other 40% debrided only -Offloading No -Treatment Response Procedure Tolerated Well #9-left side abdomen -Correct Patient No -Correct Side, Site, Position No -Correct Procedure No -Procedure Performed No -Wound/Ulcer Outcome Not Healed #8- R LOWER ABD- POST OP -Time 11:32 -Correct Patient Yes -Correct Side, Site, Position Yes -Correct Procedure Yes -Procedure Performed Yes -Type of Procedure Debridement -Clinical Debridement Muscle -Post Debridement Size (cm) - Length 3.0 -Post Debridement Size (cm) - Width 22 -Post Debridement Size (cm) - Depth 4.0 -Total Square (cm) 66.0 -Wound/Ulcer Outcome Not Healed -Ulcer Cleansing Rinsed/ Irrigated with Saline -Foul Odor after Cleansing No -Bioengineered Tissue No -Bleeding Controlled with Pressure -Offloading No -Treatment Response Procedure Tolerated Well Pain Scale: 0-10 Numeric Is Patient Pain Free? Yes Wound debrided: lower abdomen ulcer Laterality: Right Type of Debridement: Excisional debridement Anesthesia Used: 4% Lidocaine Solution, 5% Lidocaine Gel Depth: Down to and including healthy tissue, in the subcutaneous layer, to muscle Percentage of wound debrided: 100 Instrument Used: 7mm curette Tissue Removed: Subcutaneous tissue and slough into the muscle Severity: Fat Layer Exposed Amount of bleeding with debridement: Mild Bleeding Controlled with: Pressure Patient tolerated procedure well - Additional Wound Wound debrided: Right lateral/posterior leg cluster ulcers Laterality: Right Wound Grade/Stage: unstagable Type of Debridement: Selective debridement Anesthesia Used: 4% Lidocaine Solution Percentage of wound debrided: 70 Instrument Used: - - moistened gauze Tissue Removed: Slough and biofilm Severity: Limited To Skin Breakdown Amount of bleeding with debridement: None Patient tolerated procedure: Patient tolerated procedure well - Additional Wound Wound debrided: Left posterior and lateral leg ulcers Laterality: Left Wound Grade/Stage: unstagable Type of Debridement: Excisional debridement Anesthesia Used: 4% Lidocaine Solution Depth: Down to and including healthy tissue, in the subcutaneous layer Percentage of wound debrided: 100 Instrument Used: 5mm curette, #10 blade Tissue Removed: Eschar, subcutaneous tissue and slough Severity: Fat Layer Exposed Amount of bleeding with debridement: Mild Bleeding Controlled with: Pressure Patient tolerated procedure: Patient tolerated procedure well - Additional Wound Wound debrided: gluteal fold ulcer cluster Laterality: Left Type of Debridement: Excisional debridement Anesthesia Used: 4% Lidocaine Solution Depth: Down to and including healthy tissue, in the subcutaneous layer Percentage of wound debrided: 10 Instrument Used: 3mm curette Tissue Removed: Subcutaneous tissue and slough Severity: Fat Layer Exposed Amount of bleeding with debridement: Mild Bleeding Controlled with: Pressure Patient tolerated procedure: Patient tolerated procedure well - Additional Wound Wound debrided: medial buttock ulcer Laterality: Left Type of Debridement: Excisional debridement Anesthesia Used: 4% Lidocaine Solution Depth: Down to and including healthy tissue, in the subcutaneous layer Percentage of wound debrided: 40 Instrument Used: 5mm curette Tissue Removed: Subcutaneous tissue and slough Severity: Limited To Skin Breakdown Amount of bleeding with debridement: Mild Bleeding Controlled with: Pressure - Additional Wound Wound debrided: Left heel and left abdomen NOT debrided Assessment/Plan Active Problems (Last Updated 11/03/19 @ 17:[address] Toma Naylor MD) Leg ulcer, left (Chronic) Decubitus ulcer of left buttock (Acute) Left perineal ischial pressure ulcer (Acute) Pressure ulcer of right leg, unstageable (Acute) Blister of left heel (Acute) Pressure injury of left leg, unstageable (Acute) ESRD on dialysis (Chronic) Obesity (Chronic) Assessment: 1. 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 2. Painful insulin nodules abdominal wall. 3. Diabetes mellitus. 4. ESRD requiring dialysis. 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 6. Abdominal panniculus. 7. Abdominal wall skin crease intertrigo. 8. s/p surgical preparation right lateral abdominal wall with incision and drainage and excisional debridement skin and subcutaneous tissue and fascia nonhealing infected diabetic necrotic ulcerated abscesses necrotizing soft tissue infection (377 cm2) and abdominal panniculectomy. Plan: Wound care - Dakin's moistened dressing BID to the right lower large abdominal ulcer, that must be placed in the base of the ulcer. Left heel and right posterior/lateral leg cluster ulcers will place betadine daily to these areas. Left lateral and left posterior leg ulcer cultured and will start Santyl nickel thickness daily to the area. Depending on the culture results, it may necessitate the need of antibiotics. Left gluteal fold cluster and left medial buttock ulcers place collagen hydrogel with adaptic daily and prn. Arterial studies ordered. She recently was hospitalize in a [facility] for a stroke, she states that her only deficit is issues with her short term memory. She would benefit from operative intervention with excisional debridement and complex secondary wound closure. She would have drains in for several days and wear an abdominal binder. Patient is interested in surgical closure and voices understanding. There was a wound culture from 06/03/19 that showed Proteus mirabilis, Anaerobic cocci, and Bacteroides fragilis. She was placed on Augmentin and finished them. Wound culture from 08/05/19 was positive for Proteus mirabilis, MRSA, Corynebacterium striatum, and Prevotella melaninogenica. She was started on Augmentin and Zyvox. Prealbumin from 04/29/19 was 19.1. Encouraged nutritional supplementation with protein to help the healing process. Surgery will be done under general anesthesia with a surgical observation overnight stay in the hospital. Patient was informed of the risks and complications of the procedure including alternatives to surgery. These were discussed with her personally. She voices understanding and wishes to proceed. Followup 2 weeks. [id number] and [id number] x1 - Left leg and left buttocks [id number] and 48529 x 3 right abdomen ulcer 77843 and 99772 x3 selective debridement right leg
--- NOTE | 2020-01-23 15:48 | WC ---
TC FROM [facility]. N.O. TO CONSULT DR LAROSE FOR PT, D/T RECENT WOUND CX RESULTS AND CURRENT RENAL FUNCTION. JAMAR NOTIFIED TO CALL DR SUN'S OFFICE TO SET UP OFFICE VISIT HERE. WILL FAX NOTES IF REQUESTED.
== END 2020-02-17 23:59 ==
LOC: WC 09:06
PROVIDERS: PCP Internal Medicine Geriatric Medicine; Visit Provider Nurse Practitioner Family
DX: E11.621 Type 2 diabetes mellitus with foot ulcer (principal); E11.22 Type 2 diabetes mellitus with diabetic chronic kidney disease; N18.6 End stage renal disease; Z99.2 Dependence on renal dialysis; E66.9 Obesity, unspecified; L98.492 Non-pressure chronic ulcer of skin of other sites with fat layer exposed; L97.429 Non-pressure chronic ulcer of left heel and midfoot with unspecified severity; E11.622 Type 2 diabetes mellitus with other skin ulcer; L89.329 Pressure ulcer of left buttock, unspecified stage; L89.890 Pressure ulcer of other site, unstageable
CPT/HCPCS: 11042; 11043; 11045; 11046; 87070; 87075; 87186; 87205; 97597; 97598